=== PATIENT | female | born 1995 | race Caucasian/White ===

== ENCOUNTER → 2018-01-09 14:09 | Outpatient (CLI) | payer OTHER, SELFPAY ==
[2018-01-09 16:04] LABS: CRP < 2.90 mg/L (0.0-3.0)
[2018-01-11 19:07] LABS: Endomysial Antibody IgA Negative (Negative); Immunoglobulin A 80 mg/dL (87-352)
[2018-01-12 11:42] LABS: t-Transglutaminase IgA <2 U/mL (0-3)
== END ==
PROVIDERS: Family Provider Family Medicine; PCP Family Medicine; Referring Provider Internal Medicine Gastroenterology; Visit Provider Internal Medicine Gastroenterology
DX: R10.9 Unspecified abdominal pain (principal)
CPT/HCPCS: 36415; 82784; 83516; 86140; 86255

== ENCOUNTER → 2018-01-23 08:32 | Outpatient (CLI) | payer OTHER, SELFPAY ==
--- NOTE | 2018-01-23 08:36 | RAD_ITS ---
PROCEDURE: SMALL BOWEL SERIES DATE OF EXAMINATION: January 23, 2018.. INDICATION: Female, 22 years old. Left upper quadrant and right lower quadrant pain. IBS. PHYSICIAN: Adolfo Saenz M.D. TECHNIQUE: Radiographic and fluoroscopic images were taken of the small intestine following the ingestion of barium. COMPARISON: None. FINDINGS: A preliminary supine KUB was obtained. Moderate amount of fecal material is seen in the colon. The osseous structures are normal. The patient orally ingested approximately 12 ounces of thin barium Normal visualized fundus, body, and antrum of the stomach. Normal duodenal bulb, C-loop, and proximal jejunum. Normal visualized mucosal folds of the jejunum and ileum. There are no demonstrated dilatations, strictures, or masses of the small intestine. There is no mass displacement of the loops of small intestine. There is a normal motor pattern with barium reaching the colon within approximately 30 minutes. Spot films under fluoroscopic observation demonstrated a normal terminal ileum and ileocecal valve. RAD/Small Bowel Series Only IMPRESSION: Normal small bowel series. Electronically Signed: Adolfo Saenz MD at 13:23 EST Tel [phone], Service support ,
[2018-01-23 13:27] LABS: T4 Free Direct 0.97 ng/dL (0.76-1.46); Thyroid Stim Hormone (TSH) 1.29 uIU/mL (0.358-3.74)
--- OUTSIDE RECORDS SUMMARY | 2018-04-26 09:05 | XMS RPT_ITS ---
:1995 Author Organization [place] Support Name Relationship Address Phone CONNER KWAN Unavailable [address] + [place] [address] [facility] Unavailable [address] + [place] [address] AQUILESCONNER Unavailable [address] + [place] [address] JACOB YOUNG Unavailable [address] + [place] [address] [facility] Unavailable [address] + [place] [address] CONNER KWAN Unavailable Unavailable + JACOB YOUNG Unavailable [address] + [place] [address] JACOB YOUNG Unavailable [address] + [place] [address] CONNER KWAN Unavailable Unavailable + JACOB YOUNG Unavailable [address] + [place] [address] JACOB YOUNG Unavailable [address] + [place] [address] CONNER KWAN Unavailable Unavailable + JACOB YOUNG Unavailable [address] + [place] [address] JACOB YOUNG Unavailable [address] + [place] [address] CONNER KWAN Unavailable Unavailable + JACOB YOUNG Unavailable [address] + [place] [address] JACOB YOUNG Unavailable [address] + [place] [address] CONNER KWAN Unavailable Unavailable + JACOB YOUNG Unavailable [address] + [place] [address] JACOB YOUNG Unavailable [address] + [place] [address] CONNER KWAN Unavailable Unavailable + JACOB YOUNG Unavailable [address] + [place] [address] JACOB YOUNG Unavailable [address] + [place] [address] CONNER KWAN Unavailable Unavailable + JACOB YOUNG Unavailable [address] + [place] [address] JACOB YOUNG Unavailable [address] + [place] [address] CONNER KWAN Unavailable Unavailable + JACOB YOUNG Unavailable [address] + [place] [address] JACOB YOUNG Unavailable [address] + [place] [address] CONNER KWAN Unavailable Unavailable + JACOB YOUNG Unavailable [address] + [place] [address] JACOB YOUNG Unavailable [address] + [place] [address] CONNER KWAN Unavailable Unavailable + JACOB YOUNG Unavailable [address] + [place] [address] JACOB YOUNG Unavailable [address] + [place] [address] Care Team Providers Name Role Phone MENDEZ ALCANTARA MD Attending Unavailable MEDNEZ ALCANTARA MD Primary Care Unavailable KINSEY HERZOG MD Attending MENDEZ Melgar MD Primary Care Unavailable MENDEZ ALCANTARA MD Attending Unavailable MENDEZ ALCANTARA MD Primary Care Unavailable KINSEY HERZOG MD Attending Unavailable MENDEZ ALCANTARA MD Primary Care Unavailable KINSEY HERZOG MD Attending Unavailable MENDEZ ALCANTARA MD Primary Care Unavailable MENDEZ ALCANTARA MD Attending Unavailable MENDEZ ALCANTARA MD Primary Care Unavailable KINSEY HERZOG MD Attending Unavailable MENDEZ ALCANTARA MD Primary Care Unavailable CORINNE PRINCE, MSRosita GROSSMAN Attending Unavailable MENDEZ ALCANTARA MD Primary Care Unavailable CORINNE PRINCE, MSRosita GROSSMAN Attending Unavailable MENDEZ ALCANTARA MD Primary Care Unavailable CORINNE PRINCE, MSRosita GROSSMAN Attending Unavailable MENDEZ ALCANTARA MD Primary Care Unavailable Ming, Dereck Attending Unavailable Ming, Dereck Referring Unavailable MENDEZ ALCANTARA Primary Care Unavailable Jabour, Dereck Attending Unavailable Jakalee, Dereck Referring Unavailable MENDEZ ALCANTARA Primary Care Unavailable PROBLEMS PROBLEMS DATE TYPE CONDITION / CODE ATTENDING STATUS SOURCE 01/23/2018 Unknown E03.9 - Jabour, Dereck Active [place] Hypothyroidism, [facility] unspecified / Hospital E03.9(ICD-10) Repository 10/17/2017 Admitting Right lower CORINNE PRINCE, MS. Active [facility] Diagnosis quadrant pain / [facility] R10.31(ICD-10) Repository 07/16/2017 Admitting Low back pain / ROSENDA ROSA, Active [facility] Diagnosis M54.5(ICD-10) [facility] Repository 07/06/2017 Admitting Hypothyroidism, MARICRUZ ROSA, Active [facility] Diagnosis unspecified / MENDEZ Tam [facility] E03.9(ICD-10) Repository 06/20/2017 Admitting Dysuria / ROSENDA ROSA, Active [facility] Diagnosis R30.0(ICD-10) [facility] Repository PROCEDURES PROCEDURES No Procedure Records FoundRESULTS RESULTS THYROID STIM HORMONE Collected: 01/23/2018 Status: F Source: [facility] (TSH) 11:36 AM [facility] REPOSITORY TYPE CODE TESTS RESULT OUT OF RANGE REFERENCE UNITS LAB L501.9520 0.358-3.74 uIU/mL Normal TSH 1.29 Performed By: #### L501.9520, L506.0400 #### [facility] [address] [place], [place], [address] T4 FREE DIRECT Collected: 01/23/2018 Status: F Source: ALEXA 11:36 AM [facility] REPOSITORY TYPE CODE TESTS RESULT OUT OF RANGE REFERENCE UNITS LAB L506.0400 0.76-1.46 ng/dL Normal T4 FREE 0.97 DIRECT Performed By: #### L501.9520, L506.0400 #### [facility] [address] [place], [address] SMALL BOWEL SERIES Observed: 01/23/2018 Status: F Source: ALEXA ONLY 8:36 AM [facility] REPOSITORY [facility] Imaging Services [address] [address] Small Bowel Series Only MR#: [id number] Acct: [id number] Name: NIKUNJ KWAN Rep #: [id number] : 1995 F 22 From: Adolfo Saenz MD PCP: Mendez Alcantara MD Status: REG CLI Study: Small Bowel Series Only Date of Exam: 01/23/18 Exam# [id number] Ordering Dr: Dereck Lai MD PROCEDURE: SMALL BOWEL SERIES DATE OF EXAMINATION: January 23, 2018.. INDICATION: Female, 22 years old. Left upper quadrant and right lower quadrant pain. IBS. PHYSICIAN: Adolfo Saenz M.D. TECHNIQUE: Radiographic and fluoroscopic images were taken of the small intestine following the ingestion of barium. COMPARISON: None. FINDINGS: A preliminary supine KUB was obtained. Moderate amount of fecal material is seen in the colon. The osseous structures are normal. The patient orally ingested approximately 12 ounces of thin barium Normal visualized fundus, body, and antrum of the stomach. Normal duodenal bulb, C-loop, and proximal jejunum. Normal visualized mucosal folds of the jejunum and ileum. There are no demonstrated dilatations, strictures, or masses of the small intestine. There is no mass displacement of the loops of small intestine. There is a normal motor pattern with barium reaching the colon within approximately 30 minutes. Spot films under fluoroscopic observation demonstrated a normal terminal ileum and ileocecal valve. RAD/Small Bowel Series Only IMPRESSION: Normal small bowel series. Electronically Signed: Adolfo Saenz MD at 13:23 EST Tel [phone], Service support , CC: Mendez Alcantara MD; Dereck Lai Cob Sawyer: Signed CRP Collected: 01/09/2018 Status: F Source: SERAFINA 2:17 PM [facility] REPOSITORY TYPE CODE TESTS RESULT OUT OF RANGE REFERENCE UNITS LAB L501.6710 0.0-3.0 mg/L Normal < 2.90 C-REACTIVE PROT Result Comment: C-Reactive Protein (CRP) provides useful information for the diagnosis, therapy and monitoring of inflammatory processes and associated diseases. For the evaluation of Relative Risk for Cardiovascular Disease, a High Sensitivity CRP (HSCRP) should be ordered. Performed By: #### L501.6710 #### [facility] [address] [place], [place], [address] CELIAC DISEASE Collected: 01/09/2018 Status: F Source: SERAFINA PROFILE 2:17 PM [facility] REPOSITORY TYPE CODE TESTS RESULT OUT OF RANGE REFERENCE UNITS LAB L3200.1400 87-352 mg/dL Low IMMUNO A 80 LAB L3410.2900 0-3 U/mL Normal tTG IGA <2 Result Comment: Negative 0 - 3 Weak Positive 4 - 10 Positive >10 Tissue Transglutaminase (tTG) has been identified as the endomysial antigen. Studies have demonstr- ated that endomysial IgA antibodies have over 99% specificity for gluten sensitive enteropathy. LAB L3410.2975 Negative Normal ENDOMYSIAL IGA Negative Performed By: #### L3410.2400 #### [facility] (refer to report for specific site) refer to report for address and phone number US ABDOMEN COMPLETE Observed: 10/25/2017 Status: F Source: [facility] 5:00 PM [facility] REPOSITORY ORIGINAL ULTRASOUND ABDOMEN COMPLETE CLINICAL STATEMENT: RLQ PAIN COMPARISON: CT 03/28/2011 FINDINGS: The liver is normal in size and echogenicity. There is no intra or extrahepatic bile duct dilatation. The common duct is 3 mm at the gonzalo hepatis. The gallbladder is sonographically normal without calculus, wall thickening or tenderness. The visualized pancreas is unremarkable although its tail portion is obscured by bowel gas artifacts. The splee n is normal in size and echogenicity. No ascites. Limited survey images of the kidneys show normal echogenicity and no pelvicaliectasis. . Visualized IVC and aorta are not abnormally dilated. IMPRESSION: No significant findings. Interpreted By: Denys Thomas MD Preliminary Report By: Denys Thomas MD Electronically Signed By: Denys Thomas MD Dictated Date: 10/26/2017 10:20:08 AM Prelim Date: 10/26/2017 10:20:08 AM Sign Date: 10/26/2017 10:25:19 AM CMP Collected: 10/17/2017 Status: F Source: [facility] 2:27 PM [facility] REPOSITORY TYPE CODE TESTS RESULT OUT OF REFERENCE UNITS RANGE LAB GLU(LOINC) 70-105 mg/dL Glucose Level 87 LAB NA(LOINC) 136-145 mmol/L Sodium Level 140 LAB K(LOINC) 3.5-5.1 mmol/L Potassium Level 4.3 LAB CL(LOINC) 98-107 mmol/L Chloride 103 LAB CO2(LOINC) 22-29 mmol/L CO2 26 LAB EBAL(LOINC mEq/L ) Electrolyte Balance 11.0 LAB BUN(LOINC) 7-18 mg/dL BUN 11 LAB CRE(LOINC) 0.55-1.02 mg/dL Creatinine Lvl (s) 0.85 LAB BC(LOINC) 7-27 ratio BUN/Creatinine 13 Ratio LAB CA(LOINC) 8.4-10.2 mg/dL Calcium Lvl 9.4 LAB PROT(LOINC 6.4-8.2 G/dL ) Total Protein 7.3 LAB ALB(LOINC) 3.5-5.0 G/dL Albumin Level 4.4 LAB GLB(LOINC) G/dL Globulin 2.9 LAB AG(LOINC) 1.1-2.5 ratio A/G Ratio 1.5 LAB BILT(LOINC 0.2-1.0 mg/dL ) Bili Total 0.7 LAB AP(LOINC) 40-135 U/L Alk Phos 71 LAB AST(LOINC) 10-40 U/L AST/SGOT 18 LAB ALT(LOINC) 10-35 U/L ALT/SGPT 30 Performed By: #### CMP, GFR #### [address] [address] #### CBC, ADIFF, ANEU #### [address] [address] .GFR Collected: 10/17/2017 Status: F Source: [facility] 2:27 PM [facility] REPOSITORY TYPE CODE TESTS RESULT OUT OF REFERENCE UNITS RANGE LAB GFRAA(LOINC ml/min/1.73 ) sqm GFR 101 Trinidadian Result Comment: GFR Population mean for , Non- Americans Ages 20-29 = 116 mL/min/1.73 sq.m. Ages 30-39 = 107 mL/min/1.73 sq.m. Ages 40-49 = 99 mL/min/1.73 sq.m. Ages 50-59 = 93 mL/min/1.73 sq.m. Ages 60-69 = 85 mL/min/1.73 sq.m. Ages 70+ = 75 mL/min/1.73 sq.m. Chronic Kidney Disease: Less than 60 mL/min/1.73 square meters End Stage Renal Disease: Less than 15 mL/min/1.73 square meters LAB GFRNO(LOINC) ml/min/1.73sqm GFR Non- 84 Result Comment: GFR Population mean for , Non- Americans Ages 20-29 = 116 mL/min/1.73 sq.m. Ages 30-39 = 107 mL/min/1.73 sq.m. Ages 40-49 = 99 mL/min/1.73 sq.m. Ages 50-59 = 93 mL/min/1.73 sq.m. Ages 60-69 = 85 mL/min/1.73 sq.m. Ages 70+ = 75 mL/min/1.73 sq.m. Chronic Kidney Disease: Less than 60 mL/min/1.73 square meters End Stage Renal Disease: Less than 15 mL/min/1.73 square meters Performed By: #### CMP, GFR #### [facility] [address] [place] [address] #### CBC, ADIFF, ANEU #### [address] [address] CBC Collected: 10/17/2017 Status: F Source: [facility] 2:27 PM [facility] REPOSITORY TYPE CODE TESTS RESULT OUT OF REFERENCE UNITS RANGE LAB WBC(LOINC) 4.60-10.80 10 3/mcL WBC 6.90 LAB RBCCT(LOINC 4.20-5.40 10 6/mcL ) RBC 4.91 LAB HGB(LOINC) 12.0-16.0 G/dL Hgb 14.5 LAB HCT(LOINC) 37.0-47.0 % Hct 41.7 LAB MCV(LOINC) 80.0-94.0 fL MCV 84.9 LAB MCH(LOINC) 27.0-31.2 pg MCH 29.6 LAB MCHC(LOINC) 33.0-37.0 G/dL MCHC 34.9 LAB RDW(LOINC) 11.5-14.5 % RDW 12.8 LAB PLT(LOINC) 130-400 10 3/mcL Platelet 197 LAB MPV(LOINC) 7.4-10.4 fL MPV 9.5 Performed By: #### CMP, GFR #### [place] [address] #### CBC, ADIFF, ANEU #### [address] [address] .AUTO DIFF Collected: 10/17/2017 Status: F Source: [facility] 2:27 PM [facility] REPOSITORY TYPE CODE TESTS RESULT OUT OF REFERENCE UNITS RANGE LAB ROSIE(LOINC) 37.0-80.0 % Neutrophil % 72.5 LAB LYM(LOINC) 10.0-50.0 % Lymphocyte % 20.8 LAB MON(LOINC) 1.7-13.0 % Monocyte % 5.2 LAB EO(LOINC) 0.0-7.0 % Eosinophil % 0.8 LAB BAS(LOINC) 0.0-2.5 % Basophil % 0.7 LAB ABLYM(LOIN 0.77-3.85 10 3/mcL C) Lymphocyte, 1.40 Absolute LAB KATHLEEN(LOINC 0.15-1.00 10 3/mcL ) Monocyte, 0.40 Absolute LAB AEOS(LOINC 0.00-0.40 10 3/mcL ) Eosinophil, 0.10 Absolute LAB ABAS(LOINC 0.00-0.19 10 3/mcL ) Basophil, 0.00 Absolute Performed By: #### CMP, GFR #### [address] [address] #### CBC, ADIFF, ANEU #### [address] [address] .NEUABS Collected: 10/17/2017 Status: F Source: [facility] 2:27 PM [facility] REPOSITORY TYPE CODE TESTS RESULT OUT OF REFERENCE UNITS RANGE LAB ANEU(LOINC) 2.85-6.16 10 3/mcL Neutrophil, 5.00 Absolute Performed By: #### CMP, GFR #### [facility] [address] [place] [address] #### CBC, ADIFF, ANEU #### [place] [address] [place], [place] [address] PELVIS NON-OB Observed: 09/21/2017 Status: F Source: [facility] COMPLETE 3:00 PM [facility] REPOSITORY ORIGINAL US PELVIS NON-OB TRANSABDOMINAL ONLY Clinical Statement: Pelvic pain. Patient declined transvaginal imaging. Comparison: CT abdomen/pelvis 03/28/2011. FINDINGS: UTERUS: 7.6 x 2.8 x 4.3 cm, anteverted Myometrium: Homogeneous Endometrium: 5 mm, not thickened (double echo). Cervix: Unremarkable Free fluid: None OVARIES: Right: 4.1 x 2.8 x 2.4 cm. Blood flow demonstrated. Small follicles present. Dominant, 2.2 cm follicle is physiologic. Left: 1.8 x 1 x 1.7 cm. Blood flow demonstrated. Small follicles present. No adnexal mass. IMPRESSION: No acute finding. I have personally reviewed the images of this examination and agree with the resident's findings and interpretation. Interpreted By: Carmita Blanco MD Preliminary Report By: Teresa Figueroa DO Electronically Signed By: Carmita Blanco MD Dictated Date: 09/21/2017 3:03:30 PM Prelim Date: 09/21/2017 3:33:45 PM Sign Date: 09/21/2017 4:38:35 PM VL VENOUS UNILATERAL Observed: 07/18/2017 Status: F Source: [facility] LOWER EXT FOR DVT 9:09 AM [facility] REPOSITORY ORIGINAL DUPLEX LOWER EXTREMITY VENOUS DOPPLER: Right-sided Clinical Statement: calf pain , Comparison: None Findings: The RIGHT femoral and popliteal veins and the proximal visualized portions of the posterior tibial, peroneal, soleal and gastrocnemius veins show no direct or indirect evidence of thrombosis. There is n ormal phasic spontaneous flow in these veins which are also compressible. Spectral analysis shows normal flow augmentation in the superficial femoral and popliteal veins with physiologic maneuvers. The greater and lesser saphenous veins are also patent. IMPRESSION: No evidence of deep vein thrombosis in RIGHT lower extremity. Interpreted By: Denys Thomas MD Preliminary Report By: Denys Thomas MD Electronically Signed By: Denys Thomas MD Dictated Date: 07/18/2017 9:54:34 AM Prelim Date: 07/18/2017 9:54:34 AM Sign Date: 07/18/2017 9:54:48 AM UA Collected: 07/16/2017 Status: F Source: [facility] 12:17 PM [facility] REPOSITORY TYPE CODE TESTS RESULT OUT OF REFERENCE UNITS RANGE LAB SPCUA(LOIN C) UA Specimen Type Clean Catch LAB CLRUA(LOIN C) UA Color YELLOW LAB APPUA(LOIN C) UA Appear CLEAR LAB SGUA(LOINC ) UA Spec Grav 1.025 LAB GLUA(LOINC mg/dL ) UA Glucose NEGATIVE LAB BILUA(LOIN C) UA Bili NEGATIVE LAB KETUA(LOIN mg/dL C) UA Ketones NEGATIVE LAB BLDUA(LOIN C) UA Blood TRACE-LYSED LAB PHUA(LOINC ) UA pH 6.5 LAB PROUA(LOIN mg/dL C) UA Protein NEGATIVE LAB UROUA(LOIN E.U./dL C) UA Urobilinogen 0.2 LAB NITUA(LOIN C) UA Nitrite NEGATIVE LAB LEUUA(LOIN C) UA Leuk Est NEGATIVE Performed By: #### UA, UAMICAO #### [place] [address] .URINALYSIS MICROSCOPIC Collected: 07/16/2017 Status: F Source: [facility]) 12:17 PM [facility] REPOSITORY TYPE CODE TESTS RESULT OUT OF REFERENCE UNITS RANGE LAB WBCUA(LOIN None Seen /hpf C) UA WBC None Seen LAB RBCUA(LOIN None Seen /hpf C) UA RBC None Seen LAB EPIUA(LOIN None Seen /hpf C) UA Squam Epithelial None Seen Performed By: #### UA, UAMICAO #### [place] [address] Observed: 07/16/2017 Status: F Source: [facility] 12:17 PM [facility] REPOSITORY . MICRO - Microbiology PROCEDURE: Urine Culture [*1] SOURCE: Urine BODY SITE: COLLECTED DATE/TIME: 07/16/2017 12:17 EDT RECEIVED DATE/TIME: 07/16/2017 20:12 EDT START DATE/TIME: 07/16/2017 20:13 EDT FREE TEXT SOURCE: FINAL REPORTS Final Report [] Verified Date/Time/Personnel: 07/18/2017 07:32 EDT 2,000 organisms per mL Mixed without predominant isolate(s). Sensitivity Testing not indicated. Probably contamination. Repeat culture suggested. PRELIMINARY REPORTS Preliminary Report [] Verified Date/Time/Personnel: 07/17/2017 07:43 EDT No growth to date Performing Locations *1: This test was performed at: [facility], [address] [place] [address], [address] [place] [address] Performed By: #### CUR #### [place] [address] HGMP Collected: 07/16/2017 Status: F Source: [facility] 11:36 AM [facility] REPOSITORY TYPE CODE TESTS RESULT OUT OF REFERENCE UNITS RANGE LAB WBC(LOINC) 4.60-10.80 10 3/mcL WBC 6.50 LAB RBCCT(LOINC 4.20-5.40 10 6/mcL ) RBC 5.13 LAB HGB(LOINC) 12.0-16.0 G/dL Hgb 14.6 LAB HCT(LOINC) 37.0-47.0 % Hct 43.7 LAB MCV(LOINC) 80.0-94.0 fL MCV 85.2 LAB MCH(LOINC) 27.0-31.2 pg MCH 28.5 LAB MCHC(LOINC) 33.0-37.0 G/dL MCHC 33.4 LAB RDW(LOINC) 11.5-14.5 % RDW 13.0 LAB PLT(LOINC) 130-400 10 3/mcL Platelet 181 LAB MPV(LOINC) 7.4-10.4 fL MPV 9.5 Performed By: #### HGMP, BMP, GFR #### [address] [address] #### ESR #### [place] [address] BMP Collected: 07/16/2017 Status: F Source: [facility] 11:36 AM [facility] REPOSITORY TYPE CODE TESTS RESULT OUT OF REFERENCE UNITS RANGE LAB GLU(LOINC) 70-105 mg/dL Glucose Level 105 LAB NA(LOINC) 136-146 mEq/L Sodium Level 137 LAB K(LOINC) 3.5-5.1 mEq/L Potassium Level 4.4 LAB CL(LOINC) 98-107 mEq/L Chloride 103 LAB CO2(LOINC) 22-29 mEq/L CO2 27 LAB EBAL(LOINC mEq/L ) Electrolyte Balance 7.0 LAB BUN(LOINC) 7.0-18.0 mg/dL BUN 11.8 LAB CRE(LOINC) 0.6-1.2 mg/dL Creatinine Lvl (s) 0.8 LAB BC(LOINC) 7-27 ratio BUN/Creatinine 15 Ratio LAB CA(LOINC) 8.4-10.2 mg/dL Calcium Lvl 9.0 Performed By: #### HGMP, BMP, GFR #### [address] [address] #### ESR #### [address] [address] .GFR Collected: 07/16/2017 Status: F Source: [facility] 11:36 AM [facility] REPOSITORY TYPE CODE TESTS RESULT OUT OF REFERENCE UNITS RANGE LAB GFRAA(LOINC ml/min/1.73 ) sqm GFR 109 Trin[place]adian Result Comment: GFR Population mean for , Non- Americans Ages 20-29 = 116 mL/min/1.73 sq.m. Ages 30-39 = 107 mL/min/1.73 sq.m. Ages 40-49 = 99 mL/min/1.73 sq.m. Ages 50-59 = 93 mL/min/1.73 sq.m. Ages 60-69 = 85 mL/min/1.73 sq.m. Ages 70+ = 75 mL/min/1.73 sq.m. Chronic Kidney Disease: Less than 60 mL/min/1.73 square meters End Stage Renal Disease: Less than 15 mL/min/1.73 square meters LAB GFRNO(LOINC) ml/min/1.73sqm GFR Non- >60 Result Comment: GFR Population mean for , Non- Americans Ages 20-29 = 116 mL/min/1.73 sq.m. Ages 30-39 = 107 mL/min/1.73 sq.m. Ages 40-49 = 99 mL/min/1.73 sq.m. Ages 50-59 = 93 mL/min/1.73 sq.m. Ages 60-69 = 85 mL/min/1.73 sq.m. Ages 70+ = 75 mL/min/1.73 sq.m. Chronic Kidney Disease: Less than 60 mL/min/1.73 square meters End Stage Renal Disease: Less than 15 mL/min/1.73 square meters Performed By: #### HGMP, BMP, GFR #### [address] [address] #### ESR #### [place] [id number] ESR Collected: 07/16/2017 Status: F Source: [facility] 11:36 AM [facility] REPOSITORY TYPE CODE TESTS RESULT OUT OF REFERENCE UNITS RANGE LAB ESR(LOINC) 0-20 mm/hr Erythrocyte Sed Rate 3 Performed By: #### HGMP, BMP, GFR #### [address] [address] #### ESR #### [place] [address] TSH Collected: 07/06/2017 Status: F Source: [facility] 3:05 [facility] REPOSITORY TYPE CODE TESTS RESULT OUT OF RANGE REFERENCE UNITS LAB TSH(LOINC) 0.27-4.20 mcIU/mL TSH 0.65 Performed By: #### TSH, FT4, FT3 #### [address] [address] FT4 Collected: 07/06/2017 Status: F Source: [facility] 3:05 [facility] REPOSITORY TYPE CODE TESTS RESULT OUT OF RANGE REFERENCE UNITS LAB FT4(LOINC) 0.6-1.7 ng/mL Free T4 1.6 Performed By: #### TSH, FT4, FT3 #### [address] [address] FT3 Collected: 07/06/2017 Status: F Source: [facility] 3:05 [facility] REPOSITORY TYPE CODE TESTS RESULT OUT OF RANGE REFERENCE UNITS LAB FT3(LOINC) 2.3-4.0 pg/mL Free T3 2.7 Performed By: #### TSH, FT4, FT3 #### [facility] [address] [place], [place] [address] Observed: 06/20/2017 Status: F Source: [facility] 10:30 AM [facility] REPOSITORY . MICRO - Microbiology PROCEDURE: Urine Culture [*1] SOURCE: Urine BODY SITE: COLLECTED DATE/TIME: 06/20/2017 10:30 EDT RECEIVED DATE/TIME: 06/20/2017 21:06 EDT START DATE/TIME: 06/20/2017 21:06 EDT FREE TEXT SOURCE: FINAL REPORTS Final Report [] Verified Date/Time/Personnel: 06/22/2017 07:33 EDT 20,000 organisms per mL Mixed without predominant isolate(s). Sensitivity Testing not indicated. Probably contamination. Repeat culture suggested. PRELIMINARY REPORTS Preliminary Report [] Verified Date/Time/Personnel: 06/21/2017 08:14 EDT No growth to date Performing Locations *1: This test was performed at: [facility], [address] [place] [address], [address] [place] [address] Performed By: #### CUR #### [place] [address] MRI BRAIN W/O Observed: 04/11/2017 Status: F Source: [facility] 3:00 PM [facility] REPOSITORY ORIGINAL MRI BRAIN W/O CONTRAST Clinical Statement: MIGRAINES TECHNIQUE: Sagittal T1, axial FLAIR, T2 and diffusion-weighted images of the brain with ADC maps. COMPARISON: CT sinus 09/22/2016 FINDINGS: Diffusion imaging shows no hyperacute, acute, or early subacute infarction. There is no mass, mass-effect, or abnormal extra- axial fluid collection. No cerebellar tonsillar ectopia. Midline st ructures appear unremarkable. There is no abnormal brain parenchymal signal. The ventricles are normal in size, shape and position. There are preserved signal voids in the larger intracranial vessels. The mastoid air cells are clear . There is an air-fluid level in the right maxillary sinus consistent with acute sinusitis. The marrow signal pattern is unremarkable. IMPRESSION: 1. Unremarkable MRI appearance of the brain. 2. Air-fluid level in the right maxillary sinus consistent with acute sinusitis. Interpreted By: Connie Castorena Preliminary Report By: Connie Castorena Electronically Signed By: Connie Castorena Dictated Date: 04/11/2017 7:32:51 PM Prelim Date: 04/11/2017 7:32:51 PM Sign Date: 04/11/2017 7:35:56 PM ALLERGIES ALLERGIES No Allergies Records FoundENCOUNTERS ENCOUNTERS ADMIT/DISCHARGE ACCOUNT NUMBER ADMITTING ENCOUNTER LOCATION SOURCE CLASS 01/23/2018 [id number] Ambulatory [facility] ding:RAD Repository 01/09/2018 [id number] Ambulatory [facility] ding:MTLAB Repository 11/20/2017 [id number] Ambulatory B[facility] Repository 10/25/2017/10/26/19 [id number] Ambulatory [facility] [address] [place] [address] ding:RAD [facility] Repository 10/17/2017/10/22/19 [id number] Ambulatory [facility] [address] [place] [address] ding:DROP [facility] Repository 09/21/2017/09/22/19 [id number] Ambulatory [facility] [address] [place] [address] ding:[facility] Repository 07/18/2017/07/19/19 [id number] Ambulatory [facility] [address] [place] [address] ding:[facility] Repository 07/16/2017/07/21/19 [id number] Ambulatory [facility] [address] [place] [address] ding:[facility] Repository 07/16/2017/07/17/19 [id number] Ambulatory [facility] [address] [place] [address] ding:OLAB [facility] Repository 07/06/2017/07/11/19 [id number] Ambulatory [facility] [address] [place] [address] ding:DR[facility] Repository 06/20/2017/06/25/19 [id number] Ambulatory [facility] [address] [place] [address] ding:DR[facility] Repository 04/11/2017/04/12/19 [id number] Ambulatory [facility] [address] [place] [address] ding:RAD [facility] Repository PAYERS PAYERS ENCOUNTER GUARANTOR PAYER SUBSCRIBER SOURCE 01/23/2018 NIKUNJ A Primary NIKUNJ A [place] [id number] NAOMY Insurance:MEDICAL ROESELDOB: [facility] [id number] Hospital 11303Zqv: 330) Number: Repository [phone] () [id number] Date:2379-75-36[place] [id number]: 01/23/2018 Secondary NOT GIVENUNK [place] Insurance:SELF PAY [facility] Number: Effective Repository Date:2018-01-21 01/09/2018 NIKUNJ A Primary NIKUNJ A [place] [id number] NAOM[place] Insurance[place]MEDICAL [place] [facility] [id number] Hospital [address]Ozm: 330) Number: Repository [phone] () [id number] Date:[id number] [id number]: 01/09/2018 Secondary NOT GIVENUNK [place] Insurance:SELF PAY [facility] Number: Effective Repository Date:2018-01-09 11/20/2017 NIKUNJ A Primary MAY A [place] [employer] ROESELDOB: Insurance:MEDICAL ROESELDOB: [facility] [address] [id number] Repository NAOMY Number: 1 [place] [id number] [facility]Ñ[place] [address]~SIS_COOPER Date:2017-11-08Tel: ([phone]) [email or web address]: [phone] 000-0000 () Name:BPO BOX () [address] [place] [address] [id number]: 10/25/2017 NIKUNJ A Primary NIKUNJ A [place] [employer] ROESELDOB: Insurance:MEDICAL ROESELDOB: [facility] [address] [id number] Repository NAOMY Number: 1 [place] [place] [id number] [address]~SIS_COOPER Date:2017-10-18Tel: (000) [email or web address]el: [phone] [phone] (WP) Name:BPO BOX () [address] [place] [address] [id number]: 10/17/2017 NIKUNJ A Primary NIKUNJ A [facility] ROESELDOB: Insurance:MEDICAL ROESELDOB: [facility] [place] [address] [id number] Repository NAOMY Number: [address] [place] [place] [id number] [address]~SIS_COOPER Date:2017-10-17Tel: (000) [email or web address]el: [phone] 000-0000 (WP) Name:BPO BOX () [address] [place] [address] [id number]: 09/21/2017 NIKUNJ A Primary NIKUNJ A [facility] ROESELDOB: Insurance:MEDICAL ROESELDOB: [facility] [place] [address] [id number] Repository NAOMY Number: 1 [place] [place] [id number] [address]~SIS_COOPER Date:2017-09-14Tel: (000) [email or web address]el: [id number] 000-0000 (WP) Name:BPO BOX () [address] [place] [address] 71948DZ: 07/18/2017 NIKUNJ A Primary NIKUNJ A [facility] ROESELDOB: Insurance:MEDICAL ROESELDOB: [facility] [place] [address] [id number] Repository NAOMY Number: 1 [place] [place] [id number] [address]~SIS_COOPER Date:2017-07-18Tel: (000) [email or web address]: [id number] 000-0000 (WP) Name:BPO BOX (HP) [address] [address]LG: 07/16/2017 NIKUNJ A Primary NIKUNJ A [facility] ROESELDOB: Insurance:MEDICAL ROESELDOB: [facility] [place] [address] [id number] Repository NAOMY Number: 1 [place] [place] [id number] [address]~SIS_COOPER Date:2017-07-16Tel: (000) [email or web address]el: [phone] 000-0000 (WP) Name:BPO BOX (HP) [address] [place] [place] [address]MC: 07/16/2017 NIKUNJ A Primary NIKUNJ A [facility] ROESELDOB: Insurance:MEDICAL ROESELDOB: [facility] [place] [address] [id number] Repository NAOMY Number: 1 [place] [place] [id number] [address]~SIS_COOPER Date:2017-07-16Tel: (000) [email or web address]el: [phone] 000-0000 (WP) Name:BPO BOX (HP) [address] [place], [place] [address]QP: 07/06/2017 NIKUNJ A Primary NIKUNJ A [facility] ROESELDOB: Insurance:MEDICAL ROESELDOB: [facility] [place] [address] [id number] Repository NAOMY Number: 1 [place] [place] [id number] [place] [address]~SIS_COOPER Date:2017-07-06Tel: (000) [email or web address]el: [phone] 000-0000 (WP) Name:BPO BOX (HP) [address] [place] [place] [address]KG: 06/20/2017May A Primary MAY A [facility] ROESELDOB: Insurance:MEDICAL ROESELDOB: [facility] [place] [address] [id number] Repository NAOMY Number: 1 [address] [place] [id number] [address]~SIS_COOPER Date:2017-06-20Tel: [phone]) [email or web address]el: [id number] 000-0000 (WP) Name:BPO BOX () [address] [place] [address]78[address]WC: 04/11/2017 [facility]J A [facility]MED[facility] ROESELDOB: [facility] [place] [address] [id number] Repository NAOMY Number: [address] [place] [id number] [place] [address]~SIS_COOPER Date:2017-03-29Tel: (278) [email or web address]ITALel: [phone] 000-0000 (IN) Name:BPO BOX () [address] [place] [address] 82157JE:
== END ==
PROVIDERS: Family Provider Family Medicine; PCP Family Medicine; Referring Provider Internal Medicine Gastroenterology; Visit Provider Internal Medicine Gastroenterology
DX: R10.84 Generalized abdominal pain (principal); K58.0 Irritable bowel syndrome with diarrhea; K58.1 Irritable bowel syndrome with constipation; E03.9 Hypothyroidism, unspecified
CPT/HCPCS: 36415; 74250; 84439; 84443

== ENCOUNTER → 2023-02-14 | Outpatient (CLI) | payer OTHER, SELFPAY ==
[2023-02-14 10:35] LABS: Absolute Lymphocyte Count 1.24 X10^3/uL (0.83-4.51); Absolute Neutrophil Count 5.4 X10^3/uL (2.0-7.7); Basophil# 0.04 X10^3/uL; Basophil% 0.6 % (0-1); Eosinophil# 0.03 X10^3/uL; Eosinophils% 0.4 % (0-5); Hematocrit 41.2 % (37-47); Hemoglobin 13.6 g/dL (12.0-15.0); Lymphocyte # 1.24 X10^3/ul (0.83-4.51); Lymphocyte % 17.6 % (19-41); Mean Corpuscular Hgb 28.6 pg (27.0-32.0); Mean Corpuscular Volume 86.7 fL (81-99); Mean Platelet Vol. 10.4 fl (6.2-12.0); Monocyte# 0.36 X10^3/uL; Monocyte% 5.1 % (0-10); NRBC Flagged by Analyzer 0 % (0-5); Neutrophil # 5.37 X10^3/uL (2.7-7.7); Platelet Count 177 K/mm3 (150-450); RBC Distribution Width CV 12.3 % (11.6-14.6); RBC Distribution Width SD 39.2 fl (35.1-43.9); Red Blood Count 4.75 M/mm3 (4.2-5.4); White Blood Count 7.1 K/mm3 (4.4-11.0)
--- OUTSIDE RECORDS SUMMARY | 2023-02-14 10:35 | XMS RPT_ITS | CCD ---
Author Name Unknown Address [address] [place] [address] Organization [facility] Care Team Providers Care Rehabilitation Counselor Name Role Phone REFERRINGTIKI ESPERANZA HILL Unavailable Unavailable NGOC SUN Unavailable Unavailable LAWRENCE ALCANTARA Unavailable Unavailable MART HARMON Unavailable Unavailable LAWRENCE ALCANTARA Unavailable Unavailable LAWRENCE ALCANTARA Unavailable Unavailable ROSENDA, KINSEY Unavailable Unavailable LAWRENCE ALCANTARA Unavailable Unavailable LAWRENCE ALCANTARA Unavailable Unavailable LAWRENCE ALCANTARA Unavailable Unavailable ROSENDA KINSEY Unavailable Unavailable LAWRENCE ALCANTARA Unavailable Unavailable LAWRENCE ALCANTARA Unavailable Unavailable LAWRENCE ALCANTARA Unavailable Unavailable ROSENDA, KINSEY Unavailable Unavailable LAWRENCE ALCANTARA Unavailable Unavailable ROSENDA, KINSEY Unavailable Unavailable LAWRENCE ALCANTARA Unavailable Unavailable LAWRENCE ALCANTARA Unavailable Unavailable LAWRENCE ALCANTARA Unavailable Unavailable ROSENDA, KINSEY Unavailable Unavailable LAWRENCE ALCANTARA Unavailable Unavailable NGOC SUN Unavailable Unavailable LAWRENCE ALCANTARA Unavailable Unavailable NGOC SUN Unavailable Unavailable LAWRENCE ALCANTARA Unavailable Unavailable NGOC SUN Unavailable Unavailable LAWRENCE ALCANTARA Unavailable Unavailable Lawrence Alcantara Primary Care Provider Lawrence Alcantara Primary Care Provider [phone] Lawrence Alcantara Primary Care Provider Adriane Alcantara DO Primary Care Provider Unavailable Primary Care Provider Unavailabl e Adriane Alcantara DO Primary Care Provider Adriane Alcantara DO Primary Care Provider Theresa Watson DO Unavailable Chato ROSA, Kojo Unavailable Alcantara DO, Adirane Primary Care Provider Kojo Reis MD Unavailable KOJO REIS Attending Unavailable CHATOKOJO Nickerson Referring Unavailable ALCANTARA, ADRIANE Referring Unavailable ALCANTARA, ADRIANE Primary Care Unavailable WOJCIECH LEWIS Attending Unavailable ALCANTARA, ADRIANE Primary Care Unavailable JOHNATHANCRYS SINGHA Attending Unavailable JOHNATHAN, THERESA Referring Unavailable DESI JOSE DAVID Referring Unavailable ALCANTARA, ADRIANE Attending Unavailable ALCANTARA, ADRIANE Primary Care Unavailable ELVIA MEJIA Attending Unavailable ALCANTARA, ADRIANE Primary Care Unavailable ALCANTARA, ADRIANE Primary Care Unavailable MARAVILLAESA Attending Unavailable ALCANTARA, ADRIANE Referring Unavailable ALCANTARA, ADRIANE Attending Unavailable ALCANTARA, ADRIANE Referring Unavailable ALCANTARA, ADRIANE Primary Care Unavailable ALCANTARA, ADRIANE Referring Unavailable SERGIO, CYNTHIA Referring Unavailable ALCANTARA, ADRIANE Primary Care Unavailable ALCANTARA, ADRIANE Attending Unavailable ALCANTARA, ADRIANE Primary Care Unavailable SERGIO, CYNTHIA Attending Unavailable ALCANTARA, ADRIANE Primary Care Unavailable SCHMIDT, ANABELLA Attending Unavailable SERGIO, CYNTHIA Attending Unavailable ALCANTARA, ADRIANE Primary Care Unavailable ALCANTARA, ADRIANE Attending Unavailable ALCANTARA, ADRIANE Primary Care Unavailable ALCANTARA, ADRIANE Primary Care Unavailable AMYLYUBOVTA Attending Unavailable ALCANTARA, ADRIANE Primary Care Unavailable SCHMIDT, ANABELLA Attending Unavailable SCHMIDT, ANABELLA Referring Unavailable ALCANTARA, ADRIANE Attending Unavailable ALCANTARA, ADRIANE Primary Care Unavailable ALCANTARA, ADRIANE Primary Care Unavailable SERGIO, CYNTHIA Attending Unavailable ALCANTARA, ADRIANE Primary Care Unavailable JOHNATHAN, THERESA Attending Unavailable ALCANTARA, ADRIANE Primary Care Unavailable SHREE, SWETA Attending Unavailable ALCANTARA, ADRIANE Primary Care Unavailable SERGIO, CYNTHIA Attending Unavailable ALCANTARA, ADRIANE Primary Care Unavailable SHREE, SWETA Attending Unavailable ALCANTARA, ADRIANE Primary Care Unavailable SCHMIDT, ANABELLA Attending Unavailable ALCANTARA, ADRIANE Primary Care Unavailable SHANTE GUZMÁN Attending Unavailable ALCANTARA, ADRIANE Primary Care Unavailable ALCANTARA, ADRIANE Attending Unavailable ALCANTARA, ADRIANE Primary Care Unavailable KOJO REIS Attending Unavailable Kojo Reis MD Unavailable Allergies Allergy Classification Reported Allergen(s) Allergy Type Date of Onset Reaction(s) Facility Benzodiazepines (2 sources) ALPRAZolam Drug Allergy 9 Other (See Comments) [facility] QUEtiapine (2 sources) QUEtiapine Drug Allergy 9 Other (See Comments) [facility] (3 sources) ALPRAZolam Drug Allergy 9 Other (See Comments) [facility] [place] QUEtiapine Drug Allergy 9 Other (See Comments) [place], [place] (20 sources) Alprazolam Allergy to substance 9 Unknown [facility] (20 sources) QUEtiapine Drug Allergy 9 Other [facility] (8 sources) Nitrofurantoin Drug Allergy 3 [facility] Medications Current Medications Medication Drug Class(es) Dates Sig (Normalized) Sig (Original) acetaminophen 325 mg oral tablet (2 sources) Start: 09-15-2020 take 650 mg by mouth every six hours, then take 4000 mg by mouth every twenty-four hours 650 mg, Oral, EVERY 6 HOURS, First dose on Sun09/15/20 at 1815 Maximum dose of acetaminophen is 4000 mg from all sources in 24 hours. Completed/Discontinued Medications Medication Drug Class(es) Dates Sig (Normalized) Sig (Original) calcium chloride 0.0014 meq/ml / potassium chloride 0.004 meq/ml / sodium chloride 0.103 meq/ml / sodium lactate 0.028 meq/ml injectable solution (1 source) Start: 09-14-2020 End: 09-15-2020 Intravenous, at 125 mL/hr, CONTINUOUS, Starting on Sun09/14/20 at 1245, Labor and Delivery Desiccated Beef Liver powder (20 sources) End: 11-21-2022 Desiccated Beef Liver powder Problems Active Problems Problem Classification Problem Date Documented Da te Episodic/Chronic Anxiety disorders (1 source) Panic; Translations: [Panic attack due to exceptional stress] Chronic Asthma (20 sources) Asthma; Translations: [Unspecified asthma, uncomplicated] Onset: 09-05-2016 11-30-2016 Chronic Blindness and vision defects (5 sources) Eye / vision finding; Translations: [Unspecified visual disturbance] Onset: 09-13-2022 09-08-2022 Episodic Cardiac dysrhythmias (9 sources) Palpitations; Translations: [Palpitations] Onset: 03-08-2020 Resolved: 11-11-2020 03-08-2020 Episodic Chronic kidney disease (2 sources) Chronic kidney disease stage 2; Translations: [Chronic kidney disease, stage 2 (mild)] Chronic Diseases of white blood cells (11 sources) Neutropenia; Translations: [Neutropenia, unspecified] Onset: 08-11-2022 04-28-2022 Chronic Endometriosis (4 sources) Endometriosis (clinical); Translations: [Endometriosis, unspecified] Onset: 11-21-2022 11-21-2022 Chronic Genitourinary symptoms and ill-defined conditions (4 sources) Female stress incontinence; Translations: [Stress incontinence (female) (male)] Onset: 11-21-2022 11-21-2022 Chronic Genitourinary symptoms and ill-defined conditions (15 sources) Dysuria; Translations: [Proteinuria] Onset: 06-20-2017 Episodic Headache; including migraine (3 sources) Chronic primary headache; Translations: [Chronic primary headache] 09-08-2022 Episodic Headache; including migraine (2 sources) Headache; including migraine; Translations: [Headache, unspecified] Onset: 09-13-2022 Other circulatory disease (3 sources) Disorder of autonomic nervous system; Translations: [Orthostatic hypotension] Episodic Other complications of ; puerperium affecting management of mother (2 sources) Indication for care AND/OR intervention in labor AND/OR delivery; Translations: [Complication of labor and delivery, unspecified] Onset: 09-14-2020 Episodic Other female genital disorders (1 source) Pain in female genitalia on intercourse; Translations: [Unspecified dyspareunia] 11-21-2022 Chronic Other female genital disorders (2 sources) Unspecified dyspareunia; Translations: [Unspecified dyspareunia] Onset: 11-21-2022 Chronic Other gastrointestinal disorders (1 source) Abdominal bloating; Translations: [Abdominal distension (gaseous)] Episodic Other lower respiratory disease (1 source) Dyspnea; Translations: [Shortness of breath] 01-11-2023 Episodic Other nervous system disorders (2 sources) Other chronic pain; Translations: [Other chronic pain] Onset: 09-13-2022 Chronic Other screening for suspected conditions (not mental disorders or infectious disease) (2 sources) Other specified abnormal findings of blood chemistry; Translations: [Other specified abnormal findings of blood chemistry] Onset: 10-02-2022 Episodic Prolapse of female genital organs (3 sources) Herniation of rectum into vagina; Translations: [Rectocele] Onset: 11-21-2022 11-21-2022 Chronic Residual codes; unclassified (1 source) Gestation period, 24 weeks; Translations: [24 weeks gestation of ] Episodic Residual codes; unclassified (1 source) Gestation period, 9 weeks; Translations: [9 weeks gestation of ] 02-13-2023 Episodic Thyroid disorders (20 sources) Hypothyroidism, unspecified; Translations: [Hypothyroidism] Onset: 02-06-2008 11-30-2016 Chronic Unclassified (1 source) Unknown / UNK(Unknown) Onset: 08-07-2016 Unclassified (2 sources) Patient encounter status; Translations: [ care, antepartum] Onset: 02-27-2020 02-27-2020 Unclassified (1 source) Adenomyosis of the uterus; Translations: [Adenomyosis of the uterus] Onset: 11-21-2022 Unclassified (2 sources) Abnormal Lab; Translations: [Abnormal Lab] Onset: 01-03-2022 Unclassified (1 source) Low back pain, unspecified; Translations: [Low back pain, unspecified] Onset: 01-02-2022 Past or Other Problems Problem Classification Problem Date Documented Da te Episodic/Chronic Abdominal pain (17 sources) Right lower quadrant pain; Translations: [Left lower quadrant pain] Onset: 10-17-2017 Episodic Conditions associated with dizziness or vertigo (6 sources) Dizziness; Translations: [Dizziness and giddiness] Onset: 08-11-2022 08-02-2022 Episodic Hemorrhage during ; abruptio placenta; placenta previa (2 sources) Threatened ; Translations: [Threatened ] Onset: 12-26-2021 Episodic Nonmalignant breast conditions (20 sources) Cyst of left breast; Translations: [Solitary cyst of left breast] Onset: 06-03-2021 11-20-2021 Episodic Other circulatory disease (2 sources) Orthostatic hypotension; Translations: [Orthostatic hypotension] Onset: 07-04-2022 Episodic Other complications of ; puerperium affecting management of mother (1 source) Delivery finding; Translations: [Complication of labor and delivery, unspecified] Onset: 09-14-2020 Resolved: 11-11-2020 11-11-2020 Episodic Other complications of (4 sources) Rubella non-immune; Translations: [Rubella non-immune status, antepartum] Onset: 03-05-2020 Resolved: 11-11-2020 03-05-2020 Episodic Other complications of (3 sources) Hypothyroidism in ; Translations: [Endocrine, nutritional and metabolic diseases complicating , unspecified trimester] Onset: 02-06-2008 Resolved: 11-11-2020 Episodic Other gastrointestinal disorders (2 sources) Alteration in bowel elimination; Translations: [Change in bowel habit] Onset: 04-17-2022 Episodic Other gastrointestinal disorders (2 sources) Abdominal distension (gaseous); Translations: [Abdominal distension (gaseous)] Onset: 04-17-2022 Episodic Other gastrointestinal disorders (1 source) Change in bowel habit; Translations: [Change in bowel habit] Onset: 04-17-2022 Episodic Other lower respiratory disease (2 sources) Shortness of breath; Translations: [Shortness of breath] Onset: 04-20-2022 Episodic Other and delivery including normal (20 sources) Patient encounter status; Translations: [Encounter for supervision of normal , unspecified, unspecified trimester] Onset: 02-27-2020 Resolved: 11-11-2020 02-27-2020 Episodic Residual codes; unclassified (2 sources) Flushing; Translations: [Flushing] Onset: 04-21-2022 04-24-2022 Episodic Residual codes; unclassified (1 source) Flushing; Translations: [Flushing] Onset: 04-21-2022 Episodic Spondylosis; intervertebral disc disorders; other back problems (2 sources) Low back pain; Translations: [Low back pain] Onset: 07-16-2017 Episodic Unclassified (1 source) M79.672, M25.872 Onset: 08-07-2016 Unclassified (1 source) Adenomyosis of the uterus; Translations: [Adenomyosis of the uterus] Onset: 11-21-2022 Unclassified (1 source) Low back pain, unspecified; Translations: [Low back pain, unspecified] Onset: 01-02-2022 Results Test Name Value Interpretation Reference Range Facil ity Vital Signs Date Time Vital Sign Value Performing Clinician Dasia manley 02-13-2023 09:37-0500 Diastolic blood pressure 70 mm[Hg] Shante Guzmán MD Work Phone: [facility] 02-13-2023 09:37-0500 Heart rate 110 /min Shante Guzmán MD Work Phone: [employer] [facility] 02-13-2023 09:37-0500 Systolic blood pressure 104 mm[Hg] Shante Guzmán MD Work Phone: [facility] 02-13-2023 09:31-0500 Body height 167.6 cm Shante Guzmán MD Work Phone: [facility] 02-13-2023 09:31-0500 Body mass index (BMI) [Ratio] 27.21 kg/m2 Shante Guzmán MD Work Phone: [facility] 02-13-2023 09:31-0500 Body weight 76.48 kg Shante Guzmán MD Work Phone: [employer] [facility] 02-13-2023 09:31-0500 SaO2% (BldA) [Mass fraction] 98 % Shante Guzmán MD Work Phone: [employer] [facility] 11-21-2022 14:49-0400 Body mass index (BMI) [Ratio] 26.63 kg/m2 Wojciech Joshua DO Work Phone: [employer] [facility] 11-21-2022 14:49-0400 Body weight 74.84 kg Wojciech Joshua DO Work Phone: [employer] [facility] 11-21-2022 14:49-0400 Diastolic blood pressure 77 mm[Hg] Wojciech Joshua DO Work Phone: [employer] [facility] 11-21-2022 14:49-0400 Heart rate 90 /min Wojciech Joshua DO Work Phone: [employer] [facility] 11-21-2022 14:49-0400 Systolic blood pressure 120 mm[Hg] Wojciech Joshua DO Work Phone: [facility] 09-08-2022 11:21-0400 Body height 167.6 cm Anabella Schmidt DO Work Phone: [employer] [facility] 09-08-2022 11:21-0400 Body mass index (BMI) [Ratio] 25.18 kg/m2 Anabella Schmidt DO Work Phone: [facility] 09-08-2022 11:21-0400 Body weight 70.76 kg Anabella Schmidt DO Work Phone: [facility] 09-08-2022 11:21-0400 Diastolic blood pressure 72 mm[Hg] Anabella Schmidt DO Work Phone: [facility] 09-08-2022 11:21-0400 Heart rate 72 /min Anabella Schmidt DO Work Phone: [facility] 09-08-2022 11:21-0400 SaO2% (BldA) [Mass fraction] 98 % Anabella Schmidt DO Work Phone: [facility] 09-08-2022 11:21-0400 Systolic blood pressure 115 mm[Hg] Anabella Schmidt DO Work Phone: [facility] 08-15-2022 09:43-0400 Body height 167.6 cm Theresa Johnathan DO Work Phone: [facility] 08-15-2022 09:43-0400 Body mass index (BMI) [Ratio] 26.28 kg/m2 Theresa Johnathan DO Work Phone: [facility] 08-15-2022 09:43-0400 Body temperature 98.8 [degF] Theresa Johnathan DO Work Phone: [facility] 08-15-2022 09:43-0400 Body weight 73.85 kg Theresa Johnathan DO Work Phone: [facility] 08-15-2022 09:43-0400 Diastolic blood pressure 78 mm[Hg] Theresa Johnathan DO Work Phone: [facility] 08-15-2022 09:43-0400 Heart rate 102 /min Theresa Johnathan DO Work Phone: [facility] 08-15-2022 09:43-0400 SaO2% (BldA) [Mass fraction] 97 % Theresa Johnathan DO Work Phone: [facility] 08-15-2022 09:43-0400 Systolic blood pressure 160 mm[Hg] Theresa Johnathan DO Work Phone: [facility] 08-02-2022 10:26-0400 Body height 167.6 cm Theresa [facility] DO [facility] 08-02-2022 10:26-0400 Body mass index (BMI) [Ratio] 26.84 kg/m2 Theresa Johnathan DO Work Phone: [facility] 08-02-2022 10:26-0400 Body temperature 98.71 [degF] Theresa Johnathan DO Work Phone: [facility] 08-02-2022 10:26-0400 Body weight 75.43 kg Theresa Johnathan DO Work Phone: [employer] [facility] 08-02-2022 10:26-0400 Diastolic blood pressure 73 mm[Hg] Theresa Johnathan DO Work Phone: [facility] 08-02-2022 10:26-0400 Heart rate 84 /min Theresa Johnathan DO Work Phone: [facility] 08-02-2022 10:26-0400 SaO2% (BldA) [Mass fraction] 100 % Theresa Johnathan DO Work Phone: [facility] 08-02-2022 10:26-0400 Systolic blood pressure 105 mm[Hg] Theresa Johnathan DO Work Phone: [facility] 07-04-2022 13:31-0400 Diastolic blood pressure 80 mm[Hg] Shante [facility]zmán MD [facility] 07-04-2022 13:31-0400 Heart rate 102 /min Shante Guzmán MD Work Phone: [facility] 07-04-2022 13:31-0400 Systolic blood pressure 130 mm[Hg] Shante Guzmán MD Work Phone: [facility] 07-04-2022 13:20-0400 Body height 167.6 cm Shante Guzmán MD Work Phone: [facility] 07-04-2022 13:20-0400 Body mass index (BMI) [Ratio] 26.63 kg/m2 Shante Guzmán MD Work Phone: [facility] 07-04-2022 13:20-0400 Body weight 74.84 kg Shante Guzmán MD Work Phone: [facility] 07-04-2022 13:20-0400 SaO2% (BldA) [Mass fraction] 96 % Shante Guzmán MD Work Phone: [facility] 04-17-2022 11:35-0400 Body height 167.6 cm Cynthia Sanchez MD Work Phone: [facility] 04-17-2022 11:35-0400 Body mass index (BMI) [Ratio] 25.82 kg/m2 Cynthia Sanchez MD Work Phone: [facility] 04-17-2022 11:35-0400 Body weight 72.58 kg Cynthia Sanchez MD Work Phone: [facility] 04-17-2022 11:35-0400 Diastolic blood pressure 79 mm[Hg] Cynthia Sanchez MD Work Phone: [facility] 04-17-2022 11:35-0400 Heart rate 109 /min Cynthia Sanchez MD Work Phone: [facility] 04-17-2022 11:35-0400 Systolic blood pressure 137 mm[Hg] Cynthia Sanchez MD Work Phone: [facility] 09-17-2020 08:41-0400 Body temperature 97.11 [degF] Sweta Maya MD Work Phone: [facility] Work Phone: 09-17-2020 08:41-0400 Diastolic blood pressure 78 mm[Hg] Sweta Maya MD Work Phone: [employer] Work Phone: 09-17-2020 08:41-0400 Heart rate 90 /min Sweta Maya MD Work Phone: [facility] Work Phone: 09-17-2020 08:41-0400 Respiratory rate 16 /min Sweta Maya MD Work Phone: [facility] Work Phone: 09-17-2020 08:41-0400 SaO2% (BldA) [Mass fraction] 96 % Sweta Maya MD Work Phone: [facility] Work Phone: 09-17-2020 08:41-0400 Systolic blood pressure 132 mm[Hg] Sweta Maya MD Work Phone: [facility] Work Phone: 09-14-2020 12:30-0400 Body height 170.2 cm Sweta Maya MD Work Phone: [facility] Work Phone: 09-14-2020 12:30-0400 Body mass index (BMI) [Ratio] 34.46 kg/m2 Sweta Maya MD Work Phone: [facility] Work Phone: 09-14-2020 12:30-0400 Body weight 99.79 kg Sweta Maya MD Work Phone: [employer] Work Phone: 05-10-2019 14:01-0400 Body Temperature 98.71 [degF] [facility] [employer] 05-10-2019 13:22-0400 BP Diastolic 75 mm[Hg] [facility] [place] [facility] [place] 05-10-2019 13:22-0400 BP Systolic 131 mm[Hg] Leonides Peterson [facility] , [place]JEL 05-10-2019 13:-0400 Pulse (Heart Rate) 87 /min Leonides Peterson [facility], [place] 05-10-2019 13:-0400 Pulse Oximetry 100 % Leonides Peterson [facility] , [place] 05-10-2019 13:22-0400 Respiratory Rate 19 /min [facility] [place] Encounters Encounter Date Encounter Type Care Provider Facility Start: 02-13-2023 End: 02-13-2023 Office outpatient visit 25 minutes Shante Guzmán MD Work Phone: [facility] Cardiology Procedures Date Procedure Procedure Detail Performing Clinician Start: 11-21-2022 Urnls dip stick/tabl et rgnt non-auto w/o micrscp Wojciech Lewis DO Work Phone: Start: 10-02-2022 Thyrotropin [Units/v olume] in Serum or Plasma Adriane Alcantara DO Work Phone: Start: 09-13-2022 Mri brain brain stem w/o contrast material Anabella Schmidt DO Work Phone: Start: 09-05-2022 Renal function panel Pr isadora Prajapati MD Work Phone: Start: 08-02-2022 Complete blood count with white cell differential, automated Theresa Watson DO Work Phone: Start: 08-02-2022 Comprehensive metabo lic panel Theresa Emerson Watson DO Work Phone: Start: 07-24-2022 Blood smear peripher al interp phys w/writ report Adriane Alcantara DO Work Phone: Start: 07-04-2022 Ecg routine ecg w/le ast 12 lds w/i&r Shante Guzmán MD Work Phone: Start: 05-26-2022 Culture bacterial quanttative colony count urine Adriane Alcantara DO Work Phone: Start: 05-22-2022 End: 05-22-2022 Creatinine other source Kojo Reis MD Work Phone: Start: 05-22-2022 Urnls dip stick/tabl et reagent auto microscopy Kojo Reis MD Work Phone: Start: 04-28-2022 Blood count complete auto&auto difrntl wbc Adriane Alcantara DO Work Phone: Start: 04-28-2022 Assay of amylase Brinkm an Alcantara DO Work Phone: Start: 04-24-2022 End: 04-24-2022 Assay of thyroid stimulating hormone tsh Sweta Maya MD Work Phone: Start: 04-24-2022 Thyrotropin [Units/v olume] in Serum or Plasma Kojo Reis MD Work Phone: Start: 03-10-2022 Creatinine other source Kojo Reis MD Work Phone: Start: 03-10-2022 End: 03-10-2022 Creatinine other source Kojo Reis MD Work Phone: Start: 01-23-2022 Follow-up visit Follow-up CYNTHIA GOSS Start: 01-03-2022 Thyrotropin [Units/v olume] in Serum or Plasma Duyen Olivia RN Start: 05-11-2021 Us breast uni real t sathish with image limited Cynthia Sanchez MD Work Phone: Start: 04-20-2021 Microscopic observat ion [Identifier] in Cervix by Cyto stain Cynthia Sanchez MD Work Phone: Start: 09-15-2020 Comprehensive metabo lic panel Amie Amor MD Work Phone: Start: 09-14-2020 Antibody screen Sweta Maya MD Work Phone: Start: 09-14-2020 Blood count complete automated Mercedes T Todd DO Work Phone: Start: 09-14-2020 Blood typing serologic abo Mercedes T Todd DO Work Phone: Start: 06-16-2020 Assay of free thyroxine Cynthia Sanchez MD Work Phone: Start: 02-27-2020 Antibody screen rbc each serum technique Samantha Abbott Work Phone: Start: 02-27-2020 Assay of free thyroxine Samantha [employer] Work Phone: Start: 02-27-2020 Assay of thyroid stimulating hormone tsh Samantha [employer] Work Phone: Start: 02-27-2020 Blood count complete automated Samantha [employer] Work Phone: Start: 02-27-2020 Blood typing serologic abo Samantha [employer] Work Phone: Start: 02-27-2020 RUBELLA IMMUNE Brunilda petty [employer] Work Phone: Start: 05-10-2019 Radiologic exam ches t single view Leonides Peterson Work Phone: Start: 05-10-2019 Assay of troponin quantitative Leonides Samson [employer] Work Phone: Start: 05-10-2019 Basic metabolic pane l calcium total Leonides Peterson Work Phone: Start: 05-10-2019 Blood count complete auto&auto difrntl wbc Leonides Peterson Work Phone: Start: 05-10-2019 Fibrin dgradj produc ts d-dimer quantitative Leonides Peterson Work Phone: Start: 05-10-2019 Ecg routine ecg w/le ast 12 lds w/i&r Leonides Samson [employer] Work Phone: Plan of Treatment Date Care Activity Detail Author Start: 2054 RSV Immunization aged 60 or older (1 - 1-dose 60+ series) RSV Immunization aged 60 or older (1 - 1-dose 60+ series) [facility] Start: 2044 Zoster Vaccines (1 of 2) Zoster Vaccines (1 of 2) [facility] Start: 04-20-2024 Screening for malignant neoplasm of cervix Pap smear [facility] Start: 10-03-2023 Thyroid stimulating hormone measurement TSH Level [facility] Start: 04-25-2023 Thyroid stimulating hormone measurement TSH Level [facility] Start: 01-03-2023 Thyroid stimulating hormone measurement TSH Level [facility] Start: 01-03-2023 End: 01-03-2023 Patient encounter procedure 01/03/2023 9:45 AM EST Office Visit [facility] [address] [place] [id number] Shante Guzmán MD [address] [place] [address] [facility] Start: 11-21-2022 End: 11-21-2022 Patient encounter procedure 11/21/2022 3:00 PM EDT Office Visit [facility] Urogynecology [address] [place] [id number] Wojciech Lewis, [address] [place] [address] [facility] Start: 10-06-2022 Influenza vaccination [facility] Start: 09-26-2022 End: 09-26-2022 Patient encounter procedure 09/26/2022 9:15 AM EDT Office Visit [facility] [address] [place] [address] Shante Guzmán MD [address] [place] [address] [facility] Start: 09-25-2022 End: 09-25-2022 Patient encounter procedure 09/25/2022 7:45 AM EDT Appointment [facility] MRI [address] [place] [id number] Anabella Schmidt, DO [address] [place] [address] [facility] Start: 09-12-2022 End: 09-12-2022 Patient encounter procedure [facility] Start: 09-08-2022 End: 09-09-2023 MR Brain WO contrast MR brain wo contrast Imaging Routine Visual changes Chronic primary headache Expected: 09/08/2022, Expires: 09/09/2023 [facility] Work Phone: Immunizations Immunization Date Immunization Notes Care Provider Fa cility NEGATED: Highlighted row has not occurred!09-17-2020 measles, mumps and rubella virus vaccine Sweta Maya MD Work Phone: [facility] NEGATED: Highlighted row has not occurred!09-17-2020 tetanus toxoid, reduced diphtheria toxoid, and acellular pertussis vaccine, adsorbed Sweta Maya MD Work Phone: [facility] Work Phone: Payers Date Payer Category Payer Unknown [id number] 2016 Unknown [id number] 2015 Unknown [employer] [address] xxxxxxxxxxxx 2015-Present [phone] [address] [place] [address] xxxxxxxxxxxx [id number] Social History Date Type Detail Facility Start: 05-10-2019 End: 01-11-2022 Tobacco smoking status ILIS Never smoker [facility] Start: 05-10-2019 Alcohol intake Current drinker of alcohol (finding) [place], [place] Start: 11-30-2016 Alcohol Comment occiasionally- beer [place], [place] Start: 1995 Sex Assigned At Not on file [place] Exposure to SARS-CoV -2 (event) Unable to assess [place] Start: 02-27-2020 End: 01-11-2022 Tobacco use and exposure Former user [place], [place] End: 04-05-2016 History of tobacco use [facility] Start: 02-27-2020 End: 02-13-2023 [facility] intake [facility] Start[facility] 12-13-2019 [facility] Start: 11-30-2016 Alcohol Comment occiasionally- beer [employer] Work Phone: Start: 03-21-2021 End: 10-02-2022 Exposure to SARS-CoV-2 (event) Not sure [facility] Tobacco smoking stat [facility] Tobacco [facility] consumption [facility] Start: 04-20-2021 History SDOH Alcohol Frequency 2 [employer] Work Phone: Start: 04-20-2021 End: 01-03-2022 History SDOH Alcohol Std Drinks 1 [employer] Work Phone: Start: 04-20-2021 History SDOH Social Connections Phone 5 [employer] Work Phone: Start: 04-20-2021 History SDOH Social Connections Get Together 3 [employer] Work Phone: Start: 01-03-2022 History SDOH Alcohol Std Drinks 0 [facility] Start: 01-03-2022 End: 02-13-2023 History of Social function [facility] Start: 01-03-2022 End: 02-13-2023 Alcohol Use Disorder Identification Test - Consumption [AUDIT-C] [facility] How often to you hav e a drink containing alcohol? Never [facility] How many standard dr inks containing alcohol do you have on a typical day? Patient does not drink [facility] Start: 04-17-2022 Gender identity Identifies as female gender (finding) [facility] Clinical Notes 09-17-2020 to 02-13-2023 Shante Guzmán MD - 02/13/2023 9:45 AM Spencer Lewis, - 11/21/2022 3:00 PM Christopher Stewart MA - 11/21/2022 3:00 PM Bisi Schmidt DO - 09/08/2022 11:20 AM EDTInstructnorma Note Date & Type Note Facility 02-13-2023 History of Presen t illness Narrative [facility]rophysiology Follow Up Clinic Note Chief Complaint: Chief Complaint Patient presents with Dizziness Orthostatic Hypotension Palpitations PVC,PAC Other 9 weeks History of Present Illness: Dulce Maria Carty is a 27 y.o. female whom I met in June 2022 for episodes of near syncope and syncope. She has had orthostatic dizziness since the age of 11. The episodes are always related to change in position. They are characterized by diaphoresis, nausea, blurry vision and palpitation. Her has noted her to be pale. Her pulse is in the low 100s with the episodes, but she had never measured her BP. They last several minutes, occur several times a week, and are concentrated around her menstrual period. She has enough aura that she can sit down or lay down and she gets better. She has had occasional loss of consciousness, maybe 3 or 4 times over the last 15 years, and none over the last several years. When I met her she 182 stay away from [facility] and I encouraged her to stay well-hydrated and liberalize salt in her diet. She did not follow-up after that. She returns today feeling at her baseline. She is now 9 weeks . With her first she had some increase in palpitation and orthostatic symptoms. Today she complains mostly of episodes of eye pain with flashing lights when she closes her eyes. She also has ringing in her ears and pain in the back of her neck. She continues to have some orthostatic dizziness which has really not changed much in frequency. She is otherwise active. She exercises routinely and strenuously without cardiac symptoms. She does not have palpitation unless the episodes occur. She was diagnosed with proteinuria, the etiology of which may be related to exertion. An EKG today is normal. An event monitor in May 2021 showed only single PACs and PVCs. An echo 4 years ago was normal. Since the last time I saw her, a brain MRI was normal. Assessment and Plan: 1. Dysautonomia/orthostatic hypotension: Most of her symptoms are fairly classic for vasovagal near syncope/syncope. Her syndrome is more consistent with hypotension rather than postural tachycardia. I do not think the eye pain, flashing lights symptoms are related to her blood pressure. She did have migraines at a younger age and I wonder if these are atypical migraines. She is fairly against taking medications. Today we spoke again about keeping well-hydrated and liberalizing salt in her diet. I also asked her to continue to monitor blood pressures when the episodes occur. In June we spoke about meds like Florinef or midodrine. I would not do that during . For now, I will have her continue with behavioral modifications and measure her blood pressure. Past Medical History: Past Medical History: Diagnosis Date Asthma 09/2016 Breast cyst, left 06/03/2021 Chronic sinusitis 12/2016 ENT eval per [facility] GERD (gastroesophageal reflux disease) 07/2016 EGD per [facility] Hypothyroid 2008 IBS (irritable bowel syndrome) 02/2016 constipation - Colonoscopy per [facility] Past Surgical History Past Surgical History: Procedure Laterality Date COLONOSCOPY 02/2016 [facility] TONSILLECTOMY (HISTORICAL) 1999 UPPER GASTROINTESTINAL ENDOSCOPY 11/2016 [facility] Family History Family History Problem Relation Name Age of Onset Ovarian cancer Neg Hx Diabetes Mother 35.00 on insulin at > 50 Lung cancer Maternal Grandfather Diabetes Maternal Cousin Gayle Colon cancer Maternal Grandmother 80.00 No Known Problems Paternal Grandmother Thyroid cancer Maternal Cousin Gayle Pancreatic cancer Mother Breast cancer Neg Hx No Known Problems Paternal Grandfather Other ([id number]) Father Dionisio 54.00 MVA in 2011 No Known Problems Sister Prostate cancer Maternal Grandfather Social History Social History Tobacco Use Smoking status: Never Smokeless tobacco: Former Quit date: 04/05/2016 Vaping Use Vaping Use: Never used Substance Use Topics Alcohol use: Not Currently Drug use: No Comment: caffiene: none Medications: Reviewed Allergies: Reviewed Review of Systems: All other systems were reviewed and are negative other than as noted in the HPI. Physical Examination: Vitals: Blood pressure 104/70, pulse 110, height 5' 6 (1.676 m), weight 168 lb 9.6 oz (76.5 kg), SpO2 98%. Constitutional: Appears well kept and looks stated age; in NAD Psychiatric: A &O x3 Mood is pleasant; Affect is appropriate Musculoskeletal: Normocephalic; no joint swelling; gait steady; 5/5 muscle strength bilaterally in upper and lower extremities; no clubbing or cyanosis HEENT: Pupils are equal and round; Conjunctiva are not injected; Sclera are non-icteric; Airway and Nares are patent; Ears without external abnormalities. Mucosa is pink; Dentition is normal Neck: Supple; No JVD or Bruits; No thyromegaly; No lymphadenopathy Respiratory: Lungs are clear with no rales or wheezes. Respiratory effort is normal and symmetrical bilaterally; Good air movement bilaterally Heart: RRR without ectopy; Nl S1 and S2 no mcrg Abdomen: NABS soft, non-tender, non-distended; no organomegaly; no obvious masses Extremities/Skin: No LE edema; Skin warm to touch and well perfused; skin discoloration is absent; Peripheral Pulses intact Neuro: sensation and motor function are grossly normal. Cranial Nerves are grossly intact Laboratory Tests: Lab Results Component Value Date WBC 4.2 08/02/2022 WBC 6.0 07/24/2022 WBC 3.9 05/22/2022 HGB 14.9 08/02/2022 HGB 13.8 07/24/2022 HGB 13.8 05/22/2022 HCT 43.1 08/02/2022 HCT 40.8 07/24/2022 HCT 41.1 05/22/2022 MCV 87.1 08/02/2022 MCV 86.3 07/24/2022 MCV 86.0 05/22/2022 PLT 161 08/02/2022 PLT 152 07/24/2022 PLT 159 05/22/2022 Lab Results Component Value Date NA 137 09/05/2022 NA 136 05/22/2022 NA 136 02/17/2022 K 4.1 09/05/2022 K 4.0 05/22/2022 K 4.8 02/17/2022 CL 107 09/05/2022 CL 106 05/22/2022 CL 106 02/17/2022 CO2 24 09/05/2022 CO2 25 08/02/2022 CO2 28 05/22/2022 BUN 15 09/05/2022 BUN 12 08/02/2022 BUN 14 05/22/2022 CREATININE 0.81 09/05/2022 CREATININE 0.66 08/02/2022 CREATININE 0.66 05/22/2022 GLU 100 01/04/2022 GLU 73 01/03/2022 GLU 79 04/07/2021 Lab Results Component Value Date TSH 1.076 10/02/2022 Lab Results Component Value Date CHOL 229 (A) 04/07/2021 Lab Results Component Value Date HDL 127 (A) 04/07/2021 Lab Results Component Value Date TRIG 38 04/07/2021 Radiology: Reviewed Shante Guzmán MD DATE of SERVICE: 02/13/2023 documented in this encounter [facility] 11-21-2022 History of Presen t illness Narrative Primary MD:Adriane Alcantara DO CC: Urinary incontinence, bladder pain HPI: May Cesar Carty is a 27 y.o. () who presents for evaluation of bladder pain. Bladder: Starting last September, she started to have intense pressure like she needed to void. She thought she had a UTI but Urinalysis was negative other than protein. She was never treated with antibiotics, but the symptoms would usually eventually resolve. The only other lifestyle change at the time was that she had been dairy free while and had added dairy back into her diet, but overall no definitive symptom triggers. She would occasionally have urethral pain during or after urination, but not every single time she had an episode/flare. She does have a feeling of incomplete emptying but does not need to splint to empty her bladder. She had a renal Ultrasound that was normal. Bowels: she occasionally strains and has a sensation of incomplete evacuation after defecation. No splinting. No fecal urgency or FI. No rectal prolapse. Prolapse: she has some pressure and heaviness but cannot see or feel a bulge in her vagina. 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 Her son is now 2. They are actively TTC x 8 mos. Pelvic US 04/24/2022: Size (cm) L: 8.05 W: 5.07 H: 3.79 Description: The uterine contour is smooth, but the echogenicity is mottled. This appearance may be seen with diffuse fibroid disease or adenomyosis. No discrete mass is identified. The endometrium is hyperechoic, and measures 8.8mm. Cervical cysts are noted. Both ovaries are enlarged. No masses are observed. This is a non specific finding but can be associated with PCOS. No pelvic free fluid observed. Review of Systems Constitutional: Positive for fatigue. HENT: Positive for sinus pain. Eyes: Positive for pain and visual disturbance. Respiratory: Positive for shortness of breath. Cardiovascular: Positive for palpitations. Gastrointestinal: Positive for abdominal distention and abdominal pain. Genitourinary: Positive for flank pain, frequency and urgency. Musculoskeletal: Positive for neck pain. Neurological: Positive for dizziness, weakness, light-headedness and headaches. All other systems reviewed and are negative. Problem list: Patient Active Problem List Diagnosis Other specified hypothyroidism Breast cyst, left Lactating mother Asthma Medical History: Past Medical History: Diagnosis Date Asthma 09/2016 Breast cyst, left 06/03/2021 Chronic sinusitis 12/2016 ENT eval per [facility] GERD (gastroesophageal reflux disease) 07/2016 EGD per [facility] Hypothyroid 2008 IBS (irritable bowel syndrome) 02/2016 constipation - Colonoscopy per [facility] Surgical History: Past Surgical History: Procedure Laterality Date COLONOSCOPY 02/2016 [facility] TONSILLECTOMY (HISTORICAL) 1999 UPPER GASTROINTESTINAL ENDOSCOPY 11/2016 [facility] Allergies: Allergies Allergen Reactions Nitrofurantoin Other reaction(s): difficulty breathing Alprazolam Unknown Quetiapine Other Current medications: Current Outpatient Medications: MV-Min-Fe Fum-FA-DHA ( 1 PO), Take by mouth., Disp: , Rfl: Probiotic Product (PROBIOTIC DAILY PO), Take by mouth., Disp: , Rfl: Social History Socioeconomic History Marital status: Spouse name: Not on file Number of children: Not on file Years of education: Not on file Highest education level: Not on file Occupational History Not on file Tobacco Use Smoking status: Never Smokeless tobacco: Former Quit date: 04/05/2016 Vaping Use Vaping Use: Never used Substance and Sexual Activity Alcohol use: Not Currently Drug use: No Comment: caffiene: none Sexual activity: Yes Other Topics Concern Not on file Social History Narrative to Emile Nielson) since 07/21. NS or drinker, no children. 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 Social Determinants of Health Financial Resource Strain: Not on file Food Insecurity: Not on file Transportation Needs: Not on file Physical Activity: Not on file Stress: Not on file Social Connections: Not on file Intimate Partner Violence: Not on file Housing Stability: Not on file Family History: Family History Problem Relation Name Age of Onset Ovarian cancer Neg Hx Diabetes Mother 35.00 on insulin at > 50 Lung cancer Maternal Grandfather Diabetes Maternal Cousin Gayle Colon cancer Maternal Grandmother 80.00 No Known Problems Paternal Grandmother Thyroid cancer Maternal Cousin Gayle Pancreatic cancer Mother Breast cancer Neg Hx No Known Problems Paternal Grandfather Other ([id number]) Father Dionisio 54.00 MVA in 2011 No Known Problems Sister Prostate cancer Maternal Grandfather ? Objective PHYSICAL EXAM: Vitals: 11/21/22 1449 BP: 120/77 Pulse: 90 Body mass index is 26.63 kg/m . General: General: Well developed, well nourished female in no acute distress Orientation/Mood/Affect: alert and oriented to person, place, and time and mood and affect appropriate Head/Neck: No obvious masses; free range of motion. Cardiovascular: intact distal pulses; regular rate Pulmonary: normal effort, no wheezes Abdomen: soft, nontender, nondistended, no hernia or mass appreciated. Back: no spinal tenderness, no CVA tenderness Neurologic: grossly intact Skin: no visible rash or lesion Extremities: no lower extremity edema Lymphatic: no lymphadenopathy in the groin Pelvic Examination: A airline radio operator was present for this exam. Cough stress test: negative @ 40mL?? Urethral hypermobility: present? Neurologic: Motor and sensory exams grossly normal. Vulva External genitalia: normal appearing without erythema, ulcerations or lesions; no atrophy or loss of architecture; Normal Bartholin's and [place]'s glands Urethral meatus and urethra: normal position and appearance with no masses, tenderness, lesions Bladder: non-tender, no fullness Vagina No prolapse visible at the introitus. Vaginal epithelium: no abnormal discharge, inflammation, masses Atrophy:?none Cervix: no lesions, discharge, or cervical motion tenderness; + menstrual blood Uterus: mobile, nontender to palpation, but some discomfort with speculum manipulation at apex Adnexae/parametrium: no masses, no tenderness, no fullness or masses appreciated No tenderness with palpation over the pelvic floor muscles. Pelvic floor muscle tone: normal Pelvic floor Muscle Contraction (Lincoln Score): 3/5 POP-Q: -3 Aa -3 Ba -9 C 2 GH 3 PB 10 TVL -2 Ap -2 Bp -10 D - Overall Stage?I prolapse ? Perineum: no fissures, lesions or skin irritation Rectal: No external hemorrhoidal tissue. No fissures. No rectal mucosal prolapse visible. PROCEDURE: Void: 100mL Catheterization Indication: ?Sensation of incomplete emptying Urethra cleaned with betadine 8 Thai catheter placed without difficulty. Findings: postvoid residual: 40 mL POCT: negative for all components Assessment: 1. NURA (stress urinary incontinence, female) 2. Bladder pain 3. Feeling of incomplete bladder emptying 4. POP-Q stage 1 rectocele 5. Dyspareunia in female 6. Endometriosis 7. Adenomyosis 8. Dysuria Plan: Bladder pain/pressure, dysuria, feeling of incomplete emptying, history of proteinuria on clean catch urine sample - void 100mL, PVR 40mL - urinalysis normal today - discussed possible differential diagnosis of UTI, upper tract etiology, IC/BPS, ovarian cyst, and others - discussed symptom tracking to identify any triggers/exacerbating factors - given that symptoms are improving I do not think she needs office cysto now, but could consider cysto/hydro if she proceeds with dx laparoscopy to evaluate for endometriosis in the future Stress Urinary Incontinence: - PAGEANT DIRECTOR: negative @ 40mL - Urethral hypermobility: present We discussed the pathophysiology of stress urinary incontinence, including the benign nature of NURA. Treatment options reviewed based on patient's history & evaluation: [x] Behavioral management [x] Pelvic floor physical therapy [x] Pessary (including how it works & pessary care) [] Midurethral mesh sling (including how it works, how it is placed, general & mesh risks, success rates, recovery) [] Pubovaginal fascial sling (including how it works, how it is placed, fascial harvesting, general & mesh risks, success rates, recovery) [] Transurethral bulking agent injection (including how it works, how it is done, risks, success rates, recovery) Plan based on discussion and patient preference/goals: discussed kegel exercises and referral to pelvic PT. She and her are trying to conceive so would recommend conservative interventions at this point. 3. Stage I rectocele, largely asymptomatic - continue observation - utilize fiber supplementation, squatty potty as needed 4. Suspected adenomyosis on pelvic US, possible endometriosis - referral to Dr. Ramirez for further evaluation Follow-Up: as needed if her symptoms return/worsen. All questions answered and she feels comfortable with the plan. Time based Evaluation and Management: I spent total time of 45 minutes reviewing previous notes, test results, and face to face with the patient discussing the diagnosis and importance of compliance with the treatment plan as well as documenting on the day of the visit. Time on the day of service includes: Preparing to see the patient (eg. Review of the medical record, such as tests) Obtaining and/or reviewing separately obtained history Ordering prescription medications, test and procedures Communicating results to the patient Counseling/educating the patient Documenting clinical information in the patients electronic record Performing a medical appropriate exam and/or evaluation Examination chaperoned by BABAK Farris documented in this encounter [facility] 09-08-2022 History of Presen t illness Narrative Images from the original note were not included. [facility] [address] [facility] [id number] Visit type: New Patient Reason for Visit: Establish Care (Patient having many issues. Abnormal labs. ) Assessment and Plan Diagnoses and all orders for this visit: Visual changes - MR brain wo contrast; Future Chronic primary headache - MR brain wo contrast; Future On this date, 09/08/22 I have spent 30 minutes reviewing previous notes, test results and face to face with the patient discussing the diagnosis and importance of compliance with the treatment plan as well as documenting on the day of the visit. No follow-ups on file. Subjective HPI About a year ago, started having protein in her urine Went in for sx of UTI Seeing nephrology Has had some abnormal labs - WBC has gone up and down. She did a andrzej smear and a CT scan abd - this was normal. She is having stomach issues. Has been told she has IBS Feels sick and weak Had her son two years ago - feels more exhausted now than before Blurred vision, head pain - feels like pressure. Straining with her eyes Neck tension, pain in the LN region Has seen an eye dr twice - no issues She has had some slight anemia Had abnormal thyroid in the past but is no longer on any medications Review of Systems Constitutional: Negative for appetite change, chills, fatigue and fever. HENT: Negative for congestion, ear pain, hearing loss, postnasal drip, sore throat and trouble swallowing. Eyes: Positive for visual disturbance. Negative for discharge and itching. Respiratory: Negative for cough, shortness of breath and wheezing. Cardiovascular: Negative for chest pain, palpitations and leg swelling. Gastrointestinal: Positive for abdominal pain. Negative for constipation, diarrhea, nausea and vomiting. Endocrine: Negative for cold intolerance, heat intolerance, polydipsia, polyphagia and polyuria. Genitourinary: Negative. Negative for difficulty urinating, frequency, urgency, vaginal bleeding, vaginal discharge and vaginal pain. Musculoskeletal: Positive for neck pain. Negative for arthralgias, back pain, joint swelling and myalgias. Skin: Negative for color change, rash and wound. Neurological: Positive for headaches. Negative for dizziness, tremors, seizures, speech difficulty, weakness and numbness. Hematological: Negative for adenopathy. Does not bruise/bleed easily. Psychiatric/Behavioral: Negative for agitation, decreased concentration, dysphoric mood and sleep disturbance. The patient is not nervous/anxious. Allergies Allergen Reactions Nitrofurantoin Other reaction(s): difficulty breathing Alprazolam Unknown Quetiapine Other Outpatient Medications Prior to Visit Medication Sig Dispense Refill Desiccated Beef Liver powder Docosahexaenoic Acid 200 MG capsule Take by mouth. MV-Min-Fe Fum-FA-DHA ( 1 PO) Take by mouth. Probiotic Product (PROBIOTIC DAILY PO) Take by mouth. No facility-administered medications prior to visit. Past Medical History: Diagnosis Date Asthma 09/2016 Breast cyst, left 06/03/2021 Chronic sinusitis 12/2016 ENT eval per [facility] GERD (gastroesophageal reflux disease) 07/2016 EGD per [facility] Hypothyroid 2009 IBS (irritable bowel syndrome) 02/2016 constipation - Colonoscopy per [facility] Social History Socioeconomic History Marital status: Tobacco Use Smoking status: Never Smokeless tobacco: Former Quit date: 04/05/2016 Vaping Use Vaping Use: Never used Substance and Sexual Activity Alcohol use: Not Currently Drug use: No Comment: caffiene: none Sexual activity: Yes Social History Narrative to Emile Nielson) since 07/21. NS or drinker, no children. 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 Past Surgical History: Procedure Laterality Date COLONOSCOPY 02/2016 [facility] TONSILLECTOMY (HISTORICAL) 1999 UPPER GASTROINTESTINAL ENDOSCOPY 11/2016 [facility] Past Surgical History: Procedure Laterality Date COLONOSCOPY 02/2016 [facility] TONSILLECTOMY (HISTORICAL) 1999 UPPER GASTROINTESTINAL ENDOSCOPY 11/2016 [facility] Family History Problem Relation Name Age of Onset Ovarian cancer Neg Hx Diabetes Mother 35.00 on insulin at > 50 Lung cancer Maternal Grandfather Diabetes Maternal Cousin Gayle Colon cancer Maternal Grandmother 80.00 No Known Problems Paternal Grandmother Thyroid cancer Maternal Cousin Gayle Pancreatic cancer Mother Breast cancer Neg Hx No Known Problems Paternal Grandfather Other ([id number]) Father Dionisio 54.00 MVA in 2011 No Known Problems Sister Prostate cancer Maternal Grandfather Objective BP 115/72 Pulse 72 Ht 5' 6 (1.676 m) Wt 156 lb (70.8 kg) SpO2 98% BMI 25.18 kg/m Physical Exam Vitals and nursing note reviewed. Constitutional: General: She is not in acute distress. Appearance: Normal appearance. She is not ill-appearing. HENT: Head: Normocephalic and atraumatic. Right Ear: Tympanic membrane, ear canal and external ear normal. Left Ear: Tympanic membrane, ear canal and external ear normal. Nose: Nose normal. Mouth/Throat: Mouth: Mucous membranes are dry. Eyes: Extraocular Movements: Extraocular movements intact. Conjunctiva/sclera: Conjunctivae normal. Pupils: Pupils are equal, round, and reactive to light. Cardiovascular: Rate and Rhythm: Normal rate and regular rhythm. Heart sounds: No murmur heard. No friction rub. Pulmonary: Effort: Pulmonary effort is normal. No respiratory distress. Breath sounds: Normal breath sounds. No stridor. No wheezing, rhonchi or rales. Chest: Chest wall: No tenderness. Abdominal: General: Abdomen is flat. Bowel sounds are normal. There is no distension. Palpations: Abdomen is soft. There is no mass. Tenderness: There is no abdominal tenderness. There is no guarding or rebound. Hernia: No hernia is present. Musculoskeletal: General: Normal range of motion. Cervical back: Normal range of motion and neck supple. Right lower leg: No edema. Left lower leg: No edema. Skin: General: Skin is warm and dry. Neurological: General: No focal deficit present. Mental Status: She is alert and oriented to person, place, and time. Cranial Nerves: No cranial nerve deficit. Sensory: No sensory deficit. Motor: No weakness. Coordination: Coordination normal. Psychiatric: Mood and Affect: Mood normal. Behavior: Behavior normal. Thought Content: Thought content normal. Judgment: Judgment normal. Data Reviewed POCT: Labs: Imaging/Testing: Chart Clean Up: There are no discontinued medications. Anabella Schmidt DO 09/11/2022 9:18 AM documented in this encounter [facility] 08-15-2022 Note Hematology/Oncology Office Visit Consultation/Referral Reason: low WBC Referred by: Dr. Alcantara HPI: Dulce Maria Carty is a 26 y.o. female who was referred to hematology for evaluation of a low WBC in July 2022. Records from her PCP were reviewed and summarized. From last visit: The patient reports she started feeling ill about 3-4 months ago. She developed abdominal pain and also had protein in her urine. +nausea associated with the abdominal pain. +cramping feeling, but constant. Not worse with food. Feels like she has to have a bowel movement but the pain persists after she has a BM. She was referred to nephrology and underwent testing for the proteinuria, but doesn't think a diagnosis was rendered. (Records requested.) she has dizzy spells and feels lightheaded at times. She was referred to cardiology and diagnosed with vasovagal near syncope. Lab work from 04/13/22 showed a wbc of 3.3, hb 14, plts 153, ANC 1.57. the CBC was repeated a few weeks later and was normal. She denies any fevers or infections. No recent antibiotic use. She has regular menstrual cycles and does not feel they are excessively heavy. No history of autoimmune disorders. LESLY recently was negative. Today, she is here for routine follow up and to review her lab work and CT results. Labs were unremarkable. WBC was within normal limits. No neutropenia. CT also unremarkable. She continues to have GI/abdominal complaints as outlined above. Past Medical History: Diagnosis Date Asthma 09/2016 Breast cyst, left 06/03/2021 Chronic sinusitis 12/2016 ENT eval per [facility] GERD (gastroesophageal reflux disease) 07/2016 EGD per [facility] Hypothyroid 2009 IBS (irritable bowel syndrome) 02/2016 constipation - Colonoscopy per [facility] Past Surgical History: Procedure Laterality Date COLONOSCOPY 02/2016 [facility] TONSILLECTOMY (HISTORICAL) 2000 UPPER GASTROINTESTINAL ENDOSCOPY 11/2016 [facility] Patient Active Problem List Diagnosis Date Noted Breast cyst, left 06/03/2021 Lactating mother 06/03/2021 Other specified hypothyroidism 11/11/2020 Asthma 11/30/2016 Social History Tobacco Use Smoking status: Never Smokeless tobacco: Former Quit date: 04/05/2016 Vaping Use Vaping Use: Never used Substance Use Topics Alcohol use: Not Currently Drug use: No Comment: caffiene: none Family History Problem Relation Name Age of Onset Ovarian cancer Neg Hx Diabetes Mother 35.00 on insulin at > 50 Lung cancer Maternal Grandfather Diabetes Maternal Cousin Gayle Colon cancer Maternal Grandmother 80.00 No Known Problems Paternal Grandmother Thyroid cancer Maternal Cousin Gayle Pancreatic cancer Mother Breast cancer Neg Hx No Known Problems Paternal Grandfather Other ([id number]) Father Dionisio 54.00 MVA in 2011 No Known Problems Sister Prostate cancer Maternal Grandfather Allergies Allergen Reactions Alprazolam Unknown Quetiapine Other Current Outpatient Medications Medication Sig Dispense Refill Desiccated Beef Liver powder MV-Min-Fe Fum-FA-DHA ( 1 PO) Take by mouth. Probiotic Product (PROBIOTIC DAILY PO) Take by mouth. No current facility-administered medications for this visit. Review of Systems Constitutional: Positive for fatigue. Negative for appetite change, chills, diaphoresis, fever and unexpected weight change. HENT: Negative for dental problem, mouth sores, nosebleeds, sneezing, sore throat, tinnitus, trouble swallowing and voice change. Eyes: Negative for photophobia, pain and visual disturbance. Respiratory: Negative for cough, shortness of breath and wheezing. Cardiovascular: Negative for chest pain, palpitations and leg swelling. Gastrointestinal: Positive for abdominal pain. Negative for abdominal distention, blood in stool, constipation, diarrhea, nausea and vomiting. Endocrine: Negative for cold intolerance and heat intolerance. Genitourinary: Negative for difficulty urinating, frequency, hematuria and urgency. Musculoskeletal: Negative for arthralgias, back pain, gait problem and myalgias. Skin: Negative for pallor and rash. Allergic/Immunologic: Negative for immunocompromised state. Neurological: Positive for dizziness and light-headedness. Negative for syncope, weakness, numbness and headaches. Hematological: Negative for adenopathy. Does not bruise/bleed easily. Psychiatric/Behavioral: Negative for confusion and sleep disturbance. The patient is not nervous/anxious. All other systems reviewed and are negative. Vitals: 08/15/22 0943 BP: (!) 160/78 BP Location: Right arm Patient Position: Sitting Pulse: 102 Temp: 98.8 ?F (37.1 ?C) TempSrc: Temporal SpO2: 97% Weight: 162 lb 12.8 oz (73.8 kg) Height: 5' 6 (1.676 m) ECOG PS = 0 Physical Exam Vitals and nursing note reviewed. Constitutional: General: She is not in acute distress. Appearance: Normal appearance. She is not ill-appearing. HENT: Head: Normo (more content not included)... [facility] 08-15-2022 History of Presen t illness Narrative Hematology/Oncology Office Visit Consultation/Referral Reason: low WBC Referred by: Dr. Alcantara HPI: Dulce Maria Carty is a 26 y.o. female who was referred to hematology for evaluation of a low WBC in July 2022. Records from her PCP were reviewed and summarized. From last visit: The patient reports she started feeling ill about 3-4 months ago. She developed abdominal pain and also had protein in her urine. +nausea associated with the abdominal pain. +cramping feeling, but constant. Not worse with food. Feels like she has to have a bowel movement but the pain persists after she has a BM. She was referred to nephrology and underwent testing for the proteinuria, but doesn't think a diagnosis was rendered. (Records requested.) she has dizzy spells and feels lightheaded at times. She was referred to cardiology and diagnosed with vasovagal near syncope. Lab work from 04/13/22 showed a wbc of 3.3, hb 14, plts 153, ANC 1.57. the CBC was repeated a few weeks later and was normal. She denies any fevers or infections. No recent antibiotic use. She has regular menstrual cycles and does not feel they are excessively heavy. No history of autoimmune disorders. LESLY recently was negative. Today, she is here for routine follow up and to review her lab work and CT results. Labs were unremarkable. WBC was within normal limits. No neutropenia. CT also unremarkable. She continues to have GI/abdominal complaints as outlined above. Past Medical History: Diagnosis Date Asthma 09/2016 Breast cyst, left 06/03/2021 Chronic sinusitis 12/2016 ENT eval per [facility] GERD (gastroesophageal reflux disease) 07/2016 [facility] Hypothyroid 2008 IBS (irritable bowel syndrome) 02/2016 constipation - Colonoscopy per [facility] Past Surgical History: Procedure Laterality Date COLONOSCOPY 02/2016 [facility] TONSILLECTOMY (HISTORICAL) 1999 UPPER GASTROINTESTINAL ENDOSCOPY 11/2016 [facility] Patient Active Problem List Diagnosis Date Noted Breast cyst, left 06/03/2021 Lactating mother 06/03/2021 Other specified hypothyroidism 11/11/2020 Asthma 11/30/2016 Social History Tobacco Use Smoking status: Never Smokeless tobacco: Former Quit date: 04/05/2016 Vaping Use Vaping Use: Never used Substance Use Topics Alcohol use: Not Currently Drug use: No Comment: caffiene: none Family History Problem Relation Name Age of Onset Ovarian cancer Neg Hx Diabetes Mother 35.00 on insulin at > 50 Lung cancer Maternal Grandfather Diabetes Maternal Cousin Gayle Colon cancer Maternal Grandmother 80.00 No Known Problems Paternal Grandmother Thyroid cancer Maternal Cousin Gayle Pancreatic cancer Mother Breast cancer Neg Hx No Known Problems Paternal Grandfather Other ([id number]) Father Dionisio 54.00 MVA in 2011 No Known Problems Sister Prostate cancer Maternal Grandfather Allergies Allergen Reactions Alprazolam Unknown Quetiapine Other Current Outpatient Medications Medication Sig Dispense Refill Desiccated Beef Liver powder MV-Min-Fe Fum-FA-DHA ( 1 PO) Take by mouth. Probiotic Product (PROBIOTIC DAILY PO) Take by mouth. No current facility-administered medications for this visit. Review of Systems Constitutional: Positive for fatigue. Negative for appetite change, chills, diaphoresis, fever and unexpected weight change. HENT: Negative for dental problem, mouth sores, nosebleeds, sneezing, sore throat, tinnitus, trouble swallowing and voice change. Eyes: Negative for photophobia, pain and visual disturbance. Respiratory: Negative for cough, shortness of breath and wheezing. Cardiovascular: Negative for chest pain, palpitations and leg swelling. Gastrointestinal: Positive for abdominal pain. Negative for abdominal distention, blood in stool, constipation, diarrhea, nausea and vomiting. Endocrine: Negative for cold intolerance and heat intolerance. Genitourinary: Negative for difficulty urinating, frequency, hematuria and urgency. Musculoskeletal: Negative for arthralgias, back pain, gait problem and myalgias. Skin: Negative for pallor and rash. Allergic/Immunologic: Negative for immunocompromised state. Neurological: Positive for dizziness and light-headedness. Negative for syncope, weakness, numbness and headaches. Hematological: Negative for adenopathy. Does not bruise/bleed easily. Psychiatric/Behavioral: Negative for confusion and sleep disturbance. The patient is not nervous/anxious. All other systems reviewed and are negative. Vitals: 08/15/22 0943 BP: (!) 160/78 BP Location: Right arm Patient Position: Sitting Pulse: 102 Temp: 98.8 F (37.1 C) TempSrc: Temporal SpO2: 97% Weight: 162 lb 12.8 oz (73.8 kg) Height: 5' 6 (1.676 m) ECOG PS = 0 Physical Exam Vitals and nursing note reviewed. Constitutional: General: She is not in acute distress. Appearance: Normal appearance. She is not ill-appearing. HENT: Head: Normocephalic and atraumatic. Nose: Nose normal. Mouth/Throat: Pharynx: Oropharynx is clear. No oropharyngeal exudate or posterior oropharyngeal erythema. Eyes: General: No scleral icterus. Extraocular Movements: Extraocular movements intact. Conjunctiva/sclera: Conjunctivae normal. Pupils: Pupils are equal, round, and reactive to light. Cardiovascular: Rate and Rhythm: Normal rate and regular rhythm. Heart sounds: Normal heart sounds. No murmur heard. Pulmonary: Effort: Pulmonary effort is normal. No respiratory distress. Breath sounds: Normal breath sounds. No wheezing. Abdominal: General: Abdomen is flat. Bowel sounds are normal. There is no distension. Palpations: Abdomen is soft. There is no mass. Tenderness: There is no abdominal tenderness. There is no guarding. Musculoskeletal: General: No swelling or tenderness. Normal range of motion. Cervical back: Normal range of motion and neck supple. Right lower leg: No edema. Left lower leg: No edema. Lymphadenopathy: Cervical: No cervical adenopathy. Skin: General: Skin is warm and dry. Findings: No bruising or rash. Neurological: General: No focal deficit present. Mental Status: She is alert and oriented to person, place, and time. Mental status is at baseline. Psychiatric: Mood and Affect: Mood normal. Thought Content: Thought content normal. Imaging/Labs: Office Visit on 08/02/2022 Component Date Value Ref Range Status White Blood Cell Count 08/02/2022 4.2 3.8 - 10.8 Thousand/uL Final RBC 08/02/2022 4.95 3.80 - 5.10 Million/uL Final HEMOGLOBIN 08/02/2022 14.9 11.7 - 15.5 g/dL Final HEMATOCRIT 08/02/2022 43.1 35.0 - 45.0 % Final MCV 08/02/2022 87.1 80.0 - 100.0 fL Final MCH 08/02/2022 30.1 27.0 - 33.0 pg Final MCHC 08/02/2022 34.6 32.0 - 36.0 g/dL Final RDW 08/02/2022 12.4 11.0 - 15.0 % Final Platelet Count 08/02/2022 161 140 - 400 Thousand/uL Final Mean Platelet Volume (MPV) 08/02/2022 11.2 7.5 - 12.5 fL Final Absolute Neutrophils 08/02/2022 2,772 1,500 - 7,800 cells/uL Final ABSOLUTE LYMPHOCYTES - [facility] 08/02/2022 1,168 850 - 3,900 cells/uL Final Monocytes Absolute 08/02/2022 202 200 - 950 cells/uL Final ABSOLUTE EOSINOPHILS - [facility] 08/02/2022 29 15 - 500 cells/uL Final ABSOLUTE BASOPHILS - [facility] 08/02/2022 29 0 - 200 cells/uL Final Neutrophils Relative 08/02/2022 66 % Final Lymphocytes Absolute 08/02/2022 27.8 % Final MONOCYTES - [facility] 08/02/2022 4.8 % Final EOSINOPHILS - [facility] 08/02/2022 0.7 % Final BASOPHILS - [facility] 08/02/2022 0.7 % Final GLUCOSE 08/02/2022 94 65 - 99 mg/dL Final Comment: Fasting reference interval Urea Nitrogen (BUN) 08/02/2022 12 7 - 25 mg/dL Final Creatinine 08/02/2022 0.66 0.50 - 0.96 mg/dL Final EGFR 08/02/2022 123 > OR = 60 mL/min/1.73m2 Final Comment: The eGFR is based on the CKD-EPI 2020 equation. To calculate the new eGFR from a previous Creatinine or Cystatin C result, go to https://www.kidney.org/professio nals/ kdoqi/gfr%5Fcalculator BUN/CREATININE RATIO 08/02/2022 NOT APPLICABLE (calc) Final SODIUM 08/02/2022 137 135 - 146 mmol/L Final POTASSIUM 08/02/2022 4.2 3.5 - 5.3 mmol/L Final CHLORIDE 08/02/2022 106 98 - 110 mmol/L Final Carbon Dioxide (CO2) 08/02/2022 25 20 - 32 mmol/L Final CALCIUM 08/02/2022 9.0 8.6 - 10.2 mg/dL Final PROTEIN, TOTAL - [facility] 08/02/2022 6.6 6.1 - 8.1 g/dL Final ALBUMIN - [facility] 08/02/2022 4.3 3.6 - 5.1 g/dL Final GLOBULIN - [facility] 08/02/2022 2.3 1.9 - 3.7 g/dL (calc) Final ALBUMIN/GLOBULIN RATIO - [facility] 08/02/2022 1.9 1.0 - 2.5 (calc) Final BILIRUBIN, TOTAL - [facility] 08/02/2022 0.7 0.2 - 1.2 mg/dL Final ALKALINE PHOSPHATASE 08/02/2022 60 31 - 125 U/L Final AST - [facility] 08/02/2022 14 10 - 30 U/L Final ALT - [facility] 08/02/2022 14 6 - 29 U/L Final IRON, TOTAL 08/02/2022 84 40 - 190 mcg/dL Final IRON BINDING CAPACITY 08/02/2022 369 250 - 450 mcg/dL (calc) Final % SATURATION 08/02/2022 23 16 - 45 % (calc) Final FERRITIN 08/02/2022 39 16 - 154 ng/mL Final VITAMIN B12 08/02/2022 381 200 - 1,100 pg/mL Final Comment: Please Note: Although the reference range for vitamin B12 is 200-1100 pg/mL, it has been reported that between 5 and 10% of patients with values between 200 and 400 pg/mL may experience neuropsychiatric and hematologic abnormalities due to occult B12 deficiency; less than 1% of patients with values above 400 pg/mL will have symptoms. FOLATE, SERUM 08/02/2022 >24.0 ng/mL Final Comment: Reference Range Low: <3.4 Borderline: 3.4-5.4 Normal: >5.4 PATHOLOGIST REVIEW OF PERIPHERAL S* 08/02/2022 Final Comment: - Normocytic normochromic red blood cells. - Normal white blood cell number and morphology. - Normal platelet number and morphology. --- Reviewed by: Bruce Horowitz MD Transcribe Orders on 07/24/2022 Component Date Value Ref Range Status Case Report 07/24/2022 Final Value:Peripheral Smear Case: [id number] Authorizing Provider: Adriane Alcantara DO Collected: 07/24/2022 111 Ordering Location: [facility] Laboratory Received: 07/24/20221116 Pathologist: Srini Verdugo DO Specimen: Blood, Venous Final Diagnosis 07/24/2022 Final Value:This result contains rich text formatting which cannot be displayed here. Pathologist Interpretation Location 07/24/2022 [facility], [address] [place] [address], CLIA: [id number]; Joint Commission: [id number]; CAP: [id number] Final Gross Description 07/24/2022 Final Value:This result contains rich text formatting which cannot be displayed here. Auto WBC 07/24/2022 6.0 3.6 - 10.7 10*3/uL Final RBC 07/24/2022 4.73 3.8 - 5.20 10*6/uL Final Hemoglobin 07/24/2022 13.8 11.7 - 16.0 g/dL Final Hematocrit 07/24/2022 40.8 35.0 - 47.0 % Final MCV 07/24/2022 86.3 80.0 - 98.0 fL Final MCH 07/24/2022 29.2 26.0 - 34.0 pg Final MCHC 07/24/2022 33.8 32.0 - 36.0 % Final RDW 07/24/2022 11.9 11.5 - 14.5 % Final Platelets 07/24/2022 152 140 - 440 10*3/uL Final MPV 07/24/2022 10.7 7.4 - 12.4 fL Final MPV is a calculated measurement using platelet volume ratio Neutrophils Relative 07/24/2022 70.9 40.0 - 80.0 % Final Lymphocytes Relative 07/24/2022 22.7 20.0 - 40.0 % Final Monocytes Relative 07/24/2022 4.9 2.0 - 10.0 % Final Eosinophils Relative 07/24/2022 0.7 (L) 1.0 - 6.0 % Final Basophils Relative 07/24/2022 0.5 0.0 - 2.0 % Final Immature Grans % 07/24/2022 0.3 (H) <=0.0 % Final Neutrophils Absolute 07/24/2022 4.2 1.8 - 7.0 10*3/uL Final Lymphocytes Absolute 07/24/2022 1.4 1.0 - 4.3 10*3/uL Final Monocytes Absolute 07/24/2022 0.3 0.0 - 0.8 10*3/uL Final Eosinophils Absolute 07/24/2022 0.0 0.0 - 0.5 10*3/uL Final Basophils Absolute 07/24/2022 0.0 0.0 - 0.2 10*3/uL Final Immature Grans Absolute 07/24/2022 0.0 <=0.0 10*3/uL Final Imaging Reviewed: CT abdomen pelvis wo IV contrast Narrative: Patient Name: LONMay : 1995 [facility]#: [id number] Exam Date/Time: 08/11/2022 15:50 Procedure: CT ABDOMEN PELVIS WO IV CONTRAST Ordering Provider: WATSON TERESA Reason For Exam: Abdominal pain, acute, nonlocalized CT ABDOMEN AND PELVIS WITHOUT IV CONTRAST CLINICAL INDICATION: Abdominal pain TECHNIQUE: Multidetector spiral transaxial sequence was performed through the abdomen and pelvis without intravenous contrast. Images were reconstructed at 3 mm slice width at 3 mm interval. Dose reduction was employed with automated exposure control. COMPARISON: None FINDINGS: Exam quality: This examination is limited for the evaluation of solid organs and vascular structures due to the lack of intravenous contrast. Somewhat limited due to lack of intra-abdominal fat planes. Chest base: Normal. Liver: Normal size and contour. No identifiable lesion. Biliary tree: Normal caliber. The gallbladder is nondistended. Spleen: Normal. Adrenals: Normal. Pancreas: Normal. Kidneys: No contour abnormality or focal renal lesion. Renal collecting systems: No calculi, hydronephrosis or ureteral dilatation. Free fluid: None. Retroperitoneal/mesenteric lymphadenopathy: None. Bowel: Normal caliber. The appendix is nondistended. Aorta: Normal caliber. Abdominal wall: Normal. Pelvic organs/viscera: No mass identified. Bladder: No calculi or filling defects. Pelvic lymphadenopathy: None. Osseous structures: No abnormality. Impression: Normal noncontrast CT of the abdomen and pelvis. Report Dictated on Electronically Signed By: Gianni Montano Electronically Signed Date/Time: 08/13/2022 12:48 PM EDT - I have reviewed all available pertinent laboratory, imaging and pathology results with the patient and/or family members today. Assessment/Plan: Diagnosis Plan 1. Neutropenia, unspecified type (HCC) 1) isolated neutropenia, resolved 2) abdominal pain - CT was unremarkable. Consider GI eval. All questions were answered to the satisfaction of the patient and/or family. Return to office as needed. Ok to follow up with PCP. I'll be happy to re-evaluate patient in the future if the need arises. Theresa Watson DO Hematology/Medical Oncology documented in this encounter [facility] 08-02-2022 Note New Patient Hematolo gy/Oncology Office Visit Consultation/Referral Reason: low WBC Referred by: Dr. Alcantara HPI: Dulce Maria Carty is a 26 y.o. female who comes in today for evaluation of a low WBC. Records from her PCP were reviewed and summarized. The patient reports she started feeling ill about 3-4 months ago. She developed abdominal pain and also had protein in her urine. +nausea associated with the abdominal pain. +cramping feeling, but constant. Not worse with food. Feels like she has to have a bowel movement but the pain persists after she has a BM. She was referred to nephrology and underwent testing for the proteinuria, but doesn't think a diagnosis was rendered. (Records requested.) she has dizzy spells and feels lightheaded at times. She was referred to cardiology and diagnosed with vasovagal near syncope. Lab work from 04/13/22 showed a wbc of 3.3, hb 14, plts 153, ANC 1.57. the CBC was repeated a few weeks later and was normal. She denies any fevers or infections. No recent antibiotic use. She has regular menstrual cycles and does not feel they are excessively heavy. No history of autoimmune disorders. LESLY recently was negative. Past Medical History: Diagnosis Date Asthma 09/2016 Breast cyst, left 06/03/2021 Chronic sinusitis 12/2016 ENT eval per [facility] GERD (gastroesophageal reflux disease) 07/2016 EGD per [facility] Hypothyroid 2008 IBS (irritable bowel syndrome) 02/2016 constipation - Colonoscopy per [facility] Past Surgical History: Procedure Laterality Date COLONOSCOPY 02/2016 [facility] TONSILLECTOMY (HISTORICAL) 1999 UPPER GASTROINTESTINAL ENDOSCOPY 11/2016 [facility] Patient Active Problem List Diagnosis Date Noted Breast cyst, left 06/03/2021 Lactating mother 06/03/2021 Other specified hypothyroidism 11/11/2020 Asthma 11/30/2016 Social History Tobacco Use Smoking status: Never Smokeless tobacco: Former Quit date: 04/05/2016 Vaping Use Vaping Use: Never used Substance Use Topics Alcohol use: Not Currently Drug use: No Comment: caffiene: none Family History Problem Relation Name Age of Onset Ovarian cancer Neg Hx Diabetes Mother 35.00 on insulin at > 50 Lung cancer Maternal Grandfather Diabetes Maternal Cousin Gayle Colon cancer Maternal Grandmother 80.00 No Known Problems Paternal Grandmother Thyroid cancer Maternal Cousin Gayle Pancreatic cancer Mother Breast cancer Neg Hx No Known Problems Paternal Grandfather Other ([id number]) Father Dionisio 54.00 MVA in 2011 No Known Problems Sister Prostate cancer Maternal Grandfather Allergies Allergen Reactions Alprazolam Unknown Quetiapine Other Current Outpatient Medications Medication Sig Dispense Refill Desiccated Beef Liver powder MV-Min-Fe Fum-FA-DHA ( 1 PO) Take by mouth. Probiotic Product (PROBIOTIC DAILY PO) Take by mouth. No current facility-administered medications for this visit. Review of Systems Constitutional: Positive for fatigue. Negative for appetite change, chills, diaphoresis, fever and unexpected weight change. HENT: Negative for dental problem, mouth sores, nosebleeds, sneezing, sore throat, tinnitus, trouble swallowing and voice change. Eyes: Negative for photophobia, pain and visual disturbance. Respiratory: Negative for cough, shortness of breath and wheezing. Cardiovascular: Negative for chest pain, palpitations and leg swelling. Gastrointestinal: Positive for abdominal pain. Negative for abdominal distention, blood in stool, constipation, diarrhea, nausea and vomiting. Endocrine: Negative for cold intolerance and heat intolerance. Genitourinary: Negative for difficulty urinating, frequency, hematuria and urgency. Musculoskeletal: Negative for arthralgias, back pain, gait problem and myalgias. Skin: Negative for pallor and rash. Allergic/Immunologic: Negative for immunocompromised state. Neurological: Positive for dizziness and light-headedness. Negative for syncope, weakness, numbness and headaches. Hematological: Negative for adenopathy. Does not bruise/bleed easily. Psychiatric/Behavioral: Negative for confusion and sleep disturbance. The patient is not nervous/anxious. All other systems reviewed and are negative. Vitals: 08/02/22 1026 BP: 105/73 BP Location: Right arm Patient Position: Sitting Pulse: 84 Temp: 98.7 ?F (37.1 ?C) TempSrc: Temporal SpO2: 100% Weight: 166 lb 4.8 oz (75.4 kg) Height: 5' 6 (1.676 m) ECOG PS = 0 Physical Exam Vitals and nursing note reviewed. Constitutional: General: She is not in acute distress. Appearance: Normal appearance. She is not ill-appearing. HENT: Head: Normocephalic and atraumatic. Nose: Nose normal. Mouth/Throat: Pharynx: Oropharynx is clear. No oropharyngeal exudate or posterior oropharyngeal erythema. Eyes: General: No scleral icterus. Extraocular Movements: Extraocular movements intact. Conjunctiva/sclera: Conjunctivae (more content not included)... [facility] 08-02-2022 History of Presen t illness Narrative New Patient Hematology/Oncology Office Visit Consultation/Referral Reason: low WBC Referred by: Dr. Alcantara HPI: Dulce Maria Carty is a 26 y.o. female who comes in today for evaluation of a low WBC. Records from her PCP were reviewed and summarized. The patient reports she started feeling ill about 3-4 months ago. She developed abdominal pain and also had protein in her urine. +nausea associated with the abdominal pain. +cramping feeling, but constant. Not worse with food. Feels like she has to have a bowel movement but the pain persists after she has a BM. She was referred to nephrology and underwent testing for the proteinuria, but doesn't think a diagnosis was rendered. (Records requested.) she has dizzy spells and feels lightheaded at times. She was referred to cardiology and diagnosed with vasovagal near syncope. Lab work from 04/13/22 showed a wbc of 3.3, hb 14, plts 153, ANC 1.57. the CBC was repeated a few weeks later and was normal. She denies any fevers or infections. No recent antibiotic use. She has regular menstrual cycles and does not feel they are excessively heavy. No history of autoimmune disorders. LESLY recently was negative. Past Medical History: Diagnosis Date Asthma 09/2016 Breast cyst, left 06/03/2021 Chronic sinusitis 12/2016 ENT eval per [facility] GERD (gastroesophageal reflux disease) 07/2016 EGD per [facility] Hypothyroid 2008 IBS (irritable bowel syndrome) 02/2016 constipation - Colonoscopy per [facility] Past Surgical History: Procedure Laterality Date COLONOSCOPY 02/2016 [facility] TONSILLECTOMY (HISTORICAL) 1999 UPPER GASTROINTESTINAL ENDOSCOPY 11/2016 [facility] Patient Active Problem List Diagnosis Date Noted Breast cyst, left 06/03/2021 Lactating mother 06/03/2021 Other specified hypothyroidism 11/11/2020 Asthma 11/30/2016 Social History Tobacco Use Smoking status: Never Smokeless tobacco: Former Quit date: 04/05/2016 Vaping Use Vaping Use: Never used Substance Use Topics Alcohol use: Not Currently Drug use: No Comment: caffiene: none Family History Problem Relation Name Age of Onset Ovarian cancer Neg Hx Diabetes Mother 35.00 on insulin at > 50 Lung cancer Maternal Grandfather Diabetes Maternal Cousin Gayle Colon cancer Maternal Grandmother 80.00 No Known Problems Paternal Grandmother Thyroid cancer Maternal Cousin Gayle Pancreatic cancer Mother Breast cancer Neg Hx No Known Problems Paternal Grandfather Other ([id number]) Father Dionisio 54.00 MVA in 2011 No Known Problems Sister Prostate cancer Maternal Grandfather Allergies Allergen Reactions Alprazolam Unknown Quetiapine Other Current Outpatient Medications Medication Sig Dispense Refill Desiccated Beef Liver powder MV-Min-Fe Fum-FA-DHA ( 1 PO) Take by mouth. Probiotic Product (PROBIOTIC DAILY PO) Take by mouth. No current facility-administered medications for this visit. Review of Systems Constitutional: Positive for fatigue. Negative for appetite change, chills, diaphoresis, fever and unexpected weight change. HENT: Negative for dental problem, mouth sores, nosebleeds, sneezing, sore throat, tinnitus, trouble swallowing and voice change. Eyes: Negative for photophobia, pain and visual disturbance. Respiratory: Negative for cough, shortness of breath and wheezing. Cardiovascular: Negative for chest pain, palpitations and leg swelling. Gastrointestinal: Positive for abdominal pain. Negative for abdominal distention, blood in stool, constipation, diarrhea, nausea and vomiting. Endocrine: Negative for cold intolerance and heat intolerance. Genitourinary: Negative for difficulty urinating, frequency, hematuria and urgency. Musculoskeletal: Negative for arthralgias, back pain, gait problem and myalgias. Skin: Negative for pallor and rash. Allergic/Immunologic: Negative for immunocompromised state. Neurological: Positive for dizziness and light-headedness. Negative for syncope, weakness, numbness and headaches. Hematological: Negative for adenopathy. Does not bruise/bleed easily. Psychiatric/Behavioral: Negative for confusion and sleep disturbance. The patient is not nervous/anxious. All other systems reviewed and are negative. Vitals: 08/02/22 1026 BP: 105/73 BP Location: Right arm Patient Position: Sitting Pulse: 84 Temp: 98.7 F (37.1 C) TempSrc: Temporal SpO2: 100% Weight: 166 lb 4.8 oz (75.4 kg) Height: 5' 6 (1.676 m) ECOG PS = 0 Physical Exam Vitals and nursing note reviewed. Constitutional: General: She is not in acute distress. Appearance: Normal appearance. She is not ill-appearing. HENT: Head: Normocephalic and atraumatic. Nose: Nose normal. Mouth/Throat: Pharynx: Oropharynx is clear. No oropharyngeal exudate or posterior oropharyngeal erythema. Eyes: General: No scleral icterus. Extraocular Movements: Extraocular movements intact. Conjunctiva/sclera: Conjunctivae normal. Pupils: Pupils are equal, round, and reactive to light. Cardiovascular: Rate and Rhythm: Normal rate and regular rhythm. Heart sounds: Normal heart sounds. No murmur heard. Pulmonary: Effort: Pulmonary effort is normal. No respiratory distress. Breath sounds: Normal breath sounds. No wheezing. Abdominal: General: Abdomen is flat. Bowel sounds are normal. There is no distension. Palpations: Abdomen is soft. There is no mass. Tenderness: There is no abdominal tenderness. There is no guarding. Musculoskeletal: General: No swelling or tenderness. Normal range of motion. Cervical back: Normal range of motion and neck supple. Right lower leg: No edema. Left lower leg: No edema. Lymphadenopathy: Cervical: No cervical adenopathy. Skin: General: Skin is warm and dry. Findings: No bruising or rash. Neurological: General: No focal deficit present. Mental Status: She is alert and oriented to person, place, and time. Mental status is at baseline. Psychiatric: Mood and Affect: Mood normal. Thought Content: Thought content normal. Imaging/Labs: Transcribe Orders on 07/24/2022 Component Date Value Ref Range Status Case Report 07/24/2022 Final Value:Peripheral Smear Case: [id number] Authorizing Provider: Adriane Alcantara DO Collected: 07/24/20221116 Ordering Location: [facility] Laboratory Received: 07/24/2022 111 Pathologist: Srini Verdugo DO Specimen: Blood, Venous Final Diagnosis 07/24/2022 Final Value:This result contains rich text formatting which cannot be displayed here. Pathologist Interpretation Location 07/24/2022 [facility], [address] [place] [id number], CLIA: [id number]; Joint Commission: [id number]; CAP: [id number] Final Gross Description 07/24/2022 Final Value:This result contains rich text formatting which cannot be displayed here. Auto WBC 07/24/2022 6.0 3.6 - 10.7 10*3/uL Final RBC 07/24/2022 4.73 3.8 - 5.20 10*6/uL Final Hemoglobin 07/24/2022 13.8 11.7 - 16.0 g/dL Final Hematocrit 07/24/2022 40.8 35.0 - 47.0 % Final MCV 07/24/2022 86.3 80.0 - 98.0 fL Final MCH 07/24/2022 29.2 26.0 - 34.0 pg Final MCHC 07/24/2022 33.8 32.0 - 36.0 % Final RDW 07/24/2022 11.9 11.5 - 14.5 % Final Platelets 07/24/2022 152 140 - 440 10*3/uL Final MPV 07/24/2022 10.7 7.4 - 12.4 fL Final MPV is a calculated measurement using platelet volume ratio Neutrophils Relative 07/24/2022 70.9 40.0 - 80.0 % Final Lymphocytes Relative 07/24/2022 22.7 20.0 - 40.0 % Final Monocytes Relative 07/24/2022 4.9 2.0 - 10.0 % Final Eosinophils Relative 07/24/2022 0.7 (L) 1.0 - 6.0 % Final Basophils Relative 07/24/2022 0.5 0.0 - 2.0 % Final Immature Grans % 07/24/2022 0.3 (H) <=0.0 % Final Neutrophils Absolute 07/24/2022 4.2 1.8 - 7.0 10*3/uL Final Lymphocytes Absolute 07/24/2022 1.4 1.0 - 4.3 10*3/uL Final Monocytes Absolute 07/24/2022 0.3 0.0 - 0.8 10*3/uL Final Eosinophils Absolute 07/24/2022 0.0 0.0 - 0.5 10*3/uL Final Basophils Absolute 07/24/2022 0.0 0.0 - 0.2 10*3/uL Final Immature Grans Absolute 07/24/2022 0.0 <=0.0 10*3/uL Final Imaging Reviewed: ECG 12 lead - CLINIC PERFORMED Sinus Rhythm WITHIN NORMAL LIMITS - I have reviewed all available pertinent laboratory, imaging and pathology results with the patient and/or family members today. Assessment/Plan: Diagnosis Plan 1. Neutropenia, unspecified type (HCC) CBC auto differential Comprehensive metabolic panel Peripheral Blood Smear Iron and TIBC Ferritin Vitamin B12 F[address] abdomen pelvis wo IV contrast CBC auto differential Comprehensive metabolic panel Iron and TIBC Ferritin Vitamin B12 Folate 2. Lower abdominal pain CBC auto differential Comprehensive metabolic panel Peripheral Blood Smear Iron and TIBC Ferritin Vitamin B12 F[address] abdomen pelvis wo IV contrast CBC auto differential Comprehensive metabolic panel Iron and TIBC Ferritin Vitamin B12 Folate 3. Dizziness CBC auto differential Comprehensive metabolic panel Peripheral Blood Smear Iron and TIBC Ferritin Vitamin B12 F[address] abdomen pelvis wo IV contrast CBC auto differential Comprehensive metabolic panel Iron and TIBC Ferritin Vitamin B12 Folate 1) isolated neutropenia - seems to have resolved. Will repeat lab work and peripheral smear today. 2) abdominal pain - unclear etiology. Check CT scan. Patient requested this to be without contrast due to her kidney issues. 3) dizziness/lightheadedness, presyncope - follow up with cardiology as directed All questions were answered to the satisfaction of the patient and/or family. Return to office in 3 weeks to review results of above, or sooner if worrisome signs/symptoms arise. I spent total time 60 minutes counseling or coordinating care, reviewing the medical record, and provided a detailed discussion as noted above. Theresa Watson DO Hematology/Medical Oncology documented in this encounter [facility] 07-26-2022 Note Peripheral smear sli de prepared for evaluation. [facility] Work Phone: 07-04-2022 History of Presen t illness Narrative [facility] Cardiology/Electrophysiology New Patient Clinic Note Chief Complaint: Chief Complaint Patient presents with Dizziness Postural dizziness with variable heartrates Palpitations PVC,PAC History of Present Illness: Dulce Maria Carty is a 26 y.o. female referred here for episodes of near syncope and syncope. She is a healthy 26-year-old who has had orthostatic dizziness since the age of 11. The episodes are always related to change in position. They are typically characterized by diaphoresis, nausea, blurry vision and palpitation. Her has noted her to be pale. She has measured her pulse during these episodes with heart rates in the low 100s, but she has never measured her blood pressure. They typically last several minutes, occur several times a week, and are concentrated around her menstrual period. She has enough aura that she can sit down or lay down and she gets better. She has had occasional loss of consciousness, maybe 3 or 4 times over the last 15 years, and none over the last 3 to 4 years. She is otherwise active. She exercises routinely and fairly strenuously without cardiac symptoms. She does not have palpitation unless the episodes occur. She was recently diagnosed with proteinuria, the etiology of which may be related to exertion. An EKG today is normal. An event monitor in May 2021 showed only single PACs and PVCs. An echo 4 years ago was normal. Assessment and Plan: 1. Dysautonomia/orthostatic hypotension: Fairly classic presentation for vasovagal near syncope/syncope. Her syndrome is more consistent with hypotension rather than postural tachycardia. She is fairly against taking medications. Today we spoke about keeping well-hydrated and liberalizing salt in her diet. I also recommended that she get a blood pressure machine to check her BP and her heart rate when the episodes occur. We also spoke about possible medical therapy with drugs like Florinef or midodrine. For now, I will have her do those behavioral modifications and measure her blood pressure. I will see her back in 1 to 2 months and see how she is doing. We will further discuss medical therapy Past Medical History: Past Medical History: Diagnosis Date Asthma 09/2016 Breast cyst, left 06/03/2021 Chronic sinusitis 12/2016 ENT eval per [facility] GERD (gastroesophageal reflux disease) 07/2016 EGD per [facility] Hypothyroid 2008 IBS (irritable bowel syndrome) 02/2016 constipation - Colonoscopy per [facility] Past Surgical History Past Surgical History: Procedure Laterality Date COLONOSCOPY 02/2016 [facility] TONSILLECTOMY (HISTORICAL) 2000 UPPER GASTROINTESTINAL ENDOSCOPY 11/2016 [facility] Family History Family History Problem Relation Name Age of Onset Ovarian cancer Neg Hx Diabetes Mother 35.00 on insulin at > 50 Lung cancer Maternal Grandfather Diabetes Maternal Cousin Gayle Colon cancer Maternal Grandmother 80.00 No Known Problems Paternal Grandmother Thyroid cancer Maternal Cousin Gayle Pancreatic cancer Mother Breast cancer Neg Hx No Known Problems Paternal Grandfather Other ([id number]) Father Dionisio 54.00 MVA in 2011 No Known Problems Sister Prostate cancer Maternal Grandfather Social History Social History Tobacco Use Smoking status: Never Smokeless tobacco: Former Quit date: 04/05/2016 Vaping Use Vaping Use: Never used Substance Use Topics Alcohol use: Not Currently Drug use: No Comment: caffiene: none Medications: Reviewed Allergies: Reviewed Review of Systems: All other systems were reviewed and are negative other than as noted in the HPI. Physical Examination: Vitals: Blood pressure 130/80, pulse 102, height 5' 6 (1.676 m), weight 165 lb (74.8 kg), SpO2 96 %. Constitutional: Appears well kept and looks stated age; in NAD Psychiatric: A &O x3 Mood is pleasant; Affect is appropriate Musculoskeletal: Normocephalic; no joint swelling; gait steady; 5/5 muscle strength bilaterally in upper and lower extremities; no clubbing or cyanosis HEENT: Pupils are equal and round; Conjunctiva are not injected; Sclera are non-icteric; Airway and Nares are patent; Ears without external abnormalities. Mucosa is pink; Dentition is normal Neck: Supple; No JVD or Bruits; No thyromegaly; No lymphadenopathy Respiratory: Lungs are clear with no rales or wheezes. Respiratory effort is normal and symmetrical bilaterally; Good air movement bilaterally Heart: RRR without ectopy; Nl S1 and S2 no mcrg Abdomen: NABS soft, non-tender, non-distended; no organomegaly; no obvious masses Extremities/Skin: No LE edema; Skin warm to touch and well perfused; skin discoloration is absent; Peripheral Pulses intact Neuro: sensation and motor function are grossly normal. Cranial Nerves are grossly intact Laboratory Tests: Lab Results Component Value Date WBC 3.9 05/22/2022 WBC 5.7 04/28/2022 WBC 4.7 02/17/2022 HGB 13.8 05/22/2022 HGB 13.9 04/28/2022 HGB 14.6 02/17/2022 HCT 41.1 05/22/2022 HCT 41.2 04/28/2022 HCT 43.2 02/17/2022 MCV 86.0 05/22/2022 MCV 85.8 04/28/2022 MCV 84.9 02/17/2022 PLT 159 05/22/2022 PLT 174 04/28/2022 PLT 180 02/17/2022 Lab Results Component Value Date NA 136 05/22/2022 NA 136 02/17/2022 NA 142 01/04/2022 K 4.0 05/22/2022 K 4.8 02/17/2022 K 3.9 01/04/2022 CL 106 05/22/2022 CL 106 02/17/2022 CL 104 01/04/2022 CO2 28 05/22/2022 CO2 28 02/17/2022 CO2 26 01/04/2022 BUN 14 05/22/2022 BUN 17 02/17/2022 BUN 13.2 01/04/2022 CREATININE 0.66 05/22/2022 CREATININE 0.79 02/17/2022 CREATININE 0.80 01/04/2022 GLU 100 01/04/2022 GLU 73 01/03/2022 GLU 79 04/07/2021 Lab Results Component Value Date TSH 0.614 04/24/2022 Lab Results Component Value Date CHOL 229 (A) 04/07/2021 Lab Results Component Value Date HDL 127 (A) 04/07/2021 Lab Results Component Value Date TRIG 38 04/07/2021 Radiology: Reviewed Shante Guzmán MD DATE of SERVICE: 07/04/2022 documented in this encounter [facility] 07-04-2022 History of Presen t illness Narrative [facility] Cardiology/Electrophysiology New Patient Clinic Note Chief Complaint: Chief Complaint Patient presents with Dizziness Postural dizziness with variable heartrates Palpitations PVC,PAC History of Present Illness: Dulce Maria Carty is a 26 y.o. female referred here for episodes of near syncope and syncope. She is a healthy 26-year-old who has had orthostatic dizziness since the age of 11. The episodes are always related to change in position. They are typically characterized by diaphoresis, nausea, blurry vision and palpitation. Her has noted her to be pale. She has measured her pulse during these episodes with heart rates in the low 100s, but she has never measured her blood pressure. They typically last several minutes, occur several times a week, and are concentrated around her menstrual period. She has enough aura that she can sit down or lay down and she gets better. She has had occasional loss of consciousness, maybe 3 or 4 times over the last 15 years, and none over the last 3 to 4 years. She is otherwise active. She exercises routinely and fairly strenuously without cardiac symptoms. She does not have palpitation unless the episodes occur. She was recently diagnosed with proteinuria, the etiology of which may be related to exertion. An EKG today is normal. An event monitor in May 2021 showed only single PACs and PVCs. An echo 4 years ago was normal. Assessment and Plan: 1. Dysautonomia/orthostatic hypotension: Fairly classic presentation for vasovagal near syncope/syncope. Her syndrome is more consistent with hypotension rather than postural tachycardia. She is fairly against taking medications. Today we spoke about keeping well-hydrated and liberalizing salt in her diet. I also recommended that she get a blood pressure machine to check her BP and her heart rate when the episodes occur. We also spoke about possible medical therapy with drugs like Florinef or midodrine. For now, I will have her do those behavioral modifications and measure her blood pressure. I will see her back in 1 to 2 months and see how she is doing. We will further discuss medical therapy Past Medical History: Past Medical History: Diagnosis Date Asthma 09/2016 Breast cyst, left 06/03/2021 Chronic sinusitis 12/2016 ENT eval per [facility] GERD (gastroesophageal reflux disease) 07/2016 EGD per [facility] Hypothyroid 2008 IBS (irritable bowel syndrome) 02/2016 constipation - Colonoscopy per [facility] Past Surgical History Past Surgical History: Procedure Laterality Date COLONOSCOPY 02/2016 [facility] TONSILLECTOMY (HISTORICAL) 1999 UPPER GASTROINTESTINAL ENDOSCOPY 11/2016 [facility] Family History Family History Problem Relation Name Age of Onset Ovarian cancer Neg Hx Diabetes Mother 35.00 on insulin at > 50 Lung cancer Maternal Grandfather Diabetes Maternal Cousin Gayle Colon cancer Maternal Grandmother 80.00 No Known Problems Paternal Grandmother Thyroid cancer Maternal Cousin Gayle Pancreatic cancer Mother Breast cancer Neg Hx No Known Problems Paternal Grandfather Other ([id number]) Father Dionisio 54.00 MVA in 2011 No Known Problems Sister Prostate cancer Maternal Grandfather Social History Social History Tobacco Use Smoking status: Never Smokeless tobacco: Former Quit date: 04/05/2016 Vaping Use Vaping Use: Never used Substance Use Topics Alcohol use: Not Currently Drug use: No Comment: caffiene: none Medications: Reviewed Allergies: Reviewed Review of Systems: All other systems were reviewed and are negative other than as noted in the HPI. Physical Examination: Vitals: Blood pressure 130/80, pulse 102, height 5' 6 (1.676 m), weight 165 lb (74.8 kg), SpO2 96 %. Constitutional: Appears well kept and looks stated age; in NAD Psychiatric: A &O x3 Mood is pleasant; Affect is appropriate Musculoskeletal: Normocephalic; no joint swelling; gait steady; 5/5 muscle strength bilaterally in upper and lower extremities; no clubbing or cyanosis HEENT: Pupils are equal and round; Conjunctiva are not injected; Sclera are non-icteric; Airway and Nares are patent; Ears without external abnormalities. Mucosa is pink; Dentition is normal Neck: Supple; No JVD or Bruits; No thyromegaly; No lymphadenopathy Respiratory: Lungs are clear with no rales or wheezes. Respiratory effort is normal and symmetrical bilaterally; Good air movement bilaterally Heart: RRR without ectopy; Nl S1 and S2 no mcrg Abdomen: NABS soft, non-tender, non-distended; no organomegaly; no obvious masses Extremities/Skin: No LE edema; Skin warm to touch and well perfused; skin discoloration is absent; Peripheral Pulses intact Neuro: sensation and motor function are grossly normal. Cranial Nerves are grossly intact Laboratory Tests: Lab Results Component Value Date WBC 3.9 05/22/2022 WBC 5.7 04/28/2022 WBC 4.7 02/17/2022 HGB 13.8 05/22/2022 HGB 13.9 04/28/2022 HGB 14.6 02/17/2022 HCT 41.1 05/22/2022 HCT 41.2 04/28/2022 HCT 43.2 02/17/2022 MCV 86.0 05/22/2022 MCV 85.8 04/28/2022 MCV 84.9 02/17/2022 PLT 159 05/22/2022 PLT 174 04/28/2022 PLT 180 02/17/2022 Lab Results Component Value Date NA 136 05/22/2022 NA 136 02/17/2022 NA 142 01/04/2022 K 4.0 05/22/2022 K 4.8 02/17/2022 K 3.9 01/04/2022 CL 106 05/22/2022 CL 106 02/17/2022 CL 104 01/04/2022 CO2 28 05/22/2022 CO2 28 02/17/2022 CO2 26 01/04/2022 BUN 14 05/22/2022 BUN 17 02/17/2022 BUN 13.2 01/04/2022 CREATININE 0.66 05/22/2022 CREATININE 0.79 02/17/2022 CREATININE 0.80 01/04/2022 GLU 100 01/04/2022 GLU 73 01/03/2022 GLU 79 04/07/2021 Lab Results Component Value Date TSH 0.614 04/24/2022 Lab Results Component Value Date CHOL 229 (A) 04/07/2021 Lab Results Component Value Date HDL 127 (A) 04/07/2021 Lab Results Component Value Date TRIG 38 04/07/2021 Radiology: Reviewed Shante Guzmán MD DATE of SERVICE: 07/04/2022 documented in this encounter [facility] [employer] 04-17-2022 History of Presen t illness Narrative HPI: Patient here for continued left lower quadrant pain. About a week after her last cycle she had intense pain that almost brought her to the ER but then subsided. Since then has been on and off. She states that occasionally she has not moderate amount of bloating and constipation related with this. She has been seen by her primary care doctor for vague symptoms such as fatigue and was found to have a low white blood cell count. As of right now they are just repeating labs but they have no underlying cause for her symptoms. No pain with intercourse. Pain is somewhat worse with cycles. REVIEW OF SYSTEMS: Gen: denies weight loss, fatigue, fevers/chills : see HPI PHYSICAL EXAM: Vitals: 04/17/22 1135 BP: 137/79 Pulse: 109 Gen: normal appearance, NAD Neuro: AAOx3 Psych: normal affect Lungs: nonlabored breathing May was seen today for follow-up. Diagnoses and all orders for this visit: LLQ pain (Primary) - US pelvis transvaginal; Future - [facility] [place] [facility]; Future Abdominal bloating - [facility] [place] [facility]; Future Change in bowel habit - [facility] [place] [facility]; Future PLAN: Ultrasound done in December 2021 which showed normal ovaries and a possible ruptured ovarian cyst with free fluid in the abdomen; pain at that time did resolve Will repeat ultrasound and call with results unless abnormal will schedule appointment Referral to GI secondary to nature of symptoms Patient to keep appointments with PCP All questions answered On this date, 04/17/22 I have spent 20 minutes reviewing previous notes, test results and face to face with the patient discussing the diagnosis and importance of compliance with the treatment plan as well as documenting on the day of the visit. documented in this encounter [facility] 04-17-2022 Telephone encounter Note S: Patient spoke with [facility] nurse regarding pelvic/abdominal pain and would like to see Dr Sanchez re: this today B: Onset of symptoms/concern [facility] OV on 04/21/[address] Maya A: states insurance may not pay if 1 visit and has symptoms. NO COVID Symptoms R: Scheduled for Same Day appt today 04/17/22 @ 11:45a with Dr Sanchez @ [facility] office. Patient understands care advice. No further needs at this time. Patient instructed to call back with new or worsening symptoms. Reason for Disposition Patient wants to be seen Answer Assessment - Initial Assessment Questions . Protocols used: Pelvic Pain - [id number] [facility] 04-17-2022 Miscellaneous Notes S: Patient spoke with [facility] nurse regarding pelvic/abdominal pain and would like to see Dr Sanchez re: this today B: Onset of symptoms/concern [facility] OV on 04/21/[address] Maya A: states insurance may not pay if 1 visit and has symptoms. NO COVID Symptoms R: Scheduled for Same Day appt today 04/17/22 @ 11:45a with Dr Sanchez @ [facility] office. Patient understands care advice. No further needs at this time. Patient instructed to call back with new or worsening symptoms. Reason for Disposition Patient wants to be seen Answer Assessment - Initial Assessment Questions . Protocols used: Pelvic Pain - [id number] documented in this encounter [facility] 02-10-2021 Note HNO ID: [id number] Author: Ioana Del Toro APRN.SADDLE MAKER Service: ? Author Type: Nurse Practitioner Type: Progress Notes Filed: 02/10/2021 3:41 PM Note Text: BP 111/67 Pulse 85 Temp 36.8 ?C (98.2 ?F) (Oral) Wt 82.4 kg (181 lb 9.6 oz) SpO2 97% Pt triaged by provider due to nature of complaint. Reports generalized periumbilical/upper abdominal pain that started about a week ago and has occurred every day, became significantly worse today and was doubled over in pain earlier, better now but not completely resolved. Pain radiates into chest, feels more burping. [place] a little nauseous, no vomiting. Had some chills and shaking earlier. Had a little acid reflux while , but otherwise no history of GERD. History of diarrhea/constipation issues, had a normal bowel movement today. No other URI symptoms. Discussed limited options for workup of abdominal pain in the express care, pt is reluctant to go to the ER at this time. Recommend f/u with PCP LEONORA and if any worsening pain, go to the ER. Pt verbalized understanding. [facility] 09-17-2020 Hospital Discharg e instructions Teresa Andrade MD - 09/17/2020 Images from the original note were not included. After Your Delivery (the Period): Your Care Instructions Thank you for allowing us to care of you at [facility]. This time can be one of many emotional ups and downs and many changes in your life. In these first weeks try to take good care of yourself because you will likely feel very tired. It may take 4 to 6 weeks to feel like yourself again, and possibly longer if you had a . FOLLOW-UP: Your follow-up care is a ordaz part of your treatment and safety. Follow-up with your OB providerin 4 weeks or as specified by your OB provider. If you had high blood pressure, visit your OB provider within 3-5 days after being home. Most women's blood pressure will return to pre- levels after delivery. However, some patients continue to have problems with their blood pressure, and some even get worse. Very high blood pressure can lead to seizures or stroke which can be life threatening. If ordered by your provider, take your blood pressure at home and call your OB provider if you have a high reading. Your OB provider can write you a prescription for a blood pressure monitor if you do not have one. Be sure to make and go to all appointments, and call your OB provider if you are having problems. It's also a good idea to know your test results and keep a list of the medicines you take. BLEEDING Vaginal bleeding will decrease in amount over the next few weeks. Bleeding may picker and packer and then decrease again around 7-10 days . Use pads instead of tampons for the bloody flow that may last as long as 2 weeks. You will notice that as your activity increases, your flow may increase. Call your provider if you are saturating one maxi pad in an hour & passing large clots for 3 hours or more. ACTIVITY NO SEXUAL activity for 6 weeks or until advised by your OB provider; Nothing in vagina: intercourse, tampons, or douching. Begin to think about your reproductive life plan. Talk to your OB provider about if and when you would like another baby in the future. The recommendation for safe spacing is 18-24 months. Showering is okay; NO tub baths, swimming, or hot tubs. Gradually increase your activity. Resume exercise regimen only after advised by your )OB provider. Avoid lifting anything heavier than ten pounds or a gallon of milk for six weeks. Avoid driving 1 week for vaginal delivery and 2 weeks for section, or longer if you are on prescription pain medicine unless otherwise instructed by your OB provider . Rise slowly from a lying to sitting and then a standing position. Climb stairs carefully. You may feel tired or have a lack of energy. You may continue your vitamin to replenish nutrients post-delivery. Nap when whenever you can to catch up on sleep. EMOTIONS You may feel wilhelm, sad, teary, & overwhelmed for the first 2 weeks ; however, feelings of depression may occur any time within the first year after delivery. Contact your OB provider if you feel you may be showing signs of depression, or have thoughts of harming yourself or or anyone.. WOUND CARE For Vaginal Delivery: Shower daily, and cleanse your perineum (bottom) with mild soap from front to back. Use the plastic squirt bottle until bleeding stops each time you use the restroom instead of wiping with toilet paper. Ease soreness of hemorrhoids and the area between your vagina and rectum with ice compresses or witch oni pads. If used, stitches will dissolve in 4-6 weeks on their own. You may use a sitz bath or soak in a clean tub with drain open and water running for comfort. Kegel exercises will help restore bladder control. To do these tighten your muscles as if you were stopping your urine flow. Hold for a few seconds and then relax. Do these throughout the day. For Section Delivery: Keep your incision clean and dry. If you had steri-strips you may remove these once they start falling off. If you have yary they need to be removed 3-10 daysafter delivery. If you have steri-strips, remove after 7 - 10 days. Do not wear clothing that irritates the incision line. If your incision is in a crease that is not dry, use a hair-dryer to dry the area 3 times a day. If you develop fever, shaking chills, redness, swelling, drainage or discharge from your wound, or if your wound looks like it is coming apart call your provider immediately. BREAST CARE If you develop a warm, red, tender area on your breast or develop a fever contact your OB provider. If your breasts become engorged ask your provider because treatment can vary according to your needs. DIET & CONSTIPATION Eat a well-balanced diet focusing on foods high in fiber and protein such as: whole grain cereals and breads, fruits and vegetables and legumes (eg, beans, lentils) Drink 8-10 glasses of fluids daily, especially water. Limit caffeine. To avoid constipation you may take a mild mgkz-pzq-hktgpaw stool softener (such as colace) as recommended by your OB provider. SWELLING Try to keep your legs elevated when you are sitting or lying down. Stay hydrated and take walks. If you had high blood pressure, weigh yourself at the same time each day. Write down your weight and take the record to your OB provider appointment. MEDICATIONS Take all medications prescribed for you exactly as ordered. Don't take any drugs not prescribed to you or over the counter medicines unless recommended by your provider. Don't smoke. WHEN TO CALL THE OB PROVIDER Signs of infection, including fever and chills Increased bleeding: soaking more than one pad an hour or passing clots the size of an egg or larger. Wounds that become red, swollen or drain pus Vaginal discharge that smells foul New pain, swelling, or tenderness in your legs Pain that you can't control with the medications you've been given Pain, burning, urgency or frequency of urination, or persistent bleeding in the urine Cough, shortness of breath, or serious difficulty catching your breath Chest pain or pain in the upper right area of your belly Headache (very painful) or vision changes like blurry or double vision, seeing spots or 'auras' Swelling that is worse or weight gain of more than 3 pounds in 3 days Depression, suicidal thoughts, or feelings of harming someone else Breasts that are hot, red and accompanied by fever Any cracking or bleeding from the nipple or areola (the dark-colored area of the breast) You may have been given a magnet like this: If so, we encourage you to use it on your refrigerator as a reminder of when to call your OB provider. IIn case of an emergency, call 911 immediately. If you are Covid-19 positive or a Person Under Investigation (PUI) These could be signs that your COVID-19 symptoms are worsening and you may need emergency care: You are severely dizzy or lightheaded. You are confused or can't think clearly. Your face and lips have a blue color. You are unable to respond to others or are very hard to wake up. Prevention steps for People with confirmed or suspected COVID-19 (including persons under investigation) who do not need to be hospitalized and People with confirmed COVID-19 who were hospitalized and determined to be medically stable to go home Your healthcare provider and public health staff will evaluate whe ther you can be cared for at home. If it is determined that you do not need to be hospitalized and can be isolated at home, you will be monitored by staff from your local or state health department. You should follow the prevention steps below until a healthcare provider or local or state health department says you can return to your normal activities. Stay home except to get medical care People who are mildly ill with COVID-19 are able to isolate at home during their illness. You should restrict activities outside your home, except for getting medical care. Do not go to work, school, or public areas. Avoid using public transportation, ride-sharing, or taxis. Separate yourself from other people and animals in your home People: As much as possible, you should stay in a specific room and away from other people in your home. Also, you should use a separate bathroom, if available. Animals: You should restrict contact with pets and other animals while you are sick with COVID-19, just like you would around other people. Although there have not been reports of pets or other animals becoming sick with COVID-19, it is still recommended that people sick with COVID-19 limit contact with animals until more information is known about the virus. When possible, have another member of your household care for your animals while you are sick. If you are sick with COVID-19, avoid contact with your pet, including petting, snuggling, being kissed or licked, and sharing food. If you must care for your pet or be around animals while you are sick, wash your hands before and after you interact with pets and wear a facemask. Call ahead before visiting your provider If you have a medical appointment, call the healthcare provider and tell them that you have or may have COVID-19. This will help the healthcare provider's office take steps to keep other people from getting infected or exposed. Wear a facemask You should wear a facemask when you are around other people (e.g., sharing a room or vehicle) or pets and before you enter a healthcare provider's office. If you are not able to wear a facemask (for example, because it causes trouble breathing), then people who live with you should not stay in the same room with you, or they should wear a facemask if they enter your room. Cover your coughs and sneezes Cover your mouth and nose with a tissue when you cough or sneeze. Throw used tissues in a lined trash can. Immediately wash your hands with soap and water for at least 20 seconds or, if soap and water are not available, clean your hands with an alcohol-based hand crm technical lead that contains at least 60% alcohol. Clean your hands often Wash your hands often with soap and water for at least 20 seconds, especially after blowing your nose, coughing, or sneezing; going to the bathroom; and before eating or preparing food. If soap and water are not readily available, use an alcohol-based hand crm technical lead with at least 60% alcohol, covering all surfaces of your hands and rubbing them together until they feel dry. Soap and water are the best option if hands are visibly dirty. Avoid touching your eyes, nose, and mouth with unwashed hands. Avoid sharing personal household items You should not share dishes, drinking glasses, cups, eating utensils, towels, or bedding with other people or pets in your home. After using these items, they should be washed thoroughly with soap and water. Clean all high-touch surfaces everyday High touch surfaces include counters, tabletops, doorknobs, bathroom fixtures, toilets, phones, keyboards, tablets, and bedside tables. Also, clean any surfaces that may have blood, stool, or body fluids on them. Use a household cleaning spray or wipe, according to the label instructions. Labels contain instructions for safe and effective use of the cleaning product including precautions you should take when applying the product, such as wearing gloves and making sure you have good ventilation during use of the product. Monitor your symptoms Seek prompt medical attention if your illness is worsening (e.g., difficulty breathing). Before seeking care, call your healthcare provider and tell them that you have, or are being evaluated for, COVID-19. Put on a facemask before you enter the facility. These steps will help the healthcare provider's office to keep other people in the office or waiting room from getting infected or exposed. Ask your healthcare provider to call the local or state health department. Persons who are placed under active monitoring or facilitated self-monitoring should follow instructions provided by their local health department or occupational health professionals, as appropriate. When working with your local health department check their available hours. If you have a medical emergency and need to call 911, notify the dispatch personnel that you have, or are being evaluated for COVID-19. If possible, put on a facemask before emergency medical services arrive. Discontinuing home isolation Patients with confirmed COVID-19 should remain under home isolation precautions until the risk of secondary transmission to others is thought to be low. The decision to discontinue home isolation precautions should be made on a [id number]-[id number] basis, in consultation with healthcare providers and state and local health departments. Information on COVID-19 for all patients Call your provider before your next appointment if you develop any of the following symptoms: fever, cough, fatigue, anorexia, shortness of breath, sputum production, and muscle pains. Headache, confusion, rhinorrhea, sore throat, hemoptysis, vomiting, and diarrhea have been reported but are less common. Some persons with COVID-19 have experienced gastrointestinal symptoms such as diarrhea and nausea prior to developing fever and lower respiratory tract signs and symptoms. Ways to [place] with Anxiety & Stress It is normal to feel anxious or worried about COVID-19. You might feel sad about canceling celebrations and staying away from family and friends. Keep in mind that most people do not get severely ill from COVID-19. It is important to have a plan in case you get sick to prevent spreading the disease to others including an Advanced Care Plan (communicating and documenting your desired health care plan with family and healthcare team). You can take care of yourself by: ? Taking a break from watching the news ? Take deep breaths, stretch or meditate ? Getting exercise, eating healthy foods, and drinking plenty of water ? Finding activities you can enjoy inside your home ? Staying in touch with your family and friends. Tell your partner, family, and friends how you are feeling. Advance Care Planning People with COVID-19 may have no symptoms, mild symptoms, such as fever, cough, and shortness of breath or they may have more severe illness, developing severe and fatal pneumonia. As a result, Advance Care Planning with attention to naming a health care decision maker (someone you trust to make healthcare decisions for you if you could not speak for yourself) and sharing other health care preferences is important BEFORE a possible health crisis. Please contact your Primary Care Provider to discuss Advance Care Planning. Learning About Coronavirus (COVID-19) Coronavirus (COVID-19): Overview What is coronavirus (COVID-19)? The coronavirus disease (COVID-19) is caused by a virus. It is an illness that was first found in [facility], in January 2019. It has since spread worldwide. The virus can cause fever, cough, and trouble breathing. In severe cases, it can cause pneumonia and make it hard to breathe without help. It can cause . Coronaviruses are a large group of viruses. They cause the common cold. They also cause more serious illnesses like [place] East respiratory syndrome (MERS) and severe acute respiratory syndrome (SARS). COVID-19 is caused by a novel coronavirus. That means it's a new type that has not been seen in people before. This virus spreads looggu-rx-wpjzhp through droplets from coughing and sneezing. It can also spread when you are close to someone who is infected. It is always good practice to clean high touch surfaces frequently and avoid touching your mouth, nose and eyes until you have washed your hands if you touched these areas. What can you do to protect yourself from coronavirus (COVID-19)? The best way to protect yourself from getting sick is to: Wear a face mask. Avoid areas where there is an outbreak. Avoid contact with people who may be infected. Wash your hands often with soap or alcohol-based hand sanitizers. Avoid crowds and try to stay at least 6 feet away from other people. Wash your hands often, especially after you cough or sneeze. Use soap and water, and scrub for at least 20 seconds. If soap and water aren't available, use an alcohol-based hand crm technical lead. Call 911 anytime you think you may need emergency care. For example, call if: You have severe trouble breathing. (You can't talk at all.) You have constant chest pain or pressure. You are severely dizzy or lightheaded. You are confused or can't think clearly. Your face and lips have a blue color. You pass out (lose consciousness) or are very hard to wake up. Call your OB Provider now if you develop symptoms such as: Shortness of breath. Fever. Cough. If you need to get care, call ahead to the provider's office for instructions before you go. Make sure you wear a face mask, to prevent exposing other people to the virus. Where can you get the latest information? The following health organizations are tracking and studying this virus. Their websites contain the most up-to-date information. You'll also learn what to do if you think you may have been exposed to the virus. [place]. Centers for Disease Control and Prevention (CDC): The CDC provides updated news about the disease and travel advice. The website also tells you how to prevent the spread of infection. www.cdc.gov World Health Organization (WHO): WHO offers information about the virus outbreaks. WHO also has travel advice. www.who.int Current as of: May 07, 2019 Content Version: 12. [employer]. Care instructions adapted under license by your healthcare professional. If you have questions about a medical condition or this instruction, always ask your healthcare professional. [employer] disclaims any warranty or liability for your use of this information. General Recommendations for Routine Cleaning and Disinfection of Households Community members can practice routine cleaning of frequently touched surfaces (for example: tables, doorknobs, light switches, handles, desks, toilets, faucets, sinks) with household dredge pipe installer and EPA-registered disinfectants that are appropriate for the surface, following label instructions. Labels contain instructions for safe and effective use of the cleaning product including precautions you should take when applying the product, such as wearing gloves and making sure you have good ventilation during use of the product. These guidelines are focused on household settings and are meant for the general public. Cleaning refers to the removal of germs, dirt, and impurities from surfaces. Cleaning does not kill germs, but by removing them, it lowers their numbers and the risk of spreading infection. Disinfecting refers to using chemicals to kill germs on surfaces. This process does not necessarily clean dirty surfaces or remove germs, but by killing germs on a surface after cleaning, it can further lower the risk of spreading infection. General Recommendations for Cleaning and Disinfection of Households with People Isolated in Home Care - Confirmed or suspected COVID 19 Household members should educate themselves about COVID-19 symptoms and preventing the spread of COVID-19 in homes. Clean and disinfect high-touch surfaces daily in household common areas (e.g. tables, hard-backed chairs, doorknobs, light switches, remotes, handles, desks, toilets, sinks) o In the bedroom/bathroom dedicated for an ill person: consider reducing cleaning frequency to as-needed (e.g., soiled items and surfaces) to avoid unnecessary contact with the ill person. - As much as possible, an ill person should stay in a specific room and away from other people in their home. - The caregiver can provide personal cleaning supplies for an ill person's room and bathroom, unless the room is occupied by child or another person for whom such supplies would not be appropriate. These supplies include tissues, paper towels, dredge pipe installer and EPA-registered disinfectants (see list link at CDC website). - If a separate bathroom is not available, the bathroom should be cleaned and disinfected after each use by an ill person. If this is not possible, the caregiver should wait as long as practical after use by an ill person to clean and disinfect the high-touch surfaces. How to clean and disinfect: Hard Surfaces Wear disposable gloves when cleaning and disinfecting surfaces. Gloves should be discarded after each cleaning. If reusable gloves are used, those gloves should be dedicated for cleaning and disinfection of surfaces for COVID-19 and should not be used for other purposes. Consult the algology teacher's instructions for cleaning and disinfection products used. Clean hands immediately after gloves are removed. If surfaces are dirty, they should be cleaned using a detergent or soap and water prior to disinfection. For disinfection, diluted household bleach solutions, alcohol solutions with at least 70% alcohol, and most common EPA-registered household disinfectants should be effective. o Diluted household bleach solutions can be used if appropriate for the surface. Follow algology teacher's instructions for application and proper ventilation. Check to ensure the product is not past its expiration date. Never mix household bleach with ammonia or any other cleanser. Unexpired household bleach will be effective against coronaviruses when properly diluted. - Prepare a bleach solution by mixing: - 5 tablespoons (1/3rd cup) bleach per gallon of water or - 4 teaspoons bleach per quart of water o Products with EPA-approved emerging viral pathogens [facility] ic[facility]ternal icon are expected to be effective against COVID-19 based on data for harder to kill viruses. Follow the algology teacher's instructions for all cleaning and disinfection products (e.g., concentration, application method and contact time, etc.). Soft (porous) surfaces such as carpeted floor, rugs, and drapes Remove visible contamination if present and clean with appropriate dredge pipe installer indicated for use on these surfaces. After cleaning: Launder items as appropriate in accordance with the algology teacher's instructions. If possible, launder items using the warmest appropriate water setting for the items and dry items completely, or Clothing, towels, linens and other items that go in the laundry Wear disposable gloves when handling dirty laundry from an ill person and then discard after each use. If using reusable gloves, those gloves should be dedicated for cleaning and disinfection of surfaces for COVID-19 and should not be used for other household purposes. Clean hands immediately after gloves are removed. o If no gloves are used when handling dirty laundry, be sure to wash hands afterwards. o If possible, do not shake dirty laundry. This will minimize the possibility of dispersing virus through the air. o Launder items as appropriate in accordance with the algology teacher's instructions. If possible, launder items using the warmest appropriate water setting for the items and dry items completely. Dirty laundry from an ill person can be washed with other people's items. o Clean and disinfect clothes hampers according to guidance above for surfaces. If possible, consider placing a bag loader that is either disposable (can be thrown away) or can be laundered. [facility] has a list of EPA approved cleaning products on their website - https://www.cdc.gov/coronavirus/ 2019-ncov/community/home/cleanin g-disinfection.html https://www.Elephant.is.co m/Zgqgd-Wotxiwlggdn-Ewdtcuzk-Pro ducts-List.pdf Grocery Stores with delivery and picker and packer services: [employer]: Free picker and packer at locations Delivery is $12.95 a month Website - [employer]: [employer] $2.95 (1st order is free) Delivery is $14.95 Website - [employer]: supervisor park workers is free Delivery is $5.95 [employer]: supervisor park workers is $4.95 Delivery is $9.95 [employer]: supervisor park workers is $4.95 Delivery is $9.95 [employer]: Can be ordered for delivery and picker and packer with Andela Website - www.[email or web address]: Free deliver for first 3 orders of $35 or more Website [employer] Will deliver from [employer], [employer], [employer], and [employer]. Annual membership is $99 Monthly membership is $14 documented in this encounter [facility] Work Phone: 09-17-2020 Note Department of Obstet rics and Gynecology Delivery Discharge Summary Admission on 09/14/2020 11:47 AM Reason for admission: LT IOL Intrapartum Course: Induced with cytotec, FB, pitocin. Labor course normal. 41w4d PC-01 Indications for Delivery: Was patient delivered between 37w0d - 65m3wkniml? NO Surgical Operations & Procedures: Date of delivery: 09/15/20 Delivery Type: spontaneous vaginal Anesthesia: Epidural anesthesia Laceration(s): 1st degree and periurethral Delivery Complications: none EBL: 200 cc Pertinent Findings & Procedures: Information for the patient's : Bharathi Carty May [[id number]] male Weight: 8 lb 10.8 oz (3.935 kg) Apgars: Information for the patient's : Bharathi Carty May [[id number]] One Minute : 7 Five Minute : 8 Course: Uncomplicated : Male infant, circumcision completed Blood Type/Rh: O POS Antibody Screen: Antibody Screen Date Value Ref Range Status 09/14/2020 NEG NA Final Rubella: Lab Results Component Value Date RUBELLAIGG 3.8 02/27/2020 Contraception: no method : yes VTE Prophylaxis: Not Indicated Meds: Machelle Dulce Maria Cesar Home Medication Instructions YVES:[id number] Printed on:09/17/20 0759 Medication Information ibuprofen (ADVIL;MOTRIN) 600 MG tablet Take 1 tablet by mouth every 6 hours as needed for Pain MV-Min-Fe Fum-FA-DHA ( 1 PO) Take by mouth Probiotic Product (PROBIOTIC-10 PO) Take 1 tablet by mouth daily Activity: Activity as tolerated Diet: Regular diet Follow up Care: Follow up appointment in 2 weeks with OBGYN Condition on discharge: Stable Discharge to: Home Discharge date: 09/17/2020 Discharge Dx: s/p Instructions to Patient:: Pelvic Rest (no intercourse, tampons, douching, etc) x 6 weeks Specific discharge instruction printed Indication for care in labor or delivery [O75.9] Patient Active Problem List Diagnosis ? Asthma ? Hypothyroid in , antepartum ? care, antepartum ? Rubella non-immune status, antepartum ? Heart palpitations ? Indication for care in labor or delivery Comments: Home care, Follow-up care and control were reviewed. Signs and symptoms of mastitis and Post Depression were reviewed. The patient is to notify her physician if any of these occur. Teresa Andrade MD on 09/17/2020 at 7:59 AM [facility] 09-17-2020 Hospital course Narrative Images from the original note were not included. Department of Obstetrics and Gynecology Delivery Discharge Summary Admission on 09/14/2020 11:47 AM Reason for admission: LT IOL Intrapartum Course: Induced with cytotec, FB, pitocin. Labor course normal. 41w4d PC-01 Indications for Delivery: Was patient delivered between 37w0d - 52m7plecuq? NO Surgical Operations & Procedures: Date of delivery: 09/15/20 Delivery Type: spontaneous vaginal Anesthesia: Epidural anesthesia Laceration(s): 1st degree and periurethral Delivery Complications: none EBL: 200 cc Pertinent Findings & Procedures: Information for the patient's : Bharathi Carty May [[id number]] male Weight: 8 lb 10.8 oz (3.935 kg) Apgars: Information for the patient's : Bharathi Carty May [[id number]] One Minute : 7 Five Minute : 8 Course: Uncomplicated Infant: Male infant, circumcision completed Blood Type/Rh: O POS Antibody Screen: Antibody Screen Date Value Ref Range Status 09/14/2020 NEG NA Final Rubella: Lab Results Component Value Date RUBELLAIGG 3.8 02/27/2020 Contraception: no method : yes VTE Prophylaxis: Not Indicated Meds: Dulce Maria Carty Home Medication Instructions YVES:[id number] Printed on:09/17/20 0759 Medication Information ibuprofen (ADVIL;MOTRIN) 600 MG tablet Take 1 tablet by mouth every 6 hours as needed for Pain MV-Min-Fe Fum-FA-DHA ( 1 PO) Take by mouth Probiotic Product (PROBIOTIC-10 PO) Take 1 tablet by mouth daily Activity: Activity as tolerated Diet: Regular diet Follow up Care: Follow up appointment in 2 weeks with OBGYN Condition on discharge: Stable Discharge to: Home Discharge date: 09/17/2020 Discharge Dx: s/p Instructions to Patient:: Pelvic Rest (no intercourse, tampons, douching, etc) x 6 weeks Specific discharge instruction printed Indication for care in labor or delivery [O75.9] Patient Active Problem List Diagnosis Asthma Hypothyroid in , antepartum care, antepartum Rubella non-immune status, antepartum Heart palpitations Indication for care in labor or delivery Comments: Home care, Follow-up care and control were reviewed. Signs and symptoms of mastitis and Post Depression were reviewed. The patient is to notify her physician if any of these occur. Teresa Andrade MD on 09/17/2020 at 7:59 AM documented in this encounter [facility] Work Phone: 09-17-2020 History of Presen t illness Narrative Images from the original note were not included. POST DAY # 2 May A Machelle, 24 y.o. This patient was seen & examined today. Her was complicated by: Patient Active Problem List Diagnosis Asthma Hypothyroid in , antepartum care, antepartum Rubella non-immune status, antepartum Heart palpitations Indication for care in labor or delivery Today she is doing well without any chief complaint. Her lochia is light. She denies chest pain, shortness of breath, headache and blurred vision. She is ambulating well. She is tolerating solids. Vital Signs: Vitals: 09/15/20 2135 09/16/20 0808 09/16/20 1913 09/16/20 2107 BP: 110/73 109/65 128/77 116/83 Pulse: 87 93 93 91 Resp: 16 17 18 18 Temp: 97.3 F (36.3 C) 97.8 F (36.6 C) 98.3 F (36.8 C) 99.3 F (37.4 C) TempSrc: Temporal Temporal Temporal Temporal SpO2: 97% 97% 97% 97% Weight: Height: Physical Exam: General: no apparent distress, alert and cooperative Affect: appropriate Lungs: No increased work of breathing, good air exchange Abdomen: abdomen soft, non-distended, non-tender Fundus: non-tender, normal size, firm, below umbilicus Extremities: no calf tenderness, non edematous Lab: Lab Results Component Value Date HGB 13.5 09/14/2020 Lab Results Component Value Date HCT 40.2 09/14/2020 O POS Antibody Screen: Antibody Screen Date Value Ref Range Status 09/14/2020 NEG NA Final Lab Results Component Value Date RUBELLAIGG 3.8 02/27/2020 LABOR DELIVERY ??? SCD's ONLY (labor through ambulation) SCD's PLUS Prophylactic Anticoagulation until discharge SCD's PLUS Prophylactic Anticoagulation for 6 weeks SCD's PLUS Therapeutic Anticoagulation for 6 weeks Vaginal Delivery [] BMI ? 40 kg/m2 Delivery All patients Vaginal Delivery [] BMI ? 40 kg/m2 AND [] Antepartum hospitalization ? 72 hours within the past month Delivery 1 Major Risk Factor: [] BMI ? 35 kg/m2 [] Low Risk Thrombophilia [] PPH+RBCs, IR, or operation [] Infection+Antibiotics [] Antepartum hospitalization ? 72 hours within the past month [] PMH: Sickle Cell, SLE, Cardiac Dz, Active IBD, Active Cancer, Nephrotic Syndrome OR 2 Minor Risk Factors: [] Multiple gestation [] Age > 40 [] PPH ? 1,000cc [] (+)FMH of VTE [] Smoker [] Preeclampsia [] BMI ? 40 kg/m2 AND [] Low Risk Thrombophilia OR ANY OF THE FOLLOWING: [] High Risk Thrombophilia without prior VTE [] Low Risk Thrombophilia with (+)FMH of VTE [] Any single prior VTE ANY OF THE FOLLOWING: [] Already on LMWH/UFH [] Multiple prior VTE [] High Risk Thrombophilia with prior VTE Low Risk Thrombophilia: FVL (heterozygous), Prothrombin (heterozygous), Protein C, Protein S High Risk Thrombophilia: FVL (homozygous), Prothrombin (homozygous), FVL+Prothrombin (heterozygous), Antithrombin III, APLS Assessment/Plan: Dulce Maria Carty is PPD # 2 s/p 1. Care - Doing well, VSS - Male infant - Breast feeding - Contraception: Per Private Attending - Encourage ambulation - VTE Prophylaxis: Not Indicated 2. Hypothyroidism - Last TSH 0.971, Free T4 0.92 on 06/16/2020 - currently not taking medications - asymptomatic 3. Rubella non-immune - MMR vaccine prior to discharge 4. Exercise induced asthma - asymptomatic this morning - rare albuterol use - no hospitalizations or intubations 5. Disposition: Continue current care. Based on my clinical assessment, this patient is safe for self discharge (does not need transport by wheelchair) if she so chooses. Provider's Name: MD TIMOTHY Mitchell, DO 09/17/2020, 6:01 AM I reviewed and agree with the care provided by the resident/CNM during the visit including the patient's medical history, the resident's findings in the physical exam, patient's diagnosis and treatment plan. Nutrition rescreen completed. Patient assigned a level 1. CARTER Parson Images from the original note were not included. POST DAY # 1 May A Machelle, 24 y.o. This patient was seen & examined today. Her was complicated by: Patient Active Problem List Diagnosis Asthma Hypothyroid in , antepartum care, antepartum Rubella non-immune status, antepartum Heart palpitations Indication for care in labor or delivery Today she is doing well without any chief complaint. Her lochia is light. She denies chest pain, shortness of breath and headache. She is ambulating well. She is tolerating solids. Vital Signs: Vitals: 09/15/20 1416 09/15/20 1431 09/15/20 1741 09/15/20 2135 BP: 115/63 (!) 111/52 119/78 110/73 Pulse: 81 85 78 87 Resp: 18 16 Temp: 97.3 F (36.3 C) 97.3 F (36.3 C) TempSrc: Temporal Temporal SpO2: 98% 97% Weight: Height: Physical Exam: General: no apparent distress, alert and cooperative Affect: appropriate Lungs: No increased work of breathing, good air exchange Abdomen: abdomen soft, non-distended, non-tender Fundus: non-tender, normal size, firm, below umbilicus Extremities: no calf tenderness, non edematous Lab: Lab Results Component Value Date HGB 13.5 09/14/2020 Lab Results Component Value Date HCT 40.2 09/14/2020 O POS Antibody Screen: Antibody Screen Date Value Ref Range Status 09/14/2020 NEG NA Final Lab Results Component Value Date RUBELLAIGG 3.8 02/27/2020 LABOR DELIVERY ??? SCD's ONLY (labor through ambulation) SCD's PLUS Prophylactic Anticoagulation until discharge SCD's PLUS Prophylactic Anticoagulation for 6 weeks SCD's PLUS Therapeutic Anticoagulation for 6 weeks Vaginal Delivery [] BMI ? 40 kg/m2 Delivery All patients Vaginal Delivery [] BMI ? 40 kg/m2 AND [] Antepartum hospitalization ? 72 hours within the past month Delivery 1 Major Risk Factor: [] BMI ? 35 kg/m2 [] Low Risk Thrombophilia [] PPH+RBCs, IR, or operation [] Infection+Antibiotics [] Antepartum hospitalization ? 72 hours within the past month [] PMH: Sickle Cell, SLE, Cardiac Dz, Active IBD, Active Cancer, Nephrotic Syndrome OR 2 Minor Risk Factors: [] Multiple gestation [] Age > 40 [] PPH ? 1,000cc [] (+)FMH of VTE [] Smoker [] Preeclampsia [] BMI ? 40 kg/m2 AND [] Low Risk Thrombophilia OR ANY OF THE FOLLOWING: [] High Risk Thrombophilia without prior VTE [] Low Risk Thrombophilia with (+)FMH of VTE [] Any single prior VTE ANY OF THE FOLLOWING: [] Already on LMWH/UFH [] Multiple prior VTE [] High Risk Thrombophilia with prior VTE Low Risk Thrombophilia: FVL (heterozygous), Prothrombin (heterozygous), Protein C, Protein S High Risk Thrombophilia: FVL (homozygous), Prothrombin (homozygous), FVL+Prothrombin (heterozygous), Antithrombin III, APLS Assessment/Plan: May Machelle is PPD # 1 s/p 1. Care - Doing well, VSS - Male infant - Breast feeding - Contraception: Per Private Attending - Encourage ambulation - VTE Prophylaxis: Not Indicated 2. Hypothyroidism Hx of hypothyroidism prior to , was on levothyroxine which was d/c in 2017 after normal TSH Last TSH 0.971, Free T4 0.92 on 06/16/2020 Had palpitations in third trimester, seen by cardiology, workup normal Asymptomatic 3. Rubella non-immune MMR prior to DC 4. Exercise induced asthma Rare albuterol use, asymptomatic 5. Disposition: Continue current care. Based on my clinical assessment, this patient is safe for self discharge (does not need transport by wheelchair) if she so chooses. Provider's Name: MD REED Mitchell DO 09/16/2020, 5:25 AM I reviewed and agree with the care provided by the resident during or immediately following the visit including the patient's medical history, the resident's findings in the physical exam, patient's diagnosis and treatment plan. Images from the original note were not included. Labor Progress Note Date: 09/14/2020 Time: 3:22 PM Subjective: May Cesar Carty is a 24 y.o. female at 41w3d admitted for IOL-LT Hypothyroidism in - hx of hypothyroidism prior to , was on levothyroxine which was d/c in 2017 after normal TSH - last TSH 0.971, Free T4 0.92 on 06/16/2020 - had palpitations in third trimester, seen by cardiology, workup normal - continue to monitor sx Rubella non-immune status - MMR vaccine Exercise-induced Asthma - rare albuterol use - no hospitalizations or intubations Cx:3 FHP: defer FHT: cat I [place]:rare A/P: 1. IOL-LT: Cytotec and 60ccFB placed at this time. Pt tolerated the procedure well. FHT cat I with moderate variability and spont accels. BP normotensive. Cx: defer FHP: defer FHT: cat I [place]:irritability A/P: 1. IOL-LT: 60ccFB in place. FHT cat I with moderate variability and spont accels. SROM @1800, light meconium. BP normotensive. Agree with above medical student note. Contractions q 2 min. Will start low dose pitocin when able. CCM. Cytotec time up. Contractions not tracing well. Will start low dose pitocin when able. FHT cat I. BP's normotensive to mild range. CCM. Cx:defer FHP: defer FHT: Cat II [place]:irritable, q5min A/P: 1. IOL-LT FHR Cat II with a baseline of 130's, moderate variability, accelerations present, and intermittent late and rare variable decelerations present. Periods of minimal variability. Reassuring at this time with spontaneous accelerations and overall moderate variability. Pitocin to be started when cat I. BP's mild range. CCM Cx: Defer FHP: defer FHT: Cat II [place]:irritable q3-4min A/P: 1. IOL-LT FHR Cat II with a baseline of 140s 's, overall moderate variability, accelerations present, and rare variable decelerations present. Short periods of minimal variability, reassuring with spontaneous accelerations and overall moderate variability. FB remains in place. BP's normotensive. CCM Smyth bulb in for 12 hours. Palpated behind head. Removed, now 3-4/80/-2. Pit at 2cc/hr, continue to titrate per protocol. FHT cat I. Contractions q 2 min. BP's normotensive. CCM. Cx: 4/90/-2 FHP: defer FHT: cat I [place]: q 2-3 min A/P: 1. IOL-LT. Pit at 4cc/hr, continue to titrate per protocol. Patient uncomfortable but coping well through contractions and considering getting in the tub. BP's normotensive. CCM. Mild range BP at this time, 4 hours apart. Now meets criteria for gHTN. Will send CMP. Patient getting epidural. Cx:80/-2 FHP: defer FHT: Cat II [place]:q3min; irritability A/P: 1. IOL-LT FHR Cat II with a baseline of 120 's, moderate variability, accelerations present, and likely intermittent late decelerations present. Overall reassuring with moderate variability and spontaneous accelerations, reliably predicting no acidemia at this time. Cervical exam by Dr. Amor at this time and called 80/-2. 0 Pitocin at 4cc/hr. Patient feeling lightheaded, nasueous and dizzy in the supine position. BP's normotensive since last note time. Contractions difficult to trace, will reposition and if still experiencing tracing difficulty will place an IUPC. CCM Cx:/-2 FHP: defer FHT: Cat I [place]: q1-2min A/P: 1. IOL-LT: Baseline of 135, moderate variability, spon accels present, overall cat I. Patient checked at this time due to increased rectal pressure. Pit @4cc/hr, continue to titrate per protocol. Dr. Maya updated vis text. BP normotensive. CCM. In to pt's room per RN request due to increasing pressure with ctx. SVE 10/100/+1. Pushed one time with pt with minimal progress, pt in significant pain. Will drain bladder and have anesthesia evaluate. FHT cat II for variable decels, overall reassuring with moderate variability and accels. Dr. Maya aware. CCM. documented in this encounter [facility] Work Phone: documented in this encounter [facility] Work Phone: Evaluation note* Diagnosis Heart palpitations Palpitations Rubella non-immune status, antepartum Other specified complication, antepartum care, antepartum Hypothyroid in , antepartum Thyroid dysfunction, antepartum Indication for care in labor or delivery Unspecified indication for care or intervention related to labor and delivery, unspecified as to episode of care documented in this encounter [facility] Work Phone: Evaluation note* Diagnosis LLQ pain- Primary Abdominal pain, left lower quadrant Abdominal bloating Flatulence, eructation, and gas pain Change in bowel habit [facility] Diagnosis Chronic kidney disease, stage 2 (mild)- Primary [facility]* Diagnosis Proteinuria, unspecified- Primary [facility]* Diagnosis 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 Palpitations [facility]* Diagnosis Flushing- Primary [facility]* Diagnosis Upper abdominal pain, unspecified- Primary [facility]* Diagnosis 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 Palpitations [facility]* Diagnosis Neutropenia, unspecified (CMS/HCC) (HCC)- Primary Neutropenia, unspecified Upper abdominal pain, unspecified [facility]* Diagnosis Neutropenia, unspecified type (HCC)- Primary Lower abdominal pain Abdominal pain, other specified site Dizziness Dizziness and giddiness [facility]* Diagnosis Neutropenia, unspecified type (HCC) Lower abdominal pain Abdominal pain, other specified site Dizziness Dizziness and giddiness [facility]* Diagnosis Neutropenia, unspecified type (HCC)- Primary [facility]* Diagnosis Proteinuria, unspecified- Primary [facility]* Diagnosis Neutropenia, unspecified (CMS/[facility]) ([facility])- Primary Neutropenia, unspecified Proteinuria, unspecified documented in this encounter [facility] note* Diagnosis Bacteriuria- Primary Other nonspecific finding on examination of urine documented in this encounter [facility] note* Diagnosis Visual changes- Primary Chronic primary headache documented in this encounter [facility] note* Diagnosis Visual changes Chronic primary headache [facility] Diagnosis Neutropenia, unspecified ([facility]) ([facility])- Primary Neutropenia, unspecified documented in this encounter [facility] note* Diagnosis NURA (stress urinary incontinence, female)- Primary Bladder pain Other symptoms involving urinary system Feeling of incomplete bladder emptying POP-Q stage 1 rectocele Dyspareunia in female Endometriosis Endometriosis, site unspecified Adenomyosis Endometriosis of uterus Dysuria documented in this encounter [facility] note* Diagnosis Urge incontinence- Primary documented in this encounter [facility] note* Diagnosis Chronic kidney disease, stage 2 (mild)- Primary documented in this encounter [facility] note* Diagnosis 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 Palpitations Shortness of breath 9 weeks gestation [facility] Consultation (Routine) - Pending Review Specialty Diagnoses / Procedures Referred By Joy irwin Referred To Contact Gastroenterology Diagnoses LLQ pain Abdominal bloating Change in bowel habit Procedures NM OFFICE[facility]-74 [facility]UTES Cynthia Sanchez MD [address] [address] [facility] G[facility] [address] [place] [address] Referral ID Status Reason Start Date Expiration Date Visits Requested Visits Authorized [id number] Pending Review Specialty Services Required 04/17/2022 04/17/2023 1 1 [facility] Consultation (Routine) - Pending Review Specialty Diagnoses / Procedures Referred By Joy irwin Referred To Contact Physical Therapy Diagnoses Bladder pain NURA (stress urinary incontinence, female) Feeling of incomplete bladder emptying Dyspareunia in female Procedures NM OFFICE/OUTPATIENT [facility] 60-74 MINUTES Wojciech Lewis DO [address] [place] [address] [facility] [address] [place] [address] Referral ID Status Reason Start Date Expiration Date Visits Requested Visits Authorized [id number] Pending Review Specialty Services Required 3 11/22/2023 99 99 * Consultation (Routine) - Pending Review Specialty Diagnoses / Procedures Referred By Contac t Referred To Contact Obstetrics and Gynecology Diagnoses Bladder pain Dyspareunia in female Endometriosis Adenomyosis Procedures NM OFFICE/OUTPATIENT [facility] 60-74 MINUTES Wojciech Lewis DO [address] [place] [address] Ioana Ramirez MD [address] [place] [address] Referral ID Status Reason Start Date Expiration Date Visits Requested Visits Authorized [id number] Pending Review Specialty Services Required 3 11/21/2023 1 1 [facility] for referral (narrative)* Consultation (Routine) - Closed Specialty Diagnoses / Procedures Referred By Contac t Referred To Contact Urogynecology Diagnoses Urge incontinence Procedures NM OFFICE/OUTPATIENT [facility] 60-74 MINUTES Adriane Alcantara DO [address] [place] [address] Wojciech Lewis DO [address] [place] [address] Referral ID Status Reason Start Date Expiration Date V isits Requested Visits Authorized [id number] Closed Specialty Services Required 09/04/2022 09/04/2023 1 1 [facility] Health Summary Purpose Family History No Family History Records FoundNo Family History Records FoundNo Family History Records FoundNo Family History Records FoundNo Family History Records FoundNo Family History Records Found Advance Directives Documents on File Type Date Recorded Patient Clearance Coordinator Expl anation Advance Directives and Living Will Power of Wringer Machine Operator Documents on File Type Date Recorded Patient Clearance Coordinator Expl anation ACP-Advance Directive ACP-Power of Wringer Machine Operator Latest Code Status on File Code Status Date Activated Date Inactivated Comments Full Code 09/15/2020 5:50 PM Full Code 09/14/2020 12:28 PM 09/15/2020 5:50 PM Latest Code Status on File Code Status Date Activated Date Inactivated Comments Full Code 09/15/2020 5:50 PM 09/17/2020 8:49 PM Discharge Instructions * Instructions* Leonides Peterson MD - 05/10/2019 Exercise aggressively, vigorously, and often * Attachments The following attachments cannot be sent through Care Everywhere. * Panic Attacks (Croatian) documented in this encounter Assessments Diagnosis Panic attack due to exceptional stress Predominant disturbance of emotions Diagnosis care, antepartum Reason for Referral Specialty Diagnoses / Procedures Referred By Contac t Referred To Contact Radiology Diagnoses Neutropenia, unspecified type (HCC) Lower abdominal pain Dizziness Procedures CT abdomen pelvis wo IV contrast Theresa Watson DO [address] [facility] [address] [place] [address] Referral ID Status Reason Start Date Expiration Date V isits Requested Visits Authorized [id number] Pending Review 08/02/2022 01/29/2023 1 1 Referral ID Status Reason Start Date Expiration Date Visits Re quested Visits Authorized [id number] Closed 08/02/2022 01/29/2023 1 1 Specialty Diagnoses / Procedures Referred By Contac t Referred To Contact Radiology Diagnoses Visual changes Chronic primary headache Procedures MR brain wo contrast Anabella Schmidt DO [address] [place] [address] Referral ID Status Reason Start Date Expiration Date V isits Requested Visits Authorized [id number] Pending Review 09/08/2022 03/07/2023 1 1 Referral ID Status Reason Start Date Expiration Date Visits Re quested Visits Authorized [id number] Closed 09/08/2022 03/07/2023 1 1 Additional Source Comments INFORMATION SOURCE (unrecogn ized section and content) DATE CREATED AUTHOR AUTHOR'S ORGANIZ ATION 11/23/2017 [facility] ([place]) DATE CREATED AUTHOR AUTHOR'S ORGANIZ ATION 09/27/2020 [facility] DATE CREATED AUTHOR AUTHOR'S ORGANIZ ATION 04/28/2021 [facility] DATE CREATED AUTHOR AUTHOR'S ORGANIZ ATION 06/24/2021 [facility] DATE CREATED AUTHOR AUTHOR'S ORGANIZ ATION 11/28/2022 [facility] Reason for Visit (unrecogniz ed section and content) Reason Comments Scheduled Induction Reason Onset Date Comments Pelvic Pain 04/17/2022 Reason Comments Follow-up Pelvic pain Reason Comments Dizziness Postural dizziness w ith variable heartrates Palpitations PVC,PAC Reason Comments Consult Specialty Diagnoses / Procedures Referred By Contac t Referred To Contact Radiology Diagnoses Neutropenia, unspecified type (HCC) Lower abdominal pain Dizziness Procedures CT abdomen pelvis wo IV contrast Theresa Watson, DO [address] [place] [address] Referral ID Status Reason Start Date Expiration Date Visits Re quested Visits Authorized [id number] Closed 08/02/2022 01/29/2023 1 1 Reason Comments Neutropenia Reason Comments Establish Care Patient having many issues. Abnormal labs. Specialty Diagnoses / Procedures Referred By Contac t Referred To Contact Radiology Diagnoses Visual changes Chronic primary headache Procedures MR brain wo contrast Anabella Schmidt, DO [address] [place] [address] Referral ID Status Reason Start Date Expiration Date Visits Re quested Visits Authorized [id number] Closed 09/08/2022 03/07/2023 1 1 Reason Comments New Patient Urgency, frequency, dysuria, protein in urine. Having UTI symptoms. All dips were neg. Not emptying completely. Jumping causes leaking and sneezing. Frequently urge to make bowel movement started with Uti symptoms. Specialty Diagnoses / Procedures Referred By Contac t Referred To Contact Urogynecology Diagnoses Urge incontinence Procedures NM OFFICE/OUTPATIENT [facility] 60-74 MINUTES Adriane Alcantara, DO [address] [place] [address] Wojciech Lewis DO [address] [facility] [address] [place] [address] Referral ID Status Reason Start Date Expiration Date V isits Requested Visits Authorized [id number] Closed Specialty Services Required 09/04/2022 09/04/2023 1 1 Reason Comments Dizziness Orthostatic Hypotens ion Palpitations PVC,PAC Other 9 weeks Ordered Prescriptions (unrec ognized section and content) Scheduled Active and Recently Administ ered Medications (unrecognized section and content) Continuous Medication Order 09/15/2020 09/16/2020 09/17/2020 lactated ringers infusion (CANCELED) Intravenous, at 125 mL/hr, CONTINUOUS, Starting on Sun09/14/20 at 1245, Labor and Delivery 0451 (New Bag - Provider: Idalia Carranza, GEREMIAS)0549 (New Bag - Provider: Idalia Carranza, GEREMIAS) oxytocin (PITOCIN) 10 unit bolus from the bag 500 mL (30 Units), Intravenous, Administer over 75 Minutes, TITRATED, Starting on Sun09/15/20 at 1345, For Immediate Post Use Only. Give after delivery of placenta. Bag 1 of 2: Bolus for bag to infuse at 999 ml/hour for 15 minutes (15 units in 250cc). After initial bolus then decrease rate to 250cc/hr for 1 hour. Then discontinue., Multiphase Phase of Care 1345 (Due) oxytoxin (PITOCIN) 30 units in 500 mL infusion (CANCELED) 1 edd-units/min (1 mL/hr), Intravenous, at 1 mL/hr, CONTINUOUS, Starting on Sun09/14/20 at 2000, Begin infusion at 2 edd-unit/min (1 edd-unit per min = 1 mL per hour) while smyth bulb is in place. 0221 (New Bag - Provider: Zonia Rodriguez, GEREMIAS) oxytoxin (PITOCIN) 30 units in 500 mL infusion (CANCELED) 1-20 edd-units/min (1-20 mL/hr), Intravenous, at 1-20 mL/hr, CONTINUOUS, Starting on Sun09/15/20 at 0400, Begin infusion at 1 edd-unit/min (1 edd-unit per min = 1 mL per hour) and increase by 1 edd-unit/min after 30 minutes. Then increase by 2 edd-units/min as needed, no faster than every 30 minutes, until labor is achieved. Labor is defined as contractions every 2-3 minutes with cervical changes or Barnhart units (MVU) greater than 200 in a 10-minute window. Maximum infusion rate: 20 edd-unit/min. Contact provider if maximum rate does not achieve desired response. Provider may order alternative titration goal or other clinically appropriate goal of titration rate (s). Smaller titration increments of 1 edd-units/min, not faster than every 30 minutes, may be used when approaching therapeutic goal. 0408 (Rate/Dose Change - Provider: Idalia Carranza RN) PRN Medication Order 09/15/2020 09/16/2020 09/17/2020 acetaminophen (TYLENOL) tablet 650 mg (CANCELED) 650 mg, Oral, EVERY 4 HOURS PRN, Pain Mild (1-3), Fever, Fever >100.5 F (38 C), Starting on Sun09/14/20 at 1227, Maximum dose of acetaminophen is 4000 mg from all sources in 24 hours., Labor and Delivery 1327 (Given - Provider: Pretty Allen RN) benzocaine-menthol (DERMOPLAST) 20-0.5 % spray Topical, PRN, Pain, Starting on Sun09/15/20 at 1750, Apply to perineal area. Patient is capable and may self administer at bedside., 1435 (Given - Provider: Elaine Medina, GEREMIAS) docusate sodium (COLACE) capsule 100 mg 100 mg, Oral, 2 TIMES DAILY PRN, Constipation, Starting on Sun09/15/20 at 1750, Do not crush or break., 0140 (Given - Provider: Sabine Warren, GEREMIAS) 1007 (Given - Provider: Dorothea South RN) lactated ringers bolus (CANCELED) 1,000 mL, Intravenous, at 500 mL/hr, Administer over 2 Hours, PRN, Give prior to epidural placement. May be repeated if a second epidural/spinal procedure is performed., Starting on Sun09/14/20 at 1227, Labor and Delivery 0503 (Rate/Dose Change - Provider: Idalia Carranza, GEREMIAS) lansinoh lanolin ointment Topical, PRN, Dry Skin, nipple discomfort, Starting on Sun09/15/20 at 1750, ondansetron (ZOFRAN) injection 4 mg (CANCELED) 4 mg, Intravenous, EVERY 6 HOURS PRN, Nausea, Starting on Sun09/14/20 at 1227, Labor and Delivery 0412 (Given - Provider: Idalia Carranza, GEREMIAS) ondansetron (ZOFRAN) injection 4 mg 4 mg, Intravenous, EVERY 6 HOURS PRN, Nausea, Starting on Sun09/15/20 at 1750, oxytoxin (PITOCIN) 30 units in 500 mL infusion () 125 edd-units/min (125 mL/hr), Intravenous, at 125 mL/hr, CONTINUOUS PRN, Bleeding, Starting on Sun09/15/20 at 1323, For 4 hours, For Immediate Post Use Only. Give after delivery of placenta and initial 30 unit bolus. Bag 2 of 2: 125cc/hr (125 mu/min) for an additional infusion of 500cc (30 units)., Multiphase Phase of Care 1323 (New Bag - Provider: Pretty Allen RN) simethicone (MYLICON) chewable tablet 80 mg 80 mg, Oral, EVERY 6 HOURS PRN, Cramping, Flatulence, Starting on Sun09/15/20 at 1750, witch oni-glycerin (TUCKS) pad Topical, PRN, Hemorrhoids, For perineal pain or discomfort, Starting on Sun09/15/20 at 1750, Apply to perineal area. Patient is capable and may self administer at bedside., 1802 (Given - Provider: Elaine Medina, GEREMIAS) 1007 (Given - Provider: Dorothea South RN) No Frequency Medication Order 09/15/2020 09/16/2020 09/17/2020 benzocaine-benzethonium (DERMOPLAST) 20-0.2 % spray Starting on Anna 09/16/20 at 1433, For 1 dose, Medina, ELAINE: cabinet override 1445 (Due) Care Teams (unrecognized sec tion and content) Rehabilitation Counselor Relationship Specialty Start Date End Date Adriane Alcantara DO [address] [place] [phone] PCP - General 07/16/20 Rehabilitation Counselor Relationship Specialty Start Date End Date Adriane Alcantara DO [address] [place] [phone] PCP - General 07/16/20 Rehabilitation Counselor Relationship Specialty Start Date End Date Adriane Alcantara DO [address] [place] [phone] PCP - General 07/16/20 Rehabilitation Counselor Relationship Specialty Start Date End Date Adriane Alcantara DO [address] [place], [phone] PCP - General 07/16/20 Rehabilitation Counselor Relationship Specialty Start Date End Date Adriane Alcantara DO [address] [place], [phone] PCP - General 07/16/20 Rehabilitation Counselor Relationship Specialty Start Date End Date Adriane Alcantara DO [address] [place], [phone] PCP - General 07/16/20 Rehabilitation Counselor Relationship Specialty Start Date End Date Adri[place] [address] [address] [place] [phone] PCP - General 07/16/20 Rehabilitation Counselor Relationship Specialty Start Date End Date Adriane Alcantara DO [address] [place] [phone] PCP - General 07/16/20 Rehabilitation Counselor Relationship Specialty Start Date End Date Adriane Alcantara DO [address] [place] [place] [phone] PCP - General 07/16/20 Rehabilitation Counselor Relationship Specialty Start Date End Date Adriane Alcantara DO [address] [place] [address] PCP - General 07/16/20 Theresa Watson DO [address] [place] [address] Consulting Physician Hematology and Oncology 08/02/22 Kojo Reis MD [address] [facility] [address] [place] [address] Nephrology 08/02/22 Rehabilitation Counselor Relationship Specialty Start Date End Date Adriane Alcantara DO [address] [place] [phone] PCP - General 07/16/20 Theresa Watson DO [address] [place] [address] Consulting Physician Hematology and Oncology 08/02/22 Kojo Reis MD [address] [facility] [address] [place] [address] Nephrology 08/02/22 Rehabilitation Counselor Relationship Specialty Start Date End Date Adriane Alcantara DO [address] [place] [phone] PCP - General 07/16/20 Theresa Watson DO [address] [place] [address] Consulting Physician Hematology and Oncology 08/02/22 Kojo Reis MD [address] [facility] [address] [place] [address] Nephrology 08/02/22 Rehabilitation Counselor Relationship Specialty Start Date End Date Adriane Alcantara DO [address] [place] [phone] PCP - General 07/16/20 Theresa Watson DO [address] [place] [address] Consulting Physician Hematology and Oncology 08/02/22 Kojo Reis MD [address] [facility] [address] [place] [address] Nephrology 08/02/22 Rehabilitation Counselor Relationship Specialty Start Date End Date Adriane Alcantara DO [address] [place] [phone] PCP - General 07/16/20 Theresa Watson DO [address] [place] [address] Consulting Physician Hematology and Oncology 08/02/22 Kojo Reis MD [address] [facility] [address] [place] [address] Nephrology 08/02/22 Rehabilitation Counselor Relationship Specialty Start Date End Date Adriane Alcantara DO [address] [place] [address] PCP - General 07/16/20 Theresa Watson DO [address] [place] [address] Consulting Physician Hematology and Oncology 08/02/22 Kojo Reis MD [address] [facility] [address] [place] [address] Nephrology 08/02/22 Rehabilitation Counselor Relationship Specialty Start Date End Date Adriane Alcantara DO [address] [place] [phone] PCP - General 07/16/20 Theresa Watson DO [address] [place] [address] Consulting Physician Hematology and Oncology 08/02/22 Kojo Reis MD [address] [facility] [address] [place] [address] Nephrology 08/02/22 Rehabilitation Counselor Relationship Specialty Start Date End Date Adriane Alcantara DO [address] [place] [phone] PCP - General 07/16/20 Theresa Watson DO [address] [place] [address] Consulting Physician Hematology and Oncology 08/02/22 Kojo Reis MD [address] [facility] [address] [place] [address] Nephrology 08/02/22 Rehabilitation Counselor Relationship Specialty Start Date End Date Adriane Alcantara DO [address] [place] [phone] PCP - General 07/16/20 Theresa Watson DO [address] [place], [place] [phone] Consulting Physician Hematology and Oncology 08/02/22 Kojo Reis MD [address] [address] Nephrology 08/02/22 Rehabilitation Counselor Relationship Specialty Start Date End Date AlcantaraAdriane [address] [place] [phone] PCP - General 07/16/20 Theresa Watson DO [address] [place] [address] Consulting Physician Hematology and Oncology 08/02/22 Kojo Reis MD [address] [address] Nephrology 08/02/22 FOR RECORDS PERTAINING TO PATIENTS WHO ARE OR HAVE BEEN ENROLLED IN A CHEMICAL DEPENDENCY/SUBSTANCEABUSE PROGRAM, SOME INFORMATION MAY BE OMITTED. This clinical summary was aggregated from multiple sources. Caution should be exercised in using it in the provision of clinical care. This summary normalizes information from multiple sources, and as a consequence, information in this document may materially change the coding, format and clinical context of patient data. In addition, data may be omitted in some cases. CLINICAL DECISIONS SHOULD BE BASED ON THE PRIMARY CLINICAL RECORDS. [facility] [email or web address] [facility]. provides no warranty or guarantee of the accuracy or completeness of information in this document.
[2023-02-14 10:54] LABS: ALB/GLOB Ratio 1.1 RATIO (0.9-2.4); AST(SGOT) 11 U/L (15-37); Alanine Aminotransfer ALT/SGPT 16 U/L (13-56); Albumin, Serum 3.7 g/dL (3.2-5.0); Alkaline Phosphatase 52 U/L (45-117); Anion Gap 6 (5-15); BUN 9 mg/dL (7-18); BUN/Creat Ratio 13.5 RATIO (10-20); Calcium,Total 8.7 mg/dL (8.5-10.1); Chloride 106 mmol/L (98-107); Creatinine, Serum 0.67 mg/dL (0.55-1.02); EST Glomerular Filtration Rate 112 mL/min (>60); Est Glom Filt Rate - Afr Amer 135 mL/min (>60); Free T3 2.3 pg/mL (2.18-3.98); Globulin 3.4 g/dL (2.2-4.2); Glucose 76 mg/dL (74-106); Potassium 3.9 mmol/L (3.5-5.1); Protein, Total 7.1 g/dL (6.4-8.2); Sodium Level 136 mmol/L (136-145); T4 Free Direct 1.06 ng/dL (0.76-1.46); Thyroid Stim Hormone (TSH) 0.58 uIU/mL (0.358-3.74)
[2023-02-14 12:13] LABS: Protein, Urine (Random) < 6.0 mg/dL (<11.9)
[2023-02-14 13:01] LABS: HIV - WCH Non-Reactive (Nonreactive); Hepatitis B Surface Antigen Non-Reactive (Nonreactive); Hepatitis C Antibody Non-Reactive (Nonreactive); Rubella IgG Reactive (Nonreactive); Syphilis Antibodies Non-reactive
[2023-02-16 22:10] LABS: Chlamydia By Nucleic Acid AMP Negative (Negative); Gonococcus By Nucleic Acid AMP Negative (Negative)
== END | disposition home or self-care (01) ==
PROVIDERS: PCP Family Medicine; Referring Provider Registered Nurse; Visit Provider Registered Nurse
DX: O12.10 Gestational proteinuria, unspecified trimester (principal); Z3A.00 Weeks of gestation of pregnancy not specified
CPT/HCPCS: 36415; 80053; 82570; 84156; 84439; 84443; 84481; 85025; 86703; 86762; 86780; 86803; 86850; 86900; 86901; 87086; 87088; 87340; 87491; 87591

== ENCOUNTER → 2023-05-09 | Outpatient (CLI) | payer OTHER, SELFPAY ==
[2023-05-09 11:34] LABS: Hematocrit 37.1 % (37-47); Hemoglobin 12.5 g/dL (12.0-15.0); Mean Corp Hgb Conc 33.7 g/dL (32-36); Mean Corpuscular Hgb 29.6 pg (27.0-32.0); Mean Corpuscular Volume 87.9 fL (81-99); Mean Platelet Vol. 10.3 fl (6.2-12.0); Platelet Count 154 K/mm3 (150-450); RBC Distribution Width SD 44.1 fl (35.1-43.9); Red Blood Count 4.22 M/mm3 (4.2-5.4); White Blood Count 8.2 K/mm3 (4.4-11.0)
[2023-05-09 11:58] LABS: AST(SGOT) 14 U/L (15-37); Alanine Aminotransfer ALT/SGPT 17 U/L (13-56); Albumin, Serum 3.1 g/dL (3.2-5.0); Alkaline Phosphatase 38 U/L (45-117); Anion Gap 5 (5-15); BUN 14 mg/dL (7-18); Calcium,Total 8.3 mg/dL (8.5-10.1); Chloride 107 mmol/L (98-107); Creatinine, Serum 0.56 mg/dL (0.55-1.02); EST Glomerular Filtration Rate 137 mL/min (>60); Est Glom Filt Rate - Afr Amer 166 mL/min (>60); Globulin 3.2 g/dL (2.2-4.2); Glucose 85 mg/dL (74-106); Potassium 3.7 mmol/L (3.5-5.1); Protein, Total 6.3 g/dL (6.4-8.2); Sodium Level 136 mmol/L (136-145); Thyroid Stim Hormone (TSH) 0.73 uIU/mL (0.358-3.74)
[2023-05-09 13:58] LABS: Protein, Urine (Random) 12.5 mg/dL (<11.9); Protein:Creat Ratio 110 mg/g CRE (0-200)
== END | disposition home or self-care (01) ==
PROVIDERS: PCP Family Medicine; Referring Provider Obstetrics & Gynecology; Visit Provider Obstetrics & Gynecology
DX: O99.280 Endocrine, nutritional and metabolic diseases complicating pregnancy, unspecified trimester (principal); Z87.448 Personal history of other diseases of urinary system; E03.9 Hypothyroidism, unspecified; O99.891 Other specified diseases and conditions complicating pregnancy; R00.2 Palpitations; Z3A.00 Weeks of gestation of pregnancy not specified
CPT/HCPCS: 36415; 80053; 82570; 84156; 84443; 85027

== ENCOUNTER → 2023-06-25 | Outpatient (CLI) | payer OTHER, SELFPAY ==
[2023-06-25 13:10] LABS: Absolute Lymphocyte Count 1.25 X10^3/uL (0.83-4.51); Absolute Neutrophil Count 6.3 X10^3/uL (2.0-7.7); Basophil# 0.04 X10^3/uL; Basophil% 0.5 % (0-1); Eosinophil# 0.03 X10^3/uL; Eosinophils% 0.4 % (0-5); Hematocrit 37.7 % (37-47); Hemoglobin 12.2 g/dL (12.0-15.0); Lymphocyte # 1.25 X10^3/ul (0.83-4.51); Lymphocyte % 15.5 % (19-41); Mean Corp Hgb Conc 32.4 g/dL (32-36); Mean Corpuscular Hgb 29.3 pg (27.0-32.0); Mean Corpuscular Volume 90.4 fL (81-99); Mean Platelet Vol. 10.5 fl (6.2-12.0); Monocyte# 0.37 X10^3/uL; Monocyte% 4.6 % (0-10); NRBC Flagged by Analyzer 0 % (0-5); Neutrophil % 77.9 % (47-70); Platelet Count 170 K/mm3 (150-450); RBC Distribution Width CV 13.1 % (11.6-14.6); RBC Distribution Width SD 43.1 fl (35.1-43.9); Red Blood Count 4.17 M/mm3 (4.2-5.4); White Blood Count 8.1 K/mm3 (4.4-11.0)
[2023-06-25 14:12] LABS: Protein, Urine (Random) < 6.0 mg/dL (<11.9)
[2023-06-25 14:22] LABS: Glucose Challenge Gest 1H 50g 81 mg/dL (70-140)
[2023-06-25 14:57] LABS: HIV - WCH Non-Reactive (Nonreactive); Syphilis Antibodies Non-reactive
== END | disposition home or self-care (01) ==
LOC: LAB 12:24
PROVIDERS: Obstetrics & Gynecology; PCP Family Medicine; Referring Provider Obstetrics & Gynecology; Visit Provider Obstetrics & Gynecology
DX: O12.10 Gestational proteinuria, unspecified trimester (principal); Z3A.00 Weeks of gestation of pregnancy not specified
CPT/HCPCS: 36415; 82570; 82950; 84156; 85025; 86703; 86780

== ENCOUNTER → 2023-07-25 | Outpatient (CLI) | payer OTHER, SELFPAY | END | disposition home or self-care (01) | PROVIDERS: PCP Family Medicine; Referring Provider Internal Medicine Cardiovascular Disease; Visit Provider Internal Medicine Cardiovascular Disease | DX: R00.2 Palpitations (principal) | CPT/HCPCS: 93225; 93226 ==

== ENCOUNTER → 2023-08-14 | Outpatient (CLI) | payer OTHER, SELFPAY ==
--- NOTE | 2023-08-14 14:04 | ECHOD_ITS ---
Reason For Study: Plaps Procedure This was a 2D Doppler, Color Flow transthoracic echocardiogram. Exam performed in department. Left Ventricle Normal LV size. Left ventricular systolic function is normal. The left ventricular ejection fraction is 65 %. Stage 1 diastolic dysfunction. No regional wall motion abnormalities noted. Right Ventricle Normal RV size. Normal systolic function. Atria Normal left atrium. Normal right atrium. Mitral Valve Normal mitral valve. Tricuspid Valve Normal tricuspid valve. Mild (1+) tricuspid valve insufficiency. Aortic Valve Normal aortic valve. Trisinus/trileaflet aortic valve. Pulmonic Valve Normal pulmonic valve. Great Vessels Normal aortic root. The pulmonary artery is normal size. Normal inferior vena cava. Pericardium/Pleural No pericardial effusion. MMode/2D Measurements & Calculations LVIDd: 4.4 cm IVSd: 0.98 cm Ao root diam: 2.9 cm LVIDs: 3.0 cm LVPWd: 0.91 cm RVDd: 3.8 cm FS: 32.2 % LAV(MOD-bp): 57.0 ml LVAd ap4: 32.0 cm2 LVAd ap2: 33.6 cm2 LAV(MOD-bp) Indexed: 28.3 ml/m2 LVLd ap4: 8.9 cm LVLd ap2: 9.7 cm LAV(MOD-sp2): 39.4 ml EDV(MOD-sp4): 92.0 ml EDV(MOD-sp2): 98.9 ml LAV(MOD-sp4): 62.8 ml EDV(sp4-el): 97.4 ml EDV(sp2-el): 98.8 ml LVAs ap4: 17.2 cm2 LVAs ap2: 17.4 cm2 LVLs ap4: 7.5 cm LVLs ap2: 8.4 cm ESV(MOD-sp4): 32.9 ml ESV(MOD-sp2): 31.1 ml ESV(sp4-el): 33.7 ml ESV(sp2-el): 30.7 ml EF(MOD-sp4): 64.2 % EF(MOD-sp2): 68.5 % EF(sp4-el): 65.4 % SV(MOD-sp4): 59.0 ml SV(MOD-sp2): 67.7 ml SV(sp4-el): 63.7 ml LA dimension(2D): 3.3 cm LA A4 area: 20.4 cm2 RA A4 area: 19.1 cm2 TAPSE: 2.0 cm Time Measurements MV dec time: 0.12 sec Doppler Measurements & Calculations MV E max tdedy: 71.2 cm/sec Lat Peak E' Teddy: 16.5 cm/sec Med Peak E' Teddy: 9.1 cm/sec MV A max teddy: 71.6 cm/sec E/E' lat: 4.3 E/E' med: 7.8 MV E/A: 0.99 MV dec slope: 617.4 cm/sec2 Ao V2 max: 141.2 cm/sec LV V1 max: 109.9 cm/sec Ao max P.0 mmHg LV V1 max P.8 mmHg Ao V2 mean: 91.5 cm/sec LV V1 mean P.8 mmHg Ao mean P.8 mmHg LV V1 mean: 77.2 cm/sec Ao V2 VTI: 24.8 cm LV V1 VTI: 20.7 cm AV (velocity ratio): 0.83 PA V2 max: 93.3 cm/sec TR max teddy: 211.3 cm/sec TR max P.9 mmHg ECHO/Echo Complete Interpretation Summary Normal LV size. Left ventricular systolic function is normal. The left ventricular ejection fraction is 65 %. Stage 1 diastolic dysfunction. Structurally normal valves. Ordering Physician: Jaycob Silva Referring Physician: Zachariah Rome Performed By: Asya Greer RDCS
== END | disposition home or self-care (01) ==
LOC: CVS 13:57
PROVIDERS: PCP Family Medicine; Referring Provider Internal Medicine Cardiovascular Disease; Visit Provider Internal Medicine Cardiovascular Disease
DX: R00.2 Palpitations (principal)
CPT/HCPCS: 93306

== ENCOUNTER → 2023-08-23 | Outpatient (CLI) | payer OTHER, SELFPAY ==
--- NOTE | 2023-08-23 12:38 | US_ITS ---
STUDY: SECOND AND THIRD TRIMESTER OBSTETRICAL ULTRASOUND - LIMITED REASON FOR EXAM: Female, 27 years old size greater than dates LMP: PRIOR ULTRASOUND: 02/14/2023 TECHNIQUE: Transabdominal TECHNICAL QUALITY: Adequate. FINDINGS: There is a single intrauterine fetus. The fetus is in a cephalic presentation. There is demonstrated cardiac activity with a heart rate of 140 bpm. There is a normal amniotic fluid volume. The largest amniotic fluid pocket measures 6.8 cm. The amniotic fluid index (AMADOR) is 16.7 cm. The placenta is posterior in location and is not low lying. There are Grade 1 placental changes. The cervix measures cm in length. BIOMETRY: BPD: 9.1 cm: 36 weeks, 6 days HC: 32.5 cm: 36 weeks, 6 days AC: 32.1 cm: 36 weeks, 0 days FL: 7.0 cm: 35 weeks, 6 days Age by LMP: weeks, days. SAHRA by LMP: . age by prior US: 35 weeks, 6 days. SAHRA by prior US: 09/21/2023. age by current US: 36 weeks, 3 days. SAHRA by current US: 09/17/2023. Estimated weight: 2890 grams, +/- 433 grams, 62 percentile. Gender: US/OB Limited With Biometrics IMPRESSION: Living intrauterine of 36 weeks 3 days as described above. Electronically Signed: Emile Diaz MD at 14:34 EDT ,
== END | disposition home or self-care (01) ==
LOC: US 12:37
PROVIDERS: PCP Family Medicine; Referring Provider Advanced Practice Midwife; Visit Provider Advanced Practice Midwife
DX: O26.849 Uterine size-date discrepancy, unspecified trimester (principal); Z3A.00 Weeks of gestation of pregnancy not specified
CPT/HCPCS: 76816

== ENCOUNTER 2023-09-26 03:31 | Inpatient (IN) | payer OTHER, SELFPAY ==
[2023-09-26] VITALS (19 sets, daily range): BP systolic 106–137; BP diastolic 55–78; PULSE 77–98; RESP 14–18; TEMP 36.1–37.1; O2SAT 97–99; BMI 35.9
[2023-09-26 03:27] LABS: ROM Internal Control Test YES-OK TO RESULT pt. (Internal QC)
[2023-09-26 03:28] LABS: ROM Patient Test POSITIVE (Negative); Record Kit Lot#, ROM+ K1866
--- NOTE | 2023-09-26 03:41 | HP.PCM.OB_ITS ---
HPI - General General Date of Admission: 09/26/23 Date of Service: 09/26/23 HPI Narrative NIKUNJ KWAN, is a 27 F 40.5 weeks who presents to unit for clear vaginal discharge that started around midnight. Rom + positive. Maternal Data Information SAHRA Calculator Estimated Delivery Date Method Current WG Current Estimate 09/21/23 LMP (Certain) 40w 5d Final SAHRA: 09/21/23 Final SAHRA Source: US >20 weeks Gestational age: 40.5 weeks PFSH PFS Medical History Vasovagal near syncope IBS (irritable bowel syndrome) GERD (gastroesophageal reflux disease) Diseases of the circulatory system complicating , unspecified trimester Supraventricular tachycardia, unspecified Supervision of high-risk Hypothyroidism affecting History of kidney disease Heart palpitations Supraventricular tachycardia during Normal endoscopic ultrasound of upper gastrointestinal tract Seasonal allergies Infertility associated with anovulation Home Medications ?Medication ?Instructions ?Recorded ?Last Taken ?Type L. crispatus, gasseri, jensenii, 2 tab PO DAILY 02/09/23 09/25/23 08:00 History rhamnosus 12 billion cell chew tablet (Culturelle Probiotic) vitamins no.163-iron tab PO 02/09/23 09/25/23 08:00 History bis-gly 20 mg-folate no.10 1 mg tablet (PNV Tabs 20-1) docosahexaenoic acid 200 mg 200 mg PO DAILY 06/26/23 09/25/23 08:00 History capsule ( DHA) Allergy/AdvReac Type Severity Reaction Status Date / Time nitrofurantoin Allergy Severe difficulty Verified 09/26/23 02:43 breathing alprazolam AdvReac Intermediate PT UNSURE Verified 09/26/23 02:43 OF REACTION quetiapine AdvReac Intermediate PT UNSURE Verified 09/26/23 02:43 OF REACTION Family History Grandmother Colon cancer Diabetes Mother Diabetes Pancreatic cancer Surgical History [place] teeth extracted History of tonsillectomy Social History adopted: No household members: spouse and children number of children: 1 current occupational status: unemployed current occupation: [employer] current occupational exposures/hazards: No pets and animals: Yes (NOT MANAGING LITTERBOX) pets and animals: cat(s), dog(s), horse(s) and farm animals history of recent travel: No sexually active: Yes Smoking Status: Never smoker alcohol intake: never substance use type: does not use diet: other well-balanced diet: daily or most days caffeine: No eating out: 1-3 times/week during the past year weight has: remained stable what type of physical activity do you participate in: weight training frequency: 5-6 times per week duration: 15-30 minutes/day gale/denominational: Mosque seatbelt use: always do you feel safe at home: Yes additional social history: - LUKE History 2 Elective abortions Hx Para 1 Spontaneous abortions Hx # Term Pregnancies Ectopic pregnancies Hx # Pregnancies Multiple births # of living children 1 Past Pregnancies Del. Date Name GA/Weeks Outcome Route Bth Weight Infant Gen Labor Lgth Anesthesia [facility] Provider FOB 09/15/20 Leandro 41 live - full term 8#2oz Male epidural [facility] Dr. Valeria Jones Visit Details Expected Delivery Route/Plan Labor Preferences- CB/BF classes: no labor support person: Robert labor intervention preferences: [] pain management options preferred: epidural if requested. Will have cardiovascular or nurse/Ashley with her cut cord/dad catch: no : yes PP control planned: discussed discussed possible routes of delivery and associated risks: [] special requests: [] Plans Covid status: [] Flu vaccine: [] Tdap vaccine: declines Rhogam: NA LARC form signed: yes movement and labor precautions reviewed. Problem list reviewed and updated with the most current plan of care details and appropriate orders placed. Relevant counseling for the gestational age provided. Continue routine care and follow up unless otherwise noted in visit notes/problem list details OB Flowsheet Initial Weight: Not Recorded Date -?-?-?-?-?-?-?-?-?-?-?-?- EGA Weight BP Urine Prot -?-?-?-?-?-?-?-?-?-?-?-?- Glucose FHR FuHt Pres Dilation -?-?-?-?-?-?-?-?-?-?-?-?- Effaced St Visit Note 02/14/23 -?-?-?-?-?-?-?-?-?-?-?-?- 8w 5d 166 lb 2 oz 108/73 -?-?-?-?-?-?-?-?-?-?-?-?- 180 -?-?-?-?-?-?-?-?-?-?-?-?- LC- CRL 21mm. LC- CRL 21mm con with LMP. n ipt declined. 03/16/23 -?-?-?-?-?-?-?-?-?-?-?-?- 13w 0d 167 lb 6 oz 108/71 Nega tive -?-?-?-?-?-?-?-?-?-?-?-?- Negative 155 -?-?-?-?-?-?-?-?-?-?-?-?- JV- no cramping or spotting. whole family vomiting this week but not better. still a little nauseated. IM phenergan and po zofran helped. 04/09/23 -?-?-?-?-?-?-?-?-?-?-?-?- 16w 3d 173 lb 110/64 Negative -?-?-?-?-?-?-?-?-?-?-?-?- Negative 158 -?-?-?-?-?-?-?-?-?-?-?-?- MH-No VB. Noting more palpitations, had w last . Will contact her personnel arbitrator. Some headaches, enc try tylenol. Call if worsens. Checks BP at home. 05/09/23 -?-?-?-?-?-?-?-?-?-?-?-?- 20w 5d 184 lb 104/67 -?-?-?-?-?-?-?-?-?-?-?-?- 144 -?-?-?-?-?-?-?-?-?-?-?-?- JV- pt is having more and more heart palpitations. recommending echo, ekg, possible holter monitor. She has a personnel arbitrator and will ask them. anatomy scan was done with mfm, results not yet in our EMR. 06/08/23 -?-?-?-?-?-?-?-?-?-?-?-?- 25w 0d 192 lb 103/62 Negative -?-?-?-?-?-?-?-?-?-?-?-?- Negative 154 -?-?-?-?-?-?-?-?-?-?-?-?- JV- no lof, vagi nal bleeding, or cramping. 06/25/23 -?-?-?-?-?-?-?-?-?-?-?-?- 27w 3d 199 lb 102/67 -?-?-?-?-?-?-?-?-?-?-?-?- 150 27 -?-?-?-?-?-?-?-?-?-?-?-?- Sm- no vb lof go od fm no regular ctx 07/09/23 -?-?-?-?-?-?-?-?-?-?-?-?- 29w 3d 199 lb 12.8 oz 199 lb 8 oz 103/62 110/72 Negative -?-?-?-?-?-?-?-?-?-?-?-?- Negative 147 29 -?-?-?-?-?-?-?-?-?-?-?-?- -No VB, LOF. G ood FM. -No VB, LOF. Good FM. Nl 2 8 wk labs. Declines tdap. Larc done 07/25/23 -?-?-?-?-?-?-?-?-?-?-?-?- 31w 5d 205 lb 115/69 Negative -?-?-?-?-?-?-?-?-?-?-?-?- Negative 120 33 -?-?-?-?-?-?-?-?-?-?-?-?- KW- no vb/lof/ct x. good fm. received heart monitor today 08/08/23 -?-?-?-?-?-?-?-?-?-?-?-?- 33w 5d -?-?-?-?-?-?-?-?-?-?-?-?- 158 35 -?-?-?-?-?-?-?-?-?-?-?-?- KW- no vb/lof/ct x. good fm. normal readings with monitor. echo next week. growth US ordered 08/23/23 -?-?-?-?-?-?-?-?-?-?-?-?- 35w 6d 212 lb 4 oz 111/75 Nega tive -?-?-?-?-?-?-?-?-?-?-?-?- Negative 135 36 Cephalic -?-?-?-?-?-?-?-?-?-?-?-?- JV- has growth s can today. no complaints. 08/30/23 -?-?-?-?-?-?-?-?-?-?-?-?- 36w 6d 215 lb 124/76 Negative -?-?-?-?-?-?-?-?-?-?-?-?- Negative 136 37 Cephalic -?-?-?-?-?-?-?-?-?-?-?-?- MH-No VB, LOF. G ood FM. Declines internal. GBS done 09/07/23 -?-?-?-?-?-?-?-?-?-?-?-?- 38w 0d 216 lb 104/70 Negative -?-?-?-?-?-?-?-?-?-?-?-?- Negative 130 39 Cephalic -?-?-?-?-?-?-?-?-?-?-?-?- KW- no vb/lof/re g ctx. good fm. GBS neg. declines exam today 09/12/23 -?-?-?-?-?-?-?-?-?-?-?-?- 38w 5d 218 lb 103/70 Negative -?-?-?-?-?-?-?-?-?-?-?-?- Negative 125 39 Cephalic -?-?-?-?-?-?-?-?-?-?-?-?- SM- no vb lof go od fm no regular ctx 09/21/23 -?-?-?-?-?-?-?-?-?-?-?-?- 40w 0d 219 lb 97/69 Negative -?-?-?-?-?-?-?-?-?-?-?-?- Negative 125 40 Cephalic -?-?-?-?-?-?-?-?-?-?-?-?- JV- patient decl bar pelvic exam and declines IOL. set up for membrane sweep early next week and growth/bpp on 42 weeks. 09/25/23 -?-?-?-?-?-?-?-?-?-?-?-?- 40w 4d 221 lb 112/79 Negative -?-?-?-?-?-?-?-?-?-?-?-?- Negative 135 40 Cephalic 2 .5 -?-?-?-?-?-?-?-?-?-?-?-?- 70 -2 KW- no vb/ lof/ some regular contractions. requesting nst today. membrane sweep. US scheduled for sunday NST FHR Rate Baby A Baseline: 135 Variability:: Moderate Accelerations:: 15 x 15 Decelerations:: None NST Reactive:: Yes FHR Category:: Category I Uterine Activity:: rare ROS Constitutional Constitutional: Denies change in weight, fatigue, fever(s), headache(s), poor appetite or weakness Eyes Eyes: Denies blurry vision, change in vision, floaters, seeing flashes or spots in vision ENT HEENT: Denies dizziness, headache(s), loss taste/smell or sore throat Cardiovascular Cardiovascular: Denies chest pain, dizziness, dyspnea, irregular heart rhythm, lightheadedness, palpitations or rapid heart rate Respiratory/Chest Respiratory/Chest: Denies change in mental status, chest tightness, cough, dyspnea or breast pain Gastrointestinal Gastrointestinal: Denies anorexia, chewing difficulty, constipation, diarrhea or weight changes Genitourinary Genitourinary: Denies difficulty urinating, dysuria, flank pain, genital pain, urinary frequency or urinary urgency Musculoskeletal Musculoskeletal: Denies back pain, difficulty walking, extremity pain, joint pain, muscle cramps or muscle weakness Integumentary Integumentary: Denies lesions or unusual bruising Neurologic Neurologic: Denies abnormal movements, abnormal speech, dizziness, numbness, s eizure-like activity, syncope or weakness Psychiatric Psychiatric: Denies behavioral changes, change in appetite, confusion, depression, homicidal ideation, suicidal ideation or suicidal thoughts Endocrine Endocrinology: Denies excessive sweating, polydipsia or polyuria Hematologic/Lymphatic Hematologic/Lymphatic: Denies anemia Allergic/Immunologic Allergic/Immunologic: Denies itchy eyes, lip swelling, throat swelling, tongue swelling or wheezing Physical Exam Const alert, oriented x3 and no apparent distress General Appearance: cooperative Orientation / Consciousness: awake HEENT normocephalic Neck full ROM Lymph Lymphatic: no lymphadenopathy noted Chest inspection of chest normal Resp normal respiratory effort and normal air movement Effort and Inspection: able to speak in complete sentences and symmetric chest movement GI soft to palpation and non-tender Inspection: gravid Palpation: soft; Negative for tender external exam normal Back/Spine normal to inspection Extremity normal to inspection and full ROM Skin no rashes or lesions noted Psych mental status grossly normal Appearance: grossly normal Speech: normal speech Labs Labs Labs: Blood Type O POSITIVE Antibody Screen NEGATIVE Hct 37.7 % (37-47) Hgb 12.2 g/dL (12.0-15.0) Obstetrics Ultrasound Syphilis Total Ab Non-reactive Rubella IgG Antibody Reactive (Nonreactive) Hep Bs Antigen Non-Reactive (Nonreactive) Hepatitis C Antibody Non-Reactive (Nonreactive) Chlamydia DNA ([place]) Negative (Negative) N.gonorrhoeae DNA ([place]) Negative (Negative) HIV 1&2 Antibody Non-Reactive (Nonreactive) Glucose 1 Hr 50 gm 81 mg/dL (70-140) Assessment & Plan (1) Uterine size date discrepancy : COMMENT: 36 wk growth EFW 62%; AC 64% (2) Vasovagal near syncope: (3) IBS (irritable bowel syndrome): (4) GERD (gastroesophageal reflux disease): (5) Diseases of the circulatory system complicating , unspecified trimester: (6) Supraventricular tachycardia, unspecified: (7) Supraventricular tachycardia during : (8) Heart palpitations: COMMENT: had w/last . Sees Dr Love/Tony. Becoming more noticeable and will see cardio (9) History of kidney disease: COMMENT: this was diagnosed based on proteinuria september 2021- last check at nob visit protein was negative. nl labs rpt q trimester or sooner as needed. (10) Hypothyroidism affecting : QUALIFIERS: Trimester: third trimester Qualified Code(s): O99.283 - Endocrine, nutritional and metabolic diseases complicating , third trimester; E03.9 - Hypothyroidism, unspecified COMMENT: tsh/free t4 with nob has been off levothyroxine for years. obtaining records for antibody studies (11) Supervision of high-risk : QUALIFIERS: Trimester: third trimester Qualified Code(s): O09.93 - Supervision of high risk , unspecified, third trimester COMMENT: [id number], SAHRA 09/21/23,boy PC Leandro, Robert (12) : QUALIFIERS: Weeks of gestation: 40 weeks Qualified Code(s): Z3A.40 - 40 weeks gestation of COMMENT: Neg GBS. discussed genetic & carrier testing-declines, nl anatomy (13) Infertility associated with anovulation: COMMENT: Good egg supply and quality (14) Protein in urine: QUALIFIERS: Proteinuria type: other Qualified Code(s): R80.8 - Other proteinuria COMMENT: Has seen 2 nephrologists , potentially stage 2 kidney disease. no longer having proteinuria for months. 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 Pain management: plans epidural. GBS negative. Management of any complications: none I have reviewed the [facility] and made any clinically relevant updates. Charges/Coding Multi Select Codes Urinary/Genital Urinary/Genital CPT Codes: No Charge
[2023-09-26 04:26] LABS: Absolute Lymphocyte Count 1.26 X10^3/uL (0.83-4.51); Basophil# 0.05 X10^3/uL; Basophil% 0.4 % (0-1); Eosinophil# 0.03 X10^3/uL; Eosinophils% 0.2 % (0-5); Hematocrit 41.8 % (37-47); Hemoglobin 13.8 g/dL (12.0-15.0); Lymphocyte # 1.26 X10^3/ul (0.83-4.51); Lymphocyte % 9.6 % (19-41); Mean Corpuscular Hgb 29.2 pg (27.0-32.0); Mean Corpuscular Volume 88.4 fL (81-99); Mean Platelet Vol. 11.6 fl (6.2-12.0); Monocyte# 0.66 X10^3/uL; NRBC Flagged by Analyzer 0 % (0-5); Neutrophil % 83.7 % (47-70); Platelet Count 132 K/mm3 (150-450); RBC Distribution Width CV 12.9 % (11.6-14.6); RBC Distribution Width SD 41.4 fl (35.1-43.9); Red Blood Count 4.73 M/mm3 (4.2-5.4); White Blood Count 13.2 K/mm3 (4.4-11.0)
[2023-09-26 05:00] LABS: Syphilis Antibodies Non-reactive
--- NOTE | 2023-09-26 12:09 | OP.PCM_ITS ---
Assessment & Plan (1) SROM (spontaneous rupture of membranes): (2) Uterine size date discrepancy : COMMENT: 36 wk growth EFW 62%; AC 64% (3) : QUALIFIERS: Weeks of gestation: 40 weeks Qualified Code(s): Z3A.40 - 40 weeks gestation of COMMENT: Neg GBS. discussed genetic & carrier testing-declines, nl anatomy (4) Protein in urine: QUALIFIERS: Proteinuria type: other Qualified Code(s): R80.8 - Other proteinuria COMMENT: Has seen 2 nephrologists , potentially stage 2 kidney disease. no longer having proteinuria for months. 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 Sees Dr Love/Tony. Becoming more noticeable and will see cardio (13) History of kidney disease: COMMENT: this was diagnosed based on proteinuria september 2021- last check at nob visit protein was negative. nl labs rpt q trimester or sooner as needed. (14) Hypothyroidism affecting : QUALIFIERS: Trimester: third trimester Qualified Code(s): O99.283 - Endocrine, nutritional and metabolic diseases complicating , third trimester; E03.9 - Hypothyroidism, unspecified COMMENT: tsh/free t4 with nob has been off levothyroxine for years. obtaining records for antibody studies (15) Supervision of high-risk : QUALIFIERS: Trimester: third trimester Qualified Code(s): O09.93 - Supervision of high risk , unspecified, third trimester COMMENT: [id number], SAHRA 09/21/23,boy PC Leandro, Robert (16) Infertility associated with anovulation: COMMENT: Good egg supply and quality Maternal Data Information SAHRA Calculator Estimated Delivery Date Method Current WG Current Estimate 09/21/23 LMP (Certain) 40w 5d Final SAHRA: 09/21/23 Gestational age: 40 weeks 5 days Vaginal Delivery Maternal Presentation Maternal Presentation: Active Labor and Spontaneous Rupture of Membranes Operative Information Date of Procedure: 09/26/23 Pre-Operative Diagnosis: @ 40 weeks 5 days, spontaneous rupture of membranes, spontaneous labor Post-Operative Diagnosis: @ 40 weeks 5 days, spontaneous rupture of membranes, spontaneous labor Surgery / Procedure Performed: Spontaneous Vaginal Delivery Type of Anesthesia: None Estimated Blood Loss: 100cc Time of Delivery: 11:53 Findings Description of Procedure: Patient began pushing and delivered the head in the ROBBI presentation. The head was delivered atraumatically. The anterior and posterior shoulders delivered without complication followed by the rest of the infant and the infant was placed on the maternal abdomen. Delayed cord clamping was employed for approximately 60 seconds. Cord was clamped and cut and gentle traction was applied to the cord and the placenta delivered spontaneously immediately following it was noted to be intact with three-vessel cord. The perineum and vagina were inspected and noted to be intact. EBL was 100 cc. Patient and infant tolerated delivery well. baby boy walker Presentation: Vertex Amniotic Membrane Rupture Type: Spontaneous Amniotic Fluid Description: Clear Placental Delivery Description: Spontaneous Placenta Disposition: [facility] Cord Vessel Description: 3 Vessels Cord Entanglement: None Infant A Gender: Male (1 minute): 8 (5 minute): 9 Delayed Cord Clamping: Yes Post Vaginal Delivery Medications Given After Delivery: IV Pitocin Episiotomy Description: None Laceration: None Complication Complications: None Multi Select Codes Urinary/Genital Urinary/Genital CPT Codes: 03589 Vaginal Delivery [facility]
--- NOTE | 2023-09-26 12:11 | DCINST_ITS ---
Discharge Instructions Diet Discharge Diet: No restrictions Activity Discharge Activity: Return to Normal Activity, May Not Drive (while taking narcotic pain medications.) and May Shower May resume sexual activity in: 4-6 weeks Dressing / Incision Call your doctor if your incision/area has: Continuous Slow Oozing, Sudden Increased Bleeding, Increased Pain/ Swelling, Increased Redness and Foul Smelling Discharge Follow Up Care Please Follow Up With: Pretty Matos DO When: Call [phone] to make an appointment with your doctor in 6 weeks. If you had elevated blood pressure or 4th degree laceration, you will need to be seen in 2 weeks. Test Results: Test results from this visit will be discussed in further detail at your follow- up appointment, if applicable. Discharge Plan Admission Admit Date/Time: 09/26/23 03:31 Attending Provider: Pretty Matos Primary Care Provider: Zachariah Rome Discharge Orders/Prescriptions Prescriptions: No Action DHA 200 mg capsule 200 mg PO DAILY PNV Tabs 20-1 20 mg iron- 1 mg tablet PO Culturelle Probiotic 12 billion cell tablet,chewable 2 tab PO DAILY Referrals / Follow Up: Zachariah Rome DO [Primary Care Provider] -
[2023-09-26] MEDS: Oxytocin 15 Units/NS 250ml 15 UNITS/250 ML IV.SOLN 334 UNITS IV (12:59)
[2023-09-26] MEDS: 0.9% Saline Lock 10 ML Syringe IV (13:46)
[2023-09-26] MEDS: Benzocaine/Lanolin/Aloe Vera 1 SPRAY EACH TOPICAL (14:35)
[2023-09-27 03:35] VITALS: BP 126/67; PULSE 67; RESP 14; TEMP 36.6
--- NOTE | 2023-09-27 07:26 | PCM.PN.OB ---
Subjective Subjective Patient doing well without complaints. Tolerating PO. Ambulating and voiding without difficulty. feeding well. Denies chest pain, shortness of breath, calf pain/swelling, fevers, chills, lightheadedness. Objective Data Objective Data Vital Signs: Vital Signs Temp Pulse Resp BP Pulse Ox O2 Del Method 98 F 67 14 126/67 H 98 Room Air 09/27/23 03:35 09/27/23 03:35 09/27/23 03:35 09/27/23 03:35 09/26/23 23:25 09/27/23 03:35 Oxygen Delivery Method Room Air Weight: 222 lb 3.615 oz Body Mass Index (BMI) 35.9 Intake & Output: Intake and Output for Last 24 Hours 09/25/23 09/26/23 09/27/23 23:59 23:59 23:59 Intake Total 250 / 250 Output Total 400 / 400 Balance -150 / -150 Lab / Micro Data 09/26/23 04:00 ROS Constitutional Constitutional: Reports systems reviewed and no addt'l complaints, except as documented Cardiovascular Cardiovascular: Reports systems reviewed and no addt'l complaints, except as documented Respiratory/Chest Respiratory/Chest: Reports systems reviewed and no addt'l complaints, except as documented Gastrointestinal Gastrointestinal: Reports systems reviewed and no addt'l complaints, except as documented Physical Exam Const alert, oriented x3 and no apparent distress HEENT Head and Scalp: atraumatic Resp normal respiratory effort GI soft to palpation and non-tender Bimanual Exam - Vag & Uterus: uterus non-tender Uterus Palpation: uterus fundus firm (below Umbilicus) Assessment & Plan (1) Vaginal delivery: PLAN: Plan s/p PPD # 1 1. routine post delivery care 2. breast feeding- support given 3. rh positive 4. rubella immune
[2023-09-27 08:09] VITALS: BP 107/71; PULSE 79; RESP 14; TEMP 36.1
[2023-09-27 12:40] VITALS: BP 109/62; PULSE 79; RESP 15; TEMP 36.7
[2023-09-27 12:41] VITALS: BP 109/62; PULSE 79; RESP 16; TEMP 36.7
== END 2023-09-27 13:40 | disposition home or self-care (01) | DRG 805 ==
LOC: WPOUT 03:35 → WP 03:35
PROVIDERS: Advanced Practice Midwife; Admitting Provider Obstetrics & Gynecology; PCP Family Medicine; Referring Provider Obstetrics & Gynecology; Visit Provider Obstetrics & Gynecology
DX: O48.0 Post-term pregnancy (principal); Z37.0 Single live birth; O99.42 Diseases of the circulatory system complicating childbirth; I47.10 Supraventricular tachycardia, unspecified; O99.12 Other diseases of the blood and blood-forming organs and certain disorders involving the immune mechanism complicating childbirth; K58.9 Irritable bowel syndrome, unspecified; D72.819 Decreased white blood cell count, unspecified; K21.9 Gastro-esophageal reflux disease without esophagitis; O26.843 Uterine size-date discrepancy, third trimester; O99.62 Diseases of the digestive system complicating childbirth; Z3A.40 40 weeks gestation of pregnancy
CPT/HCPCS: 59025; 59050; 84112; 85025; 86780; 86850; 86900; 86901; 99221; A4216; G0378

== ENCOUNTER → 2023-11-05 | Outpatient (CLI) | payer OTHER, SELFPAY ==
[2023-11-12 09:15] LABS: HPV Reflexed? NOT INDICATED
== END | disposition home or self-care (01) ==
PROVIDERS: PCP Family Medicine; Referring Provider Obstetrics & Gynecology; Visit Provider Obstetrics & Gynecology
DX: Z12.4 Encounter for screening for malignant neoplasm of cervix (principal)
CPT/HCPCS: 88175; G0145

== ENCOUNTER → 2023-12-13 | Outpatient (CLI) | payer MEDICAID, SELFPAY | END | disposition home or self-care (01) | PROVIDERS: PCP Family Medicine; Referring Provider Obstetrics & Gynecology; Visit Provider Obstetrics & Gynecology | DX: N63.0 Unspecified lump in unspecified breast (principal) | CPT/HCPCS: 76642 ==

== ENCOUNTER 2023-12-18 09:33 | Outpatient (CLI) | payer OTHER, MEDICAID, SELFPAY ==
--- NOTE | 2023-12-18 08:00 | BRBX_PTH ---
PATIENT: AQUILESMAY ARDEN LOC: [facility] U#:[id number] AGE/SX: 28/F ROOM: RE12/18/[address]: Dr. Mendez Del Toro MD : 1995 BED: DIS: 12/18/2023 SPEC #: [id number] RECD: 12/18/23 08:48 STATUS: YOEL REBailey #: [id number] SHAHANA: 12/18/23 08:[address]: Mendez Del Toro DEPT: SURGICAL PATHOLOGY RECD BY: Maria C Desir ENTERED: 12/18/23 10:08 SP TYPE: BREAST BX OT DR: Dr. Zachariah Rome DO Tissues: Left breast, NOS Procedures: Surgery Specimen Level IV HEADER OPERATION: Left breast biopsy PRE-OP DIAGNOSIS: Left breast mass TISSUE SUBMITTED: Left breast tissue MICROSCOPIC DIAGNOSIS Left breast, core biopsy: Consistent with benign lactational (tubular) adenoma of breast . AM.mr 12/19/2023 COMMENT Case has been reviewed in consultation with Dr. Rudd who concurs with the above diagnosis. IDC:[id number] MICROSCOPIC DESCRIPTION Slides are reviewed. GROSS DESCRIPTION Received in fixative is one container labeled with the patient's name and designated Left breast tissue. The specimen consists of multiple elongated fragments of blair-yellow fibroadipose tissue that in aggregate measure 1.0 x 0.3 x 0.1 cm. The specimen is totally submitted in one cassette. 12/18/2023 TC:5 CPT:90711
== END 2023-12-18 23:59 | disposition home or self-care (01) ==
LOC: LABSPEC 09:36
PROVIDERS: PCP Family Medicine; Referring Provider Surgery; Visit Provider Surgery
DX: D24.2 Benign neoplasm of left breast (principal)
CPT/HCPCS: 88305

== ENCOUNTER → 2024-02-14 | Outpatient (CLI) | payer MEDICAID, SELFPAY ==
--- NOTE | 2024-02-14 16:37 | US_ITS ---
STUDY: ULTRASOUND OF THE FEMALE PELVIS - COMPLETE REASON FOR EXAM: Female, 28 years old. left lower quadrant pain TECHNIQUE: Transvaginal and transabdominal imaging. COMPARISON: None. FINDINGS: The uterus is anteverted and is in a midline position. The uterus measures 6.5 cm. Normal uterine cervix. The endometrium measures 1 mm in thickness, and is hyperechoic. There is no demonstrated endometrial mass. There is no demonstrated myometrial mass. I.U.D. - The patient does not have an I.U.D. The right ovary is visualized. The right ovary measures 5.2 cm. There is no right ovarian cyst or ovarian mass. There is no visualized right adnexal mass or complex lesion. There is normal arterial and normal venous vascularity. The left ovary is visualized. The left ovary measures 3.9 cm. 14 mm simple cyst. There is no visualized left adnexal mass or complex lesion. There is normal arterial and normal venous vascularity. There is minimal fluid in the cul-de-sac. Urinary bladder volume is (in cc) 280. US/Pelvic w/ Transvaginal IMPRESSION: There are no acute findings. There is free fluid in the pelvis. This can be physiologic. Electronically Signed: Luis Daniel Kay MD at 21:49 EST ,
== END | disposition home or self-care (01) ==
LOC: US 16:36
PROVIDERS: PCP Family Medicine; Referring Provider Obstetrics & Gynecology; Visit Provider Obstetrics & Gynecology
DX: R10.32 Left lower quadrant pain (principal)
CPT/HCPCS: 76830; 76856

== ENCOUNTER → 2024-03-03 | Outpatient (CLI) | payer MEDICAID, SELFPAY ==
--- NOTE | 2024-03-03 09:37 | US_ITS ---
INDICATION: RUQ pain with burning EXAMINATION: Ultrasound US Abdomen RUQ (limited) TECHNIQUE: Waite scale and color doppler imaging was performed of the right upper quadrant. COMPARISON: None. FINDINGS: LIVER: 17.2 cm length. Unremarkable. Main portal vein patent with appropriate direction of flow. GALLBLADDER Size: Distended. Stones: None. Wall thickness: Not thickened. 2 mm. Pericholecystic fluid: None. Sonographic Giron sign: Negative. EXTRAHEPATIC BILE DUCTS: Common bile duct 4 mm not dilated. PANCREAS: Unremarkable. RIGHT KIDNEY: No hydronephrosis. ASCITES: None. US/Abdomen Limited IMPRESSION: Unremarkable study. Electronically Signed: Lucy Bess MD at 8:03 EST ,
== END | disposition home or self-care (01) ==
LOC: US 09:36
PROVIDERS: PCP Family Medicine; Referring Provider Student in an Organized Health Care Education/Training Program; Visit Provider Student in an Organized Health Care Education/Training Program
DX: R10.11 Right upper quadrant pain (principal); R10.13 Epigastric pain
CPT/HCPCS: 76705

== ENCOUNTER 2024-04-02 05:23 | Day surgery (SDC) | payer MEDICAID, SELFPAY ==
--- NOTE | 2024-03-31 16:55 | PAT.ANESEVAL ---
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 When Was Last Pacemaker Check QUESTION #4 FULL TEXT: You/Your Family Experience fever (hyperthermia) with Anesthesia Last Oral Intake Last Oral intake: Last Oral Intake NPO since Meds taken in AM with sips of water? 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 - stave saw operator: PONV - stave saw operator Female Yes 03/31/24 15:54 HX of Motion Sickness No 03/31/24 15:54 HX of N/V After Surgery No 03/31/24 15:54 Non-Smoker Yes 03/31/24 15:54 Duration of Surgery greater No 03/31/24 15:54 than 60 minutes Number of Risk Factors 2 03/31/24 15:54 PONV Score Moderate Risk 03/31/24 15:54 Height & Weight Height & Weight: Anesthesia: Height & Weight Height 5 ft 6 in 01/22/24 08:27 Respiratory Assessment Respiratory Assessment - stave saw operator: Respiratory Tract Infection Hx - stave saw operator Hx Respiratory Tract Infection No 03/31/24 15:54 STOP Sleep Apnea STOP Sleep Apnea - stave saw operator: STOP Sleep Apnea - stave saw operator Hx Hypertension No 03/31/24 15:54 Hx Sleep Apnea No 03/31/24 15:54 CPAP BIPAP Do you snore loudly (louder No 03/31/24 15:54 than talking or can be heard Do you often feel tired/ No 03/31/24 15:54 fatigued/ sleepy during daytime? Has anyone observed you stop No 03/31/24 15:54 breathing during sleep? STOP Results Negative 03/31/24 15:54 QUESTION #5 FULL TEXT : Do you snore loudly (louder than talking or can be heard through closed doors)? Tobacco Use History Tobacco Use History - stave saw operator: Tobacco Use History - stave saw operator Tobacco Use Smoking Status Never smoker 03/31/24 15:54 Hx Tobacco Use No 03/31/24 15:54 Years Smoking Packs Smoked per Day Smoking Cessation Date was within the last 15 years Hx Smoking Cessation Date Hx Smoking Cessation Counseling Hematologic Medial History Hematologic Hx - stave saw operator: Hematologic Medical Hx - non acoustic operator Hx of Blood Transfusion No 03/31/24 15:54 Hx of Transfusion in last 3 No 03/31/24 15:54 Months Date of Last Transfusion (if within last 3 months) Ever experience any problems No 03/31/24 15:54 with transfusion(s)? Specify any problems Hx of Preganancy in last 3 No 03/31/24 15:54 Months Nurse Filling Out Transfusion [email or web address] 03/31/24 15:54 & Questions: Date: 03/31/24 03/31/24 15:54 Time: 15:58 03/31/24 15:54 Patient unable to answer at this time (ie. confused, unrespo /Reproduction History /Reproductive History - stave saw operator: /Reproductive Hx- stave saw operator Hx Now No 03/31/24 15:54 Gestational Age (in weeks): EDC: Hx Hx Para Hx Section SAB Yes 03/31/24 15:54 PFSH Medical History (Updated 03/31/24 @ 16:01 by Jay Clemente) Thyroid disease Migraine headache History of Holter monitoring History of echocardiogram Cardiology follow-up encounter Vasovagal near syncope IBS (irritable bowel syndrome) GERD (gastroesophageal reflux disease) Diseases of the circulatory system complicating , unspecified trimester Supraventricular tachycardia, unspecified Supraventricular tachycardia during Heart palpitations History of kidney disease Hypothyroidism affecting Normal endoscopic ultrasound of upper gastrointestinal tract Seasonal allergies Supervision of high-risk Infertility associated with anovulation Home Medications ?Medication ?Instructions ?Recorded ?Last Taken ?Type L. crispatus, gasseri, jensenii, 2 tab PO DAILY 02/09/23 09/25/23 08:00 History rhamnosus 12 billion cell chew tablet (Culturelle Probiotic) docosahexaenoic acid 200 mg 200 mg PO DAILY 06/26/23 09/25/23 08:00 History capsule ( DHA) magnesium 200 mg tablet 200 mg PO DAILY 03/31/24 Unknown History Allergy/AdvReac Type Severity Reaction Status Date / Time nitrofurantoin Allergy Severe difficulty Verified 03/31/24 15:53 breathing alprazolam AdvReac Intermediate PT UNSURE Verified 03/31/24 15:53 OF REACTION quetiapine AdvReac Intermediate PT UNSURE Verified 03/31/24 15:53 OF REACTION Family History Grandmother Colon cancer Diabetes Mother Diabetes Pancreatic cancer Surgical History Hx of tonsillectomy [place] teeth extracted History of tonsillectomy Social History adopted: No household members: spouse and children number of children: 2 current occupational status: unemployed current occupation: [employer] current occupational exposures/hazards: No pets and animals: Yes (NOT MANAGING LITTERBOX) pets and animals: cat(s), dog(s), horse(s) and farm animals history of recent travel: No sexually active: Yes Smoking Status: Never smoker alcohol intake: never substance use type: does not use diet: other well-balanced diet: daily or most days caffeine: No eating out: 1-3 times/week during the past year weight has: remained stable what type of physical activity do you participate in: weight training frequency: 5-6 times per week duration: 15-30 minutes/day gale/judaism: Religion seatbelt use: always do you feel safe at home: Yes additional social history: - LUKE Audit: Pertinent Findings Pertinent Findings EKG Perinent findings: 05/10/2019: NSR Echo (EF%) pertinent findings: Echo 08/14/23: Normal LV size, LVEF normal (65%), Stage 1 diastolic dysfunx, no RWA Additional pertinent findings: holter monitor (07/25/23): normal sinus rhythm with occasional PVCs/PACs Recommendation Anesthesia Recommendation Anesthesia recommendation: OPTIMIZED for anesthesia
[2024-04-02] VITALS (8 sets, daily range): BP systolic 98–112; BP diastolic 63–75; PULSE 61–80; RESP 16; TEMP 36.1–36.6; O2SAT 98–100; BMI 29.2
--- NOTE | 2024-04-02 | COLBX_PTH ---
PATIENT: AQUILESMAY ARDEN LOC: EN U#:[id number] AGE/SX: 28/F ROOM: RE04/02/[address]: Dr. Aneudy Vogel DO : 1995 BED: DIS: 04/02/2024 SPEC #: [id number] RECD: 04/02/24 12:24 STATUS: YOEL KELLY #: [id number] SHAHANA: 04/02/24 00:[address]: Aneudy Vogel DEPT: SURGICAL PATHOLOGY RECD BY: Cayden Rome ENTERED: 04/02/24 12:24 SP TYPE: COLON BX KOFI DR: Dr. Zachariah Rome DO Tissues: A - Ileum, NOS B - COLON BIOPSY Procedures: Surgery Specimen Level IV HEADER OPERATION: Colonoscopy and biopsy PRE-OP DIAGNOSIS: Abdominal pain and lower GI bleeding TISSUE SUBMITTED: A- Terminal ileum biopsy, B- Random colonic biopsies MICROSCOPIC DIAGNOSIS A. Terminal ileum, biopsy: Fragments of small intestinal mucosa, no pathologic diagnosis. Fragments of fecal material. See comment. B. Colon, random biopsy: Fragments of colonic mucosa, no pathologic diagnosis. SILVANA. 04/03/2024 COMMENT A. Prominent lymphoid aggregates are noted. MICROSCOPIC DESCRIPTION Slides are reviewed. GROSS DESCRIPTION A. Received in fixative is one container labeled with the patient's name and designated Terminal ileum biopsy. The specimen consists of multiple irregular fragments of light blair soft tissue that in aggregate measure 1.7 x 0.2 x 0.2 cm. The specimen is totally submitted in one cassette. B. Received in fixative is one container labeled with the patient's name and designated Random colon biopsy. The specimen consists of multiple irregular fragments of light blair soft tissue that in aggregate measure 1.3 x 0.3 x 0.2 cm. The specimen is totally submitted in one cassette. BW.mr 04/02/2024 TC:4 CPT:[id number]
[2024-04-02 05:44] LABS: Internal QC Validated? YES +Cl - CLEAR BKGD; Pregnancy, Urine Negative Negative
--- NOTE | 2024-04-02 06:24 | PCM.POST.ANE ---
Anesthesia: Postop Eval I Current Vital Signs Temperature: 97.8 F Pulse Rate: 61 Blood Pressure: 98/63 Respiratory Rate: 16 Pulse Ox: 99 Oxygen Delivery Method: Room Air Assessment Airway patent: Yes Spontaneous unlabored respirations: Yes Mental status: Awake and Calm nausea: No Vomiting: No Anesthesia Complication: No Fluid Hydration Crystalloid volume administer (ml): 0 Total IV fluid infused: 0 Progress Note Anesthesia document: Postop Eval 1 completed: Yes
--- NOTE | 2024-04-02 06:25 | PRE.ANES_ITS ---
ASA Classification* ASA Classification ASA Classification: 2 Assessment & Plan Anesthesia* Anesthesia Assessment Anesthesia Assessment: Discussed sedation and/or anesthesia options, risks, benefits, and alternatives with patient/parents/legal guardian/POA. Questions invited. The patient/parents/legal guardian/POA seems to understand and agrees to proceed with anesthesia plan. Reviewed the physical assessment, medical history, allergy history and patient home medications list prior to surgery/procedure/anesthetic and documented any changes. Performed airway and anesthesia risk assessments. Anesthesia Type Anesthesia Type: MAC History Source History Obtained from:: Patient and Chart Anesthesia Focused Assessment* Temperature: 97.9 F Pulse Rate: 80 Blood Pressure: 112/70 Respiratory Rate: 16 Pulse Ox: 100 Oxygen Delivery Method: Room Air Airway Assessment Mouth opens: >3 cm Mallampati Score: II Teeth Condition: Intact Neck Range of motion (ROM): Full ROM Focused Labs Anesthesia Preop lab: CBC WBC 13.2 K/mm3 (4.4-11.0) H 09/26/23 04:00 4 RBC 4.73 M/mm3 (4.2-5.4) 09/26/23 04:00 09/26/23 Hgb 13.8 g/dL (12.0-15.0) 09/26/23 04:00 09/26/23 Hct 41.8 % (37-47) 09/26/23 04:00 09/26/23 Plt Count 132 K/mm3 (150-450) L 09/26/23 04:00 09/26/23 CHEMISTRY Potassium 3.7 mmol/L (3.5-5.1) 05/09/23 11:15 05/09/23 Sodium 136 mmol/L (136-145) 05/09/23 11:15 05/09/23 BUN 14 mg/dL (7-18) 05/09/23 11:15 05/09/23 Creatinine 0.56 mg/dL (0.55-1.02) 05/09/23 11:15 05/09/23 Glucose 85 mg/dL (74-106) 05/09/23 11:15 05/09/23 TSH 0.73 uIU/mL (0.358-3.74) 05/09/23 11:15 COAG Urine Test Negative Negative 04/02/24 05:35 04/02/24 Pre-Assessment Diagnosis/Proposed Procedure Planned Operative Procedure(s): COLONOSCOPY Anesthesia History 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 When Was Last Pacemaker Check QUESTION #4 FULL TEXT: You/Your Family Experience fever (hyperthermia) with Anesthesia Last Oral Intake Last Oral intake: Last Oral Intake NPO since 02:04/02/24 05:56 Meds taken in AM with sips of water? 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 - therapeutic program worker: PONV - therapeutic program worker Female Yes 03/31/24 15:54 HX of Motion Sickness No 03/31/24 15:54 HX of N/V After Surgery No 03/31/24 15:54 Non-Smoker Yes 03/31/24 15:54 Duration of Surgery greater No 03/31/24 15:54 than 60 minutes Number of Risk Factors 2 03/31/24 15:54 PONV Score Moderate Risk 03/31/24 15:54 Height & Weight Height & Weight: Anesthesia: Height & Weight Height 5 ft 6 in 04/02/24 05:56 Weight: 82 kg 04/02/24 05:56 Body Mass Index (BMI) 29.2 04/02/24 05:56 Respiratory Assessment Respiratory Assessment - therapeutic program worker: Respiratory Tract Infection Hx - therapeutic program worker Hx Respiratory Tract Infection No 03/31/24 15:54 STOP Sleep Apnea STOP Sleep Apnea - therapeutic program worker: STOP Sleep Apnea - therapeutic program worker Hx Hypertension No 03/31/24 15:54 Hx Sleep Apnea No 03/31/24 15:54 CPAP BIPAP Do you snore loudly (louder No 03/31/24 15:54 than talking or can be heard Do you often feel tired/ No 03/31/24 15:54 fatigued/ sleepy during daytime? Has anyone observed you stop No 03/31/24 15:54 breathing during sleep? STOP Results Negative 03/31/24 15:54 QUESTION #5 FULL TEXT : Do you snore loudly (louder than talking or can be heard through closed doors)? 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 Specify any problems Hx of Preganancy in last 3 No 03/31/24 15:54 Months Nurse Filling Out Transfusion [email or web address] 03/31/24 15:54 & Questions: Date: 03/31/24 03/31/24 15:54 Time: 15:58 03/31/24 15:54 Patient unable to answer at this time (ie. confused, unrespo /Reproduction History /Reproductive History - therapeutic program worker: /Reproductive Hx- therapeutic program worker Hx Now No 03/31/24 15:54 Gestational Age (in weeks): EDC: Hx Hx Para Hx Section SAB Yes 03/31/24 15:54 PFSH Medical History (Updated 03/31/24 @ 16:01 by Jay Clemente) Thyroid disease Migraine headache History of Holter monitoring History of echocardiogram Cardiology follow-up encounter Vasovagal near syncope IBS (irritable bowel syndrome) GERD (gastroesophageal reflux disease) Diseases of the circulatory system complicating , unspecified trimester Supraventricular tachycardia, unspecified Supraventricular tachycardia during Heart palpitations History of kidney disease Hypothyroidism affecting Normal endoscopic ultrasound of upper gastrointestinal tract Seasonal allergies Supervision of high-risk Infertility associated with anovulation Home Medications ?Medication ?Instructions ?Recorded ?Last Taken ?Type L. crispatus, gasseri, jensenii, 2 tab PO DAILY 09/25/23 08:00 History rhamnosus 12 billion cell chew tablet (Culturelle Probiotic) docosahexaenoic acid 200 mg 200 mg PO DAILY 06/26/23 0 09/25/23 08:00 History capsule ( DHA) magnesium 200 mg tablet 200 mg PO DAILY 03/31/24 Unk nown History Allergy/AdvReac Type Severity Reaction Status Date / Time nitrofurantoin Allergy Severe difficulty Verified 04/02/24 05:55 breathing alprazolam AdvReac Intermediate PT UNSURE Verified 04/02/24 05:55 OF REACTION quetiapine AdvReac Intermediate PT UNSURE Verified 04/02/24 05:55 OF REACTION Family History Grandmother Colon cancer Diabetes Mother Diabetes Pancreatic cancer Surgical History Hx of tonsillectomy [place] teeth extracted History of tonsillectomy Social History adopted: No household members: spouse and children number of children: 2 current occupational status: unemployed current occupation: [employer] current occupational exposures/hazards: No pets and animals: Yes (NOT MANAGING LITTERBOX) pets and animals: cat(s), dog(s), horse(s) and farm animals history of recent travel: No sexually active: Yes Smoking Status: Never smoker alcohol intake: never substance use type: does not use diet: other well-balanced diet: daily or most days caffeine: No eating out: 1-3 times/week during the past year weight has: remained stable what type of physical activity do you participate in: weight training frequency: 5-6 times per week duration: 15-30 minutes/day gale/spiritism: Voodoo seatbelt use: always do you feel safe at home: Yes additional social history: - LUKE Review of Systems (Anesthesia) ROS Narrative System reviewed and no additional complaints, except as documented. Physical Exam Const alert and oriented x3 HEENT dentition normal Neck full ROM Resp normal respiratory effort Neuro oriented x3 and moves all extremities
--- NOTE | 2024-04-02 06:46 | HP.PCM_ITS ---
HPI - General General Date of Admission: 04/02/24 Date of Service: 04/02/24 Chief Complaint: abdominal pain and lower GI bleeding HPI Narrative NIKUNJ KWAN, is a 28 F who presents today for endoscopic evaluation of abdominal pain and blood in the stool. Pt has been struggling with abd pain since being with her second child. It started in the left lower quadrant but has no migrated to the right side. She is also having some epigastric pain and heartburn. She has been having more frequent and loose stool over the past couple of weeks. She is having a bm up to 3 times per day. She was diary free for some time and recently added daily marina in and she feels this may be a part of her issues. She has a family hx of pancreatic cancer. Her mother from this in her 50s. She feels nervous about this and is worried she may have a pancreas problem. [facility] Medical History Thyroid disease Migraine headache History of Holter monitoring History of echocardiogram Cardiology follow-up encounter Vasovagal near syncope IBS (irritable bowel syndrome) GERD (gastroesophageal reflux disease) Diseases of the circulatory system complicating , unspecified trimester Supraventricular tachycardia, unspecified Supraventricular tachycardia during Heart palpitations History of kidney disease Hypothyroidism affecting Normal endoscopic ultrasound of upper gastrointestinal tract Seasonal allergies Supervision of high-risk Infertility associated with anovulation Home Medications ?Medication ?Instructions ?Recorded ?Last Taken ?Type L. crispatus, gasseri, jensenii, 2 tab PO DAILY 09/25/23 08:00 History rhamnosus 12 billion cell chew tablet (Culturelle Probiotic) docosahexaenoic acid 200 mg 200 mg PO DAILY 06/26/23 0 09/25/23 08:00 History capsule ( DHA) magnesium 200 mg tablet 200 mg PO DAILY 03/31/24 Unk nown History Allergy/AdvReac Type Severity Reaction Status Date / Time nitrofurantoin Allergy Severe difficulty Verified 04/02/24 05:55 breathing alprazolam AdvReac Intermediate PT UNSURE Verified 04/02/24 05:55 OF REACTION quetiapine AdvReac Intermediate PT UNSURE Verified 04/02/24 05:55 OF REACTION Family History Grandmother Colon cancer Diabetes Mother Diabetes Pancreatic cancer Surgical History Hx of tonsillectomy [place] teeth extracted History of tonsillectomy Social History adopted: No household members: spouse and children number of children: 2 current occupational status: unemployed current occupation: [employer] current occupational exposures/hazards: No pets and animals: Yes (NOT MANAGING LITTERBOX) pets and animals: cat(s), dog(s), horse(s) and farm animals history of recent travel: No sexually active: Yes Smoking Status: Never smoker alcohol intake: never substance use type: does not use diet: other well-balanced diet: daily or most days caffeine: No eating out: 1-3 times/week during the past year weight has: remained stable what type of physical activity do you participate in: weight training frequency: 5-6 times per week duration: 15-30 minutes/day gale/shinto: Confucianist seatbelt use: always do you feel safe at home: Yes additional social history: - LUKE ROS Constitutional Constitutional: Denies fatigue, fever(s), poor appetite, weight gain or weight loss Gastrointestinal Gastrointestinal: Denies belching, bloating, change in bowel habits, change in stool character, chewing difficulty, coffee ground emesis, constipation, cramping, diarrhea, dyspepsia, dysphagia, early satiety, excessive flatus, fecal incontinence, heartburn, hematemesis, hematochezia, hemorrhoids, loose stools, melena, nausea, odynophagia, rectal bleeding, tenesmus, vomiting or weight changes Vital Signs Vital Signs Vital Signs: 04/02/24 05:56 04/02/24 05:56 04/02/24 06:26 Temperature 97.9 F 97.9 F Temperature Source Temporal Pulse Rate 80 80 Respiratory Rate 16 16 Respiratory Pattern Normal Blood Pressure 112/70 112/70 Blood Pressure Mean 84 Blood Pressure Source Monitor Blood Pressure Position Semi-Fowlers Blood Pressure Location Left Arm Pulse Ox 100 100 Oxygen Delivery Method Room Air Room Air Weight Weight: 180 lb 12.465 oz Body Mass Index (BMI) 29.2 Physical Exam Const alert, oriented x3, no apparent distress and healthy appearing General Appearance: cooperative GI normal to inspection, nondistended, normoactive bowel sounds, soft to palpation, non-tender and non-distended Percussion: normal to percussion Rectal Exam: deferred Results Lab / Micro Data Labs: Laboratory Results - last 24 hr 04/02/24 05:35: Urine Test Negative Assessment & Plan Assessment/Plan (1) Epigastric abdominal pain: (2) Blood in stool: (3) Left lower quadrant pain: PLAN: Assessment and Plan Assessment and Plan (1) Epigastric abdominal pain: Status: Acute Plan: This is a 28 yo female pt here today for evaluation of abd pain, epigastric pain and overall feeling unwell. Pt started having the pain during her and it has continued. She does have a hx of IBS. Her mother from pancreatic cancer. She will undergo EGD and colonoscopy to assess her GI tract for inflammation. I will order stool testing due to increased frequency. Her PCP ordered blood work and she will have this sent to us. Also ordered lipase and amylase to monitor for issues with the pancreas and for her piece of mind. -Colonoscopy and EGD -Stool tests -PCP ordered CBC -Recommended she start PPI -Amylase and lipase (2) Blood in stool: Status: Acute Orders: Orders Lipase Today R10.13 - Epigastric pain Amylase Today R10.13 - Epigastric pain ENTERIC PATHOGEN PANEL STOOL Today K58.9 - Irritable bowel syndrome, unspecified, K92.1 - Melena Ova and Parasites [id number] Today K58.9 - Irritable bowel syndrome, unspecified, K92.1 - Melena Pancreatic Elastase, Fecal Today K92.1 - Melena Stool Lactoferrin/WBC Today K58.9 - Irritable bowel syndrome, unspecified, K92.1 - Melena CDIFF (PCR) Today K92.1 - Melena Calprotectin, Stool Today K92.1 - Melena Giardia Lamblia, Stool EIA Today K92.1 - Melena Coding
--- NOTE | 2024-04-02 07:18 | PCM.POST.ANE ---
Anesthesia: Postop Eval I Current Vital Signs Temperature: 97.8 F Pulse Rate: 61 Blood Pressure: 98/63 Respiratory Rate: 16 Pulse Ox: 99 Oxygen Delivery Method: Room Air Assessment Airway patent: Yes Spontaneous unlabored respirations: Yes Mental status: Awake and Calm nausea: No Vomiting: No Anesthesia Complication: No Fluid Hydration Crystalloid volume administer (ml): 40 Total IV fluid infused: 40 Progress Note Anesthesia document: Postop Eval 1 completed: Yes
--- NOTE | 2024-04-02 07:27 | OP.COLON_ITS ---
Patient Name: Dulce Maria Machelle Procedure Date: 04/02/2024 6:35 AM Date of : 1995 Age: 28 Procedure: Colonoscopy Indications: Hematochezia Providers: DO Naomi Rush MD: Zachariah Rome Medicines: Monitored Anesthesia Care Patient Profile: This is a 28 year old female. Refer to note in patient chart for documentation of history and physical. Last Colonoscopy: none. The patient's first colonoscopy is today. Complications: No immediate complications. Procedure: Pre-Anesthesia Assessment: - Prior to the procedure, a History and Physical was performed, and patient medications and allergies were reviewed. The patient is competent. The risks and benefits of the procedure and the sedation options and risks were discussed with the patient. All questions were answered and informed consent was obtained. Patient identification and proposed procedure were verified by the physician in the pre-procedure area. Mental Status Examination: alert and oriented. Airway Examination: normal oropharyngeal airway and neck mobility. Respiratory Examination: clear to auscultation. CV Examination: normal. Prophylactic Antibiotics: The patient does not require prophylactic antibiotics. Prior Anticoagulants: The patient has taken no anticoagulant or antiplatelet agents except for NSAID medication. ASA Grade Assessment: II - A patient with mild systemic disease. After reviewing the risks and benefits, the patient was deemed in satisfactory condition to undergo the procedure. The anesthesia plan was to use monitored anesthesia care (MAC). Immediately prior to administration of medications, the patient was re-assessed for adequacy to receive sedatives. The heart rate, respiratory rate, oxygen saturations, blood pressure, adequacy of pulmonary ventilation, and response to care were monitored throughout the procedure. The physical status of the patient was re-assessed after the procedure. After I obtained informed consent, the scope was passed under direct vision. Throughout the procedure, the patient's blood pressure, pulse, and oxygen saturations were monitored continuously. The Colonoscope was introduced through the anus and advanced to the terminal ileum. The colonoscopy was performed without difficulty. The patient tolerated the procedure well. The quality of the bowel preparation was adequate. The terminal ileum, ileocecal valve, appendiceal orifice, and rectum were photographed. Scope In: 6:57:24 AM Scope Withdrawal Time 0 hours 9 minutes 19 seconds Scope Out: 7:10:13 AM Total Procedure Duration Time 0 hours 12 minutes 49 seconds Findings: The perianal and digital rectal examinations were normal. Non-bleeding external and internal hemorrhoids were found during retroflexion. The hemorrhoids were Grade II (internal hemorrhoids that prolapse but reduce spontaneously). There was a small lipoma, 10 mm in diameter, at the splenic flexure. An area of mildly congested mucosa was found in the recto-sigmoid colon and in the transverse colon. Biopsies were taken with a cold forceps for histology. Verification of patient identification for the specimen was done. Estimated blood loss was minimal. The terminal ileum appeared normal. Biopsies were taken with a cold forceps for histology. Verification of patient identification for the specimen was done. Estimated blood loss was minimal. Impression: - Non-bleeding external and internal hemorrhoids. - Small lipoma at the splenic flexure. - Congested mucosa in the recto-sigmoid colon and in the transverse colon. Biopsied. - The examined portion of the ileum was normal. Biopsied. Recommendation: - Discharge patient to home. - Resume previous diet. - Continue present medications. - Await pathology results. - Repeat colonoscopy for screening purposes. Procedure Code(s): --- Professional --- 05221, Colonoscopy, flexible; with biopsy, single or multiple CPT copyright 2021 [employer]. All rights reserved. The codes documented in this report are preliminary and upon pilot highway patrol review may be revised to meet current compliance requirements. Aneudy Vogel DO 04/02/2024 7:26:31 AM This report has been signed electronically. Number of Addenda: 0 Note Initiated On: 04/02/2024 6:35 AM
--- NOTE | 2024-04-02 07:27 | OP.CCLET_ITS ---
04/02/2024 Zachariah Rome Re : Colonoscopy procedure for May Machelle Saadiar Wild This procedure was performed on Tuesday, April 02, 2024. My impressions and recommendations are as follows: Impressions : - Non-bleeding external and internal hemorrhoids. - Small lipoma at the splenic flexure. - Congested mucosa in the recto-sigmoid colon and in the transverse colon. Biopsied. - The examined portion of the ileum was normal. Biopsied. Recommendations : - Discharge patient to home. - Resume previous diet. - Continue present medications. - Await pathology results. - Repeat colonoscopy for screening purposes. My findings are described in the full procedure note, which is enclosed. If I can be of further assistance, please feel free to contact me at . Sincerely, Aneudy Vogel, 04/02/2024 7:26:31 AM This report has been signed electronically.
--- NOTE | 2024-04-02 07:58 | PCM.POSTANE2 ---
Anesthesia Postop Eval I Sum Postop Eval Completion status Anesthesia document: Postop Eval 1 completed: Yes Anesthesia Postop Eval I Summary Anesthesia Postop Eval I Summary: Anesthesia Postop Eval I: Assessment Summary Airway patent Yes 04/02/24 07:57 Spontaneous unlabored Yes 04/02/24 07:57 respirations Mental status Awake,Calm 04/02/24 07:57 nausea No 04/02/24 07:57 Vomiting No 04/02/24 07:57 Anesthesia Postop Eval I: Fluid Summary Crystalloid volume administer 0 04/02/24 07:57 (ml) Colloids volume administered ( ml) Blood Product volume administered (ml) Total IV fluid infused 0 04/02/24 07:57 Anesthesia Postop Eval I: Summary Notes Anesthesia Complication No 04/02/24 07:57 Anesthesia Complication Comment: Post-operative progress note Anesthesia: Postop Eval II Evaluation Mental status: Awake and Calm Pain Level: 2 nausea: No Vomiting: No Complications Anesthesia Complication: No
== END 2024-04-02 07:49 | disposition home or self-care (01) ==
LOC: EN 05:23 → AC 05:24
PROVIDERS: Anesthesiology; PCP Family Medicine; Referring Provider Family Medicine; Visit Provider Internal Medicine Gastroenterology
PROC: 0DJD8ZZ Inspection of Lower Intestinal Tract, Via Natural or Artificial Opening Endoscopic (ICD-10-PCS; CPT 45378; principal; 2024-04-02 06:25)
DX: K92.1 Melena (principal); K64.1 Second degree hemorrhoids; K64.4 Residual hemorrhoidal skin tags; K58.9 Irritable bowel syndrome, unspecified; R10.32 Left lower quadrant pain; R10.13 Epigastric pain; Z80.0 Family history of malignant neoplasm of digestive organs; D17.5 Benign lipomatous neoplasm of intra-abdominal organs
CPT/HCPCS: 45380; 81025; 88305; A4216; J2405

== ENCOUNTER 2024-08-19 10:05 | Day surgery (SDC) | payer MEDICAID, SELFPAY ==
--- NOTE | 2024-08-14 16:54 | PAT.ANE_ITS ---
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 When Was Last Pacemaker Check QUESTION #4 FULL TEXT: You/Your Family Experience fever (hyperthermia) with Anesthesia Last Oral Intake Last Oral intake: Last Oral Intake NPO since Meds taken in AM with sips of water? 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 - mobile crane operator: PONV - mobile crane operator Female Yes 08/14/24 12:12 HX of Motion Sickness No 08/14/24 12:12 HX of N/V After Surgery No 08/14/24 12:12 Non-Smoker Yes 08/14/24 12:12 Duration of Surgery greater No 08/14/24 12:12 than 60 minutes Number of Risk Factors 2 08/14/24 12:12 PONV Score Moderate Risk 08/14/24 12:12 Height & Weight Height & Weight: Anesthesia: Height & Weight Height 5 ft 6 in 08/05/24 08:23 Respiratory Assessment Respiratory Assessment - mobile crane operator: Respiratory Tract Infection Hx - mobile crane operator Hx Respiratory Tract Infection No 08/14/24 12:12 STOP Sleep Apnea STOP Sleep Apnea - mobile crane operator: STOP Sleep Apnea - mobile crane operator Hx Hypertension No 08/14/24 12:12 Hx Sleep Apnea No 08/14/24 12:12 CPAP BIPAP Do you snore loudly (louder No 08/14/24 12:12 than talking or can be heard Do you often feel tired/ No 08/14/24 12:12 fatigued/ sleepy during
--- NOTE | 2024-08-14 16:54 | PAT.ANE_ITS ---
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 When Was Last Pacemaker Check QUESTION #4 FULL TEXT: You/Your Family Experience fever (hyperthermia) with Anesthesia Last Oral Intake Last Oral intake: Last Oral Intake NPO since Meds taken in AM with sips of water? 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 - corporate relations manager: PONV - corporate relations manager Female Yes 08/14/24 12:12 HX of Motion Sickness No 08/14/24 12:12 HX of N/V After Surgery No 08/14/24 12:12 Non-Smoker Yes 08/14/24 12:12 Duration of Surgery greater No 08/14/24 12:12 than 60 minutes Number of Risk Factors 2 08/14/24 12:12 PONV Score Moderate Risk 08/14/24 12:12 Height & Weight Height & Weight: Anesthesia: Height & Weight Height 5 ft 6 in 08/05/24 08:23 Respiratory Assessment Respiratory Assessment - corporate relations manager: Respiratory Tract Infection Hx - corporate relations manager Hx Respiratory Tract Infection No 08/14/24 12:12 STOP Sleep Apnea STOP Sleep Apnea - corporate relations manager: STOP Sleep Apnea - corporate relations manager Hx Hypertension No 08/14/24 12:12 Hx Sleep Apnea No 08/14/24 12:12 CPAP BIPAP Do you snore loudly (louder No 08/14/24 12:12 than talking or can be heard Do you often feel tired/ No 08/14/24 12:12 fatigued/ sleepy during
--- NOTE | 2024-08-14 16:54 | PAT.ANESEVAL ---
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 When Was Last Pacemaker Check QUESTION #4 FULL TEXT: You/Your Family Experience fever (hyperthermia) with Anesthesia Last Oral Intake Last Oral intake: Last Oral Intake NPO since Meds taken in AM with sips of water? 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 - head porter: PONV - head porter Female Yes 08/14/24 12:12 HX of Motion Sickness No 08/14/24 12:12 HX of N/V After Surgery No 08/14/24 12:12 Non-Smoker Yes 08/14/24 12:12 Duration of Surgery greater No 08/14/24 12:12 than 60 minutes Number of Risk Factors 2 08/14/24 12:12 PONV Score Moderate Risk 08/14/24 12:12 Height & Weight Height & Weight: Anesthesia: Height & Weight Height 5 ft 6 in 08/05/24 08:23 Respiratory Assessment Respiratory Assessment - head porter: Respiratory Tract Infection Hx - head porter Hx Respiratory Tract Infection No 08/14/24 12:12 STOP Sleep Apnea STOP Sleep Apnea - head porter: STOP Sleep Apnea - head porter Hx Hypertension No 08/14/24 12:12 Hx Sleep Apnea No 08/14/24 12:12 CPAP BIPAP Do you snore loudly (louder No 08/14/24 12:12 than talking or can be heard Do you often feel tired/ No 08/14/24 12:12 fatigued/ sleepy during daytime? Has anyone observed you stop No 08/14/24 12:12 breathing during sleep? STOP Results Negative 08/14/24 12:12 QUESTION #5 FULL TEXT : Do you snore loudly (louder than talking or can be heard through closed doors)? 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 Specify any problems Hx of Preganancy in last 3 No 08/14/24 12:12 Months Nurse Filling Out Transfusion [email or web address] 08/14/24 12:12 & Questions: Date: 08/14/24 08/14/24 12:12 Time: 12:15 08/14/24 12:12 Patient unable to answer at this time (ie. confused, unrespo /Reproduction History /Reproductive History - head porter: /Reproductive Hx- head porter Hx Now No 08/14/24 12:12 Gestational Age (in weeks): EDC: Hx Hx Para Hx Section SAB Yes 08/14/24 12:12 PFSH Medical History Adenoma of breast Thyroid disease Migraine headache History of Holter monitoring History of echocardiogram Cardiology follow-up encounter Vasovagal near syncope IBS (irritable bowel syndrome) GERD (gastroesophageal reflux disease) Diseases of the circulatory system complicating , unspecified trimester Supraventricular tachycardia, unspecified Supraventricular tachycardia during Heart palpitations History of kidney disease Hypothyroidism affecting Normal endoscopic ultrasound of upper gastrointestinal tract Seasonal allergies Supervision of high-risk Infertility associated with anovulation Home Medications ?Medication ?Instructions ?Recorded ?Last Taken ?Type L. crispatus, gasseri, jensenii, 2 tab PO DAILY 02/09/23 09/25/23 08:00 History rhamnosus 12 billion cell chew tablet (Culturelle Probiotic) docosahexaenoic acid 200 mg 200 mg PO DAILY 06/26/23 09/25/23 08:00 History capsule ( DHA) Allergy/AdvReac Type Severity Reaction Status Date / Time nitrofurantoin Allergy Severe difficulty Verified 08/14/24 12:11 breathing alprazolam AdvReac Intermediate PT UNSURE Verified 08/14/24 12:11 OF REACTION quetiapine AdvReac Intermediate PT UNSURE Verified 08/14/24 12:11 OF REACTION Family History Grandmother Colon cancer Diabetes Mother Diabetes Pancreatic cancer Surgical History Hx of tonsillectomy [place] teeth extracted History of tonsillectomy Social History adopted: No household members: spouse and children number of children: 2 current occupational status: unemployed current occupation: [employer] current occupational exposures/hazards: No pets and animals: Yes (NOT MANAGING LITTERBOX) pets and animals: cat(s), dog(s), horse(s) and farm animals history of recent travel: No sexually active: Yes Smoking Status: Never smoker alcohol intake: never substance use type: does not use diet: other well-balanced diet: daily or most days caffeine: No eating out: 1-3 times/week during the past year weight has: remained stable what type of physical activity do you participate in: weight training frequency: 5-6 times per week duration: 15-30 minutes/day gale/yarsani: Judaism seatbelt use: always do you feel safe at home: Yes additional social history: - [facility] Audit: Pertinent Findings Pertinent Findings EKG Perinent findings: July 18, 2023. Sinus tachycardia within normal limits. Echo (EF%) pertinent findings: 08/14/2023. EF of 65%. No aortic stenosis noted. Consult pertinent findings: 07/18/2023. Dr. Silva. 1. Heart palpitations?acute-she has history of palpitations with previous . Patient does have episodes of palpitations. Get an echo and a 24-hour Holter (see above and below). Recommendations to be made according to results. Additional pertinent findings: 07/25/2023. Holter monitor. Average rhythm was normal sinus rhythm. The PVC burden was 1.7%. There were total of 27 supraventricular ectopic beats. There was no atrial fibrillation. Patient noted palpitations on her diary which occasionally correlated with ectopy. Recommendation Anesthesia Recommendation Anesthesia recommendation: OPTIMIZED for anesthesia
--- NOTE | 2024-08-14 16:54 | PAT.ANESEVAL ---
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 When Was Last Pacemaker Check QUESTION #4 FULL TEXT: You/Your Family Experience fever (hyperthermia) with Anesthesia Last Oral Intake Last Oral intake: Last Oral Intake NPO since Meds taken in AM with sips of water? 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 Female Yes 08/14/24 12:12 HX of Motion Sickness No 08/14/24 12:12 HX of N/V After Surgery No 08/14/24 12:12 Non-Smoker Yes 08/14/24 12:12 Duration of Surgery greater No 08/14/24 12:12 than 60 minutes Number of Risk Factors 2 08/14/24 12:12 PONV Score Moderate Risk 08/14/24 12:12 Height & Weight Height & Weight: Anesthesia: Height & Weight Height 5 ft 6 in 08/05/24 08:23 Respiratory Assessment Respiratory Assessment - jewelry store manager: Respiratory Tract Infection Hx - jewelry store manager Hx Respiratory Tract Infection No 08/14/24 12:12 STOP Sleep Apnea STOP Sleep Apnea - jewelry store manager: STOP Sleep Apnea - jewelry store manager Hx Hypertension No 08/14/24 12:12 Hx Sleep Apnea No 08/14/24 12:12 CPAP BIPAP Do you snore loudly (louder No 08/14/24 12:12 than talking or can be heard Do you often feel tired/ No 08/14/24 12:12 fatigued/ sleepy during daytime? Has anyone observed you stop No 08/14/24 12:12 breathing during sleep? STOP Results Negative 08/14/24 12:12 QUESTION #5 FULL TEXT : Do you snore loudly (louder than talking or can be heard through closed doors)? 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 Specify any problems Hx of Preganancy in last 3 No 08/14/24 12:12 Months Nurse Filling Out Transfusion [email or web address] 08/14/24 12:12 & Questions: Date: 08/14/24 08/14/24 12:12 Time: 12:15 08/14/24 12:12 Patient unable to answer at this time (ie. confused, unrespo /Reproduction History /Reproductive History - jewelry store manager: /Reproductive Hx- jewelry store manager Hx Now No 08/14/24 12:12 Gestational Age (in weeks): EDC: Hx Hx Para Hx Section SAB Yes 08/14/24 12:12 PFSH Medical History Adenoma of breast Thyroid disease Migraine headache History of Holter monitoring History of echocardiogram Cardiology follow-up encounter Vasovagal near syncope IBS (irritable bowel syndrome) GERD (gastroesophageal reflux disease) Diseases of the circulatory system complicating , unspecified trimester Supraventricular tachycardia, unspecified Supraventricular tachycardia during Heart palpitations History of kidney disease Hypothyroidism affecting Normal endoscopic ultrasound of upper gastrointestinal tract Seasonal allergies Supervision of high-risk Infertility associated with anovulation Home Medications ?Medication ?Instructions ?Recorded ?Last Taken ?Type L. crispatus, gasseri, jensenii, 2 tab PO DAILY 02/09/23 09/25/23 08:00 History rhamnosus 12 billion cell chew tablet (Culturelle Probiotic) docosahexaenoic acid 200 mg 200 mg PO DAILY 06/26/23 09/25/23 08:00 History capsule ( DHA) Allergy/AdvReac Type Severity Reaction Status Date / Time nitrofurantoin Allergy Severe difficulty Verified 08/14/24 12:11 breathing alprazolam AdvReac Intermediate PT UNSURE Verified 08/14/24 12:11 OF REACTION quetiapine AdvReac Intermediate PT UNSURE Verified 08/14/24 12:11 OF REACTION Family History Grandmother Colon cancer Diabetes Mother Diabetes Pancreatic cancer Surgical History Hx of tonsillectomy [place] teeth extracted History of tonsillectomy Social History adopted: No household members: spouse and children number of children: 2 current occupational status: unemployed current occupation: [employer] current occupational exposures/hazards: No pets and animals: Yes (NOT MANAGING LITTERBOX) pets and animals: cat(s), dog(s), horse(s) and farm animals history of recent travel: No sexually active: Yes Smoking Status: Never smoker alcohol intake: never substance use type: does not use diet: other well-balanced diet: daily or most days caffeine: No eating out: 1-3 times/week during the past year weight has: remained stable what type of physical activity do you participate in: weight training frequency: 5-6 times per week duration: 15-30 minutes/day gale/anabaptism: Anabaptist seatbelt use: always do you feel safe at home: Yes additional social history: - [employer] Audit: Pertinent Findings Pertinent Findings EKG Perinent findings: July 18, 2023. Sinus tachycardia within normal limits. Echo (EF%) pertinent findings: 08/14/2023. EF of 65%. No aortic stenosis noted. Consult pertinent findings: 07/18/2023. Dr. Silva. 1. Heart palpitations?acute-she has history of palpitations with previous . Patient does have episodes of palpitations. Get an echo and a 24-hour Holter (see above and below). Recommendations to be made according to results. Additional pertinent findings: 07/25/2023. Holter monitor. Average rhythm was normal sinus rhythm. The PVC burden was 1.7%. There were total of 27 supraventricular ectopic beats. There was no atrial fibrillation. Patient noted palpitations on her diary which occasionally correlated with ectopy. Recommendation Anesthesia Recommendation Anesthesia recommendation: OPTIMIZED for anesthesia
[2024-08-19] VITALS (8 sets, daily range): BP systolic 104–123; BP diastolic 57–73; PULSE 60–73; RESP 16; TEMP 36.3–36.6; O2SAT 99–100; BMI 27.0
[2024-08-19 10:28] LABS: Internal QC Validated? YES +Cl - CLEAR BKGD; Pregnancy, Urine Negative Negative; Record Kit Lot#,Urine Preg 962302
[2024-08-19] MEDS: Lactated Ringers 1,000 ML 15 ML IV (10:47)
--- NOTE | 2024-08-19 10:58 | PCM.PRE.AN2 ---
ASA Classification* ASA Classification ASA Classification: 2 Assessment & Plan Anesthesia* Anesthesia Assessment Anesthesia Assessment: Discussed sedation and/or anesthesia options, risks, benefits, and alternatives with patient/parents/legal guardian/POA. Questions invited. The patient/parents/legal guardian/POA seems to understand and agrees to proceed with anesthesia plan. Reviewed the physical assessment, medical history, allergy history and patient home medications list prior to surgery/procedure/anesthetic and documented any changes. Performed airway and anesthesia risk assessments. Anesthesia Type Anesthesia Type: MAC History Source History Obtained from:: Patient and Chart Anesthesia Focused Assessment* Temperature: 97.8 F Pulse Rate: 73 Blood Pressure: 123/73 Respiratory Rate: 16 Pulse Ox: 100 Oxygen Delivery Method: Room Air Airway Assessment Mouth opens: >3 cm Mallampati Score: IV Teeth Condition: Intact Neck Range of motion (ROM): Full ROM Labs Anesthesia Preop lab: CBC WBC 13.2 K/mm3 (4.4-11.0) H 09/26/23 04:00 09/26/23 RBC 4.73 M/mm3 (4.2-5.4) 09/26/23 04:00 09/26/23 Hgb 13.8 g/dL (12.0-15.0) 09/26/23 04:00 09/26/23 Hct 41.8 % (37-47) 09/26/23 04:00 09/26/23 Plt Count 132 K/mm3 (150-450) L 09/26/23 04:00 09/26/23 CHEMISTRY Potassium 3.7 mmol/L (3.5-5.1) 05/09/23 11:15 05/09/23 Sodium 136 mmol/L (136-145) 05/09/23 11:15 05/09/23 BUN 14 mg/dL (7-18) 05/09/23 11:15 05/09/23 Creatinine 0.56 mg/dL (0.55-1.02) 05/09/23 11:15 05/09/23 Glucose 85 mg/dL (74-106) 05/09/23 11:15 05/09/23 TSH 0.73 uIU/mL (0.358-3.74) 05/09/23 11:15 05/09/23 COAG Urine Test Negative Negative 08/19/24 10:15 08/19/24 Pre-Assessment Diagnosis/Proposed Procedure Planned Operative Procedure(s): LEFT BREAST LUMPECTOMY WITH ULTRASOUND Anesthesia History Anesthesia History - watch inspector final movement: Anesthesia History - watch inspector final movement Hx Hospitalization Yes: HAD BABY 10 MONTHS AGO 08/14/24 12:12 Any Problems With Anesthesia No 08/14/24 12:12 Cholinesterase deficiency No 08/14/24 12:12 You/Your Family Experience No 08/14/24 12:12 fever (hyperthermia) with Relationship Recent Exposure to Contagious No 08/19/24 10:41 Disease Does patient have nerve No 08/14/24 12:12 stimulator Patient instructed to have device shut off --Does patient have Pacemaker No 08/19/24 10:41 or ICD? When Was Last Pacemaker Check QUESTION #4 FULL TEXT: You/Your Family Experience fever (hyperthermia) with Anesthesia Last Oral Intake Last Oral intake: Last Oral Intake NPO since 21:00 08/19/24 10:41 Meds taken in AM with sips of No 08/19/24 10:41 water? 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 - watch inspector final movement: PONV - watch inspector final movement Female Yes 08/14/24 12:12 HX of Motion Sickness No 08/14/24 12:12 HX of N/V After Surgery No 08/14/24 12:12 Non-Smoker Yes 08/14/24 12:12 Duration of Surgery greater No 08/14/24 12:12 than 60 minutes Number of Risk Factors 2 08/14/24 12:12 PONV Score Moderate Risk 08/14/24 12:12 Height & Weight Height & Weight: Anesthesia: Height & Weight Height 5 ft 6 in 08/19/24 10:41 Weight: 76 kg 08/19/24 10:41 Body Mass Index (BMI) 27.0 08/19/24 10:41 Respiratory Assessment Respiratory Assessment - watch inspector final movement: Respiratory Tract Infection Hx - watch inspector final movement Hx Respiratory Tract Infection No 08/14/24 12:12 STOP Sleep Apnea STOP Sleep Apnea - watch inspector final movement: STOP Sleep Apnea - watch inspector final movement Hx Hypertension No 08/14/24 12:12 Hx Sleep Apnea No 08/14/24 12:12 CPAP BIPAP Do you snore loudly (louder No 08/14/24 12:12 than talking or can be heard Do you often feel tired/ No 08/14/24 12:12 fatigued/ sleepy during daytime? Has anyone observed you stop No 08/14/24 12:12 breathing during sleep? STOP Results Negative 08/14/24 12:12 QUESTION #5 FULL TEXT : Do you snore loudly (louder than talking or can be heard through closed doors)? Tobacco Use History Tobacco Use History - watch inspector final movement: Tobacco Use History - watch inspector final movement Tobacco Use Smoking Status Never smoker 08/14/24 12:12 Hx Tobacco Use No 08/14/24 12:12 Years Smoking Packs Smoked per Day Smoking Cessation Date was within the last 15 years Hx Smoking Cessation Date Hx Smoking Cessation Counseling Hematologic Medial History Hematologic Hx - watch inspector final movement: Hematologic Medical Hx - supervisor anodizing Hx of Blood Transfusion No 08/14/24 12:12 Hx of Transfusion in last 3 No 08/14/24 12:12 Months Date of Last Transfusion (if within last 3 months) Ever experience any problems No 08/14/24 12:12 with transfusion(s)? Specify any problems Hx of Preganancy in last 3 No 08/14/24 12:12 Months Nurse Filling Out Transfusion [email or web address] 08/14/24 12:12 & Questions: Date: 08/14/24 08/14/24 12:12 Time: 12:15 08/14/24 12:12 Patient unable to answer at this time (ie. confused, unrespo /Reproduction History /Reproductive History - watch inspector final movement: /Reproductive Hx- watch inspector final movement Hx Now No 08/14/24 12:12 Gestational Age (in weeks): EDC: Hx Hx Para Hx Section SAB Yes 08/14/24 12:12 Active Medications Active Medications: Current Medications Generic Name Dose Route Start Last Admin Trade Name Freq PRN Reason Stop Dose Admin Lactated Ringer's 1,000 mls @ 15 mls/hr 08/19/24 10:15 08/19/24 10:47 IV 15 mls/hr .Q48H LISSY Administration PFSH Medical History Adenoma of breast Thyroid disease Migraine headache History of Holter monitoring History of echocardiogram Cardiology follow-up encounter Vasovagal near syncope IBS (irritable bowel syndrome) GERD (gastroesophageal reflux disease) Diseases of the circulatory system complicating , unspecified trimester Supraventricular tachycardia, unspecified Supraventricular tachycardia during Heart palpitations History of kidney disease Hypothyroidism affecting Normal endoscopic ultrasound of upper gastrointestinal tract Seasonal allergies Supervision of high-risk Infertility associated with anovulation Home Medications ?Medication ?Instructions ?Recorded ?Last Taken ?Type L. crispatus, gasseri, jensenii, 2 tab PO DAILY 02/09/23 09/25/23 08:00 History rhamnosus 12 billion cell chew tablet (Culturelle Probiotic) docosahexaenoic acid 200 mg 200 mg PO DAILY 06/26/23 09/25/23 08:00 History capsule ( DHA) oxycodone 5 mg tablet 5 mg PO Q8H PRN pain 3 days #10 08/19/24 Unknown Rx tabs Allergy/AdvReac Type Severity Reaction Status Date / Time nitrofurantoin Allergy Severe difficulty Verified 08/19/24 10:40 breathing alprazolam AdvReac Intermediate PT UNSURE Verified 08/19/24 10:40 OF REACTION quetiapine AdvReac Intermediate PT UNSURE Verified 08/19/24 10:40 OF REACTION Family History Grandmother Colon cancer Diabetes Mother Diabetes Pancreatic cancer Surgical History Hx of tonsillectomy [place] teeth extracted History of tonsillectomy Social History adopted: No household members: spouse and children number of children: 2 current occupational status: unemployed current occupation: [employer] current occupational exposures/hazards: No pets and animals: Yes (NOT MANAGING LITTERBOX) pets and animals: cat(s), dog(s), horse(s) and farm animals history of recent travel: No sexually active: Yes Smoking Status: Never smoker alcohol intake: never substance use type: does not use diet: other well-balanced diet: daily or most days caffeine: No eating out: 1-3 times/week during the past year weight has: remained stable what type of physical activity do you participate in: weight training frequency: 5-6 times per week duration: 15-30 minutes/day gale/buddhism: Yarsanism seatbelt use: always do you feel safe at home: Yes additional social history: - LUKE Review of Systems (Anesthesia) ROS Narrative System reviewed and no additional complaints, except as documented.
--- NOTE | 2024-08-19 10:58 | PCM.PRE.AN2 ---
ASA Classification* ASA Classification ASA Classification: 2 Assessment & Plan Anesthesia* Anesthesia Assessment Anesthesia Assessment: Discussed sedation and/or anesthesia options, risks, benefits, and alternatives with patient/parents/legal guardian/POA. Questions invited. The patient/parents/legal guardian/POA seems to understand and agrees to proceed with anesthesia plan. Reviewed the physical assessment, medical history, allergy history and patient home medications list prior to surgery/procedure/anesthetic and documented any changes. Performed airway and anesthesia risk assessments. Anesthesia Type Anesthesia Type: MAC History Source History Obtained from:: Patient and Chart Anesthesia Focused Assessment* Temperature: 97.8 F Pulse Rate: 73 Blood Pressure: 123/73 Respiratory Rate: 16 Pulse Ox: 100 Oxygen Delivery Method: Room Air Airway Assessment Mouth opens: >3 cm Mallampati Score: IV Teeth Condition: Intact Neck Range of motion (ROM): Full ROM Labs Anesthesia Preop lab: CBC WBC 13.2 K/mm3 (4.4-11.0) H 09/26/23 04:00 09/26/23 RBC 4.73 M/mm3 (4.2-5.4) 09/26/23 04:00 09/26/23 Hgb 13.8 g/dL (12.0-15.0) 09/26/23 04:00 09/26/23 Hct 41.8 % (37-47) 09/26/23 04:00 09/26/23 Plt Count 132 K/mm3 (150-450) L 09/26/23 04:00 09/26/23 CHEMISTRY Potassium 3.7 mmol/L (3.5-5.1) 05/09/23 11:15 05/09/23 Sodium 136 mmol/L (136-145) 05/09/23 11:15 05/09/23 BUN 14 mg/dL (7-18) 05/09/23 11:15 05/09/23 Creatinine 0.56 mg/dL (0.55-1.02) 05/09/23 11:15 05/09/23 Glucose 85 mg/dL (74-106) 05/09/23 11:15 05/09/23 TSH 0.73 uIU/mL (0.358-3.74) 05/09/23 11:15 05/09/23 COAG Urine Test Negative Negative 08/19/24 10:15 08/19/24 Pre-Assessment Diagnosis/Proposed Procedure Planned Operative Procedure(s): LEFT BREAST LUMPECTOMY WITH ULTRASOUND Anesthesia History Anesthesia History - senior principal: Anesthesia History - senior principal Hx Hospitalization Yes: HAD BABY 10 MONTHS AGO 08/14/24 12:12 Any Problems With Anesthesia No 08/14/24 12:12 Cholinesterase deficiency No 08/14/24 12:12 You/Your Family Experience No 08/14/24 12:12 fever (hyperthermia) with Relationship Recent Exposure to Contagious No 08/19/24 10:41 Disease Does patient have nerve No 08/14/24 12:12 stimulator Patient instructed to have device shut off --Does patient have Pacemaker No 08/19/24 10:41 or ICD? When Was Last Pacemaker Check QUESTION #4 FULL TEXT: You/Your Family Experience fever (hyperthermia) with Anesthesia Last Oral Intake Last Oral intake: Last Oral Intake NPO since 21:00 08/19/24 10:41 Meds taken in AM with sips of No 08/19/24 10:41 water? 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 - senior principal: PONV - senior principal Female Yes 08/14/24 12:12 HX of Motion Sickness No 08/14/24 12:12 HX of N/V After Surgery No 08/14/24 12:12 Non-Smoker Yes 08/14/24 12:12 Duration of Surgery greater No 08/14/24 12:12 than 60 minutes Number of Risk Factors 2 08/14/24 12:12 PONV Score Moderate Risk 08/14/24 12:12 Height & Weight Height & Weight: Anesthesia: Height & Weight Height 5 ft 6 in 08/19/24 10:41 Weight: 76 kg 08/19/24 10:41 Body Mass Index (BMI) 27.0 08/19/24 10:41 Respiratory Assessment Respiratory Assessment - senior principal: Respiratory Tract Infection Hx - senior principal Hx Respiratory Tract Infection No 08/14/24 12:12 STOP Sleep Apnea STOP Sleep Apnea - senior principal: STOP Sleep Apnea - senior principal Hx Hypertension No 08/14/24 12:12 Hx Sleep Apnea No 08/14/24 12:12 CPAP BIPAP Do you snore loudly (louder No 08/14/24 12:12 than talking or can be heard Do you often feel tired/ No 08/14/24 12:12 fatigued/ sleepy during daytime? Has anyone observed you stop No 08/14/24 12:12 breathing during sleep? STOP Results Negative 08/14/24 12:12 QUESTION #5 FULL TEXT : Do you snore loudly (louder than talking or can be heard through closed doors)? Tobacco Use History Tobacco Use History - senior principal: Tobacco Use History - senior principal Tobacco Use Smoking Status Never smoker 08/14/24 12:12 Hx Tobacco Use No 08/14/24 12:12 Years Smoking Packs Smoked per Day Smoking Cessation Date was within the last 15 years Hx Smoking Cessation Date Hx Smoking Cessation Counseling Hematologic Medial History Hematologic Hx - senior principal: Hematologic Medical Hx - triple air valve tester Hx of Blood Transfusion No 08/14/24 12:12 Hx of Transfusion in last 3 No 08/14/24 12:12 Months Date of Last Transfusion (if within last 3 months) Ever experience any problems No 08/14/24 12:12 with transfusion(s)? Specify any problems Hx of Preganancy in last 3 No 08/14/24 12:12 Months Nurse Filling Out Transfusion [email or web address] 08/14/24 12:12 & Questions: Date: 08/14/24 08/14/24 12:12 Time: 12:15 08/14/24 12:12 Patient unable to answer at this time (ie. confused, unrespo /Reproduction History /Reproductive History - senior principal: /Reproductive Hx- senior principal Hx Now No 08/14/24 12:12 Gestational Age (in weeks): EDC: Hx Hx Para Hx Section SAB Yes 08/14/24 12:12 Active Medications Active Medications: Current Medications Generic Name Dose Route Start Last Admin Trade Name Freq PRN Reason Stop Dose Admin Lactated Ringer's 1,000 mls @ 15 mls/hr 08/19/24 10:15 08/19/24 10:47 IV 15 mls/hr .Q48H LISSY Administration PFSH Medical History Adenoma of breast Thyroid disease Migraine headache History of Holter monitoring History of echocardiogram Cardiology follow-up encounter Vasovagal near syncope IBS (irritable bowel syndrome) GERD (gastroesophageal reflux disease) Diseases of the circulatory system complicating , unspecified trimester Supraventricular tachycardia, unspecified Supraventricular tachycardia during Heart palpitations History of kidney disease Hypothyroidism affecting Normal endoscopic ultrasound of upper gastrointestinal tract Seasonal allergies Supervision of high-risk Infertility associated with anovulation Home Medications ?Medication ?Instructions ?Recorded ?Last Taken ?Type L. crispatus, gasseri, jensenii, 2 tab PO DAILY 02/09/23 09/25/23 08:00 History rhamnosus 12 billion cell chew tablet (Culturelle Probiotic) docosahexaenoic acid 200 mg 200 mg PO DAILY 06/26/23 09/25/23 08:00 History capsule ( DHA) oxycodone 5 mg tablet 5 mg PO Q8H PRN pain 3 days #10 08/19/24 Unknown Rx tabs Allergy/AdvReac Type Severity Reaction Status Date / Time nitrofurantoin Allergy Severe difficulty Verified 08/19/24 10:40 breathing alprazolam AdvReac Intermediate PT UNSURE Verified 08/19/24 10:40 OF REACTION quetiapine AdvReac Intermediate PT UNSURE Verified 08/19/24 10:40 OF REACTION Family History Grandmother Colon cancer Diabetes Mother Diabetes Pancreatic cancer Surgical History Hx of tonsillectomy [place] teeth extracted History of tonsillectomy Social History adopted: No household members: spouse and children number of children: 2 current occupational status: unemployed current occupation: [employer] current occupational exposures/hazards: No pets and animals: Yes (NOT MANAGING LITTERBOX) pets and animals: cat(s), dog(s), horse(s) and farm animals history of recent travel: No sexually active: Yes Smoking Status: Never smoker alcohol intake: never substance use type: does not use diet: other well-balanced diet: daily or most days caffeine: No eating out: 1-3 times/week during the past year weight has: remained stable what type of physical activity do you participate in: weight training frequency: 5-6 times per week duration: 15-30 minutes/day gale/lutheran: Yazidism seatbelt use: always do you feel safe at home: Yes additional social history: - LUKE Review of Systems (Anesthesia) ROS Narrative System reviewed and no additional complaints, except as documented.
--- NOTE | 2024-08-19 11:45 | BRBX_PTH ---
PATIENT: AQUILESMAY ARDEN [place] [facility] [place][id number] AGE/SX: 28/F ROOM: RE08/19/[address]: Dr. Mendez Del Toro MD : 1995 BED: DIS: 08/19/2024 SPEC #: [id number] RECD: 08/19/24 12:46 STATUS: YOEL REQ #: [id number] SHAHANA: 08/19/24 11:[address]: Mendez Del Toro DEPT: SURGICAL PATHOLOGY RECD BY: Waylon Fuller ENTERED: 08/19/24 14:58 SP TYPE: BREAST BX OTHR DR: Dr. Zachariah Rome DO Tissues: A - Left breast, NOS Procedures: Immunohistochemical Stains Surgery Specimen Level IV IHC Stain ADDITIONAL HEADER OPERATION: Breast, lumpectomy with ultrasound PRE-OP DIAGNOSIS: Left breast lump TISSUE SUBMITTED: A- Left breast lumpectomy Ischemic Time: 30 minute Fixation Time: 6 hours, 40 minutes MICROSCOPIC DIAGNOSIS A. Breast, left, lump, lumpectomy with ultrasound: - Adenoma with lactational features, benign. - IHC for CK5/6 and p40 support the histologic impression. MICROSCOPIC DESCRIPTION Slides are reviewed. All matched controls reacted appropriately. These tests were developed and their performance characteristics determined by [facility]. They may not have been cleared or approved by the U.S. Food and Drug Administration. The FDA has determined that such clearance or approval is not necessary.? The above immunohistochemical/dualISH?markers are reviewed by the Pathologist. GROSS DESCRIPTION A. Received fresh and subsequently placed in formalin labeled with the patient's name and date of . Designated as left breast lumpectomy is a 5.5 x 4.7 x 2.4 cm blair-pink to yellow lumpectomy, devoid of orientation. The external surfaces are inked black. The specimen is serially sectioned into 6 slices revealing predominantly blair-pink, rubbery and lobulated cut surfaces with focal hemorrhage and fibrosis. A definitive mass lesion is not grossly appreciated, however, a ribbon clip is identified within an area of fibrosis. Rod And Tube Straightener sections are submitted, 1 per slice, into 6 cassettes, to include the biopsy site in cassette A5: Cold ischemic time: 30 minutesFormalin fixation time: 6 hour, 40 minutes [place] 08/19/2024 CPT:[id number]
--- NOTE | 2024-08-19 11:45 | BRBX_PTH ---
PATIENT: AQUILESMAY ARDEN LOC: [facility] – [place] U#:[id number] AGE/SX: 28/F ROOM: RE08/19/[address]: Dr. Mendez Del Toro MD : 1995 BED: DIS: 08/19/2024 SPEC #: [id number] RECD: 08/19/24 12:46 STATUS: YOEL REQ #: [id number] SHAHANA: 08/19/24 11:[address]: Mendez Del Toro DEPT: SURGICAL PATHOLOGY RECD BY: Waylon Fuller ENTERED: 08/19/24 14:58 SP TYPE: BREAST BX OTHR DR: Dr. Zachariah Rome DO Tissues: A - Left breast, NOS Procedures: Immunohistochemical Stains Surgery Specimen Level IV IHC Stain ADDITIONAL HEADER OPERATION: Breast, lumpectomy with ultrasound PRE-OP DIAGNOSIS: Left breast lump TISSUE SUBMITTED: A- Left breast lumpectomy Ischemic Time: 30 minute Fixation Time: 6 hours, 40 minutes MICROSCOPIC DIAGNOSIS A. Breast, left, lump, lumpectomy with ultrasound: - Adenoma with lactational features, benign. - IHC for CK5/6 and p40 support the histologic impression. MICROSCOPIC DESCRIPTION Slides are reviewed. All matched controls reacted appropriately. These tests were developed and their performance characteristics determined by [facility]. They may not have been cleared or approved by the U.S. Food and Drug Administration. The FDA has determined that such clearance or approval is not necessary.? The above immunohistochemical/dualISH?markers are reviewed by the Pathologist. GROSS DESCRIPTION A. Received fresh and subsequently placed in formalin labeled with the patient's name and date of . Designated as left breast lumpectomy is a 5.5 x 4.7 x 2.4 cm blair-pink to yellow lumpectomy, devoid of orientation. The external surfaces are inked black. The specimen is serially sectioned into 6 slices revealing predominantly blair-pink, rubbery and lobulated cut surfaces with focal hemorrhage and fibrosis. A definitive mass lesion is not grossly appreciated, however, a ribbon clip is identified within an area of fibrosis. News Editor sections are submitted, 1 per slice, into 6 cassettes, to include the biopsy site in cassette A5: Cold ischemic time: 30 minutesFormalin fixation time: 6 hour, 40 minutes [place] 08/19/2024 CPT:[id number]
--- NOTE | 2024-08-19 11:46 | PCM.HP.STD ---
HPI - General General Date of Admission: 08/19/24 Date of Service: 08/19/24 Chief Complaint: left breast mass HPI Narrative MAY AQUILES, is a 28 F who presents for left breast lumpectomy [facility] Medical History Adenoma of breast Thyroid disease Migraine headache History of Holter monitoring History of echocardiogram Cardiology follow-up encounter Vasovagal near syncope IBS (irritable bowel syndrome) GERD (gastroesophageal reflux disease) Diseases of the circulatory system complicating , unspecified trimester Supraventricular tachycardia, unspecified Supraventricular tachycardia during Heart palpitations History of kidney disease Hypothyroidism affecting Normal endoscopic ultrasound of upper gastrointestinal tract Seasonal allergies Supervision of high-risk Infertility associated with anovulation Home Medications ?Medication ?Instructions ?Recorded ?Last Taken ?Type L. crispatus, gasseri, jensenii, 2 tab PO DAILY 02/09/23 09/25/23 08:00 History rhamnosus 12 billion cell chew tablet (Culturelle Probiotic) docosahexaenoic acid 200 mg 200 mg PO DAILY 06/26/23 09/25/23 08:00 History capsule ( DHA) Allergy/AdvReac Type Severity Reaction Status Date / Time nitrofurantoin Allergy Severe difficulty Verified 08/19/24 10:40 breathing alprazolam AdvReac Intermediate PT UNSURE Verified 08/19/24 10:40 OF REACTION quetiapine AdvReac Intermediate PT UNSURE Verified 08/19/24 10:40 OF REACTION Family History Grandmother Colon cancer Diabetes Mother Diabetes Pancreatic cancer Surgical History Hx of tonsillectomy [place] teeth extracted History of tonsillectomy Social History adopted: No household members: spouse and children number of children: 2 current occupational status: unemployed current occupation: [employer] current occupational exposures/hazards: No pets and animals: Yes (NOT MANAGING LITTERBOX) pets and animals: cat(s), dog(s), horse(s) and farm animals history of recent travel: No sexually active: Yes Smoking Status: Never smoker alcohol intake: never substance use type: does not use diet: other well-balanced diet: daily or most days caffeine: No eating out: 1-3 times/week during the past year weight has: remained stable what type of physical activity do you participate in: weight training frequency: 5-6 times per week duration: 15-30 minutes/day gale/oriental orthodox: Jew seatbelt use: always do you feel safe at home: Yes additional social history: - LUKE Vital Signs Vital Signs Vital Signs: 08/19/24 10:41 08/19/24 10:41 08/19/24 11:10 Temperature 97.8 F 97.8 F Temperature Source Temporal Pulse Rate 73 73 Respiratory Rate 16 16 Respiratory Pattern Normal Blood Pressure 123/73 H 123/73 H Blood Pressure Mean 89 Blood Pressure Source Monitor Blood Pressure Position Sitting Blood Pressure Location Right Arm Pulse Ox 100 100 Oxygen Delivery Method Room Air Room Air Weight Weight: 167 lb 8.821 oz Body Mass Index (BMI) 27.0 Physical Exam Const alert, oriented x3 and no apparent distress Results Lab / Micro Data Labs: Laboratory Results - last 24 hr 08/19/24 10:15: Urine Test Negative Assessment & Plan Assessment/Plan (1) Left breast lump: QUALIFIERS: Breast mass location: upper outer quadrant Qualified Code(s): N63.21 - Unspecified lump in the left breast, upper outer quadrant PLAN: Plan left breast lumpectomy with US
--- NOTE | 2024-08-19 11:46 | PCM.HP.STD ---
HPI - General General Date of Admission: 08/19/24 Date of Service: 08/19/24 Chief Complaint: left breast mass HPI Narrative MAY AQUILES, is a 28 F who presents for left breast lumpectomy [facility] Medical History Adenoma of breast Thyroid disease Migraine headache History of Holter monitoring History of echocardiogram Cardiology follow-up encounter Vasovagal near syncope IBS (irritable bowel syndrome) GERD (gastroesophageal reflux disease) Diseases of the circulatory system complicating , unspecified trimester Supraventricular tachycardia, unspecified Supraventricular tachycardia during Heart palpitations History of kidney disease Hypothyroidism affecting Normal endoscopic ultrasound of upper gastrointestinal tract Seasonal allergies Supervision of high-risk Infertility associated with anovulation Home Medications ?Medication ?Instructions ?Recorded ?Last Taken ?Type L. crispatus, gasseri, jensenii, 2 tab PO DAILY 02/09/23 09/25/23 08:00 History rhamnosus 12 billion cell chew tablet (Culturelle Probiotic) docosahexaenoic acid 200 mg 200 mg PO DAILY 06/26/23 09/25/23 08:00 History capsule ( DHA) Allergy/AdvReac Type Severity Reaction Status Date / Time nitrofurantoin Allergy Severe difficulty Verified 08/19/24 10:40 breathing alprazolam AdvReac Intermediate PT UNSURE Verified 08/19/24 10:40 OF REACTION quetiapine AdvReac Intermediate PT UNSURE Verified 08/19/24 10:40 OF REACTION Family History Grandmother Colon cancer Diabetes Mother Diabetes Pancreatic cancer Surgical History Hx of tonsillectomy [place] teeth extracted History of tonsillectomy Social History adopted: No household members: spouse and children number of children: 2 current occupational status: unemployed current occupation: [employer] current occupational exposures/hazards: No pets and animals: Yes (NOT MANAGING LITTERBOX) pets and animals: cat(s), dog(s), horse(s) and farm animals history of recent travel: No sexually active: Yes Smoking Status: Never smoker alcohol intake: never substance use type: does not use diet: other well-balanced diet: daily or most days caffeine: No eating out: 1-3 times/week during the past year weight has: remained stable what type of physical activity do you participate in: weight training frequency: 5-6 times per week duration: 15-30 minutes/day gale/adventist: Mormon seatbelt use: always do you feel safe at home: Yes additional social history: - [facility] Vital Signs Vital Signs Vital Signs: 08/19/24 10:41 08/19/24 10:41 08/19/24 11:10 Temperature 97.8 F 97.8 F Temperature Source Temporal Pulse Rate 73 73 Respiratory Rate 16 16 Respiratory Pattern Normal Blood Pressure 123/73 H 123/73 H Blood Pressure Mean 89 Blood Pressure Source Monitor Blood Pressure Position Sitting Blood Pressure Location Right Arm Pulse Ox 100 100 Oxygen Delivery Method Room Air Room Air Weight Weight: 167 lb 8.821 oz Body Mass Index (BMI) 27.0 Physical Exam Const alert, oriented x3 and no apparent distress Results Lab / Micro Data Labs: Laboratory Results - last 24 hr 08/19/24 10:15: Urine Test Negative Assessment & Plan Assessment/Plan (1) Left breast lump: QUALIFIERS: Breast mass location: upper outer quadrant Qualified Code(s): N63.21 - Unspecified lump in the left breast, upper outer quadrant PLAN: Plan left breast lumpectomy with US
--- NOTE | 2024-08-19 12:36 | BI_ITS ---
EXAM: BREAST BIOPSY SPECIMEN 08/19/2024 CLINICAL HISTORY: F, Age 28 y/o , TECHNIQUE: BREAST BIOPSY SPECIMEN COMPARISON: Prior exam(s) dated December 13, 2023.. FINDINGS: TISSUE DENSITY: The breast tissue is extremely dense which lowers the sensitivity of mammography. The specimen contains the tissue clip marker. BI/Breast Biopsy Specimen IMPRESSION: OVERALL FINAL ASSESSMENT: BIRADS 1 NEGATIVE. RECOMMENDATION: Routine annual follow-up in 1 Year A letter with findings and recommendations will be mailed to the patient. Reading Location: [id number]
--- NOTE | 2024-08-19 12:36 | BI_ITS ---
EXAM: BREAST BIOPSY SPECIMEN 08/19/2024 CLINICAL HISTORY: F, Age 28 y/o , TECHNIQUE: BREAST BIOPSY SPECIMEN COMPARISON: Prior exam(s) dated December 13, 2023.. FINDINGS: TISSUE DENSITY: The breast tissue is extremely dense which lowers the sensitivity of mammography. The specimen contains the tissue clip marker. BI/Breast Biopsy Specimen IMPRESSION: OVERALL FINAL ASSESSMENT: BIRADS 1 NEGATIVE. RECOMMENDATION: Routine annual follow-up in 1 Year A letter with findings and recommendations will be mailed to the patient. Reading Location: [id number]
[2024-08-19] MEDS: Bupiv/Epi 0.25% 30 ML Vial (12:43)
[2024-08-19] MEDS: Lidocaine 1% (20 ml mdv) 20 ML Vial (12:43)
--- NOTE | 2024-08-19 12:44 | EX.PCM.DISCH ---
Discharge Instructions Diet Discharge Diet: Light diet - advance as tolerated Activity Discharge Activity: Return to Normal Activity and May Shower May shower in (days): 1 Ice area for (Minutes): 30 Dressing / Incision Call your doctor if your incision/area has: Continuous Slow Oozing, Sudden Increased Bleeding, Increased Pain/ Swelling, Increased Redness, Foul Smelling Discharge and Swelling at the incision site Call your doctor if you observe: Fever of 101 or Higher Cleanse incision/area with: Soap & Water Follow Up Care Please Follow Up With: Mendez Del Toro MD When: 1 to 2 weeks. Please call office to schedule appointment Test Results: Test results from this visit will be discussed in further detail at your follow-up appointment, if applicable. Discharge Plan Admission Primary Reason for Your Visit: Left breast lumpectomy Attending Provider: Mendez Del Toro Primary Care Provider: Zachariah Rome Instructions Print Language: Upper Sorbian Discharge Orders/Prescriptions Prescriptions: New oxycodone 5 mg tablet 5 mg PO Q8H PRN (Reason: pain) 3 Days Qty: 10 0RF Continued DHA 200 mg capsule 200 mg PO DAILY Culturelle Probiotic 12 billion cell tablet,chewable 2 tab PO DAILY Referrals / Follow Up: Zachariah Rome DO [Primary Care Provider] - Disposition Disposition (needs filled in before D/C Order can be placed): Home, Self Care
--- NOTE | 2024-08-19 12:52 | OP.PCM_ITS ---
Problems Associated Problem List Diagnoses (1) Left breast lump: Operative Report (Standard) Operative Information Date of Procedure: 08/19/24 Pre-Operative Diagnosis: Left breast lump Post-Operative Diagnosis: Same Surgery/Procedure Performed: Left breast lumpectomy with ultrasound production operations engineer: Yes Computer Tester: Radha Hilliard Tasks completed by certified first assistant: Closing and Retracting Additional recycling assistant?: No Type of Anesthesia: Local and MAC RN Documented Start/Stop Times: Operation Date: 08/19/24 11:45 Case Time Into Pre-Op 08/19/24 10:14 Out of Pre-Op 08/19/24 11:50 Anesthesia Start 08/19/24 11:53 Into Room 08/19/24 11:53 Procedure Start 08/19/24 12:17 Procedure Start Time: 12:17 Select all DRAINS/GRAFTS/IMPLANTS that apply: None Special Medications: None Specimen collected: Yes Description of specimen(s) removed: Left breast tissue with marking clip Surgical Findings: See operative note Complications Complications: No Admit VTE Documentation VTE Present on Admission: Yes VTE Mechan Device Prophylaxis: SCD's VTE Pharm Prophylaxis ordered?: No Reason prophylaxis not ordered: Treatment Not Indicated
--- NOTE | 2024-08-19 12:52 | OP.PCM_ITS ---
Problems Associated Problem List Diagnoses (1) Left breast lump: Operative Report (Standard) Operative Information Date of Procedure: 08/19/24 Pre-Operative Diagnosis: Left breast lump Post-Operative Diagnosis: Same Surgery/Procedure Performed: Left breast lumpectomy with ultrasound plate worker helper: Yes Warp Tester: Radha Hilliard Tasks completed by pizza hut assistant: Closing and Retracting Additional biology laboratory assistant?: No Type of Anesthesia: Local and MAC RN Documented Start/Stop Times: Operation Date: 08/19/24 11:45 Case Time Into Pre-Op 08/19/24 10:14 Out of Pre-Op 08/19/24 11:50 Anesthesia Start 08/19/24 11:53 Into Room 08/19/24 11:53 Procedure Start 08/19/24 12:17 Procedure Start Time: 12:17 Select all DRAINS/GRAFTS/IMPLANTS that apply: None Special Medications: None Specimen collected: Yes Description of specimen(s) removed: Left breast tissue with marking clip Surgical Findings: See operative note Complications Complications: No Admit VTE Documentation VTE Present on Admission: Yes VTE Mechan Device Prophylaxis: SCD's VTE Pharm Prophylaxis ordered?: No Reason prophylaxis not ordered: Treatment Not Indicated
--- NOTE | 2024-08-19 12:52 | PCM.OPRPT ---
Problems Associated Problem List Diagnoses (1) Left breast lump: Procedures Integumentary 16xxx-193xx: [id number] Partial mastectomy Operative Report (Standard) Operative Information Date of Procedure: 08/19/24 Pre-Operative Diagnosis: Left breast lump Post-Operative Diagnosis: Same Surgery/Procedure Performed: Left breast lumpectomy with ultrasound transcript evaluator: Yes Ed Case Manager: Radha Hilliard Tasks completed by first beater: Closing and Retracting Additional social media assistant?: No Type of Anesthesia: Local and MAC RN Documented Start/Stop Times: Operation Date: 08/19/24 11:45 Case Time Into Pre-Op 08/19/24 10:14 Out of Pre-Op 08/19/24 11:50 Anesthesia Start 08/19/24 11:53 Into Room 08/19/24 11:53 Procedure Start 08/19/24 12:17 Procedure Start Time: 12:17 Procedure Stop Time: 12:50 Select all DRAINS/GRAFTS/IMPLANTS that apply: None Special Medications: None Estimated Blood Loss: Minimal Specimen collected: Yes Description of specimen(s) removed: Left breast tissue with marking clip Description of surgery: The patient is a 28-year-old female recently seen to the office earlier this year with a left breast lump. Mammograms seem to indicate possible fibroadenoma. A core biopsy was performed under ultrasound guidance in the office. 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 She initially wanted to observe however more recently she contacted our office wanting to have this excised. We discussed the details of the planned procedure and she wished to proceed. She was brought to the operating room today following informed consent. She was placed supine on the operative table with arms outstretched and arm boards. MAC anesthesia was induced. Once adequately sedated the area was prepped and draped in the usual sterile manner. Preoperatively, the lump was identified by the patient as well as myself. We marked this with a marking pen and that ultrasound was performed intraoperatively to confirm the lesion. Once adequately sedated local anesthetic was injected into the area. A #15 blade was then used to make the skin incision. Bovie electrocautery was then used dissect down through subcutaneous tissue. The region of tissue was removed. It was sent to radiology to be radiographed to confirm placement of the clip. The clip was clearly present. Hemostasis was excellent. The wound was then closed using 3-0 Vicryl and 4-0 Vicryl. Skin glue and an Kyle wrap were applied as dressing. She was awakened from anesthesia and taken recovery in good condition. Surgical Findings: See operative note Complications Complications: No Admit VTE Documentation VTE Present on Admission: Yes VTE Mechan Device Prophylaxis: SCD's VTE Pharm Prophylaxis ordered?: No Reason prophylaxis not ordered: Treatment Not Indicated
--- NOTE | 2024-08-19 12:52 | PCM.OPRPT ---
Problems Associated Problem List Diagnoses (1) Left breast lump: Procedures Integumentary 16xxx-193xx: [id number] Partial mastectomy Operative Report (Standard) Operative Information Date of Procedure: 08/19/24 Pre-Operative Diagnosis: Left breast lump Post-Operative Diagnosis: Same Surgery/Procedure Performed: Left breast lumpectomy with ultrasound refinery operator visbreaking: Yes Technical Lead: Radha Hilliard Tasks completed by international first officer: Closing and Retracting Additional funeral assistant?: No Type of Anesthesia: Local and MAC RN Documented Start/Stop Times: Operation Date: 08/19/24 11:45 Case Time Into Pre-Op 08/19/24 10:14 Out of Pre-Op 08/19/24 11:50 Anesthesia Start 08/19/24 11:53 Into Room 08/19/24 11:53 Procedure Start 08/19/24 12:17 Procedure Start Time: 12:17 Procedure Stop Time: 12:50 Select all DRAINS/GRAFTS/IMPLANTS that apply: None Special Medications: None Estimated Blood Loss: Minimal Specimen collected: Yes Description of specimen(s) removed: Left breast tissue with marking clip Description of surgery: The patient is a 28-year-old female recently seen to the office earlier this year with a left breast lump. Mammograms seem to indicate possible fibroadenoma. A core biopsy was performed under ultrasound guidance in the office. 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 She initially wanted to observe however more recently she contacted our office wanting to have this excised. We discussed the details of the planned procedure and she wished to proceed. She was brought to the operating room today following informed consent. She was placed supine on the operative table with arms outstretched and arm boards. MAC anesthesia was induced. Once adequately sedated the area was prepped and draped in the usual sterile manner. Preoperatively, the lump was identified by the patient as well as myself. We marked this with a marking pen and that ultrasound was performed intraoperatively to confirm the lesion. Once adequately sedated local anesthetic was injected into the area. A #15 blade was then used to make the skin incision. Bovie electrocautery was then used dissect down through subcutaneous tissue. The region of tissue was removed. It was sent to radiology to be radiographed to confirm placement of the clip. The clip was clearly present. Hemostasis was excellent. The wound was then closed using 3-0 Vicryl and 4-0 Vicryl. Skin glue and an Kyle wrap were applied as dressing. She was awakened from anesthesia and taken recovery in good condition. Surgical Findings: See operative note Complications Complications: No Admit VTE Documentation VTE Present on Admission: Yes VTE Mechan Device Prophylaxis: SCD's VTE Pharm Prophylaxis ordered?: No Reason prophylaxis not ordered: Treatment Not Indicated
--- NOTE | 2024-08-19 13:11 | PCM.POST.ANE ---
Anesthesia: Postop Eval I Current Vital Signs Temperature: 97.3 F Pulse Rate: 70 Blood Pressure: 107/57 Respiratory Rate: 16 Pulse Ox: 99 Oxygen Delivery Method: Room Air Assessment Airway patent: Yes Spontaneous unlabored respirations: Yes Mental status: Awake and Calm nausea: No Vomiting: No Anesthesia Complication: No Fluid Hydration Crystalloid volume administer (ml): 700 Total IV fluid infused: 700 Progress Note Anesthesia document: Postop Eval 1 completed: Yes
--- NOTE | 2024-08-19 19:13 | POSTOPAN2_ITS ---
Anesthesia Postop Eval I Sum Postop Eval Completion status Anesthesia document: Postop Eval 1 completed: Yes Anesthesia Postop Eval I Summary Anesthesia Postop Eval I Summary: Anesthesia Postop Eval I: Assessment Summary Airway patent Yes 08/19/24 13:11 VAMP [email or web address] Spontaneous unlabored Yes 08/19/24 13:11 VAMP [email or web address] respirations Mental status Awake,Calm 08/19/24 13:11 VAMP [email or web address] nausea No 08/19/24 13:11 VAMP LINER.GDOTT Vomiting No 08/19/24 13:11 VAMP [email or web address].[email or web address] Anesthesia Postop Eval I: Fluid Summary Crystalloid volume administer 700 08/19/24 13:11 VAMP [email or web address].GDOTT (ml) Colloids volume administered ( ml) Blood Product volume administered (ml) Total IV fluid infused 700 08/19/24 13:11 VAMP [email or web address].[email or web address] Anesthesia Postop Eval I: Summary Notes Anesthesia Complication No 08/19/24 13:11 VAMP [email or web address].[email or web address] Anesthesia Complication Comment: Post-operative progress note Anesthesia: Postop Eval II Evaluation Mental status: Awake and Calm Pain Level: 1 nausea: No Vomiting: No Complications Anesthesia Complication: No
--- NOTE | 2024-08-19 19:13 | POSTOPAN2_ITS ---
Anesthesia Postop Eval I Sum Postop Eval Completion status Anesthesia document: Postop Eval 1 completed: Yes Anesthesia Postop Eval I Summary Anesthesia Postop Eval I Summary: Anesthesia Postop Eval I: Assessment Summary Airway patent Yes 08/19/24 13:11 INFORMATICS PHARMACIST.[email or web address] Spontaneous unlabored Yes 08/19/24 13:11 INFORMATICS PHARMACIST.GDOTT respirations Mental status Awake,Calm 08/19/24 13:11 INFORMATICS PHARMACIST.GDOTT nausea No 08/19/24 13:11 INFORMATICS PHARMACIST.GDOTT Vomiting No 08/19/24 13:11 INFORMATICS PHARMACIST.GDOTT Anesthesia Postop Eval I: Fluid Summary Crystalloid volume administer 700 08/19/24 13:11 INFORMATICS PHARMACIST.GDOTT (ml) Colloids volume administered ( ml) Blood Product volume administered (ml) Total IV fluid infused 700 08/19/24 13:11 INFORMATICS PHARMACIST.GDOTT Anesthesia Postop Eval I: Summary Notes Anesthesia Complication No 08/19/24 13:11 INFORMATICS PHARMACIST.GDOTT Anesthesia Complication Comment: Post-operative progress note Anesthesia: Postop Eval II Evaluation Mental status: Awake and Calm Pain Level: 1 nausea: No Vomiting: No Complications Anesthesia Complication: No
--- NOTE | 2024-08-19 19:13 | PCM.POSTANE2 ---
Anesthesia Postop Eval I Sum Postop Eval Completion status Anesthesia document: Postop Eval 1 completed: Yes Anesthesia Postop Eval I Summary Anesthesia Postop Eval I Summary: Anesthesia Postop Eval I: Assessment Summary Airway patent Yes 08/19/24 13:11 ELEVATOR [email or web address].[email or web address] Spontaneous unlabored Yes 08/19/24 13:11 ELEVATOR SERVICEMAN.GDOTT respirations Mental status Awake,Calm 08/19/24 13:11 ELEVATOR SERVICEMAN.GDOTT nausea No 08/19/24 13:11 ELEVATOR SERVICEMAN.GDOTT Vomiting No 08/19/24 13:11 ELEVATOR SERVICEMAN.GDOTT Anesthesia Postop Eval I: Fluid Summary Crystalloid volume administer 700 08/19/24 13:11 ELEVATOR SERVICEMAN.GDOTT (ml) Colloids volume administered ( ml) Blood Product volume administered (ml) Total IV fluid infused 700 08/19/24 13:11 ELEVATOR SERVICEMAN.GDOTT Anesthesia Postop Eval I: Summary Notes Anesthesia Complication No 08/19/24 13:11 ELEVATOR SERVICEMAN.GDOTT Anesthesia Complication Comment: Post-operative progress note Anesthesia: Postop Eval II Evaluation Mental status: Awake and Calm Pain Level: 1 nausea: No Vomiting: No Complications Anesthesia Complication: No
--- NOTE | 2024-08-19 19:13 | PCM.POSTANE2 ---
Anesthesia Postop Eval I Sum Postop Eval Completion status Anesthesia document: Postop Eval 1 completed: Yes Anesthesia Postop Eval I Summary Anesthesia Postop Eval I Summary: Anesthesia Postop Eval I: Assessment Summary Airway patent Yes 08/19/24 13:11 FILTRATION SUPERVISOR.[email or web address] Spontaneous unlabored Yes 08/19/24 13:11 FILTRATION SUPERVISOR.GDOTT respirations Mental status Awake,Calm 08/19/24 13:11 FILTRATION SUPERVISOR.GDOTT nausea No 08/19/24 13:11 FILTRATION SUPERVISOR.GDOTT Vomiting No 08/19/24 13:11 FILTRATION SUPERVISOR.GDOTT Anesthesia Postop Eval I: Fluid Summary Crystalloid volume administer 700 08/19/24 13:11 FILTRATION SUPERVISOR.GDOTT (ml) Colloids volume administered ( ml) Blood Product volume administered (ml) Total IV fluid infused 700 08/19/24 13:11 FILTRATION SUPERVISOR.GDOTT Anesthesia Postop Eval I: Summary Notes Anesthesia Complication No 08/19/24 13:11 FILTRATION SUPERVISOR.GDOTT Anesthesia Complication Comment: Post-operative progress note Anesthesia: Postop Eval II Evaluation Mental status: Awake and Calm Pain Level: 1 nausea: No Vomiting: No Complications Anesthesia Complication: No
== END 2024-08-19 13:42 | disposition home or self-care (01) ==
LOC: SDC 10:06 → AC 10:07
PROVIDERS: Anesthesiology; PCP Family Medicine; Referring Provider Surgery; Visit Provider Surgery
PROC: (CPT 19301; principal; 2024-08-19 11:30)
DX: D24.2 Benign neoplasm of left breast (principal)
CPT/HCPCS: 19301; 19285; 00400; 76098; 81025; 88305; 88341; 88342; A4648; J2405

== ENCOUNTER → 2024-09-16 | Outpatient (CLI) | payer MEDICAID, SELFPAY ==
--- NOTE | 2024-09-16 13:32 | US_ITS ---
PROCEDURE: BREAST LIMITED UNILATERAL 09/16/2024 REASON FOR EXAM: 28-year-old female presents with left breast pain. The patient is recently status post left lumpectomy for a left breast mass. The patient is currently . COMPARISON: Ultrasound 12/13/2023. TECHNIQUE: BREAST LIMITED UNILATERAL FINDINGS: Ultrasound performed of the area of patient's skin discoloration demonstrates a large fluid collection entirely filling the left upper-outer quadrant from 12 o'clock to 4 o'clock measuring 10.4 x 10.3 x 3.4 cm. There are some internal septations. Also, there is some dilated ducts in the retroareolar region. There is a normal- appearing intramammary lymph node in the left breast at 3 o'clock 13 cm from the nipple. US/Breast Limited Unilateral IMPRESSION: Large fluid collection in the upper-outer left breast measuring 10.4 x 10.3 x 3 .4 cm, correlates to the patient's area of reported pain/skin discoloration. Consider aspiration or I and D for symptomat ic relief. BI-RADS 2: BENIGN RECOMMENDATION: OTHER. Clinical management is recommended. Reading Location: [id number]
== END | disposition home or self-care (01) ==
LOC: OPUS 13:31
PROVIDERS: PCP Family Medicine; Referring Provider Physician Assistant; Visit Provider Physician Assistant
DX: N63.21 Unspecified lump in the left breast, upper outer quadrant (principal)
CPT/HCPCS: 76642

== ENCOUNTER → 2024-11-06 | Outpatient (CLI) | payer MEDICAID, SELFPAY ==
--- NOTE | 2024-11-06 12:45 | US_ITS ---
PROCEDURE: PELVIC W/ TRANSVAGINAL N/A REASON FOR EXAM: PELVIC PAIN TECHNIQUE: Procedure Code: USPELTVAG Modality: US Procedure: PELVIC W/ TRANSVAGINAL COMPARISON: 02/14/2024 FINDINGS: Measurements: Uterus: Uterus is retroflexed and retroverted measuring 8.2 x 5.7 x 3.8 cm. Myometrium is homogeneous, no fibroid noted Endometrium: Normal thickness at 4 mm, endometrium is hyperechoic Right ovary: 5.6 x 3.5 x 2.1 cm Left ovary: 5.3 x 2.2 x 2.0 cm Neither ovary shows a suspicious mass, both ovaries demonstrate normal color flow Other: No free fluid, bladder distends normally US/Pelvic w/ Transvaginal IMPRESSION: No suspicious sonographic findings Reading Location: [id number]
--- NOTE | 2024-11-06 12:45 | US_ITS ---
PROCEDURE: PELVIC W/ TRANSVAGINAL N/A REASON FOR EXAM: PELVIC PAIN TECHNIQUE: Procedure Code: USPELTVAG Modality: US Procedure: PELVIC W/ TRANSVAGINAL COMPARISON: 02/14/2024 FINDINGS: Measurements: Uterus: Uterus is retroflexed and retroverted measuring 8.2 x 5.7 x 3.8 cm. Myometrium is homogeneous, no fibroid noted Endometrium: Normal thickness at 4 mm, endometrium is hyperechoic Right ovary: 5.6 x 3.5 x 2.1 cm Left ovary: 5.3 x 2.2 x 2.0 cm Neither ovary shows a suspicious mass, both ovaries demonstrate normal color flow Other: No free fluid, bladder distends normally US/Pelvic w/ Transvaginal IMPRESSION: No suspicious sonographic findings Reading Location: [id number]
== END | disposition home or self-care (01) ==
LOC: US 12:43
PROVIDERS: PCP Family Medicine; Referring Provider Obstetrics & Gynecology; Visit Provider Obstetrics & Gynecology
DX: R10.20 Pelvic and perineal pain unspecified side (principal)
CPT/HCPCS: 76830; 76856

== ENCOUNTER → 2024-11-10 | Outpatient (CLI) | payer MEDICAID, SELFPAY ==
[2024-11-10 17:24] LABS: Follicle Stimulating Hormone 5.6 mIU/mL
[2024-11-14 22:07] LABS: Anti-Mullerian Hormone,Serum 5.45 ng/mL (.)
== END | disposition home or self-care (01) ==
PROVIDERS: PCP Family Medicine; Visit Provider Obstetrics & Gynecology
DX: R10.20 Pelvic and perineal pain unspecified side (principal); N91.2 Amenorrhea, unspecified
CPT/HCPCS: 36415; 82670; 83001; 83002; 83516

== ENCOUNTER → 2025-01-21 | Outpatient (CLI) | payer MEDICAID, SELFPAY ==
--- NOTE | 2025-01-21 17:52 | STRESSREP ---
Stress Test Report Exercise stress test. Date Test Performed: 01/21/2025 29-year-old lady with a history of chest pain. Stress protocol: Resting EKG demonstrates normal sinus rhythm with a rate of 82 bpm resting blood pressure is 112/78 mmHg. The patient exercised according to the regular Álvaro protocol for a total duration of 9 minutes attaining a maximum heart rate of 171 bpm which was 90% of maximum predicted heart rate; the maximum workload was 10.4 metabolic equivalents. At rest, there were no ST or T wave changes noted and at peak exercise there were no ST changes to meet criteria for ischemia. No clinical angina was noted the test was terminated due to dyspnea. The peak blood pressure was 140/70 mmHg. Rate-pressure product was 23,900. Conclusion: Exercise stress test with no evidence of ischemia at a high workload. No arrhythmias noted.
== END | disposition home or self-care (01) ==
LOC: CVS 10:47
PROVIDERS: PCP Family Medicine; Referring Provider Nurse Practitioner Gerontology; Visit Provider Nurse Practitioner Gerontology
DX: R07.9 Chest pain, unspecified (principal)
CPT/HCPCS: 93017

== ENCOUNTER → 2025-01-27 | Outpatient (CLI) | payer MEDICAID, SELFPAY | END | disposition home or self-care (01) | LOC: SL 11:06 | PROVIDERS: PCP Family Medicine; Referring Provider Nurse Practitioner Gerontology; Visit Provider Nurse Practitioner Gerontology | DX: G47.10 Hypersomnia, unspecified (principal) | CPT/HCPCS: 95806 ==

== ENCOUNTER → 2025-01-28 | Outpatient (CLI) | payer MEDICAID, SELFPAY ==
--- NOTE | 2025-01-28 09:55 | US_ITS ---
PROCEDURE: BREAST LIMITED UNILATERAL 01/28/2025 REASON FOR EXAM: F, Age 29 y/o , LUMP/PAIN COMPARISON: 09/16/2024 TECHNIQUE: Procedure Code: USBRSTLIMIT Modality: US Procedure: BREAST LIMITED UNILATERAL FINDINGS: Sonographic evaluation of the left breast at 2 o'clock shows near-complete resolution of the previously described complex cystic fluid collection. It has decreased from 10.4 x 10.3 x 3.4 cm on the previous study to 2.1 x 3.6 x 0.5 cm on current study. Continued follow-up recommended to ensure complete resolution. No new suspicious mass or fluid collection No suspicious axillary adenopathy, there are physiologic axillary lymph nodes noted largest measures 1.6 x 1.0 x 0.5 cm. US/Breast Limited Unilateral IMPRESSION: Near-complete resolution of the previously noted complex cystic fluid collectio n in the upper-outer quadrant of the left breast. It has decreased in size from 10.4 x 10.3 x 3.4 cm to 2.1 x 3.6 x 0.5 cm. Cont inued follow-up recommended to ensure complete resolution No new suspicious shadowing solid lesion architectural distortion or suspicious calcifications BI-RADS 2: BENIGN RECOMMENDATION: OTHER follow-up ultrasound when clinically indicated Reading Location: [id number]
--- OUTSIDE RECORDS SUMMARY | 2025-01-28 10:19 | XMS RPT_ITS | CCD ---
Author Organization [facility] Care Team Providers Care Design Engineering Manager Name Role Phone REFERRING, TIKI ESPERANZA ID Unavailable Unavailable NGOC SUN Unavailable Unavailable LAWRENCE ROME Unavailable Unavailable MART HARMON Unavailable Unavailable LAWRENCE ROME Unavailable Unavailable LAWRENCE ROME Unavailable Unavailable ROSENDA, KINSEY Unavailable Unavailable LAWRENCE ROME Unavailable Unavailable LAWRENCE ROME Unavailable Unavailable LAWRENCE ROME Unavailable Unavailable ROSENDA, KINSEY Unavailable Unavailable LAWRENCE ROEM Unavailable Unavailable LAWRENCE ROME Unavailable Unavailable LAWRENCE ROME Unavailable Unavailable ROSENDA, KINSEY Unavailable Unavailable LAWRENCE ROME Unavailable Unavailable ROSENDA, KINSEY Unavailable Unavailable LAWRENCE ROME Unavailable Unavailable LAWRENCE ROME Unavailable Unavailable LAWRENCE ROME Unavailable Unavailable ROSENDA, KINSEY Unavailable Unavailable LAWRENCE ROME Unavailable Unavailable NGOC SUN Unavailable Unavailable LAWRENCE ROME Unavailable Unavailable NGOC SUN Unavailable Unavailable LAWRENCE ROME Unavailable Unavailable NGOC SUN Unavailable Unavailable LAWRENCE ROME Unavailable Unavailable Lawrence Rome Primary Care Provider Lawrence Rome Primary Care Provider [phone] Lawrence Rome Primary Care Provider [phone] Zachariah Rome DO Primary Care Provider Unavailable Primary Care Provider Unavailabl e Zachariah Rome DO Primary Care Provider Zachariah Rome DO Primary Care Provider Cathy Watson DO Unavailable Kojo Reis MD Unavailable Zachariah Rome DO Primary Care Provider Chato MD, Datinder Unavailable Chato ROSA, Datinder Unavailable Dr. Zachariah Rome Primary Care Provider Dr. Zachariah Rome Referring Provider Dr. Pretty Matos Attending Provider PRICILA Mc Attending Provider Dr. Zachariah Rome Referring Provider [phone] PRICILA Mc Attending Provider Dr. Pretty Matos Attending Provider [phone] Dr. Zachariah Rome Primary Care Provider Pierre PATIENT TRANSITION SPECIALIST, PATIENT TRANSITION SPECIALIST-C Natasha Attending Provider Cathy Watson DO Unavailable Victorina ROSA, Preti Unavailable Unavailable Primary Care Provider Unavailjennifer Rome MD, Lawrence Medeiros Primary Care Provider Dr. Zachariah Rome DO Primary Care Provi tere Dr. Zachariah Rome DO Referring Provider Dr. Lawrence Del Toro MD Attending Provider Dr. Lawrence Del Toro MD Referring Provider Dr. Lawrence Del Toro MD Other Provider NATHALIE NO Primary Care Unavailable REFERRED, SELF Referring Unavailable TAB CARMICHAEL Attending Unavailable Nancy Moss PA-C Attending Provider Nancy Moss PA-C Referring Provider IZABELLA SHAH Referring Unavailable ZACHARIAH ROME Primary Care Unavailable Vincent Mcdowell Attending Provider Zachariah Rome DO Primary Care Provider Dr. Zachariah Rome DO Primary Care Physi vinay Dr. Lawrence Del Toro MD Attending Physician Dr. Lawrence Del Toro MD Nurse Practitioner Nancy Moss PA-C Attending Physician Vincent Mcdowell Attending Physician Connie Yadav Attending Physician Connie Yadav Referring Provider [phone] Christian Josue DO, Dr. Olsen Attending Physician Dr. Pretty Matos DO Referring Provider LAWRENCE ROME Primary Care Unavailable SHERIF VALLEJO Referring UnaILEANA Guzman Attending Unavaila ble ROME, ZACHARIAH A Primary Care Unavailable ROME, ZACHARIAH A Primary Care Unavailable ROME, ZACHARIAH A Primary Care Unavailable SEBASTIAN DE LA CRUZ Unavailabl TING Moseley Attending Unavailable TING FREGOSO Admitting Unavailable ROME, ZACHARIAH Primary Care Unavailable LIANG COMBS Attending Unavailable ROME, ZACHARIAH Primary Care Unavailable SHANI KATE Attending Unavailable ZOE KRAUSE Referring Unavaila ble ROME, ZACHARIAH Primary Care Unavailable ZOE KRAUSE Attending Unavaila ble ROME, ZACHARIAH Primary Care Unavailable TEETEE ALEMAN Attending Unavailable MARTINEZ DANIELLE Attending Unavailable ROME, ZACHARIAH Primary Care Unavailable NIXON FREEMAN Attending Unavailable ROME, ZACHARIAH Primary Care Unavailable KRISTEN BOOKER Attending Unavailable ROME, ZACHARIAH Primary Care Unavailable JUNG DICKENS Attending Unavailable ROME, ZACHARIAH Primary Care Unavailable SHERIF SHAH Referring Unavailable SHERIF SHAH Attending Unavailable ROME, ZACHARIAH Primary Care Unavailable SOLANGE CORCORAN Attending Unavailable ELVIA, LIANG Referring Unavailable ROME, ZACHARIAH Primary Care Unavailable TERESA MCKEON Referring Unavailable ROME, ZACHARIAH Primary Care Unavailable TERESA MCKEON Attending Unavailable SHERIF SHAH Referring Unavailable ROME, ZACHARIAH Primary Care Unavailable SHERIF SHAH Attending Unavailable TERESA MCKEON Referring Unavailable TERESA MCKEON Attending Unavailable ROME, ZACHARIAH Primary Care Unavailable LAWRENCE HOFFMANN Attending Unavailable LAWRENCE HOFFMANN Admitting Unavailable SHANI SY Consulting Unavailable ROME, ZACHARIAH Primary Care Unavailable ROME, ZACHARIAH Primary Care Unavailable KRISTEN BOOKER Attending Unavailable LAWRENCE HOFFMANN Attending Unavailable LAWRENCE HOFFMANN Admitting Unavailable ROME, ZACHARIAH Primary Care Unavailable ROME, ZACHARIAH Primary Care Unavailable BOSTON CORTEZ Attending Unavailable ROME, ZACHARIAH Referring Unavailable ROME, ZACHARIAH Primary Care Unavailable ROME, ZACHARIAH Referring Unavailable ROME, ZACHARIAH Attending Unavailable SOLANGE CORCORAN Referring Unavailable SOLANGE CORCORAN Attending Unavailable ROME, ZACHARIAH Primary Care Unavailable JAMAL ALMAGUER Attending Unavailable ROME, ZACHARIAH Primary Care Unavailable ORME, ZACHARIAH Primary Care Unavailable ROME, ZACHARIAH Attending Unavailable ROME, ZACHARIAH Referring Unavailable VICTORINA, PRETI Referring Unavailable ROME, ZACHARIAH Primary Care Unavailable VICTORINA, PRETI Attending Unavailable ROME, ZACHARIAH Attending Unavailable ROME, ZACHARIAH Primary Care Unavailable VICTORINA, PRETI Referring Unavailable VICTORINA, PRETI Attending Unavailable ROME, ZACHARIAH Primary Care Unavailable ROME, ZACHARIAH Primary Care Unavailable MESHA KELLEY Attending Unavailable JUSTINOAYAH FOSTERSSICA Attending Unavailable ROME, ZACHARIAH Primary Care Unavailable ROME, ZACHARIAH Primary Care Unavailable BOSTON CORTEZ Attending Unavailable ROME, ZACHARIAH Primary Care Unavailable JUSTINO TERESA Attending Unavailable ROME, ZACHARIAH Attending Unavailable ROME, ZACHARIAH Primary Care Unavailable ROME, ZACHARIAH Attending Unavailable ROME, ZACHARIAH Primary Care Unavailable ROME, ZACHARIAH Referring Unavailable NESHEIM, NIXON G Referring Unavailable ROME, ZACHARIAH Primary Care Unavailable JUSTINO, TERESA Referring Unavailable JUSTINO, TERESA Attending Unavailable ROME, ZACHARIAH Primary Care Unavailable ROME, ZACHARIAH Primary Care Unavailable JAMAL ALMAGUER Attending Unavailable Ngoc Hawkins Referring Unavailable Ngoc Hawkins Attending Unavailable Rome, Zachariah Mateo Primary Care Unavailab Nancy Messina Referring Unavailable Nancy Velasco Attending Unavailable Rome, Zachariah Mateo Primary Care Unavailab Lawrence Medina Attending Unavailable Rome, Zachariah Mateo Primary Care Unavailab le Rome, Zachariah Mateo Referring Unavailab le Rome, Zachariah Mateo Primary Care Unavailab Pretty Mcmahon Referring Unavailabl e Vande Joselo, Pretty Attending Unavailabl e Christian Josue, Pretty Attending Unavailabl Zachariah Arteaga [facility] Unavailab le Vande Joselo, Pretty Referring Unavailabl e Vande Joselo, Pretty Attending Unavailabl Zachariah Arteaga [facility] Unavailab le Alverto, Lawrence Guerrero Referring Unavailable Lawrence Del Toro Attending Unavailable Zachariah Rome [facility] Unavailab le Mesha Kelley Attending Unavailable Zachariah Rome [facility] Unavailab Zachariah Dahl Referring Unavailab Lawrence Medina Attending Unavailable Zachariah Rome [facility] Unavailab Zachariah Dahl Referring Unavailab le Avlerto, Lawrence Guerrero Attending Unavailable Zachariah Rome [facility] Unavailab Zachariah Dahl Referring Unavailab le Vincent Ledesma Referring Unavailable Vincent Ledesma Attending Unavailable Zachariah Rome [facility] Unavailab Zachariah Dahl [facility] Unavailab raquel Catalan PATIENT TRANSITION SPECIALIST, Connie Referring Unavailable Hossein PATIENT TRANSITION SPECIALIST, Connie Attending Unavailable Lawrence Del Toro Attending Unavailable Zachariah Rome Referring Unavailab Zachariah Dahl [facility] Unavailab Zachariah Dahl [facility] Unavailab Zachariah Dahl Referring Unavailab raquel Catalan PATIENT TRANSITION SPECIALIST, Connie Attending Unavailable Lawrence Del Toro Attending Unavailable Zachariah Rome [facility] Unavailab Zachariah Dahl Referring Unavailab le Christian Josue, Pretty Attending UnavailZachariah Bull [facility] Unavailab Zachariah Dahl Referring Unavailab le Mesha Kelley Attending Unavailable Mesha Kelley Consulting Unavailable Zachariah Rome [facility] Unavailab Zachariah Dahl Referring Unavailab le Lawrence Del Toro Consulting Unavailable Lawrence Del Toro Referring Unavailable Lawrence Del Toro Attending Unavailable Zachariah Rome [facility] Unavailab Zachariah Dahl Primary Care Unavailab Zachariah Dahl Referring Unavailab Vincent Garza Attending Unavailable Zachariah Rome [facility] Unavailab Zachariah Dahl Referring Unavailab Ngoc Deluca Attending Unavailable Pretty Matos Attending Unavailabl e Zachariah Rome Primary Care Unavailab Zachariah Dahl Referring Unavailab Zachariah Dahl Referring Unavailab Vincent Garza Attending Unavailable Zachariah Rome Primary Care Unavailab le TARIQ SINGLETON Referring Unavailable ZACHARIAH ROME Primary Care Unavailable TARIQ SINGLETON Attending Unavailable ZACHARIAH ROME Primary Care Unavailable ELIZABET ONEILL Attending Unavailable TARIQ SINGLETON Referring Unavailable ZACHARIAH ROME Primary Care Unavailable MARIE MATHIS Attending Unavailable ZACHARIAH ROME Primary Care Unavailable CARISA RODRIGUEZ Attending Unavailable ZACHARIAH ROME Primary Care Unavailable DANYA PUGH Attending Unavailable LAWRENCE ROME Primary Care Unavailable TARIQ SINGLETON Attending Unavailable LAWRENCE ROME Primary Care Unavailable Allergies Allergy Classification Reported Allergen(s) Allergy Type Date of Onset Reaction(s) Facility Benzodiazepines (2 sources) ALPRAZolam Drug Allergy 05-03-19 19 Other (See Comments[facility] (2 sources) QUEtiapine Drug Allergy 05-03-19 19 Other (See Comments) [facility] (20 sources) ALPRAZolam; Translations: [ALPRAZOLAM] Drug Allergy 05-03-19 19 Other (See Comments), Unknown [place], [place] (11 sources) QUEtiapine; Translations: [QUETIAPINE FUMARATE] Drug Allergy 05-03-19 19 Other (See Comments), Unknown [place], [place] (20 sources) Alprazolam Allergy to substance 05-03-19 19 Unknown [facility] (20 sources) QUEtiapine Drug Allergy 05-03-19 19 Other [facility] (20 sources) Nitrofurantoin Drug Allergy 07-29-19 23 difficulty breathing [facility] (1 source) ALPRAZolam Drug Allergy 11-11-19 [facility] (1 source) Nitrofurantoin Drug Allergy 11-11-19 [facility] (1 source) QUEtiapine Drug Allergy 11-11-19 [facility] Medications Current Medications Medication Drug Class(es) Dates Sig (Normalized) Sig (Original) aluminum hydroxide 80 mg/ml / magnesium hydroxide 80 mg/ml / simethicone 8 mg/ml oral suspension (8 sources) Start: End: take 10 mL by mouth every six hours as needed for gastroesophageal reflux disease aluminum-magnesium hydroxide-simethic one (Maalox MAX) 400-400-40 MG/5ML suspension Take 10 mL by mouth every 6 hours as needed for indigestion or heartburn for up to 10 days. 100 mL 12/07/2024 12/17/2024 Active benzocaine 200 mg/ml / menthol 5 mg/ml topical spray (1 source) Standardized Chemical Allergen Start: 1 Topical, PRN, Pain, Starting on Sun09/15/20 at 1750 Apply to perineal area. Patient is capable and may self administer at bedside. 24 hr desvenlafaxine succinate 50 mg extended release oral tablet (1 source) Serotonin and Norepinephrine Reuptake Inhibitor Start: End: 5 take 1 tablet by mouth once daily desvenlafaxine ER (PRISTIQ) 50 mg 24 hr tablet Take 1 tablet by mouth once daily. 30 tablet 1 10/11/2024 12/10/2024 Active docusate sodium 100 mg oral capsule (2 sources) Start: 1 take 1 capsule by mouth twice daily docusate sodium (COLACE) 100 MG capsule Indications: Hard stool Take 1 capsule by mouth 2 times daily 60 capsule 1 11/11/2020 Active Start: 09-15-2020 take 100 mg by mouth twice daily as needed for constipation 100 mg, Oral, 2 TIMES DAILY PRN, Constipation, Starting on Sun09/15/20 at 1750 Do not crush or break. hydrOXYzine hydrochloride 10 mg oral tablet (20 sources) Antihistamine Start: 12-16-2024 take 1 tablet by mouth at bedtime for pain hydrOXYzine HCl (Atarax) 10 MG tablet Take 1 PO at bedtime for bladder pain 30 tablet 3 12/16/2024 Active Start: 10-05-2024 take 25 mg by mouth once 25 mg , Oral, Once, On 10/05/24 at 1920, For 1 dose Start: 10-05-2024 End: 10-29-2024 take 1 capsule by mouth every six hours as needed for anxiety hydrOXYzine pamoate (Vistaril) 25 MG capsule Take 1 capsule (25 mg) by mouth every 6 hours as needed for anxiety for up to 10 days. 30 capsule 10/05/2024 10/28/2024 Discontinued (Therapy completed) ibuprofen 600 mg oral tablet (3 sources) Nonsteroidal Anti-inflammatory Drug Start: 09-15-2020 take 1 tablet by mouth every six hours as needed for pain ibuprofen (ADVIL;MOTRIN) 600 MG tablet Take 1 tablet by mouth every 6 hours as needed for Pain 60 tablet 0 09/17/2020 Active Start: 09-14-2020 take 600 mg by mouth once 600 mg, Oral, ONCE, On Sun09/14/20 at 1245, For 1 dose IMMEDIATE . Do not crush or chew. DO NOT GIVE IBUPROFEN PRIOR TO DELIVERY. Post Delivery L.Michaellet,Jamiseri,Disla,Rha mn (Culturelle Probiotic) 12 billion cell tablet,chewable (15 sources) Start: 10-15-2024 Start: 10-15-2024 L.Crispat,Rodney rubin,Disla,Rhamn (Culturelle Probiotic) 12 billion cell tablet,chewable Active 2 {tbl} PO DAILY as needed October 15, 2024 9:00am Start: 02-09-2023 End: 10-15-2024 L.Michaellet,Jamiseri,Disla,Rha mn (Culturelle Probiotic) 12 billion cell tablet,chewable Discontinued 2 {tbl} PO DAILY February 09, 2023 1:00am October 15, 2024 9:00am Start: 02-09-2023 L.Crispat,Rodney rubin,Disla,Rhamn (Culturelle Probiotic) 12 billion cell tablet,chewable Active 2 {tbl} PO DAILY February 09, 2023 1:00am Start: 02-09-2023 L.Crispat,Rodney rubin,Disla,Rhamn (Culturelle Probiotic) 12 billion cell tablet,chewable Active TABLET PO February 09, 2023 1:00am Start: 02-09-2023 L.Crispat,Rodney rubin,Disla,Rhamn (Culturelle Probiotic) 12 billion cell tablet,chewable Active TABLET PO February 09, 2023 12:00am lanolin 1000 mg/ml topical cream (1 source) Start: 08-11-2021 Topical, PRN, Dry Skin, nipple discomfort, Starting on Sun09/15/20 at 1750, 24 hr metoprolol succinate 25 mg extended release oral tablet (20 sources) beta-Adrenergic Yeyo Start: 12-03-2024 End: 06-01-2025 take 1 tablet by mouth once daily metoprolol succinate XL (Toprol-XL) 25 MG 24 hr tablet Take 1 tablet (25 mg) by mouth daily. Do not crush or chew. 30 tablet 5 12/03/2024 06/01/2025 Active Start: 10-28-2024 End: 10-29-2024 take 5 mg intravenously every six hours as needed 5 mg, IntraVENous, Every 6 hours PRN, tachycardia, Starting on Sun10/28/24 at 1751, HR > 120 Start: 10-27-2024 End: 10-27-2024 take 12.5 mg by mouth once 12.5 mg, Oral, Once, On Sun10/27/24 at 0220, For 1 dose Start: 10-14-2024 End: 11-12-2024 metoprolol succinate XL (Toprol-XL) 25 MG 24 hr tablet 0.5 tablets Nightly. 10/14/2024 11/12/2024 Discontinued Start: 10-14-2024 End: 11-10-2024 take 1 tablet by mouth once daily Metoprolol Succinate 25 mg tablet extended release 24 hr Discontinued 25 mg PO daily October 27, 2024 12:00am November 10, 2024 2:17pm 12.5 mg Start: 10-14-2024 End: 10-29-2024 metoprolol succinate XL (Toprol-XL) 25 MG 24 hr tablet 0.5 tablets Nightly. 10/14/2024 Active pantoprazole 20 mg delayed release oral tablet (20 sources) Proton Pump Inhibitor Start: 12-07-2024 End: 12-27-2024 take 2 tablets by mouth once daily pantoprazole (ProtoNix) 20 MG EC tablet Take 2 tablets (40 mg) by mouth daily for 20 days. Do not crush, chew, or split. 40 tablet 12/07/2024 12/27/2024 Active Start: 12-03-2024 End: 12-12-2024 take 20 mg by mouth once daily before breakfast 20 mg, Oral, Daily before breakfast, First dose on Sun12/03/24 at 0630, Do not crush, chew, or split. Start: 11-10-2024 take 1 tablet by mouth once da daniel no115/iron/folic acid ( 19 ORAL) (5 sources) take 1 tablet by mouth once daily no115/iron/folic acid ( 19 ORAL) Take 1 tablet by mouth once daily. Active Probiotic Product (PROBIOTIC-10 PO) (2 sources) take 1 tablet by mouth once daily Probiotic Product (PROBIOTIC-10 PO) Take 1 tablet by mouth daily 0 Active propranolol hydrochloride 10 mg oral tablet (2 sources) beta-Adrenergic Yeyo Start: 12-10-19 propranolol (Inderal) 10 MG tablet every 12 hours. 12/09/2024 Active sertraline 25 mg oral tablet (20 sources) Serotonin Reuptake Inhibitor Start: 10-28-19 End: 11-13-19 take 1 tablet by mouth once daily Start: 10-24-2024 End: 10-28-2024 take 1 tablet by mouth every twenty-four hours sertraline (Zoloft) 25 MG tablet Take 25 mg by mouth Every 24 hours. 10/24/2024 10/28/2024 Discontinued simethicone 80 mg chewable tablet (1 source) Start: 09-15-2020 take 80 mg by mouth every six hours as needed 80 mg, Oral, EVERY 6 HOURS PRN, Cramping, Flatulence, Starting on Sun09/15/20 at 1750, witch oni 500 mg/ml medicated pad (1 source) Start: 09-15-2020 Topical, PRN, Hemorrhoids, For perineal pain or discomfort, Starting on Sun09/15/20 at 1750 Apply to perineal area. Patient is capable and may self administer at bedside. Completed/Discontinued Medications Medication Drug Class(es) Dates Sig (Normalized) Sig (Original) Acetaminophen (10 sources) Start: 12-03-2024 End: 12-03-2024 take 1 tablet by mouth every six hours as needed for pain and fever acetaminophen (Tylenol) tablet 650 mg Start: 11-23-2024 End: 11-23-2024 650 mg, Oral, Once, On Sun at 0855, For 1 dose, Maximum dose of acetaminophen is 4000 mg from all sources in 24 hours. Start: 11-14-2024 End: 11-14-2024 650 mg, Oral, Once, On Sun at 0335, For 1 dose, Maximum dose of acetaminophen is 4000 mg from all sources in 24 hours. Start: 10-29-2024 End: 10-29-2024 take 1 tablet by mouth every six hours as needed for pain and fever and pain and pain acetaminophen (Tylenol) tablet 650 mg Start: 09-15-2020 take 650 mg by mouth every six hours, then take 4000 mg by mouth every twenty-four hours 650 mg, Oral, EVERY 6 HOURS, First dose on Sun09/15/20 at 1815 Maximum dose of acetaminophen is 4000 mg from all sources in 24 hours. Start: 09-14-2020 End: 09-15-2020 take 650 mg by mouth every four hours as needed for pain, then take 4000 mg by mouth every twenty-four hours as needed for pain 650 mg, Oral, EVERY 4 HOURS PRN, Pain Mild (1-3), Fever, Fever >100.5 F (38 C), Starting on Sun09/14/20 at 1227 Maximum dose of acetaminophen is 4000 mg from all sources in 24 hours. Labor and Delivery aspirin 81 mg chewable tablet (2 sources) Platelet Aggregation Inhibitor, Nonsteroidal Anti-inflammatory Drug Start: 10-28-2024 End: 10-28-2024 take 324 mg by mouth once 324 mg, Oral, Once, On Sun10/28/24 at 0755, For 1 dose 5 ml atropine sulfate 0.1 mg/ml prefilled syringe (2 sources) Anticholinergic, Cholinergic Muscarinic Antagonist Start: 11-27-2024 End: 11-28-2024 0.5 mg, IntraVENous, PRN, stress test rescue medication, Starting on Sun11/27/24 at 0914, For 4 doses, CV Procedural Medications, FOR USE IN CARDIAC STRESS LAB ONLY. Administer 0.5 mg every 3 minutes up to 2 mg busPIRone hydrochloride 5 mg oral tablet (17 sources) Start: 12-03-2024 End: 12-03-2024 take 7.5 mg by mouth three times daily 7.5 mg, Oral, 3 times daily, First dose on Sun12/03/24 at 0900 Start: 11-13-2024 take 1 tablet by three times daily busPIRone (Buspar) 7.5 MG tablet Take 7.5 mg by mouth 3 times daily. 11/13/2024 Active Start: 10-11-2024 End: 11-10-2024 take 1 tablet by mouth twice daily Buspirone 7.5 mg tablet Discontinued 7.5 mg PO TWICE A DAY October 15, 2024 12:00am October 27, 2024 1:39pm calcium chloride 0.0014 meq/ ml / potassium chloride 0.004 meq/ml / sodium chloride 0.103 meq/ml / sodium lactate 0.028 meq/ml injectable solution (3 sources) Start: 11-23-2024 End: 11-23-2024 2,000 mL, IntraVENous, at 1, 000 mL/hr, Administer over 2 Hours, Once, On 11/23/24 at 0855, For 1 dose Start: 09-14-2020 End: 09-15-2020 Intravenous, at 125 mL/hr, C ONTINUOUS, Starting on Sun09/14/20 at 1245, Labor and Delivery cephalexin 500 mg oral capsule (15 sources) Cephalosporin Antibacterial Start: 10-05-2024 End: 10-05-2024 take 500 mg by mouth once 500 mg, Oral, Once, On 10/05/24 at 2150, For 1 dose, Suspected Indication (Select all that apply): Skin and Soft Tissue Infection Start: 10-05-2024 End: 10-28-2024 take 1 capsule by mouth four times daily cephalexin (Keflex) 250 MG capsule Take 1 capsule (250 mg) by mouth 4 times daily for 10 days. 40 capsule 10/05/2024 10/28/2024 Discontinued (Therapy completed) Desiccated Beef Liver powder (20 sources) End: 11-21-2022 Desiccated Beef Liver powder Desiccated Beef Liver powder docosahexaenoic acid 200 mg oral capsule (20 sources) Start: 07-28-2022 End: 10-15-2024 take 1 capsule by mouth once daily Docosahexaenoic Acid ( Dha) 200 mg capsule Discontinued 200 mg PO DAILY June 26, 2023 9:32am October 15, 2024 9:00am 0.4 ml enoxaparin sodium 100 mg/ml prefilled syringe (2 sources) Low Molecular Weight Heparin Start: 12-03-2024 End: 12-03-2024 inject 40 mg by subcutaneous injection every twenty-four hours 40 mg, SubCUTAneous, Every 24 hours scheduled (Daily), First dose (after last reorder) on Sun12/03/24 at 0900, Dosage or interval has been adjusted per P&T Renal Dosing policy. , Indication of Use: Prophylaxis-DVT/PE, Indications: Prophylaxis of Venous Thromboembolism famotidine (Pepcid) 20 mg in sodium chloride (PF) 0.9 % 10 mL injection (2 sources) Start: 12-08-2024 End: 12-08-2024 20 mg, IntraVENous, Administer over 2 Minutes, Once, On Sun12/08/24 at 0225, For 1 dose, IV Push over minimum of 2 minutes - Dilute with 10 mL NS gabapentin 300 mg oral capsule (15 sources) Anti-epileptic Agent Start: 10-29-2024 End: 12-28-2024 take 1 capsule by mouth twice daily as needed for anxiety gabapentin (Neurontin) 300 MG capsule Take 1 capsule (300 mg) by mouth 2 times daily as needed (anxiety, 1st line). 120 capsule 10/29/2024 11/12/2024 Discontinued iopamidol (Isovue-370) 76 % injection 75 mL (6 sources) Start: 12-08-2024 End: 12-08-2024 take 75 mL intravenously once as needed 75 mL, IntraVENous, IMG once PRN, contrast, Starting on Sun12/08/24 at 0340, For 1 dose Start: 10-31-2024 End: 10-31-2024 take 75 mL intravenously once as needed 75 mL, IntraVENous, IMG once PRN, contrast, Starting on Sun10/31/24 at 0055, For 1 dose Start: 10-05-2024 End: 10-05-2024 take 75 mL intravenously once as needed 75 mL, IntraVENous, IMG once PRN, contrast, Starting on Sun10/05/24 at 1725, For 1 dose Iron (11 sources) Start: 02-09-2023 End: 11-05-2023 Pnv No.[id number] No.10 (Pnv Tabs 20-1) 20 mg iron- 1 mg tablet Discontinued {tbl} PO February 09, 2023 1:00am November 05, 2023 11:07am Start: 02-09-2023 Pnv No.163-Iro n-Folate No.10 (Pnv Tabs 20-1) 20 mg iron- 1 mg tablet Active TABLET PO February 09, 2023 1:00am Start: 02-09-2023 Pnv No.163-Iro n-Folate No.10 (Pnv Tabs 20-1) 20 mg iron- 1 mg tablet Active TABLET PO February 09, 2023 12:00am 1 ml LORazepam 2 mg/ml injection (2 sources) Benzodiazepine Start: 10-30-2024 End: 10-30-2024 1 mg, IntraVENous, Once, On Anna 10/30/24 at 2305, For 1 dose, For IV doses dilute dose with 1ml NS. Magnesium (20 sources) Start: 03-31-2024 End: 08-14-2024 take 1 tablet by mouth once daily Magnesium 200 mg tablet Discontinued 200 mg PO DAILY March 31, 2024 1:00am August 14, 2024 12:11pm Start: 03-31-2024 take 1 tablet by javad th once daily Magnesium 200 mg tablet Active 200 mg PO DAILY March 31, 2024 1:00am End: 10-28-2024 Magnesium 300 MG capsule Catracho e by mouth. 10/28/2024 Discontinued Magnesium 300 MG capsule Take by mouth. Active 2 ml midazolam 1 mg/ml injection (1 source) Benzodiazepine Start: 05-10-2019 End: 05-10-2019 midazolam (VERSED) injection 1 mg miSOPROStol (CYTOTEC) pre-split tablet TABS 25 mcg (1 source) Start: 09-14-2020 End: 09-15-2020 miSOPROStol (CYTOTEC) pre-split tablet TABS 25 mcg nitroglycerin 0.4 mg sublingual tablet (4 sources) Nitrate Vasodilator Start: 11-27-2024 End: 11-28-2024 0.4 mg, SubLINGual, Every 5 min PRN, chest pain, Starting on Anna 11/27/24 at 0914, For 3 doses, CV Procedural Medications, FOR USE IN CARDIAC STRESS LAB ONLY. Administer every 5 minutes for 3 doses in 15 minutes as needed for chest discomfort/angina, hypertension response to exercise, or ST segment elevation or depression accompanied by chest pain or new wall motion abnormality. Notify provider. Start: 10-28-2024 End: 10-28-2024 0.4 mg, SubLINGual, Once, On Sun10/28/24 at 0755, For 1 dose, May administer up to 3 doses per episode. 2 ml ondansetron 2 mg/ml injection (20 sources) Serotonin-3 Receptor Antagonist Start: 12-08-2024 End: 12-08-2024 4 mg, IntraVENous, Once, On Sun12/08/24 at 0225, For 1 dose Start: 10-29-2024 End: 11-12-2024 take 1 tablet by mouth every eight hours as needed for nausea and vomiting ondansetron ODT (Zofran-ODT) 4 MG disintegrating tablet Take 1 tablet (4 mg) by mouth every 8 hours as needed for nausea or vomiting for up to 7 days. 20 tablet 10/29/2024 11/12/2024 Discontinued (Med list cleanup) Start: 03-15-2023 End: 09-26-2023 take 1 tablet by mouth every four hours as needed for nausea and vomiting Ondansetron 4 mg tablet,disintegrating Discontinued 4 mg PO Q4H as needed for nausea and vomiting 60 2 March 15, 2023 1:00am September 26, 2023 2:44am Start: 09-14-2020 End: 09-15-2020 4 mg, Intravenous, EVERY 6 H OURS PRN, Nausea, Starting on Sun09/15/20 at 1750, ondansetron ODT (Zofran-ODT) disintegrating tablet 4 mg (2 sources) Start: 10-28-2024 End: 10-29-2024 take 1 tablet by mouth every eight hours as needed for nausea and vomiting ondansetron ODT (Zofran-ODT) disintegrating tablet 4 mg oxyCODONE hydrochloride 5 mg oral tablet (8 sources) Opioid Agonist Start: 08-19-2024 End: 08-27-2024 take 1 tablet by mouth every eight hours as needed for pain Oxycodone 5 mg tablet Discontinued 5 mg PO Q8H as needed for pain 10 3 0 August 19, 2024 August 27, 2024 1:41pm Mass of left breast Unspecified lump in the left breast, upper outer quadrant oxytocin (PITOCIN) 10 unit bolus from the bag (1 source) Start: 09-15-2020 500 mL (30 Units), Intravenous, Administer over 75 Minutes, TITRATED, Starting on Sun09/15/20 at 1345 For Immediate Post Use Only. Give after delivery of placenta. &nbsp ;Bag 1 of 2: Bolus for bag to infuse at 999 ml/hour for 15 minutes (15 units in 250cc). After initial bolus then decrease rate to 250cc/hr for 1 hour. Then discontinue. Multiphase Phase of Care oxytoxin (PITOCIN) 30 units in 500 mL infusion (2 sources) Start: 09-15-2020 End: 09-15-2020 oxytoxin (PITOCIN) 30 units in 500 mL infusion Start: 09-14-2020 End: 09-15-2020 oxytoxin (PITOCIN) 30 units in 500 mL infusion pantoprazole (ProtoNix) 40 mg in sodium chloride (PF) 0.9 % 10 mL injection (2 sources) Start: 12-08-2024 End: 12-08-2024 40 mg, IntraVENous, Administer over 2 Minutes, Once, On Sun12/08/24 at 0225, For 1 dose, Reconstitute with 10 ml NS. Vial expires 2 hrs after reconstitution. perflutren lipid microspheres (Definity) injection 1.65 mg (2 sources) Start: 10-28-2024 End: 10-29-2024 take 1.65 mg intravenously once as needed 1.65 mg, IntraVENous, IMG once PRN, other, Suboptimal echo image, Starting on Sun10/28/24 at 1622, For 1 dose, CV Procedural Medications, Administer up to 1.65 mg via slow IVP for suboptimal echocardiogram enhancement. May administer a calculated dose or diluted 8.5 mL of 0.9% sodium chloride for a total volume of 10 mL. May administer as divided doses to reach optimal image enhancement perflutren protein A microsphere (Optison) 3 mL in sodium chloride (PF) 0.9 % 10 mL IV (2 sources) Start: 10-29-2024 End: 10-29-2024 0-10 mL, IntraVENous, IMG once PRN, other, Suboptimal echo image, Starting on Sun10/29/24 at 0755, For 1 dose, CV Procedural Medications, Administer via slow IVP for suboptimal echocardiogram enhancement. May administer as divided doses to reach optimal image enhancement polyethylene glycol 3350 09248 mg powder for oral solution (4 sources) Osmotic Laxative Start: 12-03-2024 End: 12-03-2024 take 17 g by mouth every twenty-four hours as needed for constipation Start: 10-28-2024 End: 10-29-2024 take 17 g by mouth every twenty-four hours as needed for constipation 17 g, Oral, Daily PRN, constipation, Starting on Sun10/28/24 at 1617, 1st line for treatment of constipation - give scheduled if no bowel movement in past 24 hours. microencapsulated potassium chloride 10 meq extended release oral tablet (4 sources) Start: 10-27-2024 End: 10-27-2024 40 mEq, Oral, Once, On Sun10/27/24 at 0345, For 1 dose, Best given with food and plenty of water to minimize gastric irritation. Do not crush or chew. Start: 10-27-2024 End: 10-27-2024 40 mEq, Oral, Once, On Sun at 0345, For 1 dose, Best given with food and plenty of water to minimize gastric irritation. Do not crush or chew. Start: 10-05-2024 End: 10-05-2024 take 1 [oz_av] by mouth once 40 mEq, Oral, Once, On 10/05/24 at 1745, For 1 dose, Dissolve each packet in 4 ounces of water = 5 mEq per 1 oz fluid., Indications: Hypokalemia MV-Min-Fe Fum-FA-DH A ( 1 PO) (20 sources) End: 12-12-2024 MV-Min-Fe Fum-FA-DH A ( 1 PO) Take by mouth. 12/12/2024 Discontinued (Therapy completed) MV-Min- Fe Fum-FA-DHA ( 1 PO) Take by mouth. Suspended MV-Min- Fe Fum-FA-DHA ( 1 PO) Take by mouth. Active End: 04-20-2022 MV-Min-Fe Fum-FA-DH A ( 1 PO) Take by mouth. 0 04/20/2022 Discontinued (Therapy completed) MV-Min- Fe Fum-FA-DHA ( 1 PO) Take by mouth. 0 Active MV-Min- Fe Fum-FA-DHA ( 1 PO) Take by mouth 0 Active Probiotic Product (PROBIOTIC DAILY PO) (20 sources) End: 12-12-2024 Probiotic Product (PROBIOTIC DAILY PO) Take by mouth. 12/12/2024 Discontinued (Therapy completed) Probiotic Produc t (PROBIOTIC DAILY PO) Take by mouth. Suspended Probiotic Produc t (PROBIOTIC DAILY PO) Take by mouth. Active Probiotic Produc t (PROBIOTIC DAILY PO) Take by mouth. 0 Active Prochlorperazine (2 sources) Phenothiazine Start: 12-03-2024 End: 12-03-2024 take 1 tablet by mouth every six hours as needed for nausea and vomiting prochlorperazine (Compazine) tablet 10 mg 50 ml sodium chloride 9 mg/ml injection (11 sources) Start: 12-08-2024 End: 12-08-2024 1,000 mL, IntraVENous, at 1,000 mL/hr, Administer over 1 Hours, Once, On 12/08/24 at 0225, For 1 dose Start: 12-03-2024 End: 12-03-2024 1,000 mL, IntraVENous, at 1, 000 mL/hr, Administer over 1 Hours, Once, On Sun12/03/24 at 0240, For 1 dose Start: 10-30-2024 End: 10-31-2024 1,000 mL, IntraVENous, at 1, 000 mL/hr, Administer over 1 Hours, Once, On Anna 10/30/24 at 2305, For 1 dose Start: 10-28-2024 End: 10-28-2024 1,000 mL, IntraVENous, at 1, 000 mL/hr, Administer over 1 Hours, Once, On Tu10/28/24 at 1310, For 1 dose Start: 10-05-2024 End: 10-05-2024 1,000 mL, IntraVENous, at 1, 000 mL/hr, Administer over 1 Hours, Once, On 10/05/24 at 1450, For 1 dose Start: 05-10-2019 End: 05-10-2019 0.9 % sodium chloride bolus sunflower lithisine (6 sources) Start: 09-17-2024 End: 10-15-2024 sunflower lithisine Disconti nued PO September 17, 2024 12:00am October 15, 2024 9:00am Start: 09-17-2024 sunflower sheela chacon Active PO September 17, 2024 12:00am Problems Active Problems Problem Classification Problem Date Documented Da te Episodic/Chronic Abdominal pain (20 sources) Right lower quadrant pain; Translations: [Left lower quadrant pain] Onset: 8 Episodic Comment on above: pelvic US ordered Anxiety disorders (5 sources) Panic; Translations: [Anxiety] Onset: 5 10-30-2024 Chronic Asthma (20 sources) Asthma; Translations: [Unspecified asthma, uncomplicated] Onset: 7 11-30-2016 Chronic Blindness and vision defects (3 sources) Eye / vision finding; Translations: [Unspecified visual disturbance] 09-08-2022 Episodic Cardiac dysrhythmias (20 sources) Supraventricular tachycardia; Translations: [Supraventricular tachycardia] Onset: 5 06-26-2023 Chronic Cardiac dysrhythmias (20 sources) Palpitations; Translations: [Palpitations] Onset: 1 Resolved: 1 03-08-2020 Episodic Comment on above: had w/last . Sees Dr Love/Sonja.Becoming more noticeable and will see cardio Chronic kidney disease (8 sources) Chronic kidney disease stage 2; Translations: [Chronic kidney disease, stage 2 (mild)] Onset: 4 Chronic Conditions associated with dizziness or vertigo (20 sources) Dizziness; Translations: [Dizziness and giddiness] Onset: 5 08-02-2022 Episodic Diseases of white blood cells (20 sources) Neutropenia; Translations: [Neutropenia, unspecified] 04-28-2022 Chronic Comment on above: Seeing edge stitcher Endometriosis (2 sources) Endometriosis (clinical); Translations: [Endometriosis, unspecified] 11-21-2022 Chronic Esophageal disorders (13 sources) Gastroesophageal reflux disease; Translations: [Gastro-esophageal reflux disease without esophagitis] Onset: 5 06-26-2023 Chronic Female infertility (13 sources) Female infertility associated with anovulation; Translations: [Female infertility associated with anovulation] 12-07-2022 Chronic Comment on above: Good egg supply and quality Fluid and electrolyte disorders (4 sources) Dehydration; Translations: [Dehydration] Onset: 5 12-08-2024 Episodic Genitourinary symptoms and ill-defined conditions (2 sources) Female stress incontinence; Translations: [Stress incontinence (female) (male)] 11-21-2022 Chronic Genitourinary symptoms and ill-defined conditions (20 sources) Dysuria; Translations: [Proteinuria] Onset: Episodic Comment on above: this was diagnosed b ased on proteinuria september 2021- last check at nob visit protein was negative. nl labsrpt q trimester or sooner as needed. Has seen 2 nephrolog ists , potentially stage 2 kidney disease. no longer having proteinuria for months. CMP and urine protein sent with NO-nl Headache; including migraine (20 sources) Migraine without aura, not refractory ; Translations: [Migraine without aura, not intractable, without status migrainosus] Onset: 5 04-21-2024 Chronic Headache; including migraine (20 sources) Chronic primary headache; Translations: [Chronic primary headache] Onset: 5 09-08-2022 Episodic Headache; including migraine (2 sources) Headache; including migraine; Translations: [Headache, unspecified] Onset: Malaise and fatigue (20 sources) Malaise; Translations: [Other malaise] Onset: 5 10-07-2024 Episodic Menopausal disorders (2 sources) Menopausal syndrome; Translations: [Menopausal and female climacteric states] 11-20-2022 Chronic Menstrual disorders (7 sources) Amenorrhea; Translations: [Amenorrhea, unspecified] Onset: 5 05-13-2024 Chronic Nausea and vomiting (5 sources) Nausea; Translations: [Nausea] Onset: 5 12-08-2024 Episodic Nonmalignant breast conditions (20 sources) Cyst of left breast; Translations: [Solitary cyst of left breast] Onset: 2 11-20-2021 Episodic Nonspecific chest pain (20 sources) Chest pain; Translations: [Chest pain, unspecified] Onset: 5 10-26-2024 Episodic Other circulatory disease (8 sources) Disorder of autonomic nervous system; Translations: [Orthostatic hypotension] Episodic Other circulatory disease (2 sources) Orthostatic hypotension; Translations: [Orthostatic hypotension] Onset: 5 Episodic Other complications of ; puerperium affecting management of mother (2 sources) Indication for care AND/OR intervention in labor AND/OR delivery; Translations: [Complication of labor and delivery, unspecified] Onset: 1 Episodic Other complications of (14 sources) Hypothyroidism in ; Translations: [Endocrine, nutritional and metabolic diseases complicating , unspecified trimester] Onset: 9 Resolved: 1 Episodic Comment on above: tsh/free t4 with nob has been off levothyroxine for years. obtaining records for antibody studies Other complications of (11 sources) High risk ; Translations: [Supervision of high risk , unspecified, unspecified trimester] 02-09-2023 Episodic Comment on above: [id number], SAHRA 09/21/23 ,boy PC Leandro, Cat Other complications of (5 sources) Endocrine, nutritional and metabolic diseases complicating , unspecified trimester; Translations: [Thyroid dysfunction of mother, unspecified as to episode of care or not applicable] 02-14-2023 Episodic Other complications of (5 sources) Supervision of high risk , unspecified, unspecified trimester; Translations: [Supervision of unspecified high-risk ] 02-14-2023 Episodic Other complications of (9 sources) Fundal height high for dates; Translations: [Uterine size-date discrepancy, unspecified trimester] 09-27-2023 Episodic Comment on above: 36 wk growth EFW 62% ; AC 64% Other complications of (9 sources) Disease of circulatory system complicating childbirth and puerperium; Translations: [Diseases of the circulatory system complicating , unspecified trimester] 06-26-2023 Episodic Other complications of (9 sources) Supraventricular tachycardia; Translations: [Diseases of the circulatory system complicating , unspecified trimester] 06-26-2023 Episodic Other connective tissue disease (6 sources) Spasm; Translations: [Other muscle spasm] 10-24-2024 Episodic Other connective tissue disease (2 sources) Myofascial pain; Translations: [Myalgia, other site] 12-12-2024 Episodic Other connective tissue disease (2 sources) Myalgia, other site; Translations: [Myalgia, other site] Onset: 5 Episodic Other connective tissue disease (2 sources) Muscle weakness (generalized); Translations: [Muscle weakness (generalized)] Onset: 5 Episodic Other connective tissue disease (2 sources) Myalgia, unspecified site; Translations: [Myalgia, unspecified site] Onset: 5 Episodic Other connective tissue disease (2 sources) Other muscle spasm; Translations: [Other muscle spasm] Onset: 5 Episodic Other endocrine disorders (3 sources) Disorder of endocrine ovary; Translations: [Other ovarian dysfunction] Onset: 5 05-13-2024 Chronic Other endocrine disorders (2 sources) Hyperprolactinemia; Translations: [Hyperprolactinemia] 06-30-2024 Chronic Other endocrine disorders (2 sources) Hyperprolactinemia; Translations: [Hyperprolactinemia (HCC)] Onset: 5 Chronic Other endocrine disorders (1 source) Other ovarian dysfunction; Translations: [Other ovarian dysfunction] Onset: 5 Chronic Other female genital disorders (1 source) Pain in female genitalia on intercourse; Translations: [Unspecified dyspareunia] 11-21-2022 Chronic Other gastrointestinal disorders (11 sources) Irritable bowel syndrome; Translations: [Irritable bowel syndrome without diarrhea] Onset: 4 01-28-2024 Chronic Other gastrointestinal disorders (1 source) Irritable bowel syndrome without diarrhea; Translations: [Irritable bowel syndrome, unspecified] Onset: 4 Chronic Other gastrointestinal disorders (1 source) Mixed irritable bowel syndrome; Translations: [Irritable bowel syndrome with both constipation and diarrhea] Onset: 5 Chronic Other gastrointestinal disorders (4 sources) Abdominal bloating; Translations: [Abdominal distension (gaseous)] Episodic Other gastrointestinal disorders (1 source) Alteration in bowel elimination; Translations: [Change in bowel habit] Episodic Other gastrointestinal disorders (2 sources) Burping; Translations: [Eructation] 09-24-2024 Episodic Other gastrointestinal disorders (2 sources) Diarrhea; Translations: [Diarrhea, unspecified] 12-08-2024 Episodic Other gastrointestinal disorders (2 sources) History of gastroesophageal reflux disease; Translations: [Personal history of other diseases of the digestive system] 12-08-2024 Episodic Other gastrointestinal disorders (2 sources) History of irritable bowel syndrome; Translations: [Personal history of other diseases of the digestive system] 12-08-2024 Episodic Other gastrointestinal disorders (2 sources) Diarrhea, unspecified; Translations: [Diarrhea, unspecified] Onset: Episodic Other gastrointestinal disorders (2 sources) Personal history of other diseases of the digestive system; Translations: [Personal history of other diseases of the digestive system] Onset: 5 Episodic Other gastrointestinal disorders (1 source) Eructation; Translations: [Belching] Onset: Episodic Other gastrointestinal disorders (1 source) Dysphagia, unspecified; Translations: [Dysphagia, unspecified type] Onset: 5 Episodic Other gastrointestinal disorders (1 source) Abdominal distension (gaseous); Translations: [Bloating] Onset: Episodic Other lower respiratory disease (6 sources) Dyspnea; Translations: [Shortness of breath] 01-11-2023 Episodic Other lower respiratory disease (1 source) Shortness of breath; Translations: [Shortness of breath] Onset: Episodic Other nervous system disorders (20 sources) Disorder of autonomic nervous system; Translations: [Disorder of the autonomic nervous system, unspecified] Onset: 5 11-11-2024 Chronic Other nervous system disorders (1 source) Neuropathy; Translations: [Polyneuropathy, unspecified] 12-12-2024 Chronic Other nervous system disorders (2 sources) Polyneuropathy, unspecified; Translations: [Polyneuropathy, unspecified] Onset: Chronic Other nervous system disorders (2 sources) Other chronic pain; Translations: [Other chronic pain] Onset: Chronic Other nervous system disorders (20 sources) Tremor; Translations: [Tremor, unspecified] Onset: 5 10-07-2024 Episodic Other nervous system disorders (2 sources) Paresthesia; Translations: [Paresthesia of skin] 10-30-2024 Episodic Other nervous system disorders (2 sources) Paresthesia of skin; Translations: [Paresthesia of skin] Onset: 09-25-202 5 Episodic Other nervous system disorders (2 sources) Tremor, unspecified; Translations: [Tremor, unspecified] Onset: 5 Episodic Other nutritional; endocrine; and metabolic disorders (3 sources) Loss of appetite; Translations: [Anorexia] Onset: 5 12-08-2024 Episodic Other nutritional; endocrine; and metabolic disorders (1 source) Anorexia; Translations: [Anorexia] Onset: 5 Episodic Other screening for suspected conditions (not mental disorders or infectious disease) (11 sources) Ultrasonography of breast abnormal; Translations: [Other abnormal and inconclusive findings on diagnostic imaging of breast] 12-17-2023 Episodic Polyhydramnios and other problems of amniotic cavity (9 sources) Spontaneous rupture of membranes 09-27-2023 Episodic Prolapse of female genital organs (1 source) Herniation of rectum into vagina; Translations: [Rectocele] 11-21-2022 Chronic Residual codes; unclassified (1 source) Gestation period, 24 weeks; Translations: [24 weeks gestation of ] Episodic Residual codes; unclassified (1 source) Gestation period, 9 weeks; Translations: [9 weeks gestation of ] 02-13-2023 Episodic Spondylosis; intervertebral disc disorders; other back problems (9 sources) Low back pain; Translations: [Low back pain] Onset: 8 Episodic Sprains and strains (3 sources) Strain of muscle of upper limb; Translations: [Strain of other muscles, fascia and tendons at shoulder and upper arm level, unspecified arm, initial encounter] Onset: 5 10-18-2024 Episodic Syncope (20 sources) Vasovagal symptom; Translations: [Syncope and collapse] Onset: 5 06-26-2023 Episodic Thyroid disorders (20 sources) Hypothyroidism, unspecified; Translations: [Hypothyroidism] Onset: 9 11-30-2016 Chronic Unclassified (1 source) Unknown / UNK(Unknown) Onset: 7 Unclassified (2 sources) Patient encounter status; Translations: [ care, antepartum] Onset: 1 02-27-2020 Unclassified (1 source) MEET WITH PHYSICIAN 05-22-2024 Unclassified (1 source) Multiple Concerns Onset: 5 Unclassified (1 source) Pelvic and perineal pain unspecified side; Translations: [Pelvic and perineal pain unspecified side] Onset: Unclassified (2 sources) Pain in pelvis; Translations: [Pelvic pain] 12-16-2024 Unclassified (1 source) POTS (postural orthostatic tachycardia syndrome); Translations: [POTS (postural orthostatic tachycardia syndrome)] Onset: Urinary tract infections (2 sources) Interstitial cystitis (chronic) without hematuria; Translations: [Chronic interstitial cystitis] 12-16-2024 Chronic Past or Other Problems Problem Classification Problem Date Documented Da te Episodic/Chronic Deficiency and other anemia (1 source) Anemia; Translations: [Anemia, unspecified] Episodic Gastrointestinal hemorrhage (15 sources) Melena; Translations: [Melena] Onset: 01-24-2024 01-28-2024 Episodic Other complications of ; puerperium affecting management of mother (1 source) Delivery finding; Translations: [Complication of labor and delivery, unspecified] Onset: 09-14-2020 Resolved: 11-11-2020 11-11-2020 Episodic Other complications of (4 sources) Rubella non-immune; Translations: [Rubella non-immune status, antepartum] Onset: 03-05-2020 Resolved: 11-11-2020 03-05-2020 Episodic Other injuries and conditions due to external causes (7 sources) Injury of head; Translations: [Unspecified injury of head, initial encounter] Onset: 04-30-2024 04-30-2024 Episodic Other injuries and conditions due to external causes (1 source) Unspecified injury of head, initial encounter; Translations: [Unspecified injury of head, initial encounter] Onset: 04-30-2024 Episodic Other and delivery including normal (20 sources) Patient encounter status; Translations: [Encounter for supervision of normal , unspecified, unspecified trimester] Onset: 02-27-2020 Resolved: 11-11-2020 02-27-2020 Episodic Comment on above: Neg GBS. discussed g enetic & carrier testing-declines, nl anatomy Residual codes; unclassified (5 sources) Flushing; Translations: [Flushing] Onset: 05-13-2024 04-24-2022 Episodic Residual codes; unclassified (3 sources) Genetic predisposition; Translations: [Genetic susceptibility to other disease] Onset: 05-13-2024 05-13-2024 Episodic Residual codes; unclassified (3 sources) History of clinical finding in subject; Translations: [Personal history of other specified conditions] Onset: 05-13-2024 05-13-2024 Episodic Residual codes; unclassified (3 sources) Family history of disorder; Translations: [Family history of other endocrine, nutritional and metabolic diseases] Onset: 05-13-2024 05-13-2024 Episodic Residual codes; unclassified (1 source) Flushing; Translations: [Flushing] Onset: 05-13-2024 Episodic Residual codes; unclassified (1 source) Genetic susceptibility to other disease; Translations: [Genetic susceptibility to other disease] Onset: 05-13-2024 Episodic Residual codes; unclassified (1 source) Personal history of other specified conditions; Translations: [Personal history of other specified conditions] Onset: 05-13-2024 Episodic Residual codes; unclassified (1 source) Family history of other endocrine, nutritional and metabolic diseases; Translations: [Family history of other endocrine, nutritional and metabolic diseases] Onset: 05-13-2024 Episodic Unclassified (1 source) M79.672, M25.872 Onset: 08-07-2016 Unclassified (2 sources) Interstitial cystitis 12-16-2024 Unclassified (2 sources) Finding of sensation of bladder 12-16-2024 Results Test Name Value Interpretation Reference Range Facility [facility] 12-17-2024 [facility] Office Visit ([facility] ) -------- MACHELLEMAY ([id number]) 1995 F Date Time Provider Department 12/17/24 7:30 AM CARISA RODRIGUEZ [facility] During your visit today, we recorded the following information about you: Pulse Blood pressure Weight Height 99/minute 113/71 73.9 kg 1.676 m Carisa Rodriguez MD 12/17/2024 5:55 PM Signed [facility] INITIAL VISIT Patient: May Machelle The patient presents with chief complaint of POTS, irritable bowel, , evaluated previously by cardiology, PCP, GI An medical timeline approach was utilized to identify antecedents, triggers, and mediators contributing to current health concerns. Assessment and Plan: Using a systems biology approach and matching our assessment to the patient stated goals of care, we have detected historical evidence (antecedents, triggers, and mediators) contributing to POTs digestive issues . Assessment AND Plan 1. POTS (postural orthostatic tachycardia syndrome) (G90.A) - Diagnosis confirmed by positive tilt table test. - Trialed metoprolol, discontinued due to abdominal pain and dizziness; currently on propranolol. - Advised to continue support stockings. - Recommended gradual, graded exercise as tolerated. - Advised to avoid processed electrolyte drinks (e.g., Gatorade) and use natural alternatives (e.g., coconut water with salt and citrus). - Encouraged participation in shared medical appointments for POTS education and support. - Advised to discuss sleep study with volumetric weigher to address nocturnal tachycardia and fatigue. - Refer to mask inspector for dietary optimization and health motorcoach driver for stress management and graded exercise guidance. - Follow-up in 3 months to assess progress. 2. Nausea (R11.0) 3. Irritable bowel syndrome with both constipation and diarrhea (K58.2) - Chronic IBS with both constipation and diarrhea; nausea and abdominal pain may be exacerbated by POTS and dietary factors. - Advised to slowly increase dietary fiber and maintain regular bowel movements to support toxin elimination. - Recommended avoiding gluten due to family history of celiac disease. - Provided natural detox tips, including detox smoothie and bone broth recipes. - Advised to avoid artificial sweeteners and processed foods. - Refer to mask inspector for further dietary guidance. Life Style Prescription Nutrition/Food Plan Natural ways to detox: 1.Air quality in your house and work are important. Consider investing in a good quality air purifier to clean the air. The sun is a natural detoxifier, therefore consider opening the shades/blinds throughout the day as much as possible. Do not forget to routinely have your HVAC filter changed and investigate the highest grade possible if you can afford it. 4. Drink infused water daily: Some data suggests that the longer the infusion time (6-12 hours) with the peel or skin, the higher the antioxidant potential. 5. Eat organic as much as possible. Please visit the environmental working group to learn about fruits and veggies with the highest amount of toxins on them called the dirty dozen. EWG.org. Try to eat clean sources of meat as well. If you can not afford this, more vegetables than fruits are important to consume since they help up regulate your detoxification ability. 6. Get the free jonny: think dirty. It evaluates your personal care products and household products to make sure they are toxin free or low in toxins. Aim for a grade of 3 or less. 7. Eat the rainbow and use fresh and dried organic (preferred) spices such as: christiane, parsley, oregano, cilantro, chlorella, increase soluble fiber from leafy green and cruciferous vegetables and consider a daily detox smoothie (discuss with mask inspector). Detox: - Consider Dr. Ivanna Amaro's book on Whole Detox for guidance. In the book she has many recipes that you can use. I think the smoothies In the book is a good place to start. Here is one to consider: Rooty Shake By Ivanna Amaro and Lamar Rosales - 1 medium raw beets, cubed - 1/2 red apple in slices (peeled if not organic) - juice from one small lemon - 3-5 leaves of edmar or your favorite leafy vegetables - 1 scoop of protein powder of your choice (rice, hemp, pea) - 1/2 tbsp of flax seeds or flax meal - 1/8 tsp of turmeric - dash pepper - 1/2 cup water Blend, add more water if needed. Detox Broth: Makes 6 cups 10 cups filtered water (at least by Kenna or better water filter, now's your excuse to buy one!) 1/2 cup dried shiitake mushrooms 1/2 turnip, chopped 1 medium sweet potato, chopped 1-2 celery stalks, chopped 2 parsnips, chopped 2 leeks, rinsed well, chopped* 2 cups cabbage or kale, rinsed well, chopped, packed Chopped parsley Fresh stef Dried sweet basil Dried oregano Spritz of lemon1. Fill a large stockpot with the filtered water. A (more content not included)... Normal [facility] 29on 12-16-2024 29 Addended by: PEG NELSON on: 12/16/2024 10:38 AM Modules accepted: Orders Normal [facility] Progress Noteon 12-16-2024 Progress Note Mathematics Faculty Member was offere d to the patient for exam. Patient declined offer of features reporter Normal [facility] Progress Note Normal [facility] Urinalysis macro (dipstick) panel (U)on 12-16-2024 Bilirubin, UA Negative [facility] Blood, UA Negative [facility] Glucose, UA Negative [facility] Interpretation and review of laboratory results Normal [facility] Ketones, POC (mg/dL) Negative [facility] Leukocytes, UA Negative [facility] Nitrite, UA Negative [facility] pH, UA 7.0 [facility] Protein, UA Negative [facility] Spec Grav, UA 1.020 [facility] Urobilinogen, UA 0.2 [facility] 36on 12-15-2024 36 Normal [facility] Progress Noteon 12-12-2024 Progress Note Normal [facility] [id number] 12-08-2024 [id number] To Provider for review/advise. Normal [facility] CBC W Auto Differential pane l (Bld)on 12-08-2024 Basophils (Bld) [#/Vol] 0 10*3/uL 0.0 - 0.2 10*3/uL [facility] Basophils/100 WBC (Bld) 0.5 % 0.0 - 2.0 % [facility] Eosinophils (Bld) [#/Vol] 0.2 10*3/uL 0.0 - 0.5 10*3/uL [facility] Eosinophils/100 WBC (Bld) 2.5 % 0.0 - 6.0 % [facility] Erythrocyte distribution width (RBC) [Ratio] 11.8 % 11.5 - 15.0 % [facility] Hematocrit (Bld) [Volume fraction] 43.6 % 35.0 - 47.0 % [facility] Hemoglobin (Bld) [Mass/Vol] 14.7 g/dL 11.7 - 16.0 g/dL [facility] Immature granulocytes (Bld) [#/Vol] 0 10*3/uL NINF - 0.1 10*3/uL [facility] Immature granulocytes/100 WBC (Bld) 0.2 % 0.0 - 2.0 % [facility] Interpretation and review of laboratory results Normal [facility] Lymphocytes (Bld) [#/Vol] 1.8 10*3/uL 1.0 - 4.3 10*3/uL [facility] Lymphocytes/100 WBC (Bld) 30.2 % 15.0 - 45.0 % [facility] MCH (RBC) [Entitic mass] 28.3 pg 26.0 - 34.0 pg [facility] MCHC (RBC) [Mass/Vol] 33.7 % 30.5 - 36.0 % [facility] MCV (RBC) [Entitic vol] 84 fL 77.0 - 99.0 fL [facility] Monocytes (Bld) [#/Vol] 0.4 10*3/uL 0.0 - 0.9 10*3/uL [facility] Monocytes/100 WBC (Bld) 7.1 % 5.0 - 13.0 % [facility] Neutrophils (Bld) [#/Vol] 3.5 10*3/uL 1.8 - 7.5 10*3/uL [facility] Neutrophils/100 WBC (Bld) 59.5 % 38.0 - 82.0 % [facility] Nucleated RBC/100 WBC (Bld) [Ratio] 0 % [facility] Platelet mean volume (Bld) [Entitic vol] 10.1 fL 9.0 - 12.7 fL [facility] Comment on above: MPV is a calculated measurement using platelet volume ratio Platelets (Bld) [#/Vol] 195 10*3/uL 140 - 440 10*3/uL [facility] RBC (Bld) [#/Vol] 5.19 10*6/uL 3.80 - 5.2 0 10*6/uL [facility] WBC (Bld) [#/Vol] 5.9 10*3/uL 3.6 - 10.7 10*3/uL [facility] CBC WITH AUTO DIFFERENTIALon 12-08-2024 Basophils (Bld) [#/Vol] 0.0 10*3/uL Normal 0.0-0.2 [facility] Comment on above: Performed By: #### L [id number] ####Fuel Oil Clerk: ALBERTINA SAUNDERS ([id number])[facility] [employer] (SWRL[employer])[address] [place] [address] [place] Basophils/100 WBC (Bld) 0.5 % Normal 0.0-2.0 [facility] Comment on above: Performed By: #### L [id number] ####Fuel Oil Clerk: ALBERTINA SAUNDERS ([id number])[facility] [employer] ([facility])[address] [place] [address] Eosinophils (Bld) [#/Vol] 0.2 10*3/uL Normal 0.0-0.5 [facility] Comment on above: Performed By: #### L [id number] ####Fuel Oil Clerk: ALBERTINA SAUNDERS ([id number])[facility] [employer] ([facility])[address] [place] [address] [place] Eosinophils/100 WBC (Bld) 2.5 % Normal 0.0-6.0 [facility] Comment on above: Performed By: #### L [id number] ####Fuel Oil Clerk: ALBERTINA SAUNDERS ([id number])[facility] [facility] ([facility])[address] [place] [address] Erythrocyte distribution width (RBC) [Ratio] 11.8 % Normal 11.5-15.0 [facility] Comment on above: Performed By: #### L [id number] ####Fuel Oil Clerk: ALBERTINA SAUNDERS ([id number])[facility] [facility] ([facility])[address] [place] [address] Hematocrit (Bld) [Volume fraction] 43.6 % Normal 35.0-47.0 [facility] Comment on above: Performed By: #### L [id number] ####Fuel Oil Clerk: ALBERTINA SAUNDERS ([id number])[facility] [employer] ([employer])[address] [place] [address] Hemoglobin (Bld) [Mass/Vol] 14.7 g/dL Normal 11.7-16.0 [facility] Comment on above: Performed By: #### L [id number] ####Fuel Oil Clerk: ALBERTINA SAUNDERS ([id number])[facility] [employer] ([employer])[address] [place] [address] IMMATURE GRANS % 0.2 % Normal 0.0-2.0 [facility] Comment on above: Performed By: #### L [id number] ####Fuel Oil Clerk: ALBERTINA SAUNDERS ([id number])[facility] ([facility])[address] [place] [address] IMMATURE GRANS ABSOLUTE 0.0 10*3/uL Normal <0.1 [facility] Comment on above: Performed By: #### L [id number] ####Fuel Oil Clerk: ALBERTINA SAUNDERS ([id number])[facility] ([facility])[address] [place] [address] Lymphocytes (Bld) [#/Vol] 1.8 10*3/uL Normal 1.0-4.3 [facility] Comment on above: Performed By: #### L [id number] ####Fuel Oil Clerk: ALBERTINA SAUNDERS ([id number])[facility] ([facility])[address] [place] [address] Lymphocytes/100 WBC (Bld) 30.2 % Normal 15.0-45.0 [facility] Comment on above: Performed By: #### L [id number] ####Fuel Oil Clerk: ALBERTINA SAUNDERS ([id number])[facility] ([facility])[address] [place] [address] MCH (RBC) [Entitic mass] 28.3 pg Normal 26.0-34.0 [facility] Comment on above: Performed By: #### L [id number] ####Fuel Oil Clerk: ALBERTINA SAUNDERS ([id number])[facility] ([facility])[address] [place] [address] MCHC 33.7 % Normal 30.5-36.0 [facility] Comment on above: Performed By: #### L [id number] ####Fuel Oil Clerk: ALBERTINA SAUNDERS ([id number])[facility] [employer] ([facility])[address] MCV (RBC) [Entitic vol] 84.0 fL Normal 77.0-99.0 [facility] Comment on above: Performed By: #### L [id number] ####Fuel Oil Clerk: ALBERTINA SAUNDERS ([id number])[facility] [employer] ([employer])[address] Monocytes (Bld) [#/Vol] 0.4 10*3/uL Normal 0.0-0.9 [facility] Comment on above: Performed By: #### L [id number] ####Fuel Oil Clerk: ALBERTINA SAUNDERS ([id number])[facility] [employer] ([employer])[address] [place] [address] [place] Monocytes/100 WBC (Bld) 7.1 % Normal 5.0-13.0 [facility] Comment on above: Performed By: #### L [id number] ####Fuel Oil Clerk: ALBERTINA SAUNDERS ([id number])[facility] [employer] ([facility])[address] [place] [address] [place] NEUTROPHILS ABSOLUTE 3.5 10*3/uL Normal 1.8-7.5 [facility] Comment on above: Performed By: #### L [id number] ####Fuel Oil Clerk: ALBERTINA SAUNDERS ([id number])[facility] [employer] ([employer])[address] [place] [address] [place] Neutrophils/100 WBC (Bld) 59.5 % Normal 38.0-82.0 [facility] Comment on above: Performed By: #### L [id number] ####Fuel Oil Clerk: ALBERTINA SAUNDERS ([id number])[facility] [employer] ([facility])[address] [place] [address] [place] NRBC 0.0 /100 WBCs Normal 0.0-2.0 [facility] Comment on above: Performed By: #### L [id number] ####Fuel Oil Clerk: ALBERTINA SAUNDERS ([id number])[facility] [employer] ([facility])[address] Platelet mean volume (Bld) [Entitic vol] 10.1 fL Normal 9.0-12.7 [facility] Comment on above: Result Comment: MPV is a calculated measurement using platelet volume ratio Performed By: #### L [id number] ####Fuel Oil Clerk: ALBERTINA SAUNDERS ([id number])[facility] ([facility])[address] [place] [address] Platelets (Bld) [#/Vol] 195 10*3/uL Normal 140-440 [facility] Comment on above: Performed By: #### Lola [id number] ####Fuel Oil Clerk: ALBERTINA SAUNDERS ([id number])[facility] ([facility])[address] [place] [address] RBC (Bld) [#/Vol] 5.19 10*6/uL Normal 3.80-5.20 [facility] Comment on above: Performed By: #### L [id number] ####Fuel Oil Clerk: ALBERTINA SAUNDERS ([id number])[facility] ([facility])[address] [place] [address] WBC (Bld) [#/Vol] 5.9 10*3/uL Normal 3.6-10.7 [facility] Comment on above: Performed By: #### L [id number] ####Fuel Oil Clerk: ALBERTINA SAUNDERS ([id number])[facility] ([facility])[address] [place] [address] CNOVon 12-08-2024 CNOV Office Visit ([facility] ) -------- MACHELLEMAY ([id number]) 1995 F Date Time Provider Department 12/08/24 9:25 AM MARIE MATHIS During your visit today, we recorded the following information about you: Pulse Blood pressure Weight Height 97/minute 112/70 71.7 kg 1.676 m Marie Mathis PA-C 12/08/2024 10:09 AM Signed CHIEF COMPLAINT: Patient presents with: Abdominal Pain HPI May Machelle is a 29 year old female here today for Abdominal Pain. Seen previously by Tariq Singleton CNP. EGD unremarkable. Seen in ER today. CT, labs unremarkable, advised to f/u with GI. Reports 2.5 months of worsening abdominal pain. She describes the pain as a band-like sensation following the lower margins of both costal arches, initially localized but now diffuse throughout the abdomen and radiating up the esophagus. Pain is worsened by eating and with movement or standing, and is associated with early satiety and discomfort with swallowing. She rates her current pain as 7-8/10. She reports significant nausea, frequent belching, and a sensation of dry heaving, but denies emesis. She has been unable to tolerate more than small amounts of bland food, and has lost approximately 1 lb per day over the past 5 days, with a total weight loss of 5 lbs. She reports a sensation of abdominal pressure, but notes her abdomen appears sunken rather than distended. Bowel habits include a single, generally normal bowel movement each morning, with occasional episodes of diarrhea, most recently on Sunday, accompanied by severe abdominal pain and near-syncope. She reports a sensation of incomplete evacuation, but attributes the low stool volume to minimal oral intake. She notes that diarrhea may be associated with pain flares, but is not consistently post-prandial. She has a history of norovirus infection last year, confirmed by stool testing. She has trialed pantoprazole, sucralfate, hyoscyamine, and famotidine, with no significant relief. She is currently taking pantoprazole 20 mg daily, and has discontinued sucralfate and hyoscyamine. She reports dizziness, but is unsure if this is medication-related. She has Zofran at home from a prior prescription during . She is currently her infant, born in 2023. She has no family history of cholecystectomy. - Stool testing 2023: Norovirus positive. CT AP 12/2024 Impression 1. No evidence of acute infectious or inflammatory process in the abdomen or pelvis. 2. The liver demonstrates generalized diminished attenuation as compared to the spleen, which may be compatible with hepatic steatosis; correlate with LFTs. EGD 11/2024 Impression: - Z-line regular, 39 cm from the incisors. - Normal esophagus. - Normal stomach. Biopsied. - Normal duodenal bulb, second portion of the duodenum and third portion of the duodenum. Biopsied. Clip (MR conditional) was placed. 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 - Biopsies were taken with a cold forceps for evaluation of eosinophilic esophagitis. Component Resulting Agency FINAL DIAGNOSIS A. Small bowel, biopsy: - Small bowel mucosa with no significant pathologic changes. B. Stomach, biopsy: - Antral mucosa with mild chronic inactive gastritis. - See comment. C. Distal esophagus, biopsy: - Squamous mucosa with no significant pathologic changes. D. Proximal esophagus, biopsy: - Squamous mucosa with no significant pathologic changes. Current Outpatient Medications Medication Sig metoprolol succinate ER (TOPROL XL) 25 mg 24 hr tablet Take 25 mg by mouth. sucralfate (CARAFATE) 100 mg/mL suspension Take 10 mL by mouth before meals and at bedtime. hyoscyamine sublingual (LEVSIN/SL) 0.125 mg Dissolve 1 tablet under the tongue every 4 hours as needed (abdominal pain). pantoprazole DR (PROTONIX) 20 mg tablet Take 20 mg by mouth. No current facility-administered medications for this visit. ALLERGIES Allergen Reactions Alprazolam Unknown Quetiapine Fumarate Unknown SOCIAL HISTORY[1] PAST MEDICAL HISTORY Diagnosis Date Generalized anxiety disorder PAST SURGICAL HISTORY Procedure Laterality Date BREAST LUMPECTOMY HX 08/2024 COLONOSCOPY 03/2024 EGD W/O [facility] SPEC VARICIES INJ 11/18/2024 TONSILLECTOMY AND ADENOIDECTOMY FAMILY HISTORY Problem Relation Age of Onset Colon Cancer Maternal Grandmother REVIEW OF SYSTEMS Review of Systems Constitutional: Positive for activity change, appetite change, fatigue and unexpected weight change. HENT: Positive for sore throat and trouble swallowing. Respiratory: Positive for cough, chest tightness and shortness of breath. Cardiovascular: Positive for chest pain. Gastrointestinal: Positive for abdominal pain, diarrhea and nausea. Change in bowel habits, Gas, Heartburn All other systems reviewed and are negative. PHYSICAL EXAM BP 112/70 Pulse 97 Ht 167.6 (more content not included)... Normal [facility] COMPLETE URINALYSIS WITH REF STEVE TO CULTUREon 12-08-2024 BILIRUBIN, TOTAL PRESENCE IN URINE Negative Normal Negative [facility] Comment on above: Performed By: #### L [id number] ####Fuel Oil Clerk: ALBERTINA SAUNDERS ([id number])[facility] (SWRL[facility])[address] [place] [address] Clarity (U) Clear Normal Clear [facility] Comment on above: Performed By: #### L [id number] ####Fuel Oil Clerk: ALBERTINA SAUNDERS ([id number])[facility] ([facility])[address] [place] [address] Color (U) Light Yellow Normal Lt. Yellow [facility] Comment on above: Performed By: #### L [id number] ####Fuel Oil Clerk: ALBERTINA SAUNDERS ([id number])[facility] ([facility])[address] [place] [address] GLUCOSE (MG/DL) IN URINE Normal Normal Normal (<70) [facility] Comment on above: Performed By: #### L [id number] ####Fuel Oil Clerk: ALBERTINA SAUNDERS ([id number])[facility] ([facility])[address] [place] [address] HEMOGLOBIN PRESENCE IN URINE Negative Normal Negative [facility] Comment on above: Performed By: #### L [id number] ####Fuel Oil Clerk: ALBERTINA SAUNDERS ([id number])[facility] ([facility])[address] [place] [address] Ketones Ql (U) Trace Abnormal Negative [facility] Comment on above: Performed By: #### L [id number] ####Fuel Oil Clerk: ALBERTINA SAUNDERS ([id number])[facility] ([facility])[address] [place] [address] [place] LEUKOCYTE ESTERASE PRESENCE IN URINE BY TEST STRIP Negative Normal Negative [facility] Comment on above: Performed By: #### L [id number] ####Fuel Oil Clerk: ALBERTINA SAUNDERS ([id number])[facility] ([facility])[address] [place] [address] [place] NITRITE PRESENCE IN URINE Negative Normal Negative [facility] Comment on above: Performed By: #### L [id number] ####Fuel Oil Clerk: ALBERTINA SAUNDERS ([id number])[facility] ([facility])[address] [place] [address] pH (U) 5.5 [pH] Normal 5.0-8.0 [facility] Comment on above: Performed By: #### L [id number] ####Fuel Oil Clerk: ALBERTINA SAUNDERS ([id number])[facility] ([facility])[address] [place] [address] [place] Protein (U) [Mass/Vol] Negative Normal Negative [facility] Comment on above: Performed By: #### L [id number] ####Fuel Oil Clerk: ALBERTINA SAUNDERS ([id number])[facility] ([facility])[address] [place] [address] [place] Specific gravity (U) [Rel density] 1.021 Normal 1.005-1.030 [facility] Comment on above: Result Comment: ORDE R COMMENTS:A specimen with <=10 WBC is not consistent with inflammation. This specimen will not reflex to a urine culture. Performed By: #### L [id number] ####Fuel Oil Clerk: ALBERTINA SAUNDERS ([id number])[facility] ([facility])[address] [place] [address] [place] UROBILINOGEN (MG/DL) IN URINE Normal Normal Normal (0-1) [facility] Comment on above: Performed By: #### L [id number] ####Fuel Oil Clerk: ALBERTINA SAUNDERS ([id number])[facility] ([facility])[address] COMPREHENSIVE METABOLIC PANE Baldo 12-08-2024 Albumin [Mass/Vol] 4.4 g/dL Normal 3.1-4.5 [facility] Comment on above: Performed By: #### L [id number], [id number], [id number], [id number] ####Fuel Oil Clerk: ALBERTINA SAUNDERS ([id number])[facility] ([facility])[address] ALP [Catalytic activity/Vol] 66 U/L Normal 40-150 [facility] Comment on above: Performed By: #### L AB99, LAB17, [id number], [id number] ####Fuel Oil Clerk: ALBERTINA SAUNDERS ([id number])[facility] BETANCOURTBULMARO RITTMAN (SWRLAB)[address] ALT [Catalytic activity/Vol] 15 U/L Normal <30 [facility] Comment on above: Performed By: #### L AB99, LAB17, [id number], [id number] ####Fuel Oil Clerk: ALBERTINA SAUNDERS ([id number])[facility]ANCOURTBULMARO RIT[facility] (SWRLAB)[address] [place] [address] Anion gap [Moles/Vol] 9 mmol/L Normal 3-13 [facility] Comment on above: Performed By: #### L AB99, LAB17, [id number], [id number] ####Fuel Oil Clerk: ALBERTINA SAUNDERS ([id number])[facility]ANCOURTBULMARO RIT[facility]AN (SWRLAB)[address] [place] [address] [place] AST [Catalytic activity/Vol] 14 U/L Normal <34 [facility] Comment on above: Performed By: #### L AB99, LAB17, [id number], [id number] ####Fuel Oil Clerk: ALBERTINA SAUNDERS ([id number])[facility]RTBULMARO [facility] (SWRLAB)[address] [place] [address] [place] Bilirubin [Mass/Vol] 0.6 mg/dL Normal <1.2 [facility] Comment on above: Performed By: #### L AB99, LAB17, [id number], [id number] ####Fuel Oil Clerk: ALBERTINA SAUNDERS ([id number])[facility] ([facility])[address] Calcium [Mass/Vol] 9.5 mg/dL Normal 8.4-10.2 [facility] Comment on above: Performed By: #### L AB99, LAB17, [id number], [id number] ####Fuel Oil Clerk: ALBERTINA SAUNDERS ([id number])[facility] ([facility])[address] Chloride [Moles/Vol] 108 mmol/L High 98-107 [facility] Comment on above: Performed By: #### L AB99, LAB17, [id number], [id number] ####Fuel Oil Clerk: ALBERTINA SAUNDERS ([phone])[facility] (SWRLAB)[address] [place] [address] [place] CO2 [Moles/Vol] 24 mmol/L Normal 22-29 [facility] Comment on above: Performed By: #### L AB99, LAB17, QGB047, [id number] ####Fuel Oil Clerk: ALBERTINA SAUNDERS ([id number])[facility] [place] (SWRLAB)[address] Creatinine [Mass/Vol] 0.90 mg/dL Normal 0.52-1.02 [facility] Comment on above: Performed By: #### L AB99, LAB17, [id number], [id number] ####Fuel Oil Clerk: ALBERTINA SAUNDERS ([id number])[facility] [place] (SWRLAB)[address] [place] [address] [place] GLOMERULAR FILTRATION RATE ML/MIN/1.73 SQ M.PREDICTED 88.4 mL/min/1.73m*2 Normal >60.0 [facility] Comment on above: Result Comment: Calc ulation based on the Chronic Kidney Disease Epidemiology Collaboration (CKD-EPI) equation refit without adjustment for race Performed By: #### L AB99, LAB17, IJA467, [id number] ####Fuel Oil Clerk: ALBERTINA SAUNDERS ([id number])[facility]UTECesra [place]LA[place] (SWRLAB)[address] [place] [address] [place] Glucose [Mass/Vol] 94 mg/dL Normal 74-100 [facility] Comment on above: Performed By: #### L AB99, LAB17, GAM723, [id number] ####Fuel Oil Clerk: ALBERTINA SAUNDERS ([id number])[facility] [place] (SWRLAB)[address] [place] [address] [place] Potassium [Moles/Vol] 4.1 mmol/L Normal 3.5-5.1 [facility] Comment on above: Result Comment: [facility] potassium values may be up to 0.5 mmol/L lower than serum values. Performed By: #### L AB99, LAB17, DZE250, [id number] ####Fuel Oil Clerk: ALBERTINA SAUNDERS ([phone])[facility] [place] (SWRLAB)[address] [place] [address] [place] Protein [Mass/Vol] 6.7 g/dL Normal 6.4-8.3 [facility] Comment on above: Performed By: #### L AB99, LAB17, CKM405, GSZ693 ####Fuel Oil Clerk: ALBERTINA SAUNDERS ([id number])[facility] [place] (SWRLAB)[address] [place] [address] [place] Sodium [Moles/Vol] 141 mmol/L Normal 136-145 [facility] Comment on above: Performed By: #### L AB99, LAB17, CEF331, [id number] ####Fuel Oil Clerk: ALBERTINA SAUNDERS ([id number])[facility] [place] (SWRLAB)[address] [place] [address] [place] Urea nitrogen [Mass/Vol] 16 mg/dL Normal 8-21 [facility] Comment on above: Performed By: #### L AB99, LAB17, TCQ658, [id number] ####Fuel Oil Clerk: ALBERTINA SAUNDERS ([id number])[facility]esar AMADOR (EMPERATRIZRLAB)[address] [place] [address] CT ABDOMEN PELVIS W CONTRAST on 12-08-2024 CT ABDOMEN PELVIS W CONTRAST Normal [facility] CT Abdomen and Pelvis W cont rast Isabel 12-08-2024 1. No evidence of ac agua caliente infectious or inflammatory process in the abdomen or pelvis. 2. The liver demonstrates generalized diminished attenuation as compared to the spleen, which may be compatible with hepatic steatosis; correlate with LFTs. Report Dictated on Electronically Signed By: Cayden Fregoso MD Electronically Signed Date/Time: 12/08/2024 3:57 AM [facility] [employer] SYSTEM Patient Name: MACHELLE MAY : 1995 Exam Date/Time: 12/08/2024 03:39 Procedure: CT ABDOMEN PELVIS W CONTRAST Ordering Provider: ALMAGUER DOUGLAS Reason For Exam: Crampy diffuse abdominal pain, especially in the epigastrium. History of GERD and IBS. Looking for gallstones? Pancreatitis? Colitis? Versus patient's known IBS issues CT ABDOMEN AND PELVIS WITH CONTRAST CLINICAL INDICATION: Crampy diffuse abdominal pain, especially in the epigastrium. History of GERD and IBS. Looking for gallstones? Pancreatitis? Colitis? Versus patient's known IBS issues. TECHNIQUE: Multi-axial 3mm sections through the abdomen and pelvis following 75 mL of Isoview contrast media. No oral contrast was administered. Coronal and sagittal reconstructions were reviewed. Dose reduction was employed with automated exposure control. COMPARISON: 08/11/2022. FINDINGS: Lower thorax: Normal. Stomach: Unremarkable. Liver: Normal size and contours. The liver demonstrates generalized diminished attenuation as compared to the spleen, which may be compatible with hepatic steatosis. No focal lesion. Biliary tree: Unremarkable gallbladder by CT. No biliary dilatation. Spleen: Normal. Adrenals: Normal. Pancreas: Normal. Kidneys: Symmetric contrast enhancement without evidence of hydronephrosis. No focal renal lesion is identified. Free air or fluid: None. Mesenteric/retroperitone al: No adenopathy or inflammation. Aorta: Normal caliber of aorta and bilateral common iliac arteries. Bowel: Normal appendix without inflammatory change in the right lower quadrant. No inflammatory change or bowel dilatation is noted. Urinary bladder: Unremarkable. Abdominal wall/soft tissues: Fat containing umbilical hernia. Pelvic organs/viscera: The uterus is present. Inguinal: No lymphadenopathy. Osseous structures: Unremarkable osseous structures. No suspicious osseous lesion. [facility] RADI[facility] SYSTEM Cayden Fregoso MD - 12/08/2024 Patient Name: MACHELLE MAY : 1995 Exam Date/Time: 12/08/2024 03:39 Procedure: CT ABDOMEN PELVIS W CONTRAST Ordering Provider: ALMAGUER DOUGLAS Reason For Exam: Crampy diffuse abdominal pain, especially in the epigastrium. History of GERD and IBS. Looking for gallstones? Pancreatitis? Colitis? Versus patient's known IBS issues CT ABDOMEN AND PELVIS WITH CONTRAST CLINICAL INDICATION: Crampy diffuse abdominal pain, especially in the epigastrium. History of GERD and IBS. Looking for gallstones? Pancreatitis? Colitis? Versus patient's known IBS issues. TECHNIQUE: Multi-axial 3mm sections through the abdomen and pelvis following 75 mL of Isoview contrast media. No oral contrast was administered. Coronal and sagittal reconstructions were reviewed. Dose reduction was employed with automated exposure control. COMPARISON: 08/11/2022. FINDINGS: Lower thorax: Normal. Stomach: Unremarkable. Liver: Normal size and contours. The liver demonstrates generalized diminished attenuation as compared to the spleen, which may be compatible with hepatic steatosis. No focal lesion. Biliary tree: Unremarkable gallbladder by CT. No biliary dilatation. Spleen: Normal. Adrenals: Normal. Pancreas: Normal. Kidneys: Symmetric contrast enhancement without evidence of hydronephrosis. No focal renal lesion is identified. Free air or fluid: None. Mesenteric/retroperitone al: No adenopathy or inflammation. Aorta: Normal caliber of aorta and bilateral common iliac arteries. Bowel: Normal appendix without inflammatory change in the right lower quadrant. No inflammatory change or bowel dilatation is noted. Urinary bladder: Unremarkable. Abdominal wall/soft tissues: Fat containing umbilical hernia. Pelvic organs/viscera: The uterus is present. Inguinal: No lymphadenopathy. Osseous structures: Unremarkable osseous structures. No suspicious osseous lesion. IMPRESSION: 1. No evidence of acute infectious or inflammatory process in the abdomen or pelvis. 2. The liver demonstrates generalized diminished attenuation as compared to the spleen, which may be compatible with hepatic steatosis; correlate with LFTs. Report Dictated on Electronically Signed By: Cayden Fregoso MD Electronically Signed Date/Time: 12/08/2024 3:57 AM EST [facility] Radiology Study observation (narrative) [facility] CT Abdomen and Pelvis W cont rast IVOrdered By: Cayden Fregoso on 12-08-2024 [facility] Work Phone: Comprehensive metabolic 1998 panelon 12-08-2024 Albumin [Mass/Vol] 4.4 g/dL 3.1 - 4.5 g/dL [facility] ALP [Catalytic activity/Vol] 66 U/L 40 - 150 U/L [facility] ALT [Catalytic activity/Vol] 15 U/L NINF - 30 U/L [facility] Anion gap [Moles/Vol] 9 mmol/L 3 - 13 mmol/L [facility] AST [Catalytic activity/Vol] 14 U/L NINF - 34 U/L [facility] Bilirubin [Mass/Vol] 0.6 mg/dL NINF - 1.2 mg/dL [facility] Calcium [Mass/Vol] 9.5 mg/dL 8.4 - 10. 2 mg/dL [facility] Chloride [Moles/Vol] 108 mmol/L High 98 - 10 7 mmol/L [facility] CO2 [Moles/Vol] 24 mmol/L 22 - 29 mmol/L [facility] Creatinine [Mass/Vol] 0.9 mg/dL 0.52 - 1.02 mg/dL [facility] GFR/1.73 sq M.predicted (S/P/Bld) [Vol rate/Area] 88.4 mL/min - PINF [facility] Comment on above: Calculation based on the Chronic Kidney Disease Epidemiology Collaboration (CKD-EPI) equation refit without adjustment for race Glucose [Mass/Vol] 94 mg/dL 74 - 100 mg/dL [facility] Interpretation and review of laboratory results Abnormal [facility] Potassium [Moles/Vol] 4.1 mmol/L 3.5 - 5.1 mmol/L [facility] Comment on above: Plasma potassium eliezer ues may be up to 0.5 mmol/L lower than serum values. Protein [Mass/Vol] 6.7 g/dL 6.4 - 8.3 g/dL [facility] Sodium [Moles/Vol] 141 mmol/L 136 - 145 mmol/L [facility] Urea nitrogen [Mass/Vol] 16 mg/dL 8 - 21 mg/dL [facility] ED Nursing Noteon 12-08-2024 ED Nursing Note Pt to ed with upper abdominal pain x3 days, nausea and diarrhea. Was seen here yesterday, not feeling any different. Pain is waking her out of her sleep Normal [facility] ED Provider Noteon ED Provider Note Normal [facility] HCG QUANTITATIVE BLOODon HCG QUANTITATIVE <2.5 Normal Females <5 [facility] Comment on above: Result Comment: YESENIA Melendez COMMENTS:Values in should double every 2 to 3 days for the first 6 weeks. Elevated concentrations of human chorionic gonadotropin (hCG) measured in the first trimester of are observed in normal , but may serve as an indication of chorionic carcinoma, hydatiform mole, or multiple . Decreasing hCG concentrations indicate threatened or missed , recent termination of , ectopic , gestosis or intrauterine . Elizabeth- and postmenopausal females may have detectable hCG concentrations (< or = to 14 mIU/mL) due to pituitary production of hCG. Serum follicle-stimulating hormone measurement may aid in ruling-out in this population. Cutoffs of greater than 20 to 45 mIU/mL have been suggested and are method dependent. False-elevations (called phantom human chorionic gonadotropin: hCG) may occur with patients who have human antianimal or heterophilic antibodies. Some specimens may not dilute linearly due to abnormal forms of hCG. Elevated hCG concentrations not associated with are found in patients with other diseases such as tumors of the germ cells, ovaries, bladder, pancreas, stomach, lungs, and liver. This test is not intended to detect or monitor tumors or gestational trophoblastic disease. Performed By: #### L AB99, LAB17, [id number], [id number] ####Fuel Oil Clerk: ALBERTINA SAUNDERS ([id number])[facility] ([facility])[address] [place] [address] LACTIC ACID WITH REFLEXon Lactate [Moles/Vol] 0.6 mmol/L Normal 0.5-2.2 [facility] Comment on above: Performed By: #### L [id number] ####Fuel Oil Clerk: ALBERTINA SAUNDERS ([id number])[facility] RIT[place]AN (SWRLAB)[address] LIPASEon 12-08-2024 Lipase [Catalytic activity/Vol] 17 U/L Normal <55 [facility] Comment on above: Performed By: #### L AB99, LAB17, [id number], [id number] ####Fuel Oil Clerk: ALBERTINA SAUNDERS ([id number])[facility] RITTM[place] (SWRLAB)[address] [place] [address] Laboratory - Chemistry and C hemistry - challengeon 12-08-2024 HCG.beta subunit Qn Females <5 mIU/mL [facility] Lipase [Catalytic activity/Vol] 17 U/L NINF - 55 U/L [facility] Magnesium [Mass/Vol] 2 mg/dL 1.6 - 2 .6 mg/dL [facility] Lactate [Moles/Vol] 0.6 mmol/L 0.5 - 2. 2 mmol/L [facility] Laboratory - Microbiology an d Antimicrobial susceptibilityon 12-08-2024 FLUAV RNA [place]+probe Ql (Resp) Not detected Not Detected [facility] FLUBV RNA [place]+probe Ql (Resp) Not detected Not Detected [facility] RSV RNA [place]+probe Ql (Resp) Not detected Not Detected [facility] SARS-CoV-2 (COVID-19) RNA [place]+probe Ql (Resp) Not detected Not Detected [facility] SARS-CoV-2 (COVID-19) RNA [place]+probe Ql (Unsp spec) Methodology: real-time, RT-PCR The SARS-CoV-2, Flu A/B, and RSV Combo assay is intended for in vitro diagnostic use under the FDA Emergency Use Authorization (EUA). This test has not been FDA cleared or approved. In compliance with this authorization, please visit www.fda.gov/media/947655 /download or www.fda.gov/media/727126 /download to access the applicable information sheets. [facility] MAGNESIUMon 12-08-2024 Magnesium [Mass/Vol] 2.0 mg/dL Normal 1.6-2.6 [facility] Comment on above: Result Comment: YESENIA Melendez COMMENTS:Higher values can be expected in females during menses. Performed By: #### L AB99, LAB17, [id number], [id number] ####Fuel Oil Clerk: ALBERTINA SAUNDERS ([id number])[facility]UL[facility]O AMADOR (SWRLAB)[address] [place] [address] Magnesium [Mass/Vol]on 12-08 Higher values can be expected in females during menses. [facility] No Panel Informationon 12-08 Interpretation and review of laboratory results Normal [facility] Values in should double every 2 to 3 days for the first 6 weeks. Elevated concentrations of human chorionic gonadotropin (hCG) measured in the first trimester of are observed in normal , but may serve as an indication of chorionic carcinoma, hydatiform mole, or multiple . Decreasing hCG concentrations indicate threatened or missed , recent termination of , ectopic , gestosis or intrauterine . Elizabeth- and postmenopausal females may have detectable hCG concentrations (< or = to 14 mIU/mL) due to pituitary production of hCG. Serum follicle-stimulating hormone measurement may aid in ruling-out in this population. Cutoffs of greater than 20 to 45 mIU/mL have been suggested and are method dependent. False-elevations (called phantom human chorionic gonadotropin: hCG) may occur with patients who have human antianimal or heterophilic antibodies. Some specimens may not dilute linearly due to abnormal forms of hCG. Elevated hCG concentrations not associated with are found in patients with other diseases such as tumors of the germ cells, ovaries, bladder, pancreas, stomach, lungs, and liver. This test is not intended to detect or monitor tumors or gestational trophoblastic disease. [facility] Interpretation and review of laboratory results Normal [facility] SARS-COV-2, FLU A/B, AND RSV COMBOon 12-08-2024 SARS-CoV-2 (COVID-19) RNA [place]+probe Ql (Unsp spec) Normal [facility] Comment on above: Performed By: #### L [id number] ####Fuel Oil Clerk: ALBERTINA SAUNDERS ([id number])[facility] CANTONBULMAROPURVI AMADOR (SWRLAB)[address] [place] [address] SARS-CoV-2, Flu A/B, and RSV Comboon 12-08-2024 Interpretation and review of laboratory results Normal [facility] Urinalysis complete panel (U )Ordered By: Rafael Daily on 12-08-2024 Bilirubin Ql (U) Negative Negative mg/dL [facility] Clarity (U) Clear Clear [facility] Color (U) Light Yellow Lt. Yellow [facility] Glucose Ql (U) Normal Normal (<70) mg/dL [facility] Hemoglobin Ql (U) Negative Negative mg/dL [facility] Interpretation and review of laboratory results Abnormal [facility] Ketones (U) [Mass/Vol] Trace Abnormal Negat tyson mg/dL [facility] Leukocyte esterase Test strip Ql (U) Negative Negative Prabhu/uL [facility] Nitrite Ql (U) Negative Negative [facility] pH (U) 5.5 [pH] 5.0 - 8.0 pH [facility] Protein (U) [Mass/Vol] Negative Negat tyson mg/dL [facility] Specific gravity (U) [Rel density] 1.021 1.005 - 1.030 [facility] Urobilinogen (U) [Mass/Vol] Normal Normal (0-1) mg/dL [facility] A specimen with <=10 WBC is not consistent with inflammation. This specimen will not reflex to a urine culture. [facility] ED Nursing Noteon 12-07-2024 ED Nursing Note Patient to room 4 wi th c/o abdominal pain for the last 3-7 days. Patient reports diarrhea, no vomiting. V/S obtained, call light within reach. Normal [facility] ED Provider Noteon ED Provider Note Normal [facility] CBC panel Auto (Bld)on 12-04 Erythrocyte distribution width (RBC) [Ratio] 11.9 % Normal 11.5-15.0 [facility] Comment on above: Order Comment: Speci men Type: BLOOD SPECIMEN [facility] Address: [address] [place] [address] Performed By: #### 2 8853-8, , [id number], 3016-3 #### [facility] CLIA [id number] [address] STATES OF [facility] Hematocrit (Bld) [Volume fraction] 41.9 % Normal 36.0-46.0 [facility] Comment on above: Order Comment: Speci men Type: BLOOD SPECIMEN Ordering Facility: [facility] Address: [address] [place] [address] Performed By: #### 2 3-8, , [id number], 3016-3 #### [facility] CLIA [id number] [address] [place] Hemoglobin (Bld) [Mass/Vol] 14.0 g/dL Normal 11.5-15.5 [facility] Comment on above: Order Comment: Speci men Type: BLOOD SPECIMEN Ordering Facility[facility] Address: [address] [place] [address] Performed By: #### 2 8, , [id number], 3016-3 #### [facility] CLIA [id number] [address] MCH (RBC) [Entitic mass] 28.5 pg Normal 26.0-34.0 [facility] Comment on above: Order Comment: Speci men Type: BLOOD SPECIMEN [facility] Facility[facility] Address: [address] [place] [address] Performed By: #### 2 3-8, , [id number], 3016-3 #### [facility] CLIA [id number] [address] [place] MCHC (RBC) [Mass/Vol] 33.4 g/dL Normal 30.5-36.0 [facility] Comment on above: Order Comment: Speci men Type: BLOOD SPECIMEN [facility]ing Facility: [facility] Address: [address] [place] [address] Performed By: #### 2 4323-8, 89593-2, [id number], 3016-3 #### [facility] CLIA [id number] [address] [facility] MCV (RBC) [Entitic vol] 85.3 fL Normal 80.0-100.0 [facility] Comment on above: Order Comment: Speci men Type: BLOOD SPECIMEN [facility] Facility[facility] Address: [address] [place] [address] Performed By: #### 2 4323-8, 92473-5, [id number], 3016-3 #### [facility] CLIA [id number] [address] [place] [address] [place] Nucleated RBC (Bld) [#/Vol] 10*3/uL Normal <0.01 [facility] Comment on above: Order Comment: Speci men Type: BLOOD SPECIMEN [facility] Address: [address] [place] [address] Performed By: #### 2 4323-8, 28988-8, [id number], 3016-3 #### [facility] CLIA [id number] [address] [place] Platelet mean volume (Bld) [Entitic vol] 10.1 fL Normal 9.0-12.7 [facility] Comment on above: Order Comment: Speci men Type: BLOOD SPECIMEN [facility] Address: [address] [place] [address] Performed By: #### 2 4323-8, 26341-2, [id number], 3016-3 #### [facility] CLIA [id number] [address] [place] Platelets (Bld) [#/Vol] 201 10*3/uL Normal 150-400 [facility] Comment on above: Order Comment: Speci men Type: BLOOD SPECIMEN [facility] Address: [address] [place] [address] Performed By: #### 2 4323-8, 04643-0, [id number], 3016-3 #### [facility] CLIA [id number] [address] [place] [address] [place] RBC (Bld) [#/Vol] 4.91 10*6/uL Normal 3.90-5.20 [facility] Comment on above: Order Comment: Speci men Type: BLOOD SPECIMEN Ordering Facility: [facility] Address: [address] [place] [address] Performed By: #### 2 4323-8, 00469-8, [id number], 3016-3 #### [facility] CLIA [id number] [address] [place] [address] [place] WBC (Bld) [#/Vol] 6.20 10*3/uL Normal 3.70-11.00 [facility] Comment on above: Order Comment: Speci men Type: BLOOD SPECIMEN Ordering Facility: [facility] Address: [address] [place] [id number] Performed By: #### 2 4323-8, 74078-7, [id number], 3016-3 #### [facility] CLIA [id number] [address] OF [facility] Comprehensive metabolic 2000 panelon 12-04-2024 Albumin [Mass/Vol] 4.8 g/dL Normal 3.9-4.9 [facility] Comment on above: Order Comment: Speci men Type: BLOOD SPECIMEN Ordering Facility: [facility] Address: [address] [place] [address] Performed By: #### 2 4323-8, 52327-8, [id number], 3016-3 #### [facility] CLIA [id number] [address] [place] ALP [Catalytic activity/Vol] 64 U/L Normal 34-123 [facility] Comment on above: Order Comment: Speci men Type: BLOOD SPECIMEN Ordering Facility[facility] Address: [address] [place] [address] Performed By: #### 2 4323-8, 96853-1, [id number], 3016-3 #### [facility] CLIA [id number] [address] ALT [Catalytic activity/Vol] 14 U/L Normal 7-38 [facility] Comment on above: Order Comment: Speci men Type: BLOOD SPECIMEN Order[facility] Address: [address] [place] [address] Performed By: #### 2 4323-8, 60111-8, [id number], 3016-3 #### [facility] CLIA [id number] [address] [place] [address] [place] Anion gap [Moles/Vol] 12 mmol/L Normal 8-15 [facility] Comment on above: Order Comment: Speci men Type: BLOOD SPECIMEN Order[facility] Address: [address] [place] [address] Performed By: #### 2 4323-8, 59782-6, [id number], 3016-3 #### [facility] CLIA [id number] [address] [place] [address] [place] AST [Catalytic activity/Vol] 20 U/L Normal 13-35 [facility] Comment on above: Order Comment: Speci men Type: BLOOD SPECIMEN Order[facility] Address: [address] [place] [address] Performed By: #### 2 4323-8, 63262-1, [id number], 3016-3 #### [facility] CLIA [id number] [address] [place] [address] [place] Bilirubin [Mass/Vol] 0.6 mg/dL Normal 0.2-1.3 [facility] Comment on above: Order Comment: Speci men Type: BLOOD SPECIMEN Order[facility] Address: [address] [place] [address] Performed By: #### 2 4323-8, 74869-7, [id number], 3016-3 #### [facility] CLIA [id number] [address] [place] [address] [place] Calcium [Mass/Vol] 9.7 mg/dL Normal 8.5-10.2 [facility] Comment on above: Order Comment: Speci men Type: BLOOD SPECIMEN Order[facility] Address: [address] [place] [address] Performed By: #### 2 4323-8, 99983-7, [id number], 3016-3 #### [facility] CLIA [id number] [address] [place] [address] [place] Chloride [Moles/Vol] 104 mmol/L Normal 98-107 [facility] Comment on above: Order Comment: Leandro murphy Type: BLOOD SPECIMEN Order[facility] Address: [address] [place] [address] Performed By: #### 2 4323-8, 36930-7, [id number], 3016-3 #### [facility] CLIA [id number] [address] [place] [address] [place] CO2 [Moles/Vol] 26 mmol/L Normal 22-30 [facility] Comment on above: Order Comment: Leandro murphy Type: BLOOD SPECIMEN [facility]ing Facility[facility] Address: [address] [place] [address] Performed By: #### 2 4323-8, , [id number], 3016-3 #### [facility] CLIA [id number] [address] [place] [address] [place] Creatinine [Mass/Vol] 0.85 mg/dL Normal 0.58-0.96 [facility] Comment on above: Order Comment: Leandro murphy Type: BLOOD SPECIMEN Ordering Facility: [facility] Address: [address] [place] [address] Performed By: #### 2 4323-8, 48802-0, [id number], 3016-3 #### [facility] CLIA [id number] [address] [place] eGFRcr SerPlBld CKD-EPI 2020 95 mL/min/1.73m??? Normal >=60 [facility] Comment on above: Order Comment: Leandro murphy Type: BLOOD SPECIMEN Ordering Facility: [facility] Address: [address] [place] [address] Result Comment: Kimberly mated Glomerular Filtration Rate (eGFR) is calculated using the 2020 CKD-EPI creatinine equation. This equation utilizes serum creatinine, sex, and age as parameters. The creatinine assay has traceable calibration to isotope dilution-mass spectrometry. Refer to KDIGO guidelines for clinical interpretation. In patients with unstable renal function, e.g. those with acute kidney injury, the eGFR may not accurately reflect actual GFR. Performed By: #### 2 4323-8, 49482-2, [id number], 3016-3 #### [facility] CLIA [id number] [address] [place] [address] [place] Glucose [Mass/Vol] 124 mg/dL High 74-99 [facility] Comment on above: Order Comment: Leandro murphy Type: BLOOD SPECIMEN [facility] Address: [address] [place] [address] Result Comment: The [place] Diabetes Association (ADA) provides guidance for cutoff values for fasting glucose and random glucose. The ADA defines fasting as no caloric intake for at least 8 hours. Fasting plasma glucose results between 100 to 125 mg/dL indicate increased risk for diabetes (prediabetes). Fasting plasma glucose results greater than or equal to 126 mg/dL meet the criteria for diagnosis of diabetes. In the absence of unequivocal hyperglycemia, results should be confirmed by repeat testing. In a patient with classic symptoms of hyperglycemia or hyperglycemic crisis, random plasma glucose results greater than or equal to 200 mg/dL meet the criteria for diagnosis of diabetes. Reference: Standards of Medical Care in Diabetes 2016, [place] [employer] Association. Diabetes Care. 2016.39(Suppl 1). Performed By: #### 2 4323-8, 99264-2, [id number], 3016-3 #### [facility] CLIA [id number] [address] [place] [address] [place] Potassium [Moles/Vol] 3.9 mmol/L Normal 3.7-5.1 [facility] Comment on above: Order Comment: Leandro murphy Type: BLOOD SPECIMEN [facility] Address: [address] [place] [address] Performed By: #### 2 3-8, 53736-3, [id number], 3016-3 #### [facility] CLIA [id number] [address] [place] [id number] [place] Protein [Mass/Vol] 7.2 g/dL Normal 6.3-8.0 [facility] Comment on above: Order Comment: Leandro umrphy Type: BLOOD SPECIMEN [facility] Facility[facility] Address: [address] [place], [place] [address] Performed By: #### 2 3-8, 10525-5, [id number], 3016-3 #### [facility] CLIA [id number] [address] [place] [address] [place] Sodium [Moles/Vol] 142 mmol/L Normal 136-144 [facility] Comment on above: Order Comment: Speci men Type: BLOOD SPECIMEN [facility] Address: [address] [place] [address] Performed By: #### 2 4323-8, 68194-3, [id number], 3016-3 #### [facility] CLIA [id number] [address] [place] Urea nitrogen [Mass/Vol] 15 mg/dL Normal 7-21 [facility] Comment on above: Order Comment: Speci men Type: BLOOD SPECIMEN [facility]ing [facility] Address: [address] [place] [address] Performed By: #### 2 4323-8, 52507-2, [id number], 3016-3 #### [facility] CLIA [id number] [address] OF [facility] ECG COMPLETEon 12-04-2024 ECG COMPLETE Ventricular Rate : 9 5 BPM Atrial Rate : 95 BPM P-R Interval : 144 ms QRS Duration : 88 ms Q-T Interval : 344 ms QTC Calculation(Bazett) : 432 ms Calculated P [place] : 69 degrees Calculated R [place] : 73 degrees Calculated T [place] : 32 degrees NORMAL SINUS RHYTHM NORMAL ECG Confirmed by TING HEARN MD ([id number]) on 12/04/2024 6:45:52 PM NAME : DULCE MARIA CARTY PID : [id number] : 1995 Gender : Female Race : ORD : [id number] Procedure Date : Dec 04 2024 14:20:56 Edit Date : Dec 04 2024 18:45:54 Diagnosis: NORMAL SINUS RHYTHM NORMAL ECG Confirmed by TING HEARN MD ([id number]) on 12/04/2024 6:45:52 PM Test Reason : Chest Pain Location : 1 : ER Overread By : TING HEARN MD Edited By : TING HEARN MD Referred By : , Acquired by : am, [facility] ED NOTEon 12-04-2024 ED NOTE HNO ID: [id number] Author: FRANCO, KEILA, RN Service: ? Author Type: Registered Nurse Type: ED Notes Filed: 12/04/2024 17:01 Note Text: PT left after triage and bloodwork. CORTES Sparks reviewed results. IV removed prior to leaving the ED. Normal [facility] ED Triage Noteon 12-04-2024 ED Triage Note HNO ID: [id number] Author: PRETTY ADRIAN DO Service: Emergency Medicine Author Type: Physician Type: ED Triage Notes Filed: 12/04/2024 14:24 Note Text: ED INTAKE NOTE Patient Name: Dulce Maria Carty Service Date: 12/04/24 BRIEF HPI: This is a 29 year old female who presents to the ED with: CP, racing heart HR 156 per watch Develops chest pain and lightheadedness Diagnosed with POTS and started metoprolol yesterday BRIEF EXAM: BP 128/84 Pulse 99 Temp (Src) 97.4 (Temporal) Resp 18 Wt 158 lb (71.7kg) SpO2 99% NAD Awake and Alert Non labored breathing INITIAL WORKUP AND DECISION MAKING: Orders Placed This Encounter CXR 2V CBC CMP Magnesium High Sensitivity Troponin T with Reflex for ED Chest Pain HCG, Qualitative, Urine ECG Provider examination performed via virtual platform with assistance from bedside clinician. SIGNATURE: Pretty Adrian DO Normal [facility] HCG Preg Ur Qlon 12-04-2024 HCG ( test) Ql (U) Negative Normal Negative [facility] Comment on above: Order Comment: Speci men Type: BLOOD SPECIMEN [facility] Address: [address] [place], [place] [address] Result Comment: This test is intended to aid in the early detection of . Very dilute urine samples, as indicated by a low specific gravity, may not contain inventory representative levels of hCG. This test detects intact hCG only. This test does not reliably detect hCG degradation products, including free-beta subunit and beta-core fragment. Therefore, this test may show reduced reactivity in urine after 8 weeks gestation. A number of conditions other than , including trophoblastic disease and certain non-trophoblastic neoplasms cause elevated levels of hCG. As with any assay employing mouse antibodies, the possibility exists for interference by human anti-mouse antibodies (HAMA) in the specimen. The test provides a presumptive diagnosis for . Performed By: #### 2 4323-8, 12098-3, [id number], 3016-3 #### [facility] CLIA [id number] [address] HIGH SENSITIVITY TROPONIN T (INITIAL)on 12-04-2024 Troponin T.cardiac High sensitivity method [Mass/Vol] <6 Normal <12 [facility] Comment on above: Order Comment: Speci men Type: BLOOD SPECIMEN [facility] Address: [address] [place] [address] Performed By: #### L [id number], 62624-8, 83802-6 #### [facility] CLIA [id number] [address] HIGH SENSITIVITY TROPONIN T (SECOND)on 12-04-2024 Troponin T.cardiac High sensitivity method [Mass/Vol] <6 Normal <12 [facility] Comment on above: Order Comment: Speci men Type: BLOOD SPECIMEN [facility] Address: [address] [place] [address] Performed By: #### 2 4323-8, 50018-4, [id number], 3016-3 #### [facility] CLIA [id number] [address] OF [facility] Magnesium SerPl-mCncon 12-04 Magnesium [Mass/Vol] 2.3 mg/dL Normal 1.7-2.3 [facility] Comment on above: Order Comment: Speci men Type: BLOOD SPECIMEN [facility] Address: [address] [place] [address] Performed By: #### L [id number], 03798-6, 05513-8 #### [facility] CLIA [id number] [address] [place] [id number] [facility] [place] XR CHEST 2V FRONTAL/LATon XR CHEST 2V FRONTAL/LAT * * *Final Repor t* * * DATE OF EXAM: Dec 04 2024 2:41PM MDX 5291 - XR CHEST 2V FRONTAL/LAT / PROCEDURE REASON: Chest Pain * * * * Physician Interpretation * * * * EXAMINATION: CHEST RADIOGRAPH (2 VIEW FRONTAL and LATERAL) CLINICAL HISTORY: Chest Pain MQ: [id number]_6 EXAM DATE/TIME: 12/04/2024 2:41 PM COMPARISON: Radiograph 10/08/2024 RESULT: Lines, tubes, and devices: None. Lungs and pleura: No focal consolidations. No pleural effusions. No pneumothorax. Cardiomediastinal silhouette: Normal cardiomediastinal silhouette. Bones and soft tissues: Unremarkable. IMPRESSION: No acute radiographic abnormality. Pocket Secretary Assembler: PSCB Transcribe Date/Time: Dec 04 2024 2:47P Dictated by : NAILA MONTERO MD This examination was interpreted and the report reviewed and electronically signed by: NAILA MONTERO MD on Dec 04 2024 2:47PM EST [id number] Normal [facility] [id number] 12-03-2024 [id number] Normal [facility] BASIC METABOLIC PANELon 10- Anion gap [Moles/Vol] 9 mmol/L Normal 3-13 [facility] Comment on above: Performed By: #### L AB106, LAB15, [id number] ####[employer]uel [employer] Clerk: ALBERTINA SAUNDERS ([id number])[facility] [employer] (SWRLAB)[address] [place] [address] [place] Calcium [Mass/Vol] 8.7 mg/dL Normal 8.4-10.2 [facility] Comment on above: Performed By: #### L AB106, LAB15, [id number] ####[employer]uel [employer] Clerk: ALBERTINA SAUNDERS ([id number])[facility] R[employer]TMAN (SWRLAB)[address] [place] [address] [place] Chloride [Moles/Vol] 109 mmol/L High 98-107 [facility] Comment on above: Performed By: #### L AB106, LAB15, [id number] ####Fuel [employer] Clerk: ALBERTINA SAUNDERS ([id number])[facility] R[place]AN (SWRLAB)[address] [place] [address] [place] CO2 [Moles/Vol] 23 mmol/L Normal 22-29 [facility] Comment on above: Performed By: #### Lola VAZQUEZ, LAB15, [id number] ####Fuel [employer] Clerk: ALBERTINA SAUNDERS ([id number])[facility] [employer]AN (SWRLAB)[address] [place] [address] [place] Creatinine [Mass/Vol] 0.88 mg/dL Normal 0.52-1.02 [facility] Comment on above: Performed By: #### Lola [id number], LAB15, [id number] ####Fuel [employer] Clerk: ALBERTINA SAUNDERS ([id number])[facility] [place]BERLAIN [employer] (SWRLAB)[address] [place] [address] GLOMERULAR FILTRATION RATE ML/MIN/1.73 SQ M.PREDICTED >90.0 Normal >60.0 [facility] Comment on above: Result Comment: Calc ulation based on the Chronic Kidney Disease Epidemiology Collaboration (CKD-EPI) equation refit without adjustment for race Performed By: #### Lola VAZQUEZ, LAB15, [id number] ####[employer]uel [employer] Clerk: ALBERTINA SAUNDERS ([id number])[facility] [employer] (SWRLAB)[address] [place] [address] [place] Glucose [Mass/Vol] 112 mg/dL High 74-100 [facility] Comment on above: Performed By: #### Lola VAZQUEZ, LAB15, [id number] ####Fuel Oil Clerk: ALBERTINA SAUNDERS ([id number])[facility] [employer] (SWRLAB)[address] [place] [address] [place] Potassium [Moles/Vol] 3.9 mmol/L Normal 3.5-5.1 [facility] Comment on above: Result Comment: [facility] potassium values may be up to 0.5 mmol/L lower than serum values. Performed By: #### Lola AB106, LAB15, [id number] ####[employer]uel [employer] Clerk: ALBERTINA SAUNDERS ([id number])[facility] [employer] (SWRLAB)[address] [place] [address] [place] Sodium [Moles/Vol] 141 mmol/L Normal 136-145 [facility] Comment on above: Performed By: #### L AB106, LAB15, [id number] ####[employer]uel [employer] Clerk: ALBERTINA SAUNDERS ([id number])[facility] JASONTMAN (SWRLAB)[address] Urea nitrogen [Mass/Vol] 16 mg/dL Normal 8-21 [facility] Comment on above: Performed By: #### L AB106, LAB15, [id number] ####[employer]uel [employer] Clerk: ALBERTINA SAUNDERS ([id number])[facility] [place]ON[employer] (SWRLAB)[address] Basic metabolic 1998 panelon 12-03-2024 Anion gap [Moles/Vol] 9 mmol/L 3 - 13 mmol/L [facility] Calcium [Mass/Vol] 8.7 mg/dL 8.4 - 10. 2 mg/dL [facility] Chloride [Moles/Vol] 109 mmol/L High 98 - 10 7 mmol/L [facility] CO2 [Moles/Vol] 23 mmol/L 22 - 29 mmol/L [facility] Creatinine [Mass/Vol] 0.88 mg/dL 0.52 - 1.02 mg/dL [facility] GFR/1.73 sq M.predicted (S/P/Bld) [Vol rate/Area] - PINF [facility] Comment on above: Calculation based on the Chronic Kidney Disease Epidemiology Collaboration (CKD-EPI) equation refit without adjustment for race Glucose [Mass/Vol] 112 mg/dL High 74 - 100 mg/dL [facility] Interpretation and review of laboratory results Abnormal [facility] Potassium [Moles/Vol] 3.9 mmol/L 3.5 - 5.1 mmol/L [facility] Comment on above: Plasma potassium eliezer ues may be up to 0.5 mmol/L lower than serum values. Sodium [Moles/Vol] 141 mmol/L 136 - 145 mmol/L [facility] Urea nitrogen [Mass/Vol] 16 mg/dL 8 - 21 mg/dL [facility] CBC W Auto Differential pane l (Bld)on 12-03-2024 Basophils (Bld) [#/Vol] 0 10*3/uL 0.0 - 0.2 10*3/uL [facility] Basophils/100 WBC (Bld) 0.6 % 0.0 - 2.0 % [facility] Eosinophils (Bld) [#/Vol] 0.1 10*3/uL 0.0 - 0.5 10*3/uL [facility] Eosinophils/100 WBC (Bld) 2.1 % 0.0 - 6.0 % [facility] Erythrocyte distribution width (RBC) [Ratio] 12 % 11.5 - 15.0 % [facility] Hematocrit (Bld) [Volume fraction] 39.9 % 35.0 - 47.0 % [facility] Hemoglobin (Bld) [Mass/Vol] 13.7 g/dL 11.7 - 16.0 g/dL [facility] Immature granulocytes (Bld) [#/Vol] 0 10*3/uL NINF - 0.1 10*3/uL [facility] Immature granulocytes/100 WBC (Bld) 0.2 % 0.0 - 2.0 % [facility] Interpretation and review of laboratory results Normal [facility] Lymphocytes (Bld) [#/Vol] 1.6 10*3/uL 1.0 - 4.3 10*3/uL [facility] Lymphocytes/100 WBC (Bld) 29.3 % 15.0 - 45.0 % [facility] MCH (RBC) [Entitic mass] 28.9 pg 26.0 - 34.0 pg [facility] MCHC (RBC) [Mass/Vol] 34.3 % 30.5 - 36.0 % [facility] MCV (RBC) [Entitic vol] 84.2 fL 77.0 - 99.0 fL [facility] Monocytes (Bld) [#/Vol] 0.4 10*3/uL 0.0 - 0.9 10*3/uL [facility] Monocytes/100 WBC (Bld) 7.3 % 5.0 - 13.0 % [facility] Neutrophils (Bld) [#/Vol] 3.2 10*3/uL 1.8 - 7.5 10*3/uL [facility] Neutrophils/100 WBC (Bld) 60.5 % 38.0 - 82.0 % [facility] Nucleated RBC/100 WBC (Bld) [Ratio] 0 % [facility] Platelet mean volume (Bld) [Entitic vol] 10.1 fL 9.0 - 12.7 fL [facility] Comment on above: MPV is a calculated measurement using platelet volume ratio Platelets (Bld) [#/Vol] 179 10*3/uL 140 - 440 10*3/uL [facility] RBC (Bld) [#/Vol] 4.74 10*6/uL 3.80 - 5.2 0 10*6/uL [facility] WBC (Bld) [#/Vol] 5.4 10*3/uL 3.6 - 10.7 10*3/uL [facility] CBC WITH AUTO DIFFERENTIALon 12-03-2024 Basophils (Bld) [#/Vol] 0.0 10*3/uL Normal 0.0-0.2 [facility] Comment on above: Performed By: #### L [id number] ####Fuel Oil Clerk: ALBERTINA SAUNDERS ([id number])[facility] [place] (SWRLAB)[address] [place] [address] [place] Basophils/100 WBC (Bld) 0.6 % Normal 0.0-2.0 [facility] Comment on above: Performed By: #### L [id number] ####Fuel Oil Clerk: ALBERTINA SAUNDERS ([id number])[facility] [employer] (SWRLAB)[address] [place] [address] [place] Eosinophils (Bld) [#/Vol] 0.1 10*3/uL Normal 0.0-0.5 [facility] Comment on above: Performed By: #### L [id number] ####Fuel [employer] Clerk: ALBERTINA SAUNDERS ([id number])[facility] [employer] (SWRLAB)[address] [place] [address] [place] Eosinophils/100 WBC (Bld) 2.1 % Normal 0.0-6.0 [facility] Comment on above: Performed By: #### L [id number] ####Fuel Oil Clerk: ALBERTINA SAUNDERS ([id number])[facility] [employer] (SWRLAB)[address] [place] [address] Erythrocyte distribution width (RBC) [Ratio] 12.0 % Normal 11.5-15.0 [facility] Comment on above: Performed By: #### L [id number] ####Fuel [employer] Clerk: ALBERTINA SAUNDERS ([id number])[facility] [employer] (SWRLAB)[address] [place] [address] Hematocrit (Bld) [Volume fraction] 39.9 % Normal 35.0-47.0 [facility] Comment on above: Performed By: #### L [id number] ####Fuel [employer] Clerk: ALBERTINA SAUNDERS ([id number])[facility] [employer] (SWRLAB)[address] [place] [address] Hemoglobin (Bld) [Mass/Vol] 13.7 g/dL Normal 11.7-16.0 [facility] Comment on above: Performed By: #### L [id number] ####Fuel [employer] Clerk: ALBERTINA SAUNDERS ([id number])[facility] [employer] [employer] (SWRLAB)[address] [place] [address] IMMATURE GRANS % 0.2 % Normal 0.0-2.0 [facility] Comment on above: Performed By: #### L [id number] ####Fuel Oil Clerk: ALBERTINA SAUNDERS ([id number])[facility] [employer] [employer] (SWRLAB)[address] [place] [address] IMMATURE GRANS ABSOLUTE 0.0 10*3/uL Normal <0.1 [facility] Comment on above: Performed By: #### L [id number] ####Fuel [employer] Clerk: ALBERTINA SAUNDERS ([id number])[facility] [employer] [employer] (SWRLAB)[address] [place] [address] [place] Lymphocytes (Bld) [#/Vol] 1.6 10*3/uL Normal 1.0-4.3 [facility] Comment on above: Performed By: #### L [id number] ####Fuel Oil Clerk: ALBERTINA SAUNDERS ([id number])[facility] [employer] [employer] (SWRLAB)[address] [place] [address] [place] Lymphocytes/100 WBC (Bld) 29.3 % Normal 15.0-45.0 [facility] Comment on above: Performed By: #### L [id number] ####Fuel Oil Clerk: ALBERTINA SAUNDERS ([id number])[facility] [employer] (SWRLAB)[address] [place] [address] MCH (RBC) [Entitic mass] 28.9 pg Normal 26.0-34.0 [facility] Comment on above: Performed By: #### L [id number] ####Fuel Oil Clerk: ALBERTINA SAUNDERS ([id number])[facility] [employer] (SWRLAB)[address] [place] [address] MCHC 34.3 % Normal 30.5-36.0 [facility] Comment on above: Performed By: #### L [id number] ####Fuel [employer] Clerk: ALBERTINA SAUNDERS ([id number])[facility] [employer] (SWRLAB)[address] [place] [address] MCV (RBC) [Entitic vol] 84.2 fL Normal 77.0-99.0 [facility] Comment on above: Performed By: #### L [id number] ####Fuel Oil Clerk: ALBERTINA SAUNDERS ([id number])[facility] [employer] [employer] (SWRLAB)[address] [place] [address] Monocytes (Bld) [#/Vol] 0.4 10*3/uL Normal 0.0-0.9 [facility] Comment on above: Performed By: #### L [id number] ####Fuel Oil Clerk: ALBERTINA SAUNEDRS ([id number])[facility] [employer] (SWRLAB)[address] [place] [address] [place] Monocytes/100 WBC (Bld) 7.3 % Normal 5.0-13.0 [facility] Comment on above: Performed By: #### L [id number] ####Fuel [employer] Clerk: ALBERTINA SAUNDERS ([id number])[facility] [employer] (SWRLAB)[address] NEUTROPHILS ABSOLUTE 3.2 10*3/uL Normal 1.8-7.5 [facility] Comment on above: Performed By: #### L [id number] ####Fuel [employer] Clerk: ALBERTINA SAUNDERS ([id number])[facility] [employer] (SWRLAB)[address] Neutrophils/100 WBC (Bld) 60.5 % Normal 38.0-82.0 [facility] Comment on above: Performed By: #### L [id number] ####Fuel [employer] Clerk: ALBERTINA SAUNDERS ([id number])[facility] [employer] (SWRLAB)[address] [place] [address] NRBC 0.0 /100 WBCs Normal 0.0-2.0 [facility] Comment on above: Performed By: #### L [id number] ####Fuel [employer] Clerk: ALBERTINA SAUNDERS ([id number])[facility] [employer] (SWRLAB)[address] [place] [address] Platelet mean volume (Bld) [Entitic vol] 10.1 fL Normal 9.0-12.7 [facility] Comment on above: Result Comment: MPV is a calculated measurement using platelet volume ratio Performed By: #### L [id number] ####Fuel [employer] Clerk: ALBERTINA SAUNDERS ([id number])[facility] [employer] [employer] (SWRLAB)[address] [place] [address] [place] Platelets (Bld) [#/Vol] 179 10*3/uL Normal 140-440 [facility] Comment on above: Performed By: #### L [id number] ####Fuel [employer] Clerk: ALBERTINA SAUNDERS ([id number])[facility] [employer] (SWRLAB)[address] [place] [address] RBC (Bld) [#/Vol] 4.74 10*6/uL Normal 3.80-5.20 [facility] Comment on above: Performed By: #### L [id number] ####Fuel Oil Clerk: ALBERTINA SAUNDERS ([id number])[facility] JASONKIRK (SWRLAB)[address] [place] [address] WBC (Bld) [#/Vol] 5.4 10*3/uL Normal 3.6-10.7 [facility] Comment on above: Performed By: #### L [id number] ####Fuel Oil Clerk: ALBERTINA SAUNDERS ([id number])[facility] MARJORIE (SWRLAB)[address] [place] [address] Consulton 12-03-2024 Consult Normal [facility] ECG 12-LEADon 12-03-2024 ECG 12-LEAD IMPRESSION: Sinus rhythm Electronically Signed On 12-03-2024 09:26:39 EDT by Roel Galaviz Normal [facility] ED Nursing Noteon 12-03-2024 ED Nursing Note Normal [facility] ED Nursing Note Labs obtained. Pt sitting upright on cot, repeatedly moving legs on bed. Pt again stating she feels like she is going to pass out. Pt is very anxious appearing. VS still stable. Pts spouse and 2 young children to bedside. Normal [facility] ED Nursing Note Call to [facility] for gyroscopic instrument mechanic/ transfer. Normal [facility] ED Nursing Note Pt pressed call butt on again, and again stating something does not feel right, she feels like she is going to pass out. VSS, IV fluids infusing without difficulty. Dr. Rios was already aware of pts c/o, and is now going to bedside to assess. Normal [facility] ED Nursing Note Normal [facility] ED Nursing Note Normal [facility] ED Provider Noteon ED Provider Note Normal [facility] HIGH SENSITIVITY TROPONIN, S ERIAL BASELINEon 12-03-2024 TROPONIN HS SERIAL BASELINE <3 Normal <=14 [facility] Comment on above: Result Comment: In i ndividuals presenting with symptoms > 2h, a baseline troponin <= 5 ng/L suggests acutecardiac injury is unlikely and further serial testing is generally not indicated. Performed By: #### L AB106, LAB15, [id number] ####[employer]uel [employer] Clerk: ALBERTINA SAUNDERS ([id number])[facility] (SWRLAB)[address] [place] [address] [place] HIGH SENSITIVITY TROPONIN, SID VELEZ TESTon 12-03-2024 2H TROPONIN HS (SERIAL 2ND TROPONIN) <3 Normal <=14 [facility] [facility] Comment on above: Result Comment: 2h t roponin (2nd troponin) samples collected between 1h 40 min and 2h and 20 min of the baseline collection time can be utilized to interpret delta troponins as per [facility] algorithms. Samples collected outside this timeframe need to be interpreted clinically.Delta value was unable to be calculated as both baseline and serial troponin tests were below the level of quantitation. As both baseline and 2h troponin values are below the level of quantitation, acute cardiac injury is unlikely. Performed By: #### L [id number] ####Fuel Oil Clerk: ALBERTINA SAUNDERS ([id number])[facility] ([facility])[address] [place] [address] NT PRO BNPon 12-03-2024 NT PRO BNP <16 Normal <105 [facility] Comment on above: Result Comment: YESENIA Melendez COMMENTS:In patients with suspected acute HF, NT-proBNP age-related cut-points are 450, 900, and 1800 pg/mL for ages <50, 50???75, and >75 years respectively.NT-proBNP concentration <300 pg/mL provides a very high NPV for HF in an acute setting, independent of age.In a non-acute setting, heart failure is unlikely with a NT-proBNP concentration <125 pg/mL while a value >600 pg/mL is likely due to heart failure.Patients with levels in the waite zone (between rule-out and rule-in levels) need extra physician attention and ancillary testing.For the unusual patient aged <50 years with severe CKD, a cut point of 1,200 ng/L for NT-proBNP would be indicated.Testing is performed on a new assay on a new instrument and values may not correlate well with previous values. Performed By: #### L AB106, LAB15, [id number] ####Fuel Oil Clerk: ALBERTINA SAUNDERS ([id number])[facility] (SW[facility])[address] [place] [address] [place] Natriuretic peptide B [Mass/ Vol]on 12-03-2024 Natriuretic peptide B (Bld) [Mass/Vol] pg/mL NINF - 105 pg/mL [employer] In patients with suspected acute HF, NT-proBNP age-related cut-points are 450, 900, and 1800 pg/mL for ages <50, 50 75, and >75 years respectively. NT-proBNP concentration <300 pg/mL provides a very high NPV for HF in an acute setting, independent of age. In a non-acute setting, heart failure is unlikely with a NT-proBNP concentration <125 pg/mL while a value >600 pg/mL is likely due to heart failure. Patients with levels in the waite zone (between rule-out and rule-in levels) need extra physician attention and ancillary testing. For the unusual patient aged <50 years with severe CKD, a cut point of 1,200 ng/L for NT-proBNP would be indicated. Testing is performed on a new assay on a new instrument and values may not correlate well with previous values. [employer] No Panel InformationOrdered By: Roel Galaviz on 12-03-2024 P [place] 54 degrees [employer] Phone: [place] Interval 149 ms [employer] Phone: QRS [place] 51 degrees [employer] Phone: QRSD Interval 96 ms [employer] Phone: QT Interval 376 ms [employer] Phone: QTC Interval 453 ms [employer] Phone: T Wave [place] 18 degrees [employer] Phone: [employer] Phone: No Panel Informationon 12-03 Sinus rhythm Electronically Signed On 12-03-2024 09:26:39 EDT by Roel Galaviz CV Roel Green MD - 12/03/2024 IMPRESSION: Sinus rhythm Electronically Signed On 12-03-2024 09:26:39 EDT by Roel Galaviz [employer] 2h Troponin HS (Serial 2nd Troponin) ng/L NINF - 14 ng/L [facility] Comment on above: 2h troponin (2nd tro ponin) samples collected between 1h 40 min and 2h and 20 min of the baseline collection time can be utilized to interpret delta troponins as per [facility] algorithms. Samples collected outside this timeframe need to be interpreted clinically. Delta value was unable to be calculated as both baseline and serial troponin tests were below the level of quantitation. As both baseline and 2h troponin values are below the level of quantitation, acute cardiac injury is unlikely. Interpretation and review of laboratory results Normal [facility] Interpretation and review of laboratory results Normal [facility] Troponin HS Serial Baseline ng/L NINF - 14 ng/L [facility] Comment on above: In individuals prese nting with symptoms > 2h, a baseline troponin <= 5 ng/L suggests acute cardiac injury is unlikely and further serial testing is generally not indicated. [facility] Nursing Noteon 12-03-2024 Nursing Note Normal [facility] Nursing Note [id number]: Pt arrived fro [facility] ED. Admission complete. Provider notified of patient's arrival. Patient oriented to room, call light within reach. Normal [facility] Vital signsOrdered By: Roel Galaviz on 12-03-2024 Heart rate 87 /min bpm [facility] Work Phone: XR Chest Single viewon 12-03 Normal chest x-ray. Report Dictated on Electronically Signed By: Danya Downing DO Electronically Signed Date/Time: 12/03/2024 3:51 AM [facility]OLOGY [facility] 1995 [id number] Exam Date/Time: 12/03/2024 03:20 Procedure: XR CHEST 1 VIEW Ordering Provider: RIOS KEVIN Reason For Exam: CHEST PAIN; Chest Pain EXAM: XR Chest, 1 View CLINICAL INDICATION: CHEST PAIN; Chest Pain TECHNIQUE: Frontal view of the chest. COMPARISON: 10/26/2024. FINDINGS: LUNGS AND PLEURAL SPACES: Unremarkable. No consolidation. No pneumothorax. HEART: Unremarkable. No cardiomegaly. MEDIASTINUM: Unremarkable. Normal mediastinal contour. BONES/JOINTS: Unremarkable. No acute fracture. [facility]Y [facility] Danya Downing DO - 12/03/2024 Patient Name: MACHELLE MAY : 1995 [facility]#: [id number] Exam Date/Time: 12/03/2024 03:20 Procedure: XR CHEST 1 VIEW Ordering Provider: RIOS KEVIN Reason For Exam: CHEST PAIN; Chest Pain EXAM: XR Chest, 1 View CLINICAL INDICATION: CHEST PAIN; Chest Pain TECHNIQUE: Frontal view of the chest. COMPARISON: 10/26/2024. FINDINGS: LUNGS AND PLEURAL SPACES: Unremarkable. No consolidation. No pneumothorax. HEART: Unremarkable. No cardiomegaly. MEDIASTINUM: Unremarkable. Normal mediastinal contour. BONES/JOINTS: Unremarkable. No acute fracture. IMPRESSION: Normal chest x-ray. Report Dictated on Electronically Signed By: Danya Downing DO Electronically Signed Date/Time: 12/03/2024 3:51 AM EDT [employer] Radiology Study observation (narrative) [employer] XR Chest Single viewOrdered By: Danya Downing on 12-03-2024 [employer] Work Phone: Tilt table studyon Addendum by Joe Paulson DO on 11/27/2024 11:47 AM EDT Passive tilt test data suggest inappropriate sinus tachycardia Active tilt test supports a Vagal mediated reaction with cardioinhibitory features and potentially vasodepressor features (which may be confounded bu the hemodynamic resopnse to NTG, although the development of hypotension 4 minutes after NTG suggests a vagal responsse). Lack of vagal mediated findings during passive tilt reduces the specificity of the findings supporting a genuine vagal mediated response during active tilt. Clinical correlation with symptoms will be required for better association. Response: cardioinhibitory and Definitely evidence of cardioinhibitory component after NTG provocation. Hypotension may have been at least in part NTG mediated vs all vasodepressor mediated. Outcome: abnormal Abnormal Passive Supine Symptoms: HR dropped to 44 BPM and junctional rhythm. No heart block. . Abnormal Active Symptoms: decrease of systolic BP to < 80 mmHg, nausea, vomiting and headache. Tilt Table Baseline supine HR: 88 bpm. Baseline supine BP: 125/78. Baseline supine rhythm/comments: dizzy, weak. Baseline supine symptoms: nausea Tilt duration while supine: 5 minutes. Tilt duration without medication: 10 minutes. Nitroglycerin given. Tilt duration with NTG = 6 minutes. Nitro was administered 15 minutes after the procedure started. After the introduction of NTG, the following symptoms were noteable: near syncope, nausea, diaphoresis, warmth, dizziness, lightheadedness and chest pain. The test was stopped due to near syncope. The Passive Tilt resulted in a steady increase in HR from resting around 85 BPM to max of 136 BPM without hypotension. Patient was symptomatic. After administration of NTG for Active Tilt, the patient developed vagal symptoms. HR briefly increased from 148 to 166 BPM, then, HR dropped to 48 BPM with sinus clifton becoming junctional rhythm. BP dropped to ezequiel of 80/44 mmHg from 133/80. Patient was feeling unwell and recovered at this point with supine positioning, Saline infusion and atropine 0.5 mg. Recovery was prompt and uneventful. NSR ensued and remained with recovery of BP back to baseline. [facility] Tilt table studyOrdered By: Joe Franco on 11-27-2024 [facility] [employer] Work Phone: Nursing Noteon 11-25-2024 Nursing Note Left voice message reviewing instructions for 's scheduled tilt table test. Normal [facility] BASIC METABOLIC PANELon 11-05 Anion gap [Moles/Vol] 8 mmol/L Normal 3-13 [facility] Comment on above: Performed By: #### L AB20, LAB15, [id number], LAB99 ####Fuel Oil Clerk: ALBERTINA SAUNDERS ([id number])[facility] [employer] ([facility])[address] [place] [address] Calcium [Mass/Vol] 9.3 mg/dL Normal 8.4-10.2 [facility] Comment on above: Performed By: #### L AB20, LAB15, [id number], LAB99 ####Fuel Oil Clerk: ALBERTINA SAUNDERS ([id number])[facility] (SWRL[facility])[address] [place] [address] [place] Chloride [Moles/Vol] 109 mmol/L High 98-107 [facility] Comment on above: Performed By: #### L AB20, LAB15, [id number], LAB99 ####Fuel Oil Clerk: ALBERTINA SAUNDERS ([id number])[facility] (SW[facility])[address] [place] [address] [place] CO2 [Moles/Vol] 23 mmol/L Normal 22-29 [facility] Comment on above: Performed By: #### L AB20, LAB15, [id number], LAB99 ####Fuel [employer] Clerk: ALBERTINA SAUNDERS ([id number])[facility] ([facility])[address] [place] [address] [place] Creatinine [Mass/Vol] 0.91 mg/dL Normal 0.57-1.11 [facility] Comment on above: Performed By: #### L AB20, LAB15, [id number], LAB99 ####Fuel Oil Clerk: ALBERTINA SAUNDERS ([phone])[facility] ([facility])[address] [place] [address] [place] GLOMERULAR FILTRATION RATE ML/MIN/1.73 SQ M.PREDICTED 87.2 mL/min/1.73m*2 Normal >60.0 [facility] Comment on above: Result Comment: Calc ulation based on the Chronic Kidney Disease Epidemiology Collaboration (CKD-EPI) equation refit without adjustment for race Performed By: #### L AB20, LAB15, [id number], LAB99 ####Fuel Oil Clerk: ALBERTINA SAUNDERS ([id number])[facility] ([facility])[address] [place] [address] [place] Glucose [Mass/Vol] 100 mg/dL Normal 74-100 [facility] Comment on above: Performed By: #### L AB20, LAB15, [id number], LAB99 ####Fuel [employer] Clerk: ALBERTINA SAUNDERS ([id number])[facility] ([facility])[address] [place] [address] [place] Potassium [Moles/Vol] 4.1 mmol/L Normal 3.5-5.1 [facility] Comment on above: Result Comment: [facility] potassium values may be up to 0.5 mmol/L lower than serum values. Performed By: #### L AB20, LAB15, [id number], LAB99 ####Fuel [employer] Clerk: ALBERTINA SAUNDERS ([id number])[facility] ([facility])[address] [place] [address] Sodium [Moles/Vol] 140 mmol/L Normal 136-145 [facility] Comment on above: Performed By: #### L AB20, LAB15, [id number], LAB99 ####Fuel [employer] Clerk: ALBERTINA SAUNDERS ([id number])[facility] ([facility])[address] [place] [address] Urea nitrogen [Mass/Vol] 10 mg/dL Normal 8-21 [facility] Comment on above: Performed By: #### L AB20, LAB15, [id number], LAB99 ####Fuel [employer] Clerk: ALBERTINA SAUNDERS ([id number])[facility] ([facility])[address] [place] [address] Basic metabolic 1998 panelon 11-23-2024 Anion gap [Moles/Vol] 8 mmol/L 3 - 13 mmol/L [facility] Calcium [Mass/Vol] 9.3 mg/dL 8.4 - 10. 2 mg/dL [facility] Chloride [Moles/Vol] 109 mmol/L High 98 - 10 7 mmol/L [facility] CO2 [Moles/Vol] 23 mmol/L 22 - 29 mmol/L [facility] Creatinine [Mass/Vol] 0.91 mg/dL 0.57 - 1.11 mg/dL [facility] GFR/1.73 sq M.predicted (S/P/Bld) [Vol rate/Area] 87.2 mL/min - PINF [facility] Comment on above: Calculation based on the Chronic Kidney Disease Epidemiology Collaboration (CKD-EPI) equation refit without adjustment for race Glucose [Mass/Vol] 100 mg/dL 74 - 100 mg/dL [facility] Interpretation and review of laboratory results Abnormal [facility] Potassium [Moles/Vol] 4.1 mmol/L 3.5 - 5.1 mmol/L [facility] Comment on above: Plasma potassium eliezer ues may be up to 0.5 mmol/L lower than serum values. Sodium [Moles/Vol] 140 mmol/L 136 - 145 mmol/L [facility] Urea nitrogen [Mass/Vol] 10 mg/dL 8 - 21 mg/dL [facility] C-REACTIVE PROTEINon 025 CRP [Mass/Vol] mg/L Normal <5.0 [facility] Comment on above: Performed By: #### L [id number] ####Fuel Oil Clerk: ALBERTINA SAUNDERS ([id number])[facility] ([facility])[address] [place] [address] COMPLETE URINALYSIS WITH REF STEVE TO CULTUREon 11-23-2024 BILIRUBIN, TOTAL PRESENCE IN URINE Negative Normal Negative [facility] Comment on above: Performed By: #### L [id number] ####Fuel Oil Clerk: ALBERTINA SAUNDERS ([id number])[facility] ([facility])[address] [place] [address] Clarity (U) Clear Normal Clear [facility] Comment on above: Performed By: #### L [id number] ####Fuel Oil Clerk: ALBERTINA SAUNDERS ([id number])[facility] BETANCOURTBULMARO [facility] (SWRLAB)[address] [place] [address] Color (U) Colorless Normal Lt. Yellow [facility] Comment on above: Performed By: #### L [id number] ####Fuel Oil Clerk: ALBERTINA SAUNDERS ([id number])[facility] ([facility])[address] [place] [address] [place] GLUCOSE (MG/DL) IN URINE Normal Normal Normal (<70) [facility] Comment on above: Performed By: #### L [id number] ####Fuel Oil Clerk: ALBERTINA SAUNDERS ([id number])[facility] [place] ([facility])[address] [place] [address] [place] HEMOGLOBIN PRESENCE IN URINE Negative Normal Negative [facility] Comment on above: Performed By: #### L [id number] ####Fuel Oil Clerk: ALBERTINA SAUNDERS ([id number])[facility] ([facility])[address] [place] [address] Ketones Ql (U) Negative Normal Negative [facility] Comment on above: Performed By: #### L [id number] ####Fuel Oil Clerk: ALBERTINA SAUNDERS ([id number])[facility] ([facility])[address] [place] [address] LEUKOCYTE ESTERASE PRESENCE IN URINE BY TEST STRIP Negative Normal Negative [facility] Comment on above: Performed By: #### L [id number] ####Fuel Oil Clerk: ALBERTINA SAUNDERS ([id number])[facility] ([facility])[address] [place] [address] NITRITE PRESENCE IN URINE Negative Normal Negative [facility] Comment on above: Performed By: #### L [id number] ####Fuel [employer] Clerk: ALBERTINA SAUNDERS ([id number])[facility] ([facility])[address] [place] [address] pH (U) 7.5 [pH] Normal 5.0-8.0 [facility] Comment on above: Performed By: #### L [id number] ####Fuel Oil Clerk: ALBERTINA SAUNDERS ([id number])[facility] ([facility])[address] [place] [address] Protein (U) [Mass/Vol] Negative Normal Negative [facility] Comment on above: Performed By: #### L [id number] ####Fuel Oil Clerk: ALBERTINA SAUNDERS ([id number])[facility] ([facility])[address] [place] [address] Specific gravity (U) [Rel density] 1.008 Normal 1.005-1.030 [facility] Comment on above: Result Comment: ORDE R COMMENTS:A specimen with <=10 WBC is not consistent with inflammation. This specimen will not reflex to a urine culture. Performed By: #### L [id number] ####Fuel [employer] Clerk: ALBERTINA SAUNDERS ([id number])[facility] ([facility])[address] [place] [address] UROBILINOGEN (MG/DL) IN URINE Normal Normal Normal (0-1) [facility] Comment on above: Performed By: #### L [id number] ####Fuel Oil Clerk: ALBERTINA SAUNDERS ([id number])[facility] ([facility])[address] [place] [address] CRP [Mass/Vol]on 11-23-2024 Interpretation and review of laboratory results Normal [facility] D-DIMER,QUANTITATIVEon 11-23 D-DIMER, INNOVANCE <0.19 Normal <0.50 [facility] Comment on above: Result Comment: ORDE R COMMENTS:[employer] D-Dimer values of <0.50 mg/L FEU can be used in combination with a pre-test probability model (e.g. Well's) to exclude pulmonary embolism (PE) disease, as well as an aid in the diagnosis of deep vein thrombosis (DVT). Performed By: #### L [id number] ####[employer]uel [employer] Clerk: ALBERTINA SAUNDERS ([id number])[facility] ([facility])[address] [place] [address] ED Provider Noteon ED Provider Note Normal [facility] Fibrin D-dimer FEU (PPP) [Ma ss/Vol]Ordered By: Nancy Trinidad on 11-23-2024 Interpretation and review of laboratory results Normal [facility] Innovance D-Dimer va lues of <0.50 mg/L FEU can be used in combination with a pre-test probability model (e.g. Well's) to exclude pulmonary embolism (PE) disease, as well as an aid in the diagnosis of deep vein thrombosis (DVT). [facility] HEPATIC FUNCTION PANELon Albumin [Mass/Vol] 4.1 g/dL Normal 3.5-5.0 [facility] Comment on above: Performed By: #### L AB20, LAB15, [id number], LAB99 ####Fuel Oil Clerk: ALBERTINA SAUNDERS ([id number])[facility] ([facility])[address] [place] [address] ALP [Catalytic activity/Vol] 55 U/L Normal 40-150 [facility] Comment on above: Performed By: #### L AB20, LAB15, [id number], LAB99 ####Fuel Oil Clerk: ALBERTINA SAUNDERS ([id number])[facility] (SWRL[facility])[address] [place] [address] ALT [Catalytic activity/Vol] 9 U/L Normal <30 [facility] Comment on above: Performed By: #### L AB20, LAB15, [id number], LAB99 ####[employer]uel [employer] Clerk: ALBERTINA SAUNDERS ([id number])[facility] (SWRL[facility])[address] [place] [address] [place] AST [Catalytic activity/Vol] 15 U/L Normal <34 [facility] Comment on above: Performed By: #### L AB20, LAB15, [id number], LAB99 ####Fuel Oil Clerk: ALBERTINA SAUNDERS ([id number])[facility] ([facility])[address] [place] [address] [place] Bilirubin [Mass/Vol] 0.6 mg/dL Normal <1.2 [facility] Comment on above: Performed By: #### L AB20, LAB15, [id number], LAB99 ####Fuel Oil Clerk: ALBERTINA SAUNDERS ([id number])[facility] ([facility])[address] [place] [address] [place] Bilirubin.indirect [Mass/Vol] 0.2 mg/dL Normal <0.5 [facility] Comment on above: Performed By: #### L AB20, LAB15, [id number], LAB99 ####Fuel Oil Clerk: ALBERTINA SAUNDERS ([id number])[facility] ([facility])[address] Protein [Mass/Vol] 6.7 g/dL Normal 6.4-8.3 [facility] Comment on above: Result Comment: Seru m protein values are higher than plasma values. Samples from recumbent persons are lower by up to 0.5 g/dL as compared to ambulatory persons. After 60 years values are lower by up to 0.2 g/dL. Performed By: #### L AB20, LAB15, [id number], LAB99 ####[employer]uel [employer] Clerk: ALBERTINA SAUNDERS ([id number])[facility] (SW[facility])[address] [place] [address] Hepatic function 2000 panelo n 11-23-2024 Albumin [Mass/Vol] 4.1 g/dL 3.5 - 5.0 g/dL [facility] ALP [Catalytic activity/Vol] 55 U/L 40 - 150 U/L [facility] [employer] ALT [Catalytic activity/Vol] 9 U/L [facility] - 30 U/L [facility] AST [Catalytic activity/Vol] 15 U/L [facility] - 34 U/L [facility] Bilirubin [Mass/Vol] 0.6 mg/dL [facility] - 1.2 mg/dL [facility] Bilirubin.conjugated [Mass/Vol] 0.2 mg/dL [facility] - 0.5 mg/dL [facility] Protein [Mass/Vol] 6.7 g/dL 6.4 - 8.3 g/dL [facility] Comment on above: Serum protein values are higher than plasma values. Samples from recumbent persons are lower by up to 0.5 g/dL as compared to ambulatory persons. After 60 years values are lower by up to 0.2 g/dL. LIPASEon 11-23-2024 Lipase [Catalytic activity/Vol] 14 U/L Normal <55 [facility] Comment on above: Performed By: #### L AB20, LAB15, [id number], LAB99 ####[employer]uel [employer] Clerk: ALBERTINA SAUNDERS ([id number])[facility] ([facility])[address] [place] [address] Laboratory - Chemistry and C hemistry - challengeon 11-23-2024 TSH Qn 0.47 m[IU]/L [facility] CRP [Mass/Vol] mg/L [facility] - 5.0 mg/L [facility] Lipase [Catalytic activity/Vol] 14 U/L [facility] - 55 U/L [facility] Laboratory - CoagulationOrde red By: Nancy Trinidad on 11-23-2024 Fibrin D-dimer FEU (PPP) [Mass/Vol] mg/L [facility] - 0.50 mg/L [facility] No Panel Informationon 11-23 Interpretation and review of laboratory results Normal [facility] PORPHYRINS, FRACTIONATED, QU ANTITATIVE, RANDOM URINE ([facility]KR [facility])on 11-23-2024 [facility] COPROPORPHYRIN I 31.0 Normal 6.5-33.2 [facility] Comment on above: Result Comment: Unit s: mcg/g creat Performed By: #### L [id number] ####[facility] ([employer])[address] [place], [place] [facility] COPROPORPHYRIN III 71.1 Normal 4.8-88.6 [facility] Comment on above: Result Comment: Unit s: mcg/g creat Performed By: #### L [id number] ####[facility] ([employer])[address] [place], [place] [facility] HEPTACARBOXYPORPHYRIN SEE BELOW Normal < OR = 3.4 [facility] Comment on above: Result Comment: Unit s: mcg/g creatResult is below reportable range for this analyte. Performed By: #### L AB433 ####[facility] ([employer])[address] [place], [place] [facility] HEXACARBOXYPORPHYRIN SEE BELOW Normal < OR = 6.3 [facility] Comment on above: Result Comment: Unit s: mcg/g creatResult is below reportable range for this analyte. Performed By: #### L [id number] ####[facility] ([employer])[address] [place] [facility] INTERPRETATION SEE BELOW Normal [facility] Comment on above: Result Comment: All porphyrins tested were within the normalrange.This test may not detect elevated porphyrins ifthe patient is asymptomatic or is undergoingtreatment.Please be aware that some porphyrins degrade whensamples are unprotected from light or aretransported at refrigerated or ambienttemperature.Results reported as below reportable range areconsidered normal as there are no associationsbetween low porphyrin levels and porphyrindisorders.Interpretation reviewed by: Sriram Floyd MD, [facility]. IF THE ORDERING/TREATING PHYSICIAN HASANY QUESTIONS REGARDING THESE RESULTS, PLEASECONTACT THE [email or web address]OCHEM[employer] GENETICSLABORATORY AT ext [phone] or ext [phone] ASK TO SPEAK WITH THE SETTER COLD ROLLING MACHINE YULI. FOR GENERAL QUESTIONS ABOUT [employer] GENETIC TESTING, PLEASE CALL THE [employer]ENE[employer] LINE AT [phone] Pharma.For additional information, please refer [email or web address].[employer]/faq/TJF361(This link is being provided forinformational/educational purposes only.)This test was developed and its analyticalperformance characteristics have been determinedby [employer]. It has not been cleared orapproved by the FDA. This assay has been validatedpursuant to the CLIA regulations and is used forclinical purposes.Test performed by [facility] [address] [place] [id number] [employer] Director: Starla Ba MD,PHD,MBATest Reported by [facility],[address] [place], [place] [address]Yefysdtajzz Tolliver M.D., Ph.D., Director of [phone], CLIA [id number] Performed By: #### L AB433 ####[employer] (American TeleCareBEAKER)[address] [place], [place] [facility] PENTACARBOXYPORPHYRIN SEE BELOW Normal < OR = 4.1 [facility] Comment on above: Result Comment: Unit s: mcg/g creatResult is below reportable range for this analyte. Performed By: #### L AB433 ####[facility] (AMDBEAKER)[address] [place], [place] [facility] TOTAL PORPHYRINS 119.0 Normal 27.0-153.6 [facility] Comment on above: Result Comment: Unit s: mcg/g creat Performed By: #### L AB433 ####[facility] (AMDBEAKER)[address] [place] [facility] UROPORPHYRIN I 12.4 Normal 3.6-21.1 [facility] Comment on above: Result Comment: Unit s: mcg/g creat Performed By: #### L AB433 ####[facility] (American TeleCareBESeven10 Storage Software)[address] [place] [facility] UROPORPHYRIN III 4.5 Normal < OR = 5.6 [facility] Comment on above: Result Comment: Unit s: mcg/g creat Performed By: #### L AB433 ####[facility] ([employer])[address] [place] [facility] THYROID STIMULATING HORMONEo n 11-23-2024 THYROID STIMULATING HORMONE 0.47 uIU/mL Normal 0.35-4.94 [facility] Comment on above: Performed By: #### L AB20, LAB15, UYQ330, LAB99 ####[employer]uel [employer] Clerk: ALBERTINA SAUNDERS ([id number])[facility] (SWRLAB)[address] [place] [address] TSH Qnon 11-23-2024 Interpretation and review of laboratory results Normal [facility] Urinalysis complete panel (U )on 11-23-2024 Bilirubin Ql (U) Negative Negative mg/dL [facility] Clarity (U) Clear Clear [facility] Color (U) Colorless Lt. Yellow [facility] Glucose Ql (U) Normal Normal (<70) mg/dL [facility] Hemoglobin Ql (U) Negative Negative mg/dL [facility] Interpretation and review of laboratory results Normal [facility] Ketones (U) [Mass/Vol] Negative Negat tyson mg/dL [facility] Leukocyte esterase Test strip Ql (U) Negative Negative Prabhu/uL [facility] Nitrite Ql (U) Negative Negative [facility] pH (U) 7.5 [pH] 5.0 - 8.0 pH [facility] Protein (U) [Mass/Vol] Negative Negat tyson mg/dL [facility] Specific gravity (U) [Rel density] 1.008 1.005 - 1.030 [facility] Urobilinogen (U) [Mass/Vol] Normal Normal (0-1) mg/dL [facility] A specimen with <=10 WBC is not consistent with inflammation. This specimen will not reflex to a urine culture. [facility] XR Chest View and Abdomen Prince Tk 11-23-2024 Linear metallic dens ity overlying the left mid abdomen at the level of L2 on L3. No correlate is seen on the prior CT from 2022. Clinical correlation is suggested. Report Dictated on Electronically Signed By: Hung Hou MD Electronically Signed Date/Time: 11/23/2024 9:29 AM EDT [facility] Patient Name: MACHELLE MAY : 1995 Exam Date/Time: 11/23/2024 08:46 Procedure: XR ABDOMEN 2 VIEWS WITH CHEST 1 VIEW Ordering Provider: DANIELLE NISHIT Reason For Exam: abdominal pain Clinical indication: Evaluate for foreign body. COMPARISON: None. TECHNIQUE: AP radiograph of the chest along with AP and lateral views of the abdomen. FINDINGS: The lungs are clear with no acute infiltrate or effusion. Trachea is midline. No pneumothorax. Heart size and mediastinal contours are normal. Pulmonary vascularity is normal. The osseous structures are unremarkable. There is a nonobstructive bowel gas pattern. A linear radiopaque metallic density is seen overlying the left abdomen at the level of L2-L3. There is no correlate to this finding on the prior CT from 2022. There are minimal degenerative changes of the lumbar spine. [facility] Ernestine Hou MD - 11/23/2024 Patient Name: MACHELLE MAY : 1995 Exam Date/Time: 11/23/2024 08:46 Procedure: XR ABDOMEN 2 VIEWS WITH CHEST 1 VIEW Ordering Provider: DANIELLE NISHIT Reason For Exam: abdominal pain Clinical indication: Evaluate for foreign body. COMPARISON: None. TECHNIQUE: AP radiograph of the chest along with AP and lateral views of the abdomen. FINDINGS: The lungs are clear with no acute infiltrate or effusion. Trachea is midline. No pneumothorax. Heart size and mediastinal contours are normal. Pulmonary vascularity is normal. The osseous structures are unremarkable. There is a nonobstructive bowel gas pattern. A linear radiopaque metallic density is seen overlying the left abdomen at the level of L2-L3. There is no correlate to this finding on the prior CT from 2022. There are minimal degenerative changes of the lumbar spine. IMPRESSION: Linear metallic density overlying the left mid abdomen at the level of L2 on L3. No correlate is seen on the prior CT from 2022. Clinical correlation is suggested. Report Dictated on Electronically Signed By: Hung Hou MD Electronically Signed Date/Time: 11/23/2024 9:29 AM EDT [facility] Radiology Study observation (narrative) [facility] XR Chest View and Abdomen [place] pine and UprightOrdered By: Ernestine Hou on 11-23-2024 [facility] Work Phone: [phone] 11-20-2024 [id number] To Provider for review/advise. Normal [facility] [id number] 11-18-2024 [id number] HNO ID: [id number] Author: BEE DE RN Service: ? Author Type: Registered Nurse Type: [id number] Filed: 11/18/2024 12:37 Note Text: The patient received a copy of EGD discharge instructions that contain information for how to contact the physician who performed the procedure and when to seek medical care. Normal [facility] ANES POSTPROC EVALon 025 ANES POSTPROC EVAL HNO ID: [id number] Author: AMANDA CALDERON APRN.FERNANDO Service: ? Author Type: Nurse Cardiac Monitor Type: Anesthesia Postprocedure Evaluation Filed: 11/18/2024 12:39 Note Text: POST ANESTHESIA EVALUATION NOTE : 1995 Procedure Summary Date: 11/18/24 Room / Location: Ambulatory Surgery Anesthesia Start: 1213 Anesthesia Stop: 1234 Procedure: EGD DIAGNOSTIC Diagnosis: Bloating Belching Upper abdominal pain Scheduled Providers: Elizabet Oneill MD Responsible Provider: Asya Garcia APRN.CRNA Anesthesia Type: MAC ASA Status: 2 Anesthesia Type: MAC Last Vitals Vitals Value Taken Time BP 97/57 11/18/24 12:34 Temp 36.4 ?C (97.6 ?F) 11/18/24 12:34 Pulse 83 11/18/24 12:34 Resp 16 11/18/24 12:34 SpO2 100 % 11/18/24 12:34 Post Anesthesia Patient Status Patient Evaluation: PACU. PACU/ICU Patient Condition: stable. Anticipated Disposition: phase 2 then home. Neurological Status: sleepy but arousable. Pulmonary Status: breathing comfortably on room air Airway Control: returned to baseline unsupported. Cardiovascular Status: stable. Pain Management: clinically adequate - multimodal analgesia pain management approach Postoperative Hydration: acceptable. Intraoperative Events: no significant anesthesia events Post Operative Nausea/Vomiting Status: no significant post operative nausea or vomiting Recommendation: continue current plan of care. Anesthesia Observations No Documentation SIGNATURE: Amanda Calderon APRN.FINANCE EFFECTIVENESS MANAGER PATIENT NAME: Maynaomi DATE: November 18, 2024 TIME: 12:39 PM CSN: [id number] Normal [facility] ANES PRE-OPon 11-18-2024 ANES PRE-OP HNO ID: [id number] Author: ASYA GARCIA APRN.CRNA Service: Anesthesiology Author Type: Nurse Cardiac Monitor Type: Anesthesia Preprocedure Evaluation Filed: 11/18/2024 12:13 Note Text: ANESTHESIOLOGY DAY OF SURGERY NOTE : 1995 Procedure Information Date/Time: 11/18/24 1045 Scheduled providers: Elizabet Oneill MD Procedure: EGD DIAGNOSTIC Location: Ambulatory Surgery Estimated body mass index is 25.34 kg/m? as calculated from the following: Height as of this encounter: 167.6 cm (5' 6"). Weight as of this encounter: 71.2 kg (157 lb). Most recent hematocrit and potassium results: Hematocrit 42.0 10/09/2024 Potassium 4.1 10/09/2024 Relevant Problems NEURO-PSYCH (+) Pressure in head I - PHYSICAL EVALUATION AIRWAY Patient intubated: No. Tracheostomy tube not present Mallampati: II. TM distance: >3 FB. Neck ROM: full ROM without neurological symptoms. Mouth opening: >3 FB. Short neck: no. Thick neck: no DENTAL Dental findings: teeth intact. Additional exam findings: no II - ANESTHESIA PLAN ASA Score: 2 Anesthetic Plan: MAC The patient is not a current smoker. NPO Status: adequate Monitoring Plan Monitoring plan: standard ASA. Post Procedure Analgesic Plan Postoperative analgesic plan: parenteral or oral opioids and multimodal analgesia. Informed Consent Anesthetic risks, benefits, alternatives, personnel and consent discussed: yes. Patient / Responsible Green Party agrees to proceed: yes Patient / Surrogate agrees to blood products: blood products not planned Significant changes in the patient condition since the History and Physical, not otherwise documented in primary service progress note: no. Potential Anesthesia issues that may suggest increased risk of complications or contraindication to planned procedure: none. Discussed the possibility of lip / dental damage: yes Vitals Value Taken Time BP 137/81 11/18/24 11:44 Pulse 82 11/18/24 11:44 Resp 18 11/18/24 11:44 Temp 36.7 ?C (98.1 ?F) 11/18/24 11:44 SpO2 97 % 11/18/24 11:44 Outpatient Medications as of 11/18/2024 Medication Sig - sucralfate (CARAFATE) 100 mg/mL suspension Take 10 mL by mouth before meals and at bedtime. - hyoscyamine sublingual (LEVSIN/SL) 0.125 mg Dissolve 1 tablet under the tongue every 4 hours as needed (abdominal pain). - pantoprazole DR (PROTONIX) 20 mg tablet Take 20 mg by mouth. Facility-Administered Medications as of 11/18/2024 Medication Dose Route Frequency - lidocaine (PF) 10 mg/mL (1 %) 1-2 mg injection (XYLOCAINE) 0.1-0.2 mL INTRADERMAL PRN - lactated ringers iv infusion 30 mL/hr INTRAVENOUS CONTINUOUS I have interviewed and examined the patient. I have reviewed the medical record and/or the pre-anesthesia evaluation, pertinent labs, and test results. This contains updated information obtained within 48 hours of Surgery/Procedure. SIGNATURE: Asya Garcia APRN.CRNA PATIENT NAME: Maynaomi DATE: November 18, 2024 TIME: 12:13 PM CSN: [id number] Normal [facility] NURSING PROGon 11-18-2024 NURSING PROG HNO ID: [id number] Author: BEE DE, GEREMIAS Service: Nursing Author Type: Registered Nurse Type: Nursing Progress Note Filed: 11/18/2024 12:38 Note Text: POST OP LEARNING RESPONSE INSTRUCTION PROVIDED TO: Patient METHOD OF INSTRUCTION: Written instruction/Handouts Verbal instruction PATIENT / FAMILY RESPONSE: Verbalizes understanding of: POST-PROCEDURE INSTRUCTIONS-Correct actions to take to reduce post procedure complications FOLLOW-UP PLAN: Complete - No need for follow-up SUPPLEMENTAL MATERIAL: None REFERRAL (RECOMMENDATION): None Electronically Signed By: Bee De RN In Department: AMBULATORY SURGERY Normal [facility] NURSING PROG HNO ID: [id number] Author: INGA DYKES RN Service: ? Author Type: Registered Nurse Type: Nursing Progress Note Filed: 11/18/2024 11:42 Note Text: PRE OP LEARNING ASSESSMENT PROCEDURE/SURGERY: GI PROCEDURES: EGD READINESS TO LEARN COGNITIVE ABILITY: Alert and oriented MOTIVATION TO LEARN: Interested FAMILY SUPPORT: In waiting room PATIENT LEARNS BEST BY: Verbal Instruction FACTORS AFFECTING LEARNING: None PHYSICAL LIMITATIONS AFFECTING LEARNING: None Electronically Signed By: Inga Dykes RN In Department: AMBULATORY SURGERY Normal [facility] Pathology biopsy report Kale (Tiss)on 11-18-2024 AP DISCLAIMER Normal [facility] Comment on above: Order Comment: Speci men Type: TISSUE SPECIMENOrdering Facility: [facility] Address: [address] [place] [address] Result Comment: Madai Schwartz Test (LDT) Disclaimer: Performance characteristics of immunohistochemical, immunofluorescent, and chromogenic in-situ hybridization tests have been determined by the performing laboratory within the [facility] Department of Pathology and Laboratory Medicine ([facility], [facility], [facility], [facility], [facility], [facility], or [facility]) in a manner consistent with CLIA requirements. One or more of these tests may not have been cleared or approved by the FDA. The [facility] Department of Pathology and Laboratory Medicine is regulated under CLIA as qualified to perform high-complexity testing. These tests are used for clinical purposes. These should not be regarded as investigational or for research. Positive and negative controls stain appropriately. Performed By: #### 6 6121-5 ####[facility] LABORATORYCLIA [id number] [address] MAIN LABCLIA [id number] [address] [place] CASE REPORT Normal [facility] Comment on above: Order Comment: Speci men Type: TISSUE SPECIMENOrdering Facility: [facility] Address: [address] [place] [address] Result Comment: Surg [facility] Pathology Report Case: [id number] Authorizing Provider: Elizabet Oneill MD Collected: 11/18/2024 12:21 PM Ordering Location: Ambulatory Surgery Received: 11/18/2024 07:25 PM Pathologist: Dameon Valencia MD Specimens: A) - Small Bowel, Duodenum, Biopsy, r/o celiac sprue B) - Stomach, Antrum, Biopsy, r/o h. pylori C) - Esophagus, Distal, Biopsy, r/o EoE D) - Esophagus, Proximal, Biopsy, r/o EoE Performed By: #### 6 6121-5 ####LISA LABORATORYCLIA [id number] [address] MAIN LABCLIA [id number] [address] [place] CLINICAL HISTORY Normal [facility] Comment on above: Order Comment: Leandro murphy Type: TISSUE SPECIMENOrdering Facility: [facility] Address: [address] [place] [address] Result Comment: Asso ciated Diagnoses: R14.0 - Bloating R14.2 - Belching R10.10 - Upper abdominal pain Performed By: #### 6 6121-5 ####[facility] LABORATORYCLIA [id number] [address] MAIN LABCLIA [id number] [place] [address] [place] DIAGNOSIS COMMENT H. pylori immunostai n performed on the stomach biopsy (part B) to evaluate the chronic gastritis is negative for organisms. Normal [facility] Comment on above: Order Comment: Speci men Type: TISSUE SPECIMENOrdering Facility: [facility] Address: [address] [place] [address] Performed By: #### 6 6121-5 ####[facility] LABORATORYCLIA [id number] [address] MAIN LABCLIA [id number] [address] FINAL DIAGNOSIS Normal [facility] Comment on above: Order Comment: Speci men Type: TISSUE SPECIMENOrdering Facility: [facility] Address: [address] [place] [address] Result Comment: A. S mall bowel, biopsy: - Small bowel mucosa with no significant pathologic changes. B. Stomach, biopsy: - Antral mucosa with mild chronic inactive gastritis. - See comment. C. Distal esophagus, biopsy: - Squamous mucosa with no significant pathologic changes. D. Proximal esophagus, biopsy: - Squamous mucosa with no significant pathologic changes. at 1031 EDT Performed By: #### 6 6121-5 ####[facility] LABORATORYCLIA [id number] [address] LABCLIA [id number] [address] FINAL PERFORMING LAB Normal [facility] Comment on above: Order Comment: Speci men Type: TISSUE SPECIMENOrdering Facility: [facility] Address: [address] [place] [address] Result Comment: Diag nostic interpretation performed at: [facility], [address] [address] CLIA# [id number] Reliability Technicians: Ursula Escobar MD Performed By: #### 6 6121-5 ####[facility] LABORATORYCLIA [id number] [address] MAIN LABCLIA [id number] OF [facility] GROSS DESCRIPTION Normal [facility] Comment on above: Order Comment: Speci men Type: TISSUE SPECIMENOrdering Facility: [facility] Address: [address] [place] [address] Result Comment: A. S mall Bowel, Duodenum, Biopsy Received in formalin are multiple pieces of blair, soft tissue aggregating to 2.0 x 0.2 x 0.2 cm. Totally submitted in one cassette. B. Stomach, Antrum, Biopsy Received in formalin are two pieces of blair, soft tissue aggregating to 0.8 x 0.3 x 0.1 cm. Totally submitted in one cassette. C. Esophagus, Distal, Biopsy Received in formalin are multiple pieces of blair-white, soft tissue aggregating to 1.1 x 0.2 x 0.1 cm. Totally submitted in one cassette. D. Esophagus, Proximal, Biopsy Received in formalin are two pieces of blair-white, soft tissue aggregating to 0.7 x 0.2 x 0.1 cm. Totally submitted in one cassette. FFS November 18, 2024 9:08 PM Gross examination performed at [facility] Main Lab, [address] [place] [address] Performed By: #### 6 6121-5 ####[facility] LABORATORYCLIA [id number] [address] STATES OF [facility] LABCLIA [id number] [address] OF [facility] Upper GI endoscopy 10-14-2 025 Upper GI endoscopy [facility] Patient Name: May Machelle Procedure Date: 11/18/2024 12:12 PM Date of : 1995 Admit Type: Outpatient Age: 29 Room: [place] [address] Gender: Female Note Status: Finalized Attending MD: Elizabet Oneill MD, [id number] Procedure: Upper GI endoscopy Indications: Dysphagia, Heartburn, Abdominal bloating; family history of celiac disease, personal history of low IgA level Providers: Elizabet Oneill MD Patient Profile: Refer to note in patient chart for documentation of history and physical. Referring Physician: Tariq Singleton (Referring MD) Medicines: Monitored Anesthesia Care, See the Anesthesia note for documentation of the administered medications Complications: No immediate complications. Estimated blood loss: Minimal. Requesting Provider: Procedure: Pre-Anesthesia Assessment: - Prior to the procedure, a History and Physical was performed, and patient medications and allergies were reviewed. The patient's tolerance of previous anesthesia was also reviewed. The risks and benefits of the procedure and the sedation options and risks were discussed with the patient. All questions were answered, and informed consent was obtained. Prior Anticoagulants: The patient has taken no anticoagulant or antiplatelet agents. ASA Grade Assessment: See anesthesia record. After reviewing the risks and benefits, the patient was deemed in satisfactory condition to undergo the procedure. After obtaining informed consent, the endoscope was passed under direct vision. Throughout the procedure, the patient's blood pressure, pulse, and oxygen saturations were monitored continuously. The Endoscope was introduced through the mouth, and advanced to the third part of duodenum. I was present and participated during the entire procedure, including non-ordaz portions, and during the administration and monitoring of Moderate Sedation. The upper GI endoscopy was accomplished without difficulty. The patient tolerated the procedure well. Moderate Sedation: MAC anesthesia was administered by the anesthesia team. Findings: The Z-line was regular and was found 39 cm from the incisors. The examined esophagus was normal. Biopsies were obtained from the proximal and distal esophagus with cold forceps for histology of suspected eosinophilic esophagitis. The pathology specimen was placed into Bottle Number 3. The pathology specimen was placed into Bottle Number 4. The entire examined stomach was normal. Biopsies were taken with a cold forceps for histology. The pathology specimen was placed into Bottle Number 2. The cardia and gastric fundus were normal on retroflexion. The duodenal bulb, second portion of the duodenum and third portion of the duodenum were normal. Biopsies for histology were taken with a cold forceps for evaluation of celiac disease. The pathology specimen was placed into Bottle Number 1. One biopsy site continued to bleed after the cold biopsy, despite watching the area for 2 minutes; therefore, one hemostatic clip was successfully placed (MR conditional). Clip ice puller: [email or web address] 11 mm. There was no bleeding at the end of the procedure. Impression: - Z-line regular, 39 cm from the incisors. - Normal esophagus. - Normal stomach. Biopsied. - Normal duodenal bulb, second portion of the duodenum and third portion of the duodenum. Biopsied. Clip (MR conditional) was placed. 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 - Biopsies were taken with a cold forceps for evaluation of eosinophilic esophagitis. Recommendation: - Patient has a contact number available for emergencies. The signs and symptoms of potential delayed complications were discussed with the patient. Return to normal activities tomorrow. Written discharge instructions were provided to the patient. - Resume previous diet. - Continue present medications. Procedure Code(s): --- Professional --- 61418, Esophagogastroduodenosco py, flexible, transoral; with biopsy, single or multiple CPT copyright 2020 [employer]. All rights reserved. The codes documented in this report are preliminary and upon molasses preparer review may be revised to meet current compliance requirements. Attending Participation: I was present and participated during the entire procedure from insertion to removal of the endoscope. Scope In: 12:19:40 PM Scope Out: 12:28:30 PM MD Elizabet Pryor MD 11/18/2024 12:42:09 PM This report has been signed electronically by Elizabet Oneill MD Number of Addenda: 0 Note Initiated On: 11/18/2024 12:12 PM Estimated Blood Loss: Estimated blood loss was minimal. Normal [facility] Antimullerian Hormone, Serum on 11-14-2024 AMH, SERUM 5.45 ng/mL Normal . [facility] Comment on above: Result Comment: For assays employing antibodies, the possibility exists for interference by heterophile antibodies in the samples.1 1.Tanisha Davila. Interferences in Immunoassays - still a threat. Clin. Chem. 2000; 46: 7125-1538. This test was developed and its performance characteristics determined by [facility]. It has not been cleared or approved by the Food and Drug Administration. Reference Range: Females 26 - 30y: 1.03 - 11.10 Median 4.20 AMH concentrations of >= 1.06 ng/mL is correlated with a better response to ovarian stimulation, produced more retrievable oocytes and higher odds of live according to Néstor et al. Fertility and Sterility. 2010: 94:7083-2108. The current AMH test method correlates with the study method with a slope of 0.94. Females at risk of ovarian hyperstimulation syndrome or polycystic ovarian syndrome (PCOS) may exhibit elevated serum AMH concentrations. AMH levels from PCOS patients may be 2 to 5 fold higher than age-appropriate reference interval values. Granulosa cell tumors of the ovary may secrete AMH along with other tumor markers. Elevated AMH is not specific for malignancy, and the assay should not be used exclusively to diagnose or exclude an AMH-secreting ovarian tumor. Performed at: [facility] [address] [place] [address] [id number] Nut Cracker: Mallika Doyle MD, Phone: [phone] Performed By: #### L 4150.4380, L803.3000, L3100.2390 ####[facility] [address] [place], [address] CBC W Auto Differential pane l (Bld)on 11-14-2024 Basophils (Bld) [#/Vol] 0 10*3/uL 0.0 - 0.2 10*3/uL [employer] Basophils/100 WBC (Bld) 0.4 % 0.0 - 2.0 % [employer] Eosinophils (Bld) [#/Vol] 0.1 10*3/uL 0.0 - 0.5 10*3/uL [employer] [facility] Eosinophils/100 WBC (Bld) 2.3 % 0.0 - 6.0 % [employer] Erythrocyte distribution width (RBC) [Ratio] 12.1 % 11.5 - 15.0 % [employer] [facility] Hematocrit (Bld) [Volume fraction] 42.6 % 35.0 - 47.0 % [employer] [facility] Hemoglobin (Bld) [Mass/Vol] 14.3 g/dL 11.7 - 16.0 g/dL [employer] [facility] Immature granulocytes (Bld) [#/Vol] 0 10*3/uL NINF - 0.1 10*3/uL [employer] [facility] Immature granulocytes/100 WBC (Bld) 0.2 % 0.0 - 2.0 % [employer] [facility] Interpretation and review of laboratory results Normal [employer] [facility] Lymphocytes (Bld) [#/Vol] 1.6 10*3/uL 1.0 - 4.3 10*3/uL [employer] [facility] Lymphocytes/100 WBC (Bld) 32.8 % 15.0 - 45.0 % [employer] [facility] MCH (RBC) [Entitic mass] 28.5 pg 26.0 - 34.0 pg [facility] MCHC (RBC) [Mass/Vol] 33.6 % 30.5 - 36.0 % [facility] MCV (RBC) [Entitic vol] 85 fL 77.0 - 99.0 fL [facility] Monocytes (Bld) [#/Vol] 0.3 10*3/uL 0.0 - 0.9 10*3/uL [facility] Monocytes/100 WBC (Bld) 5.9 % 5.0 - 13.0 % [facility] Neutrophils (Bld) [#/Vol] 2.8 10*3/uL 1.8 - 7.5 10*3/uL [facility] Neutrophils/100 WBC (Bld) 58.4 % 38.0 - 82.0 % [facility] Nucleated RBC/100 WBC (Bld) [Ratio] 0 % [facility] Platelet mean volume (Bld) [Entitic vol] 9.9 fL 9.0 - 12.7 fL [facility] Comment on above: MPV is a calculated measurement using platelet volume ratio Platelets (Bld) [#/Vol] 179 10*3/uL 140 - 440 10*3/uL [facility] RBC (Bld) [#/Vol] 5.01 10*6/uL 3.80 - 5.2 0 10*6/uL [facility] WBC (Bld) [#/Vol] 4.7 10*3/uL 3.6 - 10.7 10*3/uL [facility] CBC WITH AUTO DIFFERENTIALon 11-14-2024 Basophils (Bld) [#/Vol] 0.0 10*3/uL Normal 0.0-0.2 [facility] Comment on above: Performed By: #### L [id number] ####Fuel Oil Clerk: ALBERTINA SAUNDERS ([id number])[facility] ([facility])[address] [place] [address] Basophils/100 WBC (Bld) 0.4 % Normal 0.0-2.0 [facility] Comment on above: Performed By: #### L [id number] ####Fuel Oil Clerk: ALBERTINA SAUNDERS ([id number])[facility] (SWRL[facility])[address] [place] [address] Eosinophils (Bld) [#/Vol] 0.1 10*3/uL Normal 0.0-0.5 [facility] Comment on above: Performed By: #### L [id number] ####Fuel Oil Clerk: ALBERTINA SAUNDERS ([id number])[facility] CHAMBERLAIN RITTMAN (SWRLAB)[address] [place] [address] Eosinophils/100 WBC (Bld) 2.3 % Normal 0.0-6.0 [facility] Comment on above: Performed By: #### L [id number] ####Fuel Oil Clerk: ALBERTINA SAUNDERS ([id number])[facility] CHAMBERLAIN RITTM[facility] (SWRLAB)[address] [place] [address] Erythrocyte distribution width (RBC) [Ratio] 12.1 % Normal 11.5-15.0 [facility] Comment on above: Performed By: #### L [id number] ####Fuel Oil Clerk: ALBERTINA SAUNDERS ([phone])[facility]BERLA[facility] (SWRLAB)[address] [place] [address] Hematocrit (Bld) [Volume fraction] 42.6 % Normal 35.0-47.0 [facility] Comment on above: Performed By: #### L [id number] ####Fuel Oil Clerk: ALBERTINA SAUNDERS ([id number])[facility] [place] (SWRLAB)[address] [place] [address] Hemoglobin (Bld) [Mass/Vol] 14.3 g/dL Normal 11.7-16.0 [facility] Comment on above: Performed By: #### L [id number] ####Fuel Oil Clerk: ALBERTINA SAUNDERS ([id number])[facility] [place]LA[facility] (SWRLAB)[address] [place] [address] IMMATURE GRANS % 0.2 % Normal 0.0-2.0 [facility] Comment on above: Performed By: #### L [id number] ####Fuel Oil Clerk: ALBERTINA SAUNDERS ([phone])[facility]LA[facility] R[facility] (SWRLAB)[address] [place] [address] IMMATURE GRANS ABSOLUTE 0.0 10*3/uL Normal <0.1 [facility] Comment on above: Performed By: #### L [id number] ####Fuel Oil Clerk: ALBERTINA SAUNDERS ([phone])[facility] [place]LA[facility] (SWRLAB)[address] [place] [address] Lymphocytes (Bld) [#/Vol] 1.6 10*3/uL Normal 1.0-4.3 [facility] Comment on above: Performed By: #### L [id number] ####Fuel Oil Clerk: ALBERTINA SAUNDERS ([id number])[facility] [place]LAIN [facility] (SWRLAB)[address] [place] [address] Lymphocytes/100 WBC (Bld) 32.8 % Normal 15.0-45.0 [facility] Comment on above: Performed By: #### L [id number] ####Fuel Oil Clerk: ALBERTINA SAUNDERS ([id number])[facility] (SWRLAB)[address] [place] [address] MCH (RBC) [Entitic mass] 28.5 pg Normal 26.0-34.0 [facility] Comment on above: Performed By: #### L [id number] ####Fuel Oil Clerk: ALBERTINA SAUNDERS ([id number])[facility]LA[facility] (SWRLAB)[address] [place] [address] MCHC 33.6 % Normal 30.5-36.0 [facility] Comment on above: Performed By: #### L [id number] ####Fuel Oil Clerk: ALBERTINA SAUNDERS ([id number])[facility] (SWRLAB)[address] [place] [address] MCV (RBC) [Entitic vol] 85.0 fL Normal 77.0-99.0 [facility] Comment on above: Performed By: #### L [id number] ####Fuel Oil Clerk: ALBERTINA SAUNDERS ([id number])[facility] (SWRLAB)[address] [place] [address] [place] Monocytes (Bld) [#/Vol] 0.3 10*3/uL Normal 0.0-0.9 [facility] Comment on above: Performed By: #### L [id number] ####Fuel Oil Clerk: ALBERTINA SAUNDERS ([phone])[facility]UL[facility] R[facility] (SWRLAB)[address] [place] [address] [place] Monocytes/100 WBC (Bld) 5.9 % Normal 5.0-13.0 [facility] Comment on above: Performed By: #### L [id number] ####Fuel Oil Clerk: ALBERTINA SAUNDERS ([id number])[facility] (SWRLAB)[address] [place] [address] [place] NEUTROPHILS ABSOLUTE 2.8 10*3/uL Normal 1.8-7.5 [facility] Comment on above: Performed By: #### L [id number] ####Fuel Oil Clerk: ALBERTINA SAUNDERS ([id number])[facility] [facility] (SWRLAB)[address] [place] [address] [place] Neutrophils/100 WBC (Bld) 58.4 % Normal 38.0-82.0 [facility] Comment on above: Performed By: #### L [id number] ####Fuel Oil Clerk: ALBERTINA SAUNDERS ([phone])[facility] (SWRLAB)[address] [place] [address] [place] NRBC 0.0 /100 WBCs Normal 0.0-2.0 [facility] Comment on above: Performed By: #### L [id number] ####Fuel Oil Clerk: ALBERTINA SAUNDERS ([id number])[facility] (SWRLAB)[address] [place] [address] Platelet mean volume (Bld) [Entitic vol] 9.9 fL Normal 9.0-12.7 [facility] Comment on above: Result Comment: MPV is a calculated measurement using platelet volume ratio Performed By: #### L [id number] ####Fuel Oil Clerk: ALBERTINA SAUNDERS ([id number])[facility] [place]BERLAIN [facility] (SWRLAB)[address] [place] [address] Platelets (Bld) [#/Vol] 179 10*3/uL Normal 140-440 [facility] Comment on above: Performed By: #### L [id number] ####Fuel Oil Clerk: ALBERTINA SAUNDERS ([phone])[facility] [place] (SWRLAB)[address] [place] [address] RBC (Bld) [#/Vol] 5.01 10*6/uL Normal 3.80-5.20 [facility] Comment on above: Performed By: #### L [id number] ####Fuel Oil Clerk: ALBERTINA SAUNDERS ([id number])[facility]LA[facility] (SWRLAB)[address] [place] [address] WBC (Bld) [#/Vol] 4.7 10*3/uL Normal 3.6-10.7 [facility] Comment on above: Performed By: #### L [id number] ####Fuel Oil Clerk: ALBERTINA SAUNDERS ([id number])[facility]LAIN [facility] (SWRLAB)[address] [place] [address] COMPREHENSIVE METABOLIC PANE [facility] 11-14-2024 Albumin [Mass/Vol] 4.1 g/dL Normal 3.5-5.0 [facility] Comment on above: Performed By: #### L AB17, [id number], LAB99 ####Fuel Oil Clerk: ALBERTINA SAUNDERS ([id number])[facility] [place]BERLAIN [facility] (SWRLAB)[address] [place] [address] ALP [Catalytic activity/Vol] 52 U/L Normal 40-150 [facility] Comment on above: Performed By: #### L AB17, [id number], LAB99 ####Fuel Oil Clerk: ALBERTINA SAUNDERS ([id number])[facility] (SWRLAB)[address] [place] [address] [place] ALT [Catalytic activity/Vol] 18 U/L Normal <30 [facility] Comment on above: Performed By: #### L AB17, [id number], LAB99 ####Fuel Oil Clerk: ALBERTINA SAUNDERS ([id number])[facility] [place]AMBERLAIN [facility] (SWRLAB)[address] [place] [address] [place] Anion gap [Moles/Vol] 11 mmol/L Normal 3-13 [facility] Comment on above: Performed By: #### Lola JONES17, [id number], LAB99 ####Fuel Oil Clerk: ALBERTINA SAUNDERS ([id number])[facility] [place]LAIN [facility] (SWRLAB)[address] [place] [address] [place] AST [Catalytic activity/Vol] 17 U/L Normal <34 [facility] Comment on above: Performed By: #### Lola AB17, [id number], LAB99 ####Fuel Oil Clerk: ALBERTINA SAUNDERS ([id number])[facility] BETANCOURTBULMARO RITTMAN (SWRLAB)[address] [place] [address] [place] Bilirubin [Mass/Vol] 1.0 mg/dL Normal <1.2 [facility] Comment on above: Performed By: #### Lola AB17, [id number], LAB99 ####Fuel Oil Clerk: ALBERTINA SAUNDERS ([id number])[facility] BETANCOURTBULMARO RITTMAN (SWRLAB)[address] [place] [address] [place] Calcium [Mass/Vol] 9.5 mg/dL Normal 8.4-10.2 [facility] Comment on above: Performed By: #### L AB17, [id number], LAB99 ####Fuel Oil Clerk: ALBERTINA SAUNDERS ([id number])[facility] BETANCOURTBULMARO RITTMAN (SWRLAB)[address] [place] [address] [place] Chloride [Moles/Vol] 106 mmol/L Normal 98-107 [facility] Comment on above: Performed By: #### L AB17, [id number], LAB99 ####Fuel Oil Clerk: ALBERTINA SAUNDERS ([id number])[facility] [place]AMBERLAIN [facility] (SWRLAB)[address] [place] [address] [place] CO2 [Moles/Vol] 25 mmol/L Normal 22-29 [facility] Comment on above: Performed By: #### L AB17, [id number], LAB99 ####Fuel Oil Clerk: ALBERTINA SAUNDERS ([id number])[facility]BERLAIN [facility] (SWRLAB)[address] [place] [address] [place] Creatinine [Mass/Vol] 0.86 mg/dL Normal 0.57-1.11 [facility] Comment on above: Performed By: #### L AB17, [id number], LAB99 ####Fuel Oil Clerk: ALBERTINA SAUNDERS ([id number])[facility] CHABMERLAIN RITTMAN (SWRLAB)[address] [place] [address] GLOMERULAR FILTRATION RATE ML/MIN/1.73 SQ M.PREDICTED >90.0 Normal >60.0 [facility] Comment on above: Result Comment: Calc ulation based on the Chronic Kidney Disease Epidemiology Collaboration (CKD-EPI) equation refit without adjustment for race Performed By: #### L AB17, [id number], LAB99 ####Fuel Oil Clerk: ALBERTINA SAUNDERS ([id number])[facility] CHAMBERLAIN R[facility]AN (SWRLAB)[address] [place] [address] [place] Glucose [Mass/Vol] 92 mg/dL Normal 74-100 [facility] Comment on above: Performed By: #### L AB17, [id number], LAB99 ####Fuel Oil Clerk: ALBERTINA SAUNDERS ([id number])[facility]AMBERLAIN R[facility]AN (SWRLAB)[address] [place] [address] [place] Potassium [Moles/Vol] 3.7 mmol/L Normal 3.5-5.1 [facility] Comment on above: Result Comment: [facility] potassium values may be up to 0.5 mmol/L lower than serum values. Performed By: #### Lola JONES17, [id number], LAB99 ####Fuel Oil Clerk: ALBERTINA SAUNDERS ([id number])[facility] OLMOSAN (SWRLAB)[address] [place] [address] Protein [Mass/Vol] 6.7 g/dL Normal 6.4-8.3 [facility] Comment on above: Performed By: #### Lola DAVE, [id number], LAB99 ####Fuel Oil Clerk: ALBERTINA SAUNDERS ([id number])[facility] GOMEZTMAN (SWRLAB)[address] [place] [address] Sodium [Moles/Vol] 142 mmol/L Normal 136-145 [facility] Comment on above: Performed By: #### Lola DAVE, [id number], LAB99 ####Fuel Oil Clerk: ALBERTINA SAUNDERS ([id number])[facility] OLMOSAN (SWRLAB)[address] [place] [address] Urea nitrogen [Mass/Vol] 14 mg/dL Normal 8-21 [facility] Comment on above: Performed By: #### Lola DAVE, [id number], LAB99 ####Fuel Oil Clerk: ALBERTINA SAUNDERS ([id number])[facility] OLMOSAN (SWRLAB)[address] [place] [address] Comprehensive metabolic 1998 panelon 11-14-2024 Albumin [Mass/Vol] 4.1 g/dL 3.5 - 5.0 g/dL [facility] ALP [Catalytic activity/Vol] 52 U/L 40 - 150 U/L [facility] ALT [Catalytic activity/Vol] 18 U/L NINF - 30 U/L [facility] Anion gap [Moles/Vol] 11 mmol/L 3 - 13 mmol/L [facility] AST [Catalytic activity/Vol] 17 U/L NINF - 34 U/L [facility] Bilirubin [Mass/Vol] 1 mg/dL NINF - 1.2 mg/dL [facility] Calcium [Mass/Vol] 9.5 mg/dL 8.4 - 10. 2 mg/dL [facility] Chloride [Moles/Vol] 106 mmol/L 98 - 10 7 mmol/L [facility] CO2 [Moles/Vol] 25 mmol/L 22 - 29 mmol/L [facility] Creatinine [Mass/Vol] 0.86 mg/dL 0.57 - 1.11 mg/dL [facility] GFR/1.73 sq M.predicted (S/P/Bld) [Vol rate/Area] - PINF [facility] Comment on above: Calculation based on the Chronic Kidney Disease Epidemiology Collaboration (CKD-EPI) equation refit without adjustment for race Glucose [Mass/Vol] 92 mg/dL 74 - 100 mg/dL [facility] Potassium [Moles/Vol] 3.7 mmol/L 3.5 - 5.1 mmol/L [facility] Comment on above: Plasma potassium eliezer ues may be up to 0.5 mmol/L lower than serum values. Protein [Mass/Vol] 6.7 g/dL 6.4 - 8.3 g/dL [facility] Sodium [Moles/Vol] 142 mmol/L 136 - 145 mmol/L [facility] Urea nitrogen [Mass/Vol] 14 mg/dL 8 - 21 mg/dL [facility] ECG 12-LEADon 11-14-2024 ECG 12-LEAD IMPRESSION: Sinus tachycardia Compared to ECG 10/30/2024 22:49:00 Left ventricular hypertrophy no longer present Electronically Signed On 11-14-2024 07:18:20 EDT by Tess Summers Normal [facility] ED Nursing Noteon 11-14-2024 ED Nursing Note States has been havi ng palpitations on and off for about a month-has been seen here for this and followed up with doc and placed on Holter monitor. Also has been having low belly pain for several weeks. Normal [facility] ED Provider Noteon ED Provider Note Normal [facility] HIGH SENSITIVITY TROPONIN, S ERIAL BASELINEon 11-14-2024 TROPONIN HS SERIAL BASELINE <3 Normal <=14 [facility] Comment on above: Result Comment: In i ndividuals presenting with symptoms > 2h, a baseline troponin <= 5 ng/L suggests acutecardiac injury is unlikely and further serial testing is generally not indicated. Performed By: #### L AB17, [id number], LAB99 ####Fuel Oil Clerk: ALBERTINA SAUNDERS ([phone])[employer] BETANCOURTBULMARO NICKOLASAN (SWRLAB)[address] LIPASEon 11-14-2024 Lipase [Catalytic activity/Vol] 11 U/L Normal <55 [facility] Comment on above: Performed By: #### L AB17, [id number], LAB99 ####Fuel Oil Clerk: ALBERTINA SAUNDERS ([id number])[employer] BETANCOURTBULMARO NICKOLASAN (SWRLAB)[address] Laboratory - Chemistry and C hemistry - challengeon 11-14-2024 Lipase [Catalytic activity/Vol] 11 U/L NINF - 55 U/L [employer] No Panel InformationOrdered By: Tess Summers on 11-14-2024 P [place] -17 degrees [employer] Work Phone: [place] Interval 147 ms [employer] Work Phone: QRS [place] 11 degrees [employer] Work Phone: QRSD Interval 82 ms [employer] Work Phone: QT Interval 344 ms [employer] Phone: QTC Interval 455 ms [employer] Work Phone: T Wave [place] 53 degrees [employer] Work Phone: [employer] Work Phone: No Panel Informationon 11-14 Sinus tachycardia Compared to ECG 10/30/2024 22:49:00 Left ventricular hypertrophy no longer present Electronically Signed On 11-14-2024 07:18:20 EDT by Tess Summers CV Tess Mo MD - 11/14/2024 IMPRESSION: Sinus tachycardia Compared to ECG 10/30/2024 22:49:00 Left ventricular hypertrophy no longer present Electronically Signed On 11-14-2024 07:18:20 EDT by [facility] Interpretation and review of laboratory results Normal [facility] Troponin HS Serial Baseline ng/L NINF - 14 ng/L [facility] Comment on above: In individuals prese nting with symptoms > 2h, a baseline troponin <= 5 ng/L suggests acute cardiac injury is unlikely and further serial testing is generally not indicated. [facility] Interpretation and review of laboratory results Normal [facility] Vital signsOrdered By: Tess Summers on 11-14-2024 Heart rate 105 /min bpm [facility] [employer] Work Phone: ACETYLCHOLINE RECEPTOR, SAM LAUREANO (BKR [facility])on 11-12-2024 [facility] ACETYLCHOLINE RECEPTOR BLOCKING ANTIBODY <15 Normal <15 [facility] Comment on above: Result Comment: Unit s: % InhibitionTest performed by [employer] [address] [place] [address] [employer] Director: Starla Ba MD,PHD,MBATest Reported by [facility]pharmaceuticalsMi[facility],[address] [place] [address] [id number] Tolliver M.D., Ph.D., Director of [phone], CLIA [id number] Performed By: #### L AB64, [id number] ####[facility] (AMDBEAKER)[address] [place], [place] CK ISOENZYMES (BKR [facility])on 11-12-2024 [facility] CK-BB Not detected Normal None Detected [facility] Comment on above: Performed By: #### L AB64, [id number] ####[facility] (AMDBEAKER)[address] [place], [place] [facility] CK-MB 0 % Normal <5 [facility] Comment on above: Performed By: #### L AB64, [id number] ####[facility] (AMDBEAKER)[address] [place], [place] [facility] CK-MM 100 % Normal 95-100 [facility] Comment on above: Performed By: #### L AB64, [id number] ####[facility] (AMDBEAKER)[address] [place], [place] [facility] CREATINE KINASE, TOTAL 37 U/L Normal 20-239 [facility] Comment on above: Performed By: #### L AB64, [id number] ####[facility] (AMDBEAKER)[address] [place], [place] [facility] INTERPRETATION SEE BELOW Normal [facility] Comment on above: Result Comment: Norm al isoenzyme pattern with anormal total activity.Test Performed by [employer]onal,[employer] [facility] [facility],[address] [place] [address] [id number] Tolliver M.D., Ph.D., Director of [phone], CLIA [id number] Performed By: #### L AB64, [id number] ####[facility] (American TeleCareBEAKER)[address] [place], [place] [facility] CNOVon 11-12-2024 CNOV Office Visit ([facility] ) -------- MACHELLE,MAY ([id number]) 1995 Date Time Provider Department 11/12/24 9:15 AM TARIQ SINGLETON [facility] During your visit today, we recorded the following information about you: Pulse Blood pressure Weight Height 88/minute 102/60 75.3 kg 1.676 m Tariq Singleton, DIAGNOSTIC IMAGING MANAGER.BUILD AND DEPLOYMENT ENGINEER 11/12/2024 9:44 AM Signed CHIEF COMPLAINT: Patient presents with: ER F/U HPI May Machelle is a 29 year old female here today for ER F/U. At the end of September, she was having palpitations, chest/abdominal pain and was in the ER a couple times. CT a/p was completed and unremarkable. Cardiac work up negative. She currently has 14 day heart monitor on and will be completed this Sunday. She has had increased bloating, abdominal pain, throat pain, chest pain. Feels difficult to swallow. She is having burning in her esophagus and reflux. Stools have been orange colored, but not loose, but not formed; just very soft. PCP just started her on pantoprazole 3 days ago, so hard to say if helpful yet. Niece has celiac. Celiac serology negative, but has low IgA. Scheduled for lactulose breath test 12/02/24. Current Outpatient Medications Medication Sig pantoprazole DR (PROTONIX) 20 mg tablet Take 20 mg by mouth. desvenlafaxine ER (PRISTIQ) 50 mg 24 hr tablet Take 1 tablet by mouth once daily. (Patient not taking: Reported on 11/12/2024) no115/iron/folic acid ( 19 ORAL) Take 1 tablet by mouth once daily. (Patient not taking: Reported on 11/12/2024) No current facility-administered medications for this visit. ALLERGIES Allergen Reactions Alprazolam Unknown Quetiapine Fumarate Unknown SOCIAL HISTORY[1] History reviewed. No pertinent past medical history. PAST SURGICAL HISTORY Procedure Laterality Date BREAST LUMPECTOMY HX 08/2024 COLONOSCOPY 03/2024 TONSILLECTOMY AND ADENOIDECTOMY FAMILY HISTORY Problem Relation Age of Onset Colon Cancer Maternal Grandmother REVIEW OF SYSTEMS Review of Systems Constitutional: Positive for appetite change. HENT: Positive for trouble swallowing. Cardiovascular: Positive for chest pain and palpitations. Gastrointestinal: Positive for abdominal distention, abdominal pain, anal bleeding, blood in stool and nausea. Gas, Heartburn All other systems reviewed and are negative. PHYSICAL EXAM BP 102/60 Pulse 88 Ht 5' 6" (1.68m) Wt 166 lb (75.3kg) SpO2 97% BMI 26.81 kg/(m2). Physical Exam Vitals and nursing note reviewed. Constitutional: Appearance: Normal appearance. She is normal weight. Cardiovascular: Rate and Rhythm: Normal rate and regular rhythm. Pulmonary: Breath sounds: Normal breath sounds. Abdominal: General: Abdomen is flat. Bowel sounds are normal. Palpations: Abdomen is soft. Tenderness: There is abdominal tenderness (mild) in the right lower quadrant. There is no guarding or rebound. Skin: General: Skin is warm and dry. Neurological: Mental Status: She is alert and oriented to person, place, and time. Psychiatric: Mood and Affect: Mood normal. Behavior: Behavior normal. Thought Content: Thought content normal. Judgment: Judgment normal. ASSESSMENT: (R14.0) Bloating (primary encounter diagnosis) (Z83.79) Family history of celiac disease (R14.2) Belching (R10.10) Upper abdominal pain (R13.10) Dysphagia, unspecified type 1. Bloating (Primary) - ongoing bloating, belching and upper abdominal pain/chest pain. Plan for EGD for further evaluation. Request small bowel biopsies given bloat and family hx of celiac disease. - continue pantoprazole - await lactulose hydrogen breath test - EGD DIAGNOSTIC; Future 2. Family history of celiac disease - EGD 3. Belching - continue pantoprazole and plan for EGD - EGD DIAGNOSTIC; Future 4. Upper abdominal pain - EGD DIAGNOSTIC; Future 5. Dysphagia, unspecified type - EGD Follow up in office after EGD and breath test Tariq Singleton APRN.CNP November 12, 2024 9:42 AM [1] Social History Tobacco Use Smoking status: Never Smokeless tobacco: Never Vaping Use Vaping status: Never Used Substance Use Topics Drug use: Never Allergies As of Date: 11/12/2024 Noted Allergy Reaction ALPRAZOLAM 05/02/2018 16 - Unknown QUETIAPINE FUMARATE 05/02/2018 16 - Unknown Date Reviewed: 11/12/2024 Reviewed by: Tariq Singleton APRN.BUILD AND DEPLOYMENT ENGINEER - Fully Assessed Reason for Visit: ER F/U [41] Primary Visit Diagnosis:Bloating [R14.0] Other Visit Diagnoses:Family history of celiac disease [Z83.79] Belching [R14.2] Upper abdominal pain [R10.10] Dysphagia, unspecified type [R13.10] Order(s):EGD DIAGNOSTIC [GI9] Order #: [id number] FUTURE Prescriptions as of 11/12/2024 - pantoprazole DR (PROTONIX) 20 mg tablet Take 20 mg by mouth. Problem List As Of Date 11/12/2024 Noted Resolved Syncope and collapse [R55] 10/09/2024 Lightheadedness [R42] (more content not included)... Normal [facility] MISCELLANEOUS SENDOUT TESTon 11-12-2024 RESULT See Comment Normal [facility] Comment on above: Result Comment: YESENIA Melendez COMMENTS:See attached report. Resulted on behalf of [facility]. Performed By: #### L [id number] ####[email or web address] (AMDBEAKER)[address]19 [place], [place] [facility] 37on 11-11-2024 37 Normal [facility] ECG 12 lead - CLINIC PERFORM EDon 11-11-2024 Sinus Rhythm WITHIN NORMAL LIMITS [facility] Progress Noteon 11-11-2024 Progress Note Normal [facility] 36on 11-10-2024 36 Normal [facility] CELIAC SCREENon 11-10-2024 GLIAD DEAMIDATED IGA QUAL Negative Normal Negative, Test not Indicated [facility] Comment on above: Order Comment: Speci men Type: BLOOD SPECIMENOrdering Facility: [facility] Address: [address] [place] [address] Result Comment: This is used as an aid in diagnosis of celiac disease. Clinical correlation is required. The following results were obtained with an Apto QUANTA Lite Gliadin IgA LUBNA Gliadin. Gliadin IgA values obtained with different manufacturers' assay methods may not be used interchangeably. The magnitude of the reported IgA levels cannot be correlated to an endpoint titer. Performed By: #### L [id number] ####[facility] LABCLIA [id number] [place] [address] [place] Gliadin peptide IgA Qn (S) 2 Units Normal <20 [facility] Comment on above: Order Comment: Speci men Type: BLOOD SPECIMENOrdering Facility: [facility] Address: [address] [place] [address] Performed By: #### L [id number] ####[facility] LABCLIA [id number] [place] [id number] [place] INTERPRETATION No serological evide nce of celiac disease, however, if celiac disease is clinically suspected and patient is not on gluten-free diet, histological diagnosis may be considered. HLA testing may help with risk assessment. Normal [facility] Comment on above: Order Comment: Speci men Type: BLOOD SPECIMENOrdering Facility: [facility] Address: [address] [place] [address] Performed By: #### L [id number] ####[facility] LABCLIA [id number] [place] [address] [place] TRANSGLUTAMINASE IGA ABS INTERPRETATION Negative Normal Negative [facility] Comment on above: Order Comment: Speci men Type: BLOOD SPECIMENOrdering Facility: [facility] Address: [address] [place] [address] Result Comment: The following results were obtained with [employer] R h-tTG IgA LUBNA.???R h-tTG IgA values obtained with different manufacturers' assay methods may not be used interchangeably. The magnitude of the reported IgA levels cannot be corelated to an endpoint???concentration. This is used as an aid in diagnosis of celiac disease. Clinical correlation is required. Performed By: #### L [id number] ####[facility] LABIA [id number] [place] [address] [place] tTG IgA Qn (S) <2 Normal <4 [facility] Comment on above: Order Comment: Speci men Type: BLOOD SPECIMENOrdering Facility: [facility] Address: [address] [place] [address] Performed By: #### L [id number] ####[facility] LABCLIA [id number] [place] [address] [place] Estradiolon 11-10-2024 ESTRADIOL 15.7 pg/mL Normal [facility] Comment on above: Result Comment: FEMA LES ADULT FEMALE: Premenopausal: 15-350 pg/mL(E2 levels vary widely through the menstrual cycle) Postmenopausal: <10 pg/mL TAURUS STAGES MEAN AGE REFERENCE RANGES Stage I(>14 days and prepubertal) 7.1 years Undetectable-20 pg/mLL Stage II 10.5 years Undetectable-24 pg/mL Stage III 11.6 years Undetectable-60 pg/mL Stage IV 12.3 years 15-85 pg/mL Stage V 14.5 years 15-350 pg/mL Puberty onset (transition from Taurus stage I to Taurus stage II) occurs for girls at a median age of 10.5 (/- 2) years. There is evidence that it may occur up to 1 year earlier in obese girls and in girls. Progression through Taurus stages is variable. Taurus stage V (adult) should be reached by age 18. Performed By: #### L 3300.1750, L803.3000, L3100.5055 ####[facility] [address] [place], [place], [id number] FSH and LHon 11-10-2024 FSH 5.6 mIU/mL Normal [facility] Comment on above: Result Comment: FEMA LE: Follicular: 1.4 - 18.1 mIU/mL Midcycle: 3.4 - 33.4 mIU/mL Luteal: 1.5 - 9.1 mIU/mL Post Menopause: 23.0 - 116.3 mIU/mL MALE: 1.4 - 18.1 mIU/mL Performed By: #### L 3300.1750, L803.3000, L3100.5055 ####[facility] [address] [place], [place], [id number] LH 4.8 mIU/mL Normal [facility] Comment on above: Result Comment: FEMA LE: Follicular: 1.9-12.5 mIU/mL Midcycle: 8.7-76.3 mIU/mL Luteal: 0.5-16.9 mIU/mL Post Menopause: 15.9-54.0 mIU/mL MALE: 20-70 Years: 1.5-9.3 mIU/mL >70 Years: 3.1-34.6 mIU/mL Performed By: #### L 3300.1750, L803.3000, L3100.5055 ####[facility] [address] [place], [place], [id number] IgA SerPl-mCncon 11-10-2024 IgA [Mass/Vol] 69 mg/dL Low 70-400 [facility] Comment on above: Order Comment: Speci men Type: BLOOD SPECIMENOrdering Facility: [facility] Address: [address] [place] [address] Performed By: #### 2 [id number] ####[facility] LABCLIA [id number] [place] [id number] [place] LH ser/plasOrdered By: Chrissy Josue on 11-10-2024 Lutropin Qn 4.8 m[IU]/mL [facility] Comment on above: FEMALE:Follicular: 1 .9-12.5 mIU/mLMidcycle: 8.7-76.3 mIU/mLLuteal: 0.5-16.9 mIU/mLPost Menopause: 15.9-54.0 mIU/mLMALE:20-70 Years: 1.5-9.3 mIU/mL>70 Years: 3.1-34.6 mIU/mL Icebox Worker Office Visit Reporton 11-10-2024 Icebox Worker Office Visit Report [facility] [address] [place] [address], [address] [place] [address] OFFICE VISIT Date of Service: 11/10/24 MR#: [id number] Acct: [id number] Name: MACHELLEMAY LEIZ Rep #: [id number] : 1995 Provider: Dr. Pretty Francis DO Age/Sex: 29/F Location[place] [facility] [place] Status: Signed Intake Vital Signs 10/27/24 10:55 11/10/24 14:06 11/10/24 14:06 Height 5 ft 6 in 5 ft 6 in 5 ft 6 in Weight: 142 lb 168 lb 3 oz BMI 22.8 27.1 BP 115/76 123/75 H Blood Pressure Location Lt brachial Position Sitting Respiration 18 Pulse 95 Pulse Source Monitor Pulse Oximetry (%) 96 Intake Visit Reasons: US F/U Home Care Administrator Required: No Is patient in pain?: No Allergies nitrofurantoin Allergy (Severe, Verified 11/10/24 14:06) difficulty breathing alprazolam Adverse Reaction (Intermediate, Verified 11/10/24 14:06) PT UNSURE OF REACTION quetiapine Adverse Reaction (Intermediate, Verified 11/10/24 14:06) PT UNSURE OF REACTION Medications ???Medication ???Instructions ???Recorded ???Confirmed ???Type L. crispatus, gasseri, jensenii, 2 tab PO DAILY PRN 10/15/24 History rhamnosus 12 billion cell chew tablet (Culturelle Probiotic) docosahexaenoic acid 200 mg 200 mg PO DAILY PRN 10/15/2411/10 History capsule ( DHA) sertraline 25 mg tablet (Zoloft) 25 mg PO QDAY 10/27/24 11/10/24 Hi story gabapentin 300 mg capsule 300 mg PO BID 11/10/24 11/10/24 Hi story metoprolol succinate 25 mg 12.5 mg PO QDAY 11/10/24 11/10/24 History tablet,extended release 24 hr pantoprazole 40 mg tablet,delayed 40 mg PO QDAY 11/10/24 11/10/24 H istory release Post menopausal: No Patient : No : No PFSH Medical History Adenoma of breast Thyroid disease Migraine headache History of Holter monitoring History of echocardiogram Cardiology follow-up encounter Vasovagal near syncope IBS (irritable bowel syndrome) GERD (gastroesophageal reflux disease) Diseases of the circulatory system complicating , unspecified trimester Supraventricular tachycardia, unspecified Supraventricular tachycardia during Heart palpitations History of kidney disease Hypothyroidism affecting Normal endoscopic ultrasound of upper gastrointestinal tract Seasonal allergies Supervision of high-risk Infertility associated with anovulation Surgical History S/P lumpectomy, left breast Hx of tonsillectomy [place] teeth extracted History of tonsillectomy Family History Grandmother Colon cancer Diabetes Mother Diabetes Pancreatic cancer Social History adopted: No household members: spouse and children number of children: 2 current occupational status: unemployed current occupation: [employer] current occupational exposures/hazards: No pets and animals: Yes (NOT MANAGING LITTERBOX) pets and animals: cat(s), dog(s), horse(s) and farm animals history of recent travel: No sexually active: Yes Smoking Status: Never smoker alcohol intake: never substance use type: does not use diet: other well-balanced diet: daily or most days caffeine: No eating out: 1-3 times/week during the past year weight has: remained stable what type of physical activity do you participate in: weight training frequency: 5-6 times per week duration: 15-30 minutes/day gale/restoration: Anglican seatbelt use: always do you feel safe at home: Yes additional social history: - [employer] M[employer] US F/U Details: The patient is a 29-year-old female with a history of amenorrhea and bloating presenting for evaluation. Amenorrhea - LMP: 2 months ago - Currently her 34-xjxqu-irf son, but notes a decrease in frequency. - Plans to stop soon. - Expresses concern that hormonal changes related to may be contributing to her amenorrhea. - Interested in running hormone tests to investigate the cause of her amenorrhea. Bloating - Reports significant bloating, sometimes appearing . - Experiences deep pain in her hips associated with bloating. - Recently had a colonoscopy, which was normal. - Scheduled to see a can handler on Sunday to discuss bloating symptoms. Fatigue - Reports feeling tired and worn down. Reproductive Goals - Plans to start trying for another baby in the spring. - Used ovulation strips for 3 months but did not observe ovulation, likely due to amenorrhea and . Past Diagnostic Results: - Colonoscopy: Normal - Pelvic Ultrasound: Normal - Thyroid Function Tests: Ord (more content not included)... Normal [facility] Progress Noteon 11-10-2024 Progress Note Normal [facility] Serum or plasma estradiol me asurement after follitropin dose (mass/volume)Ordered By: Pretty Josue on 11-10-2024 E2 post dose follitropin [Mass/Vol] 15.7 pg/mL [facility] Comment on above: FEMALES ADULT FEMALE : Premenopausal: 15-350 pg/mL(E2 levels vary widely through the menstrual cycle) Postmenopausal: <10 pg/mL TAURUS STAGES MEAN AGE REFERENCE RANGES Stage I(>14 days and prepubertal) 7.1 years Undetectable-20 pg/mLL Stage II 10.5 years Undetectable-24 pg/mL Stage III 11.6 years Undetectable-60 pg/mL Stage IV 12.3 years 15-85 pg/mL Stage V 14.5 years 15-350 pg/mL Puberty onset (transition from Taurus stage I to Taurus stage II) occurs for girls at a median age of 10.5 (/- 2) years. There is evidence that it may occur up to 1 year earlier in obese girls and in girls.Progression through Taurus stages is variable. Taurus stage V (adult) should be reached by age 18. US HEAD NECK SOFT TISSUEon 1 US HEAD NECK SOFT TISSUE Normal [facility] VITAMIN B6 (BKR QUEST)on QUEST VITAMIN B6, PLASMA 30.8 ng/mL High 2.1-21.7 [facility] Comment on above: Result Comment: Sherrie min supplementation within 24 hours prior toblood draw may affect the accuracy of the results.This test was developed and its analytical performancecharacteristics have been determined by [employer] [place], [place]. It hasnot been cleared or approved by the U.S. Food and DrugAdministration. This assay has been validated pursuantto the CLIA regulations and is used for clinicalpurposes.Test Performed by [facility],[address] [place] [id number] Tolliver M.D., Ph.D., Director of [phone], CLIA [id number] Performed By: #### L [id number] ####[email or web address] (AMDBEAKER)[address] [place], [place] [facility] Pelvic w/ Transvaginalon Pelvic w/ Transvaginal [facility] Imaging Services [address] [place] [id number] Pelvic w/ Transvaginal MR#: [id number] Acct: [id number] Name: MACHELLE ELIZ Rep #: [id number] : 1995 F 29 From: Pepito Ibarra MD PCP: Dr. Zachariah Rome, DO Status: REG CLI Study: Pelvic w/ Transvaginal Date of Exam: 11/06/24 Exam# [id number] Ordering Dr: Pretty Matos DO PROCEDURE: PELVIC W/ TRANSVAGINAL N/A REASON FOR EXAM: PELVIC PAIN TECHNIQUE: Procedure Code: USPELTVAG Modality: US Procedure: PELVIC W/ TRANSVAGINAL COMPARISON: 02/14/2024 FINDINGS: Measurements: Uterus: Uterus is retroflexed and retroverted measuring 8.2 x 5.7 x 3.8 cm. Myometrium is homogeneous, no fibroid noted Endometrium: Normal thickness at 4 mm, endometrium is hyperechoic Right ovary: 5.6 x 3.5 x 2.1 cm Left ovary: 5.3 x 2.2 x 2.0 cm Neither ovary shows a suspicious mass, both ovaries demonstrate normal color flow Other: No free fluid, bladder distends normally US/Pelvic w/ Transvaginal IMPRESSION: No suspicious sonographic findings Reading Location: [id number] CC: Dr. Zachariah Rome, DO; Dr. Pretty Matos, DO Pocket Secretary Assembler: Signed Normal [facility] T3 (THYROID HORMONE)on 11-05 T3, TOTAL 84 ng/dL Normal 40-193 [facility] Comment on above: Performed By: #### L [id number], [id number] ####[employer] Clerk: EMILIA HAGEN ([id number])[facility] (SBHLAB)[address] T3 FREEon 11-05-2024 Free T3 [Mass/Vol] 3.13 pg/mL Normal 1.58-3.91 [facility] Comment on above: Performed By: #### L [id number], [id number] ####[employer] Clerk: EMILIA HAGEN ([id number])[facility] (SBHLAB)[address] T3, REVERSE BY TMSon 025 T3 REVERSE- LC-MS/MS 13.1 ng/dL Normal 9.0-27.0 [facility] Comment on above: Result Comment: INTE RPRETIVE INFORMATION: Triiodothyronine, Reverse - LC-MS/MSThis test was developed and its performance characteristicsdetermined by [facility]. It has not been cleared orapproved by the [place] Food and Drug Administration. This test wasperformed in a CLIA certified laboratory and is intended forclinical purposes.Performed By: [facility] [place] [id number] Director: Liang Newell MD, PhDCLIA Number: [id number] Performed By: #### L [id number] ####[facility] (ARUP)[address] [place] [address] CHEST ANGIOGRAM W AND/OR WO IV CONTRASTon 10-31-2024 CT CHEST ANGIOGRAM W AND/OR WO IV CONTRAST Normal [facility] CT HEAD WO IV CONTRASTon CT HEAD WO IV CONTRAST Normal [facility] CT Head WO contraston 2024 No acute intracrania l abnormality. Report Dictated on Electronically Signed By: Danya Downing DO Electronically Signed Date/Time: 10/31/2024 1:11 AM EDT [facility] [employer] SYSTEM Patient Name: MACHELLE MAY : 1995 Exam Date/Time: 10/31/2024 00:35 Procedure: CT HEAD WO IV CONTRAST Ordering Provider: ALMAGUER DOUGLAS Reason For Exam: Chronic paresthesias on the face and the hands. Negative MRI brain negative MRI C-spine. NIHSS is 0. Stroke? EXAM: CT Head Without Intravenous Contrast CLINICAL INDICATION: Chronic paresthesias on the face and the hands. Negative MRI brain negative MRI C-spine. NIHSS is 0. Stroke? TECHNIQUE: Axial computed tomography images of the head/brain without intravenous contrast. Sagittal and coronal reformatted images were created and reviewed. This CT exam was performed using one or more of the following dose reduction techniques: automated exposure control, adjustment of the mA and/or kV according to patient size, and/or use of iterative reconstruction technique. COMPARISON: 04/30/2024. FINDINGS: BRAIN AND EXTRA-AXIAL SPACES: Unremarkable. No hemorrhage. No significant white matter disease. No edema. No ventriculomegaly. BONES/JOINTS: Unremarkable. No acute fracture. SOFT TISSUES: Unremarkable. SINUSES: Right maxillary sinus retention cyst is incompletely visualized. MASTOID AIR CELLS: Unremarkable as visualized. No mastoid effusion. [facility] Danya Downing DO - 10/31/2024 Patient Name: MACHELLE MAY : 1995 Exam Date/Time: 10/31/2024 00:35 Procedure: CT HEAD WO IV CONTRAST Ordering Provider: ALMAGUER DOUGLAS Reason For Exam: Chronic paresthesias on the face and the hands. Negative MRI brain negative MRI C-spine. NIHSS is 0. Stroke? EXAM: CT Head Without Intravenous Contrast CLINICAL INDICATION: Chronic paresthesias on the face and the hands. Negative MRI brain negative MRI C-spine. NIHSS is 0. Stroke? TECHNIQUE: Axial computed tomography images of the head/brain without intravenous contrast. Sagittal and coronal reformatted images were created and reviewed. This CT exam was performed using one or more of the following dose reduction techniques: automated exposure control, adjustment of the mA and/or kV according to patient size, and/or use of iterative reconstruction technique. COMPARISON: 04/30/2024. FINDINGS: BRAIN AND EXTRA-AXIAL SPACES: Unremarkable. No hemorrhage. No significant white matter disease. No edema. No ventriculomegaly. BONES/JOINTS: Unremarkable. No acute fracture. SOFT TISSUES: Unremarkable. SINUSES: Right maxillary sinus retention cyst is incompletely visualized. MASTOID AIR CELLS: Unremarkable as visualized. No mastoid effusion. IMPRESSION: No acute intracranial abnormality. Report Dictated on Electronically Signed By: Danya Downing DO Electronically Signed Date/Time: 10/31/2024 1:11 AM EDT [facility] Radiology Study observation (narrative) [facility] CT Head WO contrastOrdered B y: Danya Downing on 10-31-2024 [facility] [employer] Work Phone: CTA Chest vessels WO and W c ontrast Isabel 10-31-2024 No acute pulmonary embolism. Normal thoracic aortic arch and great vessels. No acute cardiopulmonary disease. Left posterolateral breast lipoma. Report Dictated on Electronically Signed By: Danya Downing DO Electronically Signed Date/Time: 10/31/2024 1:34 AM EDT [facility] Patient Name: MACHELLE MAY : 1995 Exam Date/Time: 10/31/2024 00:55 Procedure: CT CHEST ANGIOGRAM W AND/OR WO IV CONTRAST Ordering Provider: ALMAGUER DOUGLAS Reason For Exam: Sudden onset palpitations. Looking for PE. EXAM: CT Angiography Chest With Intravenous Contrast CLINICAL INDICATION: Sudden onset palpitations. Facial paresthesias. Evaluate for PE. TECHNIQUE: Axial computed tomographic angiography images of the chest with intravenous contrast. This CT exam was performed using one or more of the following dose reduction techniques: automated exposure control, adjustment of the mA and/or kV according to patient size, and/or use of iterative reconstruction technique. MIP reconstructed images were created and reviewed. COMPARISON: 10/05/[address] is used for correlation. FINDINGS: PULMONARY ARTERIES: Unremarkable. No pulmonary embolism. AORTA: Thoracic aortic arch and great vessels are normal in caliber. No thoracic aortic aneurysm. LUNGS AND PLEURAL SPACES: Unremarkable. No mass. No consolidation. No significant effusion. No pneumothorax. HEART: Unremarkable. No cardiomegaly. No significant pericardial effusion. No evidence of RV dysfunction. No coronary artery atherosclerotic calcification. 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 BONES/JOINTS: No acute fracture. No dislocation. SOFT TISSUES: 2.2 x 2.7 cm left posterolateral breast lipoma. LYMPH NODES: Unremarkable. No enlarged lymph nodes. [facility] SalinaDanya, - 10/31/2024 [facility] 1995 [id number] Exam Date/Time: 10/31/2024 00:55 Procedure: CT CHEST ANGIOGRAM W AND/OR WO IV CONTRAST Ordering Provider: ALMAGURE DOUGLAS Reason For Exam: Sudden onset palpitations. Looking for PE. EXAM: CT Angiography Chest With Intravenous Contrast CLINICAL INDICATION: Sudden onset palpitations. Facial paresthesias. Evaluate for PE. TECHNIQUE: Axial computed tomographic angiography images of the chest with intravenous contrast. This CT exam was performed using one or more of the following dose reduction techniques: automated exposure control, adjustment of the mA and/or kV according to patient size, and/or use of iterative reconstruction technique. MIP reconstructed images were created and reviewed. COMPARISON: 10/05/[address] is used for correlation. FINDINGS: PULMONARY ARTERIES: Unremarkable. No pulmonary embolism. AORTA: Thoracic aortic arch and great vessels are normal in caliber. No thoracic aortic aneurysm. LUNGS AND PLEURAL SPACES: Unremarkable. No mass. No consolidation. No significant effusion. No pneumothorax. HEART: Unremarkable. No cardiomegaly. No significant pericardial effusion. No evidence of RV dysfunction. No coronary artery atherosclerotic calcification. 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 BONES/JOINTS: No acute fracture. No dislocation. SOFT TISSUES: 2.2 x 2.7 cm left posterolateral breast lipoma. LYMPH NODES: Unremarkable. No enlarged lymph nodes. IMPRESSION: No acute pulmonary embolism. Normal thoracic aortic arch and great vessels. No acute cardiopulmonary disease. Left posterolateral breast lipoma. Report Dictated on Electronically Signed By: Danya Downing DO Electronically Signed Date/Time: 10/31/2024 1:34 AM EDT [facility] Radiology Study observation (narrative) [facility] HIGH SENSITIVITY TROPONIN, S ERIAL, SECOND TESTon 10-31-2024 2H TROPONIN HS (SERIAL 2ND TROPONIN) <3 Normal <=14 [facility] Comment on above: Result Comment: Delt a value was unable to be calculated as both baseline and serial troponin tests were below the level of quantitation. As both baseline and 2h troponin values are below the level of quantitation, acute cardiac injury is unlikely. Performed By: #### L [id number] ####[employer] Clerk: ALBERTINA SAUNDERS ([id number])[facility] ([address] No Panel Informationon 10-31 2h Troponin HS (Serial 2nd Troponin) ng/L NINF - 14 ng/L [facility] Comment on above: Delta value was unab le to be calculated as both baseline and serial troponin tests were below the level of quantitation. As both baseline and 2h troponin values are below the level of quantitation, acute cardiac injury is unlikely. Interpretation and review of laboratory results Normal [facility] 36on 10-30-2024 36 Patient can keep scheduled follow up appointment on 11/10/2024. Normal [facility] 36 Normal [facility] 36 Pt lvm requesting a sooner appt w OC due to recent ER visits. Pt is scheduled for fu on 11/11/24. Normal [facility] 36 Normal [facility] 36 Normal [facility] CBC W Auto Differential pane l (Bld)on 10-30-2024 Basophils (Bld) [#/Vol] 0 10*3/uL 0.0 - 0.2 10*3/uL [facility] Basophils/100 WBC (Bld) 0.5 % 0.0 - 2.0 % [facility] Eosinophils (Bld) [#/Vol] 0.1 10*3/uL 0.0 - 0.5 10*3/uL [facility] Eosinophils/100 WBC (Bld) 0.9 % 0.0 - 6.0 % [facility] Erythrocyte distribution width (RBC) [Ratio] 12.1 % 11.5 - 15.0 % [facility] Hematocrit (Bld) [Volume fraction] 39.5 % 35.0 - 47.0 % [facility] Hemoglobin (Bld) [Mass/Vol] 13.7 g/dL 11.7 - 16.0 g/dL [facility] Immature granulocytes (Bld) [#/Vol] 0 10*3/uL NINF - 0.1 10*3/uL [facility] Immature granulocytes/100 WBC (Bld) 0.2 % 0.0 - 2.0 % [facility] Interpretation and review of laboratory results Normal [facility] Lymphocytes (Bld) [#/Vol] 2 10*3/uL 1.0 - 4.3 10*3/uL [facility] Lymphocytes/100 WBC (Bld) 30.4 % 15.0 - 45.0 % [facility] MCH (RBC) [Entitic mass] 28.9 pg 26.0 - 34.0 pg [facility] MCHC (RBC) [Mass/Vol] 34.7 % 30.5 - 36.0 % [facility] MCV (RBC) [Entitic vol] 83.3 fL 77.0 - 99.0 fL [facility] Monocytes (Bld) [#/Vol] 0.4 10*3/uL 0.0 - 0.9 10*3/uL [facility] Monocytes/100 WBC (Bld) 6.4 % 5.0 - 13.0 % [facility] Neutrophils (Bld) [#/Vol] 4 10*3/uL 1.8 - 7.5 10*3/uL [facility] Neutrophils/100 WBC (Bld) 61.6 % 38.0 - 82.0 % [facility] Nucleated RBC/100 WBC (Bld) [Ratio] 0 % [facility] Platelet mean volume (Bld) [Entitic vol] 10.1 fL 9.0 - 12.7 fL [facility] Comment on above: MPV is a calculated measurement using platelet volume ratio Platelets (Bld) [#/Vol] 211 10*3/uL 140 - 440 10*3/uL [facility] RBC (Bld) [#/Vol] 4.74 10*6/uL 3.80 - 5.2 0 10*6/uL [facility] WBC (Bld) [#/Vol] 6.4 10*3/uL 3.6 - 10.7 10*3/uL [facility] CBC WITH AUTO DIFFERENTIALon 10-30-2024 Basophils (Bld) [#/Vol] 0.0 10*3/uL Normal 0.0-0.2 [facility] Comment on above: Performed By: #### L [id number] ####Fuel Oil Clerk: ALBERTINA SAUNDERS ([id number])[facility] ([facility])[address] [place] [address] [place] Basophils/100 WBC (Bld) 0.5 % Normal 0.0-2.0 [facility] Comment on above: Performed By: #### L [id number] ####Fuel Oil Clerk: ALBERTINA SAUNDERS ([id number])[facility] ([facility])[address] [place] [address] [place] Eosinophils (Bld) [#/Vol] 0.1 10*3/uL Normal 0.0-0.5 [facility] Comment on above: Performed By: #### L [id number] ####Fuel Oil Clerk: ALBERTINA SAUNDERS ([id number])[facility] (SW[facility])[address] [place] [address] [place] Eosinophils/100 WBC (Bld) 0.9 % Normal 0.0-6.0 [facility] Comment on above: Performed By: #### L [id number] ####Fuel Oil Clerk: ALBERTINA SAUNDERS ([id number])[facility] (SW[facility])[address] [place] [address] Erythrocyte distribution width (RBC) [Ratio] 12.1 % Normal 11.5-15.0 [facility] Comment on above: Performed By: #### L [id number] ####Fuel Oil Clerk: ALBERTINA SAUNDERS ([id number])[facility] (SW[facility])[address] [place] [address] Hematocrit (Bld) [Volume fraction] 39.5 % Normal 35.0-47.0 [facility] Comment on above: Performed By: #### L [id number] ####Fuel Oil Clerk: ALBERTINA SAUNDERS ([id number])[facility] (SWRL[facility])[address] [place] [address] Hemoglobin (Bld) [Mass/Vol] 13.7 g/dL Normal 11.7-16.0 [facility] Comment on above: Performed By: #### L [id number] ####Fuel Oil Clerk: ALBERTINA SAUNDERS ([id number])[facility] (SW[facility])[address] [place] [address] IMMATURE GRANS % 0.2 % Normal 0.0-2.0 [facility] Comment on above: Performed By: #### L [id number] ####Fuel Oil Clerk: ALBERTINA SAUNDERS ([id number])[facility] (SW[facility])[address] [place] [address] IMMATURE GRANS ABSOLUTE 0.0 10*3/uL Normal <0.1 [facility] Comment on above: Performed By: #### L [id number] ####Fuel Oil Clerk: ALBERTINA SAUNDERS ([id number])[facility] (SW[facility])[address] [place] [address] Lymphocytes (Bld) [#/Vol] 2.0 10*3/uL Normal 1.0-4.3 [facility] Comment on above: Performed By: #### L [id number] ####Fuel Oil Clerk: ALBERTINA SAUNDERS ([phone])[facility] (SW[facility])[address] [place] [address] [place] Lymphocytes/100 WBC (Bld) 30.4 % Normal 15.0-45.0 [facility] Comment on above: Performed By: #### L [id number] ####Fuel Oil Clerk: ALBERTINA SAUNDERS ([id number])[facility] (SWRL[facility])[address] [place] [address] MCH (RBC) [Entitic mass] 28.9 pg Normal 26.0-34.0 [facility] Comment on above: Performed By: #### L [id number] ####Fuel Oil Clerk: ALBERTINA SAUNDERS ([id number])[facility] (SWRL[facility])[address] [place] [address] MCHC 34.7 % Normal 30.5-36.0 [facility] Comment on above: Performed By: #### L [id number] ####Fuel Oil Clerk: ALBERTINA SAUNDERS ([id number])[facility] (SWRL[facility])[address] [place] [address] MCV (RBC) [Entitic vol] 83.3 fL Normal 77.0-99.0 [facility] Comment on above: Performed By: #### L [id number] ####Fuel Oil Clerk: ALBERTINA SAUNDERS ([id number])[facility] (SWRL[facility])[address] [place] [address] [place] Monocytes (Bld) [#/Vol] 0.4 10*3/uL Normal 0.0-0.9 [facility] Comment on above: Performed By: #### L [id number] ####Fuel Oil Clerk: ALBERTINA SAUNDERS ([id number])[facility] (SW[facility])[address] [place] [address] [place] Monocytes/100 WBC (Bld) 6.4 % Normal 5.0-13.0 [facility] Comment on above: Performed By: #### L [id number] ####Fuel Oil Clerk: ALBERTINA SAUNDERS ([id number])[facility] (SW[facility])[address] [place] [address] NEUTROPHILS ABSOLUTE 4.0 10*3/uL Normal 1.8-7.5 [facility] Comment on above: Performed By: #### L [id number] ####Fuel Oil Clerk: ALBERTINA SAUNDERS ([id number])[facility] ([facility])[address] [place] [address] Neutrophils/100 WBC (Bld) 61.6 % Normal 38.0-82.0 [facility] Comment on above: Performed By: #### L [id number] ####Fuel Oil Clerk: ALBERTINA SAUNDERS ([id number])[facility] (SW[facility])[address] [place] [address] NRBC 0.0 /100 WBCs Normal 0.0-2.0 [facility] Comment on above: Performed By: #### L [id number] ####Fuel Oil Clerk: ALBERTINA SAUNDERS ([id number])[facility] ([facility])[address] [place] [address] Platelet mean volume (Bld) [Entitic vol] 10.1 fL Normal 9.0-12.7 [facility] Comment on above: Result Comment: MPV is a calculated measurement using platelet volume ratio Performed By: #### L [id number] ####Fuel Oil Clerk: ALBERTINA SAUNDERS ([id number])[facility] ([facility])[address] [place] [address] [place] Platelets (Bld) [#/Vol] 211 10*3/uL Normal 140-440 [facility] Comment on above: Performed By: #### L [id number] ####Fuel Oil Clerk: ALBERTINA SAUNDERS ([id number])[facility] (SW[facility])[address] RBC (Bld) [#/Vol] 4.74 10*6/uL Normal 3.80-5.20 [facility] Comment on above: Performed By: #### L [id number] ####Fuel Oil Clerk: ALBERTINA SAUNDERS ([id number])[facility] ([place])[address] WBC (Bld) [#/Vol] 6.4 10*3/uL Normal 3.6-10.7 [facility] Comment on above: Performed By: #### L [id number] ####Fuel Oil Clerk: ALBERTINA SAUNDERS ([id number])[facility] (SWRL[facility])[address] [place] [address] COMPREHENSIVE METABOLIC PANE Baldo 10-30-2024 Albumin [Mass/Vol] 4.1 g/dL Normal 3.5-5.0 [facility] Comment on above: Performed By: #### L AB113, [id number], LAB17, [id number], VAA695, FUS360 ####Fuel Oil Clerk: ALBERTINA SAUNDERS ([id number])[facility] (SWRL[facility])[address] [place] [address] ALP [Catalytic activity/Vol] 67 U/L Normal 40-150 [facility] Comment on above: Performed By: #### L AB113, [id number], LAB17, [id number], [id number], NRQ461 ####Fuel Oil Clerk: ALBERTINA SAUNDERS ([id number])[facility] (SWRL[facility])[address] [place] [address] ALT [Catalytic activity/Vol] 10 U/L Normal <30 [facility] Comment on above: Performed By: #### L AB113, YSR188, LAB17, [id number], MPA711, QLP492 ####Fuel Oil Clerk: ALBERTINA SAUNDERS ([id number])[facility] (SWRL[facility])[address] [place] [address] [place] Anion gap [Moles/Vol] 12 mmol/L Normal 3-13 [facility] Comment on above: Performed By: #### L AB113, QOH382, LAB17, [id number], FJN537, JQU770 ####Fuel Oil Clerk: ALBERTINA SAUNDERS ([id number])[facility]esar BETANCOURTBULMARO RITTMAN (SWRLAB)[address] AST [Catalytic activity/Vol] 16 U/L Normal <34 [facility] Comment on above: Performed By: #### L AB113, OJS249, LAB17, [id number], [id number], ZSP883 ####Fuel Oil Clerk: ALBERTINA SAUNDERS ([id number])[facility] BETANCOURTBULMARO RITTMAN (SWRLAB)[address] [place] [address] Bilirubin [Mass/Vol] 0.5 mg/dL Normal <1.2 [facility] Comment on above: Performed By: #### L AB113, BBC970, LAB17, [id number], SZL071, TDY534 ####Fuel Oil Clerk: ALBERTINA SAUNDERS ([id number])[facility] BETANCOURTBULMARO RITTMAN (SWRLAB)[address] [place] [address] Calcium [Mass/Vol] 9.4 mg/dL Normal 8.4-10.2 [facility] Comment on above: Performed By: #### L AB113, JBT845, LAB17, [id number], HPA126, ZIR094 ####Fuel Oil Clerk: ALBERTINA SAUNDERS ([id number])[facility] ([facility])[address] [place] [address] Chloride [Moles/Vol] 107 mmol/L Normal 98-107 [facility] Comment on above: Performed By: #### L AB113, HLF941, LAB17, [id number], WDZ045, CGY002 ####Fuel Oil Clerk: ALBERTINA SAUNDERS ([id number])[facility] BETANCOURTBULMARO [facility] (SWRLAB)[address] [place] [address] [place] CO2 [Moles/Vol] 23 mmol/L Normal 22-29 [facility] Comment on above: Performed By: #### L AB113, [id number], LAB17, [id number], KKA186, UPG706 ####Fuel Oil Clerk: ALBERTINA SAUNDERS ([id number])[facility] - CANTONBULMAROPURVI GOMEZTMAN (SWRLAB)[address] [place] [address] [place] Creatinine [Mass/Vol] 0.82 mg/dL Normal 0.57-1.11 [facility] Comment on above: Performed By: #### L AB113, RLM502, LAB17, [id number], VEC345, LQL142 ####Fuel Oil Clerk: ALBERTINA SAUNDERS ([id number])[facility] ([facility])[address] [place] [address] GLOMERULAR FILTRATION RATE ML/MIN/1.73 SQ M.PREDICTED >90.0 Normal >60.0 [facility] Comment on above: Result Comment: Calc ulation based on the Chronic Kidney Disease Epidemiology Collaboration (CKD-EPI) equation refit without adjustment for race Performed By: #### L AB113, WXC803, LAB17, [id number], RJC146, IDX091 ####Fuel Oil Clerk: ALBERTINA SAUNDRES ([id number])[facility] ([facility])[address] [place] [address] [place] Glucose [Mass/Vol] 116 mg/dL High 74-100 [facility] Comment on above: Performed By: #### L AB113, YVS922, LAB17, [id number], EMB333, ZMK888 ####Fuel Oil Clerk: ALBERTINA SAUNDERS ([id number])[facility] ([facility])[address] [place] [address] [place] Potassium [Moles/Vol] 3.7 mmol/L Normal 3.5-5.1 [facility] Comment on above: Result Comment: [facility] potassium values may be up to 0.5 mmol/L lower than serum values. Performed By: #### L AB113, SFS776, LAB17, [id number], ZQA058, XZY297 ####Fuel Oil Clerk: ALBERTINA SAUNDERS ([id number])[facility] (SWRL[facility])[address] Protein [Mass/Vol] 6.6 g/dL Normal 6.4-8.3 [facility] Comment on above: Performed By: #### L AB113, TIN731, LAB17, [id number], GSY597, VZD520 ####Fuel Oil Clerk: ALBERTINA SAUNDERS ([id number])[facility] (SWRLAB)[address] Sodium [Moles/Vol] 142 mmol/L Normal 136-145 [facility] Comment on above: Performed By: #### L AB113, QIZ996, LAB17, [id number], MZQ326, TUX914 ####Fuel Oil Clerk: ALBERTINA SAUNDERS ([id number])[facility] (SWRLAB)[address] [place] [address] Urea nitrogen [Mass/Vol] 9 mg/dL Normal 8-21 [facility] Comment on above: Performed By: #### L AB113, KHJ297, LAB17, [id number], XPG417, IMU927 ####Fuel Oil Clerk: ALBERTINA SAUNDERS ([id number])[facility] (SWRL[facility])[address] [place] [address] Comprehensive metabolic 1998 panelon 10-30-2024 Albumin [Mass/Vol] 4.1 g/dL 3.5 - 5.0 g/dL [facility] ALP [Catalytic activity/Vol] 67 U/L 40 - 150 U/L [facility] ALT [Catalytic activity/Vol] 10 U/L NINF - 30 U/L [facility] Anion gap [Moles/Vol] 12 mmol/L 3 - 13 mmol/L [facility] AST [Catalytic activity/Vol] 16 U/L NINF - 34 U/L [facility] Bilirubin [Mass/Vol] 0.5 mg/dL NINF - 1.2 mg/dL [facility] Calcium [Mass/Vol] 9.4 mg/dL 8.4 - 10. 2 mg/dL [facility] Chloride [Moles/Vol] 107 mmol/L 98 - 10 7 mmol/L [facility] CO2 [Moles/Vol] 23 mmol/L 22 - 29 mmol/L [facility] Creatinine [Mass/Vol] 0.82 mg/dL 0.57 - 1.11 mg/dL [facility] GFR/1.73 sq M.predicted (S/P/Bld) [Vol rate/Area] - PINF [facility] Comment on above: Calculation based on the Chronic Kidney Disease Epidemiology Collaboration (CKD-EPI) equation refit without adjustment for race Glucose [Mass/Vol] 116 mg/dL High 74 - 100 mg/dL [facility] Interpretation and review of laboratory results Abnormal [facility] Potassium [Moles/Vol] 3.7 mmol/L 3.5 - 5.1 mmol/L [facility] Comment on above: Plasma potassium eliezer ues may be up to 0.5 mmol/L lower than serum values. Protein [Mass/Vol] 6.6 g/dL 6.4 - 8.3 g/dL [facility] Sodium [Moles/Vol] 142 mmol/L 136 - 145 mmol/L [facility] Urea nitrogen [Mass/Vol] 9 mg/dL 8 - 21 mg/dL [facility] ECG 12-LEADon 10-30-2024 ECG 12-LEAD IMPRESSION: EKG shows NSR, normal axis, normal [place] QRS and QTC intervals, no STEMI, no SVT, no LVH. No dysrhythmia, no heart block. Previous EKG NSR. Electronically Signed On 10-30-2024 23:24:57 EDT by Jamal Almaguer Normal [facility] ED Nursing Noteon 10-30-2024 ED Nursing Note Pt to ED with facial numbness in her face that woke her out of her sleep. Heaviness to bilateral arms, feels like heart is racing. Normal [facility] ED Provider Noteon ED Provider Note Normal [facility] FREE T4on 10-30-2024 Free T4 [Mass/Vol] 1.27 ng/dL Normal 0.70-1.48 [facility] Comment on above: Performed By: #### L AB127, MJS552 ####Fuel Oil Clerk: ALBERTINA SAUNDERS ([id number])[facility] ([facility])[address] [place] [address] [place] Free T4 [Mass/Vol]on 025 Free T4 Dialysis [Mass/Vol] 1.27 ng/dL 0.70 - 1.48 ng/dL [facility] HCG QUANTITATIVE BLOODon HCG QUANTITATIVE <2.5 Normal Females <5 [facility] Comment on above: Result Comment: YESENIA Melendez COMMENTS:Values in should double every 2 to 3 days for the first 6 weeks. Elevated concentrations of human chorionic gonadotropin (hCG) measured in the first trimester of are observed in normal , but may serve as an indication of chorionic carcinoma, hydatiform mole, or multiple . Decreasing hCG concentrations indicate threatened or missed , recent termination of , ectopic , gestosis or intrauterine . Elizabeth- and postmenopausal females may have detectable hCG concentrations (< or = to 14 mIU/mL) due to pituitary production of hCG. Serum follicle-stimulating hormone measurement may aid in ruling-out in this population. Cutoffs of greater than 20 to 45 mIU/mL have been suggested and are method dependent. False-elevations (called phantom human chorionic gonadotropin: hCG) may occur with patients who have human antianimal or heterophilic antibodies. Some specimens may not dilute linearly due to abnormal forms of hCG. Elevated hCG concentrations not associated with are found in patients with other diseases such as tumors of the germ cells, ovaries, bladder, pancreas, stomach, lungs, and liver. This test is not intended to detect or monitor tumors or gestational trophoblastic disease. Performed By: #### L AB113, TJK609, LAB17, [id number], IKF607, VVH182 ####Fuel Oil Clerk: ALBERTINA SAUNDERS ([id number])[facility] (SWRLAB)[address] [place] [address] [place] HIGH SENSITIVITY TROPONIN, S ERIAL BASELINEon 10-30-2024 TROPONIN HS SERIAL BASELINE <3 Normal <=14 [facility] Comment on above: Result Comment: In i ndividuals presenting with symptoms > 2h, a baseline troponin <= 5 ng/L suggests acutecardiac injury is unlikely and further serial testing is generally not indicated. Performed By: #### L AB113, YKN143, LAB17, [id number], EGJ058, HNT899 ####Fuel Oil Clerk: ALBERTINA SAUNDERS ([id number])[facility] ([facility])[address] [place] [address] Laboratory - Chemistry and C hemistry - challengeon 10-30-2024 TSH Qn 1.46 m[IU]/L [facility] HCG.beta subunit Qn Females <5 mIU/mL [facility] Magnesium [Mass/Vol] 2 mg/dL 1.6 - 2 .6 mg/dL [facility] MAGNESIUMon 10-30-2024 Magnesium [Mass/Vol] 2.0 mg/dL Normal 1.6-2.6 [facility] Comment on above: Result Comment: YESENIA Melendez COMMENTS:Higher values can be expected in females during menses. Performed By: #### L AB113, XOC435, LAB17, [id number], [id number], BRG989 ####Fuel Oil Clerk: ALBERTINA SAUNDERS ([id number])[facility]URVI [facility] ([facility])[address] [place] [address] Magnesium [Mass/Vol]on 10-30 Higher values can be expected in females during menses. [facility] NT PRO BNPon 10-30-2024 NT PRO BNP <16 Normal <105 [facility] Comment on above: Result Comment: YESENIA Melendez COMMENTS:NT-proBNP (pg/mL) Rule-In Rule-OutAge (y)/Presentation ??? <50 ???50-75 ???>75 ? AllAcute >450??? >900 ???>1800 ? <300Non-Acute ? >600 ???>600 ???>600 ? <125w/CKD ? >1200Patients with levels in the waite zone (between rule-out and rule-in levels) need extra physician attention and ancillary testing. Testing is performed on a new assay on a new. Performed By: #### L AB113, CPZ274, LAB17, [id number], [id number], VCT209 ####Fuel Oil Clerk: ALBERTINA SAUNDERS ([id number])[facility] (SWRLAB)[address] [place] [address] Natriuretic peptide B [Mass/ Vol]on 10-30-2024 Natriuretic peptide B (Bld) [Mass/Vol] pg/mL NINF - 105 pg/mL [facility] NT-proBNP (pg/mL) Rule-In Rule-Out Age (y)/Presentation <50 50-75 >75 All Acute >450 >900 >1800 <300 Non-Acute >600 >600 >600 <125 w/CKD >1200 Patients with levels in the waite zone (between rule-out and rule-in levels) need extra physician attention and ancillary testing. Testing is performed on a new assay on a new. [facility] No Panel Informationon 10-30 Interpretation and review of laboratory results Normal [facility] Interpretation and review of laboratory results Normal [facility] Troponin HS Serial Baseline ng/L NINF - 14 ng/L [facility] Comment on above: In individuals prese nting with symptoms > 2h, a baseline troponin <= 5 ng/L suggests acute cardiac injury is unlikely and further serial testing is generally not indicated. [facility] Values in should double every 2 to 3 days for the first 6 weeks. Elevated concentrations of human chorionic gonadotropin (hCG) measured in the first trimester of are observed in normal , but may serve as an indication of chorionic carcinoma, hydatiform mole, or multiple . Decreasing hCG concentrations indicate threatened or missed , recent termination of , ectopic , gestosis or intrauterine . Elizabeth- and postmenopausal females may have detectable hCG concentrations (< or = to 14 mIU/mL) due to pituitary production of hCG. Serum follicle-stimulating hormone measurement may aid in ruling-out in this population. Cutoffs of greater than 20 to 45 mIU/mL have been suggested and are method dependent. False-elevations (called phantom human chorionic gonadotropin: hCG) may occur with patients who have human antianimal or heterophilic antibodies. Some specimens may not dilute linearly due to abnormal forms of hCG. Elevated hCG concentrations not associated with are found in patients with other diseases such as tumors of the germ cells, ovaries, bladder, pancreas, stomach, lungs, and liver. This test is not intended to detect or monitor tumors or gestational trophoblastic disease. [facility] Interpretation and review of laboratory results Normal [facility] P [place] 57 degrees [facility] [place] Interval 146 ms [facility] QRS [place] 58 degrees [facility] QRSD Interval 94 ms [facility] QT Interval 356 ms [facility] QTC Interval 440 ms [facility] T Wave [place] 3 degrees [facility] EKG shows NSR, lexus l axis, normal [place] QRS and QTC intervals, no STEMI, no SVT, no LVH. No dysrhythmia, no heart block. Previous EKG NSR. Electronically Signed On 10-30-2024 23:24:57 EDT by Jamal Amezquita MD - 10/30/2024 IMPRESSION: EKG shows NSR, normal axis, normal [place] QRS and QTC intervals, no STEMI, no SVT, no LVH. No dysrhythmia, no heart block. Previous EKG NSR. Electronically Signed On 10-30-2024 23:24:57 EDT by Jamal Almaguer [facility] PHOSPHORUSon 10-30-2024 Phosphate [Mass/Vol] 3.7 mg/dL Normal 2.3-4.7 [facility] Comment on above: Performed By: #### L AB113, [id number], [id number], [id number], [id number], [id number] ####Fuel Oil Clerk: ALBERTINA SAUNDERS ([id number])[facility] - CANTONBULMAROPURVI AMADOR ([facility]ENTERLAB[address] Phosphate [Moles/Vol]on 10-07 Phosphate [Mass/Vol] 3.7 mg/dL 2.3 - 4 .7 mg/dL [facility] THYROID STIMULATING HORMONEo n 10-30-2024 THYROID STIMULATING HORMONE 1.46 uIU/mL Normal 0.35-4.94 [facility] Comment on above: Performed By: #### L AB127, [id number] ####Fuel Oil Clerk: ALBERTINA SAUNDERS ([id number])[facility] ([facility])[address] Vital signson 10-30-2024 Heart rate 91 /min bpm [facility] 25-hydroxyvitamin D3 [Mass/V ol]on 10-29-2024 Target concentration : 30 - 40 ng/mL; toxicity seen at concentrations >100 ng/mL Less than 20 ng/mL: Indicative of Vit D deficiency Test performed by Not iT, measuring Total Vitamin D, not individual fractions. [facility] [id number] 10-29-2024 [id number] Normal [facility] [id number] Normal [facility] 36on 10-29-2024 36 Normal [facility] CBC (HEMOGRAM)on 10-29-2024 Erythrocyte distribution width (RBC) [Ratio] 11.9 % Normal 11.5-15.0 [facility] Comment on above: Performed By: #### L [id number] ####Fuel Oil Clerk: ALBERTINA SAUNDERS ([id number])[facility])[address] [place] [address] Hematocrit (Bld) [Volume fraction] 41.6 % Normal 35.0-47.0 [facility] Comment on above: Performed By: #### L AB294 ####Fuel Oil Clerk: ALBERTINA SAUNDERS ([id number])[facility])[address] [place] [address] Hemoglobin (Bld) [Mass/Vol] 14.0 g/dL Normal 11.7-16.0 [facility] Comment on above: Performed By: #### L AB294 ####Fuel Oil Clerk: ALBERTINA SAUNDERS ([id number])[facility])[address] [place] [address] MCH (RBC) [Entitic mass] 28.5 pg Normal 26.0-34.0 [facility] Comment on above: Performed By: #### L AB294 ####Fuel Oil Clerk: ALBERTINA SAUNDERS ([id number])[facility])[address] [place] [address] MCHC 33.7 % Normal 30.5-36.0 [facility] Comment on above: Performed By: #### L AB294 ####Fuel Oil Clerk: ALBERTINA SAUNDERS ([id number])[facility])[address] [place] [address] MCV (RBC) [Entitic vol] 84.6 fL Normal 77.0-99.0 [facility] Comment on above: Performed By: #### L AB294 ####Fuel Oil Clerk: ALBERTINA SAUNDERS ([id number])[facility])[address] [place] [address] Platelet mean volume (Bld) [Entitic vol] 10.0 fL Normal 9.0-12.7 [facility] Comment on above: Performed By: #### L AB294 ####Fuel Oil Clerk: ALBERTINA SAUNDERS ([id number])[facility])[address] [place] [address] Platelets (Bld) [#/Vol] 205 10*3/uL Normal 140-440 [facility] Comment on above: Performed By: #### L AB294 ####Fuel Oil Clerk: ALBERTINA SAUNDERS ([id number])[facility])[address] [place] [address] RBC (Bld) [#/Vol] 4.92 10*6/uL Normal 3.80-5.20 [facility] Comment on above: Performed By: #### L AB294 ####Fuel Oil Clerk: ALBERTINA SAUNDERS ([id number])[facility])[address] [place] [address] WBC (Bld) [#/Vol] 5.9 10*3/uL Normal 3.6-10.7 [facility] Comment on above: Performed By: #### L [id number] ####Fuel Oil Clerk: ALBERTINA SAUNDERS ([id number])[facility])[address] [place] [address] CBC panel Auto (Bld)on 10-29 Erythrocyte distribution width (RBC) [Ratio] 11.9 % 11.5 - 15.0 % [facility] Hematocrit (Bld) [Volume fraction] 41.6 % 35.0 - 47.0 % [facility] Hemoglobin (Bld) [Mass/Vol] 14 g/dL 11.7 - 16.0 g/dL [facility] Interpretation and review of laboratory results Normal [facility] MCH (RBC) [Entitic mass] 28.5 pg 26.0 - 34.0 pg [facility] MCHC (RBC) [Mass/Vol] 33.7 % 30.5 - 36.0 % [facility] MCV (RBC) [Entitic vol] 84.6 fL 77.0 - 99.0 fL [facility] Platelet mean volume (Bld) [Entitic vol] 10 fL 9.0 - 12.7 fL [facility] Platelets (Bld) [#/Vol] 205 10*3/uL 140 - 440 10*3/uL [facility] RBC (Bld) [#/Vol] 4.92 10*6/uL 3.80 - 5.2 0 10*6/uL [facility] WBC (Bld) [#/Vol] 5.9 10*3/uL 3.6 - 10.7 10*3/uL [facility] COMPREHENSIVE METABOLIC PANE Baldo 10-29-2024 Albumin [Mass/Vol] 4.0 g/dL Normal 3.5-5.0 [facility] Comment on above: Performed By: #### L AB18, LAB17 ####Fuel Oil Clerk: ALBERTINA SAUNDERS ([id number])[address] ALP [Catalytic activity/Vol] 56 U/L Normal 40-150 [facility] Comment on above: Performed By: #### L AB18, LAB17 ####Fuel Oil Clerk: ALBERTINA SAUNDERS ([id number])[facility] ([facility])[address] [place] [address] ALT [Catalytic activity/Vol] 13 U/L Normal <30 [facility] Comment on above: Performed By: #### L AB18, LAB17 ####Fuel Oil Clerk: ALBERTINA SAUNDERS ([id number])[facility] ([facility])[address] [place] [address] Anion gap [Moles/Vol] 10 mmol/L Normal 3-13 [facility] Comment on above: Performed By: #### L AB18, LAB17 ####Fuel Oil Clerk: ALBERTINA SAUNDERS ([id number])[facility])[address] [place] [address] AST [Catalytic activity/Vol] 20 U/L Normal <34 [facility] Comment on above: Performed By: #### L AB18, LAB17 ####Fuel Oil Clerk: ALBERTINA SAUNDERS ([id number])[facility] ([facility])[address] [place] [address] Bilirubin [Mass/Vol] 1.0 mg/dL Normal <1.2 [facility] Comment on above: Performed By: #### L AB18, LAB17 ####Fuel Oil Clerk: ALBERTINA SAUNDERS ([id number])[facility] ([facility])[address] [place] [address] Calcium [Mass/Vol] 9.0 mg/dL Normal 8.4-10.2 [facility] Comment on above: Performed By: #### L AB18, LAB17 ####Fuel Oil Clerk: ALBERTINA SAUNDERS ([id number])[facility] ([facility])[address] [place] [address] Chloride [Moles/Vol] 107 mmol/L Normal 98-107 [facility] Comment on above: Performed By: #### L AB18, LAB17 ####Fuel Oil Clerk: ALBERTINA SAUNDERS ([id number])[facility] ([facility])[address] [place] [address] [place] CO2 [Moles/Vol] 23 mmol/L Normal 22-29 [facility] Comment on above: Performed By: #### L AB18, LAB17 ####Fuel Oil Clerk: ALBERTINA SAUNDERS ([id number])[facility])[address] [place] [address] Creatinine [Mass/Vol] 0.81 mg/dL Normal 0.57-1.11 [facility] Comment on above: Performed By: #### L AB18, LAB17 ####Fuel Oil Clerk: ALBERTINA SAUNDERS ([id number])[facility])[address] [place] [address] [place] GLOMERULAR FILTRATION RATE ML/MIN/1.73 SQ M.PREDICTED >90.0 Normal >60.0 [facility] Comment on above: Result Comment: Calc ulation based on the Chronic Kidney Disease Epidemiology Collaboration (CKD-EPI) equation refit without adjustment for race Performed By: #### Lola TANG, LAB17 ####Fuel Oil Clerk: ALBERTINA SAUNDERS ([id number])[facility] ([facility])[address] [place] [address] [place] Glucose [Mass/Vol] 68 mg/dL Low 74-100 [facility] Comment on above: Performed By: #### Lola TANG, LAB17 ####Fuel Oil Clerk: ALBERTINA SAUNDERS ([id number])[facility])[address] [place] [address] [place] Potassium [Moles/Vol] 3.9 mmol/L Normal 3.5-5.1 [facility] Comment on above: Result Comment: [facility] potassium values may be up to 0.5 mmol/L lower than serum values. Performed By: #### Lola TANG, LAB17 ####Fuel Oil Clerk: ALBERTINA SAUNDERS ([id number])[facility])[address] [place] [address] [place] Protein [Mass/Vol] 6.6 g/dL Normal 6.4-8.3 [facility] Comment on above: Performed By: #### Lola JONES18, LAB17 ####Fuel Oil Clerk: ALBERTINA SAUNDERS ([id number])[facility])[address] [place] [address] [place] Sodium [Moles/Vol] 140 mmol/L Normal 136-145 [facility] Comment on above: Performed By: #### L AB18, LAB17 ####Fuel Oil Clerk: ALBERTINA SAUNDERS ([id number])[facility])[address] [place] [address] [place] Urea nitrogen [Mass/Vol] 13 mg/dL Normal 8-21 [facility] Comment on above: Performed By: #### L AB18, LAB17 ####Fuel Oil Clerk: ALBERTINA SAUNDERS ([id number])[facility] ([facility] Comprehensive metabolic 1998 panelon 10-29-2024 Albumin [Mass/Vol] 4 g/dL 3.5 - 5.0 g/dL [facility] ALP [Catalytic activity/Vol] 56 U/L 40 - 150 U/L [facility] ALT [Catalytic activity/Vol] 13 U/L NINF - 30 U/L [facility] Anion gap [Moles/Vol] 10 mmol/L 3 - 13 mmol/L [facility] AST [Catalytic activity/Vol] 20 U/L NINF - 34 U/L [facility] Bilirubin [Mass/Vol] 1 mg/dL NINF - 1.2 mg/dL [facility] Calcium [Mass/Vol] 9 mg/dL 8.4 - 10. 2 mg/dL [facility] Chloride [Moles/Vol] 107 mmol/L 98 - 10 7 mmol/L [facility] CO2 [Moles/Vol] 23 mmol/L 22 - 29 mmol/L [facility] Creatinine [Mass/Vol] 0.81 mg/dL 0.57 - 1.11 mg/dL [facility] GFR/1.73 sq M.predicted (S/P/Bld) [Vol rate/Area] - PINF [facility] Comment on above: Calculation based on the Chronic Kidney Disease Epidemiology Collaboration (CKD-EPI) equation refit without adjustment for race Glucose [Mass/Vol] 68 mg/dL Low 74 - 100 mg/dL [facility] Potassium [Moles/Vol] 3.9 mmol/L 3.5 - 5.1 mmol/L [facility] Comment on above: Plasma potassium eliezer ues may be up to 0.5 mmol/L lower than serum values. Protein [Mass/Vol] 6.6 g/dL 6.4 - 8.3 g/dL [facility] Sodium [Moles/Vol] 140 mmol/L 136 - 145 mmol/L [facility] Urea nitrogen [Mass/Vol] 13 mg/dL 8 - 21 mg/dL [facility] Consulton 10-29-2024 Consult Normal [facility] Consult Normal [facility] ECG 12-LEADon 10-29-2024 ECG 12-LEAD IMPRESSION: Sinus rhythm Compared to ECG 10/28/2024 07:42:37 No significant changes Electronically Signed On 10-29-2024 18:22:39 EDT by Liang Curtis Normal [facility] FREE T4on 10-29-2024 Free T4 [Mass/Vol] 1.11 ng/dL Normal 0.70-1.48 [facility] Comment on above: Performed By: #### L AB535, [id number] ####Fuel Oil Clerk: ALBERTINA SAUNDERS ([id number])[facility] ([facility])[address] [place] [address] Free T4 [Mass/Vol]on 025 Free T4 Dialysis [Mass/Vol] 1.11 ng/dL 0.70 - 1.48 ng/dL [facility] LIPID PANELon 10-29-2024 Cholesterol [Mass/Vol] 240 mg/dL High <200 [facility] Comment on above: Order Comment: If no t done in the last six months. Performed By: #### L AB18, LAB17 ####Fuel Oil Clerk: ALBERTINA SAUNDERS ([id number])[facility])[address] [place] [address] Cholesterol in HDL [Mass/Vol] 103 mg/dL Normal >=60 [facility] Comment on above: Order Comment: If no t done in the last six months. Performed By: #### L AB18, LAB17 ####Fuel Oil Clerk: ALBERTINA SAUNDERS ([id number])[facility])[address] [place] [address] Cholesterol.total/Maria Teresa sterol in HDL [Mass ratio] 2 {ratio} Normal [facility] Comment on above: Order Comment: If no t done in the last six months. Result Comment: Ref Range:< 3 Low Risk for CHD3-6 Mod Risk for CHD> 6 High Risk for CHD Performed By: #### L AB18, LAB17 ####Fuel Oil Clerk: ALBERTINA SAUNDERS ([id number])[facility] ([facility])[address] [place] [address] LOW DENSITY LIPOPROTEIN 127 mg/dL High 0-<100 [facility] Comment on above: Order Comment: If no t done in the last six months. Performed By: #### L AB18, LAB17 ####Fuel Oil Clerk: ALBERTINA SAUNDERS ([id number])[facility])[address] [place] [address] NON-HDL CHOLESTEROL, CALCULATED 137 High <130 [facility] Comment on above: Order Comment: If no t done in the last six months. Performed By: #### L AB18, LAB17 ####Fuel Oil Clerk: ALBERTINA SAUNDERS ([id number])[facility])[address] [place] [address] Triglyceride [Mass/Vol] 51 mg/dL Normal <150 [facility] Comment on above: Order Comment: If no t done in the last six months. Performed By: #### L AB18, LAB17 ####Fuel Oil Clerk: ALBERTINA SAUNDERS ([id number])[facility])[address] [place] [address] VERY LOW DENSITY LIPOPROTEIN, CALCULATED 10 mg/dL Normal <=30 [facility] Comment on above: Order Comment: If no t done in the last six months. Performed By: #### L AB18, LAB17 ####Fuel [employer] Clerk: ALBERTINA SAUNDERS ([id number])[facility])[address] [place] [address] Laboratory - Chemistry and C hemistry - challengeon 10-29-2024 25-hydroxyvitamin D3 [Mass/Vol] 45 ng/mL 20 - 50 ng/mL [facility] Lipid 1996 panelon 5 Cholesterol [Mass/Vol] 240 mg/dL High NINF - 200 mg/dL [facility] Cholesterol in HDL [Mass/Vol] 103 mg/dL 60 - PINF mg/dL [facility] Cholesterol in LDL [Mass/Vol] 127 mg/dL High 0 - <100 [facility] Cholesterol.total/Maria Teresa sterol in HDL [Mass ratio] 2 {ratio} [facility] Comment on above: Ref Range: < 3 Low Risk for CHD 3-6 Mod Risk for CHD > 6 High Risk for CHD NON-HDL CHOLESTEROL, CALCULATED 137 High NINF - 130 [employer] Triglyceride [Mass/Vol] 51 mg/dL NINF - 150 mg/dL [facility] VERY LOW DENSITY LIPOPROTEIN, CALCULATED 10 mg/dL [facility] - 30 mg/dL [employer] No Panel InformationOrdered By: Liang Curtis on 10-29-2024 P [place] 64 degrees [employer] Work Phone: [place] Interval 164 ms [employer] Work Phone: [phone] QRS [place] 71 degrees [employer] Work Phone: QRSD Interval 91 ms [employer] Work Phone: [phone] QT Interval 405 ms [employer] Work Phone: [phone] QTC Interval 445 ms [employer] Work Phone: T Wave [place] 60 degrees [employer] Work Phone: [employer] Work Phone: No Panel Informationon 10-29 Sinus rhythm Compared to ECG 10/28/2024 07:42:37 No significant changes Electronically Signed On 10-29-2024 18:22:39 EDT by Liang Curtis CV Liang Barker MD - 10/29/2024 IMPRESSION: Sinus rhythm Compared to ECG 10/28/2024 07:42:37 No significant changes Electronically Signed On 10-29-2024 18:22:39 EDT by Liang Curtis [facility] Interpretation and review of laboratory results Normal [facility] Interpretation and review of laboratory results Abnormal [facility] Nursing Noteon 10-29-2024 Nursing Note Normal [facility] Progress Noteon 10-29-2024 Progress Note Normal [facility] US Heart TransthoracicOrdere d By: Joe Franco on 10-29-2024 Ao Root Index 1.74 cm/m2 [employer] Work Phone: [phone] Aortic Root 3.2 cm [employer] Phone: Aortic valve Mean systole pressure gradient by US.doppler derived full Bernoulli 4 mmHg [employer] Work Phone: [phone] Aortic valve Orifice area by US 4.2 cm2 [facility] Work Phone: Aortic valve Peak systolic flow by US.doppler 0.9 m/s [facility] [employer] Phone: Ascending Aorta 2.5 cm [facility] Work Phone: Ascending Aorta Index 1.36 cm/m2 [place] [employer] Phone: AV Area by Peak Velocity 3.8 cm2 [facility] [employer] Work Phone: AV Area by VTI 3.8 cm2 [facility] [employer] Work Phone: AV Peak Gradient 7 mmHg [facility] Work Phone: AV Peak Velocity 1.3 m/s [facility] [employer] Phone: AV Velocity Ratio 0.92 [facility] [employer] Phone: AV VTI 23.5 cm [facility] [employer] Phone: GUS/BSA Peak Velocity 2.1 cm2/m2 [place] [employer] Work Phone: GUS/BSA VTI 2.1 cm2/m2 [facility] [employer] Phone: E/E' Lateral 4.1 [facility] [employer] Phone: E/E' Ratio (Averaged) 5.2 [place] [employer] Work Phone: E/E' Septal 6.31 [facility] [employer] Phone: Est. RA Pressure 3 mmHg [facility] [employer] Work Phone: Fractional Shortening 2D 36 % 28 - 44 % [facility] [employer] Phone: Interpretation and review of laboratory results Abnormal [facility] [employer] Phone: IVC Diameter 1.6 cm [facility] [employer] Work Phone: IVSd 0.8 cm 0.6 - 0.9 cm [facility] [employer] Phone: LA Diameter 3.3 cm [facility] [employer] Work Phone: LA Size Index 1.79 cm/m2 [facility] [employer] Phone: LA Volume 2C 32 mL 22 - 52 mL [facility] [employer] Work Phone: LA Volume 4C 33 mL 22 - 52 mL [facility] [employer] Work Phone: LA Volume A/L 37 mL [facility] [employer] Work Phone: LA Volume BP 34 mL 22 - 52 mL [facility] [employer] Work Phone: LA Volume Index 2C 17 mL/m2 16 - 34 mL/m2 [facility] [employer] Work Phone: LA Volume Index 4C 18 mL/m2 16 - 34 mL/m2 [facility] [employer] Work Phone: LA Volume Index A/L 20 mL/m2 16 - 34 mL/m2 [facility] [employer] Work Phone: LA Volume Index BP 18 ml/m2 16 - 34 ml/m2 [facility] Work Phone: LA/AO Root Ratio 1.03 [facility] [employer] Work Phone: Left ventricular Ejection fraction by US.2D+Calculated by biplane method of disks 54 % Abnormal 55 - 100 % [facility] [employer] Work Phone: LV E' Lateral Velocity 20 cm/s [facility] Work Phone: LV E' Septal Velocity 13 cm/s [facility] Work Phone: LV EDV A2C 129 mL [facility] Work Phone: LV EDV A4C 135 mL [facility] [employer] Work Phone: LV EDV BP 139 mL Abnormal 56 - 104 mL [facility] [employer] Work Phone: LV EDV Index A2C 70 mL/m2 [facility] [employer] Work Phone: LV EDV Index A4C 73 mL/m2 [facility] [employer] Work Phone: LV EDV Index BP 76 mL/m2 [facility] [employer] Work Phone: LV Ejection Fraction A2C 59 % [facility] [employer] Work Phone: LV Ejection Fraction A4C 50 % [facility] [employer] Work Phone: LV ESV A2C 53 mL [facility] [employer] Work Phone: LV ESV A4C 67 mL [facility] [employer] Work Phone: LV ESV BP 63 mL Abnormal 19 - 49 mL [facility] Phone: LV ESV Index A2C 29 mL/m2 [facility] Work Phone: LV ESV Index A4C 36 mL/m2 [facility] Work Phone: LV ESV Index BP 34 mL/m2 [facility] [employer] Work Phone: LV Mass 2D 104.5 g 67 - 162 g [facility] [employer] Work Phone: LV Mass 2D Index 56.8 g/m2 43 - 95 g/m2 [facility] [employer] Work Phone: LV RWT Ratio 0.31 [facility] Work Phone: LVIDd 4.5 cm 3.9 - 5.3 cm [facility] [employer] Work Phone: LVIDd Index 2.45 cm/m2 [facility] Work Phone: LVIDs 2.9 cm [facility] Work Phone: LVIDs Index 1.58 cm/m2 [facility] Work Phone: LVOT Cardiac Output 7.6 liter/minute [facility] Work Phone: LVOT Diameter 2.3 cm [facility] Work Phone: LVOT Mean Gradient 3 mmHg [facility] Work Phone: LVOT Peak Gradient 6 mmHg [facility] [employer] Work Phone: LVOT Peak Velocity 1.2 m/s [facility] [employer] Work Phone: LVOT Stroke Volume Index 48.7 mL/m2 [facility] Work Phone: LVOT SV 89.7 ml [facility] Work Phone: LVOT VTI 21.6 cm [facility] Work Phone: LVOT:AV VTI Index 0.92 [facility] Work Phone: LVPWd 0.7 cm 0.6 - 0.9 cm [employer] Phone: MV A Velocity 0.81 m/s [employer] Work Phone: MV E Velocity 0.82 m/s [employer] Phone: MV E Wave Deceleration Time 197.3 ms [employer] Phone: MV E/A 1.01 [employer] Phone: RA Area 4C 35.5 mL [employer] Work Phone: RA Area 4C 35 mL [employer] Phone: RV Basal Dimension 3.1 cm [employer] Phone: RV Free Wall Peak S' 15 cm/s [facility] Phone: RV Longitudinal Dimension 7.7 cm [employer] Phone: RV Mid Dimension 3 cm [employer] Phone: RVSP 25 mmHg [employer] Phone: TAPSE 3.3 cm 1.7 cm [employer] Phone: TR Max Velocity 2.35 m/s [employer] Phone: TR Peak Gradient 22 mmHg [employer] Phone: [employer] Phone: US Heart Transthoracicon Left Ventricle: Left ventricle size is normal. Normal wall thickness. Normal left ventricular systolic function. EF by 2D Simpsons Biplane is 54%. Normal wall motion. Normal diastolic function. Right Ventricle: Right ventricle size is normal. Normal systolic function. Tricuspid Valve: Normal RVSP. RVSP is 25 mmHg. Aorta: Not well visualized. Normal sized sinuses of Valsalva and ascending aorta. No significant valvular abnormalities. Left Ventricle Left ventricle size is normal. Normal wall thickness. Normal left ventricular systolic function. EF by 2D Simpsons Biplane is 54%. Normal wall motion. Normal diastolic function. Right Ventricle Right ventricle size is normal. Normal systolic function. Left Atrium Left atrium size is normal. Right Atrium Right atrium size is normal. IVC/SVC IVC diameter is normal and decreases greater than 50% during inspiration; therefore the estimated right atrial pressure is normal (~3 mmHg). Mitral Valve Valve structure is normal. Trace regurgitation. No stenosis noted. Tricuspid Valve Valve structure is normal. Trace regurgitation. Normal RVSP. RVSP is 25 mmHg. Aortic Valve Trileaflet. No regurgitation. No stenosis. Pulmonic Valve Valve structure is normal. No regurgitation. Ascending Aorta Not well visualized. Normal sized sinuses of Valsalva and ascending aorta. Pericardium No pericardial effusion. Septum No interatrial shunt visualized on color Doppler. Agitated saline study was negative with and without provocation. Pulmonary Artery Normal pulmonary arteries. Study Details Image quality: adequate. Heart rate: 80 bpm. Blood pressure: 118/78 mmHg. The underlying ECG rhythm was sinus rhythm. Saline contrast was given to evaluate for intracardiac shunt. Bubble study was without Valsalva. Echo Additional Conclusions No significant valvular abnormalities. CV CPACS VITAMIN D DEFICIENCY SCREENI NG (VIT D 25)on 10-29-2024 VIT D 25-OH, TOTAL 45 ng/mL Normal See comment [facility] Comment on above: Result Comment: YESENIA Melendez COMMENTS:Target concentration: 30 - 40 ng/mL; toxicity seen at concentrations >100 ng/mLLess than 20 ng/mL: Indicative of Vit D deficiencyTest performed by Not iT, measuring Total Vitamin D, not individual fractions. Performed By: #### L [id number], [id number] ####[employer] Clerk: ALBERTINA SAUNDERS ([phone])[address] Vital signsOrdered By: Bassam Curtis on 10-29-2024 Heart rate 73 /min bpm [facility] Phone: 36on 10-28-2024 36 Left a message for patient that Dr Corcoran reviewed and she can take Zoloft he will follow her EKG will see her at OV 11-11-24 Normal [facility] CBC W Auto Differential pane l (Bld)on 10-28-2024 Basophils (Bld) [#/Vol] 0 10*3/uL 0.0 - 0.2 10*3/uL [facility] Basophils/100 WBC (Bld) 0.5 % 0.0 - 2.0 % [facility] Eosinophils (Bld) [#/Vol] 0.1 10*3/uL 0.0 - 0.5 10*3/uL [facility] Eosinophils/100 WBC (Bld) 0.9 % 0.0 - 6.0 % [facility] Erythrocyte distribution width (RBC) [Ratio] 12 % 11.5 - 15.0 % [facility] Hematocrit (Bld) [Volume fraction] 41.5 % 35.0 - 47.0 % [facility] Hemoglobin (Bld) [Mass/Vol] 14.3 g/dL 11.7 - 16.0 g/dL [facility] Immature granulocytes (Bld) [#/Vol] 0 10*3/uL NINF - 0.1 10*3/uL [facility] Immature granulocytes/100 WBC (Bld) 0 % 0.0 - 2.0 % [facility] Interpretation and review of laboratory results Normal [facility] Lymphocytes (Bld) [#/Vol] 1.9 10*3/uL 1.0 - 4.3 10*3/uL [facility] Lymphocytes/100 WBC (Bld) 32.9 % 15.0 - 45.0 % [facility] MCH (RBC) [Entitic mass] 28.6 pg 26.0 - 34.0 pg [facility] MCHC (RBC) [Mass/Vol] 34.5 % 30.5 - 36.0 % [facility] MCV (RBC) [Entitic vol] 83 fL 77.0 - 99.0 fL [facility] Monocytes (Bld) [#/Vol] 0.4 10*3/uL 0.0 - 0.9 10*3/uL [facility] Monocytes/100 WBC (Bld) 7.2 % 5.0 - 13.0 % [facility] Neutrophils (Bld) [#/Vol] 3.3 10*3/uL 1.8 - 7.5 10*3/uL [facility] Neutrophils/100 WBC (Bld) 58.5 % 38.0 - 82.0 % [facility] Nucleated RBC/100 WBC (Bld) [Ratio] 0 % [facility] Platelet mean volume (Bld) [Entitic vol] 9.9 fL 9.0 - 12.7 fL [facility] Comment on above: MPV is a calculated measurement using platelet volume ratio Platelets (Bld) [#/Vol] 195 10*3/uL 140 - 440 10*3/uL [facility] RBC (Bld) [#/Vol] 5 10*6/uL 3.80 - 5.2 0 10*6/uL [facility] WBC (Bld) [#/Vol] 5.7 10*3/uL 3.6 - 10.7 10*3/uL [facility] CBC WITH AUTO DIFFERENTIALon 10-28-2024 Basophils (Bld) [#/Vol] 0.0 10*3/uL Normal 0.0-0.2 [facility] Comment on above: Performed By: #### L [id number] ####Fuel Oil Clerk: ALBERTINA SAUNDERS ([phone])[facility] (SW[facility])[address] [place] [address] [place] Basophils/100 WBC (Bld) 0.5 % Normal 0.0-2.0 [facility] Comment on above: Performed By: #### L [id number] ####Fuel Oil Clerk: ALBERTINA SAUNDERS ([id number])[facility] ([facility])[address] [place] [address] [place] Eosinophils (Bld) [#/Vol] 0.1 10*3/uL Normal 0.0-0.5 [facility] Comment on above: Performed By: #### L [id number] ####Fuel Oil Clerk: ALBERTINA SAUNDERS ([id number])[facility] ([facility])[address] [place] [address] [place] Eosinophils/100 WBC (Bld) 0.9 % Normal 0.0-6.0 [facility] Comment on above: Performed By: #### L [id number] ####Fuel Oil Clerk: ALBERTINA SAUNDERS ([id number])[facility] [place] [facility] ([facility])[address] [place] [address] Erythrocyte distribution width (RBC) [Ratio] 12.0 % Normal 11.5-15.0 [facility] Comment on above: Performed By: #### L [id number] ####Fuel Oil Clerk: ALBERTINA SAUNDERS ([phone])[facility] (SWRL[place])[address] [place] [address] Hematocrit (Bld) [Volume fraction] 41.5 % Normal 35.0-47.0 [facility] Comment on above: Performed By: #### L [id number] ####Fuel Oil Clerk: ALBERTINA SAUNDERS ([id number])[facility] [place] (SW[place])[address] [place] [address] Hemoglobin (Bld) [Mass/Vol] 14.3 g/dL Normal 11.7-16.0 [facility] Comment on above: Performed By: #### L [id number] ####Fuel Oil Clerk: ALBERTINA SAUNDERS ([id number])[facility] [place] [place] ([place])[address] [place] [address] IMMATURE GRANS % 0.0 % Normal 0.0-2.0 [facility] Comment on above: Performed By: #### L [id number] ####Fuel Oil Clerk: ALBERTINA SAUNDERS ([id number])[facility] [place] [place] (SW[place])[address] [place] [address] IMMATURE GRANS ABSOLUTE 0.0 10*3/uL Normal <0.1 [facility] Comment on above: Performed By: #### L [id number] ####Fuel Oil Clerk: ALBERTINA SAUNDERS ([id number])[facility] [place] [place] (SW[place])[address] [place] [address] [place] Lymphocytes (Bld) [#/Vol] 1.9 10*3/uL Normal 1.0-4.3 [facility] Comment on above: Performed By: #### L [id number] ####Fuel Oil Clerk: ALBERTINA SAUNDERS ([id number])[facility] [place] ([place])[address] [place] [address] [place] Lymphocytes/100 WBC (Bld) 32.9 % Normal 15.0-45.0 [facility] Comment on above: Performed By: #### L [id number] ####Fuel Oil Clerk: ALBERTINA SAUNDERS ([id number])[facility] (SWRL[facility])[address] [place] [address] MCH (RBC) [Entitic mass] 28.6 pg Normal 26.0-34.0 [facility] Comment on above: Performed By: #### L [id number] ####Fuel Oil Clerk: ALBERTINA SAUNDERS ([id number])[facility] [place] [place] ([place])[address] [place] [address] MCHC 34.5 % Normal 30.5-36.0 [facility] Comment on above: Performed By: #### L [id number] ####Fuel Oil Clerk: ALBERTINA SAUNDERS ([id number])[facility] [place] (SW[place])[address] [place] [address] MCV (RBC) [Entitic vol] 83.0 fL Normal 77.0-99.0 [facility] Comment on above: Performed By: #### L [id number] ####Fuel Oil Clerk: ALBERTINA SAUNDERS ([id number])[facility] (SWRL[facility])[address] [place] [address] Monocytes (Bld) [#/Vol] 0.4 10*3/uL Normal 0.0-0.9 [facility] Comment on above: Performed By: #### L [id number] ####Fuel Oil Clerk: ALBERTINA SAUNDERS ([id number])[facility] (SWRL[facility])[address] [place] [address] [place] Monocytes/100 WBC (Bld) 7.2 % Normal 5.0-13.0 [facility] Comment on above: Performed By: #### L [id number] ####Fuel Oil Clerk: ALBERTINA SAUNDERS ([id number])[facility] (SWRL[facility])[address] [place] [address] [place] NEUTROPHILS ABSOLUTE 3.3 10*3/uL Normal 1.8-7.5 [facility] Comment on above: Performed By: #### L [id number] ####Fuel Oil Clerk: ALBERTINA SAUNDERS ([id number])[facility] [place] ([place])[address] Neutrophils/100 WBC (Bld) 58.5 % Normal 38.0-82.0 [facility] Comment on above: Performed By: #### L [id number] ####Fuel Oil Clerk: ALBERTINA SAUNDERS ([id number])[facility] (SWRL[place])[address] NRBC 0.0 /100 WBCs Normal 0.0-2.0 [facility] Comment on above: Performed By: #### L [id number] ####Fuel Oil Clerk: ALBERTINA SAUNDERS ([id number])[facility] [place] ([place])[address] [place] [address] Platelet mean volume (Bld) [Entitic vol] 9.9 fL Normal 9.0-12.7 [facility] Comment on above: Result Comment: MPV is a calculated measurement using platelet volume ratio Performed By: #### L [id number] ####Fuel Oil Clerk: ALBERTINA SAUNDERS ([id number])[facility] ([place])[address] [place] [address] [place] Platelets (Bld) [#/Vol] 195 10*3/uL Normal 140-440 [facility] Comment on above: Performed By: #### L [id number] ####Fuel Oil Clerk: ALBERTINA SAUNDERS ([id number])[facility] ([place])[address] [place] [address] [place] RBC (Bld) [#/Vol] 5.00 10*6/uL Normal 3.80-5.20 [facility] Comment on above: Performed By: #### L [id number] ####Fuel Oil Clerk: ALBERTINA SAUNDERS ([id number])[facility] ([facility])[address] WBC (Bld) [#/Vol] 5.7 10*3/uL Normal 3.6-10.7 [facility] Comment on above: Performed By: #### L [id number] ####Fuel Oil Clerk: ALBERTINA SAUNDERS ([id number])[facility] ([facility])[address] COMPLETE URINALYSIS WITH REF STEVE TO CULTUREon 10-28-2024 BILIRUBIN, TOTAL PRESENCE IN URINE Negative Normal Negative [facility] Comment on above: Performed By: #### L [id number] ####Fuel Oil Clerk: ALBERTINA SAUNDERS ([id number])[facility] ([facility])[address] Clarity (U) Clear Normal Clear [facility] Comment on above: Performed By: #### L [id number] ####Fuel Oil Clerk: ALBERTINA SAUNDERS ([id number])[facility] ([facility])[address] [place] [address] Color (U) Colorless Normal Lt. Yellow [facility] Comment on above: Performed By: #### L [id number] ####Fuel Oil Clerk: ALBERTINA SAUNDERS ([id number])[facility] ([facility])[address] [place] [address] [place] GLUCOSE (MG/DL) IN URINE Normal Normal Normal (<70) [facility] Comment on above: Performed By: #### L [id number] ####Fuel Oil Clerk: ALBERTINA SAUNDERS ([id number])[facility] ([facility])[address] [place] [address] HEMOGLOBIN PRESENCE IN URINE Negative Normal Negative [facility] Comment on above: Performed By: #### L [id number] ####Fuel Oil Clerk: ALBERTINA SAUNDERS ([id number])[facility] ([facility])[address] [place] [address] [place] Ketones Ql (U) 80 mg/dL Abnormal Negative [facility] Comment on above: Performed By: #### L [id number] ####Fuel Oil Clerk: ALBERTINA SAUNDERS ([id number])[facility] ([place])[address] [place] [address] LEUKOCYTE ESTERASE PRESENCE IN URINE BY TEST STRIP Negative Normal Negative [facility] Comment on above: Performed By: #### L [id number] ####Fuel Oil Clerk: ALBERTINA SAUNDERS ([id number])[facility] [place] ([place])[address] [place] [address] NITRITE PRESENCE IN URINE Negative Normal Negative [facility] Comment on above: Performed By: #### L [id number] ####Fuel Oil Clerk: ALBERTINA SAUNDERS ([id number])[facility] (SW[place])[address] [place] [address] pH (U) 5.0 [pH] Normal 5.0-8.0 [facility] Comment on above: Performed By: #### L [id number] ####Fuel Oil Clerk: ALBERTINA SAUNDERS ([id number])[facility] ([place])[address] [place] [address] Protein (U) [Mass/Vol] Negative Normal Negative [facility] Comment on above: Performed By: #### L [id number] ####Fuel Oil Clerk: ALBERTINA SAUNDERS ([id number])[facility] (SWRL[facility])[address] [place] [address] Specific gravity (U) [Rel density] 1.010 Normal 1.005-1.030 [facility] Comment on above: Result Comment: YESENIA Melendez COMMENTS:A specimen with <=10 WBC is not consistent with inflammation. This specimen will not reflex to a urine culture. Performed By: #### L [id number] ####Fuel Oil Clerk: ALBERTINA SAUNDERS ([id number])[facility] ([place])[address] UROBILINOGEN (MG/DL) IN URINE Normal Normal Normal (0-1) [facility] Comment on above: Performed By: #### L [id number] ####Fuel Oil Clerk: ALBERTINA SAUNDERS ([id number])[facility] (SWRL[facility])[address] COMPREHENSIVE METABOLIC PANE Baldo 10-28-2024 Albumin [Mass/Vol] 4.3 g/dL Normal 3.5-5.0 [facility] Comment on above: Performed By: #### L [id number], [id number], [id number] ####Fuel Oil Clerk: ALBERTINA SAUNDERS ([id number])[facility] ([facility])[address] ALP [Catalytic activity/Vol] 57 U/L Normal 40-150 [facility] Comment on above: Performed By: #### L [id number], [id number], LAB17 ####Fuel Oil Clerk: ALBERTINA SAUNDERS ([id number])[facility] [place] [facility] ([place])[address] [place] [address] ALT [Catalytic activity/Vol] 9 U/L Normal <30 [facility] Comment on above: Performed By: #### L [id number], [id number], LAB17 ####Fuel Oil Clerk: ALBERTINA SAUNDERS ([id number])[facility] ([place])[address] Anion gap [Moles/Vol] 13 mmol/L Normal 3-13 [facility] Comment on above: Performed By: #### L [id number], [id number], LAB17 ####Fuel Oil Clerk: ALBERTINA SAUNDERS ([id number])[facility] (SWRL[facility])[address] [place] [address] [place] AST [Catalytic activity/Vol] 16 U/L Normal <34 [facility] Comment on above: Performed By: #### L [id number], [id number], LAB17 ####Fuel Oil Clerk: ALBERTINA SAUNDERS ([id number])[facility] ([facility])[address] [place] [address] [place] Bilirubin [Mass/Vol] 1.2 mg/dL High <1.2 [facility] Comment on above: Performed By: #### L [id number], [id number], LAB17 ####Fuel Oil Clerk: ALBERTINA SAUNDERS ([id number])[facility] ([facility])[address] Calcium [Mass/Vol] 9.4 mg/dL Normal 8.4-10.2 [facility] Comment on above: Performed By: #### L [id number], [id number], LAB17 ####Fuel Oil Clerk: ALBERTINA SAUNDERS ([id number])[facility] (SW[place])[address] [place] [address] [place] Chloride [Moles/Vol] 106 mmol/L Normal 98-107 [facility] Comment on above: Performed By: #### L [id number], [id number], LAB17 ####Fuel Oil Clerk: ALBERTINA SAUNDERS ([id number])[facility] ([facility])[address] [place] [address] CO2 [Moles/Vol] 22 mmol/L Normal 22-29 [facility] Comment on above: Performed By: #### L [id number], [id number], LAB17 ####Fuel Oil Clerk: ALBERTINA SAUNDERS ([id number])[facility] (SW[place])[address] [place] [address] Creatinine [Mass/Vol] 0.82 mg/dL Normal 0.57-1.11 [facility] Comment on above: Performed By: #### L [id number], [id number], LAB17 ####Fuel Oil Clerk: ALBERTINA SAUNDERS ([id number])[facility] ([place])[address] GLOMERULAR FILTRATION RATE ML/MIN/1.73 SQ M.PREDICTED >90.0 Normal >60.0 [facility] Comment on above: Result Comment: Calc ulation based on the Chronic Kidney Disease Epidemiology Collaboration (CKD-EPI) equation refit without adjustment for race Performed By: #### L [id number], [id number], LAB17 ####Fuel Oil Clerk: ALBERTINA SAUNDERS ([id number])[facility] (SW[place])[address] [place] [address] [place] Glucose [Mass/Vol] 95 mg/dL Normal 74-100 [facility] Comment on above: Performed By: #### L [id number], [id number], LAB17 ####Fuel Oil Clerk: ALBERTINA SAUNDERS ([id number])[facility] (SWRLAB)[address] [place] [address] [place] Potassium [Moles/Vol] 3.7 mmol/L Normal 3.5-5.1 [facility] Comment on above: Result Comment: [facility] potassium values may be up to 0.5 mmol/L lower than serum values. Performed By: #### L [id number], [id number], LAB17 ####Fuel Oil Clerk: ALBERTINA SAUNDERS ([id number])[facility] (SWRLAB)[address] [place] [address] [place] Protein [Mass/Vol] 7.0 g/dL Normal 6.4-8.3 [facility] Comment on above: Performed By: #### L [id number], [id number], LAB17 ####Fuel Oil Clerk: ALBERTINA SAUNDERS ([id number])[facility] (SWRL[place])[address] [place] [address] [place] Sodium [Moles/Vol] 141 mmol/L Normal 136-145 [facility] Comment on above: Performed By: #### L [id number], [id number], LAB17 ####Fuel Oil Clerk: ALBERTINA SAUNDERS ([id number])[facility] (SWRL[place])[address] [place] [address] [place] Urea nitrogen [Mass/Vol] 13 mg/dL Normal 8-21 [facility] Comment on above: Performed By: #### L [id number], [id number], LAB17 ####Fuel Oil Clerk: ALBERTINA SAUNDERS ([id number])[facility] [place] (SWRLAB)[address] [place] [address] Comprehensive metabolic 1998 panelon 10-28-2024 Albumin [Mass/Vol] 4.3 g/dL 3.5 - 5.0 g/dL [facility] ALP [Catalytic activity/Vol] 57 U/L 40 - 150 U/L [facility] ALT [Catalytic activity/Vol] 9 U/L NINF - 30 U/L [facility] Anion gap [Moles/Vol] 13 mmol/L 3 - 13 mmol/L [facility] AST [Catalytic activity/Vol] 16 U/L NINF - 34 U/L [facility] Bilirubin [Mass/Vol] 1.2 mg/dL High NINF - 1.2 mg/dL [facility] Calcium [Mass/Vol] 9.4 mg/dL 8.4 - 10. 2 mg/dL [facility] Chloride [Moles/Vol] 106 mmol/L 98 - 10 7 mmol/L [facility] CO2 [Moles/Vol] 22 mmol/L 22 - 29 mmol/L [facility] Creatinine [Mass/Vol] 0.82 mg/dL 0.57 - 1.11 mg/dL [facility] GFR/1.73 sq M.predicted (S/P/Bld) [Vol rate/Area] - PINF [facility] Comment on above: Calculation based on the Chronic Kidney Disease Epidemiology Collaboration (CKD-EPI) equation refit without adjustment for race Glucose [Mass/Vol] 95 mg/dL 74 - 100 mg/dL [facility] Interpretation and review of laboratory results Abnormal [facility] Potassium [Moles/Vol] 3.7 mmol/L 3.5 - 5.1 mmol/L [facility] Comment on above: Plasma potassium eliezer ues may be up to 0.5 mmol/L lower than serum values. Protein [Mass/Vol] 7 g/dL 6.4 - 8.3 g/dL [facility] Sodium [Moles/Vol] 141 mmol/L 136 - 145 mmol/L [facility] Urea nitrogen [Mass/Vol] 13 mg/dL 8 - 21 mg/dL [facility] ECG 12-LEADon 10-28-2024 ECG 12-LEAD Normal [facility] ED Nursing Noteon 10-28-2024 ED Nursing Note Patient reported she is voiding more than normal. Dr. Perales notified. Normal [facility] ED Nursing Note Patient reports her stools have been orange for the last 2 - 3 weeks. Normal [facility] ED Nursing Note Dr. Perales notified of patient , patient was advised to pump and dump. Patient voiced understanding. Normal [facility] ED Nursing Note Patient to room 4 wi th c/o heart rate 170 this morning, and chest pain. V/S obtained, EKG completed, call light within reach. Normal [facility] ED Provider Noteon ED Provider Note Normal [facility] Free T3 [Mass/Vol]on 025 Interpretation and review of laboratory results Normal [facility] HCG QUALITATIVE URINEon 10-07 Beta HCG ( test) Ql (U) Negative Normal Negative [facility] Comment on above: Result Comment: Plea se note: Very dilute urine specimens, as indicated by a low specific gravity, may not contain inventory representative levels of hCG. If is still suspected, a first morning urine specimen should be collected 48 hours later and tested.ORDER COMMENTS: is the most common reason for HCG in urine, although choriocarcinoma, hydatidiform mole, and certain nontrophoblastic malignancies also result in detectable urinary HCG levels. Sensitivity = 20mIU/mL. Performed By: #### L [id number] ####Fuel Oil Clerk: ALBERTINA SAUNDERS ([id number])[facility] (SWRLAB)[address] [place] [address] HIGH SENSITIVITY TROPONIN, S ERIAL BASELINEon 10-28-2024 TROPONIN HS SERIAL BASELINE <3 Normal <=14 [facility] Comment on above: Result Comment: In i ndividuals presenting with symptoms > 2h, a baseline troponin <= 5 ng/L suggests acutecardiac injury is unlikely and further serial testing is generally not indicated. Performed By: #### L [id number], [id number], LAB17 ####Fuel Oil Clerk: ALBERTINA SAUNDERS ([id number])[facility] [place] (SWRLAB)[address] HIGH SENSITIVITY TROPONIN, S ERIAL, SECOND TESTon 10-28-2024 2H TROPONIN HS (SERIAL 2ND TROPONIN) <3 Normal <=14 [facility] Comment on above: Result Comment: Delt a value was unable to be calculated as both baseline and serial troponin tests were below the level of quantitation. As both baseline and 2h troponin values are below the level of quantitation, acute cardiac injury is unlikely. Performed By: #### L [id number] ####Fuel Oil Clerk: ALBERTINA SAUNDERS ([id number])[facility] (SWRLAB)[address] Laboratory - Chemistry and C hemistry - challengeon 10-28-2024 Free T3 [Mass/Vol] 2.52 pg/mL 1.58 - 3. 91 pg/mL [facility] Beta HCG ( test) Ql Negative Negative [facility] Comment on above: Please note: Very di lute urine specimens, as indicated by a low specific gravity, may not contain inventory representative levels of hCG. If is still suspected, a first morning urine specimen should be collected 48 hours later and tested. Beta HCG ( test) Ql (U) is the most common reason for HCG in urine, although choriocarcinoma, hydatidiform mole, and certain nontrophoblastic malignancies also result in detectable urinary HCG levels. Sensitivity = 20mIU/mL. [facility] TSH Qn 1.22 m[IU]/L [facility] DNsolution No Panel Informationon 10-28 [facility] 2h Troponin HS (Serial 2nd Troponin) ng/L NINF - 14 ng/L [facility] Comment on above: Delta value was unab le to be calculated as both baseline and serial troponin tests were below the level of quantitation. As both baseline and 2h troponin values are below the level of quantitation, acute cardiac injury is unlikely. Interpretation and review of laboratory results Normal [facility] Interpretation and review of laboratory results Normal [facility] Troponin HS Serial Baseline ng/L NINF - 14 ng/L [facility] Comment on above: In individuals prese nting with symptoms > 2h, a baseline troponin <= 5 ng/L suggests acute cardiac injury is unlikely and further serial testing is generally not indicated. [facility] P [place] 79 degrees [facility] [place] Interval 138 ms [facility] QRS [place] 59 degrees [facility] QRSD Interval 95 ms [facility] QT Interval 346 ms [facility] QTC Interval 444 ms [facility] T Wave [place] 19 degrees [facility] Sinus rhythm EKG per my interpretation shows a normal sinus rhythm at a rate of 98 with a normal axis. There is no acute ST elevation or ST depression. Intervals are within normal limits otherwise. There were no significant changes compared to prior EKG on file. Electronically Signed On 10-28-2024 07:53:46 EDT by Bernabe Claire MD - 10/28/2024 IMPRESSION: Sinus rhythm EKG per my interpretation shows a normal sinus rhythm at a rate of 98 with a normal axis. There is no acute ST elevation or ST depression. Intervals are within normal limits otherwise. There were no significant changes compared to prior EKG on file. Electronically Signed On 10-28-2024 07:53:46 EDT by Bernabe Perales [facility] Nursing Noteon 10-28-2024 Nursing Note Normal [facility] Progress Noteon 10-28-2024 Progress Note Normal [facility] T3 FREEon 10-28-2024 Free T3 [Mass/Vol] 2.52 pg/mL Normal 1.58-3.91 [facility] Comment on above: Performed By: #### L [id number] ####Fuel Oil Clerk: ALBERTINA SAUNDERS ([id number])[facility] (SACLAB)[address] [place] [address] THYROID STIMULATING HORMONEo n 10-28-2024 THYROID STIMULATING HORMONE 1.22 uIU/mL Normal 0.35-4.94 [facility] Comment on above: Performed By: #### L [id number], [id number], [id number] ####Fuel Oil Clerk: ALBERTINA SAUNDERS ([id number])[facility] (SWRLAB)[address] [place] [address] TSH Qnon 10-28-2024 Interpretation and review of laboratory results Normal [facility] THYROIDon 10-28-2024 US THYROID Normal [facility] US Thyroid glandon THYROID ULTRASOUND : 1. Two tiny right lobe nodules and a 6 mm mid left lobe TI RADS 2 nodule identified. No further follow-up or FNA suggested. Report Dictated on Electronically Signed By: Francis Palacio MD Electronically Signed Date/Time: 10/28/2024 6:07 PM T [facility] Patient Name: MACHELLE MAY : 1995 Exam Date/Time: 10/28/2024 17:33 Procedure: US THYROID Ordering Provider: BROWN HEATHER Reason For Exam: THYROID NODULE ULTRASOUND THYROID: Indication: Thyroid nodule. Examination: Ultrasonographic evaluation of the thyroid Comparison: CT chest 10/05/2024 FINDINGS: RIGHT LOBE: 1.4 x 1.6 x 4.8 cm LEFT LOBE: 0.9 x 1.5 x 5.2 cm ECHOGENICITY PATTERN: Slightly heterogeneous with tiny nodules [facility] Francis Palacio MD - 10/28/2024 Patient Name: MACHELLE MAY : 1995 Exam Date/Time: 10/28/2024 17:33 Procedure: US THYROID Ordering Provider: BROWN HEATHER Reason For Exam: THYROID NODULE ULTRASOUND THYROID: Indication: Thyroid nodule. Examination: Ultrasonographic evaluation of the thyroid Comparison: CT chest 10/05/2024 FINDINGS: RIGHT LOBE: 1.4 x 1.6 x 4.8 cm LEFT LOBE: 0.9 x 1.5 x 5.2 cm ECHOGENICITY PATTERN: Slightly heterogeneous with tiny nodules IMPRESSION: THYROID ULTRASOUND : 1. Two tiny right lobe nodules and a 6 mm mid left lobe TI RADS 2 nodule identified. No further follow-up or FNA suggested. Report Dictated on Electronically Signed By: Francis Palacio MD Electronically Signed Date/Time: 10/28/2024 6:07 PM T [facility] Radiology Study observation (narrative) [facility] US Thyroid glandOrdered By: Francis Palacio on 10-28-2024 [facility] Work Phone: Urinalysis complete panel (U )Ordered By: Masoud Rose on 10-28-2024 Bilirubin Ql (U) Negative Negative mg/dL [facility] Clarity (U) Clear Clear [facility] Color (U) Colorless Lt. Yellow [facility] Glucose Ql (U) Normal Normal (<70) mg/dL [facility] Hemoglobin Ql (U) Negative Negative mg/dL [facility] Interpretation and review of laboratory results Abnormal [facility] Ketones (U) [Mass/Vol] 80 mg/dL Abnormal Negative [facility] Leukocyte esterase Test strip Ql (U) Negative Negative Prabhu/uL [facility] Nitrite Ql (U) Negative Negative [facility] pH (U) 5.0 [pH] 5.0 - 8.0 pH [facility] Protein (U) [Mass/Vol] Negative Negat tyson mg/dL [facility] Specific gravity (U) [Rel density] 1.01 1.005 - 1.030 [facility] Urobilinogen (U) [Mass/Vol] Normal Normal (0-1) mg/dL [facility] A specimen with <=10 WBC is not consistent with inflammation. This specimen will not reflex to a urine culture. [facility] Vital signson 10-28-2024 Heart rate 98 /min bpm [facility] BASIC METABOLIC PANELon 10-07 Anion gap [Moles/Vol] 13 mmol/L Normal 3-13 [facility] Comment on above: Performed By: #### L AB15, [id number], [id number] ####Fuel Oil Clerk: ALBERTINA SAUNDERS ([id number])[facility] [employer] [facility] (SWRLAB)[address] [place] [address] Calcium [Mass/Vol] 9.0 mg/dL Normal 8.4-10.2 [facility] Comment on above: Performed By: #### L AB15, [id number], [id number] ####Fuel Oil Clerk: ALBERTINA SAUNDERS ([id number])[facility] [employer] [facility] (SWRLAB)[address] [place] [address] [place] Chloride [Moles/Vol] 106 mmol/L Normal 98-107 [facility] Comment on above: Performed By: #### Lola AB15, [id number], [id number] ####Fuel Oil Clerk: ALBERTINA SAUNDERS ([id number])[facility] (SWRLAB)[address] CO2 [Moles/Vol] 21 mmol/L Low 22-29 [facility] Comment on above: Performed By: #### Lola AB15, [id number], [id number] ####Fuel Oil Clerk: ALBERTINA SAUNDERS ([id number])[facility] (SWRLAB)[address] [place] [address] Creatinine [Mass/Vol] 0.83 mg/dL Normal 0.57-1.11 [facility] Comment on above: Performed By: #### Lola AB15, [id number], [id number] ####Fuel Oil Clerk: ALBERTINA SAUNDERS ([id number])[facility] (SWRLAB)[address] [place] [address] GLOMERULAR FILTRATION RATE ML/MIN/1.73 SQ M.PREDICTED >90.0 Normal >60.0 [facility] Comment on above: Result Comment: Calc ulation based on the Chronic Kidney Disease Epidemiology Collaboration (CKD-EPI) equation refit without adjustment for race Performed By: #### Lola AB15, [id number], [id number] ####Fuel Oil Clerk: ALBERTINA SAUNDERS ([id number])[facility] (SWRLAB)[address] [place] [address] Glucose [Mass/Vol] 115 mg/dL High 74-100 [facility] Comment on above: Performed By: #### L AB15, [id number], [id number] ####Fuel Oil Clerk: ALBERTINA SAUNDERS ([id number])[facility] (SWRLAB)[address] [place] [address] [place] Potassium [Moles/Vol] 3.4 mmol/L Low 3.5-5.1 [facility] Comment on above: Result Comment: Plas ma potassium values may be up to 0.5 mmol/L lower than serum values. Performed By: #### L AB15, [id number], [id number] ####Fuel Oil Clerk: ALBERTINA SAUNDERS ([id number])[facility] (SWRLAB)[address] [place] [address] Sodium [Moles/Vol] 140 mmol/L Normal 136-145 [facility] Comment on above: Performed By: #### L AB15, [id number], [id number] ####Fuel Oil Clerk: ALBERTINA SAUNDERS ([id number])[facility] (SWRLAB)[address] [place] [address] Urea nitrogen [Mass/Vol] 14 mg/dL Normal 8-21 [facility] Comment on above: Performed By: #### L AB15, [id number], [id number] ####Fuel Oil Clerk: ALBERTINA SAUNDERS ([id number])[facility] (SWRLAB)[address] [place] [address] Basic metabolic 1998 panelon 10-27-2024 Anion gap [Moles/Vol] 13 mmol/L 3 - 13 mmol/L [facility] Calcium [Mass/Vol] 9 mg/dL 8.4 - 10. 2 mg/dL [facility] Chloride [Moles/Vol] 106 mmol/L 98 - 10 7 mmol/L [facility] CO2 [Moles/Vol] 21 mmol/L Low 22 - 29 mmol/L [facility] Creatinine [Mass/Vol] 0.83 mg/dL 0.57 - 1.11 mg/dL [facility] GFR/1.73 sq M.predicted (S/P/Bld) [Vol rate/Area] - PINF [facility] Comment on above: Calculation based on the Chronic Kidney Disease Epidemiology Collaboration (CKD-EPI) equation refit without adjustment for race Glucose [Mass/Vol] 115 mg/dL High 74 - 100 mg/dL [facility] Interpretation and review of laboratory results Abnormal [facility] Potassium [Moles/Vol] 3.4 mmol/L Low 3.5 - 5.1 mmol/L [facility] Comment on above: Plasma potassium eliezer ues may be up to 0.5 mmol/L lower than serum values. Sodium [Moles/Vol] 140 mmol/L 136 - 145 mmol/L [facility] Urea nitrogen [Mass/Vol] 14 mg/dL 8 - 21 mg/dL [facility] CBC W Auto Differential pane l (Bld)on 10-27-2024 Basophils (Bld) [#/Vol] 0 10*3/uL 0.0 - 0.2 10*3/uL [facility] Basophils/100 WBC (Bld) 0.3 % 0.0 - 2.0 % [facility] Eosinophils (Bld) [#/Vol] 0.1 10*3/uL 0.0 - 0.5 10*3/uL [facility] Eosinophils/100 WBC (Bld) 1.5 % 0.0 - 6.0 % [facility] Erythrocyte distribution width (RBC) [Ratio] 11.9 % 11.5 - 15.0 % [facility] Hematocrit (Bld) [Volume fraction] 40.8 % 35.0 - 47.0 % [facility] Hemoglobin (Bld) [Mass/Vol] 13.9 g/dL 11.7 - 16.0 g/dL [facility] Immature granulocytes (Bld) [#/Vol] 0 10*3/uL NINF - 0.1 10*3/uL [facility] Immature granulocytes/100 WBC (Bld) 0.2 % 0.0 - 2.0 % [facility] Interpretation and review of laboratory results Normal [facility] Lymphocytes (Bld) [#/Vol] 2.1 10*3/uL 1.0 - 4.3 10*3/uL [facility] Lymphocytes/100 WBC (Bld) 34.9 % 15.0 - 45.0 % [facility] MCH (RBC) [Entitic mass] 28.8 pg 26.0 - 34.0 pg [facility] MCHC (RBC) [Mass/Vol] 34.1 % 30.5 - 36.0 % [facility] MCV (RBC) [Entitic vol] 84.5 fL 77.0 - 99.0 fL [facility] Monocytes (Bld) [#/Vol] 0.4 10*3/uL 0.0 - 0.9 10*3/uL [facility] Monocytes/100 WBC (Bld) 6.7 % 5.0 - 13.0 % [facility] Neutrophils (Bld) [#/Vol] 3.4 10*3/uL 1.8 - 7.5 10*3/uL [facility] Neutrophils/100 WBC (Bld) 56.4 % 38.0 - 82.0 % [facility] Nucleated RBC/100 WBC (Bld) [Ratio] 0 % [facility] Platelet mean volume (Bld) [Entitic vol] 10.2 fL 9.0 - 12.7 fL [facility] Comment on above: MPV is a calculated measurement using platelet volume ratio Platelets (Bld) [#/Vol] 188 10*3/uL 140 - 440 10*3/uL [facility] RBC (Bld) [#/Vol] 4.83 10*6/uL 3.80 - 5.2 0 10*6/uL [facility] WBC (Bld) [#/Vol] 6 10*3/uL 3.6 - 10.7 10*3/uL [facility] CBC WITH AUTO DIFFERENTIALon 10-27-2024 Basophils (Bld) [#/Vol] 0.0 10*3/uL Normal 0.0-0.2 [facility] Comment on above: Performed By: #### L [id number] ####Fuel Oil Clerk: ALBERTINA SAUNDERS ([id number])[facility] (SWRLAB)[address] [place] [address] [place] Basophils/100 WBC (Bld) 0.3 % Normal 0.0-2.0 [facility] Comment on above: Performed By: #### L [id number] ####Fuel Oil Clerk: ALBERTINA SAUNDERS ([id number])[facility] (SWRLAB)[address] [place] [address] [place] Eosinophils (Bld) [#/Vol] 0.1 10*3/uL Normal 0.0-0.5 [facility] Comment on above: Performed By: #### L [id number] ####Fuel Oil Clerk: ALBERTINA SAUNDERS ([id number])[facility] (SWRL[facility])[address] [place] [address] [place] Eosinophils/100 WBC (Bld) 1.5 % Normal 0.0-6.0 [facility] Comment on above: Performed By: #### L [id number] ####Fuel Oil Clerk: ALBERTINA SAUNDERS ([id number])[facility] (SWRLAB)[address] [place] [address] Erythrocyte distribution width (RBC) [Ratio] 11.9 % Normal 11.5-15.0 [facility] Comment on above: Performed By: #### L [id number] ####Fuel Oil Clerk: ALBERTINA SAUNDERS ([id number])[facility] (SWRL[facility])[address] [place] [address] Hematocrit (Bld) [Volume fraction] 40.8 % Normal 35.0-47.0 [facility] Comment on above: Performed By: #### L [id number] ####Fuel Oil Clerk: ALBERTINA SAUNDERS ([id number])[facility] (SWRL[facility])[address] [place] [address] Hemoglobin (Bld) [Mass/Vol] 13.9 g/dL Normal 11.7-16.0 [facility] Comment on above: Performed By: #### L [id number] ####Fuel Oil Clerk: ALBERTINA SAUNDERS ([id number])[facility] (SWRLAB)[address] [place] [address] IMMATURE GRANS % 0.2 % Normal 0.0-2.0 [facility] Comment on above: Performed By: #### L [id number] ####Fuel Oil Clerk: ALBERTINA SAUNDERS ([id number])[facility] (SW[facility])[address] [place] [address] IMMATURE GRANS ABSOLUTE 0.0 10*3/uL Normal <0.1 [facility] Comment on above: Performed By: #### L [id number] ####Fuel Oil Clerk: ALBERTINA SAUNDERS ([id number])[facility] (SWRLAB)[address] [place], [place] [address] [place] Lymphocytes (Bld) [#/Vol] 2.1 10*3/uL Normal 1.0-4.3 [facility] Comment on above: Performed By: #### L [id number] ####Fuel Oil Clerk: ALBERTINA SAUNDERS ([id number])[facility] (SWRL[facility])[address] [place] [address] Lymphocytes/100 WBC (Bld) 34.9 % Normal 15.0-45.0 [facility] Comment on above: Performed By: #### L [id number] ####Fuel Oil Clerk: ALBERTINA SAUNDERS ([id number])[facility] (SWRL[facility])[address] [place] [address] MCH (RBC) [Entitic mass] 28.8 pg Normal 26.0-34.0 [facility] Comment on above: Performed By: #### L [id number] ####Fuel Oil Clerk: ALBERTINA SAUNDERS ([id number])[facility] ([facility])[address] [place] [address] MCHC 34.1 % Normal 30.5-36.0 [facility] Comment on above: Performed By: #### L [id number] ####Fuel Oil Clerk: ALBERTINA SAUNDERS ([id number])[facility] (SWRL[facility])[address] [place] [address] MCV (RBC) [Entitic vol] 84.5 fL Normal 77.0-99.0 [facility] Comment on above: Performed By: #### L [id number] ####Fuel Oil Clerk: ALBERTINA SAUNDERS ([id number])[facility] (SWRL[facility])[address] [place] [address] Monocytes (Bld) [#/Vol] 0.4 10*3/uL Normal 0.0-0.9 [facility] Comment on above: Performed By: #### L [id number] ####Fuel Oil Clerk: ALBERTINA SAUNDERS ([id number])[facility] (SWRLAB)[address] [place] [address] [place] Monocytes/100 WBC (Bld) 6.7 % Normal 5.0-13.0 [facility] Comment on above: Performed By: #### L [id number] ####Fuel Oil Clerk: ALBERTINA SAUNDERS ([id number])[facility] (SW[facility])[address] [place] [address] [place] NEUTROPHILS ABSOLUTE 3.4 10*3/uL Normal 1.8-7.5 [facility] Comment on above: Performed By: #### L [id number] ####Fuel Oil Clerk: ALBERTINA SAUNDERS ([phone])[facility] (SWRL[facility])[address] [place] [address] [place] Neutrophils/100 WBC (Bld) 56.4 % Normal 38.0-82.0 [facility] Comment on above: Performed By: #### L [id number] ####Fuel Oil Clerk: ALBERTINA SAUNDERS ([id number])[facility] (SW[facility])[address] [place] [address] [place] NRBC 0.0 /100 WBCs Normal 0.0-2.0 [facility] Comment on above: Performed By: #### L [id number] ####Fuel Oil Clerk: ALBERTINA SAUNDERS ([id number])[facility] (SW[facility])[address] [place] [address] Platelet mean volume (Bld) [Entitic vol] 10.2 fL Normal 9.0-12.7 [facility] Comment on above: Result Comment: MPV is a calculated measurement using platelet volume ratio Performed By: #### L [id number] ####Fuel Oil Clerk: ALBERTINA SAUNDERS ([id number])[facility] (SW[facility])[address] [place] [address] [place] Platelets (Bld) [#/Vol] 188 10*3/uL Normal 140-440 [facility] Comment on above: Performed By: #### L [id number] ####Fuel Oil Clerk: ALBERTINA SAUNDERS ([id number])[facility] (SWRLAB)[address] RBC (Bld) [#/Vol] 4.83 10*6/uL Normal 3.80-5.20 [facility] Comment on above: Performed By: #### L [id number] ####Fuel Oil Clerk: ALBERTINA SAUNDERS ([id number])[facility] [employer] (SWRLAB)[address] [place] [address] [place] WBC (Bld) [#/Vol] 6.0 10*3/uL Normal 3.6-10.7 [facility] Comment on above: Performed By: #### L [id number] ####Fuel Oil Clerk: ALBERTINA SAUNDERS ([id number])[facility] (SWRLAB)[address] [place] [address] Cardiology Visit Reporton Cardiology Visit Report [facility] [address] [place] [address] OFFICE VISIT Date of Service: 10/27/24 MR#: [id number] Acct: [id number] Name: DULCE MARIA CARTY Rep #: [id number] : 1995 Provider: DAISY dickson Age/Sex: 29/F Location: [facility] Status: Signed HPI HPI History of Present Illness Details: Dulce Maria Carty is a 29-year-old female who presents today for a cardiovascular hospital follow-up visit. She states she has been to the emergency room in [place] twice now for fast heart rate. Patient was admitted to [facility] 10/09 - 10/11/2024 after presenting with recurrent episodes of palpitations, lightheadedness and near syncope and abdominal pain. Per documentation, she has been seen for this in the past. MRI head and neck and EEG were negative and it is documented that she had a negative brain CT, CT angiogram of the chest, blood work and EKG in the past. She was discharged from the hospital with recommendations of starting buspirone and Pristiq and her metoprolol was discontinued. She was seen on 10/15/2024 in the office for noticing/feeling described as an adrenaline francois. She felt her heart rate racing and not resolving. A weeks prior, she noticed neck and head pain. She noticed a burst of head pressure from neck to her head when she was on vacation in [place]. She was evaluated in the ED there and reports negative head CT. She had a couple of episodes of stomach pain with rapid heart rates and shaking. She returned home, experienced an episode of near syncope and presented to [facility]. She reports blood work, EKG and work-up wasn't significant. She has purchased a watch for monitoring her heart rate. She reports ongoing neck pressure/tightness, flushing, muscle weakness, tachycardia, and some shortness of breath. She reports the only change recently is that she is weaning her 1 year old from breast feeding. Overall, she feels her symptoms are better as she is not noticing them as many times throughout the day. She continues to notice them daily, usually in the morning. She had a lumpectomy about 8 weeks ago and was followed by fluid/milk removal around the time her symptoms started. Her metoprolol was discontinued at that visit, a 48 hour Holter monitor and tilt table were ordered. They have not been scheduled yet. Patient presented to the emergency room on 10/27/2024 for complaints of palpitations. In the emergency room note, it noted patient being in the emergency room the day before with complaints of palpitations. Patient reported that her heart rate was 165 and was still tachycardic around 150 on arrival to the emergency room. She had complaints of chest tightness into the neck and shortness of breath. Labs were all noted to be normal, with a her potassium level slightly low at 3.4. By the time they were able to connect her to an EKG, her heart rate had slowed down to the low 100s, and was in sinus tachycardia without ischemia or arrhythmias. Her metoprolol was restarted, and she was discharged and instructed to follow-up with cardiology. From a cardiac standpoint, the patient is doing well. She does feel a racing sensation. Along with this feeling, she does have tightness feeling in her neck and jaw. She does acknowledge SOB with episodes of racing sensation, and with activity. She denies Orthopnea, and PND. She does not have bleeding issues; no blood in urine, stool, or nosebleeds. She does acknowledge fatigue. She denies myalgias, or claudication. She does not have edema, or sudden weight gain. She does acknowledge lightheadedness-intermit tent, more with palpitations. She does acknowledge constant dizziness. She denies syncopal or near syncopal episodes, and headaches. Intake Vital Signs 10/15/24 07:47 10/27/24 10:55 Height 5 ft 6 in 5 ft 6 in Weight: 142 lb BMI 22.8 BP 115/76 Blood Pressure Location Lt brachial Position Sitting Respiration 18 Pulse 95 Pulse Source Monitor Pulse Oximetry (%) 96 Intake Visit Reasons: S/P [facility] 10/26 Home Care Administrator Required: No Is patient in pain?: No Allergies nitrofurantoin Allergy (Severe, Verified 10/27/24 14:05) difficulty breathing alprazolam Adverse Reaction (Intermediate, Verified 10/27/24 14:05) PT UNSURE OF REACTION quetiapine Adverse Reaction (Intermediate, Verified 10/27/24 14:05) PT UNSURE OF REACTION Medications ???Medication ???Instructions ???Recorded ???Confirmed ???Type L. crispatus, gasseri, jensenii, 2 tab PO DAILY PRN 10/15/24 History rhamnosus 12 billion cell chew tablet (Culturelle Probiotic) docosahexaenoic acid 200 mg 200 mg PO DAILY PRN 10/15/2410/27 History capsule ( DHA) metoprolol succinate 25 mg 25 mg PO QDAY 10/27/24 10/27/24 Hi story tablet,extended release 24 hr sert (more content not included)... Normal [facility] D-DIMER,QUANTITATIVEon 10-27 D-DIMER, INNOVANCE <0.19 Normal <0.50 [facility] Comment on above: Result Comment: YESENIA Melendez COMMENTS:Innovance D-Dimer values of <0.50 mg/L FEU can be used in combination with a pre-test probability model (e.g. Well's) to exclude pulmonary embolism (PE) disease, as well as an aid in the diagnosis of deep vein thrombosis (DVT). Performed By: #### L [id number] ####Fuel Oil Clerk: ALBERTINA SAUNDERS ([id number])[facility] ([facility])[address] [place] [address] ECG 12-LEADon 10-27-2024 ECG 12-LEAD IMPRESSION: Sinus tachycardia No STEMI pattern Electronically Signed On 10-27-2024 03:11:39 EDT by Kristen Booker Normal [facility] ED Nursing Noteon 10-27-2024 ED Nursing Note Normal [facility] ED Provider Noteon ED Provider Note Normal [facility] Fibrin D-dimer FEU (PPP) [Ma ss/Vol]Ordered By: Rafael Daily on 10-27-2024 Interpretation and review of laboratory results Normal [facility] D-Dimer va lues of <0.50 mg/L FEU can be used in combination with a pre-test probability model (e.g. Well's) to exclude pulmonary embolism (PE) disease, as well as an aid in the diagnosis of deep vein thrombosis (DVT). [facility] HIGH SENSITIVITY TROPONIN, S ERIAL BASELINEon 10-27-2024 TROPONIN HS SERIAL BASELINE <3 Normal <=14 [facility] Comment on above: Result Comment: In i ndividuals presenting with symptoms > 2h, a baseline troponin <= 5 ng/L suggests acutecardiac injury is unlikely and further serial testing is generally not indicated. Performed By: #### L AB15, [id number], [id number] ####[employer]uel Oil Clerk: ALBERTINA SAUNDERS ([id number])[facility] (RLAB)[address] [place] [address] Laboratory - CoagulationOrde red By: Rafael Daily on 10-27-2024 Fibrin D-dimer FEU (PPP) [Mass/Vol] mg/L NINF - 0.50 mg/L [facility] NT PRO BNPon 10-27-2024 Natriuretic peptide B (Bld) [Mass/Vol] 31 pg/mL Normal <125 [facility] Comment on above: Performed By: #### L AB15, [id number], [id number] ####Fuel Oil Clerk: ALBERTINA SAUNDERS ([id number])[facility] (SWRLAB)[address] [place] [address] [place] Natriuretic peptide B [Mass/ Vol]on 10-27-2024 Interpretation and review of laboratory results Normal [facility] Natriuretic peptide B (Bld) [Mass/Vol] 31 pg/mL NINF - 125 pg/mL [facility] No Panel Informationon 10-27 P [place] 70 degrees [facility] [place] Interval 168 ms [facility] QRS [place] 58 degrees [facility] QRSD Interval 97 ms [facility] QT Interval 332 ms [facility] QTC Interval 462 ms [facility] T Wave [place] 28 degrees [facility] Sinus tachycardia No STEMI pattern Electronically Signed On 10-27-2024 03:11:39 EDT by Kristen Jarquin DO - 10/27/2024 IMPRESSION: Sinus tachycardia No STEMI pattern Electronically Signed On 10-27-2024 03:11:39 EDT by Kristen Booker [facility] Interpretation and review of laboratory results Normal [facility] Troponin HS Serial Baseline ng/L NINF - 14 ng/L [facility] Comment on above: In individuals prese nting with symptoms > 2h, a baseline troponin <= 5 ng/L suggests acute cardiac injury is unlikely and further serial testing is generally not indicated. [facility] Vital signson 10-27-2024 Heart rate 117 /min bpm [facility] 36on 10-26-2024 36 Normal [facility] 36 Normal [facility] BASIC METABOLIC PANELon 10-07 Anion gap [Moles/Vol] 10 mmol/L Normal 3-13 [facility] Comment on above: Performed By: #### L [id number], [id number], LAB15 ####Fuel Oil Clerk: ALBERTINA SAUNDERS ([id number])[facility] AM[facility] (SWRLAB)[address] [place] [address] [place] Calcium [Mass/Vol] 9.0 mg/dL Normal 8.4-10.2 [facility] Comment on above: Performed By: #### L [id number], [id number], LAB15 ####Fuel Oil Clerk: ALBERTINA SAUNDERS ([id number])[facility] CHAMBERLAIN RITTMAN (SWRLAB)[address] [place] [address] [place] Chloride [Moles/Vol] 107 mmol/L Normal 98-107 [facility] Comment on above: Performed By: #### L [id number], [id number], LAB15 ####Fuel Oil Clerk: ALBERTINA SAUNDERS ([id number])[facility] CHAMBERLAIN RITTMAN (SWRLAB)[address] [place] [address] [place] CO2 [Moles/Vol] 23 mmol/L Normal 22-29 [facility] Comment on above: Performed By: #### L [id number], [id number], LAB15 ####Fuel Oil Clerk: ALBERTINA SAUNDERS ([id number])[facility] GOMEZTMAN (SWRLAB)[address] [place] [address] [place] Creatinine [Mass/Vol] 0.83 mg/dL Normal 0.57-1.11 [facility] Comment on above: Performed By: #### L [id number], [id number], LAB15 ####Fuel Oil Clerk: ALBERTINA SAUNDERS ([id number])[facility] GOMEZTMAN (SWRLAB)[address] [place] [address] GLOMERULAR FILTRATION RATE ML/MIN/1.73 SQ M.PREDICTED >90.0 Normal >60.0 [facility] Comment on above: Result Comment: Calc ulation based on the Chronic Kidney Disease Epidemiology Collaboration (CKD-EPI) equation refit without adjustment for race Performed By: #### L [id number], [id number], LAB15 ####Fuel Oil Clerk: ALBERTINA SAUNDERS ([id number])[facility] GOMEZTMAN (SWRLAB)[address] [place] [address] [place] Glucose [Mass/Vol] 101 mg/dL High 74-100 [facility] Comment on above: Performed By: #### L [id number], [id number], LAB15 ####Fuel Oil Clerk: ALBERTINA SAUNDERS ([id number])[facility] GOMEZTMAN (SWRLAB)[address] Potassium [Moles/Vol] 3.6 mmol/L Normal 3.5-5.1 [facility] Comment on above: Result Comment: [facility] potassium values may be up to 0.5 mmol/L lower than serum values. Performed By: #### L [id number], [id number], LAB15 ####Fuel Oil Clerk: ALBERTINA SAUNDERS ([id number])[facility] GOMEZTMAN (SWRLAB)[address] Sodium [Moles/Vol] 140 mmol/L Normal 136-145 [facility] Comment on above: Performed By: #### L [id number], [id number], LAB15 ####Fuel Oil Clerk: ALBERTINA SAUNDERS ([id number])[facility] GOMEZTMAN (SWRLAB)[address] [place] [address] Urea nitrogen [Mass/Vol] 13 mg/dL Normal 8-21 [facility] Comment on above: Performed By: #### L [id number], [id number], LAB15 ####Fuel Oil Clerk: ALBERTINA SAUNDERS ([id number])[facility]esar OLMOSAN (SWRLAB)[address] [place] [address] Basic metabolic 1998 panelon 10-26-2024 Anion gap [Moles/Vol] 10 mmol/L 3 - 13 mmol/L [facility] Calcium [Mass/Vol] 9 mg/dL 8.4 - 10. 2 mg/dL [facility] Chloride [Moles/Vol] 107 mmol/L 98 - 10 7 mmol/L [facility] CO2 [Moles/Vol] 23 mmol/L 22 - 29 mmol/L [facility] Creatinine [Mass/Vol] 0.83 mg/dL 0.57 - 1.11 mg/dL [facility] GFR/1.73 sq M.predicted (S/P/Bld) [Vol rate/Area] - PINF [facility] Comment on above: Calculation based on the Chronic Kidney Disease Epidemiology Collaboration (CKD-EPI) equation refit without adjustment for race Glucose [Mass/Vol] 101 mg/dL High 74 - 100 mg/dL [facility] Interpretation and review of laboratory results Abnormal [facility] Potassium [Moles/Vol] 3.6 mmol/L 3.5 - 5.1 mmol/L [facility] Comment on above: Plasma potassium eliezer ues may be up to 0.5 mmol/L lower than serum values. Sodium [Moles/Vol] 140 mmol/L 136 - 145 mmol/L [facility] Urea nitrogen [Mass/Vol] 13 mg/dL 8 - 21 mg/dL [facility] CBC W Auto Differential pane l (Bld)on 10-26-2024 Basophils (Bld) [#/Vol] 0 10*3/uL 0.0 - 0.2 10*3/uL [facility] Basophils/100 WBC (Bld) 0.4 % 0.0 - 2.0 % [facility] Eosinophils (Bld) [#/Vol] 0.1 10*3/uL 0.0 - 0.5 10*3/uL [facility] Eosinophils/100 WBC (Bld) 1.7 % 0.0 - 6.0 % [facility] Erythrocyte distribution width (RBC) [Ratio] 12 % 11.5 - 15.0 % [facility] Hematocrit (Bld) [Volume fraction] 40.1 % 35.0 - 47.0 % [facility] Hemoglobin (Bld) [Mass/Vol] 13.7 g/dL 11.7 - 16.0 g/dL [facility] Immature granulocytes (Bld) [#/Vol] 0 10*3/uL NINF - 0.1 10*3/uL [facility] DNsolution Immature granulocytes/100 WBC (Bld) 0.2 % 0.0 - 2.0 % [facility] Interpretation and review of laboratory results Normal [facility] Lymphocytes (Bld) [#/Vol] 1.8 10*3/uL 1.0 - 4.3 10*3/uL [facility] Lymphocytes/100 WBC (Bld) 34.3 % 15.0 - 45.0 % [facility] MCH (RBC) [Entitic mass] 28.8 pg 26.0 - 34.0 pg [facility] MCHC (RBC) [Mass/Vol] 34.2 % 30.5 - 36.0 % [facility] MCV (RBC) [Entitic vol] 84.4 fL 77.0 - 99.0 fL [facility] Monocytes (Bld) [#/Vol] 0.4 10*3/uL 0.0 - 0.9 10*3/uL [facility] Monocytes/100 WBC (Bld) 6.6 % 5.0 - 13.0 % [facility] Neutrophils (Bld) [#/Vol] 3 10*3/uL 1.8 - 7.5 10*3/uL [facility] Neutrophils/100 WBC (Bld) 56.8 % 38.0 - 82.0 % [facility] Nucleated RBC/100 WBC (Bld) [Ratio] 0 % [facility] Platelet mean volume (Bld) [Entitic vol] 10.1 fL 9.0 - 12.7 fL [facility] Comment on above: MPV is a calculated measurement using platelet volume ratio Platelets (Bld) [#/Vol] 175 10*3/uL 140 - 440 10*3/uL [facility] RBC (Bld) [#/Vol] 4.75 10*6/uL 3.80 - 5.2 0 10*6/uL [facility] WBC (Bld) [#/Vol] 5.3 10*3/uL 3.6 - 10.7 10*3/uL [facility] CBC WITH AUTO DIFFERENTIALon 10-26-2024 Basophils (Bld) [#/Vol] 0.0 10*3/uL Normal 0.0-0.2 [facility] Comment on above: Performed By: #### L [id number] ####Fuel Oil Clerk: ALBERTINA SAUNDERS ([id number])[facility]BULMAR[facility] SelventaTMAN (SWRLAB)[address] [place] [address] Basophils/100 WBC (Bld) 0.4 % Normal 0.0-2.0 [facility] Comment on above: Performed By: #### L [id number] ####Fuel Oil Clerk: ALBERTINA SAUNDERS ([id number])[facility] RITTMAN (SWRLAB)[address] [place] [address] Eosinophils (Bld) [#/Vol] 0.1 10*3/uL Normal 0.0-0.5 [facility] Comment on above: Performed By: #### L [id number] ####Fuel Oil Clerk: ALBERTINA SAUNDERS ([id number])[facility] CHAMBERLAIN RITTMAN (SWRLAB)[address] [place] [address] [place] Eosinophils/100 WBC (Bld) 1.7 % Normal 0.0-6.0 [facility] Comment on above: Performed By: #### L [id number] ####Fuel Oil Clerk: ALBERTINA SAUNDERS ([id number])[facility] CHAMBERLAIN RITTMAN (SWRLAB)[address] [place] [address] Erythrocyte distribution width (RBC) [Ratio] 12.0 % Normal 11.5-15.0 [facility] Comment on above: Performed By: #### L [id number] ####Fuel Oil Clerk: ALBERTINA SAUNDERS ([id number])[facility] CHAMBERLAIN RITTMAN (SWRLAB)[address] [place] [address] Hematocrit (Bld) [Volume fraction] 40.1 % Normal 35.0-47.0 [facility] Comment on above: Performed By: #### L [id number] ####Fuel Oil Clerk: ALBERTINA SAUNDERS ([id number])[facility] CHAMBERLAIN RITTMAN (SWRLAB)[address] [place] [address] Hemoglobin (Bld) [Mass/Vol] 13.7 g/dL Normal 11.7-16.0 [facility] Comment on above: Performed By: #### L [id number] ####Fuel Oil Clerk: ALBERTINA SAUNDERS ([id number])[facility] CHAMBERLAIN RITTMAN (SWRLAB)[address] [place] [address] IMMATURE GRANS % 0.2 % Normal 0.0-2.0 [facility] Comment on above: Performed By: #### L [id number] ####Fuel Oil Clerk: ALBERTINA SAUNDERS ([id number])[facility] CHAMBERLAIN RITTMAN (SWRLAB)[address] [place] [address] IMMATURE GRANS ABSOLUTE 0.0 10*3/uL Normal <0.1 [facility] Comment on above: Performed By: #### L [id number] ####Fuel Oil Clerk: ALBERTINA SAUNDERS ([phone])[facility] CHAMBERLAIN RITTMAN (SWRLAB)[address] [place] [address] [place] Lymphocytes (Bld) [#/Vol] 1.8 10*3/uL Normal 1.0-4.3 [facility] Comment on above: Performed By: #### L [id number] ####Fuel Oil Clerk: ALBERTINA SAUNDERS ([id number])[facility] CHAMBERLAIN RITTMAN (SWRLAB)[address] [place] [address] Lymphocytes/100 WBC (Bld) 34.3 % Normal 15.0-45.0 [facility] Comment on above: Performed By: #### L [id number] ####Fuel Oil Clerk: ALBERTINA SAUNDERS ([id number])[facility] CHAMBERLAIN RITTMAN (SWRLAB)[address] [place] [address] MCH (RBC) [Entitic mass] 28.8 pg Normal 26.0-34.0 [facility] Comment on above: Performed By: #### L [id number] ####Fuel Oil Clerk: ALBERTINA SAUNDERS ([id number])[facility] CHAMBERLAIN RITTMAN (SWRLAB)[address] [place] [address] MCHC 34.2 % Normal 30.5-36.0 [facility] Comment on above: Performed By: #### L [id number] ####Fuel Oil Clerk: ALBERTINA SAUNDERS ([id number])[facility] CHAMBERLAIN RITTMAN (SWRLAB)[address] [place] [address] MCV (RBC) [Entitic vol] 84.4 fL Normal 77.0-99.0 [facility] Comment on above: Performed By: #### L [id number] ####Fuel Oil Clerk: ALBERTINA SAUNDERS ([id number])[facility] CHAMBERLAIN RITTMAN (SWRLAB)[address] [place] [address] [place] Monocytes (Bld) [#/Vol] 0.4 10*3/uL Normal 0.0-0.9 [facility] Comment on above: Performed By: #### L [id number] ####Fuel Oil Clerk: ALBERTINA SAUNDERS ([id number])SONJA CHAMBERLAIN RITTMAN (SWRLAB)[address] [place] [address] [place] Monocytes/100 WBC (Bld) 6.6 % Normal 5.0-13.0 [facility] Comment on above: Performed By: #### L [id number] ####Fuel Oil Clerk: ALBERTINA SAUNDERS ([id number])[facility] CHAMBERLAIN RITTMAN (SWRLAB)[address] [place] [address] [place] NEUTROPHILS ABSOLUTE 3.0 10*3/uL Normal 1.8-7.5 [facility] Comment on above: Performed By: #### L [id number] ####Fuel Oil Clerk: ALBERTINA SAUNDERS ([id number])SONJA CHAMBERLAIN RITTMAN (SWRLAB)[address] [place] [address] [place] Neutrophils/100 WBC (Bld) 56.8 % Normal 38.0-82.0 [facility] Comment on above: Performed By: #### L [id number] ####Fuel Oil Clerk: ALBERTINA SAUNDERS ([id number])[facility] CHAMBERLAIN RITTMAN (SWRLAB)[address] [place] [address] [place] NRBC 0.0 /100 WBCs Normal 0.0-2.0 [facility] Comment on above: Performed By: #### L [id number] ####Fuel Oil Clerk: ALBERTINA SAUNDERS ([id number])[facility] CHAMBERLAIN RITTMAN (SWRLAB)[address] Platelet mean volume (Bld) [Entitic vol] 10.1 fL Normal 9.0-12.7 [facility] Comment on above: Result Comment: MPV is a calculated measurement using platelet volume ratio Performed By: #### L [id number] ####Fuel Oil Clerk: ALBERTINA SAUNDERS ([id number])[facility] RITTMAN (SWRLAB)[address] [place] [address] [place] Platelets (Bld) [#/Vol] 175 10*3/uL Normal 140-440 [facility] Comment on above: Performed By: #### L [id number] ####Fuel Oil Clerk: ALBERTINA SAUNDERS ([id number])[facility] CHAMBERLAIN RITTMAN (SWRLAB)[address] [place] [address] [place] RBC (Bld) [#/Vol] 4.75 10*6/uL Normal 3.80-5.20 [facility] Comment on above: Performed By: #### L [id number] ####Fuel Oil Clerk: ALBERTINA SAUNDERS ([id number])[facility] CHAMBERLAIN RITTMAN (SWRLAB)[address] [place] [address] [place] WBC (Bld) [#/Vol] 5.3 10*3/uL Normal 3.6-10.7 [facility] Comment on above: Performed By: #### L [id number] ####Fuel Oil Clerk: ALBERTINA SAUNDERS ([id number])[facility] CHAMBERLAIN RITTMAN (SWRLAB)[address] [place] [address] ECG 12-LEADon 10-26-2024 ECG 12-LEAD IMPRESSION: Sinus tachycardia No STEMI pattern Electronically Signed On 10-26-2024 03:27:50 EDT by Kristen Booker Normal [facility] ED Nursing Noteon 10-26-2024 ED Nursing Note Normal [facility] ED Provider Noteon ED Provider Note Normal [facility] HIGH SENSITIVITY TROPONIN, S ERIAL BASELINEon 10-26-2024 TROPONIN HS SERIAL BASELINE <3 Normal <=14 [facility] Comment on above: Result Comment: In i ndividuals presenting with symptoms > 2h, a baseline troponin <= 5 ng/L suggests acutecardiac injury is unlikely and further serial testing is generally not indicated. Performed By: #### L [id number], [id number], [id number] ####Fuel Oil Clerk: ALBERTINA SAUNDERS ([id number])[facility] CHAMBERLAIN RITTMAN (SWRLAB)[address] [place] [address] HIGH SENSITIVITY TROPONIN, S ERIAL, SECOND TESTon 10-26-2024 2H TROPONIN HS (SERIAL 2ND TROPONIN) <3 Normal <=14 [facility] Comment on above: Result Comment: 2h t roponin (2nd troponin) samples collected between 1h 40 min and 2h and 20 min of the baseline collection time can be utilized to interpret delta troponins as per [facility] algorithms. Samples collected outside this timeframe need to be interpreted clinically.Delta value was unable to be calculated as both baseline and serial troponin tests were below the level of quantitation. As both baseline and 2h troponin values are below the level of quantitation, acute cardiac injury is unlikely. Performed By: #### L [id number] ####Fuel Oil Clerk: ALBERTINA SAUNDERS ([id number])[facility] AMADOR (PharmAssistantRLAB)[address] [place] [address] Laboratory - Chemistry and C hemistry - challengeon 10-26-2024 Magnesium [Mass/Vol] 2.2 mg/dL 1.6 - 2 .6 mg/dL [facility] MAGNESIUMon 10-26-2024 Magnesium [Mass/Vol] 2.2 mg/dL Normal 1.6-2.6 [facility] Comment on above: Result Comment: YESENIA R COMMENTS:Higher values can be expected in females during menses. Performed By: #### L [id number], [id number], LAB15 ####Fuel Oil Clerk: ALBERTINA SAUNDERS ([id number])[facility] AMADOR (SWRLAB)[address] [place] [address] Magnesium [Mass/Vol]on 10-26 Interpretation and review of laboratory results Normal [facility] Higher values can be expected in females during menses. [facility] No Panel Informationon 10-26 2h Troponin HS (Serial 2nd Troponin) ng/L NINF - 14 ng/L [facility] Comment on above: 2h troponin (2nd tro ponin) samples collected between 1h 40 min and 2h and 20 min of the baseline collection time can be utilized to interpret delta troponins as per [facility] algorithms. Samples collected outside this timeframe need to be interpreted clinically. Delta value was unable to be calculated as both baseline and serial troponin tests were below the level of quantitation. As both baseline and 2h troponin values are below the level of quantitation, acute cardiac injury is unlikely. Interpretation and review of laboratory results Normal [facility] Interpretation and review of laboratory results Normal [facility] Troponin HS Serial Baseline ng/L NINF - 14 ng/L [facility] Comment on above: In individuals prese nting with symptoms > 2h, a baseline troponin <= 5 ng/L suggests acute cardiac injury is unlikely and further serial testing is generally not indicated. [facility] P [place] 42 degrees [facility] [place] Interval 149 ms [facility] QRS [place] 57 degrees [facility] QRSD Interval 97 ms [facility] QT Interval 347 ms [facility] QTC Interval 454 ms [facility] T Wave [place] 21 degrees [facility] Sinus tachycardia No STEMI pattern Electronically Signed On 10-26-2024 03:27:50 EDT by Kristen Jarquin DO - 10/26/2024 IMPRESSION: Sinus tachycardia No STEMI pattern Electronically Signed On 10-26-2024 03:27:50 EDT by Kristen Booker [facility] Vital signson 10-26-2024 Heart rate 103 /min bpm [facility] XR Chest Single viewon 10-26 No acute abnormality Report Dictated on Electronically Signed By: Petros Bazan MD Electronically Signed Date/Time: 10/26/2024 3:51 AM EDT [facility] [employer] [facility] 1995 [id number] Exam Date/Time: 10/26/2024 03:21 Procedure: XR CHEST 1 VIEW Ordering Provider: BOOKER MEJGON Reason For Exam: CHEST PAIN; Chest Pain PORTABLE CHEST CLINICAL INDICATION: CHEST PAIN; Chest Pain. TECHNIQUE: Portable AP COMPARISON: 05/10/2019 FINDINGS: Exam quality: EKG leads obscure small portions of the chest. The heart and mediastinum are normal. The lungs are clear. Costophrenic angles are sharp. The osseous structures are unremarkable. [facility] Petros Bazan MD - 10/26/2024 Patient Name: MACHELLE DULCE MARIA : 1995 Exam Date/Time: 10/26/2024 03:21 Procedure: XR CHEST 1 VIEW Ordering Provider: BOOKER MEJGON Reason For Exam: CHEST PAIN; Chest Pain PORTABLE CHEST CLINICAL INDICATION: CHEST PAIN; Chest Pain. TECHNIQUE: Portable AP COMPARISON: 05/10/2019 FINDINGS: Exam quality: EKG leads obscure small portions of the chest. The heart and mediastinum are normal. The lungs are clear. Costophrenic angles are sharp. The osseous structures are unremarkable. IMPRESSION: No acute abnormality Report Dictated on Electronically Signed By: Petros Bazan MD Electronically Signed Date/Time: 10/26/2024 3:51 AM EDT [facility] Radiology Study observation (narrative) [facility] DNsolution XR Chest Single viewOrdered By: Petros Bazan on 10-26-2024 [facility] Progress Noteon 10-23-2024 Progress Note Normal [facility] Progress Noteon 10-21-2024 Progress Note Normal [facility] Surgery Visit Reporton 10-20 Surgery Visit Report [facility] [address] [place] [address] OFFICE VISIT Date of Service: 10/20/24 MR#: [id number] Acct: [id number] Name: MACHELLEDULCE MARIA ELIZ Rep #: [id number] : 1995 Provider: Dr. Lawrence hernandez MD Age/Sex: 28/F Location: [facility] Status: Signed Intake Vital Signs 10/15/24 07:47 Height 5 ft 6 in Weight: 168 lb BMI 27.1 BP 111/76 Blood Pressure Location Lt brachial Position Sitting Respiration 18 Pulse 93 Pulse Source Monitor Pulse Oximetry (%) 97 Intake Visit Reasons: POSSIBLE INFECTED LUMPECTOMY SITE Chief Complaint: possible infected lumpectomy site Is patient in pain?: Yes Allergies nitrofurantoin Allergy (Severe, Verified 10/20/24 12:53) difficulty breathing alprazolam Adverse Reaction (Intermediate, Verified 10/20/24 12:53) PT UNSURE OF REACTION quetiapine Adverse Reaction (Intermediate, Verified 10/20/24 12:53) PT UNSURE OF REACTION Medications ???Medication ???Instructions ???Recorded ???Confirmed ???Type L. crispatus, gasseri, jensenii, 2 tab PO DAILY PRN 10/15/24 History rhamnosus 12 billion cell chew tablet (Culturelle Probiotic) buspirone 7.5 mg tablet 7.5 mg PO BID 10/15/24 10/20/24 Hi story docosahexaenoic acid 200 mg 200 mg PO DAILY PRN 10/15/2410/20 History capsule ( DHA) Subjective Details: Patient is a 28-year-old female status post a left breast lumpectomy. She developed a fluid collection consisting of milky fluid as she was breast-feeding. This seems to be resolving. We aspirated the fluid collection at her last visit. She states that it did fill in somewhat with additional fluid but she denies any pain or significant swelling. She has had some other recent medical issues but I do not feel that these are related to the breast. Objective Details: She is alert and orient x 3. She is in no acute distress. Examination of the left breast reveals a nicely healing incision. No surrounding erythema. This area was reviewed with the ultrasound and there is some degree of fluid. We discussed options of observation versus aspiration and we have decided that we would observe since there is no evidence of infection Coding Level of Care Code Global Post Op Diagnoses Abnormal ultrasound of breast R92.8 [facility] Medical History Adenoma of breast Thyroid disease Migraine headache History of Holter monitoring History of echocardiogram Cardiology follow-up encounter Vasovagal near syncope IBS (irritable bowel syndrome) GERD (gastroesophageal reflux disease) Diseases of the circulatory system complicating , unspecified trimester Supraventricular tachycardia, unspecified Supraventricular tachycardia during Heart palpitations History of kidney disease Hypothyroidism affecting Normal endoscopic ultrasound of upper gastrointestinal tract Seasonal allergies Supervision of high-risk Infertility associated with anovulation Surgical History S/P lumpectomy, left breast Hx of tonsillectomy [place] teeth extracted History of tonsillectomy Family History Grandmother Colon cancer Diabetes Mother Diabetes Pancreatic cancer Social History adopted: No household members: spouse and children number of children: 2 current occupational status: unemployed current occupation: [employer] current occupational exposures/hazards: No pets and animals: Yes (NOT MANAGING LITTERBOX) pets and animals: cat(s), dog(s), horse(s) and farm animals history of recent travel: No sexually active: Yes Smoking Status: Never smoker alcohol intake: never substance use type: does not use diet: other well-balanced diet: daily or most days caffeine: No eating out: 1-3 times/week during the past year weight has: remained stable what type of physical activity do you participate in: weight training frequency: 5-6 times per week duration: 15-30 minutes/day gale/restoration: Anglican seatbelt use: always do you feel safe at home: Yes additional social history: - [place] Assessment and Plan (No Qualifiers) Assessment and Plan (1) Abnormal ultrasound of breast: Status: Acute Plan: The patient is a 28-year-old female status post a left breast lumpectomy complicated by a seroma/milky fluid collection. This seems to be resolving following most recent aspiration attempt. I recommend follow-up as needed. I suggested that she contact my office should any questions or concerns arise. 10/20/24 1333 Date ___ (more content not included)... Normal [facility] Progress Noteon 10-18-2024 Progress Note Normal [facility] RENAL FUNCTION PANELon 10-17 Albumin [Mass/Vol] 4.0 g/dL Normal 3.5-5.0 [facility] Comment on above: Performed By: #### L [id number] ####Fuel Oil Clerk: ALBERTINA SAUNDERS ([id number])[facility] [place] ([facility])[address] Anion gap [Moles/Vol] 8 mmol/L Normal 3-13 [facility] Comment on above: Performed By: #### L AB19 ####Fuel Oil Clerk: ALBERTINA SAUNDERS ([id number])[facility] (SW[facility])[address] Calcium [Mass/Vol] 9.2 mg/dL Normal 8.4-10.2 [facility] Comment on above: Performed By: #### L AB19 ####Fuel Oil Clerk: ALBERTINA SAUNDERS ([id number])[facility] [place] [place] ([place])[address] Chloride [Moles/Vol] 106 mmol/L Normal 98-107 [facility] Comment on above: Performed By: #### L AB19 ####Fuel Oil Clerk: ALBERTINA SAUNDERS ([id number])[facility] [place] [place] ([place])[address] CO2 [Moles/Vol] 27 mmol/L Normal 22-29 [facility] Comment on above: Performed By: #### L AB19 ####Fuel Oil Clerk: ALBERTINA SAUNDERS ([id number])[facility] [place] [place] ([place])[address] Creatinine [Mass/Vol] 0.86 mg/dL Normal 0.57-1.11 [facility] Comment on above: Performed By: #### L AB19 ####Fuel Oil Clerk: ALBERTINA SAUNDERS ([id number])[facility] [place] ([place])[address] GLOMERULAR FILTRATION RATE ML/MIN/1.73 SQ M.PREDICTED >90.0 Normal >60.0 [facility] Comment on above: Result Comment: Calc ulation based on the Chronic Kidney Disease Epidemiology Collaboration (CKD-EPI) equation refit without adjustment for race Performed By: #### L AB19 ####Fuel Oil Clerk: ALBERTINA SAUNDERS ([id number])[facility] [place]LA[facility] [place] (SWRL[place])[address] [place] [address] [place] Glucose [Mass/Vol] 102 mg/dL High 74-100 [facility] Comment on above: Performed By: #### L AB19 ####Fuel Oil Clerk: ALBERTINA SAUNDERS ([id number])[facility] [place] [place] (SW[place])[address] [place] [address] [place] Phosphate [Mass/Vol] 3.9 mg/dL Normal 2.3-4.7 [facility] Comment on above: Performed By: #### L AB19 ####Fuel Oil Clerk: ALBERTINA SAUNDERS ([id number])[facility] [place] ([place])[address] Potassium [Moles/Vol] 4.2 mmol/L Normal 3.5-5.1 [facility] Comment on above: Result Comment: [facility] potassium values may be up to 0.5 mmol/L lower than serum values. Performed By: #### L AB19 ####Fuel Oil Clerk: ALBERTINA SAUNDERS ([id number])[facility] [place] [place] ([place])[address] [place] [address] [place] Sodium [Moles/Vol] 141 mmol/L Normal 136-145 [facility] Comment on above: Performed By: #### L AB19 ####Fuel Oil Clerk: ALBERTINA SAUNDERS ([id number])[facility] [place] [place] ([place])[address] Urea nitrogen [Mass/Vol] 14 mg/dL Normal 8-21 [facility] Comment on above: Performed By: #### L AB19 ####Fuel Oil Clerk: ALBERTINA SAUNDERS ([id number])[facility] [place]BERLA[facility] [place] (SWRLAB)[address] Cardiology Visit Reporton Cardiology Visit Report [facility] [address] [place] [address] OFFICE VISIT Date of Service: 10/15/24 MR#: [id number] Acct: [id number] Name: UDLCE MARIA CARTY Rep #: [id number] : 1995 Provider: MILLI Nelson Age/Sex: 28/F Location: [facility] Status: Signed HPI HPI History of Present Illness Details: Dulce Maria Carty is a 28-year-old female who presents today for follow-up for monitoring her cardiovascular health. She presented with concerns of palpitations during her second . Patient was admitted to [facility] 10/09 - 10/11/2024 after presenting with recurrent episodes of palpitations, lightheadedness and near syncope and abdominal pain. Per documentation, she has been seen for this in the past. MRI head and neck and EEG were negative and it is documented that she had a negative brain CT, CT angiogram of the chest, blood work and EKG in the past. She was discharged from the hospital with recommendations of starting buspirone and Pristiq and her metoprolol was discontinued. Upon presentation today, patient reports about 2 weeks ago she started noticing feeling described as an adrenaline francois. She felt her heart rate racing and not resolving. A weeks prior, she noticed neck and head pain. She noticed a burst of head pressure from neck to her head when she was on vacation in [place]. She was evaluated in the ED there and reports negative head CT. She had a couple of episodes of stomach pain with rapid heart rates and shaking. She returned home, experienced an episode of near syncope and presented to [facility]. She reports blood work, EKG and work-up wasn't significant. She has purchased a watch for monitoring her heart rate. She reports ongoing neck pressure/tightness, flushing, muscle weakness, tachycardia, and some shortness of breath. She reports the only change recently is that she is weaning her 1 year old from breast feeding. Overall, she feels her symptoms are better as she is not noticing them as many times throughout the day. She continues to notice them daily, usually in the morning. She had a lumpectomy about 8 weeks ago and was followed by fluid/milk removal around the time her symptoms started. Further ROS below. Patient reports they are trying to have another baby But she is not currently . Intake Vital Signs 07/15/25 10:41 10/15/24 07:47 Height 5 ft 6 in 5 ft 6 in Weight: 168 lb BMI 27.1 BP 111/76 Blood Pressure Location Lt brachial Position Sitting Respiration 18 Pulse 93 Pulse Source Monitor Pulse Oximetry (%) 97 Intake Visit Reasons: S/P [facility] 10/11 Home Care Administrator Required: No Is patient in pain?: No Allergies nitrofurantoin Allergy (Severe, Verified 10/15/24 08:58) difficulty breathing alprazolam Adverse Reaction (Intermediate, Verified 10/15/24 08:58) PT UNSURE OF REACTION quetiapine Adverse Reaction (Intermediate, Verified 10/15/24 08:58) PT UNSURE OF REACTION Medications ???Medication ???Instructions ???Recorded ???Confirmed ???Type L. crispatus, gasseri, jensenii, 2 tab PO DAILY PRN 10/15/24 History rhamnosus 12 billion cell chew tablet (Culturelle Probiotic) buspirone 7.5 mg tablet 7.5 mg PO BID 10/15/24 10/15/24 Hi story docosahexaenoic acid 200 mg 200 mg PO DAILY PRN 10/15/2410/15 History capsule ( DHA) Ejection fraction %: 60 Have you fallen in the past year?: No PFSH Medical History Adenoma of breast Thyroid disease Migraine headache History of Holter monitoring History of echocardiogram Cardiology follow-up encounter Vasovagal near syncope IBS (irritable bowel syndrome) GERD (gastroesophageal reflux disease) Diseases of the circulatory system complicating , unspecified trimester Supraventricular tachycardia, unspecified Supraventricular tachycardia during Heart palpitations History of kidney disease Hypothyroidism affecting Normal endoscopic ultrasound of upper gastrointestinal tract Seasonal allergies Supervision of high-risk Infertility associated with anovulation Surgical History S/P lumpectomy, left breast Hx of tonsillectomy [place] teeth extracted History of tonsillectomy Family History Grandmother Colon cancer Diabetes Mother Diabetes Pancreatic cancer Social History adopted: No household members: spouse and children number of children: 2 current occupational status: unemployed 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 [facility] 36on 10-13-2024 36 Pt scheduled 11/11/24 at 2pm. Pt is aware of the appt date and time [facility] 36 Pt checking status o f fu w OC. Pt seen [facility], night through Sunday. Episodes of dizziness lightheaded vision dims and shaky HR 130's. [facility] CNDSon 10-11-2024 CNDS HNO ID: [id number] Author: TING FREGOSO MD Service: General Internal Medicine Author Type: Physician Type: Discharge Summary Filed: 10/11/2024 19:05 Note Text: DISCHARGE SUMMARY PATIENT NAME: May Machelle ADMISSION DATE: 10/09/2024 DISCHARGE DATE: 10/11/2024 ATTENDING PHYSICIAN: Ting Fregoso MD Code Status: Full Code Highest Readmission Risk Score: 8 The 30 day readmissions risk score is derived from an internally validated risk model which evaluates patient level characteristics, utilization history, medication orders and lab results up until the day of discharge. Patients with a score of 39 or above are considered highest risk for readmission. Specific patient level drivers will be listed at the bottom of the summary. CONSULTING TEAMS DURING HOSPITALIZATION: syncope Treatment Team: Attending Provider: Ting Fregoso MD Consulting: Sebastian De La Cruz MD REASON FOR HOSPITALIZATION: same. anxiety FINAL DIAGNOSIS: same Active Hospital Problems Diagnosis POA Syncope and collapse Yes Lightheadedness Unknown Pressure in head Unknown Near syncope Unknown Resolved Hospital Problems No resolved problems to display. OPERATIONS DURING HOSPITALIZATION: None PROCEDURES DURING HOSPITALIZATION: No procedures performed HOSPITAL COURSE: Patient presenting for evaluation secondary to recurrent episodes of palpitations lightheadedness near syncope head fullness and abdominal pain. Patient states that for a little over a week now she has been having these recurrent episodes where she feels fullness in her head, feels that her heart is racing, and feels presyncopal as if she can pass out. When the episodes happen she states that occasionally her vision will do them. She states that initially it was associated mainly with palpitations in her chest, but now seems to be associated with a feeling of fullness in her upper abdomen. Patient's been seen in the emergency department a couple times for this, has had a negative brain CT, CT angiogram of the chest, blood work, and EKG. Patient states that the symptoms are continuing to recur, and are maybe even lasting longer than they had initially. She is not on any prescription medications other than she recently was started on a beta-yeyo by her PCP in response to these episodes. She denies any history of thyroid disease. She denies any stimulant use. She denies any tick bites. No prior similar episodes in the past. She was seen by her PCP today who recommended hospitalization. Her workup thus far today has been all negative. MRI head neck and EEG. I feel that some of this may be psychosomatic. All of vero testing here was negative. I discussed with her that this very well maybe just anxiety . She is willing to try something for it. We discussed putting her on pristiq and buspar. She can take her hydroxyzine prn . She will follow up with Dr Rome Transitions of Care Critical Issues: none LABS AND PROCEDURES PENDING AT DISCHARGE: No pending results. PATIENT CONDITION AT DISCHARGE: Stable DISCHARGE DISPOSITION: Home with Self Care Discharge Physical Exam: VITAL SIGNS: BP 122/84 Pulse 107 Temp 36.8 ?C (98.2 ?F) (Oral) Resp 16 Ht 167.6 cm (5' 6") Wt 75.4 kg (166 lb 3.6 oz) SpO2 99% BMI 26.83 kg/m? GENERAL: Alert, no distress, cooperative LUNGS: Lungs clear to auscultation, Good diaphragmatic excursion CARDIAC: Normal S1 and S2; no rubs, murmurs, or gallops ABDOMEN: Abdomen soft, non-tender, BS normal, No masses or organomegaly EXTREMITIES: Extremities normal, no deformities, edema, clubbing or skin discoloration. Good capillary refill., No ulcers NEURO: Gait normal. Reflexes normal and symmetric. Sensation grossly intact, Cranial nerves II-XII intact INFORMATION PROVIDED TO PATIENT: none WOUND/SURGICAL SITE CARE: None DIET: Resume your pre-hospital diet ACTIVITY: Resume pre-hospital activity ALLERGIES Allergen Reactions Alprazolam Unknown Quetiapine Fumarate Unknown DISCHARGE MEDICATION: Medication List START taking these medications busPIRone 7.5 mg tablet Commonly known as: BUSPAR Take 1 tablet by mouth two times a day. desvenlafaxine ER 50 mg 24 hr tablet Commonly known as: PRISTIQ Take 1 tablet by mouth once daily. CONTINUE taking these medications 19 PO STOP taking these medications metoprolol succinate ER 25 mg 24 hr tablet Commonly known as: TOPROL XL Where to Get Your Medications These medications were sent to [id number] - [place] [address] - [address] - [phone] [address] [place] [address] busPIRone 7.5 mg tablet desvenlafaxine ER 50 mg 24 hr tablet FUTURE APPOINTMENTS: Follow Up with PCP: Zachariah Rome, The patient's risk for 30-day readmission is determined using the following contributing factors: Predictive Model Details 8% (Low) Factor Value Calculated 9/ (more content not included)... Normal [facility] CONSULT PROGon 10-11-2024 CONSULT PROG HNO ID: [id number] Author: PRERNA GARCIA MD Service: Neurology General Author Type: Physician Type: Consult Progress Note Filed: 10/11/2024 18:31 Note Text: The Teleneurologist or JONNY is available from 8 am to 5 pm on weekdays. On weekends, at [place] and [place], the Teleneurologist or JONNY is available from 8 am to 5 pm, [facility] 8 am to 12 pm, [place] 1 pm to 5 pm, [facility] 8 am to 12 pm, [place] 1 pm to 5 pm. Statutory holidays do not have teleneuro coverage. [place]/[facility]: During Off hours for Teleneurology please page (not call) [place] [facility] [phone] client service consultant for concerns. [facility]: During Off hours for Teleneurology please page (not call) [place] [facility] [phone] client service consultant for concerns. [facility]: There is no off-hours coverage for Teleneurology. CC And HPI Patient generally feels slightly better. She does not have any new problems. ROS and any significant events: She is felt worsening pressure in her neck and head when she was going through the MRI as a result. Neurologic examination: BP 122/84 Pulse 107 Temp 36.8 ?C (98.2 ?F) (Oral) Resp 16 Ht 167.6 cm (5' 6") Wt 75.4 kg (166 lb 3.6 oz) SpO2 99% BMI 26.83 kg/m? Examination was not done as both of her small children were visiting. Her previous examination was normal. She does not report any changes. Orthostatic blood pressure measurements were done. Lying down heart rate was 94 blood pressure was 134/87 Sitting up heart rate 94 blood pressure 130/84 Standing heart rate was 112 blood pressure was 123/92 Review of Data and Images Latest Ref Rng 10/09/2024 10/10/2024 [facility] High Sensitivity <12 ng/L <6 CRP <0.9 mg/dL <0.3 Lyme Antibodies, Screen Negative Negative TSH 0.270 - 4.200 mIU/L 0.819 1.830 Magnesium 1.7 - 2.3 mg/dL 1.9 Common Neurology Labs: Last 3 sets of ESR, CRP, CK, Vitamin B12, MMA, Folate, Vitamin D, Copper Latest Ref Rng AND Units 10/09/2024 ESR, WSR WSR 0 - 20 mm/hr 2 Latest Ref Rng AND Units 10/09/2024 CRP CRP <0.9 mg/dL <0.3 No data to display Latest Ref Rng AND Units 10/10/2024 Vitamin B12 Vitamin B12 232 - 1,245 pg/mL 532 No data to display No data to display No data to display No data to display MRI Head/Brain - Last 2 Impressions MRI BRAIN WO/W IVCON Exam End: 10/10/2024 10:07 AM (Final result) Impression: IMPRESSION: Normal contrast-enhanced MRI of the brain and cervical spine. Anatomic Variant: None. Assume 7 cervical vertebrae with counting from ... MRI BRAIN WO IVCON Exam End: 09/13/2022 6:42 AM (Final result) Impression: Normal MRI of the brain without contrast. Report Dictated on Electronically Signed By: Dameon De La Vega MD ... MRI Cervical Spine - Last 2 Impressions MRI CERVICAL SPINE WO/W IVCON Exam End: 10/10/2024 10:07 AM (Final result) Impression: IMPRESSION: Normal contrast-enhanced MRI of the brain and cervical spine. Anatomic Variant: None. Assume 7 cervical vertebrae with counting from the craniocervical junction. Pocket Secretary Assembler: GENE Transcribe Date/Time: Oct 10 2024 10:15A Dictated by : TESS THOMPSON, This examination was interpreted and the report reviewed and electronically signed by: TESS THOMPSON, on Oct 10 2024 10:22AM EST Recent EEG's EPIL EEG BEDSIDE/PORTABLE - 20 MINUTE ONLY W/VIDEO Collected: 10/10/2024 12:00 AM (Final result) Narrative: [facility] EPIL EEG Bedside/Portable - 20 minute only w/video [[id number]] Patient name: MAY MACHELLE... Impression: This EEG is within normal limits. No epileptiform discharges or EEG seizures were seen during this recording. Diagnosis: Primary: R56.9 Unspecified convulsions Interpreted and electronically signed by Cedric Bella M.D. Date of signin10/10/2024 1 Assessment and Recommendations Head and neck pressure I discussed the MRI scan results. No evidence of multiple sclerosis. Intermittent episodes of lightheadedness. While her heart rate went up her blood pressure did not change substantially. I discussed the orthostatic blood pressure measurements. She will check with the volumetric weigher and see if she can get a formal tilt table test arranged. I told her that this may take a while she should lie down if she gets lightheaded. She should increase fluid intake. 3. Shaking episodes EEG is normal. Patient's Cat was present during the entire discussion. I answered all the questions. Assessment AND Plan Syncope and collapse Lightheadedness Pressure in head Near syncope Teleneurology will not follow this patient. Please call for additional assistance. Prerna Garcia MD Neurology Attending Physician [facility] [place] October 11, 2024 Patient was seen using telemedicine services on this date. Examination was completed by Teleneurology video ([employer] system) assisted by Teleneurology nurse at bedside. I spent a total of approx (more content not included)... Normal [facility] B. burgdorferi IgG and IgM p bushra (S)on 10-10-2024 B. burgdorferi IgG+IgM Qn (S) Negative Normal Negative [facility] Comment on above: Order Comment: Speci men Type: BLOOD SPECIMEN Ordering Facility: [facility] Address: [address], [place] [address] Result Comment: Rece nt infection with B. burgdorferi sensu lato cannot be excluded if the specimen collected within four weeks after the onset of signs and symptoms or within six weeks after a known tick exposure. Clinical and epidemiological correlation is required. Performed By: #### 2 4323-8, 08823-1, [id number], 3016-3 #### [facility] CLIA [id number] [address] [place] [address] [facility] CONSULTon 10-10-2024 CONSULT HNO ID: [id number] Author: PRERNA GARCIA MD Service: Neurology General Author Type: Physician Type: Consults Filed: 10/10/2024 12:59 Note Text: The Teleneurologist or JONNY is available from 8 am to 5 pm on weekdays. On weekends, at [place] and [place], the Teleneurologist or JONNY is available from 8 am to 5 pm, [facility] 8 am to 12 pm, [place] 1 pm to 5 pm, [place] 8 am to 12 pm, [place] 1 pm to 5 pm. Statutory holidays do not have teleneuro coverage. [place]: During Off hours for Teleneurology please page (not call) [place] [facility] [phone] client service consultant for concerns. [place]: During Off hours for Teleneurology please page (not call) [place] [facility] [phone] client service consultant for concerns. [facility]: There is no off-hours coverage for Teleneurology. NEUROLOGY CONSULTATION Thank you for the consultation request. Name: May Machelle Age: [age] year old Gender: female Chief Complaint:Abdominal Pain (PT presents to the ED from home via EMS. Pt complaint of ABD pain that has been present for multiple days. PT has been in seen in the ED multiple times over the last 5 days. PT states it feels like a fullness or like there is air in her abdomen. PT was seen last evening for multiple concerns that were ruled out. PT has no other complaints at this time. ) Admission Date: 10/09/2024 Consult Requested By: , recommendations will be communicated by shared medical record. HPI: Dulce Maria is a 28 year old female presenting with multiple neurological symptoms. This is a 28-year-old woman who comes with history of head pressure lightheadedness and "an adrenaline feeling". Her symptoms worsened intermittently. She also has history of stomach pain. She has had episodes of shaking without loss of consciousness. Her symptoms increased when she is upright. She generally feels better when she is lying down. She has increased heart rate and chest pressure. She feels like sometimes she is going to pass out. 1 day she felt as if she was going to . There is no history of anything in particular that brought her symptoms on. There is no history of headaches but she has pressure in her neck and head. She has intermittent fluctuation of vision particularly when she feels lightheaded and dizzy. She has never had any seizures. Shaking episodes are not associated with other symptoms such as tongue biting or loss of control of continence. Past medical history: She has history of protein in the urine after her first child was born. After having second child was born she had fatigue and reduced number of menstrual period's. She had an endocrinological workup. She had MRI of the pituitary. She has had palpitations during and has had cardiac evaluations. She had a lumpectomy 8 weeks back and was on antibiotics following this for discharge. Social history: She does not smoke or drink alcohol. She lives at home. She is a mother of two children. There is no history of drug use. She is and lives with her . Review of systems: She has not had any weight loss. She denies any significant psychiatric issues. Limited inpatient notes copied for reference Patient presenting for evaluation secondary to recurrent episodes of palpitations lightheadedness near syncope head fullness and abdominal pain. Patient states that for a little over a week now she has been having these recurrent episodes where she feels fullness in her head, feels that her heart is racing, and feels presyncopal as if she can pass out. When the episodes happen she states that occasionally her vision will do them. She states that initially it was associated mainly with palpitations in her chest, but now seems to be associated with a feeling of fullness in her upper abdomen. Patient's been seen in the emergency department a couple times for this, has had a negative brain CT, CT angiogram of the chest, blood work, and EKG. Patient states that the symptoms are continuing to recur, and are maybe even lasting longer than they had initially. She is not on any prescription medications other than she recently was started on a beta-yeyo by her PCP in response to these episodes. She denies any history of thyroid disease. She denies any stimulant use. She denies any tick bites. No prior similar episodes in the past. She was seen by her PCP today who recommended hospitalization. Physical examination BP 99/64 Pulse 86 Temp 36.9 ?C (98.4 ?F) (Oral) Resp 16 Ht 167.6 cm (5' 6") Wt 75.4 kg (166 lb 3.6 oz) SpO2 98% BMI 26.83 kg/m? Patient is awake alert and oriented to person place and time. Speech and language is normal. Repetition intact. Naming intact Cranial nerve examination shows normal visual redmond.Pupils normal, Vision is intact to limited testing. Eye movements are normal without nystagmus. Facial movements and sensation are normal. Tongue and palate movements are normal. Sternomastoid (more content not included)... Normal [facility] Folate SerPl-mCncon 10-11-19 25 Folate [Mass/Vol] 19.8 ng/mL Normal >4.7 [facility] Comment on above: Order Comment: Speci men Type: BLOOD SPECIMEN Ordering Facility: [facility] Address: [address] [place] [address] Performed By: #### 2 4323-8, 02030-4, [id number], 3016-3 #### [facility] CLIA [id number] [address] [place] [address] [place] HISTORY PHYSICALon HISTORY PHYSICAL HNO ID: [id number] Author: TING FREGOSO MD Service: General Internal Medicine Author Type: Physician Type: H&P Filed: 10/10/2024 16:50 Note Text: HISTORY AND PHYSICAL EXAMINATION SERVICE DATE: 10/10/2024 SERVICE TIME: 10:25 AM PRIMARY CARE PHYSICIAN: Zachariah Rome DO Subjective CHIEF COMPLAINT: syncope HPI: Expand All Collapse All ED Provider Note Patient Name: Dulce Maria Carty : 1995 SERVICE DATE: 10/09/24 History Patient presents with: Abdominal Pain: PT presents to the ED from home via EMS. Pt complaint of ABD pain that has been present for multiple days. PT has been in seen in the ED multiple times over the last 5 days. PT states it feels like a fullness or like there is air in her abdomen. PT was seen last evening for multiple concerns that were ruled out. PT has no other complaints at this time. Patient presenting for evaluation secondary to recurrent episodes of palpitations lightheadedness near syncope head fullness and abdominal pain. Patient states that for a little over a week now she has been having these recurrent episodes where she feels fullness in her head, feels that her heart is racing, and feels presyncopal as if she can pass out. When the episodes happen she states that occasionally her vision will do them. She states that initially it was associated mainly with palpitations in her chest, but now seems to be associated with a feeling of fullness in her upper abdomen. Patient's been seen in the emergency department a couple times for this, has had a negative brain CT, CT angiogram of the chest, blood work, and EKG. Patient states that the symptoms are continuing to recur, and are maybe even lasting longer than they had initially. She is not on any prescription medications other than she recently was started on a beta-yeyo by her PCP in response to these episodes. She denies any history of thyroid disease. She denies any stimulant use. She denies any tick bites. No prior similar episodes in the past. She was seen by her PCP today who recommended hospitalization. Her workup thus far today has been all negative. MRI head neck and EEG. I feel that some of this may be psychosomatic. Will await cardio eval and will probably dc in the am FUNCTIONAL STATUS: Independent No past medical history on file. PAST SURGICAL HISTORY Procedure Laterality Date BREAST LUMPECTOMY HX 08/2024 COLONOSCOPY 03/2024 TONSILLECTOMY AND ADENOIDECTOMY FAMILY HISTORY Problem Relation Age of Onset Colon Cancer Maternal Grandmother SOCIAL HISTORY[1] Prior to Admission Medications Prescriptions Last Dose Informant Patient Reported? Taking? metoprolol succinate ER (TOPROL XL) 25 mg 24 hr tablet 10/08/2024 Morning Yes Yes Sig: Take 12.5 mg by mouth once daily. no115/iron/folic acid ( 19 ORAL) 10/08/2024 Morning Yes Yes Sig: Take 1 tablet by mouth once daily. Facility-Administered Medications: None ALLERGIES Allergen Reactions Alprazolam Unknown Quetiapine Fumarate Unknown COMPLETE REVIEW OF SYSTEMS: 10 point ros negative except for hpi Objective PHYSICAL EXAM: Physical Exam Performed: GENERAL: Alert, no distress, cooperative SKIN: Skin color, texture, turgor normal. No rashes or lesions. HEAD/SINUSES: No significant findings EYES: PERRLA, EOMI EARS: External ears normal, canals clear NOSE: Nares normal. Septum midline. OROPHARYNX: Lips, mucosa, and tongue normal. Teeth and gums normal. Oropharynx normal. NECK: No jugulovenous distention, No carotid bruits, Carotid pulse normal contour, Supple LUNGS: Lungs clear to auscultation, Good diaphragmatic excursion CARDIAC: Normal S1 and S2; no rubs, murmurs, or gallops ABDOMEN: Abdomen soft, non-tender, BS normal, No masses or organomegaly EXTREMITIES: Extremities normal, no deformities, edema, clubbing or skin discoloration. Good capillary refill., No ulcers NEURO: Gait normal. Reflexes normal and symmetric. Sensation grossly intact, Cranial nerves II-XII intact BP 99/64 Pulse 86 Temp (Src) 98.4 (Oral) Resp 16 Ht 5' 6" (1.68m) Wt 166 lb 3.6 oz (75.4kg) SpO2 98% BMI 26.84 kg/(m2). O2 Therapy: Room Air DATA: Diagnostic tests reviewed for today's visit: Most recent labs and imaging results. Assessment AND Plan Syncope and collapse Present on Admission: Yes Lightheadedness Head and neck pressure Palpitations ?POTS Plan Will await cardio eval Check orthostats Likely home in am Medication and Non-Pharmacologic VTE Prophylaxis/Anticoagulan ts 10/09/24 1600 activity - mobilize patient (ks,pr) VTE Prophylaxis: VTE prophylaxis appropriate SIGNATURE: Ting Fregoso MD PATIENT NAME: May Machelle DATE: October 10, 2024 TIME: 10:25 AM [1] Social History Tobacco Use Smoking status: Never Smokeless tobacco: Never Vaping Use Vaping status: Never Used Substance Use Topics Drug use: Never Normal [facility] MRI BRAIN WO/W IVCONon 10-10 MRI BRAIN WO/W IVCON * * *Final Report* * * DATE OF EXAM: Oct 10 2024 10:07AM [facility] 0295 - MRI BRAIN WO/W IVCON / PROCEDURE REASON: Syncope, simple, abnormal neuro exam * * * * Physician Interpretation * * * * EXAMINATION: MRI BRAIN WO/W IVCON, MRI CERVICAL SPINE WO/W IVCON CLINICAL HISTORY: Syncope with head/neck pressure TECHNIQUE: Routine brain MRI protocol without and with contrast including diffusion images. Routine cervical spine MR protocol without gadolinium. MQ: MRCSPWO_3 MQ: MRBWOW_2 Contrast: 7.5 mL Elucirem IV COMPARISON: Pituitary MRI 09/12/2024 RESULT: Acute Change: There is no evidence of restricted diffusion to suggest an acute infarct. Hemorrhage: No evidence of prior parenchymal hemorrhage on the susceptibility weighted images. Mass Lesion/ Mass Effect: No evidence of an intracranial mass or extra-axial fluid collection. No abnormal parenchymal or leptomeningeal enhancement is noted following contrast administration. No significant mass effect. Chronic Change: The white matter is within normal limits of signal intensity for age. Parenchyma: No significant volume loss for age. The brain parenchyma is otherwise within normal limits of signal intensity and morphology. Ventricles: Normal caliber and morphology. Skull Base: Hypothalamic and pituitary region are grossly normal. Craniocervical junction is normal. No significant marrow replacement process. Vasculature: Major intracranial arterial structures, and dural venous sinuses show typical flow void, suggesting patency by spin echo criteria. Other: Mild RIGHT maxillary sinus mucosal thickening. The mastoid air cells are clear. The orbits and extracranial soft tissues are unremarkable. CERVICAL SPINE: Counting reference: Craniocervical junction. Anatomic Variants: None. Localizer images: Unremarkable. Alignment: Alignment is anatomic. Craniocervical junction: Craniocervical junction is normal. Cord: The visualized cord is within normal limits of signal intensity and morphology. Bone marrow signal/fracture: No evidence of pathologic marrow infiltration. No evidence of prior fracture. Cervical soft tissues: The paraspinal soft tissues are within normal limits. C2-C3: Canal and foramina are patent. C3-C4: Canal and foramina are patent. C4-C5: Canal and foramina are patent. C5-C6: Canal and foramina are patent. C6-C7: Canal and foramina are patent. C7-T1: Canal and foramina are patent. Abnormal enhancement: None IMPRESSION: Normal contrast-enhanced MRI of the brain and cervical spine. Anatomic Variant: None. Assume 7 cervical vertebrae with counting from the craniocervical junction. Pocket Secretary Assembler: GENE Transcribe Date/Time: Oct 10 2024 10:15A Dictated by : TESS THOMPSON, This examination was interpreted and the report reviewed and electronically signed by: TESS THOMPSON, on Oct 10 2024 10:22AM EST [id number] [facility] MRI CERVICAL SPINE WO/W IVCO Non 10-10-2024 MRI CERVICAL SPINE WO/W IVCON * * *Final Report* * * DATE OF EXAM: Oct 10 2024 10:07AM [facility] 0298 - MRI CERVICAL SPINE WO/W IVCON / PROCEDURE REASON: Multiple sclerosis, baseline * * * * Physician Interpretation * * * * EXAMINATION: MRI BRAIN WO/W IVCON, MRI CERVICAL SPINE WO/W IVCON CLINICAL HISTORY: Syncope with head/neck pressure TECHNIQUE: Routine brain MRI protocol without and with contrast including diffusion images. Routine cervical spine MR protocol without gadolinium. MQ: MRCSPWO_3 MQ: MRBWOW_2 Contrast: 7.5 mL Elucirem IV COMPARISON: Pituitary MRI 09/12/2024 RESULT: Acute Change: There is no evidence of restricted diffusion to suggest an acute infarct. Hemorrhage: No evidence of prior parenchymal hemorrhage on the susceptibility weighted images. Mass Lesion/ Mass Effect: No evidence of an intracranial mass or extra-axial fluid collection. No abnormal parenchymal or leptomeningeal enhancement is noted following contrast administration. No significant mass effect. Chronic Change: The white matter is within normal limits of signal intensity for age. Parenchyma: No significant volume loss for age. The brain parenchyma is otherwise within normal limits of signal intensity and morphology. Ventricles: Normal caliber and morphology. Skull Base: Hypothalamic and pituitary region are grossly normal. Craniocervical junction is normal. No significant marrow replacement process. Vasculature: Major intracranial arterial structures, and dural venous sinuses show typical flow void, suggesting patency by spin echo criteria. Other: Mild RIGHT maxillary sinus mucosal thickening. The mastoid air cells are clear. The orbits and extracranial soft tissues are unremarkable. CERVICAL SPINE: Counting reference: Craniocervical junction. Anatomic Variants: None. Localizer images: Unremarkable. Alignment: Alignment is anatomic. Craniocervical junction: Craniocervical junction is normal. Cord: The visualized cord is within normal limits of signal intensity and morphology. Bone marrow signal/fracture: No evidence of pathologic marrow infiltration. No evidence of prior fracture. Cervical soft tissues: The paraspinal soft tissues are within normal limits. C2-C3: Canal and foramina are patent. C3-C4: Canal and foramina are patent. C4-C5: Canal and foramina are patent. C5-C6: Canal and foramina are patent. C6-C7: Canal and foramina are patent. C7-T1: Canal and foramina are patent. Abnormal enhancement: None IMPRESSION: Normal contrast-enhanced MRI of the brain and cervical spine. Anatomic Variant: None. Assume 7 cervical vertebrae with counting from the craniocervical junction. Pocket Secretary Assembler: GENE Transcribe Date/Time: Oct 10 2024 10:15A Dictated by : TESS THOMPSON, This examination was interpreted and the report reviewed and electronically signed by: TESS THOMPSON, on Oct 10 2024 10:22AM EST [id number] Normal [facility] TSH W/REFLEX FT4on TSH Qn 1.830 m[IU]/L Normal 0.270-4.200 [facility] Comment on above: Order Comment: Speci men Type: BLOOD SPECIMEN Ordering Facility: [facility] Address: [address] [place] [address] [place] [address] Result Comment: If t he patient is , TSH reference range varies by gestational period: First Trimester (weeks 9-12): 0.180-2.990 mIU/L Second Trimester: 0.110-3.980 mIU/L Third Trimester: 0.480-4.710 mIU/L Santos Davila et al. A Practical Approach for the Verifications and Determination of Site- and Trimester-Specific Reference Intervals for Thyroid Function tests in . Thyroid, 2019:29:3:412-420. Gilberto Norman, et al. 2017 Guidelines of the [place] [employer] for the Diagnosis and Management of Thyroid Disease during and the . Thyroid, 2017:27:3:315-389. Performed By: #### 2 4323-8, 06450-6, [id number], 3016-3 #### [facility] CLIA [id number] [address] [place] [address] [place] Vit B12 SerPl-ncon 025 Cobalamin (Vitamin B12) [Mass/Vol] 532 pg/mL Normal 232-1245 [facility] Comment on above: Order Comment: Speci katherine Type: BLOOD SPECIMEN Ordering Facility: [facility] Address: [address] [place] [address] Performed By: #### 2 4323-8, 81498-6, CAO3218, 3016-3 #### [facility] CLIA [id number] [address] [place] [address] [place] ALLIED HEALTHon 10-09-2024 ALLIED HEALTH HNO ID: [id number] Author: DAVID MURPHY CT Service: Radiology Author Type: Technologist Type: Allied Health Filed: 10/09/2024 12:41 Note Text: Radiology Service Progress Note PATIENT NAME: Dulce Maria Carty DATE OF SERVICE: October 09, 2024 TIME: 12:41 PM PATIENT IDENTITY VERIFICATION COMPLETED USING TWO (2) IDENTIFIERS: Name and Date of confirmed by patient verbally and Name and Date of confirmed by identification band. FALL SCREENING: Has the patient had 2 falls in the last year or 1 fall with injury or currently using an Ambulatory Assistive Device (Walker, Cane, Wheelchair, Crutches, etc.)? Emergency Room Patient: Screened in ED PATIENT GENDER DATA: Assigned female at . status: : No status: NO. PATIENT RELEVANT IMPLANT DATA REVIEWED: Not Applicable PATIENT PRESENTS WITH AN IMPLANTABLE OR ATTACHED CARPET OR RUG LAYER HELPER: No RADIOLOGY DEPARTMENT: CT; Exam(s) Completed: Abdomen/Pelvis . Anesthesia: No PERIPHERAL IV DATA: Inpatient: see LDA documentation SIGNED BY: SAMANTA Lange October 09, 2024 12:41 PM Normal [facility] B. burgdorferi IgG and IgM p bushra (S)on 10-09-2024 B. burgdorferi IgG+IgM Qn (S) Negative Normal Negative [facility] Comment on above: Order Comment: Speci katherine Type: BLOOD SPECIMEN Ordering Facility: [facility] Address: [address] [place] [address] Result Comment: Rece nt infection with B. burgdorferi sensu lato cannot be excluded if the specimen collected within four weeks after the onset of signs and symptoms or within six weeks after a known tick exposure. Clinical and epidemiological correlation is required. Performed By: #### 2 4323-8, 39588-7, [id number], 3016-3 #### [facility] CLIA [id number] [address] [place] [address] [place] CBC W Auto Differential pane l (Bld)on 10-09-2024 Basophils (Bld) [#/Vol] 0.03 10*3/uL Normal <0.11 [facility] Comment on above: Order Comment: Speci men Type: BLOOD SPECIMEN Ordering Facility: [facility] Address: [address] [place] [address] Performed By: #### 5 7021-8 #### [facility] CLIA [id number] [address] Basophils/100 WBC (Bld) 0.5 % Normal [facility] Comment on above: Order Comment: Speci men Type: BLOOD SPECIMEN Ordering Facility: [facility] Address: [address] [place] [address] Performed By: #### 5 7021-8 #### [facility] CLIA [id number] [address] Differential cell count method Nom (Bld) Auto Normal [facility] Comment on above: Order Comment: Speci men Type: BLOOD SPECIMEN Ordering Facility: [facility] Address: [facility] [place] [address] Performed By: #### 5 7021-8 #### [facility] CLIA [id number] [address] Eosinophils (Bld) [#/Vol] 10*3/uL Normal <0.46 [facility] Comment on above: Order Comment: Speci men Type: BLOOD SPECIMEN Ordering Facility: [facility] Address: [address] [place] [address] Performed By: #### 5 7021-8 #### [facility] CLIA [id number] [address] Eosinophils/100 WBC (Bld) 0.3 % Normal [facility] Comment on above: Order Comment: Speci men Type: BLOOD SPECIMEN Ordering Facility: [facility] Address: [facility] [place] [address] Performed By: #### 5 7021-8 #### [facility] CLIA [id number] [address] [place] [address] [place] Erythrocyte distribution width (RBC) [Ratio] 12.1 % Normal 11.5-15.0 [facility] Comment on above: Order Comment: Speci men Type: BLOOD SPECIMEN Ordering Facility: [facility] Address: [address] [place] [address] Performed By: #### 5 7021-8 #### [facility] CLIA [id number] [address] Hematocrit (Bld) [Volume fraction] 42.0 % Normal 36.0-46.0 [facility] Comment on above: Order Comment: Speci men Type: BLOOD SPECIMEN Ordering Facility: [facility] Address: [address] [place] [address] Performed By: #### 5 7021-8 #### [facility] CLIA [id number] [address] [place] [address] [place] Hemoglobin (Bld) [Mass/Vol] 13.9 g/dL Normal 11.5-15.5 [facility] Comment on above: Order Comment: Speci men Type: BLOOD SPECIMEN Ordering Facility: [facility] Address: [address] [place] [address] Performed By: #### 5 7021-8 #### [facility] CLIA [id number] [address] [place] Immature granulocytes (Bld) [#/Vol] 10*3/uL Normal <0.10 [facility] Comment on above: Order Comment: Speci men Type: BLOOD SPECIMEN Ordering Facility: [facility] Address: [address] [place] [address] Performed By: #### 5 7021-8 #### [facility] CLIA [id number] [address] [place] Immature granulocytes/100 WBC (Bld) 0.2 % Normal [facility] Comment on above: Order Comment: Speci men Type: BLOOD SPECIMEN Ordering Facility: [facility] Address: [address] [place] [address] Performed By: #### 5 7021-8 #### [facility] CLIA [id number] [address] [place] Lymphocytes (Bld) [#/Vol] 0.95 10*3/uL Low 1.00-4.00 [facility] Comment on above: Order Comment: Speci men Type: BLOOD SPECIMEN Ordering Facility: [facility] Address: [address] [place] [address] Performed By: #### 5 7021-8 #### [facility] CLIA [id number] [address] Lymphocytes/100 WBC (Bld) 15.4 % Normal [facility] Comment on above: Order Comment: Speci men Type: BLOOD SPECIMEN Ordering Facility: [facility] Address: [address] [place] [address] Performed By: #### 5 7021-8 #### [facility] CLIA [id number] [address] MCH (RBC) [Entitic mass] 28.1 pg Normal 26.0-34.0 [facility] Comment on above: Order Comment: Speci men Type: BLOOD SPECIMEN Ordering Facility: [facility] Address: [address] [place] [address] Performed By: #### 5 7021-8 #### [facility] CLIA [id number] [address] [place] MCHC (RBC) [Mass/Vol] 33.1 g/dL Normal 30.5-36.0 [facility] Comment on above: Order Comment: Speci men Type: BLOOD SPECIMEN Ordering Facility[facility] Address: [address] [place] [address] Performed By: #### 5 7021-8 #### [facility] CLIA [id number] [address] [place] MCV (RBC) [Entitic vol] 85.0 fL Normal 80.0-100.0 [facility] Comment on above: Order Comment: Speci men Type: BLOOD SPECIMEN Ordering Facility: [facility] Address: [facility] [place] [address] Performed By: #### 5 7021-8 #### [facility] CLIA [id number] [address] [place] [address] [place] Monocytes (Bld) [#/Vol] 0.26 10*3/uL Normal <0.87 [facility] Comment on above: Order Comment: Speci men Type: BLOOD SPECIMEN Ordering Facility: [facility] Address: [address] [place] [address] Performed By: #### 5 7021-8 #### [facility] CLIA [id number] [address] [place] Monocytes/100 WBC (Bld) 4.2 % Normal [facility] Comment on above: Order Comment: Speci men Type: BLOOD SPECIMEN Ordering Facility: [facility] Address: [address] [place] [address] Performed By: #### 5 7021-8 #### [facility] CLIA [id number] [address] [place] [address] [place] Neutrophils (Bld) [#/Vol] 4.88 10*3/uL Normal 1.45-7.50 [facility] Comment on above: Order Comment: Speci men Type: BLOOD SPECIMEN Ordering Facility: [facility] Address: [address] [place] [address] Performed By: #### 5 7021-8 #### [facility] CLIA [id number] [address] [place] [address] [place] Neutrophils/100 WBC (Bld) 79.4 % Normal [facility] Comment on above: Order Comment: Speci men Type: BLOOD SPECIMEN Ordering Facility: [facility] Address: [address] [place] [address] Performed By: #### 5 7021-8 #### [facility] CLIA [id number] [address] [place] [address] [place] Nucleated RBC (Bld) [#/Vol] 10*3/uL Normal <0.01 [facility] Comment on above: Order Comment: Speci men Type: BLOOD SPECIMEN Ordering Facility: [facility] Address: [address] [place] [address] Performed By: #### 5 7021-8 #### [facility] CLIA [id number] [address] [place] Nucleated RBC/100 WBC (Bld) [Ratio] 0.0 /100 WBC Normal [facility] Comment on above: Order Comment: Speci men Type: BLOOD SPECIMEN Ordering Facility: [facility] Address: [address] [place] [address] Performed By: #### 5 7021-8 #### [facility] CLIA [id number] [address] Platelet mean volume (Bld) [Entitic vol] 10.2 fL Normal 9.0-12.7 [facility] Comment on above: Order Comment: Speci men Type: BLOOD SPECIMEN Ordering Facility: [facility] Address: [address] [place] [address] Performed By: #### 5 7021-8 #### [facility] CLIA [id number] [address] [place] Platelets (Bld) [#/Vol] 188 10*3/uL Normal 150-400 [facility] Comment on above: Order Comment: Speci men Type: BLOOD SPECIMEN Ordering Facility: [facility] Address: [address] [place] [address] Performed By: #### 5 7021-8 #### [facility] CLIA [id number] [address] [place] RBC (Bld) [#/Vol] 4.94 10*6/uL Normal 3.90-5.20 [facility] Comment on above: Order Comment: Speci men Type: BLOOD SPECIMEN Ordering Facility[facility] Address: [address] [place] [address] Performed By: #### 5 7021-8 #### [facility] CLIA [id number] [address] [place] WBC (Bld) [#/Vol] 6.15 10*3/uL Normal 3.70-11.00 [facility] Comment on above: Order Comment: Speci men Type: BLOOD SPECIMEN Order[facility] Facility[facility] Address: [address] [place] [address] Performed By: #### 5 7021-8 #### [facility] CLIA [id number] [address] [place] CRP SerPl-mCncon 10-09-2024 CRP [Mass/Vol] mg/L Normal <0.9 [facility] Comment on above: Order Comment: Speci men Type: BLOOD SPECIMEN Ordering Facility[facility] Address: [address] [place] [address] Performed By: #### 2 4323-8, 01182-6, PER3153, 3016-3 #### [facility] CLIA [id number] [address] [place] CT ABD/PEL W IVCONon 025 CT ABD/PEL W IVCON * * *Final Report* * * DATE OF EXAM: Oct 09 2024 12:41PM [facility] [place]BD/PEL W IVCON / PROCEDURE REASON: Nausea/vomiting * * * * Physician Interpretation * * * * EXAMINATION: CT ABDOMEN AND PELVIS WITH IV CONTRAST CLINICAL HISTORY: 28 years old Female with Nausea/vomiting. Review of electronic medical record states:Abdominal Pain: PT presents to the ED from home via EMS. Pt complaint of ABD pain that has been present for multiple days. PT has been in seen in the ED multiple times over the last 5 days. PT states it feels like a fullness or like there is air in her abdomen. PT was seen last evening for multiple concerns that were ruled out. PT has no other complaints at this time. TECHNIQUE: CT of the abdomen and pelvis was performed using standard technique, scanning from just above the dome of the diaphragm to the symphysis pubis. MQ: CTAP_3 Contrast: IV: 100 ml of Omnipaque 350 Oral: None. CT Radiation dose: Integrated Dose-length product (DLP) for this visit = 239 mGy*cm. CT Dose Reduction Employed: Automated exposure control(AEC) and iterative recon COMPARISON: None. RESULT: Liver: No mass. Biliary: No bile duct dilation. Gallbladder is unremarkable. Spleen: No mass. No splenomegaly. Pancreas: No mass or duct dilation. Adrenals: No mass. Kidneys: No mass, calculus or hydronephrosis. Duplicated LEFT collecting system. GI tract: No dilation. No apparent wall thickening noting that evaluation for wall thickening is limited due to bowel underdistention. Appendix is not visualized; no secondary signs of appendicitis. Lymph nodes: No abdominal or pelvic lymphadenopathy. Mesentery/Peritoneum: No ascites or mass. Retroperitoneum: No mass. Vasculature: - Abdominal aorta and iliac arteries: Patent and normal caliber. - Celiac and SMA: Patent without stenosis. - Portal venous system (SMV, splenic vein, portal vein and branches): Patent. - Hepatic veins: Patent. Pelvis: No mass, ascites or fluid collection. Retroverted uterus. Bones/Soft Tissues: Disc protrusion at L4-L5. Small area of fat stranding with tiny foci of gas in the LEFT flank subcutaneous fat (2:56-62, 601:64-70), nonspecific and possibly posttraumatic. Lower thorax: Unremarkable. Localizer images: No additional findings. IMPRESSION: No acute process in the abdomen or pelvis. Small area of fat stranding with tiny foci of gas in the LEFT flank subcutaneous fat, nonspecific and possibly posttraumatic. Pocket Secretary Assembler: GENE Transcribe Date/Time: Oct 09 2024 12:49P Dictated by : DARIANA SOSA DO This examination was interpreted and the report reviewed and electronically signed by: DARIANA SOSA DO on Oct 09 2024 1:13PM EST [id number] Normal [facility] Comprehensive metabolic 2000 panelon 10-09-2024 Albumin [Mass/Vol] 4.5 g/dL Normal 3.9-4.9 [facility] Comment on above: Order Comment: Speci men Type: BLOOD SPECIMEN [facility]ing Facility: [facility] Address: [address] [place] [address] Performed By: #### 5 7021-8 #### [facility] CLIA [id number] [address] [place] [address] [place] ALP [Catalytic activity/Vol] 63 U/L Normal 34-123 [facility] Comment on above: Order Comment: Speci men Type: BLOOD SPECIMEN Ordering Facility: [facility] Address: [address] [place] [address] Performed By: #### 5 7021-8 #### [facility] CLIA [id number] [address] [place] [address] [place] ALT [Catalytic activity/Vol] 12 U/L Normal 7-38 [facility] Comment on above: Order Comment: Speci men Type: BLOOD SPECIMEN Ordering Facility: [facility] Address: [address] [place] [address] Performed By: #### 5 7021-8 #### [facility] CLIA [id number] [address] [place] [address] [place] Anion gap [Moles/Vol] 10 mmol/L Normal 8-15 [facility] Comment on above: Order Comment: Speci men Type: BLOOD SPECIMEN Ordering Facility: [facility] Address: [address] [place] [address] Performed By: #### 5 7021-8 #### [facility] CLIA [id number] [address] [place] [address] [place] AST [Catalytic activity/Vol] 10 U/L Low 13-35 [facility] Comment on above: Order Comment: Speci men Type: BLOOD SPECIMEN [facility]ing Facility: [facility] Address: [address] [place] [address] Performed By: #### 5 7021-8 #### [facility] CLIA [id number] [address] [place] [address] [place] Bilirubin [Mass/Vol] 0.6 mg/dL Normal 0.2-1.3 [facility] Comment on above: Order Comment: Speci men Type: BLOOD SPECIMEN [facility]ing Facility: [facility] Address: [address] [place] [address] Performed By: #### 5 7021-8 #### [facility] CLIA [id number] [address] [place] Calcium [Mass/Vol] 9.2 mg/dL Normal 8.5-10.2 [facility] Comment on above: Order Comment: Speci men Type: BLOOD SPECIMEN [facility]ing Facility[facility] Address: [address] [place] [address] Performed By: #### 5 7021-8 #### [facility] CLIA [id number] [address] STATES [facility] Chloride [Moles/Vol] 106 mmol/L Normal 98-107 [facility] Comment on above: Order Comment: Speci men Type: BLOOD SPECIMEN [facility] Address: [address] [place] [address] Performed By: #### 5 7021-8 #### [facility] CLIA [id number] [address] [place] [address] [place] CO2 [Moles/Vol] 25 mmol/L Normal 22-30 [facility] Comment on above: Order Comment: Speci men Type: BLOOD SPECIMEN [facility] Address: [address] [place] [address] Performed By: #### 5 7021-8 #### [facility] CLIA [id number] [address] STATES [facility] Creatinine [Mass/Vol] 0.80 mg/dL Normal 0.58-0.96 [facility] Comment on above: Order Comment: Speci men Type: BLOOD SPECIMEN [facility] Address: [address] [place] [address] Performed By: #### 5 7021-8 #### [facility] CLIA [id number] [address] [place] eGFRcr SerPlBld CKD-EPI 2020 102 mL/min/1.73m??? Normal >=60 [facility] Comment on above: Order Comment: Speci men Type: BLOOD SPECIMEN Ordering Facility: [facility] Address: [address] [place] [address] Result Comment: Kimberly mated Glomerular Filtration Rate (eGFR) is calculated using the 2020 CKD-EPI creatinine equation. This equation utilizes serum creatinine, sex, and age as parameters. The creatinine assay has traceable calibration to isotope dilution-mass spectrometry. Refer to KDIGO guidelines for clinical interpretation. In patients with unstable renal function, e.g. those with acute kidney injury, the eGFR may not accurately reflect actual GFR. Performed By: #### 5 7021-8 #### [facility] CLIA [id number] [address] [place] [address] [place] Glucose [Mass/Vol] 110 mg/dL High 74-99 [facility] Comment on above: Order Comment: Leandro murphy Type: BLOOD SPECIMEN Ordering Facility: [facility] Address: [address] [place] [address] Result Comment: The [place] Diabetes Association (ADA) provides guidance for cutoff values for fasting glucose and random glucose. The ADA defines fasting as no caloric intake for at least 8 hours. Fasting plasma glucose results between 100 to 125 mg/dL indicate increased risk for diabetes (prediabetes). Fasting plasma glucose results greater than or equal to 126 mg/dL meet the criteria for diagnosis of diabetes. In the absence of unequivocal hyperglycemia, results should be confirmed by repeat testing. In a patient with classic symptoms of hyperglycemia or hyperglycemic crisis, random plasma glucose results greater than or equal to 200 mg/dL meet the criteria for diagnosis of diabetes. Reference: Standards of Medical Care in Diabetes 2016, [place] [employer] Association. Diabetes Care. 2016.39(Suppl 1). Performed By: #### 5 7021-8 #### [facility] CLIA [id number] [address] [place] [address] [place] Potassium [Moles/Vol] 4.1 mmol/L Normal 3.7-5.1 [facility] Comment on above: Order Comment: Leandro murphy Type: BLOOD SPECIMEN [facility] Address: [address] [place] [address] Performed By: #### 5 7021-8 #### [facility] CLIA [id number] [address] [place] [address] [place] Protein [Mass/Vol] 7.0 g/dL Normal 6.3-8.0 [facility] Comment on above: Order Comment: Leandro murphy Type: BLOOD SPECIMEN [facility] Address: [address] [place] [address] Performed By: #### 5 7021-8 #### [facility] CLIA [id number] [address] [place] [address] [place] Sodium [Moles/Vol] 141 mmol/L Normal 136-144 [facility] Comment on above: Order Comment: Speci men Type: BLOOD SPECIMEN Ordering Facility: [facility] Address: [address] [id number] Performed By: #### 5 7021-8 #### [facility] CLIA [id number] [address] [place] [address] [facility] Urea nitrogen [Mass/Vol] 13 mg/dL Normal 7-21 [facility] Comment on above: Order Comment: Speci men Type: BLOOD SPECIMEN Ordering Facility: [facility] Address: [address] [id number] Performed By: #### 5 7021-8 #### [facility] CLIA [id number] [address] ED NOTEon 10-09-2024 ED NOTE HNO ID: [id number] Author: MADELIN KHAN RN Service: Nursing Author Type: Registered Nurse Type: ED Notes Filed: 10/09/2024 15:18 Note Text: Placing transport for this patient. [facility] ED NOTE HNO ID: [id number] Author: FABIAN CARBAJAL RN Service: ? Author Type: Registered Nurse Type: ED Notes Filed: 10/09/2024 15:03 Note Text: 4S charge nurse called to advise of second heads up. [facility] ED NOTE HNO ID: [id number] Author: MADELIN KHAN RN Service: Nursing Author Type: Registered Nurse Type: ED Notes Filed: 10/09/2024 11:51 Note Text: Placed on con't monitoring after patient describes episodes of feeling panic and heart racing over the past few days. [facility] ED NOTE HNO ID: [id number] Author: MADELIN KHAN RN Service: Nursing Author Type: Registered Nurse Type: ED Notes Filed: 10/09/2024 11:46 Note Text: Dr. Hernandez at . [facility] ED NOTE HNO ID: [id number] Author: MADELIN KHAN, GEREMIAS Service: Nursing Author Type: Registered Nurse Type: ED Notes Filed: 10/09/2024 11:39 Note Text: Up to bathroom. [facility] ED PROV NOTEon 10-09-2024 ED PROV NOTE HNO ID: [id number] Author: SHANI HERNANDEZ MD Service: ? Author Type: Physician Type: ED Provider Notes Filed: 10/09/2024 13:42 Note Text: ED Provider Note Patient Name: Dulce Maria Carty : 1995 SERVICE DATE: 10/09/24 History Patient presents with: Abdominal Pain: PT presents to the ED from home via EMS. Pt complaint of ABD pain that has been present for multiple days. PT has been in seen in the ED multiple times over the last 5 days. PT states it feels like a fullness or like there is air in her abdomen. PT was seen last evening for multiple concerns that were ruled out. PT has no other complaints at this time. Patient presenting for evaluation secondary to recurrent episodes of palpitations lightheadedness near syncope head fullness and abdominal pain. Patient states that for a little over a week now she has been having these recurrent episodes where she feels fullness in her head, feels that her heart is racing, and feels presyncopal as if she can pass out. When the episodes happen she states that occasionally her vision will do them. She states that initially it was associated mainly with palpitations in her chest, but now seems to be associated with a feeling of fullness in her upper abdomen. Patient's been seen in the emergency department a couple times for this, has had a negative brain CT, CT angiogram of the chest, blood work, and EKG. Patient states that the symptoms are continuing to recur, and are maybe even lasting longer than they had initially. She is not on any prescription medications other than she recently was started on a beta-yeyo by her PCP in response to these episodes. She denies any history of thyroid disease. She denies any stimulant use. She denies any tick bites. No prior similar episodes in the past. She was seen by her PCP today who recommended hospitalization. No past medical history on file. PAST SURGICAL HISTORY Procedure Laterality Date BREAST LUMPECTOMY HX 08/2024 COLONOSCOPY 03/2024 TONSILLECTOMY AND ADENOIDECTOMY FAMILY HISTORY Problem Relation Age of Onset Colon Cancer Maternal Grandmother Social History[1] ALLERGIES Allergen Reactions Alprazolam Unknown Quetiapine Fumarate Unknown Review of Systems Constitutional: Negative for activity change and fever. HENT: Negative for rhinorrhea and sore throat. Eyes: Positive for visual disturbance. Respiratory: Negative for cough and shortness of breath. Cardiovascular: Positive for palpitations. Negative for chest pain. Gastrointestinal: Positive for abdominal pain. Negative for diarrhea, nausea and vomiting. Genitourinary: Negative for dysuria. Musculoskeletal: Negative for myalgias. Skin: Negative for rash. Neurological: Positive for dizziness, light-headedness and headaches. Negative for weakness and numbness. Psychiatric/Behavioral: Negative for self-injury. Physical Exam Vitals [10/09/24 1029] BP Pulse Temp Temp src Resp SpO2 Weight Height 132/79 (!) 102 36.9 ?C (98.5 ?F) Oral 18 100 % 73.9 kg (163 lb) -- Physical Exam Vitals and nursing note reviewed. Constitutional: General: She is not in acute distress. Appearance: Normal appearance. She is well-developed. HENT: Head: Normocephalic and atraumatic. Nose: Nose normal. Mouth/Throat: Mouth: Mucous membranes are moist. Eyes: Conjunctiva/sclera: Conjunctivae normal. Pupils: Pupils are equal, round, and reactive to light. Cardiovascular: Rate and Rhythm: Normal rate and regular rhythm. Heart sounds: Normal heart sounds. Comments: Radial pulses 2+ bilaterally Pulmonary: Effort: Pulmonary effort is normal. No respiratory distress. Breath sounds: Normal breath sounds. Abdominal: General: Bowel sounds are normal. There is no distension. Palpations: Abdomen is soft. Tenderness: There is no abdominal tenderness. Musculoskeletal: General: No tenderness. Normal range of motion. Cervical back: Normal range of motion and neck supple. Lymphadenopathy: Cervical: No cervical adenopathy. Skin: General: Skin is warm and dry. Capillary Refill: Capillary refill takes less than 2 seconds. Findings: No rash. Neurological: Mental Status: She is alert and oriented to person, place, and time. GCS: GCS eye subscore is 4. GCS verbal subscore is 5. GCS motor subscore is 6. Sensory: No sensory deficit. Motor: No weakness. Psychiatric: Mood and Affect: Mood normal. Diagnostic Testing ED Labs Ordered and Reviewed COMPLETE BLOOD COUNT AND DIFFERENTIAL - Abnormal; Notable for the following components: Result Value Ref Range Abs Lymph 0.95 (*) 1.00 - 4.00 k/uL All other components within normal limits COMPREHENSIVE METABOLIC PANEL - Abnormal; Notable for the following components: AST 10 (*) 13 - 35 U/L Glucose 110 (*) 74 - 99 mg/dL All other components within normal limits URINALYSIS (WITH MICROSCOPIC) WITH CULTURE IF INDICATED - Abnormal; Notable for the (more content not included)... Normal [facility] ED Triage Noteon 10-09-2024 ED Triage Note HNO ID: [id number] Author: TING RINCON DO Service: Emergency Medicine Author Type: Physician Type: ED Triage Notes Filed: 10/09/2024 10:35 Note Text: ED INTAKE NOTE Patient Name: Dulce Maria Carty Service Date: 10/09/24 BRIEF HPI: This is a 28 year old female who presents to the ED with: brought in via ems, + bloating/distenstion, pcp sent her back in for a ct ab, ?mri of head + bloating feeling, and pressure in head, + dizzy, hearing problems/feeling faint, + weakness + chest pain BRIEF EXAM: NAD Awake and Alert Non labored breathing INITIAL WORKUP AND DECISION MAKING: Orders Placed This Encounter XR CHEST 2V FRONTAL/LAT CT ABD/PEL W IVCON CBC w Diff CMP Lipase Urine w microscopic, relfex culture HCG, Qualitative, Urine High Sensitivity Troponin T with Reflex for ED Chest Pain iv contrast (radiology procedure) Provider examination performed via virtual platform with assistance from bedside clinician. SIGNATURE: Ting Rincon DO Normal [facility] ESR Westergren method (Bld) [Velocity]on 10-09-2024 ESR (Bld) [Velocity] 2 mm/h Normal 0-20 [facility] Comment on above: Order Comment: Speci men Type: BLOOD SPECIMEN [facility] Address: [address] [place] [address] Performed By: #### 2 4323-8, 01176-6, [id number], 3016-3 #### [facility] CLIA [id number] [address] [place] [address] [place] HCG Preg Ur Qlon 10-09-2024 HCG ( test) Ql (U) Negative Normal Negative [facility] Comment on above: Order Comment: Speci men Type: URINE SPECIMEN Ordering Facility[facility] Address: [address] [place] [address] Result Comment: This test is intended to aid in the early detection of . Very dilute urine samples, as indicated by a low specific gravity, may not contain inventory representative levels of hCG. This test detects intact hCG only. This test does not reliably detect hCG degradation products, including free-beta subunit and beta-core fragment. Therefore, this test may show reduced reactivity in urine after 8 weeks gestation. A number of conditions other than , including trophoblastic disease and certain non-trophoblastic neoplasms cause elevated levels of hCG. As with any assay employing mouse antibodies, the possibility exists for interference by human anti-mouse antibodies (HAMA) in the specimen. The test provides a presumptive diagnosis for . Performed By: #### 2 106-3 #### [facility] CLIA [id number] [address] [place] HIGH SENSITIVITY TROPONIN T (INITIAL)on 10-09-2024 Troponin T.cardiac High sensitivity method [Mass/Vol] <6 Normal <12 [facility] Comment on above: Order Comment: Leandro murphy Type: BLOOD SPECIMEN [facility] Address: [address] [place] [address] Performed By: #### 2 4323-8, 89106-0, [id number], 3016-3 #### [facility] CLIA [id number] [address] STATES OF [facility] HIGH SENSITIVITY TROPONIN T (SECOND)on 10-09-2024 Troponin T.cardiac High sensitivity method [Mass/Vol] <6 Normal <12 [facility] Comment on above: Order Comment: Leandro murphy Type: BLOOD SPECIMEN [facility] Address: [address] [place] [address] Performed By: #### 2 4323-8, 87136-8, [id number], 3016-3 #### [facility] CLIA [id number] [address] [place] [address] [place] Lipase SerPl-cCncon 10-10-19 25 Lipase [Catalytic activity/Vol] 21 U/L Normal 16-61 [facility] Comment on above: Order Comment: Leandro murphy Type: BLOOD SPECIMEN [facility] Address: [address] [id number] Performed By: #### 2 4323-8, 96590-5, [id number], 3016-3 #### [facility] CLIA [id number] [address] [id number] [facility] Magnesium SerPl-mCncon 10-09 Magnesium [Mass/Vol] 1.9 mg/dL Normal 1.7-2.3 [facility] Comment on above: Order Comment: Speci men Type: BLOOD SPECIMEN [facility] Address: [address] [place], [place] [address] Performed By: #### 2 4323-8, 49913-5, PSH1565, 3016-3 #### [facility] CLIA [id number] [address] NURSING PROGon 10-09-2024 NURSING PROG HNO ID: [id number] Author: STEVEN NEWTON RN Service: Nursing Author Type: Registered Nurse Type: Nursing Progress Note Filed: 10/09/2024 16:10 Note Text: Other: [address] Adler with pt. reporting that her primary mentioned about MRI of the brain with contrast with MD report going to review. Normal [facility] TSH SerPl-aCncon 10-09-2024 TSH Qn 0.819 m[IU]/L Normal 0.270-4.200 [facility] Comment on above: Order Comment: Speci katherine Type: BLOOD SPECIMEN [facility] Address: [address] [place], [place] [address] Result Comment: If t he patient is , TSH reference range varies by gestational period: First Trimester (weeks 9-12): 0.180-2.990 mIU/L Second Trimester: 0.110-3.980 mIU/L Third Trimester: 0.480-4.710 mIU/L Santos Davila et al. A Practical Approach for the Verifications and Determination of Site- and Trimester-Specific Reference Intervals for Thyroid Function tests in . Thyroid, 2019:29:3:412-420. Gilberto E, et al. 2017 Guidelines of the [place] Thyroid Association for the Diagnosis and Management of Thyroid Disease during and the . Thyroid, 2017:27:3:315-389. Performed By: #### 2 4323-8, 24741-7, OSL7350, 3016-3 #### [facility] CLIA [id number] [address] [place] [address] [place] Urinalysis complete panel (U )on 10-09-2024 Bilirubin Ql (U) Negative Normal Negative [facility] Comment on above: Order Comment: Speci men Type: BLOOD SPECIMEN [facility] Address: [address] [place] [address] Performed By: #### 2 4323-8, 62367-7, [id number], 3016-3 #### [facility] CLIA [id number] [address] Clarity (Unsp spec) Clear Normal Clear [facility] Comment on above: Order Comment: Speci men Type: BLOOD SPECIMEN [facility] Address: [address] [place] [address] Performed By: #### 2 4323-8, 90558-8, [id number], 3016-3 #### [facility] CLIA [id number] [address] Color (U) Yellow Normal Yellow [facility] Comment on above: Order Comment: Speci men Type: BLOOD SPECIMEN [facility] Address: [address] [place] [address] Performed By: #### 2 4323-8, 23521-6, [id number], 3016-3 #### [facility] CLIA [id number] [address] [place] Epithelial cells LM.HPF (Urine sed) [#/Area] Few Normal [facility] Comment on above: Order Comment: Speci men Type: BLOOD SPECIMEN [facility] Address: [address] [place] [address] Performed By: #### 2 4323-8, 09608-4, [id number], 3016-3 #### [facility] CLIA [id number] [address] [place] Glucose Test strip (U) [Mass/Vol] Negative Normal Negative [facility] Comment on above: Order Comment: Speci men Type: BLOOD SPECIMEN [facility] Address: [address] [id number] Performed By: #### 2 4323-8, 61834-9, [id number], 3016-3 #### [facility] CLIA [id number] [address] Hemoglobin Ql (U) Negative Normal Negative [facility] Comment on above: Order Comment: Speci men Type: BLOOD SPECIMEN [facility] Address: [address] [place] [address] Performed By: #### 2 4323-8, 77193-7, [id number], 3016-3 #### [facility] CLIA [id number] [address] Ketones Ql (U) Negative Normal Negative [facility] Comment on above: Order Comment: Speci men Type: BLOOD SPECIMEN [facility] Address: [address] [place] [address] Performed By: #### 2 4323-8, 04635-8, [id number], 3016-3 #### [facility] CLIA [id number] [address] Leukocyte esterase Test strip Ql (U) Negative Normal Negative [facility] Comment on above: Order Comment: Speci men Type: BLOOD SPECIMEN [facility] Address: [address] [place] [address] Performed By: #### 2 4323-8, 33900-2, [id number], 3016-3 #### [facility] CLIA [id number] [address] Nitrite Ql (U) Negative Normal Negative [facility] Comment on above: Order Comment: Speci men Type: BLOOD SPECIMEN [facility] Address: [address] [id number] Performed By: #### 2 4323-8, 05862-0, [id number], 3016-3 #### [facility] CLIA [id number] [address] [place] [address] [place] pH (U) 6.5 [pH] Normal 5.0-8.0 [facility] Comment on above: Order Comment: Speci men Type: BLOOD SPECIMEN [facility] Address: [address] [place] [address] Performed By: #### 2 4323-8, 49476-7, [id number], 3016-3 #### [facility] CLIA [id number] [address] [place] [address] [place] Protein (U) [Mass/Vol] Negative Normal Negative [facility] Comment on above: Order Comment: Speci men Type: BLOOD SPECIMEN [facility] Address: [address] [place] [address] Performed By: #### 2 4323-8, 58929-7, [id number], 3016-3 #### [facility] CLIA [id number] [address] [place] [address] [place] RBC LM.HPF (Urine sed) [#/Area] 0-3 /HPF Normal 0-3 /HPF [facility] Comment on above: Order Comment: Speci men Type: BLOOD SPECIMEN [facility] Address: [address] [place] [address] Performed By: #### 2 4323-8, 96495-4, [id number], 3016-3 #### [facility] CLIA [id number] [address] [place] [address] [place] Specific gravity (U) [Rel density] <=1.005 Low 1.005-1.030 [facility] Comment on above: Order Comment: Speci men Type: BLOOD SPECIMEN [facility] Address: [address] [place] [address] Performed By: #### 2 4323-8, 15452-6, [id number], 3016-3 #### [facility] CLIA [id number] [address] [place] [address] [place] Urobilinogen Ql (U) 0.2 EU/dL Normal 0.2-1.0 EU/dL [facility] Comment on above: Order Comment: Specleidy murphy Type: BLOOD SPECIMEN [facility] Address: [address] [place], [place] [address] Performed By: #### 2 4323-8, 60067-1, [id number], 3016-3 #### [facility] [facility] CLIA [id number] [address] [place] [address] [place] WBC LM.HPF (Urine sed) [#/Area] 0-5 /HPF Normal 0-5 /HPF [facility] Comment on above: Order Comment: Speci men Type: BLOOD SPECIMEN [facility]ing Facility: [facility] Address: [address] [place], [place] [address] Performed By: #### 2 4323-8, 40452-4, [id number], 3016-3 #### [facility] CLIA [id number] [address] [place] [address] [place] 36on 10-08-2024 36 [facility] 10-08-2024 [facility] HNO ID: [id number] Author: SONYA ALVARZE RT(R) Service: Radiology Author Type: Technologist Type: Allied Health Filed: 10/08/2024 20:30 Note Text: Radiology Service Progress Note PATIENT NAME: Dulce Maria Catry DATE OF SERVICE: October 08, 2024 TIME: 8:29 PM PATIENT IDENTITY VERIFICATION COMPLETED USING TWO (2) IDENTIFIERS: Name and Date of confirmed by patient verbally and Name and Date of confirmed by identification band. FALL SCREENING: Has the patient had 2 falls in the last year or 1 fall with injury or currently using an Ambulatory Assistive Device (Walker, Cane, Wheelchair, Crutches, etc.)? Emergency Room Patient: Screened in ED PATIENT GENDER DATA: Assigned female at . status: : No status: NO. PATIENT RELEVANT IMPLANT DATA REVIEWED: Not Applicable PATIENT PRESENTS WITH AN IMPLANTABLE OR ATTACHED CARPET OR RUG LAYER HELPER: No RADIOLOGY DEPARTMENT: General X-ray: Exam(s) Completed: Chest X-Ray PERIPHERAL IV DATA: Not applicable SIGNED BY: RT Liane(R) October 08, 2024 8:29 PM [facility] CBC W Auto Differential pane l (Bld)on 10-08-2024 Basophils (Bld) [#/Vol] 0.04 10*3/uL Normal <0.11 [facility] Comment on above: Order Comment: Speci men Type: BLOOD SPECIMEN [facility] Facility[facility] Address: [address] [place] [address] Performed By: #### 5 7021-8 #### [facility] CLIA [id number] [address] [place] [address] [place] Basophils/100 WBC (Bld) 0.6 % Normal [facility] Comment on above: Order Comment: Speci men Type: BLOOD SPECIMEN [facility]ing [facility] Address: [address] [place] [address] Performed By: #### 5 7021-8 #### [facility] CLIA [id number] [address] Differential cell count method Nom (Bld) Auto Normal [facility] Comment on above: Order Comment: Speci men Type: BLOOD SPECIMEN [facility] Address: [address] [place] [address] Performed By: #### 5 7021-8 #### [facility] CLIA [id number] [address] [place] [address] [place] Eosinophils (Bld) [#/Vol] 10*3/uL Normal <0.46 [facility] Comment on above: Order Comment: Speci men Type: BLOOD SPECIMEN [facility] Address: [address] [place] [address] Performed By: #### 5 7021-8 #### [facility] CLIA [id number] [address] [place] Eosinophils/100 WBC (Bld) 0.3 % Normal [facility] Comment on above: Order Comment: Speci men Type: BLOOD SPECIMEN [facility] Address: [address] [place] [address] Performed By: #### 5 7021-8 #### [facility] CLIA [id number] [address] [place] [address] [place] Erythrocyte distribution width (RBC) [Ratio] 12.0 % Normal 11.5-15.0 [facility] Comment on above: Order Comment: Speci men Type: BLOOD SPECIMEN [facility] Address: [address] [place] [address] Performed By: #### 5 7021-8 #### [facility] CLIA [id number] [address] [place] Hematocrit (Bld) [Volume fraction] 42.4 % Normal 36.0-46.0 [facility] Comment on above: Order Comment: Speci men Type: BLOOD SPECIMEN [facility] Address: [address] [place] [address] Performed By: #### 5 7021-8 #### [facility] CLIA [id number] [address] [place] Hemoglobin (Bld) [Mass/Vol] 14.4 g/dL Normal 11.5-15.5 [facility] Comment on above: Order Comment: Speci men Type: BLOOD SPECIMEN [facility] Address: [address] [place] [address] Performed By: #### 5 7021-8 #### [facility] CLIA [id number] [address] [place] Immature granulocytes (Bld) [#/Vol] 10*3/uL Normal <0.10 [facility] Comment on above: Order Comment: Speci men Type: BLOOD SPECIMEN [facility] Address: [address] [place] [address] Performed By: #### 5 7021-8 #### [facility] CLIA [id number] [address] [place] Immature granulocytes/100 WBC (Bld) 0.1 % Normal [facility] Comment on above: Order Comment: Speci men Type: BLOOD SPECIMEN [facility] Address: [address] [place] [address] Performed By: #### 5 7021-8 #### [facility] CLIA [id number] [address] [place] Lymphocytes (Bld) [#/Vol] 1.44 10*3/uL Normal 1.00-4.00 [facility] Comment on above: Order Comment: Speci men Type: BLOOD SPECIMEN [facility] Address: [address] [place] [address] Performed By: #### 5 7021-8 #### [facility] CLIA [id number] [address] Lymphocytes/100 WBC (Bld) 20.5 % Normal [facility] Comment on above: Order Comment: Speci men Type: BLOOD SPECIMEN [facility] Address: [address] [place] [address] Performed By: #### 5 7021-8 #### [facility] CLIA [id number] [address] MCH (RBC) [Entitic mass] 28.6 pg Normal 26.0-34.0 [facility] Comment on above: Order Comment: Speci men Type: BLOOD SPECIMEN [facility] Address: [address] [place] [address] Performed By: #### 5 7021-8 #### [facility] CLIA [id number] [address] MCHC (RBC) [Mass/Vol] 34.0 g/dL Normal 30.5-36.0 [facility] Comment on above: Order Comment: Speci men Type: BLOOD SPECIMEN [facility] Address: [address] [place] [address] Performed By: #### 5 7021-8 #### [facility] CLIA [id number] [address] MCV (RBC) [Entitic vol] 84.1 fL Normal 80.0-100.0 [facility] Comment on above: Order Comment: Speci men Type: BLOOD SPECIMEN [facility] Address: [address] [place] [address] Performed By: #### 5 7021-8 #### [facility] CLIA [id number] [address] [place] Monocytes (Bld) [#/Vol] 0.40 10*3/uL Normal <0.87 [facility] Comment on above: Order Comment: Speci men Type: BLOOD SPECIMEN Ordering [facility] Address: [facility] [place] [address] Performed By: #### 5 7021-8 #### [facility] CLIA [id number] [address] [place] [address] [place] Monocytes/100 WBC (Bld) 5.7 % Normal [facility] Comment on above: Order Comment: Speci men Type: BLOOD SPECIMEN [facility] Address: [address] [place] [address] Performed By: #### 5 7021-8 #### [facility] CLIA [id number] [address] [place] Neutrophils (Bld) [#/Vol] 5.10 10*3/uL Normal 1.45-7.50 [facility] Comment on above: Order Comment: Speci men Type: BLOOD SPECIMEN [facility] Address: [address] [place] [address] Performed By: #### 5 7021-8 #### [facility] CLIA [id number] [address] [place] Neutrophils/100 WBC (Bld) 72.8 % Normal [facility] Comment on above: Order Comment: Speci men Type: BLOOD SPECIMEN [facility] Address: [address] [place] [address] Performed By: #### 5 7021-8 #### [facility] CLIA [id number] [address] [place] [address] [place] Nucleated RBC (Bld) [#/Vol] 10*3/uL Normal <0.01 [facility] Comment on above: Order Comment: Speci men Type: BLOOD SPECIMEN [facility] Address: [address] [place] [address] Performed By: #### 5 7021-8 #### [facility] CLIA [id number] [address] [place] [address] [place] Nucleated RBC/100 WBC (Bld) [Ratio] 0.0 /100 WBC Normal [facility] Comment on above: Order Comment: Speci men Type: BLOOD SPECIMEN [facility] Address: [address] [place] [address] Performed By: #### 5 7021-8 #### [facility] CLIA [id number] [address] [place] Platelet mean volume (Bld) [Entitic vol] 10.1 fL Normal 9.0-12.7 [facility] Comment on above: Order Comment: Speci men Type: BLOOD SPECIMEN [facility] Address: [address] [place] [address] Performed By: #### 5 7021-8 #### [facility] CLIA [id number] [address] [place] Platelets (Bld) [#/Vol] 211 10*3/uL Normal 150-400 [facility] Comment on above: Order Comment: Speci men Type: BLOOD SPECIMEN [facility] Address: [address] [place] [address] Performed By: #### 5 7021-8 #### [facility] CLIA [id number] [address] [place] [address] [place] RBC (Bld) [#/Vol] 5.04 10*6/uL Normal 3.90-5.20 [facility] Comment on above: Order Comment: Speci men Type: BLOOD SPECIMEN Order[facility] Address: [address] [place] [address] Performed By: #### 5 7021-8 #### [facility] CLIA [id number] [address] [place] WBC (Bld) [#/Vol] 7.01 10*3/uL Normal 3.70-11.00 [facility] Comment on above: Order Comment: Speci men Type: BLOOD SPECIMEN [facility] Address: [address] [place] [address] Performed By: #### 5 7021-8 #### [facility] CLIA [id number] [address] [place] [address] [place] Comprehensive metabolic 2000 panelon 10-08-2024 Albumin [Mass/Vol] 4.7 g/dL Normal 3.9-4.9 [facility] Comment on above: Order Comment: Speci men Type: BLOOD SPECIMEN [facility] Address: [address] [place] [address] Performed By: #### 2 4323-8, 92474-2, [id number], 3016-3 #### [facility] CLIA [id number] [address] [place] [address] [place] ALP [Catalytic activity/Vol] 66 U/L Normal 34-123 [facility] Comment on above: Order Comment: Speci men Type: BLOOD SPECIMEN [facility] Address: [address] [place] [address] Performed By: #### 2 4323-8, 99447-1, [id number], 3016-3 #### [facility] CLIA [id number] [address] [place] ALT [Catalytic activity/Vol] 14 U/L Normal 7-38 [facility] Comment on above: Order Comment: Speci men Type: BLOOD SPECIMEN [facility] Address: [address] [place] [address] Performed By: #### 2 4323-8, 57277-1, [id number], 3016-3 #### [facility] CLIA [id number] [address] [place] [address] [place] Anion gap [Moles/Vol] 11 mmol/L Normal 8-15 [facility] Comment on above: Order Comment: Speci men Type: BLOOD SPECIMEN [facility] Address: [address] [place] [address] Performed By: #### 2 4323-8, 98616-7, OIF7439, 3016-3 #### [facility] CLIA [id number] [address] [place] [address] [place] AST [Catalytic activity/Vol] 15 U/L Normal 13-35 [facility] Comment on above: Order Comment: Speci men Type: BLOOD SPECIMEN [facility] Address: [address] [place] [address] Performed By: #### 2 4323-8, 18831-6, [id number], 3016-3 #### [facility] CLIA [id number] [address] [place] [address] [place] Bilirubin [Mass/Vol] 0.6 mg/dL Normal 0.2-1.3 [facility] Comment on above: Order Comment: Speci men Type: BLOOD SPECIMEN [facility] Address: [address] [place] [address] Performed By: #### 2 4323-8, 38561-7, REP9306, 3016-3 #### [facility] CLIA [id number] [address] [place] [address] [place] Calcium [Mass/Vol] 9.4 mg/dL Normal 8.5-10.2 [facility] Comment on above: Order Comment: Speci men Type: BLOOD SPECIMEN [facility] Address: [address] [place] [address] Performed By: #### 2 4323-8, 23265-5, YSF4244, 3016-3 #### [facility] CLIA [id number] [address] [place] [address] [place] Chloride [Moles/Vol] 104 mmol/L Normal 98-107 [facility] Comment on above: Order Comment: Speci men Type: BLOOD SPECIMEN [facility] Address: [address] [place] [address] Performed By: #### 2 4323-8, 10598-1, [id number], 3016-3 #### [facility] CLIA [id number] [address] [place] [address] [place] CO2 [Moles/Vol] 25 mmol/L Normal 22-30 [facility] Comment on above: Order Comment: Speci men Type: BLOOD SPECIMEN [facility] Address: [address] [place] [address] Performed By: #### 2 4323-8, 63501-2, RSL9974, 3016-3 #### [facility] CLIA [id number] [address] [place] [address] [place] Creatinine [Mass/Vol] 0.85 mg/dL Normal 0.58-0.96 [facility] Comment on above: Order Comment: Leandro murphy Type: BLOOD SPECIMEN [facility] Address: [address] [place] [address] Performed By: #### 2 4323-8, 76837-0, RTQ4560, 3016-3 #### [facility] CLIA [id number] [address] eGFRcr SerPlBld CKD-EPI 2020 95 mL/min/1.73m??? Normal >=60 [facility] Comment on above: Order Comment: Leandro murphy Type: BLOOD SPECIMEN [facility] Address: [address] [place] [address] Result Comment: Kimberly mated Glomerular Filtration Rate (eGFR) is calculated using the 2020 CKD-EPI creatinine equation. This equation utilizes serum creatinine, sex, and age as parameters. The creatinine assay has traceable calibration to isotope dilution-mass spectrometry. Refer to KDIGO guidelines for clinical interpretation. In patients with unstable renal function, e.g. those with acute kidney injury, the eGFR may not accurately reflect actual GFR. Performed By: #### 2 4323-8, 19745-5, SKK6331, 3016-3 #### [facility] CLIA [id number] [address] STATES OF [facility] Glucose [Mass/Vol] 104 mg/dL High 74-99 [facility] Comment on above: Order Comment: Leandro murphy Type: BLOOD SPECIMEN [facility] Address: [address] [place] [address] Result Comment: The [place] [employer] (ADA) provides guidance for cutoff values for fasting glucose and random glucose. The ADA defines fasting as no caloric intake for at least 8 hours. Fasting plasma glucose results between 100 to 125 mg/dL indicate increased risk for diabetes (prediabetes). Fasting plasma glucose results greater than or equal to 126 mg/dL meet the criteria for diagnosis of diabetes. In the absence of unequivocal hyperglycemia, results should be confirmed by repeat testing. In a patient with classic symptoms of hyperglycemia or hyperglycemic crisis, random plasma glucose results greater than or equal to 200 mg/dL meet the criteria for diagnosis of diabetes. Reference: Standards of Medical Care in Diabetes 2016, [place] [employer] Association. Diabetes Care. 2016.39(Suppl 1). Performed By: #### 2 4323-8, 36070-3, SNR7652, 3016-3 #### [facility] CLIA [id number] [address] [place] [address] [place] Potassium [Moles/Vol] 4.0 mmol/L Normal 3.7-5.1 [facility] Comment on above: Order Comment: Speci men Type: BLOOD SPECIMEN [facility] Address: [address] [place] [address] Performed By: #### 2 4323-8, , OGQ6131, 3016-3 #### [facility] CLIA [id number] [address] [place] [address] [place] Protein [Mass/Vol] 7.4 g/dL Normal 6.3-8.0 [facility] Comment on above: Order Comment: Speci men Type: BLOOD SPECIMEN [facility] Address: [address] [place] [id number] Performed By: #### 2 4323-8, , [id number], 3016-3 #### [facility] CLIA [id number] [address] [place] [address] [place] Sodium [Moles/Vol] 140 mmol/L Normal 136-144 [facility] Comment on above: Order Comment: Damiani men Type: BLOOD SPECIMEN [facility] Address: [address] [place] [address] Performed By: #### 2 4323-8, 51012-8, QJR9834, 3016-3 #### [facility] CLIA [id number] [address] [place] [address] [place] Urea nitrogen [Mass/Vol] 12 mg/dL Normal 7-21 [facility] Comment on above: Order Comment: Damiani men Type: BLOOD SPECIMEN [facility] Address: [address] [place] [id number] Performed By: #### 2 4323-8, 07646-9, [id number], 3016-3 #### [facility] CLIA [id number] [address] [place] [address] [place] ECG 12-LEADon 10-08-2024 ECG 12-LEAD IMPRESSION: Sinus rhythm Electronically Signed On 10-08-2024 00:57:44 EDT by Anastasiia Stokes [facility] ED NOTEon 10-08-2024 ED NOTE HNO ID: [id number] Author: FABIAN OLSON, GEREMIAS Service: ? Author Type: Registered Nurse Type: ED Notes Filed: 10/08/2024 20:35 Note Text: Patient aware of urine sample needed. [facility] ED PROV NOTEon 10-08-2024 ED PROV NOTE HNO ID: [id number] Author: ILEANA JOHNSON DO Service: Emergency Medicine Author Type: Physician Type: ED Provider Notes Filed: 10/09/2024 04:13 Note Text: ED Provider Note Patient Name: Dulce Maria Carty : 1995 SERVICE DATE: 10/08/24 History Patient presents with: Palpitations: Palpitations, dizziness, shakiness, head pressure x 2 weeks. 28-year-old female with history of asthma, GERD, IBS, anxiety, and chronic pain presents to the emergency department reporting 1 week duration of episodic positional dizziness and weakness with presyncope. Also describes neck discomfort/tightness, intermittent headaches, and palpitations. She feels pounding in her head or chest in her abdomen. Had similar symptoms when she was and underwent a Holter monitor and an echo that were reassuring. These episodes have been ongoing for greater than 1 week. She is actually been seen in the emergency department on 3 separate occasions within the last 5 days with reassuring workups including EKG, cardiac enzymes, blood counts, metabolic panel, thyroid levels, CT PE, and CT brain. Primary care had initially considered endocrine etiology to her symptoms and she even completed an MRI of her pituitary within the last month that was unrevealing. Presents today reporting impact on her day-to-day life and expectations managing her children at home. Frustrated that she was unable to get a cardiology follow-up appointment until November through her primary care provider. Denies any syncope with collapse or loss of consciousness. No subsequent injury. She is currently breast-feeding and underwent a lumpectomy 7 weeks ago with resection of what was found to be a milk cyst in her left breast. Otherwise has no complaints of breast pain skin changes or fever. No cough or chest pain. No sob or pleurisy. No vomiting, diarrhea, hematochezia/melena, urinary or vaginal symptoms. No vision changes. No numbness. Additional ROS negative as outlined below. 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 PAST SURGICAL HISTORY Procedure Laterality Date - BREAST LUMPECTOMY HX 08/2024 - COLONOSCOPY 03/2024 - TONSILLECTOMY AND ADENOIDECTOMY FAMILY HISTORY Problem Relation Age of Onset - Colon Cancer Maternal Grandmother Social History[1] ALLERGIES Allergen Reactions - Alprazolam Unknown - Quetiapine Fumarate Unknown Review of Systems Constitutional: Negative for chills and fever. HENT: Negative. Eyes: Negative for photophobia and visual disturbance. Respiratory: Negative for shortness of breath. Cardiovascular: Positive for palpitations. Negative for chest pain and leg swelling. Gastrointestinal: Negative for abdominal pain, nausea and vomiting. Genitourinary: Negative for dysuria. Musculoskeletal: Positive for myalgias. Allergic/Immunologic: Negative for immunocompromised state. Neurological: Positive for weakness and light-headedness. Hematological: Does not bruise/bleed easily. Psychiatric/Behavioral: Negative for confusion. Physical Exam Vitals [10/08/24 1900] BP Pulse Temp Temp src Resp SpO2 Weight Height 142/99 (!) 109 36.9 ?C (98.5 ?F) Oral 16 99 % 75.8 kg (167 lb) -- Physical Exam Vitals and nursing note reviewed. Constitutional: General: She is awake. She is not in acute distress. Appearance: Normal appearance. She is well-developed and well-groomed. She is not ill-appearing, toxic-appearing or diaphoretic. HENT: Head: Normocephalic and atraumatic. Right Ear: Hearing, tympanic membrane, ear canal and external ear normal. Left Ear: Hearing, tympanic membrane, ear canal and external ear normal. Nose: Nose normal. Mouth/Throat: Mouth: Mucous membranes are moist. Eyes: General: No visual field deficit. Extraocular Movements: Extraocular movements intact. Right eye: No nystagmus. Left eye: No nystagmus. Pupils: Pupils are equal, round, and reactive to light. Neck: Meningeal: Brudzinski's sign absent. Cardiovascular: Rate and Rhythm: Normal rate and regular rhythm. Pulses: Normal pulses. Radial pulses are 2+ on the right side and 2+ on the left side. Dorsalis pedis pulses are 2+ on the right side and 2+ on the left side. Heart sounds: Normal heart sounds, S1 normal and S2 normal. Comments: No pedal edema or evidence of fluid overload. Pulmonary: Effort: Pulmonary effort is normal. Breath sounds: Normal breath sounds and air entry. Chest: Comments: Left breast examined with incision to lateral lower quadrant of breast from recent lumpectomy without evidence of complication including seroma, hematoma, abscess, or overlying cellulitis. Nontender. Abdominal: General: There is no distension or abdominal bruit. Palpations: Abdomen is soft. There is no mass or pulsatile mass. Tenderness: There is no abdominal tenderness. There is no guarding. Musculoskeletal: Gene (more content not included)... Normal [facility] EKGon 10-08-2024 Electrocardiogram Ventricular Rate : 9 3 BPM Atrial Rate : 93 BPM P-R Interval : 154 ms QRS Duration : 86 ms Q-T Interval : 358 ms QTC Calculation(Bazett) : 445 ms Calculated P [place] : 63 degrees Calculated R [place] : 65 degrees Calculated T [place] : 36 degrees NORMAL SINUS RHYTHM NORMAL ECG Confirmed by TING HEARN MD ([id number]) on 10/08/2024 7:11:05 PM NAME : DULCE MARIA CARTY PID : [id number] : 1995 Gender : Female Race : ORD : Procedure Date : Oct 08 2024 19:04:17 Edit Date : Oct 08 2024 19:11:09 Diagnosis: NORMAL SINUS RHYTHM NORMAL ECG Confirmed by TING HEARN MD ([id number]) on 10/08/2024 7:11:05 PM Test Reason : Location : 1 : ER ED Overread By : TING HEARN MD Edited By : TING HEARN MD Referred By : , Acquired by : [id number], Normal [facility] HCG QUALITATIVEon 10-08-2024 HCG, QUALITATIVE Negative Normal Negative [facility] Comment on above: Order Comment: Speci men Type: BLOOD SPECIMEN [facility] Address: [address] [place] [address] Performed By: #### H CG #### [facility] CLIA [id number] [address] HIGH SENSITIVITY TROPONIN T (INITIAL)on 10-08-2024 Troponin T.cardiac High sensitivity method [Mass/Vol] <6 Normal <12 [facility] Comment on above: Order Comment: Speci men Type: BLOOD SPECIMEN [facility] Address: [address] [place] [address] Performed By: #### 2 4323-8, 27154-0, [id number], 3016-3 #### [facility] CLIA [id number] [address] HIGH SENSITIVITY TROPONIN T (SECOND)on 10-08-2024 Troponin T.cardiac High sensitivity method [Mass/Vol] <6 Normal <12 [facility] Comment on above: Order Comment: Speci men Type: BLOOD SPECIMEN [facility] Address: [address] [place] [address] Performed By: #### 2 4323-8, 10163-7, [id number], 3016-3 #### [facility] CLIA [id number] [address] Magnesium SerPl-mCncon 10-08 Magnesium [Mass/Vol] 2.2 mg/dL Normal 1.7-2.3 [facility] Comment on above: Order Comment: Speci men Type: BLOOD SPECIMEN [facility] Address: [address] [place] [address] Performed By: #### 2 4323-8, 26297-9, [id number], 3016-3 #### [facility] CLIA [id number] [address] OF [place] No Panel InformationOrdered By: Anastasiia Stokes on 10-08-2024 P [place] 61 degrees [employer] Phone: [place] Interval 161 ms [employer] Phone: QRS [place] 58 degrees [employer] Phone: QRSD Interval 93 ms [employer] Phone: QT Interval 387 ms [employer] Phone: QTC Interval 438 ms [employer] Phone: T Wave [place] 40 degrees [employer] Phone: [employer] Phone: No Panel Informationon 10-08 Sinus rhythm Electronically Signed On 10-08-2024 00:57:44 EDT by Anastasiia Burns D O - 10/08/2024 IMPRESSION: Sinus rhythm Electronically Signed On 10-08-2024 00:57:44 EDT by Anastasiia Stokes [facility] TSH SerPl-aCncon 10-08-2024 TSH Qn 1.570 m[IU]/L Normal 0.270-4.200 [facility] Comment on above: Order Comment: Speci men Type: BLOOD SPECIMEN [facility] Address: [address] [place] [address] Result Comment: If t he patient is , TSH reference range varies by gestational period: First Trimester (weeks 9-12): 0.180-2.990 mIU/L Second Trimester: 0.110-3.980 mIU/L Third Trimester: 0.480-4.710 mIU/L Santos Davila et al. A Practical Approach for the Verifications and Determination of Site- and Trimester-Specific Reference Intervals for Thyroid Function tests in . Thyroid, 2019:29:3:412-420. Gilberto E, et al. 2017 Guidelines of the [place] [employer] for the Diagnosis and Management of Thyroid Disease during and the . Thyroid, 2017:27:3:315-389. Performed By: #### 2 4323-8, 04873-6, [id number], 3016-3 #### [facility] CLIA [id number] [address] [place] Urinalysis complete panel (U )on 10-08-2024 Bilirubin Ql (U) Negative Normal Negative [facility] Comment on above: Order Comment: Speci men Type: BLOOD SPECIMEN [facility] Address: [address] [place] [address] Performed By: #### 2 4323-8, 96324-5, [id number], 3016-3 #### [facility] CLIA [id number] [address] Clarity (Unsp spec) Clear Normal Clear [facility] Comment on above: Order Comment: Speci men Type: BLOOD SPECIMEN [facility] Address: [facility] [place] [address] Performed By: #### 2 4323-8, 87548-8, [id number], 3016-3 #### [facility] CLIA [id number] [address] Color (U) Yellow Normal Yellow [facility] Comment on above: Order Comment: Speci men Type: BLOOD SPECIMEN [facility] Address: [address] [place] [address] Performed By: #### 2 4323-8, 09597-3, [id number], 3016-3 #### [facility] CLIA [id number] [address] Glucose Test strip (U) [Mass/Vol] Negative Normal Negative [facility] Comment on above: Order Comment: Speci men Type: BLOOD SPECIMEN [facility] Address: [address] [place] [address] Performed By: #### 2 4323-8, 71566-3, [id number], 3016-3 #### [facility] CLIA [id number] [address] Hemoglobin Ql (U) Negative Normal Negative [facility] Comment on above: Order Comment: Speci men Type: BLOOD SPECIMEN [facility] Address: [address] [place] [id number] Performed By: #### 2 4323-8, 91462-1, [id number], 3016-3 #### [facility] CLIA [id number] [address] [place] [address] [place] Ketones Ql (U) Negative Normal Negative [facility] Comment on above: Order Comment: Speci men Type: BLOOD SPECIMEN [facility] Address: [address] [place] [address] Performed By: #### 2 4323-8, 58749-7, [id number], 3016-3 #### [facility] CLIA [id number] [address] Leukocyte esterase Test strip Ql (U) Negative Normal Negative [facility] Comment on above: Order Comment: Speci men Type: BLOOD SPECIMEN [facility] Address: [address] [place] [address] Performed By: #### 2 4323-8, 93287-6, [id number], 3016-3 #### [facility] CLIA [id number] [address] [place] Nitrite Ql (U) Negative Normal Negative [facility] Comment on above: Order Comment: Speci men Type: BLOOD SPECIMEN [facility] Address: [address] [place] [address] Performed By: #### 2 4323-8, 72438-7, [id number], 3016-3 #### [facility] CLIA [id number] [address] [place] pH (U) 6.0 [pH] Normal 5.0-8.0 [facility] Comment on above: Order Comment: Speci men Type: BLOOD SPECIMEN [facility] Address: [address] [place] [address] Performed By: #### 2 4323-8, 08949-2, [id number], 3016-3 #### [facility] CLIA [id number] [address] Protein (U) [Mass/Vol] Negative Normal Negative [facility] Comment on above: Order Comment: Speci men Type: BLOOD SPECIMEN [facility] Address: [address] [place] [address] Performed By: #### 2 4323-8, 71877-7, [id number], 3016-3 #### [facility] CLIA [id number] [address] RBC LM.HPF (Urine sed) [#/Area] 0-3 /HPF Normal 0-3 /HPF [facility] Comment on above: Order Comment: Speci men Type: BLOOD SPECIMEN [facility] Address: [address] [place] [address] Performed By: #### 2 4323-8, , [id number], 3016-3 #### [facility] CLIA [id number] [address] Specific gravity (U) [Rel density] 1.015 Normal 1.005-1.030 [facility] Comment on above: Order Comment: Speci men Type: BLOOD SPECIMEN [facility] Address: [address] [place] [address] Performed By: #### 2 4323-8, , [id number], 3016-3 #### [facility] CLIA [id number] [address] Urobilinogen Ql (U) 0.2 EU/dL Normal 0.2-1.0 EU/dL [facility] Comment on above: Order Comment: Speci men Type: BLOOD SPECIMEN [facility] Address: [address] [place] [address] Performed By: #### 2 4323-8, , [id number], 3016-3 #### [facility] CLIA [id number] [address] WBC LM.HPF (Urine sed) [#/Area] 0-5 /HPF Normal 0-5 /HPF [facility] Comment on above: Order Comment: Speci men Type: BLOOD SPECIMEN [facility] Address: [address] [place] [address] Performed By: #### 2 4323-8, 47153-1, PZS8637, 3016-3 #### [facility] CLIA [id number] [address] [place] [address] [place] Vital signsOrdered By: Jeniffer Stokes on 10-08-2024 Heart rate 77 /min bpm [facility] [employer] Phone: XR CHEST 2V FRONTAL/LATon XR CHEST 2V FRONTAL/LAT * * *Final Repor t* * * DATE OF EXAM: Oct 08 2024 8:31PM MDX 5291 - XR CHEST 2V FRONTAL/LAT / PROCEDURE REASON: Chest Pain * * * * Physician Interpretation * * * * EXAMINATION: CHEST RADIOGRAPH (2 VIEW FRONTAL and LATERAL) CLINICAL HISTORY: Chest Pain MQ: [id number]_6 EXAM DATE/TIME: 10/08/2024 8:31 PM COMPARISON: No relevant prior studies available. RESULT: Lines, tubes, and devices: None. Lungs and pleura: No consolidation. No lung mass. No pleural effusion. No pneumothorax. Cardiomediastinal silhouette: Normal cardiomediastinal silhouette. Bones and soft tissues: Unremarkable. IMPRESSION: No acute radiographic abnormality. 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 ER notes report Chest pain, CAT, dizziness, neck pain and sob. Pt last seen 02/13/23, prn at that time. [facility] 36 Name of Caller: Adali lola Contact Reason for Appointment: ER visit for Tachycardia and dizziness. Please call patient to schedule Office Name: [facility] BASIC METABOLIC PANELon Anion gap [Moles/Vol] 12 mmol/L Normal 3-13 [facility] Comment on above: Performed By: #### L AB106, [id number], LAB99, LAB20, LAB62, LAB61, LAB15, [id number] ####[employer] Clerk: EMILIA HAGEN ([phone])[facility] ([facility])[address] Calcium [Mass/Vol] 8.6 mg/dL Normal 8.4-10.2 [facility] Comment on above: Performed By: #### L AB106, [id number], LAB99, LAB20, LAB62, LAB61, LAB15, RMP344 ####[employer] Clerk: EMILIA HAGEN ([id number])[facility] ([facility])[address] Chloride [Moles/Vol] 109 mmol/L High 98-107 [facility] Comment on above: Performed By: #### L AB106, [id number], LAB99, LAB20, LAB62, LAB61, LAB15, [id number] ####[employer] Clerk: EMILIA HAGEN ([phone])[facility] ([facility])[address] CO2 [Moles/Vol] 21 mmol/L Low 22-29 [facility] Comment on above: Performed By: #### L AB106, [id number], LAB99, LAB20, LAB62, LAB61, LAB15, [id number] ####[employer] Clerk: EMILIA HAGEN ([id number])[facility] ([facility])[address] Creatinine [Mass/Vol] 0.73 mg/dL Normal 0.57-1.11 [facility] Comment on above: Performed By: #### L AB106, [id number], LAB99, LAB20, LAB62, LAB61, LAB15, EHP723 ####[employer] Clerk: EMILIA HAGEN ([id number])[facility] ([facility])[address] GLOMERULAR FILTRATION RATE ML/MIN/1.73 SQ M.PREDICTED >90.0 Normal >60.0 [facility] Comment on above: Result Comment: Calc ulation based on the Chronic Kidney Disease Epidemiology Collaboration (CKD-EPI) equation refit without adjustment for race Performed By: #### L AB106, [id number], LAB99, LAB20, LAB62, LAB61, LAB15, UYB460 ####[employer]uel [employer] Clerk: EMILIA HAGEN ([id number])[facility] ([facility])[address] Glucose [Mass/Vol] 94 mg/dL Normal 74-100 [facility] Comment on above: Performed By: #### L AB106, [id number], LAB99, LAB20, LAB62, LAB61, LAB15, PZB740 ####[employer]uel [employer] Clerk: EMILIA HAGEN ([id number])[facility] ([facility] Potassium [Moles/Vol] 4.9 mmol/L Normal 3.5-5.1 [facility] Comment on above: Result Comment: [facility] potassium values may be up to 0.5 mmol/L lower than serum values. Performed By: #### L AB106, [id number], LAB99, LAB20, LAB62, LAB61, LAB15, [id number] ####[employer]uel [employer] Clerk: EMILIA HAGEN ([phone])[facility] ([facility])[address] [place] [address] Sodium [Moles/Vol] 142 mmol/L Normal 136-145 [facility] Comment on above: Performed By: #### L AB106, [id number], LAB99, LAB20, LAB62, LAB61, LAB15, DLI156 ####[employer] Clerk: EMILIA HAGEN ([phone])[facility] ([facility])[address] [place] [address] [place] Urea nitrogen [Mass/Vol] 8 mg/dL Normal 8-21 [facility] Comment on above: Performed By: #### L AB106, [id number], LAB99, LAB20, LAB62, LAB61, LAB15, GBN994 ####[employer] Clerk: EMILIA HAGEN ([id number])[facility] (HLAB)[address] [place] [id number] [facility] Basic metabolic 1998 panelOr dered By: Anu Jolly on 10-07-2024 Anion gap [Moles/Vol] 12 mmol/L 3 - 13 mmol/L [facility] [employer] Calcium [Mass/Vol] 8.6 mg/dL 8.4 - 10. 2 mg/dL [facility] [employer] Chloride [Moles/Vol] 109 mmol/L High 98 - 10 7 mmol/L [facility] [employer] CO2 [Moles/Vol] 21 mmol/L Low 22 - 29 mmol/L [facility] Creatinine [Mass/Vol] 0.73 mg/dL 0.57 - 1.11 mg/dL [facility] [employer] GFR/1.73 sq M.predicted (S/P/Bld) [Vol rate/Area] - PINF [facility] Comment on above: Calculation based on the Chronic Kidney Disease Epidemiology Collaboration (CKD-EPI) equation refit without adjustment for race Glucose [Mass/Vol] 94 mg/dL 74 - 100 mg/dL [facility] Interpretation and review of laboratory results Abnormal [facility] [employer] Potassium [Moles/Vol] 4.9 mmol/L 3.5 - 5.1 mmol/L [facility] Comment on above: Plasma potassium eliezer ues may be up to 0.5 mmol/L lower than serum values. Sodium [Moles/Vol] 142 mmol/L 136 - 145 mmol/L [facility] [employer] Urea nitrogen [Mass/Vol] 8 mg/dL 8 - 21 mg/dL [facility] CBC W Auto Differential pane l (Bld)on 10-07-2024 Basophils (Bld) [#/Vol] 0 10*3/uL 0.0 - 0.2 10*3/uL [facility] [employer] Basophils/100 WBC (Bld) 0.1 % 0.0 - 2.0 % [facility] Eosinophils (Bld) [#/Vol] 0 10*3/uL 0.0 - 0.5 10*3/uL [facility] [employer] Eosinophils/100 WBC (Bld) 0 % 0.0 - 6.0 % [facility] Erythrocyte distribution width (RBC) [Ratio] 11.8 % 11.5 - 15.0 % [facility] Hematocrit (Bld) [Volume fraction] 40.2 % 35.0 - 47.0 % [facility] Hemoglobin (Bld) [Mass/Vol] 13.4 g/dL 11.7 - 16.0 g/dL [facility] Immature granulocytes (Bld) [#/Vol] 0 10*3/uL NINF - 0.1 10*3/uL [facility] Immature granulocytes/100 WBC (Bld) 0.4 % 0.0 - 2.0 % [facility] Interpretation and review of laboratory results Abnormal [facility] Lymphocytes (Bld) [#/Vol] 1 10*3/uL 1.0 - 4.3 10*3/uL [facility] Lymphocytes/100 WBC (Bld) 15.1 % 15.0 - 45.0 % [facility] MCH (RBC) [Entitic mass] 28.2 pg 26.0 - 34.0 pg [facility] MCHC (RBC) [Mass/Vol] 33.3 % 30.5 - 36.0 % [facility] MCV (RBC) [Entitic vol] 84.6 fL 77.0 - 99.0 fL [facility] Monocytes (Bld) [#/Vol] 0.3 10*3/uL 0.0 - 0.9 10*3/uL [facility] Monocytes/100 WBC (Bld) 4.3 % Low 5.0 - 13.0 % [facility] Neutrophils (Bld) [#/Vol] 5.5 10*3/uL 1.8 - 7.5 10*3/uL [facility] Neutrophils/100 WBC (Bld) 80.1 % 38.0 - 82.0 % [facility] Nucleated RBC/100 WBC (Bld) [Ratio] 0 % [facility] Platelet mean volume (Bld) [Entitic vol] 10.4 fL 9.0 - 12.7 fL [facility] Platelets (Bld) [#/Vol] 191 10*3/uL 140 - 440 10*3/uL [facility] RBC (Bld) [#/Vol] 4.75 10*6/uL 3.80 - 5.2 0 10*6/uL [facility] WBC (Bld) [#/Vol] 6.9 10*3/uL 3.6 - 10.7 10*3/uL [facility] CBC WITH AUTO DIFFERENTIALon 10-07-2024 Basophils (Bld) [#/Vol] 0.0 10*3/uL Normal 0.0-0.2 [facility] Comment on above: Performed By: #### L [id number] ####[employer]uel [employer] Clerk: EMILIA HAGEN ([id number])[facility] ([facility])[address] Basophils/100 WBC (Bld) 0.1 % Normal 0.0-2.0 [facility] Comment on above: Performed By: #### L [id number] ####[employer] Clerk: EMILIA HAGEN ([id number])[facility] ([facility])[address] Eosinophils (Bld) [#/Vol] 0.0 10*3/uL Normal 0.0-0.5 [facility] Comment on above: Performed By: #### L [id number] ####[employer] Clerk: EMILIA CHONGYONATAN ([phone])[facility] ([facility])[address] Eosinophils/100 WBC (Bld) 0.0 % Normal 0.0-6.0 [facility] Comment on above: Performed By: #### L [id number] ####[employer] Clerk: EMILIA HAGEN ([id number])[facility] ([facility])[address] Erythrocyte distribution width (RBC) [Ratio] 11.8 % Normal 11.5-15.0 [facility] Comment on above: Performed By: #### L [id number] ####[employer] Clerk: EMILIA CHONGYONATAN ([phone])[facility] ([facility])[address] Hematocrit (Bld) [Volume fraction] 40.2 % Normal 35.0-47.0 [facility] Comment on above: Performed By: #### L [id number] ####Fuel Oil Clerk: EMILIA HAGEN ([phone])[facility] [place] ([facility])[address] Hemoglobin (Bld) [Mass/Vol] 13.4 g/dL Normal 11.7-16.0 [facility] Comment on above: Performed By: #### L [id number] ####Fuel Oil Clerk: EMILIA HAGEN ([id number])[facility] [place] ([facility])[address] IMMATURE GRANS % 0.4 % Normal 0.0-2.0 [facility] Comment on above: Performed By: #### L [id number] ####[employer]uel [employer] Clerk: EMILIA HAGEN ([id number])[facility] [place] ([facility])[address] IMMATURE GRANS ABSOLUTE 0.0 10*3/uL Normal <0.1 [facility] Comment on above: Performed By: #### L [id number] ####Fuel Oil Clerk: EMILIA HAGEN ([phone])[facility] (SB[facility])[address] Lymphocytes (Bld) [#/Vol] 1.0 10*3/uL Normal 1.0-4.3 [facility] Comment on above: Performed By: #### L [id number] ####[employer]uel [employer] Clerk: EMILIA HAGEN ([id number])[facility] [place] ([facility])[address] Lymphocytes/100 WBC (Bld) 15.1 % Normal 15.0-45.0 [facility] Comment on above: Performed By: #### L [id number] ####Fuel Oil Clerk: EMILIA HAGEN ([phone])[facility] [place] ([facility])[address] MCH (RBC) [Entitic mass] 28.2 pg Normal 26.0-34.0 [facility] Comment on above: Performed By: #### L [id number] ####Fuel Oil Clerk: EMILIA HAGEN ([id number])[facility] ([facility])[address] MCHC 33.3 % Normal 30.5-36.0 [facility] Comment on above: Performed By: #### L [id number] ####Fuel [employer] Clerk: EMILIA HAGEN ([id number])[facility] ([facility])[address] MCV (RBC) [Entitic vol] 84.6 fL Normal 77.0-99.0 [facility] Comment on above: Performed By: #### L [id number] ####Fuel Oil Clerk: EMILIA HAGEN ([id number])[facility] ([facility])[address] Monocytes (Bld) [#/Vol] 0.3 10*3/uL Normal 0.0-0.9 [facility] Comment on above: Performed By: #### L [id number] ####Fuel Oil Clerk: EMILIA HAGEN ([phone])[facility] [place] ([facility])[address] Monocytes/100 WBC (Bld) 4.3 % Low 5.0-13.0 [facility] Comment on above: Performed By: #### L [id number] ####Fuel Oil Clerk: EMILIA HAGEN ([phone])[facility] ([facility])[address] NEUTROPHILS ABSOLUTE 5.5 10*3/uL Normal 1.8-7.5 [facility] Comment on above: Performed By: #### L [id number] ####Fuel Oil Clerk: EMILIA HAGEN ([phone])[facility] ([facility])[address] Neutrophils/100 WBC (Bld) 80.1 % Normal 38.0-82.0 [facility] Comment on above: Performed By: #### L [id number] ####Fuel Oil Clerk: EMILIA HAGEN ([id number])[facility] [place] ([facility])[address] NRBC 0.0 /100 WBCs Normal 0.0-2.0 [facility] Comment on above: Performed By: #### L [id number] ####Fuel Oil Clerk: EMILIA HAGEN ([phone])[facility] [place] ([facility])[address] Platelet mean volume (Bld) [Entitic vol] 10.4 fL Normal 9.0-12.7 [facility] Comment on above: Performed By: #### L [id number] ####Fuel Oil Clerk: EMILIA HAGEN ([phone])[facility] ([facility])[address] Platelets (Bld) [#/Vol] 191 10*3/uL Normal 140-440 [facility] Comment on above: Performed By: #### L [id number] ####Fuel Oil Clerk: EMILIA HAGEN ([id number])[facility] ([facility])[address] RBC (Bld) [#/Vol] 4.75 10*6/uL Normal 3.80-5.20 [facility] Comment on above: Performed By: #### L [id number] ####Fuel Oil Clerk: EMILIA HAGEN ([id number])[facility] ([facility])[address] WBC (Bld) [#/Vol] 6.9 10*3/uL Normal 3.6-10.7 [facility] Comment on above: Performed By: #### L [id number] ####Fuel Oil Clerk: EMILIA HAGEN ([phone])[facility] ([facility])[address] CKon 10-07-2024 CK [Catalytic activity/Vol] 56 U/L Normal 30-185 [facility] Comment on above: Performed By: #### L AB106, [id number], LAB99, LAB20, LAB62, LAB61, LAB15, [id number] ####Fuel [employer] Clerk: EMILIA HAGEN ([id number])[facility] VALENTEJACKSONN (SBHLAB)[address] CK [Catalytic activity/Vol]o n 10-07-2024 Interpretation and review of laboratory results Normal [facility] COMPLETE URINALYSIS WITH REF STEVE TO FAYon 10-07-2024 BILIRUBIN, TOTAL PRESENCE IN URINE Negative Normal Negative [facility] Comment on above: Performed By: #### L [id number] ####Fuel Oil Clerk: EMILIA HAGEN ([id number])[facility] ([facility])[address] Clarity (U) Clear Normal Clear [facility] Comment on above: Performed By: #### L [id number] ####Fuel Oil Clerk: EMILIA HAGEN ([id number])[facility] ([facility])[address] Color (U) Colorless Normal Lt. Yellow [facility] Comment on above: Performed By: #### L [id number] ####Fuel Oil Clerk: EMILIA HAGEN ([id number])[facility] ([facility])[address] GLUCOSE (MG/DL) IN URINE Normal Normal Normal (<70) [facility] Comment on above: Performed By: #### L [id number] ####Fuel Oil Clerk: EMILIA HAGEN ([phone])[facility] ([facility])[address] HEMOGLOBIN PRESENCE IN URINE Negative Normal Negative [facility] Comment on above: Performed By: #### L [id number] ####Fuel Oil Clerk: EMILIA HAGEN ([id number])[facility] ([facility])[address] Ketones Ql (U) 10 mg/dL Abnormal Negative [facility] Comment on above: Performed By: #### L [id number] ####Fuel Oil Clerk: EMILIA HAGEN ([id number])[facility] ([facility])[address] LEUKOCYTE ESTERASE PRESENCE IN URINE BY TEST STRIP Negative Normal Negative [facility] Comment on above: Performed By: #### L [id number] ####Fuel Oil Clerk: EMILIA HAGEN ([phone])[facility] ([facility])[address] NITRITE PRESENCE IN URINE Negative Normal Negative [facility] Comment on above: Performed By: #### L [id number] ####Fuel [employer] Clerk: EMILIA HAGEN ([phone])[facility] (SBAB)[address] pH (U) 6.5 [pH] Normal 5.0-8.0 [facility] Comment on above: Performed By: #### L [id number] ####[employer] Clerk: EMILIA HAGEN ([phone])[facility] ([facility])[address] [place] [address] Protein (U) [Mass/Vol] Negative Normal Negative [facility] Comment on above: Performed By: #### L [id number] ####[employer] Clerk: EMILIA HAGEN ([phone])[facility] ([facility])[address] [place] [address] Specific gravity (U) [Rel density] 1.015 Normal 1.005-1.030 [facility] Comment on above: Result Comment: YESENIA R COMMENTS:A specimen with <=10 WBC is not consistent with inflammation. This specimen will not reflex to a urine culture. Performed By: #### L [id number] ####[employer] Clerk: EMILIA HAGEN ([id number])[facility] ([facility])[address] UROBILINOGEN (MG/DL) IN URINE Normal Normal Normal (0-1) [facility] Comment on above: Performed By: #### L [id number] ####Fuel Oil Clerk: EMILIA HAGEN ([id number])[facility] ([facility])[address] CORTISOLon 10-07-2024 CORTISOL 9.6 ug/dL Normal 3.7-19.4 [facility] Comment on above: Result Comment: ORDE R COMMENTS:Before 10am 4.5-22.7 ug/dLAfter 5pm 1.7-14.1 ug/dL Performed By: #### L AB106, [id number], LAB99, LAB20, LAB62, LAB61, LAB15, [id number] ####Fuel Oil Clerk: EMILIA HAGEN ([id number])[facility] ([facility])[address] [place] [address] ED Nursing Noteon 10-07-2024 ED Nursing Note Normal [facility] ED Provider Noteon ED Provider Note Normal [facility] HCG QUALITATIVE URINEon Beta HCG ( test) Ql (U) Negative Normal Negative [facility] Comment on above: Result Comment: Plea se note: Very dilute urine specimens, as indicated by a low specific gravity, may not contain inventory representative levels of hCG. If is still suspected, a first morning urine specimen should be collected 48 hours later and tested.ORDER COMMENTS: is the most common reason for HCG in urine, although choriocarcinoma, hydatidiform mole, and certain nontrophoblastic malignancies also result in detectable urinary HCG levels. Sensitivity = 20mIU/mL. Performed By: #### L [id number] ####Fuel Oil Clerk: EMILIA HAGEN ([id number])[facility] ([facility])[address] [place] [address] HEPATIC FUNCTION PANELon Albumin [Mass/Vol] 4.1 g/dL Normal 3.5-5.0 [facility] Comment on above: Performed By: #### L AB106, [id number], LAB99, LAB20, LAB62, LAB61, LAB15, [id number] ####Fuel Oil Clerk: EMILIA HAGEN ([id number])[facility] ([facility])[address] [place] [address] ALP [Catalytic activity/Vol] 54 U/L Normal 40-150 [facility] Comment on above: Performed By: #### L AB106, [id number], LAB99, LAB20, LAB62, LAB61, LAB15, [id number] ####Fuel Oil Clerk: EMILIA HIEU ([id number])[facility] ([facility])[address] [place] [address] ALT [Catalytic activity/Vol] 15 U/L Normal <30 [facility] Comment on above: Performed By: #### L AB106, [id number], LAB99, LAB20, LAB62, LAB61, LAB15, [id number] ####Fuel Oil Clerk: EMILIA HIEU ([id number])[facility] ([facility])[address] [place] [address] AST [Catalytic activity/Vol] 33 U/L Normal <34 [facility] Comment on above: Performed By: #### L AB106, [id number], LAB99, LAB20, LAB62, LAB61, LAB15, [id number] ####Fuel Oil Clerk: EMILIA DE DIOSARJUN ([id number])[facility] ([facility])[address] [place] [address] Bilirubin [Mass/Vol] 0.6 mg/dL Normal <1.2 [facility] Comment on above: Performed By: #### L AB106, [id number], LAB99, LAB20, LAB62, LAB61, LAB15, [id number] ####Fuel Oil Clerk: EMILIA DE DIOSARJUN ([id number])[facility] ([facility])[address] [place] [address] Bilirubin.indirect [Mass/Vol] 0.2 mg/dL Normal <0.5 [facility] Comment on above: Performed By: #### L AB106, [id number], LAB99, LAB20, LAB62, LAB61, LAB15, [id number] ####Fuel Oil Clerk: EMILIA HIEU ([id number])[facility] ([facility])[address] [place] [address] Protein [Mass/Vol] 7.1 g/dL Normal 6.4-8.3 [facility] Comment on above: Result Comment: Seru m protein values are higher than plasma values. Samples from recumbent persons are lower by up to 0.5 g/dL as compared to ambulatory persons. After 60 years values are lower by up to 0.2 g/dL. Performed By: #### L AB106, [id number], LAB99, LAB20, LAB62, LAB61, LAB15, [id number] ####Fuel Oil Clerk: EMILIA HAGEN ([id number])[facility] ([facility])[address] HIGH SENSITIVITY TROPONIN, S ERIAL BASELINEon 10-07-2024 TROPONIN HS SERIAL BASELINE <3 Normal <=14 [facility] Comment on above: Result Comment: In i ndividuals presenting with symptoms > 2h, a baseline troponin <= 5 ng/L suggests acutecardiac injury is unlikely and further serial testing is generally not indicated. Performed By: #### L AB106, [id number], LAB99, LAB20, LAB62, LAB61, LAB15, [id number] ####Fuel Oil Clerk: EMILIA HAGEN ([id number])[facility] ([facility])[address] HIGH SENSITIVITY TROPONIN, S ERIAL, SECOND TESTon 10-07-2024 2H TROPONIN HS (SERIAL 2ND TROPONIN) <3 Normal <=14 [facility] Comment on above: Result Comment: Delt a value was unable to be calculated as both baseline and serial troponin tests were below the level of quantitation. As both baseline and 2h troponin values are below the level of quantitation, acute cardiac injury is unlikely. Performed By: #### L [id number] ####Fuel Oil Clerk: EMILIA HAGEN ([id number])[facility] ([facility])[address] [place] [address] Hepatic function 2000 panelo n 10-07-2024 Albumin [Mass/Vol] 4.1 g/dL 3.5 - 5.0 g/dL [facility] ALP [Catalytic activity/Vol] 54 U/L 40 - 150 U/L [facility] ALT [Catalytic activity/Vol] 15 U/L NINF - 30 U/L [facility] AST [Catalytic activity/Vol] 33 U/L NINF - 34 U/L [facility] Bilirubin [Mass/Vol] 0.6 mg/dL NINF - 1.2 mg/dL [facility] Bilirubin.conjugated [Mass/Vol] 0.2 mg/dL NINF - 0.5 mg/dL [facility] Interpretation and review of laboratory results Normal [facility] Protein [Mass/Vol] 7.1 g/dL 6.4 - 8.3 g/dL [facility] Comment on above: Serum protein values are higher than plasma values. Samples from recumbent persons are lower by up to 0.5 g/dL as compared to ambulatory persons. After 60 years values are lower by up to 0.2 g/dL. [facility] LIPASEon 10-07-2024 Lipase [Catalytic activity/Vol] 14 U/L Normal <55 [facility] Comment on above: Performed By: #### L AB106, [id number], LAB99, LAB20, LAB62, LAB61, LAB15, [id number] ####Fuel Oil Clerk: EMILIA HAGEN ([id number])[facility] ([facility])[address] [place] [address] Laboratory - Chemistry and C hemistry - challengeon 10-07-2024 Cortisol [Mass/Vol] 9.6 ug/dL 3.7 - 19 .4 ug/dL [facility] CK [Catalytic activity/Vol] 56 U/L 30 - 185 U/L [facility] Lipase [Catalytic activity/Vol] 14 U/L NINF - 55 U/L [facility] Magnesium [Mass/Vol] 2 mg/dL 1.6 - 2 .6 mg/dL [facility] Laboratory - Chemistry and C hemistry - challengeOrdered By: Norman Pacheco on 10-07-2024 Beta HCG ( test) Ql Negative Negative [facility] Comment on above: Please note: Very di lute urine specimens, as indicated by a low specific gravity, may not contain inventory representative levels of hCG. If is still suspected, a first morning urine specimen should be collected 48 hours later and tested. Beta HCG ( test) Ql (U) is the most common reason for HCG in urine, although choriocarcinoma, hydatidiform mole, and certain nontrophoblastic malignancies also result in detectable urinary HCG levels. Sensitivity = 20mIU/mL. [facility] DNsolution Lipase [Catalytic activity/V ol]on 10-07-2024 Interpretation and review of laboratory results Normal [facility] MAGNESIUMon 10-07-2024 Magnesium [Mass/Vol] 2.0 mg/dL Normal 1.6-2.6 [facility] Comment on above: Result Comment: YESENIA Melendez COMMENTS:Higher values can be expected in females during menses. Performed By: #### L AB106, [id number], LAB99, LAB20, LAB62, LAB61, LAB15, [id number] ####Fuel Oil Clerk: EMILIA HAGEN ([id number])[facility] ([facility])[address] [place] [address] Magnesium [Mass/Vol]on 10-07 Interpretation and review of laboratory results Normal [facility] Higher values can be expected in females during menses. [facility] NT PRO BNPon 10-07-2024 Natriuretic peptide B (Bld) [Mass/Vol] 29 pg/mL Normal <125 [facility] Comment on above: Performed By: #### L AB106, [id number], LAB99, LAB20, LAB62, LAB61, LAB15, [id number] ####Fuel Oil Clerk: EMILIA HAGEN ([id number])[facility] ([facility])[address] [place] [address] Natriuretic peptide B [Mass/ Vol]on 10-07-2024 Interpretation and review of laboratory results Normal [facility] Natriuretic peptide B (Bld) [Mass/Vol] 29 pg/mL NINF - 125 pg/mL [facility] No Panel Informationon 10-07 2h Troponin HS (Serial 2nd Troponin) ng/L NINF - 14 ng/L [facility] Comment on above: Delta value was unab le to be calculated as both baseline and serial troponin tests were below the level of quantitation. As both baseline and 2h troponin values are below the level of quantitation, acute cardiac injury is unlikely. Interpretation and review of laboratory results Normal [facility] Interpretation and review of laboratory results Normal [facility] Troponin HS Serial Baseline ng/L NINF - 14 ng/L [facility] Comment on above: In individuals prese nting with symptoms > 2h, a baseline troponin <= 5 ng/L suggests acute cardiac injury is unlikely and further serial testing is generally not indicated. [facility] Interpretation and review of laboratory results Normal [facility] Before 10am 4.5-22.7 ug/dL After 5pm 1.7-14.1 ug/dL [facility] No Panel InformationOrdered By: Norman Pacheco on 10-07-2024 [facility] Urinalysis complete panel (U )Ordered By: Kandy Lea on 10-07-2024 Bilirubin Ql (U) Negative Negative mg/dL [facility] Clarity (U) Clear Clear [facility] Color (U) Colorless Lt. Yellow [facility] Glucose Ql (U) Normal Normal (<70) mg/dL [facility] Hemoglobin Ql (U) Negative Negative mg/dL [facility] Interpretation and review of laboratory results Abnormal [facility] Ketones (U) [Mass/Vol] 10 mg/dL Abnormal Negative [facility] Leukocyte esterase Test strip Ql (U) Negative Negative Prabhu/uL [facility] Nitrite Ql (U) Negative Negative [facility] pH (U) 6.5 [pH] 5.0 - 8.0 pH [facility] Protein (U) [Mass/Vol] Negative Negat tyson mg/dL [facility] Specific gravity (U) [Rel density] 1.015 1.005 - 1.030 [facility] Urobilinogen (U) [Mass/Vol] Normal Normal (0-1) mg/dL [facility] A specimen with <=10 WBC is not consistent with inflammation. This specimen will not reflex to a urine culture. [facility] 36on 10-06-2024 36 Normal [facility] BASIC METABOLIC PANELon 09-07 Anion gap [Moles/Vol] 12 mmol/L Normal 3-13 [facility] Comment on above: Performed By: #### L AB15, [id number] ####Fuel Oil Clerk: EMILIA HAGEN ([id number])[facility] ([facility])[address] [place] [address] Calcium [Mass/Vol] 9.1 mg/dL Normal 8.4-10.2 [facility] Comment on above: Performed By: #### L AB15, [id number] ####Fuel Oil Clerk: EMILIA HAGEN ([id number])[facility] ([facility])[address] Chloride [Moles/Vol] 106 mmol/L Normal 98-107 [facility] Comment on above: Performed By: #### L AB15, [id number] ####Fuel Oil Clerk: EMILIA HAGEN ([id number])[facility] ([facility])[address] CO2 [Moles/Vol] 23 mmol/L Normal 22-29 [facility] Comment on above: Performed By: #### L AB15, [id number] ####Fuel Oil Clerk: EMILIA HAGEN ([id number])[facility] ([facility])[address] Creatinine [Mass/Vol] 0.86 mg/dL Normal 0.57-1.11 [facility] Comment on above: Performed By: #### L AB15, [id number] ####Fuel Oil Clerk: EMILIA HAGEN ([id number])[facility] ([facility])[address] GLOMERULAR FILTRATION RATE ML/MIN/1.73 SQ M.PREDICTED >90.0 Normal >60.0 [facility] Comment on above: Result Comment: Calc ulation based on the Chronic Kidney Disease Epidemiology Collaboration (CKD-EPI) equation refit without adjustment for race Performed By: #### L AB15, [id number] ####Fuel Oil Clerk: EMILIA HAGEN ([id number])[facility] ([facility])[address] Glucose [Mass/Vol] 124 mg/dL High 74-100 [facility] Comment on above: Performed By: #### L AB15, [id number] ####Fuel Oil Clerk: EMILIA HAGEN ([id number])[facility] ([facility])[address] [place] [address] [place] Potassium [Moles/Vol] 3.4 mmol/L Low 3.5-5.1 [facility] Comment on above: Result Comment: Plas ma potassium values may be up to 0.5 mmol/L lower than serum values. Performed By: #### L AB15, [id number] ####Fuel Oil Clerk: EMILIA HAGEN ([phone])[facility] ([facility])[address] [place] [address] Sodium [Moles/Vol] 141 mmol/L Normal 136-145 [facility] Comment on above: Performed By: #### L AB15, [id number] ####Fuel Oil Clerk: EMILIA HAGEN ([id number])[facility] ([facility])[address] Urea nitrogen [Mass/Vol] 10 mg/dL Normal 8-21 [facility] Comment on above: Performed By: #### L AB15, [id number] ####Fuel Oil Clerk: EMILIA HAGEN ([id number])[facility] ([facility])[address] [place] [address] BLOOD CULTUREon 10-05-2024 Bacteria identified Cx Nom (Bld) Normal [facility] Comment on above: Performed By: #### L [id number] ####Fuel Oil Clerk: ALBERTINA SAUNDERS ([id number])[facility] ([facility]LAB[address] BLOOD GAS, VENOUSon 10-06-19 25 AMOUNT OF OXYGEN 0 Normal [facility] Comment on above: Result Comment: YESENIA Melendez COMMENTS:Assessment of oxygenation is best done with an arterial blood gas determination. Reference ranges for pO2, bicarbonate, and base excess are for mixed venous blood. Specimens drawn from a peripheral vein will often have higher values. Performed By: #### L AB79 ####Fuel Oil Clerk: EMILIA HAGEN ([id number])[facility] ([facility])[address] [place] [address] Base excess Calc (BldV) [Moles/Vol] -1.2000 mmol/L Normal -3.0-3.0 [facility] Comment on above: Performed By: #### L AB79 ####Fuel Oil Clerk: EMILIA HAGEN ([id number])[facility] ([facility])[address] [place] [address] [place] CO2 [Moles/Vol] 24.9 mmol/L Normal 23.0-30.0 [facility] Comment on above: Performed By: #### L AB79 ####Fuel Oil Clerk: EMILIA HAGEN ([phone])[facility] [place] ([facility])[address] [place] [address] [place] HCO3 (Bld) [Moles/Vol] 23.7 mmol/L Normal 21.0-30.0 [facility] Comment on above: Performed By: #### L AB79 ####Fuel Oil Clerk: EMILIA HAGEN ([id number])[facility] ([facility])[address] Hemoglobin (Bld) [Mass/Vol] 14.3 g/dL Normal Screen only [facility] Comment on above: Performed By: #### L AB79 ####Fuel Oil Clerk: EMILIA HAGEN ([phone])[facility] ([facility])[address] [place] [address] [place] OXYGEN (MM HG) IN VENOUS BLOOD 41.0 mm Hg Normal [facility] Comment on above: Performed By: #### L AB79 ####Fuel Oil Clerk: EMILIA HAGEN ([id number])[facility] ([facility])[address] OXYGEN SATURATION (%) IN VENOUS BLOOD 78.1 % Normal [facility] Comment on above: Performed By: #### L AB79 ####Fuel Oil Clerk: EMILIA HAGEN ([id number])[facility] [place] ([facility])[address] [place] [address] [place] PCO2, CLEM 40.5 mm Hg Normal 35.0-53.0 [facility] Comment on above: Performed By: #### L AB79 ####Fuel Oil Clerk: EMILIA HAGEN ([phone])[facility] ([facility])[address] [place] [address] [place] PH VENOUS 7.385 Normal 7.320-7.420 [facility] Comment on above: Performed By: #### L AB79 ####Fuel Oil Clerk: EMILIA HAGEN ([id number])[facility] ([facility])[address] SOURCE OF OXYGEN None (Room Air) Normal [facility] Comment on above: Performed By: #### L AB79 ####Fuel Oil Clerk: EMILIA HAGEN ([phone])[facility] ([facility])[address] Basic metabolic 1998 panelon 10-05-2024 Anion gap [Moles/Vol] 12 mmol/L 3 - 13 mmol/L [facility] Calcium [Mass/Vol] 9.1 mg/dL 8.4 - 10. 2 mg/dL [facility] Chloride [Moles/Vol] 106 mmol/L 98 - 10 7 mmol/L [facility] CO2 [Moles/Vol] 23 mmol/L 22 - 29 mmol/L [facility] Creatinine [Mass/Vol] 0.86 mg/dL 0.57 - 1.11 mg/dL [facility] GFR/1.73 sq M.predicted (S/P/Bld) [Vol rate/Area] - PINF [facility] Comment on above: Calculation based on the Chronic Kidney Disease Epidemiology Collaboration (CKD-EPI) equation refit without adjustment for race Glucose [Mass/Vol] 124 mg/dL High 74 - 100 mg/dL [facility] Interpretation and review of laboratory results Abnormal [facility] Potassium [Moles/Vol] 3.4 mmol/L Low 3.5 - 5.1 mmol/L [facility] Comment on above: Plasma potassium eliezer ues may be up to 0.5 mmol/L lower than serum values. Sodium [Moles/Vol] 141 mmol/L 136 - 145 mmol/L [facility] Urea nitrogen [Mass/Vol] 10 mg/dL 8 - 21 mg/dL [facility] CBC W Auto Differential pane l (Bld)on 10-05-2024 Basophils (Bld) [#/Vol] 0 10*3/uL 0.0 - 0.2 10*3/uL [facility] Basophils/100 WBC (Bld) 0.6 % 0.0 - 2.0 % [facility] Eosinophils (Bld) [#/Vol] 0 10*3/uL 0.0 - 0.5 10*3/uL [facility] Eosinophils/100 WBC (Bld) 0.7 % 0.0 - 6.0 % [facility] Erythrocyte distribution width (RBC) [Ratio] 12 % 11.5 - 15.0 % [facility] Hematocrit (Bld) [Volume fraction] 42.1 % 35.0 - 47.0 % [facility] Hemoglobin (Bld) [Mass/Vol] 14.2 g/dL 11.7 - 16.0 g/dL [facility] Immature granulocytes (Bld) [#/Vol] 0 10*3/uL NINF - 0.1 10*3/uL [facility] Immature granulocytes/100 WBC (Bld) 0.2 % 0.0 - 2.0 % [facility] Interpretation and review of laboratory results Normal [facility] Lymphocytes (Bld) [#/Vol] 1.9 10*3/uL 1.0 - 4.3 10*3/uL [facility] Lymphocytes/100 WBC (Bld) 35.1 % 15.0 - 45.0 % [facility] MCH (RBC) [Entitic mass] 28.2 pg 26.0 - 34.0 pg [facility] MCHC (RBC) [Mass/Vol] 33.7 % 30.5 - 36.0 % [facility] MCV (RBC) [Entitic vol] 83.7 fL 77.0 - 99.0 fL [facility] Monocytes (Bld) [#/Vol] 0.3 10*3/uL 0.0 - 0.9 10*3/uL [facility] Monocytes/100 WBC (Bld) 5.7 % 5.0 - 13.0 % [facility] Neutrophils (Bld) [#/Vol] 3.1 10*3/uL 1.8 - 7.5 10*3/uL [facility] Neutrophils/100 WBC (Bld) 57.7 % 38.0 - 82.0 % [facility] Nucleated RBC/100 WBC (Bld) [Ratio] 0 % [facility] Platelet mean volume (Bld) [Entitic vol] 10.4 fL 9.0 - 12.7 fL [facility] Platelets (Bld) [#/Vol] 204 10*3/uL 140 - 440 10*3/uL [facility] RBC (Bld) [#/Vol] 5.03 10*6/uL 3.80 - 5.2 0 10*6/uL [facility] WBC (Bld) [#/Vol] 5.4 10*3/uL 3.6 - 10.7 10*3/uL [facility] CBC WITH AUTO DIFFERENTIALon 10-05-2024 Basophils (Bld) [#/Vol] 0.0 10*3/uL Normal 0.0-0.2 [facility] Comment on above: Performed By: #### L [id number] ####Fuel Oil Clerk: EMILIA HAGEN ([id number])[facility] ([facility])[address] [place] [address] Basophils/100 WBC (Bld) 0.6 % Normal 0.0-2.0 [facility] Comment on above: Performed By: #### L [id number] ####Fuel Oil Clerk: EMILIA HAGEN ([id number])[facility] ([facility])[address] [place] [address] Eosinophils (Bld) [#/Vol] 0.0 10*3/uL Normal 0.0-0.5 [facility] Comment on above: Performed By: #### L [id number] ####Fuel Oil Clerk: EMILIA HAGEN ([id number])[facility] ([facility])[address] [place] [address] Eosinophils/100 WBC (Bld) 0.7 % Normal 0.0-6.0 [facility] Comment on above: Performed By: #### L [id number] ####Fuel Oil Clerk: EMILIA HAGEN ([id number])[facility] [place] ([facility])[address] [place] [address] Erythrocyte distribution width (RBC) [Ratio] 12.0 % Normal 11.5-15.0 [facility] Comment on above: Performed By: #### L [id number] ####Fuel Oil Clerk: EMILIA HAGEN ([id number])[facility] [place] ([facility])[address] Hematocrit (Bld) [Volume fraction] 42.1 % Normal 35.0-47.0 [facility] Comment on above: Performed By: #### L [id number] ####Fuel Oil Clerk: EMILIA HAGEN ([id number])[facility] ([facility])[address] [place] [address] Hemoglobin (Bld) [Mass/Vol] 14.2 g/dL Normal 11.7-16.0 [facility] Comment on above: Performed By: #### L [id number] ####Fuel Oil Clerk: EMILIA HAGEN ([id number])[facility] [place] [address] IMMATURE GRANS % 0.2 % Normal 0.0-2.0 [facility] Comment on above: Performed By: #### L [id number] ####Fuel Oil Clerk: EMILIA HAGEN ([id number])[facility] ([facility])[address] [place] [address] IMMATURE GRANS ABSOLUTE 0.0 10*3/uL Normal <0.1 [facility] Comment on above: Performed By: #### L [id number] ####Fuel Oil Clerk: EMILIA HAGEN ([phone])[facility] ([facility])[address] [place] [address] Lymphocytes (Bld) [#/Vol] 1.9 10*3/uL Normal 1.0-4.3 [facility] Comment on above: Performed By: #### L [id number] ####Fuel Oil Clerk: EMILIA HAGEN ([id number])[facility] ([facility])[address] [place] [address] Lymphocytes/100 WBC (Bld) 35.1 % Normal 15.0-45.0 [facility] Comment on above: Performed By: #### L [id number] ####Fuel Oil Clerk: EMILIA HAGEN ([id number])[facility] ([facility])[address] MCH (RBC) [Entitic mass] 28.2 pg Normal 26.0-34.0 [facility] Comment on above: Performed By: #### L [id number] ####Fuel Oil Clerk: EMILIA HAGEN ([id number])[facility] ([facility])[address] MCHC 33.7 % Normal 30.5-36.0 [facility] Comment on above: Performed By: #### L [id number] ####Fuel Oil Clerk: EMILIA HAGEN ([id number])[facility] [place] ([facility])[address] MCV (RBC) [Entitic vol] 83.7 fL Normal 77.0-99.0 [facility] Comment on above: Performed By: #### L [id number] ####Fuel Oil Clerk: EMILIA HAGEN ([id number])[facility] [place] ([facility])[address] Monocytes (Bld) [#/Vol] 0.3 10*3/uL Normal 0.0-0.9 [facility] Comment on above: Performed By: #### L [id number] ####[employer]uel [employer] Clerk: EMILIA HAGEN ([phone])[facility] ([facility])[address] Monocytes/100 WBC (Bld) 5.7 % Normal 5.0-13.0 [place] [facility] Comment on above: Performed By: #### L [id number] ####Fuel Oil Clerk: EMILIA HAGEN ([id number])[facility] [place] ([facility] NEUTROPHILS ABSOLUTE 3.1 10*3/uL Normal 1.8-7.5 [facility] Comment on above: Performed By: #### L [id number] ####Fuel Oil Clerk: EMILIA HAGEN ([id number])[facility] [place] ([facility] Neutrophils/100 WBC (Bld) 57.7 % Normal 38.0-82.0 [facility] Comment on above: Performed By: #### L [id number] ####Fuel Oil Clerk: EMILIA HAGEN ([phone])[facility] [place] (SBHLAB)[address] NRBC 0.0 /100 WBCs Normal 0.0-2.0 [facility] Comment on above: Performed By: #### L [id number] ####Fuel Oil Clerk: EMILIA HAGEN ([id number])[facility] [place] ([facility] Platelet mean volume (Bld) [Entitic vol] 10.4 fL Normal 9.0-12.7 [facility] Comment on above: Performed By: #### L [id number] ####Fuel Oil Clerk: EMILIA HAGEN ([id number])[facility] [place] ([facility]155 [place] [address] [place] Platelets (Bld) [#/Vol] 204 10*3/uL Normal 140-440 [facility] Comment on above: Performed By: #### L [id number] ####Fuel Oil Clerk: EMILIA HAGEN ([id number])[facility] [place] ([facility])[address] [place] [address] [place] RBC (Bld) [#/Vol] 5.03 10*6/uL Normal 3.80-5.20 [facility] Comment on above: Performed By: #### L [id number] ####Fuel Oil Clerk: EMILIA HAGEN ([id number])[facility] [place] ([facility])[address] [place] [address] [place] WBC (Bld) [#/Vol] 5.4 10*3/uL Normal 3.6-10.7 [facility] Comment on above: Performed By: #### L [id number] ####Fuel Oil Clerk: EMILIA HAGEN ([id number])[facility] [place] ([facility])[address] COMPLETE URINALYSIS WITH REF STEVE TO CULTURE 10-05-2024 BILIRUBIN, TOTAL PRESENCE IN URINE Negative Normal Negative [facility] Comment on above: Performed By: #### L [id number] ####Fuel Oil Clerk: EMILIA HAGEN ([phone])[facility] (SBHLAB)[address] Clarity (U) Clear Normal Clear [facility] Comment on above: Performed By: #### L [id number] ####Fuel Oil Clerk: EMILIA HAGEN ([id number])[facility] ([facility]HL[facility])[address] Color (U) Light Yellow Normal Lt. Yellow [facility] Comment on above: Performed By: #### L [id number] ####Fuel Oil Clerk: EMILIA HAGEN ([id number])[facility] ([facility]HL[facility])[address] GLUCOSE (MG/DL) IN URINE Normal Normal Normal (<70) [facility] Comment on above: Performed By: #### L [id number] ####Fuel Oil Clerk: EMILIA HAGEN ([id number])[facility] ([facility])[address] HEMOGLOBIN PRESENCE IN URINE Negative Normal Negative [facility] Comment on above: Performed By: #### L [id number] ####Fuel Oil Clerk: EMILIA HAGEN ([id number])[facility] ([facility])[address] Ketones Ql (U) Negative Normal Negative [facility] Comment on above: Performed By: #### L [id number] ####Fuel Oil Clerk: EMILIA HAGEN ([id number])[facility] ([facility])[address] LEUKOCYTE ESTERASE PRESENCE IN URINE BY TEST STRIP Negative Normal Negative [facility] Comment on above: Performed By: #### L [id number] ####Fuel Oil Clerk: EMILIA HAGEN ([phone])[facility] ([facility])[address] NITRITE PRESENCE IN URINE Negative Normal Negative [facility] Comment on above: Performed By: #### L [id number] ####Fuel Oil Clerk: EMILIA CHONGYONATAN ([id number])[facility] ([facility])[address] pH (U) 5.5 [pH] Normal 5.0-8.0 [facility] Comment on above: Performed By: #### L [id number] ####Fuel Oil Clerk: EMILIA HAGEN ([id number])[facility] ([facility] Protein (U) [Mass/Vol] Negative Normal Negative [facility] Comment on above: Performed By: #### L [id number] ####Fuel Oil Clerk: EMILIA HAGEN ([id number])[facility] ([facility])[address] [place] [address] Specific gravity (U) [Rel density] 1.012 Normal 1.005-1.030 [facility] Comment on above: Result Comment: YESENIA Melendez COMMENTS:A specimen with <=10 WBC is not consistent with inflammation. This specimen will not reflex to a urine culture. Performed By: #### L [id number] ####Fuel Oil Clerk: EMILIA HAGEN ([id number])[facility] ([facility])[address] UROBILINOGEN (MG/DL) IN URINE Normal Normal Normal (0-1) [facility] Comment on above: Performed By: #### L [id number] ####Fuel Oil Clerk: EMILIA HAGEN ([id number])[facility] ([facility])[address] CHEST ANGIOGRAM W AND/OR WO IV CONTRASTon 10-05-2024 CT CHEST ANGIOGRAM W AND/OR WO IV CONTRAST Normal [facility] CTA Chest vessels WO and W c ontrast Isabel 10-05-2024 No acute pulmonary embolism. No acute cardiopulmonary disease. 3.8 cm left superolateral breast fluid collection. This finding likely represents a postop seroma from prior lumpectomy. The sterility of fluid collection cannot be entirely evaluated on CT. Suggest follow-up left breast ultrasound. Report Dictated on Electronically Signed By: Danya Downing DO Electronically Signed Date/Time: 10/05/2024 5:36 PM EDT [facility] Patient Name: MACHELLE MAY : 1995 Exam Date/Time: 10/05/2024 15:40 Procedure: CT CHEST ANGIOGRAM W AND/OR WO IV CONTRAST Ordering Provider: KAUR LOGAN Reason For Exam: Pulmonary embolism (PE) suspected, high prob EXAM: CT Angiography Chest With Intravenous Contrast CLINICAL INDICATION: Tachycardia, dyspnea, nausea and dizziness. Pulmonary embolism (PE) suspected, high prob. Status post left sided lumpectomy 7 weeks ago. TECHNIQUE: Axial computed tomographic angiography images of the chest with intravenous contrast. This CT exam was performed using one or more of the following dose reduction techniques: automated exposure control, adjustment of the mA and/or kV according to patient size, and/or use of iterative reconstruction technique. MIP reconstructed images were created and reviewed. COMPARISON: None. FINDINGS: PULMONARY ARTERIES: Unremarkable. No pulmonary embolism. AORTA: No acute findings. No thoracic aortic aneurysm. LUNGS AND PLEURAL SPACES: Unremarkable. No mass. No consolidation. No significant effusion. No pneumothorax. HEART: Unremarkable. No cardiomegaly. No significant pericardial effusion. No evidence of RV dysfunction. MEDIASTINUM: Residual thymic tissue in anterior mediastinum is likely benign. No axillary or mediastinal adenopathy. BONES/JOINTS: No acute fracture. No dislocation. SOFT TISSUES: Left superolateral breast fluid collection measures 3.5 x 3.8 cm. Bilateral dense breast tissues. LYMPH NODES: Unremarkable. OTHER FINDINGS: No adjacent fatty inflammatory changes are evident. [facility] Danya Downing DO - 10/05/2024 Patient Name: MACHELLE MAY : 1995 Exam Date/Time: 10/05/2024 15:40 Procedure: CT CHEST ANGIOGRAM W AND/OR WO IV CONTRAST Ordering Provider: KAUR LOGAN Reason For Exam: Pulmonary embolism (PE) suspected, high prob EXAM: CT Angiography Chest With Intravenous Contrast CLINICAL INDICATION: Tachycardia, dyspnea, nausea and dizziness. Pulmonary embolism (PE) suspected, high prob. Status post left sided lumpectomy 7 weeks ago. TECHNIQUE: Axial computed tomographic angiography images of the chest with intravenous contrast. This CT exam was performed using one or more of the following dose reduction techniques: automated exposure control, adjustment of the mA and/or kV according to patient size, and/or use of iterative reconstruction technique. MIP reconstructed images were created and reviewed. COMPARISON: None. FINDINGS: PULMONARY ARTERIES: Unremarkable. No pulmonary embolism. AORTA: No acute findings. No thoracic aortic aneurysm. LUNGS AND PLEURAL SPACES: Unremarkable. No mass. No consolidation. No significant effusion. No pneumothorax. HEART: Unremarkable. No cardiomegaly. No significant pericardial effusion. No evidence of RV dysfunction. MEDIASTINUM: Residual thymic tissue in anterior mediastinum is likely benign. No axillary or mediastinal adenopathy. BONES/JOINTS: No acute fracture. No dislocation. SOFT TISSUES: Left superolateral breast fluid collection measures 3.5 x 3.8 cm. Bilateral dense breast tissues. LYMPH NODES: Unremarkable. OTHER FINDINGS: No adjacent fatty inflammatory changes are evident. IMPRESSION: No acute pulmonary embolism. No acute cardiopulmonary disease. 3.8 cm left superolateral breast fluid collection. This finding likely represents a postop seroma from prior lumpectomy. The sterility of fluid collection cannot be entirely evaluated on CT. Suggest follow-up left breast ultrasound. Report Dictated on Electronically Signed By: Danya Downing DO Electronically Signed Date/Time: 10/05/2024 5:36 PM EDT [facility] Radiology Study observation (narrative) [employer] CTA Chest vessels WO and W c ontrast IVOrdered By: Danya Downing on 10-05-2024 [employer] Work Phone: ECG 12-LEADon 10-05-2024 ECG 12-LEAD IMPRESSION: Sinus tachycardia Electronically Signed On 10-05-2024 23:19:57 EDT by Shani Kate Normal [facility] ECG 12-LEAD IMPRESSION: Sinus tachycardia Ventricular premature complex Electronically Signed On 10-05-2024 23:18:44 EDT by Shani Kate [facility] ED Nursing Noteon 10-05-2024 ED Nursing Note Normal [facility] ED Nursing Note Chaperoned Dr Alonzo hernandez while performing L breast examination. Normal [facility] ED Nursing Note Pt arrives with complaints of neck pain, whole body tingling, heart racing, chest tightness, and SOB. States she has a feeling like she's going to pass out. Pt had a lumpectomy about 7 weeks ago. Normal [facility] ED Provider Noteon ED Provider Note Normal [facility] ED Provider Note Normal [facility] FREE T4on 10-05-2024 Free T4 [Mass/Vol] 0.99 ng/dL Normal 0.70-1.48 [facility] Comment on above: Performed By: #### L [id number] ####Fuel Oil Clerk: EMILIA HAGEN ([id number])[facility] ([facility])[address] [place] [address] Free T4 [Mass/Vol]on 025 Free T4 Dialysis [Mass/Vol] 0.99 ng/dL 0.70 - 1.48 ng/dL [facility] Interpretation and review of laboratory results Normal [facility] HCG QUALITATIVE URINEon 09-07 Beta HCG ( test) Ql (U) Negative Normal Negative [facility] Comment on above: Result Comment: Paulie corona note: Very dilute urine specimens, as indicated by a low specific gravity, may not contain inventory representative levels of hCG. If is still suspected, a first morning urine specimen should be collected 48 hours later and tested.ORDER COMMENTS: is the most common reason for HCG in urine, although choriocarcinoma, hydatidiform mole, and certain nontrophoblastic malignancies also result in detectable urinary HCG levels. Sensitivity = 20mIU/mL. Performed By: #### L [id number] ####Fuel Oil Clerk: EMILIA HAGEN ([id number])[facility] ([facility])[address] [place] [address] LACTIC ACID WITH REFLEXon Lactate [Moles/Vol] 1.3 mmol/L Normal 0.5-2.2 [facility] Comment on above: Performed By: #### L [id number] ####Fuel Oil Clerk: EMILIA HAGEN ([id number])[facility] (SB[facility])[address] [place] [address] Laboratory - Chemistry and C hemistry - challengeon 10-05-2024 Magnesium [Mass/Vol] 2.1 mg/dL 1.6 - 2 .6 mg/dL [facility] Base excess Calc (BldV) [Moles/Vol] -1.2000 mmol/L -3.0 - 3.0 mmol/L [facility] CO2 (BldV) [Partial pressure] 40.5 mm[Hg] [facility] CO2 [Moles/Vol] 24.9 mmol/L 23.0 - 30.0 mmol/L [facility] HCO3 (Bld) [Moles/Vol] 23.7 mmol/L 21.0 - 30.0 mmol/L [facility] Oxygen (BldV) [Partial pressure] 41 mm[Hg] mm Hg [facility] pH (BldV) 7.385 [pH] 7.320 - 7.420 [facility] TSH Qn 0.61 m[IU]/L [facility] Lactate [Moles/Vol] 1.3 mmol/L 0.5 - 2. 2 mmol/L [facility] Laboratory - Chemistry and C hemistry - challengeOrdered By: Nic Rashid on 10-05-2024 Beta HCG ( test) Ql Negative Negative [facility] Comment on above: Please note: Very di lute urine specimens, as indicated by a low specific gravity, may not contain inventory representative levels of hCG. If is still suspected, a first morning urine specimen should be collected 48 hours later and tested. Beta HCG ( test) Ql (U) is the most common reason for HCG in urine, although choriocarcinoma, hydatidiform mole, and certain nontrophoblastic malignancies also result in detectable urinary HCG levels. Sensitivity = 20mIU/mL. [facility] Laboratory - Hematology and Cell countson 10-05-2024 Hemoglobin (Bld) [Mass/Vol] 14.3 g/dL 12.0 - 16.0 g/dl [facility] MAGNESIUMon 10-05-2024 Magnesium [Mass/Vol] 2.1 mg/dL Normal 1.6-2.6 [facility] Comment on above: Result Comment: YESENIA Melendez COMMENTS:Higher values can be expected in females during menses. Performed By: #### L [id number], [id number] ####Fuel Oil Clerk: EMILIA HAGEN ([phone])[facility] ([facility])[address] [place] [address] Magnesium [Mass/Vol]on 10-05 Interpretation and review of laboratory results Normal [facility] Higher values can be expected in females during menses. [facility] No Panel Informationon 10-05 P [place] 64 degrees [facility] [place] Interval 168 ms [facility] QRS [place] 50 degrees [facility] QRSD Interval 92 ms [facility] QT Interval 327 ms [facility] QTC Interval 443 ms [facility] T Wave [place] 26 degrees [facility] Sinus tachycardia Electronically Signed On 10-05-2024 23:19:57 EDT by Shani More MD - 10/05/2024 IMPRESSION: Sinus tachycardia Electronically Signed On 10-05-2024 23:19:57 EDT by Shani Kate [facility] Sinus tachycardia Ventricular premature complex Electronically Signed On 10-05-2024 23:18:44 EDT by Shani More MD - 10/05/2024 IMPRESSION: Sinus tachycardia Ventricular premature complex Electronically Signed On 10-05-2024 23:18:44 EDT by Shani Becki [facility] Amount Of Oxygen 0 [facility] Source Of Oxygen None (Room Air) [facility] Assessment of oxygenation is best done with an arterial blood gas determination. Reference ranges for pO2, bicarbonate, and base excess are for mixed venous blood. Specimens drawn from a peripheral vein will often have higher values. [facility] Interpretation and review of laboratory results Normal [facility] No Panel InformationOrdered By: Shani Kate on 10-05-2024 P [place] 57 degrees [facility] Work Phone: [place] Interval 136 ms [employer] Work Phone: QRS [place] 40 degrees [employer] Work Phone: QRSD Interval 102 ms [employer] Work Phone: QT Interval 314 ms [employer] Work Phone: QTC Interval 464 ms [employer] Work Phone: T Wave [place] 16 degrees [employer] Work Phone: [employer] Work Phone: No Panel InformationOrdered By: Nic Rashid on 10-05-2024 [employer] THYROID STIMULATING HORMONEo n 10-05-2024 THYROID STIMULATING HORMONE 0.61 uIU/mL Normal 0.35-4.94 [facility] Comment on above: Performed By: #### L [id number] ####Fuel Oil Clerk: EMILIA HAGEN ([phone])[facility] ([facility])[address] [place] [address] TSH Qnon 10-05-2024 Interpretation and review of laboratory results Normal [facility] Urinalysis complete panel (U )on 10-05-2024 Bilirubin Ql (U) Negative Negative mg/dL [facility] Clarity (U) Clear Clear [facility] Color (U) Light Yellow Lt. Yellow [facility] Glucose Ql (U) Normal Normal (<70) mg/dL [facility] Hemoglobin Ql (U) Negative Negative mg/dL [facility] Interpretation and review of laboratory results Normal [facility] Ketones (U) [Mass/Vol] Negative Negat tyson mg/dL [facility] Leukocyte esterase Test strip Ql (U) Negative Negative Prabhu/uL [facility] Nitrite Ql (U) Negative Negative [facility] pH (U) 5.5 [pH] 5.0 - 8.0 pH [facility] Protein (U) [Mass/Vol] Negative Negat tyson mg/dL [facility] Specific gravity (U) [Rel density] 1.012 1.005 - 1.030 [facility] Urobilinogen (U) [Mass/Vol] Normal Normal (0-1) mg/dL [facility] A specimen with <=10 WBC is not consistent with inflammation. This specimen will not reflex to a urine culture. [facility] Vital signson 10-05-2024 Heart rate 111 /min bpm [facility] Oxygen saturation in Venous blood 78.1 % [facility] Vital signsOrdered By: Skinny Kate on 10-05-2024 Heart rate 131 /min bpm [facility] Work Phone: CBC WITH AUTO DIFFERENTIALon 10-01-2024 Basophils (Bld) [#/Vol] 0.0 10*3/uL Normal 0.0-0.2 [facility] Comment on above: Performed By: #### L [id number] ####Fuel Oil Clerk: ALBERTINA SAUNDERS ([phone])[facility] ([facility]RL[facility])[address] [place] [address] [place] Basophils/100 WBC (Bld) 0.5 % Normal 0.0-2.0 [facility] Comment on above: Performed By: #### L [id number] ####Fuel Oil Clerk: ALBERTINA SAUNDERS ([id number])[facility] ([facility])[address] [place] [address] [place] Eosinophils (Bld) [#/Vol] 0.1 10*3/uL Normal 0.0-0.5 [facility] Comment on above: Performed By: #### L [id number] ####Fuel Oil Clerk: ALBERTINA SAUNDERS ([id number])[facility] ([facility])[address] [place] [address] [place] Eosinophils/100 WBC (Bld) 3.0 % Normal 0.0-6.0 [facility] Comment on above: Performed By: #### L [id number] ####Fuel Oil Clerk: ALBERTINA SAUNDERS ([phone])[facility] ([facility])[address] [place] [address] [place] Erythrocyte distribution width (RBC) [Ratio] 12.2 % Normal 11.5-15.0 [facility] Comment on above: Performed By: #### L [id number] ####Fuel Oil Clerk: ALBERTINA SAUNDERS ([phone])[facility] ([facility])[address] [place] [address] Hematocrit (Bld) [Volume fraction] 43.0 % Normal 35.0-47.0 [facility] Comment on above: Performed By: #### L [id number] ####Fuel Oil Clerk: ALBERTINA SAUNDERS ([phone])[facility] ([facility])[address] [place] [address] Hemoglobin (Bld) [Mass/Vol] 14.5 g/dL Normal 11.7-16.0 [facility] Comment on above: Performed By: #### L [id number] ####Fuel Oil Clerk: ALBERTINA SAUNDERS ([id number])[facility] ([facility])[address] [place] [address] IMMATURE GRANS % 0.3 % Normal 0.0-2.0 [facility] Comment on above: Performed By: #### L [id number] ####Fuel Oil Clerk: ALBERTINA SAUNDERS ([id number])[facility] ([facility])[address] [place] [address] IMMATURE GRANS ABSOLUTE 0.0 10*3/uL Normal <0.1 [facility] Comment on above: Performed By: #### L [id number] ####Fuel Oil Clerk: ALBERTINA SAUNDERS ([phone])[facility] ([facility])[address] [place] [address] Lymphocytes (Bld) [#/Vol] 1.3 10*3/uL Normal 1.0-4.3 [facility] Comment on above: Performed By: #### L [id number] ####Fuel Oil Clerk: ALBERTINA SAUNDERS ([id number])[facility] ([facility])[address] [place] [address] [place] Lymphocytes/100 WBC (Bld) 32.3 % Normal 15.0-45.0 [facility] Comment on above: Performed By: #### L [id number] ####Fuel Oil Clerk: ALBERTINA SAUNDERS ([phone])[facility] ([facility])[address] [place] [address] MCH (RBC) [Entitic mass] 28.7 pg Normal 26.0-34.0 [facility] Comment on above: Performed By: #### L [id number] ####Fuel Oil Clerk: ALBERTINA SAUNDERS ([phone])[facility] ([facility])[address] [place] [address] MCHC 33.7 % Normal 30.5-36.0 [facility] Comment on above: Performed By: #### L [id number] ####Fuel Oil Clerk: ALBERTINA SAUNDERS ([phone])[facility] ([facility])[address] [place] [address] MCV (RBC) [Entitic vol] 85.0 fL Normal 77.0-99.0 [facility] Comment on above: Performed By: #### L [id number] ####Fuel Oil Clerk: ALBERTINA SAUNDERS ([id number])[facility] ([facility])[address] [place] [address] Monocytes (Bld) [#/Vol] 0.3 10*3/uL Normal 0.0-0.9 [facility] Comment on above: Performed By: #### L [id number] ####Fuel Oil Clerk: ALBERTINA SAUNDERS ([id number])[facility] ([facility])[address] [place] [address] [place] Monocytes/100 WBC (Bld) 7.3 % Normal 5.0-13.0 [facility] Comment on above: Performed By: #### L [id number] ####Fuel Oil Clerk: ALBERTINA SAUNDERS ([id number])[facility] ([facility])[address] [place] [address] NEUTROPHILS ABSOLUTE 2.2 10*3/uL Normal 1.8-7.5 [facility] Comment on above: Performed By: #### L [id number] ####Fuel Oil Clerk: ALBERTINA SAUNDERS ([phone])[facility] ([facility]RL[facility])[address] [place] [address] Neutrophils/100 WBC (Bld) 56.6 % Normal 38.0-82.0 [facility] Comment on above: Performed By: #### L [id number] ####Fuel Oil Clerk: ALBERTINA SAUNDERS ([id number])[facility] ([facility])[address] [place] [address] NRBC 0.0 /100 WBCs Normal 0.0-2.0 [facility] Comment on above: Performed By: #### L [id number] ####Fuel Oil Clerk: ALBERTINA SAUNDERS ([id number])[facility] ([facility])[address] [place] [address] Platelet mean volume (Bld) [Entitic vol] 10.2 fL Normal 9.0-12.7 [facility] Comment on above: Result Comment: MPV is a calculated measurement using platelet volume ratio Performed By: #### L [id number] ####Fuel Oil Clerk: ALBERTINA SAUNDERS ([id number])[facility] ([facility])[address] [place] [address] Platelets (Bld) [#/Vol] 186 10*3/uL Normal 140-440 [facility] Comment on above: Performed By: #### L [id number] ####Fuel Oil Clerk: ALBERTINA SAUNDERS ([id number])[facility] ([facility])[address] [place] [address] RBC (Bld) [#/Vol] 5.06 10*6/uL Normal 3.80-5.20 [facility] Comment on above: Performed By: #### L [id number] ####Fuel Oil Clerk: ALBERTINA SAUNDERS ([id number])[facility]RT[facility] ([facility]RL[facility])[address] WBC (Bld) [#/Vol] 4.0 10*3/uL Normal 3.6-10.7 [facility] Comment on above: Performed By: #### L [id number] ####Fuel Oil Clerk: ALBERTINA SAUNDERS ([id number])[facility] CHAMBERLAIN RITTMAN (SWRLAB)[address] COMPREHENSIVE METABOLIC PANE Baldo 10-01-2024 Albumin [Mass/Vol] 4.0 g/dL Normal 3.5-5.0 [facility] Comment on above: Performed By: #### L AB17, [id number] ####Fuel Oil Clerk: ALBERTINA SAUNDERS ([id number])[facility] CHAMBERLAIN RITTMAN (SWRLAB)[address] ALP [Catalytic activity/Vol] 80 U/L Normal 40-150 [facility] Comment on above: Performed By: #### L AB17, [id number] ####Fuel Oil Clerk: ALBERTINA SAUNDERS ([id number])[facility] CHAMBERLAIN RITTMAN (SWRLAB)[address] ALT [Catalytic activity/Vol] 18 U/L Normal <30 [facility] Comment on above: Performed By: #### L AB17, [id number] ####Fuel Oil Clerk: ALBERTINA SAUNDERS ([id number])[facility] CHAMBERLAIN RITTMAN (SWRLAB)[address] Anion gap [Moles/Vol] 10 mmol/L Normal 3-13 [facility] Comment on above: Performed By: #### L AB17, [id number] ####Fuel Oil Clerk: ALBERTINA SAUNDERS ([id number])[facility] CHAMBERLAIN RITTMAN (SWRLAB)[address] AST [Catalytic activity/Vol] 19 U/L Normal <34 [facility] Comment on above: Performed By: #### L AB17, [id number] ####Fuel Oil Clerk: ALBERTINA SAUNDERS ([id number])[facility] CHAMBERLAIN RITTMAN (SWRLAB)[address] [place] [address] [place] Bilirubin [Mass/Vol] 0.7 mg/dL Normal <1.2 [facility] Comment on above: Performed By: #### L AB17, [id number] ####Fuel Oil Clerk: ALBERTINA SAUNDERS ([id number])[facility] CHAMBERLAIN RITTMAN (SWRLAB)[address] [place] [address] [place] Calcium [Mass/Vol] 9.0 mg/dL Normal 8.4-10.2 [facility] Comment on above: Performed By: #### L AB17, [id number] ####Fuel Oil Clerk: ALBERTINA SAUNDERS ([id number])[facility] CHAMBERLAIN RITTMAN (SWRLAB)[address] [place] [address] [place] Chloride [Moles/Vol] 107 mmol/L Normal 98-107 [facility] Comment on above: Performed By: #### L AB17, [id number] ####Fuel Oil Clerk: ALBERTINA SAUNDERS ([id number])[facility] CHAMBERLAIN RITTMAN (SWRLAB)[address] [place] [address] [place] CO2 [Moles/Vol] 24 mmol/L Normal 22-29 [facility] Comment on above: Performed By: #### L AB17, [id number] ####Fuel Oil Clerk: ALBERTINA SAUNDERS ([id number])[facility] CHAMBERLAIN RITTMAN (SWRLAB)[address] [place] [address] [place] Creatinine [Mass/Vol] 0.83 mg/dL Normal 0.57-1.11 [facility] Comment on above: Performed By: #### L AB17, [id number] ####Fuel Oil Clerk: ALBERTINA SAUNDERS ([id number])[facility] CHAMBERLAIN RITTMAN (SWRLAB)[address] [place] [address] [place] GLOMERULAR FILTRATION RATE ML/MIN/1.73 SQ M.PREDICTED >90.0 Normal >60.0 [facility] Comment on above: Result Comment: Calc ulation based on the Chronic Kidney Disease Epidemiology Collaboration (CKD-EPI) equation refit without adjustment for race Performed By: #### L AB17, [id number] ####Fuel Oil Clerk: ALBERTINA SAUNDERS ([id number])[facility] CHAMBERLAIN RITTMAN (SWRLAB)[address] [place] [address] [place] Glucose [Mass/Vol] 99 mg/dL Normal 74-100 [facility] Comment on above: Performed By: #### L AB17, [id number] ####Fuel Oil Clerk: ALBERTINA SAUNDERS ([id number])[facility] CHAMBERLAIN RITTMAN (SWRLAB)[address] [place] [address] [place] Potassium [Moles/Vol] 4.6 mmol/L Normal 3.5-5.1 [facility] Comment on above: Result Comment: [facility] potassium values may be up to 0.5 mmol/L lower than serum values. Performed By: #### L AB17, [id number] ####Fuel Oil Clerk: ALBERTINA SAUNDERS ([id number])[facility] CHAMBERLAIN RITTMAN (SWRLAB)[address] [place] [address] [place] Protein [Mass/Vol] 6.8 g/dL Normal 6.4-8.3 [facility] Comment on above: Performed By: #### L AB17, [id number] ####Fuel Oil Clerk: ALBERTINA SAUNDERS ([id number])[facility] CHAMBERLAIN RITTMAN (SWRLAB)[address] [place] [address] [place] Sodium [Moles/Vol] 141 mmol/L Normal 136-145 [facility] Comment on above: Performed By: #### L AB17, [id number] ####Fuel Oil Clerk: ALBERTINA SAUNDERS ([id number])[facility]esar BETANCOURTBULMARO RITTMAN (SWRLAB)[address] [place] [address] [place] Urea nitrogen [Mass/Vol] 12 mg/dL Normal 8-21 [facility] Comment on above: Performed By: #### L AB17, [id number] ####Fuel Oil Clerk: ALBERTINA SAUNDERS ([id number])[facility]esar BETANCOURTBULMARO RITTMAN (SWRLAB)[address] [place] [address] [place] PHOSPHORUSon 10-01-2024 Phosphate [Mass/Vol] 3.5 mg/dL Normal 2.3-4.7 [facility] Comment on above: Performed By: #### L [id number] ####Fuel Oil Clerk: ALBERTINA SAUNDERS ([id number])[facility] CHAMBERLAIN RITTMAN (SWRLAB)[address] [place] [address] PROTEIN, URINE, RANDOMon CREATININE, URINE 30.1 mg/dL Low 47.0-110.0 [facility] Comment on above: Performed By: #### L [id number] ####Fuel Oil Clerk: ALBERTINA SAUNDERS ([id number])[facility] CHAMBERLAIN RITTMAN (SWRLAB)[address] [place] [address] Result Comment: YESENIA Melendez COMMENTS:Concentration is based on a daily urine output of 1.5 L. Performed By: #### L [id number] ####Fuel Oil Clerk: ALBERTINA SAUNDERS ([id number])[facility] CHAMBERLAIN RITTMAN (SWRLAB)[address] [place] [address] TOTAL PROTEIN, UR <7 Normal <14 [facility] Comment on above: Performed By: #### L [id number] ####Fuel Oil Clerk: ALBERTINA SAUNDERS ([id number])[facility] CHAMBERLAIN RITTMAN (SWRLAB)[address] [place] [address] THYROID STIMULATING HORMONEo n 10-01-2024 THYROID STIMULATING HORMONE 1.02 uIU/mL Normal 0.35-4.94 [facility] Comment on above: Performed By: #### L AB17, [id number] ####Fuel Oil Clerk: ALBERTINA SAUNDERS ([id number])[facility] CHAMBERLAIN RITTMAN (SWRLAB)[address] [place] [address] CNOVon 09-24-2024 CNOV Office Visit ([facility] ) -------- DULCE MARIA CARTY ([id number]) 1995 F Date Time Provider Department 09/24/24 9:40 AM TARIQ SINGLETON During your visit today, we recorded the following information about you: Pulse Blood pressure Weight Height 91/minute 114/62 75.8 kg 1.702 m Tariq Singleton APRN.BUILD AND DEPLOYMENT ENGINEER 09/24/2024 10:05 AM Signed CHIEF COMPLAINT: Patient presents with: Abdominal Pain: Colon back in March unhappy with previous GI This consult was requested by No ref. provider found for an opinion regarding abdominal pain. My final recommendations will be communicated to the requesting health care provider by way of the shared medical record for internal providers or letter via the [employer] for external providers. HPI: Dulce Maria Carty is a 28 year old female who presents for Abdominal Pain (Colon back in March unhappy with previous GI). She has had some GI issues most of her life, but she started having more significant LLQ pain when she was with her second son, and it progressively worsened. She also had rectal bleeding. Her OFFICE SUPPORT ASSISTANT referred her to GI. She saw GI and had colonoscopy (at [facility]) 03/2024 that was reportedly normal other than hemorrhoids. She gets a lot of postprandial gas and bloat that feels like pressure and trapped in the upper abdomen. She feels like she needs to burp. The lower abdominal pain is a burning and constant with periods of increased intensity. She will get mild nausea at times. Appetite is good. Denies actual GERD, dysphagia. No specific food triggers that she has been able to identify. She has a BM every morning and denies any constipation or diarrhea. When , she had incomplete evacuation and she will occasionally feel that now. She is still breast feeding, so she really hasn't taken any meds. She does use stef chews that help with the belching. Niece has celiac disease. Record Review: [facility] / Outside records reviewed. History reviewed. No pertinent past medical history. PAST SURGICAL HISTORY Procedure Laterality Date BREAST LUMPECTOMY HX 08/2024 COLONOSCOPY 03/2024 TONSILLECTOMY AND ADENOIDECTOMY Allergies: ALLERGIES Allergen Reactions Alprazolam Unknown Quetiapine Fumarate Unknown Medications: no115/iron/folic acid ( 19 ORAL) Take 1 tablet by mouth once daily. FAMILY HISTORY Problem Relation Age of Onset Colon Cancer Maternal Grandmother Employer And Job Title: None on file Years Of Education Completed: Not specified Marital Status: SOCIAL HISTORY[1] Review of Systems: Review of Systems Constitutional: Positive for fatigue. Cardiovascular: Positive for palpitations. Gastrointestinal: Positive for abdominal distention, abdominal pain and anal bleeding. Gas, Heartburn All other systems reviewed and are negative. Are you taking any blood thinners? No Physical Examination: BP 114/62 Pulse 91 Ht 5' 7" (1.70m) Wt 167 lb (75.8kg) SpO2 98% BMI 26.15 kg/(m2). Physical Exam Vitals and nursing note reviewed. Constitutional: Appearance: Normal appearance. She is normal weight. HENT: Head: Normocephalic and atraumatic. Eyes: General: No scleral icterus. Cardiovascular: Rate and Rhythm: Normal rate and regular rhythm. Pulmonary: Breath sounds: Normal breath sounds. Abdominal: General: Abdomen is flat. Bowel sounds are decreased. Palpations: Abdomen is soft. Tenderness: There is generalized abdominal tenderness (mild). There is no guarding or rebound. Musculoskeletal: General: No swelling. Skin: General: Skin is warm and dry. Neurological: Mental Status: She is alert and oriented to person, place, and time. Psychiatric: Mood and Affect: Mood normal. Behavior: Behavior normal. Thought Content: Thought content normal. Judgment: Judgment normal. ASSESSMENT: (R10.32) LLQ pain (primary encounter diagnosis) (R14.0) Bloating (R14.2) Belching 1. LLQ pain (Primary) - Suspect IBS/fecal retention. Will check AXR to assess for underlying fecal retention. Request colonoscopy and biopsy reports. Also strongly consider SIBO breath testing - You can try Ibgard or Iberogast for abdominal pain and bloat. Fdgard can be used for nausea, bloat/feeling of fullness after eating. - avoid artificial sweeteners/zero sugar products - XR ABDOMEN 2V ROUTINE SUPINE W UPRIGHT/DECUB/CTL; Future 2. Bloating - rule out celiac. Rule out SIBO if negative. - CELIAC SCREEN WITH REFLEX; Future - XR ABDOMEN 2V ROUTINE SUPINE W UPRIGHT/DECUB/CTL; Future 3. Belching - You can try Ibgard or Iberogast for abdominal pain and bloat. Fdgard can be used for nausea, bloat/feeling of fullness after eating. - avoid artificial sweeteners/zero sugar products Follow up in office 3 months Tariq Singleton APRN.BUILD AND DEPLOYMENT ENGINEER September 24, 2024 10:01 AM [1] Social History Tobac (more content not included)... Normal [facility] Surgery Visit Reporton 09-17 Surgery Visit Report [facility] [address] [place] [address] OFFICE VISIT Date of Service: 09/17/24 MR#: [id number] Acct: [id number] Name: MACHELLEMAY ELIZ Rep #: [id number] : 1995 Provider: Dr. Lawrence hernandez MD Age/Sex: 28/F Location: [facility] Status: Signed Intake Vital Signs 08/19/24 10:41 09/17/24 08:30 Height 5 ft 6 in BP 122/77 H Blood Pressure Location Lt brachial Position Sitting Respiration 17 Pulse 90 Pulse Source Monitor Temp 97.3 F L Temp Source Temporal Intake Visit Reasons: BREAST I D Chief Complaint: breast I D/ aspiration Is patient in pain?: Yes (soreness/pain with ) Allergies nitrofurantoin Allergy (Severe, Verified 09/17/24 08:31) difficulty breathing alprazolam Adverse Reaction (Intermediate, Verified 09/17/24 08:31) PT UNSURE OF REACTION quetiapine Adverse Reaction (Intermediate, Verified 09/17/24 08:31) PT UNSURE OF REACTION Medications ???Medication ???Instructions ???Recorded ???Confirmed ???Type L. crispatus, gasseri, jensenii, 2 tab PO DAILY 02/09/23 09/17/24 H istory rhamnosus 12 billion cell chew tablet (Culturelle Probiotic) docosahexaenoic acid 200 mg 200 mg PO DAILY 06/26/23 09/17/24 History capsule ( DHA) sunflower lithisine PO 09/17/24 History Subjective Details: The patient is a 28-year-old female who is being seen today for swelling to the site of a recent left breast lumpectomy. She called the office recently and we had her obtain an ultrasound. This showed a large fluid collection. We recommended that she be seen in the office for possible aspiration or I D. She denies any fevers or chills. She does admit to swelling slight warmth to the area Objective Details: She is alert and oriented x 3. She is in no acute distress. Examination of the left breast reveals minimal tenderness and very minimal erythema. Ultrasound again confirms a large pool of fluid deep to the incision. I recommended aspiration. Aspiration was performed under sterile technique in the office today. Local anesthetic was injected. After this a total of 180 cc of essentially breastmilk was aspirated. Patient is currently breast- feeding. This decompressed the area nicely. Coding Level of Care Code Global Post Op Diagnoses Mass of upper outer quadrant of left breast N63.21 Breast mass location: upper outer quadrant [facility] Medical History Adenoma of breast Thyroid disease Migraine headache History of Holter monitoring History of echocardiogram Cardiology follow-up encounter Vasovagal near syncope IBS (irritable bowel syndrome) GERD (gastroesophageal reflux disease) Diseases of the circulatory system complicating , unspecified trimester Supraventricular tachycardia, unspecified Supraventricular tachycardia during Heart palpitations History of kidney disease Hypothyroidism affecting Normal endoscopic ultrasound of upper gastrointestinal tract Seasonal allergies Supervision of high-risk Infertility associated with anovulation Surgical History (Updated 08/27/24 @ 13:45 by Galina Andino) S/P lumpectomy, left breast Hx of tonsillectomy [place] teeth extracted History of tonsillectomy Family History Grandmother Colon cancer Diabetes Mother Diabetes Pancreatic cancer Social History adopted: No household members: spouse and children number of children: 2 current occupational status: unemployed current occupation: [employer] current occupational exposures/hazards: No pets and animals: Yes (NOT MANAGING LITTERBOX) pets and animals: cat(s), dog(s), horse(s) and farm animals history of recent travel: No sexually active: Yes Smoking Status: Never smoker alcohol intake: never substance use type: does not use diet: other well-balanced diet: daily or most days caffeine: No eating out: 1-3 times/week during the past year weight has: remained stable what type of physical activity do you participate in: weight training frequency: 5-6 times per week duration: 15-30 minutes/day gale/restoration: Anglican seatbelt use: always do you feel safe at home: Yes additional social history: - [place] Assessment and Plan (No Qualifiers) Assessment and Plan (1) Left breast lump: Status: Acute Plan: The patient is a 28-year-old female status post a recent left ectomy of the left breast. She developed a fluid collection consisting of breastmilk at the surgical site. Patient is currently breast-feeding. I aspirated about 180 cc of essentially breastmilk. This decompressed the a (more content not included)... Normal [facility] Breast Limited Unilateralon 09-16-2024 Breast Limited Unilateral [facility] Imaging Services [address] [place], [place] [address] Breast Limited Unilateral MR#: [id number] Acct: [id number] Name: DULCE MARIA CARTY Rep #: [id number] : 1995 F 28 From: Sapphire Blanco MD PCP: Dr. Zachariah Rome, Status: [facility] CL Study: Breast Limited Unilateral Date of Exam: Exam# [id number] Ordering Dr: Lawrence Del Toro MD PROCEDURE: BREAST LIMITED UNILATERAL 09/16/2024 REASON FOR EXAM: 28-year-old female presents with left breast pain. The patient is recently status post left lumpectomy for a left breast mass. The patient is currently . COMPARISON: Ultrasound 12/13/2023. TECHNIQUE: BREAST LIMITED UNILATERAL FINDINGS: Ultrasound performed of the area of patient's skin discoloration demonstrates a large fluid collection entirely filling the left upper-outer quadrant from 12 o'clock to 4 o'clock measuring 10.4 x 10.3 x 3.4 cm. There are some internal septations. Also, there is some dilated ducts in the retroareolar region. There is a normal-appearing intramammary lymph node in the left breast at 3 o'clock 13 cm from the nipple. US/Breast Limited Unilateral IMPRESSION: Large fluid collection in the upper-outer left breast measuring 10.4 x 10.3 x 3.4 cm, correlates to the patient's area of reported pain/skin discoloration. Consider aspiration or I and D for symptomatic relief. BI-RADS 2: BENIGN RECOMMENDATION: OTHER. Clinical management is recommended. Reading Location: [id number] CC: Dr. Zachariah Rome DO; Dr. Lawrence Del Toro MD Pocket Secretary Assembler: Signed Normal [facility] MRI PITUITARY WO/W IVCONon 0 09-12-2024 MRI PITUITARY WO/W IVCON * * *Final Report* * * DATE OF EXAM: Sep 12 2024 9:27AM RVM 0314 - MRI PITUITARY WO/W IVCON / PROCEDURE REASON: E22.1 * * * * Physician Interpretation * * * * RESULT: EXAMINATION: MRI PITUITARY WO/W IVCON CLINICAL HISTORY: brain fog, blurry vision, headaches history of hyperprolactinemia TECHNIQUE: High resolution sagittal and coronal T1, coronal T2, and gadolinium enhanced, fat-suppressed sagittal and coronal T1-weighted images of the pituitary region. Contrast: 8 mL Elucirem IV COMPARISON: Limited T1 sagittal MR pituitary 08/26/2024. RESULT: Postop Changes: None Adenohypophysis: The pituitary gland is within normal limits of size and configuration for age. The adenohypophysis is uniformly hypointense on T1 and T2 and uniformly enhances following gadolinium administration. No evidence of an underlying mass. Neurohypophysis: The posterior pituitary gland is present and normal in size and location. The infundibulum is intact and normal in appearance. Suprasellar Region: No evidence of a suprasellar mass. The optic apparatus is normal in appearance. Cavernous Sinuses: The cavernous sinuses are normal in appearance. A normal flow void is noted in the carotid siphons suggesting patency by spin echo criteria. Brain Parenchyma: The overlying hypothalamus is normal in appearance. The visualized parenchyma is otherwise normal in signal intensity and morphology. Skull Base: No evidence of a marrow replacement process in the underlying skull base. IMPRESSION: Normal MRI examination of the pituitary gland. Transcribe Date/Time: Sep 12 2024 10:20A Dictated by: ALYCIA CORCORAN MD This examination was interpreted and the report reviewed and electronically signed by: ALYCIA CORCORAN MD on Sep 12 2024 10:23AM EST Thank you for allowing us to participate in the care of your patient. Should there be any questions regarding this interpretation, please call . If you are unable to reach us at the number above, please feel free to contact [facility]Radiology at [phone]. [id number] Normal [facility] Progress Noteon 09-01-2024 Process Development Technician Authentication Interface Message Text Assessment Patient: Dulce Maria Eliz Carty Chief Complaint: Nipple Pain and Breast Pain Nipple pain [N64.4] Breast pain, left [N64.4] - Most likely from breast fullness, will focus interventions on decreasing inflammation and help with milk flow Plan - No pain noted to area where biopsy was done - Ice 4x per day - Leonard lecithin 3-4x per day - Hydrogels for nipple pain - Feeding on demand, offering that second side with some feeds to help with milk expression - Follow up right away for any signs/symptoms of mastitis Return if symptoms worsen or fail to improve. Subjective Patient has been feeding on demand, baby gaining and nursing well with stable milk supply. Has had lump to left breast for 3-4 years. OB did updated US and biopsy performed on the (non cancerous). Did not notice pain right away, but over the last 2 days has noticed increased breast and nipple discomfort. Baby is very distracted with nursing and on and off that side. Causing nipple pain that is now extending to breast tissue and area near where biopsy was done. Baby is nursing every 4 hours during the day and 2x overnight. Usually will just nurse on one side per feed. The past two days has pumped a couple of times due to pain and getting 1-2 oz. Denies any fever or flu like symptoms. Return if symptoms worsen or fail to improve. Objective Exam: Gen: alert, oriented, no distress. Conversant, mood and affect appropriate. Resp: no distress Nipple exam pre-feed: - Right: pink and everted - Left: pink and everted Breast exam: - Right: normal shape, tissue extends to sternum, no erythema or edema - Left: normal shape, tissue extends to sternum, 2x 3 cm slightly firm area noted to upper quadrants in center, skin pink, no warmth, vertical 3-4 cm scar noted to upper outer left quadrant, no redness, area soft and no discharge present I Spent 30 minutes on this patient in direct [id number] care, chart review of delivery hospitalization, prior PCP notes, and documentation. Normal [facility] Surgery Visit Reporton 08-27 Surgery Visit Report [facility] [address] [place] [address] OFFICE VISIT Date of Service: 08/27/24 MR#: [id number] Acct: [id number] Name: MACHELLEMAY ELIZ Rep #: [id number] : 1995 Provider: Dr. Lawrence hernandez MD Age/Sex: 28/F Location: [facility] Status: Signed Intake Vital Signs 08/19/24 10:41 Height 5 ft 6 in Intake Visit Reasons: Lumpectomy 08/19 Chief Complaint: f/u lumpectomy Home Care Administrator Required: No Is patient in pain?: No Allergies nitrofurantoin Allergy (Severe, Verified 08/27/24 13:41) difficulty breathing alprazolam Adverse Reaction (Intermediate, Verified 08/27/24 13:41) PT UNSURE OF REACTION quetiapine Adverse Reaction (Intermediate, Verified 08/27/24 13:41) PT UNSURE OF REACTION Medications ???Medication ???Instructions ???Recorded ???Confirmed ???Type L. crispatus, gasseri, jensenii, 2 tab PO DAILY 02/09/23 08/14/24 H istory rhamnosus 12 billion cell chew tablet (Culturelle Probiotic) docosahexaenoic acid 200 mg 200 mg PO DAILY 06/26/23 08/14/24 History capsule ( DHA) Have you fallen in the past year?: No Subjective Details: The patient is a 28-year-old female who presents today after recent left breast lumpectomy. Pathology came back as an adenoma associated with . She states overall she is doing fairly well following the surgery. Her only issues are a small amount of blood in her milk with breast- feeding as well as pain with breast-feeding. Objective Details: She is alert oriented x 3. She is in no acute distress. Left breast is healing well. Incision is without signs of erythema or infection. No evidence of infection. Coding Level of Care Code Global Post Op Diagnoses Mass of upper outer quadrant of left breast N63.21 Breast mass location: upper outer quadrant [facility] Medical History Adenoma of breast Thyroid disease Migraine headache History of Holter monitoring History of echocardiogram Cardiology follow-up encounter Vasovagal near syncope IBS (irritable bowel syndrome) GERD (gastroesophageal reflux disease) Diseases of the circulatory system complicating , unspecified trimester Supraventricular tachycardia, unspecified Supraventricular tachycardia during Heart palpitations History of kidney disease Hypothyroidism affecting Normal endoscopic ultrasound of upper gastrointestinal tract Seasonal allergies Supervision of high-risk Infertility associated with anovulation Surgical History (Updated 08/27/24 @ 13:45 by Galina Andino) S/P lumpectomy, left breast Hx of tonsillectomy [place] teeth extracted History of tonsillectomy Family History Grandmother Colon cancer Diabetes Mother Diabetes Pancreatic cancer Social History adopted: No household members: spouse and children number of children: 2 current occupational status: unemployed current occupation: [employer] current occupational exposures/hazards: No pets and animals: Yes (NOT MANAGING LITTERBOX) pets and animals: cat(s), dog(s), horse(s) and farm animals history of recent travel: No sexually active: Yes Smoking Status: Never smoker alcohol intake: never substance use type: does not use diet: other well-balanced diet: daily or most days caffeine: No eating out: 1-3 times/week during the past year weight has: remained stable what type of physical activity do you participate in: weight training frequency: 5-6 times per week duration: 15-30 minutes/day gale/restoration: Anglican seatbelt use: always do you feel safe at home: Yes additional social history: - [place] Assessment and Plan (No Qualifiers) Assessment and Plan (1) Left breast lump: Status: Acute Plan The patient is a 28-year-old female status post a successful left breast lumpectomy. I reassured her that the blood in the milk is not uncommon and should steadily improve. She could certainly discuss this with a in home sales consultant as they may have more experience in terms of dealing with the pain. Otherwise follow-up will be as needed. 08/27/24 1512 Date Lawrence Del Toro MD Cosigner Signature: Date (if applicable) CC: Normal [facility] MR Pituitary and Sella turci ca WO and W contrast Isabel 08-26-2024 IMPRESSION: Limited examination without obvious mass in the sella. Recommend full conventional pituitary MRI with intravenous contrast when patient is able for further evaluation of any small lesions. Pocket Secretary Assembler: PSCB Transcribe Date/Time: Aug 26 2024 3:55P Dictated by : NITHIN RIVERO DO This examination was interpreted and the report reviewed and electronically signed by: NITHIN RIVERO DO on Aug 26 2024 4:01PM [facility] * * *Final Report* * * DATE OF EXAM: Aug 26 2024 3:43PM [facility] 0314 - MRI PITUITARY WO/W IVCON / PROCEDURE REASON: hyperprolactinemia * * * * Physician Interpretation * * * * EXAMINATION: MRI PITUITARY WO IVCON CLINICAL HISTORY: hyperprolactinemia TECHNIQUE: Only localizer and sagittal T1 were acquired. The examination was terminated early at the request of the patient. No contrast was administered. COMPARISON: None. RESULT: Very limited examination without obvious mass in the sella. Limited evaluation of the intracranial contents is grossly without acute finding. Ventricular system appears normal in caliber. Mucus retention cyst or polyp in the right maxillary antrum [facility] Provider, Blane Cantrell - 08/26/2024 * * *Final Report* * * DATE OF EXAM: Aug 26 2024 3:43PM [facility] 0314 - MRI PITUITARY WO/W IVCON / PROCEDURE REASON: hyperprolactinemia * * * * Physician Interpretation * * * * EXAMINATION: MRI PITUITARY WO IVCON CLINICAL HISTORY: hyperprolactinemia TECHNIQUE: Only localizer and sagittal T1 were acquired. The examination was terminated early at the request of the patient. No contrast was administered. COMPARISON: None. RESULT: Very limited examination without obvious mass in the sella. Limited evaluation of the intracranial contents is grossly without acute finding. Ventricular system appears normal in caliber. Mucus retention cyst or polyp in the right maxillary antrum IMPRESSION IMPRESSION: Limited examination without obvious mass in the sella. Recommend full conventional pituitary MRI with intravenous contrast when patient is able for further evaluation of any small lesions. Pocket Secretary Assembler: GENE Transcribe Date/Time: Aug 26 2024 3:55P Dictated by : NITHIN RIVERO DO This examination was interpreted and the report reviewed and electronically signed by: NITHIN RIVERO DO on Aug 26 2024 4:01PM [facility] Radiology Study observation (narrative) [facility] MR Pituitary and Sella turci ca WO and W contrast IVOrdered By: Ccf Provider on 08-26-2024 [facility] MRI PITUITARY WO/W IVCONon 0 08-26-2024 MRI PITUITARY WO/W IVCON * * *Final Report* * * DATE OF EXAM: Aug 26 2024 3:43PM [facility] 0314 - MRI PITUITARY WO/W IVCON / PROCEDURE REASON: hyperprolactinemia * * * * Physician Interpretation * * * * EXAMINATION: MRI PITUITARY WO IVCON CLINICAL HISTORY: hyperprolactinemia TECHNIQUE: Only localizer and sagittal T1 were acquired. The examination was terminated early at the request of the patient. No contrast was administered. COMPARISON: None. RESULT: Very limited examination without obvious mass in the sella. Limited evaluation of the intracranial contents is grossly without acute finding. Ventricular system appears normal in caliber. Mucus retention cyst or polyp in the right maxillary antrum IMPRESSION: Limited examination without obvious mass in the sella. Recommend full conventional pituitary MRI with intravenous contrast when patient is able for further evaluation of any small lesions. Pocket Secretary Assembler: GENE Transcribe Date/Time: Aug 26 2024 3:55P Dictated by : NITHIN RIVERO DO This examination was interpreted and the report reviewed and electronically signed by: NITHIN RIVERO DO on Aug 26 2024 4:01PM EST [id number] [facility] NURSING PROGon 08-26-2024 NURSING PROG HNO ID: [id number] Author: JHON KAISER RN Service: Nursing Author Type: Registered Nurse Type: Nursing Progress Note Filed: 08/26/2024 15:23 Note Text: Radiology Service Progress Note DATE OF SERVICE: August 26, 2024 TIME: 3:21 PM PATIENT WEIGHT: 181LBS PATIENT IDENTITY VERIFICATION COMPLETED USING TWO (2) STANDARD IDENTIFIERS: Name and Date of confirmed by patient verbally. FALL SCREENING: Has the patient had 2 falls in the last year or 1 fall with injury or currently using an Ambulatory Assistive Device (Walker, Cane, Wheelchair, Crutches, etc.)? No PATIENT GENDER DATA: Assigned female at . status: status: Yes status: YES education provided. ALLERGIES: Reviewed and unchanged CONTRAST ALLERGY: No EXAM: MRI - CONTRAST TYPE: GROUP II IV SITE: Ambulatory: A peripheral IV was started in the Right antecubital site with a Angio cath: 22 gauge. IV SITE APPEARANCE: Clean,Dry and Intact SIGNATURE: Jhon Kaiser RN PATIENT NAME: May Machelle DATE: August 26, 2024 TIME: 3:21 PM [facility] Breast Biopsy Specimenon Breast Biopsy Specimen [facility] Imaging Services [address] [place] [address] [id number] Breast Biopsy Specimen MR#: [id number] Acct: [id number] Name: MACHELLEMAY ELIZ Rep #: [id number] : 1995 F 28 From: Adolfo redd MD PCP: Dr. Zachariah Rome DO Status: [facility] Study: Breast Biopsy Specimen Date of Exam: 08/19/24 Exam# [id number] Ordering Dr: Lawrence Del Toro MD EXAM: BREAST BIOPSY SPECIMEN 08/19/2024 CLINICAL HISTORY: F, Age 28 y/o , TECHNIQUE: BREAST BIOPSY SPECIMEN COMPARISON: Prior exam(s) dated December 13, 2023.. FINDINGS: TISSUE DENSITY: The breast tissue is extremely dense which lowers the sensitivity of mammography. The specimen contains the tissue clip marker. BI/Breast Biopsy Specimen IMPRESSION: OVERALL FINAL ASSESSMENT: BIRADS 1 NEGATIVE. RECOMMENDATION: Routine annual follow-up in 1 Year A letter with findings and recommendations will be mailed to the patient. Reading Location: [id number] CC: Dr. Zachariah Rome DO; Dr. Lawrence Del Toro MD Pocket Secretary Assembler: Signed Normal [facility] Breast imaging reportOrdered By: Adolfo Saenz on 08-19-2024 Study report [facility] Imaging Services [address] [place] [address] Breast Biopsy Specimen MR#: [id number] Acct: [id number] Name: MACHELLEMAY ELIZ Rep #: [id number] : 1995 F 28 From: Fransisco Saenz MD PCP: Dr. Zachariah Rome DO Status: [facility] Study:Breast Biopsy Specimen Date of Exam: 08/19/24 Exam# [id number] Ordering Dr: St beatriz Del Toro MD EXAM: BREAST BIOPSY SPECIMEN 08/19/2024 CLINICAL HISTORY: F, Age 28 y/o , TECHNIQUE: BREAST BIOPSY SPECIMEN COMPARISON: Prior exam(s) dated December 13, 2023.. FINDINGS: TISSUE DENSITY: The breast tissue is extremely dense which lowers the sensitivity of mammography. The specimen contains the tissue clip marker. BI/Breast Biopsy Specimen IMPRESSION: OVERALL FINAL ASSESSMENT: BIRADS 1 NEGATIVE. RECOMMENDATION: Routine annual follow-up in 1 Year A letter with findings and recommendations will be mailed to the patient. Reading Location: [id number] CC: Dr. Zachariah Rome DO; Dr. Lawrence Del Toro MD ~ Pocket Secretary Assembler: Signed [facility] Discharge Instructionon 08-05 Discharge Instruction [facility] Medical Records Department [address] [place] [address] Instructions for Home/Discharge Instructions 08/19/24 1244 MR#: [id number] Acct: [id number] Name: DULCE MARIA CARYT [facility] Rep #: [id number] : 1995 28 From: Lawrence Del Toro MD PCP: Dr. Zachariha Rome DO Status:REG [facility] Discharge Instructions Diet Discharge Diet: Light diet - advance as tolerated Activity Discharge Activity: Return to Normal Activity and May Shower May shower in (days): 1 Ice area for (Minutes): 30 Dressing / Incision Call your doctor if your incision/area has: Continuous Slow Oozing, Sudden Increased Bleeding, Increased Pain/ Swelling, Increased Redness, Foul Smelling Discharge and Swelling at the incision site Call your doctor if you observe: Fever of 101 or Higher Cleanse incision/area with: Soap Water Follow Up Care Please Follow Up With: Lawrence Del Toro MD When: 1 to 2 weeks. Please call office to schedule appointment Test Results: Test results from this visit will be discussed in further detail at your follow-up appointment, if applicable. Discharge Plan Admission Primary Reason for Your Visit: Left breast lumpectomy Attending Provider: Lawrence Del Toro Primary Care Provider: Zachariah Rome Instructions Print Language: Gambian Discharge Orders/Prescriptions Prescriptions: New oxycodone 5 mg tablet 5 mg PO Q8H PRN (Reason: pain) 3 Days Qty: 10 0RF Continued DHA 200 mg capsule 200 mg PO DAILY Culturelle Probiotic 12 billion cell tablet,chewable 2 tab PO DAILY Referrals / Follow Up: Zachariah Rome DO [Primary Care Provider] - Disposition Disposition (needs filled in before D/C Order can be placed): Home, Self Care 08/19/24 1252 Lawrence Del Toro MD CC: Dr. Zachariah Rome DO Signed Normal [facility] MR/POSTOP.Henri 08-19-2024 MR/POSTOP.[facility] Medical Records Department [address] [place] [address] Anesthesia Postop Eval I 08/19/24 1311 MR#: [id number] Acct: [id number] Name: DULC EMARIA CARTY ELIZ Rep #: [id number] : 1995 28 From: Susana Akhtar CRNA PCP: Dr. Zachariah Rome, DO Status:REG [facility] Y Race: C Location: [place] [address] Anesthesia: Postop Eval I Current Vital Signs Temperature: 97.3 F Pulse Rate: 70 Blood Pressure: 107/57 Respiratory Rate: 16 Pulse Ox: 99 Oxygen Delivery Method: Room Air Assessment Airway patent: Yes Spontaneous unlabored respirations: Yes Mental status: Awake and Calm nausea: No Vomiting: No Anesthesia Complication: No Fluid Hydration Crystalloid volume administer (ml): 700 Total IV fluid infused: 700 Progress Note Anesthesia document: Postop Eval 1 completed: Yes 08/19/24 1311 Date Susana Akhtar FINANCE EFFECTIVENESS MANAGER Cosigner Signature: Date CC: Signed Normal [facility] MR/[id number] 08-19-2024 [facility] Medical Records Department [address] [place] [address] Anesthesia Postop Eval II 08/19/24 191 MR#: [id number] Acct: [id number] Name: MACHELLE ELIZ Rep #: [id number] : 1995 28 From: Olrando Gordon MD PCP: Dr. Zachariah Rome, DO Status:DEP [facility] Y Race: C Location: [facility] Anesthesia Postop Eval I Sum Postop Eval Completion status Anesthesia document: Postop Eval 1 completed: Yes Anesthesia Postop Eval I Summary Anesthesia Postop Eval I Summary: Anesthesia Postop Eval I: Assessment Summary Airway patent Yes 08/19/24 13:11 FINANCE EFFECTIVENESS MANAGER.GDOTT Spontaneous unlabored Yes 08/19/24 13:11 FINANCE EFFECTIVENESS MANAGER.GDOTT respirations Mental status Awake,Calm 08/19/24 13:11 FINANCE EFFECTIVENESS MANAGER.GDOTT nausea No 08/19/24 13:11 FINANCE EFFECTIVENESS MANAGER.GDOTT Vomiting No 08/19/24 13:11 FINANCE EFFECTIVENESS MANAGER.GDOTT Anesthesia Postop Eval I: Fluid Summary Crystalloid volume administer 700 08/19/24 13:11 FINANCE EFFECTIVENESS MANAGER.GDOTT (ml) Colloids volume administered ( ml) Blood Product volume administered (ml) Total IV fluid infused 700 08/19/24 13:11 FINANCE EFFECTIVENESS MANAGER.GDOTT Anesthesia Postop Eval I: Summary Notes Anesthesia Complication No 08/19/24 13:11 FINANCE EFFECTIVENESS MANAGER.GDOTT Anesthesia Complication Comment: Post-operative progress note Anesthesia: Postop Eval II Evaluation Mental status: Awake and Calm Pain Level: 1 nausea: No Vomiting: No Complications Anesthesia Complication: No 08/19/24 191 Date Orlando Saabigncaleb Signature: Date CC: Signed Normal [facility] Operative Reporton 5 Operative Report [facility] Medical Records Department [address] [place] [address] Operative Report 08/19/24 1252 MR#: [id number] Acct: [id number] Name: DULCE MARIA CARTY ELIZ Rep #: [id number] : 1995 28 From: Lawrence Del Toro MD PCP: Dr. Zachariah Rome, DO Status:REG [facility] Location: [place] [address] Problems Associated Problem List Diagnoses (1) Left breast lump: Procedures Integumentary 16xxx-193xx: [id number] Partial mastectomy Operative Report (Standard) Operative Information Date of Procedure: 08/19/24 Pre-Operative Diagnosis: Left breast lump Post-Operative Diagnosis: Same Surgery/Procedure Performed: Left breast lumpectomy with ultrasound street light cleaner: Yes Third Helper: Radha Hilliard Tasks completed by accountant assistant: Closing and Retracting Additional orthopaedic physician assistant?: No Type of Anesthesia: Local and MAC RN Documented Start/Stop Times: Operation Date: 08/19/24 11:45 Case Time Into Pre-Op 08/19/24 10:14 Out of Pre-Op 08/19/24 11:50 Anesthesia Start 08/19/24 11:53 Into Room 08/19/24 11:53 Procedure Start 08/19/24 12:17 Procedure Start Time: 12:17 Procedure Stop Time: 12:50 Select all DRAINS/GRAFTS/IMPLANTS that apply: None Special Medications: None Estimated Blood Loss: Minimal Specimen collected: Yes Description of specimen(s) removed: Left breast tissue with marking clip Description of surgery: The patient is a 28-year-old female recently seen to the office earlier this year with a left breast lump. Mammograms seem to indicate possible fibroadenoma. A core biopsy was performed under ultrasound guidance in the office. 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 She initially wanted to observe however more recently she contacted our office wanting to have this excised. We discussed the details of the planned procedure and she wished to proceed. She was brought to the operating room today following informed consent. She was placed supine on the operative table with arms outstretched and arm boards. MAC anesthesia was induced. Once adequately sedated the area was prepped and draped in the usual sterile manner. Preoperatively, the lump was identified by the patient as well as myself. We marked this with a marking pen and that ultrasound was performed intraoperatively to confirm the lesion. Once adequately sedated local anesthetic was injected into the area. A #15 blade was then used to make the skin incision. Bovie electrocautery was then used dissect down through subcutaneous tissue. The region of tissue was removed. It was sent to radiology to be radiographed to confirm placement of the clip. The clip was clearly present. Hemostasis was excellent. The wound was then closed using 3-0 Vicryl and 4-0 Vicryl. Skin glue and an Kyle wrap were applied as dressing. She was awakened from anesthesia and taken recovery in good condition. Surgical Findings: See operative note Complications Complications: No Admit VTE Documentation VTE Present on Admission: Yes VTE Mechan Device Prophylaxis: SCD's VTE Pharm Prophylaxis ordered?: No Reason prophylaxis not ordered: Treatment Not Indicated 08/19/24 1301 Cosigner Signature (if applicable): CC: Dr. Zachariah Rome DO; Dr. Lawrence Del Toro MD Signed Normal [facility] ,Urineon 08-19-2024 Beta HCG ( test) Ql (U) Negative Normal [facility] Comment on above: Result Comment: Very dilute urine specimens, as indicated by a low specific gravity, may not contain inventory representative levels of hCG. If is still suspected, a first morning urine specimen should be collected 48 hours later and tested. Performed By: #### L [phone] #### [facility] [place], [address] Surgery Specimen Level Isabel 08-19-2024 Surgery Specimen Level IV Patient Age/Sex Location Account Attending Physician MACHELLEMay [facility] [id number] Dr. Lawrence Del Toro MD Specimen: [id number] Received: 08/19/24 Status: YOEL Milligan Num: [id number] Spec Type: BREAST BX Subm Dr: Dr. Lawrence Del Toro MD HEADER OPERATION: Breast, lumpectomy with ultrasound PRE-OP DIAGNOSIS: Left breast lump TISSUE SUBMITTED: A- Left breast lumpectomy Ischemic Time: 30 minute Fixation Time: 6 hours, 40 minutes MICROSCOPIC DIAGNOSIS A. Breast, left, "lump", lumpectomy with ultrasound: - Adenoma with lactational features, benign. - IHC for CK5/6 and p40 support the histologic impression. MICROSCOPIC DESCRIPTION Slides are reviewed. All matched controls reacted appropriately. These tests were developed and their performance characteristics determined by [facility]. They may not have been cleared or approved by the U.S. Food and Drug Administration. The FDA has determined that such clearance or approval is not necessary.??? The above immunohistochemical/dual SARAH???markers are reviewed by the Pathologist. GROSS DESCRIPTION A. Received fresh and subsequently placed in formalin labeled with the patient's name and date of . Designated as "left breast lumpectomy" is a 5.5 x 4.7 x 2.4 cm blair-pink to yellow lumpectomy, devoid of orientation. The external surfaces are inked black. The specimen is serially sectioned into 6 slices revealing predominantly blair-pink, rubbery and lobulated cut surfaces with focal hemorrhage and fibrosis. A definitive mass lesion is not grossly appreciated, however, a ribbon clip is identified within an area of fibrosis. Carbider sections are submitted, 1 per slice, into 6 cassettes, to include the biopsy site in cassette A5: Cold ischemic time: 30 minutesFormalin fixation time: 6 hour, 40 minutes [place] 08/19/2024 CPT:16650,47318,24949 Patient Age/Sex Location Account Attending Physician MACHELLE [facility] [id number] Dr. Lawrence Del Toro MD Signed (signature on file) Dr. Anuja Tirado MD 08/22/241809 Normal [facility] Comment on above: Performed By: #### P SUIV ####[facility] [address] [place], [address] Urine testOrdered By: Orlando Gordon on 08-19-2024 HCG ( test) Ql (U) Negative [facility] Comment on above: Very dilute urine sp ecimens, as indicated by a low specificgravity, may not contain inventory representative levels of hCG. If is still suspected, a first morning urinespecimen should be collected 48 hours later and tested. /Queenie 08-14-2024 MR/JESSIE [facility] Medical Records Department [address] [place] [address] PAT - Anesthesia 08/14/24 1654 MR#: [id number] Acct: [id number] Name: DULCE MARIA CARTY Rep #: [id number] : 1995 28 From: Orlando Gordon MD PCP: Dr. 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 When Was Last Pacemaker Check QUESTION #4 FULL TEXT: You/Your Family Experience fever (hyperthermia) with Anesthesia Last Oral Intake Last Oral intake: Last Oral Intake NPO since Meds taken in AM with sips of water? 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 - engraver set up operator: PONV - engraver set up operator Female Yes 08/14/24 12:12 HX of Motion Sickness No 08/14/24 12:12 HX of N/V After Surgery No 08/14/24 12:12 Non-Smoker Yes 08/14/24 12:12 Duration of Surgery greater No 08/14/24 12:12 than 60 minutes Number of Risk Factors 2 08/14/24 12:12 PONV Score Moderate Risk 08/14/24 12:12 Height Weight Height Weight: Anesthesia: Height Weight Height 5 ft 6 in 08/05/24 08:23 Respiratory Assessment Respiratory Assessment - engraver set up operator: Respiratory Tract Infection Hx - engraver set up operator Hx Respiratory Tract Infection No 08/14/24 12:12 STOP Sleep Apnea STOP Sleep Apnea - engraver set up operator: STOP Sleep Apnea - engraver set up operator Hx Hypertension No 08/14/24 12:12 Hx Sleep Apnea No 08/14/24 12:12 CPAP BIPAP Do you snore loudly (louder No 08/14/24 12:12 than talking or can be heard Do you often feel tired/ No 08/14/24 12:12 fatigued/ sleepy during daytime? Has anyone observed you stop No 08/14/24 12:12 breathing during sleep? STOP Results Negative 08/14/24 12:12 QUESTION #5 FULL TEXT : Do you snore loudly (louder than talking or can be heard through closed doors)? 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 Specify any problems Hx of Preganancy in last 3 No 08/14/24 12:12 Months Nurse Filling Out Transfusion [id number] 08/14/24 12:12 Questions: Date: 08/14/24 08/14/24 12:12 Time: 12:15 08/14/24 12:12 Patient unable to answer at this time (ie. confused, unrespo /Reproduction History /Reproductive History - engraver set up operator: /Reproductive Hx- engraver set up operator Hx Now No 08/14/24 12:12 Gestational Age (in weeks): EDC: Hx Hx Para Hx Section SAB Yes 08/14/24 12:12 PFSH Medical History Adenoma of breast Thyroid disease Migraine headache History of Holter monitoring History of echocardiogram Cardiology follow-up encounter Vasovagal near syncope IBS (irritable bowel syndrome) GERD (gastroesophageal reflux disease) Diseases of the circulatory system complicating , unspecified trimester Supraventricular tachycardia, unspecified Supraventricular tachycardia during Heart palpitations History of kidney disease Hypothyroidism affecting Normal endoscopic ultrasound of upper gastrointestinal tract Seasonal allergies Supervision of high-risk Infertility associated with anovulation Home Medications ???Medication ???Instructions ???Recorded ???Last Taken ???Type L. porfirio duncan jensenii, 2 tab PO DAILY 02/09/23 09/25/23 0 8:00 History rhamnosus 12 billion cell chew (more content not included)... Normal [facility] Surgery Visit Reporton 08-05 Surgery Visit Report [facility] [address] [place] [address] OFFICE VISIT Date of Service: 08/05/24 MR#: [id number] Acct: [id number] Name: MACHELLEMAY ELIZ Rep #: [id number] : 1995 Provider: Dr. Lawrence hernandez MD Age/Sex: 28/F Location: [facility] Status: Signed Intake Vital Signs 04/02/24 05:56 08/05/24 08:23 Height 5 ft 6 in 5 ft 6 in Weight: 168 lb 2 oz BMI 27.1 BP 101/67 Blood Pressure Location Rt brachial Position Sitting Respiration 18 Pulse 85 Pulse Source Monitor Temp 97.5 F L Temp Source Temporal Pulse Oximetry (%) 96 Oxygen Delivery Method room air Intake Visit Reasons: discuss lumpectomy Chief Complaint: Discuss breast surgery Home Care Administrator Required: No Is patient in pain?: No Allergies nitrofurantoin Allergy (Severe, Verified 08/05/24 08:24) difficulty breathing alprazolam Adverse Reaction (Intermediate, Verified 08/05/24 08:24) PT UNSURE OF REACTION quetiapine Adverse Reaction (Intermediate, Verified 08/05/24 08:24) PT UNSURE OF REACTION Medications ???Medication ???Instructions ???Recorded ???Confirmed ???Type L. isrraelusporfirio jensenii, 2 tab PO DAILY 02/09/23 08/05/24 H istory rhamnosus 12 billion cell chew tablet (Culturelle Probiotic) docosahexaenoic acid 200 mg 200 mg PO DAILY 06/26/23 08/05/24 History capsule ( DHA) magnesium 200 mg tablet 200 mg PO DAILY 03/31/24 08/05/24 History Have you fallen in the past year?: No PFSH Medical History (Updated 08/05/24 @ 08:23 by Leigh Styles) Adenoma of breast Thyroid disease Migraine headache History of Holter monitoring History of echocardiogram Cardiology follow-up encounter Vasovagal near syncope IBS (irritable bowel syndrome) GERD (gastroesophageal reflux disease) Diseases of the circulatory system complicating , unspecified trimester Supraventricular tachycardia, unspecified Supraventricular tachycardia during Heart palpitations History of kidney disease Hypothyroidism affecting Normal endoscopic ultrasound of upper gastrointestinal tract Seasonal allergies Supervision of high-risk Infertility associated with anovulation Surgical History Hx of tonsillectomy [place] teeth extracted History of tonsillectomy Family History Grandmother Colon cancer Diabetes Mother Diabetes Pancreatic cancer Social History adopted: No household members: spouse and children number of children: 2 current occupational status: unemployed current occupation: [employer] current occupational exposures/hazards: No pets and animals: Yes (NOT MANAGING LITTERBOX) pets and animals: cat(s), dog(s), horse(s) and farm animals history of recent travel: No sexually active: Yes Smoking Status: Never smoker alcohol intake: never substance use type: does not use diet: other well-balanced diet: daily or most days caffeine: No eating out: 1-3 times/week during the past year weight has: remained stable what type of physical activity do you participate in: weight training frequency: 5-6 times per week duration: 15-30 minutes/day gale/restoration: Anglican seatbelt use: always do you feel safe at home: Yes additional social history: - LUKE HPI HPI HPI: The patient is a 28-year-old female who is being seen today to discuss left breast lumpectomy. She was seen earlier this year with a new palpable abnormality in the upper outer quadrant of the left breast. Biopsy was performed and results were benign. After period of time she is decided that she would like to have the lump removed for peace of mind. She denies any significant changes to the mass. She is still breast-feeding. ROS General General: No weight change, appetite, fatigue, colon cancer, breast cancer or weakness Additional Details: 2 month pp HEENT HEENT: No difficulty swallowing, eye injury, eye surgery, swollen glands or hoarseness Endo Endocrine: Yes thyroid disease; No diabetes mellitus, thyroid cancer, Hair loss, heat intolerance or cold intolerance Skin Skin: No rash or changing moles Breast Breast: Yes left breast lump and abnormal US; No right breast lump, nipple discharge, breast pain, abnormal mammogram or breast enlargement Musc Musculoskeletal: No back problems, arthritis, rheumatoid arthritis, gout or joint pain Cardio Cardiovascular: No murmur, pacemaker, heart disease, atrial fibrillation, high blood pressure, heart attack, heart stent, palpitations, shortness of breath with exertion or chest pain Psych Psychiatric: No depression, anxiety or hearing voices Resp Respirator (more content not included)... Normal [facility] 17-Hydroxyprogesteroneon 17-Hydroxyprogesterone [Mass/Vol] 17 ng/dL [facility] Comment on above: Unable to flag abnormal result(s), please refer to reference range(s) below: Adult Female Reference Ranges for 17-Hydroxyprogesterone: Pre-Menopausal Mid Follicular: 23 - 102 ng/dL Pre-Menopausal Surge: 67 - 349 ng/dL Pre-Menopausal Mid Luteal: 139 - 431 ng/dL Postmenopausal Phase: < or = 45 ng/dL Female Taurus Stages: II - III Females: 18 - 220 ng/dL IV - V Females: 36 - 200 ng/dL Includes data from J Clin Endocrinol Metab. 1991;73:674-686; J Clin Endocrinol Metab. 1989;69;1590-0367; J Clin Endocrinol Metab. 1994;78:226-270. Pediatr Res 1988;23:525-529. MedLinePlus (accessed 07/21/13). This test was developed and its analytical performance characteristics have been determined by [facility] [place], [place]. It has not been cleared or approved by the U.S. Food and Drug Administration. This assay has been validated pursuant to the CLIA regulations and is used for clinical purposes. Test Performed by [facility], [facility], [address] [place], [place] Naila Tolliver M.D., Ph.D., Director of Laboratories , CLIA [id number] [employer] [facility] Androstenedioneon 05-22-2024 Androstenedione [Mass/Vol] 53 ng/dL [employer] [facility] Comment on above: Adult Female Reference Ranges for Androstenedione: Mid Follicular: 51-213 ng/dL Surge: 73-230 ng/dL Mid Luteal: 73-184 ng/dL Postmenopausal Phase: 20-75 ng/dL This test was developed and its analytical performance characteristics have been determined by [facility]. It has not been cleared or approved by the FDA. This assay has been validated pursuant to the CLIA regulations and is used for clinical purposes. [place] [address] [employer] Clerk: Starla Ba MD,PHD,ZAYNAB Test Reported [facility], [address] [place] [address] Naila Tolliver M.D., Ph.D., Director of Laboratories , CLIA [id number] [facility] CNOVon 05-22-2024 CNOV Office Visit ([facility] ) -------- MACHELLE,MAY ([id number]) 1995 F Date Time Provider Department 05/22/24 10:30 AM DANYA PUGH [facility] During your visit today, we recorded the following information about you: Danya Pugh DO 05/22/2024 10:55 AM Signed [facility] MEET THE [employer] VISIT Patient seen on Audio Only Visit platform PCP: Lawrence Rome MD May is a 28 year old female who presents today for a meet and greet visit. Attempted Mychart virtual visit but parent could not connect. Phone conversation today only Concerns: " meet and greet". Mother has 8 month old and 3 year old children. 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 We discussed that she is interested in a slower vaccine schedule, is open to more natural/ alternative options. Mom made aware that I do practice out of the country for 18 weeks a year and plan to retire in 4 years but anyone in our office would be happy to cover, or other [facility] sites. All questions answered I spent a total of 10 minutes on the date of the service which included counseling and educating the patient/family/caregiver . Danya Pugh DO Allergies As of Date: 05/22/2024 Noted Allergy Reaction ALPRAZOLAM 05/02/2018 16 - Unknown QUETIAPINE FUMARATE 05/02/2018 16 - Unknown Date Reviewed: 02/10/2021 Reviewed by: Ting Goldman LPN - Fully Assessed Primary Visit Diagnosis:MEET WITH PHYSICIAN Prescriptions as of 05/22/2024 - no115/iron/folic acid ( 19 ORAL) Take 1 tablet by mouth once daily. Problem List As Of Date: 05/22/2024 (None) Disposition: Return if symptoms worsen or fail to improve. Follow-up and Disposition History for Encounter Date Provider Department Center 05/22/2024 [id number] PUGH [facility] Encounter Status:Closed by DANYA PUGH on 05/22/24 Normal [facility] Metanephrines, Urineon 05-21 24 HR URINE VOLUME - Audiam 2000 mL [facility] Metanephrine (24H U) [Mass/Time] 109 [facility] Comment on above: This test was developed and its analytical performance characteristics have been determined by [facility] [place], [place]. It has not been cleared or approved by the U.S. Food and Drug Administration. This assay has been validated pursuant to the CLIA regulations and is used for clinical purposes. Metanephrines (24H U) [Mass/Time] 293 [facility] Comment on above: A four fold elevation of urinary normetanephrines is extremely likely to be due to a tumor, while a four fold elevation of urinary metanephrines is highly suggestive, but not diagnostic of the tumor. Measurement of plasma Metanephrines and Chromogranin A is recommended for confirmation. Test Performed by [facility], [facility] [place], [address] [place], [place] Naila Tolliver M.D., Ph.D., Director of Laboratories , CLIA [id number] Normetanephrine (24H U) [Mass/Time] 184 [facility] Comment on above: This test was developed and its analytical performance characteristics have been determined by [facility] [place], [place]. It has not been cleared or approved by the U.S. Food and Drug Administration. This assay has been validated pursuant to the CLIA regulations and is used for clinical purposes. [facility] Catecholamines,Fra Urineon 05-18-2024 Catecholamines Kale (U) [Interp] See Note [facility] Comment on above: TEST INFORMATION: Ca techolamines Fractionated, Urine Free Smaller increases in catecholamine concentrations (less than two times the upper limit) usually are the result of physiological stimuli, drugs, or improper specimen collection. Significant elevation of one or more catecholamines (three or more times the upper reference limit) is associated with an increased probability of a neuroendocrine tumor. Access complete set of age- and/or gender-specific reference intervals for this test in the [facility] Test Directory ([employer]uan[employer] Translation). This test was developed and its performance characteristics determined by [facility]. It has not been cleared or approved by the US Food and Drug Administration. This test was performed in a CLIA certified laboratory and is intended for clinical purposes. Collection duration (Unsp spec) 24 hr [facility] Comment on above: Per 24h calculations are provided to aid interpretation for collections with a duration of 24 hours and an average daily urine volume. For specimens with notable deviations in collection time or volume, ratios of analytes to a corresponding urine creatinine concentration may assist in result interpretation. Creatinine (24H U) [Mass/Time] 1740 mg/d High 700 - 1600 mg/d [facility] Comment on above: Performed By: [facility] [address] [place] [address] [employer] Technicians: Liang Newell MD, PhD CLIA Number: [id number] Creatinine (U) [Mass/Vol] 87 mg/dL [facility] DOPamine (24H U) [Mass/Time] 296 ug/d 71 - 485 ug/d [facility] Comment on above: REFERENCE INTERVAL: Dopamine, Urine - ug/d Access complete set of age- and/or gender-specific reference intervals for this test in the [facility] Test Directory ([employer]uan[employer] Translation). DOPamine (U) [Mass/Vol] 148 ug/L [facility] DOPamine/Creatinine (U) [Mass ratio] 170 [facility] EPINEPHrine (24H U) [Mass/Time] 6 ug/d 1 - 14 ug/d [facility] Comment on above: REFERENCE INTERVAL: Epinephrine, Urine - ug/d Access complete set of age- and/or gender-specific reference intervals for this test in the [facility] Laboratory Test Directory (Yuan[employer] Translation). EPINEPHrine (U) [Mass/Vol] 3 ug/L [facility] EPINEPHrine/Creatinine (U) [Mass ratio] 3 [facility] Interpretation and review of laboratory results Abnormal [facility] Norepinephrine (24H U) [Mass/Time] 38 ug/d 14 - 120 ug/d [facility] Comment on above: REFERENCE INTERVAL: Norepinephrine, Urine - ug/d Access complete set of age- and/or gender-specific reference intervals for this test in the [facility] Laboratory Test Directory ([employer]uan[employer] Translation). Norepinephrine (U) [Mass/Vol] 19 ug/L [facility] Norepinephrine/Creatini ne (U) [Mass ratio] 22 [facility] Specimen volume Unsp time (U) 2000 mL [facility] Metanephrines Plasmaon 05-18 Metanephrine Free [Mass/Vol] <25 NINF - 57 pg/mL [facility] Comment on above: This test was developed and its analytical performance characteristics have been determined by [facility] [place], [place]. It has not been cleared or approved by the U.S. Food and Drug Administration. This assay has been validated pursuant to the CLIA regulations and is used for clinical purposes. Metanephrines [Mass/Vol] 28 pg/mL NINF - 205 pg/mL [facility] Comment on above: For additional information, please refer to http://[email or web address] Technology.TabSprint/faq/MetFractFree (This link is being provided for informational/educatio informational/educational purposes only.) Elevations >4-fold upper reference range: strongly suggestive of a pheochromocytoma(1). Elevations >1- 4-fold upper reference range: significant but not diagnostic, may be due to medications or stress. Suggest running 24 hr urine fractionated metanephrines and/or serum Chromagranin A for confirmation. Reference: (1)Ana Lilia Guerrero et al, Plasma Chromogranin A or Urine Fractionated Metanephrines Follow-Up Testing Improves the Diagnostic Accuracy of Plasma Fractionated Metanephrines for Pheochromocytoma. The Journal of Clinical Endocrinology # Metabolism 93(1), 91-95, 2008. This test was developed and its analytical performance characteristics have been determined by [facility] [place], [place]. It has not been cleared or approved by the U.S. Food and Drug Administration. This assay has been validated pursuant to the CLIA regulations and is used for clinical purposes. Test Performed by [facility], [facility] [place], [address] [place] [address] Naila Tolliver M.D., Ph.D., Director of Laboratories , CLIA [id number] Normetanephrine Free [Mass/Vol] 28 pg/mL NINF - 148 pg/mL [facility] Comment on above: This test was developed and its analytical performance characteristics have been determined by [facility] [place]. It has not been cleared or approved by the U.S. Food and Drug Administration. This assay has been validated pursuant to the CLIA regulations and is used for clinical purposes. [facility]ATE[facility]OL[facility],FRA URINEon 05-15-2024 CATECHOLAMINES, URINE INTERPRETATION See Note Normal [facility] Comment on above: Result Comment: TEST INFORMATION: Catecholamines Fractionated, Urine FreeSmaller increases in catecholamine concentrations (less than twotimes the upper limit) usually are the result of physiologicalstimuli, drugs, or improper specimen collection. Significantelevation of one or more catecholamines (three or more times theupper reference limit) is associated with an increased probabilityof a neuroendocrine tumor.Access complete set of age- and/or gender-specific referenceintervals for this test in the [facility] Test Directory(Yuanpei Translation).This test was developed and its performance characteristicsdetermined by [facility]. It has not been cleared orapproved by the US Food and Drug Administration. This test wasperformed in a CLIA certified laboratory and is intended forclinical purposes. Performed By: #### L [id number] ####[facility] ([facility])[address] CREATININE, URINE - PER 24H 1740 mg/d High 700-1600 [facility] Comment on above: Result Comment: Perf ormed By: [facility] [address] [place], [place] [address]Laboratory Director: Liang Newell MD, PhDCLIA Number: [id number] Performed By: #### L [id number] ####[facility] ([facility])[address] CREATININE, URINE - PER VOLUME 87 mg/dL Normal [facility] Comment on above: Performed By: #### L [id number] ####[facility] ([facility])[address] DOPAMINE, URINE - PER 24H 296 ug/d Normal 71-485 [facility] Comment on above: Result Comment: REFE RENCE INTERVAL: Dopamine, Urine - ug/dAccess complete set of age- and/or gender-specific referenceintervals for this test in the [facility] Test Directory(Yuanpei Translation). Performed By: #### L [id number] ####[facility] ([facility])[address] [place] [address] [place] DOPAMINE, URINE - PER VOLUME 148 ug/L Normal [facility] Comment on above: Performed By: #### L [id number] ####[facility] ([facility])[address] [place] [address] [place] DOPAMINE, URINE - RATIO TO MOUNTER SAXOPHONES 170 ug/g MOUNTER SAXOPHONES Normal 0-250 [facility] Comment on above: Performed By: #### L [id number] ####[facility] ([facility])[address] [place] [address] [facility] EPINEPHRINE, URINE - PER 24H 6 ug/d Normal 1-14 [facility] Comment on above: Result Comment: REFE RENCE INTERVAL: Epinephrine, Urine - ug/dAccess complete set of age- and/or gender-specific referenceintervals for this test in the [facility] Test Directory(Yuanpei Translation). Performed By: #### L [id number] ####[facility] ([facility])[address] EPINEPHRINE, URINE - PER VOLUME 3 ug/L Normal [facility] Comment on above: Performed By: #### L [id number] ####[facility] ([facility])[address] EPINEPHRINE, URINE - RATIO TO MOUNTER SAXOPHONES 3 ug/g MOUNTER SAXOPHONES Normal 0-20 [facility] Comment on above: Performed By: #### L [id number] ####[facility] ([facility])[address] HOURS COLLECTED 24 hr Normal [facility] Comment on above: Result Comment: Per 24h calculations are provided to aid interpretation forcollections with a duration of 24 hours and an average daily urinevolume. For specimens with notable deviations in collection timeor volume, ratios of analytes to a corresponding urine creatinineconcentration may assist in result interpretation. Performed By: #### L [id number] ####[facility] ([facility])[address] NOREPINEPHRINE, URINE - PER 24H 38 ug/d Normal 14-120 [facility] Comment on above: Result Comment: REFE RENCE INTERVAL: Norepinephrine, Urine - ug/dAccess complete set of age- and/or gender-specific referenceintervals for this test in the [facility] Test Directory(Yuanpei Translation). Performed By: #### L [id number] ####[facility] ([facility])[address] [place] [address] [place] NOREPINEPHRINE, URINE - PER VOLUME 19 ug/L Normal [facility] Comment on above: Performed By: #### L [id number] ####[facility] ([facility])[address] [place] [address] [place] NOREPINEPHRINE, URINE - RATIO TO MOUNTER SAXOPHONES 22 ug/g MOUNTER SAXOPHONES Normal 0-45 [facility] Comment on above: Performed By: #### L [id number] ####[facility] ([facility])[address] [place] [address] [facility] TOTAL VOLUME 2000 mL Normal [facility] Comment on above: Performed By: #### L [id number] ####[facility] ([facility])[address] [place] [address] [facility] Insulin, randomon 05-15-2024 Insulin Qn 7.0 u[IU]/mL [facility] Comment on above: Risk: Optimal < or = 18.4 Moderate NA High >18.4 Adult cardiovascular event risk category cut points (optimal, moderate, high) are based on Insulin Reference interval studies performed at [facility] in 2021. Test Performed by [facility] [place], [facility], [address] [place] [address] Naila Tolliver M.D., Ph.D., Director of Laboratories , CLIA [id number] [facility] METANEPHRINES, FRACTIONATED, LC/MS/MS, 24-HOUR URINE (BKR [facility])on 05-15-2024 24 HR URINE VOLUME - [facility] 2000 mL Normal [facility] Comment on above: Performed By: #### L [id number] ####[facility] (AMDBEAKER)[address] [place], [place] [facility] METANEPHRINE 109 mcg/24 h Normal 25-222 [facility] Comment on above: Result Comment: This test was developed and its analytical performancecharacteristics have been determined by [facility] [place], [place]. It hasnot been cleared or approved by the U.S. Food and DrugAdministration. This assay has been validated pursuantto the CLIA regulations and is used for clinicalpurposes. Performed By: #### L [id number] ####[facility] (AMDBEAKER)[address] [place], [place] [facility] METANEPHRINES, TOTAL 293 mcg/24 h Normal 94-604 [facility] Comment on above: Result Comment: A fo ur fold elevation of urinary normetanephrinesis extremely likely to be due to a tumor, while afour fold elevation of urinary metanephrines ishighly suggestive, but not diagnostic of the tumor.Measurement of plasma Metanephrines and ChromograninA is recommended for confirmation.Test Performed by [facility] [place],[address] [place] [id number] Tolliver M.D., Ph.D., Director of [phone], CLIA [id number] Performed By: #### L [id number] ####[employer] ([employer]Care[employer]ER)[address] [place], [place] [facility] NORMETANEPHRINE 184 mcg/24 h Normal 40-412 [facility] Comment on above: Result Comment: This test was developed and its analytical performancecharacteristics have been determined by [employer] [place], [place]. It hasnot been cleared or approved by the U.S. Food and DrugAdministration. This assay has been validated pursuantto the CLIA regulations and is used for clinicalpurposes. Performed By: #### L [id number] ####[employer] (AMDBEAKER)[address] [place] [facility] 17-HYDROXYPROGESTERONE ([facility]KR [facility])on 05-13-2024 [facility] 17-HYDROXYPROGESTERONE 17 ng/dL Normal [facility] Comment on above: Result Comment: Unable to flag abnormal result(s), please refer to reference range(s) below:Adult Female Reference Ranges for 17-Hydroxyprogesterone: Pre-Menopausal Mid Follicular: 23 - 102 ng/dL Pre-Menopausal Surge: 67 - 349 ng/dL Pre-Menopausal Mid Luteal: 139 - 431 ng/dL Postmenopausal Phase: < or = 45 ng/dL Female Taurus Stages: II - III Females: 18 - 220 ng/dL IV - V Females: 36 - 200 ng/dLIncludes data from J Clin Endocrinol Metab. 1991;73:674-686; J Clin Endocrinol Metab. 1989;69;1855-4333; J Clin Endocrinol Metab. 1994;78:226-270. Pediatr Res 1988;23:525-529. MedLinePlus (accessed 07/21/13).This test was developed and its analytical performancecharacteristics have been determined by [employer] [place], [place]. It hasnot been cleared or approved by the U.S. Food and DrugAdministration. This assay has been validated pursuantto the CLIA regulations and is used for clinicalpurposes.Test Performed by [facility] [place],[address] [place] [id number] Tolliver M.D., Ph.D., Director of [phone], CLIA [id number] Performed By: #### L [id number], [id number] ####[email or web address] (AMDBEAKER)[address] [place], [place] ANDROSTENEDIONE (BKR [facility]ST)o n 05-13-2024 [facility] ANDROSTENEDIONE 53 ng/dL [facility] Comment on above: Result Comment: Adul t Female Reference Ranges for Androstenedione: Mid Follicular: 51-213 ng/dL Surge: 73-230 ng/dL Mid Luteal: 73-184 ng/dL Postmenopausal Phase: 20-75 ng/dLThis test was developed and its analyticalperformance characteristics have been determinedby [employer]. It has not been cleared orapproved by the FDA. This assay has been validatedpursuant to the CLIA regulations and is used forclinical purposes.Test performed by [facility] [place] [id number] [place] [id number] Yscfali Director: Starla Ba MD,PHD,MBATest Reported by [facility] [place],[address] [place], [place] [address]Rycdkuejazz Tolliver M.D., Ph.D., Director of [phone], CLIA [id number] Performed By: #### L [id number] ####[facility] (AMDBEAKER)[address] [place], [place] CORTISOLon 05-13-2024 CORTISOL 6.9 ug/dL Normal 3.7-19.4 [facility] Comment on above: Result Comment: YESENIA Melendez COMMENTS:Before 10am 4.5-22.7 ug/dLAfter 5pm 1.7-14.1 ug/dL Performed By: #### L AB61, [id number], [id number], LAB86 ####[employer] Clerk: EMILIA HAGEN ([id number])[facility] ([facility])[address] [place] [address] Cortisolon 05-13-2024 Cortisol [Mass/Vol] 6.9 ug/dL 3.7 - 19 .4 ug/dL [facility] Before 10am 4.5-22.7 ug/dL After 5pm 1.7-14.1 ug/dL [facility] DHEA-SULFATE ([facility]on 05-13 DEHYDROEPIANDROSTERONE SULFATE (DHEA-S) 144 ???g/dL Normal 96-512 [facility] Comment on above: Result Comment: YESENIA Melendez COMMENTS:Values vary with stage of sexual development. DHEA-S assay should not be used to test samples form infants up to 60 days old. Performed By: #### Lola [id number] ####[employer] Clerk: EMILIA HAGEN ([id number])[facility] ([facility])[address] [place] [address] ESTRADIOLon 05-13-2024 ESTRADIOL <24 Normal <649 [facility] Comment on above: Result Comment: YESENIA Melendez COMMENTS:Values vary with stage of sexual development and/or menstrual cycle. This test is not recommended when low estradiol concentrations are expected.Females:Normal Follicular Phase ..... 26.6 - 161.0Normal Pre-ovulatory Peak ...... 187.0 - 382.0Normal Luteal Phase ......... 32.7 - 201.0Post-menopausal ...... 5.3 - 38.4Normal Males: 5.3 - 65.9 Performed By: #### L AB61, [id number], KPS263, LAB86 ####[employer] Clerk: EMILIA HAGEN ([id number])[facility]UST[facility] ([facility])[address] Estradiolon 05-13-2024 E2 [Mass/Vol] pg/mL NINF - 649 pg/mL [facility] Values vary with sta ge of sexual development and/or menstrual cycle. This test is not recommended when low estradiol concentrations are expected. Females: Normal Follicular Phase ..... 26.6 - 161.0 Normal Pre-ovulatory Peak ...... 187.0 - 382.0 Normal Luteal Phase ......... 32.7 - 201.0 Post-menopausal ...... 5.3 - 38.4 Normal Males: 5.3 - 65.9 [facility] FOLLICLE STIMULATING HORMONE on 05-13-2024 FOLLICLE STIM HORMONE 4.6 mIU/mL Normal 1.4-16.7 [facility] Comment on above: Result Comment: YESENIA Melendez COMMENTS:Values vary with stage of sexual development and/or menstrual cycle.Females:Follicular Phase ...... 2.0-11.6Mid-cycle Peak ........ 5.1-23.4Luteal Phase .......... 1.4-9.6Post-menopausal ....... 21.5-131.0Males: 1.6-9.7 Performed By: #### L AB61, [id number], [id number], LAB86 ####[employer] Clerk: EMILIA HAGEN ([id number])[facility] (SBHLAB)[address] FREE T4on 05-13-2024 Free T4 [Mass/Vol] 1.01 ng/dL Normal 0.70-1.48 [facility] Comment on above: Performed By: #### L AB129, [id number] ####[employer] Clerk: ALBERTINA SAUNDERS ([id number])[facility] BULMAROPURVI AMADOR (SWRLAB)[address] [place] [address] FSHon 05-13-2024 Follitropin Qn 4.6 m[IU]/mL [facility] Values vary with sta ge of sexual development and/or menstrual cycle. Females: Follicular Phase ...... 2.0-11.6 Mid-cycle Peak ........ 5.1-23.4 Luteal Phase .......... 1.4-9.6 Post-menopausal ....... 21.5-131.0 Males: 1.6-9.7 [facility] DNsolution Free T4 [Mass/Vol]on 025 Free T4 Dialysis [Mass/Vol] 1.01 ng/dL 0.70 - 1.48 ng/dL [facility]olution INSULIN ([facility]KR [facility])on 2024 [facility] INSULIN 7.0 uIU/mL Normal <=18.4 [facility] Comment on above: Result Comment: Risk :Optimal < or = 18.4Moderate NAHigh >18.4Adult cardiovascular event risk category cut points(optimal, moderate, high) are based onInsulin Reference interval studies performed at [facility] in 2021.Test Performed by [facility],[address] [place] [id number] Tolliver M.D., Ph.D., Director of [phone], [facility] [id number] Performed By: #### L AB720, [id number] ####[employer] (AMDBEAKER)[address] [place] [address] [facility] LUTEINIZING HORMONEon 2024 LUTEINIZING HORMONE 2.3 mIU/mL Normal 0.6-89.1 [facility] Comment on above: Result Comment: Fema les:Follicular Phase ...... 1.9-26.2Mid-Cycle Peak ........ 22.8-76.1Luteal Phase .......... 0.6-16.6Post-menopausal ....... 8.6-61.8 (Not on MHT)Males: 1.2-10.6ORDER COMMENTS:Values vary with sexual development and/or menstrual cycle. Performed By: #### L AB87, KHE836, IUZ141, DOO288 ####[employer] Clerk: EMILIA HAGEN ([id number])[facility] A[facility]UST[facility] (SBHLAB)[address] [place] [address] Luteinizing hormoneon 2024 Lutropin Qn 2.3 m[IU]/mL [facility] Comment on above: Females: Follicular Phase ...... 1.9-26.2 Mid-Cycle Peak ........ 22.8-76.1 Luteal Phase .......... 0.6-16.6 Post-menopausal ....... 8.6-61.8 (Not on MHT) Males: 1.2-10.6 Values vary with sex ual development and/or menstrual cycle. [facility] DNsolution METANEPHRINES, FRACTIONATED, FREE, LC/MS/MS, PLASMA (BKR [facility]ST)on 05-13-2024 QUEST METANEPHRINE, FREE <25 Normal <=57 [facility] DNsolution [facility] Comment on above: Result Comment: This test was developed and its analytical performancecharacteristics have been determined by [employer] [place], [place]. It hasnot been cleared or approved by the U.S. Food and DrugAdministration. This assay has been validated pursuantto the CLIA regulations and is used for clinicalpurposes. Performed By: #### L [id number] ####[facility] ([employer])[address] [place], [place] [facility] QUEST NORMETANEPHRINE, FREE 28 pg/mL Normal <=148 [facility] Comment on above: Result Comment: This test was developed and its analytical performancecharacteristics have been determined by [employer] [place], [place]. It hasnot been cleared or approved by the U.S. Food and DrugAdministration. This assay has been validated pursuantto the CLIA regulations and is used for clinicalpurposes. Performed By: #### L [id number] ####[facility] ([employer])[address] [place], [place] [facility] QUEST TOTAL, FREE (MN+NMN) 28 pg/mL Normal <=205 [facility] DNsolution [facility] Comment on above: Result Comment: For additional information, please refer tohttp://education.Passado/faq/MetFractFree(This link is being provided for informational/educatioinformational/educational purposes only.)Elevations >4-fold upper reference range: stronglysuggestive of a pheochromocytoma(1).Elevations >1- 4-fold upper reference range:significant but not diagnostic, may be due tomedications or stress. Suggest running 24 hr urinefractionated metanephrines and/or serum Chromagranin Afor confirmation.Reference:(1)Ana Lilia Guerrero et al, Plasma Chromogranin Aor Urine Fractionated Metanephrines Follow-Up TestingImproves the Diagnostic Accuracy of Plasma FractionatedMetanephrines for Pheochromocytoma. The Journal ofClinical Endocrinology # Metabolism 93(1), 91-95, 2007.This test was developed and its analytical performancecharacteristics have been determined by [employer] [place], [place]. It hasnot been cleared or approved by the U.S. Food and DrugAdministration. This assay has been validated pursuantto the CLIA regulations and is used for clinicalpurposes.Test Performed by [facility],[address] [place] [address] [id number] Tolliver M.D., Ph.D., Director of [phone], CLIA [id number] Performed By: #### L [id number] ####[employer] ([facility]ITALBENOR[facility])[address] [place] [address] [facility] No Panel Informationon 05-13 Interpretation and review of laboratory results Normal [facility] DNsolution [facility] Interpretation and review of laboratory results Normal [facility] Interpretation and review of laboratory results Normal [facility] PROGESTERONEon 05-13-2024 PROGESTERONE <0.5 Normal <15.9 [facility] Comment on above: Result Comment: ORDE R COMMENTS:Values vary with stage of , sexual development and/or menstrual cycle.*Females-Ovulatory*Follicular: 0.1 - 2.0Periovulatory: 0.4 - 4.5Mid Luteal: 5.2 - 22.7Luteal: 1.4 - 16.6* Females*1st Trimester (4-12 weeks gestation): 6.6 - 40.32nd Trimester (13-24 weeks gestation): 9.7 - 62.33rd Trimester (25-36 weeks gestation): 24.5 - 334.0Post Menopausal Females: 0.2 - 1.0Normal Males: 0.2 - 1.5 Performed By: #### L AB87, OQB960, QQC311, NQH298 ####[employer] Clerk: EMILIA HAGEN ([id number])[facility]RADIGN[facility] ([facility])[address] PROLACTINon 05-13-2024 PROLACTIN 40.1 ng/mL High 5.2-26.5 [facility] DNsolution [facility] Comment on above: Result Comment: YESENIA Melendez COMMENTS:Values vary with stage of sexual development. Macroprolactin should be evaluated in asymptomatic hyperprolactinemic subjects. Performed By: #### L AB61, [id number], ATU611, LAB86 ####[employer] Clerk: EMILIA HAGEN ([id number])[facility] (HLAB)[address] [place] [address] Progesteroneon 05-13-2024 Progesterone [Mass/Vol] ng/mL NINF - 15.9 ng/mL [facility] Values vary with sta ge of , sexual development and/or menstrual cycle. *Females-Ovulatory* Follicular: 0.1 - 2.0 Periovulatory: 0.4 - 4.5 Mid Luteal: 5.2 - 22.7 Luteal: 1.4 - 16.6 * Females* 1st Trimester (4-12 weeks gestation): 6.6 - 40.3 2nd Trimester (13-24 weeks gestation): 9.7 - 62.3 3rd Trimester (25-36 weeks gestation): 24.5 - 334.0 Post Menopausal Females: 0.2 - 1.0 Normal Males: 0.2 - 1.5 [facility] DNsolution Prolactin levelon 05-13-2024 Interpretation and review of laboratory results Abnormal [facility] Prolactin [Mass/Vol] 40.1 ng/mL High 5.2 - 2 6.5 ng/mL [facility] Values vary with sta ge of sexual development. Macroprolactin should be evaluated in asymptomatic hyperprolactinemic subjects. [facility] T3 FREEon 05-13-2024 Free T3 [Mass/Vol] 2.46 pg/mL Normal 1.58-3.91 [facility] Comment on above: Performed By: #### L AB87, ABJ773, JKO349, JMD646 ####[employer] Clerk: EMILIA HAGEN ([id number])[facility] (SBHLAB)[address] T3, freeon 05-13-2024 Free T3 [Mass/Vol] 2.46 pg/mL 1.58 - 3. 91 pg/mL [facility] TESTOSTERONEon 05-13-2024 Testosterone [Mass/Vol] 15 ng/dL Normal 14-53 [facility] Comment on above: Result Comment: Valu es vary with stage of sexual development. This test is not recommended when low testosterone concentrations are expected. Performed By: #### L AB87, MVU147, CMJ469, JJK859 ####[employer] Clerk: EMILIA HAGEN ([id number])[facility] TOROAmy (SBHLAB)[address] [place] [address] THYROID STIMULATING HORMONEo n 05-13-2024 THYROID STIMULATING HORMONE 0.72 uIU/mL Normal 0.35-4.94 [facility] Comment on above: Performed By: #### L AB129, LQK632 ####[employer] Clerk: ALBERTINA SAUNDERS ([id number])[facility] (SWRL[facility])[address] [place] [address] TSHon 05-13-2024 TSH Qn 0.72 m[IU]/L [facility] Testosteroneon 05-13-2024 Testosterone [Mass/Vol] 15 ng/dL 14 - 53 ng/dL [facility] Comment on above: Values vary with sta ge of sexual development. This test is not recommended when low testosterone concentrations are expected. CT HEAD WO IV CONTRASTon CT HEAD WO IV CONTRAST Normal [facility] CT Head WO contraston 2024 Partially visualized small right maxillary sinus fluid, retention cyst, or polyp. Otherwise unremarkable exam. Report Dictated on Electronically Signed By: Abdelrahman Perez MD Electronically Signed Date/Time: 04/30/2024 1:51 PM EDT [facility] Patient Name: MACHELLE MAY : 1995 Exam Date/Time: 04/30/2024 13:31 Procedure: CT HEAD WO IV CONTRAST Ordering Provider: PICHARDO ELIZABETH Reason For Exam: injury of the head, initial encounter UNENHANCED HEAD CT History: Head injury, migraine headache Comparison: None available Technique: Multislice axial CT sections obtained from the base to the vertex of the brain without IV contrast enhancement. Multiplanar sagittal and coronal reconstructed images also obtained. Dose reduction employed with automated exposure control. Findings: The cortical sulci, fissures, and ventricles are within normal limits in size for age. There is no intracranial hemorrhage, midline shift, abnormal densities, or mass effect in the brain. The exam is limited without contrast enhancement. The paranasal sinuses are not completely included but the visualized portion show small right maxillary sinus fluid level, retention cyst, or polyp. The bilateral mastoid air cells are clear. [facility] Abdelrahman Perez MD - 04/30/2024 Patient Name: MACHELLE MAY : 1995 Exam Date/Time: 04/30/2024 13:31 Procedure: CT HEAD WO IV CONTRAST Ordering Provider: PICHARDO ELIZABETH Reason For Exam: injury of the head, initial encounter UNENHANCED HEAD CT History: Head injury, migraine headache Comparison: None available Technique: Multislice axial CT sections obtained from the base to the vertex of the brain without IV contrast enhancement. Multiplanar sagittal and coronal reconstructed images also obtained. Dose reduction employed with automated exposure control. Findings: The cortical sulci, fissures, and ventricles are within normal limits in size for age. There is no intracranial hemorrhage, midline shift, abnormal densities, or mass effect in the brain. The exam is limited without contrast enhancement. The paranasal sinuses are not completely included but the visualized portion show small right maxillary sinus fluid level, retention cyst, or polyp. The bilateral mastoid air cells are clear. IMPRESSION: Partially visualized small right maxillary sinus fluid, retention cyst, or polyp. Otherwise unremarkable exam. Report Dictated on Electronically Signed By: Abdelrahman Perez MD Electronically Signed Date/Time: 04/30/2024 1:51 PM EDT [facility] DNsolution Radiology Study observation (narrative) [facility] DNsolution CT Head WO contrastOrdered B y: Abdelrahman Perez on 04-30-2024 [employer] Work Phone: Progress Noteon 04-17-2024 Progress Note Normal [facility] Colonoscopy Reporton 025 Colonoscopy Report [facility] Medical Records Department [address] [place] [address] Colonoscopy Report MR#: [id number] Acct: [id number] Name: MACHELLEMAY ELIZ Rep #: [id number] : 1995 28 From: Mesha Kelley DO PCP: Dr. Zachariah Rome DO Status:REG [facility] Patient Name: May Machelle Procedure Date: 04/02/2024 6:35 AM Date of : 1995 Age: 28 Procedure: Colonoscopy Indications: Hematochezia Providers: Mesha Kelley DO Referring MD: Zachariah Rmoe Medicines: Monitored Anesthesia Care Patient Profile: This is a 28 year old female. Refer to note in patient chart for documentation of history and physical. Last Colonoscopy: none. The patient's first colonoscopy is today. Complications: No immediate complications. Procedure: Pre-Anesthesia Assessment: - Prior to the procedure, a History and Physical was performed, and patient medications and allergies were reviewed. The patient is competent. The risks and benefits of the procedure and the sedation options and risks were discussed with the patient. All questions were answered and informed consent was obtained. Patient identification and proposed procedure were verified by the physician in the pre-procedure area. Mental Status Examination: alert and oriented. Airway Examination: normal oropharyngeal airway and neck mobility. Respiratory Examination: clear to auscultation. CV Examination: normal. Prophylactic Antibiotics: The patient does not require prophylactic antibiotics. Prior Anticoagulants: The patient has taken no anticoagulant or antiplatelet agents except for NSAID medication. ASA Grade Assessment: II - A patient with mild systemic disease. After reviewing the risks and benefits, the patient was deemed in satisfactory condition to undergo the procedure. The anesthesia plan was to use monitored anesthesia care (MAC). Immediately prior to administration of medications, the patient was re-assessed for adequacy to receive sedatives. The heart rate, respiratory rate, oxygen saturations, blood pressure, adequacy of pulmonary ventilation, and response to care were monitored throughout the procedure. The physical status of the patient was re-assessed after the procedure. After I obtained informed consent, the scope was passed under direct vision. Throughout the procedure, the patient's blood pressure, pulse, and oxygen saturations were monitored continuously. The Colonoscope was introduced through the anus and advanced to the terminal ileum. The colonoscopy was performed without difficulty. The patient tolerated the procedure well. The quality of the bowel preparation was adequate. The terminal ileum, ileocecal valve, appendiceal orifice, and rectum were photographed. Scope In: 6:57:24 AM Scope Withdrawal Time 0 hours 9 minutes 19 seconds Scope Out: 7:10:13 AM Total Procedure Duration Time 0 hours 12 minutes 49 seconds Findings: The perianal and digital rectal examinations were normal. Non-bleeding external and internal hemorrhoids were found during retroflexion. The hemorrhoids were Grade II (internal hemorrhoids that prolapse but reduce spontaneously). There was a small lipoma, 10 mm in diameter, at the splenic flexure. An area of mildly congested mucosa was found in the recto-sigmoid colon and in the transverse colon. Biopsies were taken with a cold forceps for histology. Verification of patient identification for the specimen was done. Estimated blood loss was minimal. The terminal ileum appeared normal. Biopsies were taken with a cold forceps for histology. Verification of patient identification for the specimen was done. Estimated blood loss was minimal. Impression: - Non-bleeding external and internal hemorrhoids. - Small lipoma at the splenic flexure. - Congested mucosa in the recto-sigmoid colon and in the transverse colon. Biopsied. - The examined portion of the ileum was normal. Biopsied. Recommendation: - Discharge patient to home. - Resume previous diet. - Continue present medications. - Await pathology results. - Repeat colonoscopy for screening purposes. Procedure Code(s): --- Professional --- 74496, Colonoscopy, flexible; with biopsy, single or multiple CPT copyright 2021 [employer]. All rights reserved. The codes documented in this report are preliminary and upon molasses preparer review may be revised to meet current compliance requirements. Mesha Kelley DO 04/02/2024 7:26:31 AM This report has been signed electronically. Number of Addenda: 0 Note Initiated On: 04/02/2024 6:35 AM 04/02/24726 Date Mesha Kelley DO Cosigner Signature: Date (if indicated) CC: Dr. Zachariah Rome DO; Mesha Kelley DO (more content not included)... [facility] MR/POSTOP.[facility] 04-02-2024 MR/POSTOP.[facility] Medical Records Department [address] [place] [address] Anesthesia Postop Eval I 04/02/24717 MR#: [id number] Acct: [id number] Name: MACHELLEMAY ELIZ Rep #: [id number] : 1995 28 From: Dameon Albarado PCP: Dr. Zachariah Rome DO Status:REG SDC Y Race: C Location: [place] [address] Anesthesia: Postop Eval I Current Vital Signs Temperature: 97.8 F Pulse Rate: 61 Blood Pressure: 98/63 Respiratory Rate: 16 Pulse Ox: 99 Oxygen Delivery Method: Room Air Assessment Airway patent: Yes Spontaneous unlabored respirations: Yes Mental status: Awake and Calm nausea: No Vomiting: No Anesthesia Complication: No Fluid Hydration Crystalloid volume administer (ml): 40 Total IV fluid infused: 40 Progress Note Anesthesia document: Postop Eval 1 completed: Yes 04/02/24718 Date Dameon [place] Signature: Date CC: Signed Normal [facility] MR/POSTOP.[facility] Medical Records Department [address] [place] [address] Anesthesia Postop Eval I 04/02/24623 MR#: [id number] Acct: [id number] Name: MACHELLEMAY ELIZ Rep #: [id number] : 1995 From: Jerry Becerril MD PCP: Dr. Zachariah Rome, DO Status:[facility] Y Race: C Location: Anesthesia: Postop Eval I Current Vital Signs Temperature: 97.8 F Pulse Rate: 61 Blood Pressure: 98/63 Respiratory Rate: 16 Pulse Ox: 99 Oxygen Delivery Method: Room Air Assessment Airway patent: Yes Spontaneous unlabored respirations: Yes Mental status: Awake and Calm nausea: No Vomiting: No Anesthesia Complication: No Fluid Hydration Crystalloid volume administer (ml): 0 Total IV fluid infused: 0 Progress Note Anesthesia document: Postop Eval 1 completed: Yes 04/02/24757 Date Jerry [place] Signature: Date CC: Signed Normal [facility] MR/[id number] 04-02-2024 MR/POST[address] Medical Records Department [address] [place] [address] Anesthesia Postop Eval II 04/02/24757 MR#: [id number] Acct: [id number] Name: MACHELLEMAY ELIZ Rep #: [id number] : 1995 From: Jerry Becerril MD PCP: Dr. Zachariah Rome, DO Status:[facility] Y Race: C Location: EN Anesthesia Postop Eval I Sum Postop Eval Completion status Anesthesia document: Postop Eval 1 completed: Yes Anesthesia Postop Eval I Summary Anesthesia Postop Eval I Summary: Anesthesia Postop Eval I: Assessment Summary Airway patent Yes 04/02/24 07:57 Spontaneous unlabored Yes 04/02/24 07:57 respirations Mental status Awake,Calm 04/02/24 07:57 nausea No 04/02/24 07:57 Vomiting No 04/02/24 07:57 Anesthesia Postop Eval I: Fluid Summary Crystalloid volume administer 0 04/02/24 07:57 (ml) Colloids volume administered ( ml) Blood Product volume administered (ml) Total IV fluid infused 0 04/02/24 07:57 Anesthesia Postop Eval I: Summary Notes Anesthesia Complication No 04/02/24 07:57 Anesthesia Complication Comment: Post-operative progress note Anesthesia: Postop Eval II Evaluation Mental status: Awake and Calm Pain Level: 2 nausea: No Vomiting: No Complications Anesthesia Complication: No 04/02/24 0759 Date Jerry Becerril MD Cosigner Signature: Date CC: Signed Normal [facility] ,Urineon 04-02-2024 Beta HCG ( test) Ql (U) Negative [facility] Comment on above: Result Comment: Very dilute urine specimens, as indicated by a low specific gravity, may not contain inventory representative levels of hCG. If is still suspected, a first morning urine specimen should be collected 48 hours later and tested. Performed By: #### L [phone] #### [facility] Laboratory [place], [address] Surgery Specimen Level Isabel 04-02-2024 Surgery Specimen Level IV Patient Age/Sex Location Account Attending Physician MACHELLEMay EN [id number] Mesha Kelley DO Specimen: [id number] Received: 04/02/24 Status: YOEL Milligan Num: [id number] Spec Type: COLON BX Subm Dr: Mesha Kelley, DO HEADER OPERATION: Colonoscopy and biopsy PRE-OP DIAGNOSIS: Abdominal pain and lower GI bleeding TISSUE SUBMITTED: A- Terminal ileum biopsy, B- Random colonic biopsies MICROSCOPIC DIAGNOSIS A. Terminal ileum, biopsy: Fragments of small intestinal mucosa, no pathologic diagnosis. Fragments of fecal material. See comment. B. Colon, random biopsy: Fragments of colonic mucosa, no pathologic diagnosis. SJ.mr 04/03/2024 COMMENT A. Prominent lymphoid aggregates are noted. MICROSCOPIC DESCRIPTION Slides are reviewed. GROSS DESCRIPTION A. Received in fixative is one container labeled with the patient's name and designated Terminal ileum biopsy. The specimen consists of multiple irregular fragments of light blair soft tissue that in aggregate measure 1.7 x 0.2 x 0.2 cm. The specimen is totally submitted in one cassette. B. Received in fixative is one container labeled with the patient's name and designated Random colon biopsy. The specimen consists of multiple irregular fragments of light blair soft tissue that in aggregate measure 1.3 x 0.3 x 0.2 cm. The specimen is totally submitted in one cassette. BW. 04/02/2024 TC:4 CPT:92959u2 Patient Age/Sex Location Account Attending Physician MACHELLEMay ANGI [id number] Mesha Kelley DO Signed (signature on file) Dr. Boris Rudd MD 04/03/24 1314 Normal [facility] Comment on above: Performed By: #### P SUIV #### [facility] Laboratory [address] [place], [address] MR/JESSIEon 03-31-2024 MR/PAT.D[facility] Medical Records Department [address] [place] [address] PAT - Anesthesia 03/31/24 1655 MR#: [id number] Acct: [id number] Name: MACHELLEMAY ELIZ Rep #: [id number] : 1995 28 From: Jerry Becerril MD PCP: Dr. 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 When Was Last Pacemaker Check QUESTION #4 FULL TEXT: You/Your Family Experience fever (hyperthermia) with Anesthesia Last Oral Intake Last Oral intake: Last Oral Intake NPO since Meds taken in AM with sips of water? 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 - engraver set up operator: PONV - engraver set up operator Female Yes 03/31/24 15:54 HX of Motion Sickness No 03/31/24 15:54 HX of N/V After Surgery No 03/31/24 15:54 Non-Smoker Yes 03/31/24 15:54 Duration of Surgery greater No 03/31/24 15:54 than 60 minutes Number of Risk Factors 2 03/31/24 15:54 PONV Score Moderate Risk 03/31/24 15:54 Height Weight Height Weight: Anesthesia: Height Weight Height 5 ft 6 in 01/22/24 08:27 Respiratory Assessment Respiratory Assessment - engraver set up operator: Respiratory Tract Infection Hx - engraver set up operator Hx Respiratory Tract Infection No 03/31/24 15:54 STOP Sleep Apnea STOP Sleep Apnea - engraver set up operator: STOP Sleep Apnea - engraver set up operator Hx Hypertension No 03/31/24 15:54 Hx Sleep Apnea No 03/31/24 15:54 CPAP BIPAP Do you snore loudly (louder No 03/31/24 15:54 than talking or can be heard Do you often feel tired/ No 03/31/24 15:54 fatigued/ sleepy during daytime? Has anyone observed you stop No 03/31/24 15:54 breathing during sleep? STOP Results Negative 03/31/24 15:54 QUESTION #5 FULL TEXT : Do you snore loudly (louder than talking or can be heard through closed doors)? 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 Specify any problems Hx of Preganancy in last 3 No 03/31/24 15:54 Months Nurse Filling Out Transfusion CPOWERS2 03/31/24 15:54 Questions: Date: 03/31/24 03/31/24 15:54 Time: 15:58 03/31/24 15:54 Patient unable to answer at this time (ie. confused, unrespo /Reproduction History /Reproductive History - engraver set up operator: /Reproductive Hx- engraver set up operator Hx Now No 03/31/24 15:54 Gestational Age (in weeks): EDC: Hx Hx Para Hx Section SAB Yes 03/31/24 15:54 PFSH Medical History (Updated 03/31/24 @ 16:01 by Jay Clemente) Thyroid disease Migraine headache History of Holter monitoring History of echocardiogram Cardiology follow-up encounter Vasovagal near syncope IBS (irritable bowel syndrome) GERD (gastroesophageal reflux disease) Diseases of the circulatory system complicating , unspecified trimester Supraventricular tachycardia, unspecified Supraventricular tachycardia during Heart palpitations History of kidney disease Hypothyroidism affecting Normal endoscopic ultrasound of upper gastrointestinal tract Seasonal allergies Supervision of high-risk Infertility associated with anovulation Home Medications ???Medication ???Instructions ???Recorded ???Last Taken ???Type L. crispatus, gasseri, jensenii, 2 tab PO DAILY 02/09/23 09/25/23 0 8:00 History rhamnosus 12 billion cell chew tablet (Culturelle Probiotic) docosahexaenoic acid 200 mg (more content not included)... Normal [facility] 36on 03-11-2024 36 Sent Trutap Message Normal [facility] Abdomen Limitedon 03-03-2024 Abdomen Limited [facility] Imaging Services [address] [place] [address] Abdomen Limited MR#: [id number] Acct: [id number] Name: MACHELLEMAY ELIZ Rep #: [id number] : 1995 F 28 From: Lucy Mejia PCP: Dr. Zachariah Rome, DO Status: REG CLI Study: Abdomen Limited Date of Exam: 03/03/24 Exam# [id number] Ordering Dr: Ngoc Hawkins [id number] INDICATION: RUQ pain with burning EXAMINATION: Ultrasound US Abdomen RUQ (limited) TECHNIQUE: Waite scale and color doppler imaging was performed of the right upper quadrant. COMPARISON: None. FINDINGS: LIVER: 17.2 cm length. Unremarkable. Main portal vein patent with appropriate direction of flow. GALLBLADDER Size: Distended. Stones: None. Wall thickness: Not thickened. 2 mm. Pericholecystic fluid: None. Sonographic Giron sign: Negative. EXTRAHEPATIC BILE DUCTS: Common bile duct 4 mm not dilated. PANCREAS: Unremarkable. RIGHT KIDNEY: No hydronephrosis. ASCITES: None. US/Abdomen Limited IMPRESSION: Unremarkable study. Electronically Signed: Lucy Bess MD at 8:03 EST , CC: Dr. Zachariah Rome DO; MILLI De La Vega Pocket Secretary Assembler: Signed [facility] 3602-20-2024 36 Nothing sooner for a new patient appointment. We will call patient if an opening comes up. My chart sent to patient . [facility] 36on 02-19-2024 36 [facility] Pelvic w/ Transvaginalon Pelvic w/ Transvaginal [facility] Imaging Services [address] [place], [place] [id number] Pelvic w/ Transvaginal MR#: [id number] Acct: [id number] Name: DULCE MARIA CARTY ELIZ Rep #: [id number] : 1995 F 28 From: Luis Daniel Mejia PCP: Dr. Zachariah Rome, Status: REG CLI Study: Pelvic w/ Transvaginal Date of Exam: 02/14/24 Exam# [id number] Ordering Dr: Pretty Matos DO [id number] STUDY: ULTRASOUND OF THE FEMALE PELVIS - COMPLETE REASON FOR EXAM: Female, 28 years old. left lower quadrant pain TECHNIQUE: Transvaginal and transabdominal imaging. COMPARISON: None. FINDINGS: The uterus is anteverted and is in a midline position. The uterus measures 6.5 cm. Normal uterine cervix. The endometrium measures 1 mm in thickness, and is hyperechoic. There is no demonstrated endometrial mass. There is no demonstrated myometrial mass. I.U.D. - The patient does not have an I.U.D. The right ovary is visualized. The right ovary measures 5.2 cm. There is no right ovarian cyst or ovarian mass. There is no visualized right adnexal mass or complex lesion. There is normal arterial and normal venous vascularity. The left ovary is visualized. The left ovary measures 3.9 cm. 14 mm simple cyst. There is no visualized left adnexal mass or complex lesion. There is normal arterial and normal venous vascularity. There is minimal fluid in the cul-de-sac. Urinary bladder volume is (in cc) 280. US/Pelvic w/ Transvaginal IMPRESSION: There are no acute findings. There is free fluid in the pelvis. This can be physiologic. Electronically Signed: Luis Daniel Kay MD at 21:49 EST , CC: Dr. Zachariah Rome DO; Dr. Pretty Matos DO Pocket Secretary Assembler: Signed Normal [facility] Calprotectinon 02-05-2024 Calprotectin (Stl) [Mass/Mass] 12 mcg/g Use It Better Comment on above: Reference Range: <50 Normal 50-120 Borderline >120 Elevated Calprotectin in Crohn's disease and ulcerative colitis can be five to several thousand times above the reference population (50 mcg/g or less). Levels are usually 50 mcg/g or less in healthy patients and with irritable bowel syndrome. Repeat testing in 4-6 weeks is suggested for borderline values. Test performed by [facility] [place] [id number] Fuel Oil Clerk: Starla Ba MD,PHD,ZAYNAB Test Reported by [facility], [address] [place], [place] Naila Tolliver M.D., Ph.D., Director of Laboratories , CLIA [id number] [facility] Pancreatic elastase, fecal ( [facility])on 02-05-2024 Elastase.pancreatic (Stl) [Mass/Mass] >800 - PINF [facility] Comment on above: E-1 mcg/g feces Interpretation <100 Severe exocrine pancreatic insufficiency 100-200 Mild to moderate exocrine pancreatic insufficiency >200 Normal Test performed by [facility] [address] [place], [place] [address] [address] Fuel Oil Clerk: Starla Ba MD,PHD,ZAYNAB Test Reported by [facility], [address] [place], [place] Naila Tolliver M.D., Ph.D., Director of Laboratories , CLIA [id number] [facility] Lactoferrin IA Ql (Stl)Order ed By: Nancy Bedoya on 01-29-2024 Interpretation and review of laboratory results Normal [facility] Lactoferrin (Stl) [Mass/Vol] Negative Negative [facility] Methodology: Enzyme Immunoassay [facility] CALPROTECTIN STOOL (BKR QUES T)on 01-28-2024 [facility] CALPROTECTIN, STOOL 12 mcg/g Normal [facility] Comment on above: Result Comment: Refe rence Range: <50 Normal 50-120 Borderline >120 ElevatedCalprotectin in Crohn's disease and ulcerativecolitis can be five to several thousand timesabove the reference population (50 mcg/g or less).Levels are usually 50 mcg/g or less in healthypatients and with irritable bowel syndrome. Repeattesting in 4-6 weeks is suggested for borderlinevalues.Test performed by [facility] [place] [address] [place] [address] Vqcvuud Director: Starla Ba MD,PHD,MBATest Reported by [facility],[address] [place] [address]Lffjquujazz Tolliver M.D., Ph.D., Director of [phone], CLIA [id number] Performed By: #### L [id number] ####[facility] (AMDBEAKER)[address] [place], [place] [facility] FECAL LACTOFERRINon 01-28-20 24 FECAL LACTOFERRIN LACTOFERRIN, FECAL Reference Negative Negative ORDER COMMENTS: Methodology: Enzyme Immunoassay Normal [facility] Comment on above: Performed By: #### L [id number], [id number] ####Fuel Oil Clerk: ALBERTINA SAUNDERS ([id number])[facility] ([facility])[address] [place] [address] GASTROINTESTINAL PCR PANELon 01-28-2024 GASTROINTESTINAL PCR PANEL Normal [facility] Comment on above: Performed By: #### L [id number], [id number] ####Fuel Oil Clerk: ALBERTINA SAUNDERS ([id number])[facility] ([facility])[address] [place] [address] [place] OVA AND PARASITES, CONC AND PERM SMEAR ([facility])on 01-28-2024 OVA AND PARASITES, CONC AND PERM SMEAR ([facility]) Normal [facility] Comment on above: Performed By: #### L [id number] ####[facility] (AMDBEAKER)[address] [place], [place] PANCREATIC ELASTASE, FECAL ( [facility])on 01-28-2024 [facility] PANCREATIC ELASTASE 1 >800 Normal >200 [facility] Comment on above: Result Comment: E-1 mcg/g feces Interpretation <100 Severe exocrine pancreatic insufficiency 100-200 Mild to moderate exocrine pancreatic insufficiency >200 NormalTest performed by [facility] [address] [place] [address] Ytjzxsd Director: Starla Ba MD,PHD,MBATest Reported by [facility],[address] [place], [place] [address]Gizrbdejazz Tolliver M.D., Ph.D., Director of [phone], CLIA [id number] Performed By: #### L [id number] ####[facility] (AMDBEAKER)[address] [place], [place] [facility] Gastroenterology Visit Repor ton 01-24-2024 Gastroenterology Visit Report [facility] Gastroenterology [address] [facility] [place] [address] OFFICE VISIT Date of Service: 01/24/24 MR#: [id number] Acct: [id number] Name: MACHELLEMAY ELIZ Rep #: [id number] : 1995 Provider: MILLI De La Vega Age/Sex: 28/F Location: [facility] Status: Signed Intake Vital Signs 01/21/24 13:34 01/22/24 08:27 Height 5 ft 6 in 5 ft 6 in Weight: 182 lb BMI 29.3 BP 111/76 Blood Pressure Location Lt brachial Position Sitting Respiration 18 Pulse 96 Pulse Source Monitor Pulse Oximetry (%) 96 Oxygen Delivery Method room air Intake Visit Reasons: L LOWER QUADRANT PAIN/BLOOD IN STOOL Chief Complaint: abd pain Allergies nitrofurantoin Allergy (Severe, Verified 01/21/24 13:37) difficulty breathing alprazolam Adverse Reaction (Intermediate, Verified 01/21/24 13:37) PT UNSURE OF REACTION quetiapine Adverse Reaction (Intermediate, Verified 01/21/24 13:37) PT UNSURE OF REACTION Post menopausal: No Patient : No Have you fallen in the past year?: No Nurse's Note: OV 01.24.24 Pt here to establish care with [facility] for nausea, abdominal pain, and loose stools. Reports she feels like she has hemorrhoids and has seen blood in her stools occasional. Pt reports she feels dizzy and flushed throughout the day. States "it feels like tunnel vision" Was dairy free for two months. Prior colonoscopy and EGD in 2016. [facility] Medical History Vasovagal near syncope IBS (irritable bowel syndrome) GERD (gastroesophageal reflux disease) Diseases of the circulatory system complicating , unspecified trimester Supraventricular tachycardia, unspecified Supraventricular tachycardia during Heart palpitations History of kidney disease Hypothyroidism affecting Normal endoscopic ultrasound of upper gastrointestinal tract Seasonal allergies Supervision of high-risk Infertility associated with anovulation Surgical History Hx of tonsillectomy [place] teeth extracted History of tonsillectomy Family History Grandmother Colon cancer Diabetes Mother Diabetes Pancreatic cancer Social History adopted: No household members: spouse and children number of children: 2 current occupational status: unemployed current occupation: [employer] current occupational exposures/hazards: No pets and animals: Yes (NOT MANAGING LITTERBOX) pets and animals: cat(s), dog(s), horse(s) and farm animals history of recent travel: No sexually active: Yes Smoking Status: Never smoker alcohol intake: never substance use type: does not use diet: other well-balanced diet: daily or most days caffeine: No eating out: 1-3 times/week during the past year weight has: remained stable what type of physical activity do you participate in: weight training frequency: 5-6 times per week duration: 15-30 minutes/day gale/restoration: Anglican seatbelt use: always do you feel safe at home: Yes additional social history: - LUKE HPI HPI Chief Complaint: abd pain Details: DULCE MARIA CARTY, is a 28 F who presents to the office today for establishment with [facility]. Pt has been struggling with abd pain since being with her second child. It started in the left lower quadrant but has no migrated to the right side. She is also having some epigastric pain and heartburn. She has been having more frequent and loose stool over the past couple of weeks. She is having a bm up to 3 times per day. She was diary free for some time and recently added daily marina in and she feels this may be a part of her issues. She has a family hx of pancreatic cancer. Her mother from this in her 50s. She feels nervous about this and is worried she may have a pancreas problem. ROS Const Constitutional: Positive for fatigue and weight change; No fever(s) ENT ENT: No difficulty swallowing Cardio Cardiology: Positive for leg pain with exertion Gastro GI: Positive for abdominal pain, bloating, change in bowel habits, diarrhea, heartburn, excessive flatus, Blood in stool and nausea/dyspepsia; No belching, change in stool character, coffee ground emesis, constipation, cramping, difficulty swallowing, feeling full early, incontinent of stools, Vomiting blood/hematemesis, loose stools, Black,tarry stools, pain with swallowing, vomiting or other Musc Musculoskeletal: Positive for back pain, muscle weakness, numbness, stiffness, tingling, sciatica, leg pain at night and leg pain with exertion; No joint pain Skin Skin: Positive for dry skin and itchy eyes; No yellowing of the eye Neuro Neurology: Positive for dizziness, numbness, tingling a (more content not included)... Normal [facility] Icebox Worker Office Visit Reporton 01-21-2024 Icebox Worker Office Visit Report [facility] [address], [address] [place] [address] OFFICE VISIT Date of Service: 01/21/24 MR#: [id number] Acct: [id number] Name: MACHELLEMAY ELIZ Rep #: [id number] : 1995 Provider: Dr. Pretty Francis DO Age/Sex: 28/F Location: [facility] Status: Signed Intake Vital Signs 01/10/24 09:11 01/10/24 10:01 01/21/24 13:34 Height 5 ft 6 in 5 ft 6 in 5 ft 6 in Weight: 180 lb 182 lb BMI 29.0 29.3 BP 96/65 111/76 Blood Pressure Location Rt brachial Lt brachial Position Sitting Sitting Respiration 17 18 Pulse 83 96 Pulse Source Monitor Monitor Pulse Oximetry (%) 99 96 Oxygen Delivery Method room air room air Intake Visit Reasons: Pelvic pain Chief Complaint: Pelvic Pain Home Care Administrator Required: No Is patient in pain?: Yes (pelvic pain ) Pain scale (1-10): 3 Allergies nitrofurantoin Allergy (Severe, Verified 01/21/24 13:37) difficulty breathing alprazolam Adverse Reaction (Intermediate, Verified 01/21/24 13:37) PT UNSURE OF REACTION quetiapine Adverse Reaction (Intermediate, Verified 01/21/24 13:37) PT UNSURE OF REACTION Medications ???Medication ???Instructions ???Recorded ???Confirmed ???Type L. crispatus, gasseri, jensenii, 2 tab PO DAILY 02/09/23 01/21/24 History rhamnosus 12 billion cell chew tablet (Culturelle Probiotic) docosahexaenoic acid 200 mg 200 mg PO DAILY 06/26/23 01/21/24 History capsule ( DHA) Post menopausal: No Patient : No : No Nurse's Note: pelvic pain PFSH Medical History Vasovagal near syncope IBS (irritable bowel syndrome) GERD (gastroesophageal reflux disease) Diseases of the circulatory system complicating , unspecified trimester Supraventricular tachycardia, unspecified Supraventricular tachycardia during Heart palpitations History of kidney disease Hypothyroidism affecting Normal endoscopic ultrasound of upper gastrointestinal tract Seasonal allergies Supervision of high-risk Infertility associated with anovulation Surgical History Hx of tonsillectomy [place] teeth extracted History of tonsillectomy Family History Grandmother Colon cancer Diabetes Mother Diabetes Pancreatic cancer Social History adopted: No household members: spouse and children number of children: 2 current occupational status: unemployed current occupation: [employer] current occupational exposures/hazards: No pets and animals: Yes (NOT MANAGING LITTERBOX) pets and animals: cat(s), dog(s), horse(s) and farm animals history of recent travel: No sexually active: Yes Smoking Status: Never smoker alcohol intake: never substance use type: does not use diet: other well-balanced diet: daily or most days caffeine: No eating out: 1-3 times/week during the past year weight has: remained stable what type of physical activity do you participate in: weight training frequency: 5-6 times per week duration: 15-30 minutes/day gale/restoration: Anglican seatbelt use: always do you feel safe at home: Yes additional social history: - ERICKE HPI Pelvic pain Details: DULCE MARIA CARTY is a 28 year old who presents for discussion about pelvic pain on the left groin/hip that is worse in the am. It gets a little better after urination but then just seems to get worse and worse throughout the day again after that. She states that the pain started in (delivered in september this year) but she was hoping that the pain would get better after delivery. She has noticed some blood in her stool lately but thought it was just a hemorrhoid. History 2 Elective abortions Hx Para 1 Spontaneous abortions Hx # Term Pregnancies Ectopic pregnancies Hx # Pregnancies Multiple births # of living children 2 Past Pregnancies Del. Date Name GA/Weeks Outcome Route Bth Weight Gen Labor Lgth Anesthesia Del Locatn Provider FOB 09/15/20 Leandro 41 live - full term 8#2oz Male epidural [facility] on [facility] Dr. Valeria Jones 09/26/23 Alverto 40 live - full term 8lbs 6oz Male [facility] Rush ROS Const ROS Unobtainable: All systems reviewed are unremarkable except as noted in H Resp Resp: Reports system reviewed and no additional complaints, except as documented; Denies cough GI GI: Reports as per HPI Psych Psych: Reports system reviewed and no additional complaints, except as documented Exam Const General: cooperative, healthy appearing, comfortable and no acute distress Resp Effo (more content not included)... Normal [facility] CREATININE, URINE, RANDOMon 01-16-2024 CREATININE, URINE 144.9 mg/dL High 47.0-110.0 [facility] Comment on above: Result Comment: YESENIA Melendez COMMENTS:Concentration is based on a daily urine output of 1.5 L. Performed By: #### L [id number], [id number] ####Fuel Oil Clerk: ALBERTINA SAUNDERS ([id number])[facility] (SWRLAB)[address] [place] [address] [place] Creatinine (U) [Mass/Vol]on 01-16-2024 Concentration is bas ed on a daily urine output of 1.5 L. [facility] No Panel Informationon 01-15 CREATININE, URINE 144.9 mg/dL High 47.0 - 110 .0 mg/dL [facility] Interpretation and review of laboratory results Abnormal [facility] PROTEIN, URINE, RANDOMon Protein (U) [Mass/Vol] 9 mg/dL Normal <14 [facility] Comment on above: Performed By: #### L [id number], [id number] ####Fuel Oil Clerk: ALBERTINA SAUNDERS ([id number])[facility] [address] (SWRLAB)[address] [place] [address] [place] Protein, urine, randomon Protein (U) [Mass/Vol] 9 mg/dL NINF - 14 mg/dL [facility] RENAL FUNCTION PANELon 01-15 Albumin [Mass/Vol] 3.7 g/dL Normal 3.5-5.0 [facility] Comment on above: Performed By: #### L [id number] ####Fuel Oil Clerk: ALBERTINA SAUNDERS ([id number])[facility] [address] (SWRLAB)[address] [place] [address] [place] Anion gap [Moles/Vol] 5 mmol/L Normal 3-13 [facility] Comment on above: Performed By: #### L [id number] ####Fuel Oil Clerk: ALBERTINA SAUNDERS ([id number])[facility] [address] (SWRLAB)[address] [place] [address] [place] Calcium [Mass/Vol] 9.0 mg/dL Normal 8.4-10.2 [facility] Comment on above: Performed By: #### L [id number] ####Fuel Oil Clerk: ALBERTINA SAUNDERS ([id number])[facility] [address]LA[facility] (SWRLAB)[address] [place] [address] [place] Chloride [Moles/Vol] 108 mmol/L High 98-107 [facility] Comment on above: Performed By: #### L [id number] ####Fuel Oil Clerk: ALBERTINA SAUNDERS ([id number])[facility] [address] (SWRLAB)[address] [place] [address] [place] CO2 [Moles/Vol] 29 mmol/L Normal 22-29 [facility] Comment on above: Performed By: #### L [id number] ####Fuel Oil Clerk: ALBERTINA SAUNDERS ([id number])[facility] [address] (SWRLAB)[address] Creatinine [Mass/Vol] 0.96 mg/dL Normal 0.57-1.11 [facility] Comment on above: Performed By: #### L [id number] ####Fuel Oil Clerk: ALBERTINA SAUNDERS ([id number])[facility]LA[facility] [address] (SWRLAB)[address] [place] [address] [place] GLOMERULAR FILTRATION RATE ML/MIN/1.73 SQ M.PREDICTED 82.3 mL/min/1.73m*2 Normal >60.0 [facility] Comment on above: Result Comment: Calc ulation based on the Chronic Kidney Disease Epidemiology Collaboration (CKD-EPI) equation refit without adjustment for race Performed By: #### L [id number] ####Fuel Oil Clerk: ALBERTINA SAUNDERS ([id number])[facility]LA[facility] [place] (SWRLAB)[address] [place] [address] [place] Glucose [Mass/Vol] 92 mg/dL Normal 74-100 [facility] Comment on above: Performed By: #### L [id number] ####Fuel Oil Clerk: ALBERTINA SAUNDERS ([id number])[facility] [address] (SWRLAB)[address] [place] [address] [place] Phosphate [Mass/Vol] 4.0 mg/dL Normal 2.3-4.7 [facility] Comment on above: Performed By: #### L [id number] ####Fuel Oil Clerk: ALBERTINA SAUNDERS ([id number])[facility] GOMEZTMAN (SWRLAB)[address] Potassium [Moles/Vol] 4.1 mmol/L Normal 3.5-5.1 [facility] Comment on above: Result Comment: [facility] potassium values may be up to 0.5 mmol/L lower than serum values. Performed By: #### L [id number] ####Fuel Oil Clerk: ALBERTINA SAUNDERS ([id number])[facility] GOMEZTMAN (SWRLAB)[address] Sodium [Moles/Vol] 142 mmol/L Normal 136-145 [facility] Comment on above: Performed By: #### L [id number] ####Fuel Oil Clerk: ALBERTINA SAUNDERS ([id number])[facility] OLMOSAN (SWRLAB)[address] [place] [address] Urea nitrogen [Mass/Vol] 16 mg/dL Normal 8-21 [facility] Comment on above: Performed By: #### L [id number] ####Fuel Oil Clerk: ALBERTINA SAUNDERS ([id number])[facility] BUL[address]O OLMOSAN (SWRLAB)[address] [place] [address] Renal function 2000 panelon 01-16-2024 Albumin [Mass/Vol] 3.7 g/dL 3.5 - 5.0 g/dL [facility] Anion gap [Moles/Vol] 5 mmol/L 3 - 13 mmol/L [facility] Calcium [Mass/Vol] 9 mg/dL 8.4 - 10. 2 mg/dL [facility] Chloride [Moles/Vol] 108 mmol/L High 98 - 10 7 mmol/L [facility] CO2 [Moles/Vol] 29 mmol/L 22 - 29 mmol/L [facility] Creatinine [Mass/Vol] 0.96 mg/dL 0.57 - 1.11 mg/dL [facility] GFR/1.73 sq M.predicted (S/P/Bld) [Vol rate/Area] 82.3 mL/min - PINF [facility] Comment on above: Calculation based on the Chronic Kidney Disease Epidemiology Collaboration (CKD-EPI) equation refit without adjustment for race Glucose [Mass/Vol] 92 mg/dL 74 - 100 mg/dL [facility] Interpretation and review of laboratory results Abnormal [facility] Phosphate [Mass/Vol] 4 mg/dL 2.3 - 4 .7 mg/dL [facility] Potassium [Moles/Vol] 4.1 mmol/L 3.5 - 5.1 mmol/L [facility] Comment on above: Plasma potassium eliezer ues may be up to 0.5 mmol/L lower than serum values. Sodium [Moles/Vol] 142 mmol/L 136 - 145 mmol/L [facility] Urea nitrogen [Mass/Vol] 16 mg/dL 8 - 21 mg/dL [facility] Surgery Visit Reporton 01-09 Surgery Visit Report [facility] [address] [place] [address] OFFICE VISIT Date of Service: 01/10/24 MR#: [id number] Acct: [id number] Name: MACHELLEMAY ELIZ Rep #: [id number] : 1995 Provider: Dr. Lawrence hernandez MD Age/Sex: 28/F Location: [facility] Status: Signed Intake Vital Signs 12/18/23 08:05 01/10/24 09:11 Height 5 ft 6 in 5 ft 6 in Weight: 186 lb 6 oz 180 lb BMI 30.0 29.0 BP 117/79 96/65 Blood Pressure Location Rt brachial Rt brachial Position Sitting Sitting Respiration 18 17 Pulse 92 83 Pulse Source Monitor Monitor Temp 97.5 F L Temp Source Temporal Pulse Oximetry (%) 99 99 Oxygen Delivery Method room air room air Intake Visit Reasons: S/P BREAST BIOPSY Chief Complaint: s/p breast biopsy Is patient in pain?: No Allergies nitrofurantoin Allergy (Severe, Verified 01/10/24 09:13) difficulty breathing alprazolam Adverse Reaction (Intermediate, Verified 01/10/24 09:13) PT UNSURE OF REACTION quetiapine Adverse Reaction (Intermediate, Verified 01/10/24 09:13) PT UNSURE OF REACTION Medications ???Medication ???Instructions ???Recorded ???Confirmed ???Type L. crispatus, gasseri, jensenii, 2 tab PO DAILY 02/09/23 01/10/24 History rhamnosus 12 billion cell chew tablet (Culturelle Probiotic) docosahexaenoic acid 200 mg 200 mg PO DAILY 06/26/23 01/10/24 History capsule ( DHA) [facility] Medical History Vasovagal near syncope IBS (irritable bowel syndrome) GERD (gastroesophageal reflux disease) Diseases of the circulatory system complicating , unspecified trimester Supraventricular tachycardia, unspecified Supraventricular tachycardia during Heart palpitations History of kidney disease Hypothyroidism affecting Normal endoscopic ultrasound of upper gastrointestinal tract Seasonal allergies Supervision of high-risk Infertility associated with anovulation Surgical History Hx of tonsillectomy [place] teeth extracted History of tonsillectomy Family History Grandmother Colon cancer Diabetes Mother Diabetes Pancreatic cancer Social History adopted: No household members: spouse and children number of children: 2 current occupational status: unemployed current occupation: [employer] current occupational exposures/hazards: No pets and animals: Yes (NOT MANAGING LITTERBOX) pets and animals: cat(s), dog(s), horse(s) and farm animals history of recent travel: No sexually active: Yes Smoking Status: Never smoker alcohol intake: never substance use type: does not use diet: other well-balanced diet: daily or most days caffeine: No eating out: 1-3 times/week during the past year weight has: remained stable what type of physical activity do you participate in: weight training frequency: 5-6 times per week duration: 15-30 minutes/day gale/restoration: Anglican seatbelt use: always do you feel safe at home: Yes additional social history: - [place] HPI HPI HPI: The patient is a 28-year-old female who returns today to discuss results of her recent left breast biopsy for a palpable lump in the upper outer quadrant of the left breast. This measured less than 2 cm. This was initially thought to be a fibroadenoma however biopsy showed a lactational/tubular adenoma. Initially patient at the time of biopsy was interested in having this removed however she seems to be oriented to wait a while before proceeding with biopsy. She does have 2 small children and is currently breast-feeding. We did discuss that this is a benign diagnosis but nevertheless there is possibility of sampling error and many times patients will opt to have a palpable lump removed just for peace of mind. ROS General General: No weight change, appetite, fatigue, colon cancer, breast cancer or weakness Additional Details: 2 month pp HEENT HEENT: No difficulty swallowing, eye injury, eye surgery, swollen glands or hoarseness Endo Endocrine: Yes thyroid disease; No diabetes mellitus, thyroid cancer, Hair loss, heat intolerance or cold intolerance Skin Skin: No rash or changing moles Breast Breast: Yes left breast lump and abnormal US; No right breast lump, nipple discharge, breast pain, abnormal mammogram or breast enlargement Musc Musculoskeletal: No back problems, arthritis, rheumatoid arthritis, gout or joint pain Cardio Cardiovascular: No murmur, pacemaker, heart disease, atrial fibrillation, high blood pressure, heart attack, heart stent, palpitations, shortness of breat with exerti (more content not included)... Normal [facility] Basophil percentageOrdered B y: Pretty Josue on 05-09-2023 Bilirubin [Mass/Vol] 0.50 mg/dL 0.20-1.00 [facility] Comment on above: For patients on eltr ombopag therapy, use of [place] TBIL is not recommended. Chloride [Moles/Vol] 107 mmol/L 98-107 [facility] Glucose [Mass/Vol] 85 mg/dL 74-106 [facility] Hemoglobin (Bld) [Mass/Vol] 12.5 g/dL 12.0-15.0 [facility] Potassium [Moles/Vol] 3.7 mmol/L 3.5-5.1 [facility] Protein [Mass/Vol] 6.3 g/dL 6.4-8.2 [facility] Sodium [Moles/Vol] 136 mmol/L 136-145 [facility] WBC (Bld) [#/Vol] 8.2 10*3/uL 4.4-11.0 [facility] Determination of erythrocyte mean corpuscular volume (MCV)Ordered By: Pretty Josue on 05-09-2023 MCV (RBC) [Entitic vol] 87.9 fL 81-99 [facility] Erythrocyte distribution wid th ratioOrdered By: Pretty Josue on 05-09-2023 Erythrocyte distribution width (RBC) [Ratio] 14.0 % 11.6-14.6 [facility] Erythrocyte distribution wid th standard deviationOrdered By: Pertty Josue on 05-09-2023 Erythrocyte distribution width (RBC) [Entitic vol] 44.1 fL 35.1-43.9 [facility] Hematocrit Auto (Bld) [Volum e fraction]Ordered By: Pretty Josue on 05-09-2023 Hematocrit (Bld) [Volume fraction] 37.1 % 37-47 [facility] Laboratory - Chemistry and C hemistry - challengeOrdered By: Pretty Josue on 05-09-2023 Albumin/Globulin [Mass ratio] 1.0 {ratio} 0.9-2.4 [facility] ALP [Catalytic activity/Vol] 38 U/L 45-117 [facility] ALT [Catalytic activity/Vol] 17 U/L 13-56 [facility] CO2 [Moles/Vol] 24.0 mmol/L 21.0-32.0 [facility] Globulin (S) [Mass/Vol] 3.2 g/dL 2.2-4.2 [facility] Urea nitrogen/Creatinine [Mass ratio] 25.0 mg/mg 10-20 [facility] Laboratory - Hematology and Cell countsOrdered By: Pretty Josue on 05-09-2023 MCH (RBC) [Entitic mass] 29.6 pg 27.0-32.0 [facility] MCHC (RBC) [Mass/Vol] 33.7 g/dL 32-36 [facility] Platelet mean volume (Bld) [Entitic vol] 10.3 fL 6.2-12.0 [facility] Platelets (Bld) [#/Vol] 154 10*3/uL 150-450 [facility] No Panel InformationOrdered By: Pretty Josue on 05-09-2023 Estimated GFR (MDRD) Amer 166 mL/min >60 [facility] Comment on above: GFR Calc Estimated GFR (MDRD) Non-Af Amer 137 mL/min >60 [facility] Comment on above: Non- GFR Calc RBC Auto (Bld) [#/Vol]Ordere d By: Pretty Josue on 05-09-2023 RBC (Bld) [#/Vol] 4.22 10*6/uL 4.2-5.4 [facility] Serum or plasma calcium willow urement (mass/volume)Ordered By: Pretty Josue on 05-09-2023 Calcium [Mass/Vol] 8.3 mg/dL 8.5-10.1 [facility] Serum or plasma creatinine m easurement (mass/volume)Ordered By: Pretty Josue on 05-09-2023 Creatinine [Mass/Vol] 0.56 mg/dL 0.55-1.02 [facility] Comment on above: The validity of the calculated GFR & GFRAA in patients over 70 years has not been determined. Clinical correlation is essential. Serum or plasma thyroid stim ulating hormone (TSH) measurement (units/volume)Ordered By: Pretty Josue on 05-09-2023 TSH Qn 0.73 uIU/mL 0.358-3.74 [facility] Serum or plasma urea nitroge n measurement (mass/volume)Ordered By: Pretty Josue on 05-09-2023 Urea nitrogen [Mass/Vol] 14 mg/dL 7-18 [facility] Thin prep Papanicolaou smear with manual screeningOrdered By: Pretty Josue on 05-09-2023 Protein (U) [Mass/Vol] 12.5 mg/dL 0.0-11.8 [facility] Thin prep Papanicolaou smear with manual screening 3.1 g/dL 3.2-5.0 [facility] Thin prep Papanicolaou smear with manual screening 14 U/L 15-37 [facility] Thin prep Papanicolaou smear with manual screening 5 5-15 [facility] Urine creatinine measurement (mass/volume)Ordered By: Pretty Josue on 05-09-2023 Creatinine (U) [Mass/Vol] 114.00 mg/dL NO RANGE EST. [facility] Urine protein/creatinine mas s ratioOrdered By: Pretty Josue on 05-09-2023 Protein/Creatinine (U) [Mass ratio] 110 mg/g CRE 0-200 [facility] Laboratory - Chemistry and C hemistry - challengeon 04-09-2023 Glucose Ql (U) Negative [facility] Laboratory - Urinalysison Protein Ql (U) Negative [facility] Renal function 2000 panelon 04-04-2023 Albumin [Mass/Vol] 3.8 g/dL 3.5 - 5.0 g/dL [facility] Anion gap [Moles/Vol] 6 mmol/L 3 - 13 mmol/L [facility] Calcium [Mass/Vol] 8.7 mg/dL 8.4 - 10. 4 mg/dL [facility] Chloride [Moles/Vol] 108 mmol/L High 98 - 10 7 mmol/L [facility] CO2 [Moles/Vol] 21 mmol/L Low 22 - 30 mmol/L [facility] Creatinine [Mass/Vol] 0.60 mg/dL 0.52 - 1.04 mg/dL [facility] GFR/1.73 sq M.predicted MDRD (S/P/Bld) [Vol rate/Area] - PINF [facility] Comment on above: Calculation based on the Chronic Kidney Disease Epidemiology Collaboration (CKD-EPI) equation refit without adjustment for race Glucose [Mass/Vol] 83 mg/dL 70 - 100 mg/dL [facility] Interpretation and review of laboratory results Abnormal [facility] Phosphate [Mass/Vol] 3.5 mg/dL 2.5 - 4 .5 mg/dL [facility] Potassium [Moles/Vol] 4.0 mmol/L 3.5 - 5.1 mmol/L [facility] Sodium [Moles/Vol] 134 mmol/L Low 135 - 145 mmol/L [facility] Urea nitrogen [Mass/Vol] 11 mg/dL 7 - 17 mg/dL [facility] Laboratory - Chemistry and C hemistry - challengeon 03-16-2023 Glucose Ql (U) Negative [facility] Laboratory - Urinalysison Protein Ql (U) Negative [facility] Absolute lymphocyte countOrd ered By: Phylicia Mc on 02-14-2023 Lymphocytes Auto (Unsp spec) [#/Vol] 1.24 10*3/uL 0.83-4.51 [facility] Basophil percentageOrdered B y: Phylicia Mc on 02-14-2023 Basophils/100 WBC (Bld) 0.6 % 0-1 [facility] Bilirubin [Mass/Vol] 0.70 mg/dL 0.20-1.00 [facility] Comment on above: For patients on eltr ombopag therapy, use of [place] TBIL is not recommended. Chloride [Moles/Vol] 106 mmol/L 98-107 [facility] Eosinophils/100 WBC (Bld) 0.4 % 0-5 [facility] Glucose [Mass/Vol] 76 mg/dL 74-106 [facility] Neutrophils (Bld) [#/Vol] 5.4 10*3/uL 2.0-7.7 [facility] Neutrophils/100 WBC (Bld) 76.0 % 47-70 [facility] Potassium [Moles/Vol] 3.9 mmol/L 3.5-5.1 [facility] Protein [Mass/Vol] 7.1 g/dL 6.4-8.2 [facility] Sodium [Moles/Vol] 136 mmol/L 136-145 [facility] WBC (Bld) [#/Vol] 7.1 10*3/uL 4.4-11.0 [facility] Blood erythrocytes count (nu mber/volume)Ordered By: Phylicia Mc on 02-14-2023 RBC (Bld) [#/Vol] 4.75 10*6/uL 4.2-5.4 [facility] Blood hemoglobin measurement (mass/volume)Ordered By: Phylicia Mc on 02-14-2023 Hemoglobin (Bld) [Mass/Vol] 13.6 g/dL 12.0-15.0 [facility] Blood lymphocytes/100 leukoc ytesOrdered By: Phylicia Mc on 02-14-2023 Lymphocytes/100 WBC (Bld) 17.6 % 19-41 [facility] Blood monocytes/100 leukocyt esOrdered By: Phylicia Mc on 02-14-2023 Monocytes/100 WBC (Bld) 5.1 % 0-10 [facility] Blood platelet mean volumeOr dered By: Phylicia Mc on 02-14-2023 Platelet mean volume (Bld) [Entitic vol] 10.4 fL 6.2-12.0 [facility] Chlamydia trachomatis rRNA d etection by probe and target amplification methodOrdered By: Phylicia Mc on 02-14-2023 C. trachomatis rRNA [place]+probe Ql (Unsp spec) Negative Negative [facility] Culture, urineOrdered By: Nevaeh Mc on 02-14-2023 Bacteria identified Cx Nom (U) Positive [facility] Bacteria identified Cx Nom (U) Positive [facility] Determination of erythrocyte mean corpuscular volume (MCV)Ordered By: Phylicia Mc on 02-14-2023 MCV (RBC) [Entitic vol] 86.7 fL 81-99 [facility] HIV 1 and HIV-2 antibody ass ay with HIV-1 p24 antigen detectionOrdered By: Phylicia Mc on 02-14-2023 HIV 1+2 Ab+HIV1 p24 Ag IA Ql Non-Reactive Nonreactive [facility] Hematocrit Auto (Bld) [Volum e fraction]Ordered By: Phylicia Mc on 02-14-2023 Hematocrit (Bld) [Volume fraction] 41.2 % 37-47 [facility] Laboratory - Chemistry and C hemistry - challengeOrdered By: Phylicia Mc on 02-14-2023 ALP [Catalytic activity/Vol] 52 U/L 45-117 [facility] ALT [Catalytic activity/Vol] 16 U/L 13-56 [facility] CO2 [Moles/Vol] 24.0 mmol/L 21.0-32.0 [facility] Free T4 [Mass/Vol] 1.06 ng/dL 0.76-1.46 [facility] Globulin (S) [Mass/Vol] 3.4 g/dL 2.2-4.2 [facility] Urea nitrogen/Creatinine [Mass ratio] 13.5 mg/mg 10-20 [facility] Laboratory - Hematology and Cell countsOrdered By: Phylicia Mc on 02-14-2023 Erythrocyte distribution width (RBC) [Entitic vol] 39.2 fL 35.1-43.9 [facility] Erythrocyte distribution width (RBC) [Ratio] 12.3 % 11.6-14.6 [facility] Immature granulocytes/100 WBC (Bld) 0.300 % 0.0-0.9 [facility] Comment on above: IG% - Immature Granu locytes (promyelocytes, myelocytes and metamyelocytes) > 1% indicates that a LEFT SHIFT is Present. MCH (RBC) [Entitic mass] 28.6 pg 27.0-32.0 [facility] Nucleated RBC/100 WBC (Bld) [Ratio] 0 % 0-5 [facility] Laboratory - Microbiology an d Antimicrobial susceptibilityOrdered By: Phylicia Mc on 02-14-2023 N. gonorrhoeae DNA [place]+probe Ql (Unsp spec) Negative Negative [facility] Comment on above: Performed at: = - [address] [id number] Director: Libertad Ma MD, Phone: [phone] [facility]CHC Auto (RBC) [Mass/Vol]Or dered By: Phylicia Mc on 02-14-2023 MCHC (RBC) [Mass/Vol] 33.0 g/dL 32-36 [facility] No Panel InformationOrdered By: Phylicia Mc on 02-14-2023 Estimated GFR (MDRD) Amer 135 mL/min >60 [facility] Comment on above: GFR Calc Estimated GFR (MDRD) Non-Af Amer 112 mL/min >60 [facility] Comment on above: Non- GFR Calc Free Triiodothyronine (T3) pg/dL 2.3 pg/mL 2.18-3.98 [facility] Hepatitis B Surface Antigen Non-Reactive Nonreactive [facility] Hepatitis C Antibody Non-Reactive Nonreactive [facility] Comment on above: Non Reactive: < 0.8 Equivocal: >/= 0.8 to < 1.0 Reactive: >/= 1.0The CDC recommends that a reactive/equivocal HCV antibody result be followed up by the HCV Nucleic Acid Amplificationtest (054189) Rubella IgG Antibody Reactive Nonreactive [facility] Comment on above: Antibody Results Int erpretation of Immune Status Non Reactive Presumed Non-Immune Equivocal Equivocal Reactive Presumed Immune Thyroid Stimulating Hormone (TSH) 0.58 uIU/mL 0.358-3.74 [facility] Platelets bldOrdered By: Anne Mc on 02-14-2023 Platelets (Bld) [#/Vol] 177 10*3/uL 150-450 [facility] Serum Treponema species anti body detectionOrdered By: Phylicia Mc on 02-14-2023 Treponema sp Ab Ql (S) Non-Reactive [facility] Serum or plasma albumin willow urement (mass/volume)Ordered By: Phylicia Mc on 02-14-2023 Albumin [Mass/Vol] 3.7 g/dL 3.2-5.0 [facility] Serum or plasma albumin/glob ulin mass ratioOrdered By: Phylicia Mc on 02-14-2023 Albumin/Globulin [Mass ratio] 1.1 {ratio} 0.9-2.4 [facility] Serum or plasma calcium willow urement (mass/volume)Ordered By: Phylicia Mc on 02-14-2023 Calcium [Mass/Vol] 8.7 mg/dL 8.5-10.1 [facility] Serum or plasma creatinine m easurement (mass/volume)Ordered By: Phylicia Mc on 02-14-2023 Creatinine [Mass/Vol] 0.67 mg/dL 0.55-1.02 [facility] Comment on above: The validity of the calculated GFR & GFRAA in patients over 70 years has not been determined. Clinical correlation is essential. Serum or plasma urea nitroge n measurement (mass/volume)Ordered By: Phylicia Mc on 02-14-2023 Urea nitrogen [Mass/Vol] 9 mg/dL 7-18 [facility] Thin prep Papanicolaou smear with manual screeningOrdered By: Phylicia Mc on 02-14-2023 Thin prep Papanicolaou smear with manual screening 11 U/L 15-37 [facility] Thin prep Papanicolaou smear with manual screening 6 5-15 [facility] Urine creatinine measurement (mass/volume)Ordered By: Phylicia Mc on 02-14-2023 Creatinine (U) [Mass/Vol] 46.90 mg/dL NO RANGE EST. [facility] Urine protein measurement (m ass/volume)Ordered By: Phylicia Mc on 02-14-2023 Protein (U) [Mass/Vol] mg/dL 0.0-11.8 [facility] [facility] Urine protein/creatinine mas s ratioOrdered By: Phylicia Mc on 02-14-2023 Protein/Creatinine (U) [Mass ratio] [facility] Comment on above: Test not performed Urinalysis macro (dipstick) panel (U)on 11-21-2022 Bilirubin, UA Negative [facility] Blood, UA Negative [facility] Glucose, UA Negative [facility] Interpretation and review of laboratory results Normal [facility] Ketones, UA Negative [facility] Leukocytes, UA Negative [facility] Nitrite, UA Negative [facility] pH, UA 5.0 [facility] Protein, UA Negative [facility] Spec Grav, UA >1.030 [facility] Urobilinogen, UA 0.2 [facility] MR Brain WO contraston 09-13 Normal MRI of the brain without contrast. Report Dictated on Electronically Signed By: Dameon De La Vega MD Electronically Signed Date/Time: 09/13/2022 7:33 AM EDT [facility] [employer] SYSTEM Patient Name: MACHELLE MAY : 1995 Exam Date/Time: 09/13/2022 06:42 Procedure: MR BRAIN WO CONTRAST Ordering Provider: HURTADO CHRISTINA Reason For Exam: Headache, new or worsening, neuro deficit (Age 18-49y) MRI BRAIN WITHOUT CONTRAST INDICATIONS: Headache, new or worsening, neuro deficit (Age 18-49y). Headache and visual changes. COMPARISON: None TECHNIQUE: Multiplanar, multisequence MRI of the brain was performed without contrast. FINDINGS: Acute Change: No evidence of acute infarction. No fluid collection or intracranial hemorrhage. Mass Lesion: None. Parenchyma: Normal signal intensity. Ventricles and sulci: Normal caliber of the ventricles and sulci. Skull base: Normal appearance of the pituitary gland. Normal position of the cerebellar tonsils. Vessels: The major intracranial flow voids are preserved. Extracranial structures: Normal orbits. No extracranial soft tissue abnormalities. Sinuses/mastoids: Clear Bones: No pathologic marrow infiltration. [facility] [employer] [facility] Dameon De La Vega M D - 09/13/2022 Patient Name: MACHELLE MAY : 1995 Exam Date/Time: 09/13/2022 06:42 Procedure: MR BRAIN WO CONTRAST Ordering Provider: HURTADO CHRISTINA Reason For Exam: Headache, new or worsening, neuro deficit (Age 18-49y) MRI BRAIN WITHOUT CONTRAST INDICATIONS: Headache, new or worsening, neuro deficit (Age 18-49y). Headache and visual changes. COMPARISON: None TECHNIQUE: Multiplanar, multisequence MRI of the brain was performed without contrast. FINDINGS: Acute Change: No evidence of acute infarction. No fluid collection or intracranial hemorrhage. Mass Lesion: None. Parenchyma: Normal signal intensity. Ventricles and sulci: Normal caliber of the ventricles and sulci. Skull base: Normal appearance of the pituitary gland. Normal position of the cerebellar tonsils. Vessels: The major intracranial flow voids are preserved. Extracranial structures: Normal orbits. No extracranial soft tissue abnormalities. Sinuses/mastoids: Clear Bones: No pathologic marrow infiltration. IMPRESSION: Normal MRI of the brain without contrast. Report Dictated on Electronically Signed By: Dameon De La Vega MD Electronically Signed Date/Time: 09/13/2022 7:33 AM EDT [facility] Radiology Study observation (narrative) [facility] MR Brain WO contrastOrdered By: Dameon De La Vega on 09-13-2022 [facility] Work Phone: Creatinine (U) [Mass/Vol]on 09-05-2022 CREATININE, URINE 178.2 mg/dL No Range [facility] No Panel Informationon 09-05 [facility] Protein, urine, randomon Interpretation and review of laboratory results Normal [facility] Protein (U) [Mass/Vol] mg/dL 0 - 12 mg/dL [facility] Renal function 2000 panelon 09-05-2022 Albumin [Mass/Vol] 4.3 g/dL 3.5 - 5.0 g/dL [facility] Anion gap [Moles/Vol] 6 mmol/L 3 - 13 mmol/L [facility] Calcium [Mass/Vol] 8.9 mg/dL 8.4 - 10. 4 mg/dL [facility] Chloride [Moles/Vol] 107 mmol/L 98 - 10 7 mmol/L [facility] CO2 [Moles/Vol] 24 mmol/L 22 - 30 mmol/L [facility] Creatinine [Mass/Vol] 0.81 mg/dL 0.52 - 1.04 mg/dL [facility] GFR/1.73 sq M.predicted MDRD (S/P/Bld) [Vol rate/Area] - PINF [facility] Comment on above: Calculation based on the Chronic Kidney Disease Epidemiology Collaboration (CKD-EPI) equation refit without adjustment for race Glucose [Mass/Vol] 93 mg/dL 70 - 100 mg/dL [facility] Interpretation and review of laboratory results Normal [facility] Phosphate [Mass/Vol] 3.5 mg/dL 2.5 - 4 .5 mg/dL [facility] Potassium [Moles/Vol] 4.1 mmol/L 3.5 - 5.1 mmol/L [facility] Sodium [Moles/Vol] 137 mmol/L 135 - 145 mmol/L [facility] Urea nitrogen [Mass/Vol] 15 mg/dL 7 - 17 mg/dL [facility] CBC W Auto Differential pane l (Bld)on 08-03-2022 Basophils (Bld) [#/Vol] 29 10*3/uL [facility] Basophils/100 WBC (Bld) 0.7 % [facility] Eosinophils (Bld) [#/Vol] 29 10*3/uL [facility] Eosinophils/100 WBC (Bld) 0.7 % [facility] Erythrocyte distribution width (RBC) [Ratio] 12.4 % 11.0 - 15.0 % [facility] Hematocrit (Bld) [Volume fraction] 43.1 % 35.0 - 45.0 % [facility] Hemoglobin (Bld) [Mass/Vol] 14.9 g/dL 11.7 - 15.5 g/dL [facility] Lymphocytes (Bld) [#/Vol] 1168 10*3/uL [facility] Lymphocytes/100 WBC (Bld) 27.8 % [facility] MCH (RBC) [Entitic mass] 30.1 pg 27.0 - 33.0 pg [facility] MCHC (RBC) [Mass/Vol] 34.6 g/dL 32.0 - 36.0 g/dL [facility] MCV (RBC) [Entitic vol] 87.1 fL 80.0 - 100.0 fL [facility] Monocytes (Bld) [#/Vol] 202 10*3/uL [facility] Monocytes/100 WBC (Bld) 4.8 % [facility] Neutrophils (Bld) [#/Vol] 2772 10*3/uL [facility] Neutrophils/100 WBC (Bld) 66 % [facility] Platelet mean volume (Bld) [Entitic vol] 11.2 fL 7.5 - 12.5 fL [facility] Platelets (Bld) [#/Vol] 161 10*3/uL [facility] RBC (Bld) [#/Vol] 4.95 10*6/uL [facility] WBC (Bld) [#/Vol] 4.2 10*3/uL [facility] Comprehensive metabolic 1998 panelon 08-03-2022 Albumin [Mass/Vol] 4.3 g/dL 3.6 - 5.1 g/dL [facility] Albumin/Globulin [Mass ratio] 1.9 {ratio} [facility] ALP [Catalytic activity/Vol] 60 U/L 31 - 125 U/L [facility] ALT [Catalytic activity/Vol] 14 U/L 6 - 29 U/L [facility] AST [Catalytic activity/Vol] 14 U/L 10 - 30 U/L [facility] Bilirubin [Mass/Vol] 0.7 mg/dL 0.2 - 1 .2 mg/dL [facility] Calcium [Mass/Vol] 9.0 mg/dL 8.6 - 10. 2 mg/dL [facility] Chloride [Moles/Vol] 106 mmol/L 98 - 11 0 mmol/L [facility] CO2 [Moles/Vol] 25 mmol/L 20 - 32 mmol/L [facility] Creatinine [Mass/Vol] 0.66 mg/dL 0.50 - 0.96 mg/dL [facility] GFR/1.73 sq M.predicted among non-blacks MDRD (S/P/Bld) [Vol rate/Area] 123 mL/min/{1.73_m2} > OR = 60 mL/min/1.73m 2 [facility] Comment on above: The eGFR is based on the CKD-EPI 2020 equation. To calculate the new eGFR from a previous Creatinine or Cystatin C result, go to https://www.kidney.org/professionals/ kdoqi/gfr%5Fcalculator Globulin (S) [Mass/Vol] 2.3 g/dL [facility] Glucose [Mass/Vol] 94 mg/dL 65 - 99 mg/dL [facility] Comment on above: Fasting reference interval Potassium [Moles/Vol] 4.2 mmol/L 3.5 - 5.3 mmol/L [facility] Protein [Mass/Vol] 6.6 g/dL 6.1 - 8.1 g/dL [facility] Sodium [Moles/Vol] 137 mmol/L 135 - 146 mmol/L [facility] Urea nitrogen [Mass/Vol] 12 mg/dL 7 - 25 mg/dL [facility] Urea nitrogen/Creatinine [Mass ratio] NOT APPLICABLE [facility] Ferritinon 08-03-2022 Ferritin [Mass/Vol] 39 ng/mL 16 - 154 ng/mL [facility] Folateon 08-03-2022 Folate [Mass/Vol] ng/mL ng/mL [facility] Comment on above: Reference Range Low: <3.4 Borderline: 3.4-5.4 Normal: >5.4 Iron and Iron binding capaci ty panelon 08-03-2022 Iron [Mass/Vol] 84 ug/dL [facility] Iron binding capacity [Mass/Vol] 369 [facility] Iron saturation [Mass fraction] 23 [facility] No Panel Informationon 08-03 [facility] Peripheral Blood Smearon Pathologist review Pathologist comment (Bld) [Interp] [facility] Comment on above: - Normocytic normoch romic red blood cells. - Normal white blood cell number and morphology. - Normal platelet number and morphology. --- Reviewed by: Bruce Horowitz MD Vitamin B12on 08-03-2022 Cobalamin (Vitamin B12) [Mass/Vol] 381 pg/mL 200 - 1100 pg/mL [facility] Comment on above: Please Note: Although the reference range for vitamin B12 is 200-1100 pg/mL, it has been reported that between 5 and 10% of patients with values between 200 and 400 pg/mL may experience neuropsychiatric and hematologic abnormalities due to occult B12 deficiency; less than 1% of patients with values above 400 pg/mL will have symptoms. Peripheral Blood SmearOrdere d By: Nithin Verdugo on 07-26-2022 Case Report Peripheral Smear Aidan e: [id number] Authorizing Provider: Zachariah Rome DO Collected: 07/24/2022 1117 Ordering Location: [facility] Laboratory Received: 07/24/2022 1117 Pathologist: Nithin Verdugo DO Specimen: Blood, Venous [facility] Work Phone: Pathologist Interpretation Location [facility], [address] [place] [address], [facility] [address], CLIA: [id number]; Joint Commission: [facility] [id number]; CAP: [id number] [facility] Work Phone: Pathology report final diagnosis Narrative [id number] cyFbSVCwhOYwW6IgqxegBDzt JY9vQU8giSczuUBemBCxUWIw AbOrn7fds300xTWnm2qdCMKD DModKOXLNLl2u9oaEUYJcF3w z8o1gJcnReRaY313dwweluDE OEu7bCnpMhLgE7zdJ6Jwuwat H986y7nlr8efhlJucWP2tErs KuntyXM3vOWgbWA4WBpaj8Ta sIocvAosTcN3YHnsBfF3UPdd x0B0SK4gyST7TBdnLMD6JAlp j4MaQJ6tMKq2JTuvp2YpmQNc cFT1DYemm0EaEXJomYgoNGCq nX8oNfLbSBcmibHdonJaaxKu HGhztdEkmaViTCzkhsApq1Xv pzBfrHD7TCfxnkViqIT8yJnz UQWgfH2vOTUyKQ80rWnfqTX0 CPjjtS3eCFStO68jYlKcqDov NjBcZmktMzYwfXtcbGlzdGxl dmVsXGxldmVsbmZjMjNcbGV2 LVhrYpExBxMleSN9WDxeFrBk yQA9JRuhyMMpjXB2UEsmtET6 GBs6YOl0MOotTP81iVlmxSE5 PCwndX5fRZVbF25zZvDftWii FJplZWXhOXA2LM77JLpmb5Un SVSkuYgmUWPwfG4yFvOuUYdk dmVsbmZjbjIzXGxldmVsamMw TFmkrcUqs9SvzqTrnIH5IJkj vvOwwZU0tQmuJPZvnK9aAEN2 KH35yBzlkRX6HRhmcD9iOECh I10fVaSubGkeUVIjGMWrFDR8 ZD56RBvkj0QhIDNciRhhNECo xP6oLpKaOKtgidUohhTqrgCh LShswnZjsuSvTQjunxAfx9Ed fpOljDM5WIyobiJtkBK7hVlv QPZyeE9oWJBuST37vDkxtAT3 CVubnK5fUVMnO45uZgIvuOnb IMLlLRIoMLM3XK39QBelr2Oy HNPlzEdzVRHotM9bCeQaAZfn dmVsbmZjbjIzXGxldmVsamMw RQhlenExr8YxjuApwFA6CCnd ihSnqRP5gDqlGCAcV831PGjw kdQvnlSqMrNxftz5ROAlQPde HfJ7OFclrP9nUpU6r3izmTI2 aXK8BLkucVL5VDfmXmDuP0dd FNJcbK1tT58fJ1soDQRyxAuo ITdmGEUnpAU5CQR8UDFzd5xr ZXZlbHRleHRcJzAxXHUtMzky LEO/K619MZusnmWafwShBiFr moo1BBLuAYgyNyl6LCpuzM8n LhT3w6ehhDW5zTO6TAenzHP4 PYtiLoZuJ7ybZJXwpF3sV48c B4izEEKjlVngVFclHECwvPT9 LPE6EFHes8ihULVzzDPicPKy JzAxXHUtMzkxMyA/W608PKxp mmVyboKnHkUnpmv3MLPtONeu SZS5FClvnM6mUnH5s2ikmHS7 lAJ1LTarfCU6NHxbWwZxV2ix LAXbjY7nD81kP8qaZSXylRuh MJvnMIIwbFY6BZJ6KTJbq0va IIKblEPceWQhKsIjndu8x8lm QNQwdT35oWCxsrM7kUfpDhez xHT0QQLmRfmbMuWleSdfzPht dGxldmVsXGxldmVsbmZjMjNc mZG5BNduBtDgBvLngOT1SOpe TiPpsPU4KObsdFGqaDX7VMkx bCL8UMq8ERh5ONvaDYv2UEZ9 BnknPmi1p7cjBRPknT18tEQw ujF3iTgmZ6qtpTGdLwLyOzhq SjAxfY00w0qoCQaqs5IzqwRa pmjrYTMiHntxy1zwOFalu2Mg npIdonknJVvnkJV2vQUhLGF3 ASZ0RSwqiEidaO91BMOxpIRa N995xsUaYHmyOY63JIXmbJMf pnKxHxFtDBArnREkhAS1BBQz TF0wfnfhYXxtKPpuJQZldnL2 NKKkeBEeA0EiPYVsTA1tqeqh RXR3XOdcKLWgLXG0PmMjWRVt b5Zklqn1NkVgbFSvCLhkuCSp blxmczIwIFBlcmlwaGVyYWwg Kbwha9Nrf89vXDD6JWFefovq uBR7JDrfvB9fXbLikBjqHfVy XGxzMVxpbHZsMFxwbGFpblxm ncZpXGelIaHkx4zgBvClR9Mu ujQva6J0kUUuMGqohSvdoqTn OTDqROGbY030EGeuS4a0HKBn wLPtyuSjUkutTM7xTSW9nHKt UP1ghIOhs8PevVpmBCHbv2cp rQ67dKWxO7RcqdAyOAZro32a IFxwYXIgUnVsZSBvdXQgZXZv zLPyajzsvnQoe9h3yQ0aJKig GlBrvNvtoeyyO0ldj91uDuGl mfGiKR5tOQVzfojaw3UmpJLb KQ4lM11sTQUuOCKtuAwsqfUl FBHdGXEuSeBrI1KrCtDpqNTu JWLhZAI1cdUbqxVdOZtsO8Kc adJhf1YiuTGywSRqKMBrRI4d dCBpZGVudGlmaWVkLlxwYXJ9 [employer] Work Phone: [employer] Work Phone: CBC W Auto Differential pane l (Bld)Ordered By: Bridgette Franklin on 07-24-2022 Basophils (Bld) [#/Vol] 0.0 10*3/uL 0.0 - 0.2 10*3/uL [employer] [facility] Basophils/100 WBC (Bld) 0.5 % 0.0 - 2.0 % [facility] Eosinophils (Bld) [#/Vol] 0.0 10*3/uL 0.0 - 0.5 10*3/uL [facility] Eosinophils/100 WBC (Bld) 0.7 % Low 1.0 - 6.0 % [facility] Erythrocyte distribution width (RBC) [Ratio] 11.9 % 11.5 - 14.5 % [employer] [facility] Hematocrit (Bld) [Volume fraction] 40.8 % 35.0 - 47.0 % [employer] [facility] Hemoglobin (Bld) [Mass/Vol] 13.8 g/dL 11.7 - 16.0 g/dL [employer] [facility] Immature granulocytes (Bld) [#/Vol] 0.0 10*3/uL NINF - 0.0 10*3/uL [employer] [facility] Immature granulocytes/100 WBC (Bld) 0.3 % High NINF - 0.0 % [facility] Interpretation and review of laboratory results Abnormal [facility] Lymphocytes (Bld) [#/Vol] 1.4 10*3/uL 1.0 - 4.3 10*3/uL [facility] Lymphocytes/100 WBC (Bld) 22.7 % 20.0 - 40.0 % [facility] MCH (RBC) [Entitic mass] 29.2 pg 26.0 - 34.0 pg [facility] MCHC (RBC) [Mass/Vol] 33.8 % 32.0 - 36.0 % [facility] MCV (RBC) [Entitic vol] 86.3 fL 80.0 - 98.0 fL [facility] Monocytes (Bld) [#/Vol] 0.3 10*3/uL 0.0 - 0.8 10*3/uL [facility] Monocytes/100 WBC (Bld) 4.9 % 2.0 - 10.0 % [facility] Neutrophils (Bld) [#/Vol] 4.2 10*3/uL 1.8 - 7.0 10*3/uL [facility] Neutrophils/100 WBC (Bld) 70.9 % 40.0 - 80.0 % [facility] Platelet mean volume (Bld) [Entitic vol] 10.7 fL 7.4 - 12.4 fL [facility] Comment on above: MPV is a calculated measurement using platelet volume ratio Platelets (Bld) [#/Vol] 152 10*3/uL 140 - 440 10*3/uL [facility] RBC (Bld) [#/Vol] 4.73 10*6/uL 3.8 - 5.20 10*6/uL [facility] WBC (Bld) [#/Vol] 6.0 10*3/uL 3.6 - 10.7 10*3/uL [facility] No Panel Informationon 07-04 Sinus Rhythm WITHIN NORMAL LIMITS [facility] Bacteria identified Cx Nom ( U)Ordered By: Nuzhat Gonzalez on 05-27-2022 Interpretation and review of laboratory results Normal [facility] Urine cultureOrdered By: Chelsey Gonzalez on 05-27-2022 Bacteria identified Cx Nom (U) Normal urogenital edwina present [facility] CBC W Auto Differential pane l (Bld)Ordered By: Bridgette Franklin on 05-22-2022 Basophils (Bld) [#/Vol] 0.0 10*3/uL 0.0 - 0.2 10*3/uL [facility] Basophils/100 WBC (Bld) 0.8 % 0.0 - 2.0 % [facility] Eosinophils (Bld) [#/Vol] 0.1 10*3/uL 0.0 - 0.5 10*3/uL [facility] Eosinophils/100 WBC (Bld) 1.3 % 1.0 - 6.0 % [facility] Erythrocyte distribution width (RBC) [Ratio] 12.3 % 11.5 - 14.5 % [facility] Hematocrit (Bld) [Volume fraction] 41.1 % 35.0 - 47.0 % [facility] Hemoglobin (Bld) [Mass/Vol] 13.8 g/dL 11.7 - 16.0 g/dL [facility] Immature granulocytes (Bld) [#/Vol] 0.0 10*3/uL NINF - 0.0 10*3/uL [facility] Immature granulocytes/100 WBC (Bld) 0.3 % High NINF - 0.0 % [facility] Interpretation and review of laboratory results Abnormal [facility] Lymphocytes (Bld) [#/Vol] 1.3 10*3/uL 1.0 - 4.3 10*3/uL [facility] Lymphocytes/100 WBC (Bld) 33.2 % 20.0 - 40.0 % [facility] MCH (RBC) [Entitic mass] 28.9 pg 26.0 - 34.0 pg [facility] MCHC (RBC) [Mass/Vol] 33.6 % 32.0 - 36.0 % [facility] MCV (RBC) [Entitic vol] 86.0 fL 80.0 - 98.0 fL [facility] Monocytes (Bld) [#/Vol] 0.2 10*3/uL 0.0 - 0.8 10*3/uL [facility] Monocytes/100 WBC (Bld) 5.5 % 2.0 - 10.0 % [facility] Neutrophils (Bld) [#/Vol] 2.3 10*3/uL 1.8 - 7.0 10*3/uL [facility] Neutrophils/100 WBC (Bld) 58.9 % 40.0 - 80.0 % [facility] Platelet mean volume (Bld) [Entitic vol] 10.4 fL 7.4 - 12.4 fL [facility] Comment on above: MPV is a calculated measurement using platelet volume ratio Platelets (Bld) [#/Vol] 159 10*3/uL 140 - 440 10*3/uL [facility] RBC (Bld) [#/Vol] 4.78 10*6/uL 3.8 - 5.20 10*6/uL [facility] WBC (Bld) [#/Vol] 3.9 10*3/uL 3.6 - 10.7 10*3/uL [facility] Creatinine (U) [Mass/Vol]on 05-22-2022 CREATININE, URINE 136.8 mg/dL No Range [facility] No Panel Informationon 05-22 [facility] Protein, urine, randomon Interpretation and review of laboratory results Normal [facility] Protein (U) [Mass/Vol] 11 mg/dL 0 - 12 mg/dL [facility] Renal function 2000 panelon 05-22-2022 Albumin [Mass/Vol] 4.1 g/dL 3.5 - 5.0 g/dL [facility] Anion gap [Moles/Vol] 2 mmol/L Low 3 - 13 mmol/L [facility] Calcium [Mass/Vol] 8.4 mg/dL 8.4 - 10. 4 mg/dL [facility] Chloride [Moles/Vol] 106 mmol/L 98 - 10 7 mmol/L [facility] CO2 [Moles/Vol] 28 mmol/L 22 - 30 mmol/L [facility] Creatinine [Mass/Vol] 0.66 mg/dL 0.52 - 1.04 mg/dL [facility] GFR/1.73 sq M.predicted MDRD (S/P/Bld) [Vol rate/Area] - PINF [facility] Comment on above: Calculation based on the Chronic Kidney Disease Epidemiology Collaboration (CKD-EPI) equation refit without adjustment for race Glucose [Mass/Vol] 90 mg/dL 70 - 100 mg/dL [facility] Interpretation and review of laboratory results Abnormal [facility] Phosphate [Mass/Vol] 3.5 mg/dL 2.5 - 4 .5 mg/dL [facility] Potassium [Moles/Vol] 4.0 mmol/L 3.5 - 5.1 mmol/L [facility] Sodium [Moles/Vol] 136 mmol/L 135 - 145 mmol/L [facility] Urea nitrogen [Mass/Vol] 14 mg/dL 7 - 17 mg/dL [facility] Urinalysis complete panel (U )Ordered By: Bridgette Franklin on 05-22-2022 Bacteria LM.HPF (Urine sed) [#/Area] Few Abnormal Negative /HPF [facility] Bilirubin Ql (U) Negative Negative mg/dL [facility] Clarity (U) Clear Clear [facility] Color (U) Light Yellow Lt. Yellow [facility] Epithelial cells.squamous LM.HPF (Urine sed) [#/Area] 0-2 [facility] Glucose Ql (U) Normal Normal (<70) mg/dL [facility] Hemoglobin Ql (U) Negative Negative mg/dL [facility] Interpretation and review of laboratory results Abnormal [facility] Ketones (U) [Mass/Vol] Negative Negat tyson mg/dL [facility] Leukocyte esterase Test strip Ql (U) Negative Negative Prabhu/uL [facility] Mucus LM.HPF (Urine sed) [#/Area] Moderate Abnormal Negative /LPF [facility] Nitrite Ql (U) Negative Negative [facility] pH (U) 6.0 [pH] 5.0 - 8.0 pH [facility] Protein (U) [Mass/Vol] 20 mg/dL Abnormal Negative [facility] RBC LM.HPF (Urine sed) [#/Area] Negative [facility] Specific gravity (U) [Rel density] 1.024 1.005 - 1.030 [facility] Urobilinogen (U) [Mass/Vol] Normal Normal (0-1) mg/dL [facility] WBC LM.HPF (Urine sed) [#/Area] 0-2 [facility] Amylaseon 04-28-2022 Amylase [Catalytic activity/Vol] 66 U/L 30 - 130 U/L [facility] CBC W Auto Differential pane l (Bld)Ordered By: Bety Steven on 04-28-2022 Basophils (Bld) [#/Vol] 0.0 10*3/uL 0.0 - 0.2 10*3/uL [facility] Basophils/100 WBC (Bld) 0.4 % 0.0 - 2.0 % [facility] Eosinophils (Bld) [#/Vol] 0.1 10*3/uL 0.0 - 0.5 10*3/uL [facility] Eosinophils/100 WBC (Bld) 1.1 % 1.0 - 6.0 % [facility] Erythrocyte distribution width (RBC) [Ratio] 12.3 % 11.5 - 14.5 % [facility] Hematocrit (Bld) [Volume fraction] 41.2 % 35.0 - 47.0 % [facility] Hemoglobin (Bld) [Mass/Vol] 13.9 g/dL 11.7 - 16.0 g/dL [facility] Immature granulocytes (Bld) [#/Vol] 0.0 10*3/uL NINF - 0.0 10*3/uL [facility] Immature granulocytes/100 WBC (Bld) 0.4 % High NINF - 0.0 % [facility] Interpretation and review of laboratory results Abnormal [facility] Lymphocytes (Bld) [#/Vol] 1.4 10*3/uL 1.0 - 4.3 10*3/uL [facility] Lymphocytes/100 WBC (Bld) 24.9 % 20.0 - 40.0 % [facility] MCH (RBC) [Entitic mass] 29.0 pg 26.0 - 34.0 pg [facility] MCHC (RBC) [Mass/Vol] 33.7 % 32.0 - 36.0 % [facility] MCV (RBC) [Entitic vol] 85.8 fL 80.0 - 98.0 fL [facility] Monocytes (Bld) [#/Vol] 0.3 10*3/uL 0.0 - 0.8 10*3/uL [facility] Monocytes/100 WBC (Bld) 5.1 % 2.0 - 10.0 % [facility] Neutrophils (Bld) [#/Vol] 3.9 10*3/uL 1.8 - 7.0 10*3/uL [facility] Neutrophils/100 WBC (Bld) 68.1 % 40.0 - 80.0 % [facility] Platelet mean volume (Bld) [Entitic vol] 10.6 fL 7.4 - 12.4 fL [facility] Comment on above: MPV is a calculated measurement using platelet volume ratio Platelets (Bld) [#/Vol] 174 10*3/uL 140 - 440 10*3/uL [facility] RBC (Bld) [#/Vol] 4.80 10*6/uL 3.8 - 5.20 10*6/uL [facility] WBC (Bld) [#/Vol] 5.7 10*3/uL 3.6 - 10.7 10*3/uL [facility] Lipaseon 04-28-2022 Lipase [Catalytic activity/Vol] 53 U/L 23 - 300 U/L [facility] No Panel Informationon 04-28 Interpretation and review of laboratory results Normal [facility] Antimullerian hormone (AMH)o n 04-27-2022 Mullerian inhibiting substance [Mass/Vol] 8.162 ng/mL 0.401 - 16.015 ng/mL [facility] Comment on above: INTERPRETIVE INFORMA TION: Anti-Mullerian Hormone FEMALE: 6 months - 14 years: 0.256 - 6.345 ng/mL 15-17 years: 0.861 - 10.451 ng/mL 18-29 years: 0.401 - 16.015 ng/mL 30-39 years: 0.176 - 11.705 ng/mL 40-45 years: 6.282 ng/mL or less 46-50 years: 0.064 ng/mL or less Post-menopausal: 0.003 ng/mL or less MALE: 6-11 months: 56.677 - 495.299 ng/mL 1-6 years: 33.442 - 342.450 ng/mL 7-9 years: 20.245 - 189.781 ng/mL 10-12 years: 2.903 - 178.243 ng/mL 13 years and older: 2.079 - 30.656 ng/mL This test was developed and its performance characteristics determined by [facility]. It has not been cleared or approved by the [place] Food and Drug Administration. This test was performed in a CLIA certified laboratory and is intended for clinical purposes. Performed By: [facility] [address] [place] [id number] [employer]: Liang Newell MD, PhD [facility] Amylaseon 04-24-2022 Amylase [Catalytic activity/Vol] 66 U/L 30 - 130 U/L [facility] Gamma GTon 04-24-2022 Gamma glutamyl transferase [Catalytic activity/Vol] 12 U/L 12 - 58 U/L [facility] Gamma glutamyl transferase [ Catalytic activity/Vol]on 04-24-2022 Interpretation and review of laboratory results Normal [facility] Lipaseon 04-24-2022 Lipase [Catalytic activity/Vol] 58 U/L 23 - 300 U/L [facility] No Panel Informationon 04-24 Interpretation and review of laboratory results Normal [facility] TSHon 04-24-2022 TSH Qn 0.614 m[IU]/L [facility] TSH Qnon 04-24-2022 Interpretation and review of laboratory results Normal [facility] US Abdomenon 03-31-2022 Normal complete abdominal ultrasound. Report Dictated on Electronically Signed By: Cayden Fregoso Electronically Signed Date/Time: 03/31/2022 1:11 PM [facility] [employer] SYSTEM Patient Name: MACHELLE MAY : 1995 Exam Date/Time: 03/31/2022 07:44 Procedure: US ABDOMEN COMPLETE Ordering Provider: ROME BRINKMAN Reason For Exam: R10.10 ULTRASOUND COMPLETE ABDOMEN CLINICAL INDICATION: Abdominal Pain TECHNIQUE: Ultrasound of the complete abdomen COMPARISON: Renal ultrasound 01/06/2022 FINDINGS: Liver: Normal echogenicity, size and contours. No focal lesion identified. Gallbladder: Normal. No pericholecystic inflammatory change. Negative sonographic Giron sign reported by the electronic technologist. Bile ducts: No intrahepatic and extrahepatic biliary dilatation Common bile duct: 3 mm Pancreas: Visualized portions of the head, body, and tail are normal. Right kidney: Normal parenchymal echogenicity without a solid mass or hydronephrosis. No cortical cysts. Dimensions: 11.3 x 5.5 x 4.1 cm Left kidney: Normal parenchymal echogenicity without a solid mass or hydronephrosis. No cortical cysts. Dimensions: 13.1 x 5.8 x 4.8 cm Spleen: Normal echogenicity and size. No mass identified. Dimensions: 12.1 x 5.7 x 5.6 cm Aorta and Inferior vena cava: Visualized portions are normal Ascites: None [facility] Cayden Fregoso MD - 03/31/2022 Patient Name: MACHELLE MAY : 1995 Exam Date/Time: 03/31/2022 07:44 Procedure: US ABDOMEN COMPLETE Ordering Provider: ROME BRINKMAN Reason For Exam: R10.10 ULTRASOUND COMPLETE ABDOMEN CLINICAL INDICATION: Abdominal Pain TECHNIQUE: Ultrasound of the complete abdomen COMPARISON: Renal ultrasound 01/06/2022 FINDINGS: Liver: Normal echogenicity, size and contours. No focal lesion identified. Gallbladder: Normal. No pericholecystic inflammatory change. Negative sonographic Giron sign reported by the electronic technologist. Bile ducts: No intrahepatic and extrahepatic biliary dilatation Common bile duct: 3 mm Pancreas: Visualized portions of the head, body, and tail are normal. Right kidney: Normal parenchymal echogenicity without a solid mass or hydronephrosis. No cortical cysts. Dimensions: 11.3 x 5.5 x 4.1 cm Left kidney: Normal parenchymal echogenicity without a solid mass or hydronephrosis. No cortical cysts. Dimensions: 13.1 x 5.8 x 4.8 cm Spleen: Normal echogenicity and size. No mass identified. Dimensions: 12.1 x 5.7 x 5.6 cm Aorta and Inferior vena cava: Visualized portions are normal Ascites: None IMPRESSION: Normal complete abdominal ultrasound. Report Dictated on Electronically Signed By: Cayden Fregoso Electronically Signed Date/Time: 03/31/2022 1:11 PM EST [facility] Radiology Study observation (narrative) [facility] US AbdomenOrdered By: Cayden Fregoso on 03-31-2022 [facility] [employer] Work Phone: Creatinine (U) [Mass/Vol]on 03-10-2022 CREATININE, URINE 208.9 mg/dL No Range [facility] CREATININE, URINE 107.1 mg/dL No Range [facility] CREATININE, URINE 66.2 mg/dL No Range [facility] [employer] No Panel Informationon 03-10 [facility] [employer] Protein, urine, randomon Interpretation and review of laboratory results Normal [facility] Protein (U) [Mass/Vol] mg/dL 0 - 12 mg/dL [facility] Interpretation and review of laboratory results Normal [facility] Protein (U) [Mass/Vol] mg/dL 0 - 12 mg/dL [facility] Interpretation and review of laboratory results Normal [facility] Protein (U) [Mass/Vol] 8 mg/dL 0 - 12 mg/dL [facility] Creatinine (U) [Mass/Vol]on 02-17-2022 CREATININE, URINE 128.0 mg/dL No Range [facility] No Panel Informationon 02-17 [facility] Protein, urine, randomon Interpretation and review of laboratory results Abnormal [facility] Protein (U) [Mass/Vol] 83 mg/dL High 0 - 12 mg/dL [facility] Renal function 2000 panelon 02-17-2022 Albumin [Mass/Vol] 4.5 g/dL 3.5 - 5.0 g/dL [facility] Anion gap [Moles/Vol] 2 mmol/L Low 3 - 13 mmol/L [facility] Calcium [Mass/Vol] 9.1 mg/dL 8.4 - 10. 4 mg/dL [facility] Chloride [Moles/Vol] 106 mmol/L 98 - 10 7 mmol/L [facility] CO2 [Moles/Vol] 28 mmol/L 22 - 30 mmol/L [facility] Creatinine [Mass/Vol] 0.79 mg/dL 0.52 - 1.04 mg/dL [facility] GFR/1.73 sq M.predicted MDRD (S/P/Bld) [Vol rate/Area] - PINF [facility] Comment on above: Calculation based on the Chronic Kidney Disease Epidemiology Collaboration (CKD-EPI) equation refit without adjustment for race Glucose [Mass/Vol] 90 mg/dL 70 - 100 mg/dL [facility] Interpretation and review of laboratory results Abnormal [facility] Phosphate [Mass/Vol] 4.0 mg/dL 2.5 - 4 .5 mg/dL [facility] Potassium [Moles/Vol] 4.8 mmol/L 3.5 - 5.1 mmol/L [facility] Sodium [Moles/Vol] 136 mmol/L 135 - 145 mmol/L [facility] Urea nitrogen [Mass/Vol] 17 mg/dL 7 - 17 mg/dL [facility] Urinalysis complete panel (U )Ordered By: Cathy Talavera on 02-17-2022 Bilirubin Ql (U) Negative Negative mg/dL [facility] Clarity (U) Clear Clear [facility] Color (U) Yellow Lt. Yellow [facility] Epithelial cells.squamous LM.HPF (Urine sed) [#/Area] 0-2 [facility] Glucose Ql (U) Normal Normal (<70) mg/dL [facility] Hemoglobin Ql (U) Negative Negative mg/dL [facility] Interpretation and review of laboratory results Abnormal [facility] Ketones (U) [Mass/Vol] Negative Negat tyson mg/dL [facility] Leukocyte esterase Test strip Ql (U) Negative Negative Prabhu/uL [facility] Nitrite Ql (U) Negative Negative [facility] pH (U) 6.0 [pH] 5.0 - 8.0 pH [facility] Protein (U) [Mass/Vol] 100 mg/dL Abnormal Negative [facility] RBC LM.HPF (Urine sed) [#/Area] 0-2 [facility] Specific gravity (U) [Rel density] 1.025 1.005 - 1.030 [facility] Urobilinogen (U) [Mass/Vol] Normal Normal (0-1) mg/dL [facility] Volume, Urine 12 mL [facility] WBC LM.HPF (Urine sed) [#/Area] Negative [facility] ANAon 01-26-2022 MICHELLE Pattern [facility] MICHELLE Titer [facility] TESTED BY INDIRECT IMMUNOFLUORESCENCE ASSAY (IFA) [facility] Anti-DNA antibody, double-st randedOrdered By: Black Sandoval on 01-26-2022 Anti-DNA Antibody [facility] Interpretation and review of laboratory results Normal [facility] HCV Ab IA Qlon 01-26-2022 Interpretation and review of laboratory results Normal [facility] Hepatitis C antibodyon 01-26 HCV Ab IA Ql Not detected Not Detected [facility] Comment on above: Patients with DETECT ED Hepatitis C Ab results should have a new specimen submitted for supplemental testing with a Hepatitis C Quantitative RNA assay (viral load), if clinically indicated. C3 complementon 01-25-2022 Complement C3 [Mass/Vol] 91 mg/dL 88 - 165 mg/dL [facility] C4 complementon 01-25-2022 Complement C4 [Mass/Vol] 25 mg/dL 14 - 44 mg/dL [facility] Iron and Iron binding capaci ty panelon 01-25-2022 Interpretation and review of laboratory results Abnormal [facility] Iron [Mass/Vol] 26 ug/dL Low 37 - 170 ug/dL [facility] Iron binding capacity [Mass/Vol] 345 ug/dL 261 - 497 ug/dL [facility] Iron saturation [Mass fraction] 8 % Low 15 - 50 % [facility] No Panel Informationon 01-25 Interpretation and review of laboratory results Normal [facility] US Retroperitoneumon 022 No acute sonographic abnormality identified. Report Dictated on Electronically Signed By: Roscoe Balderrama Electronically Signed Date/Time: 01/06/2022 4:07 PM EST [facility] RADIOLOGY SYSTEM Patient Name: MACHELLE MAY Exam Date/Time: 01/06/2022 12:52 Procedure: US RETROPERITONEAL Ordering Provider: ROME BRINKMAN Reason For Exam: EXAMINATION: Ultrasound of the kidneys and urinary bladder. EXAM DATE & TIME: 01/06/2022 12:52 PM EST INDICATION: R80.1 ADDITIONAL INFORMATION: 26-year-old female with proteinuria presents for evaluation COMPARISON: None LIMITATIONS: None TECHNIQUE: Ultrasound real-time scan with image documentation of the kidneys and urinary bladder was performed. Additionally, color Doppler evaluation was performed. FINDINGS: RIGHT KIDNEY Size: 12 x 5.2 x 4.6 cm Renal cortex: Normal. Hydronephrosis: None. Calculi, cysts or masses: None. LEFT KIDNEY Size: 12.6 x 4.5 x 5.2 cm Renal cortex: Normal. Hydronephrosis: None. Calculi, cysts or masses: None. URINARY BLADDER Unremarkable. Bilateral ureteral jets are present. OTHER FINDINGS None. [facility] Roscoe Balderrama MD - 01/06/2022 Patient Name: MACHELLE DULCE MARIA Exam Date/Time: 01/06/2022 12:52 Procedure: US RETROPERITONEAL Ordering Provider: ROME BRINKMAN Reason For Exam: EXAMINATION: Ultrasound of the kidneys and urinary bladder. EXAM DATE & TIME: 01/06/2022 12:52 PM EST INDICATION: R80.1 ADDITIONAL INFORMATION: 26-year-old female with proteinuria presents for evaluation COMPARISON: None LIMITATIONS: None TECHNIQUE: Ultrasound real-time scan with image documentation of the kidneys and urinary bladder was performed. Additionally, color Doppler evaluation was performed. FINDINGS: RIGHT KIDNEY Size: 12 x 5.2 x 4.6 cm Renal cortex: Normal. Hydronephrosis: None. Calculi, cysts or masses: None. LEFT KIDNEY Size: 12.6 x 4.5 x 5.2 cm Renal cortex: Normal. Hydronephrosis: None. Calculi, cysts or masses: None. URINARY BLADDER Unremarkable. Bilateral ureteral jets are present. OTHER FINDINGS None. IMPRESSION: No acute sonographic abnormality identified. Report Dictated on Electronically Signed By: Roscoe Balderrama Electronically Signed Date/Time: 01/06/2022 4:07 PM EST [facility] Radiology Study observation (narrative) [facility] US RetroperitoneumOrdered By : Roscoe Balderrama on 01-06-2022 [facility] [employer] Work Phone: XR Lumbar spine 4 Viewson Mild lower lumbar spine facet degenerative changes. Report Dictated on Electronically Signed By: Francis Oliver Electronically Signed Date/Time: 01/03/2022 7:57 AM EST [employer] RADIOLOGY SYSTEM Patient Name: DULCE MARIA CARTY Exam Date/Time: 01/02/2022 16:38 Procedure: XR LUMBAR SPINE COMP INCL BEND VW Ordering Provider: WEEKS HANNAH Reason For Exam: Lumbosacral spine three views HISTORY: Pain No fracture or dislocation. No spondylolysis. Mild lower lumbar spine facet degeneration. [facility] RADIOLOGY SYSTEM Francis Oliver MD - 01/03/2022 Patient Name: DULCE MARIA CARTY Exam Date/Time: 01/02/2022 16:38 Procedure: XR LUMBAR SPINE COMP INCL BEND VW Ordering Provider: WEEKS HANNAH Reason For Exam: Lumbosacral spine three views HISTORY: Pain No fracture or dislocation. No spondylolysis. Mild lower lumbar spine facet degeneration. IMPRESSION: Mild lower lumbar spine facet degenerative changes. Report Dictated on Electronically Signed By: Francis Oliver Electronically Signed Date/Time: 01/03/2022 7:57 AM EST [employer] XR Lumbar spine 4 ViewsOrder ed By: Francis Oliver on 01-03-2022 [facility] [employer] Work Phone: XR Lumbar spine 4 Viewson Radiology Study observation (narrative) [facility] MG Cancer Risk Surveyon 04-0 MG Cancer Risk Survey Patient Name: NAIF HOUSTON May Mammography ACCESSION EXAM DATE/TIME PROCEDURE ORDERING PROVIDER [id number] 05/11/2021 15:29 EDT MG Cancer Risk Survey MD SERGIO, BRITTANY SEHLDON Reason For Exam ( Cancer Risk Survey) lump in breast Report Cancer Risk Assessment: This risk assessment is based on patient provided information collected in a risk survey taken by the patient. PATIENT CANCER HISTORY: No Personal History of Cancer FAMILY CANCER HISTORY: Mother Pancreatic Cancer age 60 Lifetime breast cancer risk: Average Risk - If greater than or equal to 20%, consider annual mammogram and annual screening Breast MRI or follow up in high risk clinic. A score of Average Risk indicates a score of less than 20%. Is the patient at elevated risk based on the HBOC criteria? Yes (Hereditary Breast and Ovarian Cancer) - If yes, consider genetic counseling and testing with high risk follow up. Is the patient at elevated risk based on the Avery Syndrome criteria? No - If yes, consider genetic counseling and testing with high risk follow up. Report Dictated on Workstation: [id number] Final Dictating Physician: Caren_system, Cert[employer] Data SystemsCRIBE_[email or web address] Signed Date and Time: 06/21/2021 1:26 pm Signed by: Caren_system, Cert[employer] Data SystemsCRIBE_V2 Normal [facility] [employer] [facility] US BREAST LIMITED LEFTon Patient Name: MACHELLE May Ultrasound ACCESSION EXAM DATE/TIME PROCEDURE ORDERING PROVIDER [id number] 05/11/2021 15:29 EDT US Breast Limited Left MD SERGIO, BRITTANY SHELDON CPT code 39669 Reason For Exam (US Breast Limited Left) left breast lump Report INDICATED PROBLEM: Indicated problem(s): left breast palpable abnormality pea for 6 months. PROCEDURE: US BREAST LIMITED LEFT: MAY 11, 2021 - . FINDINGS: The patient presents for a left breast ultrasound for further evaluation of palpable abnormality within the left breast. The patient is currently nursing. Targeted ultrasound was performed at 2:00 and 2:30, 7 cm from the nipple, in the area of palpable abnormality. A few small benign cysts are seen in this area. The tissue is mildly heterogenous appearance, consistent with . No solid or cystic mass is seen to explain the palpable abnormality. IMPRESSION: No sonographic abnormality seen to correlate with the palpable abnormality. Clinical follow-up is recommended. ASSESSMENT: Category 2 Benign RECOMMENDATION: Physical exam/clinical correlation. . Report Dictated on --- Final --- Signed Date and Time: 05/11/2021 3:28 pm Signed by: MD DAVIS ANN C. [place] [facility] Eliz Davis MD - 05/11/2021 Patient Name: MACHELLE DULCE MARIA Cesar Ultrasound ACCESSION EXAM DATE/TIME PROCEDURE ORDERING PROVIDER [id number] 05/11/2021 15:29 EDT US Breast Limited Left MD SANCHEZ DIANA CHRISTINE CPT code 17181 Reason For Exam (US Breast Limited Left) left breast lump Report INDICATED PROBLEM: Indicated problem(s): left breast palpable abnormality pea for 6 months. PROCEDURE: US BREAST LIMITED LEFT: MAY 11, 2021 - . FINDINGS: The patient presents for a left breast ultrasound for further evaluation of palpable abnormality within the left breast. The patient is currently nursing. Targeted ultrasound was performed at 2:00 and 2:30, 7 cm from the nipple, in the area of palpable abnormality. A few small benign cysts are seen in this area. The tissue is mildly heterogenous appearance, consistent with . No solid or cystic mass is seen to explain the palpable abnormality. IMPRESSION: No sonographic abnormality seen to correlate with the palpable abnormality. Clinical follow-up is recommended. ASSESSMENT: Category 2 Benign RECOMMENDATION: Physical exam/clinical correlation. . Report Dictated on --- Final --- Signed Date and Time: 05/11/2021 3:28 pm Signed by: MD DAVIS ANN C. [facility] Work Phone: Radiology Study observation (narrative) [facility] Work Phone: US BREAST LIMITED LEFTOrdere d By: Eliz Davis on 05-11-2021 [facility] US Breast Limited Lefton US Breast Limited Left Patient Name: MARIJA DAY May Ultrasound ACCESSION EXAM DATE/TIME PROCEDURE ORDERING PROVIDER [id number] 05/11/2021 15:29 EDT US Breast Limited Left MD SANCHEZ DIANA CHRISTINE CPT code 11806 Reason For Exam (US Breast Limited Left) left breast lump Report INDICATED PROBLEM: Indicated problem(s): left breast palpable abnormality pea for 6 months. PROCEDURE: US BREAST LIMITED LEFT: MAY 11, 2021 - . FINDINGS: The patient presents for a left breast ultrasound for further evaluation of palpable abnormality within the left breast. The patient is currently nursing. Targeted ultrasound was performed at 2:00 and 2:30, 7 cm from the nipple, in the area of palpable abnormality. A few small benign cysts are seen in this area. The tissue is mildly heterogenous appearance, consistent with . No solid or cystic mass is seen to explain the palpable abnormality. IMPRESSION: No sonographic abnormality seen to correlate with the palpable abnormality. Clinical follow-up is recommended. ASSESSMENT: Category 2 Benign RECOMMENDATION: Physical exam/clinical correlation. . Report Dictated on Final Signed Date and Time: 05/11/2021 3:28 pm Signed by: MD DAVIS ANN C. Normal [facility] [employer] [facility] Comp Metabolic Panelon 09-15 Calcium [Mass/Vol] 8.5 mg/dL Normal 8.4-10.4 [facility] Comment on above: Performed By: #### C MP3 #### [employer] [address] [place], [place] [id number] ALP [Catalytic activity/Vol] 148 U/L High 38-126 [facility] Comment on above: Performed By: #### C MP3 #### [facility] [address], [place] ALT [Catalytic activity/Vol] 15 U/L Normal 0-34 [facility] Comment on above: Result Comment: The ALT test is performed by an updated assay method. Please note that the reference intervals have been changed and are now sex specific. Performed By: #### C MP3 #### [facility] [address], [place] Anion gap [Moles/Vol] 7 mmol/L Normal 3-13 [facility] Comment on above: Performed By: #### C MP3 #### [place] [address], [place] AST [Catalytic activity/Vol] 26 U/L Normal 15-46 [facility] Comment on above: Performed By: #### C MP3 #### [facility] [address], [place] Bilirubin [Mass/Vol] 1.1 mg/dL Normal 0.2-1.3 [facility] Comment on above: Performed By: #### C MP3 #### [facility] [address], [place] CO2 [Moles/Vol] 20 mmol/L Low 22-30 [facility] Comment on above: Performed By: #### C MP3 #### [facility] [address], [place] Creatinine [Mass/Vol] 0.50 mg/dL Low 0.52-1.25 [facility] Comment on above: Performed By: #### C MP3 #### [facility] [address], [place] eGFR OTHER > 90.0 Normal >60 [facility] Comment on above: Result Comment: KDIG O guidelines provide the following GFR categories: Stage GFR(ml/min/1.73 m2) Terms G1 >=90 Normal or high G2 60-89 Mildly decreased* G3a 45-59 Mildly to moderately decreased G3b 30-44 Moderately to severely decreased G4 15-29 Severely decreased G5 <15 Kidney failure *Relative to young adult level. In the absence of evidence of kidney damage, neither GFR category G1 nor G2 fulfill the criteria for CKD. The CKD-EPI equation is validated in individuals 18 years of age and older. Currently the best equation for estimating glomerular filtration rate (GFR) from serum creatinine in children is the Bedside Ellington equation. It is less accurate in patients with extremes of muscle mass, restriction of dietary protein, ingestion of creatine, extra-renal metabolism of creatinine, or treatment with medications that affect renal tubular creatinine secretion. Performed By: #### C MP3 #### [facility] [address], [place] GFR/1.73 sq M.predicted among blacks MDRD (S/P/Bld) [Vol rate/Area] mL/min/{1.73_m2} Normal >60 [facility] Comment on above: Performed By: #### C MP3 #### [facility] [address], [place] Glucose [Mass/Vol] 124 mg/dL High 70-100 [facility] Comment on above: Performed By: #### C MP3 #### [facility] [address], [place] Protein [Mass/Vol] 6.0 g/dL Low 6.3-8.2 [facility] Comment on above: Performed By: #### C MP3 #### [facility] [address], [place] Urea nitrogen [Mass/Vol] 7 mg/dL Normal 7-20 [facility] Comment on above: Performed By: #### C MP3 #### [facility] [address], [place] Albumin [Mass/Vol] 3.2 g/dL Low 3.5-5.0 [facility] Comment on above: Performed By: #### C MP3 #### [facility] [address], [place] Chloride [Moles/Vol] 104 mmol/L Normal 98-107 [facility] Comment on above: Performed By: #### C MP3 #### [facility] [address], [place] Potassium [Moles/Vol] 3.8 mmol/L Normal 3.5-5.1 [facility] Comment on above: Performed By: #### C MP3 #### [facility] [address], [place] Sodium [Moles/Vol] 131 mmol/L Low 135-145 [facility] Comment on above: Performed By: #### C MP3 #### [facility] [address], [place] Comprehensive Metabolic Pane lOrdered By: Amie Amor on 09-15-2020 Albumin [Mass/Vol] 3.2 g/dL Low 3.5 - 5.0 g/dL [facility] Work Phone: 1 ALP (Bld) [Catalytic activity/Vol] 148 U/L High 38 - 126 U/L [facility] Work Phone: [phone] ALT [Catalytic activity/Vol] 15 U/L 0 - 34 U/L [facility] Work Phone: Comment on above: The ALT test is perf ormed by an updated assay method. Please note that the reference intervals have been changed and are now sex specific. Anion gap [Moles/Vol] 7 mmol/L 3 - 13 mmol/L [facility] Work Phone: [phone] AST [Catalytic activity/Vol] 26 U/L 15 - 46 U/L [facility] Work Phone: [phone] Bilirubin [Mass/Vol] 1.1 mg/dL 0.2 - 1 .3 mg/dL [facility] Work Phone: [phone] Calcium [Mass/Vol] 8.5 mg/dL 8.4 - 10. 4 mg/dL [facility] Work Phone: [phone] Chloride [Moles/Vol] 104 mmol/L 98 - 10 7 mmol/L [facility] Work Phone: [phone] CO2 [Moles/Vol] 20 mmol/L Low 22 - 30 mmol/L [facility] Work Phone: [phone] Creatinine [Mass/Vol] 0.5 mg/dL Low 0.52 - 1.25 mg/dL [employer] Work Phone: [phone] EGFR IF NonAfrican [place] >90.0 >60 mL/min [employer] Work Phone: Comment on above: KDIGO guidelines pro vide the following GFR categories: Stage GFR(ml/min/1.73 m2) Terms G1 >=90 Normal or high G2 60-89 Mildly decreased* G3a 45-59 Mildly to moderately decreased G3b 30-44 Moderately to severely decreased G4 15-29 Severely decreased G5 <15 Kidney failure *Relative to young adult level. In the absence of evidence of kidney damage, neither GFR category G1 nor G2 fulfill the criteria for CKD. The CKD-EPI equation is validated in individuals 18 years of age and older. Currently the best equation for estimating glomerular filtration rate (GFR) from serum creatinine in children is the Bedside Ellington equation. It is less accurate in patients with extremes of muscle mass, restriction of dietary protein, ingestion of creatine, extra-renal metabolism of creatinine, or treatment with medications that affect renal tubular creatinine secretion. Free PSA/Total PSA [Mass fraction] 6.0 g/dL Low 6.3 - 8.2 g/dL [employer] Work Phone: [phone] GFR/1.73 sq M.predicted among blacks MDRD (S/P/Bld) [Vol rate/Area] mL/min/{1.73_m2} >60 mL/min [facility] Work Phone: Glucose [Mass/Vol] 124 mg/dL High 70 - 100 mg/dL [employer] Work Phone: [phone] Interpretation and review of laboratory results Abnormal [facility] Work Phone: Potassium [Moles/Vol] 3.8 mmol/L 3.5 - 5.1 mmol/L [employer] Work Phone: [phone] Sodium [Moles/Vol] 131 mmol/L Low 135 - 145 mmol/L [facility] Work Phone: [phone] Urea nitrogen (BldV) [Mass/Vol] 7 mg/dL 7 - 20 mg/dL [employer] Work Phone: [phone] Test Performed by [facility], [address] [place] [id number] [facility] Work Phone: [employer] Work Phone: CBCOrdered By: Mercedes bee on 09-14-2020 Hematocrit (Bld) [Volume fraction] 40.2 % 35.0 - 47.0 % [employer] Work Phone: Hemoglobin.gastrointest inal spec 1 Ql (Stl) 13.5 g/dL 11.7 - 16.0 g/dL [employer] Work Phone: Interpretation and review of laboratory results Abnormal [employer] Work Phone: MCH (RBC) [Entitic mass] 29.7 pg 26.0 - 34.0 pg [employer] Work Phone: MCHC (RBC) [Mass/Vol] 33.7 % 32.0 - 36.0 % [employer] Work Phone: MCV (RBC) [Entitic vol] 88.0 fL 79.0 - 98.0 fL [employer] Work Phone: Platelet distribution width (Bld) [Ratio] 13.9 % 11.5 - 14.5 % [employer] Work Phone: Platelet mean volume (Bld) [Entitic vol] 9.5 fL 7.4 - 10.4 fL [employer] Work Phone: Platelets (Bld) [#/Vol] 132 10*3/uL Low 140 - 440 10*3/uL [employer] Work Phone: RBC (Bld) [#/Vol] 4.57 10*6/uL 3.80 - 5.2 0 10*6/uL [employer] Work Phone: WBC (Bld) [#/Vol] 10.5 10*3/uL 3.6 - 10.7 10*3/uL [employer] Work Phone: Test Performed by [facility], [address] [place] [id number] [facility] Work Phone: [employer] Work Phone: Hemogramon 09-14-2020 Erythrocyte distribution width (RBC) [Ratio] 13.9 % Normal 11.5-14.5 [facility] Comment on above: Performed By: #### H EMOG #### [facility] [address], [place] Hematocrit (Bld) [Volume fraction] 40.2 % Normal 35.0-47.0 [facility] Comment on above: Performed By: #### H EMOG #### [facility] [address], [place] Hemoglobin (Bld) [Mass/Vol] 13.5 g/dL Normal 11.7-16.0 [facility] Comment on above: Performed By: #### H EMOG #### [facility] [address], [place] MCH (RBC) [Entitic mass] 29.7 pg Normal 26.0-34.0 [facility] Comment on above: Performed By: #### H EMOG #### [facility] [address], [place] MCHC 33.7 % Normal 32.0-36.0 [facility] Comment on above: Performed By: #### H EMOG #### [facility] [address], [place] MCV (RBC) [Entitic vol] 88.0 fL Normal 79.0-98.0 [facility] Comment on above: Performed By: #### H EMOG #### [facility] [address], [place] Platelet mean volume (Bld) [Entitic vol] 9.5 fL Normal 7.4-10.4 [facility] Comment on above: Performed By: #### H EMOG #### [facility] [address], [place] Platelets (Bld) [#/Vol] 132 10*3/uL Low 140-440 [facility] Comment on above: Performed By: #### H EMOG #### [facility] [address], [place] RBC (Bld) [#/Vol] 4.57 10*6/uL Normal 3.80-5.20 [facility] Comment on above: Performed By: #### H EMOG #### [facility] [employer] [facility] [address] [place] [address] WBC (Bld) [#/Vol] 10.5 10*3/uL Normal 3.6-10.7 [facility] Comment on above: Performed By: #### H EMOG #### [facility] [employer] [facility] [address], [place] TS GELon 09-14-2020 TS GEL ABO Group: O Rh, Gel: POS Antibody Screen Gel: NEG Normal [facility] Comment on above: Performed By: #### T SGL #### [facility] TYPE AND SCREENOrdered By: Susan Brooks on 09-14-2020 ABO Grouping O [employer] Work Phone: [phone] Type Positive [facility] Work Phone: [phone] Test Performed by [facility], [address] [place] [address] [facility] Work Phone: [phone] [facility] Work Phone: [phone] CBCOrdered By: Brittany Sanchez on 06-16-2020 Hematocrit (Bld) [Volume fraction] 35.7 % 35.0 - 47.0 % [facility] Work Phone: Hemoglobin.gastrointest inal spec 1 Ql (Stl) 11.9 g/dL 11.7 - 16.0 g/dL [facility] Work Phone: [phone] MCH (RBC) [Entitic mass] 29.6 pg 26.0 - 34.0 pg [facility] Work Phone: [phone] MCHC (RBC) [Mass/Vol] 33.2 % 32.0 - 36.0 % [facility] Work Phone: [phone] MCV (RBC) [Entitic vol] 89.2 fL 79.0 - 98.0 fL [employer] Work Phone: [phone] Platelet distribution width (Bld) [Ratio] 13.3 % 11.5 - 14.5 % [facility] Work Phone: [phone] Platelet mean volume (Bld) [Entitic vol] 8.9 fL 7.4 - 10.4 fL [facility] Work Phone: [phone] Platelets (Bld) [#/Vol] 153 10*3/uL 140 - 440 10*3/uL [facility] Work Phone: [phone] RBC (Bld) [#/Vol] 4.00 10*6/uL 3.80 - 5.2 0 10*6/uL [facility] Work Phone: [phone] WBC (Bld) [#/Vol] 8.7 10*3/uL 3.6 - 10.7 10*3/uL [facility] Work Phone: [phone] Test Performed by [employer] [facility], [address] , [address] Work Phone: [phone] Glucose tolerance, 1 hourOrd ered By: Brittany Sanchez on 06-16-2020 Glucose [Mass/Vol] 106 mg/dL <140 [facility] Work Phone: [phone] Test Performed by [place], [address] [place] [address] [facility] Work Phone: [phone] T4, FreeOrdered By: Brittany mcguire on 06-16-2020 Free T4 [Mass/Vol] 0.92 ng/dL 0.78 - 2. 19 ng/dL [facility] Work Phone: [phone] Test Performed by [place], [facility] [address] Work Phone: [phone] TSH without ReflexOrdered By : Brittany Sanchez on 06-16-2020 TSH Qn 0.971 u[IU]/mL 0.465 - 4.680 u[IU]/mL [facility] Work Phone: [phone] Test Performed by [facility] [place], [address] Work Phone: [phone] ABO/RHon 02-27-2020 Sodium [Moles/Vol] Positive [facility] [place], [place] Sodium [Moles/Vol] O [facility], [place] Test Performed by [employer] [facility], [address] , [place], [place] [id number] [place] [address] ANTIBODY SCREENon 02-27-2020 Sodium [Moles/Vol] Negative [place] Test Performed by [facility], [address] , [place], [place] [id number] [place] [address] CBCon 02-27-2020 Erythrocyte distribution width (RBC) [Ratio] 12.9 % 11.5 - 14.5 % [place] Hematocrit (Bld) [Volume fraction] 39.8 % 35 - 47 % [place] Hemoglobin (Bld) [Mass/Vol] 13.6 g/dL 11.7 - 16 g/dL [place] MCH (RBC) [Entitic mass] 28.9 pg 26 - 34 pg [place] MCHC (RBC) [Mass/Vol] 34.1 % 32 - 36 % [place] MCV (RBC) [Entitic vol] 84.7 fL 79 - 98 fL [place], [place] Platelet mean volume (Bld) [Entitic vol] 8.0 fL 7.4 - 10.4 fL [place] Platelets (Bld) [#/Vol] 173 10*3/uL 140 - 440 10*3/uL [place] RBC (Bld) [#/Vol] 4.70 10*6/uL 3.8 - 5.2 10*6/uL [place] WBC (Bld) [#/Vol] 7.7 10*3/uL 3.6 - 10.7 10*3/uL [place] Test Performed by [facility], [address] , [place], [place] [id number] [place] [address] Rubellaon 02-27-2020 Rubella virus IgG Ql (S) 3.8 [place] Comment on above: Interpretation Table : <10.0 Antibody NOT Detected >=10.0 Antibody Detected Test Performed by [facility], [address], [place], [place] [id number] [place] [address] T4, Freeon 02-27-2020 Free T4 [Mass/Vol] 1.1 ng/dL 0.78 - 2. 19 ng/dL [place] Test Performed by [facility], [address] , [address] TSH without Reflexon 021 TSH Qn 0.913 u[IU]/mL 0.465 - 4.68 u[IU]/mL [place] Test Performed by [facility], [address] , [address] Basic Metabolic Panelon Anion gap [Moles/Vol] 9 mmol/L [place] Comment on above: Test Performed by [facility], [address] , [place] [address] Calcium [Mass/Vol] 9.5 mg/dL 8.4 - 10. 4 mg/dL [place] Comment on above: Test Performed by [facility], [address] , [place] [address] Chloride [Moles/Vol] 104 mmol/L 98 - 10 7 mmol/L [place] Comment on above: Test Performed by [employer] [facility], [address] , [place] [address] CO2 [Moles/Vol] 25 mmol/L 22 - 30 mmol/L [place] Comment on above: Test Performed by [facility], [address] , [place] [address] Creatinine [Mass/Vol] 0.71 mg/dL 0.52 - 1.25 mg/dL [place] Comment on above: Test Performed by [employer] [facility], [address] , [place] [address] EGFR IF NonAfrican [place]ican >60.0 >60 mL/min [place] Comment on above: Test Performed by [facility], [address] , [place] [address] Source- MDRD equation with creatinine calibration to IDMS(NKDEP) eGFR not recommended for drug dose adjustment GFR/1.73 sq M predicted among blacks MDRD (S/P/Bld) [Vol rate/Area] mL/min/{1.73_m2} >60 mL/min [place] Comment on above: Test Performed by [facility], [address] , [place] [address] Glucose [Mass/Vol] 115 mg/dL High 70 - 100 mg/dL [place] Comment on above: Test Performed by [facility], [address] , [place] [address] Interpretation and review of laboratory results Abnormal [place] Potassium [Moles/Vol] 3.9 mmol/L 3.5 - 5.1 mmol/L [place] Comment on above: Test Performed by [facility], [address] , [place] [address] Sodium [Moles/Vol] 138 mmol/L 135 - 145 mmol/L [place] Urea nitrogen [Mass/Vol] 10 mg/dL 7 - 20 mg/dL [place] Comment on above: Test Performed by [facility], [address] , [place] [address] Test Performed by [facility], [address] , [address] D-Dimer, Quantitativeon D-Dimer, Quant 0.45 mg/L <0.19 - 0.50 [place] Comment on above: [employer] D-Dimer va lues of <0.50 mg/L FEU can be used in combination with a pre-test probability model (e.g. Well's) to exclude pulmonary embolism (PE) disease, as well as an aid in the diagnosis of deep vein thrombosis (DVT). Test Performed by [facility], [address] , [address] Hemogram (CBC) w/Auto Diffon 05-10-2019 Absolute Baso # 0.0 10*3/uL 0 - 0.2 10*3/uL [place] Comment on above: Test Performed by [facility], [address] , [place] [address] Absolute Neut # 6.0 10*3/uL 1.8 - 7 10*3/uL [place] Comment on above: Test Performed by [facility], [address] , [place], [place] [address] Basophils/100 WBC (Bld) 0.4 % 0 - 2 % [place] Comment on above: Test Performed by [facility], [address] , [place], [place] [address] Eosinophils (Bld) [#/Vol] 0.0 10*3/uL 0 - 0.5 10*3/uL [place] Comment on above: Test Performed by [facility], [address] , [place], [place] [address] Eosinophils/100 WBC (Bld) 0.2 % Low 1 - 6 % [place] Comment on above: Test Performed by [facility], [address] , [place], [place] [address] Erythrocyte distribution width (RBC) [Ratio] 13.6 % 11.5 - 14.5 % [place] Comment on above: Test Performed by [facility], [address] , [place], [place] [address] Granulocytes/100 WBC (Bld) 82.7 % High 40 - 80 % [place] Comment on above: Test Performed by [facility], [address] , [place], [place] [address] Hematocrit (Bld) [Volume fraction] 42.5 % 35 - 47 % [place] Comment on above: Test Performed by [facility], [address] , [place], [place] [address] Hemoglobin (Bld) [Mass/Vol] 14.3 g/dL 11.7 - 16 g/dL [place] Comment on above: Test Performed by [facility], [address] , [place], [place] [address] Interpretation and review of laboratory results Abnormal [place] Lymphocytes (Bld) [#/Vol] 0.9 10*3/uL Low 1 - 4.3 10*3/uL [place] Comment on above: Test Performed by [facility], [address] , [place], [place] [address] Lymphocytes/100 WBC (Bld) 12.6 % Low 20 - 40 % [place] Comment on above: Test Performed by [facility], [address] , [place], [place] [address] MCH (RBC) [Entitic mass] 29.3 pg 26 - 34 pg [place] Comment on above: Test Performed by [facility], [address] , [place], [place] [address] MCHC (RBC) [Mass/Vol] 33.6 % 32 - 36 % [place] Comment on above: Test Performed by [facility], [address] , [place], [place] [address] MCV (RBC) [Entitic vol] 87.3 fL 79 - 98 fL [place] Comment on above: Test Performed by [facility], [address] , [place] [phone] Monocytes (Bld) [#/Vol] 0.3 10*3/uL 0 - 0.8 10*3/uL [place] Comment on above: Test Performed by [facility], [address] , [place] [phone] Monocytes/100 WBC (Bld) 4.1 % 2 - 10 % [place] Comment on above: Test Performed by [facility], [address] , [place], [place] [address] Platelet mean volume (Bld) [Entitic vol] 8.5 fL 7.4 - 10.4 fL [place] Comment on above: Test Performed by [facility], [address] , [place], [place] [address] Platelets (Bld) [#/Vol] 198 10*3/uL 140 - 440 10*3/uL [place] Comment on above: Test Performed by [facility], [address] , [place], [place] [address] RBC (Bld) [#/Vol] 4.86 10*6/uL 3.8 - 5.2 10*6/uL [place] Comment on above: Test Performed by [facility], [address] , [place], [place] [address] WBC (Bld) [#/Vol] 7.2 10*3/uL 3.6 - 10.7 10*3/uL [place] Test Performed by [facility], [address] , [address] Troponin x1on 05-10-2019 Troponin I.cardiac [Mass/Vol] ng/mL 0 - 0.034 ng/mL [place] Comment on above: . Test Performed by [facility], [address] , [address] XR CHEST PORTABLEon 05-10-19 20 Patient Name: MACHELLE DULCE MARIA ---Diagnostic Radiology--- Exam Date/Time 05/10/2019 12:21:06 EDT Exam CR Chest Portable Ordering Physician MD SOLOMON, LEONIDES Accession Number [id number] CPT4 Codes 38981 () Reason For Exam Chest pain Report Examination: Portable Chest, 1306 hours 05/10/2019. Comparison: 09/30/2016. Reason For Study: Chest pain. Findings: Cardiac silhouette is normal in size. No mediastinal abnormality is observed. Lungs are well-aerated. No abnormal pleuroparenchymal opacity is observed. Osseous structures appear intact. Support Devices: None. Conclusion(s): No evidence of acute cardiopulmonary disease. Report Dictated on --- Final --- Dictating Physician: MD ADAN B NELSON Signed Date and Time: 05/10/2019 12:26 pm Signed by: MD ADAN B NELSON Transcribed Date and Time: 05/10/2019 12:27 [place], [place] [facility], [facility] Incoming Radiology Results From [facility] - 05/10/2019 12:28 PM EDT Patient Name: DULCE MARIA CARTY ---Diagnostic Radiology--- Exam Date/Time 05/10/2019 12:21:06 EDT Exam CR Chest Portable Ordering Physician MD SOLOMON, LEONIDES Accession Number [id number] CPT4 Codes 04111 () Reason For Exam Chest pain Report Examination: Portable Chest, 1306 hours 05/10/2019. Comparison: 09/30/2016. Reason For Study: Chest pain. Findings: Cardiac silhouette is normal in size. No mediastinal abnormality is observed. Lungs are well-aerated. No abnormal pleuroparenchymal opacity is observed. Osseous structures appear intact. Support Devices: None. Conclusion(s): No evidence of acute cardiopulmonary disease. Report Dictated on --- Final --- Dictating Physician: MD ADAN B NELSON Signed Date and Time: 05/10/2019 12:26 pm Signed by: MD ADAN B NELSON Transcribed Date and Time: 05/10/2019 12:27 [place] US ABDOMEN COMPLETEon 2017 US ABDOMEN COMPLETE ORIGINALULTRASOUND ABDOMEN COMPLETE CLINICAL STATEMENT: RLQ PAIN COMPARISON: [...] is obscured by bowel gas artifacts. The spleen is normal in size and echogenicity. No ascites. Limited survey images of the kidneys show normal echogenicity and no pelvicaliectasis. . Visualized IVC and aorta are not abnormally dilated. IMPRESSION:No significant findings. Interpreted By: Denys Thomas MDPreliminary Report By: Denys Thomas MDElectronically Signed By: Denys Thomas MD Dictated Date: 10/26/2017 10:20:08 AM Prelim Date: 10/26/2017 10:20:08 AM Sign Date: 10/26/2017 10:25:19 AM Normal [facility] ([place] .Auto Diffon 10-17-2017 Ammonia mass conc (P) 0.40 10 3/mcL Normal 0.15-1.00 [facility] [place] Comment on above: Performed By: #### G YCR ####[place] [id number] [place] [address] Basophils Auto #/vol (Bld) 0.00 10 3/mcL Normal 0.00-0.19 [facility] ([place]) Comment on above: Performed By: #### G YCR ####[address] [address] Basophils/100 WBC Auto (Bld) 0.7 % Normal 0.0-2.5 [facility] ([place] Comment on above: Performed By: #### G YCR ####[address] [address] Eosinophils Auto #/vol (Bld) 0.10 10 3/mcL Normal 0.00-0.40 [facility] ([place] Comment on above: Performed By: #### G YCR ####[address] [address] Eosinophils/100 WBC Auto (Bld) 0.8 % Normal 0.0-7.0 [facility] ([place] Comment on above: Performed By: #### G YCR ####[address] [address] Lymphocytes Auto #/vol (Bld) 1.40 10 3/mcL Normal 0.77-3.85 [facility] ([place] Comment on above: Performed By: #### G YCR ####[address] [address] Lymphocytes/100 WBC Auto (Bld) 20.8 % Normal 10.0-50.0 [facility] [place] Comment on above: Performed By: #### G YCR ####[address] [address] Monocytes/100 WBC Auto (Bld) 5.2 % Normal 1.7-13.0 [facility] ([place] Comment on above: Performed By: #### G YCR ####[address] [address] Neutrophils/100 WBC Auto (Bld) 72.5 % Normal 37.0-80.0 [facility] ([place] Comment on above: Performed By: #### G YCR ####[address] [address] .GFRon 10-17-2017 GFR Non- 84 ml/min/1.73sqm Normal [facility] ([place] Comment on above: Result Comment: GFR Population mean for , Non- Americans Ages 20-29 = 116 mL/min/1.73 sq.m. Ages 30-39 = 107 mL/min/1.73 sq.m. Ages 40-49 = 99 mL/min/1.73 sq.m. Ages 50-59 = 93 mL/min/1.73 sq.m. Ages 60-69 = 85 mL/min/1.73 sq.m. Ages 70+ = 75 mL/min/1.73 sq.m.Chronic Kidney Disease: Less than 60 mL/min/1.73 square metersEnd Stage Renal Disease: Less than 15 mL/min/1.73 square meters Performed By: #### C TPCR, NGPCR1 ####[address] [address] GFR 101 ml/min/1.73sqm Normal [facility] ([place] Comment on above: Result Comment: GFR Population mean for , Non- Americans Ages 20-29 = 116 mL/min/1.73 sq.m. Ages 30-39 = 107 mL/min/1.73 sq.m. Ages 40-49 = 99 mL/min/1.73 sq.m. Ages 50-59 = 93 mL/min/1.73 sq.m. Ages 60-69 = 85 mL/min/1.73 sq.m. Ages 70+ = 75 mL/min/1.73 sq.m.Chronic Kidney Disease: Less than 60 mL/min/1.73 square metersEnd Stage Renal Disease: Less than 15 mL/min/1.73 square meters Performed By: #### C TPCR, NGPCR1 ####[address] [address] .NEUABSon 10-17-2017 Neutrophil, Absolute 5.00 10 3/mcL Normal 2.85-6.16 A [facility] ([place]) Comment on above: Performed By: #### G YCR ####[address] [address] CBCon 10-17-2017 Erythrocyte distribution width Auto Ratio (RBC) 12.8 % Normal 11.5-14.5 [facility] ([place] Comment on above: Performed By: #### C TPCR, NGPCR1 ####[place] [address] Hematocrit Auto Volume Fraction (Bld) 41.7 % Normal 37.0-47.0 [facility] ([place] Comment on above: Performed By: #### C TPCR, NGPCR1 ####[place] [address] Hemoglobin mass conc (Bld) 14.5 G/dL Normal 12.0-16.0 [facility] ([place] Comment on above: Performed By: #### C TPCR, NGPCR1 ####[place] [address] MCH Auto Entitic mass (RBC) 29.6 pg Normal 27.0-31.2 [facility] ([place] Comment on above: Performed By: #### C TPCR, NGPCR1 ####[place] [address] MCHC Auto mass conc (RBC) 34.9 G/dL Normal 33.0-37.0 [facility] ([place] Comment on above: Performed By: #### C TPCR, NGPCR1 ####[place] [address] MCV Auto Entitic volume (RBC) 84.9 fL Normal 80.0-94.0 [facility] ([place] Comment on above: Performed By: #### C TPCR, NGPCR1 ####[place] [address] Platelet mean volume Auto Entitic volume (Bld) 9.5 fL Normal 7.4-10.4 [facility] ([place] Comment on above: Performed By: #### C TPCR, NGPCR1 ####[place] [address] Platelets Auto #/vol (Bld) 197 10 3/mcL Normal 130-400 [facility] ([place] Comment on above: Performed By: #### C TPCR, NGPCR1 ####[place] [address] RBC Auto #/vol (Bld) 4.91 10 6/mcL Normal 4.20-5.40 A [facility] ([place] Comment on above: Performed By: #### C TPCR, NGPCR1 ####[place] [address] WBC Auto #/vol (Bld) 6.90 10 3/mcL Normal 4.60-10.80 A [facility] ([place] Comment on above: Performed By: #### C TPCR, NGPCR1 ####[place] [address] CMPon 10-17-2017 Albumin mass conc 4.4 G/dL Normal 3.5-5.0 [facility] ([place] Comment on above: Performed By: #### C TPCR, NGPCR1 ####[place] [address] Albumin/Globulin mass ratio 1.5 {ratio} Normal 1.1-2.5 [facility] ([place] Comment on above: Performed By: #### C TPCR, NGPCR1 ####[place] [address] ALP enzyme act/vol 71 U/L Normal 40-135 [facility] ([place]) Comment on above: Performed By: #### C TPCR, NGPCR1 ####[place] [address] ALT enzyme act/vol 30 U/L Normal 10-35 [facility] ([place] Comment on above: Performed By: #### C TPCR, NGPCR1 ####[place] [address] AST enzyme act/vol 18 U/L Normal 10-40 [facility] ([place] Comment on above: Performed By: #### C TPCR, NGPCR1 ####[place] [address] Bili Total 0.7 mg/dL Normal 0.2-1.0 [facility] ([place] Comment on above: Performed By: #### C TPCR, NGPCR1 ####[place] [address] Calcium mass conc 9.4 mg/dL Normal 8.4-10.2 [facility] ([place] Comment on above: Performed By: #### C TPCR, NGPCR1 ####[place] [address] Chloride molar conc 103 mmol/L Normal 98-107 [facility] ([place]) Comment on above: Performed By: #### C TPCR, NGPCR1 ####[place] [address] CO2 molar conc 26 mmol/L Normal 22-29 [facility] ([place] Comment on above: Performed By: #### C TPCR, NGPCR1 ####[place] [address] Creatinine mass conc 0.85 mg/dL Normal 0.55-1.02 [facility] [place] Comment on above: Performed By: #### C TPCR, NGPCR1 ####[place] [address] Electrolyte Balance 11.0 mEq/L Normal [facility] ([place] Comment on above: Performed By: #### C TPCR, NGPCR1 ####[place] [address] Globulin Calculated mass conc (S) 2.9 G/dL Normal [facility] ([place] Comment on above: Performed By: #### C TPCR, NGPCR1 ####[place] [address] Glucose mass conc 87 mg/dL Normal 70-105 [facility] ([place] Comment on above: Performed By: #### C TPCR, NGPCR1 ####[place] [address] Potassium molar conc 4.3 mmol/L Normal 3.5-5.1 [facility] [place] Comment on above: Performed By: #### C TPCR, NGPCR1 ####[place] [address] Protein mass conc 7.3 G/dL Normal 6.4-8.2 [facility] ([place] Comment on above: Performed By: #### C TPCR, NGPCR1 ####[facility] [place] [address] Sodium molar conc 140 mmol/L Normal 136-145 [facility] ([place] Comment on above: Performed By: #### C TPCR, NGPCR1 ####[facility] [place] [address] Urea nitrogen mass conc 11 mg/dL Normal 7-18 A [facility] ([place] Comment on above: Performed By: #### C TPCR, NGPCR1 ####[facility] [place] [address] Urea nitrogen/Creatinine mass ratio 13 ratio Normal 7-27 [facility] ([place] Comment on above: Performed By: #### C TPCR, NGPCR1 ####[place] [id number] [place] [address] US PELVIS NON-OB COMPLETEon 09-21-2017 US PELVIS NON-OB COMPLETE ORIGINALUS PELVIS NON-OB TRANSABDOMINAL ONLY Clinical Statement: Pelvic pain. Patient declined transvaginal imaging. Comparison: CT abdomen/pelvis 03/28/2011. FINDINGS: UTERUS: 7.6 x 2.8 x 4.3 cm, anteverted Myometrium: HomogeneousEndometrium: 5 mm, not thickened (double echo). Cervix: UnremarkableFree fluid: None OVARIES:Right: 4.1 x 2.8 x 2.4 cm. Blood flow demonstrated. Small follicles present. Dominant, 2.2 cm follicle is physiologic.Left: 1.8 x 1 x 1.7 cm. Blood flow demonstrated. Small follicles present. No adnexal mass. IMPRESSION: No acute finding. I have personally reviewed the images of this examination and agree with the resident's findings and interpretation. Interpreted By: Carmita Blanco MDPreliminary Report By: Teresa Figueroa DOElectronically Signed By: Carmita Blanco MD Dictated Date: 09/21/2017 3:03:30 PM Prelim Date: 09/21/2017 3:33:45 PM Sign Date: 09/21/2017 4:38:35 PM Normal [facility] ([place] CURon 07-18-2017 CUR . MICRO - MicrobiologyPROCEDURE: Urine Culture [*1] Urine BODY SITE:COLLECTED DATE/TIME: 07/16/2017 12:17 EDT RECEIVED DATE/TIME: 07/16/2017 20:12 EDTSTART DATE/TIME: 07/16/2017 20:13 EDT FREE TEXT SOURCE:FINAL REPORTSFinal Report []Verified Date/Time/Personnel: 07/18/2017 07:32 EDT2,000 organisms per mLMixed without predominant isolate(s). SensitivityTesting not indicated. Probably contamination. Repeatculture suggested.PRELIMINARY REPORTSPreliminary Report []Verified Date/Time/Personnel: 07/17/2017 07:43 EDTNo growth to datePerforming Locations*1: This test was performed at: [address], [address] [place] [address] ([place]) Comment on above: Performed By: #### C TPCR, NGPCR1 ####[place] [address] VL VENOUS UNILATERAL LOWER E XT FOR DVTon 07-18-2017 VL VENOUS UNILATERAL LOWER EXT FOR DVT ORIGINALDUPLEX LOWER EXTREMITY VENOUS DOPPLER: Right-sided Clinical Statement: calf pain , Comparison: None Findings: The RIGHT femoral and popliteal veins and the proximal visualized portions of the posterior tibial, peroneal, soleal and gastrocnemius veins show no direct or indirect evidence of thrombosis. There is normal phasic spontaneous flow in these veins which are also compressible. Spectral analysis shows normal flow augmentation in the superficial femoral and popliteal veins with physiologic maneuvers. The greater and lesser saphenous veins are also patent. IMPRESSION:No evidence of deep vein thrombosis in RIGHT lower extremity. Interpreted By: Denys Thomas MDPreliminary Report By: Denys Thomas MDElectronically Signed By: Denys Thomas MD Dictated Date: 07/18/2017 9:54:34 AM Prelim Date: 07/18/2017 9:54:34 AM Sign Date: 07/18/2017 9:54:48 AM Normal [facility] ([place]) ESRon 07-17-2017 Erythrocyte Sed Rate 3 mm/hr Normal 0-20 [facility] ([place]) Comment on above: Performed By: #### C TPCR, NGPCR1 ####[place] [address] .GFRon 07-16-2017 GFR 109 ml/min/1.73sqm Normal [facility] ([place]) Comment on above: Result Comment: GFR Population mean for , Non- Americans Ages 20-29 = 116 mL/min/1.73 sq.m. Ages 30-39 = 107 mL/min/1.73 sq.m. Ages 40-49 = 99 mL/min/1.73 sq.m. Ages 50-59 = 93 mL/min/1.73 sq.m. Ages 60-69 = 85 mL/min/1.73 sq.m. Ages 70+ = 75 mL/min/1.73 sq.m.Chronic Kidney Disease: Less than 60 mL/min/1.73 square metersEnd Stage Renal Disease: Less than 15 mL/min/1.73 square meters Performed By: #### C TPCR, NGPCR1 ####[place] [address] GFR Non- >60 Normal [facility] ([place]) Comment on above: Result Comment: GFR Population mean for , Non- Americans Ages 20-29 = 116 mL/min/1.73 sq.m. Ages 30-39 = 107 mL/min/1.73 sq.m. Ages 40-49 = 99 mL/min/1.73 sq.m. Ages 50-59 = 93 mL/min/1.73 sq.m. Ages 60-69 = 85 mL/min/1.73 sq.m. Ages 70+ = 75 mL/min/1.73 sq.m.Chronic Kidney Disease: Less than 60 mL/min/1.73 square metersEnd Stage Renal Disease: Less than 15 mL/min/1.73 square meters Performed By: #### C TPCR, NGPCR1 ####[place] [address] .Urinalysis Microscopic (AO) on 07-16-2017 RBC Test strip #/vol (U) None Seen Normal None Seen [facility] ([place] Comment on above: Performed By: #### C TPCR, NGPCR1 ####[place] [address] UA Squam Epithelial None Seen Normal None Seen [facility] ([place]) Comment on above: Performed By: #### C TPCR, NGPCR1 ####[place] [address] UA WBC None Seen Normal None Seen [facility] ([place] Comment on above: Performed By: #### C TPCR, NGPCR1 ####[place] [address] BMPon 07-16-2017 Calcium mass conc 9.0 mg/dL Normal 8.4-10.2 [facility] ([place] Comment on above: Performed By: #### H GMP, BMP, GFR ####[place] [address]#### ESR ####[place] [address] Chloride molar conc 103 mmol/L Normal 98-107 [facility] ([place]) Comment on above: Performed By: #### H GMP, BMP, GFR ####[place] [address]#### ESR ####[place] [address] CO2 molar conc 27 mmol/L Normal 22-29 [facility] ([place] Comment on above: Performed By: #### H GMP, BMP, GFR ####[place] [address]#### ESR ####[place] [address] Creatinine mass conc 0.8 mg/dL Normal 0.6-1.2 [facility] ([place]) Comment on above: Performed By: #### H GMP, BMP, GFR ####[place] [address]#### ESR ####[place] [address] Electrolyte Balance 7.0 mEq/L Normal [facility] ([place]) Comment on above: Performed By: #### H GMP, BMP, GFR ####[place] [address]#### ESR ####[address] [address] Glucose mass conc 105 mg/dL Normal 70-105 [facility] ([place]) Comment on above: Performed By: #### H GMP, BMP, GFR ####[facility] [place] [address]#### ESR ####[address] [address] Potassium molar conc 4.4 mmol/L Normal 3.5-5.1 [facility] ([place]) Comment on above: Performed By: #### H GMP, BMP, GFR ####[place] [address]#### ESR ####[place] [address] Sodium molar conc 137 mmol/L Normal 136-146 [facility] ([place]) Comment on above: Performed By: #### H GMP, BMP, GFR ####[place] [address]#### ESR ####[place] [address] Urea nitrogen mass conc 11.8 mg/dL Normal 7.0-18.0 A [facility] ([place]) Comment on above: Performed By: #### H GMP, BMP, GFR ####[place] [address]#### ESR ####[place] [address] Urea nitrogen/Creatinine mass ratio 15 ratio Normal 7-27 [facility] ([place]) Comment on above: Performed By: #### H GMP, BMP, GFR ####[place] [address]#### ESR ####[place] [address] HGMPon 07-16-2017 Erythrocyte distribution width Auto Ratio (RBC) 13.0 % Normal 11.5-14.5 [facility] ([place]) Comment on above: Performed By: #### H GMP, BMP, GFR ####[place] [address]#### ESR ####[place] [address] Hematocrit Auto Volume Fraction (Bld) 43.7 % Normal 37.0-47.0 [facility] ([place]) Comment on above: Performed By: #### H GMP, BMP, GFR ####[place] [address]#### ESR ####[place] [address] Hemoglobin mass conc (Bld) 14.6 G/dL Normal 12.0-16.0 [facility] ([place]) Comment on above: Performed By: #### H GMP, BMP, GFR ####[place] [address]#### ESR ####[place] [address] MCH Auto Entitic mass (RBC) 28.5 pg Normal 27.0-31.2 [facility] ([place]) Comment on above: Performed By: #### H GMP, BMP, GFR ####[place] [address]#### ESR ####[place] [address] MCHC Auto mass conc (RBC) 33.4 G/dL Normal 33.0-37.0 [facility] ([place]) Comment on above: Performed By: #### H GMP, BMP, GFR ####[place] [address]#### ESR ####[place] [address] MCV Auto Entitic volume (RBC) 85.2 fL Normal 80.0-94.0 [facility] ([place]) Comment on above: Performed By: #### H GMP, BMP, GFR ####[place] [address]#### ESR ####[place] [address] Platelet mean volume Auto Entitic volume (Bld) 9.5 fL Normal 7.4-10.4 [facility] ([place] Comment on above: Performed By: #### H GMP, BMP, GFR ####[place] [address]#### ESR ####[place] [address] Platelets Auto #/vol (Bld) 181 10 3/mcL Normal 130-400 [facility] ([place]) Comment on above: Performed By: #### H GMP, BMP, GFR ####[place] [address]#### ESR ####[place] [address] RBC Auto #/vol (Bld) 5.13 10 6/mcL Normal 4.20-5.40 A [facility] ([place]) Comment on above: Performed By: #### H GMP, BMP, GFR ####[place] [address]#### ESR ####[place] [address] WBC Auto #/vol (Bld) 6.50 10 3/mcL Normal 4.60-10.80 A [facility] ([place]) Comment on above: Performed By: #### H GMP, BMP, GFR ####[place] [address]#### ESR ####[place] [address] UAon 07-16-2017 Color Nom (U) YELLOW Normal [facility] ([place]) Comment on above: Performed By: #### C TPCR, NGPCR1 ####[place] [address] Glucose mass conc (U) Negative Normal On license of [facility] ([place]) Comment on above: Performed By: #### C TPCR, NGPCR1 ####[place] [address] Ketones Ql (U) Negative Normal [facility] ([place]) Comment on above: Performed By: #### C TPCR, NGPCR1 ####[address] [address] UA Appear CLEAR [facility] ([place]) Comment on above: Performed By: #### C TPCR, NGPCR1 ####[address] [address] UA Blood TRACE-LYSED [facility] ([place]) Comment on above: Performed By: #### C TPCR, NGPCR1 ####[place] [address] UA Leuk Est Negative [facility] ([place]) Comment on above: Performed By: #### C TPCR, NGPCR1 ####[place] [address] UA Nitrite Negative [facility] ([place]) Comment on above: Performed By: #### C TPCR, NGPCR1 ####[place] [address] UA pH 6.5 [facility] ([place] Comment on above: Performed By: #### C TPCR, NGPCR1 ####[place] [address] UA Protein Negative [facility] ([place]) Comment on above: Performed By: #### C TPCR, NGPCR1 ####[place] [address] UA Spec Grav 1.025 [facility] ([place]) Comment on above: Performed By: #### C TPCR, NGPCR1 ####[place] [address] UA Specimen Type Clean Catch [facility] ([place]) Comment on above: Performed By: #### C TPCR, NGPCR1 ####[place] [address] UA Urobilinogen 0.2 E.U./dL [facility] ([place]) Comment on above: Performed By: #### C TPCR, NGPCR1 ####[place] [address] Urobilinogen Test strip Qn (U) Negative Normal [facility] ([place]) Comment on above: Performed By: #### C TPCR, NGPCR1 ####[address] [address] FT3on 07-06-2017 T3 free mass conc 2.7 pg/mL Normal 2.3-4.0 [facility] ([place]) Comment on above: Performed By: #### T SH, FT4, FT3 ####[address] [place], [place] [address] FT4on 07-06-2017 T4 free mass conc 1.6 ng/mL Normal 0.6-1.7 [facility] ([place]) Comment on above: Performed By: #### T SH, FT4, FT3 ####[address] [place], [place] [address] TSHon 07-06-2017 Thyrotropin Qn 0.65 mcIU/mL Normal 0.27-4.20 [facility] ([place]) Comment on above: Performed By: #### T SH, FT4, FT3 ####[place] [place], [place] [address] CURon 06-22-2017 CUR . MICRO - MicrobiologyPROCEDURE: Urine Culture [*1] Urine BODY SITE:COLLECTED DATE/TIME: 06/20/2017 10:30 EDT RECEIVED DATE/TIME: 06/20/2017 21:06 EDTSTART DATE/TIME: 06/20/2017 21:06 EDT FREE TEXT SOURCE:FINAL REPORTSFinal Report []Verified Date/Time/Personnel: 06/22/2017 07:33 EDT20,000 organisms per mLMixed without predominant isolate(s). SensitivityTesting not indicated. Probably contamination. Repeatculture suggested.PRELIMINARY REPORTSPreliminary Report []Verified Date/Time/Personnel: 06/21/2017 08:14 EDTNo growth to datePerforming Locations*1: This test was performed at: [facility], [address] [place] [address], [id number] , [facility] Normal [facility] ([place]) Comment on above: Performed By: #### C UR ####[place] [id number] [address] [place] [address] MRI BRAIN W/O CONTRASTon MRI BRAIN W/O CONTRAST ORIGINALMRI BRAIN W/O CONTRAST Clinical Statement: MIGRAINES TECHNIQUE: Sagittal T1, axial FLAIR, T2 and diffusion-weighted images of the brain with ADC maps. COMPARISON: CT sinus 09/22/2016 FINDINGS: Diffusion imaging shows no hyperacute, acute, or early subacute infarction. There is no mass, mass-effect, or abnormal extra-axial fluid collection. No cerebellar tonsillar ectopia. Midline structures appear unremarkable. There is no abnormal brain parenchymal signal. The ventricles are normal in size, shape and position. There are preserved signal voids in the larger intracranial vessels. The mastoid air cells are clear. There is an air-fluid level in the right maxillary sinus consistent with acute sinusitis. The marrow signal pattern is unremarkable. IMPRESSION:1. Unremarkable MRI appearance of the brain.2. Air-fluid level in the right maxillary sinus consistent with acute sinusitis. Interpreted By: Connie CastorenaPreliminary Report By: Connie CastorenaElectronically Signed By: Connie Castorena Dictated Date: 04/11/2017 7:32:51 PM Prelim Date: 04/11/2017 7:32:51 PM Sign Date: 04/11/2017 7:35:56 PM Normal [facility] ([place]) [employer] Inspector Cytology Reporton 2016 Eyeg[employer] Inspector Cytology Report . Pathology ReportsAccession: Collected Date/Time: Received Date/Time: Pathologist:[id number] 12/06/2016 10:34 EDT 12/06/2016 18:00 EDT [employer] Inspector Cytology ReportSPECIMEN:Specimen Description: Liquid Prep Reflex ASCUSSpecimen: Cervical/EndocervicalScr eening or Diagnostic: ScreeningRELEVANT HISTORY:LMP: 11/24/[id number] ADEQUACY:SATISFACTORY FOR EVALUATIONENDOCERVICAL/T RANSFORMATIONAL ZONE COMPONENT PRESENTINTERPRETATION/RE SULTS:NEGATIVE FOR INTRAEPITHELIAL LESION OR MALIGNANCYElectronically Signed byPathology report verified by [facility] Hospitalcreened by: TIERNEYElectronically signed by Lenora Ford CT (ASCP)Sign-Out Date: 12/12/2016 10:33Performing Lab: [facility] [address] [place] [id number] [facility] CenterThe Pap test is a screening test for cervical cancer. As evidenced by published data, it is subject to both inherent false negative and false positive results. Your patient's results should be interpreted in context with pertinent clinical history including gynecological examination. [facility] ([place]) Comment on above: Performed By: #### G YCR ####[place] [address] CTPCRon 12-08-2016 C. trachomatis Interp C. trachomatis DNA not detected. Specimen is presumptive negative for C. trachomatis. A negative result does not preclude C. trachomatis infection because results depend on adequate specimen collection, absence of inhibitors, and sufficient DNA to be detected. [facility]) Comment on above: Performed By: #### C TPCR, NGPCR1 ####[place] [address] C.trachomatis PCR Negative [facility] ([place]) Comment on above: Result Comment: Mole cular (PCR) assay performed on the [employer] system. Performed By: #### C TPCR, NGPCR1 ####[place] [address] Chlam Source Cervix [facility]) Comment on above: Performed By: #### C TPCR, NGPCR1 ####[place] [address] NGPCRon 12-08-2016 GC PCR Source Cervix Normal [facility] ([place]) Comment on above: Performed By: #### C TPCR, NGPCR1 ####[place] [address] N. gonorrhoeae (PCR) Negative [facility] ([place]) Comment on above: Result Comment: Mole cular (PCR) assay performed on the [employer] 4800 System. Performed By: #### C TPCR, NGPCR1 ####[place] [address] N. gonorrhoeae Interp N. gonorrhoeae DNA not detected. Specimen is presumptive negative for N. gonorrhoeae. A negative result does not preclude Neisseria gonorrhoeae infection because results depend on adequate specimen collection, absence of inhibitors, and sufficient DNA to be detected. Normal [facility] ([place]) Comment on above: Performed By: #### C TPCR, NGPCR1 ####[facility] [place] [address] Basic Metabolic Panelon 08-05 Glucose mass conc 145 mg/dL High 70-105 [facility] Comment on above: Order Comment: CBN Performed By: #### B MP ####[place] [address] [address] BUN/Creatinine Ratio 9 mg/mg Normal 7-27 [facility] hospital Comment on above: Order Comment: CBN Performed By: #### B MP ####[address] [address] Creatinine 0.9 mg/dL Normal 0.6-1.2 [facility] Comment on above: Order Comment: CBN Performed By: #### B MP ####[address] [address] Calcium 9.7 mg/dL Normal 8.4-10.2 [facility] Comment on above: Order Comment: CBN Performed By: #### B MP ####[address] [address] CO2 27 mmol/L Normal 22-29 [facility] Comment on above: Order Comment: CBN Performed By: #### B MP ####[place] [address] [address] Electrolyte Balance 9.0 mEq/L Normal [facility] Comment on above: Order Comment: CBN Performed By: #### B MP ####[place] [address] [address] Urea nitrogen 8 mg/dL Normal 7-18 [facility] Comment on above: Order Comment: CBN Performed By: #### B MP ####[address] [address] Chloride 104 mmol/L Normal 98-107 [facility] Comment on above: Order Comment: CBN Performed By: #### B MP ####[address] [address] Potassium molar conc 4.5 mmol/L Normal 3.5-5.1 [facility] Comment on above: Order Comment: CBN Performed By: #### B MP ####[address] [address] Sodium 140 mmol/L Normal 136-146 [facility] Comment on above: Order Comment: CBN Performed By: #### B MP ####[address] [address] CBC (AO)on 08-18-2016 Basophils Auto #/vol (Bld) 0.00 10 3/mcL Normal 0.00-0.19 [facility] Comment on above: Order Comment: CBN Performed By: #### C BCO ####[address] [address] Basophils/100 WBC Auto (Bld) 0.9 % Normal 0.0-2.5 [facility] Comment on above: Order Comment: CBN Performed By: #### C BCO ####[address] [address] Eosinophils 0.00 10 3/mcL Normal 0.00-0.40 [facility] Comment on above: Order Comment: CBN Performed By: #### C BCO ####[address] [address] Eosinophils/100 leukocytes 0.6 % Normal 0.0-7.0 [facility] Comment on above: Order Comment: CBN Performed By: #### C BCO ####[address] [address] Erythrocyte distribution width Auto Ratio (RBC) 12.6 % Normal 11.5-14.5 [facility] Comment on above: Order Comment: CBN Performed By: #### C BCO ####[address] [address] Erythrocytes (RBC) 5.39 10 6/mcL Normal 4.20-5.40 On license of [facility] Comment on above: Order Comment: CBN Performed By: #### C BCO ####[address] [address] Hematocrit (HCT) 44.2 % Normal 37.0-47.0 [facility] Comment on above: Order Comment: CBN Performed By: #### C BCO ####[address] [address] Hemoglobin mass conc (Bld) 15.0 G/dL Normal 12.0-16.0 [facility] Comment on above: Order Comment: CBN Performed By: #### C BCO ####[address] [address] Lymphocytes 1.10 10 3/mcL Normal 0.77-3.85 [facility] Comment on above: Order Comment: CBN Performed By: #### C BCO ####[address] [address] Lymphocytes/100 leukocytes 19.8 % Normal 10.0-50.0 [facility] Comment on above: Order Comment: CBN Performed By: #### C BCO ####[address] [address] MCH 27.9 pg Normal 27.0-31.2 [facility] Comment on above: Order Comment: CBN Performed By: #### C BCO ####[address] [address] MCHC mass conc (RBC) 34.0 G/dL Normal 33.0-37.0 [facility] Comment on above: Order Comment: CBN Performed By: #### C BCO ####[address] [address] MCV 82.0 fL Normal 80.0-94.0 [facility] Comment on above: Order Comment: CBN Performed By: #### C BCO ####[address] [address] Monocytes 0.30 10 3/mcL Normal 0.15-1.00 [facility] Comment on above: Order Comment: CBN Performed By: #### C BCO ####[address] [address] Monocytes/100 leukocytes 4.8 % Normal 1.7-13.0 [facility] Comment on above: Order Comment: CBN Performed By: #### C BCO ####[address] [address] Neutrophils 4.10 10 3/mcL Normal 2.85-6.16 [facility] Comment on above: Order Comment: CBN Performed By: #### C BCO ####[address] [address] Neutrophils/100 WBC Auto (Bld) 73.9 % Normal 37.0-80.0 [facility] Comment on above: Order Comment: CBN Performed By: #### C BCO ####[address] [address] Platelet mean volume (PMV) 9.0 fL Normal 7.4-10.4 [facility] Comment on above: Order Comment: CBN Performed By: #### C BCO ####[address] [address] Platelets 165 10 3/mcL Normal 130-400 [facility] Comment on above: Order Comment: CBN Performed By: #### C BCO ####[address] [address] WBC (Leukocytes) 5.50 10 3/mcL Normal 4.60-10.80 [facility] Comment on above: Order Comment: CBN Performed By: #### C BCO ####[address] [address] Glomerular Filtration Rate E stimateon 08-18-2016 eGFR (non-black) mL/min/{1.73_m2} Normal [facility] Comment on above: Order Comment: CBN Result Comment: Kash vu mean GFR = 116 mL/min/1.73 sq.m. for ages 20-29 years. Chronic Kidney Disease: Less than 60 mL/min/1.73 square metersEnd Stage Renal Disease: Less than 15 mL/min/1.73 square meters Performed By: #### G FR ####[id number] [place] [address] Emergency Room Note on 08-18-2016 [facility] Note Normal [facility] Patient Summary Documentson 08-18-2016 Patient Summary Documents Normal [facility] Stress Labon 2016 [place] Stress Lab Normal [facility] XR ANKLE COMPLETE LEFTon XR ANKLE COMPLETE LEFT ORIGINALXR ANKLE COMPLETE LEFT, 3 Views. CLINICAL STATEMENT: acute pain COMPARISON: None FINDINGS: No acute fracture or dislocation is identified. The ankle mortise and talar dome are normal. The joint spaces are maintained. There is no radiopaque foreign body. There is minimal soft tissue swelling over the medial malleolus. IMPRESSION: No acute fracture or dislocation. Interpreted By: Eliz Davisreliminary Report By: Eliz Davis MDElectronically Signed By: Eliz Davis MD Dictated Date: 08/07/2016 4:17:59 PM Prelim Date: 08/07/2016 4:17:59 PM Sign Date: 08/07/2016 4:18:51 PM Normal [facility] XR FOOT COMPLETE LEFTon XR FOOT COMPLETE LEFT ORIGINALXR FOOT CO MPLETE LEFT, 3 views CLINICAL STATEMENT: acute pain COMPARISON: None FINDINGS: A 3 mm tiny osseous fragment is seen at the superior aspect of the navicular bone. There is no adjacent soft tissue swelling. In addition, 2 tiny faint osseous fragments are seen adjacent to the proximal cuboid bone on the oblique view. The joint spaces are maintained. No significant soft tissue abnormality identified. IMPRESSION: Questionable tiny avulsion fractures of the navicular bone and cuboid. Correlation with the patient's area of tenderness is recommended. Interpreted By: Eliz Davisreliminary Report By: Eliz Davis MDElectronically Signed By: Eliz Davis MD Dictated Date: 08/07/2016 4:19:00 PM Prelim Date: 08/07/2016 4:19:00 PM Sign Date: 08/07/2016 4:23:16 PM Normal [facility] Vital Signs Date Time Vital Sign Value Performing Clinician Facility 12-16-2024 09:40-0500 Body height 167.6 cm Claire Lewis DO Work Phone: [facility] 12-16-2024 09:40-0500 Body mass index (BMI) [Ratio] 26.47 kg/m2 Claire Joshua DO Work Phone: [facility] 12-16-2024 09:40-0500 Body weight 74.39 kg Claire Joshua DO Work Phone: [facility] 12-16-2024 09:40-0500 Diastolic blood pressure 72 mm[Hg] Claire Joshua DO Work Phone: [facility] 12-16-2024 09:40-0500 Heart rate 92 /min Claire Joshua DO Work Phone: [facility] 12-16-2024 09:40-0500 Systolic blood pressure 107 mm[Hg] Claire Joshua DO Work Phone: [facility] 12-12-2024 09:31-0500 Body height 167.6 cm Boston Cortez MD Work Phone: [facility] 12-12-2024 09:31-0500 Body mass index (BMI) [Ratio] 25.02 kg/m2 Boston Cortez MD Work Phone: [facility] 12-12-2024 09:31-0500 Body weight 70.31 kg Boston Cortez MD Work Phone: [facility] 12-12-2024 09:31-0500 Diastolic blood pressure 70 mm[Hg] Boston Cortez MD Work Phone: [facility] 12-12-2024 09:31-0500 Heart rate 100 /min Boston Cortez MD Work Phone: [facility] 12-12-2024 09:31-0500 Systolic blood pressure 116 mm[Hg] Boston Cortez MD Work Phone: [facility] 12-08-2024 04:15-0500 Diastolic blood pressure 74 mm[Hg] Jamal Almaguer MD Work Phone: [facility] 12-08-2024 04:15-0500 Heart rate 82 /min Jamal Almaguer MD Work Phone: [facility] 12-08-2024 04:15-0500 Respiratory rate 16 /min Jamal Almaguer MD Work Phone: [facility] 12-08-2024 04:15-0500 SaO2% (BldA) [Mass fraction] 98 % Jamal Almaguer MD Work Phone: [facility] 12-08-2024 04:15-0500 Systolic blood pressure 113 mm[Hg] Jamal Almaguer MD Work Phone: [facility] 12-08-2024 02:45-0500 Body temperature 98.01 [degF] Jamal Almaguer MD Work Phone: [facility] 12-07-2024 14:50-0500 Diastolic blood pressure 71 mm[Hg] Teetee Aleman DO Work Phone: [facility] 12-07-2024 14:50-0500 Heart rate 88 /min Teetee Aleman DO Work Phone: [facility] 12-07-2024 14:50-0500 Respiratory rate 16 /min Teetee Aleman DO Work Phone: [facility] 12-07-2024 14:50-0500 SaO2% (BldA) [Mass fraction] 100 % Teetee Aleman DO Work Phone: [facility] 12-07-2024 14:50-0500 Systolic blood pressure 114 mm[Hg] Teetee Aleman DO Work Phone: [facility] 12-07-2024 13:34-0500 Body height 167.6 cm Teetee Aleman DO Work Phone: [facility] 12-07-2024 13:34-0500 Body mass index (BMI) [Ratio] 25.02 kg/m2 Teetee Aleman DO Work Phone: [facility] 12-07-2024 13:34-0500 Body weight 70.31 kg Teetee Aleman DO Work Phone: [facility] 12-03-2024 10:23-0400 Body temperature 97.5 [degF] Jeffry Venczel DO Work Phone: [facility] 12-03-2024 10:23-0400 Diastolic blood pressure 79 mm[Hg] Jeffry Venczel DO Work Phone: [facility] 12-03-2024 10:23-0400 Heart rate 97 /min Jeffry Venczel DO Work Phone: [facility] 12-03-2024 10:23-0400 Respiratory rate 16 /min Jeffry Venczel DO Work Phone: [facility] 12-03-2024 10:23-0400 SaO2% (BldA) [Mass fraction] 99 % Jeffry Venczel DO Work Phone: [facility] 12-03-2024 10:23-0400 Systolic blood pressure 111 mm[Hg] Jeffry Venczel DO Work Phone: [facility] 12-03-2024 06:01-0400 Body height 167.6 cm Jeffry Venczel DO Work Phone: [facility] 12-03-2024 06:01-0400 Body mass index (BMI) [Ratio] 26.15 kg/m2 Jeffry Venczel DO Work Phone: [facility] 12-03-2024 06:01-0400 Body weight 73.48 kg Jeffry Rios DO Work Phone: [facility] 11-27-2024 08:18-0400 Body height 167.6 cm Solange Corcoran MD Work Phone: [facility] 11-27-2024 08:18-0400 Body mass index (BMI) [Ratio] 25.5 kg/m2 Solange Corcoran MD Work Phone: [facility] 11-27-2024 08:18-0400 Body weight 71.67 kg Solange Corcoran MD Work Phone: [facility] 11-23-2024 11:43-0400 Diastolic blood pressure 84 mm[Hg] Martinez Danielle MD Work Phone: [facility] 11-23-2024 11:43-0400 Heart rate 75 /min Martinez Danielle MD Work Phone: [facility] 11-23-2024 11:43-0400 Respiratory rate 17 /min Martinez Danielle MD Work Phone: [facility] 11-23-2024 11:43-0400 SaO2% (BldA) [Mass fraction] 100 % Martinez Danielle MD Work Phone: [facility] 11-23-2024 11:43-0400 Systolic blood pressure 111 mm[Hg] Martinez Danielle MD Work Phone: [facility] 11-23-2024 08:12-0400 Body height 167.6 cm Martinez Danielle MD Work Phone: [facility] 11-23-2024 08:12-0400 Body mass index (BMI) [Ratio] 25.34 kg/m2 Martinez Danielle MD Work Phone: [facility] 11-23-2024 08:12-0400 Body temperature 98.4 [degF] Martinez Danielle MD Work Phone: [facility] 11-23-2024 08:12-0400 Body weight 71.22 kg Martinez Danielle MD Work Phone: [facility] 11-14-2024 03:38-0400 Diastolic blood pressure 81 mm[Hg] Nixon Nesheim DO Work Phone: [facility] 11-14-2024 03:38-0400 Heart rate 97 /min Nixon Nesheim DO Work Phone: [facility] 11-14-2024 03:38-0400 Respiratory rate 14 /min Nixon Nesheim DO Work Phone: [facility] 11-14-2024 03:38-0400 SaO2% (BldA) [Mass fraction] 100 % Nixon Nesheim DO Work Phone: [facility] 11-14-2024 03:38-0400 Systolic blood pressure 134 mm[Hg] Nixon Nesheim DO Work Phone: [facility] 11-14-2024 03:00-0400 Body height 167.6 cm Nixon Nesheim DO Work Phone: [facility] 11-14-2024 03:00-0400 Body mass index (BMI) [Ratio] 25.82 kg/m2 Nixon Nesheim DO Work Phone: [facility] 11-14-2024 03:00-0400 Body temperature 98.1 [degF] Nixon Nesheim DO Work Phone: [facility] 11-14-2024 03:00-0400 Body weight 72.58 kg Nixon Nesheim DO Work Phone: [employer] [facility] 11-11-2024 13:56-0400 Body height 167.6 cm Solange Corcoran MD Work Phone: [facility] 11-11-2024 13:56-0400 Body mass index (BMI) [Ratio] 26.99 kg/m2 Solange Corcoran MD Work Phone: [facility] 11-11-2024 13:56-0400 Body weight 75.84 kg Solange Corcoran MD Work Phone: [facility] 11-11-2024 13:56-0400 Diastolic blood pressure 60 mm[Hg] Solange Corcoran MD Work Phone: [facility] 11-11-2024 13:56-0400 Heart rate 91 /min Solange Corcoran MD Work Phone: [facility] 11-11-2024 13:56-0400 SaO2% (BldA) [Mass fraction] 98 % Solange Corcoran MD Work Phone: [facility] 11-11-2024 13:56-0400 Systolic blood pressure 106 mm[Hg] Solange Corcoran MD Work Phone: [facility] 11-10-2024 14:06-0400 Body height 167.[address] Zachariah Rome DO Work Phone: [facility] 11-10-2024 14:06-0400 Body mass index (BMI) [Ratio] 27.1 kg/m2 Dr. Zachariah Rome DO Work Phone: [facility] 11-10-2024 14:06-0400 Body weight 76.[address] Zachariah Rome DO Work Phone: [facility] 11-10-2024 14:06-0400 Diastolic blood pressure 75 mm[Hg] Dr. Zachariah Rome DO Work Phone: [facility] 11-10-2024 14:06-0400 Systolic blood pressure 123 mm[Hg] Dr. Zachariah Rome DO Work Phone: [facility] 11-10-2024 11:53-0400 Body height 170.2 cm Teresa Ohara APRN - BUILD AND DEPLOYMENT ENGINEER Work Phone: [facility] 11-10-2024 11:53-0400 Body mass index (BMI) [Ratio] 26.16 kg/m2 Teresa Ohara DIAGNOSTIC IMAGING MANAGER - BUILD AND DEPLOYMENT ENGINEER Work Phone: [facility] 11-10-2024 11:53-0400 Body temperature 98.6 [degF] Teresa Justino DIAGNOSTIC IMAGING MANAGER - BUILD AND DEPLOYMENT ENGINEER Work Phone: [facility] 11-10-2024 11:53-0400 Body weight 75.75 kg Teresa Justino DIAGNOSTIC IMAGING MANAGER - BUILD AND DEPLOYMENT ENGINEER Work Phone: [facility] 11-10-2024 11:53-0400 Diastolic blood pressure 69 mm[Hg] Teresa Andersonsey DIAGNOSTIC IMAGING MANAGER - BUILD AND DEPLOYMENT ENGINEER Work Phone: [facility] 11-10-2024 11:53-0400 Heart rate 92 /min Teresa Justino DIAGNOSTIC IMAGING MANAGER - BUILD AND DEPLOYMENT ENGINEER Work Phone: [facility] 11-10-2024 11:53-0400 Systolic blood pressure 119 mm[Hg] Teresa Andersonsey DIAGNOSTIC IMAGING MANAGER - BUILD AND DEPLOYMENT ENGINEER Work Phone: [facility] 10-31-2024 02:05-0400 Diastolic blood pressure 89 mm[Hg] Jamal Almaguer MD Work Phone: [facility] 10-31-2024 02:05-0400 Heart rate 93 /min Jamal Almaguer MD Work Phone: [facility] 10-31-2024 02:05-0400 Respiratory rate 18 /min Jamal Almaguer MD Work Phone: [facility] 10-31-2024 02:05-0400 SaO2% (BldA) [Mass fraction] 97 % Jamal Almaguer MD Work Phone: [facility] 10-31-2024 02:05-0400 Systolic blood pressure 125 mm[Hg] Jamal Almaguer MD Work Phone: [facility] 10-30-2024 22:50-0400 Body height 170.2 cm Jamal Almaguer MD Work Phone: [facility] 10-30-2024 22:50-0400 Body mass index (BMI) [Ratio] 24.9 kg/m2 Jamal Almaguer MD Work Phone: [facility] 10-30-2024 22:50-0400 Body temperature 97.59 [degF] Jamal Almaguer MD Work Phone: [facility] 10-30-2024 22:50-0400 Body weight 72.12 kg Jamal Almaguer MD Work Phone: [facility] 10-29-2024 15:33-0400 Body temperature 96.91 [degF] Bernabe Perales MD Work Phone: [facility] 10-29-2024 15:33-0400 Diastolic blood pressure 72 mm[Hg] Bernabe Perales MD Work Phone: [facility] 10-29-2024 15:33-0400 Heart rate 93 /min Bernabe Perales MD Work Phone: [facility] 10-29-2024 15:33-0400 Respiratory rate 17 /min Bernabe Perales MD Work Phone: [facility] 10-29-2024 15:33-0400 SaO2% (BldA) [Mass fraction] 99 % Bernabe Perales MD Work Phone: [facility] 10-29-2024 15:33-0400 Systolic blood pressure 115 mm[Hg] Bernabe Perales MD Work Phone: [facility] 10-29-2024 10:50-0400 Body height 170.2 cm Bernabe Perales MD Work Phone: [facility] 10-29-2024 10:50-0400 Body mass index (BMI) [Ratio] 25.06 kg/m2 Bernabe Perales MD Work Phone: [facility] 10-29-2024 10:50-0400 Body weight 72.58 kg Bernabe Perales MD Work Phone: [facility] 10-27-2024 10:55-0400 Body height 167.[address] Zachariah Rome DO Work Phone: [facility] 10-27-2024 10:55-0400 Body mass index (BMI) [Ratio] 22.8 kg/m2 Dr. Zachariah Rome DO Work Phone: [facility] 10-27-2024 10:55-0400 Body weight 64.[address] Zachariah Rome DO Work Phone: [facility] 10-27-2024 10:55-0400 Diastolic blood pressure 76 mm[Hg] Dr. Zachariah Rome DO Work Phone: [facility] 10-27-2024 10:55-0400 Heart rate 95 /min Dr. Zachariah Rome DO Work Phone: [facility] 10-27-2024 10:55-0400 Respiratory rate 18 /min Dr. Zachariah Rome DO Work Phone: [facility] 10-27-2024 10:55-0400 SaO2% (BldA) [Mass fraction] 96 % Dr. Zachariah Rome DO Work Phone: [facility] 10-27-2024 10:55-0400 Systolic blood pressure 115 mm[Hg] Dr. Zachariah Rome DO Work Phone: [facility] 10-27-2024 03:14-0400 Heart rate 75 /min Kristen Beyya DO Work Phone: [facility] 10-27-2024 01:59-0400 Body height 167.6 cm Melaverne Beyya DO Work Phone: [facility] 10-27-2024 01:59-0400 Body mass index (BMI) [Ratio] 26.47 kg/m2 Melaverne Ade DO Work Phone: [facility] 10-27-2024 01:59-0400 Body weight 74.39 kg Melaverne Ade DO Work Phone: [facility] 10-27-2024 01:59-0400 Diastolic blood pressure 98 mm[Hg] Kristen Beyya DO Work Phone: [facility] 10-27-2024 01:59-0400 Respiratory rate 17 /min Mejgon Ade DO Work Phone: [facility] 10-27-2024 01:59-0400 SaO2% (BldA) [Mass fraction] 100 % Menataliagon Ade DO Work Phone: [facility] 10-27-2024 01:59-0400 Systolic blood pressure 153 mm[Hg] jgon Ade DO Work Phone: [facility] 10-26-2024 05:00-0400 Diastolic blood pressure 88 mm[Hg] Davinagon Ade DO Work Phone: [facility] 10-26-2024 05:00-0400 Heart rate 80 /min Robbien Ade DO Work Phone: [facility] 10-26-2024 05:00-0400 Systolic blood pressure 120 mm[Hg] Davinagon Ade DO Work Phone: [facility] 10-26-2024 02:59-0400 Body temperature 98.1 [degF] Robbien Ade DO Work Phone: [facility] 10-23-2024 07:39-0400 Body height 167.6 cm Teresa Ohara APRN - BUILD AND DEPLOYMENT ENGINEER Work Phone: [facility] 10-23-2024 07:39-0400 Body mass index (BMI) [Ratio] 26.47 kg/m2 Teresa Justino DIAGNOSTIC IMAGING MANAGER - BUILD AND DEPLOYMENT ENGINEER Work Phone: [facility] 10-23-2024 07:39-0400 Body temperature 98.1 [degF] Teresa Justino DIAGNOSTIC IMAGING MANAGER - BUILD AND DEPLOYMENT ENGINEER Work Phone: [facility] 10-23-2024 07:39-0400 Body weight 74.39 kg Teresa Andersonsey DIAGNOSTIC IMAGING MANAGER - BUILD AND DEPLOYMENT ENGINEER Work Phone: [facility] 10-23-2024 07:39-0400 Diastolic blood pressure 79 mm[Hg] Teresa Justino LINDERN - BUILD AND DEPLOYMENT ENGINEER Work Phone: [facility] 10-23-2024 07:39-0400 Heart rate 116 /min Teresa Andersonsey DIAGNOSTIC IMAGING MANAGER - BUILD AND DEPLOYMENT ENGINEER Work Phone: [facility] 10-23-2024 07:39-0400 Systolic blood pressure 120 mm[Hg] Teresa Andersonsey DIAGNOSTIC IMAGING MANAGER - BUILD AND DEPLOYMENT ENGINEER Work Phone: [facility] 10-15-2024 07:47-0400 Body height 167.[address] Zachariah Rome DO Work Phone: [facility] 10-15-2024 07:47-0400 Body mass index (BMI) [Ratio] 27.1 kg/m2 Dr. Zachariah Rome DO Work Phone: [facility] 10-15-2024 07:47-0400 Body weight 76.[address] Zachariah Rome DO Work Phone: [facility] 10-15-2024 07:47-0400 Diastolic blood pressure 76 mm[Hg] Dr. Zachariah Rome DO Work Phone: [facility] 10-15-2024 07:47-0400 Heart rate 93 /min Dr. Zachariah Rome DO Work Phone: [facility] 10-15-2024 07:47-0400 Respiratory rate 18 /min Dr. Zachariah Rome DO Work Phone: [facility] 10-15-2024 07:47-0400 SaO2% (BldA) [Mass fraction] 97 % Dr. Zachariah Rome DO Work Phone: [facility] 10-15-2024 07:47-0400 Systolic blood pressure 111 mm[Hg] Dr. Zachariah Rome DO Work Phone: [facility] 10-07-2024 17:44-0400 Body temperature 98.8 [degF] Jung Dickens MD Work Phone: [facility] 10-07-2024 17:44-0400 Diastolic blood pressure 76 mm[Hg] Jung Dickens MD Work Phone: [facility] 10-07-2024 17:44-0400 Heart rate 92 /min Jung Dickens MD Work Phone: [employer] [facility] 10-07-2024 17:44-0400 Respiratory rate 19 /min Jung Dickens MD Work Phone: [employer] [facility] 10-07-2024 17:44-0400 SaO2% (BldA) [Mass fraction] 99 % Jung Dickens MD Work Phone: [employer] [facility] 10-07-2024 17:44-0400 Systolic blood pressure 122 mm[Hg] Jung Dickens MD Work Phone: [employer] [facility] 10-05-2024 21:30-0400 Body temperature 98.1 [degF] Shani Kate MD Work Phone: [employer] [facility] 10-05-2024 21:29-0400 Diastolic blood pressure 95 mm[Hg] Shani Kate MD Work Phone: [employer] [facility] 10-05-2024 21:29-0400 Heart rate 104 /min Shani Kate MD Work Phone: [facility] 10-05-2024 21:29-0400 Respiratory rate 20 /min Shani Kate MD Work Phone: [employer] [facility] 10-05-2024 21:29-0400 SaO2% (BldA) [Mass fraction] 100 % Shani Kate MD Work Phone: [facility] 10-05-2024 21:29-0400 Systolic blood pressure 147 mm[Hg] Shani Kate MD Work Phone: [facility] 10-05-2024 21:25-0400 Body height 170.2 cm Shani Kate MD Work Phone: [facility] 10-05-2024 21:25-0400 Body mass index (BMI) [Ratio] 25.84 kg/m2 Shani Ktae MD Work Phone: [employer] [facility] 10-05-2024 21:25-0400 Body weight 74.84 kg Shani Kate MD Work Phone: [facility] 10-05-2024 18:21-0400 Diastolic blood pressure 76 mm[Hg] Liang Combs MD Work Phone: [facility] 10-05-2024 18:21-0400 Heart rate 84 /min Liang Combs MD Work Phone: [facility] 10-05-2024 18:21-0400 Respiratory rate 18 /min Liang Combs MD Work Phone: [facility] 10-05-2024 18:21-0400 SaO2% (BldA) [Mass fraction] 100 % Liang Combs MD Work Phone: [facility] 10-05-2024 18:21-0400 Systolic blood pressure 119 mm[Hg] Liang Combs MD Work Phone: [facility] 10-05-2024 14:11-0400 Body height 167.6 cm Liang Combs MD Work Phone: [facility] 10-05-2024 14:11-0400 Body mass index (BMI) [Ratio] 26.63 kg/m2 Liang Combs MD Work Phone: [facility] 10-05-2024 14:11-0400 Body weight 74.84 kg Liang Combs MD Work Phone: [facility] 10-05-2024 14:07-0400 Body temperature 97.7 [degF] Liang Combs MD Work Phone: [facility] 09-24-2024 09:26-0400 Body height 170.2 cm Tariq Singleton DIAGNOSTIC IMAGING MANAGER.BUILD AND DEPLOYMENT ENGINEER Work Phone: [facility] 09-24-2024 09:26-0400 Body mass index (BMI) [Ratio] 26.16 kg/m2 Tariq Hritz DIAGNOSTIC IMAGING MANAGER.BUILD AND DEPLOYMENT ENGINEER Work Phone: [facility] 09-24-2024 09:26-0400 Body weight 75.75 kg Tariq Elizondoitz DIAGNOSTIC IMAGING MANAGER.BUILD AND DEPLOYMENT ENGINEER Work Phone: [facility] 09-24-2024 09:26-0400 Diastolic blood pressure 62 mm[Hg] Tariq Hritz DIAGNOSTIC IMAGING MANAGER.BUILD AND DEPLOYMENT ENGINEER Work Phone: [facility] 09-24-2024 09:26-0400 Heart rate 91 /min Tariq Hritz DIAGNOSTIC IMAGING MANAGER.BUILD AND DEPLOYMENT ENGINEER Work Phone: [facility] 09-24-2024 09:26-0400 SaO2% (BldA) [Mass fraction] 98 % Tariq Hritz DIAGNOSTIC IMAGING MANAGER.BUILD AND DEPLOYMENT ENGINEER Work Phone: [facility] 09-24-2024 09:26-0400 Systolic blood pressure 114 mm[Hg] Tariq Hritz DIAGNOSTIC IMAGING MANAGER.BUILD AND DEPLOYMENT ENGINEER Work Phone: [facility] 09-17-2024 08:30-0400 Body temperature 97.3 [degF] Dr. Zachariah Rome DO Work Phone: [facility] 09-17-2024 08:30-0400 Diastolic blood pressure 77 mm[Hg] Dr. Zachariah Rome DO Work Phone: [facility] 09-17-2024 08:30-0400 Heart rate 90 /min Dr. Zachariah Rome DO Work Phone: [facility] 09-17-2024 08:30-0400 Respiratory rate 17 /min Dr. Zachariah Rome DO Work Phone: [facility] 09-17-2024 08:30-0400 Systolic blood pressure 122 mm[Hg] Dr. Zachariah Rome DO Work Phone: [facility] 08-19-2024 13:11-0400 Body temperature 97.3 [degF] Dr. Zachariah Rome DO Work Phone: [facility] 08-19-2024 13:11-0400 Diastolic blood pressure 57 mm[Hg] Dr. Zachariah Rome DO Work Phone: [facility] 08-19-2024 13:11-0400 Heart rate 70 /min Dr. Zachariah Rome DO Work Phone: [facility] 08-19-2024 13:11-0400 Respiratory rate 16 /min Dr. Zachariah Rome DO Work Phone: [facility] 08-19-2024 13:11-0400 SaO2% (BldA) [Mass fraction] 99 % Dr. Zachariah Rome DO Work Phone: [facility] 08-19-2024 13:11-0400 Systolic blood pressure 107 mm[Hg] Dr. Zachariah Rome DO Work Phone: [facility] 08-19-2024 10:41-0400 Body height 167.[address] Zachariah Rome DO Work Phone: [facility] 08-19-2024 10:41-0400 Body mass index (BMI) [Ratio] 27 kg/m2 Dr. Zachariah Rome DO Work Phone: [facility] 08-19-2024 10:41-0400 Body weight [address] Zachariah Rome DO Work Phone: [facility] 08-05-2024 08:23-0400 Body height 167.[address] Zachariah Rome DO Work Phone: [facility] 08-05-2024 08:23-0400 Body mass index (BMI) [Ratio] 27.1 kg/m2 Dr. Zachariah Rome DO Work Phone: [facility] 08-05-2024 08:23-0400 Body temperature 97.5 [degF] Dr. Zachariah Rome DO Work Phone: [facility] 08-05-2024 08:23-0400 Body weight 76.[address] Zachariah Rome DO Work Phone: [facility] 08-05-2024 08:23-0400 Diastolic blood pressure 67 mm[Hg] Dr. Zachariah Rome DO Work Phone: [facility] 08-05-2024 08:23-0400 Heart rate 85 /min Dr. Zachariah Rome DO Work Phone: [facility] 08-05-2024 08:23-0400 Respiratory rate 18 /min Dr. Zachariah Rome DO Work Phone: [facility] 08-05-2024 08:23-0400 SaO2% (BldA) [Mass fraction] 96 % Dr. Zachariah Rome DO Work Phone: [facility] 08-05-2024 08:23-0400 Systolic blood pressure 101 mm[Hg] Dr. Zachariah Rome DO Work Phone: [facility] 04-17-2024 09:03-0400 Body height 167.6 cm Boston Cortez MD Work Phone: [facility] 04-17-2024 09:03-0400 Body mass index (BMI) [Ratio] 27.12 kg/m2 Boston Cortez MD Work Phone: [facility] 04-17-2024 09:03-0400 Body weight 76.2 kg Boston Cortez MD Work Phone: [facility] 04-17-2024 09:03-0400 Diastolic blood pressure 68 mm[Hg] Boston Cortez MD Work Phone: [facility] 04-17-2024 09:03-0400 Systolic blood pressure 110 mm[Hg] Boston Cortez MD Work Phone: [facility] 05-09-2023 10:17-0400 Body height 167.[address] Zachariah Rome Work Phone: [facility] 05-09-2023 10:17-0400 Body mass index (BMI) [Ratio] 29.7 kg/m2 Dr. Zachariah Rome Work Phone: [facility] 05-09-2023 10:17-0400 Body weight 83.[address] Zachariah Rome Work Phone: [facility] 05-09-2023 10:17-0400 Diastolic blood pressure 67 mm[Hg] Dr. Zachariah Rome Work Phone: [facility] 05-09-2023 10:17-0400 Systolic blood pressure 104 mm[Hg] Dr. Zachariah Rome Work Phone: [facility] 04-09-2023 09:44-0500 Body mass index (BMI) [Ratio] 27.9 kg/m2 Dr. Zachariah Rome Work Phone: [facility] 04-09-2023 09:44-0500 Body weight 78.[address] Zachariah Rome Work Phone: 6(164)303-[address] [place] [address] 04-09-2023 09:44-0500 Diastolic blood pressure 64 mm[Hg] Dr. Zachariah Rome Work Phone: 5(305)901-257049 [place] [address] 04-09-2023 09:44-0500 Systolic blood pressure 110 mm[Hg] Dr. Zachariah Rome Work Phone: 9(637)090-037[address] [place] [address] 03-16-2023 09:37-0500 Body mass index (BMI) [Ratio] 27 kg/m2 Dr. Zachariah Rome Work Phone: 2(193)405-964949 [place] [address] 03-16-2023 09:37-0500 Body weight 75.[address] Zachariah Rome Work Phone: [facility] 03-16-2023 09:37-0500 Diastolic blood pressure 71 mm[Hg] Dr. Zachariah Rome Work Phone: [facility] 03-16-2023 09:37-0500 Systolic blood pressure 108 mm[Hg] Dr. Zachariah Rome Work Phone: 3(454)826-464749 [place] [address] 02-14-2023 08:44-0500 Body height 167.[address] Zachariah Rome Work Phone: 1(018)940-197149 [place] [address] 02-14-2023 08:44-0500 Body mass index (BMI) [Ratio] 26.8 kg/m2 Dr. Zachariah Rome Work Phone: [facility] 02-14-2023 08:44-0500 Body weight 75.[address] Zachariah Rome Work Phone: [facility] 02-14-2023 08:44-0500 Diastolic blood pressure 73 mm[Hg] Dr. Zachariah Rome Work Phone: [facility] 02-14-2023 08:44-0500 Systolic blood pressure 108 mm[Hg] Dr. Zachariah Rome Work Phone: [facility] 02-13-2023 09:37-0500 Diastolic blood pressure 70 mm[Hg] Solange Corcoran MD Work Phone: [facility] 02-13-2023 09:37-0500 Heart rate 110 /min Solange Corcoran MD Work Phone: [facility] 02-13-2023 09:37-0500 Systolic blood pressure 104 mm[Hg] Solange Corcoran MD Work Phone: [facility] 02-13-2023 09:31-0500 Body height 167.6 cm Solange Corcoran MD Work Phone: [facility] [facility] 02-13-2023 09:31-0500 Body mass index (BMI) [Ratio] 27.21 kg/m2 Solange Corcoran MD Work Phone: [facility] 02-13-2023 09:31-0500 Body weight 76.48 kg Solange Corcoran MD Work Phone: [facility] 02-13-2023 09:31-0500 SaO2% (BldA) [Mass fraction] 98 % Solange Corcoran MD Work Phone: [employer] [facility] 11-21-2022 14:49-0400 Body mass index (BMI) [Ratio] 26.63 kg/m2 Claire Lewis DO Work Phone: [facility] 11-21-2022 14:49-0400 Body weight 74.84 kg Claire Lewis DO Work Phone: [facility] 11-21-2022 14:49-0400 Diastolic blood pressure 77 mm[Hg] Claire Synes DO Work Phone: [facility] 11-21-2022 14:49-0400 Heart rate 90 /min Claire Lewis DO Work Phone: [facility] 11-21-2022 14:49-0400 Systolic blood pressure 120 mm[Hg] Claire Lewis DO Work Phone: [facility] 11-20-2022 15:47-0400 Body mass index (BMI) [Ratio] 26.9 kg/m2 Dr. Zachariah Rome Work Phone: [facility] 11-20-2022 15:47-0400 Body weight 75.[address] Zachariah Rome Work Phone: [facility] 11-20-2022 15:47-0400 Diastolic blood pressure 86 mm[Hg] Dr. Zachariah Rome Work Phone: [facility] 11-20-2022 15:47-0400 Systolic blood pressure 124 mm[Hg] Dr. Zachariah Rome Work Phone: [facility] 09-08-2022 11:21-0400 Body height 167.6 cm Anabella Hurtado DO Work Phone: [facility] 09-08-2022 11:21-0400 Body mass index (BMI) [Ratio] 25.18 kg/m2 Anabella Hurtado DO Work Phone: [facility] 09-08-2022 11:21-0400 Body weight 70.76 kg Anabella Hurtado DO Work Phone: [facility] 09-08-2022 11:21-0400 Diastolic blood pressure 72 mm[Hg] Anabella Hurtado DO Work Phone: [facility] 09-08-2022 11:21-0400 Heart rate 72 /min Anabella Hurtado DO Work Phone: [facility] 09-08-2022 11:21-0400 SaO2% (BldA) [Mass fraction] 98 % Anabella Hurtado DO Work Phone: [facility] 09-08-2022 11:21-0400 Systolic blood pressure 115 mm[Hg] Anabella Hurtado DO Work Phone: [facility] 08-15-2022 09:43-0400 Body height 167.6 cm Cathy Johnathan DO Work Phone: [facility] 08-15-2022 09:43-0400 Body mass index (BMI) [Ratio] 26.28 kg/m2 Cathy Johnathan DO Work Phone: [facility] 08-15-2022 09:43-0400 Body temperature 98.8 [degF] Cathy Johnathan DO Work Phone: [facility] 08-15-2022 09:43-0400 Body weight 73.85 kg Cathy Johnathan DO Work Phone: [facility] 08-15-2022 09:43-0400 Diastolic blood pressure 78 mm[Hg] Cathy Johnathan DO Work Phone: [facility] 08-15-2022 09:43-0400 Heart rate 102 /min Cathy Johnathan DO Work Phone: [facility] 08-15-2022 09:43-0400 SaO2% (BldA) [Mass fraction] 97 % Cathy Johnathan DO Work Phone: [facility] 08-15-2022 09:43-0400 Systolic blood pressure 160 mm[Hg] Cathy Johnathan DO Work Phone: [facility] 08-02-2022 10:26-0400 Body height 167.6 cm Cathy Johnathan DO Work Phone: [facility] 08-02-2022 10:26-0400 Body mass index (BMI) [Ratio] 26.84 kg/m2 Cathy Johnathan DO Work Phone: [facility] 08-02-2022 10:26-0400 Body temperature 98.71 [degF] Cathy Johnathan DO Work Phone: [facility] 08-02-2022 10:26-0400 Body weight 75.43 kg Cathy Johnathan DO Work Phone: [facility] 08-02-2022 10:26-0400 Diastolic blood pressure 73 mm[Hg] Cathy Johnathan DO Work Phone: [facility] 08-02-2022 10:26-0400 Heart rate 84 /min Cathy Johnathan DO Work Phone: [facility] 08-02-2022 10:26-0400 SaO2% (BldA) [Mass fraction] 100 % Cathy Johnathan DO Work Phone: [facility] 08-02-2022 10:26-0400 Systolic blood pressure 105 mm[Hg] Cathy Johnathan DO Work Phone: [facility] 07-04-2022 13:31-0400 Diastolic blood pressure 80 mm[Hg] Solange Corcoran MD Work Phone: [facility] 07-04-2022 13:31-0400 Heart rate 102 /min Solange Corcoran MD Work Phone: [facility] 07-04-2022 13:31-0400 Systolic blood pressure 130 mm[Hg] Solange Corcoran MD Work Phone: [facility] 07-04-2022 13:20-0400 Body height 167.6 cm Solange Corcoran MD Work Phone: [facility] 07-04-2022 13:20-0400 Body mass index (BMI) [Ratio] 26.63 kg/m2 Solange Corcoran MD Work Phone: [facility] 07-04-2022 13:20-0400 Body weight 74.84 kg Solange Corcoran MD Work Phone: [facility] 07-04-2022 13:20-0400 SaO2% (BldA) [Mass fraction] 96 % Solange Corcoran MD Work Phone: [employer] [facility] 04-21-2022 08:19-0400 Body height 167.6 cm Valeria Maya MD Work Phone: [employer] [facility] 04-21-2022 08:19-0400 Body mass index (BMI) [Ratio] 25.82 kg/m2 Valeria Maya MD Work Phone: [employer] [facility] 04-21-2022 08:19-0400 Body weight 72.58 kg Valeria Maya MD Work Phone: [employer] [facility] 04-21-2022 08:19-0400 Diastolic blood pressure 74 mm[Hg] Valeria Maya MD Work Phone: [employer] [facility] 04-21-2022 08:19-0400 Heart rate 90 /min Valeria Maya MD Work Phone: [employer] [facility] 04-21-2022 08:19-0400 Systolic blood pressure 113 mm[Hg] Valeria Maya MD Work Phone: [employer] [facility] 04-20-2022 09:39-0400 Diastolic blood pressure 84 mm[Hg] Bhargavi Price MD Work Phone: [employer] [facility] Comment on above: dizzy 04-20-2022 09:39-0400 Heart rate 104 /min Bhargavi Price MD Work Phone: [employer] [facility] 04-20-2022 09:39-0400 SaO2% (BldA) [Mass fraction] 98 % Bhargavi Price MD Work Phone: [employer] [facility] 04-20-2022 09:39-0400 Systolic blood pressure 114 mm[Hg] Bhargavi Price MD Work Phone: [employer] [facility] Comment on above: dizzy 04-20-2022 09:36-0400 Body height 167.6 cm Bhargavi Price MD Work Phone: [employer] [facility] 04-20-2022 09:36-0400 Body mass index (BMI) [Ratio] 25.76 kg/m2 Bhargavi Price MD Work Phone: [facility] 04-20-2022 09:36-0400 Body weight 72.39 kg Bhargavi Price MD Work Phone: [facility] 04-17-2022 11:35-0400 Body height 167.6 cm Brittany Sanchez MD Work Phone: [facility] 04-17-2022 11:35-0400 Body mass index (BMI) [Ratio] 25.82 kg/m2 Brittany Sanchez MD Work Phone: [facility] 04-17-2022 11:35-0400 Body weight 72.58 kg Brittany Sanchez MD Work Phone: [facility] 04-17-2022 11:35-0400 Diastolic blood pressure 79 mm[Hg] Brittany Sanchez MD Work Phone: [facility] 04-17-2022 11:35-0400 Heart rate 109 /min Brittany Sanchez MD Work Phone: [facility] 04-17-2022 11:35-0400 Systolic blood pressure 137 mm[Hg] Brittany Sanchez MD Work Phone: [facility] 09-17-2020 08:41-0400 Body temperature 97.11 [degF] Valeria Maya MD Work Phone: [facility] Work Phone: 09-17-2020 08:41-0400 Diastolic blood pressure 78 mm[Hg] Valeria Maya MD Work Phone: [facility] Work Phone: 09-17-2020 08:41-0400 Heart rate 90 /min Valeria Maya MD Work Phone: [facility] Work Phone: 09-17-2020 08:41-0400 Respiratory rate 16 /min Valeria Maya MD Work Phone: [facility] Work Phone: 09-17-2020 08:41-0400 SaO2% (BldA) [Mass fraction] 96 % Valeria Maya MD Work Phone: [employer] Work Phone: 09-17-2020 08:41-0400 Systolic blood pressure 132 mm[Hg] Valeria Maya MD Work Phone: [employer] Work Phone: 09-14-2020 12:30-0400 Body height 170.2 cm Valeria Maya MD Work Phone: [employer] Work Phone: 09-14-2020 12:30-0400 Body mass index (BMI) [Ratio] 34.46 kg/m2 Valeria Maya MD Work Phone: [employer] Work Phone: 09-14-2020 12:30-0400 Body weight 99.79 kg Valeria Maya MD Work Phone: [employer] Work Phone: 05-10-2019 14:01-0400 Body Temperature 98.71 [degF] Leonides [employer] [employer], [place] 05-10-2019 13:22-0400 BP Diastolic 75 mm[Hg] [facility] [place] 05-10-2019 13:22-0400 BP Systolic 131 mm[Hg] [facility] [place] 05-10-2019 13:22-0400 Pulse (Heart Rate) 87 /min [facility] [place] 05-10-2019 13:22-0400 Pulse Oximetry 100 % [facility] [place] 05-10-2019 13:22-0400 Respiratory Rate 19 /min [facility] [employer], [place] Encounters Encounter Date Encounter Type Care Provider Facility Start: 12-17-2024 End: 12-17-2024 ambulatory Zachariah Rome Facility:[facility] Start: 12-16-2024 End: 12-16-2024 Office outpatient visit 25 minutes Claire Lewis DO Work Phone: [facility] Urogynecology Comment on above: Interstitial cystiti s (Primary Dx); Pelvic pain; Feeling of incomplete bladder emptying Start: 12-15-2024 End: 12-15-2024 ambulatory Jarrett Hunter RN [facility] Clinical Communication Start: 12-15-2024 End: 12-15-2024 Patient encounter procedure Jarrett Hunter RN [facility] Clinical Communication Start: 12-12-2024 End: 12-12-2024 Office outpatient visit 25 minutes Boston Cortez MD Work Phone: [facility] Neurology [facility] Comment on above: Neuropathy (Primary Dx); Myofascial pain Start: 12-12-2024 End: 12-12-2024 ambulatory ZACHARIAH ROME [facility] Start: 12-08-2024 End: 12-08-2024 ambulatory MARIE MATHIS Facility:[facility] Start: 12-08-2024 End: 12-08-2024 Emergency department patient visit Jamal Almaguer MD Work Phone: [facility] Comment on above: Chronic abdominal pa in (Primary Dx); Epigastric pain; Anorexia; Nausea; Dehydration; Diarrhea, unspecified type; Hx of gastroesophageal reflux (GERD); History of IBS Start: 12-07-2024 End: 12-07-2024 Emergency department patient visit Teetee Aleman DO Work Phone: [facility] Comment on above: Gastroesophageal ref lux disease without esophagitis (Primary Dx) Start: 12-04-2024 End: 12-04-2024 Emergency department patient visit ZACHARIAHABIGAIL ORME Facility:[facility] Start: 12-03-2024 End: 12-03-2024 ambulatory LAWRENCE HOFFMANN [facility] Start: 12-03-2024 End: 12-03-2024 Evaluation and management of inpatient Jeffry Rios DO Work Phone: [facility] Clinical Decision Unit CDU Comment on above: Dysautonomia orthost atic hypotension syndrome (Primary Dx) Start: 11-27-2024 End: 11-27-2024 Subsequent hospital visit by physician Solange Corcoran MD Work Phone: [facility] [address] [facility] Comment on above: Dysautonomia orthost atic hypotension syndrome Start: 11-27-2024 End: 11-27-[address] [facility] Start: 11-23-2024 End: 11-23-2024 Emergency department patient visit Martinez Danielle MD Work Phone: [facility] Comment on above: Epigastric pain (Rosalind adelia Dx) Start: 11-18-2024 Encounter for other specified special examinations ELIZABET ONEILL [facility] Start: 11-18-2024 ambulatory DARIUSJANICEGEORGIE Guerrero BERYL Fac ility:[facility] Start: 11-14-2024 End: 11-14-2024 ambulatory NIXON Hali PETE [facility] Start: 11-14-2024 End: 11-14-2024 Subsequent hospital visit by physician Bulmaro Cerda [facility] Stress Start: 11-14-2024 End: 11-14-2024 Emergency department patient visit Nixon Freeman DO Work Phone: [facility] Comment on above: Palpitations (Primar y Dx); Suprapubic pain Start: 11-12-2024 End: 11-12-2024 ambulatory ZACHARIAH ROME [facility] Start: 11-12-2024 End: 11-12-2024 ambulatory TARIQ SINGLETON Facility:[facility] Start: 11-11-2024 End: 11-11-2024 Office outpatient visit 25 minutes Solange Corcoran MD Work Phone: [facility] Cardiology [facility] Comment on above: Dysautonomia orthost atic hypotension syndrome (Primary Dx); Tachycardia; Palpitations; Dizziness Start: 11-11-2024 End: 11-11-2024 ambulatory SOLANGE PEPPERELLZACARIAS [facility] Start: 11-10-[address] [facility] Start: 11-10-2024 End: 11-12-2024 Telephone encounter Solange Corcoran MD Work Phone: [facility] Cardiology - [place] Start: 11-10-2024 End: 11-10-[address] Pretty Matos DO -[facility] Work Phone: Start: 11-10-2024 End: 11-10-[address] Zachariah Rome DO Work Phone: -[facility] Start: 11-10-2024 End: 11-10-2024 Office outpatient visit 15 minutes Teresa Ohara APRN - BUILD AND [employer]OYMENT ENGINEER Work Phone: [facility] Neurology [facility] Comment on above: Dizziness (Primary D x) Start: 11-10-2024 End: 11-10-2024 ambulatory TERESA JUSTINO [facility] Start: 11-10-2024 End: 11-10-2024 ambulatory Pretty Matos Facility:[facility] Start: 11-07-2024 End: 11-07-2024 ambulatory ZACHARIAH ROME [facility] Start: 11-06-[address] Pretty Matos DO -Ultrasound [facility] Work Phone: Start: 11-05-2024 End: 11-05-2024 Subsequent hospital visit by physician Zachariah Rome DO Work Phone: [facility] Comment on above: Anterior neck pain Start: 11-05-2024 End: 11-06-2024 ambulatory ZACHARIAH ROME [facility] Start: 11-03-2024 End: 11-03-2024 Subsequent hospital visit by physician Teresa Ohara APRN - [employer]MENT ENGINEER [facility] Comment on above: Muscle spasm Start: 11-03-2024 End: 11-03-2024 ambulatory [facility] Start: 10-31-2024 Registered Referred Connie AndradeC -Cardiovascular Services Work Phone: Start: 10-31-2024 ambulatory Zachariah Rome Facility:[facility] Start: 10-30-2024 End: 10-31-2024 Emergency department patient visit Jamal Almaguer MD Work Phone: [facility] ED Comment on above: Palpitations (Primar y Dx); Anxiety; Paresthesia; Pre-syncope Start: 10-30-2024 End: 11-19-2024 Telephone encounter Teresa Andrade CNP Work Phone: [facility] Clinical Communication Comment on above: Appointment Start: 10-29-2024 End: 10-30-2024 ambulatory Radha Kothari RN [facility] Clinical Communication Start: 10-29-2024 End: 10-30-2024 Patient encounter procedure Radha Kothari RN [facility] Clinical Communication Start: 10-28-2024 End: 10-29-2024 ambulatory LAWRENCE [facility] Start: 10-28-2024 End: 10-29-2024 Evaluation and management of inpatient Bernabe Perales MD Work Phone: [facility] Clinical Decision Unit CDU Comment on above: Chest pain, unspecif ied type (Primary Dx); Tachycardia; Palpitations Start: 10-27-2024 End: 10-27-2024 Patient encounter procedure Connie VILLA -[employer] [facility] Work Phone: Start: 10-27-2024 End: 10-27-[address] Zachariah Rome DO Work Phone: -[employer] [facility] Start: 10-27-2024 End: 10-27-2024 Emergency department patient visit Kristen Booker DO Work Phone: [facility] Comment on above: Palpitations (Primar y Dx) Start: 10-26-2024 End: 10-26-2024 ambulatory Inga Aguilar RN [facility] Clinical Communication Start: 10-26-2024 End: 10-26-2024 Patient encounter procedure Inga Aguilar RN [facility] Clinical Communication Start: 10-26-2024 End: 10-26-2024 Emergency department patient visit Kristen Booker DO Work Phone: [facility] Comment on above: Chest pain, unspecif ied type (Primary Dx) Start: 10-23-2024 End: 10-23-2024 Telephone encounter Teresa Andrade CNP Work Phone: [facility] Central Scheduling Start: 10-23-2024 End: 10-23-2024 ambulatory ZACHARIAH ROME [facility] Start: 10-23-2024 End: 10-23-2024 Office outpatient visit 25 minutes Teresa Justino LAMAR - BUILD AND [employer]PLOYMENT ENGINEER Work Phone: [facility] Neurology [facility] Comment on above: Migraine without aur a and without status migrainosus, not intractable (Primary Dx); Chronic daily headache; Muscle spasm; Dizziness Start: 10-21-2024 End: 10-21-2024 Follow-up encounter Teresa Mike Work Phone: [facility] Comment on above: Cervicalgia (Primary Dx) Start: 10-21-2024 End: 10-21-2024 ambulatory TERESA MIKE [facility] Start: 10-20-2024 End: 10-20-[address] Lawrence Del Toro MD -[facility] Work Phone: Start: 10-20-2024 End: 10-20-[address] Zachariah Rome DO Work Phone: -[facility] Start: 10-18-2024 End: 10-18-2024 ambulatory Teresa Mckeon Work Phone: [facility] Comment on above: Cervicalgia; Strain of other muscles, fascia and tendons at shoulder and upper arm level, unspecified arm, initial encounter Start: 10-17-2024 End: 10-17-2024 ambulatory PRETI VICTORINA [facility] Start: 10-16-2024 End: 10-16-2024 ambulatory [facility] [place] Comment on above: Xray Start: 10-15-2024 End: 10-15-2024 Patient encounter procedure Vincent MORLEY -[facility] Work Phone: Start: 10-15-2024 End: 10-15-[address] Zachariah Rome DO Work Phone: -[facility] Start: 10-09-2024 End: 10-11-2024 ambulatory ZACHARIAH Cesar ROME Facility:[facility] Start: 10-08-2024 End: 10-08-2024 Emergency department patient visit ILEANA SUENOREEN Facility:[facility] Start: 10-08-2024 End: 10-08-[address] RN [facility] Clinical Communication Start: 10-08-2024 End: 10-08-2024 Patient encounter procedure Sandy [address] RN [facility] Clinical Communication Start: 10-07-2024 End: 10-07-2024 Emergency department patient visit Jung Dickens MD Work Phone: [facility] Comment on above: Tremulousness (Prima ry Dx); Malaise Start: 10-07-2024 End: 10-16-2024 Telephone encounter Mony Hayes MD Work Phone: [facility] Clinical Communication Comment on above: Appointment Request Start: 10-06-2024 End: 10-06-2024 ambulatory Meliza Reyna RN [facility] Clinical Communication Start: 10-06-2024 End: 10-06-2024 Patient encounter procedure Meliza Reyna RN [facility] Clinical Communication Start: 10-05-2024 End: 10-05-2024 Emergency department patient visit Shani Kate MD Work Phone: [facility] Comment on above: Dizziness (Primary D x); Seroma of breast Start: 10-05-2024 End: 10-05-2024 Emergency department patient visit Liang Combs MD Work Phone: [facility] Comment on above: Tachycardia (Primary Dx); Near syncope Start: 10-01-2024 End: 10-01-2024 ambulatory ZACHARIAH ROME [facility] Start: 09-24-2024 End: 09-24-2024 Office outpatient new 30 minutes Tariq Singleton APRN.CNP Work Phone: [facility] Comment on above: LLQ pain (Primary Dx ); Bloating; Belching Start: 09-24-2024 End: 09-24-2024 ambulatory TARIQ SINGLETON Facility:[facility] Start: 09-17-2024 End: 09-17-[address] Lawrence Del Toro MD -[facility] Work Phone: Start: 09-17-2024 End: 09-17-[address] Zachariah Rome DO Work Phone: -[facility] Start: 09-16-2024 End: 09-16-[address] Zachariah Rome DO Work Phone: [facility] Start: 09-16-2024 End: 09-16-2024 Patient encounter procedure Nancy Moss PA-C -[facility] Work Phone: Start: 09-16-2024 End: 09-16-2024 ambulatory Nancy MORLEY Facility:[facility] Start: 09-12-2024 End: 09-12-2024 ambulatory IZABELLA Cesar PABLO Facility:[id number] Start: 09-12-2024 End: 09-12-2024 Subsequent hospital visit by physician Mri Sujatha Gupta [facility] MRI Scan Comment on above: Hyperprolactinemia ( HCC) [E22.1] Start: 09-01-2024 End: 09-01-2024 ambulatory NATHALIE Cesra [facility] Start: 08-27-2024 End: 08-27-[address] Lawrence Del Toro MD -[facility] Work Phone: Start: 08-27-2024 End: 08-27-[address] Zachariah Rome DO Work Phone: -[facility] Start: 08-26-2024 ambulatory LAWRENCE ROME [facility] Start: 08-26-2024 End: 08-26-2024 Subsequent hospital visit by physician Mri [facility] (1.5t) Radiology Comment on above: Hyperprolactinemia ( HCC) [E22.1] Start: 08-25-2024 Encounter for other preprocedural examination Lawrence Del Toro [facility] Start: 08-19-2024 ambulatory Lawrence Del Toro Facility :[facility] Start: 08-19-2024 Non-patient / Non-visit Dr. Zoë ROSA -[facility] Start: 08-19-2024 End: 08-19-2024 Admission to same day surgery center Dr. Lawrence Del Toro MD [facility] Start: 08-19-2024 End: 08-19-[address] Zachariah Rome DO Work Phone: [facility] Start: 08-05-2024 End: 08-05-[address] Lawrence Del Toro MD -[facility] Work Phone: Start: 08-05-2024 End: 08-05-[address] Zachariah Rome DO Work Phone: [facility] Start: 06-04-2024 End: 09-03-2024 Transcribe Orders Sherif Shah APRN - BUILD AND [employer]PLOYMENT ENGINEER Work Phone: [employer] Central [facility]uling Comment on above: Hyperprolactinemia ( HCC) (Primary Dx) Start: 05-30-2024 End: 08-29-2024 Transcribe Orders Sherif Shah APRN - BUILD AND DEPLOYMENT ENGINEER Work Phone: [employer] Central Scheduling Start: 05-22-2024 End: 05-22-2024 ambulatory DANYA PUGH Facility:[facility] Start: 05-22-2024 End: 05-22-2024 Patient encounter procedure Danya Pguh DO Work Phone: [facility] Comment on above: MEET WITH PHYSICIAN (Primary Dx) Start: 05-15-2024 End: 08-14-2024 Transcribe Orders Sherif Shah DIAGNOSTIC IMAGING MANAGER - BU[employer] AND [employer]PLOYMENT ENGINEER Work Phone: [facility] Comment on above: Other ovarian dysfun ction (Primary Dx); Flushing; Syncope and collapse; Genetic susceptibility to other disease; Amenorrhea, unspecified; Personal history of other specified conditions; Palpitations; Family history of other endocrine, nutritional and metabolic diseases Start: 05-13-2024 End: 08-12-2024 Transcribe Orders Sherif Shah DIAGNOSTIC IMAGING MANAGER - BUILD AND DEPLOYMENT ENGINEER Work Phone: [facility] Comment on above: Other ovarian dysfun ction (Primary Dx); Flushing; Syncope and collapse; Genetic susceptibility to other disease; Amenorrhea, unspecified; Personal history of other specified conditions; Palpitations; Family history of other endocrine, nutritional and metabolic diseases Start: 04-30-2024 End: 07-30-2024 Subsequent hospital visit by physician Zoe Pichardo DIAGNOSTIC IMAGING MANAGER - BUILD AND DEPLOYMENT ENGINEER Work Phone: [facility] Comment on above: Unspecified injury o f head, initial encounter Unspecified injury o f head, initial encounter (Primary Dx) Start: 04-30-2024 End: 04-30-2024 ambulatory ZOE CRABTREE [facility] Start: 04-17-2024 End: 04-17-2024 Office outpatient new 30 minutes Boston Cortez MD Work Phone: [facility] Neurology [facility] Comment on above: Migraine without aur a and without status migrainosus, not intractable (Primary Dx); Chronic daily headache Start: 04-17-2024 End: 04-17-2024 ambulatory ZACHARIAH ROME [facility] Start: 04-02-2024 ambulatory Mesha Kelley Facility :[facility] Start: 04-02-2024 End: 04-02-2024 ambulatory Mesha Kelley Facility:[facility] Start: 03-03-2024 End: 03-03-2024 ambulatory Ngoc Hawkins Facility:[facility] Start: 02-14-2024 End: 02-14-2024 ambulatory Pretty Christian Josue Facility:[facility] Start: 01-28-2024 End: 04-28-2024 Transcribe Orders Ngoc Hawkins [facility] Comment on above: Irritable bowel synd sabrina, unspecified (Primary Dx); Melena Start: 01-24-2024 End: 01-24-2024 ambulatory Zachariah Rome Facility:[facility] Start: 01-21-2024 End: 01-21-2024 ambulatory Pretty Matos Facility:[facility] Start: 01-16-2024 End: 04-16-2024 Transcribe Orders Mayela Prajapati MD Work Phone: [facility] Comment on above: Chronic kidney disea se, stage 1 (Primary Dx) Start: 01-10-2024 End: 01-10-2024 ambulatory Lawrence Del Toro Facility:[facility] Start: 06-12-2023 Telephone encounter Solange gifford MD Work Phone: [facility] Cardiology Comment on above: Advice Only Start: 05-22-2023 Telephone encounter Claire By gladys AGUDELO Work Phone: [facility] Central Scheduling Comment on above: Scheduling Start: 05-09-2023 End: 05-09-[address] Zachariah Rome Work Phone: [facility] Work Phone: Start: 05-09-2023 End: 05-09-[address] Zachariah Rome Work Phone: [facility] Work Phone: Start: 04-29-2023 Letter encounter [facility] Work Phone: Start: 04-09-2023 End: 04-09-[address] Zachariah Rome Work Phone: [facility] Work Phone: Start: 04-04-2023 Transcribe Orders Preti Carmencita singer MD Work Phone: [facility] Comment on above: Chronic kidney disea se, stage 1 (Primary Dx) Start: 03-16-2023 End: 03-16-[address] Zachariah Rome Work Phone: [facility] Work Phone: Start: 02-14-2023 End: 02-14-[address] Zachariah Rome Work Phone: [facility] Work Phone: Start: 02-14-2023 End: 02-14-[address] Zachariah Rome Work Phone: [facility]-Laboratory, OP Pavilion Start: 02-14-2023 End: 02-14-[address] Zachariah Rome Work Phone: [facility] Work Phone: Start: 02-13-2023 End: 02-13-2023 Office outpatient visit 25 minutes Solange Corcoran MD Work Phone: [facility] Cardiology Comment on above: Dysautonomia orthost atic hypotension syndrome (Primary Dx); Palpitations; Shortness of breath; 9 weeks gestation of Start: 11-21-2022 End: 11-21-2022 Office outpatient new 45 minutes Claire Lewis DO Work Phone: [facility] Urogynecology Comment on above: NURA (stress urinary incontinence, female) (Primary Dx); Bladder pain; Feeling of incomplete bladder emptying; POP-Q stage 1 rectocele; Dyspareunia in female; Endometriosis; Adenomyosis; Dysuria Start: 11-20-2022 End: 11-20-[address] Zachariah Rome Work Phone: [facility] Work Phone: Start: 09-13-2022 End: 09-13-2022 Subsequent hospital visit by physician Anabella Hurtado DO Work Phone: [facility] [address] [facility] Comment on above: Visual changes; Chronic primary headache Start: 09-08-2022 End: 09-08-2022 Office outpatient new 30 minutes Anabella Hurtado DO Work Phone: [facility] Family Medicine Comment on above: Visual changes (Prim sandie Dx); Chronic primary headache Start: 09-05-2022 End: 09-05-2022 ambulatory [facility] Drawstation [facility] Laboratory Comment on above: Arrived Chronic kidney disea se, stage 2 (mild) (Primary Dx) Start: 09-04-2022 Transcribe Orders Zachariah cadet DO Work Phone: [facility] Urogynecology Comment on above: Urge incontinence (P rimary Dx) Start: 08-15-2022 End: 08-15-2022 Office outpatient visit 15 minutes Cathy Emerson Watson DO Work Phone: [facility] Oncology Comment on above: Neutropenia, unspeci fied type (HCC) (Primary Dx) Start: 08-11-2022 End: 08-11-2022 Subsequent hospital visit by physician Cathy Watson DO Work Phone: [facility] CT Imaging Comment on above: Neutropenia, unspeci fied type (HCC); Lower abdominal pain; Dizziness Start: 08-02-2022 End: 08-02-2022 Office outpatient new 60 minutes Cathy Emerson Johnathan DO Work Phone: [facility] Oncology Comment on above: Neutropenia, unspeci fied type (HCC) (Primary Dx); Lower abdominal pain; Dizziness Start: 07-24-2022 End: 07-24-2022 ambulatory Zachariah Rome DO Work Phone: [facility] Laboratory Comment on above: Arrived Neutropenia, unspeci fied (CMS/HCC) (HCC) (Primary Dx) Start: 07-04-2022 End: 07-04-2022 Office outpatient new 45 minutes Solange Corcoran MD Work Phone: [facility] Cardiology Comment on above: Dysautonomia orthost atic hypotension syndrome (Primary Dx); Palpitations Start: 05-26-2022 End: 05-26-2022 ambulatory Zachariah Rome DO Work Phone: [facility] Laboratory Comment on above: Bacteriuria (Primary Dx) Start: 05-22-2022 End: 05-22-2022 ambulatory Zachariah Rome DO Work Phone: [facility] Laboratory Comment on above: Proteinuria, unspeci fied (Primary Dx) Neutropenia, unspeci fied (CMS/HCC) (HCC) (Primary Dx); Proteinuria, unspecified Start: 04-28-2022 End: 04-28-2022 ambulatory Zachariah Rome DO Work Phone: [facility] Laboratory Comment on above: Neutropenia, unspeci fied (CMS/HCC) (HCC) (Primary Dx); Upper abdominal pain, unspecified Start: 04-24-2022 End: 04-24-2022 ambulatory Zachariah Rome DO Work Phone: [facility] Laboratory Comment on above: Flushing (Primary Dx ) Upper abdominal pain , unspecified (Primary Dx) Start: 04-24-2022 Telephone encounter Bhargavi balderas MD Work Phone: [facility] Cardiology Comment on above: other Start: 04-21-2022 End: 04-21-2022 Patient encounter procedure Valeria Maay MD Work Phone: [facility] Start: 04-21-2022 End: 04-21-2022 Periodic preventive med est patient 18-39 yrs Valeria Maya MD Work Phone: [facility] Comment on above: Well woman exam with routine gynecological exam (Primary Dx); Hot flashes Start: 04-20-2022 End: 04-20-2022 Office outpatient visit 40 minutes Bhargavi Price MD Work Phone: [facility] Cardiology Comment on above: Shortness of breath Start: 04-17-2022 ambulatory Duyen Olivia RN [facility] Cl inical Communication Start: 04-17-2022 Patient encounter procedure Duyen Olivia RN [facility] Clinical Communication Start: 04-17-2022 End: 04-17-2022 Office outpatient visit 15 minutes Brittany Sanchez MD Work Phone: [facility] Obstetrics & Gynecology Comment on above: LLQ pain (Primary Dx ); Abdominal bloating; Change in bowel habit Start: 04-14-2022 ambulatory [facility] Clinical [facility] Start: 04-14-2022 Patient encounter procedure Isaiah Broussard RN [facility] Clinical Communication Start: 03-31-2022 End: 03-31-2022 Subsequent hospital visit by physician [facility] Us Exam Room 1 [facility] US Imaging Comment on above: Upper abdominal pain , unspecified Start: 03-10-2022 Transcribe Orders Kojo Reis MD Work Phone: [facility] Laboratory Comment on above: Proteinuria, unspeci fied (Primary Dx) Start: 02-17-2022 Transcribe Orders Kojo Reis MD Work Phone: [facility] Laboratory Comment on above: Chronic kidney disea se, stage 2 (mild) (Primary Dx) Start: 01-25-2022 Transcribe Orders Kojo Reis MD Work Phone: [facility] Laboratory Comment on above: Chronic kidney disea se, stage 2 (mild) (Primary Dx); Anemia, unspecified Start: 01-24-2022 Transcribe Orders Pat Flood APRN Work Phone: [facility] Central Scheduling Comment on above: Chronic kidney disea se, stage 2 (mild) (Primary Dx); Persistent proteinuria, unspecified; Lower abdominal pain, unspecified Start: 01-18-2022 Transcribe Orders Zoe mccrary Work Phone: [facility] Central Scheduling Comment on above: Lower abdominal pain , unspecified (Primary Dx); Pelvic and perineal pain Start: 01-04-2022 Transcribe Orders Zachariah Balderas ray DO Work Phone: [facility] Central Scheduling Comment on above: Persistent proteinur ia, unspecified (Primary Dx) Start: 01-02-2022 Transcribe Orders Daysi Wrightisha on Work Phone: [facility] Radiology Comment on above: Low back pain, unspe cified (Primary Dx) Start: 05-11-2021 End: 05-11-2021 Subsequent hospital visit by physician Brittany Sanchez MD Work Phone: [facility] Mammography Start: 04-25-2021 Letter encounter Salazar chavez Start: 09-14-2020 End: 09-17-2020 Evaluation and management of inpatient Valeria Maya MD Work Phone: [facility] Comment on above: Heart palpitations; Rubella non-immune status, antepartum; care, antepartum; Hypothyroid in , antepartum Start: 06-16-2020 End: 06-16-2020 Subsequent hospital visit by physician Brittany Sanchez MD Work Phone: [facility] Laboratory Comment on above: Acquired hypothyroid ism; 24 weeks gestation of Start: 02-27-2020 End: 02-27-2020 Subsequent hospital visit by physician Samantha Abbott Work Phone: [facility] Laboratory Comment on above: care, antep artum Start: 05-10-2019 End: 05-10-2019 Emergency department patient visit Leonides Peterson Work Phone: [facility] Comment on above: Panic attack due to exceptional stress (Primary Dx) Start: 11-20-2017 Patient encounter NGOC SUN Fac ility:B Start: 10-25-2017 End: 10-26-2017 Patient encounter NGOC SUN Facility:[facility] Start: 10-17-2017 End: 2017 Patient encounter NGOC SUN Facility:[facility] Start: 09-21-2017 End: 09-22-2017 Patient encounter KINSEY OROZCONG Facility:[facility] Start: 07-18-2017 End: 07-19-2017 Patient encounter LAWRENCE ROME Facility:[facility] Start: 07-16-2017 End: 07-21-2017 Patient encounter KINSEY ROSENDA Facility:[facility] Start: 07-16-2017 End: 07-17-2017 Patient encounter KINSEY HERZOG Facility:[facility] Start: 07-06-2017 End: 07-11-2017 Patient encounter LAWRENCE ROME Facility:[facility] Start: 06-20-2017 End: 06-25-2017 Patient encounter KINSEY ROSENDA Facility:[facility] Start: 04-11-2017 End: 04-12-2017 Patient encounter LAWRENCE ROME Facility:[facility] Start: 12-06-2016 Encounter for gynecological examination (general) (routine) without abnormal findings KINSEY HERZOG [facility] ([place]) Start: 12-06-2016 End: 12-11-2016 Patient encounter KINSEY ROSENDA Facility:[facility] Start: 08-18-2016 End: 08-18-2016 Emergency department patient visit MART HARMON Facility:[facility] Start: 08-07-2016 End: 08-08-2016 Ambulatory PHY WO ID REFERRING Facility:[facility] IN Encounter for gynecological examination (general) (routine) without abnormal findings KINSEY [facility] ([place]) Procedures Date Procedure Procedure Detail Performing Clinician Start: 12-16-2024 Urnls dip stick/tabl et rgnt non-auto w/o micrscp Claire Lewis DO Work Phone: Start: 12-16-2024 Follow-up visit EUGENIA ROME Start: 12-12-2024 Follow-up visit EUGENIA ROME Start: 12-08-2024 Ct abdomen & pelvis w/contrast material Jamal Almaguer MD Work Phone: Start: 12-08-2024 Comprehensive metabo lic panel Jamal Almaguer MD Work Phone: Start: 12-08-2024 SARS-COV-2, FLU A/B, AND RSV COMBO Jamal Almaguer MD Work Phone: Start: 12-08-2024 Urnls dip stick/tabl et rgnt auto w/o microscopy Jamal Almaguer MD Work Phone: Start: 12-03-2024 Assay of troponin quantitative Jeffry Hymanmonica DO Work Phone: Start: 12-03-2024 Basic metabolic pane l calcium total Jeffry Cesar Rios DO Work Phone: Start: 12-03-2024 Radiologic exam ches t single view Jeffry Guerrero Jennie DO Work Phone: Start: 12-03-2024 Ecg routine ecg w/le ast 12 lds trcg only w/o i&r Jeffry Cesar Rios DO Work Phone: Start: 11-27-2024 Cardiovascular funct ion eval w/tilt table w/mntr Solange Corcoran MD Work Phone: Start: 11-23-2024 Basic metabolic pane l calcium total Martinez Danielle MD Work Phone: Start: 11-23-2024 C-reactive protein Branden Danielle MD Work Phone: Start: 11-23-2024 Radiologic exam comp lete acute abdomen series Martinez Danielle MD Work Phone: Start: 11-23-2024 Urnls dip stick/tabl et rgnt auto w/o microscopy Martinez Danielle MD Work Phone: Start: 11-23-2024 Thyrotropin [Units/v olume] in Serum or Plasma Martinez Danielle MD Work Phone: Start: 11-14-2024 Ecg routine ecg w/le ast 12 lds trcg only w/o i&r Nixon G Pete DO Work Phone: Start: 11-14-2024 Comprehensive metabo lic panel Nixon G Pete DO Work Phone: Start: 11-11-2024 Ecg routine ecg w/le ast 12 lds w/i&r Solange Corcoran MD Work Phone: Start: 11-11-2024 Follow-up visit EUGENIA ROME Start: 11-10-2024 Fol[address]le stimulating hormone measurement Dr. Zachariah Rome DO Work Phone: Comment on above: FEMALE:Follicular: 1 .4 - 18.1 mIU/mLMidcycle: 3.4 - 33.4 mIU/mLLuteal: 1.5 - 9.1 mIU/mLPost Menopause: 23.0 - 116.3 mIU/mLMALE: 1.4 - 18.1 mIU/mL Start: 11-10-2024 Follow-up visit EUGENIA ROME Start: 11-06-[address] Aditi Rome DO Work Phone: Start: 10-31-2024 Assay of troponin quantitative Jamal Almaguer MD Work Phone: Start: 10-31-2024 Ct angiography chest w/contrast/noncontrast Jamal Almagure MD Work Phone: Start: 10-31-2024 Ct head/brain w/o co ntrast material Jamal Almaguer MD Work Phone: Start: 10-30-2024 Comprehensive metabo lic panel Jamal Almaguer MD Work Phone: Start: 10-30-2024 Ecg routine ecg w/le ast 12 lds trcg only w/o i&r Jamal Almaguer MD Work Phone: Start: 10-30-2024 Thyrotropin [Units/v olume] in Serum or Plasma Jamal Almaguer MD Work Phone: Start: 10-29-2024 Echo tthrc r-t 2d w/ wom-mode compl spec&colr d Shivani Brown DIAGNOSTIC IMAGING MANAGER - BUILD AND DEPLOYMENT ENGINEER Work Phone: Start: 10-29-2024 Ecg routine ecg w/le ast 12 lds trcg only w/o i&r Shivani Brown DIAGNOSTIC IMAGING MANAGER - BUILD AND DEPLOYMENT ENGINEER Work Phone: Start: 10-29-2024 Comprehensive metabo lic panel Shivani Brown DIAGNOSTIC IMAGING MANAGER - BUILD AND DEPLOYMENT ENGINEER Work Phone: Start: 10-29-2024 Lipid panel Shivani Brown DIAGNOSTIC IMAGING MANAGER - BUILD AND DEPLOYMENT ENGINEER Work Phone: Start: 10-28-2024 Assay of triiodothyr onine t3 free Shivani Brown DIAGNOSTIC IMAGING MANAGER - BUILD AND DEPLOYMENT ENGINEER Work Phone: Start: 10-28-2024 Us soft tissue head & neck real time imge docm Shivani Brown DIAGNOSTIC IMAGING MANAGER - BUILD AND DEPLOYMENT ENGINEER Work Phone: Start: 10-28-2024 Urnls dip stick/tabl et rgnt auto w/o microscopy Bernabe Perales MD Work Phone: Start: 10-28-2024 Assay of troponin quantitative Bernabe Perales MD Work Phone: Start: 10-28-2024 Comprehensive metabo lic panel Bernabe Perales MD Work Phone: Start: 10-28-2024 Ecg routine ecg w/le ast 12 lds trcg only w/o i&r Bernabe Perales MD Work Phone: Start: 10-28-2024 Thyrotropin [Units/v olume] in Serum or Plasma Inga Aguilar RN Start: 10-27-2024 Basic metabolic pane l calcium total Mejgon Z Ade DO Work Phone: Start: 10-27-2024 Ecg routine ecg w/le ast 12 lds trcg only w/o i&r Mejgon Z Ade DO Work Phone: Start: 10-26-2024 Assay of troponin quantitative Mejgon Z Ade DO Work Phone: Start: 10-26-2024 Radiologic exam ches t single view Mejgon Z Ade DO Work Phone: Start: 10-26-2024 Basic metabolic pane l calcium total Mejgon Z Ade DO Work Phone: Start: 10-26-2024 Ecg routine ecg w/le ast 12 lds trcg only w/o i&r Mejgon Z Ade DO Work Phone: Start: 10-23-2024 Follow-up visit EUGENIA ROME Start: 10-10-2024 Thyrotropin [Units/v olume] in Serum or Plasma Mony Hayes MD Work Phone: Start: 10-07-2024 Assay of troponin quantitative Farrukh Calvert PA-C Work Phone: Start: 10-07-2024 Comprehensive metabo lic panel Farrukh Calvert PA-C Work Phone: Start: 10-07-2024 Urnls dip stick/tabl et rgnt auto w/o microscopy Farrukh MORLEY-Mauro Work Phone: Start: 10-07-2024 Ecg routine ecg w/le ast 12 lds trcg only w/o i&r Jung Dickens MD Work Phone: Start: 10-05-2024 Ecg routine ecg w/le ast 12 lds trcg only w/o i&r Shani Kate MD Work Phone: Start: 10-05-2024 Ct angiography chest w/contrast/noncontrast Otilio Kaur DO Work Phone: Start: 10-05-2024 Blood gases any comb ination ph pco2 po2 co2 hco3 -Helen Mane MD Work Phone: Start: 10-05-2024 Urnls dip stick/tabl et rgnt auto w/o microscopy Otilio Kaur DO Work Phone: Start: 10-05-2024 Bacteria identified in Blood by Culture Otilio Kaur DO Work Phone: Start: 10-05-2024 End: 10-05-2024 Basic metabolic panel calcium total Otilio Kaur DO Work Phone: Start: 10-05-2024 Ecg routine ecg w/le ast 12 [facility] trcg only w/o i&r Liang Combs MD Work Phone: Start: 10-05-2024 Thyrotropin [Units/v olume] in Serum or Plasma Liang Combs MD Work Phone: Start: 09-16-[address] Zachariah Rome DO Work Phone: Start: 08-26-2024 Mri brain brain stem w/o w/contrast material [facility] Start: 08-19-[address] Rosita Rome DO Work Phone: Start: 08-19-2024 Lumpectomy of left breast Dr. Zachariah Rome DO Work Phone: Start: 05-15-2024 Catecholamines blood Ca haleigh Shah APRN - BUILD AND [employer]PLOYMENT ENGINEER Work Phone: Start: 05-13-2024 Thyrotropin [Units/v olume] in Serum or Plasma Zoe Pichardo APRN - BUILD AND DEPLOYMENT ENGINEER Work Phone: Start: 04-30-2024 Ct head/brain w/o co ntrast material Zoe Pichardo APRN - BUILD AND DEPLOYMENT ENGINEER Work Phone: Start: 04-17-2024 Follow-up visit Follow-up BOSTON CORTEZ Start: 02-14-[address] Ralph Rome Work Phone: Start: 11-21-2022 Urnls dip stick/tabl et rgnt non-auto w/o micrscp Claire Synes DO Work Phone: Start: 10-02-2022 Thyrotropin [Units/v olume] in Serum or Plasma Zachariah Rome DO Work Phone: Start: 09-13-2022 Mri brain brain stem w/o contrast material Anabella Hurtado DO Work Phone: Start: 09-05-2022 Renal function panel Pr isadora Prajapati MD Work Phone: Start: 08-02-2022 Complete blood count with white cell differential, automated Cathy Watson DO Work Phone: Start: 08-02-2022 Comprehensive metabo lic panel Cathy E Johnathan DO Work Phone: Start: 07-24-2022 Blood smear peripher al interp phys w/writ report Zachariah Rome DO Work Phone: Start: 07-04-2022 Ecg routine ecg w/le ast 12 lds w/i&r Solange Corcoran MD Work Phone: Start: 05-26-2022 Culture bacterial quanttative colony count urine Zachariah Rome Work Phone: Start: 05-22-2022 End: 05-22-2022 Creatinine other source Kojo Reis MD Work Phone: Start: 05-22-2022 Urnls dip stick/tabl et reagent auto microscopy Kojo Reis MD Work Phone: Start: 04-28-2022 Blood count complete auto&auto difrntl wbc Zachariah Rome DO Work Phone: Start: 03-24-2023 Assay of amylase Sadia Rome DO Work Phone: Start: 04-24-2022 End: 04-24-2022 Assay of thyroid stimulating hormone tsh Valeria Maya MD Work Phone: Start: 04-24-2022 Thyrotropin [Units/v olume] in Serum or Plasma Kojo Reis MD Work Phone: Start: 04-20-2022 Ecg routine ecg w/le ast 12 lds trcg only w/o i&r Bhargavi Leidy Price MD Work Phone: Start: 03-31-2022 Us abdominal real ti me w/image documentation Zachariah Rome DO Work Phone: Start: 03-10-2022 Creatinine other source Kojo Reis MD Work Phone: Start: 03-10-2022 End: 03-10-2022 Creatinine other source Kojo Reis MD Work Phone: Start: 01-25-2022 Antinuclear antibodies michelle Pat Aleena DIAGNOSTIC IMAGING MANAGER Work Phone: Start: 01-25-2022 Assay of iron Pat Hor ner DIAGNOSTIC IMAGING MANAGER Work Phone: Start: 01-03-2022 Thyrotropin [Units/v olume] in Serum or Plasma Sbh 1 Start: 05-11-2021 Us breast uni real t sathish with image limited Brittany Sanchez MD Work Phone: Start: 04-20-2021 Microscopic observat ion [Identifier] in Cervix by Cyto stain Brittany Sanchez MD Work Phone: Start: 09-15-2020 Comprehensive metabo lic panel Amie Amor MD Work Phone: Start: 09-14-2020 Antibody screen Valeria Maya MD Work Phone: Start: 09-14-2020 Blood count complete automated Mercedes T Todd DO Work Phone: Start: 09-14-2020 Blood typing serologic abo Mercedes T Todd DO Work Phone: Start: 06-16-2020 Assay of free thyroxine Brittany Sanchez MD Work Phone: Start: 02-27-2020 Antibody screen rbc each serum technique Samantha [employer] Work Phone: Start: 02-27-2020 Assay of free thyroxine Samantha [employer] Work Phone: Start: 02-27-2020 Assay of thyroid sti mulating hormone tsh Samantha [employer] Work Phone: Start: 02-27-2020 Blood count complete automated Samantha [employer] Work Phone: Start: 02-27-2020 Blood typing serologic abo Samantha [employer] Work Phone: Start: 02-27-2020 RUBELLA IMMUNE Brunilda norman [employer] Work Phone: Start: 05-10-2019 Radiologic exam ches t single view Leonides Peterson Work Phone: Start: 05-10-2019 Assay of troponin quantitative Leonides [employer] Work Phone: Start: 05-10-2019 Basic metabolic pane l calcium total Leonides Peterson Work Phone: Start: 05-10-2019 Blood count complete auto&auto difrntl wbc Leonides Peterson Work Phone: Start: 05-10-2019 Fibrin dgradj produc ts d-dimer quantitative Leonides Peterson Work Phone: Start: 05-10-2019 Ecg routine ecg w/le ast 12 lds w/i&r Leonides Peterson Work Phone: Plan of Treatment Date Care Activity Detail Author Start: 2069 RSV Immunization for Adults (1 - 1-dose 75+ series) RSV Immunization for Adults (1 - 1-dose 75+ series) [employer] Start: 2054 RSV Immunization aged 60 or older (1 - 1-dose 60+ series) RSV Immunization aged 60 or older (1 - 1-dose 60+ series) [facility] Start: 2044 Shingles (RZV) Vaccine (1 of 2) Shingles (RZV) Vaccine (1 of 2) [facility] Start: 2044 Zoster Vaccines (1 of 2) Zoster Vaccines (1 of 2) [facility] Start: 11-23-2025 Thyroid stimulating hormone measurement TSH Level [facility] Start: 10-30-2025 Thyroid stimulating hormone measurement TSH Level [facility] Start: 10-28-2025 Thyroid Nodule Ultrasound Thyroid Nodule Ultrasound [facility] Start: 10-28-2025 Thyroid stimulating hormone measurement TSH Level [facility] Start: 10-10-2025 Thyroid stimulating hormone measurement TSH Level [facility] Start: 10-05-2025 Thyroid stimulating hormone measurement TSH Level [facility] Start: 05-13-2025 Thyroid stimulating hormone measurement TSH Level [facility] Start: 04-27-2025 Depression Monitoring Depression Monitoring [facility] Start: 04-22-2025 Depression Monitoring Depression Monitoring [facility] Start: 03-18-2025 End: 03-18-2025 Patient encounter procedure 03/18/2025 3:15 PM EST Office Visit [facility] Urogynecology [address] [place] [phone] Claire Lewis DO [address] [place] [address] [facility] Urogynecology Start: 02-12-2025 End: 02-12-2025 Patient encounter procedure 02/12/2025 9:45 AM EST Office Visit [facility] Neurology [facility] [address] [place] [phone] Boston Cortez MD [address] [facility] [place] [address] [facility] Neurology [facility] Start: 01-12-2025 End: 01-12-2025 Patient encounter procedure 01/12/2025 3:00 PM EST Office Visit Neurology [address] [place], [place] [id number] Morenita Shah, DIAGNOSTIC IMAGING MANAGER.BUILD AND DEPLOYMENT ENGINEER [address] [place] [address] first available for recurrent syncope/lightheadedness, ? POTS Neurology Comment on above: first available for recurrent syncope/li ghtheadedness, ? POTS Start: 01-06-2025 End: 01-06-2025 Patient encounter procedure Gastroenterology Rudolph Comment on above: 3 month follow up Start: 12-19-2024 End: 12-19-2024 Patient encounter procedure 12/19/2024 8:00 AM EST Procedure Visit [facility] Urogynecology [address] [address] [facility] Urogynecology Start: 12-16-2024 End: 12-16-2024 Patient encounter procedure 12/16/2024 9:45 AM EST Office Visit [facility] Urogynecology [address] [place] [address] Claire Lewis DO [address] [id number] [facility] Urogynecology Start: 12-12-2024 End: 12-12-2025 Angiotensin converting enzyme [Enzymatic activity/volume] in Serum or Plasma Angiotensin converting enzyme (Sendout) Lab Routine Neuropathy Expected: 12/12/2024 (Approximate), Expires: 12/12/2025 [employer] Comment on above: Expected: 12/12/2024 (Approximate), Expi res: 12/12/2025 Start: 12-12-2024 End: 12-12-2025 Erythrocyte sedimentation rate Sedimentation rate, automated Lab Routine Neuropathy Expected: 12/12/2024 (Approximate), Expires: 12/12/2025 [employer] Comment on above: Expected: 12/12/2024 (Approximate), Expi res: 12/12/2025 Start: 12-12-2024 End: 12-12-2025 Immunofixation Electrophoresis Immunofixation Electrophoresis Lab Routine Neuropathy Expected: 12/12/2024 (Approximate), Expires: 12/12/2025 [facility] Comment on above: Expected: 12/12/2024 (Approximate), Expi res: 12/12/2025 Start: 12-12-2024 End: 12-12-2025 Nuclear Ab [Titer] in Serum by Immunofluorescence MICHELLE Lab Routine Neuropathy Expected: 12/12/2024 (Approximate), Expires: 12/12/2025 [facility] Comment on above: Expected: 12/12/2024 (Approximate), Expi res: 12/12/2025 Start: 12-12-2024 End: 12-12-2024 Patient encounter procedure 12/12/2024 9:30 AM EST Office Visit [facility] Neurology [facility] [address] [facility] [place] [phone] Boston Cortez MD 500 [facility] [place] [address] [facility] Start: 12-03-2024 End: 12-03-2024 Patient encounter procedure 12/03/2024 11:00 AM EDT Office Visit [facility] Cardiology - [address] [place] [phone] Solange Corcoran MD [address] [place] [address] Road [address] [place] [address] [facility] Cardiology - [place] Start: 11-27-2024 End: 11-27-2024 Patient encounter procedure 11/27/2024 8:00 AM EDT Appointment [facility] [address] Non-Invasive Cardiology [address] [place] [phone] Solange Corcoran MD [facility] [place], [place] [phone] [facility] [address] Non-Invasive Cardiology Start: 11-20-2024 End: 11-20-2024 Follow-up encounter 11/20/2024 2:00 PM EDT Follow-Up [facility] Therapy at [address] [place] [address] Teresa Mckeon [address] [place] [address] Rosa Willard, PT [facility] Therapy [facility] Start: 11-14-2024 End: 11-14-2024 ambulatory 11/14/2024 6:30 AM EDT Evaluation [facility] [address] [place] [phone] Teresa Mckeon [address] [place] [address] Rosa Willard, PT [facility] Start: 11-11-2024 End: 11-11-2024 Patient encounter procedure 11/11/2024 2:00 PM EDT Office Visit [facility] Cardiology [facility] [address] [facility] [address] [place] [phone] Solange Corcoran MD [address] [facility] [address] [place] [address] [facility] Start: 11-11-2024 End: 11-11-2026 Tilt table study Tilt table CV Cardiac Services Routine Dysautonomia orthostatic hypotension syndrome Expected: 11/11/2024 (Approximate), Expires: 11/11/2026 [facility] Work Phone: Comment on above: Expected: 11/11/2024 (Approximate), Expi res: 11/11/2026 Start: 11-10-2024 [facility] Start: 11-10-2024 End: 11-10-2024 Patient encounter procedure 11/10/2024 12:00 PM EDT Office Visit [facility] Neurology - [place] [address] [place] [phone] Teresa Ohara, DIAGNOSTIC IMAGING MANAGER - BUILD AND DEPLOYMENT ENGINEER [address] [place] [address] [facility] Neurology [facility] Start: 11-10-2024 End: 11-10-2024 Follow-up encounter 11/10/2024 7:00 AM EDT Follow-Up [facility] Therapy at [address] [place] [phone] Teresa Mckeon [address] [place], [place] [address] Johnathan Holman, ISAK [facility] Therapy at [facility] Start: 11-06-2024 End: 11-06-2024 Patient encounter procedure 11/06/2024 7:30 AM EDT Appointment [facility] [address] [place] [address] [facility] Start: 11-05-2024 End: 11-05-2024 Patient encounter procedure 11/05/2024 9:30 AM EDT Appointment [facility] [address] [place] [phone] Zachariah Rome DO [address] [place] [phone] [facility] Start: 11-05-2024 Subsequent hospital visit by physician 11/05/2024 9:30 AM EDT Hospital Encounter [facility] [address] [place] [phone] Zachariah Rome DO [address] [place] [phone] [facility] Start: 11-05-2024 End: 11-05-2024 Follow-up encounter 11/05/2024 8:30 AM EDT Follow-Up [facility] Therapy at [address] [place] [phone] Teresa Mckeon [address] [place], [place] [phone] Johnathan Holman, SUPERINTENDENT COMPRESSOR STATIONS [facility] Therapy at [facility] Start: 11-03-2024 End: 11-03-2024 Patient encounter procedure 11/03/2024 9:30 AM EDT Appointment [facility] [address] [place] [phone] Teresa Ohara, DIAGNOSTIC IMAGING MANAGER - BUILD AND DEPLOYMENT ENGINEER [address] [place] [address] [facility]ARRERA[facility] Start: 11-03-2024 End: 11-03-2024 Follow-up encounter 11/03/2024 7:00 AM EDT [facility] Therapy at [address] [place] [phone] [place], [place] [address] Johnathan Holman, SUPERINTENDENT COMPRESSOR STATIONS [facility] Therapy at [facility] Start: 10-31-2024 End: 10-31-2024 Follow-up encounter 10/31/2024 12:00 PM EDT [facility] Therapy at [address] [place] [phone] [place], [place] [phone] Rosa Willard, PT [facility] Therapy at [facility] Start: 10-31-2024 Registered Referred Registered Referred -Cardiovascular Services Work Phone: Start: 10-28-2024 End: 10-28-2024 Follow-up encounter 10/28/2024 6:30 PM EDT [facility] Therapy at [address] [place] [phone] [address]keon [address] [place], [place] [phone] Johnathan Holman PTA [facility] Therapy at [facility] Start: 10-27-2024 End: 10-27-2024 Evaluation of diagnostic study results [facility] Start: 10-25-2024 End: 10-25-2024 Follow-up encounter 10/25/2024 8:00 AM EDT Follow-Up [facility] at [address] [place] [phone] [place], [place] [address] Jonny Mckay PTA [facility] at [facility] Start: 10-23-2024 End: 10-23-2025 Nerve conduction test with EMG Nerve conduction test with EMG Neurology Routine Muscle spasm Expected: 10/23/2024 (Approximate), Expires: 10/23/2025 [facility] Comment on above: Expected: 10/23/2024 (Approximate), Expi res: 10/23/2025 Start: 10-23-2024 End: 10-23-2025 Vestibular test Vestibular test Neurology Routine Dizziness Expected: 10/23/2024 (Approximate), Expires: 10/23/2025 [facility] Work Phone: Comment on above: Expected: 10/23/2024 (Approximate), Expi res: 10/23/2025 Start: 10-23-2024 End: 10-23-2024 Patient encounter procedure 10/23/2024 7:30 AM EDT Office Visit [facility] Neurology [facility] [address] [place] [address] Teresa Ohara APRN - SURESH [address] [place] [address] [facility] Start: 2024 Screening for malignant neoplasm of cervix [facility] Start: 10-21-2024 End: 10-21-2024 Follow-up encounter 10/21/2024 8:15 AM EDT Follow-Up [facility] Therapy at [address] [place] [phone] [place] [address] Rosa Willard, PT [facility] Therapy at [facility] Start: 10-18-2024 End: 10-18-2024 ambulatory 10/18/2024 9:00 AM EDT Evaluation [facility] Therapy at [address] [place] [phone] [place] [address] Tanisha Flores, PT [facility] Therapy at [facility] Start: 10-15-2024 End: 10-15-2024 Evaluation of diagnostic study results [facility] Start: 10-08-2024 End: 10-08-2024 ambulatory 10/08/2024 2:15 PM EDT Evaluation [facility] Therapy at [address] [place] [phone] Teresa Mckeon [address] [place], [place] [address] Blanquita Bhakta, PT [facility] Therapy at [facility] Start: 10-06-2024 COVID-19 Vaccine ( season) COVID-19 Vaccine ( season) [facility] Start: 10-06-2024 COVID-19 Vaccine ( season) COVID-19 Vaccine ( season) [facility] Start: 10-06-2024 Influenza vaccination [facility] Start: 09-26-2024 End: 09-26-2024 Patient encounter procedure 09/26/2024 8:00 AM EDT Appointment Radiology [address] [place] [address] Dx: LLQ pain [R10.32]; Bloating [R14.0] Radiology Comment on above: Dx: LLQ pain [R10.32]; Bloating [R14.0] Start: 09-24-2024 End: 12-24-2024 CELIAC SCREEN WITH REFLEX CELIAC SCREEN WITH REFLEX Lab Routine Bloating Expected: 09/24/2024, Expires: 12/24/2024 [facility] Work Phone: Comment on above: Expected: 09/24/2024, Expires: Start: 09-24-2024 End: 09-24-2024 Patient encounter procedure 09/24/2024 9:40 AM EDT Office Visit Gastroenterology Ronni [address] [facility] [phone] Tariq Singleton APRN.BUILD AND DEPLOYMENT ENGINEER [address] [facility] [address] establish with new GI Gastroenterology Ronni Comment on above: establish with new GI Start: 08-19-2024 Anes integ extremities ant trunk & perineum nos ANESTH SKIN EXT/PER/ATRUNK [facility] Start: 08-19-2024 Biomedical equipment procedure PERQ DEV BREAST 1ST US IMAG [facility] Start: 08-19-2024 Lumpectomy of right breast PARTIAL MASTECTOMY [facility] Start: 08-19-2024 Mastectomy partial PARTIAL MASTECTOMY [facility] Start: 08-19-2024 Perq breast loc device placemt 1st lesio us imag PERQ DEV BREAST 1ST US IMAG [facility] Start: 08-19-2024 Patient discharge [facility] Start: 06-04-2024 End: 06-04-2025 MR Pituitary and Sella turcica WO and W contrast IV MR pituitary w and wo IV contrast Imaging Routine Hyperprolactinemia (HCC) Expected: 06/04/2024, Expires: 06/04/2025 [facility] Work Phone: Comment on above: Expected: 06/04/2024, Expires: Start: 04-20-2024 Screening for malignant neoplasm of cervix Pap smear [facility] Start: 04-17-2024 End: 04-17-2024 Patient encounter procedure 04/17/2024 9:00 AM EDT Office Visit [facility] [address] [facility] [place] [phone] Boston Cortez MD [address] [place] [address] [facility] Start: 01-28-2024 End: 01-27-2025 Giardia lamblia antibody, IFA Giardia lamblia antibody, IFA Lab Routine Irritable bowel syndrome, unspecified Melena Expected: 01/28/2024 (Approximate), Expires: 01/27/2025 [facility] Work Phone: Comment on above: Expected: 01/28/2024 (Approximate), Expi res: 01/27/2025 Start: 10-07-2023 COVID-19 Vaccine ( season) COVID-19 Vaccine ( season) [facility] Start: 10-07-2023 Influenza vaccination [facility] Start: 10-03-2023 Thyroid stimulating hormone measurement TSH Level [facility] Start: 04-25-2023 Thyroid stimulating hormone measurement TSH Level [facility] Start: 01-03-2023 Thyroid stimulating hormone measurement TSH Level [facility] Start: 01-03-2023 End: 01-03-2023 Patient encounter procedure 01/03/2023 9:45 AM EST Office Visit [facility] Cardiology [address] [facility] [address] [place] [phone] Solange Corcoran MD [address] [facility] [address] [place] [address] [facility] Cardiology Start: 11-21-2022 End: 11-21-2022 Patient encounter procedure 11/21/2022 3:00 PM EDT Office Visit [facility] Urogynecology [address] [place] [phone] Claire Lewis DO [address] [place] [address] [address] [place] [address] [facility] Urogynecology Start: 10-06-2022 COVID-19 Vaccine ( season) COVID-19 Vaccine () [facility] Start: 10-06-2022 Influenza vaccination [facility] Start: 09-26-2022 End: 09-26-2022 Patient encounter procedure 09/26/2022 9:15 AM EDT Office Visit [facility] Cardiology [address] [facility] [address] [place] [phone] Solange Corcoran MD [address] [place] [address] [place] [address] [facility] Cardiology Start: 09-25-2022 End: 09-25-2022 Patient encounter procedure 09/25/2022 7:45 AM EDT Appointment [facility] MRI [address] [place] [phone] Anabella Hurtado, [address] [place] [address] [facility] MRI Start: 09-12-2022 End: 09-12-2022 Patient encounter procedure [facility] Cardiology Start: 09-08-2022 End: 09-09-2023 MR Brain WO contrast MR brain wo contrast Imaging Routine Visual changes Chronic primary headache Expected: 09/08/2022, Expires: 09/09/2023 [facility] Work Phone: Comment on above: Expected: 09/08/2022, Expires: Start: 09-08-2022 End: 09-08-2022 Patient encounter procedure [facility] Family Medicine Start: 08-29-2022 End: 08-29-2022 Patient encounter procedure 08/29/2022 10:00 AM EDT Office Visit [facility] Oncology [address] [place] [phone] Cathy [place] DO [address] [place] [address] [facility] Oncology Start: 08-23-2022 End: 08-23-2022 Patient encounter procedure [facility] Start: 08-15-2022 End: 08-15-2022 Patient encounter procedure 08/15/2022 9:45 AM EDT Office Visit [facility] Oncology [address] [place] [phone] Cathy [place], [address] [place] [address] [facility] Oncology Start: 08-03-2022 End: 08-03-2022 Patient encounter procedure 08/03/2022 Office Visit Cardiology Bhargavi Price MD [address] [place] [address] [facility] Cardiology Start: 08-02-2022 End: 08-03-2023 CBC W Auto Differential panel - Blood CBC auto differential Lab Routine Neutropenia, unspecified type (HCC) Lower abdominal pain Dizziness Expected: 08/02/2022 (Approximate), Expires: 08/03/2023 [facility] Work Phone: Comment on above: Expected: 08/02/2022 (Approximate), Expi res: 08/03/2023 Start: 08-02-2022 End: 08-03-2023 Cobalamin (Vitamin B12) [Mass/volume] in Serum or Plasma Vitamin B12 Lab Routine Neutropenia, unspecified type (HCC) Lower abdominal pain Dizziness Expected: 08/02/2022 (Approximate), Expires: 08/03/2023 [facility] Comment on above: Expected: 08/02/2022 (Approximate), Expi res: 08/03/2023 Start: 08-02-2022 End: 08-03-2023 Comprehensive metabolic 1998 panel - Serum or Plasma Comprehensive metabolic panel Lab Routine Neutropenia, unspecified type (HCC) Lower abdominal pain Dizziness Expected: 08/02/2022 (Approximate), Expires: 08/03/2023 [employer] Comment on above: Expected: 08/02/2022 (Approximate), Expi res: 08/03/2023 Start: 08-02-2022 End: 08-03-2023 CT Abdomen WO contrast CT abdomen pelvis wo IV contrast Imaging Routine Neutropenia, unspecified type (HCC) Lower abdominal pain Dizziness Expected: 08/02/2022, Expires: 08/03/2023 [employer] Comment on above: Expected: 08/02/2022, Expires: Start: 08-02-2022 End: 08-03-2023 Ferritin [Mass/volume] in Serum or Plasma Ferritin Lab Routine Neutropenia, unspecified type (HCC) Lower abdominal pain Dizziness Expected: 08/02/2022 (Approximate), Expires: 08/03/2023 [employer] Comment on above: Expected: 08/02/2022 (Approximate), Expi res: 08/03/2023 Start: 08-02-2022 End: 08-03-2023 Folate [Mass/volume] in Serum or Plasma Folate Lab Routine Neutropenia, unspecified type (HCC) Lower abdominal pain Dizziness Expected: 08/02/2022 (Approximate), Expires: 08/03/2023 [employer] Comment on above: Expected: 08/02/2022 (Approximate), Expi res: 08/03/2023 Start: 08-02-2022 End: 08-03-2023 Iron and Iron binding capacity panel - Serum or Plasma Iron and TIBC Lab Routine Neutropenia, unspecified type (HCC) Lower abdominal pain Dizziness Expected: 08/02/2022 (Approximate), Expires: 08/03/2023 [employer] Comment on above: Expected: 08/02/2022 (Approximate), Expi res: 08/03/2023 Start: 08-02-2022 End: 08-03-2023 Peripheral Blood Smear Peripheral Blood Smear Pathology and Cytology Routine Neutropenia, unspecified type (HCC) Lower abdominal pain Dizziness Expected: 08/02/2022 (Approximate), Expires: 08/03/2023 [facility] Comment on above: Expected: 08/02/2022 (Approximate), Expi res: 08/03/2023 Start: 07-04-2022 End: 07-04-2022 Patient encounter procedure 07/04/2022 Office Visit Cardiology Solange Corcoran MD [address] [place] [address] [place] [address] [facility] Cardiology Start: 06-05-2022 End: 06-05-2022 Patient encounter procedure 06/05/2022 Appointment Cardiology Bhargavi Price MD [address] [place] [address] [facility] [address] Non-Invasive Cardiology Start: 05-31-2022 End: 05-31-2022 Patient encounter procedure 05/31/2022 Office Visit Gastroenterology Sara Youssef, DIAGNOSTIC IMAGING MANAGER - BUILD AND DEPLOYMENT ENGINEER [address] [facility] [address] [place] [address] [facility] Gastroenterology Start: 05-29-2022 End: 05-29-2022 Patient encounter procedure 05/29/2022 Office Visit Family Medicine Anabella Hurtado, DO [address] [place] [address] [facility] Start: 05-17-2022 End: 05-17-2022 Patient encounter procedure 05/17/2022 Office Visit Cardiology Solange Corcoran MD [address] [place] [address] [place] [address] [facility] Cardiology Start: 04-26-2022 End: 04-26-2022 Patient encounter procedure 04/26/2022 Office Visit Obstetrics and Gynecology Brittany Sanchez MD [address] [facility] [address] [place] [address] [facility] Start: 04-24-2022 End: 04-24-2022 Patient encounter procedure 04/24/2022 Office Visit Obstetrics and Gynecology [facility] Obstetrics & Gynecology Start: 04-21-2022 End: 04-22-2023 Antimullerian hormone (AMH) Antimullerian hormone (AMH) Lab Routine Hot flashes Expected: 04/21/2022 (Approximate), Expires: 04/22/2023 [facility] [employer] Comment on above: Expected: 04/21/2022 (Approximate), Expi res: 04/22/2023 Start: 04-21-2022 End: 04-22-2023 Thyrotropin [Units/volume] in Serum or Plasma TSH Lab Routine Hot flashes Expected: 04/21/2022 (Approximate), Expires: 04/22/2023 [facility] Phone: Comment on above: Expected: 04/21/2022 (Approximate), Expi res: 04/22/2023 Start: 04-21-2022 End: 04-21-2022 Patient encounter procedure [facility] Start: 04-20-2022 End: 04-20-2024 US Heart Transthoracic Transthoracic echocardiogram (TTE) complete with contrast, bubble, strain, and 3D PRN CV Echocardiography Routine Shortness of breath Expected: 04/20/2022 (Approximate), Expires: 04/20/2024 [facility]: Comment on above: Expected: 04/20/2022 (Approximate), Expi res: 04/20/2024 Start: 04-20-2022 End: 04-20-2022 Patient encounter procedure 04/20/2022 Office Visit Cardiology Bhargavi Price MD [address] [place] [address] [facility] Cardiology Start: 04-17-2022 End: 04-18-2023 US Pelvis transvaginal US pelvis transvaginal Imaging Routine LLQ pain Expected: 04/17/2022, Expires: 04/18/2023 [facility] Phone: Comment on above: Expected: 04/17/2022, Expires: Start: 04-12-2022 End: 04-12-2022 Patient encounter procedure 04/12/2022 Office Visit Cardiology Solange Corcoran MD [address] [facility] [address] [place] [address] [facility] Cardiology Start: 03-10-2022 End: 03-10-2023 Creatinine, urine, 24 hour Creatinine, urine, 24 hour Lab Routine Proteinuria, unspecified Expected: 03/10/2022 (Approximate), Expires: 03/10/2023 [facility] Comment on above: Expected: 03/10/2022 (Approximate), Expi res: 03/10/2023 Start: 03-10-2022 End: 03-10-2023 Protein, urine, random Protein, urine, random Lab Routine Proteinuria, unspecified Expected: 03/10/2022 (Approximate), Expires: 03/10/2023 [employer] Work Phone: Comment on above: Expected: 03/10/2022 (Approximate), Expi res: 03/10/2023 Start: 01-25-2022 End: 01-25-2023 Immunofixation Electrophoresis Immunofixation Electrophoresis Lab Routine Anemia, unspecified Chronic kidney disease, stage 2 (mild) Expected: 01/25/2022 (Approximate), Expires: 01/25/2023 [employer] Work Phone: Comment on above: Expected: 01/25/2022 (Approximate), Expi res: 01/25/2023 Start: 01-18-2022 End: 01-18-2023 US Pelvis transvaginal US pelvis transvaginal Imaging Routine Lower abdominal pain, unspecified Pelvic and perineal pain Expected: 01/18/2022, Expires: 01/18/2023 [employer] Work Phone: Comment on above: Expected: 01/18/2022, Expires: Start: 2021 HPV Vaccine (1 - 3-dose SCDM series) HPV Vaccine (1 - 3-dose SCDM series) [facility] Start: 2021 HPV Vaccine (optional start 27-45 years) HPV Vaccine (optional start 27-45 years) [facility] Start: 2021 HPV Vaccines (1 - 3-dose SCDM series) HPV Vaccines (1 - 3-dose SCDM series) [facility] Start: 10-06-2021 Influenza vaccination [facility] Start: 06-16-2021 Diabetes mellitus screening Diabetes Screening [facility] Start: 06-16-2021 Thyroid stimulating hormone measurement TSH testing [facility] Start: 02-26-2021 Thyroid stimulating hormone measurement TSH testing [facility] Work Phone: Start: 12-22-2020 End: 12-22-2020 Office Visit 12/22/2020 Office Visit Obstetrics and Gynecology Brittany Sanchez MD [address] [id number] [facility] Start: 11-21-2020 Cervical cancer screen Cervical cancer screen [place], [place] Start: 11-21-2020 Screening for malignant neoplasm of cervix Cervical cancer screen [place] Start: 10-06-2020 Influenza vaccination [facility] Work Phone: Start: 09-29-2020 End: 09-29-2020 ambulatory 09/29/2020 Visit Obstetrics and Gynecology Brittany Sanchez MD [address] [id number] [facility] Start: 09-05-2020 Influenza vaccination Influenza Vaccine (#1) [facility] Start: 06-18-2020 End: 06-18-2020 Patient encounter procedure 06/18/2020 Routine Obstetrics and Gynecology Samantha Abbott APRN - PRICILA [address], [address] [place], [place] [id number] [facility] Start: 03-17-2020 End: 03-17-2020 Routine 03/17/2020 Routine Obstetrics and Gynecology Brittany Sanchez MD [address] [address] [phone] [facility] Start: 11-12-2019 End: 11-12-2019 Office Visit 11/12/2019 Office Visit Obstetrics and Gynecology Brittany Sanchez MD [address] [facility] [address] [place] [address] [phone] [facility] Start: 10-07-2019 Influenza vaccination [place], [place] Start: 09-30-2017 TSH Qn TSH testing [place] Start: 09-30-2017 TSH testing TSH testing [place] Start: 10-23-2015 Screening for malignant neoplasm of cervix [facility] Start: 2013 DTaP/Tdap/Td vaccine (1 - Tdap) DTaP/Tdap/Td vaccine (1 - Tdap) [facility] Start: 2013 DTaP/Tdap/Td Vaccines (1 - Tdap) DTaP/Tdap/Td Vaccines (1 - Tdap) [facility] Start: 2013 Hepatitis A (HAV) Vaccine (optional start 19+ years) Hepatitis A (HAV) Vaccine (optional start 19+ years) [facility] Start: 2013 Hepatitis B Vaccine (1 of 3 - 19+ 3-dose series) Hepatitis B Vaccine (1 of 3 - 19+ 3-dose series) [facility] Start: 2013 Hepatitis B Vaccines (1 of 3 - 19+ 3-dose series) Hepatitis B Vaccines (1 of 3 - 19+ 3-dose series) [facility] Start: 2013 Pneumococcal Vaccine: Pediatrics (0 to 5 Years) and At-Risk Patients (6 to 49 Years) (1 of 2 - PCV) Pneumococcal Vaccine: Pediatrics (0 to 5 Years) and At-Risk Patients (6 to 49 Years) (1 of 2 - PCV) [facility] Start: 2013 Tetanus vaccination [facility] Start: 2013 Urine microalbumin profile DTaP,Tdap,Td Vaccine (1 - Tdap) [facility] Start: 2012 Anxiety Screening Anxiety Screening [facility] Start: 2012 Depression Screening Depression Screening [facility] Start: 2012 Diabetes mellitus screening Diabetes Screening [facility] Start: 2012 Hepatitis C screening Hepatitis C Antibody [facility] Start: 2012 HIV screening HIV Screening [facility] Start: 2012 Tetanus + diphtheria + acellular pertussis vaccine (product) Tdap Booster [facility] Start: 2010 Chlamydia screen Chlamydia screen [place], [place] Start: 2009 HIV screen HIV screen [place] Start: 2009 HIV screening [facility] Start: 10-23-2007 Varicella vaccination Varicella Vaccines (1 of 2 - 13+ 2-dose series) [facility] Start: 2006 COVID-19 Vaccine (1) COVID-19 Vaccine (1) [facility] Work Phone: Start: 2006 Depression Monitoring Depression Monitoring [facility] Start: 2006 Depression Screen Depression Screen [facility] Start: 2006 Depression Screening Depression Screening [facility] Start: 2005 HPV vaccine (1 - 2-dose series) HPV vaccine (1 - 2-dose series) [facility] Start: 2005 Vaccination for human papillomavirus Human Papilloma (HPV) Vaccine (1 - 2-dose series) [facility] Start: 2000 Pneumococcal 0-64 years Vaccine (1 of 1 - PPSV23) Pneumococcal 0-64 years Vaccine (1 of 1 - PPSV23) [place] Start: 2000 Pneumococcal 0-64 years Vaccine (1 of 2 - PPSV23) Pneumococcal 0-64 years Vaccine (1 of 2 - PPSV23) [facility] Start: 2000 Pneumococcal Vaccine: Pediatrics (0 to 5 Years) and At-Risk Patients (6 to 64 Years) (1 of 2 - PCV) Pneumococcal Vaccine: Pediatrics (0 to 5 Years) and At-Risk Patients (6 to 64 Years) (1 of 2 - PCV) [facility] Start: 10-23-1999 COVID-19 Vaccine (1) COVID-19 Vaccine (1) [facility] Start: 10-23-1995 MMR Vaccines (1 of 1 - Standard series) MMR Vaccines (1 of 1 - Standard series) [facility] Start: 10-23-1995 Varicella vaccination Varicella Vaccines (1 of 2 - 2-dose childhood series) [facility] Start: 10-23-1995 Varicella vaccine (1 of 2 - 2-dose childhood series) Varicella vaccine (1 of 2 - 2-dose childhood series) [facility] Start: 04-22-1995 COVID-19 Vaccine (#1) COVID-19 Vaccine (#1) [facility] Start: 1994 Hepatitis B vaccination Hepatitis B (HBV) Vaccine (1 of 3 - 3-dose series) [facility] Start: 1994 Hepatitis B Vaccines (1 of 3 - 3-dose series) Hepatitis B Vaccines (1 of 3 - 3-dose series) [facility] Start: 1994 Hepatitis C screening Hepatitis C screen [place], [place] Ambulatory ECG [facility] Bacteria identified in Blood by Culture [facility] Work Phone: Breath hydrogen/meth ane test BREATH TEST - LACTULOSE Procedures Routine Bloating Belching 1 Occurrences starting 10/16/2024 [facility] Work Phone: Comment on above: 1 Occurrences starting 10/16/2024 CBC W Auto Different ial panel - Blood [facility] End: 08-11-2022 CT Abdomen WO contrast [facility] Work Phone: Comment on above: Once for 1 Occurrences starting 08/12/19 23 until 08/11/2022 ECG 12 lead - CLINIC PERFORMED ECG 12 lead - CLINIC PERFORMED CV ECG Routine Shortness of breath 04/20/2022 9:24 AM EDT [facility] EKG 12 Lead - Chest Pain EKG 12 Lead - Chest Pain ECG STAT 05/10/2019 11:09 AM EDT [place] End: 02-27-2020 Hemoglobin Fractionation Profile Hemoglobin Fractionation Profile Lab Routine care, antepartum 1 Occurrences starting 02/27/2020 until 02/27/2020 [place] Comment on above: 1 Occurrences starting 02/27/2020 until 02/27/2020 Hemoglobin Fractiona tion Profile Hemoglobin Fractionation Profile Lab Routine care, antepartum 02/27/2020 2:25 PM EST [place] End: 02-27-2020 Hepatitis B Surface Antigen Hepatitis B Surface Antigen Lab Routine care, antepartum 1 Occurrences starting 02/27/2020 until 02/27/2020 [facility]: [facility] Occurrences starting 02/27/2020 until 02/27/2020 Hepatitis B Surface Antigen Hepatitis B Surface Antigen Lab Routine care, antepartum 02/27/2020 2:25 PM [facility] End: 02-27-2020 Hepatitis C Antibody Hepatitis C Antibody Lab Routine care, antepartum 1 Occurrences starting 02/27/2020 until 02/27/2020 [facility] Comment on above: 1 Occurrences starting 02/27/2020 until 02/27/2020 Hepatitis C Antibody Hepatitis C Antibody Lab Routine care, antepartum 02/27/2020 2:25 PM [facility] End: 02-27-2020 HIV Screen HIV Screen Lab Routine care, antepartum 1 Occurrences starting 02/27/2020 until 02/27/2020 [facility] Comment on above: 1 Occurrences starting 02/27/2020 until 02/27/2020 HIV Screen HIV Screen Lab R outine care, antepartum 02/27/2020 2:25 PM [facility] IgG, IgA, IgM IgG, IgA, IgM La b Routine Anemia, unspecified Chronic kidney disease, stage 2 (mild) Ordered: 01/25/2022 [facility] Comment on above: Ordered: 01/25/2022 IgG, IgA, IgM IgG, IgA, IgM La b Routine Neuropathy Ordered: 12/12/2024 [facility] Comment on above: Ordered: 12/12/2024 Immunofixation Electrophoresis Immunofixation Electrophoresis Lab Routine Anemia, unspecified Chronic kidney disease, stage 2 (mild) Ordered: 01/25/2022 [employer] [facility] Comment on above: Ordered: 01/25/2022 Immunofixation Electrophoresis Immunofixation Electrophoresis Lab Routine Neuropathy Ordered: 12/12/2024 [employer] [facility] Comment on above: Ordered: 12/12/2024 End: 05-11-2021 MG Cancer Risk Survey [facility] Work Phone: Comment on above: Once for 1 Occurrences starting 05/12/19 until 05/11/2021 Mullerian inhibiting substance [Mass/volume] in Serum or Plasma [facility] End: 11-03-2024 Nerve conduction test with EMG [facility] [employer] Work Phone: Comment on above: Once for 1 Occurrences starting 11/04/19 until 11/03/2024 OUTSIDE PROCEDURE SCAN OUTSIDE P ROCEDURE SCAN Procedures Ordered: 04/24/2022 [facility] Comment on above: Ordered: 04/24/2022 OUTSIDE PROCEDURE SCAN OUTSIDE P ROCEDURE SCAN Procedures Ordered: 04/28/2022 [facility] Comment on above: Ordered: 04/28/2022 OUTSIDE PROCEDURE SCAN OUTSIDE P ROCEDURE SCAN Procedures Ordered: 05/22/2022 [facility] Comment on above: Ordered: 05/22/2022 OUTSIDE PROCEDURE SCAN OUTSIDE P ROCEDURE SCAN Procedures Ordered: 05/26/2022 [facility] Comment on above: Ordered: 05/26/2022 OUTSIDE PROCEDURE SCAN OUTSIDE P ROCEDURE SCAN Procedures Ordered: 03/10/2022 [facility] Comment on above: Ordered: 03/10/2022 OUTSIDE PROCEDURE SCAN OUTSIDE P ROCEDURE SCAN Procedures Ordered: 07/24/2022 [facility] Comment on above: Ordered: 07/24/2022 OUTSIDE PROCEDURE SCAN OUTSIDE P ROCEDURE SCAN Procedures Ordered: 04/28/2022 [facility] Comment on above: Ordered: 04/28/2022 OUTSIDE PROCEDURE SCAN OUTSIDE P ROCEDURE SCAN Procedures Ordered: 09/05/2022 [facility] Comment on above: Ordered: 09/05/2022 OUTSIDE PROCEDURE SCAN OUTSIDE P ROCEDURE SCAN Procedures Ordered: 09/04/2022 [facility] Comment on above: Ordered: 09/04/2022 OUTSIDE PROCEDURE SCAN OUTSIDE P ROCEDURE SCAN Procedures Ordered: 01/16/2024 [facility] Comment on above: Ordered: 01/16/2024 OUTSIDE PROCEDURE SCAN OUTSIDE P ROCEDURE SCAN Procedures Ordered: 01/28/2024 [facility] Comment on above: Ordered: 01/28/2024 OUTSIDE PROCEDURE SCAN OUTSIDE P ROCEDURE SCAN Procedures Ordered: 05/13/2024 [facility] Comment on above: Ordered: 05/13/2024 OUTSIDE PROCEDURE SCAN OUTSIDE P ROCEDURE SCAN Procedures Ordered: 05/15/2024 [facility] Comment on above: Ordered: 05/15/2024 End: 11-23-2024 Porphyrins, urine, fractionated [employer] Work Phone: Comment on above: Once (Lab) for 1 Occurrences starting until 11/23/2024 End: 02-27-2020 RPR with FTA Relex RPR with FTA Relex Lab Routine care, antepartum 1 Occurrences starting 02/27/2020 until 02/27/2020 [facility] Comment on above: 1 Occurrences starting 02/27/2020 until 02/27/2020 RPR with FTA Relex RPR with FTA Relex Lab Routine care, antepartum 02/27/2020 2:25 PM EST [facility] SJOGREN'S ANTIBODIES (SS-A,SS-B) (QUEST) Sjogren's Antibodies (SS-A,SS-B) (Quest) Lab Routine Neuropathy Ordered: 12/12/2024 [employer] Work Phone: Comment on above: Ordered: 12/12/2024 End: 11-05-2024 US Head and neck soft tissue [employer] Work Phone: Comment on above: Once for 1 Occurrences starting 11/06/19 until 11/05/2024 [facility] [place] [facility] End: 10-24-2025 XR Abdomen Supine and Upright XR ABDOMEN 2V ROUTINE SUPINE W UPRIGHT/DECUB/CTL Radiology Routine LLQ pain Bloating 1 Occurrences starting 09/24/2024 until 10/24/2025 [facility] Comment on above: 1 Occurrences starting 09/24/2024 until 10/24/2025 Immunizations Immunization Date Immunization Notes Care Provider Lydia bower 11-05-2008 influenza virus vaccine, unspecified formulation Pretleidy Prajapati MD Work Phone: [employer] NEGATED: Highlighted row has not occurred!12-03-2024 influenza, injectable, madin joel canine kidney, preservative free Jeffry Rios DO Work Phone: [employer] Comment on above: Deferred: Patient Re fused NEGATED: Highlighted row has not occurred!09-17-2020 measles, mumps and rubella virus vaccine Valeria Maya MD Work Phone: [facility] NEGATED: Highlighted row has not occurred!09-17-2020 tetanus toxoid, reduced diphtheria toxoid, and acellular pertussis vaccine, adsorbed Valeria Maya MD Work Phone: [facility] Work Phone: Payers Date Payer Category Payer Medicaid [facility] [id number] 2024 Medicaid HMO [id number] 2024 Medicaid [id number] 2024 Self-pay [id number] 2021 Unknown [id number] 2016 Unknown [id number] 2015 Unknown [employer] [address] xxxxxxxxxxxx 2015-Present [phone] [address] [place] [address] xxxxxxxxxxxx [id number] 1994 Unknown [id number] Unknown [id number] [id number] Unknown [id number] 2.16.840.1.275285.3.579.2.462 Unknown [id number] [id number]2 Unknown [id number] 2.16.840.1.725683.3.579.2.462 Unknown [id number] 2.16.840.1.163085.3.579.2.462 Unknown [id number] 2.16.840.1.556529.3.579.2.462 Unknown [id number] 2.16840.1.422738.3.579.2.462 Unknown [id number] 2.16840.1.484433.3.579.2.462 Unknown [id number] 2.16840.1.318387.3.579.2.462 Unknown [id number] 2.840.1.814228.3.579.2.462 Unknown [id number] 2.840.1.157761.3.579.2.462 Unknown [id number] 2.840.1.289949.3.579.2.462 Unknown [id number] 2.16840.1.867279.3.579.2.462 Unknown [id number] 2.16840.1.247788.3.579.2.462 Unknown [id number] 2.840.1.037815.3.579.2.462 Unknown [id number] 2.16840.1.033168.3.579.2.462 Unknown [id number] 2.16840.1.718621.3.579.2.462 Unknown [id number] 2.16840.1.392329.3.579.2.462 Unknown [id number] 2.16840.1.503254.3.579.2.462 Unknown [id number] 2.16840.1.439090.3.579.2.462 Unknown [id number] [id number]2 Unknown [id number] [id number] Social History Date Type Detail Facility Start: 05-10-2019 End: 01-11-2022 Tobacco smoking status AKIS Never smoker [facility] Start: 05-10-2019 Alcohol intake Current drinke r of alcohol (finding) [place] Start: 11-30-2016 Alcohol Comment occiasionally- beer [place] Start: 1995 Sex Assigned At Not on file [place] Exposure to SARS-CoV -2 (event) Unable to assess [place] Start: 02-27-2020 End: 01-11-2022 Tobacco use and exposure Former user [place] End: 04-05-2016 History of tobacco use User of smokeless tobacco [place] Start: 02-27-2020 End: 12-16-2024 Alcohol intake Ex-drinker (finding) [place] Start: 12-13-2019 [place] Start: 11-30-2016 Alcohol Comment occiasionally- beer [facility] Work Phone: Start: 03-21-2021 End: 10-02-2022 Exposure to SARS-CoV-2 (event) Not sure [facility] Start: 02-14-2023 End: 05-09-2023 Tobacco smoking status AKIS Tobacco smoking consumption unknown [facility] Start: 04-20-2021 History SDOH Alcohol Frequency 2 [facility] Work Phone: Start: 04-20-2021 End: 01-03-2022 History SDOH Alcohol Std Drinks 1 [facility] Work Phone: Start: 04-20-2021 History SDOH Social Connections Phone 5 [facility] Work Phone: Start: 04-20-2021 History SDOH Social Connections Get Together 3 [facility] Work Phone: Start: 01-03-2022 History SDOH Alcohol Std Drinks 0 [facility] Start: 01-03-2022 End: 12-03-2024 History of Social function [facility] Start: 01-03-2022 End: 12-03-2024 Alcohol Use Disorder Identification Test - Consumption [AUDIT-C] [facility] How often to you hav e a drink containing alcohol? Never [facility] Start: 09-30-[address] inks containing alcohol do you have on a typical day? Patient does not drink [facility] Start: 04-17-2022 Gender identity Identifies as female gender (finding) [facility] Start: 1995 Sex Assigned At Female [facility] Start: 09-06-2021 Sex Female (finding) [facility] Start: 02-10-2021 Tobacco use and exposure Smoke less tobacco non-user [facility] (I/We) worried [facility] (my/our) food would run out before (I/we) got money to buy more. Never true [facility] In the past 12 month s, was there a time when you were not able to pay the mortgage or rent on time? No [facility] NEGATED: Highlighted row Not [facility] Medical Equipment Procedure Code Equipment Code Equipment Origin al Text Equipment Identifier Dates Lumpectomy, breast, with needle localization Ligation clip, metallic [id number] FDA Start: 08-19-2024 Lumpectomy, breast, with needle localization Ligation clip, metallic [id number] FDA Start: 08-19-2024 Goals Date Patient Goal Desired Activity /State Functional Status Date Assessment Result Facility 12-08-2024 Total score [AUDIT-C] 0 12/09/19 2:11 AM Tejal Partida RN [facility] 12-07-2024 Total score [AUDIT-C] 0 12/08/19 1:37 PM Ileana Baxter RN [facility] 10-30-2024 Total score [AUDIT-C] 0 10/31/19 10:52 PM Tejal Sabillon RN [facility] 10-28-2024 Patient Health Quest ionnaire 2 item (PHQ-2) [Reported] [facility] 10-28-2024 Total score [AUDIT-C] 0 10/29/19 7:47 AM EDT Ileana Oliva RN [facility] 10-27-2024 Total score [AUDIT-C] 0 10/28/19 2:00 AM EDT Zoe Owens RN [facility] 10-23-2024 Patient Health Quest ionnaire 2 item (PHQ-2) [Reported] [facility] 10-11-2024 Are you deaf, or do you have serious difficulty hearing No 10/11/2024 12:27 PM EDT Kinga Seaman RN No [facility] 10-11-2024 Are you blind, or do you have serious difficulty seeing, even when wearing glasses No 10/11/2024 12:27 PM EDT Kinga Seaman RN No [facility] 10-11-2024 Do you have serious difficulty walking or climbing stairs No 10/11/2024 12:27 PM EDT Kinga Seaman RN No [facility] 10-11-2024 Do you have difficul ty dressing or bathing No 10/11/2024 12:27 PM EDT Kinga Seaman RN No [facility] 10-11-2024 Because of a physica l, mental, or emotional condition, do you have difficulty doing errands alone such as visiting a physician's office or shopping No 10/11/2024 12:27 PM EDT Kinga Seaman RN No [facility] 10-07-2024 Total score [AUDIT-C] 0 10/08/19 3:13 PM EDT Ana Drake RN [facility] 10-05-2024 Total score [AUDIT-C] 0 10/06/19 9:28 PM ROMULOT Tejal No RN [facility] 10-05-2024 Total score [AUDIT-C] 0 10/06/19 2:08 PM EDT Ana Drake RN Counts Include [facility] Mental Status Date Assessment Result Facility 10-11-2024 Because of a physica l, mental, or emotional condition, do you have serious difficulty concentrating, remembering, or making decisions No 10/11/2024 12:27 PM EDT Kinga Seaman RN No [facility] 08-19-2024 Cognitive function Level Of Cons ciousness Awake;Alert;Appropriate [facility] Work Phone: 08-19-2024 Cognitive function Voice/Name [facility] Work Phone: Clinical Notes 09-17-2020 to 12-17-2024 Claire Lewis DO - 12/16/2024 9:45 AM Les Nelson MA - 12/16/2024 9:45 AM ESTAddendum Note - Peg Nelson MA - 12/16/2024 9:45 AM Elsy Cortez MD - 12/12/2024 9:30 AM EST Note Date & Type Note Facility 12-17-2024 Note HNO ID: [id number] Author: CARISA RODRIGUEZ MD Service: ? Author Type: Physician Type: Progress Notes Filed: 12/17/2024 17:55 Note Text: FUNCTIONAL MEDICINE INITIAL VISIT Patient: May Machelle The patient presents with chief complaint of POTS, irritable bowel, , evaluated previously by cardiology, PCP, GI An medical timeline approach was utilized to identify antecedents, triggers, and mediators contributing to current health concerns. Assessment and Plan: Using a systems biology approach and matching our assessment to the patient stated goals of care, we have detected historical evidence (antecedents, triggers, and mediators) contributing to POTs digestive issues . Assessment AND Plan 1. POTS (postural orthostatic tachycardia syndrome) (G90.A) - Diagnosis confirmed by positive tilt table test. - Trialed metoprolol, discontinued due to abdominal pain and dizziness; currently on propranolol. - Advised to continue support stockings. - Recommended gradual, graded exercise as tolerated. - Advised to avoid processed electrolyte drinks (e.g., Gatorade) and use natural alternatives (e.g., coconut water with salt and citrus). - Encouraged participation in shared medical appointments for POTS education and support. - Advised to discuss sleep study with volumetric weigher to address nocturnal tachycardia and fatigue. - Refer to mask inspector for dietary optimization and health motorcoach driver for stress management and graded exercise guidance. - Follow-up in 3 months to assess progress. 2. Nausea (R11.0) 3. Irritable bowel syndrome with both constipation and diarrhea (K58.2) - Chronic IBS with both constipation and diarrhea; nausea and abdominal pain may be exacerbated by POTS and dietary factors. - Advised to slowly increase dietary fiber and maintain regular bowel movements to support toxin elimination. - Recommended avoiding gluten due to family history of celiac disease. - Provided natural detox tips, including detox smoothie and bone broth recipes. - Advised to avoid artificial sweeteners and processed foods. - Refer to mask inspector for further dietary guidance. Life Style Prescription Nutrition/Food Plan Natural ways to detox: 1.Air quality in your house and work are important. Consider investing in a good quality air purifier to clean the air. The sun is a natural detoxifier, therefore consider opening the shades/blinds throughout the day as much as possible. Do not forget to routinely have your HVAC filter changed and investigate the highest grade possible if you can afford it. 4. Drink infused water daily: Some data suggests that the longer the infusion time (6-12 hours) with the peel or skin, the higher the antioxidant potential. 5. Eat organic as much as possible. Please visit the environmental working group to learn about fruits and veggies with the highest amount of toxins on them called the dirty dozen. EWG.org. Try to eat clean sources of meat as well. If you can not afford this, more vegetables than fruits are important to consume since they help up regulate your detoxification ability. 6. Get the free jonny: think dirty. It evaluates your personal care products and household products to make sure they are toxin free or low in toxins. Aim for a grade of 3 or less. 7. Eat the rainbow and use fresh and dried organic (preferred) spices such as: christiane, parsley, oregano, cilantro, chlorella, increase soluble fiber from leafy green and cruciferous vegetables and consider a daily detox smoothie (discuss with mask inspector). Detox: - Consider Dr. Ivanna Amaro's book on Whole Detox for guidance. In the book she has many recipes that you can use. I think the smoothies In the book is a good place to start. Here is one to consider: Rooty Shake By Ivanna Amaro and Lamar Onealro - 1 medium raw beets, cubed - 1/2 red apple in slices (peeled if not organic) - juice from one small lemon - 3-5 leaves of edmar or your favorite leafy vegetables - 1 scoop of protein powder of your choice (rice, hemp, pea) - 1/2 tbsp of flax seeds or flax meal - 1/8 tsp of turmeric - dash pepper - 1/2 cup water Blend, add more water if needed. Detox Broth: Makes 6 cups 10 cups filtered water (at least by Kenna or better water filter, now's your excuse to buy one!) 1/2 cup dried shiitake mushrooms 1/2 turnip, chopped 1 medium sweet potato, chopped 1-2 celery stalks, chopped 2 parsnips, chopped 2 leeks, rinsed well, chopped* 2 cups cabbage or kale, rinsed well, chopped, packed Chopped parsley Fresh stef Dried sweet basil Dried oregano Spritz of lemon1. Fill a large stockpot with the filtered water. Add chopped veggies and herbs and bring to a boil. Lower the heat and simmer for 2 hours.2. Strain and drink warm 2 to 3 cups a day as a nutritional and filling snack. Add a squeeze of lemon if you like.3. Store in a tightly sealed glass container in the (more content not included)... [facility] 12-16-2024 History of Present illness Narrative Reason for Visit: Female Bladder Pain Syndrome DATE OF LAST VISIT: 2022 Machelle is a 29 y.o. female presenting for follow up. She has had intermittent flares of her bladder pain over the last 2 years that have been typically mild and have not needed specific intervention to resolve. Recently, she was diagnosed with POTS, and has noticed more bladder related symptoms. She thought she had a urinary tract infection due to urgency and frequency, but this was negative. She also had a pelvic ultrasound that was normal and a CT of her abdomen and pelvis that were normal. She has been tracking her ovulation and did ovulate within the last few days, this corresponded to a recent episode of left lower quadrant pain. She has had upper and lower endoscopy that were normal. She is mostly bothered by urgency, frequency, and a feeling of incomplete bladder emptying. No hematuria or dysuria. Female Bladder Pain Syndrome Treatment history: Current treatment Previous treatment First Line [x] General Relaxation/Stress Management [] Pain Management (Tylenol, NSAIDs) [] Self-care/Behavioral Modification [x] General Relaxation/Stress Management [] Pain Management (Tylenol, NSAIDs) [] Self-care/Behavioral Modification Second Line [] Pelvic Physical Therapy [] Oral Medications [] Amitriptyline [] Cimetidine [] Hydroxyzine [] PPS ([place]) [] Bladder Instillations [] Frequency: x [] Pelvic Physical Therapy [] Oral Medications [] Amitriptyline [] Cimetidine [x] Hydroxyzine - tried 25 mg dose rx'ed by another provider but it made her very tired [] PPS ([place]) [] Bladder Instillations [] Frequency: x Third Line [] Cystoscopy with Hydrodistention Dates: x [] Treatment of Hunner's Lesions Type: NA [] Cystoscopy with Hydrodistention Dates: x [] Treatment of Hunner's Lesions Type: NA Fourth Line [] Intradetrusor Botox Dates: NA [] Neuromodulation Dates: NA [] Intradetrusor Botox Dates: NA [] Neuromodulation Dates: NA Fifth Line [] Cyclosporine A [] Cyclosporine A Sixth Line [] Diversion with or without cystectomy [] Substitution cystoplasty [] Diversion with or without cystectomy [] Substitution cystoplasty Problem List[1] Current Medications[2] Review of Systems Genitourinary: Positive for frequency and urgency. All other systems reviewed and are negative. EXAM BP 107/72 (BP Location: Right arm, Patient Position: Sitting, BP Cuff Size: Adult long) Pulse 92 Ht 5' 6" (1.676 m) Wt 164 lb (74.4 kg) BMI 26.47 kg/m Physical Exam Constitutional: She is oriented to person, place, and time. NAD Cardiovascular: Intact distal pulses Pulmonary/Chest: No respiratory distress. Abdominal: Nonsidstended Skin: Skin is warm and dry. No rash noted. She is not diaphoretic. No erythema. No pallor. Neuro/Psychiatric: She has a normal mood and affect. Her behavior is normal. Judgment and thought content normal. Void: 100mL Bladder Scan PVR: 120mL IMPRESSION/PLAN: 1. Interstitial cystitis 2. Pelvic pain 3. Feeling of incomplete bladder emptying Female Bladder Pain Syndrome, chronic problem with acute exacerbation AUA algorithm reviewed with the patient. First-line: Start symptoms diary, monitor for triggers/exacerbating factors. Second line: Referral placed to pelvic floor physical therapy per her preference. She would also like to try 10 mg dose of hydroxyzine as the 25 mg dose was too sedating. Prescription sent to pharmacy on file. Would hold off on bladder installations until her urodynamics is completed given PVR of 120 mL today. Third line: Does not feel ready for cystoscopy hydro at this point, but did briefly discuss as an option in the future. Fourth line: Not applicable fifth line: NA sixth line: NA 2. Feeling of incomplete bladder emptying, new problem - void 100mL, PVR 120mL by US - return for UDS - referral to pelvic PT Plan for follow-up in 3 months, sooner prn. All questions answered and she feels comfortable with the plan [1] Patient Active Problem List Diagnosis Other specified hypothyroidism Breast cyst, left Lactating mother Asthma (HHS/HCC) Malaise Tremulousness Palpitations Migraine without aura and without status migrainosus, not intractable Chronic daily headache Chest pain Tachycardia Dizziness Paroxysmal atrial fibrillation (HCC) Dysautonomia (HCC) Autonomic dysfunction [2] Current Outpatient Medications Medication Sig Dispense Refill propranolol (Inderal) 10 MG tablet every 12 hours. aluminum-magnesium hydroxide-simethicone (Maalox MAX) 400-400-40 MG/5ML suspension Take 10 mL by mouth every 6 hours as needed for indigestion or heartburn for up to 10 days. 100 mL 0 busPIRone (Buspar) 7.5 MG tablet Take 7.5 mg by mouth 3 times daily. hydrOXYzine HCl (Atarax) 10 MG tablet Take 1 PO at bedtime for bladder pain 30 tablet 3 metoprolol succinate XL (Toprol-XL) 25 MG 24 hr tablet Take 1 tablet (25 mg) by mouth daily. Do not crush or chew. 30 tablet 5 pantoprazole (ProtoNix) 20 MG EC tablet Take 2 tablets (40 mg) by mouth daily for 20 days. Do not crush, chew, or split. 40 tablet 0 No current facility-administered medications for this visit. Mathematics Faculty Member was offered to the patient for exam. Patient declined offer of features reporter documented in this encounter [facility] 12-16-2024 Miscellaneous Notes Addended by: PEG NELSON on: 12/16/2024 10:38 AM Modules accepted: Orders documented in this encounter [facility] 12-16-2024 Note Addended by: PEG NELSON on: 12/16/2024 10:38 AM Modules accepted: Orders [facility] 12-16-2024 Note Addended by: PEG NELSON on: 12/16/2024 10:38 AM Modules accepted: Orders [facility] 12-15-2024 Telephone encounter Note S: Patient spoke with [facility] nurse regarding urinary symptoms. B: Onset of symptoms/concern 12/15/2024. A: Patient reports urinary urgency and pain with voiding x2 days, states at first she was having pain in general area and today is when pain with urination developed. Patient denies fevers. Patient requesting an appointment at this time. COVID screen negative. R: Appointment scheduled on 12/16/[address] Lewis, insurance coverage verified. Discussed increasing fluids for hydration. Patient understands care advice. No further needs at this time. Patient instructed to call back with new or worsening symptoms. Reason for Disposition Urinating more frequently than usual (i.e., frequency) OR new-onset of the feeling of an urgent need to urinate (i.e., urgency) Protocols used: Urinary Wsipokgr-EAKPI-MS [facility] 12-15-2024 Miscellaneous Notes S: Patient spoke with [facility] nurse regarding urinary symptoms. B: Onset of symptoms/concern 12/15/2024. A: Patient reports urinary urgency and pain with voiding x2 days, states at first she was having pain in general area and today is when pain with urination developed. Patient denies fevers. Patient requesting an appointment at this time. COVID screen negative. R: Appointment scheduled on 12/16/[address] Lewis, insurance coverage verified. Discussed increasing fluids for hydration. Patient understands care advice. No further needs at this time. Patient instructed to call back with new or worsening symptoms. Reason for Disposition Urinating more frequently than usual (i.e., frequency) OR new-onset of the feeling of an urgent need to urinate (i.e., urgency) Protocols used: Urinary [id number]-SUCAE-FD documented in this encounter [facility] 12-12-2024 History of Present illness Narrative Department of Neurological Sciences Visit Note CHIEF COMPLAINT: Chief Complaint Patient presents with Follow-up Migraine Main diagnoses: Migraine without aura, non-intractable. HISTORY OF PRESENT ILLNESS: The patient is a 29 y.o. female today presents to the Neurology clinic with history of migraine without aura, non-intractable as well as, generalized paresthesias in both upper and lower extremities as well as in the trunk. In addition, patient complained of weakness and muscle atrophy in both upper and lower extremitie and the neck muscles. Today patient presented to the neurology clinic for a follow-up visit. Patient report that her headaches appear to be well-controlled. Currently appears that her main problem is the fact that patient has generalized lysed weakness myalgias and paresthesias. Patient have very extensive workup including MRI of the brain, MRI cervical spine, EMG of the left upper and lower extremity, extensive laboratory workup., So far patient only positive findings is the present of left peroneal neuropathy mainly sensory and mild. There is no evidence of peripheral neuropathy, radiculopathy, myopathy. Patient also reports that she is not exercising because of her muscle pain. Patient denied any other neurological symptoms. Patient reports that she had numbness in the toes as well as soles of both feet. Patient also had decreased pinprick and light touch in the fingertips of both hands. It is possible that patient may have small fiber neuropathy. Patient also complaining of diffuse myalgia. Secundary diagnoses: Paresthesias and generalized weakness. Medications: Current Medications[1] Allergies: Nitrofurantoin, Alprazolam, and Quetiapine Social History: Social History Socioeconomic History Marital status: Spouse name: Not on file Number of children: Not on file Years of education: Not on file Highest education level: Not on file Occupational History Not on file Tobacco Use Smoking status: Never Smokeless tobacco: Former Quit date: 04/05/2016 Vaping Use Vaping status: Never Used Substance and Sexual Activity Alcohol use: Not Currently Drug use: No Comment: caffiene: none Sexual activity: Yes Other Topics Concern Not on file Social History Narrative to Emile Nielson) since 07/21. NS or drinker, no children. 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 Social Drivers of Health Financial Resource Strain: Low Risk (04/20/2021) Received from [facility] Overall Financial Resource Strain (CARDIA) Difficulty of Paying Living Expenses: Not hard at all Food Insecurity: No Food Insecurity (10/10/2024) Received from [facility] Hunger Vital Sign Worried About Running Out of Food in the Last Year: Never true Ran Out of Food in the Last Year: Never true Transportation Needs: No Transportation Needs (12/03/2024) PRAPARE - Transportation Lack of Transportation (Medical): No Lack of Transportation (Non-Medical): No Physical Activity: Sufficiently Active (04/20/2021) Received from [facility] Exercise Vital Sign Days of Exercise per Week: 5 days Minutes of Exercise per Session: 30 min Stress: No Stress Concern Present (04/20/2021) Received from [facility] [place] [employer] - Occupational Stress Questionnaire Feeling of Stress : Not at all Social Connections: Moderately Integrated (04/20/2021) Received from [facility] Social Connection and Isolation Panel [NHANES] Frequency of Communication with Friends and Family: More than three times a week Frequency of Social Gatherings with Friends and Family: Twice a week Attends Mosque Services: More than 4 times per year Active Member of Clubs or Organizations: No Attends Club or Organization Meetings: Never Marital Status: Intimate Partner Violence: Not At Risk (12/03/2024) Humiliation, Afraid, Rape, and Kick questionnaire Fear of Current or Ex-Partner: No Emotionally Abused: No Physically Abused: No Sexually Abused: No Housing Stability: Low Risk (12/03/2024) Housing Stability Vital Sign Unable to Pay for Housing in the Last Year: No Number of Times Moved in the Last Year: 0 Homeless in the Last Year: No Family History: Family History[2] REVIEW OF SYSTEMS: Review of Systems Constitutional: Negative for activity change, appetite change and chills. HENT: Negative for ear pain, facial swelling, mouth sores, rhinorrhea, sinus pressure, sinus pain and tinnitus. Eyes: Negative for photophobia, pain and visual disturbance. Respiratory: Negative for cough and chest tightness. Gastrointestinal: Negative for abdominal pain, nausea and vomiting. Endocrine: Negative for cold intolerance and heat intolerance. Genitourinary: Negative for difficulty urinating. Musculoskeletal: Positive for neck pain. Allergic/Immunologic: Negative for food allergies. Neurological: Positive for dizziness, tremors, weakness and headaches. Negative for syncope, speech difficulty and numbness. Hematological: Does not bruise/bleed easily. Psychiatric/Behavioral: Negative for confusion, decreased concentration and hallucinations. The patient is nervous/anxious. All other systems reviewed and are negative. PHYSICAL EXAM: Vitals: BP 116/70 Pulse 100 Ht 5' 6" (1.676 m) Wt 155 lb (70.3 kg) BMI 25.02 kg/m Physical Exam Vitals and nursing note reviewed. Constitutional: Appearance: Normal appearance. She is normal weight. HENT: Head: Normocephalic. Nose: Nose normal. Eyes: Extraocular Movements: Extraocular movements intact. Conjunctiva/sclera: Conjunctivae normal. Pulmonary: Effort: Pulmonary effort is normal. Musculoskeletal: General: Normal range of motion. Cervical back: Normal range of motion. Skin: General: Skin is warm and dry. Neurological: General: No focal deficit present. Mental Status: She is alert and oriented to person, place, and time. Mental status is at baseline. Motor: Weakness and tremor present. Gait: Gait is intact. Comments: Slight left sided weakness. Tremor when testing strength with hand pump assembler. In addition there is decreased pinprick and light touch in both hands and well in the sole of both feet. Patient Positive Romberg sign.. In addition on palpation patient had tenderness in the tendons of the muscles in both upper and lower extremities. Psychiatric: Mood and Affect: Mood normal. Behavior: Behavior normal. Thought Content: Thought content normal. Judgment: Judgment normal. Impression: Diagnosis Plan 1. Neuropathy Sjogren's Antibodies (SS-A,SS-B) ([facility]) MICHELLE Angiotensin converting enzyme (Sendout) Immunofixation Electrophoresis Sedimentation rate, automated MICHELLE Angiotensin converting enzyme (Sendout) Immunofixation Electrophoresis Sedimentation rate, automated 2. Myofascial pain Ambulatory referral to Physical Therapy Plan: 1. First, we are going to complete laboratory workup for small fiber neuropathy. If laboratory workup is negative probably patients diagnosis will be fibromyalgia. 2. In addition we are going to refer patient to physical therapy for myofascial release exercises. 3. Patient is still breast-feeding therefore will not be able to start patient on any medications for hyperalgesia and paresthesias to his gabapentin. 4. Patient will return to the neurology clinic in 2 to 3 months for further evaluation thank you Boston Cortez MD [1] Current Outpatient Medications Medication Sig Dispense Refill aluminum-magnesium hydroxide-simethicone (Maalox MAX) 400-400-40 MG/5ML suspension Take 10 mL by mouth every 6 hours as needed for indigestion or heartburn for up to 10 days. 100 mL 0 busPIRone (Buspar) 7.5 MG tablet Take 7.5 mg by mouth 3 times daily. metoprolol succinate XL (Toprol-XL) 25 MG 24 hr tablet Take 1 tablet (25 mg) by mouth daily. Do not crush or chew. 30 tablet 5 pantoprazole (ProtoNix) 20 MG EC tablet Take 2 tablets (40 mg) by mouth daily for 20 days. Do not crush, chew, or split. 40 tablet 0 No current facility-administered medications for this visit. [2] Family History Problem Relation Name Age of Onset Ovarian cancer Neg Hx Diabetes Mother 35.00 on insulin at > 50 Lung cancer Maternal Grandfather Diabetes Maternal Cousin Gayle Colon cancer Maternal Grandmother 80.00 No Known Problems Paternal Grandmother Thyroid cancer Maternal Cousin Gayle Pancreatic cancer Mother Breast cancer Neg Hx No Known Problems Paternal Grandfather Other ([id number]) Father Danya 54.00 MVA in 2011 No Known Problems Sister Prostate cancer Maternal Grandfather documented in this encounter [facility] 12-08-2024 Note HNO ID: [id number] Author: MARIE MATHIS PA-C Service: ? Author Type: Physician Boiler Washer Type: Progress Notes Filed: 12/08/2024 10:09 Note Text: CHIEF COMPLAINT: Patient presents with: Abdominal Pain HPI May Machelle is a 29 year old female here today for Abdominal Pain. Seen previously by Tariq Singleton CNP. EGD unremarkable. Seen in ER today. CT, labs unremarkable, advised to f/u with GI. Reports 2.5 months of worsening abdominal pain. She describes the pain as a band-like sensation following the lower margins of both costal arches, initially localized but now diffuse throughout the abdomen and radiating up the esophagus. Pain is worsened by eating and with movement or standing, and is associated with early satiety and discomfort with swallowing. She rates her current pain as 7-8/10. She reports significant nausea, frequent belching, and a sensation of dry heaving, but denies emesis. She has been unable to tolerate more than small amounts of bland food, and has lost approximately 1 lb per day over the past 5 days, with a total weight loss of 5 lbs. She reports a sensation of abdominal pressure, but notes her abdomen appears sunken rather than distended. Bowel habits include a single, generally normal bowel movement each morning, with occasional episodes of diarrhea, most recently on Sunday, accompanied by severe abdominal pain and near-syncope. She reports a sensation of incomplete evacuation, but attributes the low stool volume to minimal oral intake. She notes that diarrhea may be associated with pain flares, but is not consistently post-prandial. She has a history of norovirus infection last year, confirmed by stool testing. She has trialed pantoprazole, sucralfate, hyoscyamine, and famotidine, with no significant relief. She is currently taking pantoprazole 20 mg daily, and has discontinued sucralfate and hyoscyamine. She reports dizziness, but is unsure if this is medication-related. She has Zofran at home from a prior prescription during . She is currently her infant, born in 2024. She has no family history of cholecystectomy. - Stool testing 2023: Norovirus positive. CT AP 12/2024 Impression 1. No evidence of acute infectious or inflammatory process in the abdomen or pelvis. 2. The liver demonstrates generalized diminished attenuation as compared to the spleen, which may be compatible with hepatic steatosis; correlate with LFTs. EGD 11/2024 Impression: - Z-line regular, 39 cm from the incisors. - Normal esophagus. - Normal stomach. Biopsied. - Normal duodenal bulb, second portion of the duodenum and third portion of the duodenum. Biopsied. Clip (MR conditional) was placed. 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 - Biopsies were taken with a cold forceps for evaluation of eosinophilic esophagitis. Component Resulting Agency FINAL DIAGNOSIS A. Small bowel, biopsy: - Small bowel mucosa with no significant pathologic changes. B. Stomach, biopsy: - Antral mucosa with mild chronic inactive gastritis. - See comment. C. Distal esophagus, biopsy: - Squamous mucosa with no significant pathologic changes. D. Proximal esophagus, biopsy: - Squamous mucosa with no significant pathologic changes. Current Outpatient Medications Medication Sig metoprolol succinate ER (TOPROL XL) 25 mg 24 hr tablet Take 25 mg by mouth. sucralfate (CARAFATE) 100 mg/mL suspension Take 10 mL by mouth before meals and at bedtime. hyoscyamine sublingual (LEVSIN/SL) 0.125 mg Dissolve 1 tablet under the tongue every 4 hours as needed (abdominal pain). pantoprazole DR (PROTONIX) 20 mg tablet Take 20 mg by mouth. No current facility-administered medications for this visit. ALLERGIES Allergen Reactions Alprazolam Unknown Quetiapine Fumarate Unknown SOCIAL HISTORY[1] PAST MEDICAL HISTORY Diagnosis Date Generalized anxiety disorder PAST SURGICAL HISTORY Procedure Laterality Date BREAST LUMPECTOMY HX 08/2024 COLONOSCOPY 03/2024 EGD W/O [facility] SPEC VARICIES INJ 11/18/2024 TONSILLECTOMY AND ADENOIDECTOMY FAMILY HISTORY Problem Relation Age of Onset Colon Cancer Maternal Grandmother REVIEW OF SYSTEMS Review of Systems Constitutional: Positive for activity change, appetite change, fatigue and unexpected weight change. HENT: Positive for sore throat and trouble swallowing. Respiratory: Positive for cough, chest tightness and shortness of breath. Cardiovascular: Positive for chest pain. Gastrointestinal: Positive for abdominal pain, diarrhea and nausea. Change in bowel habits, Gas, Heartburn All other systems reviewed and are negative. PHYSICAL EXAM BP 112/70 Pulse 97 Ht 167.6 cm (5' 6") Wt 71.7 kg (158 lb) SpO2 99% BMI 25.50 kg/m? Physical Exam Constitutional: General: She is not in acute distress. Appearance: Normal appearance. She is normal weight. She is not ill-appearing, toxic-appearing or diaphoretic (more content not included)... [facility] 12-08-2024 Hospital Discharge instructions Jamal Almaguer MD - 12/08/2024 2:52 AM EST You have been seen in the Emergency Department for recurrent abdominal discomfort. Your labs show dehydration which we have corrected in the emergency department. Otherwise, your blood work is excellent. Your CAT scan shows no surgical pathology or infectious process. I recommend you eat a bland diet such as the BRAT (Bananas, Rice, Applesauce, [place]) diet, and continue taking your antacid medications as prescribed by your can handler After a visit to the Emergency Department, follow-up is important. You should follow-up with your can handler at your earliest opportunity to make sure you are feeling better; at that time they may decide that additional diagnostic testing and treatment are necessary as they see fit. Return to the ED if you develop worsening abdominal pain, unrelenting nausea or vomiting or diarrhea, bloody stools, black stools, vomiting blood, fevers, chills, you feel weak feel faint or pass out, you cannot eat or drink, or if any new signs, symptoms, or concerns arise. The following attachments cannot be sent through Care Everywhere.Severe Abdominal Pain (Gambian)Acid Reflux, Adult and Adolescent ED (Gambian)IBS Diet (Gambian)Irritable Bowel Syndrome Discharge Instructions (Gambian)documented in this encounter [facility] 12-08-2024 Emergency department Note EMERGENCY DEPARTMENT ENCOUNTER Pt Name: Dulce Maria Carty Birthdate 1995 Date of evaluation: 12/08/2024 ED Provider: Jamal Almaguer MD CHIEF COMPLAINT Chief Complaint Patient presents with Abdominal Pain Nausea HISTORY OF PRESENT ILLNESS (Location/Symptom, Timing/Onset, Context/Setting, Quality, Duration, Modifying Factors, Severity) Note limiting factors. I wore appropriate PPE for the entirety of this encounter. HPI Dulce Maria Carty is a 29 y.o. who presents to the emergency department chronic abdominal pain especially epigastric pain, nausea, anorexia Patient has a history of IBS and GERD. She takes sucralfate and 20 mg daily pantoprazole every morning religiously. She sees Tariq Singleton of the [facility] gastroenterology division and had an EGD 3 weeks ago which was negative. She has also had a colonoscopy in the past which was also negative according to patient. She has a history of chronic tachycardia and POTS and autonomic dysfunction for which she is on metoprolol. So long as she takes the metoprolol, the heart rate and blood pressure are within normal limits and this is the case today. Also has history of asthma and migraines, but these are not bothering her right now. Does not smoke does not drink. Does not use marijuana. Family history of pancreatic cancer and diabetes, no personal history of same. Patient has longstanding issues with GI problems and palpitations/POTS disease. This is her 12th visit to the ED in the last 9 weeks for these problems. Tonight the issue is GI, not cardiac related. There is no chest pain there are no palpitations there is no shortness of breath there is no syncope or presyncope. Heart rate is normal. Patient says that for the past several weeks, but especially over the last 3 days, she has had intermittent epigastric and periumbilical and left upper quadrant cramping pain, that is worse with food. It can be any type of food, some times eating something is bland/benign as bread sets off her abdominal discomfort. She is belching frequently. Pain is crampy and intermittent. Endorses nausea denies vomiting. Endorses intermittent diarrhea as well. No hematochezia, no melena. No hematemesis. No jaundice no scleral icterus. No vaginal bleed no vaginal discharge. No dysuria urgency frequency or hematuria. No pelvic pain. Patient initially registered as flank pain in the emergency department, however she is describing a crampy diffuse anterior abdominal pain worse in the epigastrium. Of note, patient was seen on 12/07/2024 in the emergency department for the same symptoms, however at that time no labs were performed and no imaging was performed and no medications were given. Patient was discharged after discussing situation with ED physician. Now returns with symptoms unchanged. Nursing Notes were reviewed. Limitations to history: None Outside historians: None REVIEW OF SYSTEMS Review of Systems Pertinent positives and negatives as per HPI PAST MEDICAL HISTORY Medical History[1] SURGICAL HISTORY Surgical History[2] CURRENT MEDICATIONS Previous Medications ALUMINUM-MAGNESIUM HYDROXIDE-SIMETHICONE (MAALOX MAX) 400-400-40 MG/5ML SUSPENSION Take 10 mL by mouth every 6 hours as needed for indigestion or heartburn for up to 10 days. BUSPIRONE (BUSPAR) 7.5 MG TABLET Take 7.5 mg by mouth 3 times daily. METOPROLOL SUCCINATE XL (TOPROL-XL) 25 MG 24 HR TABLET Take 1 tablet (25 mg) by mouth daily. Do not crush or chew. PANTOPRAZOLE (PROTONIX) 20 MG EC TABLET Take 20 mg by mouth every morning (before breakfast). PANTOPRAZOLE (PROTONIX) 20 MG EC TABLET Take 2 tablets (40 mg) by mouth daily for 20 days. Do not crush, chew, or split. MV-MIN-FE FUM-FA-DHA ( 1 PO) Take by mouth. PROBIOTIC PRODUCT (PROBIOTIC DAILY PO) Take by mouth. ALLERGIES Nitrofurantoin, Alprazolam, and Quetiapine FAMILY HISTORY Family History[3] SOCIAL HISTORY Social History[4] PHYSICAL EXAM ED Triage Vitals Temp Heart Rate Resp BP -- 12/08/2420912/08/2420912/08/24212 88 16 (!) 127/90 SpO2 Temp src Heart Rate Source Patient Position 12/08/24209 -- -- -- 99 % BP Location FiO2 (%) -- -- Physical Exam General: WDWN adult in NAD. Non-toxic appearing HENT: Head NCAT, EOMI with no erythema, swelling or discharge. No scleral icterus TMs normal Nares normal oropharyngeal mucus membranes somewhat dry, pink, no exudate Neck: Full ROM, supple, no rigidity Cardio: RRR, heart rate in the 80s, normotensive nl s1 s2 no m/r/g, extremities warm, dry, well perfused, non-edematous 2+ bilateral radial pulses, 2+ bilateral DP pulses Lungs: CTAB, no wheezes, rales, rhonchi, normal work of breathing Abdomen: Soft, tender to palpation throughout the entire abdomen. Worst of the tenderness appears to be in the left upper quadrant and the epigastrium. Minimal if any tenderness in the right upper quadrant. Minimal if any tenderness in the right lower quadrant. There is tenderness to palpation in the left lower quadrant in the periumbilical region. Negative Giron sign, negative McBurney's point tenderness. ND, non-rigid, BS x 4 hypoactive. 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 No evidence of acute infectious or inflammatory process in the abdomen or pelvis. 2. The liver demonstrates generalized diminished attenuation as compared to the spleen, which may be compatible with hepatic steatosis; correlate with LFTs. Report Dictated on Electronically Signed By: Cayden Fregoso MD Electronically Signed Date/Time: 12/08/2024 3:57 AM EST LABS: Labs Reviewed COMPREHENSIVE METABOLIC PANEL - Abnormal Result Value SODIUM 141 POTASSIUM 4.1 CHLORIDE 108 (*) CARBON DIOXIDE 24 ANION GAP 9 UREA NITROGEN 16 CREATININE 0.90 GLUCOSE 94 CALCIUM 9.5 AST (SGOT) 14 ALT 15 ALKALINE PHOSPHATASE 66 ALBUMIN 4.4 BILIRUBIN, TOTAL 0.6 TOTAL PROTEIN 6.7 eGFR 88.4 COMPLETE URINALYSIS WITH REFLEX TO CULTURE - Abnormal Color, Urine Light Yellow Clarity, Urine Clear pH, Urine 5.5 Leukocytes, Urine Negative Nitrite, Urine Negative Protein, Urine Negative Glucose, Urine Normal Bilirubin, Urine Negative Ketones, Urine Trace (*) Urobilinogen, Urine Normal Blood, Urine Negative SPECIFIC GRAVITY OF URINE (NUMERIC) 1.021 Narrative: A specimen with <=10 WBC is not consistent with inflammation. This specimen will not reflex to a urine culture. SARS-COV-2, FLU A/B, AND RSV COMBO - Normal SARS-CoV-2 Not Detected Respiratory Syncytial Virus Not Detected Influenza A Not Detected Influenza B Not Detected Narrative: Methodology: real-time, RT-PCR The SARS-CoV-2, Flu A/B, and RSV Combo assay is intended for in vitro diagnostic use under the FDA Emergency Use Authorization (EUA). This test has not been FDA cleared or approved. In compliance with this authorization, please visit www.fda.gov/media/542917/download or www.fda.gov/[employer]/766909/download to access the applicable information sheets. CBC WITH AUTO DIFFERENTIAL - Normal Auto WBC 5.9 RBC 5.19 Hemoglobin 14.7 Hematocrit 43.6 MCV 84.0 MCH 28.3 MCHC 33.7 RDW 11.8 Platelets 195 MPV 10.1 nRBC 0.0 Neutrophils Relative 59.5 Lymphocytes Relative 30.2 Monocytes Relative 7.1 Eosinophils Relative 2.5 Basophils Relative 0.5 Immature Grans % 0.2 Neutrophils Absolute 3.5 Lymphocytes Absolute 1.8 Monocytes Absolute 0.4 Eosinophils Absolute 0.2 Basophils Absolute 0.0 Immature Grans Absolute 0.0 LIPASE - Normal LIPASE 17 LACTIC ACID WITH REFLEX - Normal LACTIC ACID 0.6 MAGNESIUM - Normal MAGNESIUM 2.0 Narrative: Higher values can be expected in females during menses. HCG QUANTITATIVE BLOOD HCG QUANTITATIVE <2.5 Narrative: Values in should double every 2 to 3 days for the first 6 weeks. Elevated concentrations of human chorionic gonadotropin (hCG) measured in the first trimester of are observed in normal , but may serve as an indication of chorionic carcinoma, hydatiform mole, or multiple . Decreasing hCG concentrations indicate threatened or missed , recent termination of , ectopic , gestosis or intrauterine . Elizabeth- and postmenopausal females may have detectable hCG concentrations (< or = to 14 mIU/mL) due to pituitary production of hCG. Serum follicle-stimulating hormone measurement may aid in ruling-out in this population. Cutoffs of greater than 20 to 45 mIU/mL have been suggested and are method dependent. False-elevations (called phantom human chorionic gonadotropin: hCG) may occur with patients who have human antianimal or heterophilic antibodies. Some specimens may not dilute linearly due to abnormal forms of hCG. Elevated hCG concentrations not associated with are found in patients with other diseases such as tumors of the germ cells, ovaries, bladder, pancreas, stomach, lungs, and liver. This test is not intended to detect or monitor tumors or gestational trophoblastic disease. All other labs were within normal range or not returned as of this dictation. EMERGENCY DEPARTMENT COURSE and DIFFERENTIAL DIAGNOSIS/MDM: Vitals: Vitals: 12/08/24 0210 12/08/24 0213 12/08/24 0245 BP: (!) 127/90 Pulse: 88 Resp: 16 Temp: 36.7 C (98 F) TempSrc: Temporal SpO2: 99% Medications sodium chloride 0.9 % bolus 1,000 mL (1,000 mL IntraVENous New Bag 12/08/24238) ondansetron (Zofran) injection 4 mg (4 mg IntraVENous Given 12/08/24 023) famotidine (Pepcid) 20 mg in sodium chloride (PF) 0.9 % 10 mL injection (20 mg IntraVENous Given 12/08/24 0231) pantoprazole (ProtoNix) 40 mg in sodium chloride (PF) 0.9 % 10 mL injection (40 mg IntraVENous Given 12/08/24 0230) iopamidol (Isovue-370) 76 % injection 75 mL (75 mL IntraVENous Given 12/08/24 0341) SCREENINGS Tanisha Coma Scale Best Eye Response: Spontaneous Best Verbal Response: Oriented Best Motor Response: Follows commands [place] Coma Scale Score: 15 29-year-old female presents with acute on chronic abdominal pain The fact that the patient seems to have the worst of her pain in the epigastrium and left upper quadrant, has known GERD, is belching frequently, and the pain is worse with food, suggest exacerbation of GERD. Ulcers, gastritis, pancreatitis are also possible. Cholelithiasis or cholecystitis are possible, but less likely given that there is relatively minimal pain in the right upper quadrant at this time and there is no Giron sign. It is also possible that this is a flareup of her IBS as the patient has longstanding issues with IBS and has crampy diffuse abdominal pain frequently for months. It is reassuring that the patient had an EGD with her can handler 3 weeks ago with no obvious findings. Patient says that she was supposed to have an appointment with her GI physician this week but it was postponed. Patient needs a CT of her abdomen pelvis, needs full abdominal labs, antiemetics, IV fluids as she appears somewhat dehydrated, COVID-19 RSV influenza testing, antacid medication. If there is a suggestion of cholelithiasis or cholecystitis on her CT abdomen pelvis, we will transfer her to [facility] ED for right upper quadrant ultrasound of her gallbladder (no RUQ U/S available at this ED). The POTS, heart rate and BP are under good control at this time; no workup indicated for these issues during this ED visit. Review of most recent records of CT abdomen pelvis from the [facility] system was 10/09/[address] abdomen pelvis that showed no dilation of the GI tract and no apparent wall thickening. Appendix was not visualized but no signs of appendicitis. There was no biliary ductal dilation and the gallbladder was unremarkable. As this is a 24-hour bounce back visit and the fourth visit for abdominal pain in the last month, [facility] failsafe physician was contacted. Dr. Madrigal reviewed case with us and agrees that if workup (as currently planned) is negative for acute pathology, discharged with GI follow-up is reasonable. 0243. PROCEDURES: Unless otherwise noted below, none Procedures Normal white blood cell count Patient is not septic Not anemic Normal platelet count Urinalysis shows trace starvation ketosis dehydration. Correcting this with IV fluids. No urinary tract infection. No lactic acidosis Metabolic panel shows no metabolic acidosis, good kidney function, glucose within normal limits Sodium-potassium calcium all normal Aminotransferases unremarkable Alk phos unremarkable Total bilirubin normal Lipase unremarkable Not COVID-19 negative RSV negative Influenza negative Patient medicated in the emergency department with combination of IV fluids, antiemetics, antacid medication. Good effect. Looks more comfortable. Proceeding with imaging. CT abdomen pelvis shows no evidence of acute infectious or inflammatory process in the abdomen or pelvis. Liver demonstrates generalized diminished attenuation compared to the spleen which may be compatible with hepatic steatosis. However there is no sign of hepatitis on patient's LFTs, AST ALT are normal. Alk phos and bilirubin also normal. The liver demonstrates normal size and contours. No focal liver lesions. Gallbladder unremarkable. No biliary dilation. No hydronephrosis or focal renal lesions. No AAA. No appendicitis. No inflammatory change or bowel dilation noted i.e. no signs of diverticulitis or colitis or bowel obstruction. Interpreted by radiology and by me. Overall, aside from mild dehydration which we have corrected in the ED, no acute pathology detected. No indication for surgery consultation, antibiotic administration, or inpatient hospital admission. No sign of gallbladder pathology that would mandate interfacility transfer to [facility] for right upper quadrant ultrasound. Patient tolerating oral liquids here in the emergency department. Much more comfortable now following medication in the ED than she was upon arrival. Appears entirely nontoxic. Outpatient GI follow-up with her can handler at [facility] recommended. If the patient develops worsening abdominal pain, unrelenting nausea or vomiting, new onset hematochezia or melena, new onset hematemesis, inability to eat or drink, feels weak feels faint or passes out, jaundice or scleral icterus, fevers or chills or otherwise feels like she is getting worse rather than better, she should return to the ED immediately. Patient declines any prescription medication including Zofran or pantoprazole, stating that she has plenty of all of the meds that were prescribed to her by her GI physician and does not require or desire any new medication prescriptions at this time. She should stick to a bland diet such as the BRAT (Bananas, Rice, Applesauce, [place]) diet for the next several days to keep GI irritation to a minimum. She should make sure to stay well-hydrated by drinking small amounts of fluid frequently rather than large amounts all at once. She feels comfortable going home to follow-up with her can handler, Tariq Singleton of [facility] gastroenterology, and I encouraged her to do this. At the time of follow-up with [facility] GI, they may decide that additional diagnostic testing and treatment are necessary as they see fit. Results of workup and plan of care discussed with patient. She indicated understanding. Strict return precautions and anticipatory guidance given. All questions answered to her satisfaction. Patient discharged home in improved condition. Disposition: Discharged CRITICAL CARE TIME FINAL IMPRESSION 1. Chronic abdominal pain 2. Epigastric pain 3. Anorexia 4. Nausea 5. Dehydration 6. Diarrhea, unspecified type 7. Hx of gastroesophageal reflux (GERD) 8. History of IBS DISPOSITION PATIENT REFERRED TO: Tariq Singleton, DIAGNOSTIC IMAGING MANAGER - [employer] ENGINE[employer] [address] [place] [address] Schedule an appointment as soon as possible for a visit DISCHARGE MEDICATIONS: New Prescriptions No medications on file (Comment: Please note this report has been produced using speech recognition software and may contain errors related to that system including errors in grammar, punctuation, and spelling, as well as words and phrases that may be inappropriate. If there are any questions or concerns please feel free to contact the dictating provider for clarification.) Jamal Almaguer MD (electronically signed) Emergency Medicine Provider [1] Past Medical History: Diagnosis Date Anxiety Asthma ([facility]) 09/2016 Breast cyst, left 06/03/2021 Chronic sinusitis 12/2016 ENT eval per [facility] Dysautonomia ([facility]) 12/03/2024 GERD (gastroesophageal reflux disease) 07/2016 EGD per [facility] Hypothyroid 2009 IBS (irritable bowel syndrome) 02/2016 constipation - Colonoscopy per [facility] Migraines Neck pain Palpitations [2] Past Surgical History: Procedure Laterality Date BREAST LUMPECTOMY 08/2024 [facility] 1999 UPPER GASTROINTESTINAL ENDOSCOPY 11/2016 [facility] [3] Family History Problem Relation Name Age of Onset Ovarian cancer Neg Hx Diabetes Mother 35.00 on insulin at > 50 Lung cancer Maternal Grandfather Diabetes Maternal Cousin Gayle Colon cancer Maternal Grandmother 80.00 No Known Problems Paternal Grandmother Thyroid cancer Maternal Cousin Gayle Pancreatic cancer Mother Breast cancer Neg Hx No Known Problems Paternal Grandfather Other ([id number]) Father Danya 54.00 MVA in 2011 No Known Problems Sister Prostate cancer Maternal Grandfather [4] Social History Socioeconomic History Marital status: Tobacco Use Smoking status: Never Smokeless tobacco: Former Quit date: 04/05/2016 Vaping Use Vaping status: Never Used Substance and Sexual Activity Alcohol use: Not Currently Drug use: No Comment: caffiene: none Sexual activity: Yes Social History Narrative to Emile Nielson) since 07/21. NS or drinker, no children. 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 Social Drivers of Health Financial Resource Strain: Low Risk (04/20/2021) Received from [facility] Overall Financial Resource Strain (CARDIA) Difficulty of Paying Living Expenses: Not hard at all Food Insecurity: No Food Insecurity (10/10/2024) Received from [facility] Hunger Vital Sign Worried About Running Out of Food in the Last Year: Never true Ran Out of Food in the Last Year: Never true Transportation Needs: No Transportation Needs (12/03/2024) PRAPARE - Transportation Lack of Transportation (Medical): No Lack of Transportation (Non-Medical): No Physical Activity: Sufficiently Active (04/20/2021) Received from [facility] Exercise Vital Sign Days of Exercise per Week: 5 days Minutes of Exercise per Session: 30 min Stress: No Stress Concern Present (04/20/2021) Received from [facility] [place] [employer] - Occupational Stress Questionnaire Feeling of Stress : Not at all Social Connections: Moderately Integrated (04/20/2021) Received from [facility] Social Connection and Isolation Panel [NHANES] Frequency of Communication with Friends and Family: More than three times a week Frequency of Social Gatherings with Friends and Family: Twice a week Attends Mosque Services: More than 4 times per year Active Member of Clubs or Organizations: No Attends Club or Organization Meetings: Never Marital Status: Intimate Partner Violence: Not At Risk (12/03/2024) Humiliation, Afraid, Rape, and Kick questionnaire Fear of Current or Ex-Partner: No Emotionally Abused: No Physically Abused: No Sexually Abused: No Housing Stability: Low Risk (12/03/2024) Housing Stability Vital Sign Unable to Pay for Housing in the Last Year: No Number of Times Moved in the Last Year: 0 Homeless in the Last Year: No Jamal Almaguer MD 12/08/24 0413 Pt to ed with upper abdominal pain x3 days, nausea and diarrhea. Was seen here yesterday, not feeling any different. Pain is waking her out of her sleep documented in this encounter [facility] 12-08-2024 Emergency department Triage note Pt to ed with upper abdominal pain x3 days, nausea and diarrhea. Was seen here yesterday, not feeling any different. Pain is waking her out of her sleep [facility] 12-08-2024 Physician Emergency department Note EMERGENCY DEPARTMENT ENCOUNTER Pt Name: Dulce Maria Carty Birthdate 1995 Date of evaluation: 12/08/2024 ED Provider: Jamal Almaguer MD CHIEF COMPLAINT Chief Complaint Patient presents with Abdominal Pain Nausea HISTORY OF PRESENT ILLNESS (Location/Symptom, Timing/Onset, Context/Setting, Quality, Duration, Modifying Factors, Severity) Note limiting factors. I wore appropriate PPE for the entirety of this encounter. HPI Dulce Maria Carty is a 29 y.o. who presents to the emergency department chronic abdominal pain especially epigastric pain, nausea, anorexia Patient has a history of IBS and GERD. She takes sucralfate and 20 mg daily pantoprazole every morning religiously. She sees Tariq Singleton of the [facility] gastroenterology division and had an EGD 3 weeks ago which was negative. She has also had a colonoscopy in the past which was also negative according to patient. She has a history of chronic tachycardia and POTS and autonomic dysfunction for which she is on metoprolol. So long as she takes the metoprolol, the heart rate and blood pressure are within normal limits and this is the case today. Also has history of asthma and migraines, but these are not bothering her right now. Does not smoke does not drink. Does not use marijuana. Family history of pancreatic cancer and diabetes, no personal history of same. Patient has longstanding issues with GI problems and palpitations/POTS disease. This is her 12th visit to the ED in the last 9 weeks for these problems. Tonight the issue is GI, not cardiac related. There is no chest pain there are no palpitations there is no shortness of breath there is no syncope or presyncope. Heart rate is normal. Patient says that for the past several weeks, but especially over the last 3 days, she has had intermittent epigastric and periumbilical and left upper quadrant cramping pain, that is worse with food. It can be any type of food, some times eating something is bland/benign as bread sets off her abdominal discomfort. She is belching frequently. Pain is crampy and intermittent. Endorses nausea denies vomiting. Endorses intermittent diarrhea as well. No hematochezia, no melena. No hematemesis. No jaundice no scleral icterus. No vaginal bleed no vaginal discharge. No dysuria urgency frequency or hematuria. No pelvic pain. Patient initially registered as flank pain in the emergency department, however she is describing a crampy diffuse anterior abdominal pain worse in the epigastrium. Of note, patient was seen on 12/07/2024 in the emergency department for the same symptoms, however at that time no labs were performed and no imaging was performed and no medications were given. Patient was discharged after discussing situation with ED physician. Now returns with symptoms unchanged. Nursing Notes were reviewed. Limitations to history: None Outside historians: None REVIEW OF SYSTEMS Review of Systems Pertinent positives and negatives as per HPI PAST MEDICAL HISTORY Medical History[1] SURGICAL HISTORY Surgical History[2] CURRENT MEDICATIONS Previous Medications ALUMINUM-MAGNESIUM HYDROXIDE-SIMETHICONE (MAALOX MAX) 400-400-40 MG/5ML SUSPENSION Take 10 mL by mouth every 6 hours as needed for indigestion or heartburn for up to 10 days. BUSPIRONE (BUSPAR) 7.5 MG TABLET Take 7.5 mg by mouth 3 times daily. METOPROLOL SUCCINATE XL (TOPROL-XL) 25 MG 24 HR TABLET Take 1 tablet (25 mg) by mouth daily. Do not crush or chew. PANTOPRAZOLE (PROTONIX) 20 MG EC TABLET Take 20 mg by mouth every morning (before breakfast). PANTOPRAZOLE (PROTONIX) 20 MG EC TABLET Take 2 tablets (40 mg) by mouth daily for 20 days. Do not crush, chew, or split. MV-MIN-FE FUM-FA-DHA ( 1 PO) Take by mouth. PROBIOTIC PRODUCT (PROBIOTIC DAILY PO) Take by mouth. ALLERGIES Nitrofurantoin, Alprazolam, and Quetiapine FAMILY HISTORY Family History[3] SOCIAL HISTORY Social History[4] PHYSICAL EXAM ED Triage Vitals Temp Heart Rate Resp BP -- 12/08/2420912/08/2420912/08/24212 88 16 (!) 127/90 SpO2 Temp src Heart Rate Source Patient Position 12/08/24209 -- -- -- 99 % BP Location FiO2 (%) -- -- Physical Exam General: WDWN adult in NAD. Non-toxic appearing HENT: Head NCAT, EOMI with no erythema, swelling or discharge. No scleral icterus TMs normal Nares normal oropharyngeal mucus membranes somewhat dry, pink, no exudate Neck: Full ROM, supple, no rigidity Cardio: RRR, heart rate in the 80s, normotensive nl s1 s2 no m/r/g, extremities warm, dry, well perfused, non-edematous 2+ bilateral radial pulses, 2+ bilateral DP pulses Lungs: CTAB, no wheezes, rales, rhonchi, normal work of breathing Abdomen: Soft, tender to palpation throughout the entire abdomen. Worst of the tenderness appears to be in the left upper quadrant and the epigastrium. Minimal if any tenderness in the right upper quadrant. Minimal if any tenderness in the right lower quadrant. There is tenderness to palpation in the left lower quadrant in the periumbilical region. Negative Giron sign, negative McBurney's point tenderness. ND, non-rigid, BS x 4 hypoactive. 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 No evidence of acute infectious or inflammatory process in the abdomen or pelvis. 2. The liver demonstrates generalized diminished attenuation as compared to the spleen, which may be compatible with hepatic steatosis; correlate with LFTs. Report Dictated on Electronically Signed By: Cayden Fregoso MD Electronically Signed Date/Time: 12/08/2024 3:57 AM EST LABS: Labs Reviewed COMPREHENSIVE METABOLIC PANEL - Abnormal Result Value SODIUM 141 POTASSIUM 4.1 CHLORIDE 108 (*) CARBON DIOXIDE 24 ANION GAP 9 UREA NITROGEN 16 CREATININE 0.90 GLUCOSE 94 CALCIUM 9.5 AST (SGOT) 14 ALT 15 ALKALINE PHOSPHATASE 66 ALBUMIN 4.4 BILIRUBIN, TOTAL 0.6 TOTAL PROTEIN 6.7 eGFR 88.4 COMPLETE URINALYSIS WITH REFLEX TO CULTURE - Abnormal Color, Urine Light Yellow Clarity, Urine Clear pH, Urine 5.5 Leukocytes, Urine Negative Nitrite, Urine Negative Protein, Urine Negative Glucose, Urine Normal Bilirubin, Urine Negative Ketones, Urine Trace (*) Urobilinogen, Urine Normal Blood, Urine Negative SPECIFIC GRAVITY OF URINE (NUMERIC) 1.021 Narrative: A specimen with <=10 WBC is not consistent with inflammation. This specimen will not reflex to a urine culture. SARS-COV-2, FLU A/B, AND RSV COMBO - Normal SARS-CoV-2 Not Detected Respiratory Syncytial Virus Not Detected Influenza A Not Detected Influenza B Not Detected Narrative: Methodology: real-time, RT-PCR The SARS-CoV-2, Flu A/B, and RSV Combo assay is intended for in vitro diagnostic use under the FDA Emergency Use Authorization (EUA). This test has not been FDA cleared or approved. In compliance with this authorization, please visit www.fda.gov/media/657164/download or www.fda.gov/media/272088/download to access the applicable information sheets. CBC WITH AUTO DIFFERENTIAL - Normal Auto WBC 5.9 RBC 5.19 Hemoglobin 14.7 Hematocrit 43.6 MCV 84.0 MCH 28.3 MCHC 33.7 RDW 11.8 Platelets 195 MPV 10.1 nRBC 0.0 Neutrophils Relative 59.5 Lymphocytes Relative 30.2 Monocytes Relative 7.1 Eosinophils Relative 2.5 Basophils Relative 0.5 Immature Grans % 0.2 Neutrophils Absolute 3.5 Lymphocytes Absolute 1.8 Monocytes Absolute 0.4 Eosinophils Absolute 0.2 Basophils Absolute 0.0 Immature Grans Absolute 0.0 LIPASE - Normal LIPASE 17 LACTIC ACID WITH REFLEX - Normal LACTIC ACID 0.6 MAGNESIUM - Normal MAGNESIUM 2.0 Narrative: Higher values can be expected in females during menses. HCG QUANTITATIVE BLOOD HCG QUANTITATIVE <2.5 Narrative: Values in should double every 2 to 3 days for the first 6 weeks. Elevated concentrations of human chorionic gonadotropin (hCG) measured in the first trimester of are observed in normal , but may serve as an indication of chorionic carcinoma, hydatiform mole, or multiple . Decreasing hCG concentrations indicate threatened or missed , recent termination of , ectopic , gestosis or intrauterine . Elizabeth- and postmenopausal females may have detectable hCG concentrations (< or = to 14 mIU/mL) due to pituitary production of hCG. Serum follicle-stimulating hormone measurement may aid in ruling-out in this population. Cutoffs of greater than 20 to 45 mIU/mL have been suggested and are method dependent. False-elevations (called phantom human chorionic gonadotropin: hCG) may occur with patients who have human antianimal or heterophilic antibodies. Some specimens may not dilute linearly due to abnormal forms of hCG. Elevated hCG concentrations not associated with are found in patients with other diseases such as tumors of the germ cells, ovaries, bladder, pancreas, stomach, lungs, and liver. This test is not intended to detect or monitor tumors or gestational trophoblastic disease. All other labs were within normal range or not returned as of this dictation. EMERGENCY DEPARTMENT COURSE and DIFFERENTIAL DIAGNOSIS/MDM: Vitals: Vitals: 12/08/24 0210 12/08/24 0213 12/08/24 0245 BP: (!) 127/90 Pulse: 88 Resp: 16 Temp: 36.7 C (98 F) TempSrc: Temporal SpO2: 99% Medications sodium chloride 0.9 % bolus 1,000 mL (1,000 mL IntraVENous New Bag 12/08/24 023) ondansetron (Zofran) injection 4 mg (4 mg IntraVENous Given 12/08/24229) famotidine (Pepcid) 20 mg in sodium chloride (PF) 0.9 % 10 mL injection (20 mg IntraVENous Given 12/08/24 023) pantoprazole (ProtoNix) 40 mg in sodium chloride (PF) 0.9 % 10 mL injection (40 mg IntraVENous Given 12/08/24 023) iopamidol (Isovue-370) 76 % injection 75 mL (75 mL IntraVENous Given 12/08/24 0341) SCREENINGS [place] Coma Scale Best Eye Response: Spontaneous Best Verbal Response: Oriented Best Motor Response: Follows commands Tanisha Coma Scale Score: 15 29-year-old female presents with acute on chronic abdominal pain The fact that the patient seems to have the worst of her pain in the epigastrium and left upper quadrant, has known GERD, is belching frequently, and the pain is worse with food, suggest exacerbation of GERD. Ulcers, gastritis, pancreatitis are also possible. Cholelithiasis or cholecystitis are possible, but less likely given that there is relatively minimal pain in the right upper quadrant at this time and there is no Giron sign. It is also possible that this is a flareup of her IBS as the patient has longstanding issues with IBS and has crampy diffuse abdominal pain frequently for months. It is reassuring that the patient had an EGD with her can handler 3 weeks ago with no obvious findings. Patient says that she was supposed to have an appointment with her GI physician this week but it was postponed. Patient needs a CT of her abdomen pelvis, needs full abdominal labs, antiemetics, IV fluids as she appears somewhat dehydrated, COVID-19 RSV influenza testing, antacid medication. If there is a suggestion of cholelithiasis or cholecystitis on her CT abdomen pelvis, we will transfer her to [facility] ED for right upper quadrant ultrasound of her gallbladder (no RUQ U/S available at this ED). The POTS, heart rate and BP are under good control at this time; no workup indicated for these issues during this ED visit. Review of most recent records of CT abdomen pelvis from the [facility] system was 10/09/[address] abdomen pelvis that showed no dilation of the GI tract and no apparent wall thickening. Appendix was not visualized but no signs of appendicitis. There was no biliary ductal dilation and the gallbladder was unremarkable. As this is a 24-hour bounce back visit and the fourth visit for abdominal pain in the last month, [facility] failsafe physician was contacted. Dr. Madrigal reviewed case with us and agrees that if workup (as currently planned) is negative for acute pathology, discharged with GI follow-up is reasonable. 0243. PROCEDURES: Unless otherwise noted below, none Procedures Normal white blood cell count Patient is not septic Not anemic Normal platelet count Urinalysis shows trace starvation ketosis dehydration. Correcting this with IV fluids. No urinary tract infection. No lactic acidosis Metabolic panel shows no metabolic acidosis, good kidney function, glucose within normal limits Sodium-potassium calcium all normal Aminotransferases unremarkable Alk phos unremarkable Total bilirubin normal Lipase unremarkable Not COVID-19 negative RSV negative Influenza negative Patient medicated in the emergency department with combination of IV fluids, antiemetics, antacid medication. Good effect. Looks more comfortable. Proceeding with imaging. CT abdomen pelvis shows no evidence of acute infectious or inflammatory process in the abdomen or pelvis. Liver demonstrates generalized diminished attenuation compared to the spleen which may be compatible with hepatic steatosis. However there is no sign of hepatitis on patient's LFTs, AST ALT are normal. Alk phos and bilirubin also normal. The liver demonstrates normal size and contours. No focal liver lesions. Gallbladder unremarkable. No biliary dilation. No hydronephrosis or focal renal lesions. No AAA. No appendicitis. No inflammatory change or bowel dilation noted i.e. no signs of diverticulitis or colitis or bowel obstruction. Interpreted by radiology and by me. Overall, aside from mild dehydration which we have corrected in the ED, no acute pathology detected. No indication for surgery consultation, antibiotic administration, or inpatient hospital admission. No sign of gallbladder pathology that would mandate interfacility transfer to [facility] ED for right upper quadrant ultrasound. Patient tolerating oral liquids here in the emergency department. Much more comfortable now following medication in the ED than she was upon arrival. Appears entirely nontoxic. Outpatient GI follow-up with her can handler at [facility] recommended. If the patient develops worsening abdominal pain, unrelenting nausea or vomiting, new onset hematochezia or melena, new onset hematemesis, inability to eat or drink, feels weak feels faint or passes out, jaundice or scleral icterus, fevers or chills or otherwise feels like she is getting worse rather than better, she should return to the ED immediately. Patient declines any prescription medication including Zofran or pantoprazole, stating that she has plenty of all of the meds that were prescribed to her by her GI physician and does not require or desire any new medication prescriptions at this time. She should stick to a bland diet such as the BRAT (Bananas, Rice, Applesauce, [place]) diet for the next several days to keep GI irritation to a minimum. She should make sure to stay well-hydrated by drinking small amounts of fluid frequently rather than large amounts all at once. She feels comfortable going home to follow-up with her can handler, Tariq Singleton of [facility] gastroenterology, and I encouraged her to do this. At the time of follow-up with [facility] GI, they may decide that additional diagnostic testing and treatment are necessary as they see fit. Results of workup and plan of care discussed with patient. She indicated understanding. Strict return precautions and anticipatory guidance given. All questions answered to her satisfaction. Patient discharged home in improved condition. Disposition: Discharged CRITICAL CARE TIME FINAL IMPRESSION 1. Chronic abdominal pain 2. Epigastric pain 3. Anorexia 4. Nausea 5. Dehydration 6. Diarrhea, unspecified type 7. Hx of gastroesophageal reflux (GERD) 8. History of IBS DISPOSITION PATIENT REFERRED TO: Tariq Singleton, DIAGNOSTIC IMAGING MANAGER - BUILD AND DE[employer]OYMENT ENGINEER [address] [facility] [id number] Schedule an appointment as soon as possible for a visit DISCHARGE MEDICATIONS: New Prescriptions No medications on file (Comment: Please note this report has been produced using speech recognition software and may contain errors related to that system including errors in grammar, punctuation, and spelling, as well as words and phrases that may be inappropriate. If there are any questions or concerns please feel free to contact the dictating provider for clarification.) Jamal Almaguer MD (electronically signed) Emergency Medicine Provider [1] Past Medical History: Diagnosis Date Anxiety Asthma (HHS/HCC) 09/2016 Breast cyst, left 06/03/2021 Chronic sinusitis 12/2016 ENT eval per [facility] Dysautonomia (HCC) 12/03/2024 GERD (gastroesophageal reflux disease) 07/2016 EGD per [facility] Hypothyroid 2009 IBS (irritable bowel syndrome) 02/2016 constipation - Colonoscopy per [facility] Migraines Neck pain Palpitations [2] Past Surgical History: Procedure Laterality Date BREAST LUMPECTOMY 08/2024 COLONOSCOPY 02/2016 [facility] TONSILLECTOMY (HISTORICAL) 1999 UPPER GASTROINTESTINAL ENDOSCOPY 11/2016 [facility] [3] Family History Problem Relation Name Age of Onset Ovarian cancer Neg Hx Diabetes Mother 35.00 on insulin at > 50 Lung cancer Maternal Grandfather Diabetes Maternal Cousin Gayle Colon cancer Maternal Grandmother 80.00 No Known Problems Paternal Grandmother Thyroid cancer Maternal Cousin Gayle Pancreatic cancer Mother Breast cancer Neg Hx No Known Problems Paternal Grandfather Other ([id number]) Father Danya 54.00 MVA in 2012 No Known Problems Sister Prostate cancer Maternal Grandfather [4] Social History Socioeconomic History Marital status: Tobacco Use Smoking status: Never Smokeless tobacco: Former Quit date: 04/05/2016 Vaping Use Vaping status: Never Used Substance and Sexual Activity Alcohol use: Not Currently Drug use: No Comment: caffiene: none Sexual activity: Yes Social History Narrative to Emile Nielson) since 07/21. NS or drinker, no children. 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 Social Drivers of Health Financial Resource Strain: Low Risk (04/20/2021) Received from [facility] Overall Financial Resource Strain (CARDIA) Difficulty of Paying Living Expenses: Not hard at all Food Insecurity: No Food Insecurity (10/10/2024) Received from [facility] Hunger Vital Sign Worried About Running Out of Food in the Last Year: Never true Ran Out of Food in the Last Year: Never true Transportation Needs: No Transportation Needs (12/03/2024) PRAPARE - Transportation Lack of Transportation (Medical): No Lack of Transportation (Non-Medical): No Physical Activity: Sufficiently Active (04/20/2021) Received from [facility] Exercise Vital Sign Days of Exercise per Week: 5 days Minutes of Exercise per Session: 30 min Stress: No Stress Concern Present (04/20/2021) Received from [facility] [place] [employer] - Occupational Stress Questionnaire Feeling of Stress : Not at all Social Connections: Moderately Integrated (04/20/2021) Received from [facility] Social Connection and Isolation Panel [NHANES] Frequency of Communication with Friends and Family: More than three times a week Frequency of Social Gatherings with Friends and Family: Twice a week Attends Mosque Services: More than 4 times per year Active Member of Clubs or Organizations: No Attends Club or Organization Meetings: Never Marital Status: Intimate Partner Violence: Not At Risk (12/03/2024) Humiliation, Afraid, Rape, and Kick questionnaire Fear of Current or Ex-Partner: No Emotionally Abused: No Physically Abused: No Sexually Abused: No Housing Stability: Low Risk (12/03/2024) Housing Stability Vital Sign Unable to Pay for Housing in the Last Year: No Number of Times Moved in the Last Year: 0 Homeless in the Last Year: No Jamal Almaguer MD 12/08/24 0413 [facility] 12-07-2024 Hospital Discharge instructions Teetee Aleman DO - 12/07/2024 1:55 PM EST In the medical field, there is always a level of diagnostic uncertainty, even if this uncertainty is low. For this reason, it is important to immediately return to the emergency department if you have any new symptoms, worsening symptoms, change of symptoms, or if you have any other concerns. We would be happy to re-evaluate you. Otherwise, please take your medications as prescribed and follow-up as recommended. Some additional instructions, if any, as below: Follow up with your primary care doctor and GI and doctor Take medications as discussed The following attachments cannot be sent through Care Everywhere.Acid Reflux, Adult and Adolescent ED (Gambian)documented in this encounter [facility] 12-07-2024 Emergency department Note EMERGENCY DEPARTMENT ENCOUNTER Pt Name: Dulce Maria Carty Birthdate 1995 Date of evaluation: 12/07/2024 ED Provider: Teetee Aleman DO CHIEF COMPLAINT Chief Complaint Patient presents with Abdominal Pain HISTORY OF PRESENT ILLNESS (Location/Symptom, Timing/Onset, Context/Setting, Quality, Duration, Modifying Factors, Severity) Note limiting factors. I wore appropriate PPE for the entirety of this encounter. HPI Dulce Maria Carty is a 29 y.o. who presents to the emergency department with chief complaint of with complaint abdominal pain. She reports for the last 3 days she has been having this abdominal pain in epigastric region with associated burping and passing gas. She reports that she does not eat normally but the little that she does eat it feels very burning with lots of gas and belching. She has had a history of this in the distant past. Denies any new symptoms of back pain, nausea, vomiting, diarrhea, constipation, dysuria, hematuria. Patient has been seen in the emergency department numerous times recently for other complaints but previously for abdominal pain as well. Patient does endorse a lot of stressful living currently Nursing Notes were reviewed. REVIEW OF SYSTEMS Review of Systems Pertinent positives and negatives as per HPI. PAST MEDICAL HISTORY Medical History[1] SURGICAL HISTORY Surgical History[2] CURRENT MEDICATIONS Previous Medications BUSPIRONE (BUSPAR) 7.5 MG TABLET Take 7.5 mg by mouth 3 times daily. METOPROLOL SUCCINATE XL (TOPROL-XL) 25 MG 24 HR TABLET Take 1 tablet (25 mg) by mouth daily. Do not crush or chew. PANTOPRAZOLE (PROTONIX) 20 MG EC TABLET Take 20 mg by mouth every morning (before breakfast). MV-MIN-FE FUM-FA-DHA ( 1 PO) Take by mouth. PROBIOTIC PRODUCT (PROBIOTIC DAILY PO) Take by mouth. ALLERGIES Nitrofurantoin, Alprazolam, and Quetiapine FAMILY HISTORY Family History[3] SOCIAL HISTORY Social History[4] SCREENINGS Tanisha Coma Scale Best Eye Response: Spontaneous Best Verbal Response: Oriented Best Motor Response: Follows commands [place] Coma Scale Score: 15 PHYSICAL EXAM ED Triage Vitals [12/07/24 1334] Temp Heart Rate Resp BP -- 88 16 (!) 118/81 SpO2 Temp src Heart Rate Source Patient Position 99 % -- Monitor -- BP Location FiO2 (%) -- -- General: A&O x 3, well appearing, no acute distress Head: NC/AT Eyes: Atraumatic, EOMI, clear conjunctival, PERRLA Nose: Atraumatic, no skin changes Throat: Moist mucus membranes, uvula midline, oropharynx clear Neck: atraumatic, Supple, no lymphadenopathy, no stiffness or restricted ROM Heart: Normal rate and regular rhythm, no m/r/g Lungs: CTA bilaterally, no crackles or wheezes, no respiratory distress Abd: Soft, nontender, nondistended, no guarding, Abdomen soft, nontender, nondistended. Negative murphys. Negative rovsings. Negative mcburney's point tenderness. Not peritonitic. No obvious mass or pulsatile feature. No skin changes Back: atraumatic, no step-off, No midline vertebral ttp, no CVA tenderness bilaterally Extremity: warm, no clubbing or edema, 2+ pulses bilateral radial pulse bilaterally, 2+ PT pulses bilaterally Neurologic: Non focal exam, moving all extremities spontaneously, normal gait Skin: warm, dry, no obvious rashes DIAGNOSTIC RESULTS Procedures/EKG: EKG was reviewed by myself. Physician EKG interpretation can be found below in MDM RADIOLOGY (Per Emergency Physician): As per below in MDM section Interpretation per the Radiologist below, if available at the time of this note: No orders to display ED BEDSIDE ULTRASOUND: Performed by ED Physician - none LABS: Labs Reviewed - No data to display All other labs were within normal range or not returned as of this dictation. EMERGENCY DEPARTMENT COURSE and DIFFERENTIAL DIAGNOSIS/MDM: Vitals: Vitals: 12/07/24 1334 BP: (!) 118/81 Pulse: 88 Resp: 16 SpO2: 99% Weight: 70.3 kg (155 lb) Height: 1.676 m (5' 6") Diagnoses as of 12/07/24 1425 Gastroesophageal reflux disease without esophagitis Medications - No data to display Patient with hx of POTS presents to the ED with a chief complaint of abd pain. On exam, vitals stable. Per aboe. Otherwise per above (Differential diagnosis) With consideration of age, sex/gender, risk factors, to evaluate patient for high risk causes of morbidity and mortality such as, but not limited to, GERD vs other Today we will obtain none, see below We will also provide medical/symptomatic management with none see below. Discussed plan with patient who agrees with current plan. REVAL: End of visit medical decision making Patient was reassessed. Resting comfortably. No acute distress. Response to medical management provided in the ED: We had a long and thorough discussion about patient's symptomatology and etiology. At this time he does fit GERD and gastritis. I offered further workup including labs and imaging however both her and I felt that it would be unnecessary radiation. She understands she can return for workup she reportedly like. We will treat symptomatically. Patient is amenable to this plan. She is concerned because she is currently still breast-feeding her baby. Discussed all results with patient and/or family members. Pertinent parties verbalize understanding. Offered admission for further management. Discussed risks, benefits and alternatives. Considered additional workup and the emergency department or inpatient however patient will be discharged home with close follow-up. Strict return precautions given including when to return to the emergency department. Close follow-up with PCP and consultants as displayed in the discharge. Discussed all of the above with the following. Patient understands. Patient able [facility] Patient verbalizes understanding and is agreeable to plan Follow up: PCP, Will prescribe: mylanta CRITICAL CARE TIME None CONSULTS: None PROCEDURES: Unless otherwise noted below, none Procedures FINAL IMPRESSION 1. Gastroesophageal reflux disease without esophagitis DISPOSITION PATIENT REFERRED TO: Zachariah Rome DO [address] [facility] [id number] In 3 days DISCHARGE MEDICATIONS: New Prescriptions No medications on file (Comment: Please note this report has been produced using speech recognition software and may contain errors related to that system including errors in grammar, punctuation, and spelling, as well as words and phrases that may be inappropriate. If there are any questions or concerns please feel free to contact the dictating provider for clarification.) Teetee Aleman DO (electronically signed) Emergency Medicine Provider [1] Past Medical History: Diagnosis Date Anxiety Asthma ([facility]) 09/2016 Breast cyst, left 06/03/2021 Chronic sinusitis 12/2016 ENT eval per [facility] Dysautonomia ([facility]) 12/03/2024 GERD (gastroesophageal reflux disease) 07/2016 EGD per [facility] Hypothyroid 2008 IBS (irritable bowel syndrome) 02/2016 constipation - Colonoscopy per [facility] Migraines Neck pain Palpitations [2] Past Surgical History: Procedure Laterality Date BREAST LUMPECTOMY 08/2024 COLONOSCOPY 02/2016 [facility] TONSILLECTOMY (HISTORICAL) 1999 UPPER GASTROINTESTINAL ENDOSCOPY 11/2016 [facility] [3] Family History Problem Relation Name Age of Onset Ovarian cancer Neg Hx Diabetes Mother 35.00 on insulin at > 50 Lung cancer Maternal Grandfather Diabetes Maternal Cousin Gayle Colon cancer Maternal Grandmother 80.00 No Known Problems Paternal Grandmother Thyroid cancer Maternal Cousin Gayle Pancreatic cancer Mother Breast cancer Neg Hx No Known Problems Paternal Grandfather Other ([id number]) Father Danya 54.00 MVA in 2011 No Known Problems Sister Prostate cancer Maternal Grandfather [4] Social History Socioeconomic History Marital status: Tobacco Use Smoking status: Never Smokeless tobacco: Former Quit date: 04/05/2016 Vaping Use Vaping status: Never Used Substance and Sexual Activity Alcohol use: Not Currently Drug use: No Comment: caffiene: none Sexual activity: Yes Social History Narrative to Emile Nielson) since 07/21. NS or drinker, no children. 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 Social Drivers of Health Financial Resource Strain: Low Risk (04/20/2021) Received from [facility] Overall Financial Resource Strain (CARDIA) Difficulty of Paying Living Expenses: Not hard at all Food Insecurity: No Food Insecurity (10/10/2024) Received from [facility] Hunger Vital Sign Worried About Running Out of Food in the Last Year: Never true Ran Out of Food in the Last Year: Never true Transportation Needs: No Transportation Needs (12/03/2024) PRAPARE - Transportation Lack of Transportation (Medical): No Lack of Transportation (Non-Medical): No Physical Activity: Sufficiently Active (04/20/2021) Received from [facility] Exercise Vital Sign Days of Exercise per Week: 5 days Minutes of Exercise per Session: 30 min Stress: No Stress Concern Present (04/20/2021) Received from [facility] [place] [employer] [facility] - Occupational Stress Questionnaire Feeling of Stress : Not at all Social Connections: Moderately Integrated (04/20/2021) Received from [facility] Social Connection and Isolation Panel [NHANES] Frequency of Communication with Friends and Family: More than three times a week Frequency of Social Gatherings with Friends and Family: Twice a week Attends Mosque Services: More than 4 times per year Active Member of Clubs or Organizations: No Attends Club or Organization Meetings: Never Marital Status: Intimate Partner Violence: Not At Risk (12/03/2024) Humiliation, Afraid, Rape, and Kick questionnaire Fear of Current or Ex-Partner: No Emotionally Abused: No Physically Abused: No Sexually Abused: No Housing Stability: Low Risk (12/03/2024) Housing Stability Vital Sign Unable to Pay for Housing in the Last Year: No Number of Times Moved in the Last Year: 0 Homeless in the Last Year: No Teetee Aleman DO 12/07/241827 Patient to room 4 with c/o abdominal pain for the last 3-7 days. Patient reports diarrhea, no vomiting. V/S obtained, call light within reach. documented in this encounter [facility] 12-07-2024 Emergency department Triage note Patient to room 4 with c/o abdominal pain for the last 3-7 days. Patient reports diarrhea, no vomiting. V/S obtained, call light within reach. [facility] 12-07-2024 Physician Emergency department Note EMERGENCY DEPARTMENT ENCOUNTER Pt Name: Dulce Maria Carty Birthdate 1995 Date of evaluation: 12/07/2024 ED Provider: Teetee Aleman DO CHIEF COMPLAINT Chief Complaint Patient presents with Abdominal Pain HISTORY OF PRESENT ILLNESS (Location/Symptom, Timing/Onset, Context/Setting, Quality, Duration, Modifying Factors, Severity) Note limiting factors. I wore appropriate PPE for the entirety of this encounter. HPI Dulce Maria Carty is a 29 y.o. who presents to the emergency department with chief complaint of with complaint abdominal pain. She reports for the last 3 days she has been having this abdominal pain in epigastric region with associated burping and passing gas. She reports that she does not eat normally but the little that she does eat it feels very burning with lots of gas and belching. She has had a history of this in the distant past. Denies any new symptoms of back pain, nausea, vomiting, diarrhea, constipation, dysuria, hematuria. Patient has been seen in the emergency department numerous times recently for other complaints but previously for abdominal pain as well. Patient does endorse a lot of stressful living currently Nursing Notes were reviewed. REVIEW OF SYSTEMS Review of Systems Pertinent positives and negatives as per HPI. PAST MEDICAL HISTORY Medical History[1] SURGICAL HISTORY Surgical History[2] CURRENT MEDICATIONS Previous Medications BUSPIRONE (BUSPAR) 7.5 MG TABLET Take 7.5 mg by mouth 3 times daily. METOPROLOL SUCCINATE XL (TOPROL-XL) 25 MG 24 HR TABLET Take 1 tablet (25 mg) by mouth daily. Do not crush or chew. PANTOPRAZOLE (PROTONIX) 20 MG EC TABLET Take 20 mg by mouth every morning (before breakfast). MV-MIN-FE FUM-FA-DHA ( 1 PO) Take by mouth. PROBIOTIC PRODUCT (PROBIOTIC DAILY PO) Take by mouth. ALLERGIES Nitrofurantoin, Alprazolam, and Quetiapine FAMILY HISTORY Family History[3] SOCIAL HISTORY Social History[4] SCREENINGS [place] Coma Scale Best Eye Response: Spontaneous Best Verbal Response: Oriented Best Motor Response: Follows commands [place] Coma Scale Score: 15 PHYSICAL EXAM ED Triage Vitals [12/07/24 1334] Temp Heart Rate Resp BP -- 88 16 (!) 118/81 SpO2 Temp src Heart Rate Source Patient Position 99 % -- Monitor -- BP Location FiO2 (%) -- -- General: A&O x 3, well appearing, no acute distress Head: NC/AT Eyes: Atraumatic, EOMI, clear conjunctival, PERRLA Nose: Atraumatic, no skin changes Throat: Moist mucus membranes, uvula midline, oropharynx clear Neck: atraumatic, Supple, no lymphadenopathy, no stiffness or restricted ROM Heart: Normal rate and regular rhythm, no m/r/g Lungs: CTA bilaterally, no crackles or wheezes, no respiratory distress Abd: Soft, nontender, nondistended, no guarding, Abdomen soft, nontender, nondistended. Negative murphys. Negative rovsings. Negative mcburney's point tenderness. Not peritonitic. No obvious mass or pulsatile feature. No skin changes Back: atraumatic, no step-off, No midline vertebral ttp, no CVA tenderness bilaterally Extremity: warm, no clubbing or edema, 2+ pulses bilateral radial pulse bilaterally, 2+ PT pulses bilaterally Neurologic: Non focal exam, moving all extremities spontaneously, normal gait Skin: warm, dry, no obvious rashes DIAGNOSTIC RESULTS Procedures/EKG: EKG was reviewed by myself. Physician EKG interpretation can be found below in MDM RADIOLOGY (Per Emergency Physician): As per below in MDM section Interpretation per the Radiologist below, if available at the time of this note: No orders to display ED BEDSIDE ULTRASOUND: Performed by ED Physician - none LABS: Labs Reviewed - No data to display All other labs were within normal range or not returned as of this dictation. EMERGENCY DEPARTMENT COURSE and DIFFERENTIAL DIAGNOSIS/MDM: Vitals: Vitals: 12/07/24 1334 BP: (!) 118/81 Pulse: 88 Resp: 16 SpO2: 99% Weight: 70.3 kg (155 lb) Height: 1.676 m (5' 6") Diagnoses as of 12/07/24 1425 Gastroesophageal reflux disease without esophagitis Medications - No data to display Patient with hx of POTS presents to the ED with a chief complaint of abd pain. On exam, vitals stable. Per aboe. Otherwise per above (Differential diagnosis) With consideration of age, sex/gender, risk factors, to evaluate patient for high risk causes of morbidity and mortality such as, but not limited to, GERD vs other Today we will obtain none, see below We will also provide medical/symptomatic management with none see below. Discussed plan with patient who agrees with current plan. REVAL: End of visit medical decision making Patient was reassessed. Resting comfortably. No acute distress. Response to medical management provided in the ED: We had a long and thorough discussion about patient's symptomatology and etiology. At this time he does fit GERD and gastritis. I offered further workup including labs and imaging however both her and I felt that it would be unnecessary radiation. She understands she can return for workup she reportedly like. We will treat symptomatically. Patient is amenable to this plan. She is concerned because she is currently still breast-feeding her baby. Discussed all results with patient and/or family members. Pertinent parties verbalize understanding. Offered admission for further management. Discussed risks, benefits and alternatives. Considered additional workup and the emergency department or inpatient however patient will be discharged home with close follow-up. Strict return precautions given including when to return to the emergency department. Close follow-up with PCP and consultants as displayed in the discharge. Discussed all of the above with the following. Patient understands. Patient able to follow-up on copy of results on-line on [facility]. Patient verbalizes understanding and is agreeable to plan Follow up: PCP, Will prescribe: mylanta CRITICAL CARE TIME None CONSULTS: None PROCEDURES: Unless otherwise noted below, none Procedures FINAL IMPRESSION 1. Gastroesophageal reflux disease without esophagitis DISPOSITION PATIENT REFERRED TO: Zachariah Rome [place] [address] [place] [address] In 3 days DISCHARGE MEDICATIONS: New Prescriptions No medications on file (Comment: Please note this report has been produced using speech recognition software and may contain errors related to that system including errors in grammar, punctuation, and spelling, as well as words and phrases that may be inappropriate. If there are any questions or concerns please feel free to contact the dictating provider for clarification.) Teetee Aleman DO (electronically signed) Emergency Medicine Provider [1] Past Medical History: Diagnosis Date Anxiety Asthma ([facility]) 09/2016 Breast cyst, left 06/03/2021 Chronic sinusitis 12/2016 ENT eval [facility] Dysautonomia ([facility]) 12/03/2024 GERD (gastroesophageal reflux disease) 07/2016 EGD per [facility] Hypothyroid 2008 IBS (irritable bowel syndrome) 02/2016 constipation - Colonoscopy per [facility] Migraines Neck pain Palpitations [2] Past Surgical History: Procedure Laterality Date BREAST LUMPECTOMY 08/2024 COLONOSCOPY 02/2016 [facility] TONSILLECTOMY (HISTORICAL) 1999 UPPER GASTROINTESTINAL ENDOSCOPY 11/2016 [facility] [3] Family History Problem Relation Name Age of Onset Ovarian cancer Neg Hx Diabetes Mother 35.00 on insulin at > 50 Lung cancer Maternal Grandfather Diabetes Maternal Cousin Gayle Colon cancer Maternal Grandmother 80.00 No Known Problems Paternal Grandmother Thyroid cancer Maternal Cousin Gayle Pancreatic cancer Mother Breast cancer Neg Hx No Known Problems Paternal Grandfather Other ([address]) Father Danya 54.00 MVA in 2011 No Known Problems Sister Prostate cancer Maternal Grandfather [4] Social History Socioeconomic History Marital status: Tobacco Use Smoking status: Never Smokeless tobacco: Former Quit date: 04/05/2016 Vaping Use Vaping status: Never Used Substance and Sexual Activity Alcohol use: Not Currently Drug use: No Comment: caffiene: none Sexual activity: Yes Social History Narrative to Emile Nielson) since 07/21. NS or drinker, no children. 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 Social Drivers of Health Financial Resource Strain: Low Risk (04/20/2021) Received from [facility] Overall Financial Resource Strain (CARDIA) Difficulty of Paying Living Expenses: Not hard at all Food Insecurity: No Food Insecurity (10/10/2024) Received from [facility] Hunger Vital Sign Worried About Running Out of Food in the Last Year: Never true Ran Out of Food in the Last Year: Never true Transportation Needs: No Transportation Needs (12/03/2024) PRAPARE - Transportation Lack of Transportation (Medical): No Lack of Transportation (Non-Medical): No Physical Activity: Sufficiently Active (04/20/2021) Received from [facility] Exercise Vital Sign Days of Exercise per Week: 5 days Minutes of Exercise per Session: 30 min Stress: No Stress Concern Present (04/20/2021) Received from [facility] [place] [employer] - Occupational Stress Questionnaire Feeling of Stress : Not at all Social Connections: Moderately Integrated (04/20/2021) Received from [facility] Social Connection and Isolation Panel [NHANES] Frequency of Communication with Friends and Family: More than three times a week Frequency of Social Gatherings with Friends and Family: Twice a week Attends Mosque Services: More than 4 times per year Active Member of Clubs or Organizations: No Attends Club or Organization Meetings: Never Marital Status: Intimate Partner Violence: Not At Risk (12/03/2024) Humiliation, Afraid, Rape, and Kick questionnaire Fear of Current or Ex-Partner: No Emotionally Abused: No Physically Abused: No Sexually Abused: No Housing Stability: Low Risk (12/03/2024) Housing Stability Vital Sign Unable to Pay for Housing in the Last Year: No Number of Times Moved in the Last Year: 0 Homeless in the Last Year: No Teetee Aleman DO 12/07/[address] [facility] 12-03-2024 Nurse Note Pt ready for discharge IV dc'd monitor dc'd. Pt verbalizes understanding of dc meds/instructions no questions. Pt reviewed ortho BP info and declines any add'l assist at home. Pt left with all personal belongings via wc with nurse to family car. Scripts called to pharmacy. Cheli Monterroso RN [facility] 12-03-2024 Nurse Note Pt ready for discharge IV dc'd monitor dc'd. Pt verbalizes understanding of dc meds/instructions no questions. Pt reviewed ortho BP info and declines any add'l assist at home. Pt left with all personal belongings via wc with nurse to family car. Scripts called to pharmacy. Cheli Monterroso RN 0603: Pt arrived from [facility]. Admission complete. Provider notified of patient's arrival. Patient oriented to room, call light within reach. documented in this encounter [facility] 12-03-2024 Hospital Discharge instructions Cheli Monterroso RN - 12/03/2024 2:11 PM EDT Activity - as tolerated Cheli Monterroso RN - 12/03/2024 2:11 PM EDT Diet - regular The following attachments cannot be sent through Care Everywhere.Orthostatic Hypotension Discharge Instructions (Gambian)Tachycardia Discharge Instructions (Gambian)documented in this encounter [facility] 12-03-2024 Note [facility] 12-03-2024 Hospital course Narrative Discharge Summary Dulce Maria Carty : 1995 ADMIT DATE: 12/03/2024 DISCHARGE DATE: 12/03/2024 PRIMARY CARE PHYSICIAN: Zachariah Rome VISIT STATUS: Observation CODE STATUS: Full Code DISCHARGE DIAGNOSES: Principal Problem: Dysautonomia (HCC) Active Problems: Autonomic dysfunction HOSPITAL COURSE: Dulce Maria is a 29 y.o. female with a history of Anxiety, asthma, dysautonomia/orthostatic hypotension, IBS, migraines that presented to the ED 12/03/24 with complaints of chest pain. Pt follows with Dr Love, recent Tilt table test. She has had episodes of palpitations, chest pain, lightheadedness, muscle cramping and tingling in her extremities that initially started mid October 2024 and have gotten progressively more frequent. Symptoms in ED where reported to be no different from her prior episodes. In the ED, she was afebrile, HR ranged 81-100. SBP ranged 112-134. BMP, troponin, proBNP, CBC, chest xray unremarkable, EKG showed SR rate 87 qtc 453. Administered 1 L NS bolus. Admitted to CDU for further evaluation. Per chart review, pt has been seen in the ED 10 times since the end of September for above symptoms. She was admitted to [facility] on 10/10/24. She had unremarkable MRI and EEG. She was admitted to [facility] on 10/28/24 and seen by Endocrinology. She had normal thyroid function tests, she was found to have a thyroid nodule that was not considered the etiology of her symptoms. She was seen by psychiatry and started on gabapentin and vistaril prn for anxiety. She followed up with neurology on 11/10/24 and vestibular testing was ordered. She followed up with Cardiology on 11/11/24 and tilt table test was ordered and holter monitor. Holter monitor showed SR with periods of ST. Average HR 87, highest HR 152. Passive tilt test data suggest inappropriate sinus tachycardia, Active tilt test supports a Vagal mediated reaction with cardioinhibitory features and potentially vasodepressor features (which may be confounded bu the hemodynamic resopnse to NTG, although the development of hypotension 4 minutes after NTG suggests a vagal responsse). Lack of vagal mediated findings during passive tilt reduces the specificity of the findings supporting a genuine vagal mediated response during active tilt. Pt was monitored on telemetry remained SR no noted sinus pauses, sinus tacycardia or arrhythmia's. She was seen by Cardiology and reassured that her symptoms are "fairly classic for dysautonomia and that there is suspicion for a vagally mediated cardioinhibitory response on her last tilt table test. She initially expressed that she is against starting new medications as she wishes to become again and she is continuing to breast feed however after further discussion with cardiology she was agreeable to Toprol 25 mg daily. No further cardiac work up warranted inpatient. She was advised to remain well hydrated, liberalize her salt intake and follow up with cardiology outpatient. Pt remained HDS, she was medically optimized and discharged to home with planned follow up with PCP, cardiology, neurology as well as complete Vestibular testing that is scheduled for January 06, 2025. Acute, acute on chronic, unstable/uncontrolled chronic problems/diagnoses: Atypical chest pain Dysautonomia Inappropriate sinus tachycardia Stable chronic problems affecting care, new non-acute diagnoses: Anxiety IBS Migraines SIGNIFICANT DIAGNOSTIC STUDIES: Chest Xray: [facility] 1995 [id number] Exam Date/Time: 12/03/2024 03:20 Procedure: XR CHEST 1 VIEW Ordering Provider: RIOS KEVIN Reason For Exam: CHEST PAIN; Chest Pain EXAM: XR Chest, 1 View CLINICAL INDICATION: CHEST PAIN; Chest Pain TECHNIQUE: Frontal view of the chest. COMPARISON: 10/26/2024. FINDINGS: LUNGS AND PLEURAL SPACES: Unremarkable. No consolidation. No pneumothorax. HEART: Unremarkable. No cardiomegaly. MEDIASTINUM: Unremarkable. Normal mediastinal contour. BONES/JOINTS: Unremarkable. No acute fracture. IMPRESSION: Normal chest x-ray. Report Dictated on Electronically Signed By: Danya Downing DO Electronically Signed Date/Time: 12/03/2024 3:51 AM EDT" CONSULTANTS: Cardiology RECOMMENDED NEXT STEPS: Follow up with PCP for post hospital visit Follow up with Cardiology Follow up with Neurology as previously planned Dec 12 2024 @ 930 AM Complete Vestibular testing as previously scheduled on Jan 06, 2025 @ 930 AM Vitals: BP 101/65 Pulse 80 Temp 36.5 C (97.7 F) (Temporal) Resp 16 Ht 5' 6" (1.676 m) Wt 162 lb (73.5 kg) SpO2 100% BMI 26.15 kg/m BMI Classification: Overweight (BMI 25.0-29.9) Pulse Ox: SpO2 Av % Min: 97 % Max: 100 % Supplemental O2: PHYSICAL EXAM: Physical Exam Constitutional: General: She is not in acute distress. Cardiovascular: Rate and Rhythm: Normal rate and regular rhythm. Pulmonary: Effort: Pulmonary effort is normal. Breath sounds: Normal breath sounds. Neurological: Mental Status: She is alert and oriented to person, place, and time. DISCHARGE MEDICATIONS: Medication List CONTINUE taking these medications busPIRone 7.5 MG tablet Commonly known as: Buspar pantoprazole 20 MG EC tablet Commonly known as: ProtoNix 1 PO PROBIOTIC DAILY PO DIET: Adult diet Regular ACTIVITY: No restriction. COMPLEXITY OF FOLLOW UP: [] Moderate Complexity: follow up within 7-14 calendar days (63143) [x] Severe Complexity: follow up within 7 calendar days (28413) FOLLOW UP TESTING, PENDING RESULTS OR REFERRALS AT TRANSITIONAL CARE VISIT: [] Yes [] No PENDING STUDIES: DISPOSITION: Home FACILITY/HOME CARE AGENCY NAME: [place] [address] [address] [place] [address] Schedule an appointment as soon as possible for a visit in 1 week(s) INSTRUCTIONS TO MA/SW: Please call patient on day after discharge (must document patient contacted within 2 business days of discharge). FOLLOW UP QUESTIONS FOR MA/SW: 1. Did you get medications filled and taking them as instructed from discharge? 2. Are you following your discharge instructions from your hospital stay? 3. Please confirm patient is scheduled for a follow up appointment within the above time frame. DISCHARGE TIME: > 31 minutes SIGNED: WILLRAD Richard CNP 12/03/2024, 1:21 PM Cosigned by Dawson Moser Jr., DO at 12/03/2024 3:51 PM EDT Associated attestation - Dawson Moser Jr., - 12/03/2024 3:51 PM EDT Attending Supervising Physician's Attestation Statement for Discharge I performed an independent evaluation of the patient and discussed the management with the resident physician. I reviewed and agree with the findings and plan as documented in their note except as amended in BOLD. Patient seen & examined on day of discharge, Please refer to note dated on the day of discharge 12/03/24 for associated attestation, exam and plan. I reviewed documentation and agree with the documented findings and plan of care, unless otherwise noted Discharge: Time spent on discharge >30 minutes. documented in this encounter [facility] 12-03-2024 Progress note Formatting of t his note might be different from the original. Care Management Progress Note Short Medical why still here: PT remains on CDU this morning - Cardiology did consult and will see pt out pt - now signed off - No additional workup planned at this time. Anticipate dc today. Planned Discharge Disposition: Home or Self Care Barriers/Today we still Wait: Symptomatic control, Clinical stability Length of Stay (Days): 0 GMLOS: No GMLOS Documented [facility] 12-03-2024 Miscellaneous Notes Care Management Progress Note Short Medical why still here: PT remains on CDU this morning - Cardiology did consult and will see pt out pt - now signed off - No additional workup planned at this time. Anticipate dc today. Planned Discharge Disposition: Home or Self Care Barriers/Today we still Wait: Symptomatic control, Clinical stability Length of Stay (Days): 0 GMLOS: No GMLOS Documented documented in this encounter [facility] 12-03-2024 Consult note Associated Order (s): IP CONSULT TO CARDIOLOGY [facility] [place] [facility]Electrophysiology Consult Note Reason for Consult/Chief Complaint: Chest Pain Referring provider: Jeffry Rios Established volumetric weigher: Solange Corcoran History of Present Illness: Dulce Maria Carty is a 29 y.o. female with a history of dysautonomia/orthostatic hypotension, anxiety, IBS, migraines, and asthma who is known to the EP service. She was last seen in clinic with Dr. Corcoran on 11/11/2024. She presents today with a chief complaint of chest pain and rapid heart rate. A tilt Table test on 11/27/2024 showed a response c/w POTS. Her HR increased to 150 bpm with standing, followed by a drop in BP and HR in to the 40s afterwards. EKG normal sinus rhythm. Telemetry reviewed mostly NSR, no sinus pauses, Sinus Tachycardia at times Assessment/Plan # Dysautonomia Orthostatic Hypotension Syndrome/POTS: She clearly has a dysautonomia. It appears mostly related to postural tachycardia followed by a vasodilator response. Today we discussed corlanor, but she would like to get in the near future and therefore we will avoid it. She seemed to feel better when she was started on a beta yeyo in the past. I will start her on a small dose of toprol 25 QD Medications: Scheduled Meds[1] Infusion Medications: Continuous Meds[2] Physical Examination: Vitals: 12/03/24 0438 12/03/24 0508 12/03/24 0601 12/03/24 0729 BP: 123/74 112/74 118/76 101/65 BP Location: Left arm Patient Position: Sitting Pulse: 81 82 93 80 Resp: 16 16 16 Temp: 36.2 C (97.2 F) 36.5 C (97.7 F) TempSrc: Temporal Temporal SpO2: 99% 98% 97% 100% Weight: 162 lb (73.5 kg) Height: 5' 6" (1.676 m) Intake/Output Summary (Last 24 hours) at 12/03/2024 0812 Last data filed at 12/03/2024 0632 Gross per 24 hour Intake 1000 ml Output -- Net 1000 ml Wt Readings from Last 3 Encounters: 12/03/24 162 lb (73.5 kg) 11/27/24 158 lb (71.7 kg) 11/23/24 157 lb (71.2 kg) Physical Exam Constitutional: Not in distress. Well nourished. Adequately hydrated Psychiatric: A &O x 3. Medical insight good NMT: Oral mucosa is pink and moist Neck: No JVD. Respiratory: Lungs are clear bilateral Cardiac exam: Rhythm: Regular rate and rhythm; Normal S1 and S2 Murmur: No Other: No rub; no gallop Vasc: Peripheral pulses DP/PT palpable bilaterally Abdomen: Soft nontender Extremities: No LE edema Skin: Warm to touch and well perfused Laboratory Tests: TROPONIN I, CONVENTIONAL SENSITIVITY CK Date Value Ref Range Status 10/07/2024 56 30 - 185 U/L Final CK-MB Date Value Ref Range Status 11/12/2024 0 <5 % Final TROPONIN I Date Value Ref Range Status 05/10/2019 <0.012 0.000 - 0.034 ng/mL Final Comment: . TROPONIN I, HIGH SENSITIVITY Troponin HS Serial Baseline Date Value Ref Range Status 12/03/2024 <3 <=14 ng/L Final Comment: In individuals presenting with symptoms > 2h, a baseline troponin <= 5 ng/L suggests acute cardiac injury is unlikely and further serial testing is generally not indicated. 11/14/2024 <3 <=14 ng/L Final Comment: In individuals presenting with symptoms > 2h, a baseline troponin <= 5 ng/L suggests acute cardiac injury is unlikely and further serial testing is generally not indicated. 10/30/2024 <3 <=14 ng/L Final Comment: In individuals presenting with symptoms > 2h, a baseline troponin <= 5 ng/L suggests acute cardiac injury is unlikely and further serial testing is generally not indicated. 10/28/2024 <3 <=14 ng/L Final Comment: In individuals presenting with symptoms > 2h, a baseline troponin <= 5 ng/L suggests acute cardiac injury is unlikely and further serial testing is generally not indicated. 10/27/2024 <3 <=14 ng/L Final Comment: In individuals presenting with symptoms > 2h, a baseline troponin <= 5 ng/L suggests acute cardiac injury is unlikely and further serial testing is generally not indicated. 2h Troponin HS (Serial 2nd Troponin) Date Value Ref Range Status 12/03/2024 <3 <=14 ng/L Final Comment: 2h troponin (2nd troponin) samples collected between 1h 40 min and 2h and 20 min of the baseline collection time can be utilized to interpret delta troponins as per Summa algorithms. Samples collected outside this timeframe need to be interpreted clinically. Delta value was unable to be calculated as both baseline and serial troponin tests were below the level of quantitation. As both baseline and 2h troponin values are below the level of quantitation, acute cardiac injury is unlikely. 10/31/2024 <3 <=14 ng/L Final Comment: Delta value was unable to be calculated as both baseline and serial troponin tests were below the level of quantitation. As both baseline and 2h troponin values are below the level of quantitation, acute cardiac injury is unlikely. 10/28/2024 <3 <=14 ng/L Final Comment: Delta value was unable to be calculated as both baseline and serial troponin tests were below the level of quantitation. As both baseline and 2h troponin values are below the level of quantitation, acute cardiac injury is unlikely. 10/26/2024 <3 <=14 ng/L Final Comment: 2h troponin (2nd troponin) samples collected between 1h 40 min and 2h and 20 min of the baseline collection time can be utilized to interpret delta troponins as per Summa algorithms. Samples collected outside this timeframe need to be interpreted clinically. Delta value was unable to be calculated as both baseline and serial troponin tests were below the level of quantitation. As both baseline and 2h troponin values are below the level of quantitation, acute cardiac injury is unlikely. 10/07/2024 <3 <=14 ng/L Final Comment: Delta value was unable to be calculated as both baseline and serial troponin tests were below the level of quantitation. As both baseline and 2h troponin values are below the level of quantitation, acute cardiac injury is unlikely. No results found for: TROPDELTBASE No results found for: "TROPHS3" No results found for: TROPDELTSEC Recent Labs 12/03/24331 NA 141 K 3.9 CL 109* CO2 23 BUN 16 CREATININE 0.88 EGFR >90.0 Recent Labs 12/03/24331 WBC 5.4 HGB 13.7 HCT 39.9 MCV 84.2 PLT 179 No results found for: "HGBA1C" Lab Results Component Value Date TSH 0.47 11/23/2024 Lab Results Component Value Date CHOL 240 (H) 10/29/2024 CHOL 229 (A) 04/07/2021 Lab Results Component Value Date HDL 103 10/29/2024 HDL 127 (A) 04/07/2021 Lab Results Component Value Date LDLCALC 127 (H) 10/29/2024 Lab Results Component Value Date TRIG 51 10/29/2024 TRIG 38 04/07/2021 No results found for: "CHOLHDL" No results found for: LDLCHOLESTER Recent Labs 12/03/24331 BNP <16 No results for input(s): "INR" in the last 72 hours. Lab Results Component Value Date IRON 93 02/17/2022 TIBC 345 01/25/2022 FERRITIN 39 08/02/2022 Reports reviewed: Last Echo 10/28/24 TRANSTHORACIC ECHOCARDIOGRAM (TTE) COMPLETE (CONTRAST/BUBBLE/3D PRN) 10/29/2024 3:43 PM (Final) Interpretation Summary Left Ventricle: Left ventricle size is normal. Normal wall thickness. Normal left ventricular systolic function. EF by 2D Simpsons Biplane is 54%. Normal wall motion. Normal diastolic function. Right Ventricle: Right ventricle size is normal. Normal systolic function. Tricuspid Valve: Normal RVSP. RVSP is 25 mmHg. Aorta: Not well visualized. Normal sized sinuses of Valsalva and ascending aorta. No significant valvular abnormalities. Signed by: Joe Franco DO on 10/29/2024 3:43 PM EF BP Date Value Ref Range Status 10/29/2024 54 (A) 55 - 100 % Final Samer MD Nikki DATE of SERVICE: 12/03/2024 I, Solange Corcoran MD, saw and evaluated the patient. I personally obtained the ordaz and critical portions of the history and physical exam. I reviewed the chart, the fellow's documentation, and discussed the patient with the fellow. I agree with the fellow's medical decision making and have edited the note to reflect my clinical findings and my assessment and plan. Solange Corcoran MD [1] busPIRone, 7.5 mg, Oral, TID enoxaparin, 40 mg, SubCUTAneous, Daily influenza, 0.5 mL, IntraMUSCular, Once pantoprazole, 20 mg, Oral, qAM AC [2] [facility] 12-03-2024 Consult note Associated Order (s): IP CONSULT TO CARDIOLOGY [facility] [place] [facility] [place]iology Consult Note Reason for Consult/Chief Complaint: Chest Pain Referring provider: Jeffry Rios Established volumetric weigher: Solange Corcoran History of Present Illness: May Machelle is a 29 y.o. female with a history of dysautonomia/orthostatic hypotension, anxiety, IBS, migraines, and asthma who is known to the EP service. She was last seen in clinic with Dr. Corcoran on 11/11/2024. She presents today with a chief complaint of chest pain and rapid heart rate. A tilt Table test on 11/27/2024 showed a response c/w POTS. Her HR increased to 150 bpm with standing, followed by a drop in BP and HR in to the 40s afterwards. EKG normal sinus rhythm. Telemetry reviewed mostly NSR, no sinus pauses, Sinus Tachycardia at times Assessment/Plan # Dysautonomia Orthostatic Hypotension Syndrome/POTS: She clearly has a dysautonomia. It appears mostly related to postural tachycardia followed by a vasodilator response. Today we discussed corlanor, but she would like to get in the near future and therefore we will avoid it. She seemed to feel better when she was started on a beta yeyo in the past. I will start her on a small dose of toprol 25 QD Medications: Scheduled Meds[1] Infusion Medications: Continuous Meds[2] Physical Examination: Vitals: 12/03/24 0438 12/03/24 0508 12/03/24 0601 12/03/24 0729 BP: 123/74 112/74 118/76 101/65 BP Location: Left arm Patient Position: Sitting Pulse: 81 82 93 80 Resp: 16 16 16 Temp: 36.2 C (97.2 F) 36.5 C (97.7 F) TempSrc: Temporal Temporal SpO2: 99% 98% 97% 100% Weight: 162 lb (73.5 kg) Height: 5' 6" (1.676 m) Intake/Output Summary (Last 24 hours) at 12/03/2024 0812 Last data filed at 12/03/2024 0632 Gross per 24 hour Intake 1000 ml Output -- Net 1000 ml Wt Readings from Last 3 Encounters: 12/03/24 162 lb (73.5 kg) 11/27/24 158 lb (71.7 kg) 11/23/24 157 lb (71.2 kg) Physical Exam Constitutional: Not in distress. Well nourished. Adequately hydrated Psychiatric: A &O x 3. Medical insight good NMT: Oral mucosa is pink and moist Neck: No JVD. Respiratory: Lungs are clear bilateral Cardiac exam: Rhythm: Regular rate and rhythm; Normal S1 and S2 Murmur: No Other: No rub; no gallop Vasc: Peripheral pulses DP/PT palpable bilaterally Abdomen: Soft nontender Extremities: No LE edema Skin: Warm to touch and well perfused Laboratory Tests: TROPONIN I, CONVENTIONAL SENSITIVITY CK Date Value Ref Range Status 10/07/2024 56 30 - 185 U/L Final CK-MB Date Value Ref Range Status 11/12/2024 0 <5 % Final TROPONIN I Date Value Ref Range Status 05/10/2019 <0.012 0.000 - 0.034 ng/mL Final Comment: . TROPONIN I, HIGH SENSITIVITY Troponin HS Serial Baseline Date Value Ref Range Status 12/03/2024 <3 <=14 ng/L Final Comment: In individuals presenting with symptoms > 2h, a baseline troponin <= 5 ng/L suggests acute cardiac injury is unlikely and further serial testing is generally not indicated. 11/14/2024 <3 <=14 ng/L Final Comment: In individuals presenting with symptoms > 2h, a baseline troponin <= 5 ng/L suggests acute cardiac injury is unlikely and further serial testing is generally not indicated. 10/30/2024 <3 <=14 ng/L Final Comment: In individuals presenting with symptoms > 2h, a baseline troponin <= 5 ng/L suggests acute cardiac injury is unlikely and further serial testing is generally not indicated. 10/28/2024 <3 <=14 ng/L Final Comment: In individuals presenting with symptoms > 2h, a baseline troponin <= 5 ng/L suggests acute cardiac injury is unlikely and further serial testing is generally not indicated. 10/27/2024 <3 <=14 ng/L Final Comment: In individuals presenting with symptoms > 2h, a baseline troponin <= 5 ng/L suggests acute cardiac injury is unlikely and further serial testing is generally not indicated. 2h Troponin HS (Serial 2nd Troponin) Date Value Ref Range Status 12/03/2024 <3 <=14 ng/L Final Comment: 2h troponin (2nd troponin) samples collected between 1h 40 min and 2h and 20 min of the baseline collection time can be utilized to interpret delta troponins as per Summa algorithms. Samples collected outside this timeframe need to be interpreted clinically. Delta value was unable to be calculated as both baseline and serial troponin tests were below the level of quantitation. As both baseline and 2h troponin values are below the level of quantitation, acute cardiac injury is unlikely. 10/31/2024 <3 <=14 ng/L Final Comment: Delta value was unable to be calculated as both baseline and serial troponin tests were below the level of quantitation. As both baseline and 2h troponin values are below the level of quantitation, acute cardiac injury is unlikely. 10/28/2024 <3 <=14 ng/L Final Comment: Delta value was unable to be calculated as both baseline and serial troponin tests were below the level of quantitation. As both baseline and 2h troponin values are below the level of quantitation, acute cardiac injury is unlikely. 10/26/2024 <3 <=14 ng/L Final Comment: 2h troponin (2nd troponin) samples collected between 1h 40 min and 2h and 20 min of the baseline collection time can be utilized to interpret delta troponins as per Summa algorithms. Samples collected outside this timeframe need to be interpreted clinically. Delta value was unable to be calculated as both baseline and serial troponin tests were below the level of quantitation. As both baseline and 2h troponin values are below the level of quantitation, acute cardiac injury is unlikely. 10/07/2024 <3 <=14 ng/L Final Comment: Delta value was unable to be calculated as both baseline and serial troponin tests were below the level of quantitation. As both baseline and 2h troponin values are below the level of quantitation, acute cardiac injury is unlikely. No results found for: TROPDELTBASE No results found for: "TROPHS3" No results found for: TROPDELTSEC Recent Labs 12/03/24331 NA 141 K 3.9 CL 109* CO2 23 BUN 16 CREATININE 0.88 EGFR >90.0 Recent Labs 12/03/24331 WBC 5.4 HGB 13.7 HCT 39.9 MCV 84.2 PLT 179 No results found for: "HGBA1C" Lab Results Component Value Date TSH 0.47 11/23/2024 Lab Results Component Value Date CHOL 240 (H) 10/29/2024 CHOL 229 (A) 04/07/2021 Lab Results Component Value Date HDL 103 10/29/2024 HDL 127 (A) 04/07/2021 Lab Results Component Value Date LDLCALC 127 (H) 10/29/2024 Lab Results Component Value Date TRIG 51 10/29/2024 TRIG 38 04/07/2021 No results found for: "CHOLHDL" No results found for: LDLCHOLESTER Recent Labs 12/03/24331 BNP <16 No results for input(s): "INR" in the last 72 hours. Lab Results Component Value Date IRON 93 02/17/2022 TIBC 345 01/25/2022 FERRITIN 39 08/02/2022 Reports reviewed: Last Echo 10/28/24 TRANSTHORACIC ECHOCARDIOGRAM (TTE) COMPLETE (CONTRAST/BUBBLE/3D PRN) 10/29/2024 3:43 PM (Final) Interpretation Summary Left Ventricle: Left ventricle size is normal. Normal wall thickness. Normal left ventricular systolic function. EF by 2D Simpsons Biplane is 54%. Normal wall motion. Normal diastolic function. Right Ventricle: Right ventricle size is normal. Normal systolic function. Tricuspid Valve: Normal RVSP. RVSP is 25 mmHg. Aorta: Not well visualized. Normal sized sinuses of Valsalva and ascending aorta. No significant valvular abnormalities. Signed by: Joe Franco DO on 10/29/2024 3:43 PM EF BP Date Value Ref Range Status 10/29/2024 54 (A) 55 - 100 % Final Samer MD Nikki DATE of SERVICE: 12/03/2024 I, Solange Corcoran MD, saw and evaluated the patient. I personally obtained the ordaz and critical portions of the history and physical exam. I reviewed the chart, the fellow's documentation, and discussed the patient with the fellow. I agree with the fellow's medical decision making and have edited the note to reflect my clinical findings and my assessment and plan. Solange Corcoran MD [1] busPIRone, 7.5 mg, Oral, TID enoxaparin, 40 mg, SubCUTAneous, Daily influenza, 0.5 mL, IntraMUSCular, Once pantoprazole, 20 mg, Oral, qAM AC [2] documented in this encounter [facility] 12-03-2024 History and physical note Attending History and Physical Admit Date: 12/03/2024 PCP: Zachariah Rome DO CHIEF COMPLAINT: Chest pain, palpitations Reason for Admission: Chest pain, palpitations History Obtained From: patient HISTORY OF PRESENT ILLNESS: Dulce Maria is a 29 y.o. female with a history of Anxiety, asthma, dysautonomia/orthostatic hypotension, IBS, migraines that presented to the ED 12/03/24 with complaints of chest pain. Pt follows with Dr Love, recent Tilt table test. She has had episodes of palpitations, chest pain, lightheadedness, muscle cramping and tingling in her extremities that initially started mid October 2024 and have gotten progressively more frequent. Symptoms in ED where reported to be no different from her prior episodes. In the ED, she was afebrile, HR ranged 81-100. SBP ranged 112-134. BMP, troponin, proBNP, CBC, chest xray unremarkable, EKG showed SR rate 87 qtc 453. Administered 1 L NS bolus. Admitted to CDU for further evaluation. Pt reports frustration with her ongoing symptoms. No new symptoms she just feels they are more frequent. Her chest pain she describes as tender to touch. She has intermittent palpitations and lightheadedness that improve with rest. Denies fever, chills, SOB, cough, abdominal pain, nausea, vomiting, dysuria. Per chart review, pt has been seen in the ED 10 times since the end of September for above symptoms. She was admitted to [facility] on 10/10/24. She had unremarkable MRI and EEG. She was admitted to [facility] on 10/28/24 and seen by Endocrinology. She had normal thyroid function tests, she was found to have a thyroid nodule that was not considered the etiology of her symptoms. She was seen by psychiatry and started on gabapentin and vistaril prn for anxiety. She followed up with neurology on 11/10/24 and vestibular testing was ordered. She followed up with Cardiology on 11/11/24 and tilt table test was ordered and holter monitor. Holter monitor showed SR with periods of ST. Average HR 87, highest HR 152. Passive tilt test data suggest inappropriate sinus tachycardia, Active tilt test supports a Vagal mediated reaction with cardioinhibitory features and potentially vasodepressor features (which may be confounded bu the hemodynamic resopnse to NTG, although the development of hypotension 4 minutes after NTG suggests a vagal responsse). Lack of vagal mediated findings during passive tilt reduces the specificity of the findings supporting a genuine vagal mediated response during active tilt. Past Medical History: Medical History[1] Past Surgical History: Surgical History[2] Social History: Social History Socioeconomic History Marital status: Spouse name: Not on file Number of children: Not on file Years of education: Not on file Highest education level: Not on file Occupational History Not on file Tobacco Use Smoking status: Never Smokeless tobacco: Former Quit date: 04/05/2016 Vaping Use Vaping status: Never Used Substance and Sexual Activity Alcohol use: Not Currently Drug use: No Comment: caffiene: none Sexual activity: Yes Other Topics Concern Not on file Social History Narrative to Emile Nielson) since 07/21. NS or drinker, no children. 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 Social Drivers of Health Financial Resource Strain: Low Risk (04/20/2021) [facility] Overall Financial Resource Strain (CARDIA) Difficulty of Paying Living Expenses: Not hard at all Food Insecurity: No Food Insecurity (10/10/2024) Received from [facility] Hunger Vital Sign Worried About Running Out of Food in the Last Year: Never true Ran Out of Food in the Last Year: Never true Transportation Needs: No Transportation Needs (12/03/2024) PRAPARE - Transportation Lack of Transportation (Medical): No Lack of Transportation (Non-Medical): No Physical Activity: Sufficiently Active (04/20/2021) Received from [facility] Exercise Vital Sign Days of Exercise per Week: 5 days Minutes of Exercise per Session: 30 min Stress: No Stress Concern Present (04/20/2021) Received from [facility] [place] [facility] [employer] [facility] - Occupational Stress Questionnaire Feeling of Stress : Not at all Social Connections: Moderately Integrated (04/20/2021) Received from [facility] Social Connection and Isolation Panel [NHANES] Frequency of Communication with Friends and Family: More than three times a week Frequency of Social Gatherings with Friends and Family: Twice a week Attends Mosque Services: More than 4 times per year Active Member of Clubs or Organizations: No Attends Club or Organization Meetings: Never Marital Status: Intimate Partner Violence: Not At Risk (12/03/2024) Humiliation, Afraid, Rape, and Kick questionnaire Fear of Current or Ex-Partner: No Emotionally Abused: No Physically Abused: No Sexually Abused: No Housing Stability: Low Risk (12/03/2024) Housing Stability Vital Sign Unable to Pay for Housing in the Last Year: No Number of Times Moved in the Last Year: 0 Homeless in the Last Year: No Family History: Family History[3] Medications Prior to Admission: Current Medications[4] Medications Reconciliation: Medication were reviewed and verified as accurate with patient. Allergies: Allergies[5] REVIEW OF SYSTEMS: 10 point ROS obtained, as per HPI, otherwise NEG Vitals: BP 101/65 Pulse 80 Temp 36.5 C (97.7 F) (Temporal) Resp 16 Ht 5' 6" (1.676 m) Wt 162 lb (73.5 kg) SpO2 100% BMI 26.15 kg/m BMI Classification: Overweight (BMI 25.0-29.9) Pulse Ox: SpO2 Av % Min: 97 % Max: 100 % Supplemental O2: PHYSICAL EXAM: Physical Exam Constitutional: General: She is not in acute distress. Cardiovascular: Rate and Rhythm: Normal rate and regular rhythm. Pulmonary: Effort: Pulmonary effort is normal. Breath sounds: Normal breath sounds. Neurological: Mental Status: She is alert and oriented to person, place, and time. DATA: CBC: Recent Labs 12/03/24 0332 WBC 5.4 RBC 4.74 HGB 13.7 HCT 39.9 MCV 84.2 RDW 12.0 PLT 179 BMP: Recent Labs 12/03/24 0332 NA 141 K 3.9 CL 109* CO2 23 BUN 16 CREATININE 0.88 GLUCOSE 112* CALCIUM 8.7 ANIONGAP 9 LIVER PROFILE:No results for input(s): "AST", "ALT", "BILITOT", "ALKPHOS", "PROT" in the last 72 hours. No lab exists for component: LABALBU PT/INR: No results for input(s): "PROTIME", "INR" in the last 72 hours. CARDIAC ENZYMES: No results for input(s): "TROPONINI" in the last 72 hours. Procalcitonin: No results found for: "PROCAL" Urine Culture: Results for orders placed or performed in visit on 05/26/22 Urine culture Collection Time: 05/26/22 2:15 PM Specimen: Urine, Clean Catch Result Value Ref Range Urine Culture Normal urogenital edwina present COVID-19 PCR: No results for input(s): "COVID19" in the last 72 hours. I reviewed: [x] laboratory results [x] radiographic results At the time of today's encounter. Pt was advised of the results. Data: (CAT1) Reviewed 1 notes from different specialty or health system (each=1). (CAT1) Reviewed 3 or more labs/studies ordered by another provider not previously counted (each=1, panels count as 1). (LOW: 2x CAT1 or independent historian MOD: 3x CAT1 or 1x CAT3 EXTENSIVE: 3x CAT1 and 1x CAT3) Assessment Discussed management with the ED provider and agree with hospitalization. Acute, acute on chronic, unstable/uncontrolled chronic problems/diagnoses: Atypical chest pain Dysautonomia Inappropriate sinus tachycardia Stable chronic problems affecting care, new non-acute diagnoses: Anxiety IBS Migraines Plan As a result of the above findings & factors, the following mgmt was pursued: - Monitor on telemetry - consult cardiology - Continue home medications -> buspar, protonix - am labs, replace lytes prn - PT/OT/CM/SW - delirium precautions: increase activity and limit nighttime disturbances - DVT prophylaxis: enoxaparin and encourage ambulation Advance Directive: Full Code Anticipated Discharge - Date - 12/04/24 - Location - Home - Pending the following - Cardiology Total time spent (which include face to face and non face to face encounters) : 75 minutes. Extended Emergency Contact Information Primary Emergency Contact: Emile Carty Relation: Spouse Holly Abdalla, DIAGNOSTIC IMAGING MANAGER - BUILD AND DEPLOYMENT ENGINEER Division of Hospitalist Medicine [facility] [1] Past Medical History: Diagnosis Date Anxiety Asthma ([facility]) 09/2016 Breast cyst, left 06/03/2021 Chronic sinusitis 12/2016 ENT eval per [facility] Dysautonomia ([facility]) 12/03/2024 GERD (gastroesophageal reflux disease) 07/2016 EGD per [facility] Hypothyroid 2009 IBS (irritable bowel syndrome) 02/2016 constipation - Colonoscopy per [facility] Migraines Neck pain Palpitations [2] Past Surgical History: Procedure Laterality Date BREAST LUMPECTOMY 08/2024 COLONOSCOPY 02/2016 [facility] TONSILLECTOMY (HISTORICAL) 1999 UPPER GASTROINTESTINAL ENDOSCOPY 11/2016 [facility] [3] Family History Problem Relation Name Age of Onset Ovarian cancer Neg Hx Diabetes Mother 35.00 on insulin at > 50 Lung cancer Maternal Grandfather Diabetes Maternal Cousin Gayle Colon cancer Maternal Grandmother 80.00 No Known Problems Paternal Grandmother Thyroid cancer Maternal Cousin Gayle Pancreatic cancer Mother Breast cancer Neg Hx No Known Problems Paternal Grandfather Other ([id number]) Father Danya 54.00 MVA in 2011 No Known Problems Sister Prostate cancer Maternal Grandfather [4] Current Facility-Administered Medications: acetaminophen (Tylenol) tablet 650 mg, 650 mg, Oral, q6h PRN OR acetaminophen (Tylenol) suppository 650 mg, 650 mg, Rectal, q6h PRN, Blayne Bertrand DO busPIRone (Buspar) tablet 7.5 mg, 7.5 mg, Oral, TID, Blayne Bertrand DO, 7.5 mg at 12/03/24 0751 enoxaparin (Lovenox) syringe 40 mg, 40 mg, SubCUTAneous, Daily, Blayne Bertrand DO influenza vaccine tiss-cult subunt (Flucelvax) STANDARD-DOSE injection 0.5 mL, 0.5 mL, IntraMUSCular, Once, Blayne Powersz, DO pantoprazole (ProtoNix) EC tablet 20 mg, 20 mg, Oral, qAM AC, Blayne Milligan Pentz, DO, 20 mg at 12/03/24 0639 polyethylene glycol (PEG) 3350 (Miralax) packet 17 g, 17 g, Oral, Daily PRN, Blayne Milligan Pentz, DO prochlorperazine (Compazine) tablet 10 mg, 10 mg, Oral, q6h PRN OR prochlorperazine (Compazine) injection 10 mg, 10 mg, IntraVENous, q6h PRN OR prochlorperazine (Compazine) suppository 25 mg, 25 mg, Rectal, q12h PRN, Blayne Bertrand, DO [5] Allergies Allergen Reactions Nitrofurantoin Other reaction(s): difficulty breathing Alprazolam Unknown Quetiapine Other Cosigned by Lawrence Hoffmann MD at 12/03/2024 2:29 PM EDT [facility] 12-03-2024 Note [facility] 12-03-2024 History and physical note Attending History and Physical Admit Date: 12/03/2024 PCP: Zachariah Rome DO CHIEF COMPLAINT: Chest pain, palpitations Reason for Admission: Chest pain, palpitations History Obtained From: patient HISTORY OF PRESENT ILLNESS: Dulce Maria is a 29 y.o. female with a history of Anxiety, asthma, dysautonomia/orthostatic hypotension, IBS, migraines that presented to the ED 12/03/24 with complaints of chest pain. Pt follows with Dr Love, recent Tilt table test. She has had episodes of palpitations, chest pain, lightheadedness, muscle cramping and tingling in her extremities that initially started mid October 2024 and have gotten progressively more frequent. Symptoms in ED where reported to be no different from her prior episodes. In the ED, she was afebrile, HR ranged 81-100. SBP ranged 112-134. BMP, troponin, proBNP, CBC, chest xray unremarkable, EKG showed SR rate 87 qtc 453. Administered 1 L NS bolus. Admitted to CDU for further evaluation. Pt reports frustration with her ongoing symptoms. No new symptoms she just feels they are more frequent. Her chest pain she describes as tender to touch. She has intermittent palpitations and lightheadedness that improve with rest. Denies fever, chills, SOB, cough, abdominal pain, nausea, vomiting, dysuria. Per chart review, pt has been seen in the ED 10 times since the end of September for above symptoms. She was admitted to [facility] on 10/10/24. She had unremarkable MRI and EEG. She was admitted to [facility] on 10/28/24 and seen by Endocrinology. She had normal thyroid function tests, she was found to have a thyroid nodule that was not considered the etiology of her symptoms. She was seen by psychiatry and started on gabapentin and vistaril prn for anxiety. She followed up with neurology on 11/10/24 and vestibular testing was ordered. She followed up with Cardiology on 11/11/24 and tilt table test was ordered and holter monitor. Holter monitor showed SR with periods of ST. Average HR 87, highest HR 152. Passive tilt test data suggest inappropriate sinus tachycardia, Active tilt test supports a Vagal mediated reaction with cardioinhibitory features and potentially vasodepressor features (which may be confounded bu the hemodynamic resopnse to NTG, although the development of hypotension 4 minutes after NTG suggests a vagal responsse). Lack of vagal mediated findings during passive tilt reduces the specificity of the findings supporting a genuine vagal mediated response during active tilt. Past Medical History: Medical History[1] Past Surgical History: Surgical History[2] Social History: Social History Socioeconomic History Marital status: Spouse name: Not on file Number of children: Not on file Years of education: Not on file Highest education level: Not on file Occupational History Not on file Tobacco Use Smoking status: Never Smokeless tobacco: Former Quit date: 04/05/2016 Vaping Use Vaping status: Never Used Substance and Sexual Activity Alcohol use: Not Currently Drug use: No Comment: caffiene: none Sexual activity: Yes Other Topics Concern Not on file Social History Narrative to Emile Nielson) since 07/21. NS or drinker, no children. 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 Social Drivers of Health Financial Resource Strain: Low Risk (04/20/2021) Received from [facility] Overall Financial Resource Strain (CARDIA) Difficulty of Paying Living Expenses: Not hard at all Food Insecurity: No Food Insecurity (10/10/2024) Received from [facility] Hunger Vital Sign Worried About Running Out of Food in the Last Year: Never true Ran Out of Food in the Last Year: Never true Transportation Needs: No Transportation Needs (12/03/2024) PRAPARE - Transportation Lack of Transportation (Medical): No Lack of Transportation (Non-Medical): No Physical Activity: Sufficiently Active (04/20/2021) Received from [facility] Exercise Vital Sign Days of Exercise per Week: 5 days Minutes of Exercise per Session: 30 min Stress: No Stress Concern Present (04/20/2021) Received from [facility] [place] [employer] - Occupational Stress Questionnaire Feeling of Stress : Not at all Social Connections: Moderately Integrated (04/20/2021) Received from [facility] Social Connection and Isolation Panel [NHANES] Frequency of Communication with Friends and Family: More than three times a week Frequency of Social Gatherings with Friends and Family: Twice a week Attends Mosque Services: More than 4 times per year Active Member of Clubs or Organizations: No Attends Club or Organization Meetings: Never Marital Status: Intimate Partner Violence: Not At Risk (12/03/2024) Humiliation, Afraid, Rape, and Kick questionnaire Fear of Current or Ex-Partner: No Emotionally Abused: No Physically Abused: No Sexually Abused: No Housing Stability: Low Risk (12/03/2024) Housing Stability Vital Sign Unable to Pay for Housing in the Last Year: No Number of Times Moved in the Last Year: 0 Homeless in the Last Year: No Family History: Family History[3] Medications Prior to Admission: Current Medications[4] Medications Reconciliation: Medication were reviewed and verified as accurate with patient. Allergies: Allergies[5] REVIEW OF SYSTEMS: 10 point ROS obtained, as per HPI, otherwise NEG Vitals: BP 101/65 Pulse 80 Temp 36.5 C (97.7 F) (Temporal) Resp 16 Ht 5' 6" (1.676 m) Wt 162 lb (73.5 kg) SpO2 100% BMI 26.15 kg/m BMI Classification: Overweight (BMI 25.0-29.9) Pulse Ox: SpO2 Av % Min: 97 % Max: 100 % Supplemental O2: PHYSICAL EXAM: Physical Exam Constitutional: General: She is not in acute distress. Cardiovascular: Rate and Rhythm: Normal rate and regular rhythm. Pulmonary: Effort: Pulmonary effort is normal. Breath sounds: Normal breath sounds. Neurological: Mental Status: She is alert and oriented to person, place, and time. DATA: CBC: Recent Labs 12/03/24 0332 WBC 5.4 RBC 4.74 HGB 13.7 HCT 39.9 MCV 84.2 RDW 12.0 PLT 179 BMP: Recent Labs 12/03/24 0332 NA 141 K 3.9 CL 109* CO2 23 BUN 16 CREATININE 0.88 GLUCOSE 112* CALCIUM 8.7 ANIONGAP 9 LIVER PROFILE:No results for input(s): "AST", "ALT", "BILITOT", "ALKPHOS", "PROT" in the last 72 hours. No lab exists for component: LABALBU PT/INR: No results for input(s): "PROTIME", "INR" in the last 72 hours. CARDIAC ENZYMES: No results for input(s): "TROPONINI" in the last 72 hours. Procalcitonin: No results found for: "PROCAL" Urine Culture: Results for orders placed or performed in visit on 05/26/22 Urine culture Collection Time: 05/26/22 2:15 PM Specimen: Urine, Clean Catch Result Value Ref Range Urine Culture Normal urogenital edwina present COVID-19 PCR: No results for input(s): "COVID19" in the last 72 hours. I reviewed: [x] laboratory results [x] radiographic results At the time of today's encounter. Pt was advised of the results. Data: (CAT1) Reviewed 1 notes from different specialty or health system (each=1). (CAT1) Reviewed 3 or more labs/studies ordered by another provider not previously counted (each=1, panels count as 1). (LOW: 2x CAT1 or independent historian MOD: 3x CAT1 or 1x CAT3 EXTENSIVE: 3x CAT1 and 1x CAT3) Assessment Discussed management with the ED provider and agree with hospitalization. Acute, acute on chronic, unstable/uncontrolled chronic problems/diagnoses: Atypical chest pain Dysautonomia Inappropriate sinus tachycardia Stable chronic problems affecting care, new non-acute diagnoses: Anxiety IBS Migraines Plan As a result of the above findings & factors, the following mgmt was pursued: - Monitor on telemetry - consult cardiology - Continue home medications -> buspar, protonix - am labs, replace lytes prn - PT/OT/CM/SW - delirium precautions: increase activity and limit nighttime disturbances - DVT prophylaxis: enoxaparin and encourage ambulation Advance Directive: Full Code Anticipated Discharge - Date - 12/04/24 - Location - Home - Pending the following - Cardiology Total time spent (which include face to face and non face to face encounters) : 75 minutes. Extended Emergency Contact Information Primary Emergency Contact: Emile Carty Dalbo Relation: Spouse Holly Abdalla, DIAGNOSTIC IMAGING MANAGER - BUILD AND DEPLOYMENT ENGINEER Division of Hospitalist Medicine Acute care [facility] [1] Past Medical History: Diagnosis Date Anxiety Asthma ([facility]) 09/2016 Breast cyst, left 06/03/2021 Chronic sinusitis 12/2016 [facility] Dysautonomia ([facility]) 12/03/2024 GERD (gastroesophageal reflux disease) 07/2016 EGD per [facility] Hypothyroid 2008 IBS (irritable bowel syndrome) 02/2016 constipation - Colonoscopy per [facility] Migraines Neck pain Palpitations [2] Past Surgical History: Procedure Laterality Date BREAST LUMPECTOMY 08/2024 COLONOSCOPY 02/2016 [facility] TONSILLECTOMY (HISTORICAL) 1999 UPPER GASTROINTESTINAL ENDOSCOPY 11/2016 [facility] [3] Family History Problem Relation Name Age of Onset Ovarian cancer Neg Hx Diabetes Mother 35.00 on insulin at > 50 Lung cancer Maternal Grandfather Diabetes Maternal Cousin Gayle Colon cancer Maternal Grandmother 80.00 No Known Problems Paternal Grandmother Thyroid cancer Maternal Cousin Gayle Pancreatic cancer Mother Breast cancer Neg Hx No Known Problems Paternal Grandfather Other ([id number]) Father Danya 54.00 MVA in 2011 No Known Problems Sister Prostate cancer Maternal Grandfather [4] Current Facility-Administered Medications: acetaminophen (Tylenol) tablet 650 mg, 650 mg, Oral, q6h PRN OR acetaminophen (Tylenol) suppository 650 mg, 650 mg, Rectal, q6h PRN, Blayne Powersz, DO busPIRone (Buspar) tablet 7.5 mg, 7.5 mg, Oral, TID, Blayne Bertrand, DO, 7.5 mg at 12/03/24 0751 enoxaparin (Lovenox) syringe 40 mg, 40 mg, SubCUTAneous, Daily, Blayne Powersz, DO influenza vaccine tiss-cult subunt (Flucelvax) STANDARD-DOSE injection 0.5 mL, 0.5 mL, IntraMUSCular, Once, Blayne Bertrand, DO pantoprazole (ProtoNix) EC tablet 20 mg, 20 mg, Oral, qAM AC, Blayne Bertrand, DO, 20 mg at 12/03/24 0639 polyethylene glycol (PEG) 3350 (Miralax) packet 17 g, 17 g, Oral, Daily PRN, Blayne Powersz, DO prochlorperazine (Compazine) tablet 10 mg, 10 mg, Oral, q6h PRN OR prochlorperazine (Compazine) injection 10 mg, 10 mg, IntraVENous, q6h PRN OR prochlorperazine (Compazine) suppository 25 mg, 25 mg, Rectal, q12h PRN, Blayne Bertrand, DO [5] Allergies Allergen Reactions Nitrofurantoin Other reaction(s): difficulty breathing Alprazolam Unknown Quetiapine Other Cosigned by Lawrence Hoffmann MD at 12/03/2024 2:29 PM EDT documented in this encounter [facility] 12-03-2024 Nurse Note 0603: Pt arrived from [facility]. Admission complete. Provider notified of patient's arrival. Patient oriented to room, call light within reach. [facility] 12-03-2024 Emergency department Note Pt pressed call button inquiring on how long it would take for transport. She states if it is going to be 1.5 to 2 hours, she may have spouse drive her. Advised pt that at this time we are still waiting for a call from CDU to accept the pt, then need to wait for bed assignment, so we cannot send her without all that being completed. [facility] 12-03-2024 Emergency department Note Pt pressed call button inquiring on how long it would take for transport. She states if it is going to be 1.5 to 2 hours, she may have spouse drive her. Advised pt that at this time we are still waiting for a call from CDU to accept the pt, then need to wait for bed assignment, so we cannot send her without all that being completed. Labs obtained. Pt sitting upright on cot, repeatedly moving legs on bed. Pt again stating she feels like she is going to pass out. Pt is very anxious appearing. VS still stable. Pts spouse and 2 young children to bedside. Call to [facility] for gyroscopic instrument mechanic/ transfer. Pt pressed call button again, and again stating something does not feel right, she feels like she is going to pass out. VSS, IV fluids infusing without difficulty. Dr. Rios was already aware of pts c/o, and is now going to bedside to assess. Patient with call light on stating she feels like she is going to pass out. Pt began mouth breathing and looking at cardiac cath lab manager. HR increased approximately 20 beats per minute then decreased to baseline upon entering room. Pt offered reassurance and Dr. Rios notified. No immediate orders received. Pt ambulatory to ED2 with c/o chest pain. Pain is mainly left chest but radiates across whole chest into both shoulders. Pt states she woke at 0115 with heart racing, shortness of breath, and chest pain to neck and shoulders. Pain rated 5/10 at present. +hx GERD and palpitations as well as anxiety. Pt in gown, EKG performed, pt on monitor. Pr resting on cot with call light in reach, no s/s of distress. EMERGENCY DEPARTMENT ENCOUNTER Pt Name: Dulce Maria Carty Birthdate 1995 Date of evaluation: 12/03/2024 ED Provider: Jeffry Rios DO CHIEF COMPLAINT Chief Complaint Patient presents with Chest Pain HISTORY OF PRESENT ILLNESS (Location/Symptom, Timing/Onset, Context/Setting, Quality, Duration, Modifying Factors, Severity) Note limiting factors. I wore appropriate PPE for the entirety of this encounter. HPI Dulce Maria Carty is a 29 y.o. female who presents to the emergency department With the chief complaint of chest pain. However, patient notes a longstanding history of episodes that include racing heart rate chest pain when her heart is going very fast, lightheadedness, tingling in her extremities, and muscle cramping. She follows with Dr. Love for this problem, who she is supposed to see today, and had a recent tilt table test. She currently denies chest pain as a experiencing characteristic tingling in her hands and left foot. She notes this is not different compared to prior episodes but is frustrated with the frequency of her symptoms recently. When asked directly what has helped with her symptoms in the past she notes IV fluids sometimes helpful but she gets little relief from antinausea medications and would like to avoid things like muscle relaxers as she is breast-feeding currently. Nursing Notes were reviewed. REVIEW OF SYSTEMS Review of Systems PAST MEDICAL HISTORY Medical History[1] SURGICAL HISTORY Surgical History[2] CURRENT MEDICATIONS Previous Medications BUSPIRONE (BUSPAR) 7.5 MG TABLET Take 7.5 mg by mouth 3 times daily. PANTOPRAZOLE (PROTONIX) 20 MG EC TABLET Take 20 mg by mouth every morning (before breakfast). MV-MIN-FE FUM-FA-DHA ( 1 PO) Take by mouth. PROBIOTIC PRODUCT (PROBIOTIC DAILY PO) Take by mouth. ALLERGIES Nitrofurantoin, Alprazolam, and Quetiapine FAMILY HISTORY Family History[3] SOCIAL HISTORY Social History[4] SCREENINGS PHYSICAL EXAM ED Triage Vitals [12/03/24 0212] Temp Heart Rate Resp BP 36.6 C (97.9 F) 88 16 (!) 132/81 SpO2 Temp Source Heart Rate Source Patient Position 100 % Oral Monitor -- BP Location FiO2 (%) -- -- Physical Exam Constitutional: General: She is not in acute distress. Appearance: She is not ill-appearing or diaphoretic. HENT: Head: Normocephalic and atraumatic. Nose: Nose normal. No rhinorrhea. Mouth/Throat: Mouth: Mucous membranes are moist. Pharynx: Oropharynx is clear. No posterior oropharyngeal erythema. Eyes: General: No scleral icterus. Extraocular Movements: Extraocular movements intact. Conjunctiva/sclera: Conjunctivae normal. Pupils: Pupils are equal, round, and reactive to light. Cardiovascular: Comments: Initial tachycardia with sinus rhythm on the monitor which slows during evaluation. 2+ bilateral radial pulses. Warm distal extremities throughout. Pulmonary: Effort: Pulmonary effort is normal. No respiratory distress. Breath sounds: No stridor. Abdominal: General: There is no distension. Palpations: Abdomen is soft. Tenderness: There is no abdominal tenderness. There is no guarding. Musculoskeletal: Right lower leg: No edema. Left lower leg: No edema. Skin: General: Skin is warm and dry. Coloration: Skin is not jaundiced or pale. Neurological: Mental Status: She is alert. Comments: Intact sensation to face trunk and all 4 extremities. Grossly intact strength to upper and lower extremities bilaterally Psychiatric: Mood and Affect: Mood normal. Behavior: Behavior normal. DIAGNOSTIC RESULTS RADIOLOGY (Per Emergency Physician): Interpretation per the Radiologist below, if available at the time of this note: XR chest 1 view Final Result Normal chest x-ray. Report Dictated on Electronically Signed By: Danya Downing DO Electronically Signed Date/Time: 12/03/2024 3:51 AM EDT LABS: Labs Reviewed BASIC METABOLIC PANEL - Abnormal Result Value SODIUM 141 POTASSIUM 3.9 CHLORIDE 109 (*) CARBON DIOXIDE 23 UREA NITROGEN 16 CREATININE 0.88 GLUCOSE 112 (*) CALCIUM 8.7 ANION GAP 9 eGFR >90.0 CBC WITH AUTO DIFFERENTIAL - Normal Auto WBC 5.4 RBC 4.74 Hemoglobin 13.7 Hematocrit 39.9 MCV 84.2 MCH 28.9 MCHC 34.3 RDW 12.0 Platelets 179 MPV 10.1 nRBC 0.0 Neutrophils Relative 60.5 Lymphocytes Relative 29.3 Monocytes Relative 7.3 Eosinophils Relative 2.1 Basophils Relative 0.6 Immature Grans % 0.2 Neutrophils Absolute 3.2 Lymphocytes Absolute 1.6 Monocytes Absolute 0.4 Eosinophils Absolute 0.1 Basophils Absolute 0.0 Immature Grans Absolute 0.0 HIGH SENSITIVITY TROPONIN, SERIAL BASELINE - Normal Troponin HS Serial Baseline <3 NT PRO BNP - Normal NT PRO BNP <16 Narrative: In patients with suspected acute HF, NT-proBNP age-related cut-points are 450, 900, and 1800 pg/mL for ages <50, 50-75, and >75 years respectively. NT-proBNP concentration <300 pg/mL provides a very high NPV for HF in an acute setting, independent of age. In a non-acute setting, heart failure is unlikely with a NT-proBNP concentration <125 pg/mL while a value >600 pg/mL is likely due to heart failure. Patients with levels in the waite zone (between rule-out and rule-in levels) need extra physician attention and ancillary testing. For the unusual patient aged <50 years with severe CKD, a cut point of 1,200 ng/L for NT-proBNP would be indicated. Testing is performed on a new assay on a new instrument and values may not correlate well with previous values. HIGH SENSITIVITY TROPONIN, SERIAL, SECOND TEST All other labs were within normal range or not returned as of this dictation. EMERGENCY DEPARTMENT COURSE and DIFFERENTIAL DIAGNOSIS/MDM: Vitals: Vitals: 12/03/24 0304 12/03/24 0308 12/03/24 0336 12/03/24337 BP: 130/77 (!) 133/86 (!) 134/87 Pulse: 93 98 95 Resp: 13 Temp: TempSrc: SpO2: 100% 100% 99% Weight: Height: 29-year-old female presents with chief complaint of chest pain but has been been evaluated extensively by multiple volumetric weigher with other tests that include EEG CT scans and multiple rounds of blood work and EKGs. 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 She follows with Dr. Corcoran with electrophysiology at [facility]. I reviewed his note specifically from 11/11/2024 in addition to other notes. The patient has at least 6 negative troponins I can see in the system in the last 2 months. My discussed the patient the benefit of more invasive testing which to this date has been negative as opposed to focusing on her symptoms. She agreed that further testing would be of little benefit. She has a follow-up appointment with Dr. Corcoran today that she would like to make. Patient's vital signs are grossly normal here. She is to be observed on telemetry while being given a liter of normal saline and reassessed. ED Course as of 12/03/24 0406 SunDec 03, [id number] During her stay in the ED the patient became more symptomatic with slightly worsened heart rate into the low 100s and a sensation like she is going to pass out. this was accompanied by tremulousness of her upper extremities. She stated that something is wrong. It was decided that it is unlikely for her to make her outpatient cardiology appointment with Dr. Corcoran. She notes that this syndrome has interrupted her life and she does not feel comfortable being discharged. I feel that the best solution is to be able to transfer the patient so that she may be evaluated by a volumetric weigher at [facility] today. Patient agrees with this. Lab work to be drawn here to help facilitate further decision making. Plan to contact inpatient cardiology service for recommendations on admission versus having them evaluate her based on ED to ED transfer to [facility]. [KV] 0406 Accepted 4 hours telemetry at the CDU. To be transferred by ACLS hudson. [KV] ED Course User Index [KV] Jeffry Rios, DO Diagnoses as of 12/03/24 0406 Dysautonomia orthostatic hypotension syndrome ED Medications managed: Medications sodium chloride 0.9 % bolus 1,000 mL (0 mL IntraVENous Stopped 12/03/24 0359) [1] Past Medical History: Diagnosis Date Anxiety Asthma ([facility]) 09/2016 Breast cyst, left 06/03/2021 Chronic sinusitis 12/2016 [facility] Dysautonomia ([facility]) 12/03/2024 GERD (gastroesophageal reflux disease) 07/2016 EGD per [facility] Hypothyroid 2009 IBS (irritable bowel syndrome) 02/2016 constipation - Colonoscopy per [facility] Migraines Neck pain Palpitations [2] Past Surgical History: Procedure Laterality Date BREAST LUMPECTOMY 08/2024 COLONOSCOPY 02/2016 [facility] TONSILLECTOMY (HISTORICAL) 1999 UPPER GASTROINTESTINAL ENDOSCOPY 11/2016 [facility] [3] Family History Problem Relation Name Age of Onset Ovarian cancer Neg Hx Diabetes Mother 35.00 on insulin at > 50 Lung cancer Maternal Grandfather Diabetes Maternal Cousin Gayle Colon cancer Maternal Grandmother 80.00 No Known Problems Paternal Grandmother Thyroid cancer Maternal Cousin Gayle Pancreatic cancer Mother Breast cancer Neg Hx No Known Problems Paternal Grandfather Other ([id number]) Father Danya 54.00 MVA in 2011 No Known Problems Sister Prostate cancer Maternal Grandfather [4] Social History Socioeconomic History Marital status: Tobacco Use Smoking status: Never Smokeless tobacco: Former Quit date: 04/05/2016 Vaping Use Vaping status: Never Used Substance and Sexual Activity Alcohol use: Not Currently Drug use: No Comment: caffiene: none Sexual activity: Yes Social History Narrative to Emile (Cat) since 07/21. NS or drinker, no children. 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 Social Drivers of Health Financial Resource Strain: Low Risk (04/20/2021) Received from [facility] Overall Financial Resource Strain (CARDIA) Difficulty of Paying Living Expenses: Not hard at all Food Insecurity: No Food Insecurity (10/10/2024) Received from [facility] Hunger Vital Sign Worried About Running Out of Food in the Last Year: Never true Ran Out of Food in the Last Year: Never true Transportation Needs: No Transportation Needs (10/28/2024) PRAPARE - Transportation Lack of Transportation (Medical): No Lack of Transportation (Non-Medical): No Physical Activity: Sufficiently Active (04/20/2021) Received from [facility] Exercise Vital Sign Days of Exercise per Week: 5 days Minutes of Exercise per Session: 30 min Stress: No Stress Concern Present (04/20/2021) Received from [facility] [place] [employer] - Occupational Stress Questionnaire Feeling of Stress : Not at all Social Connections: Moderately Integrated (04/20/2021) Received from [facility] Social Connection and Isolation Panel [NHANES] Frequency of Communication with Friends and Family: More than three times a week Frequency of Social Gatherings with Friends and Family: Twice a week Attends Mosque Services: More than 4 times per year Active Member of Clubs or Organizations: No Attends Club or Organization Meetings: Never Marital Status: Housing Stability: Low Risk (10/28/2024) Housing Stability Vital Sign Unable to Pay for Housing in the Last Year: No Number of Times Moved in the Last Year: 0 Homeless in the Last Year: No Jeffry Rios DO 12/03/24 0406 documented in this encounter [facility] 12-03-2024 Emergency department Note Labs obtained. Pt sitting upright on cot, repeatedly moving legs on bed. Pt again stating she feels like she is going to pass out. Pt is very anxious appearing. VS still stable. Pts spouse and 2 young children to bedside. [facility] 12-03-2024 Emergency department Note Call to [facility] call center for gyroscopic instrument mechanic/ transfer. [facility] 12-03-2024 Emergency department Note Pt pressed call button again, and again stating something does not feel right, she feels like she is going to pass out. VSS, IV fluids infusing without difficulty. Dr. Rios was already aware of pts c/o, and is now going to bedside to assess. [facility] 12-03-2024 Emergency department Note Patient with call light on stating she feels like she is going to pass out. Pt began mouth breathing and looking at cardiac cath lab manager. HR increased approximately 20 beats per minute then decreased to baseline upon entering room. Pt offered reassurance and Dr. Rios notified. No immediate orders received. [facility] 12-03-2024 Emergency department Triage note Pt ambulatory to ED2 with c/o chest pain. Pain is mainly left chest but radiates across whole chest into both shoulders. Pt states she woke at 0115 with heart racing, shortness of breath, and chest pain to neck and shoulders. Pain rated 5/10 at present. +hx GERD and palpitations as well as anxiety. Pt in gown, EKG performed, pt on monitor. Pr resting on cot with call light in reach, no s/s of distress. [facility] 12-03-2024 Physician Emergency department Note EMERGENCY DEPARTMENT ENCOUNTER Pt Name: Dulce Maria Carty Birthdate 1995 Date of evaluation: 12/03/2024 ED Provider: Jeffry Rios DO CHIEF COMPLAINT Chief Complaint Patient presents with Chest Pain HISTORY OF PRESENT ILLNESS (Location/Symptom, Timing/Onset, Context/Setting, Quality, Duration, Modifying Factors, Severity) Note limiting factors. I wore appropriate PPE for the entirety of this encounter. HPI Dulce Maria Carty is a 29 y.o. female who presents to the emergency department With the chief complaint of chest pain. However, patient notes a longstanding history of episodes that include racing heart rate chest pain when her heart is going very fast, lightheadedness, tingling in her extremities, and muscle cramping. She follows with Dr. Love for this problem, who she is supposed to see today, and had a recent tilt table test. She currently denies chest pain as a experiencing characteristic tingling in her hands and left foot. She notes this is not different compared to prior episodes but is frustrated with the frequency of her symptoms recently. When asked directly what has helped with her symptoms in the past she notes IV fluids sometimes helpful but she gets little relief from antinausea medications and would like to avoid things like muscle relaxers as she is breast-feeding currently. Nursing Notes were reviewed. REVIEW OF SYSTEMS Review of Systems PAST MEDICAL HISTORY Medical History[1] SURGICAL HISTORY Surgical History[2] CURRENT MEDICATIONS Previous Medications BUSPIRONE (BUSPAR) 7.5 MG TABLET Take 7.5 mg by mouth 3 times daily. PANTOPRAZOLE (PROTONIX) 20 MG EC TABLET Take 20 mg by mouth every morning (before breakfast). MV-MIN-FE FUM-FA-DHA ( 1 PO) Take by mouth. PROBIOTIC PRODUCT (PROBIOTIC DAILY PO) Take by mouth. ALLERGIES Nitrofurantoin, Alprazolam, and Quetiapine FAMILY HISTORY Family History[3] SOCIAL HISTORY Social History[4] SCREENINGS PHYSICAL EXAM ED Triage Vitals [12/03/24 0212] Temp Heart Rate Resp BP 36.6 C (97.9 F) 88 16 (!) 132/81 SpO2 Temp Source Heart Rate Source Patient Position 100 % Oral Monitor -- BP Location FiO2 (%) -- -- Physical Exam Constitutional: General: She is not in acute distress. Appearance: She is not ill-appearing or diaphoretic. HENT: Head: Normocephalic and atraumatic. Nose: Nose normal. No rhinorrhea. Mouth/Throat: Mouth: Mucous membranes are moist. Pharynx: Oropharynx is clear. No posterior oropharyngeal erythema. Eyes: General: No scleral icterus. Extraocular Movements: Extraocular movements intact. Conjunctiva/sclera: Conjunctivae normal. Pupils: Pupils are equal, round, and reactive to light. Cardiovascular: Comments: Initial tachycardia with sinus rhythm on the monitor which slows during evaluation. 2+ bilateral radial pulses. Warm distal extremities throughout. Pulmonary: Effort: Pulmonary effort is normal. No respiratory distress. Breath sounds: No stridor. Abdominal: General: There is no distension. Palpations: Abdomen is soft. Tenderness: There is no abdominal tenderness. There is no guarding. Musculoskeletal: Right lower leg: No edema. Left lower leg: No edema. Skin: General: Skin is warm and dry. Coloration: Skin is not jaundiced or pale. Neurological: Mental Status: She is alert. Comments: Intact sensation to face trunk and all 4 extremities. Grossly intact strength to upper and lower extremities bilaterally Psychiatric: Mood and Affect: Mood normal. Behavior: Behavior normal. DIAGNOSTIC RESULTS RADIOLOGY (Per Emergency Physician): Interpretation per the Radiologist below, if available at the time of this note: XR chest 1 view Final Result Normal chest x-ray. Report Dictated on Electronically Signed By: Danya Downing DO Electronically Signed Date/Time: 12/03/2024 3:51 AM EDT LABS: Labs Reviewed BASIC METABOLIC PANEL - Abnormal Result Value SODIUM 141 POTASSIUM 3.9 CHLORIDE 109 (*) CARBON DIOXIDE 23 UREA NITROGEN 16 CREATININE 0.88 GLUCOSE 112 (*) CALCIUM 8.7 ANION GAP 9 eGFR >90.0 CBC WITH AUTO DIFFERENTIAL - Normal Auto WBC 5.4 RBC 4.74 Hemoglobin 13.7 Hematocrit 39.9 MCV 84.2 MCH 28.9 MCHC 34.3 RDW 12.0 Platelets 179 MPV 10.1 nRBC 0.0 Neutrophils Relative 60.5 Lymphocytes Relative 29.3 Monocytes Relative 7.3 Eosinophils Relative 2.1 Basophils Relative 0.6 Immature Grans % 0.2 Neutrophils Absolute 3.2 Lymphocytes Absolute 1.6 Monocytes Absolute 0.4 Eosinophils Absolute 0.1 Basophils Absolute 0.0 Immature Grans Absolute 0.0 HIGH SENSITIVITY TROPONIN, SERIAL BASELINE - Normal Troponin HS Serial Baseline <3 NT PRO BNP - Normal NT PRO BNP <16 Narrative: In patients with suspected acute HF, NT-proBNP age-related cut-points are 450, 900, and 1800 pg/mL for ages <50, 50-75, and >75 years respectively. NT-proBNP concentration <300 pg/mL provides a very high NPV for HF in an acute setting, independent of age. In a non-acute setting, heart failure is unlikely with a NT-proBNP concentration <125 pg/mL while a value >600 pg/mL is likely due to heart failure. Patients with levels in the waite zone (between rule-out and rule-in levels) need extra physician attention and ancillary testing. For the unusual patient aged <50 years with severe CKD, a cut point of 1,200 ng/L for NT-proBNP would be indicated. Testing is performed on a new assay on a new instrument and values may not correlate well with previous values. HIGH SENSITIVITY TROPONIN, SERIAL, SECOND TEST All other labs were within normal range or not returned as of this dictation. EMERGENCY DEPARTMENT COURSE and DIFFERENTIAL DIAGNOSIS/MDM: Vitals: Vitals: 12/03/24 0304 12/03/24 0308 12/03/24 0336 12/03/24 0338 BP: 130/77 (!) 133/86 (!) 134/87 Pulse: 93 98 95 Resp: 17 13 Temp: TempSrc: SpO2: 100% 100% 99% Weight: Height: 29-year-old female presents with chief complaint of chest pain but has been been evaluated extensively by multiple volumetric weigher with other tests that include EEG CT scans and multiple rounds of blood work and EKGs. 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 She follows with Dr. Corcoran with electrophysiology at [facility]. I reviewed his note specifically from 11/11/2024 in addition to other notes. The patient has at least 6 negative troponins I can see in the system in the last 2 months. My discussed the patient the benefit of more invasive testing which to this date has been negative as opposed to focusing on her symptoms. She agreed that further testing would be of little benefit. She has a follow-up appointment with Dr. Corcoran today that she would like to make. Patient's vital signs are grossly normal here. She is to be observed on telemetry while being given a liter of normal saline and reassessed. ED Course as of 12/03/24405Dec 03, [id number] During her stay in the ED the patient became more symptomatic with slightly worsened heart rate into the low 100s and a sensation like she is going to pass out. this was accompanied by tremulousness of her upper extremities. She stated that something is wrong. It was decided that it is unlikely for her to make her outpatient cardiology appointment with Dr. Corcoran. She notes that this syndrome has interrupted her life and she does not feel comfortable being discharged. I feel that the best solution is to be able to transfer the patient so that she may be evaluated by a volumetric weigher at [facility] today. Patient agrees with this. Lab work to be drawn here to help facilitate further decision making. Plan to contact inpatient cardiology service for recommendations on admission versus having them evaluate her based on ED to ED transfer to [facility]. [KV] 0406 Accepted 4 hours telemetry at the CDU. To be transferred by [facility]. [KV] ED Course User Index [KV] Jeffry Rios, DO Diagnoses as of 12/03/24405 Dysautonomia orthostatic hypotension syndrome ED Medications managed: Medications sodium chloride 0.9 % bolus 1,000 mL (0 mL IntraVENous Stopped 12/03/24 035) [1] Past Medical History: Diagnosis Date Anxiety Asthma (HHS/HCC) 09/2016 Breast cyst, left 06/03/2021 Chronic sinusitis 12/2016 E[facility] eval [facility] Dysautonomia ([facility]) 12/03/2024 GERD (gastroesophageal reflux disease) 07/2016 EGD per [facility] Hypothyroid 2008 IBS (irritable bowel syndrome) 02/2016 constipation - Colonoscopy per [facility] Migraines Neck pain Palpitations [2] Past Surgical History: Procedure Laterality Date BREAST LUMPECTOMY 08/2024 COLONOSCOPY 02/2016 [facility] TONSILLECTOMY (HISTORICAL) 1999 UPPER GASTROINTESTINAL ENDOSCOPY 11/2016 [facility] [3] Family History Problem Relation Name Age of Onset Ovarian cancer Neg Hx Diabetes Mother 35.00 on insulin at > 50 Lung cancer Maternal Grandfather Diabetes Maternal Cousin Gayle Colon cancer Maternal Grandmother 80.00 No Known Problems Paternal Grandmother Thyroid cancer Maternal Cousin Gayle Pancreatic cancer Mother Breast cancer Neg Hx No Known Problems Paternal Grandfather Other ([id number]) Father Danya 54.00 MVA in 2011 No Known Problems Sister Prostate cancer Maternal Grandfather [4] Social History Socioeconomic History Marital status: Tobacco Use Smoking status: Never Smokeless tobacco: Former Quit date: 04/05/2016 Vaping Use Vaping status: Never Used Substance and Sexual Activity Alcohol use: Not Currently Drug use: No Comment: caffiene: none Sexual activity: Yes Social History Narrative to Emile (Cat) since 07/21. NS or drinker, no children. 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 Social Drivers of Health Financial Resource Strain: Low Risk (04/20/2021) Received from [facility] Overall Financial Resource Strain (CARDIA) Difficulty of Paying Living Expenses: Not hard at all Food Insecurity: No Food Insecurity (10/10/2024) Received from [facility] Hunger Vital Sign Worried About Running Out of Food in the Last Year: Never true Ran Out of Food in the Last Year: Never true Transportation Needs: No Transportation Needs (10/28/2024) PRAPARE - Transportation Lack of Transportation (Medical): No Lack of Transportation (Non-Medical): No Physical Activity: Sufficiently Active (04/20/2021) Received from [facility] Exercise Vital Sign Days of Exercise per Week: 5 days Minutes of Exercise per Session: 30 min Stress: No Stress Concern Present (04/20/2021) Received from [facility] [place] [facility] [employer] [facility] - Occupational Stress Questionnaire Feeling of Stress : Not at all Social Connections: Moderately Integrated (04/20/2021) Received from [facility] Social Connection and Isolation Panel [NHANES] Frequency of Communication with Friends and Family: More than three times a week Frequency of Social Gatherings with Friends and Family: Twice a week Attends Mosque Services: More than 4 times per year Active Member of Clubs or Organizations: No Attends Club or Organization Meetings: Never Marital Status: Housing Stability: Low Risk (10/28/2024) Housing Stability Vital Sign Unable to Pay for Housing in the Last Year: No Number of Times Moved in the Last Year: 0 Homeless in the Last Year: No Jeffry Rios DO 12/03/24 0406 [facility] 11-25-2024 Nurse Note Left voice message reviewing instructions for 's scheduled tilt table test. [facility] 11-25-2024 Nurse Note Left voice message reviewing instructions for 's scheduled tilt table test. documented in this encounter [facility] 11-23-2024 Emergency department Note EMERGENCY DEPARTMENT ENCOUNTER Pt Name: Dulce Maria Carty Birthdate 1995 Date of evaluation: 11/23/2024 CHIEF COMPLAINT Chief Complaint Patient presents with Abdominal Pain Pt states when she woke up she was having abd pain below her ribs Rapid Heart Rate Pt states she has been seen for this by PCP and told to come in if her HR is consistently elevated. Hr 109 during triage HISTORY OF PRESENT ILLNESS HPI Dulce Maria Carty is a 29 y.o. female who presents to the emergency department With upper abdominal pain around the ribs and epigastric region symptoms have been going on since beginning of October pain. Last 2 weeks pain is daily today it is constant. At times it does get severe. Has some nausea. No vomiting 2 passes of diarrhea in the last 24 hours. No difficulty urinating no fever. No alcohol use recently. No anti-inflammatory use recently. She has tried Mylanta and prescription written by her doctor. She is scheduled for a tilt table test 4 days from now. She is undergoing assessment for POTS. REVIEW OF SYSTEMS Review of Systems Past Medical History: No date: Anxiety 09/2016: Asthma (HHS/HCC) 06/03/2021: Breast cyst, left 12/2016: Chronic sinusitis Comment: ENT eval per [facility] 07/2016: GERD (gastroesophageal reflux disease) Comment: 11/21 EGD per [facility] 2008: Hypothyroid 02/2016: IBS (irritable bowel syndrome) Comment: constipation - Colonoscopy per [facility] No date: Migraines No date: Neck pain No date: Palpitations Past Surgical History: 08/2024: BREAST LUMPECTOMY 02/2016: COLONOSCOPY Comment: [facility] 1999: TONSILLECTOMY (HISTORICAL) 11/2016: UPPER GASTROINTESTINAL ENDOSCOPY Comment: [facility] CURRENT MEDICATIONS Discharge Medication List as of 11/23/2024 10:03 AM CONTINUE these medications which have NOT CHANGED Details pantoprazole (ProtoNix) 20 MG EC tablet Take 20 mg by mouth every morning (before breakfast)., Historical Med MV-Min-Fe Fum-FA-DHA ( 1 PO) Take by mouth., Historical Med Probiotic Product (PROBIOTIC DAILY PO) Take by mouth., Historical Med ALLERGIES Nitrofurantoin, Alprazolam, and Quetiapine SOCIAL HISTORY Social History Socioeconomic History Marital status: Spouse name: Not on file Number of children: Not on file Years of education: Not on file Highest education level: Not on file Occupational History Not on file Tobacco Use Smoking status: Never Smokeless tobacco: Former Quit date: 04/05/2016 Vaping Use Vaping status: Never Used Substance and Sexual Activity Alcohol use: Not Currently Drug use: No Comment: caffiene: none Sexual activity: Yes Other Topics Concern Not on file Social History Narrative to Emile Nielson) since 07/21. NS or drinker, no children. 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 Social Drivers of Health Financial Resource Strain: Low Risk (04/20/2021) Received from [facility] Overall Financial Resource Strain (CARDIA) Difficulty of Paying Living Expenses: Not hard at all Food Insecurity: No Food Insecurity (10/10/2024) Received from [facility] Hunger Vital Sign Worried About Running Out of Food in the Last Year: Never true Ran Out of Food in the Last Year: Never true Transportation Needs: No Transportation Needs (10/28/2024) PRAPARE - Transportation Lack of Transportation (Medical): No Lack of Transportation (Non-Medical): No Physical Activity: Sufficiently Active (04/20/2021) Received from [facility] Exercise Vital Sign Days of Exercise per Week: 5 days Minutes of Exercise per Session: 30 min Stress: No Stress Concern Present (04/20/2021) Received from [facility] [place] [facility] [employer] [facility] - Occupational Stress Questionnaire Feeling of Stress : Not at all Social Connections: Moderately Integrated (04/20/2021) Received from [facility] Social Connection and Isolation Panel [NHANES] Frequency of Communication with Friends and Family: More than three times a week Frequency of Social Gatherings with Friends and Family: Twice a week Attends Mosque Services: More than 4 times per year Active Member of Clubs or Organizations: No Attends Club or Organization Meetings: Never Marital Status: Intimate Partner Violence: Not on file Housing Stability: Low Risk (10/28/2024) Housing Stability Vital Sign Unable to Pay for Housing in the Last Year: No Number of Times Moved in the Last Year: 0 Homeless in the Last Year: No PHYSICAL EXAM Vitals: 11/23/24 0845 11/23/24 0923 11/23/24 1037 11/23/24 1143 BP: (!) 124/86 109/75 111/75 (!) 111/84 BP Location: Right arm Right arm Right arm Right arm Patient Position: Lying Lying Lying Lying Pulse: 90 89 78 75 Resp: 19 17 17 17 Temp: TempSrc: SpO2: 100% 100% 100% 100% Weight: Height: Physical Exam Vitals and nursing note reviewed. Constitutional: Appearance: She is normal weight. Cardiovascular: Rate and Rhythm: Regular rhythm. Tachycardia present. Heart sounds: Normal heart sounds. Abdominal: General: Abdomen is flat. Bowel sounds are normal. Palpations: Abdomen is soft. Tenderness: There is abdominal tenderness (mild) in the epigastric area. There is no right CVA tenderness, left CVA tenderness, guarding or rebound. Negative signs include Giron's sign, Rovsing's sign, McBurney's sign, psoas sign and obturator sign. Hernia: No hernia is present. Skin: General: Skin is warm. Coloration: Skin is not jaundiced. Neurological: Mental Status: She is alert. Psychiatric: Behavior: Behavior normal. SCREENINGS Medical decision making DIAGNOSTIC RESULTS Procedures/EKG: Physician EKG interpretation can be found in [facility] if done Radiologist results reviewed: XR abdomen 2 views w chest 1 view Final Result Linear metallic density overlying the left mid abdomen at the level of L2 on L3. No correlate is seen on the prior CT from 2022. Clinical correlation is suggested. Report Dictated on Electronically Signed By: Hung Hou MD Electronically Signed Date/Time: 11/23/2024 9:29 AM EDT LABS: Labs Reviewed BASIC METABOLIC PANEL - Abnormal Result Value SODIUM 140 POTASSIUM 4.1 CHLORIDE 109 (*) CARBON DIOXIDE 23 UREA NITROGEN 10 CREATININE 0.91 GLUCOSE 100 CALCIUM 9.3 ANION GAP 8 eGFR 87.2 COMPLETE URINALYSIS WITH REFLEX TO CULTURE - Normal Color, Urine Colorless Clarity, Urine Clear pH, Urine 7.5 Leukocytes, Urine Negative Nitrite, Urine Negative Protein, Urine Negative Glucose, Urine Normal Bilirubin, Urine Negative Ketones, Urine Negative Urobilinogen, Urine Normal Blood, Urine Negative SPECIFIC GRAVITY OF URINE (NUMERIC) 1.008 Narrative: A specimen with <=10 WBC is not consistent with inflammation. This specimen will not reflex to a urine culture. D-DIMER,QUANTITATIVE - Normal D-DIMER, INNOVANCE <0.19 Narrative: [employer] D-Dimer values of <0.50 mg/L FEU can be used in combination with a pre-test probability model (e.g. Well's) to exclude pulmonary embolism (PE) disease, as well as an aid in the diagnosis of deep vein thrombosis (DVT). HEPATIC FUNCTION PANEL - Normal BILIRUBIN, TOTAL 0.6 BILIRUBIN, DIRECT 0.2 ALKALINE PHOSPHATASE 55 AST (SGOT) 15 ALT 9 ALBUMIN 4.1 TOTAL PROTEIN 6.7 LIPASE - Normal LIPASE 14 THYROID STIMULATING HORMONE - Normal THYROID STIMULATING HORMONE 0.47 C-REACTIVE PROTEIN - Normal C REACTIVE PROTEIN <0.4 PORPHYRINS, FRACTIONATED, QUANTITATIVE, RANDOM URINE ([facility]) RADIOLOGY : Medications ordered: Medications lactated ringers bolus 2,000 mL (0 mL IntraVENous Stopped 11/23/24 1119) acetaminophen (Tylenol) tablet 650 mg (650 mg Oral Given 11/23/24 0911) ED Course as of 11/23/24 1244 Sun Nov 23, 2024 0820 EGD DIAGNOSTIC (11/18/24 1244) Prior medical records were reviewed: - Normal esophagus. - Normal stomach. Biopsied. - Normal duodenal bulb, second portion of the duodenum and third portion of the duodenum. Biopsies taken clip placed for bleeding [NM] 0821 CT abdomen pelvis w contrast (10/09/24 1315) Prior medical records were reviewed: no intraabdominal pathology [NM] 0822 Serial Troponin, High Sensitivity (11/14/24 0402) Prior medical records were reviewed: normal [NM] ED Course User Index [NM] Martinez Danielle MD Diagnoses as of 11/23/24 1244 Epigastric pain * No order type specified * Our workup consisted of ordering/reviewing: Orders Placed This Encounter Procedures XR abdomen 2 views w chest 1 view Urinalysis complete with reflex to Culture D-dimer, quantitative Basic metabolic panel Hepatic function panel Lipase TSH Porphyrins, urine, fractionated C-reactive protein Vital Signs Pulse Oximetry Insert peripheral IV MDM: 29 y.o. presented with upper abdominal pain, tachycardia. The differential diagnosis considered: Bowel obstruction, bowel perforation, postprocedural pain since she endoscopy 5 days ago, infection, thoracic pathology, hepatitis, pancreatitis, electrolyte derangement, porphyria, POTS. Radiology: X-ray was independently interpreted by myself: Obstruction series: did not reveal any dilated loops of small bowel or air fluid levels to suggest small bowel obstruction. Metal FB likely clip from EGD. Patient knows about it. Diagnostic tests considered but not performed: EKG. Multiple done in the past without acute coronary syndrome. Consideration for escalation of care with: diagnostics CT abdomen and pelvis, however, she has had CT done last month and is not performed today. Prescription medications considered but not prescribed: oxycodone po. Will trial alternative to opiates. . CRITICAL CARE TIME PROCEDURES: Procedures FINAL IMPRESSION 1. Epigastric pain DISPOSITION/PLAN DISPOSITION Discharge 11/23/2024 09:54:09 AM PATIENT REFERRED TO: DO [address] [facility] [id number] Call in 1 day Tariq Singleton APRN - BUILD AND DEPLOYMENT ENGINEER [address] [facility] [id number] Call in 1 day I prescribed: Discharge Medication List as of 11/23/2024 10:03 AM (Comment: this report has been produced using speech recognition software and may contain errors related to that system including errors in grammar, punctuation, and spelling, as well as words and phrases) Martinez Danielle MD (electronically signed) Martinez Danielle MD 11/23/24 1244 documented in this encounter [facility] 11-23-2024 Physician Emergency department Note EMERGENCY DEPARTMENT ENCOUNTER Pt Name: Dulce Maria Carty Birthdate 1995 Date of evaluation: 11/23/2024 CHIEF COMPLAINT Chief Complaint Patient presents with Abdominal Pain Pt states when she woke up she was having abd pain below her ribs Rapid Heart Rate Pt states she has been seen for this by PCP and told to come in if her HR is consistently elevated. Hr 109 during triage HISTORY OF PRESENT ILLNESS HPI Dulce Maria Carty is a 29 y.o. female who presents to the emergency department With upper abdominal pain around the ribs and epigastric region symptoms have been going on since beginning of October pain. Last 2 weeks pain is daily today it is constant. At times it does get severe. Has some nausea. No vomiting 2 passes of diarrhea in the last 24 hours. No difficulty urinating no fever. No alcohol use recently. No anti-inflammatory use recently. She has tried Mylanta and prescription written by her doctor. She is scheduled for a tilt table test 4 days from now. She is undergoing assessment for POTS. REVIEW OF SYSTEMS Review of Systems Past Medical History: No date: Anxiety 09/2016: Asthma (HHS/HCC) 06/03/2021: Breast cyst, left 12/2016: Chronic sinusitis Comment: E[facility] eval [facility] 07/2016: GERD (gastroesophageal reflux disease) Comment: 11/21 EGD per [facility] 2008: Hypothyroid 02/2016: IBS (irritable bowel syndrome) Comment: constipation - Colonoscopy per [facility] No date: Migraines No date: Neck pain No date: Palpitations Past Surgical History: 08/2024: BREAST LUMPECTOMY 02/2016: COLONOSCOPY Comment: [facility] 1999: TONSILLECTOMY (HISTORICAL) 11/2016: UPPER GASTROINTESTINAL ENDOSCOPY Comment: [facility] CURRENT MEDICATIONS Discharge Medication List as of 11/23/2024 10:03 AM CONTINUE these medications which have NOT CHANGED Details pantoprazole (ProtoNix) 20 MG EC tablet Take 20 mg by mouth every morning (before breakfast)., Historical Med MV-Min-Fe Fum-FA-DHA ( 1 PO) Take by mouth., Historical Med Probiotic Product (PROBIOTIC DAILY PO) Take by mouth., Historical Med ALLERGIES Nitrofurantoin, Alprazolam, and Quetiapine SOCIAL HISTORY Social History Socioeconomic History Marital status: Spouse name: Not on file Number of children: Not on file Years of education: Not on file Highest education level: Not on file Occupational History Not on file Tobacco Use Smoking status: Never Smokeless tobacco: Former Quit date: 04/05/2016 Vaping Use Vaping status: Never Used Substance and Sexual Activity Alcohol use: Not Currently Drug use: No Comment: caffiene: none Sexual activity: Yes Other Topics Concern Not on file Social History Narrative to Emile Nielson) since 07/21. NS or drinker, no children. 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 Social Drivers of Health Financial Resource Strain: Low Risk (04/20/2021) Received from [facility] Overall Financial Resource Strain (CARDIA) Difficulty of Paying Living Expenses: Not hard at all Food Insecurity: No Food Insecurity (10/10/2024) Received from [facility] Hunger Vital Sign Worried About Running Out of Food in the Last Year: Never true Ran Out of Food in the Last Year: Never true Transportation Needs: No Transportation Needs (10/28/2024) PRAPARE - Transportation Lack of Transportation (Medical): No Lack of Transportation (Non-Medical): No Physical Activity: Sufficiently Active (04/20/2021) Received from [facility] Exercise Vital Sign Days of Exercise per Week: 5 days Minutes of Exercise per Session: 30 min Stress: No Stress Concern Present (04/20/2021) Received from [facility] [place] [employer] - Occupational Stress Questionnaire Feeling of Stress : Not at all Social Connections: Moderately Integrated (04/20/2021) Received from [facility] Social Connection and Isolation Panel [NHANES] Frequency of Communication with Friends and Family: More than three times a week Frequency of Social Gatherings with Friends and Family: Twice a week Attends Mosque Services: More than 4 times per year Active Member of Clubs or Organizations: No Attends Club or Organization Meetings: Never Marital Status: Intimate Partner Violence: Not on file Housing Stability: Low Risk (10/28/2024) Housing Stability Vital Sign Unable to Pay for Housing in the Last Year: No Number of Times Moved in the Last Year: 0 Homeless in the Last Year: No PHYSICAL EXAM Vitals: 11/23/24 0845 11/23/24 0923 11/23/24 1037 11/23/24 1143 BP: (!) 124/86 109/75 111/75 (!) 111/84 BP Location: Right arm Right arm Right arm Right arm Patient Position: Lying Lying Lying Lying Pulse: 90 89 78 75 Resp: Temp: TempSrc: SpO2: 100% 100% 100% 100% Weight: Height: Physical Exam Vitals and nursing note reviewed. Constitutional: Appearance: She is normal weight. Cardiovascular: Rate and Rhythm: Regular rhythm. Tachycardia present. Heart sounds: Normal heart sounds. Abdominal: General: Abdomen is flat. Bowel sounds are normal. Palpations: Abdomen is soft. Tenderness: There is abdominal tenderness (mild) in the epigastric area. There is no right CVA tenderness, left CVA tenderness, guarding or rebound. Negative signs include Girno's sign, Rovsing's sign, McBurney's sign, psoas sign and obturator sign. Hernia: No hernia is present. Skin: General: Skin is warm. Coloration: Skin is not jaundiced. Neurological: Mental Status: She is alert. Psychiatric: Behavior: Behavior normal. SCREENINGS Medical decision making DIAGNOSTIC RESULTS Procedures/EKG: Physician EKG interpretation can be found in [facility] if done Radiologist results reviewed: XR abdomen 2 views w chest 1 view Final Result Linear metallic density overlying the left mid abdomen at the level of L2 on L3. No correlate is seen on the prior CT from 2022. Clinical correlation is suggested. Report Dictated on Electronically Signed By: Hung Hou MD Electronically Signed Date/Time: 11/23/2024 9:29 AM EDT LABS: Labs Reviewed BASIC METABOLIC PANEL - Abnormal Result Value SODIUM 140 POTASSIUM 4.1 CHLORIDE 109 (*) CARBON DIOXIDE 23 UREA NITROGEN 10 CREATININE 0.91 GLUCOSE 100 CALCIUM 9.3 ANION GAP 8 eGFR 87.2 COMPLETE URINALYSIS WITH REFLEX TO CULTURE - Normal Color, Urine Colorless Clarity, Urine Clear pH, Urine 7.5 Leukocytes, Urine Negative Nitrite, Urine Negative Protein, Urine Negative Glucose, Urine Normal Bilirubin, Urine Negative Ketones, Urine Negative Urobilinogen, Urine Normal Blood, Urine Negative SPECIFIC GRAVITY OF URINE (NUMERIC) 1.008 Narrative: A specimen with <=10 WBC is not consistent with inflammation. This specimen will not reflex to a urine culture. D-DIMER,QUANTITATIVE - Normal D-DIMER, INNOVANCE <0.19 Narrative: [facility] D-Dimer values of <0.50 mg/L FEU can be used in combination with a pre-test probability model (e.g. Well's) to exclude pulmonary embolism (PE) disease, as well as an aid in the diagnosis of deep vein thrombosis (DVT). HEPATIC FUNCTION PANEL - Normal BILIRUBIN, TOTAL 0.6 BILIRUBIN, DIRECT 0.2 ALKALINE PHOSPHATASE 55 AST (SGOT) 15 ALT 9 ALBUMIN 4.1 TOTAL PROTEIN 6.7 LIPASE - Normal LIPASE 14 THYROID STIMULATING HORMONE - Normal THYROID STIMULATING HORMONE 0.47 C-REACTIVE PROTEIN - Normal C REACTIVE PROTEIN <0.4 PORPHYRINS, FRACTIONATED, QUANTITATIVE, RANDOM URINE (BKR [facility]ST) RADIOLOGY : Medications ordered: Medications lactated ringers bolus 2,000 mL (0 mL IntraVENous Stopped 11/23/24 1119) acetaminophen (Tylenol) tablet 650 mg (650 mg Oral Given 11/23/24 0911) ED Course as of 11/23/24 1244 Sun Nov 23, 2024 0820 EGD DIAGNOSTIC (11/18/24 1244) Prior medical records were reviewed: - Normal esophagus. - Normal stomach. Biopsied. - Normal duodenal bulb, second portion of the duodenum and third portion of the duodenum. Biopsies taken clip placed for bleeding [NM] 0821 CT abdomen pelvis w contrast (10/09/24 1315) Prior medical records were reviewed: no intraabdominal pathology [NM] 0822 Serial Troponin, High Sensitivity (11/14/24 0402) Prior medical records were reviewed: normal [NM] ED Course User Index [NM] Martinez Danielle MD Diagnoses as of 11/23/24 1244 Epigastric pain * No order type specified * Our workup consisted of ordering/reviewing: Orders Placed This Encounter Procedures XR abdomen 2 views w chest 1 view Urinalysis complete with reflex to Culture D-dimer, quantitative Basic metabolic panel Hepatic function panel Lipase TSH Porphyrins, urine, fractionated C-reactive protein Vital Signs Pulse Oximetry Insert peripheral IV MDM: 29 y.o. presented with upper abdominal pain, tachycardia. The differential diagnosis considered: Bowel obstruction, bowel perforation, postprocedural pain since she endoscopy 5 days ago, infection, thoracic pathology, hepatitis, pancreatitis, electrolyte derangement, porphyria, POTS. Radiology: X-ray was independently interpreted by myself: Obstruction series: did not reveal any dilated loops of small bowel or air fluid levels to suggest small bowel obstruction. Metal FB likely clip from EGD. Patient knows about it. Diagnostic tests considered but not performed: EKG. Multiple done in the past without acute coronary syndrome. Consideration for escalation of care with: diagnostics CT abdomen and pelvis, however, she has had CT done last month and is not performed today. Prescription medications considered but not prescribed: oxycodone po. Will trial alternative to opiates. . CRITICAL CARE TIME PROCEDURES: Procedures FINAL IMPRESSION 1. Epigastric pain DISPOSITION/PLAN DISPOSITION Discharge 11/23/2024 09:54:09 AM PATIENT REFERRED TO: DO Natacha Hu [facility] [id number] Call in 1 day Tariq Singleton APRN - BUILD AND [employer]MENT ENGINEER [address] [facility] [id number] Call in 1 day I prescribed: Discharge Medication List as of 11/23/2024 10:03 AM (Comment: this report has been produced using speech recognition software and may contain errors related to that system including errors in grammar, punctuation, and spelling, as well as words and phrases) Martinez Danielle MD (electronically signed) Martinez Danielle MD 11/23/24 1244 [facility] 11-18-2024 Note HNO ID: [id number] Author: NUZHAT ALMARAZ LPN Service: ? Author Type: Licensed Nurse Type: Nursing Progress Note Filed: 11/18/2024 12:54 Note Text: Dr. Elizabet Oneill spoke with patient at bedside. [facility] 11-14-2024 Hospital Discharge instructions Nixon Freeman DO - 11/14/2024 4:15 AM EDT Follow-up with your volumetric weigher, can handler and primary care doctor. Continue the BuSpar. Speak to your can handler as there may be other medications that would be safe during to take such as Levsin. If you have any change to symptoms, worsening symptoms, fevers, chills, please do not hesitate to return to the emergency department. The following attachments cannot be sent through Care Everywhere.Palpitations ED (Gambian)documented in this encounter [facility] 11-14-2024 Emergency department Note Emergency Department Encounter [facility] ED Patient: Dulce Maria Carty : 1995 Date of Evaluation: 11/14/2024 ED Provider: Nixon Freeman DO Chief Complaint Chief Complaint Patient presents with Abdominal Pain [place] Dulce Maria Carty is a 29 y.o. female who presents to the emergency department complaining of palpitations and abdominal pain. Patient reports a significant recent history of palpitations and abdominal pain. This has been ongoing and she has seen several specialist including cardiology and gastroenterology. She has been on beta-blockers, recently started BuSpar. She is scheduled for an EGD next week. Tonight she woke up with more severe lower abdominal pain. She states this has been ongoing and this is becoming more uncomfortable and difficult to function. She takes Tylenol and [id number] medications with no improvement in symptoms. Avoids other medications due to her active breast-feeding. Additional history obtained from : n/a Barriers to obtaining history from patient: n/a ROS: Review of Systems completed as follows: (Bold = positive, Not bold = negative) GENERAL: fevers, chills, malaise NEURO: weakness, numbness of tingling, headache CARDIOVASCULAR: chest pain, syncope, palpitations PULMONARY: shortness of breath, cough, wheezing GASTROINTESTINAL: nausea, vomiting, abdominal pain, diarrhea, constipation, MUSCULOSKELETAL: pain SKIN: rash, lesions, wound Past History Medical History[1] Surgical History[2] Social History[3] I have reviewed the history above as provided by nursing notes. Medications/Allergies Discharge Medication List as of 11/14/2024 4:15 AM CONTINUE these medications which have NOT CHANGED Details pantoprazole (ProtoNix) 20 MG EC tablet Take 20 mg by mouth every morning (before breakfast)., Historical Med MV-Min-Fe Fum-FA-DHA ( 1 PO) Take by mouth., Historical Med Probiotic Product (PROBIOTIC DAILY PO) Take by mouth., Historical Med Allergies[4] I have reviewed the history above as provided by nursing notes. Physical Exam ED Triage Vitals Temp Heart Rate Resp BP 11/14/2429911/14/2429911/14/2429911/14/24 0300 36.7 C (98.1 F) (!) 104 14 (!) 151/97 SpO2 Temp Source Heart Rate Source Patient Position 11/14/2429911/14/240 11/14/24 0338 -- 100 % Oral Monitor BP Location FiO2 (%) -- -- GENERAL: The patient appears nourished and normally developed. Vital signs as documented. EYES: PERRL. No scleral icterus or orbital trauma noted. HEENT: Mucous membranes moist. Nares patent without copious rhinorrhea. LUNGS: Lungs are clear to auscultation, without any respiratory distress. CARDIAC: Fluctuating heart rate with occasional tachycardia. Rhythm is regular. No murmur appreciated ABDOMEN: Mild suprapubic tenderness to palpation, soft, with no obvious masses, and no peritoneal signs. EXTREMITIES: Non edematous, with no obvious deformities. SKIN: Good color, with no significant rashes. No pallor. NEURO: No obvious neurological deficits, normal sensation and strength bilaterally. Diagnostics Labs: Results for orders placed or performed during the hospital encounter of 11/14/24 CBC auto differential Collection Time: 11/14/24 3:35 AM Result Value Ref Range Auto WBC 4.7 3.6 - 10.7 10*3/uL RBC 5.01 3.80 - 5.20 10*6/uL Hemoglobin 14.3 11.7 - 16.0 g/dL Hematocrit 42.6 35.0 - 47.0 % MCV 85.0 77.0 - 99.0 fL MCH 28.5 26.0 - 34.0 pg MCHC 33.6 30.5 - 36.0 % RDW 12.1 11.5 - 15.0 % Platelets 179 140 - 440 10*3/uL MPV 9.9 9.0 - 12.7 fL nRBC 0.0 0.0 - 2.0 /100 WBCs Neutrophils Relative 58.4 38.0 - 82.0 % Lymphocytes Relative 32.8 15.0 - 45.0 % Monocytes Relative 5.9 5.0 - 13.0 % Eosinophils Relative 2.3 0.0 - 6.0 % Basophils Relative 0.4 0.0 - 2.0 % Immature Grans % 0.2 0.0 - 2.0 % Neutrophils Absolute 2.8 1.8 - 7.5 10*3/uL Lymphocytes Absolute 1.6 1.0 - 4.3 10*3/uL Monocytes Absolute 0.3 0.0 - 0.9 10*3/uL Eosinophils Absolute 0.1 0.0 - 0.5 10*3/uL Basophils Absolute 0.0 0.0 - 0.2 10*3/uL Immature Grans Absolute 0.0 <0.1 10*3/uL Comprehensive metabolic panel Collection Time: 11/14/24 3:35 AM Result Value Ref Range SODIUM 142 136 - 145 mmol/L POTASSIUM 3.7 3.5 - 5.1 mmol/L CHLORIDE 106 98 - 107 mmol/L CARBON DIOXIDE 25 22 - 29 mmol/L ANION GAP 11 3 - 13 mmol/L UREA NITROGEN 14 8 - 21 mg/dL CREATININE 0.86 0.57 - 1.11 mg/dL GLUCOSE 92 74 - 100 mg/dL CALCIUM 9.5 8.4 - 10.2 mg/dL AST (SGOT) 17 <34 U/L ALT 18 <30 U/L ALKALINE PHOSPHATASE 52 40 - 150 U/L ALBUMIN 4.1 3.5 - 5.0 g/dL BILIRUBIN, TOTAL 1.0 <1.2 mg/dL TOTAL PROTEIN 6.7 6.4 - 8.3 g/dL eGFR >90.0 >60.0 mL/min/1.73m*2 Lipase Collection Time: 11/14/24 3:35 AM Result Value Ref Range LIPASE 11 <55 U/L Serial Troponin, High Sensitivity Collection Time: 11/14/24 3:35 AM Result Value Ref Range Troponin HS Serial Baseline <3 <=14 ng/L Radiographs: No orders to display Procedures/EKG: EKG Interpreted in [employer] software by myself SCREENINGS EMERGENCY DEPARTMENT COURSE and DIFFERENTIAL DIAGNOSIS/MDM: Vitals: Vitals: 11/14/24 0300 11/14/24 0338 BP: (!) 151/97 (!) 134/81 Pulse: (!) 104 97 Resp: 14 14 Temp: 36.7 C (98.1 F) TempSrc: Oral SpO2: 100% 100% Weight: 72.6 kg (160 lb) Height: 1.676 m (5' 6") The patient presented with a chief complaint of abdominal pain, palpitations. Vital signs reviewed. Exam notable for intermittent fluctuating heart rate, lower abdominal pain. Previous workups were reviewed including notes from cardiology, previous emergency department visits and recent hospitalization. I ordered an EKG to assess for arrhythmia. This showed sinus tachycardia without acute ischemic findings. Discussed at length with patient that she has had multiple workups that have been unremarkable. Ultimately she would like to check blood work. We checked labs and she has a grossly normal CBC without anemia, metabolic panel with a normal kidney function and normal liver function test. Her lipase is not elevated so have low concern for pancreatitis. Discussed that she has undergone CT scan of the abdomen pelvis as well as transvaginal pelvic ultrasound which have not shown any obvious intra abdominal conditions. I do not feel that repeat imaging would be indicated at this time as able to increase patient's risk for radiation exposure and ultrasound currently not available. Considered urinalysis but patient had a UA yesterday that showed no evidence of infection. Treated patient with Tylenol. This did mildly improve her symptoms. I encouraged her to follow-up with her primary care doctor, specialist but after discussion of keep believes of Emergency Department we agreed that there was no indication for additional workup here this morning. Discussed indications for return to emergency department. Patient states understanding agree with plan was discharged home. Diagnoses as of 11/14/24 0522 Palpitations Suprapubic pain ED Medications managed: Medications acetaminophen (Tylenol) tablet 650 mg (650 mg Oral Given 11/14/24 0336) Patients symptoms are consistent with sepsis, severe sepsis or septic shock (if yes, use ".sepsiscoremeasure") - no Final Impression 1. Palpitations 2. Suprapubic pain DISPOSITION discharge Comment: Please note this report has been produced using speech recognition software and may contain errors related to that system including errors in grammar, punctuation, and spelling, as well as words and phrases that may be inappropriate. If there are any questions or concerns please feel free to contact the dictating provider for clarification. Nixon Freeman, [employer] [1] Past Medical History: Diagnosis Date Anxiety Asthma (HHS/HCC) 09/2016 Breast cyst, left 06/03/2021 Chronic sinusitis 12/2016 E[facility] eval [facility] GERD (gastroesophageal reflux disease) 07/2016 EGD per [facility] Hypothyroid 2009 IBS (irritable bowel syndrome) 02/2016 constipation - Colonoscopy per [facility] Migraines Neck pain Palpitations [2] Past Surgical History: Procedure Laterality Date BREAST LUMPECTOMY 08/2024 COLONOSCOPY 02/2016 [facility] TONSILLECTOMY (HISTORICAL) 1999 UPPER GASTROINTESTINAL ENDOSCOPY 11/2016 [facility] [3] Social History Socioeconomic History Marital status: Tobacco Use Smoking status: Never Smokeless tobacco: Former Quit date: 04/05/2016 Vaping Use Vaping status: Never Used Substance and Sexual Activity Alcohol use: Not Currently Drug use: No Comment: caffiene: none Sexual activity: Yes Social History Narrative to Emile Nielson) since 07/21. NS or drinker, no children. 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 Social Drivers of Health Financial Resource Strain: Low Risk (04/20/2021) Received from [facility] Overall Financial Resource Strain (CARDIA) Difficulty of Paying Living Expenses: Not hard at all Food Insecurity: No Food Insecurity (10/10/2024) Received from [facility] Hunger Vital Sign Worried About Running Out of Food in the Last Year: Never true Ran Out of Food in the Last Year: Never true Transportation Needs: No Transportation Needs (10/28/2024) PRAPARE - Transportation Lack of Transportation (Medical): No Lack of Transportation (Non-Medical): No Physical Activity: Sufficiently Active (04/20/2021) Received from [facility] Exercise Vital Sign Days of Exercise per Week: 5 days Minutes of Exercise per Session: 30 min Stress: No Stress Concern Present (04/20/2021) Received from [facility] [employer] [place] [employer] - Occupational Stress Questionnaire Feeling of Stress : Not at all Social Connections: Moderately Integrated (04/20/2021) Received from [facility] Social Connection and Isolation Panel [NHANES] Frequency of Communication with Friends and Family: More than three times a week Frequency of Social Gatherings with Friends and Family: Twice a week Attends Mosque Services: More than 4 times per year Active Member of Clubs or Organizations: No Attends Club or Organization Meetings: Never Marital Status: Housing Stability: Low Risk (10/28/2024) Housing Stability Vital Sign Unable to Pay for Housing in the Last Year: No Number of Times Moved in the Last Year: 0 Homeless in the Last Year: No [4] Allergies Allergen Reactions Nitrofurantoin Other reaction(s): difficulty breathing Alprazolam Unknown Quetiapine Other Nixon Freeman DO 11/14/24 0534 States has been having palpitations on and off for about a month-has been seen here for this and followed up with doc and placed on Holter monitor. Also has been having low belly pain for several weeks. documented in this encounter [facility] 11-14-2024 Emergency department Triage note States has been having palpitations on and off for about a month-has been seen here for this and followed up with doc and placed on Holter monitor. Also has been having low belly pain for several weeks. [facility] 11-14-2024 Physician Emergency department Note Emergency Department Encounter [facility] ED Patient: May Machelle : 1995 Date of Evaluation: 11/14/2024 ED Provider: Nixon Freeman DO Chief Complaint Chief Complaint Patient presents with Abdominal Pain TORIBIO Carty is a 29 y.o. female who presents to the emergency department complaining of palpitations and abdominal pain. Patient reports a significant recent history of palpitations and abdominal pain. This has been ongoing and she has seen several specialist including cardiology and gastroenterology. She has been on beta-blockers, recently started BuSpar. She is scheduled for an EGD next week. Tonight she woke up with more severe lower abdominal pain. She states this has been ongoing and this is becoming more uncomfortable and difficult to function. She takes Tylenol and [id number] medications with no improvement in symptoms. Avoids other medications due to her active breast-feeding. Additional history obtained from : n/a Barriers to obtaining history from patient: n/a ROS: Review of Systems completed as follows: (Bold = positive, Not bold = negative) GENERAL: fevers, chills, malaise NEURO: weakness, numbness of tingling, headache CARDIOVASCULAR: chest pain, syncope, palpitations PULMONARY: shortness of breath, cough, wheezing GASTROINTESTINAL: nausea, vomiting, abdominal pain, diarrhea, constipation, MUSCULOSKELETAL: pain SKIN: rash, lesions, wound Past History Medical History[1] Surgical History[2] Social History[3] I have reviewed the history above as provided by nursing notes. Medications/Allergies Discharge Medication List as of 11/14/2024 4:15 AM CONTINUE these medications which have NOT CHANGED Details pantoprazole (ProtoNix) 20 MG EC tablet Take 20 mg by mouth every morning (before breakfast)., Historical Med MV-Min-Fe Fum-FA-DHA ( 1 PO) Take by mouth., Historical Med Probiotic Product (PROBIOTIC DAILY PO) Take by mouth., Historical Med Allergies[4] I have reviewed the history above as provided by nursing notes. Physical Exam ED Triage Vitals Temp Heart Rate Resp BP 11/14/2429911/14/2429911/14/2429911/14/24299 36.7 C (98.1 F) (!) 104 14 (!) 151/97 SpO2 Temp Source Heart Rate Source Patient Position 11/14/2429911/14/2429910/25 0338 -- 100 % Oral Monitor BP Location FiO2 (%) -- -- GENERAL: The patient appears nourished and normally developed. Vital signs as documented. EYES: PERRL. No scleral icterus or orbital trauma noted. HEENT: Mucous membranes moist. Nares patent without copious rhinorrhea. LUNGS: Lungs are clear to auscultation, without any respiratory distress. CARDIAC: Fluctuating heart rate with occasional tachycardia. Rhythm is regular. No murmur appreciated ABDOMEN: Mild suprapubic tenderness to palpation, soft, with no obvious masses, and no peritoneal signs. EXTREMITIES: Non edematous, with no obvious deformities. SKIN: Good color, with no significant rashes. No pallor. NEURO: No obvious neurological deficits, normal sensation and strength bilaterally. Diagnostics Labs: Results for orders placed or performed during the hospital encounter of 11/14/24 CBC auto differential Collection Time: 11/14/24 3:35 AM Result Value Ref Range Auto WBC 4.7 3.6 - 10.7 10*3/uL RBC 5.01 3.80 - 5.20 10*6/uL Hemoglobin 14.3 11.7 - 16.0 g/dL Hematocrit 42.6 35.0 - 47.0 % MCV 85.0 77.0 - 99.0 fL MCH 28.5 26.0 - 34.0 pg MCHC 33.6 30.5 - 36.0 % RDW 12.1 11.5 - 15.0 % Platelets 179 140 - 440 10*3/uL MPV 9.9 9.0 - 12.7 fL nRBC 0.0 0.0 - 2.0 /100 WBCs Neutrophils Relative 58.4 38.0 - 82.0 % Lymphocytes Relative 32.8 15.0 - 45.0 % Monocytes Relative 5.9 5.0 - 13.0 % Eosinophils Relative 2.3 0.0 - 6.0 % Basophils Relative 0.4 0.0 - 2.0 % Immature Grans % 0.2 0.0 - 2.0 % Neutrophils Absolute 2.8 1.8 - 7.5 10*3/uL Lymphocytes Absolute 1.6 1.0 - 4.3 10*3/uL Monocytes Absolute 0.3 0.0 - 0.9 10*3/uL Eosinophils Absolute 0.1 0.0 - 0.5 10*3/uL Basophils Absolute 0.0 0.0 - 0.2 10*3/uL Immature Grans Absolute 0.0 <0.1 10*3/uL Comprehensive metabolic panel Collection Time: 11/14/24 3:35 AM Result Value Ref Range SODIUM 142 136 - 145 mmol/L POTASSIUM 3.7 3.5 - 5.1 mmol/L CHLORIDE 106 98 - 107 mmol/L CARBON DIOXIDE 25 22 - 29 mmol/L ANION GAP 11 3 - 13 mmol/L UREA NITROGEN 14 8 - 21 mg/dL CREATININE 0.86 0.57 - 1.11 mg/dL GLUCOSE 92 74 - 100 mg/dL CALCIUM 9.5 8.4 - 10.2 mg/dL AST (SGOT) 17 <34 U/L ALT 18 <30 U/L ALKALINE PHOSPHATASE 52 40 - 150 U/L ALBUMIN 4.1 3.5 - 5.0 g/dL BILIRUBIN, TOTAL 1.0 <1.2 mg/dL TOTAL PROTEIN 6.7 6.4 - 8.3 g/dL eGFR >90.0 >60.0 mL/min/1.73m*2 Lipase Collection Time: 11/14/24 3:35 AM Result Value Ref Range LIPASE 11 <55 U/L Serial Troponin, High Sensitivity Collection Time: 11/14/24 3:35 AM Result Value Ref Range Troponin HS Serial Baseline <3 <=14 ng/L Radiographs: No orders to display Procedures/EKG: EKG Interpreted in [employer] software by myself SCREENINGS EMERGENCY DEPARTMENT COURSE and DIFFERENTIAL DIAGNOSIS/MDM: Vitals: Vitals: 11/14/24 0300 11/14/24 0338 BP: (!) 151/97 (!) 134/81 Pulse: (!) 104 97 Resp: 14 14 Temp: 36.7 C (98.1 F) TempSrc: Oral SpO2: 100% 100% Weight: 72.6 kg (160 lb) Height: 1.676 m (5' 6") The patient presented with a chief complaint of abdominal pain, palpitations. Vital signs reviewed. Exam notable for intermittent fluctuating heart rate, lower abdominal pain. Previous workups were reviewed including notes from cardiology, previous emergency department visits and recent hospitalization. I ordered an EKG to assess for arrhythmia. This showed sinus tachycardia without acute ischemic findings. Discussed at length with patient that she has had multiple workups that have been unremarkable. Ultimately she would like to check blood work. We checked labs and she has a grossly normal CBC without anemia, metabolic panel with a normal kidney function and normal liver function test. Her lipase is not elevated so have low concern for pancreatitis. Discussed that she has undergone CT scan of the abdomen pelvis as well as transvaginal pelvic ultrasound which have not shown any obvious intra abdominal conditions. I do not feel that repeat imaging would be indicated at this time as able to increase patient's risk for radiation exposure and ultrasound currently not available. Considered urinalysis but patient had a UA yesterday that showed no evidence of infection. Treated patient with Tylenol. This did mildly improve her symptoms. I encouraged her to follow-up with her primary care doctor, specialist but after discussion of keep believes of Emergency Department we agreed that there was no indication for additional workup here this morning. Discussed indications for return to emergency department. Patient states understanding agree with plan was discharged home. Diagnoses as of 11/14/24521 Palpitations Suprapubic pain ED Medications managed: Medications acetaminophen (Tylenol) tablet 650 mg (650 mg Oral Given 11/14/24 0336) Patients symptoms are consistent with sepsis, severe sepsis or septic shock (if yes, use ".sepsiscoremeasure") - no Final Impression 1. Palpitations 2. Suprapubic pain DISPOSITION discharge Comment: Please note this report has been produced using speech recognition software and may contain errors related to that system including errors in grammar, punctuation, and spelling, as well as words and phrases that may be inappropriate. If there are any questions or concerns please feel free to contact the dictating provider for clarification. Nixon Freeman, [employer] [1] Past Medical History: Diagnosis Date Anxiety Asthma (HHS/HCC) 09/2016 Breast cyst, left 06/03/2021 Chronic sinusitis 12/2016 E[facility] eval [facility] GERD (gastroesophageal reflux disease) 07/2016 EGD per [facility] Hypothyroid 2008 IBS (irritable bowel syndrome) 02/2016 constipation - Colonoscopy per [facility] Migraines Neck pain Palpitations [2] Past Surgical History: Procedure Laterality Date BREAST LUMPECTOMY 08/2024 COLONOSCOPY 02/2016 [facility] TONSILLECTOMY (HISTORICAL) 1999 UPPER GASTROINTESTINAL ENDOSCOPY 11/2016 [facility] [3] Social History Socioeconomic History Marital status: Tobacco Use Smoking status: Never Smokeless tobacco: Former Quit date: 04/05/2016 Vaping Use Vaping status: Never Used Substance and Sexual Activity Alcohol use: Not Currently Drug use: No Comment: caffiene: none Sexual activity: Yes Social History Narrative to Emile Nielson) since 07/21. NS or drinker, no children. 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 Social Drivers of Health Financial Resource Strain: Low Risk (04/20/2021) Received from [facility] Overall Financial Resource Strain (CARDIA) Difficulty of Paying Living Expenses: Not hard at all Food Insecurity: No Food Insecurity (10/10/2024) Received from [facility] Hunger Vital Sign Worried About Running Out of Food in the Last Year: Never true Ran Out of Food in the Last Year: Never true Transportation Needs: No Transportation Needs (10/28/2024) PRAPARE - Transportation Lack of Transportation (Medical): No Lack of Transportation (Non-Medical): No Physical Activity: Sufficiently Active (04/20/2021) Received from [facility] Exercise Vital Sign Days of Exercise per Week: 5 days Minutes of Exercise per Session: 30 min Stress: No Stress Concern Present (04/20/2021) Received from [facility] [place] [facility] Occupational [facility] - Occupational Stress Questionnaire Feeling of Stress : Not at all Social Connections: Moderately Integrated (04/20/2021) Received from [facility] Social Connection and Isolation Panel [NHANES] Frequency of Communication with Friends and Family: More than three times a week Frequency of Social Gatherings with Friends and Family: Twice a week Attends Mosque Services: More than 4 times per year Active Member of Clubs or Organizations: No Attends Club or Organization Meetings: Never Marital Status: Housing Stability: Low Risk (10/28/2024) Housing Stability Vital Sign Unable to Pay for Housing in the Last Year: No Number of Times Moved in the Last Year: 0 Homeless in the Last Year: No [4] Allergies Allergen Reactions Nitrofurantoin Other reaction(s): difficulty breathing Alprazolam Unknown Quetiapine Other Nixon Hali Freeman [facility] Note HNO ID: [id number] Author: TARIQ SINGLETON APRN.BUILD AND DEPLOYMENT ENGINEER Service: ? Author Type: Nurse Practitioner Type: Progress Notes Filed: 11/12/2024 09:44 Note Text: CHIEF COMPLAINT: Patient presents with: ER F/U HPI May Machelle is a 29 year old female here today for ER F/U. At the end of September, she was having palpitations, chest/abdominal pain and was in the ER a couple times. CT a/p was completed and unremarkable. Cardiac work up negative. She currently has 14 day heart monitor on and will be completed this Sunday. She has had increased bloating, abdominal pain, throat pain, chest pain. Feels difficult to swallow. She is having burning in her esophagus and reflux. Stools have been orange colored, but not loose, but not formed; just very soft. PCP just started her on pantoprazole 3 days ago, so hard to say if helpful yet. Niece has celiac. Celiac serology negative, but has low IgA. Scheduled for lactulose breath test 12/02/24. Current Outpatient Medications Medication Sig pantoprazole DR (PROTONIX) 20 mg tablet Take 20 mg by mouth. desvenlafaxine ER (PRISTIQ) 50 mg 24 hr tablet Take 1 tablet by mouth once daily. (Patient not taking: Reported on 11/12/2024) no115/iron/folic acid ( 19 ORAL) Take 1 tablet by mouth once daily. (Patient not taking: Reported on 11/12/2024) No current facility-administered medications for this visit. ALLERGIES Allergen Reactions Alprazolam Unknown Quetiapine Fumarate Unknown SOCIAL HISTORY[1] History reviewed. No pertinent past medical history. PAST SURGICAL HISTORY Procedure Laterality Date BREAST LUMPECTOMY HX 08/2024 COLONOSCOPY 03/2024 TONSILLECTOMY AND ADENOIDECTOMY FAMILY HISTORY Problem Relation Age of Onset Colon Cancer Maternal Grandmother REVIEW OF SYSTEMS Review of Systems Constitutional: Positive for appetite change. HENT: Positive for trouble swallowing. Cardiovascular: Positive for chest pain and palpitations. Gastrointestinal: Positive for abdominal distention, abdominal pain, anal bleeding, blood in stool and nausea. Gas, Heartburn All other systems reviewed and are negative. PHYSICAL EXAM BP 102/60 Pulse 88 Ht 5' 6" (1.68m) Wt 166 lb (75.3kg) SpO2 97% BMI 26.81 kg/(m2). Physical Exam Vitals and nursing note reviewed. Constitutional: Appearance: Normal appearance. She is normal weight. Cardiovascular: Rate and Rhythm: Normal rate and regular rhythm. Pulmonary: Breath sounds: Normal breath sounds. Abdominal: General: Abdomen is flat. Bowel sounds are normal. Palpations: Abdomen is soft. Tenderness: There is abdominal tenderness (mild) in the right lower quadrant. There is no guarding or rebound. Skin: General: Skin is warm and dry. Neurological: Mental Status: She is alert and oriented to person, place, and time. Psychiatric: Mood and Affect: Mood normal. Behavior: Behavior normal. Thought Content: Thought content normal. Judgment: Judgment normal. ASSESSMENT: (R14.0) Bloating (primary encounter diagnosis) (Z83.79) Family history of celiac disease (R14.2) Belching (R10.10) Upper abdominal pain (R13.10) Dysphagia, unspecified type 1. Bloating (Primary) - ongoing bloating, belching and upper abdominal pain/chest pain. Plan for EGD for further evaluation. Request small bowel biopsies given bloat and family hx of celiac disease. - continue pantoprazole - await lactulose hydrogen breath test - EGD DIAGNOSTIC; Future 2. Family history of celiac disease - EGD 3. Belching - continue pantoprazole and plan for EGD - EGD DIAGNOSTIC; Future 4. Upper abdominal pain - EGD DIAGNOSTIC; Future 5. Dysphagia, unspecified type - EGD Follow up in office after EGD and breath test Tariq Singleton, WILLARD.BUILD AND DEPLOYMENT ENGINEER November 12, 2024 9:42 AM [1] Social History Tobacco Use Smoking status: Never Smokeless tobacco: Never Vaping Use Vaping status: Never Used Substance Use Topics Drug use: Never [facility] 11-11-2024 History of Present illness Narrative [facility] [place] [facility]Electrophysiology Follow-Up clinic Note Chief Complaint: Chief Complaint Patient presents with Hospital Follow-up Palpitations History of Present Illness: Dulce Maria Carty is a 29 y.o. female whom I met in June 2022 for episodes of near syncope. She has had orthostatic dizziness since 11 yo. The episodes were always related to change in position. They were characterized by diaphoresis, nausea, blurry vision and palpitation. Her noted her to be pale. Her pulse was in the low 100s with the episodes, but she had never measured her BP. They lasted several minutes, occurred several times/week, and were concentrated around her menstrual period. She had enough aura that she can sit down or lay down. She has had occasional syncope, maybe 3 or 4 times over the last 15 years, and none over the last several years. When I met her she wanted to avoid meds and I encouraged her to stay well-hydrated and liberalize salt in her diet. She followed up once, in Feb 2023, when she was with her first child, complaining mostly of episodes of eye pain with flashing lights when she closes her eyes, ringing in her ears, and pain in the back of her neck. I reassured her without any testing. In Jul [address] Silva who, for no good reason, ordered another echo and another Holter, both of which were unremarkable. Since September 2024, she has had multiple visits to several different EDs and was even admitted to for palpitation, tremulousness, dizziness, and shakiness. MRIs, EEGs, and CTs have been normal. She also saw an REFRIGERATION SERVICE TECHNICIAN in the [place] [facility] on October 27. Another 2-week Holter was placed (she currently has it on) and a tilt table test was ordered. She was put on gabapentin and a small dose of metoprolol She presents today feeling a little better. She reports that her palpitation and feeling her heart racing is a little better. She reports a number of atypical symptoms including head pressure, shaking, and abdominal pain. She continues to have some orthostatic dizziness which has really not changed much in frequency. She is otherwise active. She has not exercised as much as she usually did. An EKG today is normal. An event monitor in May 2021 showed only single PACs and PVCs. Multiple echoes have been normal including the one from Oct 2024. Several brain MRIs and head CTs have also been normal. Assessment and Plan: 1. Dysautonomia/orthostatic hypotension: Most of her symptoms are fairly classic for a dysautonomia. Her syndrome is more consistent with hypotension rather than postural tachycardia. We shall see what they have 2-week Holter shows. She rather follow-up here and therefore I think it is reasonable to order a tilt table test with us to make sure she does not have a component of cardioinhibitory syncope. She does not really need any further workup. She is fairly against taking medications. I we will stop the tiny dose of metoprolol. I see no reason for her to be taking gabapentin. Today we spoke again about keeping well-hydrated and liberalizing salt in her diet. I also asked her to continue to monitor her HR and BPs when the episodes occur. Today we had a long discussion about the fact that these symptoms do not require her to go to the emergency room. I have given her the information to purchase the [employer] jonny to record some strips when her monitor is completed. In the past we had spoken about meds like Florinef or midodrine, or even Corlanor if this was mostly a tachycardia related problem. I will see her after the tests are done. Past Medical History: Medical History[1] Past Surgical History Surgical History[2] Family History Family History[3] Social History Social History[4] Medications: Reviewed Allergies: Reviewed Review of Systems: All other systems were reviewed and are negative other than as noted in the HPI. Physical Examination: Vitals: Blood pressure 106/60, pulse 91, height 5' 6" (1.676 m), weight 167 lb 3.2 oz (75.8 kg), SpO2 98%, currently . Constitutional: Appears well kept and looks stated [...] Tests: Lab Results Component Value Date WBC 6.4 10/30/2024 WBC 5.9 10/29/2024 WBC 5.7 10/28/2024 HGB 13.7 10/30/2024 HGB 14.0 10/29/2024 HGB 14.3 10/28/2024 HCT 39.5 10/30/2024 HCT 41.6 10/29/2024 HCT 41.5 10/28/2024 MCV 83.3 10/30/2024 MCV 84.6 10/29/2024 MCV 83.0 10/28/2024 PLT 211 10/30/2024 PLT 205 10/29/2024 PLT 195 10/28/2024 Lab Results Component Value Date NA 142 10/30/2024 NA 140 10/29/2024 NA 141 10/28/2024 K 3.7 10/30/2024 K 3.9 10/29/2024 K 3.7 10/28/2024 CL 107 10/30/2024 CL 107 10/29/2024 CL 106 10/28/2024 CO2 23 10/30/2024 CO2 23 10/29/2024 CO2 22 10/28/2024 BUN 9 10/30/2024 BUN 13 10/29/2024 BUN 13 10/28/2024 CREATININE 0.82 10/30/2024 CREATININE 0.81 10/29/2024 CREATININE 0.82 10/28/2024 GLU 100 01/04/2022 GLU 73 01/03/2022 GLU 79 04/07/2021 Lab Results Component Value Date TSH 1.46 10/30/2024 Lab Results Component Value Date CHOL 240 (H) 10/29/2024 CHOL 229 (A) 04/07/2021 Lab Results Component Value Date HDL 103 10/29/2024 HDL 127 (A) 04/07/2021 Lab Results Component Value Date LDLCALC 127 (H) 10/29/2024 Lab Results Component Value Date TRIG 51 10/29/2024 TRIG 38 04/07/2021 Solange Corcoran MD DATE of SERVICE: 11/11/2024 [1] Past Medical History: Diagnosis Date Anxiety Asthma (HHS/HCC) 09/2016 Breast cyst, left 06/03/2021 Chronic sinusitis 12/2016 ENT eval per [facility] GERD (gastroesophageal reflux disease) 07/2016 EGD per [facility] Hypothyroid 2009 IBS (irritable bowel syndrome) 02/2016 constipation - Colonoscopy per [facility] Migraines Neck pain Palpitations [2] Past Surgical History: Procedure Laterality Date BREAST LUMPECTOMY 08/2024 COLONOSCOPY 02/2016 [facility] TONSILLECTOMY (HISTORICAL) 1999 UPPER GASTROINTESTINAL ENDOSCOPY 11/2016 [facility] [3] Family History Problem Relation Name Age of Onset Ovarian cancer Neg Hx Diabetes Mother 35.00 on insulin at > 50 Lung cancer Maternal Grandfather Diabetes Maternal Cousin Gayle Colon cancer Maternal Grandmother 80.00 No Known Problems Paternal Grandmother Thyroid cancer Maternal Cousin Gayle Pancreatic cancer Mother Breast cancer Neg Hx No Known Problems Paternal Grandfather Other ([id number]) Father Danya 54.00 MVA in 2011 No Known Problems Sister Prostate cancer Maternal Grandfather [4] Social History Tobacco Use Smoking status: Never Smokeless tobacco: Former Quit date: 04/05/2016 Vaping Use Vaping status: Never Used Substance Use Topics Alcohol use: Not Currently Drug use: No Comment: caffiene: none documented in this encounter [facility] 11-11-2024 Instructions Solange Corcoran MD - 11/11/2024 2:00 PM EDT Stop the beta yeyo and the gabapentin Check your heart rate and your blood pressure a few times a week and certainly when you get symptomatic. Write them down and bring them in next time. Check a Kardia rhythm strip if your heart feels like it's racing. documented in this encounter [facility] 11-10-2024 Progress note [facility] 11-10-2024 Telephone encounter Note Form atting of this note might be different from the original. I left a message with May on her voicemail to tell her that she has an appointment tomorrow. However it appears that she has been in the emergency room several times and also that she has seen other volumetric weigher in the [place] [facility]. She appears to have had a battery of tests that we do not have the results of, including an event monitor. I suggested that she reschedule the appointment until those tests are done. I asked her to call our office back to discuss. [facility] 11-10-2024 Miscellaneous Notes Formattin g of this note might be different from the original. I left a message with May on her voicemail to tell her that she has an appointment tomorrow. However it appears that she has been in the emergency room several times and also that she has seen other volumetric weigher in the [place] [facility]. She appears to have had a battery of tests that we do not have the results of, including an event monitor. I suggested that she reschedule the appointment until those tests are done. I asked her to call our office back to discuss. documented in this encounter [facility] 11-10-2024 Progress note Note Date/Time November 10, 2024 3:06pm [facility]'[address], [address] [place] [address] OFFICE VISIT Date of Service: 11/10/24 MR#: [id number] Acct: [id number] Name: DULCE MARIA CARTY ELIZ Rep #: [id number] : 1995 Provider: Dr. Sapphire Matos DO Age/Sex: 29/F Location[place] [facility] [place] Status: Signed Intake Vital Signs 10/27/24 10:55 11/10/24 14:06 11/10/24 14:06 Height 5 ft 6 in 5 ft 6 in 5 ft 6 in Weight: 142 lb 168 lb 3 oz BMI 22.8 27.1 BP 115/76 123/75 H Blood Pressure Location Lt brachial Position Sitting Respiration 18 Pulse 95 Pulse Source Monitor Pulse Oximetry (%) 96 Intake Visit Reasons: US F/U Home Care Administrator Required: No Is patient in pain?: No Allergies nitrofurantoin Allergy (Severe, Verified 11/10/24 14:06) difficulty breathing alprazolam Adverse Reaction (Intermediate, Verified 11/10/24 14:06) PT UNSURE OF REACTION quetiapine Adverse Reaction (Intermediate, Verified 11/10/24 14:06) PT UNSURE OF REACTION Medications ?Medication ?Instructions ?Recorded ?Confirmed ?Type L. crispatus, gasseri, jensenii, 2 tab PO DAILY PRN 11/10/24 History rhamnosus 12 billion cell chew tablet (Culturelle Probiotic) docosahexaenoic acid 200 mg 200 mg PO DAILY PRN 11/10/24 History capsule ( DHA) sertraline 25 mg tablet (Zoloft) 25 mg PO QDAY 5 11/10/24 History gabapentin 300 mg capsule 300 mg PO BID 11/10/2411/10 History metoprolol succinate 25 mg 12.5 mg PO QDAY 11/10/24 History tablet,extended release 24 hr pantoprazole 40 mg tablet,delayed 40 mg PO QDAY 11/10/24 History release Post menopausal: No Patient : No : No PFSH Medical History Adenoma of breast Thyroid disease Migraine headache History of Holter monitoring History of echocardiogram Cardiology follow-up encounter Vasovagal near syncope IBS (irritable bowel syndrome) GERD (gastroesophageal reflux disease) Diseases of the circulatory system complicating , unspecified trimester Supraventricular tachycardia, unspecified Supraventricular tachycardia during Heart palpitations History of kidney disease Hypothyroidism affecting Normal endoscopic ultrasound of upper gastrointestinal tract Seasonal allergies Supervision of high-risk Infertility associated with anovulation Surgical History S/P lumpectomy, left breast Hx of tonsillectomy [place] teeth extracted History of tonsillectomy Family History Grandmother Colon cancer Diabetes Mother Diabetes Pancreatic cancer Social History adopted: No household members: spouse and children number of children: 2 current occupational status: unemployed current occupation: [employer] current occupational exposures/hazards: No pets and animals: Yes (NOT MANAGING LITTERBOX) pets and animals: cat(s), dog(s), horse(s) and farm animals history of recent travel: No sexually active: Yes Smoking Status: Never smoker alcohol intake: never substance use type: does not use diet: other well-balanced diet: daily or most days caffeine: No eating out: 1-3 times/week during the past year weight has: remained stable what type of physical activity do you participate in: weight training frequency: 5-6 times per week duration: 15-30 minutes/day gale/restoration: Anglican seatbelt use: always do you feel safe at home: Yes additional social history: - LUKE HPI US F/U Details: The patient is a 29-year-old female with a history of amenorrhea and bloating presenting for evaluation. Amenorrhea - LMP: 2 months ago - Currently her [id number] son, but notes a decrease in frequency. - Plans to stop soon. - Expresses concern that hormonal changes related to may be contributing to her amenorrhea. - Interested in running hormone tests to investigate the cause of her amenorrhea. Bloating - Reports significant bloating, sometimes appearing . - Experiences deep pain in her hips associated with bloating. - Recently had a colonoscopy, which was normal. - Scheduled to see a can handler on Sunday to discuss bloating symptoms. Fatigue - Reports feeling tired and worn down. Reproductive Goals - Plans to start trying for another baby in the spring. - Used ovulation strips for 3 months but did not observe ovulation, likely due to amenorrhea and . Past Diagnostic Results: - Colonoscopy: Normal - Pelvic Ultrasound: Normal - Thyroid Function Tests: Ordered by PCP FINDINGS: Measurements: Uterus: Uterus is retroflexed and retroverted measuring 8.2 x 5.7 x 3.8 cm. Myometrium is homogeneous, no fibroid noted Endometrium: Normal thickness at 4 mm, endometrium is hyperechoic Right ovary: 5.6 x 3.5 x 2.1 cm Left ovary: 5.3 x 2.2 x 2.0 cm Neither ovary shows a suspicious mass, both ovaries demonstrate normal color flow Other: No free fluid, bladder distends normally US/Pelvic w/ Transvaginal IMPRESSION: No suspicious sonographic findings History 2 Elective abortions Hx Para 1 Spontaneous abortions Hx # Term Pregnancies Ectopic pregnancies Hx # Pregnancies Multiple births # of living children 2 Past Pregnancies Del. Date Name GA/Weeks Outcome Route Bth Weight Infant Gen Labor Lgth Anesthesia Del Locatn Provider FOB 09/15/20 Leandro 41 live - full term 8#2oz Male epidural [facility] Dr. Valeria Jones 09/26/23 Walker 40 live - full term 8lbs 6oz Male [facility] Luke ROS Const ROS Unobtainable: All systems reviewed & are unremarkable except as noted in H Resp Resp: Reports system reviewed and no additional complaints, except as documented; Denies cough GI GI: Reports as per HPI Psych Psych: Reports system reviewed and no additional complaints, except as documented Exam Const General: cooperative, healthy appearing, comfortable and no acute distress Resp Effort & Inspection: normal respiratory effort Skin General: no rashes or lesions noted Psych Appearance: grossly normal Speech and Movement: speech and movement normal Coding Level of Care Code Off vis,est,level 3 Diagnoses Amenorrhea N91.2 Pelvic pain R10.2 Epigastric abdominal pain R10.13 Assessment and Plan Assessment and Plan (1) Amenorrhea: Status: Acute (2) Pelvic pain: Status: Acute Comment: pelvic US ordered (3) Epigastric abdominal pain: Status: Acute Orders: Orders Estradiol Today N91.2 - Amenorrhea, unspecified, R10.2 - Pelvic and perineal pain FSH and LH Today N91.2 - Amenorrhea, unspecified, R10.2 - Pelvic and perineal pain Antimullerian Hormone, Serum Today N91.2 - Amenorrhea, unspecified, R10.2 - Pelvic and perineal pain Plan # Amenorrhea (N91.2) # Mother currently breast-feeding (Z39.1) - Ongoing lactational amenorrhea; patient is 13 months and continues to breastfeed. - Recent pelvic ultrasound normal; endometrial thickness 4 mm, consistent with either recent menstruation or estrogen deficiency. - Ordered labs: estradiol, FSH, LH, and AMH; prolactin deferred due to ongoing . - Discussed physiology of lactational amenorrhea and its impact on ovulation andmenstruation; explained that even minimal daily can suppress ovulation. - Reviewed potential symptoms of low estrogen, including fatigue, joint pain, and mood changes. - Discussed that amenorrhea related to is generally beneficial foroverall health, including reduced risk of breast and uterine cancer. - Advised that resumption of menses is necessary before attempting conception inthe spring. - Provided education on the relationship between , prolactin, and menstrual suppression. # Bloating (R14.0) - Persistent bloating with normal colonoscopy; patient to follow up with gastroenterology. - Discussed that estrogen deficiency may contribute to bloating and joint pain. - Ordered estradiol, FSH, LH, and AMH levels to assess hormonal status. - Discussed potential benefits of temporarily stopping to see if it alleviates symptoms and allows the body to resume normal cycling. - Informed patient that the lack of estrogen due to could be contributing to symptoms such as fatigue, joint pain, and bloating. - Reassured patient that amenorrhea related to is generally beneficial for overall health, reducing the risk of breast and uterine cancer. - Advised patient to monitor symptoms and consider stopping if symptoms persist or worsen. - No immediate need for laparoscopy to check for endometriosis unless infertility problems arise. Patient Instructions: We discussed your concerns about irregular periods and symptoms potentially related to hormone levels: - Your ultrasound results were normal, showing no abnormalities in the uterus orovaries. The uterine lining measured 4 mm, which can be seen either after a period or with low estrogen levels. - We will check your hormone levels, including estradiol, follicle-stimulating hormone (FSH), luteinizing hormone (LH), and anti-mullerian hormone (AMH), to evaluate your estrogen levels and ovarian function. These tests will help determine if your symptoms are related to or another cause. - A prolactin test was not ordered at this time because can falsely elevate this hormone. - You mentioned ongoing , which may be contributing to your lack ofovulation and periods. can suppress ovulation through hormonal feedback mechanisms. If you are open to it, stopping may help yourbody resume normal cycles. However, this is not required at this time, and we can reassess after reviewing your test results. We discussed your symptoms of bloating and hip pain: - You reported significant bloating and deep hip pain. You are scheduled to see your can handler soon, and your recent colonoscopy was normal. - Low estrogen levels can sometimes contribute to joint pain and bloating. The hormone testing we are performing will help clarify if this is a contributing factor. We discussed your plans for future : - You mentioned wanting to start trying for another baby in the spring. To conceive, it will be important for your menstrual cycles to resume. The hormone testing will help us determine the next steps to support this goal. Next steps: - Your bloodwork will be drawn today in the office. I will review the results and contact you with the findings and recommendations. - Continue with your upcoming gastroenterology appointment to address your bloating symptoms. - If you have any new or worsening symptoms, please let me know. Take care, and we will follow up once your test results are available. 11/10/24 1506 <Electronically signed by Pretty Chu DO> Date _ Pretty Matos DO Cosigner Signature: Date (if applicable) CC: ~ [employer] Work Phone: [phone] History of Present illness Narrative* Teresa Ohara, DIAGNOSTIC IMAGING MANAGER - BUILD AND DEPLOYMENT ENGINEER - 11/10/2024 12:00 PM EDT [facility] NEUROLOGY OUTPATIENT CLINIC Primary Care Physician: Zachariah Rome DO Chief Complaint: Chief Complaint Patient presents with Hospital Follow-up Main Diagnosis: Diagnosis Plan 1. Dizziness History: given by the patient and EMR. EMR was personally reviewed prior to today's visit and included review of prior notes and intermediate communications. HPI: Ms. Dulce Maria Carty is a 29 y.o. female who is seen in the NEUROLOGY CLINIC of [facility] for history of chronic daily headache for the last several months. Patient has a history of migraine headaches but in the last several months has become more frequent and severe. Patient reported that she has had some degree of headaches on a daily basis. Her headaches usually are bilateral, throbbing and associated sometimes with jabbing headache. In addition patient complaining of some light sensitivity as well as photophobia. Patient denied any aura. The patient states she has been [id number]. Patient delivered at the end of 2023. Since then the patient has headache almost on a daily basis. Her headaches vary in intensity from mild to moderate to severe headaches. When the headaches are severe the pain is throbbing associated with photophobia and phonophobia. Patient is breast-feeding and is not allowed to take any of the medication for migraine headache. Recently patient had an MRI of the brain ordered by her PCP. The MRI was unremarkable. Patient denied any other neurologicaldeficit. The last visit was 10/23/2024 with this provider where the patient was breast feeding and unable to start preventative or abortive migraine medications.. Headache characteristics: Description of pain: throbbing pain, sharp pain, bilateral in the frontal area, bilateral in the occipital area. Duration of individual headaches: 8-48 hour(s), frequency weekly. Associated symptoms: light sensitivity, nausea, and sound sensitivity. Pain relief: unable to obtain relief with OTC meds. Precipitating factors: patient is aware of none. INTERVAL HISTORY: Today, the patient returns for follow up due to ED visit 10/30/2024. The patient states continued dizziness and had an increase in palpitations as well as feeling as if she may lose consciousness. She reports neck pain as well as upper chest and shoulder pain along with muscle weakness. She is currently wearing an event monitor and is following with cardiology. An EMG was completed with no concerns and was reviewed by Dr. Cortez. The patient states she was admitted to the hospital due to waking with numbness in left arm. Statesshe is still feeling weak. Thinks losing muscle. Muscle loss is not appreciated in the office. Discussed medications that may be impacting feeling of weakness and dizziness including gabapentin and sertraline. The patient states she will discuss reducing medications doses with prescribing provider. The patient is scheduled for vestibular testing in January. The patient denies any other neurological deficits. Current Migraine Meds: No medications at this time Side effects: N/A Previous medication trials: No previous trials Previous Workup: MRI Brain W WO-10/13/2024 IMPRESSION: Normal contrast-enhanced MRI of the brain and cervical spine. Medical History[1] Surgical History[2] Allergies[3] Medications Ordered Prior to Encounter[4] Current Medications[5] Family History[6] Social Connections: Moderately Integrated (04/20/2021) Received from [facility] Social Connection and Isolation Panel [NHANES] Frequency of Communication with Friends and Family: More than three times a week Frequency of Social Gatherings with Friends and Family: Twice a week Attends Mosque Services: More than 4 times per year Active Member of Clubs or Organizations: No Attends Club or Organization Meetings: Never Marital Status: REVIEW OF SYSTEMS: Review of Systems Constitutional: Negative for activity change, appetite change and chills. HENT: Negative for ear pain, facial swelling, mouth sores, rhinorrhea, sinus pressure, sinus pain and tinnitus. Eyes: Negative for photophobia, pain and visual disturbance. Respiratory: Negative for cough and chest tightness. Gastrointestinal: Negative for abdominal pain, nausea and vomiting. Endocrine: Negative for cold intolerance and heat intolerance. Genitourinary: Negative for difficulty urinating. Musculoskeletal: Positive for neck pain. Allergic/Immunologic: Negative for food allergies. Neurological: Positive for dizziness, tremors, weakness and headaches. Negative for syncope, speechdifficulty and numbness. Hematological: Does not bruise/bleed easily. Psychiatric/Behavioral: Negative for confusion, decreased concentration and hallucinations. The patient is nervous/anxious. All other systems reviewed and are negative. PHYSICAL EXAM: BP 119/69 Pulse 92 Temp 37 C (98.6 F) (Infrared) Ht 5' 7" (1.702 m) Wt 167 lb (75.8 kg) BMI 26.16 kg/m Physical Exam Vitals and nursing note reviewed. Constitutional: Appearance: Normal appearance. She is normal weight. HENT: Head: Normocephalic. Nose: Nose normal. Eyes: Extraocular Movements: Extraocular movements intact. Conjunctiva/sclera: Conjunctivae normal. Pulmonary: Effort: Pulmonary effort is normal. Musculoskeletal: General: Normal range of motion. Cervical back: Normal range of motion. Skin: General: Skin is warm and dry. Neurological: General: No focal deficit present. Mental Status: She is alert and oriented to person, place, and time. Mental status is at baseline. Motor: Weakness and tremor present. Gait: Gait is intact. Comments: Slight left sided weakness. Tremor when testing strength with hand pump assembler. Psychiatric: Mood and Affect: Mood normal. Behavior: Behavior normal. Thought Content: Thought content normal. Judgment: Judgment normal. ASSESSMENT: 29 y.o. female with past medical history as above who presents for follow up evaluation of continued headache pain, dizziness, muscle spasms and weakness. IMPRESSION: Diagnosis Plan 1. Dizziness PLAN: 1. Patient advised to discuss possible medication changes in gabapentin and sertraline that may be impacting patient's symptoms. 2. Vestibular testing scheduled due to continued dizziness. 3. Patient will consider Botox as treatment option for migraine and masseter muscle pain. 4. Return to neurology clinic in 4 weeks, sooner if needed. I hope that all of your questions and concerns were addressed during today's visit. Please don't hesitate to call the Department of Neurology at [phone] for any further concerns. Sincerely, WILLARD Huff CNP The above diagnosis and management plan were discussed at length with the patient who voiced understanding and agreed. Electronically signed by: WILLARD Huff CNP 11/10/2024 12:06 PM [1] Past Medical History: Diagnosis Date Anxiety Asthma (HHS/HCC) 09/2016 Breast cyst, left 06/03/2021 Chronic sinusitis 12/2016 ENT eval per [facility] GERD (gastroesophageal reflux disease) 07/2016 EGD per [facility] Hypothyroid 2009 IBS (irritable bowel syndrome) 02/2016 constipation - Colonoscopy per [facility] Migraines Neck pain Palpitations [2] Past Surgical History: Procedure Laterality Date BREAST LUMPECTOMY 08/2024 COLONOSCOPY 02/2016 [facility] TONSILLECTOMY (HISTORICAL) 1999 UPPER GASTROINTESTINAL ENDOSCOPY 11/2016 [facility] [3] Allergies Allergen Reactions Nitrofurantoin Other reaction(s): difficulty breathing Alprazolam Unknown Quetiapine Other [4] Current Outpatient Medications on File Prior to Visit Medication Sig Dispense Refill gabapentin (Neurontin) 300 MG capsule Take 1 capsule (300 mg) by mouth 2 times daily as needed (anxiety, 1st line). 120 capsule 0 metoprolol succinate XL (Toprol-XL) 25 MG 24 hr tablet 0.5 tablets Nightly. pantoprazole (ProtoNix) 20 MG EC tablet Take 20 mg by mouth every morning (before breakfast). MV-Min-Fe Fum-FA-DHA ( 1 PO) Take by mouth. Probiotic Product (PROBIOTIC DAILY PO) Take by mouth. [DISCONTINUED] ondansetron ODT (Zofran-ODT) 4 MG disintegrating tablet Take 1 tablet (4 mg) by mouth every 8 hours as needed for nausea or vomiting for up to 7 days. (Patient not taking: Reported on 11/10/2024) 20 tablet 0 [DISCONTINUED] sertraline (Zoloft) 25 MG tablet Take 25 mg by mouth daily. (Patient not taking: Reported on 11/11/2024) No current facility-administered medications on file prior to visit. [5] Current Outpatient Medications Medication Sig Dispense Refill gabapentin (Neurontin) 300 MG capsule Take 1 capsule (300 mg) by mouth 2 times daily as needed (anxiety, 1st line). 120 capsule 0 metoprolol succinate XL (Toprol-XL) 25 MG 24 hr tablet 0.5 tablets Nightly. pantoprazole (ProtoNix) 20 MG EC tablet Take 20 mg by mouth every morning (before breakfast). MV-Min-Fe Fum-FA-DHA ( 1 PO) Take by mouth. Probiotic Product (PROBIOTIC DAILY PO) Take by mouth. ondansetron ODT (Zofran-ODT) 4 MG disintegrating tablet Take 1 tablet (4 mg) by mouth every 8 hoursas needed for nausea or vomiting for up to 7 days. (Patient not taking: Reported on 11/10/2024) 20 tablet 0 sertraline (Zoloft) 25 MG tablet Take 25 mg by mouth daily. (Patient not taking: Reported on 11/10/2024) No current facility-administered medications for this visit. [6] Family History Problem Relation Name Age of Onset Ovarian cancer Neg Hx Diabetes Mother 35.00 on insulin at > 50 Lung cancer Maternal Grandfather Diabetes Maternal Cousin Gayle Colon cancer Maternal Grandmother 80.00 No Known Problems Paternal Grandmother Thyroid cancer Maternal Cousin Gayle Pancreatic cancer Mother Breast cancer Neg Hx No Known Problems Paternal Grandfather Other ([id number]) Father Danya 54.00 MVA in 2011 No Known Problems Sister Prostate cancer Maternal Grandfather documented in this [facility]09-[facility]2025 [facility] 10-30-2024 Hospital Discharge instructions* Discharge Instructions* Jamal Almaguer MD - 10/30/2024 11:59 PM EDT You have been seen in the Emergency Department for palpitations, tingling sensation, anxiety and nearly passing out. Your CAT scan shows no pulmonary embolism. Your EKG shows no dysrhythmia. Your cardiac enzymes are negative. Your thyroid studies are negative. The remainder of your labs are normal.You are not . I have discussed your case with cardiology and they feel comfortable discharging you home this evening. Stay on the metoprolol and gabapentin as prescribed. After a visit to the Emergency Department, follow-up is important. You should keep your previously scheduled follow-up appointments with neurology for the EMG 10/30/2024, endocrinology and gynecology,and Dr. Corcoran from cardiology for the Holter monitor and possible tilt table test. Return to the ED if you develop chest pain, palpitations lasting longer than 30 minutes, shortness of breath, decreased exercise tolerance, you pass out, nausea vomiting or sweating, numbness or in the arms or legs, slurred speech facial droop or seizures, or if any new signs, symptoms, or concernsarise. * Attachments The following attachments cannot be sent through Care Everywhere. * Near Fainting Discharge Instructions (Gambian) * Palpitations (Gambian) * Anxiety Discharge Instructions, Adult (Gambian) * Paresthesia Discharge Instructions (Gambian) documented in this [facility]09-25-2025 Emergency department Note* Jamal Almaguer MD - 10/30/2024 10:42 PM EDT Images from the original note were not included. EMERGENCY DEPARTMENT ENCOUNTER Pt Name: Dulce Maria Carty Birthdate 1995 Date of evaluation: 10/30/2024 ED Provider: Jamal Almaguer MD CHIEF COMPLAINT Chief Complaint Patient presents with Numbness Palpitations HISTORY OF PRESENT ILLNESS (Location/Symptom, Timing/Onset, Context/Setting, Quality, Duration, Modifying Factors, Severity) Note limiting factors. I wore appropriate PPE for the entirety of this encounter. HPI Dulce Maria Carty is a 29 y.o. who presents to the emergency department with multiple complaints Patient has been having intermittent episodes of palpitations and lightheadedness and near syncope for the past month or more. Patient has been seen in this emergency department 7 times in the last 30 days for similar issues. She was hospitalized on 10/28/2024 and an extensive workup was performed in which she saw medicine, cardiology, endocrinology, psychiatry. Cardiology is in the process of working her up for possible postural orthostatic tachycardia/POTS syndrome. There is a tilt table test planned but this has not happened yet. She is on metoprolol twice a day which she make sure to take at the same time every day. She had an MRI of her brain and her cervical spine on 10 October which were negative. She has an EMG appointment scheduled for 03 November. Thyroid nodules were discovered but patient is not on any thyroid replacement and radiology did not feel that any further diagnostics were necessary given the relatively small size. She was also seen by psychiatry who started her on gabapentin 300 mg for anxiety and Vistaril 25 mg for anxiety as needed; she has not been taking the Vistaril but she has been taking her gabapentin. She also has a history of IBS GERD anxiety thyroid nodules palpitations chronic daily headaches migraines asthma chronic tremors. Past surgical history of tonsillectomy and breast lumpectomy. Family history of diabetes and pancreatic cancer. No known cancer history herself. Does not smoke does not drink does not vape. Patient presents to the ED today for sudden onset palpitations anxiety and bilateral facial paresthesias and bilateral hand and arm paresthesias which awakened her from sleep at 2200. Last known normal was just before she went to sleep earlier this evening. Patient has no actual numbness or weakness in the arms or legs, she has been ambulatory on her own power. Sometimes when she goes from supineto sitting up she feels lightheaded like she is going to pass out but she has not actually passed out. She has no chest pain but she does endorse the palpitations, she has no shortness of breath she has no abdominal pain or vomiting or diarrhea today. No dysuria urgency or frequency today. She is af ebrile, she is normotensive at 123/88, resting heart rate of 93 bpm. She is hyperventilating and anxious and nervous but she is verbally consolable and redirectable. No SI no HI no AH no VH. 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 Limitations to history: None Outside historians: Extensive review of previous records from recent hospital stay REVIEW OF SYSTEMS Review of Systems Pertinent positives and negatives as per HPI PAST MEDICAL HISTORY Medical History[1] SURGICAL HISTORY Surgical History[2] CURRENT MEDICATIONS Previous Medications GABAPENTIN (NEURONTIN) 300 MG CAPSULE Take 1 capsule (300 mg) by mouth 2 times daily as needed (anxiety, 1st line). METOPROLOL SUCCINATE XL (TOPROL-XL) 25 MG 24 HR TABLET 0.5 tablets Nightly. ONDANSETRON ODT (ZOFRAN-ODT) 4 MG DISINTEGRATING TABLET Take 1 tablet (4 mg) by mouth every 8 hoursas needed for nausea or vomiting for up to 7 days. MV-MIN-FE FUM-FA-DHA ( 1 PO) Take by mouth. PROBIOTIC PRODUCT (PROBIOTIC DAILY PO) Take by mouth. SERTRALINE (ZOLOFT) 25 MG TABLET Take 25 mg by mouth daily. ALLERGIES Nitrofurantoin, Alprazolam, and Quetiapine FAMILY HISTORY Family History[3] SOCIAL HISTORY Social History[4] PHYSICAL EXAM ED Triage Vitals Temp Pulse Resp BP -- -- -- -- SpO2 Temp src Heart Rate Source Patient Position -- -- -- -- BP Location FiO2 (%) -- -- Physical Exam General: WDWN adult in emotional distress. Has her face and her hands and is constantly shifting position in bed and tearful. Verbally consolable and redirectable. HENT: Head NCAT, EOMI with no erythema, swelling or discharge. Pupils 4 mm PERRL. Normal visual acuity bilaterally No diplopia bilaterally No visual field cuts on confrontational testing bilaterally No nystagmus bilaterally Oropharyngeal mucus membranes moist, pink, no exudate Neck: Full ROM, supple, no rigidity Cardio: Regular rate and rhythm, heart rate in the 90s sitting still, feels subjectively lightheaded when she stands up but no syncope episode (see formal orthostatic vitals below). nl s1 s2 no m/r/g, extremities warm, dry, well perfused, non-edematous. 2+ bilateral radial pulses 2+ bilateral carotid pulses 2+ bilateral femoral pulses 2+ bilateral DP pulses Lungs: CTAB, no wheezes, rales, rhonchi, patient is hyperventilating on arrival to the ED but has no respiratory distress. Respiratory rate slows down as she calms down. 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 This includes no paresthesias on either side of the face bilaterally. Sensation is normal bilaterally Normal 5/5 strength and normal sensation in all four extremities. This includes no paresthesias or diminished sensation in any extremity bilaterally. Sensation is normal in all 4 extremities bilaterally DTRs are normal 2/4 and equal bilaterally Normal coordination in upper and lower extremities Normal gait, no ataxia No dysarthria No aphasia No facial droop No pronator drift Negative test of skew bilaterally NIHSS = 0. See full NIHSS below Psych: Nervous anxious hyperventilating tearful panic attack. Not responding to internal stimuli, not psychotic. No SI no HI no AH no VH. Frustrated but verbally consolable and redirectable. Forward-looking, genuinely wants to get better. Asks me during the exam "Am I having a panic attack?" DIAGNOSTIC RESULTS RADIOLOGY (Per Emergency Physician): Interpretation per the Radiologist below, if available at the time of this note: CT head wo IV contrast (Results Pending) CT chest angiogram w and/or wo IV contrast (Results Pending) LABS: Labs Reviewed CBC WITH AUTO DIFFERENTIAL COMPREHENSIVE METABOLIC PANEL HIGH SENSITIVITY TROPONIN, SERIAL BASELINE NT PRO BNP THYROID STIMULATING HORMONE FREE T4 HCG QUANTITATIVE BLOOD MAGNESIUM PHOSPHORUS All other labs were within normal range or not returned as of this dictation. EMERGENCY DEPARTMENT COURSE and DIFFERENTIAL DIAGNOSIS/MDM: Vitals: Vitals: 10/30/24 2250 10/30/24 2303 BP: (!) 136/93 123/88 Patient Position: Sitting Standing Pulse: 93 Resp: 18 Temp: 36.4 C (97.6 F) TempSrc: Temporal SpO2: 99% Weight: 72.1 kg (159 lb) Height: 1.702 m (5' 7") Medications LORazepam (Ativan) injection 1 mg (has no administration in time range) sodium chloride 0.9 % bolus 1,000 mL (has no administration in time range) SCREENINGS [place] Coma Scale Best Eye Response: Spontaneous Best Verbal Response: Oriented Best Motor Response: Follows commands Tanisha Coma Scale Score: 15 NIH Stroke Scale 1A. Level of Consciousness: Alert, Keenly Responsive 1B. Ask Month and Age: Both Questions Right 1C. Blink Eyes & Squeeze Hands: Performs Both Tasks 2. Best Gaze: Normal 3. Visual: No Visual Loss 4. Facial Palsy: Normal Symmetrical Movements 5A. Motor - Left Arm: No Drift 5B. Motor - Right Arm: No Drift 6A. Motor - Left Leg: No Drift 6B. Motor - Right Leg: No Drift 7. Limb Ataxia: Absent 8. Sensory Loss: Normal 9. Best Language: No Aphasia 10. Dysarthria: Normal 11. Extinction and Inattention: No Abnormality NIH Stroke Scale: 0 29-year-old female presents for recurrent palpitations and paresthesias and near syncope Patient has had a very extensive multispecialty multisystem workup over the past month, she recently saw medicine and cardiology and neurology and endocrinology and psychiatry. Psychiatry noted that her symptoms seem to somatic and associated with anxiety and this does Square with her physical examination. She has an NIHSS of 0, this is not consistent with a stroke, and symptoms of paresthesias in hands and arms and face were bilateral; strokes do not typically feature bilateral symptoms. Thereare no paresthesias or objective sensory deficits on examination. We get a repeat CT head to make absolutely certain that there is no underlying stroke or mass or bleed or other pathology present but this seems very unlikely given multiple negative sets of head imaging including negative brain MRI.Regarding the palpitations and the near syncope (palpitations appears to be the patient's primary symptom), cardiology is planning on getting a Holter monitor done and a tilt table test in case of postural orthostatic tachycardia syndrome/POTS, and given her symptoms this is certainly reasonable. She has no chest pain at this time, however we will get 2 troponin tests to make absolutely certain that there is no underlying ACS and we will keep patient on a continuous cardiac cath lab manager in case of dysrhythmia. She has a HEART score of zero, so she has 2 troponins with a delta of less than or equalto 2 her risk of major adverse coronary events in the next 6 weeks is less than 1.7%. Given the near syncope and palpitations and sudden onset nature of her symptoms we will get a CTA chest to rule out PE as well. I will give her Ativan for anxiety now. When workup is complete we will consult cardiology. Patient has no history of CHF, last hematocrit was 39.5%, EKG is normal, she is not short of breath and she has a blood pressure 123 systolic at triage, therefore if cardiology feels it is appropriate to discharge her, she would pass the Lipscomb syncope rules and be in the low risk group for serious outcome as regards the palpitations. I did consider the possibility of a thoracic aortic dissection although the patient has no chest pains and the seems unlikely. Even if she did have chest pain, she would have a [facility] CMT score of 0 IF the chest imaging is negative as anticipated, as she has no objective neurological deficits, the radial and femoral pulses are equal,, palpitations were maximal in onset, there is no ripping ortearing pain (there is no pain at all), there is no pain in the back of the abdomen, thus even without a negative D-dimer her odds of thoracic or dissection are less than 02/999 so no CTA chest is required to rule out dissection specifically. We will be getting a CTA chest regardless to rule out PE. Yes MEDICAL DECISION MAKING: I considered, but did not perform, additional testing such as head or chest CT angiogram, VQ scan, or echocardiogram, as well as admission or transfer to a higher level of care. I utilized an evidence-based risk rating tool (CMT) along with my training and experience to weigh the risk of discharge against the risks of further testing, imaging, or hospitalization. At this time, I estimate the risks of additional testing, imaging, or hospitalization (in the case of discharge) to be equal to or greater than the risk of discharge. [id number] SHARED DECISION MAKING: I discussed my risk assessment with the patient. The patient understands and consents to the risk of disposition/plan, as well as the risk of uncertainty in estimating outcomes. [id number] [facility] [employer] Physician consulted, as this is 7th visit for similar symptoms. [facility] [employer] physician agrees with plan of care and likely discharge if workup negative. PROCEDURES: Unless otherwise noted below, none Procedures EKG: I read and interpreted this EKG. My interpretation can be found in the [employer] EKG system. EKG shows NSR, normal axis, normal [place] QRS and QTC intervals, no STEMI, no SVT, no LVH. No dysrhythmia, no heart block. Previous EKG NSR. On formal orthostatic testing: sitting 136/93 HR 93 standing 123/88 HR 95 Formal orthostatic vital signs testing is negative. Metabolic panel shows no metabolic acidosis, good kidney function, glucose within normal limits. Sodium potassium calcium phosphorus magnesium all normal Aminotransferases unremarkable Alk phos unremarkable Normal white blood cell count Patient is not septic Not anemic Normal platelet count HST #1 is negative BNP is negative argues against CHF TSH is normal and free T4 is normal which argues against thyrotoxicosis/hyperthyroidism as cause ofsymptoms Not Patient is much more calm following IV Ativan. Heart rate is normal. Blood pressure is normal. Resting comfortably in bed. Awake alert talking to me, protecting airway. Proceeding with remainder of workup. CT head shows no acute intracranial abnormality. No hemorrhage. No significant white matter disease. No edema no ventriculomegaly. Interpreted by radiology and by me. HST #2 negative for a delta of 0. Patient has no chest pain. Risk of major adverse cardiac events in the next 6 weeks less than 1.7%. CTA chest shows no acute pulmonary embolism. Normal thoracic aortic arch and great vessels. No acute cardiopulmonary disease. Left posterior lateral breast lipoma. Interpreted by radiology and by me. Echocardiogram 10/28/2024 shows ejection fraction of 54%. No significant valvular abnormalities. Cardiology consulted as patient is planning to follow-up with them for extensive outpatient testing. Dr. Daniels responded and reviewed the case with us. He does not feel that any additional diagnostics are necessary at this time and he feels comfortable discharging the patient home with her previously scheduled plan for a Holter monitor and possibly a tilt table test as part of her outpatient diagnostic workup. We will not be making any changes in the patient's medication regimen this evening. She should continue taking her metoprolol as prescribed and follow-up with Dr. Corcoran of cardiology for the Holter monitor and possible tilt table test. She should also keep her pre-existing follow-up appointments with endocrinology and gynecology. She should also keep her pre-existing follow-up appointment with neurology for the EMG on 11/03/2024. If the patient develops palpitations lasting longer than 30 minutes, chest pain or shortness of breath or exercise intolerance or suffers a syncopal episode, or develops focal numbness or focal weakness in the arms or legs or slurred speech or aphasia or facial droop or altered mental status or feels helpless or hopeless or "overwhelmed" at home or has thoughts of hurting herself or others, then she should return to the ED immediately. Otherwise she should be stable for outpatient follow-up as above. Patient is hemodynamically stable with a heart rate of 67 bpm, normal sinus rhythm with no dysrhythmias or other symptoms at the time of discharge. Results of workup and plan of care discussed with patient. She indicated understanding. Strict return precautions and anticipatory guidance given. All questions answered to her satisfaction. Patient discharged home in improved condition. Disposition: Discharged CRITICAL CARE TIME FINAL IMPRESSION 1. Palpitations 2. Anxiety 3. Paresthesia 4. Pre-syncope DISPOSITION PATIENT REFERRED TO: Dr. Love Cardiology DISCHARGE MEDICATIONS: New Prescriptions No medications on file (Comment: Please note this report has been produced using speech recognition software and may contain errors related to that system including errors in grammar, punctuation, and spelling, as well as words and phrases that may be inappropriate. If there are any questions or concerns please feel freeto contact the dictating provider for clarification.) Jamal Almaguer MD (electronically signed) Emergency Medicine Provider [1] Past Medical History: Diagnosis Date Anxiety Asthma (HHS/HCC) 09/2016 Breast cyst, left 06/03/2021 Chronic sinusitis 12/2016 ENT eval per [facility] GERD (gastroesophageal reflux disease) 07/2016 EGD per [facility] Hypothyroid 2008 IBS (irritable bowel syndrome) 02/2016 constipation - Colonoscopy per [facility] Migraines Neck pain Palpitations [2] Past Surgical History: Procedure Laterality Date BREAST LUMPECTOMY 08/2024 COLONOSCOPY 02/2016 [facility] TONSILLECTOMY (HISTORICAL) 1999 UPPER GASTROINTESTINAL ENDOSCOPY 11/2016 [facility] [3] Family History Problem Relation Name Age of Onset Ovarian cancer Neg Hx Diabetes Mother 35.00 on insulin at > 50 Lung cancer Maternal Grandfather Diabetes Maternal Cousin Gayle Colon cancer Maternal Grandmother 80.00 No Known Problems Paternal Grandmother Thyroid cancer Maternal Cousin Gayle Pancreatic cancer Mother Breast cancer Neg Hx No Known Problems Paternal Grandfather Other ([id number]) Father Danya 54.00 MVA in 2011 No Known Problems Sister Prostate cancer Maternal Grandfather [4] Social History Socioeconomic History Marital status: Tobacco Use Smoking status: Never Smokeless tobacco: Former Quit date: 04/05/2016 Vaping Use Vaping status: Never Used Substance and Sexual Activity Alcohol use: Not Currently Drug use: No Comment: caffiene: none Sexual activity: Yes Social History Narrative to Emile (Cat) since 07/21. NS or drinker, no children. 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 Social Drivers of Health Financial Resource Strain: Low Risk (04/20/2021) Received from [facility] Overall Financial Resource Strain (CARDIA) Difficulty of Paying Living Expenses: Not hard at all Food Insecurity: No Food Insecurity (10/10/2024) Received from [facility] Hunger Vital Sign Worried About Running Out of Food in the Last Year: Never true Ran Out of Food in the Last Year: Never true Transportation Needs: No Transportation Needs (10/28/2024) PRAPARE - Transportation Lack of Transportation (Medical): No Lack of Transportation (Non-Medical): No Physical Activity: Sufficiently Active (04/20/2021) Received from [facility] Exercise Vital Sign Days of Exercise per Week: 5 days Minutes of Exercise per Session: 30 min Stress: No Stress Concern Present (04/20/2021) Received from [facility] [place] [employer] - Occupational Stress Questionnaire Feeling of Stress : Not at all Social Connections: Moderately Integrated (04/20/2021) Received from [facility] Social Connection and Isolation Panel [NHANES] Frequency of Communication with Friends and Family: More than three times a week Frequency of Social Gatherings with Friends and Family: Twice a week Attends Mosque Services: More than 4 times per year Active Member of Clubs or Organizations: No Attends Club or Organization Meetings: Never Marital Status: Housing Stability: Low Risk (10/28/2024) Housing Stability Vital Sign Unable to Pay for Housing in the Last Year: No Number of Times Moved in the Last Year: 0 Homeless in the Last Year: No aJmal Almaguer MD 10/31/24 0207 * Tejal No RN - 10/30/2024 10:42 PM EDT Pt to ED with facial numbness in her face that woke her out of her sleep. Heaviness to bilateral arms, feels like heart is racing. documented in this [facility]09[facility]2025 Emergency department Triage note* Tejal No RN - 10/30/2024 10:42 PM EDT Pt to ED with facial numbness in her face that woke her out of her sleep. Heaviness to bilateral arms, feels like heart is racing. [id number]* Jamla Almaguer MD - 10/30/2024 10:42 PM EDT Images from the original note were not included. EMERGENCY DEPARTMENT ENCOUNTER Pt Name: Dulce Maria Carty Birthdate 1995 Date of evaluation: 10/30/2024 ED Provider: Jamal Almaguer MD CHIEF COMPLAINT Chief Complaint Patient presents with Numbness Palpitations HISTORY OF PRESENT ILLNESS (Location/Symptom, Timing/Onset, Context/Setting, Quality, Duration, Modifying Factors, Severity) Note limiting factors. I wore appropriate PPE for the entirety of this encounter. HPI Dulce Maria Carty is a 29 y.o. who presents to the emergency department with multiple complaints Patient has been having intermittent episodes of palpitations and lightheadedness and near syncope for the past month or more. Patient has been seen in this emergency department 7 times in the last 30 days for similar issues. She was hospitalized on 10/28/2024 and an extensive workup was performed in which she saw medicine, cardiology, endocrinology, psychiatry. Cardiology is in the process of working her up for possible postural orthostatic tachycardia/POTS syndrome. There is a tilt table test planned but this has not happened yet. She is on metoprolol twice a day which she make sure to take at the same time every day. She had an MRI of her brain and her cervical spine on 10 October which were negative. She has an EMG appointment scheduled for 03 November. Thyroid nodules were discovered but patient is not on any thyroid replacement and radiology did not feel that any further diagnostics were necessary given the relatively small size. She was also seen by psychiatry who started her on gabapentin 300 mg for anxiety and Vistaril 25 mg for anxiety as needed; she has not been taking the Vistaril but she has been taking her gabapentin. She also has a history of IBS GERD anxiety thyroid nodules palpitations chronic daily headaches migraines asthma chronic tremors. Past surgical history of tonsillectomy and breast lumpectomy. Family history of diabetes and pancreatic cancer. No known cancer history herself. Does not smoke does not drink does not vape. Patient presents to the ED today for sudden onset palpitations anxiety and bilateral facial paresthesias and bilateral hand and arm paresthesias which awakened her from sleep at 2200. Last known normal was just before she went to sleep earlier this evening. Patient has no actual numbness or weakness in the arms or legs, she has been ambulatory on her own power. Sometimes when she goes from supineto sitting up she feels lightheaded like she is going to pass out but she has not actually passed out. She has no chest pain but she does endorse the palpitations, she has no shortness of breath she has no abdominal pain or vomiting or diarrhea today. No dysuria urgency or frequency today. She is af ebrile, she is normotensive at 123/88, resting heart rate of 93 bpm. She is hyperventilating and anxious and nervous but she is verbally consolable and redirectable. No SI no HI no AH no VH. 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 Limitations to history: None Outside historians: Extensive review of previous records from recent hospital stay REVIEW OF SYSTEMS Review of Systems Pertinent positives and negatives as per HPI PAST MEDICAL HISTORY Medical History[1] SURGICAL HISTORY Surgical History[2] CURRENT MEDICATIONS Previous Medications GABAPENTIN (NEURONTIN) 300 MG CAPSULE Take 1 capsule (300 mg) by mouth 2 times daily as needed (anxiety, 1st line). METOPROLOL SUCCINATE XL (TOPROL-XL) 25 MG 24 HR TABLET 0.5 tablets Nightly. ONDANSETRON ODT (ZOFRAN-ODT) 4 MG DISINTEGRATING TABLET Take 1 tablet (4 mg) by mouth every 8 hoursas needed for nausea or vomiting for up to 7 days. MV-MIN-FE FUM-FA-DHA ( 1 PO) Take by mouth. PROBIOTIC PRODUCT (PROBIOTIC DAILY PO) Take by mouth. SERTRALINE (ZOLOFT) 25 MG TABLET Take 25 mg by mouth daily. ALLERGIES Nitrofurantoin, Alprazolam, and Quetiapine FAMILY HISTORY Family History[3] SOCIAL HISTORY Social History[4] PHYSICAL EXAM ED Triage Vitals Temp Pulse Resp BP -- -- -- -- SpO2 Temp src Heart Rate Source Patient Position -- -- -- -- BP Location FiO2 (%) -- -- Physical Exam General: WDWN adult in emotional distress. Has her face and her hands and is constantly shifting position in bed and tearful. Verbally consolable and redirectable. HENT: Head NCAT, EOMI with no erythema, swelling or discharge. Pupils 4 mm PERRL. Normal visual acuity bilaterally No diplopia bilaterally No visual field cuts on confrontational testing bilaterally No nystagmus bilaterally Oropharyngeal mucus membranes moist, pink, no exudate Neck: Full ROM, supple, no rigidity Cardio: Regular rate and rhythm, heart rate in the 90s sitting still, feels subjectively lightheaded when she stands up but no syncope episode (see formal orthostatic vitals below). nl s1 s2 no m/r/g, extremities warm, dry, well perfused, non-edematous. 2+ bilateral radial pulses 2+ bilateral carotid pulses 2+ bilateral femoral pulses 2+ bilateral DP pulses Lungs: CTAB, no wheezes, rales, rhonchi, patient is hyperventilating on arrival to the ED but has no respiratory distress. Respiratory rate slows down as she calms down. 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 This includes no paresthesias on either side of the face bilaterally. Sensation is normal bilaterally Normal 5/5 strength and normal sensation in all four extremities. This includes no paresthesias or diminished sensation in any extremity bilaterally. Sensation is normal in all 4 extremities bilaterally DTRs are normal 2/4 and equal bilaterally Normal coordination in upper and lower extremities Normal gait, no ataxia No dysarthria No aphasia No facial droop No pronator drift Negative test of skew bilaterally NIHSS = 0. See full NIHSS below Psych: Nervous anxious hyperventilating tearful panic attack. Not responding to internal stimuli, not psychotic. No SI no HI no AH no VH. Frustrated but verbally consolable and redirectable. Forward-looking, genuinely wants to get better. Asks me during the exam "Am I having a panic attack?" DIAGNOSTIC RESULTS RADIOLOGY (Per Emergency Physician): Interpretation per the Radiologist below, if available at the time of this note: CT head wo IV contrast (Results Pending) CT chest angiogram w and/or wo IV contrast (Results Pending) LABS: Labs Reviewed CBC WITH AUTO DIFFERENTIAL COMPREHENSIVE METABOLIC PANEL HIGH SENSITIVITY TROPONIN, SERIAL BASELINE NT PRO BNP THYROID STIMULATING HORMONE FREE T4 HCG QUANTITATIVE BLOOD MAGNESIUM PHOSPHORUS All other labs were within normal range or not returned as of this dictation. EMERGENCY DEPARTMENT COURSE and DIFFERENTIAL DIAGNOSIS/MDM: Vitals: Vitals: 10/30/24 2250 10/30/24 2303 BP: (!) 136/93 123/88 Patient Position: Sitting Standing Pulse: 93 Resp: 18 Temp: 36.4 C (97.6 F) TempSrc: Temporal SpO2: 99% Weight: 72.1 kg (159 lb) Height: 1.702 m (5' 7") Medications LORazepam (Ativan) injection 1 mg (has no administration in time range) sodium chloride 0.9 % bolus 1,000 mL (has no administration in time range) SCREENINGS Tanisha Coma Scale Best Eye Response: Spontaneous Best Verbal Response: Oriented Best Motor Response: Follows commands [place] Coma Scale Score: 15 NIH Stroke Scale 1A. Level of Consciousness: Alert, Keenly Responsive 1B. Ask Month and Age: Both Questions Right 1C. Blink Eyes & Squeeze Hands: Performs Both Tasks 2. Best Gaze: Normal 3. Visual: No Visual Loss 4. Facial Palsy: Normal Symmetrical Movements 5A. Motor - Left Arm: No Drift 5B. Motor - Right Arm: No Drift 6A. Motor - Left Leg: No Drift 6B. Motor - Right Leg: No Drift 7. Limb Ataxia: Absent 8. Sensory Loss: Normal 9. Best Language: No Aphasia 10. Dysarthria: Normal 11. Extinction and Inattention: No Abnormality NIH Stroke Scale: 0 29-year-old female presents for recurrent palpitations and paresthesias and near syncope Patient has had a very extensive multispecialty multisystem workup over the past month, she recently saw medicine and cardiology and neurology and endocrinology and psychiatry. Psychiatry noted that her symptoms seem to somatic and associated with anxiety and this does Square with her physical examination. She has an NIHSS of 0, this is not consistent with a stroke, and symptoms of paresthesias in hands and arms and face were bilateral; strokes do not typically feature bilateral symptoms. Thereare no paresthesias or objective sensory deficits on examination. We get a repeat CT head to make absolutely certain that there is no underlying stroke or mass or bleed or other pathology present but this seems very unlikely given multiple negative sets of head imaging including negative brain MRI.Regarding the palpitations and the near syncope (palpitations appears to be the patient's primary symptom), cardiology is planning on getting a Holter monitor done and a tilt table test in case of postural orthostatic tachycardia syndrome/POTS, and given her symptoms this is certainly reasonable. She has no chest pain at this time, however we will get 2 troponin tests to make absolutely certain that there is no underlying ACS and we will keep patient on a continuous cardiac cath lab manager in case of dysrhythmia. She has a HEART score of zero, so she has 2 troponins with a delta of less than or equalto 2 her risk of major adverse coronary events in the next 6 weeks is less than 1.7%. Given the near syncope and palpitations and sudden onset nature of her symptoms we will get a CTA chest to rule out PE as well. I will give her Ativan for anxiety now. When workup is complete we will consult cardiology. Patient has no history of CHF, last hematocrit was 39.5%, EKG is normal, she is not short of breath and she has a blood pressure 123 systolic at triage, therefore if cardiology feels it is appropriate to discharge her, she would pass the Lipscomb syncope rules and be in the low risk group for serious outcome as regards the palpitations. I did consider the possibility of a thoracic aortic dissection although the patient has no chest pains and the seems unlikely. Even if she did have chest pain, she would have a [facility] TADS CMT score of 0 IF the chest imaging is negative as anticipated, as she has no objective neurological deficits, the radial and femoral pulses are equal,, palpitations were maximal in onset, there is no ripping ortearing pain (there is no pain at all), there is no pain in the back of the abdomen, thus even without a negative D-dimer her odds of thoracic or dissection are less than 02/999 so no CTA chest is required to rule out dissection specifically. We will be getting a CTA chest regardless to rule out PE. Yes MEDICAL DECISION MAKING: I considered, but did not perform, additional testing such as head or chest CT angiogram, VQ scan, or echocardiogram, as well as admission or transfer to a higher level of care. I utilized an evidence-based risk rating tool (CMT) along with my training and experience to weigh the risk of discharge against the risks of further testing, imaging, or hospitalization. At this time, I estimate the risks of additional testing, imaging, or hospitalization (in the case of discharge) to be equal to or greater than the risk of discharge. [id number] SHARED DECISION MAKING: I discussed my risk assessment with the patient. The patient understands and consents to the risk of disposition/plan, as well as the risk of uncertainty in estimating outcomes. [id number] [facility] [employer] Physician consulted, as this is 7th visit for similar symptoms. [facility] [employer] physician agrees with plan of care and likely discharge if workup negative. PROCEDURES: Unless otherwise noted below, none Procedures EKG: I read and interpreted this EKG. My interpretation can be found in the [employer] EKG system. EKG shows NSR, normal axis, normal [place] QRS and QTC intervals, no STEMI, no SVT, no LVH. No dysrhythmia, no heart block. Previous EKG NSR. On formal orthostatic testing: sitting 136/93 HR 93 standing 123/88 HR 95 Formal orthostatic vital signs testing is negative. Metabolic panel shows no metabolic acidosis, good kidney function, glucose within normal limits. Sodium potassium calcium phosphorus magnesium all normal Aminotransferases unremarkable Alk phos unremarkable Normal white blood cell count Patient is not septic Not anemic Normal platelet count HST #1 is negative BNP is negative argues against CHF TSH is normal and free T4 is normal which argues against thyrotoxicosis/hyperthyroidism as cause ofsymptoms Not Patient is much more calm following IV Ativan. Heart rate is normal. Blood pressure is normal. Resting comfortably in bed. Awake alert talking to me, protecting airway. Proceeding with remainder of workup. CT head shows no acute intracranial abnormality. No hemorrhage. No significant white matter disease. No edema no ventriculomegaly. Interpreted by radiology and by me. HST #2 negative for a delta of 0. Patient has no chest pain. Risk of major adverse cardiac events in the next 6 weeks less than 1.7%. CTA chest shows no acute pulmonary embolism. Normal thoracic aortic arch and great vessels. No acute cardiopulmonary disease. Left posterior lateral breast lipoma. Interpreted by radiology and by me. Echocardiogram 10/28/2024 shows ejection fraction of 54%. No significant valvular abnormalities. Cardiology consulted as patient is planning to follow-up with them for extensive outpatient testing. Dr. Daniels responded and reviewed the case with us. He does not feel that any additional diagnostics are necessary at this time and he feels comfortable discharging the patient home with her previously scheduled plan for a Holter monitor and possibly a tilt table test as part of her outpatient diagnostic workup. We will not be making any changes in the patient's medication regimen this evening. She should continue taking her metoprolol as prescribed and follow-up with Dr. Corcoran of cardiology for the Holter monitor and possible tilt table test. She should also keep her pre-existing follow-up appointments with endocrinology and gynecology. She should also keep her pre-existing follow-up appointment with neurology for the EMG on 11/03/2024. If the patient develops palpitations lasting longer than 30 minutes, chest pain or shortness of breath or exercise intolerance or suffers a syncopal episode, or develops focal numbness or focal weakness in the arms or legs or slurred speech or aphasia or facial droop or altered mental status or feels helpless or hopeless or "overwhelmed" at home or has thoughts of hurting herself or others, then she should return to the ED immediately. Otherwise she should be stable for outpatient follow-up as above. Patient is hemodynamically stable with a heart rate of 67 bpm, normal sinus rhythm with no dysrhythmias or other symptoms at the time of discharge. Results of workup and plan of care discussed with patient. She indicated understanding. Strict return precautions and anticipatory guidance given. All questions answered to her satisfaction. Patient discharged home in improved condition. Disposition: Discharged CRITICAL CARE TIME FINAL IMPRESSION 1. Palpitations 2. Anxiety 3. Paresthesia 4. Pre-syncope DISPOSITION PATIENT REFERRED TO: Dr. Love Cardiology DISCHARGE MEDICATIONS: New Prescriptions No medications on file (Comment: Please note this report has been produced using speech recognition software and may contain errors related to that system including errors in grammar, punctuation, and spelling, as well as words and phrases that may be inappropriate. If there are any questions or concerns please feel freeto contact the dictating provider for clarification.) Jamal Almaguer MD (electronically signed) Emergency Medicine Provider [1] Past Medical History: Diagnosis Date Anxiety Asthma (HHS/HCC) 09/2016 Breast cyst, left 06/03/2021 Chronic sinusitis 12/2016 ENT eval [facility] GERD (gastroesophageal reflux disease) 07/2016 EGD per [facility] Hypothyroid 2008 IBS (irritable bowel syndrome) 02/2016 constipation - Colonoscopy per [facility] Migraines Neck pain Palpitations [2] Past Surgical History: Procedure Laterality Date BREAST LUMPECTOMY 08/2024 COLONOSCOPY 02/2016 [facility] TONSILLECTOMY (HISTORICAL) 1999 UPPER GASTROINTESTINAL ENDOSCOPY 11/2016 [facility] [3] Family History Problem Relation Name Age of Onset Ovarian cancer Neg Hx Diabetes Mother 35.00 on insulin at > 50 Lung cancer Maternal Grandfather Diabetes Maternal Cousin Gayle Colon cancer Maternal Grandmother 80.00 No Known Problems Paternal Grandmother Thyroid cancer Maternal Cousin Gayle Pancreatic cancer Mother Breast cancer Neg Hx No Known Problems Paternal Grandfather Other (80650) Father Danya 54.00 MVA in 2011 No Known Problems Sister Prostate cancer Maternal Grandfather [4] Social History Socioeconomic History Marital status: Tobacco Use Smoking status: Never Smokeless tobacco: Former Quit date: 04/05/2016 Vaping Use Vaping status: Never Used Substance and Sexual Activity Alcohol use: Not Currently Drug use: No Comment: caffiene: none Sexual activity: Yes Social History Narrative to Emile Nielson) since 07/21. NS or drinker, no children. 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 Social Drivers of Health Financial Resource Strain: Low Risk (04/20/2021) Received from [facility] Overall Financial Resource Strain (CARDIA) Difficulty of Paying Living Expenses: Not hard at all Food Insecurity: No Food Insecurity (10/10/2024) Received from [facility] Hunger Vital Sign Worried About Running Out of Food in the Last Year: Never true Ran Out of Food in the Last Year: Never true Transportation Needs: No Transportation Needs (10/28/2024) PRAPARE - Transportation Lack of Transportation (Medical): No Lack of Transportation (Non-Medical): No Physical Activity: Sufficiently Active (04/20/2021) Received from [facility] Exercise Vital Sign Days of Exercise per Week: 5 days Minutes of Exercise per Session: 30 min Stress: No Stress Concern Present (04/20/2021) Received from [facility] [place] [employer] - Occupational Stress Questionnaire Feeling of Stress : Not at all Social Connections: Moderately Integrated (04/20/2021) Received from [facility] Social Connection and Isolation Panel [NHANES] Frequency of Communication with Friends and Family: More than three times a week Frequency of Social Gatherings with Friends and Family: Twice a week Attends Mosque Services: More than 4 times per year Active Member of Clubs or Organizations: No Attends Club or Organization Meetings: Never Marital Status: Housing Stability: Low Risk (10/28/2024) Housing Stability Vital Sign Unable to Pay for Housing in the Last Year: No Number of Times Moved in the Last Year: 0 Homeless in the Last Year: No Jamal Almaguer MD 10/31/24 0207 [id number] Telephone encounter Note* Telephone Encounter - WILLARD Valero CNP - 10/30/2024 10:55 AM EDT Patient can keep scheduled follow up appointment on 11/10/2024. [facility] [id number] Miscellaneous Notes* Telephone Encounter - WILLARD Valero CNP - 10/30/2024 10:55 AM EDT Patient can keep scheduled follow up appointment on 11/10/2024. * Telephone Encounter - Suzanne Avina - 10/30/2024 10:01 AM EDT Name of Caller: May Contact Reason for Appointment: Patient called in to schedule a sooner appointment as advised for a sooner hospital follow up. Patient has been scheduled with soonest availability for 11/10. Please call patient if sooner appointment is needed. Office Name: [facility] documented in this encounterSOhioHealth Van Wert [id number] Telephone encounter Note* Telephone Encounter - Leigh Medeiros RN - 10/30/2024 10:51 AM EDT Called patient she confirms that she is also seeing [facility] and an Event Monitor is being mailed to her home said that she has seen [facility] because she could be seen sooner but [facility] encouraged her to keep OV with Dr Corcoran because he is EP Informed her that Dr Corcoran will call her [facility] [id number] Miscellaneous Notes* Telephone Encounter - Leigh Medeiros RN - 10/30/2024 10:51 AM EDT Called patient she confirms that she is also seeing [facility] and an Event Monitor is being mailed to her home said that she has seen [facility] because she could be seen sooner but [facility] encouraged her to keep OV with Dr Corcoran because he is EP Informed her that Dr Corcoran will call her * Telephone Encounter - Leigh Phillip - 10/30/2024 10:08 AM EDT Pt lvm requesting a sooner appt w [facility] due to recent ER visits. Pt is scheduled for fu on 11/11/24. * Telephone Encounter - Leigh Medeiros RN - 10/28/2024 8:27 AM EDT Left a message for patient that Dr Corcoran reviewed and she can take Zoloft he will follow her EKG will see her at OV 11-11-24 * Telephone Encounter - WILLARD Do CNP - 10/26/2024 10:28 AM EDT Reviewed note in chart and called patient. Advised concern for this medication and possibility of QT prolongation. EKG in ER did not show evidence of QT prolongation. She has not been seen in our office since February 2023 but has upcoming appointment with Dr. Corcoran in a few weeks. Advised her I will update Dr. Corcoran but that we will be unlikely to provide recommendations until we see her in office. Patient states that she called answering service and hopes to talk to her PCP office regarding this medication and was surprised to find out our office was contacted. I reached out to answering services to see if they can also reach out to her PCP office. * Telephone Encounter - Inga Aguilar RN - 10/26/2024 10:04 AM EDT S: Patient spoke with [facility] nurse regarding ER after visit question B: Onset of symptoms/concern 10/25/2024 A: Patient went to [facility] ED on 10/26/2024 for chest pain. Patient had a HR of 165, left arm pain, heart palpitations, and chest tightness, nauseated. Patient is to follow up with her volumetric weigher thisweek. Patient calling today as she forgot to let the ER know that she started taking sertraline (Zoloft) 25 mg tablets yesterday morning went to ER in the evening. Patient requests to know if she should continue taking the Zoloft. R: Nurse reached out to oncall provider via secure chat. Per Holly BARRON, "I called pt - she states she wanted to talk to PCP office, are you answering service for them as well and cannotify them to call pt too?" Nurse called patient back to discuss. Patient states she also has another volumetric weigher at the [facility] she is seeing. PCP ordered the Zoloft. Nurse reached out to the PCP via secure chat. Per Dr. Rome, "I do suggest taking it. Considering how the last few weeks have been, it could've been a coincidence but she needs to try and take it a few days in a row to see if this is going to persist or not. If it does then she can stop the medicine but try to give it a few days." Nurse reviewed Dr. Rome's directives with patient, patient verbalized understanding. Reason for Disposition [1] Caller has URGENT medicine question about med that PCP or specialist prescribed AND [2] triagerunable to answer question Protocols used: Medication Question [id number] documented in this [facility]09-25-2025 Telephone encounter Note* Telephone Encounter - Leigh Phillip - 10/30/2024 10:08 AM EDT Pt lvm requesting a sooner appt w [facility] due to recent ER visits. Pt is scheduled for fu on 11/11/24. Use It [id number] Telephone encounter Note* Telephone Encounter - Suzanne Avina - 10/30/2024 10:01 AM EDT Name of Caller: May Contact Reason for Appointment: Patient called in to schedule a sooner appointment as advised for a sooner hospital follow up. Patient has been scheduled with soonest availability for 11/10. Please call patient if sooner appointment is needed. Office Name: [facility] Use It [id number] Telephone encounter Note* Telephone Encounter - Leatha Marie RN - 10/30/2024 6:42 AM EDT S: patient calling [facility] d/t numbness to arms, elevated heart rate B: Symptoms ongoing and worsening Seen in er on 10/26 , 10/27 and 10/28 was admitted Discharged from inpatient on 10/29 A: states when she woke up has numbness in both arms and into back. Skin feels painful and tender to touch Was seen admitted hospital for elevated heart rate and left arm was numb. States that numbness to both arms are progressively getting worse. The numbness starts at base of skull travels down into back and down both arms. States that it is worse when she first wakes up then improves. Still has numbness now. Able to pick things up without dropping them. States symptoms feel like the are worsening since being discharged from the hospital. Asking if she should go back to er or be seen in office. Current heart rate is 118 states still has some shortness of breath. Patient is talking in completesentences without distress. R: using client service consultant finder sent message to Dr. Rome- If she can come by 750 I'll see her. Returned call to patient and advised of recommendation. Patient agreeable states she can be there by 7:50. Patient verbalized understanding. Use It [id number] Miscellaneous Notes* Telephone Encounter - Leatha Marie RN - 10/30/2024 6:42 AM EDT S: patient calling [facility] d/t numbness to arms, elevated heart rate B: Symptoms ongoing and worsening Seen in er on 10/26 , 10/27 and 10/28 was admitted Discharged from inpatient on 10/29 A: states when she woke up has numbness in both arms and into back. Skin feels painful and tender to touch Was seen admitted hospital for elevated heart rate and left arm was numb. States that numbness to both arms are progressively getting worse. The numbness starts at base of skull travels down into back and down both arms. States that it is worse when she first wakes up then improves. Still has numbness now. Able to pick things up without dropping them. States symptoms feel like the are worsening since being discharged from the hospital. Asking if she should go back to er or be seen in office. Current heart rate is 118 states still has some shortness of breath. Patient is talking in completesentences without distress. R: using client service consultant finder sent message to Dr. Rome- If she can come by 750 I'll see her. Returned call to patient and advised of recommendation. Patient agreeable states she can be there by 7:50. Patient verbalized understanding. * Telephone Encounter - Radha Kothari RN - 10/29/2024 11:26 PM EDT S: Patient spoke with [facility] nurse regarding numbness to both arms, tremors B: Onset of symptoms/concern 2 weeks [facility] ED 10/26 [facility] ED 10/27, 10/28 A: Patient states woke up from a nap this evening and both arms were numb, neck stiffness and all over body tremors. Numbness resolved. Relates to feeling nauseous and some shortness of breath earlier today with decreased appetite. Has been drinking x3- 32 oz bottles of water and urinating without any issues. C/o muscle cramps. Denies chest pain. States HR is currently 100. R: Message to provider, unable to schedule appointments for this office- please advise patient Advised to increased fluids, eating food rich in potassium and calcium. Patient understands care advice.Instructed to call back with new or worsening symptoms. Reason for Disposition [1] Numbness or tingling in one or both feet AND [2] is a chronic symptom (recurrent or ongoing ANDpresent > 4 weeks) Protocols used: Neurologic [id number] documented in this encounterSOhioHealth Van Wert [id number] Telephone encounter Note* Telephone Encounter - Radha Kothari RN - 10/29/2024 11:26 PM EDT S: Patient spoke with [facility] nurse regarding numbness to both arms, tremors B: Onset of symptoms/concern 2 weeks [facility] ED 10/26 [facility] ED 10/27, 10/28 A: Patient states woke up from a nap this evening and both arms were numb, neck stiffness and all over body tremors. Numbness resolved. Relates to feeling nauseous and some shortness of breath earlier today with decreased appetite. Has been drinking x3- 32 oz bottles of water and urinating without any issues. C/o muscle cramps. Denies chest pain. States HR is currently 100. R: Message to provider, unable to schedule appointments for this office- please advise patient Advised to increased fluids, eating food rich in potassium and calcium. Patient understands care advice.Instructed to call back with new or worsening symptoms. Reason for Disposition [1] Numbness or tingling in one or both feet AND [2] is a chronic symptom (recurrent or ongoing ANDpresent > 4 weeks) Protocols used: Neurologic [id number]-[id number] [facility] [id number] Nurse Note* Gayatri Poe RN - 10/29/2024 4:49 PM EDT Discharge orders received, reviewed home going instructions, follow up appointments and medications. Reinforced need to turkey picker Rx at pharmacy. Hep lock removed and occlusive dressing. All personal belongings gathered and accounted for. Pt verbalized understanding of all information and instructions. Pt chose to ambulate with staff to awaiting family vehicle. [facility] [id number] Nurse Note* Gayatri Poe RN - 10/29/2024 4:49 PM EDT Discharge orders received, reviewed home going instructions, follow up appointments and medications. Reinforced need to turkey picker Rx at pharmacy. Hep lock removed and occlusive dressing. All personal belongings gathered and accounted for. Pt verbalized understanding of all information and instructions. Pt chose to ambulate with staff to awaiting family vehicle. * Gayatri Poe RN - 10/28/2024 3:15 PM EDT Pt arrived from [facility] ER via ambulance. Pt ambulated to bed without assist. PM applied; NSR, VSS. Oriented to CDU routine, use of call light, TV. Reviewed current complaint and symptoms, PMH and current medications. Epic/navigator updated and completed. Updated H SURESH Brown that pt had arrived;awaiting admission orders. Call light in reach. documented in this [facility]09-24-2025 Hospital Discharge instructions* Discharge Instr - Activity* Albertina Mohan - 10/29/2024 2:25 PM EDT As tolerated * Discharge Instr - Diet* Albertina Mohan - 10/29/2024 2:26 PM EDT As tolerated documented in this [facility]09-24-2025 [facility] 10-29-2024 Hospital course Narrative* WILLARD Hoffman CNP - 10/29/2024 1:19 PM EDT .. Hospitalist Discharge Summary May Bautista : 1995 Admit date: 10/28/2024 Discharge date: 10/29/2024 Admitting Physician: Lawrence Hoffmann MD Primary Care Physician: Zachariah Rome DO Visit Status: observation Code Status: Full Code BRIEF HOSPITAL COURSE: As stated by the ED provider at [facility], "Dulce Maria Carty is a 29 y.o. who presents to the emergencydepartment with chief complaint of rapid heart rate and chest pain. The patient has been having intermittent chest pain for the past several days. She says her heart rate has gone up to 170. She saidit went up and high this morning. She was able to check her heart rate with a home pulse oximeter. She has pressure and tightness in her chest. She says her jaw hurts. She has felt lightheaded and short of breath with this. She gets numbness and tingling in her fingers. She did see volumetric weigher yesterday. She has an echo and another heart test scheduled coming up soon. She is on metoprolol. Patient said that this woke her up from sleep this morning. She is very concerned because she keeps having these recurrent symptoms and is not sure why. She denies any fevers or chills. No new headaches orvisual complaints. No cough or URI symptoms. She has some upper abdominal discomfort though no vomiting or diarrhea. No urinary complaints. She denies being . No bruising or swelling. No new leg pain. No localizing numbness or weakness. No other associated complaints. She denies smoke, alcohol drug use. She denies any first- degree relatives with heart problems". Initial ED workup: Patient was given nitroglycerin, 1 liter bolus of fluids, and 324 mg ASA Labs: high sensitivity troponins x 2, bilirubin 1.2, no leukocytosis, stable hemoglobin, TSH normal, urinalysis ketones otherwise unremarkable Tests: ECG SR May is a 29 y.o. female arrives from [facility] ED to the CDU with past medical history of anxiety, asthma, chronic sinusitis, GERD, hypothyroid, IBS, migraines, anterior neck pain, and palpitationswho presents with chief complaint of chest pain, tachycardia, and generally feeling unwell. Patientstates at the end of September is when chest burning started. The burning radiates through bilateral shoulders, down both arms into her hands and fingers. She also endorses intermittent jaw pain and twitching. She states she has been having general body aches, and stiffness. She states she does co-sleep with her son and may not have the best sleep posture. She described her skin as feeling "sunburnt". She said last week her arms, and jaw feel like they have tremors. She has been noticing bilateralleg jerking when she is falling asleep at night. This past Sunday, she woke up in the middle of thenight feeling unwell with her heart was racing. She noticed her heart rate was in the 170s at that time, and she proceeded to the [facility] ED. Patient is concerned she may have a thyroid nodule due to anterior neck pain. Patient is currently her one your old son, and this is her second baby. Patient reports having a left breast lumpectomy on August 19, and then in September had fluid drained from the left breast. She came in today because her overall symptoms feel like they are worse lala, and she keeps feeling panicked like she is not going to make it. Her and both sons are at bedside. Her also states that she has woke up for the last 4 nights with her heart racing, and he said she was panicking. Thyroid ultrasound: "Two tiny right lobe nodules and a 6 mm mid left lobe TI RADS 2 nodule identified. No further follow-up or FNA suggested". 10/29 Patient seen and evaluated sitting in her bed. Patient had negative orthostatic vital signs last night. Patient continues to complain of feeling "unwell". She states she woke up a couple times throughout the night feeling like her heart was racing, and felt numbness in her arms. She states her skinfeels uncomfortable. Patient does admit when she wakes up feeling like her heart is racing, she goes to the worst case scenario. She complained of nausea and pain in her arms this morning, and was medicated with Zofran and Tylenol. Patient feels the Zofran helped with her nausea. Patient was concerned with her fasting glucose of 68 on her morning labs. Patient encouraged to eat and drink throughou t the day. Educated on symptoms of hypoglycemia. Patients has been off work for a couple ofweeks due to patients ongoing symptoms. stated that patient kept thinking she was going to pass away yesterday on the anniversary of her father in law who from pancreatic cancer last year. Patient does mention her parents were before she was born, but there was a custody graves when she was a teenager. Patient does remember being on a medication around this time for either depression or anxiety but does not recall what she was on. Patient is agreeable to see psychiatry. She does understand that she may have an underlying dysautonomia condition and anxiety/ panic can exacerbate her symptoms. Patient is being worked up for POTS with her volumetric weigher outpatient. Neurology consult: "The patient has already been seen for above issues by Dr. Cortez, the outpatient neurologist at [facility] and has undergone MRI of the brain and cervical spine studies on October 10, 2024 and has follow-up scheduled with him for this purpose and her paresthesias related complaints. The patient's MRI studies of the brain with and without contrast and cervical spine with and without contrast were reviewed by me and, are noted as unremarkable. The studies were performed in [facility] on October 10, 2024. The patient's EEG is also normal. This study was performed on October 10, [address] [facility]. The patient's EMG and nerve conduction study as well as vestibular testing are pending and will probably need to be rescheduled since, apparently the patient was unable to make these appointments on October 23, 2024. The patient is already being worked up for POTS by outside physician as well. After detailed discussion on [employer] chat, it was decided that the patient should follow-up with outpatient neurology for neurological evaluation and recommendations. There are no active neurological issues at this time to be addressed for this patient, by inpatientneurology service that will be relevant to this admission. I have not seen this patient but, if there are any active neurological issues, please feel free to contact neurology service and place neurology consult to our service. No active neurological recommendations at this time. Follow-up with per appointment at his office". Endocrinology consult: "Thyroid function within normal limits, no need for antithyroid drugs or levothyroxine. Thyroid nodules not the etiology of her symptoms. Follow-up with her primary care physician, no need for Endo follow-up. Will sign off. Recall if needed". Psychiatry consult: "Pt does NOT require inpatient psychiatric admission. Defer to primary team forneed for green slip/sitter. Medications: Start gabapentin 300 mg PRN for anxiety, Vistaril 25 mg PRN for anxiety - gabapentin may be effective and less likely to affect , encouraged patient to try before discharge if able. Labs: none. Studies: none. Delirium precautions: Avoid sedating/anticholinergic medications, encourage sleep hygiene, minimize barriers to nutrition, optimize sensory input and access to assistive devices (dentures, glasses, etc) where indicated, encourage time up inchair as able, D/c Smyth, restraints, IV lines, as able and reserve agitation PRNs for instances where patient is danger to self/others/treatment. Recommendations shared with primary team. Follow up:Will follow". Patient given prescription for Zofran for nausea and Gabapentin 2 months PRN per psych recommendations for anxiety She is to follow up with endocrinology, neurology, PCP, OFFICE SUPPORT ASSISTANT, cardiology outpatient for holter monitor, suggested to discuss tilt table test and she may have dysautonomic syndrome/POTS -per psychiatrynote. Patient with numerous presentations for tachycardia and other somatic complaints that may be possibly explained by anxiety. This presentation is not clearly attributable to a psychiatric disorder alone and she would benefit from continued outpatient workup for dysautonomia. No acute psychiatric symptoms meriting hospitalization. Patient ambivalent about restarting SSRI. Will add PRN gabapentin for anxiety as alternative to hydroxyzine given ongoing . [facility] she [facility]. OK for DC home from a psychiatry standpoint, though we will follow if she remains hospitalized. Acute, acute on chronic, unstable/uncontrolled chronic problems/diagnoses: Chest pain Tachycardia Numbness in bilateral hands Anxiety Palpitations Anterior neck pain Thyroid nodules Heterogeneous thyroid gland Panic attack Depression Hypoglycemia Hypercholesterolemia Insomnia secondary to tachycardia Adjustment disorder with depression Stable chronic problems affecting care, new non-acute diagnoses: Asthma GERD Chronic sinusitis Migraines IBS History of self injury; leg cutting History of trauma Medical History[1] Procedures: no procedures Hospital Course: See discharge diagnoses list above and medication adjustments below in med rec.Thepatient is discharged in improved and stable condition. Consults: IP CONSULT TO ENDOCRINOLOGY IP CONSULT TO NEUROLOGY IP CONSULT TO PSYCHIATRY Discharge Instructions: Diet: Dietary Orders (From admission, onward) Start Ordered 10/28/24 1618 Adult diet Regular Diet effective now Question: Diet type Answer: Regular 10/28/24 1619 Activity: as tolerated Recommended Outpatient Tests: Disposition: Patient discharged in stable condition to Home. Greater than 31 minutes spent discharging the patient and coming up with patient discharge plan. Vitals: BP 116/81 (BP Location: Left arm, Patient Position: Lying) Pulse 100 Temp (!) 35.9 C (96.7 F) (Temporal) Resp 17 Ht 1.702 m (5' 7") Wt 72.6 kg (160 lb) LMP 10/05/2022 (Approximate) SpO2 97% BMI 25.06 kg/m Pulse Ox: SpO2 Av % Min: 97 % Max: 99 % Supplemental O2: room air Physical Exam Vitals and nursing note reviewed. Cardiovascular: Rate and Rhythm: Tachycardia present. Pulses: Radial pulses are 3+ on the right side and 3+ on the left side. Dorsalis pedis pulses are 3+ on the right side and 3+ on the left side. Heart sounds: Normal heart sounds. Pulmonary: Effort: Pulmonary effort is normal. Breath sounds: Normal breath sounds. Abdominal: General: Bowel sounds are normal. Palpations: Abdomen is soft. Musculoskeletal: General: Normal range of motion. Right lower leg: No edema. Left lower leg: No edema. Skin: General: Skin is warm and dry. Capillary Refill: Capillary refill takes less than 2 seconds. Neurological: General: No focal deficit present. Mental Status: She is alert and oriented to person, place, and time. Psychiatric: Attention and Perception: Attention normal. Mood and Affect: Mood is anxious and depressed. Speech: Speech normal. Behavior: Behavior is cooperative. Cognition and Memory: Cognition normal. Judgment: Judgment normal. LABS: Recent Labs 10/27/2422010/28/2475010/29/245 NA 140 141 140 K 3.4* 3.7 3.9 CL 106 106 107 CO2 21* 22 23 BUN 14 13 13 CREATININE 0.83 0.82 0.81 GLUCOSE 115* 95 68* CALCIUM 9.0 9.4 9.0 Recent Labs 10/27/2422010/28/24 0751 10/29/24 0415 WBC 6.0 5.7 5.9 RBC 4.83 5.00 4.92 HGB 13.9 14.3 14.0 HCT 40.8 41.5 41.6 MCV 84.5 83.0 84.6 MCH 28.8 28.6 28.5 [facility] 34.1 34.5 33.7 RDW 11.9 12.0 11.9 PLT 188 195 205 MPV 10.2 9.9 10.0 Discharge Medications: Medication List START taking these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 97% Weight: 158 lb 11.2 oz (72 kg) Height: Physical Exam Constitutional: Appearance: Normal appearance. HENT: Head: Normocephalic and atraumatic. Eyes: Extraocular Movements: Extraocular movements intact. Neck: Comments: Thyroid palpable, no palpable nodules. Cardiovascular: Rate and Rhythm: Normal rate and regular rhythm. Pulmonary: Effort: Pulmonary effort is normal. Breath sounds: Normal breath sounds. Abdominal: Palpations: Abdomen is soft. Musculoskeletal: Cervical back: Normal range of motion. Right lower leg: No edema. Left lower leg: No edema. Skin: General: Skin is warm. Neurological: General: No focal deficit present. Mental Status: She is alert and oriented to person, place, and time. Psychiatric: Mood and Affect: Mood normal. Behavior: Behavior normal. 24 hour intake/output:No intake or output data in the 24 hours ending 10/29/24 1038 Diet: Adult diet Regular Medications (as per EMR): HomeMeds: Current Outpatient Medications Medication Instructions metoprolol succinate XL (Toprol-XL) 25 MG 24 hr tablet 0.5 tablets, Nightly MV-Min-Fe Fum-FA-DHA ( 1 PO) Take by mouth. Probiotic Product (PROBIOTIC DAILY PO) Take by mouth. sertraline (ZOLOFT) 25 mg, Daily Scheduled Meds:Scheduled Meds[1] Continuous Infusions:Continuous Meds[2] PRN Meds:PRN Meds[3] Diagnostic Workup: I reviewed pertinent Laboratory results, Radiographic results, and Other Clinical Notes at the timeof today's encounter. Labs: No components found for: "LABA1C" No components found for: "EAG" Lab Results Component Value Date NA 140 10/29/2024 K 3.9 10/29/2024 CL 107 10/29/2024 CO2 23 10/29/2024 BUN 13 10/29/2024 CREATININE 0.81 10/29/2024 GLUCOSE 68 (L) 10/29/2024 CALCIUM 9.0 10/29/2024 Lab Results Component Value Date CHOL 240 (H) 10/29/2024 CHOL 229 (A) 04/07/2021 Lab Results Component Value Date TRIG 51 10/29/2024 TRIG 38 04/07/2021 Lab Results Component Value Date HDL 103 10/29/2024 HDL 127 (A) 04/07/2021 Lab Results Component Value Date LDLCALC 127 (H) 10/29/2024 No results found for: "VLDL" Lab Results Component Value Date CHOLHDLRATIO 2 10/29/2024 CHOLHDLRATIO 2 04/07/2021 No results found for: "[id number]" Lab Results Component Value Date TSH 1.22 10/28/2024 THYROIDAB <3.0 10/02/2022 Radiology reportsas per the Radiologist Radiology: ECG 12 lead Result Date: 10/29/2024 Sinus rhythm US thyroid Result Date: 10/28/2024 Patient Name: MACHELLE MAY : 1995 Exam Date/Time: 10/28/2024 17:33 Procedure: US THYROID Ordering Provider: BROWN HEATHER Reason For Exam: THYROID NODULE ULTRASOUND THYROID: Indication: Thyroid nodule. Examination: Ultrasonographicevaluation of the thyroid Comparison: CT chest 10/05/2024 FINDINGS: RIGHT LOBE: 1.4 x 1.6 x 4.8 cm LEFT LOBE: 0.9 x 1.5 x 5.2 cm ECHOGENICITY PATTERN: Slightly heterogeneous with tiny nodules THYROID ULTRASOUND : 1. Two tiny right lobe nodules and a 6 mm mid left lobe TI RADS 2 nodule identified. No further follow-up or FNA suggested. Report Dictated on Electronically Signed By: Francis Palacio MD Electronically Signed Date/Time: 10/28/2024 6:07 PM EDT ECG 12 lead Sinus rhythm EKG per my interpretation shows a normal sinus rhythm at a rate of 98 with a normal axis. There is no acute ST elevation or ST depression. Intervals are within normal limits otherwise. There were no significant changes compared to prior EKG on file. Electronically Signed On 10-28-2024 07:53:46 EDT by Bernabe Perales History/Other: Past Medical History: Medical History[4] Past Surgical History: Surgical History[5] Allergy(ies): Allergies[6] Family History: Family History[7] Social History: Social History[8] Portions of the information within this encounter were entered using an electronic dictation system. Best attempts were made to edit/proofread the information prior to note completion. Despite the review of information, some errors may remain. If there are questions related to the information contained within the note please contact the signing physician directly. Total time spent 45 minutes with the pt which involved coordination of care, medical evaluation, review of records, and/or counseling of the pt regarding his/her condition/disease state/prognosis on the date of this note. [1] metoprolol succinate XL, 12.5 mg, Oral, Nightly [2] [3] PRN medications: acetaminophen OR acetaminophen, hydrOXYzine pamoate, metoprolol, ondansetron ODT OR ondansetron, perflutren lipid microspheres, perflutren protein A microsphere (Optison)3 mL in sodium chloride (PF) 0.9 % 10 mL IV, polyethylene glycol (PEG) 3350 [4] Past Medical History: Diagnosis Date Anxiety Asthma 09/2016 Breast cyst, left 06/03/2021 Chronic sinusitis 12/2016 ENT eval per [facility] GERD (gastroesophageal reflux disease) 07/2016 EGD per [facility] Hypothyroid 2009 IBS (irritable bowel syndrome) 02/2016 constipation - Colonoscopy per [facility] Migraines Neck pain Palpitations [5] Past Surgical History: Procedure Laterality Date BREAST LUMPECTOMY 08/2024 COLONOSCOPY 02/2016 [facility] TONSILLECTOMY (HISTORICAL) 2000 UPPER GASTROINTESTINAL ENDOSCOPY 11/2016 [facility] [6] Allergies Allergen Reactions Nitrofurantoin Other reaction(s): difficulty breathing Alprazolam Unknown Quetiapine Other [7] Family History Problem Relation Name Age of Onset Ovarian cancer Neg Hx Diabetes Mother 35.00 on insulin at > 50 Lung cancer Maternal Grandfather Diabetes Maternal Cousin Gayle Colon cancer Maternal Grandmother 80.00 No Known Problems Paternal Grandmother Thyroid cancer Maternal Cousin Gayle Pancreatic cancer Mother Breast cancer Neg Hx No Known Problems Paternal Grandfather Other ([id number]) Father Danya 54.00 MVA in 2011 No Known Problems Sister Prostate cancer Maternal Grandfather [8] Social History Tobacco Use Smoking status: Never Smokeless tobacco: Former Quit date: 04/05/2016 Vaping Use Vaping status: Never Used Substance Use Topics Alcohol use: Not Currently Drug use: No Comment: caffiene: none [facility]: [phone] Consult note* Isaias Jovel - 10/29/2024 10:38 AM EDTAssociated Order(s): IP CONSULT TO ENDOCRINOLOGY Department of Internal Medicine Division of Endocrinology, Diabetes, & Metabolism Endocrinology Note Patient Name: Dulce Maria Machelle : 1995 AGE: 29 y.o. Room/Bed: J-G109/J-G109 A Admission Date: 10/28/2024 Visit Date: 10/29/2024 Reason for Endocrine Consult: Thyroid nodule Provider/Team Requesting Consult: Lawrence Hoffmann PCP: Zachariah Mateo Rome, DO Outpt Service Superintendent: No ASSESSMENT: #1. Thyroid nodule. #2. Heterogeneous thyroid gland on exam, top normal size. PLAN: #1. Thyroid function within normal limits, no need for antithyroid drugs or levothyroxine. #2. Thyroid nodules not the etiology of her symptoms. #3. Follow-up with her primary care physician, no need for Endo follow-up. #4. Will sign off. Recall if needed. ANTICIPATED ENDOCRINE HOME GOING RECOMMENDATIONS: Optimized for Discharge from Endocrine standpoint: Yes Home Going Endocrine Rx Recommendations-- None Outpt Follow Up-- With primary care physician SUBJECTIVE/HPI: CHIEF COMPLAINT: Chief Complaint Patient presents with Rapid Heart Rate Chest Pain 29-year-old female who was admitted with palpitations. Part of the workup started ultrasound was performed which revealed a heterogeneous thyroid gland, and small thyroid nodules. Thyroid function within normal limits. Patient with history of possible hypothyroidism in the past, she was on levothyroxine, however stopped taking more than 10 years ago. Most recent thyroid function, in October this year, within normal limits. Complains of palpitations, denies weight loss, no recent URIs. No compression symptoms. No increasein neck size. Review of Systems ROS negative except for those mentioned in HPI. OBJECTIVE: Vitals: 10/28/24 2327 10/29/24 0406 10/29/24 0733 10/29/24 1036 BP: 113/64 101/69 118/78 BP Location: Left arm Patient Position: Lying Pulse: 63 78 78 Resp: 18 18 16 Temp: 36.2 C (97.1 F) 36.1 C (96.9 F) 36.2 C (97.1 F) TempSrc: Temporal Temporal Temporal SpO2: 98% 98% 97% Weight: 158 lb 11.2 oz (72 kg) Height: Physical Exam Constitutional: Appearance: Normal appearance. HENT: Head: Normocephalic and atraumatic. Eyes: Extraocular Movements: Extraocular movements intact. Neck: Comments: Thyroid palpable, no palpable nodules. Cardiovascular: Rate and Rhythm: Normal rate and regular rhythm. Pulmonary: Effort: Pulmonary effort is normal. Breath sounds: Normal breath sounds. Abdominal: Palpations: Abdomen is soft. Musculoskeletal: Cervical back: Normal range of motion. Right lower leg: No edema. Left lower leg: No edema. Skin: General: Skin is warm. Neurological: General: No focal deficit present. Mental Status: She is alert and oriented to person, place, and time. Psychiatric: Mood and Affect: Mood normal. Behavior: Behavior normal. 24 hour intake/output:No intake or output data in the 24 hours ending 10/29/24 1038 Diet: Adult diet Regular Medications (as per EMR): HomeMeds: Current Outpatient Medications Medication Instructions metoprolol succinate XL (Toprol-XL) 25 MG 24 hr tablet 0.5 tablets, Nightly MV-Min-Fe Fum-FA-DHA ( 1 PO) Take by mouth. Probiotic Product (PROBIOTIC DAILY PO) Take by mouth. sertraline (ZOLOFT) 25 mg, Daily Scheduled Meds:Scheduled Meds[1] Continuous Infusions:Continuous Meds[2] PRN Meds:PRN Meds[3] Diagnostic Workup: I reviewed pertinent Laboratory results, Radiographic results, and Other Clinical Notes at the timeof today's encounter. Labs: No components found for: "LABA1C" No components found for: "EAG" Lab Results Component Value Date NA 140 10/29/2024 K 3.9 10/29/2024 CL 107 10/29/2024 CO2 23 10/29/2024 BUN 13 10/29/2024 CREATININE 0.81 10/29/2024 GLUCOSE 68 (L) 10/29/2024 CALCIUM 9.0 10/29/2024 Lab Results Component Value Date CHOL 240 (H) 10/29/2024 CHOL 229 (A) 04/07/2021 Lab Results Component Value Date TRIG 51 10/29/2024 TRIG 38 04/07/2021 Lab Results Component Value Date HDL 103 10/29/2024 HDL 127 (A) 04/07/2021 Lab Results Component Value Date LDLCALC 127 (H) 10/29/2024 No results found for: "VLDL" Lab Results Component Value Date CHOLHDLRATIO 2 10/29/2024 CHOLHDLRATIO 2 04/07/2021 No results found for: "[id number]" Lab Results Component Value Date TSH 1.22 10/28/2024 THYROIDAB <3.0 10/02/2022 Radiology reportsas per the Radiologist Radiology: ECG 12 lead Result Date: 10/29/2024 Sinus rhythm US thyroid Result Date: 10/28/2024 Patient Name: MACHELLE MAY : 1995 Exam Date/Time: 10/28/2024 17:33 Procedure: US THYROID Ordering Provider: BROWN HEATHER Reason For Exam: THYROID NODULE ULTRASOUND THYROID: Indication: Thyroid nodule. Examination: Ultrasonographicevaluation of the thyroid Comparison: CT chest 10/05/2024 FINDINGS: RIGHT LOBE: 1.4 x 1.6 x 4.8 cm LEFT LOBE: 0.9 x 1.5 x 5.2 cm ECHOGENICITY PATTERN: Slightly heterogeneous with tiny nodules THYROID ULTRASOUND : 1. Two tiny right lobe nodules and a 6 mm mid left lobe TI RADS 2 nodule identified. No further follow-up or FNA suggested. Report Dictated on Electronically Signed By: Francis Palacio MD Electronically Signed Date/Time: 10/28/2024 6:07 PM EDT ECG 12 lead Sinus rhythm EKG per my interpretation shows a normal sinus rhythm at a rate of 98 with a normal axis. There is no acute ST elevation or ST depression. Intervals are within normal limits otherwise. There were no significant changes compared to prior EKG on file. Electronically Signed On 10-28-2024 07:53:46 EDT by Bernabe Perales History/Other: Past Medical History: Medical History[4] Past Surgical History: Surgical History[5] Allergy(ies): Allergies[6] Family History: Family History[7] Social History: Social History[8] Portions of the information within this encounter were entered using an electronic dictation system. Best attempts were made to edit/proofread the information prior to note completion. Despite the review of information, some errors may remain. If there are questions related to the information contained within the note please contact the signing physician directly. Total time spent 45 minutes with the pt which involved coordination of care, medical evaluation, review of records, and/or counseling of the pt regarding his/her condition/disease state/prognosis on the date of this note. [1] metoprolol succinate XL, 12.5 mg, Oral, Nightly [2] [3] PRN medications: acetaminophen OR acetaminophen, hydrOXYzine pamoate, metoprolol, ondansetron ODT OR ondansetron, perflutren lipid microspheres, perflutren protein A microsphere (Optison)3 mL in sodium chloride (PF) 0.9 % 10 mL IV, polyethylene glycol (PEG) 3350 [4] Past Medical History: Diagnosis Date Anxiety Asthma 09/2016 Breast cyst, left 06/03/2021 Chronic sinusitis 12/2016 [facility] GERD (gastroesophageal reflux disease) 07/2016 EGD per [facility] Hypothyroid 2009 IBS (irritable bowel syndrome) 02/2016 constipation - Colonoscopy per [facility] Migraines Neck pain Palpitations [5] Past Surgical History: Procedure Laterality Date BREAST LUMPECTOMY 08/2024 COLONOSCOPY 02/2016 [facility] TONSILLECTOMY (HISTORICAL) 1999 [facility] [[facility]] Allergies Allergen Reactions Nitrofurantoin Other reaction(s): difficulty breathing Alprazolam Unknown Quetiapine Other [7] Family History Problem Relation Name Age of Onset Ovarian cancer Neg Hx Diabetes Mother 35.00 on insulin at > 50 Lung cancer Maternal Grandfather Diabetes Maternal Cousin Gayle Colon cancer Maternal Grandmother 80.00 No Known Problems Paternal Grandmother Thyroid cancer Maternal Cousin Gayle Pancreatic cancer Mother Breast cancer Neg Hx No Known Problems Paternal Grandfather Other ([id number]) Father Danya 54.00 MVA in 2011 No Known Problems Sister Prostate cancer Maternal Grandfather [8] Social History Tobacco Use Smoking status: Never Smokeless tobacco: Former Quit date: 04/05/2016 Vaping Use Vaping status: Never Used Substance Use Topics Alcohol use: Not Currently Drug use: No Comment: caffiene: none * Deric Cash MD - 10/29/2024 10:27 AM EDTAssociated Order(s): IP CONSULT TO NEUROLOGY Neurology consultation comments: I discussed this patient with Shivani Andrade CNP. The patient has already been seen for above issues by Dr. Cortez, the outpatient neurologist at [facility] and has undergone MRI of the brain and cervical spine studies on October 10, 2024 and has follow-up scheduled with him for this purpose and her paresthesias related complaints. The patient's MRI studies of the brain with and without contrast and cervical spine with and without contrast were reviewed by me and, are noted as unremarkable. The studies were performed in [facility] on October 10, 2024. The patient's EEG is also normal. This study was performed on October 10, [address] [facility]. The patient's EMG and nerve conduction study as well as vestibular testing are pending and will probably need to be rescheduled since, apparently the patient was unable to make these appointments on October 23, 2024. The patient is already being worked up for POTS by outside physician as well. After detailed discussion on [employer] chat, it was decided that the patient should follow-up with outpatient neurology for neurological evaluation and recommendations. There are no active neurological issues at this time to be addressed for this patient, by inpatientneurology service that will be relevant to this admission. I have not seen this patient but, if there are any active neurological issues, please feel free to contact neurology service and place neurology consult to our service. No active neurological recommendations at this time. Follow-up with Dr. Cortez per appointment at his office. Thank you. documented in this [facility]09-24-2025 Consult note* Deric Cash MD - 10/29/2024 10:27 AM EDTAssociated Order(s): IP CONSULT TO NEUROLOGY Neurology consultation comments: I discussed this patient with Shivani Andrade CNP. The patient has already been seen for above issues by Dr. Cortez, the outpatient neurologist at [facility] and has undergone MRI of the brain and cervical spine studies on October 10, 2024 and has follow-up scheduled with him for this purpose and her paresthesias related complaints. The patient's MRI studies of the brain with and without contrast and cervical spine with and without contrast were reviewed by me and, are noted as unremarkable. The studies were performed in [facility] on October 10, 2024. The patient's EEG is also normal. This study was performed on October 10, [address] [facility]. The patient's EMG and nerve conduction study as well as vestibular testing are pending and will probably need to be rescheduled since, apparently the patient was unable to make these appointments on October 23, 2024. The patient is already being worked up for POTS by outside physician as well. After detailed discussion on epic chat, it was decided that the patient should follow-up with outpatient neurology for neurological evaluation and recommendations. There are no active neurological issues at this time to be addressed for this patient, by inpatientneurology service that will be relevant to this admission. I have not seen this patient but, if there are any active neurological issues, please feel free to contact neurology service and place neurology consult to our service. No active neurological recommendations at this time. Follow-up with Dr. Cortez per appointment at his office. Thank you. [employer] Phone: [phone] Progress note* Care Coordination - Luisa Swan RN - 10/29/2024 8:11 AM EDT Care Management Progress Note Short Medical why still here: Endocrinology consult completed~ thyroid labs WNL and sx not related to thyroid nodules- pt recommended to follow up with primary care provider. Neurology does not assess that the issues is neurological. Patient vs and labs stable. No events overnight. Planned Discharge Disposition: Home or Self Care Barriers/Today we still Wait: Clinical stability, Symptomatic control Length of Stay (Days): 0 GMLOS: No GMLOS Documented . 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 Increased concerns over this. Did find two nodules on US despite normal TSH-, patient wants follow up, consulted endocrine Consulted neurology, frequently worried over symptoms this evening Placed order for IV Metoprolol for HR > 120 and Vistaril for anxiety, willing to try the Vistaril [id number] History and physical note* WILLARD Hoffman CNP - 10/28/2024 3:59 PM EDT .. Attending History and Physical Admit Date: 10/28/2024 PCP: Zachariah Rome DO CHIEF COMPLAINT: chest pain and pressure, tachycardia Reason for Admission: chest pain History Obtained From: patient HISTORY OF PRESENT ILLNESS: As stated by the ED provider at [facility], "Dulce Maria Carty is a 29 y.o. who presents to the emergencydepartment with chief complaint of rapid heart rate and chest pain. The patient has been having intermittent chest pain for the past several days. She says her heart rate has gone up to 170. She saidit went up and high this morning. She was able to check her heart rate with a home pulse oximeter. She has pressure and tightness in her chest. She says her jaw hurts. She has felt lightheaded and short of breath with this. She gets numbness and tingling in her fingers. She did see volumetric weigher yesterday. She has an echo and another heart test scheduled coming up soon. She is on metoprolol. Patient said that this woke her up from sleep this morning. She is very concerned because she keeps having these recurrent symptoms and is not sure why. She denies any fevers or chills. No new headaches orvisual complaints. No cough or URI symptoms. She has some upper abdominal discomfort though no vomiting or diarrhea. No urinary complaints. She denies being . No bruising or swelling. No new leg pain. No localizing numbness or weakness. No other associated complaints. She denies smoke, alcohol drug use. She denies any first- degree relatives with heart problems". Initial ED workup: Patient was given nitroglycerin, 1 liter bolus of fluids, and 324 mg ASA Labs: high sensitivity troponins x 2, bilirubin 1.2, no leukocytosis, stable hemoglobin, TSH normal, urinalysis ketones otherwise unremarkable Tests: ECG SR May is a 29 y.o. female arrives from [facility] ED to the CDU with past medical history of anxiety, asthma, chronic sinusitis, GERD, hypothyroid, IBS, migraines, anterior neck pain, and palpitationswho presents with chief complaint of chest pain, tachycardia, and generally feeling unwell. Patientstates at the end of September is when chest burning started. The burning radiates through bilateral shoulders, down both arms into her hands and fingers. She also endorses intermittent jaw pain and twitching. She states she has been having general body aches, and stiffness. She states she does co-sleep with her son and may not have the best sleep posture. She described her skin as feeling "sunburnt". She said last week her arms, and jaw feel like they have tremors. She has been noticing bilateralleg jerking when she is falling asleep at night. This past Sunday, she woke up in the middle of thenight feeling unwell with her heart was racing. She noticed her heart rate was in the 170s at that time, and she proceeded to the [facility] ED. Patient is concerned she may have a thyroid nodule due to anterior neck pain. Patient is currently her one your old son, and this is her second baby. Patient reports having a left breast lumpectomy on August 19, and then in September had fluid drained from the left breast. She came in today because her overall symptoms feel like they are worse lala, and she keeps feeling panicked like she is not going to make it. Her and both sons are at bedside. Her also states that she has woke up for the last 4 nights with her heart racing, and he said she was panicking. Past Medical History: Medical History[1] Past Surgical History: Surgical History[2] Social History: Social History Socioeconomic History Marital status: Spouse name: Not on file Number of children: Not on file Years of education: Not on file Highest education level: Not on file Occupational History Not on file Tobacco Use Smoking status: Never Smokeless tobacco: Former Quit date: 04/05/2016 Vaping Use Vaping status: Never Used Substance and Sexual Activity Alcohol use: Not Currently Drug use: No Comment: caffiene: none Sexual activity: Yes Other Topics Concern Not on file Social History Narrative to Emile Nielson) since 07/21. NS or drinker, no children. 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 Social Drivers of Health Financial Resource Strain: Low Risk (04/20/2021) Received from [facility] Overall Financial Resource Strain (CARDIA) Difficulty of Paying Living Expenses: Not hard at all Food Insecurity: No Food Insecurity (10/10/2024) Received from [facility] Hunger Vital Sign Worried About Running Out of Food in the Last Year: Never true Ran Out of Food in the Last Year: Never true Transportation Needs: No Transportation Needs (10/10/2024) Received from [facility] PRAPARE - Transportation In the past 12 months, has lack of transportation kept you from medical appointments or from getting medications?: No In the past 12 months, has lack of transportation kept you from meetings, work, or from getting things needed for daily living?: No Physical Activity: Sufficiently Active (04/20/2021) Received from [facility] Exercise Vital Sign Days of Exercise per Week: 5 days Minutes of Exercise per Session: 30 min Stress: No Stress Concern Present (04/20/2021) Received from [facility] [place] [employer] - Occupational Stress Questionnaire Feeling of Stress : Not at all Social Connections: Moderately Integrated (04/20/2021) Received from [facility] Social Connection and Isolation Panel [NHANES] Frequency of Communication with Friends and Family: More than three times a week Frequency of Social Gatherings with Friends and Family: Twice a week Attends Mosque Services: More than 4 times per year Active Member of Clubs or Organizations: No Attends Club or Organization Meetings: Never Marital Status: Intimate Partner Violence: Not on file Housing Stability: Unknown (10/10/2024) Received from [facility] Housing Stability Vital Sign Unable to Pay for Housing in the Last Year: No Number of Times Moved in the Last Year: Not on file Homeless in the Last Year: No Family History: Family History[3] Medications Prior to Admission: Current Medications[4] Medications Reconciliation: Medication were reviewed and verified as accurate with patient. Allergies: Allergies[5] REVIEW OF SYSTEMS: 10 point ROS obtained, as per HPI, otherwise NEG Vitals: BP 122/84 (BP Location: Right arm, Patient Position: Lying) Pulse 100 Temp 36.5 C (97.7 F) (Temporal) Resp 16 Ht 5' 7" (1.702 m) Wt 160 lb (72.6 kg) LMP 10/05/2022 (Approximate) SpO2 98% BMI 25.06 kg/m BMI Classification: Overweight (BMI 25.0-29.9) Pulse Ox: SpO2 Av.4 % Min: 98 % Max: 100 % Supplemental O2: PHYSICAL EXAM: Physical Exam Constitutional: Appearance: Normal appearance. Cardiovascular: Rate and Rhythm: Normal rate and regular rhythm. Pulses: Normal pulses. Pulmonary: Effort: Pulmonary effort is normal. Breath sounds: Normal breath sounds. Abdominal: Palpations: Abdomen is soft. Skin: General: Skin is warm and dry. Capillary Refill: Capillary refill takes less than 2 seconds. Neurological: Mental Status: She is alert and oriented to person, place, and time. Mental status is at baseline. Psychiatric: Mood and Affect: Mood normal. Behavior: Behavior normal. DATA: CBC: Recent Labs 10/26/2431610/27/2422010/28/24 0751 WBC 5.3 6.0 5.7 RBC 4.75 4.83 5.00 HGB 13.7 13.9 14.3 HCT 40.1 40.8 41.5 MCV 84.4 84.5 83.0 RDW 12.0 11.9 12.0 PLT 175 188 195 BMP: Recent Labs 10/26/2431610/27/24 0221 10/28/24 0751 NA 140 140 141 K 3.6 3.4* 3.7 CL 107 106 106 CO2 23 21* 22 BUN 13 14 13 CREATININE 0.83 0.83 0.82 GLUCOSE 101* 115* 95 CALCIUM 9.0 9.0 9.4 ANIONGAP 10 13 13 LIVER PROFILE: Recent Labs 10/28/24 0751 AST 16 ALT 9 BILITOT 1.2* ALKPHOS 57 PROT 7.0 PT/INR: No results for input(s): "PROTIME", "INR" in the last 72 hours. CARDIAC ENZYMES: No results for input(s): "TROPONINI" in the last 72 hours. Procalcitonin: No results found for: "PROCAL" Urine Culture: Results for orders placed or performed in visit on 05/26/22 Urine culture Collection Time: 05/26/22 2:15 PM Specimen: Urine, Clean Catch Result Value Ref Range Urine Culture Normal urogenital edwina present COVID-19 PCR: No results for input(s): "COVID19" in the last 72 hours. I reviewed: [x] laboratory results [x] radiographic results At the time of today's encounter. Pt was advised of the results. Data: (CAT1) Reviewed 3 or more notes from different specialty or health system (each=1). (CAT1) Reviewed 3 or more labs/studies ordered by another provider not previously counted (each=1, panels count as 1). (CAT1) Ordered 3 or more new labs and/or studies (each=1, panels count as 1). (LOW: 2x CAT1 or independent historian MOD: 3x CAT1 or 1x CAT3 EXTENSIVE: 3x CAT1 and 1x CAT3) Assessment Discussed management with the ED provider and agree with hospitalization. Acute, acute on chronic, unstable/uncontrolled chronic problems/diagnoses: Chest pain Tachycardia Numbness in bilateral hands Anxiety Palpitations Anterior neck pain Stable chronic problems affecting care, new non-acute diagnoses: Asthma GERD Chronic sinusitis Migraines IBS Plan As a result of the above findings & factors, the following mgmt was pursued: - observation in CDU - echocardiogram - check lipid panel - EKG 10/29 and PRN - daily standing weight - input and output - thyroid U/S - maintain telemetry - routine vital signs - resume home medication - am labs, replace lytes prn - PT/OT/CM/SW - delirium precautions: increase activity and limit nighttime disturbances - DVT prophylaxis: encourage ambulation Complexity: Acute illness with systemic symptoms (MOD). Risk: Low risk diagnostic testing or treatment (LOW). Advance Directive: No Order Anticipated Discharge - Date - TBD - Location - Home - Pending the following - workup Total time spent (which include face to face and non face to face encounters) : 60 minutes. Toxic drug monitoring/narrow therapeutic index drug monitoring : # Drug name : # Route administered : # Method of monitoring : Extended Emergency Contact Information Primary Emergency Contact: Emile Carty Relation: Spouse [employer] May Machelle : 1995 Primary Care Physician: Zachariah Rome DO The patient and/or family/surrogate voluntarily agreed to participate in ACP services. Patient s cognitive capacity: Alert and oriented x 4 Code Status: [x] [FULL CODE - Continue all advanced life support: CPR,intubation,invasive procedures] [_] [DNR-CCA - DO NOT do CPR, intubation] [_] [DNR-HIGHWAY WORKER - Comfort care only] [_] DNR form [was/was not] signed Summary of discussion: The patient health care POA/ surrogate is the following: Emile, spouse. [Condition that instigated the ACP on this DOS, relevant PMH, functional status, goals of care, andwhom this was discussed with including names and relationship to the patient, and any relevant advance care documentation discussion] I answered all the patient/family questions that I could within the range and scope of the current medical situation. We discussed the medical conditions, risks, benefits, outcomes, and goals of careat this time for the patient's medical issues at hand in the face of the patient's chronic issues and current presentation. Total time spent: 3 minutes were spent discussing the patient's resuscitation status, advance care planning, and end of life care, with patient and/or family/surrogate. Shivani GIVENS-SEXOLOGIST Division of Hospitalist Medicine [facility] [1] Past Medical History: Diagnosis Date Anxiety Asthma 09/2016 Breast cyst, left 06/03/2021 Chronic sinusitis 12/2016 ENT eval per [facility] GERD (gastroesophageal reflux disease) 07/2016 EGD per [facility] Hypothyroid 2009 IBS (irritable bowel syndrome) 02/2016 constipation - Colonoscopy per [facility] Migraines Neck pain Palpitations [2] Past Surgical History: Procedure Laterality Date BREAST LUMPECTOMY 08/2024 COLONOSCOPY 02/2016 [facility] TONSILLECTOMY (HISTORICAL) 1999 UPPER GASTROINTESTINAL ENDOSCOPY 11/2016 [facility] [3] Family History Problem Relation Name Age of Onset Ovarian cancer Neg Hx Diabetes Mother 35.00 on insulin at > 50 Lung cancer Maternal Grandfather Diabetes Maternal Cousin Gayle Colon cancer Maternal Grandmother 80.00 No Known Problems Paternal Grandmother Thyroid cancer Maternal Cousin Gayle Pancreatic cancer Mother Breast cancer Neg Hx No Known Problems Paternal Grandfather Other ([id number]) Father Danya 54.00 MVA in 2011 No Known Problems Sister Prostate cancer Maternal Grandfather [4] No current facility-administered medications for this encounter. [5] Allergies Allergen Reactions Nitrofurantoin Other reaction(s): difficulty breathing Alprazolam Unknown Quetiapine Other Cosigned by John Jean MD at 10/29/2024 12:06 PM EDT [id number] History and physical note* WILLARD Hoffman CNP - 10/28/2024 3:59 PM EDT .. Attending History and Physical Admit Date: 10/28/2024 PCP: Zachariah Rome DO CHIEF COMPLAINT: chest pain and pressure, tachycardia Reason for Admission: chest pain History Obtained From: patient HISTORY OF PRESENT ILLNESS: As stated by the ED provider at [facility], "Dulce Maria Carty is a 29 y.o. who presents to the emergencydepartment with chief complaint of rapid heart rate and chest pain. The patient has been having intermittent chest pain for the past several days. She says her heart rate has gone up to 170. She saidit went up and high this morning. She was able to check her heart rate with a home pulse oximeter. She has pressure and tightness in her chest. She says her jaw hurts. She has felt lightheaded and short of breath with this. She gets numbness and tingling in her fingers. She did see volumetric weigher yesterday. She has an echo and another heart test scheduled coming up soon. She is on metoprolol. Patient said that this woke her up from sleep this morning. She is very concerned because she keeps having these recurrent symptoms and is not sure why. She denies any fevers or chills. No new headaches orvisual complaints. No cough or URI symptoms. She has some upper abdominal discomfort though no vomiting or diarrhea. No urinary complaints. She denies being . No bruising or swelling. No new leg pain. No localizing numbness or weakness. No other associated complaints. She denies smoke, alcohol drug use. She denies any first- degree relatives with heart problems". Initial ED workup: Patient was given nitroglycerin, 1 liter bolus of fluids, and 324 mg ASA Labs: high sensitivity troponins x 2, bilirubin 1.2, no leukocytosis, stable hemoglobin, TSH normal, urinalysis ketones otherwise unremarkable Tests: ECG SR Dulce Maria is a 29 y.o. female arrives from [facility] ED to the CDU with past medical history of anxiety, asthma, chronic sinusitis, GERD, hypothyroid, IBS, migraines, anterior neck pain, and palpitationswho presents with chief complaint of chest pain, tachycardia, and generally feeling unwell. Patientstates at the end of September is when chest burning started. The burning radiates through bilateral shoulders, down both arms into her hands and fingers. She also endorses intermittent jaw pain and twitching. She states she has been having general body aches, and stiffness. She states she does co-sleep with her son and may not have the best sleep posture. She described her skin as feeling "sunburnt". She said last week her arms, and jaw feel like they have tremors. She has been noticing bilateralleg jerking when she is falling asleep at night. This past Sunday, she woke up in the middle of thenight feeling unwell with her heart was racing. She noticed her heart rate was in the 170s at that time, and she proceeded to the [facility] ED. Patient is concerned she may have a thyroid nodule due to anterior neck pain. Patient is currently her one your old son, and this is her second baby. Patient reports having a left breast lumpectomy on August 19, and then in September had fluid drained from the left breast. She came in today because her overall symptoms feel like they are worse lala, and she keeps feeling panicked like she is not going to make it. Her and both sons are at bedside. Her also states that she has woke up for the last 4 nights with her heart racing, and he said she was panicking. Past Medical History: Medical History[1] Past Surgical History: Surgical History[2] Social History: Social History Socioeconomic History Marital status: Spouse name: Not on file Number of children: Not on file Years of education: Not on file Highest education level: Not on file Occupational History Not on file Tobacco Use Smoking status: Never Smokeless tobacco: Former Quit date: 04/05/2016 Vaping Use Vaping status: Never Used Substance and Sexual Activity Alcohol use: Not Currently Drug use: No Comment: caffiene: none Sexual activity: Yes Other Topics Concern Not on file Social History Narrative to Emlie Nielson) since 07/21. NS or drinker, no children. 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 Social Drivers of Health Financial Resource Strain: Low Risk (04/20/2021) Received from [facility] Overall Financial Resource Strain (CARDIA) Difficulty of Paying Living Expenses: Not hard at all Food Insecurity: No Food Insecurity (10/10/2024) Received from [facility] Hunger Vital Sign Worried About Running Out of Food in the Last Year: Never true Ran Out of Food in the Last Year: Never true Transportation Needs: No Transportation Needs (10/10/2024) Received from [facility] PRAPARE - Transportation In the past 12 months, has lack of transportation kept you from medical appointments or from getting medications?: No In the past 12 months, has lack of transportation kept you from meetings, work, or from getting things needed for daily living?: No Physical Activity: Sufficiently Active (04/20/2021) Received from [facility] Exercise Vital Sign Days of Exercise per Week: 5 days Minutes of Exercise per Session: 30 min Stress: No Stress Concern Present (04/20/2021) Received from [facility] [place] [employer] - Occupational Stress Questionnaire Feeling of Stress : Not at all Social Connections: Moderately Integrated (04/20/2021) Received from [facility] Social Connection and Isolation Panel [NHANES] Frequency of Communication with Friends and Family: More than three times a week Frequency of Social Gatherings with Friends and Family: Twice a week Attends Mosque Services: More than 4 times per year Active Member of Clubs or Organizations: No Attends Club or Organization Meetings: Never Marital Status: Intimate Partner Violence: Not on file Housing Stability: Unknown (10/10/2024) Received from [facility] Housing Stability Vital Sign Unable to Pay for Housing in the Last Year: No Number of Times Moved in the Last Year: Not on file Homeless in the Last Year: No Family History: Family History[3] Medications Prior to Admission: Current Medications[4] Medications Reconciliation: Medication were reviewed and verified as accurate with patient. Allergies: Allergies[5] REVIEW OF SYSTEMS: 10 point ROS obtained, as per HPI, otherwise NEG Vitals: BP 122/84 (BP Location: Right arm, Patient Position: Lying) Pulse 100 Temp 36.5 C (97.7 F) (Temporal) Resp 16 Ht 5' 7" (1.702 m) Wt 160 lb (72.6 kg) LMP 10/05/2022 (Approximate) SpO2 98% BMI 25.06 kg/m BMI Classification: Overweight (BMI 25.0-29.9) Pulse Ox: SpO2 Av.4 % Min: 98 % Max: 100 % Supplemental O2: PHYSICAL EXAM: Physical Exam Constitutional: Appearance: Normal appearance. Cardiovascular: Rate and Rhythm: Normal rate and regular rhythm. Pulses: Normal pulses. Pulmonary: Effort: Pulmonary effort is normal. Breath sounds: Normal breath sounds. Abdominal: Palpations: Abdomen is soft. Skin: General: Skin is warm and dry. Capillary Refill: Capillary refill takes less than 2 seconds. Neurological: Mental Status: She is alert and oriented to person, place, and time. Mental status is at baseline. Psychiatric: Mood and Affect: Mood normal. Behavior: Behavior normal. DATA: CBC: Recent Labs 10/26/2431610/27/2422010/28/24 0751 WBC 5.3 6.0 5.7 RBC 4.75 4.83 5.00 HGB 13.7 13.9 14.3 HCT 40.1 40.8 41.5 MCV 84.4 84.5 83.0 RDW 12.0 11.9 12.0 PLT 175 188 195 BMP: Recent Labs 10/26/2431610/27/2422010/28/24 0751 NA 140 140 141 K 3.6 3.4* 3.7 CL 107 106 106 CO2 23 21* 22 BUN 13 14 13 CREATININE 0.83 0.83 0.82 GLUCOSE 101* 115* 95 CALCIUM 9.0 9.0 9.4 ANIONGAP 10 13 13 LIVER PROFILE: Recent Labs 10/28/24 075 AST 16 ALT 9 BILITOT 1.2* ALKPHOS 57 PROT 7.0 PT/INR: No results for input(s): "PROTIME", "INR" in the last 72 hours. CARDIAC ENZYMES: No results for input(s): "TROPONINI" in the last 72 hours. Procalcitonin: No results found for: "PROCAL" Urine Culture: Results for orders placed or performed in visit on 05/26/22 Urine culture Collection Time: 05/26/22 2:15 PM Specimen: Urine, Clean Catch Result Value Ref Range Urine Culture Normal urogenital edwina present COVID-19 PCR: No results for input(s): "COVID19" in the last 72 hours. I reviewed: [x] laboratory results [x] radiographic results At the time of today's encounter. Pt was advised of the results. Data: (CAT1) Reviewed 3 or more notes from different specialty or health system (each=1). (CAT1) Reviewed 3 or more labs/studies ordered by another provider not previously counted (each=1, panels count as 1). (CAT1) Ordered 3 or more new labs and/or studies (each=1, panels count as 1). (LOW: 2x CAT1 or independent historian MOD: 3x CAT1 or 1x CAT3 EXTENSIVE: 3x CAT1 and 1x CAT3) Assessment Discussed management with the ED provider and agree with hospitalization. Acute, acute on chronic, unstable/uncontrolled chronic problems/diagnoses: Chest pain Tachycardia Numbness in bilateral hands Anxiety Palpitations Anterior neck pain Stable chronic problems affecting care, new non-acute diagnoses: Asthma GERD Chronic sinusitis Migraines IBS Plan As a result of the above findings & factors, the following mgmt was pursued: - observation in CDU - echocardiogram - check lipid panel - EKG 10/29 and PRN - daily standing weight - input and output - thyroid U/S - maintain telemetry - routine vital signs - resume home medication - am labs, replace lytes prn - PT/OT/CM/SW - delirium precautions: increase activity and limit nighttime disturbances - DVT prophylaxis: encourage ambulation Complexity: Acute illness with systemic symptoms (MOD). Risk: Low risk diagnostic testing or treatment (LOW). Advance Directive: No Order Anticipated Discharge - Date - TBD - Location - Home - Pending the following - workup Total time spent (which include face to face and non face to face encounters) : 60 minutes. Toxic drug monitoring/narrow therapeutic index drug monitoring : # Drug name : # Route administered : # Method of monitoring : Extended Emergency Contact Information Primary Emergency Contact: Emile Carty Relation: Spouse [employer] May Machelle : 1995 Primary Care Physician: Zachariah Rome DO The patient and/or family/surrogate voluntarily agreed to participate in ACP services. Patient s cognitive capacity: Alert and oriented x 4 Code Status: [x] [FULL CODE - Continue all advanced life support: CPR,intubation,invasive procedures] [_] [DNR-CCA - DO NOT do CPR, intubation] [_] [DNR-HIGHWAY WORKER - Comfort care only] [_] DNR form [was/was not] signed Summary of discussion: The patient health care POA/ surrogate is the following: Emile, spouse. [Condition that instigated the ACP on this DOS, relevant PMH, functional status, goals of care, andwhom this was discussed with including names and relationship to the patient, and any relevant advance care documentation discussion] I answered all the patient/family questions that I could within the range and scope of the current medical situation. We discussed the medical conditions, risks, benefits, outcomes, and goals of careat this time for the patient's medical issues at hand in the face of the patient's chronic issues and current presentation. Total time spent: 3 minutes were spent discussing the patient's resuscitation status, advance care planning, and end of life care, with patient and/or family/surrogate. Shivani Brown JONNY-SEXOLOGIST Division of Hospitalist Medicine Acute care [facility] [1] Past Medical History: Diagnosis Date Anxiety Asthma 09/2016 Breast cyst, left 06/03/2021 Chronic sinusitis 12/2016 E[facility] eval [facility] GERD (gastroesophageal reflux disease) 07/2016 EGD per [facility] Hypothyroid 2009 IBS (irritable bowel syndrome) 02/2016 constipation - Colonoscopy per [facility] Migraines Neck pain Palpitations [2] Past Surgical History: Procedure Laterality Date BREAST LUMPECTOMY 08/2024 COLONOSCOPY 02/2016 [facility] TONSILLECTOMY (HISTORICAL) 1999 UPPER GASTROINTESTINAL ENDOSCOPY 11/2016 [facility] [3] Family History Problem Relation Name Age of Onset Ovarian cancer Neg Hx Diabetes Mother 35.00 on insulin at > 50 Lung cancer Maternal Grandfather Diabetes Maternal Cousin Gayle Colon cancer Maternal Grandmother 80.00 No Known Problems Paternal Grandmother Thyroid cancer Maternal Cousin Gayle Pancreatic cancer Mother Breast cancer Neg Hx No Known Problems Paternal Grandfather Other ([id number]) Father Danya 54.00 MVA in 2011 No Known Problems Sister Prostate cancer Maternal Grandfather [4] No current facility-administered medications for this encounter. [5] Allergies Allergen Reactions Nitrofurantoin Other reaction(s): difficulty breathing Alprazolam Unknown Quetiapine Other Cosigned by John Jean MD at 10/29/2024 12:06 PM EDT documented in this [facility]09-23-2025 Nurse Note* Gayatri Poe RN - 10/28/2024 3:15 PM EDT Pt arrived from [facility] ER via ambulance. Pt ambulated to bed without assist. PM applied; NSR, VSS. Oriented to CDU routine, use of call light, TV. Reviewed current complaint and symptoms, PMH and current medications. [employer] updated and completed. Updated H SURESH Brown that pt had arrived;awaiting admission orders. Call light in reach. [id number] Emergency department Note* lIeana Oliva RN - 10/28/2024 9:15 AM EDT Patient reported she is voiding more than normal. Dr. Perales notified. [id number] Emergency department Note* Ileana Oliva RN - 10/28/2024 9:15 AM EDT Patient reported she is voiding more than normal. Dr. Perales notified. * Ileana Oliva RN - 10/28/2024 8:40 AM EDT Patient reports her stools have been orange for the last 2 - 3 weeks. * Ileana Oliva RN - 10/28/2024 8:[address] Perales notified of patient , patient was advised to pump and dump. Patient voiced understanding. * Bernabe Perales MD - 10/28/2024 7:37 AM EDT EMERGENCY DEPARTMENT ENCOUNTER Pt Name: Dulce Maria Carty Birthdate 1995 Date of evaluation: 10/28/2024 ED Provider: Bernabe Perales MD CHIEF COMPLAINT Chief Complaint Patient presents with Rapid Heart Rate Chest Pain HISTORY OF PRESENT ILLNESS (Location/Symptom, Timing/Onset, Context/Setting, Quality, Duration, Modifying Factors, Severity) Note limiting factors. I wore appropriate PPE for the entirety of this encounter. HPI Dulce Maria Carty is a 29 y.o. who presents to the emergency department with chief complaint of rapid heart rate and chest pain. The patient has been having intermittent chest pain for the past several days. She says her heart rate has gone up to 170. She said it went up and high this morning. She was able to check her heart rate with a home pulse oximeter. She has pressure and tightness in her chest.She says her jaw hurts. She has felt lightheaded and short of breath with this. She gets numbness and tingling in her fingers. She did see volumetric weigher yesterday. She has an echo and another heart test scheduled coming up soon. She is on metoprolol. Patient said that this woke her up from sleep this morning. She is very concerned because she keeps having these recurrent symptoms and is not sure why. She denies any fevers or chills. No new headaches or visual complaints. No cough or URI symptoms. She has some upper abdominal discomfort though no vomiting or diarrhea. No urinary complaints. Shedenies being . No bruising or swelling. No new leg pain. No localizing numbness or weakness. No other associated complaints. She denies smoke, alcohol drug use. She denies any first-degree relatives with heart problems. Nursing Notes were reviewed. Limitations to history: None Outside historians: None REVIEW OF SYSTEMS Review of Systems Constitutional: Negative for chills and fever. HENT: Negative for sore throat. Eyes: Negative for visual disturbance. Respiratory: Positive for shortness of breath. Negative for cough. Cardiovascular: Positive for chest pain and palpitations. Negative for leg swelling. Gastrointestinal: Positive for abdominal pain. Negative for diarrhea and vomiting. Genitourinary: Negative for dysuria. Musculoskeletal: Negative for arthralgias and back pain. Skin: Negative for color change and rash. Neurological: Positive for light-headedness. Negative for weakness. She complains of paresthesias in both hands more on the left than the right. All other systems reviewed and are negative. Pertinent positives and negatives as per HPI. PAST MEDICAL HISTORY Medical History[1] SURGICAL HISTORY Surgical History[2] CURRENT MEDICATIONS Previous Medications HYDROXYZINE PAMOATE (VISTARIL) 25 MG CAPSULE Take 1 capsule (25 mg) by mouth every 6 hours as needed for anxiety for up to 10 days. MAGNESIUM 300 MG CAPSULE Take by mouth. METOPROLOL SUCCINATE XL (TOPROL-XL) 25 MG 24 HR TABLET 0.5 tablets Every 24 hours. MV-MIN-FE FUM-FA-DHA ( 1 PO) Take by mouth. PROBIOTIC PRODUCT (PROBIOTIC DAILY PO) Take by mouth. SERTRALINE (ZOLOFT) 25 MG TABLET Take 25 mg by mouth Every 24 hours. ALLERGIES Nitrofurantoin, Alprazolam, and Quetiapine FAMILY HISTORY Family History[3] SOCIAL HISTORY Social History[4] SCREENINGS Tanisha Coma Scale Best Eye Response: Spontaneous Best Verbal Response: Oriented Best Motor Response: Follows commands Tanisha Coma Scale Score: 15 PHYSICAL EXAM ED Triage Vitals [10/28/24 0740] Temp Heart Rate Resp BP 36.8 C (98.2 F) 104 16 (!) 138/107 SpO2 Temp src Heart Rate Source Patient Position 100 % -- Monitor -- BP Location FiO2 (%) -- -- Physical Exam Vitals and nursing note reviewed. Constitutional: Appearance: Normal appearance. She is well-developed. She is not toxic-appearing. Comments: Patient appears uncomfortable and somewhat concerned although nontoxic. HENT: Head: Normocephalic and atraumatic. Right Ear: External ear normal. Left Ear: External ear normal. Nose: Nose normal. Mouth/Throat: Mouth: Mucous membranes are moist. Pharynx: Oropharynx is clear. Eyes: Extraocular Movements: Extraocular movements intact. Conjunctiva/sclera: Conjunctivae normal. Pupils: Pupils are equal, round, and reactive to light. Cardiovascular: Rate and Rhythm: Regular rhythm. Tachycardia present. Heart sounds: Normal heart sounds. No murmur heard. Comments: Patient is mildly tachycardic. Pulmonary: Effort: Pulmonary effort is normal. No respiratory distress. Breath sounds: No wheezing, rhonchi or rales. Chest: Chest wall: No tenderness. Abdominal: General: Bowel sounds are normal. Palpations: Abdomen is soft. There is no mass. Tenderness: There is no abdominal tenderness. There is no guarding or rebound. Hernia: No hernia is present. Musculoskeletal: General: No swelling or tenderness. Normal range of motion. Cervical back: Normal range of motion and neck supple. Right lower leg: No edema. Left lower leg: No edema. Skin: General: Skin is warm and dry. Neurological: General: No focal deficit present. Mental Status: She is alert and oriented to person, place, and time. GCS: GCS eye subscore is 4. GCS verbal subscore is 5. GCS motor subscore is 6. Cranial Nerves: Cranial nerves 2-12 are intact. Sensory: Sensation is intact. Motor: Motor function is intact. Coordination: Coordination is intact. Psychiatric: Mood and Affect: Mood normal. DIAGNOSTIC RESULTS Procedures/EKG: EKG per my interpretation shows a normal sinus rhythm at a rate of 98 with a normal axis. There is no acute ST elevation or ST depression. Intervals are within normal limits otherwise. There were no significant changes compared to prior EKG on file. EKG was reviewed by myself. Physician EKG interpretation can be found in [facility] Interpretation per the Radiologist below, if available at the time of this note: No orders to display ED BEDSIDE ULTRASOUND: Performed by ED Physician - none LABS: Labs Reviewed COMPREHENSIVE METABOLIC PANEL - Abnormal Result Value SODIUM 141 POTASSIUM 3.7 CHLORIDE 106 CARBON DIOXIDE 22 ANION GAP 13 UREA NITROGEN 13 CREATININE 0.82 GLUCOSE 95 CALCIUM 9.4 AST (SGOT) 16 ALT 9 ALKALINE PHOSPHATASE 57 ALBUMIN 4.3 BILIRUBIN, TOTAL 1.2 (*) TOTAL PROTEIN 7.0 eGFR >90.0 HIGH SENSITIVITY TROPONIN, SERIAL BASELINE - Normal Troponin HS Serial Baseline <3 CBC WITH AUTO DIFFERENTIAL - Normal Auto WBC 5.7 RBC 5.00 Hemoglobin 14.3 Hematocrit 41.5 MCV 83.0 MCH 28.6 MCHC 34.5 RDW 12.0 Platelets 195 MPV 9.9 nRBC 0.0 Neutrophils Relative 58.5 Lymphocytes Relative 32.9 Monocytes Relative 7.2 Eosinophils Relative 0.9 Basophils Relative 0.5 Immature Grans % 0.0 Neutrophils Absolute 3.3 Lymphocytes Absolute 1.9 Monocytes Absolute 0.4 Eosinophils Absolute 0.1 Basophils Absolute 0.0 Immature Grans Absolute 0.0 THYROID STIMULATING HORMONE - Normal THYROID STIMULATING HORMONE 1.22 HIGH SENSITIVITY TROPONIN, SERIAL, SECOND TEST COMPLETE URINALYSIS WITH REFLEX TO CULTURE HCG QUALITATIVE URINE All other labs were within normal range or not returned as of this dictation. EMERGENCY DEPARTMENT COURSE and DIFFERENTIAL DIAGNOSIS/MDM: Vitals: Vitals: 10/28/24 0816 10/28/24 0820 10/28/24 0824 10/28/24 0850 BP: 110/58 133/85 (!) 142/84 115/76 Pulse: 107 104 88 84 Resp: 16 Temp: SpO2: 100% 100% 100% 100% Weight: Height: Diagnoses as of 10/28/24 0936 Chest pain, unspecified type Tachycardia The patient presented with chief complaint of chest pain and palpitations. The differential diagnosis associated with this patient's presentation includes arrhythmia, electrolyte abnormality, unlikely dehydration, possible thyroid issue, possible ACS, unlikely CHF, unlikelyPE or dissection, unlikely sepsis or bacteremia. Our workup consisted of ordering/reviewing: EKG and lab work. Patient is in agreement with this plan. Medications aspirin chewable tablet 324 mg (324 mg Oral Given 10/28/24 08) nitroglycerin (Nitrostat) SL tablet 0.4 mg (0.4 mg SubLINGual Given 10/28/24 08) REVAL: As soon as the patient arrived, we placed her on the monitor. She was borderline tachycardic here. I reassured her and told her that her EKG shows nothing acute. We gave her 4 baby aspirin and 1 sublingual nitro for treatment of her symptoms even though she is low risk for any true underlying cardiac issue. On recent visits, she had a chest x-ray within the past couple days that was unremarkable. We did not repeat that. Her D-dimer was negative yesterday. CBC normal. CMP unremarkable except hertotal bili mildly elevated at 1.2. TSH was normal. Initial troponin was normal. Heart rate remains in the 80s. Blood pressure is improved. She is feeling a little bit better. Repeat troponin will be drawn. I do not feel as though any other labs or imaging studies were initially indicated. I did tell her however that we should not send her home today. This is the third visit for the same problem and she continues to be very symptomatic as a result. She is agreeable with the plan and prefers to go to [facility]. I did message the hospitalist. We are awaiting cardiology input. The plan is to transfer her to [facility] for further admission and treatment. Patient was ultimately accepted for transfer to the observation unit at [facility] for further evaluation. CRITICAL CARE TIME None CONSULTS: On-call cardiology service PROCEDURES: Unless otherwise noted below, none FINAL IMPRESSION 1. Chest pain, unspecified type 2. Tachycardia DISPOSITION Observation 10/28/2024 09:36:18 AM PATIENT REFERRED TO: No follow-up provider specified. DISCHARGE MEDICATIONS: New Prescriptions No medications on file (Comment: Please note this report has been produced using speech recognition software and may contain errors related to that system including errors in grammar, punctuation, and spelling, as well as words and phrases that may be inappropriate. If there are any questions or concerns please feel freeto contact the dictating provider for clarification.) Bernabe Perales MD (electronically signed) Emergency Medicine Provider [1] Past Medical History: Diagnosis Date Anxiety Asthma 09/2016 Breast cyst, left 06/03/2021 Chronic sinusitis 12/2016 [facility] GERD (gastroesophageal reflux disease) 07/2016 EGD per [facility] Hypothyroid 2008 IBS (irritable bowel syndrome) 02/2016 constipation - Colonoscopy per [facility] Migraines Neck pain Palpitations [2] Past Surgical History: Procedure Laterality Date BREAST LUMPECTOMY 08/2024 COLONOSCOPY 02/2016 [facility] TONSILLECTOMY (HISTORICAL) 1999 UPPER GASTROINTESTINAL ENDOSCOPY 11/2016 [facility] [3] Family History Problem Relation Name Age of Onset Ovarian cancer Neg Hx Diabetes Mother 35.00 on insulin at > 50 Lung cancer Maternal Grandfather Diabetes Maternal Cousin Gayle Colon cancer Maternal Grandmother 80.00 No Known Problems Paternal Grandmother Thyroid cancer Maternal Cousin Gayle Pancreatic cancer Mother Breast cancer Neg Hx No Known Problems Paternal Grandfather Other ([id number]) Father Danya 54.00 MVA in 2011 No Known Problems Sister Prostate cancer Maternal Grandfather [4] Social History Socioeconomic History Marital status: Tobacco Use Smoking status: Never Smokeless tobacco: Former Quit date: 04/05/2016 Vaping Use Vaping status: Never Used Substance and Sexual Activity Alcohol use: Not Currently Drug use: No Comment: caffiene: none Sexual activity: Yes Social History Narrative to Emile Nielson) since 07/21. NS or drinker, no children. 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 Social Drivers of Health Financial Resource Strain: Low Risk (04/20/2021) Received from [facility] Overall Financial Resource Strain (CARDIA) Difficulty of Paying Living Expenses: Not hard at all Food Insecurity: No Food Insecurity (10/10/2024) [facility] Hunger Vital Sign Worried About Running Out of Food in the Last Year: Never true Ran Out of Food in the Last Year: Never true Transportation Needs: No Transportation Needs (10/10/2024) Received from [facility] [place] - Transportation In the past 12 months, has lack of transportation kept you from medical appointments or from getting medications?: No In the past 12 months, has lack of transportation kept you from meetings, work, or from getting things needed for daily living?: No Physical Activity: Sufficiently Active (04/20/2021) Received from [facility] Exercise Vital Sign Days of Exercise per Week: 5 days Minutes of Exercise per Session: 30 min Stress: No Stress Concern Present (04/20/2021) Received from [facility] [place] [employer] - Occupational Stress Questionnaire Feeling of Stress : Not at all Social Connections: Moderately Integrated (04/20/2021) Received from [facility] Social Connection and Isolation Panel [NHANES] Frequency of Communication with Friends and Family: More than three times a week Frequency of Social Gatherings with Friends and Family: Twice a week Attends Mosque Services: More than 4 times per year Active Member of Clubs or Organizations: No Attends Club or Organization Meetings: Never Marital Status: Housing Stability: Unknown (10/10/2024) Received from [facility] Housing Stability Vital Sign Unable to Pay for Housing in the Last Year: No Homeless in the Last Year: No Bernabe Perales MD 10/28/24 0936 * Ileana Oliva RN - 10/28/2024 7:37 AM EDT Patient to room 4 with c/o heart rate 170 this morning, and chest pain. V/S obtained, EKG completed, call light within reach. documented in this [facility]09-23-2025 Emergency department Note* Ileana Oliva RN - 10/28/2024 8:40 AM EDT Patient reports her stools have been orange for the last 2 - 3 weeks. [id number] Telephone encounter Note* Telephone Encounter - Leigh Medeiros RN - 10/28/2024 8:27 AM EDT Left a message for patient that Dr Corcoran reviewed and she can take Zoloft he will follow her EKG will see her at [facility] 11-11-24 [id number] Miscellaneous Notes* Telephone Encounter - Leigh Medeiros RN - 10/28/2024 8:27 AM EDT Left a message for patient that Dr Corcoran reviewed and she can take Zoloft he will follow her EKG will see her at [facility] 11-11-24 * Telephone Encounter - WILLARD Do CNP - 10/26/2024 10:28 AM EDT Reviewed note in chart and called patient. Advised concern for this medication and possibility of QT prolongation. EKG in ER did not show evidence of QT prolongation. She has not been seen in our office since February 2023 but has upcoming appointment with Dr. Corcoran in a few weeks. Advised her I will update Dr. Corcoran but that we will be unlikely to provide recommendations until we see her in office. Patient states that she called answering service and hopes to talk to her PCP office regarding this medication and was surprised to find out our office was contacted. I reached out to answering services to see if they can also reach out to her PCP office. * Telephone Encounter - Inga Aguilar RN - 10/26/2024 10:04 AM EDT S: Patient spoke with [facility] nurse regarding ER after visit question B: Onset of symptoms/concern 10/25/2024 A: Patient went to [facility] ED on 10/26/2024 for chest pain. Patient had a HR of 165, left arm pain, heart palpitations, and chest tightness, nauseated. Patient is to follow up with her volumetric weigher thisweek. Patient calling today as she forgot to let the ER know that she started taking sertraline (Zoloft) 25 mg tablets yesterday morning went to ER in the evening. Patient requests to know if she should continue taking the Zoloft. R: Nurse reached out to oncall provider via secure chat. Per Holly BARRON, "I called pt - she states she wanted to talk to PCP office, are you answering service for them as well and cannotify them to call pt too?" Nurse called patient back to discuss. Patient states she also has another volumetric weigher at the [facility] she is seeing. PCP ordered the Zoloft. Nurse reached out to the PCP via secure chat. Per Dr. Rome, "I do suggest taking it. Considering how the last few weeks have been, it could've been a coincidence but she needs to try and take it a few days in a row to see if this is going to persist or not. If it does then she can stop the medicine but try to give it a few days." Nurse reviewed Dr. Rome's directives with patient, patient verbalized understanding. Reason for Disposition [1] Caller has URGENT medicine question about med that PCP or specialist prescribed AND [2] triagerunable to answer question Protocols used: Medication Question [id number] documented in this [facility]SOhio[facility] [id number] Emergency department Note* Ileana Oliva RN - 10/28/2024 8:[address] Perales notified of patient , patient was advised to pump and dump. Patient voiced understanding. [id number] Emergency department Triage note* Ileana Oliva RN - 10/28/2024 7:37 AM EDT Patient to room 4 with c/o heart rate 170 this morning, and chest pain. V/S obtained, EKG completed, call light within reach. [id number] Physician Emergency department Note* Bernabe Perales MD - 10/28/2024 7:37 AM EDT EMERGENCY DEPARTMENT ENCOUNTER Pt Name: Dulce Maria Carty Birthdate 1995 Date of evaluation: 10/28/2024 ED Provider: Bernabe Perales MD CHIEF COMPLAINT Chief Complaint Patient presents with Rapid Heart Rate Chest Pain HISTORY OF PRESENT ILLNESS (Location/Symptom, Timing/Onset, Context/Setting, Quality, Duration, Modifying Factors, Severity) Note limiting factors. I wore appropriate PPE for the entirety of this encounter. HPI Dulce Maria Carty is a 29 y.o. who presents to the emergency department with chief complaint of rapid heart rate and chest pain. The patient has been having intermittent chest pain for the past several days. She says her heart rate has gone up to 170. She said it went up and high this morning. She was able to check her heart rate with a home pulse oximeter. She has pressure and tightness in her chest.She says her jaw hurts. She has felt lightheaded and short of breath with this. She gets numbness and tingling in her fingers. She did see volumetric weigher yesterday. She has an echo and another heart test scheduled coming up soon. She is on metoprolol. Patient said that this woke her up from sleep this morning. She is very concerned because she keeps having these recurrent symptoms and is not sure why. She denies any fevers or chills. No new headaches or visual complaints. No cough or URI symptoms. She has some upper abdominal discomfort though no vomiting or diarrhea. No urinary complaints. Shedenies being . No bruising or swelling. No new leg pain. No localizing numbness or weakness. No other associated complaints. She denies smoke, alcohol drug use. She denies any first-degree relatives with heart problems. Nursing Notes were reviewed. Limitations to history: None Outside historians: None REVIEW OF SYSTEMS Review of Systems Constitutional: Negative for chills and fever. HENT: Negative for sore throat. Eyes: Negative for visual disturbance. Respiratory: Positive for shortness of breath. Negative for cough. Cardiovascular: Positive for chest pain and palpitations. Negative for leg swelling. Gastrointestinal: Positive for abdominal pain. Negative for diarrhea and vomiting. Genitourinary: Negative for dysuria. Musculoskeletal: Negative for arthralgias and back pain. Skin: Negative for color change and rash. Neurological: Positive for light-headedness. Negative for weakness. She complains of paresthesias in both hands more on the left than the right. All other systems reviewed and are negative. Pertinent positives and negatives as per HPI. PAST MEDICAL HISTORY Medical History[1] SURGICAL HISTORY Surgical History[2] CURRENT MEDICATIONS Previous Medications HYDROXYZINE PAMOATE (VISTARIL) 25 MG CAPSULE Take 1 capsule (25 mg) by mouth every 6 hours as needed for anxiety for up to 10 days. MAGNESIUM 300 MG CAPSULE Take by mouth. METOPROLOL SUCCINATE XL (TOPROL-XL) 25 MG 24 HR TABLET 0.5 tablets Every 24 hours. MV-MIN-FE FUM-FA-DHA ( 1 PO) Take by mouth. PROBIOTIC PRODUCT (PROBIOTIC DAILY PO) Take by mouth. SERTRALINE (ZOLOFT) 25 MG TABLET Take 25 mg by mouth Every 24 hours. ALLERGIES Nitrofurantoin, Alprazolam, and Quetiapine FAMILY HISTORY Family History[3] SOCIAL HISTORY Social History[4] SCREENINGS [place] Coma Scale Best Eye Response: Spontaneous Best Verbal Response: Oriented Best Motor Response: Follows commands Tanisha Coma Scale Score: 15 PHYSICAL EXAM ED Triage Vitals [10/28/24 0740] Temp Heart Rate Resp BP 36.8 C (98.2 F) 104 16 (!) 138/107 SpO2 Temp src Heart Rate Source Patient Position 100 % -- Monitor -- BP Location FiO2 (%) -- -- Physical Exam Vitals and nursing note reviewed. Constitutional: Appearance: Normal appearance. She is well-developed. She is not toxic-appearing. Comments: Patient appears uncomfortable and somewhat concerned although nontoxic. HENT: Head: Normocephalic and atraumatic. Right Ear: External ear normal. Left Ear: External ear normal. Nose: Nose normal. Mouth/Throat: Mouth: Mucous membranes are moist. Pharynx: Oropharynx is clear. Eyes: Extraocular Movements: Extraocular movements intact. Conjunctiva/sclera: Conjunctivae normal. Pupils: Pupils are equal, round, and reactive to light. Cardiovascular: Rate and Rhythm: Regular rhythm. Tachycardia present. Heart sounds: Normal heart sounds. No murmur heard. Comments: Patient is mildly tachycardic. Pulmonary: Effort: Pulmonary effort is normal. No respiratory distress. Breath sounds: No wheezing, rhonchi or rales. Chest: Chest wall: No tenderness. Abdominal: General: Bowel sounds are normal. Palpations: Abdomen is soft. There is no mass. Tenderness: There is no abdominal tenderness. There is no guarding or rebound. Hernia: No hernia is present. Musculoskeletal: General: No swelling or tenderness. Normal range of motion. Cervical back: Normal range of motion and neck supple. Right lower leg: No edema. Left lower leg: No edema. Skin: General: Skin is warm and dry. Neurological: General: No focal deficit present. Mental Status: She is alert and oriented to person, place, and time. GCS: GCS eye subscore is 4. GCS verbal subscore is 5. GCS motor subscore is 6. Cranial Nerves: Cranial nerves 2-12 are intact. Sensory: Sensation is intact. Motor: Motor function is intact. Coordination: Coordination is intact. Psychiatric: Mood and Affect: Mood normal. DIAGNOSTIC RESULTS Procedures/EKG: EKG per my interpretation shows a normal sinus rhythm at a rate of 98 with a normal axis. There is no acute ST elevation or ST depression. Intervals are within normal limits otherwise. There were no significant changes compared to prior EKG on file. EKG was reviewed by myself. Physician EKG interpretation can be found in [facility] Interpretation per the Radiologist below, if available at the time of this note: No orders to display ED BEDSIDE ULTRASOUND: Performed by ED Physician - none LABS: Labs Reviewed COMPREHENSIVE METABOLIC PANEL - Abnormal Result Value SODIUM 141 POTASSIUM 3.7 CHLORIDE 106 CARBON DIOXIDE 22 ANION GAP 13 UREA NITROGEN 13 CREATININE 0.82 GLUCOSE 95 CALCIUM 9.4 AST (SGOT) 16 ALT 9 ALKALINE PHOSPHATASE 57 ALBUMIN 4.3 BILIRUBIN, TOTAL 1.2 (*) TOTAL PROTEIN 7.0 eGFR >90.0 HIGH SENSITIVITY TROPONIN, SERIAL BASELINE - Normal Troponin HS Serial Baseline <3 CBC WITH AUTO DIFFERENTIAL - Normal Auto WBC 5.7 RBC 5.00 Hemoglobin 14.3 Hematocrit 41.5 MCV 83.0 MCH 28.6 MCHC 34.5 RDW 12.0 Platelets 195 MPV 9.9 nRBC 0.0 Neutrophils Relative 58.5 Lymphocytes Relative 32.9 Monocytes Relative 7.2 Eosinophils Relative 0.9 Basophils Relative 0.5 Immature Grans % 0.0 Neutrophils Absolute 3.3 Lymphocytes Absolute 1.9 Monocytes Absolute 0.4 Eosinophils Absolute 0.1 Basophils Absolute 0.0 Immature Grans Absolute 0.0 THYROID STIMULATING HORMONE - Normal THYROID STIMULATING HORMONE 1.22 HIGH SENSITIVITY TROPONIN, SERIAL, SECOND TEST COMPLETE URINALYSIS WITH REFLEX TO CULTURE HCG QUALITATIVE URINE All other labs were within normal range or not returned as of this dictation. EMERGENCY DEPARTMENT COURSE and DIFFERENTIAL DIAGNOSIS/MDM: Vitals: Vitals: 10/28/24 0816 10/28/24 0820 10/28/24 0824 10/28/24 0850 BP: 110/58 133/85 (!) 142/84 115/76 Pulse: 107 104 88 84 Resp: 16 Temp: SpO2: 100% 100% 100% 100% Weight: Height: Diagnoses as of 10/28/24 0936 Chest pain, unspecified type Tachycardia The patient presented with chief complaint of chest pain and palpitations. The differential diagnosis associated with this patient's presentation includes arrhythmia, electrolyte abnormality, unlikely dehydration, possible thyroid issue, possible ACS, unlikely CHF, unlikelyPE or dissection, unlikely sepsis or bacteremia. Our workup consisted of ordering/reviewing: EKG and lab work. Patient is in agreement with this plan. Medications aspirin chewable tablet 324 mg (324 mg Oral Given 10/28/24 0801) nitroglycerin (Nitrostat) SL tablet 0.4 mg (0.4 mg SubLINGual Given 10/28/24 0803) REVAL: As soon as the patient arrived, we placed her on the monitor. She was borderline tachycardic here. I reassured her and told her that her EKG shows nothing acute. We gave her 4 baby aspirin and 1 sublingual nitro for treatment of her symptoms even though she is low risk for any true underlying cardiac issue. On recent visits, she had a chest x-ray within the past couple days that was unremarkable. We did not repeat that. Her D-dimer was negative yesterday. CBC normal. CMP unremarkable except hertotal bili mildly elevated at 1.2. TSH was normal. Initial troponin was normal. Heart rate remains in the 80s. Blood pressure is improved. She is feeling a little bit better. Repeat troponin will be drawn. I do not feel as though any other labs or imaging studies were initially indicated. I did tell her however that we should not send her home today. This is the third visit for the same problem and she continues to be very symptomatic as a result. She is agreeable with the plan and prefers to go to [facility]. I did message the hospitalist. We are awaiting cardiology input. The plan is to transfer her to [facility] for further admission and treatment. Patient was ultimately accepted for transfer to the observation unit at [facility] for further evaluation. CRITICAL CARE TIME None CONSULTS: On-call cardiology service PROCEDURES: Unless otherwise noted below, none FINAL IMPRESSION 1. Chest pain, unspecified type 2. Tachycardia DISPOSITION Observation 10/28/2024 09:36:18 AM PATIENT REFERRED TO: No follow-up provider specified. DISCHARGE MEDICATIONS: New Prescriptions No medications on file (Comment: Please note this report has been produced using speech recognition software and may contain errors related to that system including errors in grammar, punctuation, and spelling, as well as words and phrases that may be inappropriate. If there are any questions or concerns please feel freeto contact the dictating provider for clarification.) Bernabe Perales MD (electronically signed) Emergency Medicine Provider [1] Past Medical History: Diagnosis Date Anxiety Asthma 09/2016 Breast cyst, left 06/03/2021 Chronic sinusitis 12/2016 ENT eval per [facility] GERD (gastroesophageal reflux disease) 07/2016 EGD per [facility] Hypothyroid 2008 IBS (irritable bowel syndrome) 02/2016 constipation - Colonoscopy per [facility] Migraines Neck pain Palpitations [2] Past Surgical History: Procedure Laterality Date BREAST LUMPECTOMY 08/2024 COLONOSCOPY 02/2016 [facility] TONSILLECTOMY (HISTORICAL) 1999 UPPER GASTROINTESTINAL ENDOSCOPY 11/2016 [facility] [3] Family History Problem Relation Name Age of Onset Ovarian cancer Neg Hx Diabetes Mother 35.00 on insulin at > 50 Lung cancer Maternal Grandfather Diabetes Maternal Cousin Gayle Colon cancer Maternal Grandmother 80.00 No Known Problems Paternal Grandmother Thyroid cancer Maternal Cousin Gayle Pancreatic cancer Mother Breast cancer Neg Hx No Known Problems Paternal Grandfather Other ([id number]) Father Danya 54.00 MVA in 2012 No Known Problems Sister Prostate cancer Maternal Grandfather [4] Social History Socioeconomic History Marital status: Tobacco Use Smoking status: Never Smokeless tobacco: Former Quit date: 04/05/2016 Vaping Use Vaping status: Never Used Substance and Sexual Activity Alcohol use: Not Currently Drug use: No Comment: caffiene: none Sexual activity: Yes Social History Narrative to Emile Nielson) since 07/21. NS or drinker, no children. 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 Social Drivers of Health Financial Resource Strain: Low Risk (04/20/2021) Received from [facility] Overall Financial Resource Strain (CARDIA) Difficulty of Paying Living Expenses: Not hard at all Food Insecurity: No Food Insecurity (10/10/2024) Received from [facility] Hunger Vital Sign Worried About Running Out of Food in the Last Year: Never true Ran Out of Food in the Last Year: Never true Transportation Needs: No Transportation Needs (10/10/2024) Received from [facility] PRAPARE - Transportation In the past 12 months, has lack of transportation kept you from medical appointments or from getting medications?: No In the past 12 months, has lack of transportation kept you from meetings, work, or from getting things needed for daily living?: No Physical Activity: Sufficiently Active (04/20/2021) Received from [facility] Exercise Vital Sign Days of Exercise per Week: 5 days Minutes of Exercise per Session: 30 min Stress: No Stress Concern Present (04/20/2021) Received from [facility] [place] [employer] Occupational [employer] - Occupational Stress Questionnaire Feeling of Stress : Not at all Social Connections: Moderately Integrated (04/20/2021) Received from [facility] Social Connection and Isolation Panel [NHANES] Frequency of Communication with Friends and Family: More than three times a week Frequency of Social Gatherings with Friends and Family: Twice a week Attends Mosque Services: More than 4 times per year Active Member of Clubs or Organizations: No Attends Club or Organization Meetings: Never Marital Status: Housing Stability: Unknown (10/10/2024) Received from [facility] Housing Stability Vital Sign Unable to Pay for Housing in the Last Year: No Homeless in the Last Year: No Bernabe Perales MD 10/28/24 0936 [id number] [address] [place] [address] OFFICE VISIT Date of Service: 10/27/24 MR#: [id number] Acct: [id number] Name: DULCE MARIA CARTY Rep #: [id number] : 1995 Provider: DAISY Catalan Age/Sex: 29/F Location: [facility] Status: Signed HPI HPI History of Present Illness Details: Dulce Maria Carty is a 29-year-old female who presents today for a cardiovascular hospital follow-up visit. She states she has been to the emergency room in [place] twice now for fast heart rate. Patient was admitted to [facility] 10/09 - 10/11/2024 after presenting with recurrent episodes of palpitations, lightheadedness and near syncope and abdominal pain. Per documentation, she has been seen for this in the past. MRI head and neck and EEG were negative and it is documented that she had a negative brain CT, CT angiogram of the chest, blood work and EKG in the [facility]. [facility] buspirone and Pristiq and her metoprolol was discontinued. She was seen on 10/15/2024 in the office for noticing/feeling described as an adrenaline francois. She felt her heart rate racing and not resolving. A weeks prior, she noticed neck and head pain. She noticed a burst of head pressure fromneck to her head when she was on vacation in [place]. She was evaluated in the ED there and reports negative head CT. She had a couple of episodes of stomach painwith rapid heart rates and shaking. She returned home, experienced an episode of near syncope and presented to [facility]. She reports blood work, EKG and work-up wasn't significant. She has purchased a watch for monitoring her heart rate. She reports ongoing neck pressure/tightness, flushin g, muscle weakness, tachycardia, and some shortness of breath. She reports the only change recentlyis that she is weaning her 1 year old from breast feeding. Overall, she feels her symptoms are better as she is not noticing them as many times throughout the day. She continues to notice them daily,usually in the morning. She had a lumpectomy about 8 weeks ago and was followed by fluid/milk removal around the time her symptoms started. Her metoprolol was discontinued at that visit, a 48 hour Holter monitor and tilt table were ordered. They have not been scheduled yet. Patient presented to the emergency room on 10/27/2024 for complaints of palpitations. In the emergency room note, it noted patient being in the emergency room the day before with complaints of palpitations. Patient reportedthat her heart rate was 165 and was still tachycardic around 150 on arrival to the emergency room. She had complaints of chest tightness into the neck and shortness of breath. Labs were all noted to be normal, with a her potassium level slightly low at 3.4. By the time they were able to connect her to an EKG,her heart rate had slowed down to the low 100s, and was in sinus tac hycardia without ischemia or arrhythmias. Her metoprolol was restarted, and she was discharged and instructed to follow-up with cardiology. From a cardiac standpoint, the patient is doing well. She does feel a racing sensation. Along with this feeling, she does have tightness feeling in her neck and jaw. She does acknowledge SOB with episodes of racing sensation, and with activity. She denies Orthopnea, and PND. She does not have bleeding issues; noblood in urine, stool, or nosebleeds. She does acknowledge fatigue. She denies myalgias, or claudication. She does not have edema, or sudden weight gain. She does acknowledge lightheadedness-intermittent, more with palpitations. She does acknowledge constant dizziness. She denies syncopal or near syncopal episodes, and headaches. Intake Vital Signs 10/15/24 07:47 10/27/24 10:55 Height 5 ft 6 in 5 ft 6 in Weight: 142 lb BMI 22.8 BP 115/76 Blood Pressure Location Lt brachial Position Sitting Respiration 18 Pulse 95 Pulse Source Monitor Pulse Oximetry (%) 96 Intake Visit Reasons: S/P [facility] 10/26 Home Care Administrator Required: No Is patient in pain?: No Allergies nitrofurantoin Allergy (Severe, Verified 10/27/24 14:05) difficulty breathing alprazolam Adverse Reaction (Intermediate, Verified 10/27/24 14:05) PT UNSURE OF REACTION quetiapine Adverse Reaction (Intermediate, Verified 10/27/24 14:05) PT UNSURE OF REACTION Medications ?Medication ?Instructions ?Recorded ?Confirmed ?Type L. crispatus, gasseri, jensenii, 2 tab PO DAILY PRN 10/27/24 History rhamnosus 12 billion cell chew tablet (Culturelle Probiotic) docosahexaenoic acid 200 mg 200 mg PO DAILY PRN 10/27/24 History capsule ( DHA) metoprolol succinate 25 mg 25 mg PO QDAY 10/27/2410/07 History tablet,extended release 24 hr sertraline 25 mg tablet (Zoloft) 25 mg PO QDAY 5 10/27/24 History Ejection fraction %: 60 Have you fallen in the past year?: No PFSH Medical History Adenoma of breast Thyroid disease Migraine headache History of Holter monitoring History of echocardiogram Cardiology follow-up encounter Vasovagal near syncope IBS (irritable bowel syndrome) GERD (gastroesophageal reflux disease) Diseases of the circulatory system complicating , unspecified trimester Supraventricular tachycardia, unspecified Supraventricular tachycardia during Heart palpitations History of kidney disease Hypothyroidism affecting Normal endoscopic ultrasound of upper gastrointestinal tract Seasonal allergies Supervision of high-risk Infertility associated with anovulation Surgical History S/P lumpectomy, left breast Hx of tonsillectomy [place] teeth extracted History of tonsillectomy Family History Grandmother Colon cancer Diabetes Mother Diabetes Pancreatic cancer Social History adopted: No household members: spouse and children number of children: 2 current occupational status: unemployed current occupation: [employer] current occupational exposures/hazards: No pets and animals: Yes (NOT MANAGING LITTERBOX) pets and animals: cat(s), dog(s), horse(s) and farm animals history of recent travel: No sexually active: Yes Smoking Status: Never smoker alcohol intake: never substance use type: does not use diet: other well-balanced diet: daily or most days caffeine: No eating out: 1-3 times/week during the past year weight has: remained stable what type of physical activity do you participate in: weight training frequency: 5-6 times per week duration: 15-30 minutes/day gale/restoration: Anglican seatbelt use: always do you feel safe at home: Yes additional social history: - [facility] ROS Const Const: Positive for fatigue; Negative for weakness, headache(s) or frequent falls Eyes Eyes: Negative for blurry vision ENT ENT: Positive for dizziness; Negative for headache(s) or Nosebleed/epistaxis Cardio Chest Pain: Yes Frequency: daily Character: tightness Location: other (up into her neck and jaw) Palpitations: Yes feels like its: fast Muscle aches with walking: None Resp Respiratory: Positive for SOB with activity and SOB at rest; Negative for SOB orthopnea\\SOB lying down GI GI: Negative nausea, vomiting, heartburn, bright, red blood in stools or black,tarry stools : Negative for hematuria Neuro Neuro: Positive for dizziness and lightheadedness; Negative for near syncope, syncope, frequent falls, headache(s), weakness or blurry vision Endo Endo: Positive for fatigue Cardiology Exam Const Appearance: cooperative, comfortable, no acute distress and well developed; Negative diaphoretic or ill appearing Nutritional Appearance: average body habitus Orientation: alert and oriented x3 Head Head: normal to inspection, normocephalic and atraumatic Ears: hearing grossly normal bilaterally Nose: external nose normal and Negative epistaxis Face and Sinus: face symmetric Eyes General: appearance normal, both eyes and all related structures Eyelids: eyelids normal Conjunctivae: conjunctivae normal; Negative scleral icterus EOM: EOM intact bilaterally Neck Neck: normal visual inspection and no JVD Carotids: normal carotid upstroke; Negative bruit Neck Mass: Negative Neck mass Chest Chest inspection: normal inspection of the chest and normal respiratory effort; Negative respiratory distress, audible wheezes or tachypneic Auscultation: Bilateral: Clear to Auscultation Cardio Rate: regular rate Rhythm: regular rhythm; Negative ectopic beats Heart sounds: S1 normal and S2 normal; Negative rub, gallop or murmur GI GI: normal to inspection and soft Neuro General: patient alert, patient awake, patient oriented x3 and moves all extremities Skin Skin: no rashes or lesions noted Extremities Pulses: Normal: Right Posterior Tibial Pulse, Left Posterior Tibial Pulse, RightRadial Pulse and Left Radial Pulse Lower Extremity Edema: None: Bilateral Psych Psychological: normal affect Supplemental Info Supplemental Information [facility] Left ventricle: The cavity size is small. Wall thickness is normal. Systolic function is normal. The estimated ejection fraction is 55-60%. Wall motion is normal; there are no regional wall motion abnormalities. Left ventricular diastolic function parameters are normal. Echocardiogram 08/2023: Normal LV size. Left ventricular systolic function is normal. The left ventricular ejection fraction is 65 %. Stage 1 diastolic dysfunction. Structurally normal valves. Diagnostics: Electrocardiogram Echocardiogram Abdomen Ultrasound Past Visits: Cardiology Visit Today Assessment and Plan Assessment and Plan (1) Heart palpitations: Status: Acute Plan: Patient acknowledges palpitations. She describes this as a racing sensation, with tightness into her neck and jaw. Her EKG from today demonstrates normal sinus rhythm with heart rate of 83 bpm. Her most recent labs from 10/27/2024 werereviewed, and noted to be within normal limits. Would like to obtain a 14- day event monitor to further assess patient's heart rate and rhythm. Depending on results, further recommendations will be made. At this time, she was asked to continue metoprolol succinate 25 mg daily. She is scheduled to see Dr. Corcoran on November 11; she was instructed to keep this appointment. She will continue to monitor for any concerning/worsening symptoms. (2) SOB (shortness of breath): Status: Acute Plan: Patient acknowledges shortness of breath. Would like to obtain an echocardiogram to assess her leftventricular systolic function, and valves. Depending on results, further recommendations will be made. Orders: Orders 12 Lead EKG performed by [facility] Today R00.2 - Palpitations Echo Complete Today R00.2 - Palpitations, R06.02 - Shortness of breath 14 Day Event Recorder Preventi Today R00.2 - Palpitations Plan Details Additional Comments: Patient will follow-up in 6-8 weeks, or sooner if needed. Thank you for allowing me to participate in the care of your patient. Please donot hesitate to callif any issues arise. This note was generated using a voice recognition system and there may be incorrect words, spelling, or punctuation that were not noted when reviewing theoffice note prior to saving. Portions of this documentation were copied and pasted from previous office visitnotes to provide cohesive continuity of the history. The note has been reviewed,edited, and updated, as necessary. Follow Up: 6-8 Weeks (PATIENT TRANSITION SPECIALIST/PA) Coding Level of Care Code Off vis,est,level 4 Diagnoses Heart palpitations R00.2 SOB (shortness of breath) R06.02 Coding Level of Care Code Off vis,est,level 4 Diagnoses Heart palpitations R00.2 SOB (shortness of breath) R06.02 Clinical Quality Measures Falls Risk Screening/Assistive Devices Have you fallen in the past year?: No Cardiac Ejection fraction %: 60 10/27/24 1626 PATIENT TRANSITION SPECIALIST PATIENT TRANSITION SPECIALISTLupeC> Date _ Connie VILLA Cosigner Signature: Date (if applicable) CC: ~ [facility]09-22-2025 Progress note Author Connie Catalan [facility] Services Note Date/Time October 27, 2024 2:19pm [facility] [place] [facility] [address] [place] [address] OFFICE VISIT Date of Service: 10/27/24 MR#: [id number] Acct: [id number] Name: DULCE MARIA CARTY ELIZ Rep #: [id number] : 1995 Provider: DAISY Catalan Age/Sex: 29/F Location: [facility] Status: Signed HPI HPI History of Present Illness Details: Dulce Maria Carty is a 29-year-old female who presents today for a cardiovascular hospital follow-up visit. She states she has been to the emergency room in [place] twice now for fast heart rate. Patient was admitted to [place] 10/09 - 10/11/2024 after presenting with recurrent episodes of palpitations, lightheadedness and near syncope and abdominal pain. Per documentation, she has been seen for this in the past. MRI head and neck and EEG were negative and it is documented that she had a negative brain CT, CT angiogram of the chest, blood work and EKG in the [facility]. [facility] starting buspirone and Pristiq and her metoprolol was discontinued. She was seen on 10/15/2024 in the office for noticing/feeling described as an adrenaline francois. She felt her heart rate racing and not resolving. A weeks prior, she noticed neck and head pain. She noticed a burst of head pressure fromneck to her head when she was on vacation in [place]. She was evaluated in the ED there and reports negative head CT. She had a couple of episodes of stomach pain with rapid heart rates and shaking. She returned home, experienced an episode of near syncope and presented to [facility]. She reports blood work, EKG and work-up wasn't significant. She has purchased a watch for monitoring her heart rate. She reports ongoing neck pressure/tightness, flushing, muscle weakness, tachycardia, and some shortness of breath. She reports the only change recently is that she is weaning her 1 year old from breast feeding. Overall, she feels her symptoms are better as she is not noticing them as many times throughout the day. She continues to notice them daily, usually in the morning. She had a lumpectomy about 8 weeks ago and was followed by fluid/milk removal around the time her symptoms started. Her metoprolol was discontinued at that visit, a 48 hour Holter monitor and tilt table were ordered. They have not been scheduled yet. Patient presented to the emergency room on 10/27/2024 for complaints of palpitations. In the emergency room note, it noted patient being in the emergency room the day before with complaints of palpitations. Patient reportedthat her heart rate was 165 and was still tachycardic around 150 on arrival to the emergency room. She had complaints of chest tightness into the neck and shortness of breath. Labs were all noted to be normal, with a her potassium level slightly low at 3.4. By the time they were able to connect her to an EKG,her heart rate had slowed down to the low 100s, and was in sinus tachycardia without ischemia or arrhythmias. Her metoprolol was restarted, and she was discharged and instructed to follow-up with cardiology. From a cardiac standpoint, the patient is doing well. She does feel a racing sensation. Along with this feeling, she does have tightness feeling in her neck and jaw. She does acknowledge SOB with episodes of racing sensation, and with activity. She denies Orthopnea, and PND. She does not have bleeding issues; noblood in urine, stool, or nosebleeds. She does acknowledge fatigue. She denies myalgias, or claudication. She does not have edema, or sudden weight gain. She does acknowledge lightheadedness-intermittent, more with palpitations. She does acknowledge constant dizziness. She denies syncopal or near syncopal episodes, and headaches. Intake Vital Signs 10/15/24 07:47 10/27/24 10:55 Height 5 ft 6 in 5 ft 6 in Weight: 142 lb BMI 22.8 BP 115/76 Blood Pressure Location Lt brachial Position Sitting Respiration 18 Pulse 95 Pulse Source Monitor Pulse Oximetry (%) 96 Intake Visit Reasons: S/P [facility] 10/26 Home Care Administrator Required: No Is patient in pain?: No Allergies nitrofurantoin Allergy (Severe, Verified 10/27/24 14:05) difficulty breathing alprazolam Adverse Reaction (Intermediate, Verified 10/27/24 14:05) PT UNSURE OF REACTION quetiapine Adverse Reaction (Intermediate, Verified 10/27/24 14:05) PT UNSURE OF REACTION Medications ?Medication ?Instructions ?Recorded ?Confirmed ?Type L. crispatus, gasseri, jensenii, 2 tab PO DAILY PRN 10/27/24 History rhamnosus 12 billion cell chew tablet (Culturelle Probiotic) docosahexaenoic acid 200 mg 200 mg PO DAILY PRN 10/27/24 History capsule ( DHA) metoprolol succinate 25 mg 25 mg PO QDAY 10/27/2410/07 History tablet,extended release 24 hr sertraline 25 mg tablet (Zoloft) 25 mg PO QDAY 5 10/27/24 History Ejection fraction %: 60 Have you fallen in the past year?: No PFSH Medical History Adenoma of breast Thyroid disease Migraine headache History of Holter monitoring History of echocardiogram Cardiology follow-up encounter Vasovagal near syncope IBS (irritable bowel syndrome) GERD (gastroesophageal reflux disease) Diseases of the circulatory system complicating , unspecified trimester Supraventricular tachycardia, unspecified Supraventricular tachycardia during Heart palpitations History of kidney disease Hypothyroidism affecting Normal endoscopic ultrasound of upper gastrointestinal tract Seasonal allergies Supervision of high-risk Infertility associated with anovulation Surgical History S/P lumpectomy, left breast Hx of tonsillectomy [place] teeth extracted History of tonsillectomy Family History Grandmother Colon cancer Diabetes Mother Diabetes Pancreatic cancer Social History adopted: No household members: spouse and children number of children: 2 current occupational status: unemployed current occupation: [employer] current occupational exposures/hazards: No pets and animals: Yes (NOT MANAGING LITTERBOX) pets and animals: cat(s), dog(s), horse(s) and farm animals history of recent travel: No sexually active: Yes Smoking Status: Never smoker alcohol intake: never substance use type: does not use diet: other well-balanced diet: daily or most days caffeine: No eating out: 1-3 times/week during the past year weight has: remained stable what type of physical activity do you participate in: weight training frequency: 5-6 times per week duration: 15-30 minutes/day gale/restoration: Anglican seatbelt use: always do you feel safe at home: Yes additional social history: - [facility] ROS Const Const: Positive for fatigue; Negative for weakness, headache(s) or frequent falls Eyes Eyes: Negative for blurry vision ENT ENT: Positive for dizziness; Negative for headache(s) or Nosebleed/epistaxis Cardio Chest Pain: Yes Frequency: daily Character: tightness Location: other (up into her neck and jaw) Palpitations: Yes feels like its: fast Muscle aches with walking: None Resp Respiratory: Positive for SOB with activity and SOB at rest; Negative for SOB orthopnea\\SOB lying down GI GI: Negative nausea, vomiting, heartburn, bright, red blood in stools or black,tarry stools : Negative for hematuria Neuro Neuro: Positive for dizziness and lightheadedness; Negative for near syncope, syncope, frequent falls, headache(s), weakness or blurry vision Endo Endo: Positive for fatigue Cardiology Exam Const Appearance: cooperative, comfortable, no acute distress and well developed; Negative diaphoretic or ill appearing Nutritional Appearance: average body habitus Orientation: alert and oriented x3 Head Head: normal to inspection, normocephalic and atraumatic Ears: hearing grossly normal bilaterally Nose: external nose normal and Negative epistaxis Face and Sinus: face symmetric Eyes General: appearance normal, both eyes and all related structures Eyelids: eyelids normal Conjunctivae: conjunctivae normal; Negative scleral icterus EOM: EOM intact bilaterally Neck Neck: normal visual inspection and no JVD Carotids: normal carotid upstroke; Negative bruit Neck Mass: Negative Neck mass Chest Chest inspection: normal inspection of the chest and normal respiratory effort; Negative respiratory distress, audible wheezes or tachypneic Auscultation: Bilateral: Clear to Auscultation Cardio Rate: regular rate Rhythm: regular rhythm; Negative ectopic beats Heart sounds: S1 normal and S2 normal; Negative rub, gallop or murmur GI GI: normal to inspection and soft Neuro General: patient alert, patient awake, patient oriented x3 and moves all extremities Skin Skin: no rashes or lesions noted Extremities Pulses: Normal: Right Posterior Tibial Pulse, Left Posterior Tibial Pulse, RightRadial Pulse and Left Radial Pulse Lower Extremity Edema: None: Bilateral Psych Psychological: normal affect Supplemental Info Supplemental Information Echocardiogram 10/13/16 ([facility]) Summary Left ventricle: The cavity size is small. Wall thickness is normal. Systolic function is normal. The estimated ejection fraction is 55-60%. Wall motion is normal; there are no regional wall motion abnormalities. Left ventricular diastolic function parameters are normal. Echocardiogram 08/2023: Normal LV size. Left ventricular systolic function is normal. The left ventricular ejection fraction is 65 %. Stage 1 diastolic dysfunction. Structurally normal valves. Diagnostics: Electrocardiogram Echocardiogram Abdomen Ultrasound Past Visits: Cardiology Visit Today Assessment and Plan Assessment and Plan (1) Heart palpitations: Status: Acute Plan: Patient acknowledges palpitations. She describes this as a racing sensation, with tightness into her neck and jaw. Her EKG from today demonstrates normal sinus rhythm with heart rate of 83 bpm. Her most recent labs from 10/27/2024 werereviewed, and noted to be within normal limits. Would like to obtain a 14-day event monitor to further assess patient's heart rate and rhythm. Depending on results, further recommendations will be made. At this time, she was asked to continue metoprolol succinate 25 mg daily. She is scheduled to see Dr. Corcoran on November 11; she was instructed to keep this appointment. She will continue to monitor for any concerning/worsening symptoms. (2) SOB (shortness of breath): Status: Acute Plan: Patient acknowledges shortness of breath. Would like to obtain an echocardiogram to assess her left ventricular systolic function, and valves. Depending on results, further recommendations will be made. Orders: Orders 12 Lead EKG performed by [facility] Today R00.2 - Palpitations Echo Complete Today R00.2 - Palpitations, R06.02 - Shortness of breath 14 Day Event Recorder Preventi Today R00.2 - Palpitations Plan Details Additional Comments: Patient will follow-up in 6-8 weeks, or sooner if needed. Thank you for allowing me to participate in the care of your patient. Please donot hesitate to call if any issues arise. This note was generated using a voice recognition system and there may be incorrect words, spelling, or punctuation that were not noted when reviewing theoffice note prior to saving. Portions of this documentation were copied and pasted from previous office visitnotes to provide cohesive continuity of the history. The note has been reviewed,edited, and updated, as necessary. Follow Up: 6-8 Weeks (PATIENT TRANSITION SPECIALIST/PA) Coding Level of Care Code Off vis,est,level 4 Diagnoses Heart palpitations R00.2 SOB (shortness of breath) R06.02 Coding Level of Care Code Off vis,est,level 4 Diagnoses Heart palpitations R00.2 SOB (shortness of breath) R06.02 Clinical Quality Measures Falls Risk Screening/Assistive Devices Have you fallen in the past year?: No Cardiac Ejection fraction %: 60 10/27/24 1626 <Electronically signed by Connie VILLA> Date _ Connie Catalan NP, NP-C Cosigner Signature: Date (if applicable) CC: ~ [employer] Work Phone: [phone] Hospital Discharge instructions* Discharge Instructions* Kristen Booker DO - 10/27/2024 3:14 AM EDT Take the Metoprolol that was prescribed to you 12.5mg twice daily and follow up with your volumetric weigher for evaluation of your elevated heart rate. documented in this [facility]09-22-2025 Emergency department Note* Kristen Booker DO - 10/27/2024 1:52 AM EDT EMERGENCY DEPARTMENT ENCOUNTER Pt Name: Dulce Maria Carty Birthdate 1995 Date of evaluation: 10/27/2024 ED Provider: Kristen Booker DO CHIEF COMPLAINT Chief Complaint Patient presents with Rapid Heart Rate HISTORY OF PRESENT ILLNESS (Location/Symptom, Timing/Onset, Context/Setting, Quality, Duration, Modifying Factors, Severity) Note limiting factors. I wore appropriate PPE for the entirety of this encounter. HPI Dulce Maria Carty is a 29 y.o. who presents to the emergency department with chief complaint of palpitations. Patient in the ER yesterday for similar symptoms and woke again tonight with palpitations. Herpulse oximeter showed heart rate of 165 and was still tachycardic around 150 on arrival to the ER. She has chest tightness into the neck and shortness of breath. Is scheduled to see cardiology this week. Nursing Notes were reviewed. Limitations to history: None Outside historians: None REVIEW OF SYSTEMS Review of Systems Pertinent positives and negatives as per HPI. PAST MEDICAL HISTORY Medical History[1] SURGICAL HISTORY Surgical History[2] CURRENT MEDICATIONS Current Discharge Medication List CONTINUE these medications which have NOT CHANGED Details hydrOXYzine pamoate (Vistaril) 25 MG capsule Take 1 capsule (25 mg) by mouth every 6 hours as needed for anxiety for up to 10 days. Qty: 30 capsule, Refills: 0 Magnesium 300 MG capsule Take by mouth. MV-Min-Fe Fum-FA-DHA ( 1 PO) Take by mouth. Probiotic Product (PROBIOTIC DAILY PO) Take by mouth. sertraline (Zoloft) 25 MG tablet Take 25 mg by mouth Every 24 hours. ALLERGIES Nitrofurantoin, Alprazolam, and Quetiapine FAMILY HISTORY Family History[3] SOCIAL HISTORY Social History[4] SCREENINGS PHYSICAL EXAM ED Triage Vitals [10/27/24 0159] Temp Heart Rate Resp BP -- 107 17 (!) 153/98 SpO2 Temp src Heart Rate Source Patient Position 100 % -- Monitor Sitting BP Location FiO2 (%) Right arm -- Physical Exam Vitals and nursing note reviewed. Constitutional: General: She is not in acute distress. Appearance: She is well-developed. She is not ill-appearing or toxic-appearing. HENT: Head: Normocephalic and atraumatic. Nose: Nose normal. Cardiovascular: Rate and Rhythm: Regular rhythm. Tachycardia present. Pulses: Normal pulses. Heart sounds: Normal heart sounds. Pulmonary: Effort: Pulmonary effort is normal. No respiratory distress. Breath sounds: Normal breath sounds. Abdominal: General: There is no distension. Palpations: Abdomen is soft. Tenderness: There is no abdominal tenderness. Musculoskeletal: General: No tenderness. Normal range of motion. Cervical back: Normal range of motion and neck supple. Right lower leg: No edema. Left lower leg: No edema. Skin: General: Skin is warm and dry. Capillary Refill: Capillary refill takes less than 2 seconds. Neurological: General: No focal deficit present. Mental Status: She is alert. Mental status is at baseline. DIAGNOSTIC RESULTS Procedures/EKG: EKG was reviewed by myself. Physician EKG interpretation can be found in [facility] Interpretation per the Radiologist below, if available at the time of this note: No orders to display ED BEDSIDE ULTRASOUND: Performed by ED Physician - none LABS: Labs Reviewed BASIC METABOLIC PANEL - Abnormal Result Value SODIUM 140 POTASSIUM 3.4 (*) CHLORIDE 106 CARBON DIOXIDE 21 (*) UREA NITROGEN 14 CREATININE 0.83 GLUCOSE 115 (*) CALCIUM 9.0 ANION GAP 13 eGFR >90.0 CBC WITH AUTO DIFFERENTIAL - Normal Auto WBC 6.0 RBC 4.83 Hemoglobin 13.9 Hematocrit 40.8 MCV 84.5 MCH 28.8 MCHC 34.1 RDW 11.9 Platelets 188 MPV 10.2 nRBC 0.0 Neutrophils Relative 56.4 Lymphocytes Relative 34.9 Monocytes Relative 6.7 Eosinophils Relative 1.5 Basophils Relative 0.3 Immature Grans % 0.2 Neutrophils Absolute 3.4 Lymphocytes Absolute 2.1 Monocytes Absolute 0.4 Eosinophils Absolute 0.1 Basophils Absolute 0.0 Immature Grans Absolute 0.0 HIGH SENSITIVITY TROPONIN, SERIAL BASELINE - Normal Troponin HS Serial Baseline <3 NT PRO BNP - Normal NT PRO BNP 31 D-DIMER,QUANTITATIVE - Normal D-DIMER, INNOVANCE <0.19 Narrative: Innovance D-Dimer values of <0.50 mg/L FEU can be used in combination with a pre-test probability model (e.g. Well's) to exclude pulmonary embolism (PE) disease, as well as an aid in the diagnosisof deep vein thrombosis (DVT). HIGH SENSITIVITY TROPONIN, SERIAL, SECOND TEST All other labs were within normal range or not returned as of this dictation. EMERGENCY DEPARTMENT COURSE and DIFFERENTIAL DIAGNOSIS/MDM: Vitals: Vitals: 10/27/24 0159 10/27/24313 BP: (!) 153/98 BP Location: Right arm Patient Position: Sitting Pulse: 107 75 Resp: 17 SpO2: 100% Weight: 74.4 kg (164 lb) Height: 1.676 m (5' 6") Diagnoses as of 10/27/24313 Palpitations The patient presented with chief complaint of palpitations. The differential diagnosis associated with this patient's presentation includes SVT, afib, PE. Our workup consisted of ordering/reviewing: labs. Patient is in agreement with this plan. Medications potassium chloride (Klor-Con) packet 40 mEq (has no administration in time range) metoprolol tartrate (Lopressor) tablet 12.5 mg (12.5 mg Oral Given 10/27/24 0225) REVAL: Patient presenting to the ER for palpitations. Her pulse oximeter on her finger was reading 150 on arrival and she was tachycardic on the monitor as well when our pulse ox was placed. By the time we were able to connect an EKG, her heart rate had slowed down to the low 100s. She was in a sinus tachycardia without ischemia or arrhythmias. Dimer negative, low concern for PE. Troponin negative. Per chart review, thyroid was checked recently a couple weeks ago and was normal. Patient and state that she had been on a Holter monitor recently for about 24 hours withoutabnormal activity. They had trialed her Metoprolol but she had not tolerated it so she stopped it. However today patient is willing to restart Metoprolol for these episodes that are likely SVT given her initial heart rate on arrival. Did also discuss possibly using Carvedilol or Cardizem but she has Metoprolol at home already. We also discussed taking an extra dose if she develops these episodes and at what point to return to the ER for evaluation if given symptoms and during of episodes. She will follow up with Cardiology this week for Holter monitoring. CRITICAL CARE TIME CONSULTS: None PROCEDURES: Unless otherwise noted below, none Procedures Patients symptoms are consistent with sepsis, severe sepsis, or septic shock (If yes use ".sepsiscoremeasure"): FINAL IMPRESSION 1. Palpitations DISPOSITION Discharge 10/27/2024 03:12:46 AM PATIENT REFERRED TO: Solange Corcoran MD [address] [address] DISCHARGE MEDICATIONS: Current Discharge Medication List (Comment: Please note this report has been produced using speech recognition software and may contain errors related to that system including errors in grammar, punctuation, and spelling, as well as words and phrases that may be inappropriate. If there are any questions or concerns please feel freeto contact the dictating provider for clarification.) Kristen Booker DO (electronically signed) Emergency Medicine Provider [1] Past Medical History: Diagnosis Date Anxiety Asthma 09/2016 Breast cyst, left 06/03/2021 Chronic sinusitis 12/2016 ENT eval per Anibal GERD (gastroesophageal reflux disease) 07/2016 EGD per Ming Hypothyroid 2009 IBS (irritable bowel syndrome) 02/2016 constipation - Colonoscopy per Ming Migraines Neck pain Palpitations [2] Past Surgical History: Procedure Laterality Date BREAST LUMPECTOMY 08/2024 COLONOSCOPY 02/2016 [place]e TONSILLECTOMY (HISTORICAL) 1999 UPPER GASTROINTESTINAL ENDOSCOPY 11/2016 Ming [3] Family History Problem Relation Name Age of Onset Ovarian cancer Neg Hx Diabetes Mother 35.00 on insulin at > 50 Lung cancer Maternal Grandfather Diabetes Maternal Cousin Gayle Colon cancer Maternal Grandmother 80.00 No Known Problems Paternal Grandmother Thyroid cancer Maternal Cousin Gayle Pancreatic cancer Mother Breast cancer Neg Hx No Known Problems Paternal Grandfather Other ([id number]) Father Danya 54.00 MVA in 2011 No Known Problems Sister Prostate cancer Maternal Grandfather [4] Social History Socioeconomic History Marital status: Tobacco Use Smoking status: Never Smokeless tobacco: Former Quit date: 04/05/2016 Vaping Use Vaping status: Never Used Substance and Sexual Activity Alcohol use: Not Currently Drug use: No Comment: caffiene: none Sexual activity: Yes Social History Narrative to Emile Nielson) since 07/21. NS or drinker, no children. 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 Social Drivers of Health Financial Resource Strain: Low Risk (04/20/2021) Received from [facility] Overall Financial Resource Strain (CARDIA) Difficulty of Paying Living Expenses: Not hard at all Food Insecurity: No Food Insecurity (10/10/2024) Received from [facility] Hunger Vital Sign Worried About Running Out of Food in the Last Year: Never true Ran Out of Food in the Last Year: Never true Transportation Needs: No Transportation Needs (10/10/2024) Received from [facility] PRAPARE - Transportation In the past 12 months, has lack of transportation kept you from medical appointments or from getting medications?: No In the past 12 months, has lack of transportation kept you from meetings, work, or from getting things needed for daily living?: No Physical Activity: Sufficiently Active (04/20/2021) Received from [facility] Exercise Vital Sign Days of Exercise per Week: 5 days Minutes of Exercise per Session: 30 min Stress: No Stress Concern Present (04/20/2021) Re[facility] from [facility] [place] [employer] Occupational Health - Occupational Stress Questionnaire Feeling of Stress : Not at all Social Connections: Moderately Integrated (04/20/2021) Received from [facility] Social Connection and Isolation Panel [NHANES] Frequency of Communication with Friends and Family: More than three times a week Frequency of Social Gatherings with Friends and Family: Twice a week Attends Mosque Services: More than 4 times per year Active Member of Clubs or Organizations: No Attends Club or Organization Meetings: Never Marital Status: Housing Stability: Unknown (10/10/2024) Received from [facility] Housing Stability Vital Sign Unable to Pay for Housing in the Last Year: No Homeless in the Last Year: No Kristen Booker DO 10/27/24 0401 * Zoe Owens RN - 10/27/2024 1:52 AM EDT The patient ambulated to room2. She is complaining of rapid heart rate over 160 on home pulse ox. Per patient she has been having this over the last 4 days. She stated that tonight she has had chest pain and has had elevated heart rate that woke her out of her sleep. EKG obtained during triage. documented in this [facility]09-22-2025 Emergency department Triage note* Zoe Owens RN - 10/27/2024 1:52 AM EDT The patient ambulated to room2. She is complaining of rapid heart rate over 160 on home pulse ox. Per patient she has been having this over the last 4 days. She stated that tonight she has had chest pain and has had elevated heart rate that woke her out of her sleep. EKG obtained during triage. [id number] Emergency department Note* Kristen Booker DO - 10/27/2024 1:52 AM EDT EMERGENCY DEPARTMENT ENCOUNTER Pt Name: Dulce Maria Carty Birthdate 1995 Date of evaluation: 10/27/2024 ED Provider: Kristen Booker DO CHIEF COMPLAINT Chief Complaint Patient presents with Rapid Heart Rate HISTORY OF PRESENT ILLNESS (Location/Symptom, Timing/Onset, Context/Setting, Quality, Duration, Modifying Factors, Severity) Note limiting factors. I wore appropriate PPE for the entirety of this encounter. HPI Dulce Maria Carty is a 29 y.o. who presents to the emergency department with chief complaint of palpitations. Patient in the ER yesterday for similar symptoms and woke again tonight with palpitations. Herpulse oximeter showed heart rate of 165 and was still tachycardic around 150 on arrival to the ER. She has chest tightness into the neck and shortness of breath. Is scheduled to see cardiology this week. Nursing Notes were reviewed. Limitations to history: None Outside historians: None REVIEW OF SYSTEMS Review of Systems Pertinent positives and negatives as per HPI. PAST MEDICAL HISTORY Medical History[1] SURGICAL HISTORY Surgical History[2] CURRENT MEDICATIONS Current Discharge Medication List CONTINUE these medications which have NOT CHANGED Details hydrOXYzine pamoate (Vistaril) 25 MG capsule Take 1 capsule (25 mg) by mouth every 6 hours as needed for anxiety for up to 10 days. Qty: 30 capsule, Refills: 0 Magnesium 300 MG capsule Take by mouth. MV-Min-Fe Fum-FA-DHA ( 1 PO) Take by mouth. Probiotic Product (PROBIOTIC DAILY PO) Take by mouth. sertraline (Zoloft) 25 MG tablet Take 25 mg by mouth Every 24 hours. ALLERGIES Nitrofurantoin, Alprazolam, and Quetiapine FAMILY HISTORY Family History[3] SOCIAL HISTORY Social History[4] SCREENINGS PHYSICAL EXAM ED Triage Vitals [10/27/24 0159] Temp Heart Rate Resp BP -- 107 17 (!) 153/98 SpO2 Temp src Heart Rate Source Patient Position 100 % -- Monitor Sitting BP Location FiO2 (%) Right arm -- Physical Exam Vitals and nursing note reviewed. Constitutional: General: She is not in acute distress. Appearance: She is well-developed. She is not ill-appearing or toxic-appearing. HENT: Head: Normocephalic and atraumatic. Nose: Nose normal. Cardiovascular: Rate and Rhythm: Regular rhythm. Tachycardia present. Pulses: Normal pulses. Heart sounds: Normal heart sounds. Pulmonary: Effort: Pulmonary effort is normal. No respiratory distress. Breath sounds: Normal breath sounds. Abdominal: General: There is no distension. Palpations: Abdomen is soft. Tenderness: There is no abdominal tenderness. Musculoskeletal: General: No tenderness. Normal range of motion. Cervical back: Normal range of motion and neck supple. Right lower leg: No edema. Left lower leg: No edema. Skin: General: Skin is warm and dry. Capillary Refill: Capillary refill takes less than 2 seconds. Neurological: General: No focal deficit present. Mental Status: She is alert. Mental status is at baseline. DIAGNOSTIC RESULTS Procedures/EKG: EKG was reviewed by myself. Physician EKG interpretation can be found in [facility] Interpretation per the Radiologist below, if available at the time of this note: No orders to display ED BEDSIDE ULTRASOUND: Performed by ED Physician - none LABS: Labs Reviewed BASIC METABOLIC PANEL - Abnormal Result Value SODIUM 140 POTASSIUM 3.4 (*) CHLORIDE 106 CARBON DIOXIDE 21 (*) UREA NITROGEN 14 CREATININE 0.83 GLUCOSE 115 (*) CALCIUM 9.0 ANION GAP 13 eGFR >90.0 CBC WITH AUTO DIFFERENTIAL - Normal Auto WBC 6.0 RBC 4.83 Hemoglobin 13.9 Hematocrit 40.8 MCV 84.5 MCH 28.8 MCHC 34.1 RDW 11.9 Platelets 188 MPV 10.2 nRBC 0.0 Neutrophils Relative 56.4 Lymphocytes Relative 34.9 Monocytes Relative 6.7 Eosinophils Relative 1.5 Basophils Relative 0.3 Immature Grans % 0.2 Neutrophils Absolute 3.4 Lymphocytes Absolute 2.1 Monocytes Absolute 0.4 Eosinophils Absolute 0.1 Basophils Absolute 0.0 Immature Grans Absolute 0.0 HIGH SENSITIVITY TROPONIN, SERIAL BASELINE - Normal Troponin HS Serial Baseline <3 NT PRO BNP - Normal NT PRO BNP 31 D-DIMER,QUANTITATIVE - Normal D-DIMER, INNOVANCE <0.19 Narrative: [employer] D-Dimer values of <0.50 mg/L FEU can be used in combination with a pre-test probability model (e.g. Well's) to exclude pulmonary embolism (PE) disease, as well as an aid in the diagnosisof deep vein thrombosis (DVT). HIGH SENSITIVITY TROPONIN, SERIAL, SECOND TEST All other labs were within normal range or not returned as of this dictation. EMERGENCY DEPARTMENT COURSE and DIFFERENTIAL DIAGNOSIS/MDM: Vitals: Vitals: 10/27/24 0159 10/27/24313 BP: (!) 153/98 BP Location: Right arm Patient Position: Sitting Pulse: 107 75 Resp: 17 SpO2: 100% Weight: 74.4 kg (164 lb) Height: 1.676 m (5' 6") Diagnoses as of 10/27/24313 Palpitations The patient presented with chief complaint of palpitations. The differential diagnosis associated with this patient's presentation includes SVT, afib, PE. Our workup consisted of ordering/reviewing: labs. Patient is in agreement with this plan. Medications potassium chloride (Klor-Con) packet 40 mEq (has no administration in time range) metoprolol tartrate (Lopressor) tablet 12.5 mg (12.5 mg Oral Given 10/27/24224) REVAL: Patient presenting to the ER for palpitations. Her pulse oximeter on her finger was reading 150 on arrival and she was tachycardic on the monitor as well when our pulse ox was placed. By the time we were able to connect an EKG, her heart rate had slowed down to the low 100s. She was in a sinus tachycardia without ischemia or arrhythmias. Dimer negative, low concern for PE. Troponin negative. Per chart review, thyroid was checked recently a couple weeks ago and was normal. Patient and state that she had been on a Holter monitor recently for about 24 hours withoutabnormal activity. They had trialed her Metoprolol but she had not tolerated it so she stopped it. However today patient is willing to restart Metoprolol for these episodes that are likely SVT given her initial heart rate on arrival. Did also discuss possibly using Carvedilol or Cardizem but she has Metoprolol at home already. We also discussed taking an extra dose if she develops these episodes and at what point to return to the ER for evaluation if given symptoms and during of episodes. She will follow up with Cardiology this week for Holter monitoring. CRITICAL CARE TIME CONSULTS: None PROCEDURES: Unless otherwise noted below, none Procedures Patients symptoms are consistent with sepsis, severe sepsis, or septic shock (If yes use ".sepsiscoremeasure"): FINAL IMPRESSION 1. Palpitations DISPOSITION Discharge 10/27/2024 03:12:46 AM PATIENT REFERRED TO: Solange Corcoran MD [address] [facility] [address] [id number] DISCHARGE MEDICATIONS: Current Discharge Medication List (Comment: Please note this report has been produced using speech recognition software and may contain errors related to that system including errors in grammar, punctuation, and spelling, as well as words and phrases that may be inappropriate. If there are any questions or concerns please feel freeto contact the dictating provider for clarification.) Kristen Booker DO (electronically signed) Emergency Medicine Provider [1] Past Medical History: Diagnosis Date Anxiety Asthma 09/2016 Breast cyst, left 06/03/2021 Chronic sinusitis 12/2016 ENT eval per [facility] GERD (gastroesophageal reflux disease) 07/2016 EGD per [facility] Hypothyroid 2008 IBS (irritable bowel syndrome) 02/2016 constipation - Colonoscopy per [facility] Migraines Neck pain Palpitations [2] Past Surgical History: Procedure Laterality Date BREAST LUMPECTOMY 08/2024 COLONOSCOPY 02/2016 kalee TONSILLECTOMY (HISTORICAL) 1999 UPPER GASTROINTESTINAL ENDOSCOPY 11/2016 [facility] [3] Family History Problem Relation Name Age of Onset Ovarian cancer Neg Hx Diabetes Mother 35.00 on insulin at > 50 Lung cancer Maternal Grandfather Diabetes Maternal Cousin Gayle Colon cancer Maternal Grandmother 80.00 No Known Problems Paternal Grandmother Thyroid cancer Maternal Cousin Gayle Pancreatic cancer Mother Breast cancer Neg Hx No Known Problems Paternal Grandfather Other ([id number]) Father Danya 54.00 MVA in 2011 No Known Problems Sister Prostate cancer Maternal Grandfather [4] Social History Socioeconomic History Marital status: Tobacco Use Smoking status: Never Smokeless tobacco: Former Quit date: 04/05/2016 Vaping Use Vaping status: Never Used Substance and Sexual Activity Alcohol use: Not Currently Drug use: No Comment: caffiene: none Sexual activity: Yes Social History Narrative to Emile Nielson) since 07/21. NS or drinker, no children. 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 Social Drivers of Health Financial Resource Strain: Low Risk (04/20/2021) Received from [facility] Overall Financial Resource Strain (CARDIA) Difficulty of Paying Living Expenses: Not hard at all Food Insecurity: No Food Insecurity (10/10/2024) Received from [facility] Hunger Vital Sign Worried About Running Out of Food in the Last Year: Never true Ran Out of Food in the Last Year: Never true Transportation Needs: No Transportation Needs (10/10/2024) Received from [facility] PRAPARE - Transportation In the past 12 months, has lack of transportation kept you from medical appointments or from getting medications?: No In the past 12 months, has lack of transportation kept you from meetings, work, or from getting things needed for daily living?: No Physical Activity: Sufficiently Active (04/20/2021) Received from [facility] Exercise Vital Sign Days of Exercise per Week: 5 days Minutes of Exercise per Session: 30 min Stress: No Stress Concern Present (04/20/2021) Received from [facility] [place] [employer] - Occupational Stress Questionnaire Feeling of Stress : Not at all Social Connections: Moderately Integrated (04/20/2021) Received from [facility] Social Connection and Isolation Panel [NHANES] Frequency of Communication with Friends and Family: More than three times a week Frequency of Social Gatherings with Friends and Family: Twice a week Attends Mosque Services: More than 4 times per year Active Member of Clubs or Organizations: No Attends Club or Organization Meetings: Never Marital Status: Housing Stability: Unknown (10/10/2024) Received from [facility] Housing Stability Vital Sign Unable to Pay for Housing in the Last Year: No Homeless in the Last Year: No Kristen Booker DO 10/27/24 0401 [id number] Telephone encounter Note* Telephone Encounter - Holly Roper APRN - SURES[facility] - 10/26/2024 10:28 AM EDT Reviewed note in chart and called patient. Advised concern for this medication and possibility of QT prolongation. EKG in ER did not show evidence of QT prolongation. She has not been seen in our office since February 2023 but has upcoming appointment with Dr. Corcoran in a few weeks. Advised her I will update Dr. Corcoran but that we will be unlikely to provide recommendations until we see her in office. Patient states that she called answering service and hopes to talk to her PCP office regarding this medication and was surprised to find out our office was contacted. I reached out to answering services to see if they can also reach out to her PCP office. [employer] Phone: [phone]) 667-619409-21-2025 Miscellaneous Notes* Telephone Encounter - WILLARD Do CNP - 10/26/2024 10:28 AM EDT Reviewed note in chart and called patient. Advised concern for this medication and possibility of QT prolongation. EKG in ER did not show evidence of QT prolongation. She has not been seen in our office since February 2023 but has upcoming appointment with Dr. Corcoran in a few weeks. Advised her I will update Dr. Corcoran but that we will be unlikely to provide recommendations until we see her in office. Patient states that she called answering service and hopes to talk to her PCP office regarding this medication and was surprised to find out our office was contacted. I reached out to answering services to see if they can also reach out to her PCP office. * Telephone Encounter - Inga Aguilar RN - 10/26/2024 10:04 AM EDT S: Patient spoke with [facility] nurse regarding ER after visit question B: Onset of symptoms/concern 10/25/2024 A: Patient went to [facility] ED on 10/26/2024 for chest pain. Patient had a HR of 165, left arm pain, heart palpitations, and chest tightness, nauseated. Patient is to follow up with her volumetric weigher thisweek. Patient calling today as she forgot to let the ER know that she started taking sertraline (Zoloft) 25 mg tablets yesterday morning went to ER in the evening. Patient requests to know if she should continue taking the Zoloft. R: [facility] secure chat. Per Holly BARRON, "I called pt - she states she wanted to talk to PCP office, are you answering service for them as well and cannotify them to call pt too?" Nurse called patient back to discuss. Patient states she also has another volumetric weigher at the [facility] she is seeing. PCP ordered the Zoloft. Nurse reached out to the PCP via secure chat. Per Dr. Rome, "I do suggest taking it. Considering how the last few weeks have been, it could've been a coincidence but she needs to try and take it a few days in a row to see if this is going to persist or not. If it does then she can stop the medicine but try to give it a few days." Nurse reviewed Dr. Rome's directives with patient, patient verbalized understanding. Reason for Disposition [1] Caller has URGENT medicine question about med that PCP or specialist prescribed AND [2] triagerunable to answer question Protocols used: Medication Question [id number] documented in this [facility]09-21-2025 Telephone encounter Note* Telephone Encounter - Inga Aguilar RN - 10/26/2024 10:04 AM EDT S: Patient spoke with [facility] nurse regarding ER after visit question B: Onset of symptoms/concern 10/25/2024 A: Patient went to [facility] ED on 10/26/2024 for chest pain. Patient had a HR of 165, left arm pain, heart palpitations, and chest tightness, nauseated. Patient is to follow up with her volumetric weigher thisweek. Patient calling today as she forgot to let the ER know that she started taking sertraline (Zoloft) 25 mg tablets yesterday morning went to ER in the evening. Patient requests to know if she should continue taking the Zoloft. R: Nurse [facility] via secure chat. Per Holly BARRON, "I called pt - she states she wanted to talk to PCP office, are you answering service for them as well and cannotify them to call pt too?" Nurse called patient back to discuss. Patient states she also has another volumetric weigher at the [facility] she is seeing. PCP ordered the Zoloft. Nurse reached out to the PCP via secure chat. Per Dr. Rome, "I do suggest taking it. Considering how the last few weeks have been, it could've been a coincidence but she needs to try and take it a few days in a row to see if this is going to persist or not. If it does then she can stop the medicine but try to give it a few days." Nurse reviewed Dr. Rome's directives with patient, patient verbalized understanding. Reason for Disposition [1] Caller has URGENT medicine question about med that PCP or specialist prescribed AND [2] triagerunable to answer question Protocols used: Medication Question [id number] [id number] Hospital Discharge instructions* Discharge Instructions* rKisten Booker DO - 10/26/2024 5:24 AM EDT Call to schedule an appointment with your Glaze Sprayer to follow up regarding your chest pain. Return to the ER for worsening symptoms. documented in this [facility]09-21-2025 Emergency department Triage note* Kezia Rivers RN - 10/26/2024 2:57 AM EDT Pt ambulatory to ED2 with c/o chest pain. Pt states she woke this morning at 0220 with chest pressure/tightness. Her left arm had pain/tingling, and she also felt like her HR was elevated. Pain is rated 4/10 at present. Just started zoloft 10/24/24. EKG performed, pt placed on monitor, call light in reach. [place] [id number] Emergency department Note* Kezia Rivers RN - 10/26/2024 2:57 AM EDT Pt ambulatory to ED2 with c/o chest pain. Pt states she woke this morning at 0220 with chest pressure/tightness. Her left arm had pain/tingling, and she also felt like her HR was elevated. Pain is rated 4/10 at present. Just started zoloft 10/24/24. EKG performed, pt placed on monitor, call light in reach. * Kristen Booker DO - 10/26/2024 2:55 AM EDT EMERGENCY DEPARTMENT ENCOUNTER Pt Name: Dulce Maria Carty Birthdate 1995 Date of evaluation: 10/26/2024 ED Provider: Kristen Booker DO CHIEF COMPLAINT Chief Complaint Patient presents with Chest Pain HISTORY OF PRESENT ILLNESS (Location/Symptom, Timing/Onset, Context/Setting, Quality, Duration, Modifying Factors, Severity) Note limiting factors. I wore appropriate PPE for the entirety of this encounter. HPI Dulce Maria Carty is a 29 y.o. who presents to the emergency department with chief complaint of chest pain. Patient states around 2:20 AM she woke with a pain in her chest and sensation of palpitations. She had pain radiating into the left arm and describes it as a burning sensation. Was feeling nauseated. Patient checked her heart rate on her pulse oximeter and found her to be going about 165. Says that she has recently been working with her PCP and her volumetric weigher regarding chest tightness sensations that she has been experiencing. Has had a recent echocardiogram and Holter monitor and is in the process of setting up another Holter monitor. Has also been experiencing some leg cramping and is w orking with her neurologist for EMG testing. No focal calf swelling. Nursing Notes were reviewed. Limitations to history: None Outside historians: None REVIEW OF SYSTEMS Review of Systems Pertinent positives and negatives as per HPI. PAST MEDICAL HISTORY Medical History[1] SURGICAL HISTORY Surgical History[2] CURRENT MEDICATIONS Discharge Medication List as of 10/26/2024 5:24 AM CONTINUE these medications which have NOT CHANGED Details sertraline (Zoloft) 25 MG tablet Take 25 mg by mouth Every 24 hours., Starting Sun10/24/2024, Historical Med hydrOXYzine pamoate (Vistaril) 25 MG capsule Take 1 capsule (25 mg) by mouth every 6 hours as needed for anxiety for up to 10 days., Starting 10/05/2024, Until Anna 10/23/2024 at 2359, Normal Magnesium 300 MG capsule Take by mouth., Historical Med MV-Min-Fe Fum-FA-DHA ( 1 PO) Take by mouth., Historical Med Probiotic Product (PROBIOTIC DAILY PO) Take by mouth., Historical Med ALLERGIES Nitrofurantoin, Alprazolam, and Quetiapine FAMILY HISTORY Family History[3] SOCIAL HISTORY Social History[4] SCREENINGS HEART Score History: Moderately suspicious ECG: Normal Age: <45 Risk Factors: No known risk factors Troponin: Less than or equal to normal limit HEART Score: 1 PHYSICAL EXAM ED Triage Vitals Temp Heart Rate Resp BP 10/26/2425810/26/2429910/26/2429910/26/24 030 36.7 C (98.1 F) 92 16 (!) 130/92 SpO2 Temp Source Heart Rate Source Patient Position 10/26/2429910/26/2425810/26/24 030 -- 100 % Temporal Monitor BP Location FiO2 (%) -- -- Physical Exam Vitals and nursing note reviewed. Constitutional: General: She is not in acute distress. Appearance: She is well-developed. She is not ill-appearing or toxic-appearing. HENT: Head: Normocephalic and atraumatic. Nose: Nose normal. Eyes: Extraocular Movements: Extraocular movements intact. Neck: Vascular: No JVD. Cardiovascular: Rate and Rhythm: Normal rate and regular rhythm. Pulses: Radial pulses are 2+ on the right side and 2+ on the left side. Dorsalis pedis pulses are 2+ on the right side and 2+ on the left side. Heart sounds: Normal heart sounds. Pulmonary: Effort: Pulmonary effort is normal. No respiratory distress. Breath sounds: Normal breath sounds. Abdominal: Palpations: Abdomen is soft. Tenderness: There is no abdominal tenderness. Musculoskeletal: General: Normal range of motion. Cervical back: Normal range of motion and neck supple. Right lower leg: No tenderness. No edema. Left lower leg: No tenderness. No edema. Skin: General: Skin is warm and dry. Capillary Refill: Capillary refill takes less than 2 seconds. Neurological: General: No focal deficit present. Mental Status: She is alert. Mental status is at baseline. DIAGNOSTIC RESULTS Procedures/EKG: EKG was reviewed by myself. Physician EKG interpretation can be found in [facility] RADIOLOGY (Per Emergency Physician): Interpretation per the Radiologist below, if available at the time of this note: XR chest 1 view Final Result No acute abnormality Report Dictated on Electronically Signed By: Petros Bazan MD Electronically Signed Date/Time: 10/26/2024 3:51 AM EDT ED BEDSIDE ULTRASOUND: Performed by ED Physician - none LABS: Labs Reviewed BASIC METABOLIC PANEL - Abnormal Result Value SODIUM 140 POTASSIUM 3.6 CHLORIDE 107 CARBON DIOXIDE 23 UREA NITROGEN 13 CREATININE 0.83 GLUCOSE 101 (*) CALCIUM 9.0 ANION GAP 10 eGFR >90.0 MAGNESIUM - Normal MAGNESIUM 2.2 Narrative: Higher values can be expected in females during menses. CBC WITH AUTO DIFFERENTIAL - Normal Auto WBC 5.3 RBC 4.75 Hemoglobin 13.7 Hematocrit 40.1 MCV 84.4 MCH 28.8 MCHC 34.2 RDW 12.0 Platelets 175 MPV 10.1 nRBC 0.0 Neutrophils Relative 56.8 Lymphocytes Relative 34.3 Monocytes Relative 6.6 Eosinophils Relative 1.7 Basophils Relative 0.4 Immature Grans % 0.2 Neutrophils Absolute 3.0 Lymphocytes Absolute 1.8 Monocytes Absolute 0.4 Eosinophils Absolute 0.1 Basophils Absolute 0.0 Immature Grans Absolute 0.0 HIGH SENSITIVITY TROPONIN, SERIAL BASELINE - Normal Troponin HS Serial Baseline <3 HIGH SENSITIVITY TROPONIN, SERIAL, SECOND TEST - Normal 2h Troponin HS (Serial 2nd Troponin) <3 All other labs were within normal range or not returned as of this dictation. EMERGENCY DEPARTMENT COURSE and DIFFERENTIAL DIAGNOSIS/MDM: Vitals: Vitals: 10/26/24 0330 10/26/24 0400 10/26/24 0430 10/26/24 0500 BP: 115/82 110/77 116/82 120/88 Pulse: 84 84 78 80 Resp: 18 15 15 17 Temp: TempSrc: SpO2: 100% 100% 100% 100% Weight: Height: Diagnoses as of 10/26/24 0621 Chest pain, unspecified type The patient presented with chief complaint of chest pain. The differential diagnosis associated with this patient's presentation includes ACS, electrolyte abnormality, SVT. Our workup consisted of ordering/reviewing: cardiac labs. Patient is in agreement with this plan. Medications - No data to display REVAL: Patient presenting in the ED for chest pain that woke her from sleep and burning sensation on the left arm. Reportedly heart rate in the 160s at that time but heart rate is in the 90s in the ED. She is hemodynamically stable. Her labs are reassuring and there is low concern for ACS given 2 negativetroponins and a nonischemic EKG. No QTc prolongation or arrhythmias. No anemia or electrolyte abnormalities on labs. Chest x-ray without acute findings. Results discussed with patient and she will follow-up with her volumetric weigher this week for evaluation. Her chest pain that she was experiencing earlier has improved and she now has her baseline neck discomfort that she has been experiencing since she has started being evaluated by cardiology. She was given return precautions. CRITICAL CARE TIME CONSULTS: None PROCEDURES: Unless otherwise noted below, none Procedures Patients symptoms are consistent with sepsis, severe sepsis, or septic shock (If yes use ".sepsiscoremeasure"): FINAL IMPRESSION 1. Chest pain, unspecified type DISPOSITION Discharge 10/26/2024 05:23:18 AM PATIENT REFERRED TO: Solange Corcoran MD [address] [id number] DISCHARGE MEDICATIONS: Discharge Medication List as of 10/26/2024 5:24 AM (Comment: Please note this report has been produced using speech recognition software and may contain errors related to that system including errors in grammar, punctuation, and spelling, as well as words and phrases that may be inappropriate. If there are any questions or concerns please feel freeto contact the dictating provider for clarification.) Kristen Booker DO (electronically signed) Emergency Medicine Provider [1] Past Medical History: Diagnosis Date Anxiety Asthma 09/2016 Breast cyst, left 06/03/2021 Chronic sinusitis 12/2016 E[facility] eval [facility] GERD (gastroesophageal reflux disease) 07/2016 EGD per [facility] Hypothyroid 2009 IBS (irritable bowel syndrome) 02/2016 constipation - Colonoscopy per [facility] Migraines Neck pain Palpitations [2] Past Surgical History: Procedure Laterality Date BREAST LUMPECTOMY 08/2024 COLONOSCOPY 02/2016 [facility] TONSILLECTOMY (HISTORICAL) 1999 UPPER GASTROINTESTINAL ENDOSCOPY 11/2016 [facility] [3] Family History Problem Relation Name Age of Onset Ovarian cancer Neg Hx Diabetes Mother 35.00 on insulin at > 50 Lung cancer Maternal Grandfather Diabetes Maternal Cousin Gayle Colon cancer Maternal Grandmother 80.00 No Known Problems Paternal Grandmother Thyroid cancer Maternal Cousin Gayle Pancreatic cancer Mother Breast cancer Neg Hx No Known Problems Paternal Grandfather Other ([id number]) Father Danya 54.00 MVA in 2011 No Known Problems Sister Prostate cancer Maternal Grandfather [4] Social History Socioeconomic History Marital status: Tobacco Use Smoking status: Never Smokeless tobacco: Former Quit date: 04/05/2016 Vaping Use Vaping status: Never Used Substance and Sexual Activity Alcohol use: Not Currently Drug use: No Comment: caffiene: none Sexual activity: Yes Social History Narrative to Emile Nielson) since 07/21. NS or drinker, no children. 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 Social Drivers of Health Financial Resource Strain: Low Risk (04/20/2021) Received from [facility] Overall Financial Resource Strain (CARDIA) Difficulty of Paying Living Expenses: Not hard at all Food Insecurity: No Food Insecurity (10/10/2024) Received from [facility] Hunger Vital Sign Worried About Running Out of Food in the Last Year: Never true Ran Out of Food in the Last Year: Never true Transportation Needs: No Transportation Needs (10/10/2024) Received from [facility] PRAPARE - Transportation In the past 12 months, has lack of transportation kept you from medical appointments or from getting medications?: No In the past 12 months, has lack of transportation kept you from meetings, work, or from getting things needed for daily living?: No Physical Activity: Sufficiently Active (04/20/2021) Received from [facility] Exercise Vital Sign Days of Exercise per Week: 5 days Minutes of Exercise per Session: 30 min Stress: No Stress Concern Present (04/20/2021) Received from [facility] [place] [employer] Occupational Health - Occupational Stress Questionnaire Feeling of Stress : Not at all Social Connections: Moderately Integrated (04/20/2021) Received from [facility] Social Connection and Isolation Panel [NHANES] Frequency of Communication with Friends and Family: More than three times a week Frequency of Social Gatherings with Friends and Family: Twice a week Attends Mosque Services: More than 4 times per year Active Member of Clubs or Organizations: No Attends Club or Organization Meetings: Never Marital Status: Housing Stability: Unknown (10/10/2024) Received from [facility] Housing Stability Vital Sign Unable to Pay for Housing in the Last Year: No Homeless in the Last Year: No Kristen Booker DO 10/26/24 0621 documented in this [facility]09-21-2025 Physician Emergency department Note* Kristen Booker DO - 10/26/2024 2:55 AM EDT EMERGENCY DEPARTMENT ENCOUNTER Pt Name: Dulce Maria Carty Birthdate 1995 Date of evaluation: 10/26/2024 ED Provider: Kristen Booker DO CHIEF COMPLAINT Chief Complaint Patient presents with Chest Pain HISTORY OF PRESENT ILLNESS (Location/Symptom, Timing/Onset, Context/Setting, Quality, Duration, Modifying Factors, Severity) Note limiting factors. I wore appropriate PPE for the entirety of this encounter. HPI Dulce Maria Carty is a 29 y.o. who presents to the emergency department with chief complaint of chest pain. Patient states around 2:20 AM she woke with a pain in her chest and sensation of palpitations. She had pain radiating into the left arm and describes it as a burning sensation. Was feeling nauseated. Patient checked her heart rate on her pulse oximeter and found her to be going about 165. Says that she has recently been working with her PCP and her volumetric weigher regarding chest tightness sensations that she has been experiencing. Has had a recent echocardiogram and Holter monitor and is in the process of setting up another Holter monitor. Has also been experiencing some leg cramping and is w orking with her neurologist for EMG testing. No focal calf swelling. Nursing Notes were reviewed. Limitations to history: None Outside historians: None REVIEW OF SYSTEMS Review of Systems Pertinent positives and negatives as per HPI. PAST MEDICAL HISTORY Medical History[1] SURGICAL HISTORY Surgical History[2] CURRENT MEDICATIONS Discharge Medication List as of 10/26/2024 5:24 AM CONTINUE these medications which have NOT CHANGED Details sertraline (Zoloft) 25 MG tablet Take 25 mg by mouth Every 24 hours., Starting 10/24/2024, Historical Med hydrOXYzine pamoate (Vistaril) 25 MG capsule Take 1 capsule (25 mg) by mouth every 6 hours as needed for anxiety for up to 10 days., Starting 10/05/2024, Until Anna 10/23/2024 at 2359, Normal Magnesium 300 MG capsule Take by mouth., Historical Med MV-Min-Fe Fum-FA-DHA ( 1 PO) Take by mouth., Historical Med Probiotic Product (PROBIOTIC DAILY PO) Take by mouth., Historical Med ALLERGIES Nitrofurantoin, Alprazolam, and Quetiapine FAMILY HISTORY Family History[3] SOCIAL HISTORY Social History[4] SCREENINGS HEART Score History: Moderately suspicious ECG: Normal Age: <45 Risk Factors: No known risk factors Troponin: Less than or equal to normal limit HEART Score: 1 PHYSICAL EXAM ED Triage Vitals Temp Heart Rate Resp BP 10/26/24 0259 10/26/24 0300 10/26/24 0300 10/26/24 0300 36.7 C (98.1 F) 92 16 (!) 130/92 SpO2 Temp Source Heart Rate Source Patient Position 10/26/24 0300 10/26/24 0259 10/26/24 0300 -- 100 % Temporal Monitor BP Location FiO2 (%) -- -- Physical Exam Vitals and nursing note reviewed. Constitutional: General: She is not in acute distress. Appearance: She is well-developed. She is not ill-appearing or toxic-appearing. HENT: Head: Normocephalic and atraumatic. Nose: Nose normal. Eyes: Extraocular Movements: Extraocular movements intact. Neck: Vascular: No JVD. Cardiovascular: Rate and Rhythm: Normal rate and regular rhythm. Pulses: Radial pulses are 2+ on the right side and 2+ on the left side. Dorsalis pedis pulses are 2+ on the right side and 2+ on the left side. Heart sounds: Normal heart sounds. Pulmonary: Effort: Pulmonary effort is normal. No respiratory distress. Breath sounds: Normal breath sounds. Abdominal: Palpations: Abdomen is soft. Tenderness: There is no abdominal tenderness. Musculoskeletal: General: Normal range of motion. Cervical back: Normal range of motion and neck supple. Right lower leg: No tenderness. No edema. Left lower leg: No tenderness. No edema. Skin: General: Skin is warm and dry. Capillary Refill: Capillary refill takes less than 2 seconds. Neurological: General: No focal deficit present. Mental Status: She is alert. Mental status is at baseline. DIAGNOSTIC RESULTS Procedures/EKG: EKG was reviewed by myself. Physician EKG interpretation can be found in [facility] RADIOLOGY (Per Emergency Physician): Interpretation per the Radiologist below, if available at the time of this note: XR chest 1 view Final Result No acute abnormality Report Dictated on Electronically Signed By: Petros Bazan MD Electronically Signed Date/Time: 10/26/2024 3:51 AM EDT ED BEDSIDE ULTRASOUND: Performed by ED Physician - none LABS: Labs Reviewed BASIC METABOLIC PANEL - Abnormal Result Value SODIUM 140 POTASSIUM 3.6 CHLORIDE 107 CARBON DIOXIDE 23 UREA NITROGEN 13 CREATININE 0.83 GLUCOSE 101 (*) CALCIUM 9.0 ANION GAP 10 eGFR >90.0 MAGNESIUM - Normal MAGNESIUM 2.2 Narrative: Higher values can be expected in females during menses. CBC WITH AUTO DIFFERENTIAL - Normal Auto WBC 5.3 RBC 4.75 Hemoglobin 13.7 Hematocrit 40.1 MCV 84.4 MCH 28.8 MCHC 34.2 RDW 12.0 Platelets 175 MPV 10.1 nRBC 0.0 Neutrophils Relative 56.8 Lymphocytes Relative 34.3 Monocytes Relative 6.6 Eosinophils Relative 1.7 Basophils Relative 0.4 Immature Grans % 0.2 Neutrophils Absolute 3.0 Lymphocytes Absolute 1.8 Monocytes Absolute 0.4 Eosinophils Absolute 0.1 Basophils Absolute 0.0 Immature Grans Absolute 0.0 HIGH SENSITIVITY TROPONIN, SERIAL BASELINE - Normal Troponin HS Serial Baseline <3 HIGH SENSITIVITY TROPONIN, SERIAL, SECOND TEST - Normal 2h Troponin HS (Serial 2nd Troponin) <3 All other labs were within normal range or not returned as of this dictation. EMERGENCY DEPARTMENT COURSE and DIFFERENTIAL DIAGNOSIS/MDM: Vitals: Vitals: 10/26/24 0330 10/26/24 0400 10/26/24 0430 10/26/24 0500 BP: 115/82 110/77 116/82 120/88 Pulse: 84 84 78 80 Resp: 18 15 17 Temp: TempSrc: SpO2: 100% 100% 100% 100% Weight: Height: Diagnoses as of 10/26/24 0621 Chest pain, unspecified type The patient presented with chief complaint of chest pain. The differential diagnosis associated with this patient's presentation includes ACS, electrolyte abnormality, SVT. Our workup consisted of ordering/reviewing: cardiac labs. Patient is in agreement with this plan. Medications - No data to display REVAL: Patient presenting in the ED for chest pain that woke her from sleep and burning sensation on the left arm. Reportedly heart rate in the 160s at that time but heart rate is in the 90s in the ED. She is hemodynamically stable. Her labs are reassuring and there is low concern for ACS given 2 negativetroponins and a nonischemic EKG. No QTc prolongation or arrhythmias. No anemia or electrolyte abnormalities on labs. Chest x-ray without acute findings. Results discussed with patient and she will follow-up with her volumetric weigher this week for evaluation. Her chest pain that she was experiencing earlier has improved and she now has her baseline neck discomfort that she has been experiencing since she has started being evaluated by cardiology. She was given return precautions. CRITICAL CARE TIME CONSULTS: None PROCEDURES: Unless otherwise noted below, none Procedures Patients symptoms are consistent with sepsis, severe sepsis, or septic shock (If yes use ".sepsiscoremeasure"): FINAL IMPRESSION 1. Chest pain, unspecified type DISPOSITION Discharge 10/26/2024 05:23:18 AM PATIENT REFERRED TO: Solange Corcoran MD [id number] [id number] DISCHARGE MEDICATIONS: Discharge Medication List as of 10/26/2024 5:24 AM (Comment: Please note this report has been produced using speech recognition software and may contain errors related to that system including errors in grammar, punctuation, and spelling, as well as words and phrases that may be inappropriate. If there are any questions or concerns please feel freeto contact the dictating provider for clarification.) Kristen Booker DO (electronically signed) Emergency Medicine Provider [1] Past Medical History: Diagnosis Date Anxiety Asthma 09/2016 Breast cyst, left 06/03/2021 Chronic sinusitis 12/2016 ENT eval per [facility] GERD (gastroesophageal reflux disease) 07/2016 EGD per [facility] Hypothyroid 2009 IBS (irritable bowel syndrome) 02/2016 constipation - Colonoscopy per [facility] Migraines Neck pain Palpitations [2] Past Surgical History: Procedure Laterality Date BREAST LUMPECTOMY 08/2024 COLONOSCOPY 02/2016 [facility] TONSILLECTOMY (HISTORICAL) 1999 UPPER GASTROINTESTINAL ENDOSCOPY 11/2016 [facility] [3] Family History Problem Relation Name Age of Onset Ovarian cancer Neg Hx Diabetes Mother 35.00 on insulin at > 50 Lung cancer Maternal Grandfather Diabetes Maternal Cousin Gayle Colon cancer Maternal Grandmother 80.00 No Known Problems Paternal Grandmother Thyroid cancer Maternal Cousin Gayle Pancreatic cancer Mother Breast cancer Neg Hx No Known Problems Paternal Grandfather Other ([id number]) Father Danya 54.00 MVA in 2011 No Known Problems Sister Prostate cancer Maternal Grandfather [4] Social History Socioeconomic History Marital status: Tobacco Use Smoking status: Never Smokeless tobacco: Former Quit date: 04/05/2016 Vaping Use Vaping status: Never Used Substance and Sexual Activity Alcohol use: Not Currently Drug use: No Comment: caffiene: none Sexual activity: Yes Social History Narrative to Emile Nielson) since 07/21. NS or drinker, no children. 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 Social Drivers of Health Financial Resource Strain: Low Risk (04/20/2021) Received from [facility] Overall Financial Resource Strain (CARDIA) Difficulty of Paying Living Expenses: Not hard at all Food Insecurity: No Food Insecurity (10/10/2024) Received from [facility] Hunger Vital Sign Worried About Running Out of Food in the Last Year: Never true Ran Out of Food in the Last Year: Never true Transportation Needs: No Transportation Needs (10/10/2024) Received from [facility] PRAPARE - Transportation In the past 12 months, has lack of transportation kept you from medical appointments or from getting medications?: No In the past 12 months, has lack of transportation kept you from meetings, work, or from getting things needed for daily living?: No Physical Activity: Sufficiently Active (04/20/2021) Received from [facility] Exercise Vital Sign Days of Exercise per Week: 5 days Minutes of Exercise per Session: 30 min Stress: No Stress Concern Present (04/20/2021) [facility] [place] [employer]ational Health - Occupational Stress Questionnaire Feeling of Stress : Not at all Social Connections: Moderately Integrated (04/20/2021) [facility] Social Connection and Isolation Panel [NHANES] Frequency of Communication with Friends and Family: More than three times a week Frequency of Social Gatherings with Friends and Family: Twice a week Attends Mosque Services: More than 4 times per year Active Member of Clubs or Organizations: No Attends Club or Organization Meetings: Never Marital Status: Housing Stability: Unknown (10/10/2024) Received from [facility] Housing Stability Vital Sign Unable to Pay for Housing in the Last Year: No Homeless in the Last Year: No Kristen Booker DO 10/26/24 0621 [id number] of Present illness Narrative* Teresa Andersonsey, WILLARD - BUILD AND DEPLOYMENT ENGINEER - 10/23/2024 7:30 AM EDT [facility] NEUROLOGY OUTPATIENT CLINIC Primary Care Physician: Zachariah Rome DO Chief Complaint: Chief Complaint Patient presents with Hospital Follow-up Head pressure, muscle weakness, tremors Main Diagnosis: Diagnosis Plan 1. Migraine without aura and without status migrainosus, not intractable Ambulatory referral to Physical Therapy 2. Chronic daily headache 3. Muscle spasm Nerve conduction test with EMG 4. Dizziness Vestibular test History: given by the patient and EMR. EMR was personally reviewed prior to today's visit and included review of prior notes and intermediate communications. HPI: Ms. Dulce Maria Carty is a 29 y.o. female who is seen in the NEUROLOGY CLINIC of [facility] for history of chronic daily headache for the last several months. Patient has a history of migraine headaches but in the last several months has become more frequent and severe. Patient reported that she has had some degree of headaches on a daily basis. Her headaches usually are bilateral, throbbing and associated sometimes with jabbing headache. In addition patient complaining of some light sensitivity as well as photophobia. Patient denied any aura. The patient states she has been [id number]. Patient delivered at the end of 2023. Since then the patient has headache almost on a daily basis. Her headaches vary in intensity from mild to moderate to severe headaches. When the headaches are severe the pain is throbbing associated with photophobia and phonophobia. Patient is breast-feeding and is not allowed to take any of the medication for migraine headache. Recently patient had an MRI of the brain ordered by her PCP. The MRI was unremarkable. Patient denied any other neurologicaldeficit. The last visit was 04/17/[address] Cortez where the patient was breast feeding and unable to start preventative or abortive migraine medications.. Headache characteristics: Description of pain: throbbing pain, sharp pain, bilateral in the frontal area, bilateral in the occipital area. Duration of individual headaches: 8-48 hour(s), frequency weekly. Associated symptoms: light sensitivity, nausea, and sound sensitivity. Pain relief: unable to obtain relief with OTC meds. Precipitating factors: patient is aware of none. INTERVAL HISTORY: Today, the patient returns for follow up due to increase in headache and neck pain, muscle spasms, extremity weakness and dizziness. The patient presents alone to the appointment today. The patient describes neck pain that began Sep 17, 2024 that moved up head. She describes burning pain in her head. She states she is currently in PT for neck pain management. Last Sunday was her last PT visit. The patient reports experiencing muscle spasms in calves, lower back and arms. She states weakness in arms and legs. The patient demonstrates shaking with pump assembler. The patient demonstrates slight weakness in left as compared to right side. The patient expresses concern for ALS, no fasciculations were observed. Discussed EMG to evaluate muscle spasms and c/o weakness which the patient agreed to. The patient reports continued headache and neck pain as well as jaw pain. The patient also reports frequent dizziness. The patient is currently and unable to take preventative medication formigraine. Discussed an order for vestibular testing to look for possible BPPV component which the milli lima agreed to trying. Advised the patient a referral for cranio sacral therapy will be placed formanagement of migraine pain. Discussed Botox as a treatment option for headache and jaw pain as a possibility in the future. The patient denies any other neurological deficits. Current Migraine Meds: No medications at this time Side effects: N/A Previous medication trials: No previous trials Previous Workup: MRI Brain W WO-10/13/2024 IMPRESSION: Normal contrast-enhanced MRI of the brain and cervical spine. Medical History[1] Surgical History[2] Allergies[3] @HOMEMEDS@ Current Medications[4] Family History[5] Social Connections: Moderately Integrated (04/20/2021) [facility] Social Connection and Isolation Panel [NHANES] Frequency of Communication with Friends and Family: More than three times a week Frequency of Social Gatherings with Friends and Family: Twice a week Attends Mosque Services: More than 4 times per year Active Member of Clubs or Organizations: No Attends Club or Organization Meetings: Never Marital Status: REVIEW OF SYSTEMS: Review of Systems Constitutional: Negative for activity change, appetite change and chills. HENT: Negative for ear pain, facial swelling, mouth sores, rhinorrhea, sinus pressure, sinus pain and tinnitus. Eyes: Negative for photophobia, pain and visual disturbance. Respiratory: Negative for cough and chest tightness. Gastrointestinal: Negative for abdominal pain, nausea and vomiting. Endocrine: Negative for cold intolerance and heat intolerance. Genitourinary: Negative for difficulty urinating. Musculoskeletal: Positive for neck pain. Allergic/Immunologic: Negative for food allergies. Neurological: Positive for dizziness, tremors, weakness and headaches. Negative for syncope, speechdifficulty and numbness. Hematological: Does not bruise/bleed easily. Psychiatric/Behavioral: Negative for confusion, decreased concentration and hallucinations. The patient is nervous/anxious. All other systems reviewed and are negative. PHYSICAL EXAM: BP 120/79 Pulse (!) 116 Temp 36.7 C (98.1 F) (Infrared) Ht 5' 6" (1.676 m) Wt 164 lb (74.4 kg) LMP 10/05/2022 (Approximate) BMI 26.47 kg/m Physical Exam Vitals and nursing note reviewed. Constitutional: Appearance: Normal appearance. She is normal weight. HENT: Head: Normocephalic. Nose: Nose normal. Eyes: Extraocular Movements: Extraocular movements intact. Conjunctiva/sclera: Conjunctivae normal. Pulmonary: Effort: Pulmonary effort is normal. Musculoskeletal: General: Normal range of motion. Cervical back: Normal range of motion. Skin: General: Skin is warm and dry. Neurological: General: No focal deficit present. Mental Status: She is alert and oriented to person, place, and time. Mental status is at baseline. Motor: Weakness and tremor present. Gait: Gait is intact. Comments: Slight left sided weakness. Tremor when testing strength with hand pump assembler. Psychiatric: Mood and Affect: Mood normal. Behavior: Behavior normal. Thought Content: Thought content normal. Judgment: Judgment normal. ASSESSMENT: 29 y.o. female with past medical history as above who presents for follow up evaluation of continued headache pain, dizziness, muscle spasms and weakness. IMPRESSION: Diagnosis Plan 1. Migraine without aura and without status migrainosus, not intractable Ambulatory referral to Physical Therapy 2. Chronic daily headache 3. Muscle spasm Nerve conduction test with EMG 4. Dizziness Vestibular test PLAN: 1. Patient provided with low tyramine diet to help with headache control. Order for cranio sacral therapy placed for headache management. 2. Vestibular testing order placed due to continued dizziness. 3. EMG order placed to look for abnormality causing patient muscle spasms and muscle weakness. 4. Patient will consider Botox as treatment option for migraine and masseter muscle pain. 5. Return to neurology clinic in 6 weeks, sooner if needed. I hope that all of your questions and concerns were addressed during today's visit. Please don't hesitate to call the Department of Neurology at [phone] for any further concerns. Sincerely, WILLARD Huff CNP The above diagnosis and management plan were discussed at length with the patient who voiced understanding and agreed. Electronically signed by: WILLARD Huff CNP 10/23/2024 7:44 AM [1] Past Medical History: Diagnosis Date Asthma 09/2016 Breast cyst, left 06/03/2021 Chronic sinusitis 12/2016 [facility] GERD (gastroesophageal reflux disease) 07/2016 EGD per [facility] Hypothyroid 2008 IBS (irritable bowel syndrome) 02/2016 constipation - Colonoscopy per [facility] [2] Past Surgical History: Procedure Laterality Date COLONOSCOPY 02/2016 [facility] TONSILLECTOMY (HISTORICAL) 2000 UPPER GASTROINTESTINAL ENDOSCOPY 11/2016 [facility] [3] Allergies Allergen Reactions Nitrofurantoin Other reaction(s): difficulty breathing Alprazolam Unknown Quetiapine Other [4] Current Outpatient Medications Medication Sig Dispense Refill hydrOXYzine pamoate (Vistaril) 25 MG capsule Take 1 capsule (25 mg) by mouth every 6 hours as needed for anxiety for up to 10 days. 30 capsule 0 MV-Min-Fe Fum-FA-DHA ( 1 PO) Take by mouth. Probiotic Product (PROBIOTIC DAILY PO) Take by mouth. cephalexin (Keflex) 250 MG capsule Take 1 capsule (250 mg) by mouth 4 times daily for 10 days. (Patient not taking: Reported on 10/23/2024) 40 capsule 0 Magnesium 300 MG capsule Take by mouth. (Patient not taking: Reported on 10/23/2024) No current facility-administered medications for this visit. [5] Family History Problem Relation Name Age of Onset Ovarian cancer Neg Hx Diabetes Mother 35.00 on insulin at > 50 Lung cancer Maternal Grandfather Diabetes Maternal Cousin Gayle Colon cancer Maternal Grandmother 80.00 No Known Problems Paternal Grandmother Thyroid cancer Maternal Cousin Gayle Pancreatic cancer Mother Breast cancer Neg Hx No Known Problems Paternal Grandfather Other ([id number]) Father Danya 54.00 MVA in 2011 No Known Problems Sister Prostate cancer Maternal Grandfather documented in this [facility]09-16-2025 History of Present illness Narrative* Rosa Willard, PT - 10/21/2024 8:15 AM EDT Images from the original note were not included. [facility] [place] [facility] AT [place] [address] [place] [address] Dept: [phone] Dept PHYSICAL THERAPY TREATMENT Patient Name: May Machelle : 1995 Date of Service: 10/21/2024 Referring Provider: Teresa Mckeon Visit #: 2 Diagnosis: Cervicalgia Patient Preferences: May Chief Complaint: cervical pain, headaches, sunny shoulder and UE pain Reason for referral/Mechanism of injury: Pt had a lumpectomy in August 2024 and then had fluid drained on sep 18, 2024. This is when her symptoms in her neck started and has progressed into her head and into her shoulders and sunny UE with weakness and burning. She has had episodes of full body tremorsand feeling like she was going to pass out. She was admitted to hospital (Oct 09, 2024 - Oct 11, 2024) and had several tests and scans and everything was negative. She was Dx with anxiety and potential POTS and will be undergoing cardiac testing - she has seen a volumetric weigher. Imaging: several during her hospital stay Previous Treatment: none Precautions: None Subjective The stretches help in the moment but effects dont feel like they last planer chain offbearer. My pain is mostly in shoulders, radiating to neck and mid back. Pain is about a 3/10 Compliance with HEP: Yes Objective Objective measurements not taken today. Treatment Therapeutic Exercise # of Activities: 10 Therapeutic Exercise Activity 4: mid rows and pulldowns. Activity 4 Comment: 3x10 L3 Therapeutic Exercise Activity 5: HABD Activity 5 Comment: 3x10 L3 Therapeutic Exercise Activity 6: Shoulder ER Activity 6 Comment: L3 3x10 Therapeutic Exercise Activity 7: pec stretch Activity 7 Comment: 30 sec x2 Soft Tissue Mobilization Location: Trapezius (upper, middle, and lower) Body Position: Prone Cupping Location: sunny UT and medial scap border Body Position: Prone Comments: 4 static cups - 5 min, dynamic on upper trap x5 min Home Exercise Program: Progressed home exercise program Assessment Skilled physical therapy interventions utilized to improve patient s impairments and work towards established goals. Patient response to treatment: Pt reports exercises are easy but recreated burning sensation on L>R, so progressions held due to muscle burn. Pt reports feeling good at end of session. Patient will benefit from continued physical therapy to decrease pain with lifting activities. The rationale for today s treatment was explained to the patient. Verbal cues were provided for correct form with all exercises. Advised patient to continue with Home Exercise Program (HEP). Goals General/Ortho Patient will be able to life children without increases in pain for improved tolerance and safety to residential child care counselor. (Progressing) Start: 10/18/24 Expected End: 11/22/24 Patient will able to stand and walk for several hours with minimal to no increases in pain for improved tolerance to housework and residential child care counselor. (Progressing) Start: 10/18/24 Expected End: 11/22/24 Patient will increase cervical spine AROM by 10 degrees in all planes for improve upright posture and tolerance to her ADLs. (Progressing) Start: 10/18/24 Expected End: 11/22/24 Functional Outcome Measure: Pt will decrease SPADI score by 13 points in order to demonstrate decreased improved tolerance and performance of ADLs, mobility and recreational activities. (Progressing) Start: 10/18/24 Expected End: 11/22/24 Functional Outcome Measure: Pt will decresae Neck Pain and Disability Scale score to <50/100 in order to demonstrate improvements in functional ADLs and mobility. (Progressing) Start: 10/18/24 Expected End: 11/22/24 Plan Plan for next session: Add trapezius strengthening (Is, Ts, Ys) Time Entry Total Treatment Time Start Time: 812 Stop Time: 857 Time Calculation (min): 45 min PT Therapeutic Procedures Time Entry Therapeutic Exercise Time Entry: 16 Manual Therapy Time Entry: 29 Rosa Willard, PT documented in this [facility]09-13-2025 History of Present illness Narrative* Tanisha Flores, PT - 10/18/2024 9:00 AM EDT Images from the original note were not included. [facility] [place] [facility] AT [address] [place] [address] Dept: [phone] Dept PHYSICAL THERAPY EVALUATION Patient Name: Dulce Maria Carty : 1995 Date of Service: 10/18/2024 Referring Provider: Teresa Mckeon Visit #: 1 Diagnosis: Cervicalgia Strain of other muscles, fascia and tendons at shoulder and upper arm level, unspecified arm, initial encounter General Information Patient Preferences: May Chief Complaint: cervical pain, headaches, sunny shoulder and UE pain Reason for referral/Mechanism of injury: Pt had a lumpectomy in August 2024 and then had fluid drained on sep 18, 2024. This is when her symptoms in her neck started and has progressed into her head and into her shoulders and sunny UE with weakness and burning. She has had episodes of full body tremorsand feeling like she was going to pass out. She was admitted to hospital (Oct 09, 2024 - Oct 11, 2024) and had several tests and scans and everything was negative. She was Dx with anxiety and potential POTS and will be undergoing cardiac testing - she has seen a volumetric weigher. 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 She has no past medical history of Abnormal Pap smear of cervix, Anemia, Autoimmune disorder (HCC),CAD (coronary artery disease), Chronic kidney disease, Complication of anesthesia, Depression, Diabetes mellitus (HCC), Disease of blood and blood forming organ, Encounter for assisted reproductive fertility cycle, Endometriosis, Heart disease, Herpes simplex virus (HSV) infection, History of bloodtransfusion, Hypertension, Infertility, female, Liver disease, Menopausal symptoms, Mental disorder, Neurologic disorder, Overactive bladder, depression, Psychiatric problem, Rh incompatibility, Rh sensitized, Seizures (HCC), Stress incontinence, Systemic lupus erythematosus (CMS/HCC) (HC C), Trauma, Tuberculosis, or Uterine disorder. PSHX: Dulce Maria has a past surgical history that includes Upper gastrointestinal endoscopy (11/2016); Colonoscopy (02/2016); and Tonsillectomy (1999). Have you experienced any anxiety or depression?: Yes Have you experienced thoughts of self-harm or suicidal thoughts?: No Social Drivers of Health Reviewed: Yes Physician follow-up appointment?: Yes Subjective Pain: Current: /10 Best: 210 Worst: /10 Pain Type: acute Pain Location: entire cervical from base of skull to UT/shoulder, sunny lateral upper arm sunny with occasional lateral forarm Pain Description: burning Symptoms Aggravated by: standing, walking, lifting her kids (36lbs) Symptoms Relieved by: massage Prior Level of Function: no limitations Current Level of Function: limitations with standing or walking for longer than 1 hour, lifting herkids, her symptoms are worse in the morning when she wakes Patient's Stated Goal: get some relief from her neck tightness and burning Outcome Measures Shoulder Pain and Disability Index (x/130) Date Recorded 10/18/2024 Score 50 Neck Pain and Disability Scale (x/100) Date Recorded 10/18/2024 Score 67 Objective CERVICAL SPINE Observation: rounded shoulder, forward head, muscle guarded with elevated shoulder B Shoulder AROM screen: WNL B Cervical AROM (degrees) Date Recorded: 10/18/2024 Flexion 40 * Extension 30 * Right side bending 45 Left side bending 35 Right rotation 76 Left rotation 68 Comments NT= Not tested *=pain Upper Extremity Strength (x/5) Date Recorded 10/18/2024 Right Left Shoulder Flexion 4+ * 4+ * Shoulder Abduction 5 * 5 * Shoulder External Rotation 5 * 5 * Shoulder Internal Rotation 5 * 5 * Elbow Flexion 5 * 5 * Elbow Extension 5 * 5 * Comments NT= Not tested *=pain Wax Ball Molder Strength (lbs) Date 10/18/2024 R L Trial 1 90 65 Trial 2 80 62 Trial 3 80 65 MEAN 83 64 Comments R dominant Deep Neck Flexor (DNF) Endurance Test (seconds)= NT Joint mobility: unable to assess due to pain levels Palpation: tenderness to sunny UT and medial scap border with trigger points Flexibility: mild UT and scalene limitations Special Tests: Spurling's Test: negative Compression: negative Distraction: negative Assessment Dulce Maria is a 28 y.o. patient who presents to therapy today with good rehab potential with complaints of cervical spine, sunny UT and shoulder pain as well as sunny UE pain that has been ongoing for approx 1 month following a breast procedure after her lumpectomy. Pt reports pain and difficulty with prolonged standing and walking as well as lifting her kids and generalized weakness throughout her day. Pt presents with rounded shoulder posture with forward head. She also has decreases in her cervical AROM. Pt will benefit from skilled PT intervention to address deficits and limitations as mentioned above in order to promote improved tolerance to her ADLs as well as her daily tasks with residential child care counselor. Evaluation complexity is low secondary to: patient has 1-2 personal factors and/or comorbidities that will affect plan of care, therapy will be addressing 1-2 elements, and clinical presentation is evolving. Body Systems Affected: musculoskeletal and neuromuscular Rehab Potential: Good Learning Preferences: demonstration, explanation, performance, and printed materials Barriers to Rehab: comorbidities Goals General/Ortho Patient will be able to life children without increases in pain for improved tolerance and safety to residential child care counselor. (Initiated) Start: 10/18/24 Expected End: 11/22/24 Patient will able to stand and walk for several hours with minimal to no increases in pain for improved tolerance to housework and residential child care counselor. (Initiated) Start: 10/18/24 Expected End: 11/22/24 Patient will increase cervical spine AROM by 10 degrees in all planes for improve upright posture and tolerance to her ADLs. (Initiated) Start: 10/18/24 Expected End: 11/22/24 Functional Outcome Measure: Pt will decrease SPADI score by 13 points in order to demonstrate decreased improved tolerance and performance of ADLs, mobility and recreational activities. (Initiated) Start: 10/18/24 Expected End: 11/22/24 Functional Outcome Measure: Pt will decresae Neck Pain and Disability Scale score to <50/100 in order to demonstrate improvements in functional ADLs and mobility. (Initiated) Start: 10/18/24 Expected End: 11/22/24 Plan Frequency and Duration: 2/wk for 4 weeks Patient's Plan of Care to be transferred to current staff physical therapist at [facility] for the remainder of their visits. Therapeutic Contents: client education, group therapy, home exercise program, manual therapy techniques, neuromuscular re-education, self care/home management, therapeutic activities, therapeutic exercise, trigger point dry needle, and modalities as needed Plan for next session: progress postural strengthening as able, continue with cupping/STM as neededfor tissue restriction and pain management Risks and benefits were discussed with the patient and/or family, and the patient and/or family participated with the plan of care and agrees. Treatment Therapeutic Exercise # of Activities: 10 Therapeutic Exercise Activity 1: sunny UT stretch Activity 1 Comment: 20" ea Therapeutic Exercise Activity 2: sunny levator stretch Activity 2 Comment: 20" ea Therapeutic Exercise Activity 3: sunny anterior scalene stretchy Activity 3 Comment: 20" ea Therapeutic Exercise Activity 4: scap squeeze Activity 4 Comment: 5" x10 Cupping Location: sunny UT and medial scap border Body Position: Prone Comments: 6 static cups - 8 min hold Patient Education: eduction on evaluation finding, discussed proper posture, discussed POC, issued and instructed in HEP Home Exercise Program: Created Time Entry Total Treatment Time Start Time: 903 Stop Time: 954 Time Calculation (min): 51 min PT Evaluation Time Entry PT Evaluation (Low) Time Entry: 20 PT Therapeutic Procedures Time Entry Therapeutic Exercise Time Entry: 20 Manual Therapy Time Entry: 10 Tanisha Flores PT documented in this [facility]09-06-2025 NoteHNO ID: [id number] Author: CHELSIE CLINE LSW Service: Care Management Author Type: Broadcast Supervisor Type: Care Mgt Progress Note Filed: 10/11/2024 10:35 Note Text: CARE MANAGEMENT DISCHARGE NOTE SERVICE DATE: October 11, 2024 SERVICE TIME: 10:34 AM Admission Date: 10/09/2024 LOS: 0 days Discharge Arrangement Services Arranged Provider Name: NA Phone: NA Caregiver Assessment Transportation Arrangements Date of Trip: 10/11/24 Time of Trip: 1130 Destination: Home Handoff Communication: Additional Information: CM notified regarding d/c today, home. Pt confirmed her spouse will be transporting her home. CM will follow, as needed. SIGNATURE: SALVATORE Malcolm, ACChapin PATIENT NAME: May Machelle DATE: October 11, 2024 TIME: 10:34 AMParkwood [id number] NoteHNO ID: [id number] Author: SOPHIA SNEED RN Service: Care Management Author Type: Registered Nurse Type: Care Mgt Initial Assessment Filed: 10/10/2024 08:58 Note Text: CARE MANAGEMENT: ASSESSMENT AND DISCHARGE PLAN SERVICE DATE: October 10, 2024 SERVICE TIME: 8:53 AM computer numerical control grinder spoke with patient at bedside to complete Care Management Assessment. Introduction made and role of Care Management explained. PCP: Zachariah Rome, DO - Patient Confirmed Primary Contact: Extended Emergency Contact Information Primary Emergency Contact: Cat Carty Mobile Relation: Spouse Admission Status: Observation Insurance Provider: [employer] [place] [employer] Discharge Planning requested by: Per Department Practice Potential Transition Plans Home Advance Directives Current Advance Directive: None Marketing Development Representative Attempted to Assist with AD Completion: Yes Action: Education Provided Current Living Arrangements and Support Lives with: Family members (Spouse an 2 Children.) Type of Residence: Private Residence (House) (House: 2 Story with No Basement and 4 Entry Steps) Does the patient have to climb stairs at home?: Yes, stairs outside the home, stairs within the home Support: Spouse/significant other (Spouse Cat Carty - ) How do you manage to accomplish the following: Independent: Ambulation, Bathe/Shower, Dress, Meals/Meal Prep, Going to the bathroom, Medication Management, Transportation to appointments/community Current Services/Equipment Current DME Type: None Current Post-Acute Service(s) Provider: None Discharge Planning Patient Goal(s): General wellness, Be able to go home [place] of Choice Explained: [place] of Choice Given: No (Discharge Needs: To be Determined) Are you interested in bedside delivery of your medications? N/A - Service is Not Available at [facility] Discharge Pharmacy Preference: [facility] Discharge Planning Participant(s): Patient Patient/Family Comments: Patient will be returning home at discharge. Patient states her spouse will transport home at discharge. Transport at Discharge: Transportation Arrangements: Car Destination: Home Needs Prior to Discharge: Needs Prior to Discharge: To Be Determined Post-Acute Discharge Plan: From home. Lives with family: spouse and 2-children. Patient reports she is independent with all her care. Unemployed. Drives. No Active Services or DME reported. Discharge Plan: Home Discharge Transportation: Spouse. Dept to Follow. SIGNATURE: Sophia Sneed RN PATIENT NAME: Dulce Maria Carty DATE: October 10, 2024 TIME: 8:53 [id number] HyitZZBS-[id number] (AGENT OF COVID-19) RNA: Not detected INFLUENZA A RNA: Not detected INFLUENZA B RNA: Not detected RESPIRATORY SYNCYTIAL VIRUS (RSV) RNA: Not detectedParkwood HospitalComment on above:Performed By: #### [id number], [id number], [id number], [id number] #### [facility] CLIA [id number] [address] [place] [address] OF [id number] Telephone encounter Note* Telephone Encounter - Sandy Street RN - 10/08/2024 1:08 PM EDT S: Patient spoke with CAC nurse regarding extreme weakness, fatigue, muscle aches, dizziness, head pressure, palpitations. B: Was seen in the ED on 10/05/24 (twice) for tachycardia and dizziness. Seen in the ED on 10/07/24 for tremors and palpitations. Patient reports she was seen in an ED in [place] as well for severehead pressure. A: Reports since Sunday10/05/24 emergency room evaluation she feels all her symptoms are getting worse. This all started with severe head pressure and went to weakness to the point she is now extremely weak on a daily basis. She also has muscle aches and pains daily. She also has episodes of the following symptoms: tachycardia, dizziness, feels like she could be incontinent of both bowel and bladder, head pressure, "out of body" feeling and not with it, tremors and shaking, nausea, shortness ofbreath, chest pain (which has been evaluated in ED), tingling bilateral legs, feeling hot/flushed entire body, palpitations and decreased appetite. During these episodes the head pressure, dizziness and joint pain increase significantly. She feels like she could collapse. Denies history of diabetes, , blood in stools, black tarry stools, vomiting blood, blood in urine, slurred speech, speech difficulties, drooping face or weakness on just one side. She is requesting appointment with her physician. R: Message to provider, please advise. Advised patient the office will reach out to her once the message is reviewed to schedule an appointment. Advised to increase fluids to stay hydrated, keep herself cool, lie down and rest with feet elevated, monitor symptoms and to call back if the symptoms worsen. She understands the above care advice and has no further questions at this time. Reason for Disposition MODERATE weakness (e.g., interferes with work, school, normal activities) and cause unknown (Exceptions: Weakness from acute minor illness or from poor fluid intake; weakness is chronic and not worse.) Protocols used: Weakness (Generalized) and [id number] [facility] [id number] Miscellaneous Notes* Telephone Encounter - Sandy Street RN - 10/08/2024 1:08 PM EDT S: Patient spoke with CAC nurse regarding extreme weakness, fatigue, muscle aches, dizziness, head pressure, palpitations. B: Was seen in the ED on 10/05/24 (twice) for tachycardia and dizziness. Seen in the ED on 10/07/24 for tremors and palpitations. Patient reports she was seen in an ED in [place] as well for severehead pressure. A: Reports since Sunday10/05/24 emergency room evaluation she feels all her symptoms are getting worse. This all started with severe head pressure and went to weakness to the point she is now extremely weak on a daily basis. She also has muscle aches and pains daily. She also has episodes of the following symptoms: tachycardia, dizziness, feels like she could be incontinent of both bowel and bladder, head pressure, "out of body" feeling and not with it, tremors and shaking, nausea, shortness ofbreath, chest pain (which has been evaluated in ED), tingling bilateral legs, feeling hot/flushed entire body, palpitations and decreased appetite. During these episodes the head pressure, dizziness and joint pain increase significantly. She feels like she could collapse. Denies history of diabetes, , blood in stools, black tarry stools, vomiting blood, blood in urine, slurred speech, speech difficulties, drooping face or weakness on just one side. She is requesting appointment with her physician. R: Message to provider, please advise. Advised patient the office will reach out to her once the message is reviewed to schedule an appointment. Advised to increase fluids to stay hydrated, keep herself cool, lie down and rest with feet elevated, monitor symptoms and to call back if the symptoms worsen. She understands the above care advice and has no further questions at this time. Reason for Disposition MODERATE weakness (e.g., interferes with work, school, normal activities) and cause unknown (Exceptions: Weakness from acute minor illness or from poor fluid intake; weakness is chronic and not worse.) Protocols used: Weakness (Generalized) and [id number] documented in this [facility]09-02-2025 Emergency department Note* Farrukh Calvert PA-C - 10/07/2024 3:08 PM EDT Emergency Department Encounter [facility] ED Patient: Dulce Maria Carty : 1995 Date of Evaluation: 10/07/2024 ED Provider: Farrukh Calvert PA-C As the [id number], I performed a medical screening history and physical exam on this patient. HISTORY OF PRESENT ILLNESS In brief, Dulce Maria Carty is a 28 y.o. female that presents for a number of complaints, has been seen in the ED recently for this and following up with her outpatient doctors, saw her PCP about this today who was concern for possible adrenal issue. She is having intermittent chest pain, palpitations, near syncopal sensation, tremors, dizziness, extremity weakness numbness tingling. She had MRI of her pituitary at the end of September that was normal. She had CTA chest yesterday which was normal. Says thus far her PCP and specialist cannot figure out what is going on. PHYSICAL EXAM ED Triage Vitals [10/07/24 1512] Temp Heart Rate Resp BP 37 C (98.6 F) 96 18 120/75 SpO2 Temp Source Heart Rate Source Patient Position 99 % Temporal Monitor -- BP Location FiO2 (%) -- -- On brief exam, fatigued appearing female, not acutely distressed. Heart regular rate and rhythm, lungs clear to auscultation, moves all extremities grossly normal and purposefully during history and exam. We will initiate diagnostics/treatments as indicated and place in main ED as soon as available. Farrukh Calvert PA-C [employer] Farrukh Calvert PA-C 10/07/24 1614 * Ana Drake RN - 10/07/2024 3:08 PM EDT Pt arrives with increasing weakness and tremors. She is feeling SOB and is having a hard time doingdaily activities. Pt is having episodes of feeling like she is gong to pass out. This has been going on for about a week. She was just seen here Sunday and was seen by her PCP today. documented in this encounterSOhioHealth Van Wert [id number] Emergency department Triage note* Ana Drake RN - 10/07/2024 3:08 PM EDT Pt arrives with increasing weakness and tremors. She is feeling SOB and is having a hard time doingdaily activities. Pt is having episodes of feeling like she is gong to pass out. This has been going on for about a week. She was just seen here Sunday and was seen by her PCP today. [facility] [id number] Physician Emergency department Note* Farrukh aClvert PA-C - 10/07/2024 3:08 PM EDT Emergency Department Encounter [facility] ED Patient: Dulce Maria Carty : 1995 Date of Evaluation: 10/07/2024 ED Provider: Farrukh Calvert PA-C As the [id number], I performed a medical screening history and physical exam on this patient. HISTORY OF PRESENT ILLNESS In brief, Dulce Maria Carty is a 28 y.o. female that presents for a number of complaints, has been seen in the ED recently for this and following up with her outpatient doctors, saw her PCP about this today who was concern for possible adrenal issue. She is having intermittent chest pain, palpitations, near syncopal sensation, tremors, dizziness, extremity weakness numbness tingling. She had MRI of her pituitary at the end of September that was normal. She had CTA chest yesterday which was normal. Says thus far her PCP and specialist cannot figure out what is going on. PHYSICAL EXAM ED Triage Vitals [10/07/24 1512] Temp Heart Rate Resp BP 37 C (98.6 F) 96 18 120/75 SpO2 Temp Source Heart Rate Source Patient Position 99 % Temporal Monitor -- BP Location FiO2 (%) -- -- On brief exam, fatigued appearing female, not acutely distressed. Heart regular rate and rhythm, lungs clear to auscultation, moves all extremities grossly normal and purposefully during history and exam. We will initiate diagnostics/treatments as indicated and place in main ED as soon as available. Farrukh Calvert PA-C [employer] Farrukh Calvert PA-C 10/07/24 6604 [facility] [employer] Phone: 1(202) 852-269509-02-2025 Telephone encounter Note* Telephone Encounter - Suzanne Avina - 10/07/2024 8:06 AM EDT Name of Caller: May Contact Reason for Appointment: ER visit for Tachycardia and dizziness. Please call patient to schedule [facility] Name[id number] Miscellaneous Notes* Telephone Encounter - Suzanne Avina - 10/07/2024 8:06 AM EDT Name of Caller: May Contact Reason for Appointment: ER visit for Tachycardia and dizziness. Please call patient to schedule Office Name: [facility] documented in this [facility]Ohio[facility] [id number] Telephone encounter Note* Telephone Encounter - Meliza Reyna RN - 10/06/2024 2:26 PM EDT S: Patient spoke with [facility] nurse regarding intermittent dizziness, palpitations, shortness of breath B:onset symptoms/concern: worse in the last few days Seen in ER twice- yesterday A: Patient complaints of intermittent dizziness, palpitations, shortness of breath, altered vision and chest pain. Reports having increasing episodes of above symptoms. Has had about 4 episodes todaythus far- duration is about 20 minutes, but never feels like fully returns to baseline. Patient feels faint during these episodes, but has not passed out.BP taken right before triage was 136/74 and P- 97 ( this is an increase per patent) Patient has been drinking well, but does have a dry mouth andincreased thirst. Endorses fullness, decreased appetite and nausea, but no vomiting. No bloody/black stools, but stools are looser. ER provider did prescribe keflex due to fluid collection found on CTA ( lumpectomy done recently). No PE or acute cardiopulmonary disease noted on CTA. Denies confusion, fever, increasing pain. R: patient made aware of callback. Encouraged to stay hydrated, take antibiotic as directed ( can add probiotic or eat yogurt to help with GI upset) . Advised if develops life threatening symptoms toseek emergency medical care. Page sent to Dr. Rome. Per Dr. Rome, if symptoms remaining the same ok to follow up with office tomorrow, encourage hydration, take med as ordered from ER, follow up with breast surgeon, but if symptoms get worse should go back to ER. Patient made aware and is agreeable to plan. Reason for Disposition [1] Recent medical visit within 24 hours AND [2] NEW symptom AND [3] that could be serious Protocols used: Recent Medical Visit for Illness Follow-up [id number] [id number] Miscellaneous Notes* Telephone Encounter - Meliza Reyna RN - 10/06/2024 2:26 PM EDT S: Patient spoke with [facility] nurse regarding intermittent dizziness, palpitations, shortness of breath B:onset symptoms/concern: worse in the last few days Seen in ER twice- yesterday A: Patient complaints of intermittent dizziness, palpitations, shortness of breath, altered vision and chest pain. Reports having increasing episodes of above symptoms. Has had about 4 episodes todaythus far- duration is about 20 minutes, but never feels like fully returns to baseline. Patient feels faint during these episodes, but has not passed out.BP taken right before triage was 136/74 and P- 97 ( this is an increase per patent) Patient has been drinking well, but does have a dry mouth andincreased thirst. Endorses fullness, decreased appetite and nausea, but no vomiting. No bloody/black stools, but stools are looser. ER provider did prescribe keflex due to fluid collection found on CTA ( lumpectomy done recently). No PE or acute cardiopulmonary disease noted on CTA. Denies confusion, fever, increasing pain. R: patient made aware of callback. Encouraged to stay hydrated, take antibiotic as directed ( can add probiotic or eat yogurt to help with GI upset) . Advised if develops life threatening symptoms toseek emergency medical care. Page sent to Dr. Rome. Per Dr. Rome, if symptoms remaining the same ok to follow up with office tomorrow, encourage hydration, take med as ordered from ER, follow up with breast surgeon, but if symptoms get worse should go back to ER. Patient made aware and is agreeable to plan. Reason for Disposition [1] Recent medical visit within 24 hours AND [2] NEW symptom AND [3] that could be serious Protocols used: Recent Medical Visit for Illness Follow-up [id number] documented in this [place] [id number] Hospital Discharge instructions* Discharge Instructions* Shani Kate MD - 10/05/2024 9:51 PM EDT In reviewing your previous medical records the only abnormal finding was a collection of fluid in your left breast that may represent a seroma or possibly infected fluid. Your symptoms may be associated with a developing infection. For that reason I am putting you on Keflex. Please contact your breast surgeon for reassessment early next week. * Attachments The following attachments cannot be sent through Care Everywhere. * Common Breast Problems (Gambian) documented in this [place] [id number] Emergency department Note* Shani Kate MD - 10/05/2024 9:20 PM EDT EMERGENCY DEPARTMENT ENCOUNTER Pt Name: Dulce Maria Carty Birthdate 1995 Date of evaluation: 10/05/2024 ED Provider: Shani Kate MD CHIEF COMPLAINT Chief Complaint Patient presents with Chest Pain Headache Dizziness HISTORY OF PRESENT ILLNESS I wore appropriate PPE for the entirety of this encounter. HPI Dulce Maria Carty is a 28 y.o. female who presents to the emergency department with multiple complaints. She states that she has had 1 to 1-1/2 weeks of neck pain, chest pain, shortness of breath, palpitations, nausea, and dizziness. She feels like she is going to pass out. She has pain to the left side of her neck. As well as a dull headache. Patient had a breast biopsy lumpectomy 1 month ago. She had fluid drained 2 weeks ago. She currently is breast-feeding. She was seen at [place] emergency department earlier today. She had laboratory work, fluids provided as well as a CTA of the chest which demonstrated no evidence of pulmonary embolus. A 2 cm in diameter area of fluid collection was noted however. Nursing Notes were reviewed. Limitations to history: None Outside historians: None REVIEW OF SYSTEMS Review of Systems Constitutional: Positive for activity change. Negative for chills and fever. HENT: Negative for ear pain and sore throat. Eyes: Positive for visual disturbance. Negative for pain. Respiratory: Positive for shortness of breath. Negative for cough. Cardiovascular: Positive for chest pain and palpitations. Gastrointestinal: Positive for nausea. Negative for abdominal pain and vomiting. Genitourinary: Negative for dysuria and hematuria. Musculoskeletal: Positive for neck pain. Negative for arthralgias and back pain. Skin: Negative for color change and rash. Neurological: Positive for dizziness and weakness. Negative for seizures and syncope. All other systems reviewed and are negative. PAST MEDICAL HISTORY Medical History[1] SURGICAL HISTORY Surgical History[2] CURRENT MEDICATIONS Current Discharge Medication List CONTINUE these medications which have NOT CHANGED Details hydrOXYzine pamoate (Vistaril) 25 MG capsule Take 1 capsule (25 mg) by mouth every 6 hours as needed for anxiety for up to 10 days. Qty: 30 capsule, Refills: 0 Magnesium 300 MG capsule Take by mouth. MV-Min-Fe Fum-FA-DHA ( 1 PO) Take by mouth. Probiotic Product (PROBIOTIC DAILY PO) Take by mouth. ALLERGIES Nitrofurantoin, Alprazolam, and Quetiapine FAMILY HISTORY Family History[3] SOCIAL HISTORY Social History[4] SCREENINGS PHYSICAL EXAM ED Triage Vitals Temp Heart Rate Resp BP 10/05/24212910/05/24212810/05/24212410/05/242128 36.7 C (98.1 F) 104 18 (!) 147/95 SpO2 Temp Source Heart Rate Source Patient Position 08/212810/05/242129 -- -- 100 % Oral BP Location FiO2 (%) -- -- Physical Exam Vitals and nursing note reviewed. Constitutional: General: She is not in acute distress. Appearance: She is well-developed. Comments: The patient is a young female found lying on a cart. She is afebrile. Her heart rate is 104. She appears anxious. Otherwise she is in no acute distress. HENT: Head: Normocephalic and atraumatic. Eyes: Conjunctiva/sclera: Conjunctivae normal. Cardiovascular: Rate and Rhythm: Normal rate and regular rhythm. Heart sounds: No murmur heard. Pulmonary: Effort: Pulmonary effort is normal. No respiratory distress. Breath sounds: Normal breath sounds. Abdominal: Palpations: Abdomen is soft. Tenderness: There is no abdominal tenderness. Musculoskeletal: General: No swelling. Cervical back: Neck supple. Skin: General: Skin is warm and dry. Capillary Refill: Capillary refill takes less than 2 seconds. Neurological: Mental Status: She is alert. Psychiatric: Mood and Affect: Mood normal. DIAGNOSTIC RESULTS RADIOLOGY (Per Emergency Physician): Interpretation per the Radiologist below, if available at the time of this note: No orders to display EKG Interpretation: An EKG is obtained and interpreted by myself. It demonstrates a sinus tachycardia with a rate of 111. QRS axis is [address] segment findings are found. LABS: Labs Reviewed - No data to display All other labs were within normal range or not returned as of this dictation. EMERGENCY DEPARTMENT COURSE and DIFFERENTIAL DIAGNOSIS/MDM: Vitals: Vitals: 10/05/24212410/05/24212810/05/242129 BP: (!) 147/95 Pulse: 104 Resp: 18 20 Temp: 36.7 C (98.1 F) TempSrc: Oral SpO2: 100% Weight: 74.8 kg (165 lb) Height: 1.702 m (5' 7") Medications Administered in the ED: Medications cephalexin (Keflex) capsule 500 mg (has no administration in time range) Leidy Kate MD am the ed teacher of record. PROCEDURES: Unless otherwise noted below, none Procedures Differential Diagnosis Considerations: I have reviewed all of the patient's lab tests. Additionally when she was in the emergency department in [place] she had a head CAT scan that was reported to be normal. I do not find any significant abnormalities with the laboratory testing that was obtained earlier today other than a very mildly low potassium level. The chest CT scan did demonstrate a fluid collection. It was suspected thatthis was from a seroma. It is possible that this is an early infection. ED testing and evaluation will be obtained to help differentiate these diagnostic possibilities anddetermine the most likely cause. Sources of History: I evaluated other historical sources including previous outpatient records and admission records. ED Course: In the emergency department I initially evaluated the patient with a history and physical examination in order to determine diagnostic testing and therapeutic care. On the basis of this history and physical examination the patient was placed on Keflex for treatment of the fluid collection seen on the chest CT scan. Reassessment: None Consideration of Admission/Observation: I considered admission for this patient, however, at this time the patient appears to be stable. I do not believe that the patient would benefit from admission at this time. I believe the patient canfollow-up with the primary care physician. The patient is advised to return to the emergency department if symptoms change or worsen where admission may need to be considered at a another time. Independent Interpretation of Tests: I independently evaluated the results of the patient's diagnostic testing in the context of the patient's presentation. Diagnostic Tests Considered but not Performed: No other diagnostic tests are considered at this time. Prescription Medications Considered but not Prescribed: Keflex as prescribed. Chronic Conditions Affecting Care: None FINAL IMPRESSION 1. Dizziness 2. Seroma of breast DISPOSITION Discharge 10/05/2024 09:49:48 PM PATIENT REFERRED TO: DO [address] [facility] [id number] In 2 days DISCHARGE MEDICATIONS: Current Discharge Medication List START taking these medications Details cephalexin (Keflex) 250 MG capsule Take 1 capsule (250 mg) by mouth 4 times daily for 10 days. Qty: 40 capsule, Refills: 0 (Comment: Please note this report has been produced using speech recognition software and may contain errors related to that system including errors in grammar, punctuation, and spelling, as well as words and phrases that may be inappropriate. If there are any questions or concerns please feel freeto contact the dictating provider for clarification.) Shani Kate MD (electronically signed) Emergency Medicine Provider [1] Past Medical History: Diagnosis Date Asthma 09/2016 Breast cyst, left 06/03/2021 Chronic sinusitis 12/2016 ENT eval per Anibal GERD (gastroesophageal reflux disease) 07/2016 EGD per Ming Hypothyroid 2009 IBS (irritable bowel syndrome) 02/2016 constipation - Colonoscopy per Ming [2] Past Surgical History: Procedure Laterality Date COLONOSCOPY 02/2016 [facility] TONSILLECTOMY (HISTORICAL) 1999 UPPER GASTROINTESTINAL ENDOSCOPY 11/2016 Ming [3] Family History Problem Relation Name Age of Onset Ovarian cancer Neg Hx Diabetes Mother 35.00 on insulin at > 50 Lung cancer Maternal Grandfather Diabetes Maternal Cousin Gayle Colon cancer Maternal Grandmother 80.00 No Known Problems Paternal Grandmother Thyroid cancer Maternal Cousin Gayle Pancreatic cancer Mother Breast cancer Neg Hx No Known Problems Paternal Grandfather Other (34[address]) Father Danya 54.00 MVA in 2011 No Known Problems Sister Prostate cancer Maternal Grandfather [4] Social History Socioeconomic History Marital status: Tobacco Use Smoking status: Never Smokeless tobacco: Former Quit date: 04/05/2016 Vaping Use Vaping status: Never Used Substance and Sexual Activity Alcohol use: Not Currently Drug use: No Comment: caffiene: none Sexual activity: Yes Social History Narrative to Emile Nielson) since 07/21. NS or drinker, no children. 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 Social Drivers of Health Financial Resource Strain: Low Risk (04/20/2021) Received from [facility] Overall Financial Resource Strain (CARDIA) Difficulty of Paying Living Expenses: Not hard at all Food Insecurity: No Food Insecurity (04/20/2021) Received from [facility] Hunger Vital Sign Worried About Running Out of Food in the Last Year: Never true Ran Out of Food in the Last Year: Never true Transportation Needs: No Transportation Needs (04/20/2021) Received from [facility] PRAPARE - Transportation Lack of Transportation (Medical): No Lack of Transportation (Non-Medical): No Physical Activity: Sufficiently Active (04/20/2021) Received from [facility] Exercise Vital Sign Days of Exercise per Week: 5 days Minutes of Exercise per Session: 30 min Stress: No Stress Concern Present (04/20/2021) Received from [facility] [place] [employer] - Occupational Stress Questionnaire Feeling of Stress : Not at all Social Connections: Moderately Integrated (04/20/2021) [facility] Social Connection and Isolation Panel [NHANES] Frequency of Communication with Friends and Family: More than three times a week Frequency of Social Gatherings with Friends and Family: Twice a week Attends Mosque Services: More than 4 times per year Active Member of Clubs or Organizations: No Attends Club or Organization Meetings: Never Marital Status: Housing Stability: Low Risk (04/20/2021) [facility] Housing Stability Vital Sign Unable to Pay for Housing in the Last Year: No Number of Places Lived in the Last Year: 1 Unstable Housing in the Last Year: No Shani Kate MD 10/05/242155 * Tejal No RN - 10/05/2024 9:20 PM EDT Pt to ED with neck pain, lightheaded, feeling like she may pass out, abdominal pain, LLQ, nausea, no vomiting. Chest pressure, cannot catch her breath. Reports that her vision is being effected. Beenhaving these same symptoms and episodes since Sunday. Was just evaluated at [place] ED, was discharged with anxiety medication. States they told her to come back if episodes come back and are baldo giovanna. documented in this [facility]08[facility]31-2025 Emergency department Triage note* Tejal No RN - 10/05/2024 9:20 PM EDT Pt to ED with neck pain, lightheaded, feeling like she may pass out, abdominal pain, LLQ, nausea, no vomiting. Chest pressure, cannot catch her breath. Reports that her vision is being effected. Beenhaving these same symptoms and episodes since Sunday. Was just evaluated at [place] ED, was discharged with anxiety medication. States they told her to come back if episodes come back and are baldo giovanna. [id number] Emergency department Note* Shani Kate MD - 10/05/2024 9:20 PM EDT EMERGENCY DEPARTMENT ENCOUNTER Pt Name: Dulce Maria Carty Birthdate 1995 Date of evaluation: 10/05/2024 ED Provider: Shani Kate MD CHIEF COMPLAINT Chief Complaint Patient presents with Chest Pain Headache Dizziness HISTORY OF PRESENT ILLNESS I wore appropriate PPE for the entirety of this encounter. HPI Dulce Maria Carty is a 28 y.o. female who presents to the emergency department with multiple complaints. She states that she has had 1 to 1-1/2 weeks of neck pain, chest pain, shortness of breath, palpitations, nausea, and dizziness. She feels like she is going to pass out. She has pain to the left side of her neck. As well as a dull headache. Patient had a breast biopsy lumpectomy 1 month ago. She had fluid drained 2 weeks ago. She currently is breast-feeding. She was seen at [place] emergency department earlier today. She had laboratory work, fluids provided as well as a CTA of the chest which demonstrated no evidence of pulmonary embolus. A 2 cm in diameter area of fluid collection was noted however. Nursing Notes were reviewed. Limitations to history: None Outside historians: None REVIEW OF SYSTEMS Review of Systems Constitutional: Positive for activity change. Negative for chills and fever. HENT: Negative for ear pain and sore throat. Eyes: Positive for visual disturbance. Negative for pain. Respiratory: Positive for shortness of breath. Negative for cough. Cardiovascular: Positive for chest pain and palpitations. Gastrointestinal: Positive for nausea. Negative for abdominal pain and vomiting. Genitourinary: Negative for dysuria and hematuria. Musculoskeletal: Positive for neck pain. Negative for arthralgias and back pain. Skin: Negative for color change and rash. Neurological: Positive for dizziness and weakness. Negative for seizures and syncope. All other systems reviewed and are negative. PAST MEDICAL HISTORY Medical History[1] SURGICAL HISTORY Surgical History[2] CURRENT MEDICATIONS Current Discharge Medication List CONTINUE these medications which have NOT CHANGED Details hydrOXYzine pamoate (Vistaril) 25 MG capsule Take 1 capsule (25 mg) by mouth every 6 hours as needed for anxiety for up to 10 days. Qty: 30 capsule, Refills: 0 Magnesium 300 MG capsule Take by mouth. MV-Min-Fe Fum-FA-DHA ( 1 PO) Take by mouth. Probiotic Product (PROBIOTIC DAILY PO) Take by mouth. ALLERGIES Nitrofurantoin, Alprazolam, and Quetiapine FAMILY HISTORY Family History[3] SOCIAL HISTORY Social History[4] SCREENINGS PHYSICAL EXAM ED Triage Vitals Temp Heart Rate Resp BP 10/05/24212910/05/24212810/05/24212410/05/242128 36.7 C (98.1 F) 104 18 (!) 147/95 SpO2 Temp Source Heart Rate Source Patient Position 10/05/24212810/05/242129 -- -- 100 % Oral BP Location FiO2 (%) -- -- Physical Exam Vitals and nursing note reviewed. Constitutional: General: She is not in acute distress. Appearance: She is well-developed. Comments: The patient is a young female found lying on a cart. She is afebrile. Her heart rate is 104. She appears anxious. Otherwise she is in no acute distress. HENT: Head: Normocephalic and atraumatic. Eyes: Conjunctiva/sclera: Conjunctivae normal. Cardiovascular: Rate and Rhythm: Normal rate and regular rhythm. Heart sounds: No murmur heard. Pulmonary: Effort: Pulmonary effort is normal. No respiratory distress. Breath sounds: Normal breath sounds. Abdominal: Palpations: Abdomen is soft. Tenderness: There is no abdominal tenderness. Musculoskeletal: General: No swelling. Cervical back: Neck supple. Skin: General: Skin is warm and dry. Capillary Refill: Capillary refill takes less than 2 seconds. Neurological: Mental Status: She is alert. Psychiatric: Mood and Affect: Mood normal. DIAGNOSTIC RESULTS RADIOLOGY (Per Emergency Physician): Interpretation per the Radiologist below, if available at the time of this note: No orders to display EKG Interpretation: An EKG is obtained and interpreted by myself. It demonstrates a sinus tachycardia with a rate of 111. QRS axis is [address] segment findings are found. LABS: Labs Reviewed - No data to display All other labs were within normal range or not returned as of this dictation. EMERGENCY DEPARTMENT COURSE and DIFFERENTIAL DIAGNOSIS/MDM: Vitals: Vitals: 10/05/24 2125 10/05/24 2129 10/05/24 2130 BP: (!) 147/95 Pulse: 104 Resp: 18 20 Temp: 36.7 C (98.1 F) TempSrc: Oral SpO2: 100% Weight: 74.8 kg (165 lb) Height: 1.702 m (5' 7") Medications Administered in the ED: Medications cephalexin (Keflex) capsule 500 mg (has no administration in time range) I Shani Kate MD am the ed teacher of record. PROCEDURES: Unless otherwise noted below, none Procedures Differential Diagnosis Considerations: I have reviewed all of the patient's lab tests. Additionally when she was in the emergency department in [place] she had a head CAT scan that was reported to be normal. I do not find any significant abnormalities with the laboratory testing that was obtained earlier today other than a very mildly low potassium level. The chest CT scan did demonstrate a fluid collection. It was suspected thatthis was from a seroma. It is possible that this is an early infection. ED testing and evaluation will be obtained to help differentiate these diagnostic possibilities anddetermine the most likely cause. Sources of History: I evaluated other historical sources including previous outpatient records and admission records. ED Course: In the emergency department I initially evaluated the patient with a history and physical examination in order to determine diagnostic testing and therapeutic care. On the basis of this history and physical examination the patient was placed on Keflex for treatment of the fluid collection seen on the chest CT scan. Reassessment: None Consideration of Admission/Observation: I considered admission for this patient, however, at this time the patient appears to be stable. I do not believe that the patient would benefit from admission at this time. I believe the patient canfollow-up with the primary care physician. The patient is advised to return to the emergency department if symptoms change or worsen where admission may need to be considered at a another time. Independent Interpretation of Tests: I independently evaluated the results of the patient's diagnostic testing in the context of the patient's presentation. Diagnostic Tests Considered but not Performed: No other diagnostic tests are considered at this time. Prescription Medications Considered but not Prescribed: Keflex as prescribed. Chronic Conditions Affecting Care: None FINAL IMPRESSION 1. Dizziness 2. Seroma of breast DISPOSITION Discharge 10/05/2024 09:49:48 PM PATIENT REFERRED TO: Zachariah Rome [place] [id number] In 2 days DISCHARGE MEDICATIONS: Current Discharge Medication List START taking these medications Details cephalexin (Keflex) 250 MG capsule Take 1 capsule (250 mg) by mouth 4 times daily for 10 days. Qty: 40 capsule, Refills: 0 (Comment: Please note this report has been produced using speech recognition software and may contain errors related to that system including errors in grammar, punctuation, and spelling, as well as words and phrases that may be inappropriate. If there are any questions or concerns please feel freeto contact the dictating provider for clarification.) Shani Kate MD (electronically signed) Emergency Medicine Provider [1] Past Medical History: Diagnosis Date Asthma 09/2016 Breast cyst, left 06/03/2021 Chronic sinusitis 12/2016 ENT eval per [facility] GERD (gastroesophageal reflux disease) 07/2016 EGD per [facility] Hypothyroid 2008 IBS (irritable bowel syndrome) 02/2016 constipation - Colonoscopy per [facility] [2] Past Surgical History: Procedure Laterality Date COLONOSCOPY 02/2016 [facility] TONSILLECTOMY (HISTORICAL) 1999 UPPER GASTROINTESTINAL ENDOSCOPY 11/2016 [facility] [3] Family History Problem Relation Name Age of Onset Ovarian cancer Neg Hx Diabetes Mother 35.00 on insulin at > 50 Lung cancer Maternal Grandfather Diabetes Maternal Cousin Gayle Colon cancer Maternal Grandmother 80.00 No Known Problems Paternal Grandmother Thyroid cancer Maternal Cousin Gayle Pancreatic cancer Mother Breast cancer Neg Hx No Known Problems Paternal Grandfather Other ([id number]) Father Danya 54.00 MVA in 2011 No Known Problems Sister Prostate cancer Maternal Grandfather [4] Social History Socioeconomic History Marital status: Tobacco Use Smoking status: Never Smokeless tobacco: Former Quit date: 04/05/2016 Vaping Use Vaping status: Never Used Substance and Sexual Activity Alcohol use: Not Currently Drug use: No Comment: caffiene: none Sexual activity: Yes Social History Narrative to Emile Nielson) since 07/21. NS or drinker, no children. 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 Social Drivers of Health Financial Resource Strain: Low Risk (04/20/2021) Received from [facility] Overall Financial Resource Strain (CARDIA) Difficulty of Paying Living Expenses: Not hard at all Food Insecurity: No Food Insecurity (04/20/2021) Received from [facility] Hunger Vital Sign Worried About Running Out of Food in the Last Year: Never true Ran Out of Food in the Last Year: Never true Transportation Needs: No Transportation Needs (04/20/2021) Received from [facility] PRAPARE - Transportation Lack of Transportation (Medical): No Lack of Transportation (Non-Medical): No Physical Activity: Sufficiently Active (04/20/2021) Received from [facility] Exercise Vital Sign Days of Exercise per Week: 5 days Minutes of Exercise per Session: 30 min Stress: No Stress Concern Present (04/20/2021) Received from [facility] [place] [employer] - Occupational Stress Questionnaire Feeling of Stress : Not at all Social Connections: Moderately Integrated (04/20/2021) Received from [facility] Social Connection and Isolation Panel [NHANES] Frequency of Communication with Friends and Family: More than three times a week Frequency of Social Gatherings with Friends and Family: Twice a week Attends Mosque Services: More than 4 times per year Active Member of Clubs or Organizations: No Attends Club or Organization Meetings: Never Marital Status: Housing Stability: Low Risk (04/20/2021) Received from [facility] Housing Stability Vital Sign Unable to Pay for Housing in the Last Year: No Number of Places Lived in the Last Year: 1 Unstable Housing in the Last Year: No Shani Kate MD 10/05/242155 [id number] Discharge instructions* Discharge Instructions* Liang Combs MD - 10/05/2024 6:41 PM EDT You were seen in the Emergency Department for fast heart rate, lightheadedness, tingling, and pain. Your workup here showed that you have no dangerous cause of your symptoms. You should drink plenty of fluids and get plenty of rest. Follow-up with your primary care providerand cardiology. Return to the Emergency Department if you have: - Severe Pain - High fever (102F) - Any other symptoms that concern you Please sign up for MyChart and review all results from your visit today. [facility] with any questions or concerns about your results today. Thank you for choosing [facility] for your care. Sincerely, Dr. Boogie Combs documented in this encounterSOhioHealth Van Wert [id number] Emergency department Note* Tita Valente RN - 10/05/2024 3:[address] Combs while performing L breast examination. [id number] Emergency department Note* Tita Valente RN - 10/05/2024 3:[address] Combs while performing L breast examination. * Liang Combs MD - 10/05/2024 2:05 PM EDT Emergency Department Encounter [facility] ED Patient: Dulce Maria Carty : 1995 Date of Evaluation: 10/05/2024 ED Supervising Physician: Liang Combs MD I independently examined and evaluated Dulce Maria Carty. This will serve as my Supervisory note and shared attestation. I did perform a substantive portion of the visit including all aspects of the Medical Decision Making. I wore appropriate PPE for the entirety of this encounter. In brief, Dulce Maria Carty is a 28 y.o. that presents to the emergency department with neck pain, whobody tingling, racing heart, chest tightness, shortness of breath, intermittent generalized weakness for 2 weeks. Pt notes having a lumpectomy about 7 weeks ago and "fluid drained" two weeks ago. Pt says that it was milk that was drained. Pt says still having some redness, swelling and pain around the lumpectomy site. Also feels shaky. Neck pain radiates to head and jaw. Recently had a CT head that was normal. Focused exam: Constitutional: No acute distress HEENT:Head: Atraumatic Eyes: Conjunctivae normal. PERRLA, EOMI, visual redmond full ENT: Mucous membranes moist. Normal oropharynx Neck: Normal ROM, supple CV: RRR, radial pulses equal RESP: CTAB, good respiratory effort, no increased wob GI: Abdomen soft, non-tender, non-distended, +BS, no guarding or rebound tenderness MSK: Normal bulk and tone, no gross deformity EXTR: Warm and well perfused, no edema SKIN: Well-healing incision over the left lateral breast with no surrounding erythema or underlyinginduration or fluctuance. No edema. No associated discharge. PSYCH: Appropriate affect, cooperative behavior NEURO: Alert and oriented x 3, face symmetric, no slurred speech, CN2-12 intact, motor and sensory intact and equal bilaterally. No upper or lower extremity drift. Cerebellar (finger-nose, [id number]) normal. Brief ED course/MDM: Patient appears nontoxic. Hypertensive initially tachycardic. When I reassessed the patient at approximately 1520, heart rate had improved to the 90s-100s with IV NS running. I examined the left breast with female RN as features reporter. There is a well-healing incision over the left lateral breast with no surrounding erythema or underlying induration or fluctuance. No edema. Noassociated discharge. EKG with sinus tachycardia. CBC with no leukocytosis, anemia, thrombocytopenia. BMP with minimal hypokalemia. Magnesium normal lactic acid normal. TSH and free T4 normal. Urinalysis unremarkable. hCG negative.VBG unremarkable. CTA angiogram of the chest showed no PE. CT showed fluid in the breast for the patient had lumpectomy. I doubt this is an abscess given the patient recently had it drained showed milk and there is no overlying erythema or warmth or induration or tenderness. Patient is also afebrile and has a normal white blood cell count. The tachycardia is sinus tachycardia. She was given p.o. potassium for the minimal hypokalemia but I do not think this is low enough to be causing her symptoms. Her electrolytes are otherwise normal.She has no cardiac risk factors. Her heart rate improved after IV fluids. There does appear to be an element of anxiety and we ordered a dose of Vistaril p.o. which the patient initially declined shyam requested so she was given a dose here and prescribed the same. Recommended she follow-up withher breast surgeon and also with cardiology for the tachycardia. Discharged home in good condition. Diagnoses as of 10/05/242019 Tachycardia Near syncope I personally saw the patient and made/approved the management plan and take responsibility for the patient management. All diagnostic, treatment, and disposition decisions were made by myself in conjunction with the resident. For all further details of the patient's emergency department visit, please see their documentation. (Comment: Please note this report has been produced using speech recognition software and may contain errors related to that system including errors in grammar, punctuation, and spelling, as well as words and phrases that may be inappropriate. If there are any questions or concerns please feel freeto contact the dictating provider for clarification.) Liang Combs MD Acute Care [facility] Liang Combs MD 10/05/242019 * Otilio Kaur DO - 10/05/2024 2:05 PM EDT EMERGENCY DEPARTMENT ENCOUNTER Pt Name: Dulce Maria Carty Birthdate 1995 Date of evaluation: 10/05/2024 ED Provider: Otilio Kaur DO CHIEF COMPLAINT Chief Complaint Patient presents with Neck Pain Chest Pain Shortness of Breath HISTORY OF PRESENT ILLNESS (Location/Symptom, Timing/Onset, Context/Setting, Quality, Duration, Modifying Factors, Severity) Note limiting factors. I wore appropriate PPE for the entirety of this encounter. HPI Dulce Maria Carty is a 28 y.o. who presents to the emergency department for neck pain and chest pain. Patient explains she was on a trip with family in [place] when she developed symptoms that concerned her,prompted evaluation in the ED. She drove 3.5 hours for evaluation. Symptoms include chills, tremors, intermittent chest pain, shortness of breath, palpitations, nausea, dizziness like she is going topass out, left-sided neck pain, and a dull headache. Also reports subjective right sided diminishedsensation and full body weakness when her headache comes on. Denies fevers, vomiting, diarrhea, urinary symptoms, abdominal pain. Recent travel. Known issues getting due to hormone imbalance, last delivery 1 year ago. No recent injuries. No history of blood clots. History of leftbreast lump s/p lumpectomy with multiple complications including pain and erythema. Has been evaluated for similar symptoms in April with head CT, was negative. Nursing Notes were reviewed. Limitations to history: None Outside historians: Family spouse REVIEW OF SYSTEMS Review of Systems Pertinent positives and negatives as per HPI. PAST MEDICAL HISTORY Medical History[1] SURGICAL HISTORY Surgical History[2] CURRENT MEDICATIONS Previous Medications MAGNESIUM 300 MG CAPSULE Take by mouth. MV-MIN-FE FUM-FA-DHA ( 1 PO) Take by mouth. PROBIOTIC PRODUCT (PROBIOTIC DAILY PO) Take by mouth. ALLERGIES Nitrofurantoin, Alprazolam, and Quetiapine FAMILY HISTORY Family History[3] SOCIAL HISTORY Social History[4] SCREENINGS PHYSICAL EXAM ED Triage Vitals [10/05/24 1407] Temp Heart Rate Resp BP 36.5 C (97.7 F) (!) 135 18 (!) 174/107 SpO2 Temp Source Heart Rate Source Patient Position 98 % Temporal Monitor -- BP Location FiO2 (%) -- -- Physical Exam Vitals and nursing note reviewed. Constitutional: Appearance: She is well-developed. She is ill-appearing. Comments: Appears very uncomfortable, tremulous HENT: Head: Normocephalic and atraumatic. Eyes: Extraocular Movements: Extraocular movements intact. Pupils: Pupils are equal, round, and reactive to light. Cardiovascular: Rate and Rhythm: Regular rhythm. Tachycardia present. Heart sounds: Normal heart sounds. Pulmonary: Effort: Pulmonary effort is normal. No tachypnea or respiratory distress. Breath sounds: Normal breath sounds. No decreased breath sounds, wheezing, rhonchi or rales. Chest: Comments: Deferred breast exam Abdominal: Palpations: Abdomen is soft. Tenderness: There is no abdominal tenderness. Musculoskeletal: Right lower leg: No tenderness. No edema. Left lower leg: No tenderness. No edema. Skin: General: Skin is warm and dry. Capillary Refill: Capillary refill takes less than 2 seconds. Neurological: General: No focal deficit present. Mental Status: She is alert and oriented to person, place, and time. Comments: NIH 0 DIAGNOSTIC RESULTS RADIOLOGY (Per Emergency Physician): Interpretation per the Radiologist below, if available at the time of this note: CTA chest angiogram w and/or wo IV contrast (Results Pending) LABS: Labs Reviewed CBC WITH AUTO DIFFERENTIAL - Normal Result Value Auto WBC 5.4 RBC 5.03 Hemoglobin 14.2 Hematocrit 42.1 MCV 83.7 MCH 28.2 MCHC 33.7 RDW 12.0 Platelets 204 MPV 10.4 nRBC 0.0 Neutrophils Relative 57.7 Lymphocytes Relative 35.1 Monocytes Relative 5.7 Eosinophils Relative 0.7 Basophils Relative 0.6 Immature Grans % 0.2 Neutrophils Absolute 3.1 Lymphocytes Absolute 1.9 Monocytes Absolute 0.3 Eosinophils Absolute 0.0 Basophils Absolute 0.0 Immature Grans Absolute 0.0 COMPLETE URINALYSIS WITH REFLEX TO CULTURE - Normal Color, Urine Light Yellow Clarity, Urine Clear pH, Urine 5.5 Leukocytes, Urine Negative Nitrite, Urine Negative Protein, Urine Negative Glucose, Urine Normal Bilirubin, Urine Negative Ketones, Urine Negative Urobilinogen, Urine Normal Blood, Urine Negative SPECIFIC GRAVITY OF URINE (NUMERIC) 1.012 Narrative: A specimen with <=10 WBC is not consistent with inflammation. This specimen will not reflex to aurine culture. BLOOD CULTURE BLOOD CULTURE BASIC METABOLIC PANEL HCG QUALITATIVE URINE LACTIC ACID WITH REFLEX FREE T4 THYROID STIMULATING HORMONE All other labs were within normal range or not returned as of this dictation. EMERGENCY DEPARTMENT COURSE and DIFFERENTIAL DIAGNOSIS/MDM: Vitals: Vitals: 10/05/24 1407 10/05/24 1411 10/05/24 1412 BP: (!) 174/107 Pulse: (!) 135 Resp: 18 Temp: 36.5 C (97.7 F) TempSrc: Temporal SpO2: 98% 100% Weight: 74.8 kg (165 lb) Height: 1.676 m (5' 6") The patient presented with a chief complaint of chest pain, shortness of breath, neck pain. Vitals on arrival significant for tachycardia and elevated blood pressure but otherwise unremarkable. The differential diagnosis associated with this patient's presentation includes sepsis, PE, thyroid dysfunction, electrolyte abnormality. Our workup consisted of ordering/reviewing CBC, BMP, UA, hCG, thyroid panel, lactic acid, CTA chest, EKG. 1L NS bolus and Vistaril given for symptomatic relief. At time of signout, pending workup. I discussed the case with Dr. Mane, he will assume further care for this patient for this visit. Please see his note for further details. Diagnoses as of 10/05/24 1840 Tachycardia Near syncope ED Medications managed: Medications hydrOXYzine pamoate (Vistaril) capsule 25 mg (has no administration in time range) sodium chloride 0.9 % bolus 1,000 mL (1,000 mL IntraVENous New Bag 10/05/24 1502) PROCEDURES: Unless otherwise noted below, none Procedures FINAL IMPRESSION No diagnosis found. DISPOSITION PATIENT REFERRED TO: No follow-up provider specified. DISCHARGE MEDICATIONS: New Prescriptions No medications on file (Comment: Please note this report has been produced using speech recognition software and may contain errors related to that system including errors in grammar, punctuation, and spelling, as well as words and phrases that may be inappropriate. If there are any questions or concerns please feel freeto contact the dictating provider for clarification.) Otilio Kaur DO (electronically signed) Emergency Medicine Provider Otilio Kaur DO Resident 10/05/24 1523 [1] Past Medical History: Diagnosis Date Asthma 09/2016 Breast cyst, left 06/03/2021 Chronic sinusitis 12/2016 ENT eval [facility] GERD (gastroesophageal reflux disease) 07/2016 EGD per [facility] Hypothyroid 2008 IBS (irritable bowel syndrome) 02/2016 constipation - Colonoscopy per [facility] [2] Past Surgical History: Procedure Laterality Date COLONOSCOPY 02/2016 [facility] TONSILLECTOMY (HISTORICAL) 1999 UPPER GASTROINTESTINAL ENDOSCOPY 11/2016 [facility] [3] Family History Problem Relation Name Age of Onset Ovarian cancer Neg Hx Diabetes Mother 35.00 on insulin at > 50 Lung cancer Maternal Grandfather Diabetes Maternal Cousin Gayle Colon cancer Maternal Grandmother 80.00 No Known Problems Paternal Grandmother Thyroid cancer Maternal Cousin Gayle Pancreatic cancer Mother Breast cancer Neg Hx No Known Problems Paternal Grandfather Other ([id number]) Father Danya 54.00 MVA in 2011 No Known Problems Sister Prostate cancer Maternal Grandfather [4] Social History Socioeconomic History Marital status: Tobacco Use Smoking status: Never Smokeless tobacco: Former Quit date: 04/05/2016 Vaping Use Vaping status: Never Used Substance and Sexual Activity Alcohol use: Not Currently Drug use: No Comment: caffiene: none Sexual activity: Yes Social History Narrative to Emile Nielson) since 07/21. NS or drinker, no children. 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 Social Drivers of Health Financial Resource Strain: Low Risk (04/20/2021) Received from [facility] Overall Financial Resource Strain (CARDIA) Difficulty of Paying Living Expenses: Not hard at all Food Insecurity: No Food Insecurity (04/20/2021) Received from [facility] Hunger Vital Sign Worried About Running Out of Food in the Last Year: Never true Ran Out of Food in the Last Year: Never true Transportation Needs: No Transportation Needs (04/20/2021) Received from [facility] PRAPARE - Transportation Lack of Transportation (Medical): No Lack of Transportation (Non-Medical): No Physical Activity: Sufficiently Active (04/20/2021) Received from [facility] Exercise Vital Sign Days of Exercise per Week: 5 days Minutes of Exercise per Session: 30 min Stress: No Stress Concern Present (04/20/2021) Received from [facility] [employer] [place] [employer] - Occupational Stress Questionnaire Feeling of Stress : Not at all Social Connections: Moderately Integrated (04/20/2021) Received from [facility] Social Connection and Isolation Panel [NHANES] Frequency of Communication with Friends and Family: More than three times a week Frequency of Social Gatherings with Friends and Family: Twice a week Attends Mosque Services: More than 4 times per year Active Member of Clubs or Organizations: No Attends Club or Organization Meetings: Never Marital Status: Housing Stability: Low Risk (04/20/2021) Received from [facility] Housing Stability Vital Sign Unable to Pay for Housing in the Last Year: No Number of Places Lived in the Last Year: 1 Unstable Housing in the Last Year: No Cosigned by Liang Combs MD at 10/05/2024 10:48 PM EDT * Cherry Mane MD - 10/05/2024 2:05 PM EDT Emergency Department Encounter Location: [facility] ED Patient: Dulce Maria Carty : 1995 Date of evaluation: 10/05/2024 ED Provider: Cherry Mane MD Time received sign-out: 4:18 PM Dulce Maria Carty was checked out to me by Dr. Kaur. Please see his/her initial documentation for details of the patient's initial ED presentation, physical exam and completed studies. In brief, Dulce Maria Carty is a 28 y.o. adult that presented to the emergency department for multiplecomplaints. Had roughly a week and a half for palpitations, shortness of breath, neck pain. Workup currently unremarkable, pending CT angio chest due to concerns for PE to rule out tachycardia. Disposition pending: CT angio Final ED Course and MDM: Dulce Maria Carty is a 28 y.o. whose care was signed out to me by the outgoing provider. In brief, patient presents for multiple complaints, workup so far unremarkable, CT angio without concerns for PE,pneumonia, or any other intrathoracic abnormality. Mild fluid collection roughly 2 centimeter in the collection. Ultimately an additional VBG and mag was added on to rule out anxiety related causes versus electrolyte. No remarkable finding on VBG or mag. Had a discussion at bedside with patient, where attending showed her all her results, tachycardia resolved on its own. Patient was discharged with appropriate follow-up and return precautions. Medications hydrOXYzine pamoate (Vistaril) capsule 25 mg (has no administration in time range) sodium chloride 0.9 % bolus 1,000 mL (1,000 mL IntraVENous New Bag 10/05/24 3377) I have reviewed and interpreted all of the currently available lab results and diagnostics from this visit: Results for orders placed or performed during the hospital encounter of 10/05/24 ECG 12 lead Collection Time: 10/05/24 2:14 PM Result Value Ref Range Heart Rate 131 bpm QRSD Interval 102 ms QT Interval 314 ms QTC Interval 464 ms P [place] 57 degrees QRS [place] 40 degrees T Wave [place] 16 degrees [place] Interval 136 ms CBC auto differential Collection Time: 10/05/24 2:58 PM Result Value Ref Range Auto WBC 5.4 3.6 - 10.7 10*3/uL RBC 5.03 3.80 - 5.20 10*6/uL Hemoglobin 14.2 11.7 - 16.0 g/dL Hematocrit 42.1 35.0 - 47.0 % MCV 83.7 77.0 - 99.0 fL MCH 28.2 26.0 - 34.0 pg MCHC 33.7 30.5 - 36.0 % RDW 12.0 11.5 - 15.0 % Platelets 204 140 - 440 10*3/uL MPV 10.4 9.0 - 12.7 fL nRBC 0.0 0.0 - 2.0 /100 WBCs Neutrophils Relative 57.7 38.0 - 82.0 % Lymphocytes Relative 35.1 15.0 - 45.0 % Monocytes Relative 5.7 5.0 - 13.0 % Eosinophils Relative 0.7 0.0 - 6.0 % Basophils Relative 0.6 0.0 - 2.0 % Immature Grans % 0.2 0.0 - 2.0 % Neutrophils Absolute 3.1 1.8 - 7.5 10*3/uL Lymphocytes Absolute 1.9 1.0 - 4.3 10*3/uL Monocytes Absolute 0.3 0.0 - 0.9 10*3/uL Eosinophils Absolute 0.0 0.0 - 0.5 10*3/uL Basophils Absolute 0.0 0.0 - 0.2 10*3/uL Immature Grans Absolute 0.0 <0.1 10*3/uL Basic metabolic panel Collection Time: 10/05/24 2:58 PM Result Value Ref Range SODIUM 141 136 - 145 mmol/L POTASSIUM 3.4 (L) 3.5 - 5.1 mmol/L CHLORIDE 106 98 - 107 mmol/L CARBON DIOXIDE 23 22 - 29 mmol/L UREA NITROGEN 10 8 - 21 mg/dL CREATININE 0.86 0.57 - 1.11 mg/dL GLUCOSE 124 (H) 74 - 100 mg/dL CALCIUM 9.1 8.4 - 10.2 mg/dL ANION GAP 12 3 - 13 mmol/L eGFR >90.0 >60.0 mL/min/1.73m*2 Lactic acid with reflex Collection Time: 10/05/24 2:58 PM Result Value Ref Range LACTIC ACID 1.3 0.5 - 2.2 mmol/L T4, free Collection Time: 10/05/24 3:02 PM Result Value Ref Range FREE T4 0.99 0.70 - 1.48 ng/dL TSH Collection Time: 10/05/24 3:02 PM Result Value Ref Range THYROID STIMULATING HORMONE 0.61 0.35 - 4.94 uIU/mL hCG, urine, qualitative Collection Time: 10/05/24 3:09 PM Result Value Ref Range HCG,URINE QUAL Negative Negative Complete Urinalysis with reflex to Culture Collection Time: 10/05/24 3:09 PM Result Value Ref Range Color, Urine Light Yellow Lt. Yellow Clarity, Urine Clear Clear pH, Urine 5.5 5.0 - 8.0 pH Leukocytes, Urine Negative Negative Prabhu/uL Nitrite, Urine Negative Negative Protein, Urine Negative Negative mg/dL Glucose, Urine Normal Normal (<70) mg/dL Bilirubin, Urine Negative Negative mg/dL Ketones, Urine Negative Negative mg/dL Urobilinogen, Urine Normal Normal (0-1) mg/dL Blood, Urine Negative Negative mg/dL SPECIFIC GRAVITY OF URINE (NUMERIC) 1.012 1.005 - 1.030 CTA chest angiogram w and/or wo IV contrast (Results Pending) Final Impression No diagnosis found. DISPOSITION (Please note that portions of this note may have been completed with a voice recognition program. Efforts were made to edit the dictations but occasionally words are mis-transcribed.) MD Cherry Alvarez MD Resident 10/05/24 9855 Cosigned by Liang Combs MD at 10/05/2024 11:13 PM EDT * Ana Drake RN - 10/05/2024 2:05 PM EDT Pt arrives with complaints of neck pain, whole body tingling, heart racing, chest tightness, and SOB. States she has a feeling like she's going to pass out. Pt had a lumpectomy about 7 weeks ago. documented in this [facility]08-31-2025 Emergency department Triage note* Ana Drake RN - 10/05/2024 2:05 PM EDT Pt arrives with complaints of neck pain, whole body tingling, heart racing, chest tightness, and SOB. States she has a feeling like she's going to pass out. Pt had a lumpectomy about 7 weeks ago. [id number] Emergency department Note* Liang Combs MD - 10/05/2024 2:05 PM EDT Emergency Department Encounter [facility] ED Patient: Dulce Maria Carty : 1995 Date of Evaluation: 10/05/2024 ED Supervising Physician: Liang Combs MD I independently examined and evaluated Dulce Maria Carty. This will serve as my Supervisory note and shared attestation. I did perform a substantive portion of the visit including all aspects of the Medical Decision Making. I wore appropriate PPE for the entirety of this encounter. In brief, Dulce Maria Carty is a 28 y.o. that presents to the emergency department with neck pain, whobody tingling, racing heart, chest tightness, shortness of breath, intermittent generalized weakness for 2 weeks. Pt notes having a lumpectomy about 7 weeks ago and "fluid drained" two weeks ago. Pt says that it was milk that was drained. Pt says still having some redness, swelling and pain around the lumpectomy site. Also feels shaky. Neck pain radiates to head and jaw. Recently had a CT head that was normal. Focused exam: Constitutional: No acute distress HEENT:Head: Atraumatic Eyes: Conjunctivae normal. PERRLA, EOMI, visual redmond full ENT: Mucous membranes moist. Normal oropharynx Neck: Normal ROM, supple CV: RRR, radial pulses equal RESP: CTAB, good respiratory effort, no increased wob GI: Abdomen soft, non-tender, non-distended, +BS, no guarding or rebound tenderness MSK: Normal bulk and tone, no gross deformity EXTR: Warm and well perfused, no edema SKIN: Well-healing incision over the left lateral breast with no surrounding erythema or underlyinginduration or fluctuance. No edema. No associated discharge. PSYCH: Appropriate affect, cooperative behavior NEURO: Alert and oriented x 3, face symmetric, no slurred speech, CN2-12 intact, motor and sensory intact and equal bilaterally. No upper or lower extremity drift. Cerebellar (finger-nose, [id number]) normal. Brief ED course/MDM: Patient appears nontoxic. Hypertensive initially tachycardic. When I reassessed the patient at approximately 1520, heart rate had improved to the 90s-100s with IV NS running. I examined the left breast with female RN as features reporter. There is a well-healing incision over the left lateral breast with no surrounding erythema or underlying induration or fluctuance. No edema. Noassociated discharge. EKG with sinus tachycardia. CBC with no leukocytosis, anemia, thrombocytopenia. BMP with minimal hypokalemia. Magnesium normal lactic acid normal. TSH and free T4 normal. Urinalysis unremarkable. hCG negative.VBG unremarkable. CTA angiogram of the chest showed no PE. CT showed fluid in the breast for the patient had lumpectomy. I doubt this is an abscess given the patient recently had it drained showed milk and there is no overlying erythema or warmth or induration or tenderness. Patient is also afebrile and has a normal white blood cell count. The tachycardia is sinus tachycardia. She was given p.o. potassium for the minimal hypokalemia but I do not think this is low enough to be causing her symptoms. Her electrolytes are otherwise normal.She has no cardiac risk factors. Her heart rate improved after IV fluids. There does appear to be an element of anxiety and we ordered a dose of Vistaril p.o. which the patient initially declined shyam requested so she was given a dose here and prescribed the same. Recommended she follow-up withher breast surgeon and also with cardiology for the tachycardia. Discharged home in good condition. Diagnoses as of 10/05/242019 Tachycardia Near syncope I personally saw the patient and made/approved the management plan and take responsibility for the patient management. All diagnostic, treatment, and disposition decisions were made by myself in conjunction with the resident. For all further details of the patient's emergency department visit, please see their documentation. (Comment: Please note this report has been produced using speech recognition software and may contain errors related to that system including errors in grammar, punctuation, and spelling, as well as words and phrases that may be inappropriate. If there are any questions or concerns please feel freeto contact the dictating provider for clarification.) Liang Combs MD Acute Care [facility] Liang Combs MD 10/05/242019 [id number] Emergency department Note* Otilio Kaur DO - 10/05/2024 2:05 PM EDT EMERGENCY DEPARTMENT ENCOUNTER Pt Name: Dulce Maria Carty Birthdate 1995 Date of evaluation: 10/05/2024 ED Provider: Otilio Kaur DO CHIEF COMPLAINT Chief Complaint Patient presents with Neck Pain Chest Pain Shortness of Breath HISTORY OF PRESENT ILLNESS (Location/Symptom, Timing/Onset, Context/Setting, Quality, Duration, Modifying Factors, Severity) Note limiting factors. I wore appropriate PPE for the entirety of this encounter. HPI Dulce Maria Carty is a 28 y.o. who presents to the emergency department for neck pain and chest pain. Patient explains she was on a trip with family in [place] when she developed symptoms that concerned her,prompted evaluation in the ED. She drove 3.5 hours for evaluation. Symptoms include chills, tremors, intermittent chest pain, shortness of breath, palpitations, nausea, dizziness like she is going topass out, left-sided neck pain, and a dull headache. Also reports subjective right sided diminishedsensation and full body weakness when her headache comes on. Denies fevers, vomiting, diarrhea, urinary symptoms, abdominal pain. Recent travel. Known issues getting due to hormone imbalance, last delivery 1 year ago. No recent injuries. No history of blood clots. History of leftbreast lump s/p lumpectomy with multiple complications including pain and erythema. Has been evaluated for similar symptoms in April with head CT, was negative. Nursing Notes were reviewed. Limitations to history: None Outside historians: Family spouse REVIEW OF SYSTEMS Review of Systems Pertinent positives and negatives as per HPI. PAST MEDICAL HISTORY Medical History[1] SURGICAL HISTORY Surgical History[2] CURRENT MEDICATIONS Previous Medications MAGNESIUM 300 MG CAPSULE Take by mouth. MV-MIN-FE FUM-FA-DHA ( 1 PO) Take by mouth. PROBIOTIC PRODUCT (PROBIOTIC DAILY PO) Take by mouth. ALLERGIES Nitrofurantoin, Alprazolam, and Quetiapine FAMILY HISTORY Family History[3] SOCIAL HISTORY Social History[4] SCREENINGS PHYSICAL EXAM ED Triage Vitals [10/05/24 1407] Temp Heart Rate Resp BP 36.5 C (97.7 F) (!) 135 18 (!) 174/107 SpO2 Temp Source Heart Rate Source Patient Position 98 % Temporal Monitor -- BP Location FiO2 (%) -- -- Physical Exam Vitals and nursing note reviewed. Constitutional: Appearance: She is well-developed. She is ill-appearing. Comments: Appears very uncomfortable, tremulous HENT: Head: Normocephalic and atraumatic. Eyes: Extraocular Movements: Extraocular movements intact. Pupils: Pupils are equal, round, and reactive to light. Cardiovascular: Rate and Rhythm: Regular rhythm. Tachycardia present. Heart sounds: Normal heart sounds. Pulmonary: Effort: Pulmonary effort is normal. No tachypnea or respiratory distress. Breath sounds: Normal breath sounds. No decreased breath sounds, wheezing, rhonchi or rales. Chest: Comments: Deferred breast exam Abdominal: Palpations: Abdomen is soft. Tenderness: There is no abdominal tenderness. Musculoskeletal: Right lower leg: No tenderness. No edema. Left lower leg: No tenderness. No edema. Skin: General: Skin is warm and dry. Capillary Refill: Capillary refill takes less than 2 seconds. Neurological: General: No focal deficit present. Mental Status: She is alert and oriented to person, place, and time. Comments: NIH 0 DIAGNOSTIC RESULTS RADIOLOGY (Per Emergency Physician): Interpretation per the Radiologist below, if available at the time of this note: CTA chest angiogram w and/or wo IV contrast (Results Pending) LABS: Labs Reviewed CBC WITH AUTO DIFFERENTIAL - Normal Result Value Auto WBC 5.4 RBC 5.03 Hemoglobin 14.2 Hematocrit 42.1 MCV 83.7 MCH 28.2 MCHC 33.7 RDW 12.0 Platelets 204 MPV 10.4 nRBC 0.0 Neutrophils Relative 57.7 Lymphocytes Relative 35.1 Monocytes Relative 5.7 Eosinophils Relative 0.7 Basophils Relative 0.6 Immature Grans % 0.2 Neutrophils Absolute 3.1 Lymphocytes Absolute 1.9 Monocytes Absolute 0.3 Eosinophils Absolute 0.0 Basophils Absolute 0.0 Immature Grans Absolute 0.0 COMPLETE URINALYSIS WITH REFLEX TO CULTURE - Normal Color, Urine Light Yellow Clarity, Urine Clear pH, Urine 5.5 Leukocytes, Urine Negative Nitrite, Urine Negative Protein, Urine Negative Glucose, Urine Normal Bilirubin, Urine Negative Ketones, Urine Negative Urobilinogen, Urine Normal Blood, Urine Negative SPECIFIC GRAVITY OF URINE (NUMERIC) 1.012 Narrative: A specimen with <=10 WBC is not consistent with inflammation. This specimen will not reflex to aurine culture. BLOOD CULTURE BLOOD CULTURE BASIC METABOLIC PANEL HCG QUALITATIVE URINE LACTIC ACID WITH REFLEX FREE T4 THYROID STIMULATING HORMONE All other labs were within normal range or not returned as of this dictation. EMERGENCY DEPARTMENT COURSE and DIFFERENTIAL DIAGNOSIS/MDM: Vitals: Vitals: 10/05/24 1407 10/05/24 1411 10/05/24 1412 BP: (!) 174/107 Pulse: (!) 135 Resp: 18 Temp: 36.5 C (97.7 F) TempSrc: Temporal SpO2: 98% 100% Weight: 74.8 kg (165 lb) Height: 1.676 m (5' 6") The patient presented with a chief complaint of chest pain, shortness of breath, neck pain. Vitals on arrival significant for tachycardia and elevated blood pressure but otherwise unremarkable. The differential diagnosis associated with this patient's presentation includes sepsis, PE, thyroid dysfunction, electrolyte abnormality. Our workup consisted of ordering/reviewing CBC, BMP, UA, hCG, thyroid panel, lactic acid, CTA chest, EKG. 1L NS bolus and Vistaril given for symptomatic relief. At time of signout, pending workup. I discussed the case with Dr. Mane, he will assume further care for this patient for this visit. Please see his note for further details. Diagnoses as of 10/05/24 1840 Tachycardia Near syncope ED Medications managed: Medications hydrOXYzine pamoate (Vistaril) capsule 25 mg (has no administration in time range) sodium chloride 0.9 % bolus 1,000 mL (1,000 mL IntraVENous New Bag 10/05/24 1502) PROCEDURES: Unless otherwise noted below, none Procedures FINAL IMPRESSION No diagnosis found. DISPOSITION PATIENT REFERRED TO: No follow-up provider specified. DISCHARGE MEDICATIONS: New Prescriptions No medications on file (Comment: Please note this report has been produced using speech recognition software and may contain errors related to that system including errors in grammar, punctuation, and spelling, as well as words and phrases that may be inappropriate. If there are any questions or concerns please feel freeto contact the dictating provider for clarification.) Otilio Kaur DO (electronically signed) Emergency Medicine Provider Otilio Kaur DO Resident 10/05/24 1523 [1] Past Medical History: Diagnosis Date Asthma 09/2016 Breast cyst, left 06/03/2021 Chronic sinusitis 12/2016 ENT eval per [facility] GERD (gastroesophageal reflux disease) 07/2016 EGD per [facility] Hypothyroid 2008 IBS (irritable bowel syndrome) 02/2016 constipation - Colonoscopy per [facility] [2] Past Surgical History: Procedure Laterality Date COLONOSCOPY 02/2016 [facility] TONSILLECTOMY (HISTORICAL) 1999 UPPER GASTROINTESTINAL ENDOSCOPY 11/2016 [facility] [3] Family History Problem Relation Name Age of Onset Ovarian cancer Neg Hx Diabetes Mother 35.00 on insulin at > 50 Lung cancer Maternal Grandfather Diabetes Maternal Cousin Gayle Colon cancer Maternal Grandmother 80.00 No Known Problems Paternal Grandmother Thyroid cancer Maternal Cousin Gayle Pancreatic cancer Mother Breast cancer Neg Hx No Known Problems Paternal Grandfather Other ([id number]) Father Danya 54.00 MVA in 2011 No Known Problems Sister Prostate cancer Maternal Grandfather [4] Social History Socioeconomic History Marital status: Tobacco Use Smoking status: Never Smokeless tobacco: Former Quit date: 04/05/2016 Vaping Use Vaping status: Never Used Substance and Sexual Activity Alcohol use: Not Currently Drug use: No Comment: caffiene: none Sexual activity: Yes Social History Narrative to Emile Nielson) since 07/21. NS or drinker, no children. 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 Social Drivers of Health Financial Resource Strain: Low Risk (04/20/2021) Received from [facility] Overall Financial Resource Strain (CARDIA) Difficulty of Paying Living Expenses: Not hard at all Food Insecurity: No Food Insecurity (04/20/2021) Received from [facility] Hunger Vital Sign Worried About Running Out of Food in the Last Year: Never true Ran Out of Food in the Last Year: Never true Transportation Needs: No Transportation Needs (04/20/2021) Received from [facility] PRAPARE - Transportation Lack of Transportation (Medical): No Lack of Transportation (Non-Medical): No Physical Activity: Sufficiently Active (04/20/2021) Received from [facility] Exercise Vital Sign Days of Exercise per Week: 5 days Minutes of Exercise per Session: 30 min Stress: No Stress Concern Present (04/20/2021) Received from [facility] [place] [employer] - Occupational Stress Questionnaire Feeling of Stress : Not at all Social Connections: Moderately Integrated (04/20/2021) Received from [facility] Social Connection and Isolation Panel [NHANES] Frequency of Communication with Friends and Family: More than three times a week Frequency of Social Gatherings with Friends and Family: Twice a week Attends Mosque Services: More than 4 times per year Active Member of Clubs or Organizations: No Attends Club or Organization Meetings: Never Marital Status: Housing Stability: Low Risk (04/20/2021) Received from [facility] Housing Stability Vital Sign Unable to Pay for Housing in the Last Year: No Number of Places Lived in the Last Year: 1 Unstable Housing in the Last Year: No Cosigned by Liang Combs MD at 10/05/2024 10:48 PM EDT [employer] Phone: [phone] 766-848808-31-2025 Physician Emergency department Note* TADEO Mane MD - 10/05/2024 2:05 PM EDT Emergency Department Encounter Location: [facility] ED Patient: Dulce Maria Carty : 1995 Date of evaluation: 10/05/2024 ED Provider: Cherry Mane MD Time received sign-out: 4:18 PM Dulce Maria Carty was checked out to me by Dr. Kaur. Please see his/her initial documentation for details of the patient's initial ED presentation, physical exam and completed studies. In brief, Dulce Maria Carty is a 28 y.o. adult that presented to the emergency department for multiplecomplaints. Had roughly a week and a half for palpitations, shortness of breath, neck pain. Workup currently unremarkable, pending CT angio chest due to concerns for PE to rule out tachycardia. Disposition pending: CT angio Final ED Course and MDM: Dulce Maria Carty is a 28 y.o. whose care was signed out to me by the outgoing provider. In brief, patient presents for multiple complaints, workup so far unremarkable, CT angio without concerns for PE,pneumonia, or any other intrathoracic abnormality. Mild fluid collection roughly 2 centimeter in the collection. Ultimately an additional VBG and mag was added on to rule out anxiety related causes versus electrolyte. No remarkable finding on VBG or mag. Had a discussion at bedside with patient, where attending showed her all her results, tachycardia resolved on its own. Patient was discharged with appropriate follow-up and return precautions. Medications hydrOXYzine pamoate (Vistaril) capsule 25 mg (has no administration in time range) sodium chloride 0.9 % bolus 1,000 mL (1,000 mL IntraVENous New Bag 10/05/24 1502) I have reviewed and interpreted all of the currently available lab results and diagnostics from this visit: Results for orders placed or performed during the hospital encounter of 10/05/24 ECG 12 lead Collection Time: 10/05/24 2:14 PM Result Value Ref Range Heart Rate 131 bpm QRSD Interval 102 ms QT Interval 314 ms QTC Interval 464 ms P [place] 57 degrees QRS [place] 40 degrees T Wave [place] 16 degrees [place] Interval 136 ms CBC auto differential Collection Time: 10/05/24 2:58 PM Result Value Ref Range Auto WBC 5.4 3.6 - 10.7 10*3/uL RBC 5.03 3.80 - 5.20 10*6/uL Hemoglobin 14.2 11.7 - 16.0 g/dL Hematocrit 42.1 35.0 - 47.0 % MCV 83.7 77.0 - 99.0 fL MCH 28.2 26.0 - 34.0 pg MCHC 33.7 30.5 - 36.0 % RDW 12.0 11.5 - 15.0 % Platelets 204 140 - 440 10*3/uL MPV 10.4 9.0 - 12.7 fL nRBC 0.0 0.0 - 2.0 /100 WBCs Neutrophils Relative 57.7 38.0 - 82.0 % Lymphocytes Relative 35.1 15.0 - 45.0 % Monocytes Relative 5.7 5.0 - 13.0 % Eosinophils Relative 0.7 0.0 - 6.0 % Basophils Relative 0.6 0.0 - 2.0 % Immature Grans % 0.2 0.0 - 2.0 % Neutrophils Absolute 3.1 1.8 - 7.5 10*3/uL Lymphocytes Absolute 1.9 1.0 - 4.3 10*3/uL Monocytes Absolute 0.3 0.0 - 0.9 10*3/uL Eosinophils Absolute 0.0 0.0 - 0.5 10*3/uL Basophils Absolute 0.0 0.0 - 0.2 10*3/uL Immature Grans Absolute 0.0 <0.1 10*3/uL Basic metabolic panel Collection Time: 10/05/24 2:58 PM Result Value Ref Range SODIUM 141 136 - 145 mmol/L POTASSIUM 3.4 (L) 3.5 - 5.1 mmol/L CHLORIDE 106 98 - 107 mmol/L CARBON DIOXIDE 23 22 - 29 mmol/L UREA NITROGEN 10 8 - 21 mg/dL CREATININE 0.86 0.57 - 1.11 mg/dL GLUCOSE 124 (H) 74 - 100 mg/dL CALCIUM 9.1 8.4 - 10.2 mg/dL ANION GAP 12 3 - 13 mmol/L eGFR >90.0 >60.0 mL/min/1.73m*2 Lactic acid with reflex Collection Time: 10/05/24 2:58 PM Result Value Ref Range LACTIC ACID 1.3 0.5 - 2.2 mmol/L T4, free Collection Time: 10/05/24 3:02 PM Result Value Ref Range FREE T4 0.99 0.70 - 1.48 ng/dL TSH Collection Time: 10/05/24 3:02 PM Result Value Ref Range THYROID STIMULATING HORMONE 0.61 0.35 - 4.94 uIU/mL hCG, urine, qualitative Collection Time: 10/05/24 3:09 PM Result Value Ref Range HCG,URINE QUAL Negative Negative Complete Urinalysis with reflex to Culture Collection Time: 10/05/24 3:09 PM Result Value Ref Range Color, Urine Light Yellow Lt. Yellow Clarity, Urine Clear Clear pH, Urine 5.5 5.0 - 8.0 pH Leukocytes, Urine Negative Negative Prabhu/uL Nitrite, Urine Negative Negative Protein, Urine Negative Negative mg/dL Glucose, Urine Normal Normal (<70) mg/dL Bilirubin, Urine Negative Negative mg/dL Ketones, Urine Negative Negative mg/dL Urobilinogen, Urine Normal Normal (0-1) mg/dL Blood, Urine Negative Negative mg/dL SPECIFIC GRAVITY OF URINE (NUMERIC) 1.012 1.005 - 1.030 CTA chest angiogram w and/or wo IV contrast (Results Pending) Final Impression No diagnosis found. DISPOSITION (Please note that portions of this note may have been completed with a voice recognition program. Efforts were made to edit the dictations but occasionally words are mis-transcribed.) MD Cherry Alvarez MD Resident 10/05/24 1162 Cosigned by Liang Combs MD at 10/05/2024 11:13 PM EDT [employer] Phone: 1(286) 995-162308-20-2025 Instructions* Patient Instructions* Tariq Singleton APRN.CNP - 09/24/2024 9:48 AM EDT [facility] NoteHNO ID: [id number] Author: TARIQ SINGLETON APRN.CNP Service: ? Author Type: Nurse Practitioner Type: Progress Notes Filed: 09/24/2024 10:05 Note Text: CHIEF COMPLAINT: Patient presents with: Abdominal Pain: Colon back in March unhappy with previous GI This consult was requested by No ref. provider found for an opinion regarding abdominal pain. My final recommendations will be communicated to the requesting health care provider by way of the shared medical record for internal providers or letter via the [employer] for external providers. HPI: Dulce Maria Carty is a 28 year old female who presents for Abdominal Pain (Colon back in March unhappy with previous GI). She has had some GI issues most of her life, but she started having more significant LLQ pain when she was with her second son, and it progressively worsened. She also had rectal bleeding. Her OFFICE SUPPORT ASSISTANT referred her to GI. She saw GI and had colonoscopy (at [facility]) 03/2024 that was reportedly normal other than hemorrhoids. She gets a lot of postprandial gas and bloat that feels like pressure and trapped in the upper abdomen. She feels like she needs to burp. The lower abdominal pain is a burning and constant with periods of increased intensity. She will get mild nausea at times. Appetite is good. Denies actual GERD, dysphagia. No specific food triggers that she has been able to identify. She has a BM every morning and denies any constipation or diarrhea. When , she had incomplete evacuation and she will occasionally feel that now. She is still breast feeding, so she really hasn't taken any meds. She does use stef chews that help with the belching. Niece has celiac disease. Record Review: [facility] / Outside records reviewed. History reviewed. No pertinent past medical history. PAST SURGICAL HISTORY Procedure Laterality Date BREAST LUMPECTOMY HX 08/2024 COLONOSCOPY 03/2024 TONSILLECTOMY AND ADENOIDECTOMY Allergies: ALLERGIES Allergen Reactions Alprazolam Unknown Quetiapine Fumarate Unknown Medications: no115/iron/folic acid ( 19 ORAL) Take 1 tablet by mouth once daily. FAMILY HISTORY Problem Relation Age of Onset Colon Cancer Maternal Grandmother Employer And Job Title: None on file Years Of Education Completed: Not specified Marital Status: SOCIAL HISTORY[1] Review of Systems: Review of Systems Constitutional: Positive for fatigue. Cardiovascular: Positive for palpitations. Gastrointestinal: Positive for abdominal distention, abdominal pain and anal bleeding. Gas, Heartburn All other systems reviewed and are negative. Are you taking any blood thinners? No Physical Examination: BP 114/62 Pulse 91 Ht 5' 7" (1.70m) Wt 167 lb (75.8kg) SpO2 98% BMI 26.15 kg/(m2). Physical Exam Vitals and nursing note reviewed. Constitutional: Appearance: Normal appearance. She is normal weight. HENT: Head: Normocephalic and atraumatic. Eyes: General: No scleral icterus. Cardiovascular: Rate and Rhythm: Normal rate and regular rhythm. Pulmonary: Breath sounds: Normal breath sounds. Abdominal: General: Abdomen is flat. Bowel sounds are decreased. Palpations: Abdomen is soft. Tenderness: There is generalized abdominal tenderness (mild). There is no guarding or rebound. Musculoskeletal: General: No swelling. Skin: General: Skin is warm and dry. Neurological: Mental Status: She is alert and oriented to person, place, and time. Psychiatric: Mood and Affect: Mood normal. Behavior: Behavior normal. Thought Content: Thought content normal. Judgment: Judgment normal. ASSESSMENT: (R10.32) LLQ pain (primary encounter diagnosis) (R14.0) Bloating (R14.2) Belching 1. LLQ pain (Primary) - Suspect IBS/fecal retention. Will check AXR to assess for underlying fecal retention. Request colonoscopy and biopsy reports. Also strongly consider SIBO breath testing - You can try Ibgard or Iberogast for abdominal pain and bloat. Fdgard can be used for nausea, bloat/feeling of fullness after eating. - avoid artificial sweeteners/zero sugar products - XR ABDOMEN 2V ROUTINE SUPINE W UPRIGHT/DECUB/CTL; Future 2. Bloating - rule out celiac. Rule out SIBO if negative. - CELIAC SCREEN WITH REFLEX; Future - XR ABDOMEN 2V ROUTINE SUPINE W UPRIGHT/DECUB/CTL; Future 3. Belching - You can try Ibgard or Iberogast for abdominal pain and bloat. Fdgard can be used for nausea, bloat/feeling of fullness after eating. - avoid artificial sweeteners/zero sugar products Follow up in office 3 months Tariq Singleton APRN.BUILD AND DEPLOYMENT ENGINEER September 24, 2024 10:01 AM [1] Social History Tobacco Use Smoking status: Never Smokeless tobacco: Never Vaping Use Vaping status: Never Used Substance Use Topics [facility] History of Present illness Narrative* Tariq Singleton APRN.BUILD AND DEPLOYMENT ENGINEER - 09/24/2024 9:24 AM EDT CHIEF COMPLAINT: Patient presents with: Abdominal Pain: Colon back in March unhappy with previous GI This consult was requested by No ref. provider found for an opinion regarding abdominal pain. My final recommendations will be communicated to the requesting health care provider by way of the sharedmedical record for internal providers or letter via the [employer] for external providers. HPI: Dulce Maria Carty is a 28 year old female who presents for Abdominal Pain (Colon back in March unhappy with previous GI). She has had some GI issues most of her life, but she started having more significant LLQ pain when she was with her second son, and it progressively worsened. She also had rectal bleeding. Her OFFICE SUPPORT ASSISTANT referred her to GI. She saw GI and had colonoscopy (at [facility]) 03/2024 that was reportedly normal other than hemorrhoids. She gets a lot of postprandial gas and bloat that feels like pressure and trapped in the upper abdomen. She feels like she needs to burp. The lower abdominal pain is a burning and constant with periods of increased intensity. She will get mild nausea at times. Appetite is good. Denies actual GERD, d ysphagia. No specific food triggers that she has been able to identify. She has a BM every morning and denies any constipation or diarrhea. When , she had incomplete evacuation and she will occasionally feel that now. She is still breast feeding, so she really hasn't taken any meds. She does use stef chews that help with the belching. Niece has celiac disease. Record Review: [facility] / Outside records reviewed. History reviewed. No pertinent past medical history. PAST SURGICAL HISTORY Procedure Laterality Date BREAST LUMPECTOMY HX 08/2024 COLONOSCOPY 03/2024 TONSILLECTOMY & ADENOIDECTOMY <AGE 11 Allergies: ALLERGIES Allergen Reactions Alprazolam Unknown Quetiapine Fumarate Unknown Medications: no115/iron/folic acid ( 19 ORAL) Take 1 tablet by mouth once daily. FAMILY HISTORY Problem Relation Age of Onset Colon Cancer Maternal Grandmother Employer And Job Title: None on file Years Of Education Completed: Not specified Marital Status: SOCIAL HISTORY[1] Review of Systems: Review of Systems Constitutional: Positive for fatigue. Cardiovascular: Positive for palpitations. Gastrointestinal: Positive for abdominal distention, abdominal pain and anal bleeding. Gas, Heartburn All other systems reviewed and are negative. Are you taking any blood thinners? No Physical Examination: BP 114/62 Pulse 91 Ht 5' 7" (1.70m) Wt 167 lb (75.8kg) SpO2 98% BMI 26.15 kg/(m^2). Physical Exam Vitals and nursing note reviewed. Constitutional: Appearance: Normal appearance. She is normal weight. HENT: Head: Normocephalic and atraumatic. Eyes: General: No scleral icterus. Cardiovascular: Rate and Rhythm: Normal rate and regular rhythm. Pulmonary: Breath sounds: Normal breath sounds. Abdominal: General: Abdomen is flat. Bowel sounds are decreased. Palpations: Abdomen is soft. Tenderness: There is generalized abdominal tenderness (mild). There is no guarding or rebound. Musculoskeletal: General: No swelling. Skin: General: Skin is warm and dry. Neurological: Mental Status: She is alert and oriented to person, place, and time. Psychiatric: Mood and Affect: Mood normal. Behavior: Behavior normal. Thought Content: Thought content normal. Judgment: Judgment normal. ASSESSMENT: (R10.32) LLQ pain (primary encounter diagnosis) (R14.0) Bloating (R14.2) Belching 1. LLQ pain (Primary) - Suspect IBS/fecal retention. Will check AXR to assess for underlying fecal retention. Request colonoscopy and biopsy reports. Also strongly consider SIBO breath testing - You can try Ibgard or Iberogast for abdominal pain and bloat. Fdgard can be used for nausea, bloat/feeling of fullness after eating. - avoid artificial sweeteners/zero sugar products - XR ABDOMEN 2V ROUTINE SUPINE W UPRIGHT/DECUB/CTL; Future 2. Bloating - rule out celiac. Rule out SIBO if negative. - CELIAC SCREEN WITH REFLEX; Future - XR ABDOMEN 2V ROUTINE SUPINE W UPRIGHT/DECUB/CTL; Future 3. Belching - You can try Ibgard or Iberogast for abdominal pain and bloat. Fdgard can be used for nausea, bloat/feeling of fullness after eating. - avoid artificial sweeteners/zero sugar products Follow up in office 3 months Tariq Singleton APRN.CNP September 24, 2024 10:01 AM [1] Social History Tobacco Use Smoking status: Never Smokeless tobacco: Never Vaping Use Vaping status: Never Used Substance Use Topics Drug use: Never [facility] Progress [facility] [address] [place] [address]. [address] [place] [id number] OFFICE VISIT Date of Service: 09/17/24 MR#: [id number] Acct: [id number] Name: MACHELLEMAY ELIZ Rep #: [id number] : 1995 Provider: Dr. Yovanny Del Toro MD Age/Sex: 28/F Location: [facility] Status: Signed Intake Vital Signs 08/19/24 10:41 09/17/24 08:30 Height 5 ft 6 in BP 122/77 H Blood Pressure Location Lt brachial Position Sitting Respiration 17 Pulse 90 Pulse Source Monitor Temp 97.3 F L Temp Source Temporal Intake Visit Reasons: BREAST I&D Chief Complaint: breast I&D/ aspiration Is patient in pain?: Yes (soreness/pain with ) Allergies nitrofurantoin Allergy (Severe, Verified 09/17/24 08:31) difficulty breathing alprazolam Adverse Reaction (Intermediate, Verified 09/17/24 08:31) PT UNSURE OF REACTION quetiapine Adverse Reaction (Intermediate, Verified 09/17/24 08:31) PT UNSURE OF REACTION Medications ?Medication ?Instructions ?Recorded ?Confirmed ?Type L. crispatus, gasseri, jensenii, 2 tab PO DAILY 09/17/24 History rhamnosus 12 billion cell chew tablet (Culturelle Probiotic) docosahexaenoic acid 200 mg 200 mg PO DAILY 06/26/23 0 09/17/24 History capsule ( DHA) sunflower lithisine PO 09/17/24 History Subjective Details: The patient is a 28-year-old female who is being seen today for swelling to the site of a recent left breast lumpectomy. She called the office recently and we had her obtain an ultrasound. This showed a large fluid collection. We recommended that she be seen in the office for possible aspiration Rachell&D. She denies any fevers or chills. She does admit to swelling slight warmth to the area Objective Details: She is alert and oriented x 3. She is in no acute distress. Examination of the left breast reveals minimal tenderness and very minimal erythema. Ultrasound again confirms a large pool of fluid deep to the incision. I recommended aspiration. Aspiration was performed under sterile technique in the office today. Local anesthetic was injected. After this a total of 180 cc of essentially breastmilk was aspirated. Patient is currently breast-feeding. This decompressed the area nicely. Coding Level of Care Code Global Post Op Diagnoses Mass of upper outer quadrant of left breast N63.21 Breast mass location: upper outer quadrant [facility] Medical History Adenoma of breast Thyroid disease Migraine headache History of Holter monitoring History of echocardiogram Cardiology follow-up encounter Vasovagal near syncope IBS (irritable bowel syndrome) GERD (gastroesophageal reflux disease) Diseases of the circulatory system complicating , unspecified trimester Supraventricular tachycardia, unspecified Supraventricular tachycardia during Heart palpitations History of kidney disease Hypothyroidism affecting Normal endoscopic ultrasound of upper gastrointestinal tract Seasonal allergies Supervision of high-risk Infertility associated with anovulation Surgical History (Updated 08/27/24 @ 13:45 by Galina Andino) S/P lumpectomy, left breast Hx of tonsillectomy [place] teeth extracted History of tonsillectomy Family History Grandmother Colon cancer Diabetes Mother Diabetes Pancreatic cancer Social History adopted: No household members: spouse and children number of children: 2 current occupational status: unemployed current occupation: [employer] current occupational exposures/hazards: No pets and animals: Yes (NOT MANAGING LITTERBOX) pets and animals: cat(s), dog(s), horse(s) and farm animals history of recent travel: No sexually active: Yes Smoking Status: Never smoker alcohol intake: never substance use type: does not use diet: other well-balanced diet: daily or most days caffeine: No eating out: 1-3 times/week during the past year weight has: remained stable what type of physical activity do you participate in: weight training frequency: 5-6 times per week duration: 15-30 minutes/day gale/restoration: Anglican seatbelt use: always do you feel safe at home: Yes additional social history: - [place] Assessment and Plan (No Qualifiers) Assessment and Plan (1) Left breast lump: Status: Acute Plan: The patient is a 28-year-old female status post a recent left ectomy of the leftbreast. She developed a fluid collection consisting of breastmilk at the surgical site. Patient is currently breast-feeding. I aspirated about 180 cc of essentially breastmilk. This decompressed the area nicely. I advised her towear a snug fitting sports bra for compression is much as possible. I did statethat this may have a tendency to recur. If it does she should contact my officeto be reevaluated. She is agreeable this plan. 09/17/24 0857 k > Date _ Lawrence Del Toro MD Cosigner Signature: Date (if applicable) CC: ~ [facility]08-13-2025 Progress note Author Lawrence Del Toro [facility] Note Date/Time September 17, 2024 8: 57am [facility] [address] [place] [address] OFFICE VISIT Date of Service: 09/17/24 MR#: [id number] Acct: [id number] Name: MACHELLEMAY ELIZ Rep #: [id number] : 1995 Provider: Dr. Yovanny Del Toro MD Age/Sex: 28/F Location: [facility] Status: Signed Intake Vital Signs 08/19/24 10:41 09/17/24 08:30 Height 5 ft 6 in BP 122/77 H Blood Pressure Location Lt brachial Position Sitting Respiration 17 Pulse 90 Pulse Source Monitor Temp 97.3 F L Temp Source Temporal Intake Visit Reasons: BREAST I&D Chief Complaint: breast I&D/ aspiration Is patient in pain?: Yes (soreness/pain with ) Allergies nitrofurantoin Allergy (Severe, Verified 09/17/24 08:31) difficulty breathing alprazolam Adverse Reaction (Intermediate, Verified 09/17/24 08:31) PT UNSURE OF REACTION quetiapine Adverse Reaction (Intermediate, Verified 09/17/24 08:31) PT UNSURE OF REACTION Medications ?Medication ?Instructions ?Recorded ?Confirmed ?Type L. crispatus, gasseri, jensenii, 2 tab PO DAILY 09/17/24 History rhamnosus 12 billion cell chew tablet (Culturelle Probiotic) docosahexaenoic acid 200 mg 200 mg PO DAILY 06/26/23 0 09/17/24 History capsule ( DHA) sunflower lithisine PO 09/17/24 History Subjective Details: The patient is a 28-year-old female who is being seen today for swelling to the site of a recent left breast lumpectomy. She called the office recently and we had her obtain an ultrasound. This showed a large fluid collection. We recommended that she be seen in the office for possible aspiration or I&D. She denies any fevers or chills. She does admit to swelling slight warmth to the area Objective Details: She is alert and oriented x 3. She is in no acute distress. Examination of the left breast reveals minimal tenderness and very minimal erythema. Ultrasound again confirms a large pool of fluid deep to the incision. I recommended aspiration. Aspiration was performed under sterile technique in the office today. Local anesthetic was injected. After this a total of 180 cc of essentially breastmilk was aspirated. Patient is currently breast-feeding. This decompressed the area nicely. Coding Level of Care Code Global Post Op Diagnoses Mass of upper outer quadrant of left breast N63.21 Breast mass location: upper outer quadrant [facility] Medical History Adenoma of breast Thyroid disease Migraine headache History of Holter monitoring History of echocardiogram Cardiology follow-up encounter Vasovagal near syncope IBS (irritable bowel syndrome) GERD (gastroesophageal reflux disease) Diseases of the circulatory system complicating , unspecified trimester Supraventricular tachycardia, unspecified Supraventricular tachycardia during Heart palpitations History of kidney disease Hypothyroidism affecting Normal endoscopic ultrasound of upper gastrointestinal tract Seasonal allergies Supervision of high-risk Infertility associated with anovulation Surgical History (Updated 08/27/24 @ 13:45 by Galina Andino) S/P lumpectomy, left breast Hx of tonsillectomy [place] teeth extracted History of tonsillectomy Family History Grandmother Colon cancer Diabetes Mother Diabetes Pancreatic cancer Social History adopted: No household members: spouse and children number of children: 2 current occupational status: unemployed current occupation: [employer] current occupational exposures/hazards: No pets and animals: Yes (NOT MANAGING LITTERBOX) pets and animals: cat(s), dog(s), horse(s) and farm animals history of recent travel: No sexually active: Yes Smoking Status: Never smoker alcohol intake: never substance use type: does not use diet: other well-balanced diet: daily or most days caffeine: No eating out: 1-3 times/week during the past year weight has: remained stable what type of physical activity do you participate in: weight training frequency: 5-6 times per week duration: 15-30 minutes/day gale/restoration: Anglican seatbelt use: always do you feel safe at home: Yes additional social history: - [place] Assessment and Plan (No Qualifiers) Assessment and Plan (1) Left breast lump: Status: Acute Plan: The patient is a 28-year-old female status post a recent left ectomy of the leftbreast. She developed a fluid collection consisting of breastmilk at the surgical site. Patient is currently breast-feeding. I aspirated about 180 cc of essentially breastmilk. This decompressed the area nicely. I advised her towear a snug fitting sports bra for compression is much as possible. I did statethat this may have a tendency to recur. If it does she should contact my officeto be reevaluated. She is agreeable this plan. 09/17/24 0857 <Electronically signed by Lawrence chahal MD> Date _ Lawrence Del Toro MD Cosign Signature: Date (if applicable) CC: ~ [facility] Work Phone: [phone]) 765-563808-12-2025 Radiology Diagnostic study note [facility] Imaging Services [address] [place], [place] [id number] Breast Limited Unilateral MR#: [id number] Acct: [id number] Name: MACHELLEMAY ELIZ Rep #: [id number] : 1995 F 28 From: Marcia Blanco MD PCP: Dr. Zachariah Rome, Status: REG CLI Study:Breast Limited Unilateral Date of Exam: 09/16/24 Exam# [id number] Ordering Dr: St beatriz Del Toro MD PROCEDURE: BREAST LIMITED UNILATERAL 09/16/2024 REASON FOR EXAM: 28-year-old female presents with left breast pain. The patient is recently status post left lumpectomy for a left breast mass. The patient is currently . COMPARISON: Ultrasound 12/13/2023. TECHNIQUE: BREAST LIMITED UNILATERAL FINDINGS: Ultrasound performed of the area of patient's skin discoloration demonstrates a large fluid collection entirely filling the left upper-outer quadrant from 12 o'clock to 4 o'clock measuring 10.4 x 10.3 x 3.4 cm. There are some internal septations. Also, there is some dilated ducts in the retroareolar region. There is a normal- appearing intramammary lymph node in the left breast at 3 o'clock 13 cm from the nipple. US/Breast Limited Unilateral IMPRESSION: Large fluid collection in the upper-outer left breast measuring 10.4 x 10.3 x 3.4 cm, correlates tothe patient's area of reported pain/skin discoloration. Consider aspiration or I and D for symptomatic relief. BI-RADS 2: BENIGN RECOMMENDATION: OTHER. Clinical management is recommended. Reading Location: [id number] CC: Dr. Zachariah Rome DO; Dr. Lawrence Del Toro MD ~ Pocket Secretary Assembler: Signed [facility]08-08-2025 History of Present illness Narrative* BinDonita aguillon, RT(R) - 09/12/2024 8:30 AM EDT Radiology Service Progress Note DATE OF SERVICE: September 12, 2024 TIME: 9:08 AM PATIENT IDENTITY VERIFICATION COMPLETED USING TWO (2) STANDARD IDENTIFIERS: Name and Date of confirmed by patient verbally. FALL SCREENING: Has the patient had 2 falls in the last year or 1 fall with injury or currently using an Ambulatory Assistive Device (Walker, Cane, Wheelchair, Crutches, etc.)? No PATIENT GENDER DATA: Assigned female at . status: status: YES pt informed. PATIENT RELEVANT IMPLANT DATA REVIEWED: Not Applicable PATIENT PRESENTS WITH AN IMPLANTABLE OR ATTACHED CARPET OR RUG LAYER HELPER: No ALLERGIES: Reviewed and unchanged CONTRAST ALLERGY: NO. EXAM: MRI - CONTRAST TYPE: GROUP II PERIPHERAL IV DATA: Ambulatory: A peripheral IV was started in the Right antecubital site with a Butterfly: 23 gauge. RADIOLOGY DEPARTMENT: MR; Exam(s) Completed: Head: Pituitary. Aromatherapy Administered: No SIGNATURE: YUSUF Benitez) PATIENT NAME: May Machelle DATE: September 12, 2024 TIME: 9:08 AM * Donita Reagan RT(R) - 09/12/2024 8:30 AM EDT Radiology Service Progress Note DATE OF SERVICE: September 12, 2024 TIME: 9:28 AM PATIENT IDENTITY VERIFICATION COMPLETED USING TWO (2) STANDARD IDENTIFIERS: Name and Date of confirmed by patient verbally. FALL SCREENING: Has the patient had 2 falls in the last year or 1 fall with injury or currently using an Ambulatory Assistive Device (Walker, Cane, Wheelchair, Crutches, etc.)? No PATIENT GENDER DATA: Assigned female at . status: : No status:NO. PATIENT RELEVANT IMPLANT DATA REVIEWED: Not Applicable PATIENT PRESENTS WITH AN IMPLANTABLE OR ATTACHED CARPET OR RUG LAYER HELPER: No ALLERGIES: Reviewed and unchanged CONTRAST ALLERGY: NO. EXAM: MRI - CONTRAST TYPE: GROUP II PERIPHERAL IV DATA: Ambulatory: A peripheral IV was started in the Right with a Butterfly: 23 gauge. RADIOLOGY DEPARTMENT: MR; Exam(s) Completed: Head: Pituitary. Aromatherapy Administered: No SIGNATURE: YUSUF Benitez) PATIENT NAME: Maynaomi DATE: September 12, 2024 TIME: 9:28 AM documented in [facility]-2025 NoteHNO ID: [id number] Author: DONITA REAGAN RT(R) Service: ? Author Type: Technologist Type: Progress Notes Filed: 09/12/2024 09:26 Note Text: Radiology Service Progress Note DATE OF SERVICE: September 12, 2024 TIME: 9:08 AM PATIENT IDENTITY VERIFICATION COMPLETED USING TWO (2) STANDARD IDENTIFIERS: Name and Date of confirmed by patient verbally. FALL SCREENING: Has the patient had 2 falls in the last year or 1 fall with injury or currently using an Ambulatory Assistive Device (Walker, Cane, Wheelchair, Crutches, etc.)? No PATIENT GENDER DATA: Assigned female at . status: status: YES pt informed. PATIENT RELEVANT IMPLANT DATA REVIEWED: Not Applicable PATIENT PRESENTS WITH AN IMPLANTABLE OR ATTACHED CARPET OR RUG LAYER HELPER: No ALLERGIES: Reviewed and unchanged CONTRAST ALLERGY: NO. EXAM: MRI - CONTRAST TYPE: GROUP II PERIPHERAL IV DATA: Ambulatory: A peripheral IV was started in the Right antecubital site with a Butterfly: 23 gauge. RADIOLOGY DEPARTMENT: MR; Exam(s) Completed: Head: Pituitary. Aromatherapy Administered: No SIGNATURE: RT Eli(Al) PATIENT NAME: May [facility] DATE: September 12, 2024 TIME: 9:08 [facility]08-08-2025 NoteHNO ID: [id number] Author: DOINTA REAGAN RT(Al) Service: ? Author Type: Technologist Type: Progress Notes Filed: 09/12/2024 09:30 Note Text: Radiology Service Progress Note DATE OF SERVICE: September 12, 2024 TIME: 9:28 AM PATIENT IDENTITY VERIFICATION COMPLETED USING TWO (2) STANDARD IDENTIFIERS: Name and Date of confirmed by patient verbally. FALL SCREENING: Has the patient had 2 falls in the last year or 1 fall with injury or currently using an Ambulatory Assistive Device (Walker, Cane, Wheelchair, Crutches, etc.)? No PATIENT GENDER DATA: Assigned female at . status: : No status: NO. PATIENT RELEVANT IMPLANT DATA REVIEWED: Not Applicable PATIENT PRESENTS WITH AN IMPLANTABLE OR ATTACHED CARPET OR RUG LAYER HELPER: No ALLERGIES: Reviewed and unchanged CONTRAST ALLERGY: NO. EXAM: MRI - CONTRAST TYPE: GROUP II PERIPHERAL IV DATA: Ambulatory: A peripheral IV was started in the Right with a Butterfly: 23 gauge. RADIOLOGY DEPARTMENT: MR; Exam(s) Completed: Head: Pituitary. Aromatherapy Administered: No SIGNATURE: RT Eli(Al) PATIENT NAME: May [facility] DATE: September 12, 2024 TIME: 9:28 [facility]07-22-2025 History of Present illness Narrative * Ting Rivas RT(Al) - 08/26/2024 3:20 PM EDT Radiology Service Progress Note RADIOLOGY SERVICE PROGRESS NOTE DATE OF SERVICE: August 26, 2024 TIME OF SERVICE: 1530 EVENT: EXAM/PROCEDURE NOT COMPLETED - Patient requires additional/alternate prep. ADDITIONAL EVENT DETAILS: pt states she is very warm once start scanning, pulled out multiple times. Pt denies any metal other than dental work. Pt decided she felt too warm to continue MRI. Will reach out to ordering doctor and let them know MRI was unsuccessful. SIGNATURE: RT Giorgio(R) PATIENT NAME: [place] DATE: August 26, 2024 TIME: 3:39 PM PAGER/CONTACT #: DATE OF SERVICE: August 26, 2024 TIME: 3:17 PM PATIENT IDENTITY VERIFICATION COMPLETED USING TWO (2) STANDARD IDENTIFIERS: Name and Date of confirmed by patient verbally and Name and Date of confirmed by identification band. FALL SCREENING: Has the patient had 2 falls in the last year or 1 fall with injury or currently using an Ambulatory Assistive Device (Walker, Cane, Wheelchair, Crutches, etc.)? No PATIENT GENDER DATA: Assigned female at . status: : No status:NO. PATIENT RELEVANT IMPLANT DATA REVIEWED: Yes PATIENT PRESENTS WITH AN IMPLANTABLE OR ATTACHED CARPET OR RUG LAYER HELPER: No ALLERGIES: Reviewed and unchanged CONTRAST ALLERGY: NO. EXAM: MRI - CONTRAST TYPE: GROUP II PERIPHERAL IV DATA: RAD RN IV RADIOLOGY DEPARTMENT: MR; Exam(s) Completed: Head: Pituitary. Aromatherapy Administered: No SIGNATURE: RT Giorgio(Al) PATIENT NAME: [place] DATE: August 26, 2024 TIME: 3:17 PM documented in this encounterSalem [facility] Center07-22-2025 NoteHNO ID: [id number] Author: TING RIVAS RT(R) Service: Radiology Author Type: Technologist Type: Progress Notes Filed: 08/26/2024 15:41 Note Text: Radiology Service Progress Note RADIOLOGY SERVICE PROGRESS NOTE DATE OF SERVICE: August 26, 2024 TIME OF SERVICE: 1530 EVENT: EXAM/PROCEDURE NOT COMPLETED - Patient requires additional/alternate prep. ADDITIONAL EVENT DETAILS: pt states she is very warm once start scanning, pulled out multiple times. Pt denies any metal other than dental work. Pt decided she felt too warm to continue MRI. Will reach out to ordering doctor and let them know MRI was unsuccessful. SIGNATURE: RT Giorgio(R) PATIENT NAME: May DATE: August 26, 2024 TIME: 3:39 PM PAGER/CONTACT #: DATE OF SERVICE: August 26, 2024 TIME: 3:17 PM PATIENT IDENTITY VERIFICATION COMPLETED USING TWO (2) STANDARD IDENTIFIERS: Name and Date of confirmed by patient verbally and Name and Date of confirmed by identification band. FALL SCREENING: Has the patient had 2 falls in the last year or 1 fall with injury or currently using an Ambulatory Assistive Device (Walker, Cane, Wheelchair, Crutches, etc.)? No PATIENT GENDER DATA: Assigned female at . status: : No status: NO. PATIENT RELEVANT IMPLANT DATA REVIEWED: Yes PATIENT PRESENTS WITH AN IMPLANTABLE OR ATTACHED CARPET OR RUG LAYER HELPER: No ALLERGIES: Reviewed and unchanged CONTRAST ALLERGY: NO. EXAM: MRI - CONTRAST TYPE: GROUP II PERIPHERAL IV DATA: RAD RN IV RADIOLOGY DEPARTMENT: MR; Exam(s) Completed: Head: Pituitary. Aromatherapy Administered: No SIGNATURE: RT Giorgio(R) PATIENT NAME: May DATE: August 26, 2024 TIME: 3:17 [place] [id number] Nurse Note* Jhon Kaiser RN - 08/26/2024 3:20 PM EDT Radiology Service Progress Note DATE OF SERVICE: August 26, 2024 TIME: 3:21 PM PATIENT WEIGHT: 181LBS PATIENT IDENTITY VERIFICATION COMPLETED USING TWO (2) STANDARD IDENTIFIERS: Name and Date of confirmed by patient verbally. FALL SCREENING: Has the patient had 2 falls in the last year or 1 fall with injury or currently using an Ambulatory Assistive Device (Walker, Cane, Wheelchair, Crutches, etc.)? No PATIENT GENDER DATA: Assigned female at . status: status: Yes status: YES education provided. ALLERGIES: Reviewed and unchanged CONTRAST ALLERGY: No EXAM: MRI - CONTRAST TYPE: GROUP II IV SITE: Ambulatory: A peripheral IV was started in the Right antecubital site with a Angio cath: 22 gauge. IV SITE APPEARANCE: Clean,Dry and Intact SIGNATURE: Jhon Kaiser RN PATIENT NAME: May Machelle DATE: August 26, 2024 TIME: 3:21 PM [facility]07-22-2025 Nurse Note* Jhon Kaiser RN - 08/26/2024 3:20 PM EDT Radiology Service Progress Note DATE OF SERVICE: August 26, 2024 TIME: 3:21 PM PATIENT WEIGHT: 181LBS PATIENT IDENTITY VERIFICATION COMPLETED USING TWO (2) STANDARD IDENTIFIERS: Name and Date of confirmed by patient verbally. FALL SCREENING: Has the patient had 2 falls in the last year or 1 fall with injury or currently using an Ambulatory Assistive Device (Walker, Cane, Wheelchair, Crutches, etc.)? No PATIENT GENDER DATA: Assigned female at . status: status: Yes status: YES education provided. ALLERGIES: Reviewed and unchanged CONTRAST ALLERGY: No EXAM: MRI - CONTRAST TYPE: GROUP II IV SITE: Ambulatory: A peripheral IV was started in the Right antecubital site with a Angio cath: 22 gauge. IV SITE APPEARANCE: Clean,Dry and Intact SIGNATURE: Jhon Kaiser RN PATIENT NAME: May Machelle DATE: August 26, 2024 TIME: 3:21 PM documented in this encounterSalem [facility]07-[facility]-2025 Consult note [facility] Medical Records Department [address] [facility] [place] [address] Anesthesia Postop Eval I 08/19/24 1311 MR#: [id number] Acct: [id number] Name: DULCE MARIA CARTY ELIZ Rep #:[id number] : 1995 28 From: Susana BLANCHARD PCP: Dr. Zachariah Rome DO Sta tus:REG [facility] Y Race: C Location: [place] [address] Anesthesia: Postop Eval I Current Vital Signs Temperature: 97.3 F Pulse Rate: 70 Blood Pressure: 107/57 Respiratory Rate: 16 Pulse Ox: 99 Oxygen Delivery Method: Room Air Assessment Airway patent: Yes Spontaneous unlabored respirations: Yes Mental status: Awake and Calm nausea: No Vomiting: No Anesthesia Complication: No Fluid Hydration Crystalloid volume administer (ml): 700 Total IV fluid infused: 700 Progress Note Anesthesia document: Postop Eval 1 completed: Yes 08/19/24 1311 FINANCE EFFECTIVENESS MANAGER> Date _ Susana Hermilo FINANCE EFFECTIVENESS MANAGER Cosigner Signature: Date CC: ~ Signed [facility]07-15-2025 Procedure note [facility] Medical Records Department [address] [place] [id number] Operative Report 08/19/24 1252 MR#: [id number] Acct: [id number] Name: DULCE MARIA CARTY ELIZ Rep #:[id number] : 1995 28 From: Lawrence Del Toro MD PCP: Dr. Zachariah Rome, [facility] Location: [place] [address] Problems Associated Problem List Diagnoses (1) Left breast lump: Procedures Integumentary [id number]-[id number]: [id number] Partial mastectomy Operative Report (Standard) Operative Information Date of Procedure: 08/19/24 Pre-Operative Diagnosis: Left breast lump Post-Operative Diagnosis: Same Surgery/Procedure Performed: Left breast lumpectomy with ultrasound street light cleaner: Yes Third Helper: Radha Hilliard Tasks completed by accountant assistant: Closing and Retracting Additional orthopaedic physician assistant?: No Type of Anesthesia: Local and MAC RN Documented Start/Stop Times: Operation Date: 08/19/24 11:45 Case Time Into Pre-Op 08/19/24 10:14 Out of Pre-Op 08/19/24 11:50 Anesthesia Start 08/19/24 11:53 Into Room 08/19/24 11:53 Procedure Start 08/19/24 12:17 Procedure Start Time: 12:17 Procedure Stop Time: 12:50 Select all DRAINS/GRAFTS/IMPLANTS that apply: None Special Medications: None Estimated Blood Loss: Minimal Specimen collected: Yes Description of specimen(s) removed: Left breast tissue with marking clip Description of surgery: The patient is a 28-year-old female recently seen to the office earlier this year with a left breast lump. Mammograms seem to indicate possible fibroadenoma. A core biopsy was performed under ultrasound guidance in the office. 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 She initially wanted to observehowever more recently she contacted our office wanting to have this excised. We discussed the details of the planned procedure and she wished to proceed. She was brought to the operating room today following informed consent. She was placed supine on the operative table with arms outstretched and arm boards. MAC anesthesia was induced. Once adequately sedated the area was prepped and draped in the usual sterile manner. Preoperatively, the lump was identified by the patient as well as myself. Wemarked this with a marking pen and that ultrasound was performed intraoperatively to confirm the lesion. Once adequately sedated local anesthetic was injected into the area. A #15 blade was then usedto make the skin incision. Bovie electrocautery was then used dissect down through subcutaneous tissue. The region of tissue was removed. It was sent to radiology to be radiographed to confirm placement of the clip. The clip was clearly present. Hemostasis was excellent. The wound was then closed using 3-0 Vicryl and 4-0 Vicryl. Skin glue and an Kyle wrap wereapplied as dressing. She was awakened from anesthesia and taken recovery in good condition. Surgical Findings: See operative note Complications Complications: No Admit VTE Documentation VTE Present on Admission: Yes VTE Mechan Device Prophylaxis: SCD's VTE Pharm Prophylaxis ordered?: No Reason prophylaxis not ordered: Treatment Not Indicated 08/19/24 1301 Cosigner Signature (if applicable): CC: Dr. Zachariah Rome DO; Dr. Lawrence Del Toro MD~ Signed [facility]07-15-2025 Discharge summary [facility] Medical Records Department [address] [place] [address] Instructions for Home/Discharge Instructions 08/19/24 1244 MR#: [id number] Acct: [id number] Name: DULCE MARIA CARTY ELIZ Rep #:[id number] : 1995 28 From: Lawrence Del Toro MD PCP: Dr. Zachariah Rome DO Sta tus:REG [facility]C Discharge Instructions Diet Discharge Diet: Light diet - advance as tolerated Activity Discharge Activity: Return to Normal Activity and May Shower May shower in (days): 1 Ice area for (Minutes): 30 Dressing / Incision Call your doctor if your incision/area has: Continuous Slow Oozing, Sudden Increased Bleeding, Increased Pain/ Swelling, Increased Redness, Foul Smelling Discharge and Swelling at the incision site Call your doctor if you observe: Fever of 101 or Higher Cleanse incision/area with: Soap & Water Follow Up Care Please Follow Up With: Lawrence Del Toro MD When: 1 to 2 weeks. Please call office to schedule appointment Test Results: Test results from this visit will be discussed in further detail at your follow- up appointment, if applicable. Discharge Plan Admission Primary Reason for Your Visit: Left breast lumpectomy Attending Provider: Lawrence Del Toro Primary Care Provider: Zachariah Rome Instructions Print Language: Gambian Discharge Orders/Prescriptions Prescriptions: New oxycodone 5 mg tablet 5 mg PO Q8H PRN (Reason: pain) 3 Days Qty: 10 0RF Continued DHA 200 mg capsule 200 mg PO DAILY Culturelle Probiotic 12 billion cell tablet,chewable 2 tab PO DAILY Referrals / Follow Up: Zachariah Rome DO [Primary Care Provider] - Disposition Disposition (needs filled in before D/C Order can be placed): Home, Self Care 08/19/24 1252Skelle Del Toro MD CC: Dr. Zachariah Rmoe DO ~ Signed [facility]07-15-2025 History and physical note [facility] Medical Records Department [address] [place] [address] History & Physical Exam 08/19/24 1146 MR#: [id number] Acct: [id number] Name: MACHELLEDULCE MARIA ELIZ Rep #:[id number] : 1995 28 From: Lawrence Del Toro MD PCP: Dr. Zachariah Rome DO Sta tus:REG [facility] Location: [place] [address] HPI - General General Date of Admission: 08/19/24 Date of Service: 08/19/24 Chief Complaint: left breast mass HPI Narrative DULCE MARIA CARTY, is a 28 F who presents for left breast lumpectomy [facility] Medical History Adenoma of breast Thyroid disease Migraine headache History of Holter monitoring History of echocardiogram Cardiology follow-up encounter Vasovagal near syncope IBS (irritable bowel syndrome) GERD (gastroesophageal reflux disease) Diseases of the circulatory system complicating , unspecified trimester Supraventricular tachycardia, unspecified Supraventricular tachycardia during Heart palpitations History of kidney disease Hypothyroidism affecting Normal endoscopic ultrasound of upper gastrointestinal tract Seasonal allergies Supervision of high-risk Infertility associated with anovulation Home Medications ?Medication ?Instructions ?Recorded ?Last Taken ?Type L. crispatus, gasseri, jensenii, 2 tab PO DAILY 09/25/23 08:00 History rhamnosus 12 billion cell chew tablet (Culturelle Probiotic) docosahexaenoic acid 200 mg 200 mg PO DAILY 06/26/23 0 09/25/23 08:00 History capsule ( DHA) Allergy/AdvReac Type Severity Reaction Status Date / Time nitrofurantoin Allergy Severe difficulty Verified 08/19/24 10:40 breathing alprazolam AdvReac Intermediate PT UNSURE Verified 08/19/24 10:40 OF REACTION quetiapine AdvReac Intermediate PT UNSURE Verified 08/19/24 10:40 OF REACTION Family History Grandmother Colon cancer Diabetes Mother Diabetes Pancreatic cancer Surgical History Hx of tonsillectomy [place] teeth extracted History of tonsillectomy Social History adopted: No household members: spouse and children number of children: 2 current occupational status: unemployed current occupation: [employer] current occupational exposures/hazards: No pets and animals: Yes (NOT MANAGING LITTERBOX) pets and animals: cat(s), dog(s), horse(s) and farm animals history of recent travel: No sexually active: Yes Smoking Status: Never smoker alcohol intake: never substance use type: does not use diet: other well-balanced diet: daily or most days caffeine: No eating out: 1-3 times/week during the past year weight has: remained stable what type of physical activity do you participate in: weight training frequency: 5-6 times per week duration: 15-30 minutes/day gale/restoration: Anglican seatbelt use: always do you feel safe at home: Yes additional social history: - [place] Vital Signs Vital Signs Vital Signs: 08/19/24 10:41 08/19/24 10:41 08/19/24 11:10 Temperature 97.8 F 97.8 F Temperature Source Temporal Pulse Rate 73 73 Respiratory Rate 16 16 Respiratory Pattern Normal Blood Pressure 123/73 H 123/73 H Blood Pressure Mean 89 Blood Pressure Source Monitor Blood Pressure Position Sitting Blood Pressure Location Right Arm Pulse Ox 100 100 Oxygen Delivery Method Room Air Room Air Weight Weight: 167 lb 8.821 oz Body Mass Index (BMI) 27.0 Physical Exam Const alert, oriented x3 and no apparent distress Results Lab / Micro Data Labs: Laboratory Results - last 24 hr 08/19/24 10:15: Urine Test Negative Assessment & Plan Assessment/Plan (1) Left breast lump: QUALIFIERS: Breast mass location: upper outer quadrant Qualified Code(s): N63.21 - Unspecified lumpin the left breast, upper outer quadrant PLAN: Plan left breast lumpectomy with US 08/19/24 1147 Cosigner Signature (if applicable): CC: Dr. Zachariah Rome DO; Dr. Lawrence Del Toro MD~ Signed [facility]07-15-2025 [facility] Medical Records Department [address] [place] [address] History Physical Exam 08/19/24 1146 MR#: [id number] Acct: [id number] Name: DULCE MARIA CARTY ELIZ Rep #: [id number] : 1995 28 From: Lawrence Del Toro MD PCP: Dr. Zachariah Rome DO Status:[facility] Location: [place] [address] HPI - General General Date of Admission: 08/19/24 Date of Service: 08/19/24 Chief Complaint: left breast mass HPI Narrative DULCE MARIA MACHELLE, is a 28 F who presents for left breast lumpectomy [facility] Medical History Adenoma of breast Thyroid disease Migraine headache History of Holter monitoring History of echocardiogram Cardiology follow-up encounter Vasovagal near syncope IBS (irritable bowel syndrome) GERD (gastroesophageal reflux disease) Diseases of the circulatory system complicating , unspecified trimester Supraventricular tachycardia, unspecified Supraventricular tachycardia during Heart palpitations History of kidney disease Hypothyroidism affecting Normal endoscopic ultrasound of upper gastrointestinal tract Seasonal allergies Supervision of high-risk Infertility associated with anovulation Home Medications ???Medication ???Instructions ???Recorded ???Last Taken ???Type L. crispatus, gasseri, jensenii, 2 tab PO DAILY 02/09/23 09/25/23 0 8:00 History rhamnosus 12 billion cell chew tablet (Culturelle Probiotic) docosahexaenoic acid 200 mg 200 mg PO DAILY 06/26/23 09/25/23 08:00 History capsule ( DHA) Allergy/AdvReac Type Severity Reaction Status Date / Time nitrofurantoin Allergy Severe difficulty Verified 08/19/24 10:40 breathing alprazolam AdvReac Intermediate PT UNSURE Verified 08/19/24 10:40 OF REACTION quetiapine AdvReac Intermediate PT UNSURE Verified 08/19/24 10:40 OF REACTION Family History Grandmother Colon cancer Diabetes Mother Diabetes Pancreatic cancer Surgical History Hx of tonsillectomy [place] teeth extracted History of tonsillectomy Social History adopted: No household members: spouse and children number of children: 2 current occupational status: unemployed current occupation: [employer] current occupational exposures/hazards: No pets and animals: Yes (NOT MANAGING LITTERBOX) pets and animals: cat(s), dog(s), horse(s) and farm animals history of recent travel: No sexually active: Yes Smoking Status: Never smoker alcohol intake: never substance use type: does not use diet: other well-balanced diet: daily or most days caffeine: No eating out: 1-3 times/week during the past year weight has: remained stable what type of physical activity do you participate in: weight training frequency: 5-6 times per week duration: 15-30 minutes/day gale/restoration: Anglican seatbelt use: always do you feel safe at home: Yes additional social history: - [place] Vital Signs Vital Signs Vital Signs: 08/19/24 10:41 08/19/24 10:41 08/19/24 11:10 Temperature 97.8 F 97.8 F Temperature Source Temporal Pulse Rate 73 73 Respiratory Rate 16 16 Respiratory Pattern Normal Blood Pressure 123/73 H 123/73 H Blood Pressure Mean 89 Blood Pressure Source Monitor Blood Pressure Position Sitting Blood Pressure Location Right Arm Pulse Ox 100 100 Oxygen Delivery Method Room Air Room Air Weight Weight: 167 lb 8.821 oz Body Mass Index (BMI) 27.0 Physical Exam Const alert, oriented x3 and no apparent distress Results Lab / Micro Data Labs: Laboratory Results - last 24 hr 08/19/24 10:15: Urine Test Negative Assessment Plan Assessment/Plan (1) Left breast lump: QUALIFIERS: Breast mass location: upper outer quadrant Qualified Code(s): N63.21 - Unspecified lump in the left breast, upper outer quadrant PLAN: Plan left breast lumpectomy with US 08/19/24 1147 Cosigner Signature (if applicable): CC: Dr. Zachariah Rome DO; Dr. Lawrence Del Toro MD [facility]07-01-2025 Evaluation note* Diagnosis Onset Date Resolution Status Admit Date Left breast lump acute August 8:12am Left breast lump acute August 10:05am [facility] Work Phone: 1(735) 331-944107-01-2025 Evaluation note* Diagnosis Onset Date Resolution Status Admit Date Left breast lump acute August 8:12am Left breast lump acute August 10:05am Left breast lump acute August 1:36pm Left breast lump acute September 052024 8:21am [employer] Work Phone: 1(678) 808-532707-01-2025 Evaluation note* Diagnosis Onset Date Resolution Status Admit Date Left breast lump acute August 8:12am Left breast lump acute August 10:05am Left breast lump acute August 1:36pm Left breast lump acute September 052024 8:21am Heart palpitations acute 2024 8:54am [employer] Work Phone: 1(129) 951-534707-01-2025 Evaluation note* Diagnosis Onset Date Resolution Status Admit Date Left breast lump acute August 8:12am Left breast lump acute August 10:05am Left breast lump acute August 1:36pm Left breast lump acute September 052024 8:21am Heart palpitations acute 2024 8:54am Near syncope noneactive October 152024 8:54am [employer] Work Phone: 1(883) 210-680307-01-2025 Evaluation note* Diagnosis Onset Date Resolution Status Admit Date Left breast lump acute August 8:12am Left breast lump acute August 10:05am Left breast lump acute August 1:36pm Left breast lump acute September 052024 8:21am Heart palpitations acute 2024 8:54am Near syncope noneactive October 152024 8:54am Abnormal ultrasound of breast acute October 20, 2024 12:49pm Heart palpitations acute 2024 1:35pm SOB (shortness of breath) acute October 27, 2024 1:35pm [employer] Work Phone: 1(575) 253-743507-01-2025 Evaluation note* Diagnosis Onset Date Resolution Status Admit Date Left breast lump acute August 8:12am Left breast lump acute August 10:05am Left breast lump acute August 1:36pm Left breast lump acute September 052024 8:21am Heart palpitations acute 2024 8:54am Near syncope noneactive October 152024 8:54am Abnormal ultrasound of breast acute October 20, 2024 12:49pm Heart palpitations acute 2024 1:35pm SOB (shortness of breath) acute October 27, 2024 1:35pm Amenorrhea acute November 10, 025 1:59pm Epigastric abdominal pain acute November 10, 2024 1:59pm Pelvic pain acute November 10, 2024 1:59pm [facility] Work Phone: 1(679) 632-701404-17-2025 NoteHNO ID: [id number] Author: DANYA PUGH DO Service: ? Author Type: Physician Type: Progress Notes Filed: 05/22/2024 10:55 Note Text: [facility] MEET THE JUMPBASTING COLLAR BASTER VISIT Patient seen on Audio Only Visit platform PCP: Lawrence Rome MD May is a 28 year old female who presents today for a meet and greet visit. Attempted Mychart virtual visit but parent could not connect. Phone conversation today only Concerns: " meet and greet". Mother has 8 month old and 3 year old children. 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 We discussed that she is interested in a slower vaccine schedule, is open to more natural/ alternative options. Mom made aware that I do practice out of the country for 18 weeks a year and plan to retire in 4 years but anyone in our office would be happy to cover, or other [facility] sites. All questions answered I spent a total of 10 minutes on the date of the service which included counseling and educating the patient/family/caregiver. Danya Pugh, [facility]04-17-2025 History of Present illness Narrative* Danya Pugh DO - 05/22/2024 10:51 AM EDT [facility] MEET THE JUMPBASTING COLLAR BASTER VISIT Patient seen on Audio Only Visit platform PCP: Lawrence Rome MD May is a 28 year old female who presents today for a meet and greet visit. Attempted Mychart virtual visit but parent could not connect. Phone conversation today only Concerns: " meet and greet". Mother has 8 month old and 3 year old children. 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 We discussed that she is interested in a slower vaccine schedule, is open to more natural/ alternative options. Mom made aware that I do practice out of the country for 18 weeks a year and plan to retire in 4 years but anyone in our office would be happy to cover, or other [facility] sites. All questions answered I spent a total of 10 minutes on the date of the service which included counseling and educating the patient/family/caregiver. Danya Pugh DO documented in this encounterSalem [facility] Medical Center04-01-2025 Consult note Author Susana Akhtar [facility] Note Date/Time August 19, 2024 1:11 pm [facility] Medical Records Department [address] [place] [address] Anesthesia Postop Eval I 08/19/24 1311 MR#: [id number] Acct: [id number] Name: DULCE MARIA CARTY ELIZ Rep #:[id number] : 1995 28 From: Susana Wade RNA PCP: Dr. Zachariah Rome DO Sta tus:REG [facility] Y Race: C Location: [place] [address] Anesthesia: Postop Eval I Current Vital Signs Temperature: 97.3 F Pulse Rate: 70 Blood Pressure: 107/57 Respiratory Rate: 16 Pulse Ox: 99 Oxygen Delivery Method: Room Air Assessment Airway patent: Yes Spontaneous unlabored respirations: Yes Mental status: Awake and Calm nausea: No Vomiting: No Anesthesia Complication: No Fluid Hydration Crystalloid volume administer (ml): 700 Total IV fluid infused: 700 Progress Note Anesthesia document: Postop Eval 1 completed: Yes 08/19/24 1311 <Electronically signed by Susana Akhtar CRNA> Date _ Susana Akhtar CRNA Cosigner Signature: Date CC: ~ Signed [facility] Work Phone: 1(972) 805-952104-01-2025 Discharge summary Author Lawrence Del Toro [facility] Note Date/Time August 19, 2024 12:5 2pm [facility] Medical Records Department [address] [place] [address] Instructions for Home/Discharge Instructions 08/19/24 1244 MR#: [id number] Acct: [id number] Name: DULCE MARIA CARTY ELIZ Rep #:[id number] : 1995 28 From: Lawrence Del Toro MD PCP: Dr. Zachariah Rome DO Sta tus:REG [facility] Discharge Instructions Diet Discharge Diet: Light diet - advance as tolerated Activity Discharge Activity: Return to Normal Activity and May Shower May shower in (days): 1 Ice area for (Minutes): 30 Dressing / Incision Call your doctor if your incision/area has: Continuous Slow Oozing, Sudden Increased Bleeding, Increased Pain/ Swelling, Increased Redness, Foul Smelling Discharge and Swelling at the incision site Call your doctor if you observe: Fever of 101 or Higher Cleanse incision/area with: Soap & Water Follow Up Care Please Follow Up With: Lawrence Del Toro MD When: 1 to 2 weeks. Please call office to schedule appointment Test Results: Test results from this visit will be discussed in further detail at your follow- up appointment, if applicable. Discharge Plan Admission Primary Reason for Your Visit: Left breast lumpectomy Attending Provider: Lawrence Del Toro Primary Care Provider: Zachariah Rome Instructions Print Language: Gambian Discharge Orders/Prescriptions Prescriptions: New oxycodone 5 mg tablet 5 mg PO Q8H PRN (Reason: pain) 3 Days Qty: 10 0RF Continued DHA 200 mg capsule 200 mg PO DAILY Culturelle Probiotic 12 billion cell tablet,chewable 2 tab PO DAILY Referrals / Follow Up: Zachariah Rome DO [Primary Care Provider] - Disposition Disposition (needs filled in before D/C Order can be placed): Home, Self Care 08/19/24 1252<Electronically signed by Lawrence Del Toro MD>Lawrence Del Toro MD CC: Dr. Zachariah Rome, ~ Signed [facility] Work Phone: 1(683) 869-955604-01-2025 History and physical note Author Lawrence Del Toro [facility] Note Date/Time August 19, 2024 11:4 7am [facility] Medical Records Department [address] [place] [address] History & Physical Exam 08/19/24 1146 MR#: [id number] Acct: [id number] Name: DULCE MARIA CARTY ELIZ Rep #:[id number] : 1995 28 From: Lawrence Del Toro MD PCP: Dr. Zachariah Rome DO Sta tus:REG [facility] Location: [place] [address] HPI - General General Date of Admission: 08/19/24 Date of Service: 08/19/24 Chief Complaint: left breast mass HPI Narrative DULCE MARIA CARTY, is a 28 F who presents for left breast lumpectomy [facility] Medical History Adenoma of breast Thyroid disease Migraine headache History of Holter monitoring History of echocardiogram Cardiology follow-up encounter Vasovagal near syncope IBS (irritable bowel syndrome) GERD (gastroesophageal reflux disease) Diseases of the circulatory system complicating , unspecified trimester Supraventricular tachycardia, unspecified Supraventricular tachycardia during Heart palpitations History of kidney disease Hypothyroidism affecting Normal endoscopic ultrasound of upper gastrointestinal tract Seasonal allergies Supervision of high-risk Infertility associated with anovulation Home Medications ?Medication ?Instructions ?Recorded ?Last Taken ?Type L. crispatus, gasseri, jensenii, 2 tab PO DAILY 09/25/23 08:00 History rhamnosus 12 billion cell chew tablet (Culturelle Probiotic) docosahexaenoic acid 200 mg 200 mg PO DAILY 06/26/23 0 09/25/23 08:00 History capsule ( DHA) Allergy/AdvReac Type Severity Reaction Status Date / Time nitrofurantoin Allergy Severe difficulty Verified 08/19/24 10:40 breathing alprazolam AdvReac Intermediate PT UNSURE Verified 08/19/24 10:40 OF REACTION quetiapine AdvReac Intermediate PT UNSURE Verified 08/19/24 10:40 OF REACTION Family History Grandmother Colon cancer Diabetes Mother Diabetes Pancreatic cancer Surgical History Hx of tonsillectomy [place] teeth extracted History of tonsillectomy Social History adopted: No household members: spouse and children number of children: 2 current occupational status: unemployed current occupation: [employer] current occupational exposures/hazards: No pets and animals: Yes (NOT MANAGING LITTERBOX) pets and animals: cat(s), dog(s), horse(s) and farm animals history of recent travel: No sexually active: Yes Smoking Status: Never smoker alcohol intake: never substance use type: does not use diet: other well-balanced diet: daily or most days caffeine: No eating out: 1-3 times/week during the past year weight has: remained stable what type of physical activity do you participate in: weight training frequency: 5-6 times per week duration: 15-30 minutes/day gale/restoration: Anglican seatbelt use: always do you feel safe at home: Yes additional social history: - LUKE Vital Signs Vital Signs Vital Signs: 08/19/24 10:41 08/19/24 10:41 08/19/24 11:10 Temperature 97.8 F 97.8 F Temperature Source Temporal Pulse Rate 73 73 Respiratory Rate 16 16 Respiratory Pattern Normal Blood Pressure 123/73 H 123/73 H Blood Pressure Mean 89 Blood Pressure Source Monitor Blood Pressure Position Sitting Blood Pressure Location Right Arm Pulse Ox 100 100 Oxygen Delivery Method Room Air Room Air Weight Weight: 167 lb 8.821 oz Body Mass Index (BMI) 27.0 Physical Exam Const alert, oriented x3 and no apparent distress Results Lab / Micro Data Labs: Laboratory Results - last 24 hr 08/19/24 10:15: Urine Test Negative Assessment & Plan Assessment/Plan (1) Left breast lump: QUALIFIERS: Breast mass location: upper outer quadrant Qualified Code(s): N63.21 - Unspecified lump in the left breast, upper outer quadrant PLAN: Plan left breast lumpectomy with 08/19/24 1140 <Electronically signed by Lawrence Del Toro MD> Cosigner Signature (if applicable): CC: Dr. Zachariah Rome, DO; Dr. Lawrence Del Toro MD~ Signed [facility] Work Phone: [phone] History of Present illness Narrative* Boston Cortez MD - 04/17/2024 9:00 AM EDT Department of Neurological Sciences Initial Consult Note CHIEF COMPLAINT: Chief Complaint Patient presents with Follow-up Headaches Reason for Consult: Chronic daily headache and new onset versus chronic migraine without aura. HISTORY OF PRESENT ILLNESS: The patient is a 28 y.o. female who presents with history of chronic daily headache for the last several months. Patient have a history of migraine headaches but in the last several months has becomemore frequent and severe. Patient reported that she has had some degree of headaches on a daily basis. Her headaches usually are bilateral throbbing associated sometimes with jabbing headache. In addition patient complaining of some light sensitivity as well as photophobia. Patient denied any aura.patient has been during 2023. Patient delivered at the end of 2023. Since then patient have headache almost on a daily basis. Her headaches RIF intensity from mild to moderate to severe heada ches. When the headaches are severe the pain is throbbing associated with photophobia and phonophobia. Patient is breast-feeding and is not allowed to take any of the medication for migraine headache. recently patient have an MRI of the brain ordered by her. The MRI was unremarkable. Patient deniedany other neurological deficit. Past Medical History: Past Medical History: Diagnosis Date Asthma 09/2016 Breast cyst, left 06/03/2021 Chronic sinusitis 12/2016 [facility] GERD (gastroesophageal reflux disease) 07/2016 EGD per [facility] Hypothyroid 2008 IBS (irritable bowel syndrome) 02/2016 constipation - Colonoscopy per [facility] Past Surgical History: Past Surgical History: Procedure Laterality Date COLONOSCOPY 02/2016 [facility] TONSILLECTOMY (HISTORICAL) 1999 UPPER GASTROINTESTINAL ENDOSCOPY 11/2016 [facility] Medications: Current Outpatient Medications Medication Sig Dispense Refill Magnesium 300 MG capsule Take by mouth. MV-Min-Fe Fum-FA-DHA ( 1 PO) Take by mouth. Probiotic Product (PROBIOTIC DAILY PO) Take by mouth. No current facility-administered medications for this visit. Allergies: Nitrofurantoin, Alprazolam, and Quetiapine Social History: Social History Socioeconomic History Marital status: Spouse name: Not on file Number of children: Not on file Years of education: Not on file Highest education level: Not on file Occupational History Not on file Tobacco Use Smoking status: Never Smokeless tobacco: Former Quit date: 04/05/2016 Vaping Use Vaping status: Never Used Substance and Sexual Activity Alcohol use: Not Currently Drug use: No Comment: caffiene: none Sexual activity: Yes Other Topics Concern Not on file Social History Narrative to Emile Nielson) since 07/21. NS or drinker, no children. 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 Social Drivers of Health Financial Resource Strain: Low Risk (04/20/2021) [facility] Overall Financial Resource Strain ([facility]) Difficulty of Paying Living Expenses: Not hard at all Food Insecurity: No Food Insecurity (04/20/2021) [facility] Hunger Vital Sign Worried About Running Out of Food in the Last Year: Never true Ran Out of Food in the Last Year: Never true Transportation Needs: No Transportation Needs (04/20/2021) [facility] PRAPARE - Transportation Lack of Transportation (Medical): No Lack of Transportation (Non-Medical): No Physical Activity: Sufficiently Active (04/20/2021) Re[facility] Exercise Vital Sign Days of Exercise per Week: 5 days Minutes of Exercise per Session: 30 min Stress: No Stress Concern Present (04/20/2021) Received from [facility] [place] [facility] - Occupational Stress Questionnaire Feeling of Stress : Not at all Social Connections: Moderately Integrated (04/20/2021) Received from [facility] Social Connection and Isolation Panel [NHANES] Frequency of Communication with Friends and Family: More than three times a week Frequency of Social Gatherings with Friends and Family: Twice a week Attends Mosque Services: More than 4 times per year Active Member of Clubs or Organizations: No Attends Club or Organization Meetings: Never Marital Status: Intimate Partner Violence: Not on file Housing Stability: Low Risk (04/20/2021) Received from [facility] Housing Stability Vital Sign Unable to Pay for Housing in the Last Year: No Number of Places Lived in the Last Year: 1 Unstable Housing in the Last Year: No Family History: Family History Problem Relation Name Age of Onset Ovarian cancer Neg Hx Diabetes Mother 35.00 on insulin at > 50 Lung cancer Maternal Grandfather Diabetes Maternal Cousin Gayle Colon cancer Maternal Grandmother 80.00 No Known Problems Paternal Grandmother Thyroid cancer Maternal Cousin Gayle Pancreatic cancer Mother Breast cancer Neg Hx No Known Problems Paternal Grandfather Other ([id number]) Father Danya 54.00 MVA in 2011 No Known Problems Sister Prostate cancer Maternal Grandfather REVIEW OF SYSTEMS: Review of Systems Constitutional: Positive for fatigue. HENT: Negative. Phonophobia Eyes: Positive for photophobia and visual disturbance. Respiratory: Negative. Cardiovascular: Positive for palpitations. Gastrointestinal: Positive for nausea and vomiting. Endocrine: Negative. Genitourinary: Negative. Musculoskeletal: Positive for back pain, neck pain and neck stiffness. Skin: Negative. Allergic/Immunologic: Negative. Neurological: Positive for dizziness, light-headedness and headaches. Hematological: Negative. Psychiatric/Behavioral: The patient is nervous/anxious. PHYSICAL EXAM: Vitals: BP 110/68 Ht 5' 6" (1.676 m) Wt 168 lb (76.2 kg) BMI 27.12 kg/m Physical Exam Constitutional: Appearance: Normal appearance. HENT: Head: Normocephalic and atraumatic. Nose: Nose normal. Mouth/Throat: Mouth: Mucous membranes are moist. Pharynx: Oropharynx is clear. Eyes: General: Vision grossly intact. Gaze aligned appropriately. Extraocular Movements: Extraocular movements intact. Conjunctiva/sclera: Conjunctivae normal. Pupils: Pupils are equal, round, and reactive to light. Neck: Trachea: Trachea and phonation normal. Cardiovascular: Rate and Rhythm: Normal rate and regular rhythm. Pulses: Normal pulses. Heart sounds: Normal heart sounds. Pulmonary: Effort: Pulmonary effort is normal. Breath sounds: Normal breath sounds. Abdominal: General: Abdomen is flat. Bowel sounds are normal. Palpations: Abdomen is soft. Musculoskeletal: General: Normal range of motion. Cervical back: Normal range of motion and neck supple. Skin: General: Skin is warm and dry. Neurological: General: No focal deficit present. Mental Status: She is alert and oriented to person, place, and time. Mental status is at baseline. Cranial Nerves: Cranial nerves 2-12 are intact. Deep Tendon Reflexes: Reflexes are normal and symmetric. Reflex Scores: Tricep reflexes are 2+ on the right side and 2+ on the left side. Bicep reflexes are 2+ on the right side and 2+ on the left side. Brachioradialis reflexes are 2+ on the right side and 2+ on the left side. Patellar reflexes are 2+ on the right side and 2+ on the left side. Achilles reflexes are 2+ on the right side and 2+ on the left side. Psychiatric: Attention and Perception: Attention normal. Mood and Affect: Mood normal. Speech: Speech normal. Behavior: Behavior normal. Behavior is cooperative. Thought Content: Thought content normal. Cognition and Memory: Cognition normal. Judgment: Judgment normal. Impression: Diagnosis Plan 1. Migraine without aura and without status migrainosus, not intractable 2. Chronic daily headache Plan: 1. Since patient is still breast-feeding there are only few options for treatment of headache while breast-feeding. I explained to the patient that the best way to control her headache will be to continue patient on magnesium as well as following a low tyramine diet. Or gluten-free diet. 2. Patient will return to the neurology clinic once that she is still breast- feeding if her headache persists. Thank you Boston Cortez MD documented in this [facility]02-26-2025 [facility] Medical Records Department [address] [place] [address] History Physical Exam 04/02/24 0646 MR#: [id number] Acct: [id number] Name: DULCE MARIA CARTY Rep #: [id number] : 1995 28 From: Mesha Kelley DO PCP: Dr. Zachariah Rome, Status:[facility] Location: [place] [address] HPI - General General Date of Admission: 04/02/24 Date of Service: 04/02/24 Chief Complaint: abdominal pain and lower GI bleeding HPI Narrative DULCE MARIA CARTY, is a 28 F who presents today for endoscopic evaluation of abdominal pain and blood in the stool. Pt has been struggling with abd pain since being with her second child. It started in the left lower quadrant but has no migrated to the right side. She is also having some epigastric pain and heartburn. She has been having more frequent and loose stool over the past couple of weeks. She is having a bm up to 3 times per day. She was diary free for some time and recently added daily marina in and she feels this may be a part of her issues. She has a family hx of pancreatic cancer. Her mother from this in her 50s. She feels nervous about this and is worried she may have a pancreas problem. [facility] Medical History Thyroid disease Migraine headache History of Holter monitoring History of echocardiogram Cardiology follow-up encounter Vasovagal near syncope IBS (irritable bowel syndrome) GERD (gastroesophageal reflux disease) Diseases of the circulatory system complicating , unspecified trimester Supraventricular tachycardia, unspecified Supraventricular tachycardia during Heart palpitations History of kidney disease Hypothyroidism affecting Normal endoscopic ultrasound of upper gastrointestinal tract Seasonal allergies Supervision of high-risk Infertility associated with anovulation Home Medications ???Medication ???Instructions ???Recorded ???Last Taken ???Type L. crispatus, gasseri, jensenii, 2 tab PO DAILY 02/09/23 09/25/23 0 8:00 History rhamnosus 12 billion cell chew tablet (Culturelle Probiotic) docosahexaenoic acid 200 mg 200 mg PO DAILY 06/26/23 09/25/23 08:00 History capsule ( DHA) magnesium 200 mg tablet 200 mg PO DAILY 03/31/24 Unknown H istory Allergy/AdvReac Type Severity Reaction Status Date / Time nitrofurantoin Allergy Severe difficulty Verified 04/02/24 05:55 breathing alprazolam AdvReac Intermediate PT UNSURE Verified 04/02/24 05:55 OF REACTION quetiapine AdvReac Intermediate PT UNSURE Verified 04/02/24 05:55 OF REACTION Family History Grandmother Colon cancer Diabetes Mother Diabetes Pancreatic cancer Surgical History Hx of tonsillectomy [place] teeth extracted History of tonsillectomy Social History adopted: No household members: spouse and children number of children: 2 current occupational status: unemployed current occupation: [employer] current occupational exposures/hazards: No pets and animals: Yes (NOT MANAGING LITTERBOX) pets and animals: cat(s), dog(s), horse(s) and farm animals history of recent travel: No sexually active: Yes Smoking Status: Never smoker alcohol intake: never substance use type: does not use diet: other well-balanced diet: daily or most days caffeine: No eating out: 1-3 times/week during the past year weight has: remained stable what type of physical activity do you participate in: weight training frequency: 5-6 times per week duration: 15-30 minutes/day gale/restoration: Anglican seatbelt use: always do you feel safe at home: Yes additional social history: - LUKE ROS Constitutional Constitutional: Denies fatigue, fever(s), poor appetite, weight gain or weight loss Gastrointestinal Gastrointestinal: Denies belching, bloating, change in bowel habits, change in stool character, chewing difficulty, coffee ground emesis, constipation, cramping, diarrhea, dyspepsia, dysphagia, early satiety, excessive flatus, fecal incontinence, heartburn, hematemesis, hematochezia, hemorrhoids, loose stools, melena, nausea, odynophagia, rectal bleeding, tenesmus, vomiting or weight changes Vital Signs Vital Signs Vital Signs: 04/02/24 05:56 04/02/24 05:56 04/02/24 06:26 Temperature 97.9 F 97.9 F Temperature Source Temporal Pulse Rate 80 80 Respiratory Rate 16 16 Respiratory Pattern Normal Blood Pressure 112/70 112/70 Blood Pressure Mean 84 Blood Pressure Source Monitor Blood Pressure Position Semi-Fowlers Blood Pressure Location Left Arm Pulse Ox 100 100 Oxyg (more content not included)...[facility]05-13-2024 Telephone encounter Note* Telephone Encounter - WILLARD Lala CNP - 06/18/2023 4:13 PM EDT Ok see how she is feeling when she calls back. Can fit her in somewhere if she needs seen. [employer] Phone: 1(869) 691-289205-13-2024 Miscellaneous Notes* Telephone Encounter - WILLARD Lala CNP - 06/18/2023 4:13 PM EDT Ok see how she is feeling when she calls back. Can fit her in somewhere if she needs seen. * Telephone Encounter - Leigh Medeiros RN - 06/18/2023 3:35 PM EDT Called but had to leave a message on voice mail that Dr Corcoran was to call her but he is out for the week but he had commented 04-21-23 that it is normal to have increased heart rate and to feel more palpitations while but if she is not feeling well to call back and perhaps have her seen by WILLARD * Telephone Encounter - Leigh Phillip - 06/18/2023 3:14 PM EDT Pt lvm checking status of plan for heart palpations. Pt requesting a call back. * Telephone Encounter - Leigh Medeiros RN - 06/12/2023 4:[address] Corcoran will call patient * Telephone Encounter - Leigh Phillip - 06/12/2023 3:47 PM EDT Pt is 25wk and pt is reporting increased heart palpitation for about 3M now last seen in 02/13/2023, PRN at that time. Pt's OB instructed her to call to check in documented in this encounterSOhio[facility] [id number] Telephone encounter Note* Telephone Encounter - Leigh Medeiros RN - 06/18/2023 3:35 PM EDT Called but had to leave a message on voice mail that Dr Corcoran was to call her but he is out for the week but he had commented 04-21-23 that it is normal to have increased heart rate and to feel more palpitations while but if she is not feeling well to call back and perhaps have her seen by DIAGNOSTIC IMAGING MANAGER [id number] Telephone encounter Note* Telephone Encounter - Leigh Phillip - 06/18/2023 3:14 PM EDT Pt lvm checking status of plan for heart palpations. Pt requesting a call back. [id number] Telephone encounter Note* Telephone Encounter - Leigh Medeiros RN - 06/12/2023 4:[address] Corcoran will call patient [id number] Telephone encounter Note* Telephone Encounter - Leigh Phillip - 06/12/2023 3:47 PM EDT Pt is 25wk and pt is reporting increased heart palpitation for about 3M now last seen in 02/13/2023, PRN at that time. Pt's OB instructed her to call to check in [facility] [id number] Telephone encounter Note* Telephone Encounter - Amanda Shaw - 05/22/2023 2:04 PM EDT We have been unable to reach your patient to schedule their testing. Test Name: Pelvic Health PT 1st Attempt: 12/20/22 2nd Attempt: 05/22/23 [facility] [id number] Miscellaneous Notes* Telephone Encounter - Amanda Shaw - 05/22/2023 2:04 PM EDT We have been unable to reach your patient to schedule their testing. Test Name: Pelvic Health PT 1st Attempt: 12/20/22 2nd Attempt: 05/22/23 documented in this encounterSOhioHealth Van Wert [id number] History of Present illness Narrative* Solange Corcoran MD - 02/13/2023 9:45 AM EST [facility] [place] Cardiology/Electrophysiology Follow Up Clinic Note Chief Complaint: Chief Complaint Patient presents with Dizziness Orthostatic Hypotension Palpitations PVC,PAC Other 9 weeks History of Present Illness: Dulce Maria Carty is a 27 y.o. female whom I met in June 2022 for episodes of near syncope and syncope.She has had orthostatic dizziness since the age of 11. The episodes are always related to change inposition. They are characterized by diaphoresis, nausea, blurry vision and palpitation. Her husbandhas noted her to be pale. Her pulse [...] met her she 182 stay away from meds and I encouraged her to stay well-hydrated [...] also has ringing in her ears and painin the back of her neck. She continues [...] her symptoms are fairly classic for vasovagal nearsyncope/syncope. Her syndrome is more consistent with hypotension rather than postural tachycardia.I do not think the eye pain, flashing lights symptoms are related to her blood pressure. She did have migraines at a younger age and I wonder if these are atypical migraines. She is fairly against taking medications. Today we spoke again about keeping well- hydrated and liberalizing salt in her diet. I also asked her to continue to monitor blood pressures when the episodes occur. In June we spoke about meds like Florinef or midodrine. I would not do that during . For now, I will have hercontinue with behavioral modifications and measure her blood pressure. Past Medical History: Past Medical History: Diagnosis Date Asthma 09/2016 Breast cyst, left 06/03/2021 Chronic sinusitis 12/2016 [facility] GERD (gastroesophageal reflux disease) 07/2016 EGD per [facility] Hypothyroid 2009 IBS (irritable bowel syndrome) 02/2016 constipation - Colonoscopy per [facility] Past Surgical History Past Surgical History: Procedure Laterality Date COLONOSCOPY 02/2016 [facility] TONSILLECTOMY (HISTORICAL) 1999 UPPER GASTROINTESTINAL ENDOSCOPY 11/2016 [facility] Family History Family History Problem Relation Name Age of Onset Ovarian cancer Neg Hx Diabetes Mother 35.00 on insulin at > 50 Lung cancer Maternal Grandfather Diabetes Maternal Cousin Gayle Colon cancer Maternal Grandmother 80.00 No Known Problems Paternal Grandmother Thyroid cancer Maternal Cousin Gayle Pancreatic cancer Mother Breast cancer Neg Hx No Known Problems Paternal Grandfather Other ([id number]) Father Danya 54.00 MVA in 2011 No Known Problems [...] Blood pressure 104/70, pulse 110, height 5' 6" (1.676 m), weight 168 lb 9.6 oz (76.5 kg), SpO2 98%. Constitutional: Appears well kept and looks stated age; in NAD Psychiatric: A &O x3 Mood is pleasant; Affect is appropriate Musculoskeletal: Normocephalic; no joint swelling; gait steady; 5/5 muscle strength bilaterally in upper and lower extremities; no clubbing or cyanosis HEENT: Pupils are equal and round; Conjunctiva are not injected; Sclera are non- icteric; Airway andNares are patent; Ears without external abnormalities. Mucosa is pink; Dentition is normal Neck: Supple; No JVD or Bruits; No thyromegaly; No lymphadenopathy Respiratory: Lungs are clear with no rales or wheezes. Respiratory effort is normal and symmetricalbilaterally; Good air movement bilaterally Heart: RRR without [...] Value Date TRIG 38 04/07/2021 Radiology: Reviewed Solange Corcoran MD DATE of SERVICE: 02/13/2023 documented in this [facility]10-17-2023 History of Present illness Narrative* Claire Lewis DO - 11/21/2022 3:00 PM EDT Primary MD:Zachariah Rome DO CC: Urinary incontinence, bladder pain HPI: Dulce Maria Cesar Carty is a 27 y.o. () [...] or feel a bulge in her vagina. OFFICE SUPPORT ASSISTANT Hx: Menstrual Status: Posthysterectomy: no Ovaries: [x] [...] the echogenicity is mottled. This appearance may beseen with diffuse fibroid disease or adenomyosis. No [...] 06/03/2021 Chronic sinusitis 12/2016 [facility] GERD (gastroesophageal reflux disease) 07/2016 EGD per [facility] Hypothyroid 2009 IBS (irritable bowel syndrome) 02/2016 [facility] [facility]: Past Surgical History: Procedure Laterality Date COLONOSCOPY 02/2016 [facility] TONSILLECTOMY (HISTORICAL) 1999 UPPER GASTROINTESTINAL ENDOSCOPY 11/2016 [facility] Allergies: Allergies Allergen Reactions Nitrofurantoin Other [...] NS or drinker, no children. 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 [...] Hx No Known Problems Paternal Grandfather Other ([id number]) Father Danya Huggins.00 MVA in 2011 No Known Problems Sister [...] lymphadenopathy in the groin Pelvic Examination: A features reporter was present for this exam. Cough stress test: negative @ 40mL?? Urethral hypermobility: present? Neurologic: Motor and sensory exams grossly normal. Vulva External genitalia: normal appearing without erythema, ulcerations or lesions; no atrophy or loss of architecture; Normal Bartholin's and Grafton's glands Urethral meatus and urethra: normal position [...] muscle tone: normal Pelvic floor Muscle Contraction (Nelson Score): 3/5 POP-Q: -3 Aa -3 Ba -9 C 2 GH 3 PB 10 TVL -2 Ap -2 Bp -10 D - Overall Stage?I prolapse ? Perineum: no fissures, lesions or skin irritation Rectal: No external hemorrhoidal tissue. No fissures. No rectal mucosal prolapse visible. PROCEDURE: Void: 100mL Catheterization Indication: ?Sensation of incomplete emptying Urethra cleaned with betadine 8 Cameroonian catheter placed without difficulty. Findings: postvoid residual: [...] UTI, upper tract etiology, IC/BPS, ovarian cyst, andothers - discussed symptom tracking to identify any triggers/exacerbating factors - given that symptoms are improving I do not think she needs office cysto now, but could consider cysto/hydro if she proceeds with dx laparoscopy to evaluate for endometriosis in the future Stress Urinary Incontinence: - TRAIN BRAKE OPERATOR: negative @ 40mL - Urethral hypermobility: present [...] works, how it is placed, fascial harvesting, general& mesh risks, success rates, recovery) [] Transurethral bulking agent injection (including how it works, how it is done, risks, success rates, recovery) Plan based on discussion and patient preference/goals: discussed kegel exercises and referral to pelvic PT. She and her are trying to conceive so would recommend conservative interventions atthis point. 3. Stage I rectocele, largely asymptomatic [...] Performing a medical appropriate exam and/or evaluation * Leidy Stewart MA - 11/21/2022 3:00 PM EDT Examination chaperoned by BABAK Farris documented in this [facility]08-04-2023 History of Present illness Narrative* Anabella Hurtado DO - 09/08/2022 11:20 AM EDT Images from the original note were not included. [facility] [address] [facility] [id number] Visit type: New Patient Reason for [...] gone up and down. She did a elizabeth smear and a CT scan abd - [...] headaches. Negative for dizziness, tremors, seizures, speech difficulty,weakness and numbness. Hematological: Negative for adenopathy. Does [...] 06/03/2021 Chronic sinusitis 12/2016 [facility] GERD (gastroesophageal reflux disease) 07/2016 E[facility] Hypothyroid 2009 IBS (irritable bowel syndrome) 02/2016 constipation - Colonoscopy per [facility] Social History Socioeconomic History Marital status: Tobacco Use Smoking status: Never Smokeless tobacco: Former Quit date: 04/05/2016 Vaping Use Vaping Use: Never used Substance and Sexual Activity Alcohol use: Not Currently Drug use: No Comment: caffiene: none Sexual activity: Yes Social History Narrative to Emile Nielson) since 07/21. NS or drinker, no children. 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 Past Surgical History: Procedure Laterality Date COLONOSCOPY 02/2016 [facility] TONSILLECTOMY (HISTORICAL) 1999 UPPER GASTROINTESTINAL ENDOSCOPY 11/2016 [facility] Past Surgical History: Procedure Laterality Date COLONOSCOPY 02/2016 [facility] TONSILLECTOMY (HISTORICAL) 1999 UPPER GASTROINTESTINAL ENDOSCOPY 11/2016 [facility] Family History Problem Relation Name Age of Onset Ovarian cancer Neg Hx Diabetes Mother 35.00 on insulin at > 50 Lung cancer Maternal Grandfather Diabetes Maternal Cousin Gayle Colon cancer Maternal Grandmother 80.00 No Known Problems Paternal Grandmother Thyroid cancer Maternal Cousin Gayle Pancreatic cancer Mother Breast cancer Neg Hx No Known Problems Paternal Grandfather Other ([id number]) Father Danya 54.00 MVA in 2011 No Known Problems Sister Prostate cancer Maternal Grandfather Objective BP 115/72 Pulse 72 Ht 5' 6" (1.676 m) Wt 156 lb (70.8 kg) [...] Up: There are no discontinued medications. Anabella Hurtado DO 09/11/2022 9:18 AM documented in this [facility]07-11-2023 History of Present illness Narrative* Cathy Watson, - 08/15/2022 9:45 AM EDT Hematology/Oncology Office Visit Consultation/Referral Reason: low WBC Referred by: Dr. Rome HPI: Dulce Maria Carty is a 26 y.o. female who was referred to hematology for evaluation of a low WBC in July 2022. Records from her PCP were reviewed and summarized. From last visit: The patient reports shestarted feeling ill about 3-4 months ago. She [...] excessively heavy. No history of autoimmune disorders. MICHELLE recently was negative. Today, she is here for routine follow up and to review her lab work and CT results. Labs were unremarkable. WBC was within normal limits. No neutropenia. CT also unremarkable. She continues to have GI/abdominal complaints as outlined above. Past Medical History: Diagnosis Date Asthma 09/2016 Breast cyst, left 06/03/2021 Chronic sinusitis 12/2016 [facility] GERD (gastroesophageal reflux disease) 07/2016 EGD per [facility] Hypothyroid 2009 IBS (irritable bowel syndrome) 02/2016 constipation - Colonoscopy per [facility] Past Surgical History: Procedure Laterality Date COLONOSCOPY 02/2016 [facility] TONSILLECTOMY (HISTORICAL) 2000 UPPER GASTROINTESTINAL ENDOSCOPY 11/2016 [facility] Patient Active Problem List Diagnosis Date [...] Hx No Known Problems Paternal Grandfather Other ([id number]) Father Danya 54.00 MVA in 2011 No Known Problems [...] dizziness and light-headedness. Negative for syncope, weakness, numbnessand headaches. Hematological: Negative for adenopathy. Does not bruise/bleed easily. Psychiatric/Behavioral: Negative for confusion and sleep disturbance. The patient is not nervous/anxious. All other systems reviewed and are negative. Vitals: 08/15/22 0943 BP: (!) 160/78 BP Location: Right arm Patient Position: Sitting Pulse: 102 Temp: 98.8 F (37.1 C) TempSrc: Temporal SpO2: 97% Weight: 162 lb 12.8 oz (73.8 kg) Height: 5' 6" (1.676 m) ECOG PS = 0 Physical [...] Creatinine or Cystatin C result, go to [email or web address] BUN/CREATININE RATIO 08/02/2022 NOT APPLICABLE 6 - 22 (calc) Final SODIUM 08/02/2022 137 135 - [...] Case Report 07/24/2022 Final Value:Peripheral Smear Case: [id number] Authorizing Provider: Zachariah Rome DO Collected: 07/24/2022 111 Ordering Location: [facility] Laboratory Received: 07/24/2022 111 Pathologist: Nithin Verdugo DO Specimen: Blood, Venous Final Diagnosis 07/24/2022 Final Value:This result contains rich text formatting which cannot be displayed here. Pathologist Interpretation Location 07/24/2022 [facility], [address] [place] [address],[facility] [address], CLIA: [id number]; Joint Commission: [id number]; CAP: [id number] Final Gross Description 07/24/2022 Final Value:This result [...] pelvis wo IV contrast Narrative: Patient Name: MACHELLE MAY : 1995 [facility]#: [id number] Exam Date/Time: 08/11/2022 15:50 Procedure: CT ABDOMEN [...] up with PCP. I'll be happy to re- evaluate patient in the future if the need arises. Cathy Watson DO Hematology/Medical Oncology documented in this [facility]06-28-2023 History of Present illness Narrative* Cathy Watson DO - 08/02/2022 10:30 AM EDT New Patient Hematology/Oncology Office Visit Consultation/Referral Reason: low WBC Referred by: Dr. Rome HPI: Dulce Maria Carty is a 26 y.o. female who comes in today for evaluation of a low WBC. Records from [facility] were reviewed and summarized. The patient reports she started feeling ill about 3-4 months ago.She developed abdominal pain and also had protein [...] was referred to cardiology and diagnosed with vasovagalnear syncope. Lab work from 04/13/22 showed a wbc of 3.3, hb 14, plts 153, ANC 1.57. the CBC was repeated a few weeks later and was normal. She denies any fevers or infections. No recent antibiotic use. She has regular menstrual cycles and does not feel they are excessively heavy. No history of autoimmune disorders. MICHELLE recently was negative. Past Medical History: Diagnosis Date Asthma 09/2016 Breast cyst, left 06/03/2021 Chronic sinusitis 12/2016 [facility] GERD (gastroesophageal reflux disease) 07/2016 EGD per [facility] Hypothyroid 2009 IBS (irritable bowel syndrome) 02/2016 constipation - Colonoscopy per [facility] Past Surgical History: Procedure Laterality Date COLONOSCOPY 02/2016 [facility] TONSILLECTOMY (HISTORICAL) 1999 UPPER GASTROINTESTINAL ENDOSCOPY 11/2016 [facility] Patient Active Problem List Diagnosis Date [...] Hx No Known Problems Paternal Grandfather Other ([id number]) Father Danya 54.00 MVA in 2011 No Known Problems [...] dizziness and light-headedness. Negative for syncope, weakness, numbnessand headaches. Hematological: Negative for adenopathy. Does not bruise/bleed easily. Psychiatric/Behavioral: Negative for confusion and sleep disturbance. The patient is not nervous/anxious. All other systems reviewed and are negative. Vitals: 08/02/22 1026 BP: 105/73 BP Location: Right arm Patient Position: Sitting Pulse: 84 Temp: 98.7 F (37.1 C) TempSrc: Temporal SpO2: 100% Weight: 166 lb 4.8 oz (75.4 kg) Height: 5' 6" (1.676 m) ECOG PS = 0 Physical [...] Case Report 07/24/2022 Final Value:Peripheral Smear Case: [id number] Authorizing Provider: Zachariah Rome DO Collected: 07/24/20221116 Ordering Location: [facility] Laboratory Received: 07/24/20221116 Pathologist: Nithin Verdugo DO Specimen: Blood, Venous Final Diagnosis 07/24/2022 Final Value:This result contains rich text formatting which cannot be displayed here. Pathologist Interpretation Location 07/24/2022 [facility], [address] [place] [address],[facility] [address], CLIA: [id number]; Joint Commission: [id number]; CAP: [id number] Final Gross Description 07/24/2022 Final Value:This result [...] provided a detailed discussion as noted above. Cathy Watson DO Hematology/Medical Oncology documented in this [facility]06-21-2023 NotePeripheral smear slide prepared for evaluation.[facility] [employer] Work Phone: 1(126) 511-378205-30-2023 History of Present illness Narrative* Solange Corcoran MD - 07/04/2022 1:15 PM EDT [facility] [place] Cardiology/Electrophysiology New Patient Clinic Note Chief Complaint: [...] she has never measured her blood pressure. Theytypically last several minutes, occur several times a [...] to check her BP and her heart ratewhen the episodes occur. We also spoke about possible medical therapy with drugs like Florinef or midodrine. For now, I will have her do those behavioral modifications and measure her blood pressure.I will see her back in 1 to 2 months and see how she is doing. We will further discuss medical therapy Past Medical History: Past Medical History: Diagnosis Date Asthma 09/2016 Breast cyst, left 06/03/2021 Chronic sinusitis 12/2016 [facility] GERD (gastroesophageal reflux disease) 07/2016 EGD per [facility] Hypothyroid 2008 IBS (irritable bowel syndrome) 02/2016 constipation - Colonoscopy per [facility] Past Surgical History Past Surgical History: Procedure Laterality Date COLONOSCOPY 02/2016 [facility] TONSILLECTOMY (HISTORICAL) 1999 UPPER GASTROINTESTINAL ENDOSCOPY 11/2016 [facility] Family History Family History Problem Relation Name Age of Onset Ovarian cancer Neg Hx Diabetes Mother 35.00 on insulin at > 50 Lung cancer Maternal Grandfather Diabetes Maternal Cousin Gayle Colon cancer Maternal Grandmother 80.00 No Known Problems Paternal Grandmother Thyroid cancer Maternal Cousin Gayle Pancreatic cancer Mother Breast cancer Neg Hx No Known Problems Paternal Grandfather Other ([id number]) Father Danya 54.00 MVA in 2011 No Known Problems [...] Blood pressure 130/80, pulse 102, height 5' 6" (1.676 m), weight 165 lb (74.8 kg), SpO2 96 %. Constitutional: Appears well kept and looks stated age; in NAD Psychiatric: A &O x3 Mood is pleasant; Affect is appropriate Musculoskeletal: Normocephalic; no joint swelling; gait steady; 5/5 muscle strength bilaterally in upper and lower extremities; no clubbing or cyanosis HEENT: Pupils are equal and round; Conjunctiva are not injected; Sclera are non- icteric; Airway andNares are patent; Ears without external abnormalities. Mucosa is pink; Dentition is normal Neck: Supple; No JVD or Bruits; No thyromegaly; No lymphadenopathy Respiratory: Lungs are clear with no rales or wheezes. Respiratory effort is normal and symmetricalbilaterally; Good air movement bilaterally Heart: RRR without [...] Value Date TRIG 38 04/07/2021 Radiology: Reviewed Solange Corcoran MD DATE of SERVICE: 07/04/2022 documented in this [facility]05-30-2023 History of Present illness Narrative* Solange Corcoran MD - 07/04/2022 1:15 PM EDT [facility] [place] Cardiology/Electrophysiology New Patient Clinic Note Chief Complaint: [...] she has never measured her blood pressure. Theytypically last several minutes, occur several times a [...] to check her BP and her heart ratewhen the episodes occur. We also spoke about possible medical therapy with drugs like Florinef or midodrine. For now, I will have her do those behavioral modifications and measure her blood pressure.I will see her back in 1 to 2 months and see how she is doing. We will further discuss medical therapy Past Medical History: Past Medical History: Diagnosis Date Asthma 09/2016 Breast cyst, left 06/03/2021 Chronic sinusitis 12/2016 [facility] GERD (gastroesophageal reflux disease) 07/2016 EGD per [facility] Hypothyroid 2008 IBS (irritable bowel syndrome) 02/2016 constipation - Colonoscopy per [facility] Past Surgical History Past Surgical History: Procedure Laterality Date COLONOSCOPY 02/2016 [facility] TONSILLECTOMY (HISTORICAL) 1999 UPPER GASTROINTESTINAL ENDOSCOPY 11/2016 [facility] Family History Family History Problem Relation Name Age of Onset Ovarian cancer Neg Hx Diabetes Mother 35.00 on insulin at > 50 Lung cancer Maternal Grandfather Diabetes Maternal Cousin Gayle Colon cancer Maternal Grandmother 80.00 No Known Problems Paternal Grandmother Thyroid cancer Maternal Cousin Gayle Pancreatic cancer Mother Breast cancer Neg Hx No Known Problems Paternal Grandfather Other ([id number]) Father Danya 54.00 MVA in 2011 No Known Problems [...] Blood pressure 130/80, pulse 102, height 5' 6" (1.676 m), weight 165 lb (74.8 kg), SpO2 96 %. Constitutional: Appears well kept and looks stated age; in NAD Psychiatric: A &O x3 Mood is pleasant; Affect is appropriate Musculoskeletal: Normocephalic; no joint swelling; gait steady; 5/5 muscle strength bilaterally in upper and lower extremities; no clubbing or cyanosis HEENT: Pupils are equal and round; Conjunctiva are not injected; Sclera are non- icteric; Airway andNares are patent; Ears without external abnormalities. Mucosa is pink; Dentition is normal Neck: Supple; No JVD or Bruits; No thyromegaly; No lymphadenopathy Respiratory: Lungs are clear with no rales or wheezes. Respiratory effort is normal and symmetricalbilaterally; Good air movement bilaterally Heart: RRR without [...] Value Date TRIG 38 04/07/2021 Radiology: Reviewed Solange Corcoran MD DATE of SERVICE: 07/04/2022 documented in this [facility]03-20-2023 Telephone encounter Note* Telephone Encounter - Valentine Mart - 04/24/2022 10:58 AM EDT Left message for patient. Dr. Price placed order for echocardiogram. Left phone number for Central Scheduling - asked patient to call and schedule ... [id number] Miscellaneous Notes* Telephone Encounter - Valentine Mart - 04/24/2022 10:58 AM EDT Left message for patient. Dr. Price placed order for echocardiogram. Left phone number for Central Scheduling - asked patient to call and schedule ... documented in this [place] [address]-17-2023 History of Present illness Narrative* Valeria Maya MD - 04/21/2022 8:00 AM EDT May Machelle 04/21/2023 26 y.o. Chief Complaint Patient presents with Annual Exam Annual exam Patient's last menstrual period was 04/13/2022 (exact date). Primary Care Physician: Zachariah Rome DO The patient was seen and examined. She is here for her annual. Pap 04/26 wnl no abnormal paps. Birthcontrol not desired. Gardasil not desired. Std testing not desired. Having pain. Got appt with GI but not until May. Wants hormone testing. +Hot flashes 3 months. Stopped . Also acne. Menses every month last 4-6 days.. Used to be on thyroid med in past. Has [facility] scheduled to check ovaries. Will start pnv. wants to have another baby HPI : Dulce Maria Carty is a 26 y.o. female OB History Para Term AB Living 1 1 1 1 SAB IAB Ectopic Multiple Live Births 1 # Outcome Date GA Lbr Ulisses/2nd Weight Sex Delivery Anes PTL Lv 1 Term 09/15/20 41w3d 3941 g (8 lb 11 oz) M N LESLEY Past Medical History: Diagnosis Date Asthma 09/2016 Breast cyst, left 06/03/2021 Chronic sinusitis 12/2016 ENT eval per [facility] GERD (gastroesophageal reflux disease) 07/2016 EGD per [facility] Hypothyroid 2009 IBS (irritable bowel syndrome) 02/2016 constipation - Colonoscopy [facility] Past Surgical History: Procedure Laterality Date COLONOSCOPY 02/2016 [facility] TONSILLECTOMY (HISTORICAL) 1999 UPPER GASTROINTESTINAL ENDOSCOPY 11/2016 [facility] Family History Problem Relation Name Age of Onset Ovarian cancer Neg Hx Diabetes Mother 35.00 on insulin at > 50 Lung cancer Maternal Grandfather Diabetes Maternal Cousin Gayle Colon cancer Maternal Grandmother 80.00 No Known Problems Paternal Grandmother Thyroid cancer Maternal Cousin Gayle Pancreatic cancer Mother Breast cancer Neg Hx No Known Problems Paternal Grandfather Other ([id number]) Father Danya 54.00 MVA in 2011 No Known Problems Sister Prostate cancer Maternal Grandfather Social History Socioeconomic History Marital status: Spouse [...] NS or drinker, no children. 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 Social Determinants of Health Financial Resource Strain: Not on file Food Insecurity: Not on file Transportation Needs: Not on file Physical Activity: Not on file Stress: Not on file Social Connections: Not on file Intimate Partner Violence: Not on file Housing Stability: Not on file MEDICATIONS: Current Outpatient Medications Medication Sig Dispense Refill Desiccated Beef Liver powder Probiotic Product (PROBIOTIC DAILY PO) Take by mouth. No current facility-administered medications for this visit. ALLERGIES: Allergies as of 04/21/2022 - Reviewed 04/21/2022 Allergen Reaction Noted Alprazolam Unknown 05/02/2018 Quetiapine Other 05/02/2018 Gynecologic History: Menstrual History: Patient's last menstrual period was 04/13/2022 (exact date). Review of Systems Constitutional: Negative for fever and unexpected weight change. HENT: Negative for congestion and sore throat. Eyes: Negative for discharge and visual disturbance. Respiratory: Negative for cough and shortness of breath. Cardiovascular: Negative for chest pain and leg swelling. Gastrointestinal: Positive for abdominal pain. Genitourinary: Positive for pelvic pain. Negative for dysuria. Musculoskeletal: Negative for arthralgias. Skin: Negative for rash. Neurological: Negative for weakness and headaches. Psychiatric/Behavioral: Negative for dysphoric mood. The patient is not nervous/anxious. PHYSICAL Exam: : Vitals: 04/21/22 0819 BP: 113/74 Pulse: 90 Weight: 72.6 kg (160 lb) Height: 1.676 m (5' 6") Physical Exam Constitutional: General: She is not in acute distress. Appearance: Normal appearance. HENT: Head: Normocephalic and atraumatic. Right Ear: External ear normal. Left Ear: External ear normal. Nose: Nose normal. Eyes: Conjunctiva/sclera: Conjunctivae normal. Neck: Thyroid: No thyromegaly. Cardiovascular: Rate and Rhythm: Normal rate. Pulmonary: Effort: Pulmonary effort is normal. No respiratory distress. Chest: Breasts: Right: No mass, nipple discharge, skin change or tenderness. Left: No mass, nipple discharge, skin change or tenderness. Abdominal: General: There is no distension. Palpations: Abdomen is soft. Tenderness: There is no abdominal tenderness. Genitourinary: General: Normal vulva. Pubic Area: No rash. Labia: Right: No rash or lesion. Left: No rash or lesion. Vagina: No vaginal discharge or bleeding. Cervix: No cervical motion tenderness. Uterus: Not enlarged and not tender. Adnexa: Right: No mass or tenderness. Left: No mass or tenderness. Rectum: Normal. Musculoskeletal: General: No swelling. Normal range of motion. Cervical back: Normal range of motion. Right lower leg: No edema. Left lower leg: No edema. Skin: General: Skin is warm and dry. Neurological: Mental Status: She is alert and oriented to person, place, and time. Mental status is at baseline. Psychiatric: Mood and Affect: Mood normal. Behavior: Behavior normal. ASSESSMENT: 26 y.o. Annual Diagnosis Plan 1. Well woman exam with routine gynecological exam 2. Hot flashes TSH Antimullerian hormone (AMH) TSH Antimullerian hormone (AMH) Chief Complaint Patient presents with Annual Exam Annual exam Past Medical History: Diagnosis Date Asthma 09/2016 Breast cyst, left 06/03/2021 Chronic sinusitis 12/2016 [facility] GERD (gastroesophageal reflux disease) 07/2016 E[facility] Hypothyroid 2008 IBS (irritable bowel syndrome) 02/2016 constipation - Colonoscopy per [facility] Hereditary Breast,Ovarian, Colon and Uterine Cancer screening Done. Tobacco & Secondary smoke risks reviewed; instructedon cessation and avoidance PLAN: Follow up for as scheduled rn obgyn ulsd and fu. Repeat Annual every 1 year PAP guidelines reviewed with pt Pt declined STD testing Gardasil counseling provided Routine health maintenance per patients PCP. Orders Placed This Encounter Procedures TSH Standing Status: Future Number of Occurrences: 1 Standing Expiration Date: 04/22/2023 Antimullerian hormone (AMH) Standing Status: Future Number of Occurrences: 1 Standing Expiration Date: 04/22/2023 documented in this [facility]03-16-2023 History of Present illness Narrative* Bhargavi Price MD - 04/20/2022 9:30 AM EDT [facility] Card[facility] [address] [facility] [address] Dept: [phone] Dept Loc: [phone] Visit type: Established : 1995 Assessment and Plan: Shortness of breath-episodic and not related to physical activity. Today in the office, her respiratory rate and oxygen sats were normal. She is also able to exercise and workout without symptoms. Wewill obtain a baseline transthoracic echocardiogram given recent . Dizziness-Holter monitor was normal. Today in the office, blood pressures and heart rates did not show any change with position. Her symptoms are suggestive of vertigo and not dizziness. Would recommend ENT work-up for possible BPPV. I will see her back in the office with results of her transthoracic echocardiogram. If this is normal, consider noncardiac causes of shortness of breath. Assessment and plan was discussed with patient who verbalized understanding and agreement. Chief Complaint: Chief Complaint Patient presents with Annual Exam Dizziness History of Present Illness: Dulce Maria Carty is a 26 y.o. female with history of asthma, chronic sinusitis, gastroesophageal reflux disease, hypothyroidism and irritable bowel syndrome. She is here for evaluation of dizziness/lightheadedness with concern for postural orthostatic tachycardia syndrome. She reports that she had her baby about a year and a half ago. Over the last 6 months, she has beennoticing episodes of dizziness more so when she moves her head or lifts her head up from a bending position. Sensation is that of the room spinning and she has to hold onto steady herself. Associatedwith some nausea, ringing in the ears, fullness in the head and fuzzy vision. Denies palpitations. She had an event monitor in 2020 which showed predominantly sinus rhythm with occasional sinus tachycardia up to 152 bpm and only rare unifocal PVCs and PACs. She also notes some shortness of breath which is not effort related. It can occur at rest. She is fairly active and exercises 5 days a week including weightlifting, cardio such as jumping jacks and burpees. During the workout, she does not report any shortness of breath or dizziness. Of note, in September 2020 she was noted to have protein in the urine and was seen by historiography professor andwas diagnosed with orthostatic proteinuria. Currently she is only on vitamins. ECG today is normal sinus rhythm with normal intervals. Past Medical History: Past Medical History: Diagnosis Date Asthma 09/2016 Breast cyst, left 06/03/2021 Chronic sinusitis 12/2016 ENT eval per [facility] GERD (gastroesophageal reflux disease) 07/[facility] Hypothyroid 2009 IBS (irritable bowel syndrome) 02/2016 constipation - Colonoscopy per [facility] Past Surgical History Past Surgical History: Procedure Laterality Date COLONOSCOPY 02/2016 [facility] TONSILLECTOMY (HISTORICAL) 1999 UPPER GASTROINTESTINAL ENDOSCOPY 11/2016 [facility] Family History Family History Problem Relation Name Age of Onset Ovarian cancer Neg Hx Diabetes Mother 35.00 on insulin at > 50 Lung cancer Maternal Grandfather Diabetes Maternal Cousin Gayle Colon cancer Maternal Grandmother 80.00 No Known Problems Paternal Grandmother Thyroid cancer Maternal Cousin Gayle Pancreatic cancer Mother Breast cancer Neg Hx No Known Problems Paternal Grandfather Other ([id number]) Father Danya 54.00 MVA in 2011 No Known Problems Sister Prostate cancer Maternal Grandfather Social History Social History Tobacco Use Smoking status: Never Smokeless tobacco: Former Quit date: 04/05/2016 Vaping Use Vaping Use: Never used Substance Use Topics Alcohol use: Not Currently Drug use: No Comment: caffiene: none Allergies: Allergies Allergen Reactions Alprazolam Unknown Quetiapine Other Medications: Current Outpatient Medications: Desiccated Beef Liver powder, , Disp: , Rfl: Probiotic Product (PROBIOTIC DAILY PO), Take by mouth., Disp: , Rfl: Review of Systems: Review of Systems Constitutional: Negative. HENT: Negative. Eyes: Negative. Respiratory: Positive for shortness of breath. Cardiovascular: Negative. Gastrointestinal: Negative. Endocrine: Negative. Genitourinary: Negative. Musculoskeletal: Negative. Allergic/Immunologic: Negative. Neurological: Positive for dizziness and light-headedness. Hematological: Negative. Psychiatric/Behavioral: Negative. Physical Examination: Vitals: Vitals: 04/20/22 0933 04/20/22 0935 04/20/22 0936 04/20/22 0939 BP: 115/78 112/80 114/84 BP Location: Left arm Left arm Left arm Patient Position: Lying Sitting Standing BP Cuff Size: Adult Adult Adult Pulse: 88 90 104 104 SpO2: 98% 98% 98% Weight: 159 lb 9.6 oz (72.4 kg) 159 lb 9.6 oz (72.4 kg) 159 lb 9.6 oz (72.4 kg) Height: 5' 6" (1.676 m) 5' 6" (1.676 m) 5' 6" (1.676 m) Body mass index is 25.76 kg/m . Physical Exam Constitutional: General: She is not in acute distress. Appearance: Normal appearance. HENT: Head: Normocephalic and atraumatic. Mouth/Throat: Mouth: Mucous membranes are moist. Eyes: General: No scleral icterus. Conjunctiva/sclera: Conjunctivae normal. Pupils: Pupils are equal, round, and reactive to light. Neck: Vascular: No carotid bruit. Cardiovascular: Rate and Rhythm: Normal rate and regular rhythm. Pulses: Normal pulses. Heart sounds: No murmur heard. No gallop. Pulmonary: Breath sounds: No wheezing or rales. Chest: Chest wall: No tenderness. Abdominal: General: Abdomen is flat. There is no distension. Palpations: Abdomen is soft. Tenderness: There is no abdominal tenderness. Musculoskeletal: General: No swelling. Right lower leg: No edema. Left lower leg: No edema. Skin: General: Skin is warm and dry. Capillary Refill: Capillary refill takes less than 2 seconds. Coloration: Skin is not jaundiced. Neurological: Mental Status: She is alert and oriented to person, place, and time. Psychiatric: Mood and Affect: Mood normal. Laboratory Tests: Lab Results Component Value Date WBC 4.7 02/17/2022 HGB 14.6 02/17/2022 HCT 43.2 02/17/2022 MCV 84.9 02/17/2022 PLT 180 02/17/2022 Lab Results Component Value Date GLUCOSE 90 02/17/2022 CALCIUM 9.1 02/17/2022 NA 136 02/17/2022 K 4.8 02/17/2022 CO2 28 02/17/2022 CL 106 02/17/2022 BUN 17 02/17/2022 CREATININE 0.79 02/17/2022 @LASTCMP@ Lab Results Component Value Date CHOL 229 (A) 04/07/2021 Lab Results Component Value Date TRIG 38 04/07/2021 Lab Results Component Value Date HDL 127 (A) 04/07/2021 No results found for: LDLCALC No results found for: BNP Cardiac Tests: EC04/20/22 Sinus Rhythm WITHIN NORMAL LIMITS ECG Measurements Heart Rate KY interval P wave axis QRS duration 90 BPM 144 msec 64 deg 86 msec QRS wave axis QT interval QTC interval T wave axis 73 deg 362 msec 414 msec 53 deg Last holter monitor 24 hour: 08/06/20 1. The predominant rhythm was sinus with periods of sinus tachycardia. Longest R:R interval was 1.4sec at 3:03:52 AM. Min HR : 54 BPM at 6:05:10 AM, Avg HR : 87 BPM, Max HR : 152 BPM at 8:42:07 AM 2. Ventricular ectopic activity consisted of unifocal PVCs. There were rare couplets. 3. Supraventricular ectopic activity consisted of PACs. 4. Normal Holter Monitor. Symptoms/ Palpitations were noted without any pathological arrhtyhmia. documented in this [facility]03-13-2023 History of Present illness Narrative* Brittany Sanchez MD - 04/17/2022 11:45 AM EDT HPI: Patient here for continued left lower quadrant pain. About a week after her last cycle she hadintense pain that almost brought her to the ER but then subsided. Since then has been on and off. She states that occasionally she has not moderate amount of bloating and constipation related with this. She has been seen by her primary care doctor for vague symptoms such as fatigue and was found tohave a low white blood cell count. As [...] AAOx3 Psych: normal affect Lungs: nonlabored breathing Dulce Maria was seen today for follow-up. Diagnoses and all orders for this visit: LLQ pain (Primary) - US pelvis transvaginal; Future - [facility]; Future Abdominal bloating - [facility]; Future Change in bowel habit - [facility]; Future PLAN: Ultrasound done in December [...] day of the visit. documented in this [facility]03-13-2023 Telephone encounter Note* Telephone Encounter - Duyen Olivia RN - 04/17/2022 10:16 AM EDT S: Patient spoke with [facility] nurse regarding pelvic/abdominal pain and would like to see Dr Sanchez re: this today B: Onset of symptoms/concern [facility] OV on 04/21/[address] Maya A: states insurance may not pay if 1 visit and has symptoms. NO COVID Symptoms R: Scheduled for Same Day appt today 04/17/22 @ 11:45a with Dr Sanchez @ [facility] office. Patient understands care advice. No further needs at this time. Patient instructed to call back with new or worsening symptoms. Reason for Disposition Patient wants to be seen Answer Assessment - Initial Assessment Questions . Protocols used: Pelvic Pain - Axarca-VSKPO-OI [id number] Miscellaneous Notes* Telephone Encounter - Duyen Olivai RN - 04/17/2022 10:16 AM EDT S: Patient spoke with [facility] nurse regarding pelvic/abdominal pain and would like to see Dr Sanchez re: this today B: Onset of symptoms/concern [facility] OV on 04/21/[address] Maya A: states insurance may not pay if 1 visit and has symptoms. NO COVID Symptoms R: Scheduled for Same Day appt today 04/17/22 @ 11:45a with Dr Sanchez @ [facility] office. Patient understands care advice. No further needs at this time. Patient instructed to call back with new or worsening symptoms. Reason for Disposition Patient wants to be seen Answer Assessment - Initial Assessment Questions . Protocols used: Pelvic Pain - Iuiyhf-DALFX-NM documented in this [facility]03-10-2023 Telephone encounter Note* Telephone Encounter - Isaiah Broussard RN - 04/14/2022 4:36 PM EST Reason for Disposition Health Information question, no triage required and triager able to answer question Protocols used: Information Only Call - No Yixuqm-UVAQP-MS S: Patient calls for info B: patient states needs a new patient appt, not happy with her current providers plan of care R: Patient appt made per triage protocol. Patient verbalizes understanding of same [id number] Miscellaneous Notes* Telephone Encounter - Isaiah Broussard RN - 04/14/2022 4:36 PM EST Reason for Disposition Health Information question, no triage required and triager able to answer question Protocols used: Information Only Call - No Hecntr-FGHPW-ZG S: Patient calls for info B: patient states needs a new patient appt, not happy with her current providers plan of care R: Patient appt made per triage protocol. Patient verbalizes understanding of same documented in this [facility]08-13-2021 Hospital Discharge instructions* Instructions* Teresa Andrade MD - 09/17/2020 Images from the original note were not included. After Your Delivery (the Period): Your Care Instructions Thank you for allowing us to care of you at [facility]. This time can be one of many [...] and safety. Follow-up with your OB providerin 4weeks or as specified by your OB provider. If you had high blood pressure, visit your OB provider within 3-5 days after being home. Most women's blood pressure will return to pre- levels after delivery. However, some patients continueto have problems with their blood pressure, and [...] over the next few weeks. Bleeding may turkey picker and then decrease again around 7-10 days [...] for section, or longer if you are onprescription pain medicine unless otherwise instructed by your [...] the first year after delivery. Contact your OBprovider if you feel you may be showing signs of depression, or have thoughts of harmingyourself or or anyone.. WOUND CARE For Vaginal Delivery: Shower daily, and cleanse your perineum (bottom) with mild soap from front to back. Use the plasticsquirt bottle until bleeding stops each time you [...] or develop a fever contact your OB provider.If your breasts become engorged ask your provider because treatment can vary according to your needs. DIET & CONSTIPATION Eat a well-balanced diet focusing on foods high in fiber and protein such as: whole grain cereals and breads, fruits and vegetables and legumes (eg, beans, lentils) Drink 8-10 glasses of fluids daily, especially water. Limit caffeine. To avoid constipation you may take a mild sotl-udx-ukrvckx stool softener (such as colace) as recommended [...] over the counter medicines unless recommended by yourprovider. Don't smoke. WHEN TO CALL THE OB [...] and can be isolated at home, you willbe monitored by staff from your local or [...] medical care. Do not go to work, school,or public areas. Avoid using public transportation, ride-sharing, [...] recommended that people sick with COVID-19 limit contactwith animals until more information is known about the virus. When possible, have another member ofyour household care for your animals while you [...] clean your hands with an alcohol-based hand industrial millwright that contains at least 60% alcohol. Clean your hands often Wash your hands often with soap and water for at least 20 seconds, especially after blowing your nose, coughing, or sneezing; going to the bathroom; and before eating or preparing food. If soap and water are not readily available, use an alcohol-based hand industrial millwright with at least 60% alcohol, covering all surfaces of your hands and rubbing them together until they feel dry. Soap and water are the best option if hands are visibly dirty. Avoid touching your eyes, nose, and mouth with unwashed hands. Avoid sharing personal household items You should not share dishes, drinking glasses, cups, eating utensils, towels, or bedding with otherpeople or pets in your home. After using [...] waiting room from getting infected or exposed. Askyour healthcare provider to call the local or [facility] health department. Persons who are placed underactive monitoring or facilitated self- monitoring should follow instructions provided by their localhealth department or occupational health professionals, as appropriate. [...] isolation precautions should be made on a hpai-gl-cxdx basis, in consultation with healthcare providers and [facility] departments. Information on COVID-19 for all patients [...] respiratory tract signs and symptoms. Ways to [place] with Anxiety & Stress It is normal to feel anxious or worried about COVID-19. You might feel sad about canceling celebrations and staying away from family and friends. Keep in mind that most people do not get severely ill from COVID-19. It is important to have a planin case you get sick to prevent spreading [...] your partner, family, and friends how you arefeeling. Advance Care Planning People with COVID-19 may [...] an illness that was first found in [facility], in January 2019. It has since spread [...] seen in people before. This virus spreads uedqps-ab-fdsvtv through droplets from coughing and sneezing. It can also spreadwhen you are close to someone who is [...] water aren't available, use an alcohol-based hand industrial millwright. Call 911 anytime you think you may [...] and studying this virus. Their websites contain themost up-to-date information. You'll also learn what to do if you think you may have been exposed tothe virus. U.S. Centers for Disease Control and Prevention (CDC): The CDC provides updated news about the disease and travel advice. The website also tells you how to prevent the spread of infection. www.cdc.gov World Health Organization (WHO): WHO offers information about the virus outbreaks. WHO also has travel advice. www.who.int Current as of: May 07, 2019 Content Version: 01.08 [employer]. Care instructions adapted under license by your healthcare professional. If you have questions about a medical condition or this instruction, always ask your healthcare professional. [employer] disclaims any warranty or liability for your use of this information. General Recommendations for Routine Cleaning and Disinfection of Households Community members can practice routine cleaning of frequently touched surfaces (for example: tables, doorknobs, light switches, handles, desks, toilets, faucets, sinks) with household watch adjuster and EPA-registered disinfectants that are appropriate for [...] and impurities from surfaces. Cleaning does not killgerms, but by removing them, it lowers their numbers and the risk of spreading infection. Disinfecting refers to using chemicals to kill germs on surfaces. This process does not necessarilyclean dirty surfaces or remove germs, but by [...] appropriate. These supplies include tissues, paper towels, watch adjuster and EPA-registered disinfectants (see list link at [...] be used for other purposes. Consult the ice puller's instructions for cleaning and disinfection products used. [...] used if appropriate for the surface. Follow ice puller's instructions for application and proper ventilation. Check to ensure the product is not past itsexpiration date. Never mix household bleach with ammonia or any other cleanser. Unexpired householdbleach will be effective against coronaviruses when properly diluted. - Prepare a bleach solution by mixing: - 5 tablespoons (1/3rd cup) bleach per gallon of water or - 4 teaspoons bleach per quart of water o Products with EPA-approved emerging viral pathogens foundations behavioral healthf iconexternal icon are expected to be effective against COVID-19 based on data for harder to kill viruses. Follow the ice puller's instructions for all cleaning and disinfection products (e.g., concentration, application method and contact time, etc.). Soft (porous) surfaces such as carpeted floor, rugs, and drapes Remove visible contamination if present and clean with appropriate watch adjuster indicated for use on these surfaces. After cleaning: Launder items as appropriate in accordance with the ice puller's instructions. If possible, launder items using the [...] for other household purposes. Clean hands immediately aftergloves are removed. o If no gloves are used when handling dirty laundry, be sure to wash hands afterwards. o If possible, do not shake dirty laundry. This will minimize the possibility of dispersing virus through the air. o Launder items as appropriate in accordance with the ice puller's instructions. If possible, launder items using the warmest appropriate water setting for the items and dry items completely. Dirtylaundry from an ill person can be washed with other people's items. o Clean and disinfect clothes hampers according to guidance above for surfaces. If possible, consider placing a cotton bag sewer that is either disposable (can be thrown away) or can be laundered. CDC has a list of EPA approved cleaning products on their website - https://www.cdc.gov/coronavirus/ 2019-ncov/community/home/cleaning-disinfection.html https://www.[employer].com/Qqywh-Akcuqnumfmg-Dknaxbxv-Products-List.pdf [employer] Stores with delivery and turkey picker services: [employer] [place]: Free turkey picker at locations Delivery is $12.95 a month Website - [employer] [place]: Stock Analyst $2.95 (1st order is free) Delivery is $14.95 Website - [employer] [place]: transmission superintendent is free Delivery is $5.95 [employer]: transmission superintendent is $4.95 Delivery is $9.95 Website [employer]: transmission superintendent is $4.95 Delivery is $9.95 Website [employer]: Can be ordered for delivery and turkey picker with [employer] Website - [employer]: Free deliver for first 3 orders of $35 or more Website [employer] Will deliver from [employer], [employer], [employer], and [employer]. Annual membership is $99 Monthly membership is $14 documented in this [facility] Work Phone: 1(988) 850-802708-13-2021 NoteDepartment of Obstetrics and Gynecology Delivery Discharge Summary Admission on 09/14/2020 11:47 AM Reason for admission: LT IOL Intrapartum Course: Induced with cytotec, FB, pitocin. Labor course normal. 41w4d PC-01 Indications for Delivery: Was patient delivered between 37w0d - 35i0bikizm? NO Surgical Operations & Procedures: Date of delivery: 09/15/20 Delivery Type: spontaneous vaginal Anesthesia: Epidural anesthesia Laceration(s): 1st degree and periurethral Delivery Complications: none EBL: 200 cc Pertinent Findings & Procedures: Information for the patient's : Bharathi Carty May [[id number]] male Weight: 8 lb 10.8 oz (3.935 kg) Apgars: Information for the patient's : Bharathi Carty May [[id number]] One Minute : 7 Five Minute : 8 Course: Uncomplicated : Male , circumcision completed Blood Type/Rh: O POS Antibody Screen: Antibody Screen Date Value Ref Range Status 09/14/2020 NEG NA Final Rubella: Lab Results Component Value Date RUBELLAIGG 3.8 02/27/2020 Contraception: no method : yes VTE Prophylaxis: Not Indicated Meds: Dulce Maria Carty Home Medication Instructions YVES:[id number] Printed on:09/17/20 0759 Medication Information ibuprofen (ADVIL;MOTRIN) [...] Teresa Andrade MD on 09/17/2020 at 7:59 [facility]08-13-2021 Hospital course Narrative* Teresa Andrade MD - 09/17/2020 7:59 AM EDT Images from the original note were not included. Department of Obstetrics and Gynecology Delivery Discharge Summary Admission on 09/14/2020 11:47 AM Reason for admission: LT IOL Intrapartum Course: Induced with cytotec, FB, pitocin. Labor course normal. 41w4d PC-01 Indications for Delivery: Was patient delivered between 37w0d - 87u8jyctsn? NO Surgical Operations & Procedures: Date of delivery: 09/15/20 Delivery Type: spontaneous vaginal Anesthesia: Epidural anesthesia Laceration(s): 1st degree and periurethral Delivery Complications: none EBL: 200 cc Pertinent Findings & Procedures: Information for the patient's : Bharathi Carty May [[id number]] male Weight: 8 lb 10.8 oz (3.935 kg) Apgars: Information for the patient's : Bharathi Carty May [[id number]] One Minute : 7 Five Minute : 8 Course: Uncomplicated Infant: Male , circumcision completed Blood Type/Rh: O POS Antibody Screen: Antibody Screen Date Value Ref Range Status 09/14/2020 NEG NA Final Rubella: Lab Results Component Value Date RUBELLAIGG 3.8 02/27/2020 Contraception: no method : yes VTE Prophylaxis: Not Indicated Meds: Machelle, May Home Medication Instructions YVES:[id number] Printed on:09/17/20 0759 Medication Information ibuprofen (ADVIL;MOTRIN) [...] 09/17/2020 at 7:59 AM documented in this [facility] Work Phone: 1(621) 506-154108-13-2021 History of Present illness Narrative* Teresa Andrade MD - 09/17/2020 6:01 AM EDT Images from the original note were not included. POST DAY # 2 May Machelle, 24 y.o. This patient was seen [...] APLS Assessment/Plan: May Machelle is PPD # 2 s/p 1. Care [...] if she so chooses. Provider's Name: MD MARIE Mitchell DO 09/17/2020, 6:01 AM I reviewed and agree with the care provided by the resident/CNM during the visit including the patient's medical history, the resident's findings in the physical exam, patient's diagnosis and treatment plan. * Arminda Posey - 09/16/2020 12:35 PM EDT Nutrition rescreen completed. Patient assigned a level 1. CARTER Parson * Valeria Maya MD - 09/16/2020 5:25 AM EDT Images from the original note were not included. POST DAY # 1 May Machelle, 24 y.o. This patient was seen [...] Assessment/Plan: Dulce Maria Carty is PPD # 1 s/p 1. Care - Doing well, VSS - Male - Breast feeding - Contraception: Per Private [...] if she so chooses. Provider's Name: MD ANNE Mitchell DO 09/16/2020, 5:25 AM I reviewed and agree with the care provided by the resident during or immediately following the visit including the patient's medical history, the resident's findings in the physical exam, patient's diagnosis and treatment plan. * Anne Kincaid DO - 09/14/2020 3:22 PM EDT Images from the original note were not included. Labor Progress Note Date: 09/14/2020 Time: 3:22 PM Subjective: May Machelle is a 24 y.o. female at 41w3d [...] albuterol use - no hospitalizations or intubations Cx: FHP: defer FHT: cat I [place]:rare A/P: 1. IOL-LT: Cytotec and 60ccFB placed at this time. Pt tolerated the procedure well. FHT cat I with moderate variability and spont accels. BP normotensive. Cx: defer FHP: defer FHT: cat I [place]:irritability A/P: 1. IOL-LT: 60ccFB in place. FHT cat I with moderate variability and spont accels. SROM @1800, light meconium. BP normotensive. Agree with above medical student note. Contractions q 2 min. Will start low dose pitocin when able.CCM. Cytotec time up. Contractions not tracing well. Will start low dose pitocin when able. FHT cat I. BP's normotensive to mild range. CCM. Cx:defer FHP: defer FHT: Cat II [place]:irritable, q5min A/P: 1. IOL-LT FHR Cat II with a baseline of 130's, moderate variability, accelerations present, and intermittent late and rare variable decelerations present. Periods of minimal variability. Reassuring at this time with spontaneous accelerations and overall moderate variability. Pitocin to be started when cat I.BP's mild range. CCM Cx: Defer FHP: defer FHT: Cat II [place]:irritable q3-4min A/P: 1. IOL-LT FHR Cat II with a baseline of 140s 's, overall moderate variability, accelerations present, and rare variable decelerations present. Short periods of minimal variability, reassuring with spontaneous accelerations and overall moderate variability. FB remains in place. BP's normotensive. CCM Smyth bulb in for 12 hours. Palpated behind head. Removed, now 3-80/-2. Pit at 2cc/hr, continue to titrate per protocol. FHT cat I. Contractions q 2 min. BP's normotensive. CCM. Cx: 4/90/-2 FHP: defer FHT: cat I [place]: q 2-3 min A/P: 1. IOL-LT. Pit at 4cc/hr, continue to titrate per protocol. Patient uncomfortable but coping well through contractions and considering getting in the tub. BP's normotensive. CCM. Mild range BP at this time, 4 hours apart. Now meets criteria for gHTN. Will send CMP. Patient getting epidural. Cx:6/80/-2 FHP: defer FHT: Cat II [place]:q3min; irritability A/P: 1. IOL-LT FHR Cat II with a baseline of 120 's, moderate variability, accelerations present, and likely intermittent late decelerations present. Overall reassuring with moderate variability and spontaneous accelerations, reliably predicting no acidemia at this time. Cervical exam by Dr. Amor at this time and called 6/80/-2. 0 Pitocin at 4cc/hr. Patient feeling lightheaded, nasueous and dizzy in thesupine position. BP's normotensive since last note time. Contractions difficult to trace, will reposition and if still experiencing tracing difficulty will place an IUPC. CCM Cx:7/-2 FHP: defer FHT: Cat I [place]: q1-2min A/P: 1. IOL-LT: Baseline of 135, [...] Dr. Maya aware. [facility]CM. [facility]* Diagnosis Acquired hypothyroidism Unspecified hypothyroidism 24 weeks gestation of state, incidental documented in this encounter [facility] Work Phone: Evaluation note* Diagnosis Heart palpitations Palpitations Rubella non-immune status, antepartum Other specified complication, antepartum care, antepartum Hypothyroid in , antepartum Thyroid dysfunction, antepartum Indication for care in labor or delivery Unspecified indication for care or intervention related to labor and delivery, unspecified as to episode of care documented in this encounter [facility] Work Phone: Evaluation note* Diagnosis LLQ pain- Primary Abdominal pain, left lower quadrant Abdominal bloating Flatulence, eructation, and gas pain Change in bowel habit [facility] Diagnosis Chronic kidney disease, stage 2 (mild)- Primary [facility] Diagnosis Proteinuria, unspecified- Primary [facility]* Diagnosis 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 Palpitations documented [facility]* Diagnosis [place]- Primary documented in this encounter [facility] note* Diagnosis Upper abdominal pain, unspecified- Primary documented in this encounter [facility] note* Diagnosis 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 Palpitations documented in this encounter [facility] note* Diagnosis Neutropenia, unspecified (CMS/HCC) (HCC)- Primary Neutropenia, unspecified Upper abdominal pain, unspecified documented in this encounter [facility] note* Diagnosis Neutropenia, unspecified type (HCC)- Primary Lower abdominal pain Abdominal pain, other specified site Dizziness Dizziness and giddiness documented in this encounter [facility] note* Diagnosis Neutropenia, unspecified type (HCC) Lower abdominal pain Abdominal pain, other specified site Dizziness Dizziness and giddiness documented in this encounter [facility] note* Diagnosis Neutropenia, unspecified type (HCC)- Primary documented in this encounter [facility] note* Diagnosis Proteinuria, unspecified- Primary documented in this encounter [facility] note* Diagnosis Neutropenia, unspecified (CMS/HCC) (HCC)- Primary Neutropenia, unspecified Proteinuria, unspecified documented in this encounter [facility] note* Diagnosis Bacteriuria- Primary Other nonspecific finding on examination of urine documented in this encounter [facility] note* Diagnosis Visual changes- Primary Chronic primary headache documented in this encounter [facility] note* Diagnosis Visual changes Chronic primary headache documented in this encounter [facility] note* Diagnosis Neutropenia, unspecified (CMS/HCC) (HCC)- Primary Neutropenia, unspecified documented in this encounter [facility] note* Diagnosis NURA (stress urinary incontinence, female)- Primary Bladder pain Other symptoms involving urinary system Feeling of incomplete bladder emptying POP-Q stage 1 rectocele Dyspareunia in female Endometriosis Endometriosis, site unspecified Adenomyosis Endometriosis of uterus Dysuria documented in this encounter [facility] note* Diagnosis Urge incontinence- Primary documented in this encounter [facility] note* Diagnosis Chronic kidney disease, stage 2 (mild)- Primary documented in this encounter [facility] note* Diagnosis 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 Palpitations Shortness of breath 9 weeks gestation of [facility]* Diagnosis Onset Date Resolution Status Female climacteric state acu te Leukocytopenia acute Pelvic pain acute Protein in urine acute Hypothyroidism affecting acute Leukocytopenia acute acute Protein in urine acute Supervision of high-risk acute [facility] Work Phone: evaluation note* Diagnosis Onset Date Resolution Status Hypothyroidism affecting acute Leukocytopenia acute acute Protein in urine acute Supervision of high-risk acute History of kidney disease ac [place] Hypothyroidism affecting acute Infertility associated with anovulation acute Leukocytopenia acute Pelvic pain acute acute Protein in urine acute Supervision of high-risk acute Heart palpitations acute History of kidney disease ac [place] Hypothyroidism affecting acute Leukocytopenia acute acute Protein in urine acute Supervision of high-risk acute Heart palpitations acute History of kidney disease ac [place] Hypothyroidism affecting acute Infertility associated with anovulation acute Leukocytopenia acute Pelvic pain acute acute Protein in urine acute Supervision of high-risk acute [facility] Work Phone: Evaluation note* Diagnosis Chronic kidney disease, stage 1- Primary [facility] Diagnosis Upper abdominal pain, unspecified [facility]* Diagnosis Low back pain, unspecified- Primary Low back pain, unspecified [facility]* Diagnosis Persistent proteinuria, unspecified- Primary Persistent proteinuria, unspecified [facility]* Diagnosis Lower abdominal pain, unspecified- Primary Pelvic and perineal pain [facility]* Diagnosis Shortness of breath [facility]* Diagnosis Well woman exam with routine gynecological exam- Primary Routine gynecological examination Hot flashes [facility]* Diagnosis Chronic kidney disease, stage 2 (mild)- Primary Anemia, unspecified [facility]* Diagnosis Chronic kidney disease, stage 2 (mild)- Primary Persistent proteinuria, unspecified Lower abdominal pain, unspecified [facility]* Diagnosis Chronic kidney disease, stage 1- Primary [facility]* Diagnosis Migraine without aura and without status migrainosus, not intractable- Primary Chronic daily headache Headache documented in this encounter [facility] note* Diagnosis Irritable bowel syndrome, unspecified- Primary Melena Blood in stool documented in this [facility] note* Diagnosis Unspecified injury of head, initial encounter documented in this encounter [facility] note* Diagnosis MEET WITH PHYSICIAN- Primary documented in this encounter [facility] note* Diagnosis Unspecified injury of head, initial encounter- Primary Unspecified injury of head, initial encounter documented [facility] this encounter [facility] noteNo assessment information availableCalifornia [facility] Work Phone: [facility] note* Diagnosis Other ovarian dysfunction- Primary [place] Syncope and collapse Genetic susceptibility to other disease Amenorrhea, unspecified Personal history of other specified conditions Palpitations Family history of other endocrine, nutritional and metabolic diseases documented in this encounter [facility] note* Diagnosis Other ovarian dysfunction- Primary [place] Syncope and collapse Genetic susceptibility to other disease Amenorrhea, unspecified Personal history of other specified conditions Palpitations Family history of other endocrine, nutritional and metabolic diseases documented in this encounter [facility] note* Diagnosis Hyperprolactinemia (HCC)- Primary Other and unspecified anterior pituitary hyperfunction documented in this encounter [facility] note* Diagnosis LLQ pain- Primary Abdominal pain, left lower quadrant Bloating Flatulence, eructation, and gas pain Belching Flatulence, eructation, and gas pain documented in this encounter [facility] note* Diagnosis Tachycardia- Primary Unspecified tachycardia Near syncope documented in this encounter [facility] note* Diagnosis Dizziness- Primary Dizziness and giddiness Seroma of breast documented in this encounter [facility] note* Diagnosis Tremulousness- Primary Tremulousness Malaise Other malaise and fatigue Malaise Other malaise and fatigue documented in this encounter [facility] note* Diagnosis Syncope and collapse- Primary Lightheadedness Dizziness and giddiness Palpitations Near syncope Syncope and collapse Epigastric pain Abdominal pain, epigastric Lightheadedness Dizziness and giddiness Pressure in head Headache Near syncope Syncope and collapse Bloating- Primary Flatulence, eructation, and gas pain Belching Flatulence, eructation, and gas pain documented in this encounter [facility] note* Diagnosis Cervicalgia Strain of other muscles, fascia and tendons at shoulder and upper arm level, unspecified arm, initial encounter documented in this encounter [facility] note* Diagnosis Cervicalgia- Primary documented in this encounter [facility] note* Diagnosis Chest pain, unspecified type- Primary documented in this encounter [facility] note* Diagnosis Palpitations- Primary documented in this encounter [facility] note* Diagnosis Migraine without aura and without status migrainosus, not intractable- Primary Chronic daily headache Headache Muscle spasm Spasm of muscle Dizziness Dizziness and giddiness documented in this encounter [facility] note* Diagnosis Chest pain- Primary Unspecified chest pain Chest pain, unspecified type Tachycardia Unspecified tachycardia Palpitations Tachycardia Unspecified tachycardia documented in this encounter [facility] note* Diagnosis Palpitations- Primary Anxiety Anxiety state, unspecified Paresthesia Disturbance of skin sensation Pre-syncope Syncope and collapse documented in this encounter [facility] note* Diagnosis Muscle spasm Spasm of muscle documented in this encounter [facility] note* Diagnosis Anterior neck pain Cervicalgia documented in this encounter [facility] note* Diagnosis Dizziness- Primary Dizziness and giddiness documented in this encounter [facility] note* Diagnosis 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 Tachycardia Unspecified tachycardia Palpitations Dizziness Dizziness and giddiness documented in this encounter [facility] note* Diagnosis Palpitations- Primary Suprapubic pain Abdominal pain, other specified site documented in this encounter [facility] note* Diagnosis Epigastric pain- Primary Abdominal pain, epigastric documented in this encounter [facility] note* Diagnosis Dysautonomia orthostatic hypotension syndrome Other degenerative diseases of the basal ganglia documented in this encounter [facility] note* Diagnosis Dysautonomia (HCC)- Primary Unspecified disorder of autonomic nervous system Dysautonomia orthostatic hypotension syndrome Other degenerative diseases of the basal ganglia Autonomic dysfunction documented in this encounter [facility] note* Diagnosis Gastroesophageal reflux disease without esophagitis- Primary Esophageal reflux documented in this encounter [facility] note* Diagnosis Chronic abdominal pain- Primary Abdominal pain, unspecified site Epigastric pain Abdominal pain, epigastric Anorexia Nausea Nausea alone Dehydration Diarrhea, unspecified type Hx of gastroesophageal reflux (GERD) History of IBS documented in this encounter [facility] note* Diagnosis Neuropathy- Primary Mononeuritis of unspecified site Myofascial pain Unspecified myalgia and myositis documented in this encounter [facility] note* Diagnosis Interstitial cystitis- Primary Chronic interstitial cystitis Pelvic pain Feeling of incomplete bladder emptying [facility] Attachments The following attachments cannot be sent through Care Everywhere. * [facility] Attachments The following attachments cannot be sent through Care Everywhere. * Abdominal Pain, Adult ED ([place]) documented in this [facility] hospital for referral (narrative)* Consultation (Routine) - Pending Review Specialty Diagnoses / Procedures Referred By Joy irwin Referred To Contact Gastroenterology Diagnoses LLQ pain Abdominal bloating Change in bowel habit Procedures [place] OFFICE[place]OUTPATIENT [facility] MDM 60-74 MINUTES Brittany Sanchez MD [address] [address] [facility] Gastro [address] [place] [address] Referral ID Status Reason Start Date Expiration Date Visits Requested Visits Authorized [id number] Pending Review Specialty Services Required 04/17/2022 04/17/2023 1 1 [facility] for referral (narrative)* Consultation (Routine) - Pending Review Specialty Diagnoses / Procedures Referred By Jyo irwin Referred To Contact Physical Therapy Diagnoses Bladder pain NURA (stress urinary incontinence, female) Feeling of incomplete bladder emptying Dyspareunia in female Procedures [place] OFFICE[facility]OUTPAT[place] [facility] MDM 60-74 MINUTES Claire Lewis, [address] [place] [address] [facility] [address] [place] [address] Referral ID Status Reason Start Date Expiration Date Visits Requested Visits Authorized [id number] Pending Review Specialty Services Required 3 11/22/2023 99 99 * Consultation (Routine) - Pending Review Specialty Diagnoses / Procedures Referred By Contac t Referred To Contact Obstetrics and Gynecology Diagnoses Bladder pain Dyspareunia in female Endometriosis Adenomyosis Procedures [place] OFFICE/OUTPATIENT [facility] 60-74 MINUTES Claire Lewis DO [address] [place] [address] Ioana Ramirez MD [address] [place] [address] Referral ID Status Reason Start Date Expiration Date Visits Requested Visits Authorized [id number] Pending Review Specialty Services Required 11/21/2023 1 1 [facility] Consultation (Routine) - Closed Specialty Diagnoses / Procedures Referred By Contac t Referred To Contact Urogynecology Diagnoses Urge incontinence Procedures [place] OFFICE/OUTPATIENT [facility] 60-74 MINUTES Zachariah Rome DO [address] [place] [address] Claire Lewis DO [address] [place] [address] Referral ID Status Reason Start Date Expiration Date V isits Requested Visits Authorized [id number] Closed Specialty Services Required 09/04/2022 09/04/2023 1 1 [facility]No reason for referral information availableIndependence Medical Services Work Phone: reason for visit Narrative* Imaging (Emergency) - Closed Specialty Diagnoses / Procedures Referred By Contac t Referred To Contact Radiology Diagnoses Unspecified injury of head, initial encounter Procedures CT head wo IV contrast Zoe Pichardo, WILLARD - BUILD AND DEPLOYMENT ENGINEER [address] [place] [address] Phone: tel: fax: Referral ID Status Reason Start Date Expiration Date Visits Re quested Visits Authorized [id number] Closed 04/30/2024 04/30/2025 1 1 [facility] for visit Narrative* MRI/CT (Routine) - Closed Specialty Diagnoses / Procedures Referred By Joy irwin Referred To Contact Radiology / [facility] Diagnoses Hyperprolactinemia (HCC) mri pituitary wwo iv con e22.1 order afxed Procedures MRI BRAIN BRAIN STEM W/O W/CONTRAST MATERIAL MRI WWO NEU1 B 300 Sherif Lopes, PATIENT TRANSITION SPECIALIST [address] [place] [address] Phone: tel: fax: Radiology [facility] [place] [address] Phone: tel: Referral ID Status Reason Start Date Expiration Date Visits Re quested Visits Authorized [id number] Closed 08/14/2024 09/13/2024 1 1 [facility] for visit Narrative* Therapy (Routine) - Authorized Specialty Diagnoses / Procedures Referred By Joy irwin Referred To Contact Physical Therapy Diagnoses Cervicalgia Strain of other muscles, fascia and tendons at shoulder and upper arm level, unspecified arm, subsequent encounter Procedures [place] OFFICE[place]PAT[place] [facility] [address] [place] [address] Phone: tel: fax: [facility] Therapy at [address] [place] [address] Phone: tel: fax: Referral ID Status Reason Start Date Expiration Date Visits Requested Visits Authorized [id number] Authorized Eval and Treat 10/07/2024 10/02/2025 8 8 [facility] for visit Narrative* Hospital - Outpatient (Routine) - Closed Specialty Diagnoses / Procedures Referred By Joy irwin Referred To Contact Neurology Diagnoses Muscle spasm Procedures Nerve conduction test with EMG Teresa Ohara, DIAGNOSTIC IMAGING MANAGER - BUILD AND DEPLOYMENT ENGINEER [address] [place] [address] Phone: tel: fax: Referral ID Status Reason Start Date Expiration Date Visits Re quested Visits Authorized [id number] Closed 10/23/2024 10/18/2025 1 1 [facility] for visit Narrative* Cardiology (Routine) - Closed Specialty Diagnoses / Procedures Referred By Contac t Referred To Contact Cardiology Diagnoses Dysautonomia orthostatic hypotension syndrome Procedures Tilt table Solange Corcoran MD [address] [facility] [address] [place] [address] Phone: tel: fax: Referral ID Status Reason Start Date Expiration Date Visits Re quested Visits Authorized Closed 11/11/2024 11/06/2025 1 1 [facility] Summary Purpose Family History No Family History Records Found Relationship Condition Age at Onset Recorded Date/T sathish grandmother Malignant neoplasm of colon Unknown Diabetes mellitus Unknown mother Diabetes mellitus Unknown Malignant neoplasm of pancreas Unknown Advance Directives No Advanced Directives Records FoundDocuments on File Type Date Recorded Patient Carbider Expl anation Advance Directives and Living Will Power of Block Mechanic Documents on File Type Date Recorded Patient Carbider Expl anation ACP-Advance Directive ACP-Power of Block Mechanic Latest Code Status on File Code Status Date Activated Date Inactivated Comments Full Code 09/15/2020 5:50 PM Full Code 09/14/2020 12:28 PM 09/15/2020 5:50 PM Latest Code Status on File Code Status Date Activated Date Inactivated Comments Full Code 09/15/2020 5:50 PM 09/17/2020 8:49 PM Advance Directive Response Recorded Date/ Time Do you have a Healthcare Power of Block Mechanic? No August 14, 2024 12:12pm Date Activated Date Inactivated Comments 10/09/2024 3:54 PM 10/11/2024 4:42 PM Question Answer Comments Full Code Order Discussed With: Patient Date Activated Date Inactivated Comments 10/28/2024 4:19 PM Date Activated Date Inactivated Comments 10/28/2024 4:19 PM Date Activated Date Inactivated Comments 10/28/2024 4:19 PM 10/29/2024 8:15 PM Date Activated Date Inactivated Comments 10/28/2024 4:19 PM 10/29/2024 8:15 PM Date Activated Date Inactivated Comments 12/03/2024 6:19 AM 12/03/2024 7:35 PM Date Activated Date Inactivated Comments 10/28/2024 4:19 PM 10/29/2024 8:15 PM Date Activated Date Inactivated Comments 12/03/2024 6:19 AM 12/03/2024 7:35 PM Date Activated Date Inactivated Comments 10/28/2024 4:19 PM 10/29/2024 8:15 PM Discharge Instructions * Instructions* Leonides Peterson MD - 05/10/2019 Exercise aggressively, vigorously, and often * Attachments The following attachments cannot be sent through Care Everywhere. * Panic Attacks ([place]) documented in this encounter Assessments Diagnosis Panic attack due to exceptional stress Predominant disturbance of emotions Diagnosis care, antepartum Reason for Referral Specialty Diagnoses / Procedures Referred By Contac t Referred To Contact Radiology Diagnoses Neutropenia, unspecified type (HCC) Lower abdominal pain Dizziness Procedures CT abdomen pelvis wo IV contrast Cathy Watson, DO [address] [facility] [address] [place] [address] Referral ID Status Reason Start Date Expiration Date V isits Requested Visits Authorized [id number] Pending Review 08/02/2022 01/29/2023 1 1 Referral ID Status Reason Start Date Expiration Date Visits Re quested Visits Authorized [id number] Closed 08/02/2022 01/29/2023 1 1 Specialty Diagnoses / Procedures Referred By Contac t Referred To Contact Radiology Diagnoses Visual changes Chronic primary headache Procedures MR brain wo contrast Anabella Hurtado, DO [address] [place] [address] Referral ID Status Reason Start Date Expiration Date V isits Requested Visits Authorized [id number] Pending Review 09/08/2022 03/07/2023 1 1 Referral ID Status Reason Start Date Expiration Date Visits Re quested Visits Authorized [id number] Closed 09/08/2022 03/07/2023 1 1 Specialty Diagnoses / Procedures Referred By Contac t Referred To Contact Cardiology Diagnoses Shortness of breath Procedures Transthoracic echocardiogram (TTE) complete with contrast, bubble, strain, and 3D PRN [place] ECHO TTHRC R-T 2D W/WOM-MODE COMPL SPEC&COLR D [place] TTE W OR WO FOL WCON,DOPPLER Bhargavi Price MD [address] [place] [address] Referral ID Status Reason Start Date Expiration Date Visits Requested Visits Authorized [id number] Pending Review Perform Procedure 04/20/2022 10/17/2022 1 1 Specialty Diagnoses / Procedures Referred By Contac t Referred To Contact Cardiology Diagnoses Chronic kidney disease, stage 2 (mild) Persistent proteinuria, unspecified Lower abdominal pain, unspecified Procedures Vascular US renal artery duplex complete Pat Flood, DIAGNOSTIC IMAGING MANAGER [address] [place] [address] Referral ID Status Reason Start Date Expiration Date Visits Requested Visits Authorized [id number] Pending Review Perform Procedure 2 07/23/2022 1 1 Chief Complaint and Reason for Visit Chief Complaint fertility questions LMP 12/15 Reason for Visit Female climacteric s santos Leukocytopenia Pelvic pain Protein in urine Hypothyroidism affecting Leukocytopenia Protein in urine Supervision of high-risk Chief Complaint LMP 12/15 12 WK OB 17 WK OB 21 wk ob Reason for Visit Hypothyroidism affec ting Leukocytopenia Protein in urine Supervision of high-risk History of kidney disease Hypothyroidism affecting Infertility associated with anovulation Leukocytopenia Pelvic pain Protein in urine Supervision of high-risk Heart palpitations History of kidney disease Hypothyroidism affecting Leukocytopenia Protein in urine Supervision of high-risk Heart palpitations History of kidney disease Hypothyroidism affecting Infertility associated with anovulation Leukocytopenia Pelvic pain Protein in urine Supervision of high-risk Chief Complaint Admit Date discuss lumpectomy August 05, 2024 8:12a m Chief Complaint Admit Date discuss lumpectomy August 05, 2024 8:12a m Breast, Lumpectomy w/ultrasound August 10:05am Breast, Lumpectomy w/ultrasound August 11:46am Reason for Visit Admit Date Left breast lump August 05, 2024 8:12a m Left breast lump August 19, 2024 10:0 5am Chief Complaint Admit Date discuss lumpectomy August 05, 2024 8:12a m Breast, Lumpectomy w/ultrasound August 10:05am Breast, Lumpectomy w/ultrasound August 11:46am Lumpectomy 08/19August 27, 2024 1:36 pm Chief Complaint Admit Date discuss lumpectomy August 05, 2024 8:12a m Breast, Lumpectomy w/ultrasound August 10:05am Breast, Lumpectomy w/ultrasound August 11:46am Lumpectomy 08/19August 27, 2024 1:36 pm LEFT BREAST PAIN September 16, 2024 1: 25pm BREAST I&D September 17, 2024 8: 21am Reason for Visit Admit Date Left breast lump August 05, 2024 8:12a m Left breast lump August 19, 2024 10:0 5am Left breast lump August 27, 2024 1:36 pm Left breast lump September 17, 2024 8: 21am Chief Complaint Admit Date discuss lumpectomy August 05, 2024 8:12a m Breast, Lumpectomy w/ultrasound August 10:05am Breast, Lumpectomy w/ultrasound August 11:46am Lumpectomy 08/19August 27, 2024 1:36 pm LEFT BREAST PAIN September 16, 2024 1: 25pm BREAST I&D September 17, 2024 8: 21am S[facility]P [facility] /October 15, 2024 8:54am Reason for Visit Admit Date Left breast lump August 05, 2024 8:12a m Left breast lump August 19, 2024 10:0 5am Left breast lump August 27, 2024 1:36 pm Left breast lump September 17, 2024 8: 21am Heart palpitations October 15, 2024 8:54am Chief Complaint Admit Date discuss lumpectomy August 05, 2024 8:12a m Breast, Lumpectomy w/ultrasound August 10:05am Breast, Lumpectomy w/ultrasound August 11:46am Lumpectomy 08/19August 27, 2024 1:36 pm LEFT BREAST PAIN September 16, 2024 1: 25pm BREAST I&D September 17, 2024 8: 21am [facility] 10/11October 15, 2024 8:54am POSSIBLE INFECTED LUMPECTOMY SITE Septem 2024 12:49pm Reason for Visit Admit Date Left breast lump August 05, 2024 8:12a m Left breast lump August 19, 2024 10:0 5am Left breast lump August 27, 2024 1:36 pm Left breast lump September 17, 2024 8: 21am Heart palpitations October 15, 2024 8:54am Near syncope October 15, 2024 8:54am Chief Complaint Admit Date discuss lumpectomy August 05, 2024 8:12a m Breast, Lumpectomy w/ultrasound August 10:05am Breast, Lumpectomy w/ultrasound August 11:46am Lumpectomy 08/19August 27, 2024 1:36 pm LEFT BREAST PAIN September 16, 2024 1: 25pm BREAST I&D September 17, 2024 8: 21am S/[facility] 10/11October 15, 2024 8:54am POSSIBLE INFECTED LUMPECTOMY SITE Sept 2024 12:49pm S/P [facility] 10/26October 27, 2024 1:35pm PALPITATIONS October 31, 2024 9:43am Reason for Visit Admit Date Left breast lump August 05, 2024 8:12a m Left breast lump August 19, 2024 10:0 5am Left breast lump August 27, 2024 1:36 pm Left breast lump September 17, 2024 8: 21am Heart palpitations October 15, 2024 8:54am Near syncope October 15, 2024 8:54am Abnormal ultrasound of breast October 20, 2024 12:49pm Heart palpitations October 27, 2024 1:35pm SOB (shortness of breath) October 1:35pm Chief Complaint Admit Date discuss lumpectomy August 05, 2024 8:12a m Breast, Lumpectomy w/ultrasound August 10:05am Breast, Lumpectomy w/ultrasound August 11:46am Lumpectomy 08/19August 27, 2024 1:36 pm LEFT BREAST PAIN September 16, 2024 1: 25pm BREAST I&D September 17, 2024 8: 21am S[facility] 10/11October 15, 2024 8:54am POSSIBLE INFECTED LUMPECTOMY SITE Septem 2024 12:49pm S/P [facility] 10/26October 27, 2024 1:35pm PALPITATIONS October 31, 2024 9:43am PELVIC PAIN November 06, 2024 12 :42pm US F/U November 10, 2024 1: 59pm Reason for Visit Admit Date Left breast lump August 05, 2024 8:12a m Left breast lump August 19, 2024 10:0 5am Left breast lump August 27, 2024 1:36 pm Left breast lump September 17, 2024 8: 21am Heart palpitations October 15, 2024 8:54am Near syncope October 15, 2024 8:54am Abnormal ultrasound of breast October 20, 2024 12:49pm Heart palpitations October 27, 2024 1:35pm SOB (shortness of breath) October 1:35pm Amenorrhea November 10, 2024 1: 59pm Epigastric abdominal pain November 10 1:59pm Pelvic pain November 10, 2024 1: 59pm Additional Source Comments INFORMATION SOURCE (unrecogn ized section and content) DATE CREATED AUTHOR 08/01/2017 [facility] DATE CREATED AUTHOR AUTHOR'S ORGANIZ ATION 11/23/2017 [facility] ([place]) DATE CREATED AUTHOR AUTHOR'S ORGANIZ ATION 09/27/2020 [facility] DATE CREATED AUTHOR AUTHOR'S ORGANIZ ATION 06/24/2021 [facility] DATE CREATED AUTHOR AUTHOR'S ORGANIZ ATION 09/02/2024 [facility] DATE CREATED AUTHOR AUTHOR'S ORGANIZ ATION 10/11/2024 [facility] DATE CREATED AUTHOR AUTHOR'S ORGANIZ ATION 12/06/2024 [facility] DATE CREATED AUTHOR AUTHOR'S ORGANIZ ATION 12/16/2024 [facility] DATE CREATED AUTHOR AUTHOR'S ORGANIZ ATION 12/18/2024 [facility] DATE CREATED AUTHOR AUTHOR'S ORGANIZ ATION 12/18/2024 [facility] Reason for Visit (unrecogniz ed section and content) Reason Comments Chest Pain Reason Comments Scheduled Induction Reason Onset Date Comments Pelvic Pain 04/17/2022 Reason Comments Follow-up Pelvic pain Reason Comments Dizziness Postural dizziness w ith variable heartrates Palpitations PVC,PAC Reason Comments Consult Specialty Diagnoses / Procedures Referred By Contac t Referred To Contact Radiology Diagnoses Neutropenia, unspecified type (HCC) Lower abdominal pain Dizziness Procedures CT abdomen pelvis wo IV contrast Cathy Watson, DO [address] [place] [address] Referral ID Status Reason Start Date Expiration Date Visits Re quested Visits Authorized [id number] Closed 08/02/2022 01/29/2023 1 1 Reason Comments Neutropenia Reason Comments Establish Care Patient having many issues. Abnormal labs. Specialty Diagnoses / Procedures Referred By Contac t Referred To Contact Radiology Diagnoses Visual changes Chronic primary headache Procedures MR brain wo contrast Anabella Hurtado, DO [address] [place] [address] Referral ID Status Reason Start Date Expiration Date Visits Re quested Visits Authorized [id number] Closed 09/08/2022 03/07/2023 1 1 Reason Comments New Patient Urgency, frequency, dysuria, protein in urine. Having UTI symptoms. All dips were neg. Not emptying completely. Jumping causes leaking and sneezing. Frequently urge to make bowel movement started with Uti symptoms. Specialty Diagnoses / Procedures Referred By Contac t Referred To Contact Urogynecology Diagnoses Urge incontinence Procedures [place] OFFICE/OUTPATIENT NEW HIGH MDM 60-74 MINUTES Zachariah Rome, DO [address] [place] [address] Claire Lewis, DO [address] [facility] [address] [place] [address] Referral ID Status Reason Start Date Expiration Date V isits Requested Visits Authorized [id number] Closed Specialty Services Required 09/04/2022 09/04/2023 1 1 Reason Comments Dizziness Orthostatic Hypotens ion Palpitations PVC,PAC Other 9 weeks Reason Onset Date Comments Scheduling 05/22/2023 Reason Onset Date Comments Advice Only 06/12/2023 Reason Comments Annual Exam Dizziness Reason Comments Annual Exam Annual exam Reason Onset Date Comments other 04/24/2022 Reason Comments Follow-up Headaches Specialty Diagnoses / Procedures Referred By Contac t Referred To Contact Neurology Diagnoses New daily persistent headache (ndph) Procedures [place] OFFICE/OUTPATIENT NEW MODERATE MDM 45 MINUTES Zachariah Rome, DO [address] [place] [address] Phone: tel: fax: Boston Cortez MD [address] [place] [id number] Phone: tel: fax: Referral ID Status Reason Start Date Expiration Date Visits Re quested Visits Authorized [id number] Closed 04/14/2024 04/14/2025 1 1 Reason Comments Radiology MRI Specialty Diagnoses / Procedures Referred By Contac t Referred To Contact RADIOLOGY Diagnoses Hyperprolactinemia (HCC) Pituitary WO/W IVCON MRI order faxed [email or web address] Procedures MRI BRAIN BRAIN STEM W/O W/CONTRAST MATERIAL MRI WWO NEU1 [address], [place] [address] [address] [facility] [address] [place] [address] Phone: tel: fax: MRI Scan [address] [place] [address] Referral ID Status Reason Start Date Expiration Date Visits Re quested Visits Authorized [id number] Closed 08/14/2024 09/13/2024 1 1 Reason Comments Abdominal Pain Colon back in Februa ry unhappy with previous GI Reason Comments Neck Pain Chest Pain Shortness of Breath Reason Comments Chest Pain Headache Dizziness Reason Onset Date Comments ER Follow-up 10/06/2024 Reason Comments Weakness, Gen Tremors Reason Onset Date Comments Extremity Weakness 10/08/2024 Reason Onset Date Comments Appointment Request 10/07/2024 Reason Onset Date Comments Error (VOID this visit) 10/23/2024 Central scheduling Reason Onset Date Comments Medication Question 10/26/2024 Reason Comments Rapid Heart Rate Reason Comments Hospital Follow-up Head pressure, muscl e weakness, tremors Reason Comments Rapid Heart Rate Chest Pain Specialty Diagnoses / Procedures Referred By Contac t Referred To Contact Diagnoses Chest pain Tachycardia Chest pain, unspecified type Procedures [email or web address] Lawrence Hoffmann MD [address] [place] [address] Phone: tel: fax: [facility] Clinical Decision Unit [address] [address] Phone: tel: Referral ID Status Reason Start Date Expiration Date Visits Re quested Visits Authorized [id number] 1 1 Reason Onset Date Comments Neuro Problem 10/29/2024 Reason Comments Numbness Palpitations Reason Comments Hospital Follow-up Reason Comments Hospital Follow-up Palpitations Specialty Diagnoses / Procedures Referred By Joy irwin Referred To Contact Cardiology Diagnoses Tachycardia Procedures [place] OFFICE/OUTPATIENT NEW HIGH MDM 60 MINUTES Liang Combs MD [address] [place] [address] Phone: tel: fax: [facility] [address] [address] Phone: tel: fax: Referral ID Status Reason Start Date Expiration Date V isits Requested Visits Authorized Closed Specialty Services Required 10/05/2024 10/05/2025 1 1 Reason Comments Abdominal Pain Reason Onset Date Comments Appointment 10/30/2024 Reason Comments Abdominal Pain Pt states when she w latosha up she was having abd pain below her ribs Rapid Heart Rate Pt states she has be en seen for this by PCP and told to come in if her HR is consistently elevated. Hr 109 during triage Reason Comments Abdominal Pain Nausea Reason Comments Follow-up Migraine Reason Onset Date Comments Female Dysuria 12/15/2024 Reason Comments Urinary Frequency OFFICE VISIT - Urina ry urgency, pain with urination just started yesterday. Ordered Prescriptions (unrec ognized section and content) Prescription Sig Dispensed Refills Start Date End Da te ibuprofen (ADVIL;MOTRIN) 600 MG tablet Take 1 tablet by mouth every 6 hours as needed for Pain 60 tablet 0 09/17/2020 Scheduled Active and Recently Administ ered Medications (unrecognized section and content) Medication Order 09/15/2020 09/16/2020 09/17/2020 acetaminophen (TYLENOL) tablet 650 mg 650 mg, Oral, EVERY 6 HOURS, First dose on Sun09/15/20 at 1815, Maximum dose of acetaminophen is 4000 mg from all sources in 24 hours., 192 (Given - Provider: Elaine Medina RN) 0140 (Given - Provider: Sabine Warren RN)0705 (Given - Provider: Sabine Warrne RN)143 (Given - Provider: Elaine Medina RN)2100 (Given - Provider: Tanisha Rubio RN) 034 (Given - Provider: Tanisha Rubio RN)0615 (Due)121 (Due)1814 (Due) ibuprofen (ADVIL;MOTRIN) tablet 600 mg (COMPLETED) 600 mg, Oral, ONCE, On Sun09/14/20 at 1245, For 1 dose, IMMEDIATE . Do not crush or chew. DO NOT GIVE IBUPROFEN PRIOR TO DELIVERY., Post Delivery 1327 (Given - Provider: Pretty Allen RN) ibuprofen (ADVIL;MOTRIN) tablet 600 mg 600 mg, Oral, EVERY 6 HOURS, First dose on Sun09/15/20 at 1815, Do not crush or chew., 1928 (Given - Provider: Elaine Medina RN) 0140 (Given - Provider: Sabine Warren RN)0706 (Given - Provider: Sabine Warren RN)143 (Given - Provider: Elaine Medina RN)2100 (Given - Provider: Tanisha Rubio RN) 034 (Given - Provider: Tanisha Rubio RN)0615 (Due)121 (Due)1814 (Due) lidocaine-EPINEPHrine 1 %-1:[id number] injection 20 mL 20 mL, Intradermal, ONCE, On Sun09/15/20 at 1815, For 1 dose 1814 (Due) penicillin G potassium in d5w IVPB 2.5 Million Units (CANCELED) 2.5 Million Units, Intravenous, EVERY 4 HOURS, First dose on Sun09/14/20 at 1730, Until Discontinued, Begin 4 hours after loading dose. Continue until delivery., Labor and Delivery 0129 (New Bag - Provider: Nuris Martinez, RN)0159 (Stopped - Provider: Zonia Rodriguez, GEREMIAS)0549 (New Bag - Provider: Idalia Carranza RN)0619 (Stopped - Provider: Alana Thurman, RN)0925 (New Bag - Provider: Pretty Allen RN)0955 (Stopped - Provider: Pretty Allen RN)1330 (Due - Provider: Monae Merino [facility])1730 (Due - Provider: Monae Merino [facility]) Continuous Medication Order 09/15/2020 09/16/2020 09/17/2020 lactated ringers infusion (CANCELED) Intravenous, at 125 mL/hr, CONTINUOUS, Starting on Sun09/14/20 at 1245, Labor and Delivery 0451 (New Bag - Provider: Idalia Carranza RN)0549 (New Bag - Provider: Idalia Carranza RN) oxytocin (PITOCIN) 10 unit bolus from the [...] every 2-3 minutes with cervical changes or Traver units (MVU) greater than 200 in a [...] and Delivery 1327 (Given - Provider: Pretty Allen, GEREMIAS) benzocaine-menthol (DERMOPLAST) 20-0.5 % spray Topical, PRN, [...] Anna 09/16/20 at 1433, For 1 dose, ELAINE Medina: cabinet override 1445 (Due) Scheduled Medication Order 10/03/2024 10/04/2024 10/05/2024 hydrOXYzine pamoate (Vistaril) capsule 25 mg (COMPLETED) 25 mg, Oral, Once, On 10/05/24 at 1920, For 1 dose 1921 (Given - Provid er: Ai Abreu RN) potassium chloride (Klor-Con) packet 40 mEq (COMPLETED) 40 mEq, Oral, Once, On 10/05/24 at 1745, For 1 dose, Dissolve each packet in 4 ounces of water = 5 mEq per 1 oz fluid., Indications: Hypokalemia 1754 (Given - Provid er: Ai Abreu RN) sodium chloride 0.9 % bolus 1,000 mL (COMPLETED) 1,000 mL, IntraVENous, at 1,000 mL/hr, Administer over 1 Hours, Once, On 10/05/24 at 1450, For 1 dose 1502 (New Bag - Prov ider: Ai Abreu RN)1628 (Stopped - Provider: Ai Abreu RN) PRN Medication Order 10/03/2024 10/04/2024 10/05/2024 iopamidol (Isovue-370) 76 % injection 75 mL (COMPLETED) 75 mL, IntraVENous, IMG once PRN, contrast, Starting on 10/05/24 at 1725, For 1 dose 1725 (Given - Provid er: Edwina Corrigan, RT (R)) Scheduled Medication Order 10/03/2024 10/04/2024 10/05/2024 cephalexin (Keflex) capsule 500 mg (COMPLETED) 500 mg, Oral, Once, On 10/05/24 at 2150, For 1 dose, Suspected Indication (Select all that apply): Skin and Soft Tissue Infection 2207 (Given - Provid er: Tejal No RN) Scheduled Medication Order 10/25/2024 10/26/2024 10/27/2024 metoprolol tartrate (Lopressor) tablet 12.5 mg (COMPLETED) 12.5 mg, Oral, Once, On 10/27/24 at 0220, For 1 dose 0225 (Given - Provid er: Zoe Owens RN) potassium chloride CR (Klor-Con M10) ER tablet 40 mEq (COMPLETED) 40 mEq, Oral, Once, On Sun10/27/24 at 0345, For 1 dose, Best given with food and plenty of water to minimize gastric irritation. Do not crush or chew. 0343 (Given - Provid er: Zoe Owens RN) Scheduled Medication Order 10/27/2024 10/28/2024 10/29/2024 aspirin chewable tablet 324 mg (COMPLETED) 324 mg, Oral, Once, On Sun10/28/24 at 0755, For 1 dose 0801 (Given - Provider: Ileana Oliva RN) metoprolol succinate XL (Toprol-XL) 24 hr tablet 12.5 mg 12.5 mg, Oral, Nightly, First dose on Sun10/28/24 at 2100, Do not crush or chew. 2000 (Given - Provider: Frankie Meng RN) nitroglycerin (Nitrostat) SL tablet 0.4 mg (COMPLETED) 0.4 mg, SubLINGual, Once, On Sun10/28/24 at 0755, For 1 dose, May administer up to 3 doses per episode. 0803 (Given - Provider: Ileana Oliva RN - Comment: 136/85) sodium chloride 0.9 % bolus 1,000 mL (COMPLETED) 1,000 mL, IntraVENous, at 1,000 mL/hr, Administer over 1 Hours, Once, On Sun10/28/24 at 1310, For 1 dose 1310 (New Bag - Provider: Ileana Oliva RN)1410 (Stopped - Provider: Ileana Oliva RN) PRN Medication Order 10/27/2024 10/28/2024 10/29/2024 acetaminophen (Tylenol) suppository 650 mg(Linked Group 1) 650 mg, Rectal, Every 6 hours PRN, mild pain (1-3), fever, For temp greater than 100.4 F (38 C), Starting on Sun10/29/24 at 0759, Administer if oral route cannot be used. Maximum dose of acetaminophen is 4000 mg from all sources in 24 hours. 0801 (See Alternativ e - Provider: Gayatri Poe RN) acetaminophen (Tylenol) tablet 650 mg(Linked Group 1) 650 mg, Oral, Every 6 hours PRN, mild pain (1-3), fever, moderate pain (4-6), severe pain (7-10), For temp greater than 100.4 F (38 C), Starting on Sun10/29/24 at 0759, Maximum dose of acetaminophen is 4000 mg from all sources in 24 hours. 0801 (Given - Provid er: Gayatri Poe RN) gabapentin (Neurontin) capsule 300 mg 300 mg, Oral, 2 times daily PRN, anxiety, 1st line, Starting on Sun10/29/24 at 1159 1520 (Given - Provid er: Gayatri Poe RN) hydrOXYzine pamoate (Vistaril) capsule 25 mg (CANCELED) 25 mg, Oral, Every 6 hours PRN, anxiety, Starting on Sun10/28/24 at 1838 2132 (Given - Provider: Frankie Meng RN) hydrOXYzine pamoate (Vistaril) capsule 25 mg 25 mg, Oral, Every 6 hours PRN, anxiety, 2nd line, Starting on Sun10/29/24 at 1159 metoprolol tartrate (Lopressor) injection 5 mg 5 mg, IntraVENous, Every 6 hours PRN, tachycardia, Starting on Sun10/28/24 at 1751, HR > 120 ondansetron (Zofran) injection 4 mg(Linked Group 2) 4 mg, IntraVENous, Every 6 hours PRN, nausea, vomiting, Starting on Sun10/28/24 at 1617, Administer if oral route cannot be used. 180 (Given - Provider: Gayatri Poe RN) 0755 (Given - Provider: Gayatri Poe RN) ondansetron ODT (Zofran-ODT) disintegrating tablet 4 mg(Linked Group 2) 4 mg, Oral, Every 8 hours PRN, nausea, vomiting, Starting on Sun10/28/24 at 1617, Patient should allow tablet to dissolve on tongue. Do not remove from blister pack until just before administering. 1807 (See Alternative - Provider: Gayatri Poe RN) 0755 (See Alternative - Provider: Gayatri Poe RN) perflutren lipid microspheres (Definity) injection 1.65 mg 1.65 mg, IntraVENous, IMG once PRN, other, Suboptimal echo image, Starting on Sun10/28/24 at 1622, For 1 dose, CV Procedural Medications, Administer up to 1.65 mg via slow IVP for suboptimal echocardiogram enhancement. May administer a calculated dose or diluted 8.5 mL of 0.9% sodium chloride for a total volume of 10 mL. May administer as divided doses to reach optimal image enhancement perflutren protein A microsphere (Optison) 3 mL in sodium chloride (PF) 0.9 % 10 mL IV 0-10 mL, IntraVENous, IMG once PRN, other, Suboptimal echo image, Starting on Sun10/29/24 at 0755, For 1 dose, CV Procedural Medications, Administer via slow IVP for suboptimal echocardiogram enhancement. May administer as divided doses to reach optimal image enhancement polyethylene glycol (PEG) 3350 (Miralax) packet 17 g 17 g, Oral, Daily PRN, constipation, Starting on Sun10/28/24 at 1617, 1st line for treatment of constipation - give scheduled if no bowel movement in past 24 hours. Linked Groups Order Group 1: acetaminophen (Tylenol) tablet 650 mgJump to med 650 mg, Oral, Every 6 hours PRN, mild pain (1-3), fever, moderate pain (4-6), severe pain (7-10), For temp greater than 100.4 F (38 C), Starting on Sun10/29/24 at 0759, Maximum dose of acetaminophen is 4000 mg from all sources in 24 hours. Or acetaminophen (Tylenol) suppository 650 mgJump to med 650 mg, Rectal, Every 6 hours PRN, mild pain (1-3), fever, For temp greater than 100.4 F (38 C), Starting on Sun10/29/24 at 0759, Administer if oral route cannot be used. Maximum dose of acetaminophen is 4000 mg from all sources in 24 hours. Group 2: ondansetron ODT (Zofran-ODT) disintegrating tablet 4 mgJump to med 4 mg, Oral, Every 8 hours PRN, nausea, vomiting, Starting on Sun10/28/24 at 1617, Patient should allow tablet to dissolve on tongue. Do not remove from blister pack until just before administering. Or ondansetron (Zofran) injection 4 mgJump to med 4 mg, IntraVENous, Every 6 hours PRN, nausea, vomiting, Starting on Sun10/28/24 at 1617, Administer if oral route cannot be used. Scheduled Medication Order 10/29/2024 10/30/2024 10/31/2024 LORazepam (Ativan) injection 1 mg (COMPLETED) 1 mg, IntraVENous, Once, On Anna 10/30/24 at 2305, For 1 dose, For IV doses dilute dose with 1ml NS. 2315 (Given - Provider: Tejal No, GEREMIAS) sodium chloride 0.9 % bolus 1,000 mL (COMPLETED) 1,000 mL, IntraVENous, at 1,000 mL/hr, Administer over 1 Hours, Once, On Anna 10/30/24 at 2305, For 1 dose 2311 (New Bag - Provider: Tejal No, GEREMIAS) 0110 (Stopped - Provider: Tejal No, GEREMIAS) PRN Medication Order 10/29/2024 10/30/2024 10/31/2024 iopamidol (Isovue-370) 76 % injection 75 mL (COMPLETED) 75 mL, IntraVENous, IMG once PRN, contrast, Starting on Sun10/31/24 at 0055, For 1 dose 0056 (Given - Provid er: Nehal Braden, RT (R)(CT)) Scheduled Medication Order 11/12/2024 11/13/2024 11/14/2024 acetaminophen (Tylenol) tablet 650 mg (COMPLETED) 650 mg, Oral, Once, On Sun11/14/24 at 0335, For 1 dose, Maximum dose of acetaminophen is 4000 mg from all sources in 24 hours. 0336 (Given - Provid er: Samantha Leary RN) Scheduled Medication Order 11/21/2024 11/22/2024 11/23/2024 acetaminophen (Tylenol) tablet 650 mg (COMPLETED) 650 mg, Oral, Once, On Sun11/23/24 at 0855, For 1 dose, Maximum dose of acetaminophen is 4000 mg from all sources in 24 hours. 09 (Given - Provid er: Casandra Whitmore RN) lactated ringers bolus 2,000 mL (COMPLETED) 2,000 mL, IntraVENous, at 1,000 mL/hr, Administer over 2 Hours, Once, On Sun11/23/24 at 0855, For 1 dose 0919 (New Bag - Prov ider: Casandra Whitmore RN)1119 (Stopped - Provider: Casandra Whitmore RN) Scheduled Medication Order 12/01/2024 12/02/2024 12/03/2024 busPIRone (Buspar) tablet 7.5 mg 7.5 mg, Oral, 3 times daily, First dose on Sun12/03/24 at 0900 0751 (Given - Provid er: Cheli Monterroso RN)1400 (Canceled Entry - Provider: Automatic Discharge Provider - Comment: Automatically canceled at discontinue of medication order) enoxaparin (Lovenox) syringe 40 mg 40 mg, SubCUTAneous, Every 24 hours scheduled (Daily), First dose (after last reorder) on Sun12/03/24 at 0900, Dosage or interval has been adjusted per [facility]al Dosing policy. , Indication of Use: Prophylaxis-DVT/PE, Indications: Prophylaxis of Venous Thromboembolism 1000 (Not Given - Pr ovider: Cheli Monterroso RN - Reason: Patient/family refused) influenza vaccine tiss-cult subunt (Flucelvax) STANDARD-DOSE injection 0.5 mL 0.5 mL, IntraMUSCular, Once, On Sun12/03/24 at 0900, For 1 dose 1000 (Not Given - Pr ovider: Cheli Monterroso RN - Reason: Patient/family refused) pantoprazole (ProtoNix) EC tablet 20 mg 20 mg, Oral, Daily before breakfast, First dose on Sun12/03/24 at 0630, Do not crush, chew, or split. 0639 (Given - Provid er: Rowan Fraser RN) sodium chloride 0.9 % bolus 1,000 mL (COMPLETED) 1,000 mL, IntraVENous, at 1,000 mL/hr, Administer over 1 Hours, Once, On Sun12/03/24 at 0240, For 1 dose 0259 (New Bag - Prov ider: Natalee Nj RN)0359 (Stopped - Provider: Kezia Rivers RN) PRN Medication Order 12/01/2024 12/02/2024 12/03/2024 acetaminophen (Tylenol) suppository 650 mg(Linked Group 1) 650 mg, Rectal, Every 6 hours PRN, fever, For temp greater than 100.4 F (38 C), Starting on Sun12/03/24 at 0617, Administer if oral route cannot be used. Maximum dose of acetaminophen is 4000 mg from all sources in 24 hours. acetaminophen (Tylenol) tablet 650 mg(Linked Group 1) 650 mg, Oral, Every 6 hours PRN, mild pain (1-3), fever, For temp greater than 100.4 F (38 C), Starting on Sun12/03/24 at 0617, Maximum dose of acetaminophen is 4000 mg from all sources in 24 hours. polyethylene glycol (PEG) 3350 (Miralax) packet 17 g 17 g, Oral, Daily PRN, constipation, Starting on Sun12/03/24 at 0617, 1st line for treatment of constipation - give scheduled if no bowel movement in past 24 hours. prochlorperazine (Compazine) injection 10 mg(Linked Group 2) 10 mg, IntraVENous, Every 6 hours PRN, nausea, vomiting, Starting on Sun12/03/24 at 0619, 1st Line. Give IV if patient is unable to take orally. Give IM if patient is unable to take orally and does not have IV access. If inadequate response within 60 minutes, proceed to next-line agent or contact provider if no further options ordered. prochlorperazine (Compazine) suppository 25 mg(Linked Group 2) 25 mg, Rectal, Every 12 hours PRN, nausea, vomiting, Starting on Sun12/03/24 at 0619, 1st Line. Give [place] if patient is unable to take orally or receive by injection. If inadequate response within 60 minutes, proceed to next-line agent or contact provider if no further options ordered. prochlorperazine (Compazine) tablet 10 mg(Linked Group 2) 10 mg, Oral, Every 6 hours PRN, nausea, vomiting, Starting on Sun12/03/24 at 0619, 1st Line. If inadequate response within 60 minutes, proceed to next-line agent or contact provider if no further options ordered. Linked Groups Order Group 1: acetaminophen (Tylenol) tablet 650 mgJump to med 650 mg, Oral, Every 6 hours PRN, mild pain (1-3), fever, For temp greater than 100.4 F (38 C), Starting on Sun12/03/24 at 0617, Maximum dose of acetaminophen is 4000 mg from all sources in 24 hours. Or acetaminophen (Tylenol) suppository 650 mgJump to med 650 mg, Rectal, Every 6 hours PRN, fever, For temp greater than 100.4 F (38 C), Starting on Sun12/03/24 at 0617, Administer if oral route cannot be used. Maximum dose of acetaminophen is 4000 mg from all sources in 24 hours. Group 2: prochlorperazine (Compazine) tablet 10 mgJump to med 10 mg, Oral, Every 6 hours PRN, nausea, vomiting, Starting on Sun12/03/24 at 0619, 1st Line. If inadequate response within 60 minutes, proceed to next-line agent or contact provider if no further options ordered. Or prochlorperazine (Compazine) injection 10 mgJump to med 10 mg, IntraVENous, Every 6 hours PRN, nausea, vomiting, Starting on Sun12/03/24 at 0619, 1st Line. Give IV if patient is unable to take orally. Give IM if patient is unable to take orally and does not have IV access. If inadequate response within 60 minutes, proceed to next-line agent or contact provider if no further options ordered. Or prochlorperazine (Compazine) suppository 25 mgJump to med 25 mg, Rectal, Every 12 hours PRN, nausea, vomiting, Starting on Sun12/03/24 at 0619, 1st Line. Give [place] if patient is unable to take orally or receive by injection. If inadequate response within 60 minutes, proceed to next-line agent or contact provider if no further options ordered. Scheduled Medication Order 12/06/2024 12/07/2024 12/08/2024 famotidine (Pepcid) 20 mg in sodium chloride (PF) 0.9 % 10 mL injection (COMPLETED) 20 mg, IntraVENous, Administer over 2 Minutes, Once, On Sun12/08/24 at 0225, For 1 dose, IV Push over minimum of 2 minutes - Dilute with 10 mL NS 0231 (Given - Provid er: Tejal No RN) ondansetron (Zofran) injection 4 mg (COMPLETED) 4 mg, IntraVENous, Once, On Sun12/08/24 at 0225, For 1 dose 0230 (Given - Provid er: Tejal No RN) pantoprazole (ProtoNix) 40 mg in sodium chloride (PF) 0.9 % 10 mL injection (COMPLETED) 40 mg, IntraVENous, Administer over 2 Minutes, Once, On Sun12/08/24 at 0225, For 1 dose, Reconstitute with 10 ml NS. Vial expires 2 hrs after reconstitution. 0230 (Given - Provid er: Tejal No RN) sodium chloride 0.9 % bolus 1,000 mL (COMPLETED) 1,000 mL, IntraVENous, at 1,000 mL/hr, Administer over 1 Hours, Once, On Sun12/08/24 at 0225, For 1 dose 0239 (New Bag - Prov ider: Tejal No RN)0416 (Stopped - Provider: Tejal No RN) PRN Medication Order 12/06/2024 12/07/2024 12/08/2024 iopamidol (Isovue-370) 76 % injection 75 mL (COMPLETED) 75 mL, IntraVENous, IMG once PRN, contrast, Starting on Sun12/08/24 at 0340, For 1 dose 0341 (Given - Provid er: Peggy Meng, RT (R)(CT)) Care Teams (unrecognized sec tion and content) Design Engineering Manager Relationship Specialty Start Date End Date Zachariah Rome DO [address] [place], [place] [id number] PCP - General Family Medicine 07/16/20 Design Engineering Manager Relationship Specialty Start Date End Date Zachariah Rome DO [address] [place] [phone] PCP - General 07/16/20 Design Engineering Manager Relationship Specialty Start Date End Date Zachariah Rome DO [address] [place] [address] PCP - General 07/16/20 Design Engineering Manager Relationship Specialty Start Date End Date Zachariah Rome DO [address] [place] [address] PCP - General 07/16/20 Design Engineering Manager Relationship Specialty Start Date End Date Zachariah Rome DO [address] [place] [address] PCP - General 07/16/20 Design Engineering Manager Relationship Specialty Start Date End Date Zachariah Rome DO [address] [place] [address] PCP - General 07/16/20 Design Engineering Manager Relationship Specialty Start Date End Date Zachariah Rome DO [address] [place] [address] PCP - General 07/16/20 Design Engineering Manager Relationship Specialty Start Date End Date Zachariah Rome DO [address] [place] [address] PCP - General 07/16/20 Design Engineering Manager Relationship Specialty Start Date End Date Zachariah Rome DO [address] [place] [address] PCP - General 07/16/20 Design Engineering Manager Relationship Specialty Start Date End Date Zachariah Rome DO [address] [place] [address] PCP - General 07/16/20 Design Engineering Manager Relationship Specialty Start Date End Date Zachariah Rome DO [address] [place] [address] PCP - General 07/16/20 Cathy Watson DO [address] [place] [address] Consulting Physician Hematology and Oncology 08/02/22 Kojo Reis MD [address] [facility] [address] [place] [address] Nephrology 08/02/22 Design Engineering Manager Relationship Specialty Start Date End Date Zachariah Rome DO [address] [place] [phone] PCP - General 07/16/20 Cathy Watson DO [address] [place], [place] [phone] Consulting Physician Hematology and Oncology 08/02/22 Kojo Reis MD [address] [facility] [address] [place] [address] Nephrology 08/02/22 Design Engineering Manager Relationship Specialty Start Date End Date Zachariah Rome DO [address] [place] [phone] PCP - General 07/16/20 Cathy Watson DO [address] [place] [address] Consulting Physician Hematology and Oncology 08/02/22 Kojo Reis MD [address] [facility] [address] [place] [address] Nephrology 08/02/22 Design Engineering Manager Relationship Specialty Start Date End Date Zachariah Rome DO [address] [place] [phone] PCP - General 07/16/20 Cathy Watson DO [address] [place] [address] Consulting Physician Hematology and Oncology 08/02/22 Kojo Reis MD [address] [facility] [address] [place] [address] Nephrology 08/02/22 Design Engineering Manager Relationship Specialty Start Date End Date Zachariah Rome DO [address] [place] [phone] PCP - General 07/16/20 Cathy Watson DO [address] [place] [address] Consulting Physician Hematology and Oncology 08/02/22 Kojo Reis MD [address] [facility] [address] [place] [address] Nephrology 08/02/22 Design Engineering Manager Relationship Specialty Start Date End Date Zachariah Rome DO [address] [place] [phone] PCP - General 07/16/20 Cathy Watson DO [address] [place] [address] Consulting Physician Hematology and Oncology 08/02/22 Kojo Reis MD [address] [facility] [address] [place] [address] Nephrology 08/02/22 Design Engineering Manager Relationship Specialty Start Date End Date Zachariah Rome DO [address] [place] [phone] PCP - General 07/16/20 Cathy Watson DO [address] [place] [address] Consulting Physician Hematology and Oncology 08/02/22 Kojo Reis MD [address] [facility] [address] [place] [address] Nephrology 08/02/22 Design Engineering Manager Relationship Specialty Start Date End Date Zachariah Rome DO [address] [place] [address] PCP - General 07/16/20 Cathy Watson DO [address] [place] [address] Consulting Physician Hematology and Oncology 08/02/22 Kojo Reis MD [address] [facility] [address] [place] [address] Nephrology 08/02/22 Design Engineering Manager Relationship Specialty Start Date End Date Zachariah Rome DO [address] [place] [phone] PCP - General 07/16/20 Cathy Watson DO [address] [place] [address] Consulting Physician Hematology and Oncology 08/02/22 Kojo Reis MD [address] [facility] [address] [place] [address] Nephrology 08/02/22 Design Engineering Manager Relationship Specialty Start Date End Date Zachariah Rome DO [address] [place] [address] PCP - General 07/16/20 Cathy Watson DO [address] [place] [address] Consulting Physician Hematology and Oncology 08/02/22 Kojo Reis MD [address] [facility] [address] [place] [address] Nephrology 08/02/22 Team Status: Active Member Role Status Dates Dr. Lawrence Rome MD Family Provider Active Dr. Zachariah Rome , DO Primary Care Provider A ctive Team Status: Inactive Member Role Status Dates Dr. Zachariah Rome , Primary Care Provider, Referring Provider Active Dr. Pretty Matos , DO Attending Provider Activ e Team Status: Inactive Member Role Status Dates Dr. Zachariah Rome , DO Referring Provider Acti ve Phylicia Mc CNM Attending Provider Active Team Status: Inactive Member Role Status Dates Dr. Zachariah Rome , DO Primary Care Provider A ctive Phylicia Mc CNM Attending Provider, Referring Pr ovider Active Team Status: Inactive Member Role Status Dates Dr. Pretty Matos , Attending Provider Activ e Dr. Zachariah Rome , DO Primary Care Provider, Referring Provider Active Team Status: Inactive Member Role Status Dates Dr. Zachariah Rome , DO Primary Care Provider, Referring Provider Active Natasha Jay PATIENT TRANSITION SPECIALIST, PATIENT TRANSITION SPECIALIST-C Attending Provider Active Team Status: Inactive Member Role Status Dates Dr. Zachariah Rome , DO Primary Care Provider A ctive Dr. Pretty Matos , DO Attending Provider, Refe rring Provider Active Design Engineering Manager Relationship Specialty Start Date End Date Zachariah Rome DO [address] [place] [address] PCP - General 07/16/20 Cathy Watson DO [address] [place] [address] Consulting Physician Hematology and Oncology 08/02/22 Kojo Reis MD [address] [facility] [address] [place] [address] Nephrology 08/02/22 Design Engineering Manager Relationship Specialty Start Date End Date Zachariah Rome DO [address] [place] [phone] PCP - General 07/16/20 Cathy Watson DO [address] [place] [address] Consulting Physician Hematology and Oncology 08/02/22 Kojo Reis MD [address] [facility] [address] [place] [address] Nephrology 08/02/22 Mayela Prajapati MD [address] [phone] Jumpbasting Collar Baster Nephrology 06/11/23 Design Engineering Manager Relationship Specialty Start Date End Date Zachariah Rome DO [address] [place] [address] PCP - General 07/16/20 Cathy Watson DO [address] [place] [address] Consulting Physician Hematology and Oncology 08/02/22 Kojo Reis MD [address] [place] [address] [place] [address] Nephrology 08/02/22 Mayela Prajapati MD 1 [facility] [address] [place] [phone] Jumpbasting Collar Baster Nephrology 06/11/23 Design Engineering Manager Relationship Specialty Start Date End Date Zachariah Rome DO [address] [place] [address] PCP - General 07/16/20 Design Engineering Manager Relationship Specialty Start Date End Date Zachariah Rome [place] [phone] PCP - General 07/16/20 Design Engineering Manager Relationship Specialty Start Date End Date Zachariah Rome [place] [address] PCP - General 07/16/20 Design Engineering Manager Relationship Specialty Start Date End Date Zachariah Rome [place] [place] [phone] PCP - General 07/16/20 Design Engineering Manager Relationship Specialty Start Date End Date Zachariah Rome DO [address] [place] [address] PCP - General 07/16/20 Design Engineering Manager Relationship Specialty Start Date End Date Zachariah Rome [place] [place] [address] PCP - General 07/16/20 Design Engineering Manager Relationship Specialty Start Date End Date Zachariah Rome DO [address] [place] [phone] PCP - General 07/16/20 Cathy Watson DO [address] [place] [address] Consulting Physician Hematology and Oncology 08/02/22 Kojo Reis MD [address] [facility] [address] [place] [address] Nephrology 08/02/22 Mayela Prajapati MD [address] [facility] [address] [place] [phone] Jumpbasting Collar Baster Nephrology 06/11/23 Design Engineering Manager Relationship Specialty Start Date End Date Zachariah Rome DO [address] [place] [phone] PCP - General 07/16/20 Cathy Watson DO [address] [place] [address] Consulting Physician Hematology and Oncology 08/02/22 Kojo Reis MD [address] [facility] [address] [place] [address] Nephrology 08/02/22 Mayela Prajapati MD [address] [facility] [address] [place] [phone] Jumpbasting Collar Baster Nephrology 06/11/23 Design Engineering Manager Relationship Specialty Start Date End Date Zachariah Rome DO [address] [place] [address] PCP - General 07/16/20 Cathy Watson DO [address] [place] [address] Consulting Physician Hematology and Oncology 08/02/22 Kojo Reis MD [address] [facility] [address] [place] [address] Nephrology 08/02/22 Mayela Prajapati MD 1 [facility] [address] [place] [phone] Jumpbasting Collar Baster Nephrology 06/11/23 Design Engineering Manager Relationship Specialty Start Date End Date Lawrence Rome MD PCP - General Family Medicine 09/30/16 Design Engineering Manager Relationship Specialty Start Date End Date Zachariah Rome DO [address] [place] [address] PCP - General 07/16/20 Cathy Watson DO [address] [place] [address] Consulting Physician Hematology and Oncology 08/02/22 Kojo Reis MD [address] [facility] [address] [place] [address] Nephrology 08/02/22 Mayela Prajapati MD 1 [facility] [address] [place] [phone] Jumpbasting Collar Baster Nephrology 06/11/23 Team Status: Active Member Role/Relationship Status Dates Dr. Zachariah Rome DO Primary Care Provider A ctive Team Status: Inactive Member Role/Relationship Status Dates Dr. Zachariah Rome DO Primary Care Provider A ctive Start: August 05, 2024 End: August 05, 2024 Dr. Zachariah Rome DO Referring Provider Acti ve Start: August 05, 2024 End: August 05, 2024 Dr. Lawrence Del Toro MD Attending Provider Active Start: August 05, 2024 End: August 05, 2024 Design Engineering Manager Relationship Specialty Start Date End Date Zachariah Rome DO [address] [place] [address] PCP - General 07/16/20 Cathy Watson DO [address] [place] [address] Consulting Physician Hematology and Oncology 08/02/22 Kojo Reis MD [address] [place] [address] [address] [place], [place] [phone] Nephrology 08/02/22 Mayela Prajapati MD [address] [phone] Jumpbasting Collar Baster Nephrology 06/11/23 Design Engineering Manager Relationship Specialty Start Date End Date Zachariah Rome DO [address] [place] [phone] PCP - General 07/16/20 Cathy Watson DO [address] [place] [address] Consulting Physician Hematology and Oncology 08/02/22 Kojo Reis MD [address] [place] [address] Nephrology 08/02/22 Mayela Prajapati MD 1 [facility] [address] [place] [phone] Jumpbasting Collar Baster Nephrology 06/11/23 Team Status: Inactive Member Role/Relationship Status Dates Dr. Zachariah Rome , DO Primary Care Provider A ctive Start: August 19, 2024 End: August 19, 2024 Dr. Lawrence Del Toro MD Attending Provider Active Start: August 19, 2024 End: August 19, 2024 Dr. Lawrence Del Toro MD Referring Provider Active Start: August 19, 2024 End: August 19, 2024 Team Status: Active Member Role/Relationship Status Dates Dr. Zachariah Rome , DO Primary Care Provider A ctive Start: August 19, 2024 Dr. Lawrence Del Toro MD Attending Provider Active Start: August 19, 2024 Dr. Lawrence Del Toro MD Referring Provider Active Start: August 19, 2024 Dr. Lawrence Del Toro MD Other Provider Active St art: August 19, 2024 Design Engineering Manager Relationship Specialty Start Date End Date Lawrence Rome MD PCP - General Family Medicine 09/30/16 Team Status: Inactive Member Role/Relationship Status Dates Dr. Zachariah Rome DO Primary Care Provider A ctive Start: August 27, 2024 End: August 27, 2024 Dr. Zachariah Rome DO Referring Provider Acti ve Start: August 27, 2024 End: August 27, 2024 Dr. Lawrence Del Toro MD Attending Provider Active Start: August 27, 2024 End: August 27, 2024 Design Engineering Manager Relationship Specialty Start Date End Date Lawrence Rome MD PCP - General Family Medicine 09/30/16 Team Status: Active Member Role/Relationship Status Dates Dr. Zachariah Rome DO Primary Care Provider A ctive Start: September 16, 2024 Nancy MORLEY PA-C Attending Provider Active Start: September 16, 2024 Nancy MORLEY PA-C Referring Provider Active Start: September 16, 2024 Team Status: Inactive Member Role/Relationship Status Dates Dr. Zachariah Rome DO Primary Care Provider A ctive Start: September 17, 2024 End: September 17, 2024 Dr. Zachariah Rome DO Referring Provider Acti ve Start: September 17, 2024 End: September 17, 2024 Dr. Lawrence Del Toro MD Attending Provider Active Start: September 17, 2024 End: September 17, 2024 Team Status: Inactive Member Role/Relationship Status Dates Dr. Zachariah Rome DO Primary Care Provider A ctive Start: September 16, 2024 End: September 16, 2024 Nancy MORLEY PA-C Attending Provider Active Start: September 16, 2024 End: September 16, 2024 Nancy MORLEY PA-C Referring Provider Active Start: September 16, 2024 End: September 16, 2024 Design Engineering Manager Relationship Specialty Start Date End Date Lawrence Rome MD PCP - General Family Medicine 09/30/16 Design Engineering Manager Relationship Specialty Start Date End Date Zachariah Rome DO [address] [place] [phone] PCP - General 07/16/20 Cathy Watson DO [address] [facility] [address] [place] [address] Consulting Physician Hematology and Oncology 08/02/22 Kojo Reis MD [address] [facility] [address] [place] [address] Nephrology 08/02/22 Mayela Prajapati MD 1 [facility] [address] [place] [phone] Jumpbasting Collar Baster Nephrology 06/11/23 Design Engineering Manager Relationship Specialty Start Date End Date Zachariah Rome DO [address] [place] [address] PCP - General 07/16/20 Cathy Watson DO [address] [place], [place] [phone] Consulting Physician Hematology and Oncology 08/02/22 Kojo Reis MD [address] [facility] [address] [place] [address] Nephrology 08/02/22 Mayela Prajapati MD 1 [facility] [address] [place] [address] Jumpbasting Collar Baster Nephrology 06/11/23 Design Engineering Manager Relationship Specialty Start Date End Date Zachariah Rome DO [address] [place] [address] PCP - General 07/16/20 Cathy Watson DO [address] [place], [place] [phone] Consulting Physician Hematology and Oncology 08/02/22 Kojo Reis MD [address] [facility] [address] [place], [place] [phone] Nephrology 08/02/22 Mayela Prajapati MD 1 [facility] [address] [place] [phone] Jumpbasting Collar Baster Nephrology 06/11/23 Team Status: Inactive Member Role/Relationship Status Dates Dr. Zachariah Rome DO Primary Care Provider Active Start: October 062024 End: October 15, 2024 Dr. Zachariah Rome DO Referring Provider Active Start: October End: October 15, 2024 MILLI Nelson Attending Provider Active St art: October 15, 2024 End: October 15, 2024 Design Engineering Manager Relationship Specialty Start Date End Date Zachariah Rome DO [address] [place] [address] PCP - General Family Medicine 10/09/24 Design Engineering Manager Relationship Specialty Start Date End Date Zachariah Rome DO [address] [place] [phone] PCP - General 07/16/20 aCthy Watson DO [address] [facility] [address] [place] [address] Consulting Physician Hematology and Oncology 08/02/22 Kojo Reis MD [address] [facility] [address] [place] [address] Nephrology 08/02/22 Mayela Prajapati MD [address] [facility] [address] [place] [phone] Jumpbasting Collar Baster Nephrology 06/11/23 Team Status: Inactive Member Role/Relationship Status Dates Dr. Zachariah Rome DO Primary Care Provider Active Start: October 062024 End: October 20, 2024 Dr. Zachariah Rome DO Referring Provider Active Start: October End: October 20, 2024 Dr. Lawrence Del Toro MD Attending Provider Active Start: October 20, 2024 End: October 20, 2024 Design Engineering Manager Relationship Specialty Start Date End Date Zachariah Rome DO [address] [place] [address] PCP - General 07/16/20 Cathy Watson DO [address] [place] [address] Consulting Physician Hematology and Oncology 08/02/22 Kojo Reis MD [address] [facility] [address] [place] [address] Nephrology 08/02/22 Mayela Prajapati MD [address] [phone] Jumpbasting Collar Baster Nephrology 06/11/23 Design Engineering Manager Relationship Specialty Start Date End Date Zachariah Rome DO [address] [place] [phone] PCP - General 07/16/20 Cathy Watson DO [address] [place] [address] Consulting Physician Hematology and Oncology 08/02/22 Kojo Reis MD [address] [facility] [address] [place] [address] Nephrology 08/02/22 Mayela Prajapati MD [address] [facility] [address] [place] [phone] Jumpbasting Collar Baster Nephrology 06/11/23 Design Engineering Manager Relationship Specialty Start Date End Date Zachariah Rome DO [address] [place] [phone] PCP - General 07/16/20 Cathy Watson DO [address] [place] [address] Consulting Physician Hematology and Oncology 08/02/22 Kojo Reis MD [address] [facility] [address] [place] [address] Nephrology 08/02/22 Mayela Prajapati MD [address] [facility] [address] [place] [phone] Jumpbasting Collar Baster Nephrology 06/11/23 Design Engineering Manager Relationship Specialty Start Date End Date Zachariah Rome DO [address] [place] [phone] PCP - General 07/16/20 Cathy Watson DO [address] [place] [address] Consulting Physician Hematology and Oncology 08/02/22 Kojo Reis MD [address] [facility] [address] [place] [address] Nephrology 08/02/22 Mayela Prajapati MD 1 [facility] [address] [place] [phone] [employer]basting [employer]aster Nephrology 06/11/23 Design Engineering Manager Relationship Specialty Start Date End Date Ralph Romeabigail [address] [place] [phone] PCP - General 07/16/20 Cathy Watson DO [address] [place] [address] Consulting Physician Hematology and Oncology 08/02/22 Kojo Reis MD [address] [facility] [address] [place] [address] Nephrology 08/02/22 Mayela Prajapati MD 1 [facility] [address] [place] [phone] Jumpbasting Col[employer] Baster Nephrology 06/11/23 Design Engineering Manager Relationship Specialty Start Date End Date Ralph RomemanDO [address] [place] [phone] PCP - General 07/16/20 Cathy Watson DO [address] [place] [address] Consulting Physician Hematology and Oncology 08/02/22 Kojo Reis MD [address] [facility] [address] [place] [address] Nephrology 08/02/22 Mayela Prajapati MD 1 [facility] [address] [place] [phone] Jumpbasting Col[employer] Baster Nephrology 06/11/23 Design Engineering Manager Relationship Specialty Start Date End Date Zachariah Rome DO [address] [place] [phone] PCP - General 07/16/20 Cathy Watson DO [address] [place] [address] Consulting Physician Hematology and Oncology 08/02/22 Kojo Reis MD [address] [facility] [address] [place] [address] Nephrology 08/02/22 Mayela Prajapati MD 1 [facility] [address] [place] [phone] Jumpbasting Col[employer] Baster Nephrology 06/11/23 Design Engineering Manager Relationship Specialty Start Date End Date Zachariah Rome DO [address] [place] [phone] PCP - General 07/16/20 Cathy Watson DO [address] [place] [address] Consulting Physician Hematology and Oncology 08/02/22 Kojo Reis MD [address] [facility] [address] [place] [address] Nephrology 08/02/22 Mayela Prajapati MD 1 [facility] [address] [place] [phone] Jumpbasting Col[employer] Baster Nephrology 06/11/23 Design Engineering Manager Relationship Specialty Start Date End Date Zachariah Rome DO [address] [place] [address] PCP - General 07/16/20 Cathy Watson DO [address] [place] [address] Consulting Physician Hematology and Oncology 08/02/22 Kojo Reis MD [address] [facility] [address] [place], [place] [phone] Nephrology 08/02/22 Mayela Prajapati MD 1 [facility] [address] [place] [phone] [employer] Col[employer]aster Nephrology 06/11/23 Design Engineering Manager Relationship Specialty Start Date End Date Zachariah Rome DO [address] [place] [address] PCP - General 07/16/20 Cathy Watson DO [address] [place] [address] Consulting Physician Hematology and Oncology 08/02/22 Kojo Reis MD [address] [facility] [address] [place] [address] Nephrology 08/02/22 Mayela Prajapati MD 1 [facility] [address] [place] [phone] Jump[employer] Col[employer]aster Nephrology 06/11/23 Design Engineering Manager Relationship Specialty Start Date End Date Zachariah Rome DO [address] [place] [phone] PCP - General 07/16/20 Cathy Watson DO [address] [place] [address] Consulting Physician Hematology and Oncology 08/02/22 Kojo Reis MD [address] [facility] [address] [place] [address] Nephrology 08/02/22 Mayela Prajapati MD 1 [facility] [address] [place] [phone] [employer] Nephrology 06/11/23 Team Status: Active Member Role/Relationship Status Dates Dr. Zachariah Rome DO Primary care physician Active Team Status: Inactive Member Role/Relationship Status Dates Dr. Zachariah Rome DO Primary care physician Active Start: August 05, 2024 End: August 05, 2024 Dr. Zachariah Rome DO Referring Provider Acti ve Start: August 05, 2024 End: August 05, 2024 Dr. Lawrence Del Toro MD Attending physician Active Start: August 05, 2024 End: August 05, 2024 Team Status: Inactive Member Role/Relationship Status Dates Dr. Zachariah Rome DO Primary care physician Active Start: August 19, 2024 End: August 19, 2024 Dr. Lawrence Del Toro MD Attending physician Active Start: August 19, 2024 End: August 19, 2024 Dr. Lawrence Del Toro MD Referring Provider Active Start: August 19, 2024 End: August 19, 2024 Team Status: Active Member Role/Relationship Status Dates Dr. Zachariah Rome DO Primary care physician Active Start: August 19, 2024 Dr. Lawrence Del Toro MD Attending physician Active Start: August 19, 2024 Dr. Lawrence Del Toro MD Referring Provider Active Start: August 19, 2024 Dr. Lawrence Del Toro MD Nurse Practitioner Active Start: August 19, 2024 Team Status: Inactive Member Role/Relationship Status Dates Dr. Zachariah Rome DO Primary care physician Active Start: August 27, 2024 End: August 27, 2024 Dr. Zachariah Rome DO Referring Provider Acti ve Start: August 27, 2024 End: August 27, 2024 Dr. Lawrence Del Toro MD Attending physician Active Start: August 27, 2024 End: August 27, 2024 Team Status: Inactive Member Role/Relationship Status Dates Dr. Zachariah Rome DO Primary care physician Active Start: September 16, 2024 End: September 16, 2024 Nancy MORLEY PA-C Attending physician Active Start: September 16, 2024 End: September 16, 2024 Nancy MORLEY PA-C Referring Provider Active Start: September 16, 2024 End: September 16, 2024 Team Status: Inactive Member Role/Relationship Status Dates Dr. Zachariah Rome DO Primary care physician Active Start: September 17, 2024 End: September 17, 2024 Dr. Zachariah Rome DO Referring Provider Acti ve Start: September 17, 2024 End: September 17, 2024 Dr. Lawrence Del Toro MD Attending physician Active Start: September 17, 2024 End: September 17, 2024 Team Status: Inactive Member Role/Relationship Status Dates Dr. Zachariah Rome DO Primary care physician Active Start: October 15, 2024 End: October 15, 2024 Dr. Zachariah Rome DO Referring Provider Active Start: October End: October 15, 2024 MILLI Nelson Attending physician Active S tart: October 15, 2024 End: October 15, 2024 Team Status: Inactive Member Role/Relationship Status Dates Dr. Zachariah Rome DO Primary care physician Active Start: October 20, 2024 End: October 20, 2024 Dr. Zachariah Rome DO Referring Provider Active Start: October End: October 20, 2024 Dr. Lawrence Del Toro MD Attending physician Active Start: October 20, 2024 End: October 20, 2024 Team Status: Inactive Member Role/Relationship Status Dates Dr. Zachariah Rome DO Primary care physician Active Start: October 27, 2024 End: October 27, 2024 Dr. Zachariah Rome DO Referring Provider Active Start: October End: October 27, 2024 Connie Catalan PATIENT TRANSITION SPECIALIST, PATIENT TRANSITION SPECIALIST-C Attending physician Active Start: October 27, 2024 End: October 27, 2024 Team Status: Active Member Role/Relationship Status Dates Dr. Zachariah Rome DO Primary care physician Active Start: October 31, 2024 Connie Catalan PATIENT TRANSITION SPECIALIST, PATIENT TRANSITION SPECIALIST-C Attending physician Active Start: October 31, 2024 Connie Catalan PATIENT TRANSITION SPECIALIST, PATIENT TRANSITION SPECIALIST-C Referring Provider Active Start: October 31, 2024 Design Engineering Manager Relationship Specialty Start Date End Date Zachariah Rome DO [address] [place] [phone] PCP - General 07/16/20 Cathy Watson DO [address] [facility] [address] [place] [address] Consulting Physician Hematology and Oncology 08/02/22 Kojo Reis MD [address] [facility] [address] [place] [address] Nephrology 08/02/22 Mayela Prajapati MD [address] [place] [phone] [employer] Nephrology 06/11/23 Team Status: Active Member Role/Relationship Status Dates Dr. Zachariah Rome DO Primary care physician Active Start: November 06, 2024 Dr. Pretty Matos DO Attending physician Acti ve Start: November 06, 2024 Dr. Pretty Matos DO Referring Provider Activ e Start: November 06, 2024 Team Status: Inactive Member Role/Relationship Status Dates Dr. Zachariah Rome DO Primary care physician Active Start: November 10, 2024 End: November 10, 2024 Dr. Zachariah Rome DO Referring Provider Acti ve Start: November 10, 2024 End: November 10, 2024 Dr. Pretty Matos DO Attending physician Acti ve Start: November 10, 2024 End: November 10, 2024 Team Status: Active Member Role/Relationship Status Dates Dr. Zachariah Rome DO Primary care physician Active Start: November 10, 2024 Dr. Pretty Matos DO Attending physician Acti ve Start: November 10, 2024 Design Engineering Manager Relationship Specialty Start Date End Date Zachariah Rome DO [address] [place] [phone] PCP - General 07/16/20 Cathy Watson DO [address] [facility] [address] [place] [address] Consulting Physician Hematology and Oncology 08/02/22 Kojo Reis MD [address] [place] [address] [address] [place] [address] Nephrology 08/02/22 Mayela Prajapati MD [address] [place] [phone] Jumpbasting Col[employer] Baster Nephrology 06/11/23 Design Engineering Manager Relationship Specialty Start Date End Date Zachariah Rome DO [address] [place] [phone] PCP - General 07/16/20 Cathy Watson DO [address] [facility] [address] [place] [address] Consulting Physician Hematology and Oncology 08/02/22 Kojo Reis MD [address] [place] [address] Nephrology 08/02/22 Mayela Prajapati MD 1 [facility] [address] [place] [address] Jumpbasting Collar Baster Nephrology 06/11/23 Design Engineering Manager Relationship Specialty Start Date End Date Zachariah Rome DO [address] [place] [address] PCP - General 07/16/20 Cathy Watson DO [address] [place] [address] Consulting Physician Hematology and Oncology 08/02/22 Kojo Reis MD [address] [facility] [address] [place] [address] Nephrology 08/02/22 Mayela Prajapati MD 1 [facility] [address] [place] [phone] Jumpbasting Collar Baster Nephrology 06/11/23 Design Engineering Manager Relationship Specialty Start Date End Date Zachariah Rome DO [address] [place] [address] PCP - General 07/16/20 Cathy Watson DO [address] [place] [address] Consulting Physician Hematology and Oncology 08/02/22 Kojo Reis MD [address] [place] [address] Nephrology 08/02/22 Mayela Prajapati MD 1 [facility] [address] [place] [address] Jumpbasting Collar Baster Nephrology 06/11/23 Design Engineering Manager Relationship Specialty Start Date End Date Zachariah Rome DO [address] [place] [address] PCP - General 07/16/20 Cathy Watson DO [address] [place], [place] [phone] Consulting Physician Hematology and Oncology 08/02/22 Kojo Reis MD [address] [facility] [address] [place] [address] Nephrology 08/02/22 Mayela Prajapati MD 1 [facility] [address] [place] [phone] Jumpbasting Collar Baster Nephrology 06/11/23 Design Engineering Manager Relationship Specialty Start Date End Date Zachariah Rome DO [address] [place] [address] PCP - General 07/16/20 Cathy Watson DO [address] [place] [address] Consulting Physician Hematology and Oncology 08/02/22 Kojo Reis MD [address] [facility] [address] [place] [address] Nephrology 08/02/22 Mayela Prajapati MD 1 [facility] [address] [place] [address] Jumpbasting Collar Baster Nephrology 06/11/23 Design Engineering Manager Relationship Specialty Start Date End Date Zachariah Rome DO [address] [place] [phone] PCP - General 07/16/20 Cathy Watson DO [address] [place] [address] Consulting Physician Hematology and Oncology 08/02/22 Kojo Reis MD [address] [facility] [address] [place] [address] Nephrology 08/02/22 Mayela Prajapati MD 1 [facility] [address] [place] [address] Jumpbasting Collar Baster Nephrology 06/11/23 Design Engineering Manager Relationship Specialty Start Date End Date Zachariah Rome DO [address] [place] [phone] PCP - General 07/16/20 Cathy Watson DO [address] [place] [address] Consulting Physician Hematology and Oncology 08/02/22 Kojo Reis MD [address] [facility] [address] [place] [address] Nephrology 08/02/22 Mayela Prajapati MD 1 [facility] [address] [place] [address] Jumpbasting Collar Baster Nephrology 06/11/23 Design Engineering Manager Relationship Specialty Start Date End Date Zachariah Rome DO [address] [place] [phone] PCP - General 07/16/20 Cathy Watson DO [address] [facility] [address] [place] [address] Consulting Physician Hematology and Oncology 08/02/22 Kojo Reis MD [address] [facility] [address] [place] [address] Nephrology 08/02/22 Mayela Prajapati MD 1 [facility] [address] [place] [phone] Jumpbasting Col[employer] Baster Nephrology 06/11/23 Goals (unrecognized section and content) Goals may be documented in a n alternate sectionGoals may be documented in an alternate sectionGoals may be documented in an alternate section Source Comments (unrecognize d section and content) In the event this informatio n is protected by the Federal Confidentiality of Alcohol and Drug Abuse Patient Records regulations: The Federal rules restrict any use of the information to criminally investigate or prosecute any alcohol or drug abuse patient.[facility] the event this information is protected by the Federal Confidentiality of Alcohol and Drug Abuse Patient Records regulations: The Federal rules restrict any use of the information to criminally investigate or prosecute any alcohol or drug abuse patient.[facility] the event this information is protected by the Federal Confidentiality of Alcohol and Drug Abuse Patient Records regulations: The Federal rules restrict any use of the information to criminally investigate or prosecute any alcohol or drug abuse patient.[facility] the event this information is protected by the Federal Confidentiality of Alcohol and Drug Abuse Patient Records regulations: The Federal rules restrict any use of the information to criminally investigate or prosecute any alcohol or drug abuse patient.[facility] the event this information is protected by the Federal Confidentiality of Alcohol and Drug Abuse Patient Records regulations: The Federal rules restrict any use of the information to criminally investigate or prosecute any alcohol or drug abuse patient.[facility] FOR RECORDS PERTAINING TO PATIENTS WHO ARE [...] BE BASED ON THE PRIMARY CLINICAL RECORDS. [facility] [employer] [facility]. provides no warranty or guarantee of the accuracy or completeness of information in this document.
== END | disposition home or self-care (01) ==
LOC: OPUS 09:53
PROVIDERS: PCP Family Medicine; Referring Provider Student in an Organized Health Care Education/Training Program; Visit Provider Student in an Organized Health Care Education/Training Program
DX: N63.20 Unspecified lump in the left breast, unspecified quadrant (principal)
CPT/HCPCS: 76642